=== PATIENT | female | born 1945 | race Caucasian/White ===

== ENCOUNTER → 2018-12-03 09:30 | Outpatient (CLI) | payer MEDICARE, BC, SELFPAY ==
--- NOTE | 2018-10-22 13:45 | EKG12_ITS ---
Test Reason : Blood Pressure : / mmHG Vent. Rate : 061 BPM Atrial Rate : 061 BPM P-R Int : 154 ms QRS Dur : 086 ms QT Int : 428 ms P-R-T Axes : 049 -23 -03 degrees QTc Int : 430 ms Normal sinus rhythm Inferior infarct , age undetermined Abnormal ECG Confirmed by JUAN LIVE, REN ([id number]), film editor DANIEL GAFFNEY ([id number]) on 10/24/2018 11:15:56 AM Referred By: Jacob Stinson Confirmed By:REN MARTINEZ MD
[2018-10-22 13:48] VITALS: BP 129/63; PULSE 65; RESP 18; TEMP 36.5; O2SAT 98; BMI 32.3
[2018-10-22 14:23] LABS: Absolute Lymphocyte Count 1.92 X10^3/ul (0.83-4.51); Absolute Neutrophil Count 3.3 X10^3/uL (2.0-7.7); Basophil# 0.02 X10^3/uL; Basophil% 0.3 % (0-1); Eosinophil# 0.13 X10^3/uL; Eosinophils% 2.2 % (0-5); Hematocrit 31.5 % (37-47); Hemoglobin 9.5 g/dl (12.0-15.0); Lymphocyte # 1.92 X10^3/ul (4.0); Lymphocyte % 32.9 % (19-41); Mean Corp Hgb Conc 30.2 g/gl (32-36); Mean Corpuscular Hgb 23.2 pg (27.0-32.0); Mean Corpuscular Volume 76.8 fL (81-99); Mean Platelet Vol. 9.3 fl (6.2-12.0); Monocyte# 0.49 X10^3/uL; Monocyte% 8.4 % (0-10); Neutrophil # 3.27 X10^3/uL (2.7-7.7); Neutrophil % 56.2 % (47-70); Platelet Count 324 K/mm3 (150-450); RBC Distribution Width CV 16.8 % (11.6-14.6); RBC Distribution Width SD 47.4 fl (35.1-43.9); White Blood Count 5.8 K/mm3 (4.4-11.0)
[2018-10-22 14:24] LABS: POSITIVE COUNT NO; POSITIVE DIFFERENTIAL NO; POSITIVE MORPHOLOGY NO
[2018-10-22 14:38] LABS: Hemoglobin A1c 8.4 % (4.2-6.3)
[2018-10-22 15:02] LABS: Anion Gap 8 (5-15); BUN 19 mg/dL (7-18); BUN/Creat Ratio 22.2 RATIO (10-20); Calcium,Total 8.9 mg/dL (8.5-10.1); Chloride 107 mmol/L (98-107); Creatinine, Serum 0.86 mg/dL (0.55-1.02); EST Glomerular Filtration Rate 69 mL/min (>60); Est Glom Filt Rate - Afr Amer 84 mL/min (>60); Glucose 96 mg/dL (74-106); Potassium 4.6 mmol/L (3.5-5.1); Sodium Level 139 mmol/L (136-145)
--- NOTE | 2018-11-07 10:27 | CASEMGMT ---
Attempted to contact patient to discuss discharge needs after upcoming surgery. No answer on cell phone, voicemail left asking for a call back. Alberta Charles LPN Clinical Support
--- NOTE | 2018-11-07 10:35 | CASEMGMT ---
Patient returned call regarding upcoming surgery. Per patient, surgery was canceled yesterday. Alberta Charles LPN Clinical Support
== END ==
PROVIDERS: Anesthesiology; Family Provider Family Medicine; PCP Family Medicine; Referring Provider Orthopaedic Surgery; Visit Provider Orthopaedic Surgery
DX: Z01.818 Encounter for other preprocedural examination (principal); Z53.9 Procedure and treatment not carried out, unspecified reason
CPT/HCPCS: 80048; 83036; 84443; 85025; 87081; 93005

== ENCOUNTER → 2019-01-27 12:42 | Outpatient (CLI) | payer MEDICARE, BC, SELFPAY ==
[2018-10-22 13:48] VITALS: BMI 32.3
--- NOTE | 2019-01-27 12:55 | MRI_ITS ---
STUDY: MRI LUMBAR SPINE WITHOUT CONTRAST REASON FOR EXAM: Female, 73 years old. Low back pain x50 years. TECHNIQUE: Standardized fat and water weighted pulse sequences were obtained in the sagittal and axial planes. COMPARISON: None FINDINGS: T11-T12: (Sagittal only). Minimal anterior wedging of T11 superior endplate. Minimal anterior marginal spurs. Normal T11 inferior endplate and T12 superior endplate. Mild disc space height narrowing. Tiny posterior bulging disc. Mild central canal stenosis with an AP canal diameter of 8.6 mm. Normal bilateral intervertebral foramina. T12-L1: (Sagittal only). Minimal anterior marginal spurs. Normal endplates. Mild disc space height narrowing. Normal central canal and bilateral intervertebral neural foramina. Normal lumbar lordosis. There is no substantial scoliosis. Normal conus medullaris that terminates at the mid L1 vertebral body level. L1-2: Normal endplates. Normal disc height and morphology. Normal central canal and bilateral arm recesses. Mild bilateral degenerative facet arthropathy. Normal bilateral intervertebral neural foramina. Benign focal fatty infiltration of the L1 and L2 vertebral bodies. L2-3: Normal endplates. Normal disc height and morphology. Normal central canal and bilateral lateral recesses. Mild asymmetric degenerative facet arthropathy, left greater than right. Normal bilateral intervertebral neural foramina. L3-4: Normal endplates. Moderately pronounced disc space height narrowing. Normal central canal. Moderate asymmetric degenerative facet arthropathy. Normal bilateral intervertebral neural foramina. L4-5: Normal endplates. Mild disc space height narrowing. Postsurgical absence of the spinous processes and lamina. Normal central canal and bilateral lateral recesses. Mild asymmetric degenerative facet arthropathy. Normal bilateral intervertebral foramina. L5-S1: Normal endplates. Moderate disc space height narrowing. Normal central canal and bilateral lateral recesses. Mild degenerative facet arthropathy. Normal bilateral intervertebral neural foramina. Normal visualized sacral ala. Normal visualized paraspinous soft tissue structures. MRI/Spine Lumbar (Routine) IMPRESSION: 1. No MRI evidence of lumbar extruded disc fragment, spinal stenosis or nerve root displacement. 2. Moderately pronounced L5 3 L4 degenerative disc space height narrowing and moderate asymmetric degenerative facet arthropathy. 3. Mild L4-L5 disc space height narrowing with postsurgical absence of the spinous processes and lamina. 4. Mild asymmetric degenerative facet arthropathy of the L4-L5 and L5-S1 facet joints. Electronically Signed: Connor Granados MD at 15:48 EDT , Service support ,
== END ==
PROVIDERS: Family Provider Family Medicine; PCP Family Medicine; Referring Provider Anesthesiology Pain Medicine; Visit Provider Anesthesiology Pain Medicine
DX: M54.9 Dorsalgia, unspecified (principal); R29.898 Other symptoms and signs involving the musculoskeletal system
CPT/HCPCS: 72148

== ENCOUNTER → 2019-02-05 09:57 | Outpatient (CLI) | payer MEDICARE, BC, SELFPAY ==
[2018-10-22 13:48] VITALS: BMI 32.3
[2019-02-05 11:30] LABS: Absolute Neutrophil Count 4.3 X10^3/uL (2.0-7.7); Basophil# 0.01 X10^3/uL; Basophil% 0.2 % (0-1); Eosinophil# 0.13 X10^3/uL; Hematocrit 38.4 % (37-47); Hemoglobin 12.1 g/dl (12.0-15.0); Lymphocyte % 25.6 % (19-41); Mean Corp Hgb Conc 31.5 g/gl (32-36); Mean Corpuscular Hgb 25.9 pg (27.0-32.0); Mean Corpuscular Volume 82.1 fL (81-99); Mean Platelet Vol. 10.2 fl (6.2-12.0); Monocyte# 0.49 X10^3/uL; Monocyte% 7.4 % (0-10); Neutrophil # 4.31 X10^3/uL (2.7-7.7); Neutrophil % 64.6 % (47-70); Platelet Count 299 K/mm3 (150-450); RBC Distribution Width SD 53.5 fl (35.1-43.9); Red Blood Count 4.68 M/mm3 (4.2-5.4); White Blood Count 6.7 K/mm3 (4.4-11.0)
[2019-02-05 11:31] LABS: POSITIVE COUNT NO; POSITIVE DIFFERENTIAL NO; POSITIVE MORPHOLOGY NO
[2019-02-05 11:51] LABS: Anion Gap 3 (5-15); BUN 20 mg/dL (7-18); BUN/Creat Ratio 21.1 RATIO (10-20); Calcium,Total 9.3 mg/dL (8.5-10.1); Chloride 104 mmol/L (98-107); Creatinine, Serum 0.95 mg/dL (0.55-1.02); EST Glomerular Filtration Rate 61 mL/min (>60); Est Glom Filt Rate - Afr Amer 74 mL/min (>60); Glucose 133 mg/dL (74-106); Potassium 4.8 mmol/L (3.5-5.1); Sodium Level 136 mmol/L (136-145)
== END ==
PROVIDERS: Family Provider Family Medicine; PCP Family Medicine; Referring Provider Physician Assistant Surgical; Visit Provider Physician Assistant Surgical
DX: Z01.818 Encounter for other preprocedural examination (principal)
CPT/HCPCS: 36415; 80048; 85025

== ENCOUNTER → 2019-02-25 14:33 | Outpatient (CLI) | payer MEDICARE, BC, SELFPAY ==
[2018-10-22 13:48] VITALS: BMI 32.3
[2019-02-25 16:06] LABS: Absolute Neutrophil Count 4.8 X10^3/uL (2.0-7.7); Basophil# 0.02 X10^3/uL; Basophil% 0.3 % (0-1); Eosinophil# 0.17 X10^3/uL; Eosinophils% 2.4 % (0-5); Hematocrit 32.3 % (37-47); Lymphocyte % 21.3 % (19-41); Mean Corpuscular Hgb 26.6 pg (27.0-32.0); Mean Corpuscular Volume 85.9 fL (81-99); Mean Platelet Vol. 9.8 fl (6.2-12.0); Monocyte# 0.55 X10^3/uL; Monocyte% 7.8 % (0-10); NRBC Flagged by Analyzer 0 % (0-5); Neutrophil # 4.75 X10^3/uL (2.7-7.7); Neutrophil % 67.6 % (47-70); Platelet Count 371 K/mm3 (150-450); RBC Distribution Width CV 16.6 % (11.6-14.6); Red Blood Count 3.76 M/mm3 (4.2-5.4)
[2019-02-25 17:10] LABS: Erythrocyte Sedimentation Rate 27 mm/hr (0-30)
== END ==
PROVIDERS: Family Provider Family Medicine; PCP Family Medicine; Referring Provider Specialist; Visit Provider Specialist
DX: Z96.652 Presence of left artificial knee joint (principal)
CPT/HCPCS: 36415; 85025; 85652; 86140

== ENCOUNTER 2019-03-04 09:00 | Outpatient (RCR) | payer MEDICARE, BC, SELFPAY ==
[2018-10-22 13:48] VITALS: BMI 32.3
--- NOTE | 2019-02-21 13:09 | HP.PTEVAL ---
Patient's Visit Information YUNG HERNANDEZ is a 73 year old F referred to Physical Therapy by CAM Copeland with a diagnosis of L TKR s/p 02-18-19. Date of Evaluation: 02/21/19 Physical Therapist: SELVIN Rao - Visit Plan Frequency: 3x /Week Duration: 2 Months Plan: 3X/ week for 8 weekd for L knee AROM, stretching , strengthening, gait training, stairs, transfers, and functional monility with HEP and ice as needed. - Subjective Findings: Pt had surgery last Sunday02-18-19. She got out of the hospital on the . Dr Ramsey did the surgery. She is back home. [place] in a [place] with a finished basement. She has 3 steps into the home with a railing. SHe is managing that fine at home. Transfers out of a chair are a little difficult. She took 2 oxy at 11:20. Her sister is staying with her for awhile. She is doing exercises at home QS, GS, AP's. She has not done the heels slides yet or leg hang down. - Pain L knee pain Pain Intensity (Out of 10): 6 - Objective Observation: pt looks very pale and is tired... thought she had some low blood sugar and ate some smarties during the eval. Sit to stand: pt uses B UE's and kicks her L leg out to stand up. L knee ext -6 from full extension. L knee flexion 60 degrees. Gait: walks with a rolling walker with decreased step length on the L and decreased heel to toe gait pattern. Pt is unable to do a SLR indep... needs mod A to help. Supine to sit: mod A for L LE and for trunk. Nu-step L1 X 10 min to increase ROM - Goals Goal 1:: I HEP Goal Time Frame: 6-8 Weeks Goal 2:: Be able to walk without an antalgic gait with least restrictive device Goal Time Frame: 6-8 Weeks Goal 3:: Increase L knee AROM 0-120 degrees L knee flexion Goal Time Frame: 6-8 Weeks Goal 4:: Be able to go up and down the stairs with 1 hand rail recip motion with SBA Goal Time Frame: 6-8 Weeks - Rehabilitation Potential Rehabilitation Potential: Good - Anticipated Interventions Thank you for the opportunity to evaluate your patient. For Medicare and Medicare HMO plans, please review the plan of care and approve it. It will need to be FAXED BACK to us at [phone] for Medicare purposes. For Medicare only, by signing this I certify the plan of care. Please let me know if there are questions or concerns regarding this plan of care. Physician Signature: Date:
--- NOTE | 2019-05-27 11:10 | HP.PTDCSUM ---
HP - PT D/C Summary It has been my pleasure to treat YUNG HERNANDEZ under orders from Srini Navarrete PA-C, for the diagnosis of L TKR s/p 02-18-19 for a total of 4 visit(s). Discharge Date: 05/27/19 Please see the following information for a summary of their discharge status. - Subjective Subjective: Pt reports that she has 1-2 days of her antibiotic yet. Saw PA yesterday and he was not concerned about the infection. Pt icing at home regularly. - Pain L knee pain Pain Intensity (Out of 10): 3 - Objective Objective/Function: Pt is still very red along incisions. Very warm to touch. Encouraged pt to watch/monitor this area closely and call doctor when out of antibiotic if redness/heat remain. Pt is progressing well w/no pain during PT. Pt amb w/walker in dept. Sometimes using cane at home. Reviewed proper cane use and proper heel to toe gait pattern w/pt. Pt is measuring greater than 90 degrees flexion. Doing well. - Goals Goal 1:: I HEP Goal 2:: Be able to walk without an antalgic gait with least restrictive device Goal 3:: Increase L knee AROM 0-120 degrees L knee flexion Goal 4:: Be able to go up and down the stairs with 1 hand rail recip motion with SBA - Plan Plan: Pt is switching PT depts to [facility] d/t her sister going to [facility] for therapy as well and can give pt a ride if they schedule together. 3X/ week for 8 weekd for L knee AROM, stretching , strengthening, gait training, stairs, transfers, and functional monility with HEP and ice as needed. - D/C Information Discharge Comments: DC PT If there are questions or concerns regarding this patient's physical therapy, please feel free to call me at [phone]. Thank you for the referral of this patient. Sincerely, Alyson Leal, MPT
== END 2019-03-04 19:00 | disposition home or self-care (01) ==
LOC: PT 09:00
PROVIDERS: Family Provider Family Medicine; PCP Family Medicine; Referring Provider Physician Assistant Surgical; Visit Provider Physician Assistant Surgical
DX: M17.12 Unilateral primary osteoarthritis, left knee (principal); M21.162 Varus deformity, not elsewhere classified, left knee
CPT/HCPCS: 97110; 97161

== ENCOUNTER → 2020-04-27 16:06 | Outpatient (CLI) | payer MEDICARE, BC, SELFPAY ==
[2018-10-22 13:48] VITALS: BMI 32.3
[2020-04-27 17:08] LABS: Absolute Lymphocyte Count 2.14 X10^3/uL (0.83-4.51); Absolute Neutrophil Count 3.6 X10^3/uL (2.0-7.7); Basophil# 0.03 X10^3/uL; Basophil% 0.5 % (0-1); Eosinophil# 0.16 X10^3/uL; Eosinophils% 2.5 % (0-5); Hematocrit 38.6 % (37-47); Hemoglobin 12.3 g/dL (12.0-15.0); Lymphocyte # 2.14 X10^3/ul (4.0); Lymphocyte % 33.4 % (19-41); Mean Corp Hgb Conc 31.9 g/dL (32-36); Mean Corpuscular Hgb 27.4 pg (27.0-32.0); Mean Platelet Vol. 9.7 fl (6.2-12.0); Monocyte# 0.46 X10^3/uL; Monocyte% 7.2 % (0-10); NRBC Flagged by Analyzer 0 % (0-5); Neutrophil % 56.1 % (47-70); Platelet Count 349 K/mm3 (150-450); RBC Distribution Width CV 13.5 % (11.6-14.6); RBC Distribution Width SD 42.2 fl (35.1-43.9); Red Blood Count 4.49 M/mm3 (4.2-5.4); White Blood Count 6.4 K/mm3 (4.4-11.0)
[2020-04-27 17:40] LABS: AST(SGOT) 13 U/L (15-37); Alanine Aminotransfer ALT/SGPT 25 U/L (13-56); Albumin, Serum 3.5 g/dL (3.2-5.0); Alkaline Phosphatase 58 U/L (45-117); Anion Gap 5 (5-15); BUN 17 mg/dL (7-18); BUN/Creat Ratio 16.2 RATIO (10-20); Calcium,Total 9.6 mg/dL (8.5-10.1); Chloride 107 mmol/L (98-107); Creatinine, Serum 1.05 mg/dL (0.55-1.02); EST Glomerular Filtration Rate 55 mL/min (>60); Est Glom Filt Rate - Afr Amer 66 mL/min (>60); Globulin 3.6 g/dL (2.2-4.2); Glucose 72 mg/dL (74-106); Potassium 4.4 mmol/L (3.5-5.1); Protein, Total 7.1 g/dL (6.4-8.2); Sodium Level 139 mmol/L (136-145); Thyroid Stim Hormone (TSH) 1.35 uIU/mL (0.358-3.74)
[2020-04-28 09:14] LABS: Hepatitis C Antibody Non-Reactive (Nonreactive); Vitamin D,25 Hydroxy 62.8 ng/mL
== END ==
PROVIDERS: Visit Provider Family Medicine Geriatric Medicine
DX: E11.9 Type 2 diabetes mellitus without complications (principal); I10 Essential (primary) hypertension; E55.9 Vitamin D deficiency, unspecified; Z13.89 Encounter for screening for other disorder
CPT/HCPCS: 36415; 80053; 82306; 84443; 85025; 86803

== ENCOUNTER → 2020-07-22 16:54 | Outpatient (CLI) | payer MEDICARE, BC, SELFPAY ==
--- NOTE | 2020-07-22 16:58 | MRI_ITS ---
STUDY: MRI CERVICAL SPINE WITHOUT CONTRAST REASON FOR EXAM: Female, 75 years old. L neck pain into head TECHNIQUE: Standardized fat and water weighted pulse sequences were obtained in the sagittal and axial planes. COMPARISON: X-ray dated 05/24/2020. FINDINGS: Normal foramen magnum and brainstem-cervical cord junction. Normal cervical lordosis. C2-3: There is minimal disc space narrowing and endplate spondylosis. There is no significant disc herniation, central canal or foraminal stenosis. C3-4: There is mild disc space narrowing and endplate spondylosis. There is mild disc osteophyte complex with mild central canal stenosis. Uncovertebral and facet arthropathy with mild right and mild left foraminal stenosis. C4-5: There is moderate disc space narrowing and endplates spondylosis. Mild disc osteophyte complex with mild central canal stenosis. Uncovertebral arthropathy with moderate right and moderate left foraminal stenosis. C5-6: There is moderate disc space narrowing and endplates spondylosis. Moderate disc osteophyte complex with moderate central canal stenosis. Uncovertebral arthropathy with mild right and moderate left foraminal stenosis. C6-7: There is mild disc space narrowing and endplates spondylosis. Mild disc osteophyte complex with mild central canal stenosis. Uncovertebral arthropathy with mild right and minimal left foraminal stenosis. C7-T1: There is minimal disc space narrowing and endplate spondylosis. There is no significant disc herniation, central canal or foraminal stenosis. There is 1 cm hemangioma at T1. Normal cervical cord. MRI/Spine Cervical (Routine) IMPRESSION: C4/C5: Moderate right and moderate left foraminal status. C5/C6: Moderate central canal stenosis. Moderate left foraminal stenosis. Electronically Signed: Emerson Najera MD at 12:06 EST Tel , Service support ,
== END ==
PROVIDERS: PCP Family Medicine Geriatric Medicine; Referring Provider Anesthesiology Pain Medicine; Visit Provider Anesthesiology Pain Medicine
DX: M54.2 Cervicalgia (principal); R51.9 Headache, unspecified
CPT/HCPCS: 72141

== ENCOUNTER → 2020-07-28 13:23 | Outpatient (CLI) | payer MEDICARE, BC, SELFPAY ==
[2020-07-28 17:35] LABS: Absolute Lymphocyte Count 1.88 X10^3/uL (0.83-4.51); Basophil# 0.02 X10^3/uL; Basophil% 0.4 % (0-1); Eosinophil# 0.18 X10^3/uL; Eosinophils% 3.3 % (0-5); Hematocrit 38.8 % (37-47); Hemoglobin 12.1 g/dL (12.0-15.0); Lymphocyte # 1.88 X10^3/ul (4.0); Lymphocyte % 34.5 % (19-41); Mean Corp Hgb Conc 31.2 g/dL (32-36); Mean Corpuscular Hgb 27.9 pg (27.0-32.0); Mean Corpuscular Volume 89.4 fL (81-99); Mean Platelet Vol. 10.3 fl (6.2-12.0); Monocyte# 0.38 X10^3/uL; NRBC Flagged by Analyzer 0 % (0-5); Neutrophil # 2.98 X10^3/uL (2.7-7.7); Neutrophil % 54.6 % (47-70); Platelet Count 312 K/mm3 (150-450); RBC Distribution Width SD 45.5 fl (35.1-43.9); Red Blood Count 4.34 M/mm3 (4.2-5.4); White Blood Count 5.5 K/mm3 (4.4-11.0)
[2020-07-28 17:47] LABS: Vitamin D,25 Hydroxy 59.5 ng/mL
[2020-07-28 17:55] LABS: ALB/GLOB Ratio 1.1 RATIO (0.9-2.4); AST(SGOT) 9 U/L (15-37); Alanine Aminotransfer ALT/SGPT 23 U/L (13-56); Albumin, Serum 3.5 g/dL (3.2-5.0); Alkaline Phosphatase 53 U/L (45-117); Anion Gap 6 (5-15); BUN 21 mg/dL (7-18); BUN/Creat Ratio 23.1 RATIO (10-20); Calcium,Total 9.3 mg/dL (8.5-10.1); Chloride 105 mmol/L (98-107); Creatinine, Serum 0.91 mg/dL (0.55-1.02); EST Glomerular Filtration Rate 64 mL/min (>60); Est Glom Filt Rate - Afr Amer 78 mL/min (>60); Globulin 3.1 g/dL (2.2-4.2); Glucose 104 mg/dL (74-106); Potassium 4.5 mmol/L (3.5-5.1); Protein, Total 6.6 g/dL (6.4-8.2); Sodium Level 141 mmol/L (136-145); Thyroid Stim Hormone (TSH) 1.24 uIU/mL (0.358-3.74)
== END ==
PROVIDERS: PCP Family Medicine Geriatric Medicine; Visit Provider Family Medicine Geriatric Medicine
DX: E11.65 Type 2 diabetes mellitus with hyperglycemia (principal); I10 Essential (primary) hypertension; E55.9 Vitamin D deficiency, unspecified
CPT/HCPCS: 36415; 80053; 82306; 84443; 85025

== ENCOUNTER → 2020-10-26 15:59 | Outpatient (CLI) | payer MEDICARE, BC, SELFPAY ==
[2020-10-26 17:06] LABS: Absolute Lymphocyte Count 1.87 X10^3/uL (0.83-4.51); Absolute Neutrophil Count 3.7 X10^3/uL (2.0-7.7); Basophil# 0.04 X10^3/uL; Basophil% 0.6 % (0-1); Eosinophil# 0.24 X10^3/uL; Eosinophils% 3.8 % (0-5); Hematocrit 38.2 % (37-47); Hemoglobin 12.3 g/dL (12.0-15.0); Lymphocyte # 1.87 X10^3/ul (4.0); Lymphocyte % 29.6 % (19-41); Mean Corp Hgb Conc 32.2 g/dL (32-36); Mean Corpuscular Hgb 28.5 pg (27.0-32.0); Mean Corpuscular Volume 88.4 fL (81-99); Mean Platelet Vol. 10.2 fl (6.2-12.0); Monocyte# 0.42 X10^3/uL; Monocyte% 6.6 % (0-10); NRBC Flagged by Analyzer 0 % (0-5); Neutrophil # 3.73 X10^3/uL (2.7-7.7); Neutrophil % 59.1 % (47-70); Platelet Count 333 K/mm3 (150-450); RBC Distribution Width CV 13.6 % (11.6-14.6); RBC Distribution Width SD 44.3 fl (35.1-43.9); Red Blood Count 4.32 M/mm3 (4.2-5.4); White Blood Count 6.3 K/mm3 (4.4-11.0)
[2020-10-26 17:17] LABS: Vitamin D,25 Hydroxy 54.3 ng/mL
[2020-10-26 17:26] LABS: AST(SGOT) 11 U/L (15-37); Alanine Aminotransfer ALT/SGPT 24 U/L (13-56); Albumin, Serum 3.3 g/dL (3.2-5.0); Alkaline Phosphatase 51 U/L (45-117); Anion Gap 7 (5-15); BUN 19 mg/dL (7-18); BUN/Creat Ratio 17.9 RATIO (10-20); Calcium,Total 9.2 mg/dL (8.5-10.1); Chloride 104 mmol/L (98-107); Creatinine, Serum 1.06 mg/dL (0.55-1.02); EST Glomerular Filtration Rate 54 mL/min (>60); Est Glom Filt Rate - Afr Amer 65 mL/min (>60); Globulin 3.4 g/dL (2.2-4.2); Glucose 150 mg/dL (74-106); Potassium 4.3 mmol/L (3.5-5.1); Protein, Total 6.7 g/dL (6.4-8.2); Sodium Level 138 mmol/L (136-145); Thyroid Stim Hormone (TSH) 0.93 uIU/mL (0.358-3.74)
== END ==
PROVIDERS: PCP Family Medicine Geriatric Medicine; Visit Provider Family Medicine Geriatric Medicine
DX: E11.65 Type 2 diabetes mellitus with hyperglycemia (principal); I10 Essential (primary) hypertension; E55.9 Vitamin D deficiency, unspecified
CPT/HCPCS: 36415; 80053; 82306; 84443; 85025

== ENCOUNTER → 2020-12-20 12:05 | Outpatient (CLI) | payer MEDICARE, BC, SELFPAY ==
--- NOTE | 2020-12-20 12:15 | RAD_ITS ---
STUDY: X-RAY - CERVICAL SPINE REASON FOR EXAM: Female, 75 years old. FALL/NECK PAIN TECHNIQUE: 3 view(s) of the cervical spine were obtained. COMPARISON: None FINDINGS: Normal anterior atlantoaxial articulation. Normal odontoid process. There is straightening of the normal cervical lordosis. There is multi-level endplate spondylosis. There is multi-level degenerative disc disease with multilevel disc space narrowing. Normal visualized intervertebral neuroforamina. There are atherosclerotic vascular calcifications of the carotid arteries. RAD/Cerv Spine 2 or 3 Views IMPRESSION: Straightening of the normal cervical lordosis. Multilevel disc space narrowing and spondylosis. Electronically Signed: Romie Suárez MD at 12:41 EDT , Service support ,
== END ==
PROVIDERS: PCP Family Medicine Geriatric Medicine; Referring Provider Anesthesiology Pain Medicine; Visit Provider Anesthesiology Pain Medicine
DX: M54.2 Cervicalgia (principal); W19.XXXA Unspecified fall, initial encounter
CPT/HCPCS: 72040

== ENCOUNTER → 2020-12-24 10:31 | Outpatient (CLI) | payer MEDICARE, BC, SELFPAY ==
[2020-12-24 12:23] LABS: Absolute Lymphocyte Count 1.57 X10^3/uL (0.83-4.51); Absolute Neutrophil Count 5.9 X10^3/uL (2.0-7.7); Basophil# 0.03 X10^3/uL; Basophil% 0.4 % (0-1); Eosinophil# 0.07 X10^3/uL; Eosinophils% 0.9 % (0-5); Hematocrit 39.4 % (37-47); Hemoglobin 12.3 g/dL (12.0-15.0); Lymphocyte # 1.57 X10^3/ul (0.83-4.51); Lymphocyte % 19.4 % (19-41); Mean Corp Hgb Conc 31.2 g/dL (32-36); Mean Corpuscular Hgb 28.3 pg (27.0-32.0); Mean Corpuscular Volume 90.8 fL (81-99); Mean Platelet Vol. 9.5 fl (6.2-12.0); Monocyte# 0.51 X10^3/uL; Monocyte% 6.3 % (0-10); NRBC Flagged by Analyzer 0 % (0-5); Neutrophil # 5.88 X10^3/uL (2.7-7.7); Neutrophil % 72.8 % (47-70); Platelet Count 365 K/mm3 (150-450); RBC Distribution Width CV 14.2 % (11.6-14.6); Red Blood Count 4.34 M/mm3 (4.2-5.4); White Blood Count 8.1 K/mm3 (4.4-11.0)
[2020-12-24 12:47] LABS: AST(SGOT) 12 U/L (15-37); Alanine Aminotransfer ALT/SGPT 23 U/L (13-56); Albumin, Serum 3.5 g/dL (3.2-5.0); Alkaline Phosphatase 50 U/L (45-117); Anion Gap 7 (5-15); BUN 20 mg/dL (7-18); BUN/Creat Ratio 18.5 RATIO (10-20); Calcium,Total 9.4 mg/dL (8.5-10.1); Chloride 102 mmol/L (98-107); Creatinine, Serum 1.08 mg/dL (0.55-1.02); EST Glomerular Filtration Rate 53 mL/min (>60); Est Glom Filt Rate - Afr Amer 64 mL/min (>60); Globulin 3.6 g/dL (2.2-4.2); Glucose 121 mg/dL (74-106); Protein, Total 7.1 g/dL (6.4-8.2); Sodium Level 138 mmol/L (136-145); Thyroid Stim Hormone (TSH) 0.83 uIU/mL (0.358-3.74)
== END ==
PROVIDERS: PCP Family Medicine Geriatric Medicine; Visit Provider Family Medicine Geriatric Medicine
DX: N39.0 Urinary tract infection, site not specified (principal); R53.1 Weakness
CPT/HCPCS: 36415; 80053; 84443; 85025; 87077; 87086; 87088; 87186

== ENCOUNTER → 2020-12-24 11:55 | Outpatient (CLI) | payer MEDICARE, BC, SELFPAY ==
--- NOTE | 2020-12-24 11:58 | CT_ITS ---
STUDY: CT BRAIN WITHOUT CONTRAST REASON FOR EXAM: Female, 75 years old. HEAD INJURY RADIATION DOSAGE (If Supplied By Facility): CTDIvol = ( 44.99 ) mGy, DLP = ( 796.11 ) mGycm TECHNIQUE: Transaxial CT imaging of the brain was performed without administration of intravenous contrast material. Individualized dose optimization techniques were used for this CT. COMPARISON: No relevant priors. FINDINGS: Normal soft tissue structures. There is a 1.3 cm x 0.8 cm densely calcified nodule arising from the medial aspect of the interhemispheric fissure overlying the high right parietal lobe suggests a possible meningioma. There is mild cerebral atrophy with widening of the extra-axial spaces and ventricular dilatation. There are areas of decreased attenuation within the white matter tracts of the supratentorial brain, consistent with microvascular disease changes. Normal basal ganglia and thalami. Normal brainstem. Normal cerebellum. There is no intracranial hemorrhage. There are no findings of an acute ischemic infarction. Normal visualized paranasal sinuses. CT/Brain/Head without Contrast IMPRESSION: Chronic involutional changes of the brain. Findings suggestive of a 1.3 cm x 0.8 cm meningioma arising from the medial aspect of the interhemispheric fissure. Electronically Signed: Romie Suárez MD at 12:15 EDT , Service support ,
--- NOTE | 2020-12-24 11:59 | RAD_ITS ---
STUDY: X-RAY - CERVICAL SPINE REASON FOR EXAM: Female, 75 years old. HEAD INJURY TECHNIQUE: 3 view(s) of the cervical spine were obtained. COMPARISON: 05/24/2020 FINDINGS: Normal anterior atlantoaxial articulation. Normal odontoid process. There is straightening of the normal cervical lordosis. There is multi-level endplate spondylosis. There is multi-level degenerative disc disease with multilevel disc space narrowing. Normal visualized intervertebral neuroforamina. The soft tissue structures are unremarkable. RAD/Cerv Spine 2 or 3 Views IMPRESSION: Moderate degenerative disc disease with straightening of the normal lordotic curvature. MRI may be useful. Electronically Signed: Brad Carranza MD at 16:54 EDT Tel , Service support ,
== END ==
PROVIDERS: PCP Family Medicine Geriatric Medicine; Referring Provider Family Medicine Geriatric Medicine; Visit Provider Family Medicine Geriatric Medicine
DX: M54.2 Cervicalgia (principal); S09.90XA Unspecified injury of head, initial encounter; X58.XXXA Exposure to other specified factors, initial encounter; Y93.9 Activity, unspecified; Y92.9 Unspecified place or not applicable; Y99.9 Unspecified external cause status; N39.0 Urinary tract infection, site not specified; R53.1 Weakness
CPT/HCPCS: 36415; 70450; 72040; 80053; 84443; 85025; 87077; 87086; 87088; 87186

== ENCOUNTER → 2021-04-28 17:29 | Outpatient (CLI) | payer MEDICARE, BC, SELFPAY ==
[2021-04-28 17:44] LABS: Absolute Lymphocyte Count 2.65 X10^3/uL (0.83-4.51); Absolute Neutrophil Count 4.5 X10^3/uL (2.0-7.7); Basophil# 0.04 X10^3/uL; Basophil% 0.5 % (0-1); Eosinophil# 0.25 X10^3/uL; Eosinophils% 3.1 % (0-5); Hemoglobin 12.8 g/dL (12.0-15.0); Lymphocyte # 2.65 X10^3/ul (0.83-4.51); Lymphocyte % 32.8 % (19-41); Mean Corpuscular Hgb 27.9 pg (27.0-32.0); Mean Corpuscular Volume 87.1 fL (81-99); Mean Platelet Vol. 9.6 fl (6.2-12.0); Monocyte# 0.66 X10^3/uL; Monocyte% 8.2 % (0-10); NRBC Flagged by Analyzer 0 % (0-5); Neutrophil # 4.47 X10^3/uL (2.7-7.7); Neutrophil % 55.2 % (47-70); Platelet Count 319 K/mm3 (150-450); RBC Distribution Width CV 14.5 % (11.6-14.6); RBC Distribution Width SD 45.7 fl (35.1-43.9); Red Blood Count 4.59 M/mm3 (4.2-5.4); White Blood Count 8.1 K/mm3 (4.4-11.0)
[2021-04-28 18:37] LABS: ALB/GLOB Ratio 0.9 RATIO (0.9-2.4); AST(SGOT) 19 U/L (15-37); Alanine Aminotransfer ALT/SGPT 31 U/L (13-56); Albumin, Serum 3.4 g/dL (3.2-5.0); Alkaline Phosphatase 54 U/L (45-117); Anion Gap 8 (5-15); BUN 27 mg/dL (7-18); BUN/Creat Ratio 21.3 RATIO (10-20); Calcium,Total 9.4 mg/dL (8.5-10.1); Chloride 103 mmol/L (98-107); Creatinine, Serum 1.27 mg/dL (0.55-1.02); EST Glomerular Filtration Rate 44 mL/min (>60); Est Glom Filt Rate - Afr Amer 53 mL/min (>60); Globulin 3.8 g/dL (2.2-4.2); Glucose 118 mg/dL (74-106); Potassium 5.3 mmol/L (3.5-5.1); Protein, Total 7.2 g/dL (6.4-8.2); Sodium Level 135 mmol/L (136-145)
[2021-04-28 18:42] LABS: Vitamin D,25 Hydroxy 72.1 ng/mL
== END ==
PROVIDERS: PCP Family Medicine Geriatric Medicine; Visit Provider Family Medicine Geriatric Medicine
DX: E11.65 Type 2 diabetes mellitus with hyperglycemia (principal); I10 Essential (primary) hypertension; E55.9 Vitamin D deficiency, unspecified
CPT/HCPCS: 36415; 80053; 82306; 84443; 85025

== ENCOUNTER → 2021-05-03 13:36 | Outpatient (CLI) | payer MEDICARE, BC, SELFPAY ==
[2021-05-03 16:46] LABS: Anion Gap 8 (5-15); BUN 17 mg/dL (7-18); BUN/Creat Ratio 14.9 RATIO (10-20); Calcium,Total 9.5 mg/dL (8.5-10.1); Chloride 101 mmol/L (98-107); Creatinine, Serum 1.14 mg/dL (0.55-1.02); EST Glomerular Filtration Rate 49 mL/min (>60); Est Glom Filt Rate - Afr Amer 60 mL/min (>60); Glucose 165 mg/dL (74-106); Potassium 3.9 mmol/L (3.5-5.1); Sodium Level 136 mmol/L (136-145)
== END ==
PROVIDERS: PCP Family Medicine Geriatric Medicine; Visit Provider Family Medicine Geriatric Medicine
DX: I10 Essential (primary) hypertension (principal)
CPT/HCPCS: 36415; 80048

== ENCOUNTER → 2021-07-14 11:37 | Outpatient (CLI) | payer MEDICARE, BC, SELFPAY ==
[2021-07-14 12:51] LABS: Albumin, Serum 3.4 g/dL (3.2-5.0); BUN 22 mg/dL (7-18); BUN/Creat Ratio 22.6 RATIO (10-20); Calcium,Total 9.6 mg/dL (8.5-10.1); Chloride 102 mmol/L (98-107); Creatinine, Serum 0.97 mg/dL (0.55-1.02); EST Glomerular Filtration Rate 59 mL/min (>60); Est Glom Filt Rate - Afr Amer 72 mL/min (>60); Glucose 191 mg/dL (74-106); Phosphorus 3.6 mg/dL (2.5-4.9); Potassium 4.3 mmol/L (3.5-5.1); Sodium Level 136 mmol/L (136-145)
[2021-07-14 13:05] LABS: Protein, Urine (Random) 13.8 mg/dL (<11.9); Protein:Creat Ratio 96 mg/g CRE (0-200)
== END ==
PROVIDERS: PCP Family Medicine Geriatric Medicine; Visit Provider Internal Medicine Nephrology
DX: N18.31 Chronic kidney disease, stage 3a (principal)
CPT/HCPCS: 36415; 80069; 82570; 84156

== ENCOUNTER → 2021-07-25 14:21 | Outpatient (CLI) | payer MEDICARE, BC, SELFPAY ==
--- NOTE | 2021-07-25 14:25 | US_ITS ---
STUDY: RENAL ULTRASOUND - COMPLETE REASON FOR EXAM: Female, 76 years old. CKD 3 TECHNIQUE: Ultrasound evaluation of the kidneys was performed with real-time and static das-scale imaging. COMPARISON: None. FINDINGS: RIGHT KIDNEY: Normal location of the right kidney, which is normal in size. The right kidney measures 11.1x5.9 cm. There is a normal cortex of the right kidney. The renal cortex measures 1.2 cm. There is no right renal mass or cyst. There are no right renal calculi. There is no right hydronephrosis. DISTAL RIGHT URETER: There is non-visualization of the distal right ureter. There is no demonstrated right ureterovesical junction calculus. There is no demonstrated right ureteral jet. LEFT KIDNEY: Normal location of the left kidney, which is normal in size. The left kidney measures 11.9x5.1 cm. There is a normal cortex of the left kidney. The renal cortex measures 1.4 cm. There is no left renal mass or cyst. There are no left renal calculi. There is no left hydronephrosis. DISTAL LEFT URETER: There is non-visualization of the distal left ureter. There is no demonstrated left ureterovesical junction calculus. There is no demonstrated left ureteral jet. AORTA: There is obscuration of the abdominal aorta by overlying bowel gas I.V.C.: The IVC is obscured. BLADDER: The distended urinary bladder has a volume of 69 ml. There is a normal wall thickness of the distended urinary bladder. There is no demonstrated mass within the urinary bladder. There are no demonstrated bladder calculi. US/Kidney and Bladder IMPRESSION: There are no acute findings. Electronically Signed: Travis Camargo MD at 15:27 EST , Service support ,
== END ==
PROVIDERS: PCP Family Medicine Geriatric Medicine; Referring Provider Internal Medicine Nephrology; Visit Provider Internal Medicine Nephrology
DX: N18.31 Chronic kidney disease, stage 3a (principal)
CPT/HCPCS: 76770

== ENCOUNTER 2021-09-19 11:24 | Outpatient (CLI) | payer MEDICARE, BC, SELFPAY ==
[2021-09-19 12:28] LABS: Hematocrit 40.3 % (37-47); Hemoglobin 13.3 g/dL (12.0-15.0); Mean Corpuscular Hgb 28.4 pg (27.0-32.0); Mean Corpuscular Volume 86.1 fL (81-99); Mean Platelet Vol. 9.6 fl (6.2-12.0); Platelet Count 330 K/mm3 (150-450); RBC Distribution Width CV 14.1 % (11.6-14.6); RBC Distribution Width SD 43.8 fl (35.1-43.9); Red Blood Count 4.68 M/mm3 (4.2-5.4); White Blood Count 7.1 K/mm3 (4.4-11.0)
[2021-09-19 12:38] LABS: Albumin, Serum 3.6 g/dL (3.2-5.0); BUN 20 mg/dL (7-18); BUN/Creat Ratio 19.8 RATIO (10-20); Calcium,Total 9.8 mg/dL (8.5-10.1); Chloride 103 mmol/L (98-107); Creatinine, Serum 1.01 mg/dL (0.55-1.02); EST Glomerular Filtration Rate 57 mL/min (>60); Est Glom Filt Rate - Afr Amer 69 mL/min (>60); Glucose 184 mg/dL (74-106); Potassium 4.6 mmol/L (3.5-5.1); Sodium Level 137 mmol/L (136-145)
== END 2021-09-19 23:59 | disposition home or self-care (01) ==
LOC: POLAB3 11:25
PROVIDERS: PCP Family Medicine Geriatric Medicine; Visit Provider Internal Medicine Nephrology
DX: E11.22 Type 2 diabetes mellitus with diabetic chronic kidney disease (principal); E11.65 Type 2 diabetes mellitus with hyperglycemia; E11.40 Type 2 diabetes mellitus with diabetic neuropathy, unspecified; N18.31 Chronic kidney disease, stage 3a; Z71.3 Dietary counseling and surveillance
CPT/HCPCS: 36415; 80069; 83970; 85027; 97802

== ENCOUNTER 2021-10-10 11:00 | Outpatient (RCR) | payer MEDICARE, BC, SELFPAY | END 2021-10-10 23:59 | disposition home or self-care (01) | LOC: DC 11:00 | PROVIDERS: PCP Family Medicine Geriatric Medicine; Referring Provider Family Medicine Geriatric Medicine; Visit Provider Family Medicine Geriatric Medicine | DX: E11.65 Type 2 diabetes mellitus with hyperglycemia (principal); E11.22 Type 2 diabetes mellitus with diabetic chronic kidney disease; N18.31 Chronic kidney disease, stage 3a | CPT/HCPCS: 97802; 97803; G0108 ==

== ENCOUNTER 2021-10-20 08:22 | Outpatient (CLI) | payer MEDICARE, BC, SELFPAY ==
--- NOTE | 2021-10-20 08:24 | BI_ITS ---
MAMMOGRAPHY - BILATERAL SCREENING REASON FOR EXAM: Female, 76 years old. Routine annual screening examination. PERTINENT HISTORY: Non-contributory. TECHNIQUE: Digital bilateral breast manpreet (3D mammographic acquisition) in the CC and MLO projections. 2-D mediolateral oblique (MLO) and craniocaudad (CC) views of both breasts were obtained. CAD: Full Field Digital Mammography with Computer Added Detection was performed. COMPARISON: Comparison is made with prior examination dated 02/06/2019 and 03/23/2020. FINDINGS: Breast Composition: The breasts are almost entirely fatty. There are no dominant masses or suspicious calcifications. Stable calcified nodule in the inferior anterior medial aspect of the left breast. There is an 8.2 mm well-defined nodule in the upper central portion of the left breast with peripheral calcification. This is in keeping with a calcifying fibroadenoma. No other significant abnormalities are identified. There has been no significant change since the prior study. BI/SCRN MAMM (CAD)W/MANPREET BILAT IMPRESSION: Stable bilateral screening mammogram. Yearly follow-up mammogram recommended. (A) ASSESSMENT CATEGORY: BIRADS Category 2: Benign. A letter regarding these results will be sent to the patient by the facility within 30 days. Approximately 10% of breast cancers are not detected by mammography. A normal mammogram should not delay biopsy of a clinically suspicious abnormality. [id number] Electronically Signed: Romie Suárez MD at 9:29 EST ,
== END 2021-10-20 23:59 | disposition home or self-care (01) ==
LOC: OPBI 08:23
PROVIDERS: PCP Family Medicine Geriatric Medicine; Referring Provider Family Medicine Geriatric Medicine; Visit Provider Family Medicine Geriatric Medicine
DX: Z12.31 Encounter for screening mammogram for malignant neoplasm of breast (principal)
CPT/HCPCS: 77063; 77067

== ENCOUNTER 2021-10-24 10:24 | Outpatient (RCR) | payer MEDICARE, BC, SELFPAY | END 2021-11-10 23:59 | LOC: DC 10:24 | PROVIDERS: PCP Family Medicine Geriatric Medicine; Referring Provider Family Medicine Geriatric Medicine; Visit Provider Family Medicine Geriatric Medicine | DX: E11.22 Type 2 diabetes mellitus with diabetic chronic kidney disease (principal); E11.65 Type 2 diabetes mellitus with hyperglycemia; N18.31 Chronic kidney disease, stage 3a | CPT/HCPCS: 97803 ==

== ENCOUNTER 2021-10-27 16:00 | Outpatient (CLI) | payer MEDICARE, BC, SELFPAY ==
[2021-10-27 17:26] LABS: Absolute Lymphocyte Count 2.88 X10^3/uL (0.83-4.51); Absolute Neutrophil Count 4.7 X10^3/uL (2.0-7.7); Basophil# 0.03 X10^3/uL; Basophil% 0.4 % (0-1); Eosinophil# 0.14 X10^3/uL; Eosinophils% 1.7 % (0-5); Hematocrit 40.4 % (37-47); Hemoglobin 13.7 g/dL (12.0-15.0); Lymphocyte # 2.88 X10^3/ul (0.83-4.51); Lymphocyte % 34.2 % (19-41); Mean Corp Hgb Conc 33.9 g/dL (32-36); Mean Corpuscular Hgb 29.5 pg (27.0-32.0); Mean Corpuscular Volume 87.1 fL (81-99); Mean Platelet Vol. 10.1 fl (6.2-12.0); Monocyte# 0.66 X10^3/uL; Monocyte% 7.8 % (0-10); NRBC Flagged by Analyzer 0 % (0-5); Neutrophil # 4.68 X10^3/uL (2.7-7.7); Neutrophil % 55.7 % (47-70); Platelet Count 354 K/mm3 (150-450); RBC Distribution Width CV 14.4 % (11.6-14.6); RBC Distribution Width SD 45.9 fl (35.1-43.9); Red Blood Count 4.64 M/mm3 (4.2-5.4); White Blood Count 8.4 K/mm3 (4.4-11.0)
[2021-10-27 17:31] LABS: Vitamin D,25 Hydroxy 67.3 ng/mL
[2021-10-27 17:46] LABS: ALB/GLOB Ratio 1.1 RATIO (0.9-2.4); AST(SGOT) 12 U/L (15-37); Alanine Aminotransfer ALT/SGPT 25 U/L (13-56); Albumin, Serum 3.8 g/dL (3.2-5.0); Alkaline Phosphatase 55 U/L (45-117); Anion Gap 7 (5-15); BUN 19 mg/dL (7-18); BUN/Creat Ratio 17.8 RATIO (10-20); Calcium,Total 9.6 mg/dL (8.5-10.1); Chloride 101 mmol/L (98-107); Creatinine, Serum 1.07 mg/dL (0.55-1.02); EST Glomerular Filtration Rate 53 mL/min (>60); Est Glom Filt Rate - Afr Amer 64 mL/min (>60); Globulin 3.5 g/dL (2.2-4.2); Glucose 88 mg/dL (74-106); Potassium 4.4 mmol/L (3.5-5.1); Protein, Total 7.3 g/dL (6.4-8.2); Sodium Level 136 mmol/L (136-145); Thyroid Stim Hormone (TSH) 6.94 uIU/mL (0.358-3.74)
== END 2021-10-27 23:59 | disposition home or self-care (01) ==
LOC: POLAB3 16:01
PROVIDERS: PCP Family Medicine Geriatric Medicine; Visit Provider Family Medicine Geriatric Medicine
DX: E11.65 Type 2 diabetes mellitus with hyperglycemia (principal); E55.9 Vitamin D deficiency, unspecified; I10 Essential (primary) hypertension
CPT/HCPCS: 36415; 80053; 82306; 84443; 85025

== ENCOUNTER 2021-12-07 11:00 | Outpatient (RCR) | payer MEDICARE, BC, SELFPAY | END 2021-12-10 23:59 | LOC: DC 11:00 | PROVIDERS: PCP Family Medicine Geriatric Medicine; Referring Provider Family Medicine Geriatric Medicine; Visit Provider Family Medicine Geriatric Medicine | DX: E11.22 Type 2 diabetes mellitus with diabetic chronic kidney disease (principal); E11.65 Type 2 diabetes mellitus with hyperglycemia; N18.31 Chronic kidney disease, stage 3a | CPT/HCPCS: G0108 ==

== ENCOUNTER → 2022-02-21 | Outpatient (CLI) | payer MEDICARE, BC, SELFPAY ==
--- NOTE | 2022-02-21 11:37 | RAD_ITS ---
STUDY: X-RAY - ABDOMEN/PELVIS REASON FOR EXAM: Female, 76 years old. Intermittent diarrhea and constipation for a couple months. Intermittent abdominal pain. TECHNIQUE: AP supine and upright views of the abdomen and pelvis. COMPARISON: None. FINDINGS: Normal visualized lung bases. There is an unremarkable bowel gas pattern. Air and feces are seen throughout the colon without evidence of obstruction or distention. There is no small bowel dilatation. There is no demonstrated free abdominal air. The visualized liver, spleen and kidneys are grossly normal in size and morphology. There is a surgical clip in the left upper quadrant. There are focal densities in the represent vascular calcifications or granulomata within the spleen. Normal soft tissue structures. There are diffuse degenerative changes of the visualized lumbar spine. RAD/Abd Inc Decub and/or Erect IMPRESSION: Normal x-ray examination of the abdomen and pelvis. Electronically Signed: Justino Fletcher DO at 23:29 EDT ,
[2022-02-21 13:23] LABS: Anion Gap 7 (5-15); BUN 24 mg/dL (7-18); BUN/Creat Ratio 26.3 RATIO (10-20); Calcium,Total 9.8 mg/dL (8.5-10.1); Chloride 99 mmol/L (98-107); Creatinine, Serum 0.91 mg/dL (0.55-1.02); EST Glomerular Filtration Rate 64 mL/min (>60); Est Glom Filt Rate - Afr Amer 77 mL/min (>60); Glucose 133 mg/dL (74-106); Potassium 4.3 mmol/L (3.5-5.1); Sodium Level 133 mmol/L (136-145)
== END | disposition home or self-care (01) ==
LOC: POLAB3 11:30 → RAD 11:31
PROVIDERS: PCP Family Medicine Geriatric Medicine; Visit Provider Family Medicine Geriatric Medicine
DX: R10.9 Unspecified abdominal pain (principal); N18.31 Chronic kidney disease, stage 3a
CPT/HCPCS: 36415; 74019; 80048

== ENCOUNTER → 2022-05-04 | Outpatient (CLI) | payer MEDICARE, BC, SELFPAY ==
[2022-05-04 11:59] LABS: Absolute Lymphocyte Count 1.98 X10^3/uL (0.83-4.51); Absolute Neutrophil Count 3.9 X10^3/uL (2.0-7.7); Basophil# 0.04 X10^3/uL; Basophil% 0.6 % (0-1); Eosinophil# 0.29 X10^3/uL; Eosinophils% 4.4 % (0-5); Hematocrit 41.4 % (37-47); Hemoglobin 13.4 g/dL (12.0-15.0); Lymphocyte # 1.98 X10^3/ul (0.83-4.51); Lymphocyte % 29.7 % (19-41); Mean Corp Hgb Conc 32.4 g/dL (32-36); Mean Corpuscular Hgb 27.5 pg (27.0-32.0); Mean Corpuscular Volume 84.8 fL (81-99); Monocyte# 0.49 X10^3/uL; Monocyte% 7.4 % (0-10); NRBC Flagged by Analyzer 0 % (0-5); Neutrophil # 3.85 X10^3/uL (2.7-7.7); Neutrophil % 57.7 % (47-70); Platelet Count 351 K/mm3 (150-450); RBC Distribution Width CV 14.4 % (11.6-14.6); Red Blood Count 4.88 M/mm3 (4.2-5.4); White Blood Count 6.7 K/mm3 (4.4-11.0)
[2022-05-04 12:18] LABS: Vitamin D,25 Hydroxy 68.2 ng/mL
[2022-05-04 12:23] LABS: ALB/GLOB Ratio 0.8 RATIO (0.9-2.4); AST(SGOT) 15 U/L (15-37); Alanine Aminotransfer ALT/SGPT 29 U/L (13-56); Albumin, Serum 3.2 g/dL (3.2-5.0); Alkaline Phosphatase 58 U/L (45-117); Anion Gap 9 (5-15); BUN 26 mg/dL (7-18); BUN/Creat Ratio 26.5 RATIO (10-20); Calcium,Total 9.6 mg/dL (8.5-10.1); Chloride 104 mmol/L (98-107); Creatinine, Serum 0.98 mg/dL (0.55-1.02); EST Glomerular Filtration Rate 59 mL/min (>60); Est Glom Filt Rate - Afr Amer 71 mL/min (>60); Glucose 132 mg/dL (74-106); Potassium 4.6 mmol/L (3.5-5.1); Protein, Total 7.2 g/dL (6.4-8.2); Sodium Level 140 mmol/L (136-145)
== END | disposition home or self-care (01) ==
LOC: POLAB3 09:48
PROVIDERS: PCP Family Medicine Geriatric Medicine; Visit Provider Family Medicine Geriatric Medicine
DX: E55.9 Vitamin D deficiency, unspecified (principal); I10 Essential (primary) hypertension
CPT/HCPCS: 36415; 80053; 82306; 84443; 85025; 87086; 87088

== ENCOUNTER → 2022-08-21 | Outpatient (CLI) | payer MEDICARE, BC, SELFPAY ==
--- NOTE | 2022-08-21 14:29 | BI_ITS ---
MAMMOGRAPHY - BILATERAL DIAGNOSTIC REASON FOR EXAM: Female, 77 years old. One-week history of left breast lump. PERTINENT HISTORY: Non-contributory. TECHNIQUE: Digital bilateral breast esdras (3D mammographic acquisition) in the CC and MLO projections. 2-D mediolateral oblique (MLO) and craniocaudad (CC) views of both breasts were obtained. CAD: Full Field Digital Mammography with Computer Added Detection was performed. COMPARISON: Comparison is made with prior study dated 10/20/2021. FINDINGS: Breast Composition: The breasts are almost entirely fatty. Stable 8.2 mm well-defined nodule in the upper anterior central portion of the left breast. Fine calcific rim is seen. This corresponds to the palpable abnormality. Correlation with ultrasound is recommended. Stable densely calcified nodule along the anterior inferior medial aspect of the left breast. No other significant abnormalities are identified. BI/DIAG MAMM W/CAD, BILAT IMPRESSION: 8.2 mm well-defined nodule in the upper anterior central portion of left breast with fine calcific rim. Correlation with ultrasound is recommended. ASSESSMENT CATEGORY: BIRADS Category 0: Incomplete. Need additional imaging evaluation. A letter regarding these results will be sent to the patient by the facility within 30 days. Approximately 10% of breast cancers are not detected by mammography. A normal mammogram should not delay biopsy of a clinically suspicious abnormality. Electronically Signed: Romie Suárez MD at 15:44 EST ,
--- NOTE | 2022-08-21 14:29 | US_ITS ---
STUDY: ULTRASOUND BREAST - LEFT REASON FOR EXAM: Female, 77 years old. Palpable lump in the left breast. TECHNIQUE: Axial and longitudinal images of the LEFT breast were performed with a high resolution ultrasound transducer. # OF IMAGES: 6 COMPARISON: Comparison is made with prior mammogram done earlier today. FINDINGS: LEFT Breast: The abnormality corresponds to a 1 cm x 0.6 cm x 0.9 cm hypoechoic nodule with an anterior hypoechoic nodular density. This is not a typical cyst. This is at the 11 o''clock position in the breast at 11 cm from the nipple. Biopsy is recommended. US/Breast Limited Unilateral IMPRESSION: 1 cm x 0.9 cm x 0.6 cm complex cystic nodule with anterior hypoechoic density at the 11 o''clock position of the breast at 11 cm from nipple. Biopsy recommended. ASSESSMENT CATEGORY: BIRADS Category 4: Suspicious - Biopsy Should Be Considered. A letter regarding these results will be sent to the patient by the facility within 30 days. Electronically Signed: Romie Suárez MD at 9:39 EST ,
== END | disposition home or self-care (01) ==
PROVIDERS: PCP Family Medicine Geriatric Medicine; Visit Provider Family Medicine Geriatric Medicine
DX: N63.25 Unspecified lump in the left breast, overlapping quadrants (principal)
CPT/HCPCS: 76642; 77062; 77066; G0279

== ENCOUNTER → 2022-08-29 | Outpatient (CLI) | payer MEDICARE, BC, SELFPAY ==
--- NOTE | 2022-08-29 09:45 | CYST_PTH ---
PATIENT: YUNG HERNANDEZ LOC: [facility] U#:[id number] AGE/SX: 77/F ROOM: RE08/29/[address]: Dr. Mikayla Dukes MD : [id number] BED: DIS: 08/29/2022 SPEC #: [id number] RECD: 08/29/22 11:01 STATUS: SELAM REShellie #: [id number] TRINIDAD: 08/29/22 09:[address]: Mikayla Dukes DEPT: SURGICAL PATHOLOGY RECD BY: Angelika Red ENTERED: 08/29/22 12:42 SP TYPE: Cyst OTHR DR: Dr. Sumit Whipple MD Tissues: CYST Procedures: Surgery Specimen Level IV HEADER OPERATION: Excisional left breast biopsy PRE-OP DIAGNOSIS: Left breast mass TISSUE SUBMITTED: Left breast cyst 11 o?clock, 11 cm from nipple MICROSCOPIC DIAGNOSIS Left breast cyst, 11 o?clock, 11 cm from nipple, excisional biopsy: Fibrous cyst with focal fat necrosis, chronic inflammation and foreign body giant cell reaction and focal calcifications. Negative for atypia or malignancy. See comment. LANDON:viviana 08/30/2022 COMMENT Breast tissue is not identified in the specimen. Correlation with clinical, radiologic findings and appropriate follow up are necessary. Case has been reviewed in consultation with Dr. Monteiro who concurs with the above diagnosis. IDC:AM MICROSCOPIC DESCRIPTION Slides are reviewed. GROSS DESCRIPTION Received in fixative is one container labeled with the patient's name and designated left breast mass biopsy. The specimen consists of a piece of adipose tissue measuring 1.3 x 1.2 x 0.5 cm. The specimen is inked, bisected and submitted entirely in one cassette. / LANDON:viviana 08/29/2022 TC:5 CPT: 04160
== END | disposition home or self-care (01) ==
LOC: LABSPEC 11:45
PROVIDERS: PCP Family Medicine Geriatric Medicine; Visit Provider Surgery
DX: N63.22 Unspecified lump in the left breast, upper inner quadrant (principal)
CPT/HCPCS: 88304; 88305

== ENCOUNTER → 2022-11-01 | Outpatient (CLI) | payer MEDICARE, BC, SELFPAY ==
[2022-11-01 13:28] LABS: Absolute Lymphocyte Count 1.59 X10^3/uL (0.83-4.51); Absolute Neutrophil Count 4.2 X10^3/uL (2.0-7.7); Basophil# 0.03 X10^3/uL; Basophil% 0.5 % (0-1); Eosinophil# 0.25 X10^3/uL; Eosinophils% 3.8 % (0-5); Hemoglobin 12.8 g/dL (12.0-15.0); Lymphocyte # 1.59 X10^3/ul (0.83-4.51); Lymphocyte % 24.4 % (19-41); Mean Corpuscular Hgb 27.3 pg (27.0-32.0); Mean Corpuscular Volume 85.3 fL (81-99); Mean Platelet Vol. 10.5 fl (6.2-12.0); Monocyte# 0.46 X10^3/uL; Monocyte% 7.1 % (0-10); NRBC Flagged by Analyzer 0 % (0-5); Neutrophil # 4.16 X10^3/uL (2.7-7.7); Neutrophil % 63.7 % (47-70); Platelet Count 297 K/mm3 (150-450); RBC Distribution Width CV 14.6 % (11.6-14.6); RBC Distribution Width SD 44.9 fl (35.1-43.9); Red Blood Count 4.69 M/mm3 (4.2-5.4); White Blood Count 6.5 K/mm3 (4.4-11.0)
[2022-11-01 13:39] LABS: Vitamin D,25 Hydroxy 73.4 ng/mL
[2022-11-01 13:48] LABS: ALB/GLOB Ratio 1.1 RATIO (0.9-2.4); AST(SGOT) 18 U/L (15-37); Alanine Aminotransfer ALT/SGPT 24 U/L (13-56); Albumin, Serum 3.5 g/dL (3.2-5.0); Alkaline Phosphatase 59 U/L (45-117); Anion Gap 5 (5-15); BUN 23 mg/dL (7-18); BUN/Creat Ratio 25.2 RATIO (10-20); Calcium,Total 9.7 mg/dL (8.5-10.1); Chloride 105 mmol/L (98-107); Creatinine, Serum 0.91 mg/dL (0.55-1.02); EST Glomerular Filtration Rate 64 mL/min (>60); Est Glom Filt Rate - Afr Amer 77 mL/min (>60); Globulin 3.3 g/dL (2.2-4.2); Glucose 115 mg/dL (74-106); Potassium 4.5 mmol/L (3.5-5.1); Protein, Total 6.8 g/dL (6.4-8.2); Sodium Level 139 mmol/L (136-145); Thyroid Stim Hormone (TSH) 1.16 uIU/mL (0.358-3.74)
== END | disposition home or self-care (01) ==
LOC: POLAB3 10:19
PROVIDERS: PCP Family Medicine Geriatric Medicine; Visit Provider Family Medicine Geriatric Medicine
DX: I10 Essential (primary) hypertension (principal); E11.65 Type 2 diabetes mellitus with hyperglycemia; E55.9 Vitamin D deficiency, unspecified
CPT/HCPCS: 36415; 80053; 82306; 84443; 85025

== ENCOUNTER → 2023-04-18 | Outpatient (CLI) | payer MEDICARE, BC, SELFPAY ==
--- NOTE | 2023-04-18 16:26 | CT_ITS ---
STUDY: CT BRAIN WITHOUT CONTRAST REASON FOR EXAM: Female, 77 years old. HEADACHE RADIATION DOSAGE (If Supplied By Facility): CTDIvol = ( 44.99 ) mGy, DLP = ( 796.11 ) mGycm TECHNIQUE: Transaxial CT imaging of the brain was performed without administration of intravenous contrast material. Individualized dose optimization techniques were used for this CT. COMPARISON: CT brain December 24, 2020 FINDINGS: Right parafalcine calcified mass measures 12 x 9 mm in AP and transverse dimensions. Normal soft tissue structures. Normal calvarium. There is mild cerebral atrophy with widening of the extra-axial spaces and ventricular dilatation. There are areas of decreased attenuation within the white matter tracts of the supratentorial brain, consistent with microvascular disease changes. Normal basal ganglia and thalami. Normal brainstem. Normal cerebellum. Intracranial atherosclerosis. There is no intracranial hemorrhage. There are no findings of an acute ischemic infarction. Normal visualized paranasal sinuses. CT/Brain/Head without Contrast IMPRESSION: Right parafalcine calcified meningioma appears stable. No acute disease. Electronically Signed: hSayan Chacon MD at 17:18 EDT ,
[2023-04-18 18:20] LABS: Absolute Lymphocyte Count 2.57 X10^3/uL (0.83-4.51); Basophil# 0.03 X10^3/uL; Basophil% 0.4 % (0-1); Eosinophil# 0.26 X10^3/uL; Eosinophils% 3.5 % (0-5); Hematocrit 42.3 % (37-47); Hemoglobin 13.2 g/dL (12.0-15.0); Lymphocyte # 2.57 X10^3/ul (0.83-4.51); Lymphocyte % 34.6 % (19-41); Mean Corp Hgb Conc 31.2 g/dL (32-36); Mean Corpuscular Hgb 26.6 pg (27.0-32.0); Mean Corpuscular Volume 85.3 fL (81-99); Mean Platelet Vol. 10.1 fl (6.2-12.0); Monocyte# 0.56 X10^3/uL; Monocyte% 7.5 % (0-10); NRBC Flagged by Analyzer 0 % (0-5); Neutrophil # 3.98 X10^3/uL (2.7-7.7); Neutrophil % 53.7 % (47-70); Platelet Count 337 K/mm3 (150-450); RBC Distribution Width CV 14.6 % (11.6-14.6); RBC Distribution Width SD 44.7 fl (35.1-43.9); Red Blood Count 4.96 M/mm3 (4.2-5.4); White Blood Count 7.4 K/mm3 (4.4-11.0)
[2023-04-18 18:57] LABS: Anion Gap 5 (5-15); BUN 19 mg/dL (7-18); CRP < 2.90 mg/L (0.0-3.0); Calcium,Total 9.5 mg/dL (8.5-10.1); Chloride 103 mmol/L (98-107); EST Glomerular Filtration Rate 57 mL/min (>60); Est Glom Filt Rate - Afr Amer 69 mL/min (>60); Glucose 81 mg/dL (74-106); Potassium 4.6 mmol/L (3.5-5.1); Sodium Level 136 mmol/L (136-145); Thyroid Stim Hormone (TSH) 0.67 uIU/mL (0.358-3.74)
== END | disposition home or self-care (01) ==
PROVIDERS: PCP Family Medicine Geriatric Medicine; Referring Provider Family Medicine Geriatric Medicine; Visit Provider Family Medicine Geriatric Medicine
DX: R51.9 Headache, unspecified (principal); N18.31 Chronic kidney disease, stage 3a; R06.02 Shortness of breath; R53.83 Other fatigue
CPT/HCPCS: 36415; 70450; 80048; 84443; 85025; 86140

== ENCOUNTER → 2023-05-09 | Outpatient (CLI) | payer MEDICARE, BC, SELFPAY ==
[2023-05-09 11:24] LABS: Absolute Lymphocyte Count 1.86 X10^3/uL (0.83-4.51); Absolute Neutrophil Count 3.4 X10^3/uL (2.0-7.7); Basophil# 0.03 X10^3/uL; Basophil% 0.5 % (0-1); Eosinophil# 0.17 X10^3/uL; Eosinophils% 2.9 % (0-5); Hematocrit 36.1 % (37-47); Lymphocyte # 1.86 X10^3/ul (0.83-4.51); Lymphocyte % 31.5 % (19-41); Mean Corp Hgb Conc 33.2 g/dL (32-36); Mean Corpuscular Hgb 28.1 pg (27.0-32.0); Mean Corpuscular Volume 84.5 fL (81-99); Mean Platelet Vol. 9.5 fl (6.2-12.0); Monocyte# 0.45 X10^3/uL; Monocyte% 7.6 % (0-10); NRBC Flagged by Analyzer 0 % (0-5); Neutrophil # 3.39 X10^3/uL (2.7-7.7); Neutrophil % 57.3 % (47-70); Platelet Count 298 K/mm3 (150-450); RBC Distribution Width CV 14.8 % (11.6-14.6); RBC Distribution Width SD 45.7 fl (35.1-43.9); Red Blood Count 4.27 M/mm3 (4.2-5.4); White Blood Count 5.9 K/mm3 (4.4-11.0)
[2023-05-09 11:39] LABS: Vitamin D,25 Hydroxy 56.1 ng/mL
[2023-05-09 11:47] LABS: ALB/GLOB Ratio 1.1 RATIO (0.9-2.4); AST(SGOT) 27 U/L (15-37); Alanine Aminotransfer ALT/SGPT 32 U/L (13-56); Albumin, Serum 3.4 g/dL (3.2-5.0); Alkaline Phosphatase 51 U/L (45-117); Anion Gap 5 (5-15); BUN 25 mg/dL (7-18); BUN/Creat Ratio 25.5 RATIO (10-20); Calcium,Total 9.1 mg/dL (8.5-10.1); Chloride 105 mmol/L (98-107); Creatinine, Serum 0.98 mg/dL (0.55-1.02); EST Glomerular Filtration Rate 58 mL/min (>60); Est Glom Filt Rate - Afr Amer 71 mL/min (>60); Globulin 3.2 g/dL (2.2-4.2); Glucose 113 mg/dL (74-106); Potassium 4.5 mmol/L (3.5-5.1); Protein, Total 6.6 g/dL (6.4-8.2); Sodium Level 137 mmol/L (136-145); Thyroid Stim Hormone (TSH) 3.16 uIU/mL (0.358-3.74)
== END | disposition home or self-care (01) ==
LOC: POLAB3 09:07
PROVIDERS: PCP Family Medicine Geriatric Medicine; Visit Provider Family Medicine Geriatric Medicine
DX: E11.65 Type 2 diabetes mellitus with hyperglycemia (principal); E55.9 Vitamin D deficiency, unspecified; I10 Essential (primary) hypertension
CPT/HCPCS: 36415; 80053; 82306; 84443; 85025

== ENCOUNTER → 2023-07-17 | Outpatient (CLI) | payer MEDICARE, BC, SELFPAY ==
--- NOTE | 2023-07-17 12:23 | RAD_ITS ---
STUDY: X-RAY - PELVIS REASON FOR EXAM: Female, 78 years old. L BUTTOCK PAIN TECHNIQUE: One view of the pelvis was obtained. COMPARISON: Abdominal x-ray dated February 21, 2022 FINDINGS: Stable appearance of the left hip prosthetic components. No demonstrated acute fracture. Lower lumbar spine decompressive defects noted. There is a non-specific bowel gas pattern. Normal visualized soft tissue structures. Normal bilateral iliac wings, sacroiliac joints and visualized sacrum. Normal visualized bilateral superior and inferior pubic rami. Normal pubic symphysis. Normal ischial tuberosities. Normal visualized right femoral head. Normal right acetabulum. Normal right hip joint. RAD/Pelvis 1 or 2 Views IMPRESSION: 1. Stable appearance of the left hip prosthetic components. No demonstrated acute fracture. Lower lumbar spine decompressive defects noted. Electronically Signed: Chris Solomon MD at 9:54 EST ,
--- NOTE | 2023-07-17 12:30 | RAD_ITS ---
STUDY: X-RAY - LUMBAR SPINE REASON FOR EXAM: Female, 78 years old. LOW BACK PAIN TECHNIQUE: 5 view(s) of the lumbar spine were obtained. COMPARISON: None FINDINGS: Normal lumbar lordosis. There is no substantial scoliosis. There is a normal alignment of the vertebrae. Evidence of previous laminectomy at L5 and S1. There is diffuse demineralization with multi-level endplate spondylosis. There is multi-level degenerative disc disease with multi-level disc space narrowing. There is no demonstrated fracture. There is atherosclerotic calcification of the abdominal aorta without a demonstrated aneurysm. RAD/L/S Spine Min 4 Views IMPRESSION: Degenerative and postsurgical changes of the spine, as detailed above. Electronically Signed: Chava Reynolds MD at 10:01 EST ,
[2023-07-17 12:35] LABS: Absolute Lymphocyte Count 2.12 X10^3/uL (0.83-4.51); Absolute Neutrophil Count 3.6 X10^3/uL (2.0-7.7); Basophil# 0.04 X10^3/uL; Basophil% 0.6 % (0-1); Eosinophil# 0.19 X10^3/uL; Hematocrit 38.4 % (37-47); Hemoglobin 12.2 g/dL (12.0-15.0); Lymphocyte # 2.12 X10^3/ul (0.83-4.51); Lymphocyte % 33.1 % (19-41); Mean Corp Hgb Conc 31.8 g/dL (32-36); Mean Corpuscular Hgb 27.1 pg (27.0-32.0); Mean Corpuscular Volume 85.1 fL (81-99); Mean Platelet Vol. 9.5 fl (6.2-12.0); Monocyte# 0.49 X10^3/uL; Monocyte% 7.6 % (0-10); NRBC Flagged by Analyzer 0 % (0-5); Neutrophil # 3.55 X10^3/uL (2.7-7.7); Neutrophil % 55.4 % (47-70); Platelet Count 307 K/mm3 (150-450); RBC Distribution Width CV 14.4 % (11.6-14.6); RBC Distribution Width SD 44.7 fl (35.1-43.9); Red Blood Count 4.51 M/mm3 (4.2-5.4); White Blood Count 6.4 K/mm3 (4.4-11.0)
[2023-07-17 14:15] LABS: AST(SGOT) 16 U/L (15-37); Alanine Aminotransfer ALT/SGPT 26 U/L (13-56); Albumin, Serum 3.3 g/dL (3.2-5.0); Alkaline Phosphatase 55 U/L (45-117); Anion Gap 5 (5-15); BUN 13 mg/dL (7-18); BUN/Creat Ratio 13.2 RATIO (10-20); Calcium,Total 8.9 mg/dL (8.5-10.1); Chloride 101 mmol/L (98-107); Creatinine, Serum 0.99 mg/dL (0.55-1.02); EST Glomerular Filtration Rate 58 mL/min (>60); Est Glom Filt Rate - Afr Amer 70 mL/min (>60); Globulin 3.2 g/dL (2.2-4.2); Glucose 136 mg/dL (74-106); Potassium 4.5 mmol/L (3.5-5.1); Protein, Total 6.5 g/dL (6.4-8.2); Sodium Level 134 mmol/L (136-145)
== END | disposition home or self-care (01) ==
PROVIDERS: PCP Family Medicine Geriatric Medicine; Referring Provider Family Medicine Geriatric Medicine; Visit Provider Family Medicine Geriatric Medicine
DX: M54.50 Low back pain, unspecified (principal); M79.18 Myalgia, other site; I10 Essential (primary) hypertension; N39.0 Urinary tract infection, site not specified
CPT/HCPCS: 36415; 72110; 72170; 80053; 85025; 87086

== ENCOUNTER → 2023-07-31 | Outpatient (CLI) | payer MEDICARE, BC, SELFPAY ==
--- NOTE | 2023-07-31 06:45 | MRI_ITS ---
STUDY: MRI BRAIN WITHOUT CONTRAST REASON FOR EXAM: Female, 78 years old. MULTIPLE FALLS, NEURO DEFICIT TECHNIQUE: Standardized multiplanar fat and water weighted pulse sequences were obtained. COMPARISON: Head CT dated April 18, 2023 FINDINGS: There is mild cerebral atrophy with widening of the extra-axial spaces and ventricular dilatation. There are a limited number of small white matter hyperintensities, distributed throughout the deep white matter tracts of the cerebral hemispheres, consistent with mild chronic white matter ischemic changes. There is no evidence for recent intracranial ischemia or other cause of cytotoxic edema on diffusion weighted imaging (DWI). Normal T2* images of the brain without demonstrated susceptibility artifact. There is no demonstrated hemosiderin stain. Redemonstration of a densely calcified small benign meningioma to the right of the interhemispheric falx between the superior aspects of bilateral frontoparietal junctions. Normal bilateral basal ganglia. Normal thalami. There is no extra-axial fluid accumulation. Normal flow voids within the major intracranial circulation suggesting patency by spin echo criteria. Normal sella turcica, pituitary gland, infundibular stalk, optic chiasm and hypothalamus. Normal tectal plate and pineal gland. Normal midbrain, lani and medulla. Normal cerebellum. Normal basal cisterns. Normal bilateral temporal bones. Normal bilateral internal auditory canals. No demonstrated orbital abnormality, within the constraints of a routine brain study. Normal visualized paranasal sinuses. Normal calvarium and skull base. Normal visualized soft tissue structures. Normal visualized upper cervical spine. MRI/Brain without Contrast IMPRESSION: 1. Involutional and chronic ischemic changes of the brain, as described above. Electronically Signed: Chris Solomon MD at 10:47 EST ,
== END | disposition home or self-care (01) ==
LOC: MRI 06:38
PROVIDERS: PCP Family Medicine Geriatric Medicine; Referring Provider Family Medicine Geriatric Medicine; Visit Provider Family Medicine Geriatric Medicine
DX: R29.6 Repeated falls (principal)
CPT/HCPCS: 70551

== ENCOUNTER → 2023-11-07 | Outpatient (CLI) | payer MEDICARE, BC, SELFPAY ==
[2023-11-07 10:28] LABS: Absolute Lymphocyte Count 2.51 X10^3/uL (0.83-4.51); Absolute Neutrophil Count 4.4 X10^3/uL (2.0-7.7); Basophil# 0.02 X10^3/uL; Basophil% 0.3 % (0-1); Eosinophil# 0.27 X10^3/uL; Eosinophils% 3.4 % (0-5); Hematocrit 40.5 % (37-47); Lymphocyte # 2.51 X10^3/ul (0.83-4.51); Lymphocyte % 32.1 % (19-41); Mean Corp Hgb Conc 32.1 g/dL (32-36); Mean Corpuscular Hgb 26.7 pg (27.0-32.0); Mean Corpuscular Volume 83.2 fL (81-99); Mean Platelet Vol. 9.9 fl (6.2-12.0); Monocyte# 0.61 X10^3/uL; Monocyte% 7.8 % (0-10); NRBC Flagged by Analyzer 0 % (0-5); Neutrophil % 56.1 % (47-70); Platelet Count 303 K/mm3 (150-450); RBC Distribution Width CV 14.3 % (11.6-14.6); RBC Distribution Width SD 43.2 fl (35.1-43.9); Red Blood Count 4.87 M/mm3 (4.2-5.4); White Blood Count 7.8 K/mm3 (4.4-11.0)
[2023-11-07 11:13] LABS: ALB/GLOB Ratio 0.7 RATIO (0.9-2.4); AST(SGOT) 12 U/L (15-37); Alanine Aminotransfer ALT/SGPT 21 U/L (13-56); Albumin, Serum 2.8 g/dL (3.2-5.0); Alkaline Phosphatase 76 U/L (45-117); Anion Gap 5 (5-15); BUN 13 mg/dL (7-18); BUN/Creat Ratio 14.6 RATIO (10-20); Calcium,Total 9.1 mg/dL (8.5-10.1); Chloride 102 mmol/L (98-107); Creatinine, Serum 0.89 mg/dL (0.55-1.02); EST Glomerular Filtration Rate 65 mL/min (>60); Est Glom Filt Rate - Afr Amer 79 mL/min (>60); Globulin 3.8 g/dL (2.2-4.2); Glucose 187 mg/dL (74-106); Protein, Total 6.6 g/dL (6.4-8.2); Sodium Level 135 mmol/L (136-145); Thyroid Stim Hormone (TSH) 7.89 uIU/mL (0.358-3.74)
[2023-11-07 11:30] LABS: Vitamin D,25 Hydroxy 57.4 ng/mL
[2023-11-07 13:20] LABS: M R Staph aureus DNA By PCR Negative (Negative); Staph aureus DNA By PCR NEGATIVE (Negative)
[2023-11-07 13:21] LABS: Probe Check PASS; Specimen Processing Control PASS
== END | disposition home or self-care (01) ==
LOC: POLAB3 09:17
PROVIDERS: PCP Family Medicine Geriatric Medicine; Visit Provider Family Medicine Geriatric Medicine
DX: E11.65 Type 2 diabetes mellitus with hyperglycemia (principal); B95.62 Methicillin resistant Staphylococcus aureus infection as the cause of diseases classified elsewhere; I10 Essential (primary) hypertension; E55.9 Vitamin D deficiency, unspecified
CPT/HCPCS: 36415; 80053; 82306; 84443; 85025; 87070; 87077; 87186; 87205; 87640

== ENCOUNTER → 2023-11-19 | Outpatient (CLI) | payer MEDICARE, BC, SELFPAY ==
--- NOTE | 2023-11-19 12:11 | CT_ITS ---
STUDY: CT BRAIN WITHOUT CONTRAST REASON FOR EXAM: Female, 78 years old. Recent head injury due to a fall. Loss of consciousness. RADIATION DOSAGE (If Supplied By Facility): CTDIvol = ( 47.06 ) mGy, DLP = ( 837.39 ) mGycm TECHNIQUE: Transaxial CT imaging of the brain was performed without administration of intravenous contrast material. Individualized dose optimization techniques were used for this CT. COMPARISON: Comparison is made with prior study dated April 18, 2023. FINDINGS: Normal soft tissue structures. There is a 1.2 cm x 0.9 cm calcified density arising from the right side of the cerebral falx along the posterior right frontal lobe. This is suggestive of a calcified meningioma. This is unchanged. There is mild cerebral atrophy with widening of the extra-axial spaces and ventricular dilatation. There are areas of decreased attenuation within the white matter tracts of the supratentorial brain, consistent with microvascular disease changes. Normal basal ganglia and thalami. Normal brainstem. Normal cerebellum. There is no intracranial hemorrhage. There are no findings of an acute ischemic infarction. Atherosclerotic calcification of the vertebral arteries and cavernous portions of the internal carotid arteries bilaterally. Normal visualized paranasal sinuses. CT/Brain/Head without Contrast IMPRESSION: Chronic involutional changes of the brain. Stable right parafalcine calcified meningioma. Electronically Signed: Romie Suárez MD at 12:42 EDT ,
--- NOTE | 2023-11-19 12:25 | RAD_ITS ---
STUDY: X-RAY - RIGHT KNEE REASON FOR EXAM: Female, 78 years old. Pain. TECHNIQUE: 4 view(s) of the knee. COMPARISON: 01/16/2012 FINDINGS: Osteopenia with revision 3 component total knee arthroplasty unchanged in position or alignment. Small joint effusion. No complicating features. Vascular calcification. RAD/Knee 4 or More Views IMPRESSION: Stable uncomplicated total knee arthroplasty. Electronically Signed: Franky Singh MD at 10:04 EDT ,
--- NOTE | 2023-11-19 12:25 | RAD_ITS ---
STUDY: X-RAY - LEFT KNEE REASON FOR EXAM: Female, 78 years old. Pain. TECHNIQUE: 4 view(s) of the knee. COMPARISON: None. FINDINGS: Osteopenia with total knee arthroplasty, 3 component, in anatomic alignment. No complicating features identified. Normal soft tissues. RAD/Knee 4 or More Views IMPRESSION: Osteopenia with uncomplicated 3 component total knee arthroplasty. Electronically Signed: Franky Singh MD at 10:03 EDT ,
== END | disposition home or self-care (01) ==
LOC: CT 12:06
PROVIDERS: PCP Family Medicine Geriatric Medicine; Visit Provider Family Medicine Geriatric Medicine
DX: S09.90XA Unspecified injury of head, initial encounter (principal); M25.561 Pain in right knee; M25.562 Pain in left knee; X58.XXXA Exposure to other specified factors, initial encounter
CPT/HCPCS: 70450; 73564

== ENCOUNTER → 2024-03-04 | Outpatient (CLI) | payer MEDICARE, BC, SELFPAY | END | disposition home or self-care (01) | PROVIDERS: PCP Family Medicine Geriatric Medicine; Referring Provider Family Medicine Geriatric Medicine; Visit Provider Family Medicine Geriatric Medicine | DX: N39.0 Urinary tract infection, site not specified (principal) | CPT/HCPCS: 87077; 87086; 87088; 87186 ==

== ENCOUNTER → 2024-05-14 | Outpatient (CLI) | payer MEDICARE, BC, SELFPAY ==
[2024-05-14 13:23] LABS: Absolute Lymphocyte Count 1.97 X10^3/uL (0.83-4.51); Absolute Neutrophil Count 4.7 X10^3/uL (2.0-7.7); Basophil# 0.03 X10^3/uL; Basophil% 0.4 % (0-1); Eosinophil# 0.33 X10^3/uL; Eosinophils% 4.4 % (0-5); Hemoglobin 13.4 g/dL (12.0-15.0); Lymphocyte # 1.97 X10^3/ul (0.83-4.51); Lymphocyte % 26.3 % (19-41); Mean Corp Hgb Conc 31.9 g/dL (32-36); Mean Corpuscular Volume 84.7 fL (81-99); Monocyte# 0.46 X10^3/uL; Monocyte% 6.1 % (0-10); NRBC Flagged by Analyzer 0 % (0-5); Neutrophil # 4.68 X10^3/uL (2.7-7.7); Neutrophil % 62.4 % (47-70); Platelet Count 284 K/mm3 (150-450); RBC Distribution Width CV 14.7 % (11.6-14.6); Red Blood Count 4.96 M/mm3 (4.2-5.4); White Blood Count 7.5 K/mm3 (4.4-11.0)
[2024-05-14 14:04] LABS: Vitamin D,25 Hydroxy 56.7 ng/mL
[2024-05-14 14:08] LABS: ALB/GLOB Ratio 0.9 RATIO (0.9-2.4); AST(SGOT) 19 U/L (15-37); Alanine Aminotransfer ALT/SGPT 26 U/L (13-56); Albumin, Serum 3.4 g/dL (3.2-5.0); Alkaline Phosphatase 66 U/L (45-117); Anion Gap 8 (5-15); BUN 16 mg/dL (7-18); BUN/Creat Ratio 13.3 RATIO (10-20); Calcium,Total 9.6 mg/dL (8.5-10.1); Chloride 106 mmol/L (98-107); EST Glomerular Filtration Rate 46 mL/min (>60); Est Glom Filt Rate - Afr Amer 56 mL/min (>60); Globulin 3.7 g/dL (2.2-4.2); Glucose 182 mg/dL (74-106); Potassium 4.7 mmol/L (3.5-5.1); Protein, Total 7.1 g/dL (6.4-8.2); Sodium Level 138 mmol/L (136-145); Thyroid Stim Hormone (TSH) 0.468 uIU/mL (0.358-3.740)
== END | disposition home or self-care (01) ==
LOC: POLAB3 13:08
PROVIDERS: PCP Family Medicine Geriatric Medicine; Visit Provider Family Medicine Geriatric Medicine
DX: I10 Essential (primary) hypertension (principal); E11.65 Type 2 diabetes mellitus with hyperglycemia; E03.9 Hypothyroidism, unspecified; E55.9 Vitamin D deficiency, unspecified
CPT/HCPCS: 36415; 80053; 82306; 84443; 85025

== ENCOUNTER 2024-07-03 11:30 | Outpatient (RCR) | payer MEDICARE, BC, SELFPAY ==
--- NOTE | 2024-03-12 12:58 | HP.PTEVAL ---
Patient's Visit Information Visit Information Visit Information: YUNG HERNANDEZ is a 78 year old F referred to Physical Therapy by Dr. Sumit Whipple MD with a diagnosis of Abnormal Gait. Date of Evaluation: 03/12/24 Physical Therapist: Jeanne Dc DPT Visit Plan Frequency: 2-3x /Week Duration: 4 Weeks Plan: Focus on LE and core strength/stabilization- proprioception and functional mobility HEP Given IE: Kitchen Sink: sit to stand, marching, hip flexion/extn/abd, HR/TR Subjective Subjective: Patient reports that she has fallen 5-6x this year- to the point where she has had to call the squad. She is going on a cruise at the end of March and she needs to get some strength back. She has dizziness and lightheadedness when she gets up. The MD is working with her medications to address those. She sometimes has to use the walker but not everyday. When she starts to lose her balance she starts to pedal backwards until she hits the cisneros. She has grab bars all over so she uses those a lot in her bathroom. The last time she fell was in the beginning of February. She has no pain its just balance and weakness. She and her brother live together and he does all the house work and shopping. She lives on one story and a ramp in the garage- she does not stairs. She has a walker and a cane that she does use. She is unable to get out of a chair without assistance from her arms. She sits for most of her day- she is not very active. PMHx/Meds: see list in chart. Objective Objective: Posture: forward head, rounded shoulders Gait: slow flex- decreased stride length bilateral HR/TR: able with UE A SLS: Left: 1 seconds Right: 3 seconds Stairs: asc: recip with bilateral HR desc: recip with bilateral HR with poor control ROM: WNL in all planes Strength:Karen: 5/5: Knee: Extn: Left: 20 Right: 33 Flexion: Left: 16 Right: 12 Hip Flexion Left: 16 Right: 19 Extn: Left: 23 Right: 23 Abd: left: 13 Right: 15 Add: Left: 10 Right: 13 Core: poor Flex: HS: moderate Gastroc: moderate Balance/Special Test Scores Functional Gait Assessment Score: 15 % Disability: 50.0000 Lower Extremity Functional Score: 32 30 Second Chair Rise Test Seconds: 5 Goals Goal 1:: Patient will be I with HEP and progression Goal Time Frame: 4-6 Weeks Goal 2:: Patient will increase her FGA by 5 points Goal Time Frame: 4-6 Weeks Goal 3:: Patient will sit to stand without UE A Goal Time Frame: 4-6 Weeks Goal 4:: Patient will asc/desc 8 recip with 1 HR Goal Time Frame: 4-6 Weeks Goal 5:: Patient will report 80% improvement Goal Time Frame: 4-6 Weeks Rehabilitation Potential Physical Therapy Diagnosis: Patient presents with hypomobility-she has decreased LE and core strength/stabilization Rehabilitation Potential: Good Anticipated Interventions Patient/Client Instruction: Educate patient on: Benefits of Fitness Program Therapeutic Exercise to Include: Strength training, Endurance training, Balance training, Coordination, Agility training, Body mechanics, Postural training, Flexibilty training, Gait and locomotor training, Neuromotor development, Dynamic Lumbar Stabilization and Scapular Strength/Stabilization For the Purpose of:: To improve muscle performance and motor function Text: Thank you for the opportunity to evaluate your patient. For Medicare and Medicare HMO plans, please review the plan of care and approve it. It will need to be FAXED BACK to us at [phone] for Medicare purposes. For Medicare only, by signing this I certify the plan of care. Please let me know if there are questions or concerns regarding this plan of care. Physician Signature: Date:
--- NOTE | 2024-04-29 11:05 | HP.PTREVAL ---
Re-Evaluation Intro: Dr. Sumit Whipple MD, It has been my pleasure to treat YUNG HERNANDEZ over the last 10 visits for Abnormal Gait. Please see the progress note below for an update on the physical therapy plan of care! Subjective Subjective: Pt was on a cruise for 8 days and then got sick for 2 weeks. Because she has not done anything for 2 weeks she has gotten so much weaker and she has another cruise coming up on May 30. he has achiness as opposed to pain. She has some back pain when she stands for longer than 10 min.. thinks leaning on the rollator did not help Objective Objective/Function: Pt using a straight cane. She is very unsteady at times with increase veering at times. She struggles with walking and turning 90 degrees or just turning her head. FGA 13 Steps: up and down steps recip with 2 hand rails with weakness in her legs and SOB Pt struggles with turning 90 degrees...increase veering. Sit to stand: pt is so weak now that she was able to get up on second attempt with 2 hand rails on the chair Plan Plan Plan: +++Patient needs a gait belt at all times++++ Work on LE strength (functional such as steps, sit to stands, etc), gait training and balance for safety, static/ dynamic balance gait training with HEP Balance/Gait/Functional tests Balance/Special Test Scores Functional Gait Assessment Score: 13 % Disability: 56.6700 Lower Extremity Functional Score: 29 30 Second Chair Rise Test Seconds: 5 Goals Goals Goal 1:: Patient will be I with HEP and progression Goal Time Frame: 4-6 Weeks Goal Progress: Progressing Goal 2:: Patient will increase her FGA by 5 points Goal Time Frame: 4-6 Weeks Goal 3:: Patient will sit to stand X 10 with 2 UE assist Goal Time Frame: 4-6 Weeks Goal 4:: Patient will asc/desc 8 recip with 1 HR Goal Time Frame: 4-6 Weeks Goal 5:: Patient will report 80% improvement Goal Time Frame: 4-6 Weeks Goal Progress: Progressing Anticipated Interventions Anticipated Interventions Patient/Client Instruction: Educate patient on: Benefits of Fitness Program Therapeutic Exercise to Include: Strength training, Endurance training, Balance training, Coordination, Agility training, Body mechanics, Postural training, Flexibilty training, Gait and locomotor training, Neuromotor development, Dynamic Lumbar Stabilization and Scapular Strength/Stabilization For the Purpose of:: To improve muscle performance and motor function Re-Evaluation Ending Re-evaluation ending: Please do not hesitate to contact me at [phone] by phone or if you have questions or concerns regarding this new plan of care! Sincerely, Alyson Leal, MPT
--- NOTE | 2024-06-09 12:05 | HP.PTREVAL ---
Re-Evaluation Intro: Dr. Sumit Whipple MD, It has been my pleasure to treat YUNG HERNANDEZ over the last 19 visits for Abnormal Gait. Please see the progress note below for an update on the physical therapy plan of care! Subjective Subjective: Pt went on the Cruise and she had a great time and she used her cane most of the time. Only dizziness for about 10 seconds while on the Cruise. She did not have any since she got home as well. She walked in today without a cane. She was also eating more food on the cruise and now that she is back she just had a coffee and protein bar. She does not want to cook for herself. Objective Objective/Function: Seems that her dizziness is better but she was eating 3 meals on the boat and she snacks at home and one meal a day. Wonder if the dizziness could be lack of nutrition/blood sugar Sit to stand: Pt is able to get up and out of the chair with 2 hand rails and very difficult and took 3 times to get out of a chair with 1 arm. FGA: 15 Stairs: Up and down recip with 1 hand rail with increase stiffness in her knees Plan Plan Plan: +++Patient needs a gait belt at all times++++ Work on walking with the walker with upright posture and with horizontal head turns with a gait belt. Work on LE strength (functional such as steps, sit to stands, etc), gait training and balance for safety, static/ dynamic balance gait training with HEP Balance/Gait/Functional tests Balance/Special Test Scores Functional Gait Assessment Score: 15 % Disability: 50.0000 Lower Extremity Functional Score: 47 30 Second Chair Rise Test Seconds: 5 Goals Goals Goal 1:: Patient will be I with HEP and progression Goal Time Frame: 4-6 Weeks Goal Progress: Progressing Goal 2:: Patient will increase her FGA by 2 points (FGA was 15 on the Re-eval) Goal Time Frame: 4-6 Weeks Goal 3:: Patient will sit to stand X 10 with 1 UE assist Goal Time Frame: 4-6 Weeks Goal 4:: Patient will asc/desc 8 steps recip with 1 HR Goal Time Frame: 4-6 Weeks Goal Progress: Goal Met Goal 5:: Patient will report 80% improvement Goal Time Frame: 4-6 Weeks Goal Progress: Progressing Anticipated Interventions Anticipated Interventions Patient/Client Instruction: Educate patient on: Benefits of Fitness Program Therapeutic Exercise to Include: Strength training, Endurance training, Balance training, Coordination, Agility training, Body mechanics, Postural training, Flexibilty training, Gait and locomotor training, Neuromotor development, Dynamic Lumbar Stabilization and Scapular Strength/Stabilization For the Purpose of:: To improve muscle performance and motor function Re-Evaluation Ending Re-evaluation ending: Please do not hesitate to contact me at [phone] by phone or if you have questions or concerns regarding this new plan of care! Sincerely, Alyson Leal, MPT
== END 2024-07-03 19:00 | disposition home or self-care (01) ==
LOC: PT 11:30
PROVIDERS: PCP Family Medicine Geriatric Medicine; Referring Provider Family Medicine Geriatric Medicine; Visit Provider Family Medicine Geriatric Medicine
DX: M25.561 Pain in right knee (principal); W19.XXXD Unspecified fall, subsequent encounter
CPT/HCPCS: 97110; 97162; 97530

== ENCOUNTER → 2024-09-02 | Outpatient (CLI) | payer MEDICARE, BC, SELFPAY | END | disposition home or self-care (01) | LOC: POLAB3 14:26 | PROVIDERS: PCP Family Medicine Geriatric Medicine; Visit Provider Family Medicine Geriatric Medicine | DX: N39.0 Urinary tract infection, site not specified (principal) | CPT/HCPCS: 87077; 87086; 87088; 87186 ==

== ENCOUNTER → 2024-09-04 | Outpatient (CLI) | payer MEDICARE, BC, SELFPAY ==
--- NOTE | 2024-09-04 11:00 | BI_ITS ---
MAMMOGRAPHY - BILATERAL SCREENING REASON FOR EXAM: Female, 79 years old. Routine annual screening examination. PERTINENT HISTORY: Non-contributory. TECHNIQUE: Digital bilateral breast manpreet (3D mammographic acquisition) in the CC and MLO projections. 2-D mediolateral oblique (MLO) and craniocaudad (CC) views of both breasts were obtained. CAD: Full Field Digital Mammography with Computer Added Detection was performed. COMPARISON: Comparison is made with prior study February 18, 2023 and October 20, 2021. FINDINGS: Breast Composition: The breasts are almost entirely fatty. There are no dominant masses or suspicious calcifications. Stable 8.2 mm well-defined calcified nodule in the medial retroareolar left breast. No other significant abnormalities are identified. There has been no significant change since the prior study. BI/SCRN MAMM (CAD)W/MANPREET BILAT IMPRESSION: Stable bilateral screening mammogram. Yearly follow-up mammogram recommended. (A) ASSESSMENT CATEGORY: BIRADS Category 2: Benign. A letter regarding these results will be sent to the patient by the facility within 30 days. Approximately 10% of breast cancers are not detected by mammography. A normal mammogram should not delay biopsy of a clinically suspicious abnormality. [id number] Electronically Signed: Romie Suárez MD at 12:28 EST ,
== END | disposition home or self-care (01) ==
LOC: OPBI 10:58
PROVIDERS: PCP Family Medicine Geriatric Medicine; Referring Provider Family Medicine Geriatric Medicine; Visit Provider Family Medicine Geriatric Medicine
DX: Z12.31 Encounter for screening mammogram for malignant neoplasm of breast (principal)
CPT/HCPCS: 77063; 77067

== ENCOUNTER → 2024-10-08 | Outpatient (CLI) | payer MEDICARE, BC, SELFPAY | END | disposition home or self-care (01) | LOC: POLAB3 16:19 | PROVIDERS: PCP Family Medicine Geriatric Medicine; Visit Provider Family Medicine Geriatric Medicine | DX: N39.0 Urinary tract infection, site not specified (principal) | CPT/HCPCS: 87077; 87086; 87088; 87186 ==

== ENCOUNTER → 2024-10-08 | Outpatient (CLI) | payer MEDICARE, BC, SELFPAY ==
--- NOTE | 2024-10-08 16:20 | RAD_ITS ---
PROCEDURE: Lumbar spine radiographs, five views REASON FOR EXAM: Back pain TECHNIQUE: Five views of the lumbar spine were obtained. COMPARISON: None. FINDINGS: Five views of the lumbar spine were obtained. The included portions of the pelvis and SI joints are intact. Partially included left total hip arthroplasty. Mild degenerative change right hip joint. There is moderate stool in the left colon. Moderate atherosclerotic calcification of the abdominal aorta. There is age-indeterminate moderate height loss of T11 and T12. The lumbar vertebral bodies are normal in height and alignment. No acute fracture or focal subluxation in the lumbar spine. Moderate multilevel degenerative disc and facet disease in the lumbar spine. RAD/L/S Spine Min 4 Views IMPRESSION: Osteopenia. No acute bony abnormality of the lumbar spine. Age-indeterminate moderate height loss of T11 and T12. If there is persistent pain or clinical concern, short-term follow-up MRI evalu ation may be helpful. Reading Location: [facility]
== END | disposition home or self-care (01) ==
LOC: RAD 16:16
PROVIDERS: PCP Family Medicine Geriatric Medicine; Referring Provider Family Medicine Geriatric Medicine; Visit Provider Family Medicine Geriatric Medicine
DX: M51.9 Unspecified thoracic, thoracolumbar and lumbosacral intervertebral disc disorder (principal)
CPT/HCPCS: 72110

== ENCOUNTER 2024-10-13 14:48 | Inpatient (IN) | payer MEDICARE, BC, SELFPAY ==
[2024-10-13] VITALS (11 sets, daily range): BP systolic 75–154; BP diastolic 42–96; PULSE 60–98; RESP 12–18; TEMP 36.5–36.6; O2SAT 93–99; BMI 29.9; BMI 30.4
--- NOTE | 2024-10-13 15:47 | EKG12_ITS ---
Test Reason : Blood Pressure : */* mmHG Vent. Rate : 70 BPM Atrial Rate : 70 BPM P-R Int : 142 ms QRS Dur : 84 ms QT Int : 406 ms P-R-T Axes : 20 -19 34 degrees QTcB Int : 438 ms Normal sinus rhythm Normal ECG Confirmed by Jacob Monroy ([id number]), news copy editor RASHAUN REED ([id number]) on 10/14/2024 10:41:21 AM Referred By: [facility] Confirmed By: Jacob Monroy
--- NOTE | 2024-10-13 16:12 | EDS_ITS ---
HPI History of Present Illness Chief Complaint: Dizziness Detail of Chief Complaint: Dizziness which patient defines as lightheadedness Informant: patient Onset/Context/Timing Onset: Month(s) (Worse the past couple of days) Context: Sudden Onset Timing: Intermittent Quality: Light headedness with standing Location: Not applicable Current Severity: Gone Maximum Severity: Moderate Worsened by: Upright position Relieved by: Lying down Associated Symptoms Associated Symptoms: None Narrative Narrative: Patient is a [facility] Medical History Anxiety Depression Sleep apnea Thyroid disease Diabetes mellitus Hypertension Home Medications ?Medication ?Instructions ?Recorded ?Last Taken ?Type pantoprazole 40 mg tablet,delayed 40 mg PO DAILY GERD 10/22/18 Unknown History release pregabalin 75 mg capsule 75 mg PO TID 08/29/22 Unknow n History levothyroxine 100 mcg tablet 100 mcg PO QDAY 12/10/23 Unknown History rosuvastatin 40 mg tablet 40 mg PO QDAY 12/10/23 Unkno wn History ascorbic acid (vitamin C) 500 mg 500 mg PO QDAY Unknown History tablet calcium 600 mg (as carbonate)-vit 1 tab PO QAM 4 Unknown History D3 20 mcg (800 unit) chewable tablet (Caltrate plus D) cyanocobalamin (vitamin B-12) 1,000 mcg PO QDAY Unknown History 1,000 mcg tablet (Vitamin B-12) d-mannose 500 mg capsule 500 mg PO .QD 05/21/24 Unkno wn History docusate sodium 100 mg capsule 100 mg PO BID 05/21/24 Unknown History hydroxyzine HCl 50 mg tablet 50 mg PO Q6H PRN 05/21/24 Unknown History magnesium oxide 500 mg capsule 500 mg PO QDAY SUPPLEME NT 05/21/24 Unknown History metformin 1,000 mg tablet 1,000 mg PO BID DM 05/21/24 Unknown History acetaminophen 500 mg tablet 500 mg PO Q8H PRN PAIN Unknown History bupropion HCl 300 mg 24 hr tablet, 300 mg PO QDAY #90 tabs 06/11/24 Unknown Rx extended release buspirone 5 mg tablet 5 mg PO BID #60 tabs 5 Unknown Rx duloxetine 30 mg capsule,delayed 30 mg PO DAILY #90 ca ps 09/05/24 Unknown Rx release duloxetine 60 mg capsule,delayed 60 mg PO DAILY #90 ca ps 09/05/24 Unknown Rx release Allergy/AdvReac Type Severity Reaction Status Date / Time Opioids - Morphine Analogues Allergy Rash Verified 06/11/24 10:32 adhesive tape AdvReac Unknown Rash Verified 06/11/24 10:32 tramadol (From Ultram) AdvReac Itching Verified 06/11/24 10:32 Family History Mother Cancer cervical Brother CVA (cerebral vascular accident) Father CVA (cerebral vascular accident) Sister , at the age of 65 Liver cancer Surgical History Cyst of left breast Status post hip surgery H/O knee surgery H/O wrist surgery Social History Smoking Status: Never smoker alcohol intake: current details: Occasional on avg 1 glass of wine Q mth substance use type: does not use EXAM Physical Exam Const Vital Signs: 10/13/24 14:49 10/13/24 15:49 10/13/24 16:10 Temperature 98 F Temperature Source Temporal Pulse Rate 74 72 Pulse Rate [Lying] 72 Pulse Rate [Sitting (for 1 minute prior to obtaining)] 98 Pulse Rate [Standing (for 1 minute prior to obtaining)] Respiratory Rate 16 12 Blood Pressure 117/96 H 120/60 Blood Pressure [Lying] 119/60 Blood Pressure [Sitting (for 1 minute prior to obtaining)] 75/46 L Blood Pressure [Standing (for 1 minute prior to obtaining)] Blood Pressure Mean 103 80 Blood Pressure Mean [Lying] 79 Blood Pressure Mean [Sitting (for 1 minute prior to obtaining)] 55 Blood Pressure Mean [Standing (for 1 minute prior to obtaining)] Pulse Ox 99 98 Oxygen Delivery Method Room Air Room Air 10/13/24 16:28 10/13/24 16:54 10/13/24 17:43 Temperature Temperature Source Pulse Rate 68 Pulse Rate [Lying] 71 Pulse Rate [Sitting (for 1 minute prior to obtaining)] 70 Pulse Rate [Standing (for 1 minute prior to obtaining)] 80 Respiratory Rate 18 Blood Pressure 134/56 H Blood Pressure [Lying] 133/61 H Blood Pressure [Sitting (for 1 minute prior to obtaining)] 80/66 L Blood Pressure [Standing (for 1 minute prior to obtaining)] 88/44 L Blood Pressure Mean 82 Blood Pressure Mean [Lying] 85 Blood Pressure Mean [Sitting (for 1 minute prior to obtaining)] 70 Blood Pressure Mean [Standing (for 1 minute prior to obtaining)] 58 Pulse Ox 98 Oxygen Delivery Method Room Air Room Air [facility] Lab Data Attestation: I reviewed the patient's lab results. Lab results narrative: CBC reveals mild anemia. Coags are normal. Electrolyte panel reveals hyponatremia and hypochloremia. Patient has a high anion gap acidosis. Creatinine slightly elevated 1.1 with an estimated GFR of 51. BUN to creatinine ratio is 24:1. Glucose is elevated at 262. Labs: Laboratory Results - last 24 hr 10/13/24 16:26 WBC 10.2 RBC 4.39 Hgb 11.9 L Hct 37.4 MCV 85.2 MCH 27.1 MCHC 31.8 L RDW Std Deviation 45.9 H RDW Coeff of Alivia 14.7 H Plt Count 285 MPV 10.2 Immature Gran % (Auto) 0.500 Neut % (Auto) 80.1 H Lymph % (Auto) 13.7 L [place] % (Auto) 4.5 Eos % (Auto) 1.0 Baso % (Auto) 0.2 Absolute Neuts (auto) 8.2 H Absolute Lymphs (auto) 1.39 Nucleated RBC % 0 PT 13.4 INR 1.0 APTT 23.3 L Sodium 132 L Potassium 5.0 Chloride 97 L Carbon Dioxide 19.2 L Anion Gap 16 H BUN 26 H Creatinine 1.10 Estim Creat Clear Calc 49.30 L Est GFR (MDRD) Non-Af 51 L BUN/Creatinine Ratio 23.5 H Glucose 262 H Calcium 9.7 EKG Initial EKG: Attestation: I personally reviewed and interpreted this EKG as follows: Interpretation: Sinus Rhythm (Rate is 70. EKG is normal. IN interval is 142 ms. QS duration 84 ms. QT duration 406 ms. [place] is normal) Treatment and Re-Evaluation :: Since orthostatic vital signs are positive we will order 1 L of normal saline. Will reassess after the liter has infused. If she is still orthostatic this may be due to to the fact that she has been diabetic for 38 years. Suspect that she has autonomic dysfunction due to diabetes. I was informed at 1900 the patient still has markedly positive orthostatic vitals. Since she is still positive after second liter and almost passes out when she stands up hospitalist was paged for admission. Discharge Plan Triage Chief Complaint: Dizziness ED Provider: Diallo Resendez Dx/Rx/DC Orders Clinical Impression: Orthostatic hypotension, Hypertension, Thyroid disease, High anion gap metabolic acidosis, Hyperglycemia due to type 2 diabetes mellitus Prescriptions: No Action pregabalin 75 mg capsule 75 mg PO TID levothyroxine 100 mcg tablet 100 mcg PO QDAY rosuvastatin 40 mg tablet 40 mg PO QDAY hydroxyzine HCl 50 mg tablet 50 mg PO Q6H PRN bupropion HCl 300 mg tablet extended release 24 hr 300 mg PO QDAY Qty: 90 1RF d-mannose 500 mg capsule 500 mg PO .QD ascorbic acid (vitamin C) 500 mg tablet 500 mg PO QDAY docusate sodium 100 mg capsule 100 mg PO BID Caltrate 600 plus D 600 mg-20 mcg (800 unit) tablet,chewable 1 tab PO QAM cyanocobalamin (vitamin B-12) [Vitamin B-12] 1,000 mcg tablet 1,000 mcg PO QDAY duloxetine 60 mg capsule,delayed release(DR/EC) 60 mg PO DAILY Qty: 90 1RF Rx Instructions: take in addition to 1 30mg capsule for a total of 90mg daily buspirone 5 mg tablet 5 mg PO BID Qty: 60 1RF duloxetine 30 mg capsule,delayed release(DR/EC) 30 mg PO DAILY Qty: 90 1RF Rx Instructions: take in addition to 1 60mg capsule for a total of 90mg daily pantoprazole 40 MG tablet 40 mg PO DAILY metformin 1,000 mg tablet 1,000 mg PO BID magnesium oxide 500 mg capsule 500 mg PO QDAY acetaminophen 500 mg tablet 500 mg PO Q8H PRN (Reason: PAIN) Primary Care Provider: Sumit Whipple Chi Referrals: Sumit Whipple Chi, MD [Primary Care Provider] - Print Language: Burkinan Disposition Disposition: Acute Care Hospital [facility]
--- NOTE | 2024-10-13 16:30 | ED.RN ---
UNABLE TO COMPLETE STANDING ORTHOSTATICS D/T PT. SYMPTOMS OF WEAKNESS
[2024-10-13 16:52] LABS: Absolute Lymphocyte Count 1.39 X10^3/uL (0.83-4.51); Absolute Neutrophil Count 8.2 X10^3/uL (2.0-7.7); Basophil# 0.02 X10^3/uL; Basophil% 0.2 % (0-1); Hematocrit 37.4 % (37-47); Hemoglobin 11.9 g/dL (12.0-15.0); Lymphocyte # 1.39 X10^3/ul (0.83-4.51); Lymphocyte % 13.7 % (19-41); Mean Corp Hgb Conc 31.8 g/dL (32-36); Mean Corpuscular Hgb 27.1 pg (27.0-32.0); Mean Corpuscular Volume 85.2 fL (81-99); Mean Platelet Vol. 10.2 fl (6.2-12.0); Monocyte# 0.46 X10^3/uL; Monocyte% 4.5 % (0-10); NRBC Flagged by Analyzer 0 % (0-5); Neutrophil # 8.16 X10^3/uL (2.7-7.7); Neutrophil % 80.1 % (47-70); Platelet Count 285 K/mm3 (150-450); RBC Distribution Width CV 14.7 % (11.6-14.6); RBC Distribution Width SD 45.9 fl (35.1-43.9); Red Blood Count 4.39 M/mm3 (4.2-5.4); White Blood Count 10.2 K/mm3 (4.4-11.0)
[2024-10-13] MEDS: 0.9% Normal Saline (1000mL) 1,000 ML 1000 ML IV (16:53)
[2024-10-13 17:14] LABS: BUN 26 mg/dL (4-19); BUN/Creat Ratio 23.5 RATIO (10-20); EST Glomerular Filtration Rate 51 (>60); Glucose 262 mg/dL (70-99); Prothrombin Time (Protime)PT. 13.4 SECONDS (11.7-14.9)
[2024-10-13 17:15] LABS: Partial Thromboplast Time 23.3 Seconds (24.1-36.2)
[2024-10-13] MEDS: 0.9% Normal Saline (1000mL) 1,000 ML 999 ML IV (17:42)
[2024-10-13 18:55] LABS: Anion Gap 16 (5-15); Calcium,Total 9.7 mg/dL (7.6-11.0); Carbon Dioxide 19.2 mmol/L (21.0-32.0); Chloride 97 mmol/L (98-108); Sodium Level 132 mmol/L (133-145)
--- NOTE | 2024-10-13 19:57 | PCM.HP.STD ---
HPI - General General Date of Admission: 10/13/24 Date of Service: 10/13/24 Chief Complaint: Dizziness HPI Narrative YUNG HERNANDEZ, is a 79 F who presents to the emergency room with chief complaint of dizziness. Onset of symptoms began acutely yesterday while at [employer]. Patient states he stood up and was walking and felt as if she was going to fall down with her knees buckling underneath her. This weakness upon standing has progressed today. Patient has significant past medical history of diabetes and was also treated for urinary tract infection on October 08. Patient denies any chest pain, shortness of breath, fevers or chills, nausea or vomiting and/or abdominal pain, flank pain or dysuria. Despite receiving 2 L of normal saline in the emergency room patient was ambulated and became symptomatic again with orthostatic vital signs positive. The patient admits to routinely not drinking very much fluids throughout the day. Will continue to hydrate patient with IV fluids overnight and attempt ambulation in the morning for safe discharge. PENDING SALE TO [facility] Medical History Anxiety Depression Sleep apnea Thyroid disease Diabetes mellitus Hypertension Home Medications ?Medication ?Instructions ?Recorded ?Last Taken ?Type pantoprazole 40 mg tablet,delayed 40 mg PO DAILY GERD 10/22/18 Unknown History release pregabalin 75 mg capsule 75 mg PO TID 08/29/22 Unknown History levothyroxine 100 mcg tablet 100 mcg PO QDAY 12/10/23 Unknown History rosuvastatin 40 mg tablet 40 mg PO QDAY 12/10/23 Unknown History ascorbic acid (vitamin C) 500 mg 500 mg PO QDAY 05/21/24 Unknown History tablet calcium 600 mg (as carbonate)-vit 1 tab PO QAM 05/21/24 Unknown History D3 20 mcg (800 unit) chewable tablet (Caltrate plus D) cyanocobalamin (vitamin B-12) 1,000 mcg PO QDAY 05/21/24 Unknown History 1,000 mcg tablet (Vitamin B-12) d-mannose 500 mg capsule 500 mg PO .QD 05/21/24 Unknown History docusate sodium 100 mg capsule 100 mg PO BID 05/21/24 Unknown History hydroxyzine HCl 50 mg tablet 50 mg PO Q6H PRN 05/21/24 Unknown History magnesium oxide 500 mg capsule 500 mg PO QDAY SUPPLEMENT 05/21/24 Unknown History metformin 1,000 mg tablet 1,000 mg PO BID DM 05/21/24 Unknown History acetaminophen 500 mg tablet 500 mg PO Q8H PRN PAIN 06/11/24 Unknown History bupropion HCl 300 mg 24 hr tablet, 300 mg PO QDAY #90 tabs 06/11/24 Unknown Rx extended release buspirone 5 mg tablet 5 mg PO BID #60 tabs 09/05/24 Unknown Rx duloxetine 30 mg capsule,delayed 30 mg PO DAILY #90 caps 09/05/24 Unknown Rx release duloxetine 60 mg capsule,delayed 60 mg PO DAILY #90 caps 09/05/24 Unknown Rx release Allergy/AdvReac Type Severity Reaction Status Date / Time Opioids - Morphine Analogues Allergy Rash Verified 06/11/24 10:32 adhesive tape AdvReac Unknown Rash Verified 06/11/24 10:32 tramadol (From Ultram) AdvReac Itching Verified 06/11/24 10:32 Family History Mother Cancer cervical Brother CVA (cerebral vascular accident) Father CVA (cerebral vascular accident) Sister , at the age of 65 Liver cancer Surgical History Cyst of left breast Status post hip surgery H/O knee surgery H/O wrist surgery Social History Smoking Status: Never smoker alcohol intake: current details: Occasional on avg 1 glass of wine Q mth substance use type: does not use ROS Constitutional Constitutional: Denies chills or fever(s) Eyes Eyes: Denies blurry vision ENT HEENT: Denies abnormal hearing Cardiovascular Cardiovascular: Denies chest pain Respiratory/Chest Respiratory/Chest: Denies cough Gastrointestinal Gastrointestinal: Denies abdominal pain, nausea or vomiting Genitourinary Genitourinary: Reports oliguria; Denies dysuria or hematuria Musculoskeletal Musculoskeletal: Denies back pain Integumentary Integumentary: Denies dry skin Neurologic Neurologic: Reports lack of coordination Psychiatric Psychiatric: Denies anxiety Vital Signs Vital Signs Vital Signs: 10/13/24 14:49 10/13/24 15:49 10/13/24 16:10 Temperature 98 F Temperature Source Temporal Pulse Rate 74 72 Pulse Rate [Lying] 72 Pulse Rate [Sitting (for 1 minute prior to obtaining)] 98 Pulse Rate [Standing (for 1 minute prior to obtaining)] Respiratory Rate 16 12 Blood Pressure 117/96 H 120/60 Blood Pressure [Lying] 119/60 Blood Pressure [Sitting (for 1 minute prior to obtaining)] 75/46 L Blood Pressure [Standing (for 1 minute prior to obtaining)] Blood Pressure Mean 103 80 Blood Pressure Mean [Lying] 79 Blood Pressure Mean [Sitting (for 1 minute prior to obtaining)] 55 Blood Pressure Mean [Standing (for 1 minute prior to obtaining)] Pulse Ox 99 98 Oxygen Delivery Method Room Air Room Air 10/13/24 16:28 10/13/24 16:54 10/13/24 17:43 Temperature Temperature Source Pulse Rate 68 Pulse Rate [Lying] 71 Pulse Rate [Sitting (for 1 minute prior to obtaining)] 70 Pulse Rate [Standing (for 1 minute prior to obtaining)] 80 Respiratory Rate 18 Blood Pressure 134/56 H Blood Pressure [Lying] 133/61 H Blood Pressure [Sitting (for 1 minute prior to obtaining)] 80/66 L Blood Pressure [Standing (for 1 minute prior to obtaining)] 88/44 L Blood Pressure Mean 82 Blood Pressure Mean [Lying] 85 Blood Pressure Mean [Sitting (for 1 minute prior to obtaining)] 70 Blood Pressure Mean [Standing (for 1 minute prior to obtaining)] 58 Pulse Ox 98 Oxygen Delivery Method Room Air Room Air 10/13/24 19:17 Temperature Temperature Source Pulse Rate Pulse Rate [Lying] 64 Pulse Rate [Sitting (for 1 minute prior to obtaining)] 64 Pulse Rate [Standing (for 1 minute prior to obtaining)] Respiratory Rate Blood Pressure Blood Pressure [Lying] 147/68 H Blood Pressure [Sitting (for 1 minute prior to obtaining)] 100/43 L Blood Pressure [Standing (for 1 minute prior to obtaining)] Blood Pressure Mean Blood Pressure Mean [Lying] 94 Blood Pressure Mean [Sitting (for 1 minute prior to obtaining)] 62 Blood Pressure Mean [Standing (for 1 minute prior to obtaining)] Pulse Ox Oxygen Delivery Method Weight Weight: 197 lb Body Mass Index (BMI) 29.9 Physical Exam Const alert, oriented x3 and no apparent distress General Appearance: cooperative and well developed HEENT normocephalic and head/scalp atraumatic Eyes PERRL and EOMs intact bilaterally Neck no lymphadenopathy Lymph Lymphatic: no lymphadenopathy noted Resp normal respiratory effort, normal air movement and clear to auscultation bilaterally Cardio regular rate, regular rhythm, S1 normal heart sound, S2 normal heart sound and no murmurs GI normal to inspection, nondistended, normoactive bowel sounds, soft to palpation, non-tender and non-distended Extremity normal capillary refill Skin General Skin Exam: no breakdown Neuro no focal motor deficits and no sensory deficits noted Speech: speech normal Psych thought process normal, cooperative and affect normal Results Lab / Micro Data 10/13/24 16:26 10/13/24 16:26 Labs: Laboratory Results - last 24 hr 10/13/24 16:26: WBC 10.2, RBC 4.39, Hgb 11.9 L, Hct 37.4, MCV 85.2, MCH 27.1, MCHC 31.8 L, RDW Std Deviation 45.9 H, RDW Coeff of Alivia 14.7 H, Plt Count 285, MPV 10.2, Immature Gran % (Auto) 0.500, Neut % (Auto) 80.1 H, Lymph % (Auto) 13.7 L, [place] % (Auto) 4.5, Eos % (Auto) 1.0, Baso % (Auto) 0.2, Absolute Neuts (auto) 8.2 H, Absolute Lymphs (auto) 1.39, Nucleated RBC % 0, PT 13.4, INR 1.0, APTT 23.3 L, Sodium 132 L, Potassium 5.0, Chloride 97 L, Carbon Dioxide 19.2 L, Anion Gap 16 H, BUN 26 H, Creatinine 1.10, Estim Creat Clear Calc 49.30 L, Est GFR (MDRD) Non-Af 51 L, BUN/Creatinine Ratio 23.5 H, Glucose 262 H, Calcium 9.7 Assessment & Plan Assessment/Plan (1) Hyperglycemia due to type 2 diabetes mellitus: (2) Orthostatic hypotension: (3) Abnormal gait: (4) Thyroid disease: (5) Dizziness: PLAN: Plan 1 dizziness?likely secondary to dehydration?admit patient to general medical floor for IV hydration with normal saline and repeat BMP in the a.m. Continue to check orthostatic vital signs. Consider orthostatic vital signs positive as possibly caused by autonomic dysfunction, will also repeat a urinalysis as patient was recently treated for urinary tract infection with Enterococcus faecalis in the culture. 2. Hypothyroidism?continue thyroid medication 3. Diabetes continue routine home medication 4. DVT prophylaxis?SCDs Charges/Coding Visit Charges Inpatient E&M: 07597 Init Hosp L2
[2024-10-13] MEDS: busPIRone 5 MG Tablet PO (23:08)
[2024-10-13] MEDS: Docusate Sodium 100 MG Capsule PO (23:08)
[2024-10-13] MEDS: 0.9% Normal Saline (1000mL) 1,000 ML 125 ML IV (23:08)
[2024-10-14 04:00] VITALS: BP 128/49; PULSE 61; RESP 16; TEMP 36.6; O2SAT 94
[2024-10-14] MEDS: Levothyroxine 100 MCG Tablet PO (05:06)
[2024-10-14 07:37] LABS: Absolute Lymphocyte Count 2.38 X10^3/uL (0.83-4.51); Absolute Neutrophil Count 3.5 X10^3/uL (2.0-7.7); Basophil# 0.04 X10^3/uL; Basophil% 0.6 % (0-1); Eosinophils% 4.4 % (0-5); Hematocrit 32.6 % (37-47); Hemoglobin 10.8 g/dL (12.0-15.0); Lymphocyte # 2.38 X10^3/ul (0.83-4.51); Lymphocyte % 35.2 % (19-41); Mean Corp Hgb Conc 33.1 g/dL (32-36); Mean Corpuscular Volume 84.5 fL (81-99); Mean Platelet Vol. 10.2 fl (6.2-12.0); Monocyte# 0.51 X10^3/uL; Monocyte% 7.5 % (0-10); NRBC Flagged by Analyzer 0 % (0-5); Neutrophil # 3.51 X10^3/uL (2.7-7.7); Platelet Count 238 K/mm3 (150-450); RBC Distribution Width CV 15.1 % (11.6-14.6); RBC Distribution Width SD 46.1 fl (35.1-43.9); Red Blood Count 3.86 M/mm3 (4.2-5.4); White Blood Count 6.8 K/mm3 (4.4-11.0)
[2024-10-14 08:10] VITALS: BP 141/41; PULSE 52; RESP 16; TEMP 36.4; O2SAT 100
[2024-10-14 08:47] LABS: Anion Gap 10 (5-15); BUN 17 mg/dL (4-19); BUN/Creat Ratio 19.6 RATIO (10-20); Calcium,Total 8.9 mg/dL (7.6-11.0); Chloride 108 mmol/L (98-108); Creatinine, Serum 0.84 mg/dL (0.70-1.20); EST Glomerular Filtration Rate 71 (>60); Estimated Creatinine Clearance 65.09 ml/min (50-250); Glucose 119 mg/dL (70-99); Potassium 4.1 mmol/L (3.3-5.1); Sodium Level 142 mmol/L (133-145)
[2024-10-14] MEDS: Docusate Sodium 100 MG Capsule PO ×2 (10:10→23:01)
[2024-10-14] MEDS: busPIRone 5 MG Tablet PO ×2 (10:10→23:01)
[2024-10-14] MEDS: Calcium Carb/Vitamin D 1 TABLET Tablet PO (10:10)
[2024-10-14] MEDS: Cyanocobalamin 500 MCG Tablet 1000 MCG PO (10:11)
[2024-10-14] MEDS: Ascorbic Acid 500 MG Tablet PO (10:11)
[2024-10-14] MEDS: DULoxetine Hcl 30 MG Capsule 90 MG PO (10:11)
[2024-10-14] MEDS: Magnesium Chloride 64 MG Delay Rel.Tablet 128 MG PO (10:11)
[2024-10-14] MEDS: Pantoprazole Sodium 40 MG Tablet PO (10:11)
[2024-10-14] MEDS: buPROPion (XL) 300 MG TABLET.XL PO (10:12)
[2024-10-14 12:02] VITALS: BP 165/75; PULSE 59; RESP 16; TEMP 36.4; O2SAT 100
[2024-10-14 12:22] VITALS: BP 107/61; BP 168/79; BP 172/77; PULSE 64; PULSE 65; PULSE 79
--- NOTE | 2024-10-14 12:34 | CASEMGMT ---
NADER TOLEDO Assessment: Face to Face with pt for initial transition planning/care coordination assessment. NADER TOLEDO introduced self and role at [facility], pt voices understanding and consents to assessment. Pt is A&O x4 and answers all questions appropriately at this time. Pt lying in bed in no distress, 2 sisters in the room sitting at bedside. Pt agreeable to DC planning assessment with family present. Care providers, pharmacy, and demographics verified/updated. Strata: 2 Admitting Dx: Dizziness with fall risk PCP: Sarabjit Specialists: Denies Preferred Pharmacy: [facility] Insurance: Mirza BARNES Prescription Benefit: yes LNOK: Brother, Silvino; sister, Mell. Living Arrangements: Pt lives with brother in a 2 level home with a chair lift for steps. A ramp to enter into home. ADLs: Pt I with ADLs, needs assistance with IADLs. Transportation: Pt drives self and denies concerns with transportation. DME: [employer], 2 walkers, 2 canes, shower bench, grab bars. HHC/SNF:Previously at [facility] Pt states no concerns with going home at time of dc. Asked for information about medical alert. NADER TOLEDO provided list of companies to pt. Pt states no further concerns/needs. CM to follow. Advised pt to ask CM if any further question/concerns/needs arise, voices understanding. Pt Goal: Home Plan: Home with family support. Elijah DOE CM
[2024-10-14] MEDS: 0.9% Normal Saline (1000mL) 1,000 ML 125 ML IV ×2 (13:40→22:41)
[2024-10-14] MEDS: 0.9% Saline Lock 10 ML Syringe IV (13:40)
--- NOTE | 2024-10-14 14:18 | PN_ITS ---
Subjective Subjective Patient seen and examined. She had no complaints and says she felt much better. Review of systems otherwise negative. Dizziness had resolved. However orthostatics checked today was also still positive. Objective Data Objective Data Vital Signs: Vital Signs Temp Pulse Resp BP Pulse Ox O2 Del Method O2 Flow Rate 97.5 F L 65 16 168/79 H 100 Room Air 2 10/14/24 12:02 10/14/24 12:22 10/14/24 12:02 10/14/24 12:22 10/14/24 12:02 10/14/24 12:02 10/14/24 04:00 Oxygen Flow Rate (L/min) 2 Oxygen Delivery Method Room Air Weight: 200 lb 6 oz Body Mass Index (BMI) 30.4 Intake & Output: Intake and Output for Last 24 Hours 10/12/24 10/13/24 10/14/24 23:59 23:59 23:59 Intake Total 1999 1000 / 1000 Output Total 401 / 401 Balance 1999 599 / 599 Lab / Micro Data 10/14/24 06:47 10/14/24 06:47 Labs: Laboratory Results - last 24 hr 10/13/24 16:26: WBC 10.2, RBC 4.39, Hgb 11.9 L, Hct 37.4, MCV 85.2, MCH 27.1, M CHC 31.8 L, RDW Std Deviation 45.9 H, RDW Coeff of Alivia 14.7 H, Plt Count 285, MPV 10.2, Immature Gran % (Auto) 0.500, Neut % (Auto) 80.1 H, Lymph % (Auto) 13.7 L, [place] % (Auto) 4.5, Eos % (Auto) 1.0, Baso % (Auto) 0.2, Absolute Neuts (auto) 8.2 H, Absolute Lymphs (auto) 1.39, Nucleated RBC % 0, PT 13.4, INR 1.0, APTT 23.3 L, Sodium 132 L, Potassium 5.0, Chloride 97 L, Carbon Dioxide 19.2 L, Anion Gap 16 H, BUN 26 H, Creatinine 1.10, Estim Creat Clear Calc 49.30 L, Est GFR (MDRD) Non-Af 51 L, BUN/Creatinine Ratio 23.5 H, Glucose 262 H, Calcium 9.7 10/14/24 06:47: WBC 6.8, RBC 3.86 L, Hgb 10.8 L, Hct 32.6 L, MCV 84.5, MCH 28.0, MCHC 33.1, RDW Std Deviation 46.1 H, RDW Coeff of Alivia 15.1 H, Plt Count 238, MPV 10.2, Immature Gran % (Auto) 0.300, Neut % (Auto) 52.0, Lymph % (Auto) 35.2, [place] % (Auto) 7.5, Eos % (Auto) 4.4, Baso % (Auto) 0.6, Absolute Neuts (auto) 3.5, Absolute Lymphs (auto) 2.38, Nucleated RBC % 0, Sodium 142, Potassium 4.1, Chloride 108, Carbon Dioxide 24.0, Anion Gap 10, BUN 17, Creatinine 0.84, Estim Creat Clear Calc 65.09, Est GFR (MDRD) Non-Af 71, BUN/Creatinine Ratio 19.6, G lucose 119 H, Calcium 8.9 Physical Exam Const alert, oriented x3, no apparent distress and well nourished General Appearance: cooperative and well developed HEENT normocephalic, head/scalp atraumatic, moist oral mucous membranes and oropharynx normal Eyes PERRL and EOMs intact bilaterally Neck no lymphadenopathy, supple and no JVD Lymph Lymphatic: no lymphadenopathy noted and no lymphedema noted Resp normal respiratory effort, normal air movement and clear to auscultation bilaterally Cardio regular rate, regular rhythm, S1 normal heart sound, S2 normal heart sound and no murmurs GI normal to inspection, nondistended, normoactive bowel sounds, soft to palpation, non-tender and non-distended Extremity normal capillary refill, no clubbing, cyanosis or edema and no calf tenderness General Extremity: no tenderness to palpation of joints or extremities Skin General Skin Exam: no breakdown and turgor normal Neuro CN's II-XII intact bilaterally, no focal motor deficits and no sensory deficits noted Coordination / Balance: [id number] test normal Motor Exam: strength 5/5 throughout and general weakness Psych thought process normal and cooperative Appearance: appropriate Assessment & Plan Assessment/Plan (1) Dizziness: PLAN: Plan #Dizziness due to orthostatic hypotension' * Dizziness has improved. Orthostatics checked this morning was still positive. * Continue hydration with IV fluid normal saline at 125 cc/h. * Fall precautions. * PT OT on board. * #Hypothyroidism: Synthroid #Type 2 diabetes mellitus: On metformin. #Hyperlipidemia: On statin #Depression and anxiety: On bupropion and buspirone as well as duloxetine DVT prophylaxis: SCDs Charges/Coding Visit Charges Inpatient E&M: 85443 Subs Hosp L2
--- NOTE | 2024-10-14 14:47 | CHAPLAIN ---
Type of Pastoral Visit _x__ Initial Visit ___ Follow-up Visit ___ On-call Visit ___ General Patient Visit ___ Spiritual Assessment ___ Family Conference ___ Bereavement ___ Rapid Response ___ Code Blue ___ Other (describe below) Pastoral Care Referral From _x__ Patient ___ Family ___ Nurse ___ Physician ___ Senior Energy Analyst ___ Computer Engineering Professor ___ Other (describe below) Sacrament/Intervention _x__ Active listening ___ Anointing ___ Catholic ___ Bereavement ___ Communion ___ Malena exploration ___ ___ Life review _x__ Prayer ___ Reconciliation ___ Sacrament of Sick ___ Supportive presence ___ Wedding ___ Other (describe below) Pastoral Comments patient has two sisters and her nurse in the room; pt is feeling better per her report and has hopes of being released; pt says that you can certainly pray because we all can use that; pt otherwise has no other concerns or issues to discuss;
[2024-10-14 16:05] VITALS: BP 119/52; PULSE 71; RESP 16; TEMP 36.7; O2SAT 99
[2024-10-14 20:09] VITALS: BP 155/71; PULSE 60; RESP 15; TEMP 36.6; O2SAT 97
[2024-10-14] MEDS: Atorvastatin Calcium 80 MG Tablet PO (23:01)
[2024-10-15] VITALS (7 sets, daily range): BP systolic 111–172; BP diastolic 44–80; PULSE 65–79; RESP 15–16; TEMP 36.4–36.9; O2SAT 96–100
[2024-10-15] MEDS: Levothyroxine 100 MCG Tablet PO (06:05)
[2024-10-15 06:53] LABS: Absolute Lymphocyte Count 2.26 X10^3/uL (0.83-4.51); Absolute Neutrophil Count 3.8 X10^3/uL (2.0-7.7); Basophil# 0.03 X10^3/uL; Basophil% 0.4 % (0-1); Eosinophil# 0.46 X10^3/uL; Eosinophils% 6.5 % (0-5); Hematocrit 34.8 % (37-47); Hemoglobin 11.5 g/dL (12.0-15.0); Lymphocyte # 2.26 X10^3/ul (0.83-4.51); Lymphocyte % 31.8 % (19-41); Mean Corpuscular Hgb 27.8 pg (27.0-32.0); Mean Corpuscular Volume 84.1 fL (81-99); Monocyte# 0.54 X10^3/uL; Monocyte% 7.6 % (0-10); NRBC Flagged by Analyzer 0 % (0-5); Neutrophil # 3.79 X10^3/uL (2.7-7.7); Neutrophil % 53.4 % (47-70); Platelet Count 236 K/mm3 (150-450); Red Blood Count 4.14 M/mm3 (4.2-5.4); White Blood Count 7.1 K/mm3 (4.4-11.0)
[2024-10-15 07:13] LABS: Anion Gap 10 (5-15); BUN 14 mg/dL (4-19); BUN/Creat Ratio 16.8 RATIO (10-20); Calcium,Total 8.7 mg/dL (7.6-11.0); Chloride 108 mmol/L (98-108); Creatinine, Serum 0.82 mg/dL (0.70-1.20); EST Glomerular Filtration Rate 73 (>60); Estimated Creatinine Clearance 66.67 ml/min (50-250); Glucose 151 mg/dL (70-99); Potassium 4.1 mmol/L (3.3-5.1); Sodium Level 140 mmol/L (133-145)
[2024-10-15] MEDS: Cyanocobalamin 500 MCG Tablet 1000 MCG PO (09:19)
[2024-10-15] MEDS: Pantoprazole Sodium 40 MG Tablet PO (09:19)
[2024-10-15] MEDS: Ascorbic Acid 500 MG Tablet PO (09:19)
[2024-10-15] MEDS: Docusate Sodium 100 MG Capsule PO ×2 (09:19→21:50)
[2024-10-15] MEDS: Calcium Carb/Vitamin D 1 TABLET Tablet PO (09:19)
[2024-10-15] MEDS: Magnesium Chloride 64 MG Delay Rel.Tablet 128 MG PO (09:19)
[2024-10-15] MEDS: DULoxetine Hcl 30 MG Capsule 90 MG PO (09:19)
[2024-10-15] MEDS: buPROPion (XL) 300 MG TABLET.XL PO (09:19)
[2024-10-15] MEDS: busPIRone 5 MG Tablet PO ×2 (09:19→21:50)
[2024-10-15] MEDS: Fludrocortisone Acetate 0.1 MG Tablet PO (11:02)
[2024-10-15] MEDS: 0.9% Normal Saline (1000mL) 1,000 ML 125 ML IV ×2 (11:02→19:21)
--- NOTE | 2024-10-15 12:09 | PN_ITS ---
Subjective Subjective Patient seen and examined. She had no active complaints. She denied any dizziness, lightheadedness, palpitations, nausea, vomiting or any other symptoms. Review of systems is otherwise negative. orthostatics are still positive. Objective Data Objective Data Vital Signs: Vital Signs Temp Pulse Resp BP Pulse Ox O2 Del Method O2 Flow Rate 98.2 F 65 16 111/66 99 Room Air 2 10/15/24 09:08 10/15/24 09:09 10/15/24 09:08 10/15/24 09:09 10/15/24 09:08 10/15/24 09:08 10/14/24 04:00 Oxygen Flow Rate (L/min) 2 Oxygen Delivery Method Room Air Weight: 200 lb 6 oz Body Mass Index (BMI) 30.4 Intake & Output: Intake and Output for Last 24 Hours 10/13/24 10/14/24 10/15/24 23:59 23:59 23:59 Intake Total 1999 1000 / 1000 Output Total 401 / 401 Balance 1999 1599 / 1599 1000 / 1000 Lab / Micro Data 10/15/24 06:13 10/15/24 06:13 Labs: Laboratory Results - last 24 hr 10/15/24 06:13: WBC 7.1, RBC 4.14 L, Hgb 11.5 L, Hct 34.8 L, MCV 84.1, MCH 27.8, MCHC 33.0, RDW Std Deviation 46.0 H, RDW Coeff of Alivia 15.0 H, Plt Count 236, MPV 10.0, Immature Gran % (Auto) 0.300, Neut % (Auto) 53.4, Lymph % (Auto) 31.8, [place] % (Auto) 7.6, Eos % (Auto) 6.5 H, Baso % (Auto) 0.4, Absolute Neuts (auto) 3.8, Absolute Lymphs (auto) 2.26, Nucleated RBC % 0, Sodium 140, Potassium 4.1, Chloride 108, Carbon Dioxide 22.0, Anion Gap 10, BUN 14, Creatinine 0.82, Estim Creat Clear Calc 66.67, Est GFR (MDRD) Non-Af 73, BUN/Creatinine Ratio 16.8, G lucose 151 H, Calcium 8.7 Physical Exam Const alert, oriented x3, no apparent distress and well nourished General Appearance: cooperative and well developed HEENT normocephalic, head/scalp atraumatic, moist oral mucous membranes and oropharynx normal Eyes PERRL and EOMs intact bilaterally Neck no lymphadenopathy, supple and no JVD Lymph Lymphatic: no lymphadenopathy noted and no lymphedema noted Resp normal respiratory effort, normal air movement and clear to auscultation bilaterally Cardio regular rate, regular rhythm, S1 normal heart sound, S2 normal heart sound and no murmurs GI normal to inspection, nondistended, normoactive bowel sounds, soft to palpation, non-tender and non-distended Extremity normal capillary refill, no clubbing, cyanosis or edema and no calf tenderness General Extremity: no tenderness to palpation of joints or extremities Skin General Skin Exam: no breakdown and turgor normal Neuro CN's II-XII intact bilaterally, no focal motor deficits and no sensory deficits noted Coordination / Balance: [id number]-[id number] test normal Speech: speech normal Motor Exam: strength 5/5 throughout and general weakness Psych thought process normal, cooperative and affect normal Appearance: appropriate Assessment & Plan Assessment/Plan (1) Dizziness: PLAN: Plan #Dizziness due to orthostatic hypotension' * Dizziness has improved. Orthostatics still remain positive. * Continue hydration with IV fluid normal saline at 125 cc/h. * Fall precautions. * PT OT on board. * start on fludrocortisone * #Hypothyroidism: Synthroid #Type 2 diabetes mellitus: On metformin. #Hyperlipidemia: On statin #Depression and anxiety: On bupropion and buspirone as well as duloxetine DVT prophylaxis: SCDs Charges/Coding Visit Charges Inpatient E&M: 98780 Subs Hosp L2
[2024-10-15] MEDS: Atorvastatin Calcium 80 MG Tablet PO (21:50)
[2024-10-16] VITALS (8 sets, daily range): BP systolic 95–185; BP diastolic 43–84; PULSE 60–92; RESP 16–18; TEMP 36.3–36.6; O2SAT 96–99
[2024-10-16] MEDS: Levothyroxine 100 MCG Tablet PO (05:13)
[2024-10-16] MEDS: 0.9% Saline Lock 10 ML Syringe IV (05:14)
[2024-10-16 06:28] LABS: Absolute Lymphocyte Count 1.73 X10^3/uL (0.83-4.51); Absolute Neutrophil Count 3.8 X10^3/uL (2.0-7.7); Basophil# 0.03 X10^3/uL; Basophil% 0.5 % (0-1); Eosinophil# 0.42 X10^3/uL; Eosinophils% 6.4 % (0-5); Hematocrit 35.4 % (37-47); Hemoglobin 11.5 g/dL (12.0-15.0); Lymphocyte # 1.73 X10^3/ul (0.83-4.51); Lymphocyte % 26.5 % (19-41); Mean Corp Hgb Conc 32.5 g/dL (32-36); Mean Corpuscular Hgb 27.4 pg (27.0-32.0); Mean Corpuscular Volume 84.3 fL (81-99); Mean Platelet Vol. 10.1 fl (6.2-12.0); Monocyte# 0.52 X10^3/uL; NRBC Flagged by Analyzer 0 % (0-5); Neutrophil # 3.81 X10^3/uL (2.7-7.7); Neutrophil % 58.1 % (47-70); Platelet Count 249 K/mm3 (150-450); RBC Distribution Width CV 14.9 % (11.6-14.6); RBC Distribution Width SD 45.5 fl (35.1-43.9); White Blood Count 6.5 K/mm3 (4.4-11.0)
[2024-10-16 06:46] LABS: Anion Gap 9 (5-15); BUN 10 mg/dL (4-19); BUN/Creat Ratio 12.4 RATIO (10-20); Calcium,Total 8.7 mg/dL (7.6-11.0); Chloride 108 mmol/L (98-108); Creatinine, Serum 0.79 mg/dL (0.70-1.20); EST Glomerular Filtration Rate 76 (>60); Estimated Creatinine Clearance 68.34 ml/min (50-250); Glucose 170 mg/dL (70-99); Potassium 3.9 mmol/L (3.3-5.1); Sodium Level 140 mmol/L (133-145)
[2024-10-16] MEDS: Fludrocortisone Acetate 0.1 MG Tablet PO (08:22)
[2024-10-16] MEDS: buPROPion (XL) 300 MG TABLET.XL PO (08:22)
[2024-10-16] MEDS: busPIRone 5 MG Tablet PO ×2 (08:22→22:36)
[2024-10-16] MEDS: Docusate Sodium 100 MG Capsule PO ×2 (08:22→22:36)
[2024-10-16] MEDS: Ascorbic Acid 500 MG Tablet PO (08:22)
[2024-10-16] MEDS: Calcium Carb/Vitamin D 1 TABLET Tablet PO (08:22)
[2024-10-16] MEDS: Pantoprazole Sodium 40 MG Tablet PO (08:23)
[2024-10-16] MEDS: DULoxetine Hcl 30 MG Capsule 90 MG PO (08:23)
[2024-10-16] MEDS: Cyanocobalamin 500 MCG Tablet 1000 MCG PO (08:23)
[2024-10-16] MEDS: Magnesium Chloride 64 MG Delay Rel.Tablet 128 MG PO (08:23)
[2024-10-16 11:25] LABS: Bedside Glucose 257 mg/dL (74-106)
--- NOTE | 2024-10-16 11:29 | PN.HOSP_ITS ---
Reason for Visit Reason for Visit: Diagnoses Disorder of thyroid, unspecified (10/13/24) Type 2 diabetes mellitus with hyperglycemia (10/13/24) Orthostatic hypotension (10/13/24) Unspecified abnormalities of gait and mobility (10/13/24) Dizziness and giddiness (10/13/24) Subjective Subjective Saw patient at bedside this morning. Patient was sitting comfortably in bedside chair, conversing normally, in no acute distress. She had not had orthostatic vitals done yet this morning. She had been moved from bed to the bedside chair and had mild lightheadedness with this but was improved from previous days. No other new concerns morning. Objective Data Objective Data Vital Signs: Vital Signs Temp Pulse Resp BP Pulse Ox O2 Del Method O2 Flow Rate 97.6 F L 73 16 131/76 H 99 Room Air 2 10/16/24 08:58 10/16/24 11:00 10/16/24 08:58 10/16/24 11:00 10/16/24 08:58 10/16/24 09:17 10/14/24 04:00 Oxygen Flow Rate (L/min) 2 Oxygen Delivery Method Room Air Weight: 90.889 kg Body Mass Index (BMI) 30.4 Intake & Output: Intake and Output for Last 24 Hours 10/14/24 10/15/24 10/16/24 23:59 23:59 23:59 Intake Total 1999 1300 / 1300 Output Total 401 / 401 Balance 1599 / 1599 1999 1300 / 1300 Lab / Micro Data 10/16/24 05:48 10/16/24 05:48 Labs: Laboratory Results - last 24 hr 10/16/24 05:48: WBC 6.5, RBC 4.20, Hgb 11.5 L, Hct 35.4 L, MCV 84.3, MCH 27.4, MCHC 32.5, RDW Std Deviation 45.5 H, RDW Coeff of Alivia 14.9 H, Plt Count 249, MPV 10.1, Immature Gran % (Auto) 0.500, Neut % (Auto) 58.1, Lymph % (Auto) 26.5, [place] % (Auto) 8.0, Eos % (Auto) 6.4 H, Baso % (Auto) 0.5, Absolute Neuts (auto) 3.8, Absolute Lymphs (auto) 1.73, Nucleated RBC % 0, Sodium 140, Potassium 3.9, Chloride 108, Carbon Dioxide 23.0, Anion Gap 9, BUN 10, Creatinine 0.79, Estim Creat Clear Calc 68.34, Est GFR (MDRD) Non-Af 76, BUN/Creatinine Ratio 12.4, G lucose 170 H, Calcium 8.7 10/16/24 11:07: POC Glucose 257 H Physical Exam Const alert, oriented x3 and no apparent distress Constitutional Narrative: Elderly female, class I obesity, mildly fatigued appearing but otherwise sitting up comfortably in bedside chair, conversing normally, in no acute distress. General Appearance: cooperative and comfortable HEENT normocephalic, head/scalp atraumatic, hearing grossly normal bilaterally, nasal mucous membranes and turbinates normal and moist oral mucous membranes Eyes PERRL, EOMs intact bilaterally and conjunctivae normal Neck full ROM Chest inspection of chest normal Resp normal respiratory effort, normal air movement, no use of accessory muscles and clear to auscultation bilaterally Cardio regular rate, regular rhythm, no murmurs and peripheral pulses 2+ throughout GI normal to inspection, nondistended, normoactive bowel sounds, soft to palpation, non-tender and non-distended Back/Spine normal ROM Extremity normal to inspection, full ROM and no pedal edema Skin no rashes or lesions noted Neuro moves all extremities and no focal motor deficits Speech: speech normal Motor Exam: strength 5/5 throughout Psych mental status grossly normal Assessment & Plan Assessment/Plan (1) Orthostatic hypotension: PLAN: Plan Patient is a 79-year-old female who presented [facility] ED on 10/13/2024 with presyncopal symptoms. 1. Persistent orthostatic hypotension ? Presented with presyncopal symptoms and was found to be severely positive on orthostatic vitals. Given significant IV fluid resuscitation but remained orthostatics positive. Started on fludrocortisone but unfortunately was again orthostatic positive on morning of 10/16. Will start midodrine 10 mg 3 times daily for suspected autonomic dysfunction and recheck orthostatic vital signs again tomorrow morning. Once orthostatics improve, will be okay for discharge home. Chronic medical conditions: ? Class I obesity: BMI 30 on admit. Complicates hospital course, care and prognosis. ? Hypothyroidism: Continue home Synthroid. ? Type 2 diabetes mellitus with neuropathy: Continue treatment with sliding scale insulin with meals while inpatient. Continue home pregabalin. ? Hyperlipidemia: Continue home statin. ? Depression/anxiety: Continue home duloxetine, bupropion and BuSpar. ? GERD: Continue home PPI. DVT prophylaxis: Lovenox CODE STATUS: Full code, unverified Expected disposition: Home, 1 to 2 days Total clinical time spent by myself addressing the patient's medical issues, reviewing all the data, and collaborating with patient's care team: 35 minutes. Charges/Coding Visit Charges Inpatient E&M: 22054 Subs Hosp L2
[2024-10-16] MEDS: Midodrine HCl 5 MG Tablet 10 MG PO ×2 (12:07→16:11)
[2024-10-16] MEDS: Pregabalin 75 MG Capsule PO ×2 (14:32→22:36)
[2024-10-16] MEDS: Insulin Lispro 100 UNIT/ML INSULN.PEN SC ×2 (16:08→22:40)
[2024-10-16 16:27] LABS: Bedside Glucose 263 mg/dL (74-106)
[2024-10-16] MEDS: Atorvastatin Calcium 40 MG Tablet PO (22:36)
[2024-10-16 23:21] LABS: Bedside Glucose 166 mg/dL (74-106)
[2024-10-17 02:15] VITALS: BP 148/56; PULSE 52; RESP 16; TEMP 36.4; O2SAT 98
[2024-10-17] MEDS: Pregabalin 75 MG Capsule PO (06:21)
[2024-10-17] MEDS: Levothyroxine 100 MCG Tablet PO (06:21)
[2024-10-17] MEDS: Insulin Lispro 100 UNIT/ML INSULN.PEN SC ×2 (06:25→11:23)
[2024-10-17 07:00] LABS: Bedside Glucose 157 mg/dL (74-106)
[2024-10-17 07:00] LABS: Absolute Lymphocyte Count 2.05 X10^3/uL (0.83-4.51); Basophil# 0.03 X10^3/uL; Basophil% 0.4 % (0-1); Eosinophil# 0.35 X10^3/uL; Hematocrit 37.2 % (37-47); Hemoglobin 12.2 g/dL (12.0-15.0); Lymphocyte # 2.05 X10^3/ul (0.83-4.51); Lymphocyte % 29.4 % (19-41); Mean Corp Hgb Conc 32.8 g/dL (32-36); Mean Corpuscular Hgb 27.5 pg (27.0-32.0); Mean Platelet Vol. 9.8 fl (6.2-12.0); Monocyte# 0.55 X10^3/uL; Monocyte% 7.9 % (0-10); NRBC Flagged by Analyzer 0 % (0-5); Neutrophil # 3.97 X10^3/uL (2.7-7.7); Platelet Count 256 K/mm3 (150-450); RBC Distribution Width SD 45.6 fl (35.1-43.9); Red Blood Count 4.43 M/mm3 (4.2-5.4)
[2024-10-17 07:51] VITALS: BP 110/54; PULSE 67; RESP 18; TEMP 35.7; O2SAT 98
[2024-10-17 08:00] VITALS: BP 103/48; BP 122/50; BP 175/86; PULSE 61; PULSE 70; PULSE 75
[2024-10-17 08:11] LABS: Anion Gap 11 (5-15); BUN 12 mg/dL (4-19); BUN/Creat Ratio 14.7 RATIO (10-20); Chloride 107 mmol/L (98-108); Creatinine, Serum 0.82 mg/dL (0.70-1.20); EST Glomerular Filtration Rate 73 (>60); Estimated Creatinine Clearance 66.67 ml/min (50-250); Glucose 159 mg/dL (70-99); Potassium 3.8 mmol/L (3.3-5.1); Sodium Level 141 mmol/L (133-145)
[2024-10-17] MEDS: Fludrocortisone Acetate 0.1 MG Tablet PO (08:27)
[2024-10-17] MEDS: Calcium Carb/Vitamin D 1 TABLET Tablet PO (08:27)
[2024-10-17] MEDS: Midodrine HCl 5 MG Tablet 10 MG PO ×2 (08:28→11:24)
[2024-10-17] MEDS: Docusate Sodium 100 MG Capsule PO (08:29)
[2024-10-17] MEDS: busPIRone 5 MG Tablet PO (08:29)
[2024-10-17] MEDS: DULoxetine Hcl 30 MG Capsule 90 MG PO (08:29)
[2024-10-17] MEDS: Magnesium Chloride 64 MG Delay Rel.Tablet 128 MG PO (08:30)
[2024-10-17] MEDS: Pantoprazole Sodium 40 MG Tablet PO (08:31)
[2024-10-17] MEDS: Ascorbic Acid 500 MG Tablet PO (08:31)
[2024-10-17] MEDS: buPROPion (XL) 300 MG TABLET.XL PO (08:31)
[2024-10-17] MEDS: Cyanocobalamin 500 MCG Tablet 1000 MCG PO (08:32)
[2024-10-17 11:52] LABS: Bedside Glucose 209 mg/dL (74-106)
--- NOTE | 2024-10-17 12:07 | DS.PCM_ITS ---
Providers Date of Admission: 10/13/24 Date of Discharge: 10/17/24 Primary Care Physician: Dr. Sumit Whipple MD Reason For Visit: DIZZINESS WITH FALL RISK Diagnosis Discharge Diagnosis (1) Orthostatic hypotension: Status: Acute Code(s): I95.1 - Orthostatic hypotension Plan #Dizziness due to orthostatic hypotension' * Dizziness has improved. Orthostatics still remain positive. * Continue hydration with IV fluid normal saline at 125 cc/h. * Fall precautions. * PT OT on board. * start on fludrocortisone * #Hypothyroidism: Synthroid #Type 2 diabetes mellitus: On metformin. #Hyperlipidemia: On statin #Depression and anxiety: On bupropion and buspirone as well as duloxetine DVT prophylaxis: SCDs Medications at Discharge Home Medications pantoprazole 40 mg tablet,delayed release 40 mg PO DAILY GERD 10/22/18 pregabalin 75 mg capsule 75 mg PO TID pain 08/29/22 levothyroxine 100 mcg tablet 100 mcg PO QDAY thyroid 12/10/23 rosuvastatin 40 mg tablet 40 mg PO QDAY HLD 12/10/23 ascorbic acid (vitamin C) 500 mg tablet 500 mg PO QDAY vitamin 05/21/24 calcium 600 mg (as carbonate)-vit D3 20 mcg (800 unit) chewable tablet (Caltrate plus D) 1 tab PO QAM supplement 05/21/24 cyanocobalamin (vitamin B-12) 1,000 mcg tablet (Vitamin B-12) 1,000 mcg PO QDAY supplement 05/21/24 d-mannose 500 mg capsule 500 mg PO .QD spasms 05/21/24 docusate sodium 100 mg capsule 100 mg PO BID stool softner 05/21/24 hydroxyzine HCl 50 mg tablet 50 mg PO Q6H PRN anxiety 05/21/24 magnesium oxide 500 mg capsule 500 mg PO QDAY SUPPLEMENT 05/21/24 metformin 1,000 mg tablet 1,000 mg PO BID DM 05/21/24 acetaminophen 500 mg tablet 500 mg PO Q8H PRN PAIN 06/11/24 bupropion HCl 300 mg 24 hr tablet, extended release 300 mg PO QDAY depression #90 tabs 06/11/24 buspirone 5 mg tablet 5 mg PO BID mood #60 tabs 09/05/24 duloxetine 30 mg capsule,delayed release 30 mg PO DAILY depression #90 caps 09/05/24 duloxetine 60 mg capsule,delayed release 60 mg PO DAILY mood #90 caps 09/05/24 tiarra.stocking,knee,reg,smal (T.E.D. Anti-Embolism Stocking) #24 ea 10/17/24 fludrocortisone 0.1 mg tablet 0.1 mg PO BREAKFAST #30 tabs 10/17/24 midodrine 5 mg tablet 10 mg (2 x 5 mg) PO TIDCM #90 tabs 10/17/24 Hospital Course Operations None Procedures None Summary of Care Provided Minutes Spent on Discharge: 45 Hospital Course: Patient is a 79-year-old male with a past medical history as outlined was admitted through the ED on 10/13/2024 with a complaint of dizziness. His symptoms are started the day before admission while she was at [facility]. She said she stood up and was walking she felt like she was going to fall down and passed out. The weakness was mainly with standing. She had no other complaints. In the ED she was hydrated with IV fluids. Orthostatics were checked which was still positive so she was admitted to be managed for dizziness and near syncope due to orthostatic hypotension. She was hydrated with fluids but orthostatics still remain positive. She was therefore started on p.o. fludrocortisone and subsequently midodrine was also added on. Orthostatics were mainly from lying to a sitting position. From sitting to standing position orthostatics were negative. Patient however felt much better. She was encouraged to drink fluids and BERLIN stockings were also ordered. On 10/17/2024 patient felt she was much better and could go home. Orthostatics checked that they still showed that she was positive from the lying to the sitting position but more from the sitting to the standing position. Patient was counseled that she should take her time from lying to sitting and before standing as this would precipitate the orthostatic hypotension. She was counseled to keep well-hydrated and to with the BERLIN stockings which have been ordered. She was to be compliant with the fludrocortisone and the midodrine and is follow-up with her primary care doctor within 1 week for medications to be adjusted as needed. Patient seen and examined prior to discharge. She felt much better. As soon as I walked in she stated that she wanted to be discharged today. Labs and vitals reviewed. Home meds reviewed and reconciled. Physical Exam Const alert, oriented x3, no apparent distress and well nourished General Appearance: cooperative, comfortable and well developed Orientation / Consciousness: awake Exam Limitations: no limitations HEENT normocephalic, head/scalp atraumatic, hearing grossly normal bilaterally, nasal mucous membranes and turbinates normal, moist oral mucous membranes and oropharynx normal Mouth: oral and palatal mucosa normal Eyes PERRL, EOMs intact bilaterally and conjunctivae normal Neck full ROM, no lymphadenopathy, supple and no JVD Lymph Lymphatic: no lymphadenopathy noted and no lymphedema noted Chest inspection of chest normal Resp normal respiratory effort, normal air movement, no use of accessory muscles and clear to auscultation bilaterally Cardio regular rate, regular rhythm, S1 normal heart sound, S2 normal heart sound, no murmurs and peripheral pulses 2+ throughout GI normal to inspection, nondistended, normoactive bowel sounds, soft to palpation, non-tender and non-distended Back/Spine normal ROM Extremity normal to inspection, full ROM, normal capillary refill, no clubbing, cyanosis or edema, no calf tenderness and no pedal edema General Extremity: no tenderness to palpation of joints or extremities Skin no rashes or lesions noted General Skin Exam: no breakdown and turgor normal Neuro oriented x3, CN's II-XII intact bilaterally, moves all extremities and no focal motor deficits Sensorium / Orientation: awake and alert Coordination / Balance: [id number] test normal Speech: speech normal Motor Exam: strength 5/5 throughout and general weakness Psych mental status grossly normal, thought process normal, cooperative and affect normal Appearance: appropriate Weight / BMI Weight Weight: 200 lb 6 oz Body Mass Index (BMI) 30.4 ABG / Lab / Microbiology Data 10/17/24 06:50 10/17/24 06:50 Laboratory: Laboratory Results - last 24 hr 10/16/24 22:40: POC Glucose 166 H 10/17/24 06:24: POC Glucose 157 H 10/17/24 06:50: WBC 7.0, RBC 4.43, Hgb 12.2, Hct 37.2, MCV 84.0, MCH 27.5, MCHC 32.8, RDW Std Deviation 45.6 H, RDW Coeff of Alivia 15.0 H, Plt Count 256, MPV 9.8, Immature Gran % (Auto) 0.300, Neut % (Auto) 57.0, Lymph % (Auto) 29.4, Adams % (Auto) 7.9, Eos % (Auto) 5.0, Baso % (Auto) 0.4, Absolute Neuts (auto) 4.0, Absolute Lymphs (auto) 2.05, Nucleated RBC % 0, Sodium 141, Potassium 3.8, Chloride 107, Carbon Dioxide 22.0, Anion Gap 11, BUN 12, Creatinine 0.82, Estim Creat Clear Calc 66.67, Est GFR (MDRD) Non-Af 73, BUN/Creatinine Ratio 14.7, G lucose 159 H, Calcium 9.0 10/17/24 11:21: POC Glucose 209 H D/C Instructions Discharge Diet: Low fat / Low cholesterol Discharge Activity: Return to Normal Activity Weight Bearing Status: Weight bearing as tolerated Call your doctor if you observe: Fever of 101 or Higher, Shortness of breath, Dizziness, Swelling in the ankles, Chest pain and Increased palpitations (irregular heartbeat) DC O2, CPAP, BIPAP Needs Home O2 Discharge instructions: No DC home with Oxygen: No Meaningful Use Info Meaningful Use Meaningful Use Diagnoses (Choose all that apply): None applicable Ischemic Stroke Statin Dosing Therapy Reference: STATIN DOSE THERAPY REFERENCE: * Patients > 75 years receive moderate or high dose statin therapy. * Patients 75 years or YOUNGER should receive HIGH intensity statin dose unless contraindicated. You will be required to document reason for non-treatment if statin daily dose does not meet guidelines. HIGH DOSE STATIN THERAPY DAILY Atorvastatin > than or = to 40 mg Rosuvastatin > than or = to 20 mg Amlodipine + Atorvastatin > than or = to 2.5/40 mg Ezetimibe + Simvastatin 10/80 mg Simvastatin 80mg Discharge Plan Admission Admit Date/Time: 10/13/24 20:05 Primary Reason for Your Visit: orthostatic hypotension Attending Provider: Syeda Quick Primary Care Provider: Sumit Whipple Chi Consulting Providers: Andi White; Syeda Quick; Juanito Saavedra Instructions Patient Instructions: Orthostatic Hypotension, ED Hypotension, Orthostatic Additional Instructions / Restrictions: Patient counseled to take her time to get up from lying to sitting, then from sitting to standing position to prevent a syncopal or near syncopal event. Discharge Orders/Prescriptions Prescriptions: New midodrine 5 mg Tablet 10 mg PO TIDCM Qty: 90 2RF fludrocortisone 0.1 mg Tablet 0.1 mg PO BREAKFAST Qty: 30 2RF (DME) T.EMadina Anti-Embolism Stocking Misc See Rx Instructions .Route Qty: 24 0RF Rx Instructions: As directed Continued pregabalin 75 mg capsule 75 mg PO TID levothyroxine 100 mcg tablet 100 mcg PO QDAY rosuvastatin 40 mg tablet 40 mg PO QDAY hydroxyzine HCl 50 mg tablet 50 mg PO Q6H PRN (Reason: anxiety) bupropion HCl 300 mg tablet extended release 24 hr 300 mg PO QDAY Qty: 90 1RF d-mannose 500 mg capsule 500 mg PO .QD ascorbic acid (vitamin C) 500 mg tablet 500 mg PO QDAY docusate sodium 100 mg capsule 100 mg PO BID Caltrate 600 plus D 600 mg-20 mcg (800 unit) tablet,chewable 1 tab PO QAM cyanocobalamin (vitamin B-12) [Vitamin B-12] 1,000 mcg tablet 1,000 mcg PO QDAY duloxetine 60 mg capsule,delayed release(DR/EC) 60 mg PO DAILY Qty: 90 1RF Rx Instructions: take in addition to 1 30mg capsule for a total of 90mg daily buspirone 5 mg tablet 5 mg PO BID Qty: 60 1RF duloxetine 30 mg capsule,delayed release(DR/EC) 30 mg PO DAILY Qty: 90 1RF Rx Instructions: take in addition to 1 60mg capsule for a total of 90mg daily pantoprazole 40 MG tablet 40 mg PO DAILY metformin 1,000 mg tablet 1,000 mg PO BID magnesium oxide 500 mg capsule 500 mg PO QDAY acetaminophen 500 mg tablet 500 mg PO Q8H PRN (Reason: PAIN) Referrals / Follow Up: Sumit Whipple Chi, MD [Primary Care Provider] - Within 1 Week Disposition Disposition (needs filled in before D/C Order can be placed): Home, Self Care Charges/Coding Visit Charges Inpatient E&M: 47384 Disch Hosp >30min
--- NOTE | 2024-10-17 12:49 | CASEMGMT ---
NADER TOLEDO NOTE: Discharge order is in. RN CM to room. Pt sitting up in chair. Sisters @ bedside and will be taking pt home. They plan on staying with pt until her brother returns home. Pt would like to have meds delivered to her room from [facility] retail pharmacy. Pharmacy notified. Pt aware the pharmacy does not carry BERLIN hose and made aware of locations this can be purchased. She voices appreciation. Pt denies having further discharge needs/concerns. Lilly MONZONN NADER TOLEDO
== END 2024-10-17 14:55 | disposition home or self-care (01) | DRG 312 ==
LOC: ED 19:02 → MS3 20:38
PROVIDERS: Hospitalist; Admitting Provider Family Medicine; Emergency Provider Emergency Medicine; PCP Family Medicine Geriatric Medicine; Visit Provider Student in an Organized Health Care Education/Training Program
DX: I95.1 Orthostatic hypotension (principal); E03.9 Hypothyroidism, unspecified; E11.65 Type 2 diabetes mellitus with hyperglycemia; I10 Essential (primary) hypertension; F32.A Depression, unspecified; Z68.30 Body mass index [BMI] 30.0-30.9, adult; E86.0 Dehydration; E78.5 Hyperlipidemia, unspecified; F41.9 Anxiety disorder, unspecified; K21.9 Gastro-esophageal reflux disease without esophagitis; E66.811 Obesity, class 1; Z79.84 Long term (current) use of oral hypoglycemic drugs; Z79.890 Hormone replacement therapy; Z79.899 Other long term (current) drug therapy
CPT/HCPCS: 36415; 80048; 82962; 85025; 85610; 85730; 93005; 97161; 99285; A4216

== ENCOUNTER → 2024-10-21 | Outpatient (CLI) | payer MEDICARE, BC, SELFPAY ==
--- NOTE | 2024-10-21 14:29 | RAD_ITS ---
EXAM: XR Cervical Spine Flexion/Extension Only, 2 or 3 Views CLINICAL INDICATION: LOW BACK PAIN TECHNIQUE: Lateral flexion/extension views of the cervical spine. COMPARISON: No relevant prior studies available. FINDINGS: VERTEBRAE: Degenerative facet arthropathy throughout the lumbar spine, most prominent in the lower lumbar spine. Normal alignment. No acute fracture. DISC SPACES: Degenerative disc disease throughout the lumbar spine. SOFT TISSUES: Unremarkable. RAD/L/S Spine Min 4 Views IMPRESSION: 1. No acute fracture. 2. If symptoms persist, further evaluation with MRI is recommended. 3. Degenerative changes lumbar spine as described. Reading Location: [facility]
== END | disposition home or self-care (01) ==
LOC: RAD 14:22
PROVIDERS: PCP Family Medicine Geriatric Medicine; Referring Provider Family Medicine Geriatric Medicine; Visit Provider Family Medicine Geriatric Medicine
DX: M54.50 Low back pain, unspecified (principal)
CPT/HCPCS: 72110

== ENCOUNTER 2024-11-14 10:37 | Emergency (ER) | payer MEDICARE, BC, SELFPAY ==
[2024-11-14 10:38] VITALS: BP 153/86; PULSE 63; RESP 16; TEMP 36.4; O2SAT 98; BMI 30.7
--- NOTE | 2024-11-14 12:06 | ED.VIS.FALL ---
HPI HPI - Fall History of Present Illness Chief Complaint: Fall Informant: patient and family Narrative Narrative: Presents by EMS from home mechanical fall prior to arrival. Ambulates with a walker at baseline. States she was bending over to pick someone floor she cannot get it she stood back up took 2 steps back falling against the wall. Pain to her right hip and left hip. History of left total hip arthroplasty 20 years ago in [place]. She took naproxen. No head injuries. No anticoagulants. Per family with brother and sister in room reports was recently admitted to the hospital with fall however reported blood pressure was low she ended being discharged on fludrocortisone and midodrine. She was given 8 L of fluid while in the hospital. She reports she had 2 additional falls last month prior to hospitalization. She saw her PCP yesterday. Reported that she has scheduled at noon for 1 L of fluids to be given. She has no recent vomiting or diarrhea. Denies lightheaded symptoms. She is tolerated opiate pain medicines with Benadryl in the past. Prior similar symptoms: Yes PFSH PFSH Medical History Dizziness Hyperglycemia due to type 2 diabetes mellitus Orthostatic hypotension Abnormal gait Anxiety Depression Sleep apnea Thyroid disease Diabetes mellitus Hypertension Home Medications ?Medication ?Instructions ?Recorded ?Last Taken ?Type pantoprazole 40 mg tablet,delayed 40 mg PO DAILY GERD 10/22/18 Unknown History release pregabalin 75 mg capsule 75 mg PO TID pain 08/29/22 Unknown History levothyroxine 100 mcg tablet 100 mcg PO QDAY thyroid 12/10/23 Unknown History rosuvastatin 40 mg tablet 40 mg PO QDAY HLD 12/10/23 Unknown History ascorbic acid (vitamin C) 500 mg 500 mg PO QDAY vitamin 05/21/24 Unknown History tablet calcium 600 mg (as carbonate)-vit 1 tab PO QAM supplement 05/21/24 Unknown History D3 20 mcg (800 unit) chewable tablet (Caltrate plus D) cyanocobalamin (vitamin B-12) 1,000 mcg PO QDAY supplement 05/21/24 Unknown History 1,000 mcg tablet (Vitamin B-12) d-mannose 500 mg capsule 500 mg PO .QD spasms 05/21/24 Unknown History docusate sodium 100 mg capsule 100 mg PO BID stool softner 05/21/24 Unknown History hydroxyzine HCl 50 mg tablet 50 mg PO Q6H PRN anxiety 05/21/24 Unknown History magnesium oxide 500 mg capsule 500 mg PO QDAY SUPPLEMENT 05/21/24 Unknown History metformin 1,000 mg tablet 1,000 mg PO BID DM 05/21/24 Unknown History acetaminophen 500 mg tablet 500 mg PO Q8H PRN PAIN 06/11/24 Unknown History bupropion HCl 300 mg 24 hr tablet, 300 mg PO QDAY depression #90 tabs 06/11/24 Unknown Rx extended release buspirone 5 mg tablet 5 mg PO BID mood #60 tabs 09/05/24 Unknown Rx duloxetine 30 mg capsule,delayed 30 mg PO DAILY depression #90 caps 09/05/24 Unknown Rx release duloxetine 60 mg capsule,delayed 60 mg PO DAILY mood #90 caps 09/05/24 Unknown Rx release tiarra.stocking,knee,reg,smal #24 ea 10/17/24 Unknown Rx (T.E.D. Anti-Embolism Stocking) fludrocortisone 0.1 mg tablet 0.1 mg PO BREAKFAST #30 tabs 10/17/24 Unknown Rx midodrine 5 mg tablet 10 mg (2 x 5 mg) PO TIDCM #90 tabs 10/17/24 Unknown Rx diphenhydramine HCl 25 mg capsule 25 mg PO BID PRN PRN itching #20 11/14/24 Unknown Rx (Benadryl) caps docusate sodium 100 mg capsule 100 mg PO DAILY #30 caps 11/14/24 Unknown Rx (Colace) oxycodone 5 mg tablet 2.5 mg (1/2 x 5 mg) PO BID PRN 11/14/24 Unknown Rx pain 5 days #10 tabs Allergy/AdvReac Type Severity Reaction Status Date / Time Opioids - Morphine Analogues Allergy Rash Verified 11/14/24 10:43 adhesive tape AdvReac Unknown Rash Verified 11/14/24 10:43 tramadol (From Ultram) AdvReac Itching Verified 11/14/24 10:43 Family History Mother Cancer cervical Brother CVA (cerebral vascular accident) Father CVA (cerebral vascular accident) Sister , at the age of 65 Liver cancer Surgical History Cyst of left breast Status post hip surgery H/O knee surgery H/O wrist surgery Social History Smoking Status: Never smoker alcohol intake: current details: Occasional on avg 1 glass of wine Q mth substance use type: does not use ROS ROS ED Constitutional Constitutional ED: Denies chills, fever(s) or sweats ENT ENT ED: Denies sore throat Cardiovascular Cardiovascular: Denies chest pain, leg edema, palpitations or racing heartbeat Respiratory/Chest Respiratory/Chest: Denies cough, dyspnea or dyspnea on exertion Gastrointestinal Gastrointestinal: Denies abdominal pain, diarrhea, nausea or vomiting Genitourinary Genitourinary ED: Denies dysuria, hematuria or urinary frequency Musculoskeletal Musculoskeletal: Reports extremity pain and other Details: Bilateral hip pain ; Denies back pain or neck pain Integumentary Denies rash or wounds Neurologic Neurologic: Denies headache(s), paresthesias or weakness EXAM Physical Exam Const Vital Signs: 11/14/24 10:38 11/14/24 10:43 11/14/24 14:37 Temperature 97.6 F L Temperature Source Oral Pulse Rate 63 73 Respiratory Rate 16 14 Respiratory Effort Normal Non-Labored Respiratory Depth Normal Respiratory Pattern Normal Blood Pressure 153/86 H 172/67 H Blood Pressure Mean 108 102 Pulse Ox 98 96 Oxygen Delivery Method Room Air Positive well nourished and well developed General Appearance ED: well developed and NAD HEENT Reports moist mucous membranes normocephalic and atraumatic Eyes General Eye ED: Yes normal appearance of both eyes Neck full ROM Chest Wall inspection of chest normal and palpation of chest normal Chest: Negative for tenderness Resp normal respiratory effort and normal air movement Effort and Inspection: symmetric chest movement; Negative for respiratory distress Cardio regular rate, regular rhythm and no murmurs Peripheral Pulses: pulses 2+ throughout GI normal to inspection, nondistended, normoactive bowel sounds and non-tender Palpation: Negative for guarding or rebound tenderness present Extremity Extremity Narrative: No shortening rotation lower extremities negative logroll. Tender palpation bilateral greater trochanteric region. There is a healed left hip scar. Soft compartments. Pulses intact distally. Upper extremities full range of motion. General Extremety ED: Yes tenderness; Negative for edema General Extremity: Negative for edema Neuro oriented x3 and no sensory deficits noted Sensorium / Orientation: awake and alert Skin no rashes or lesions noted and no wounds MDM MDM MDM Narrative Medical decision making narrative: Interventions / MDM: Differential diagnosis: Hip contusions, fall Diagnosis considered but do not suspect: N/A My EKG interpretation: Hospitalization from October 13 to . Orthostatic positive. Had fludrocortisone and midodrine added secondary to this. BERLIN hose stockings in the hospital. Continue her medications outpatient follow-up with her doctor. Imaging independently reviewed and interpreted by myself: 3 view right hip with pelvis: No fractures. Lucencies in the pelvis with differential multiple myeloma per radiology which should be ruled out. Left femur x-ray 2 views: Hardware intact no fractures. External documents reviewed: N/A Test considered but not ordered:N/A ED course: Patient mechanical fall has pain both hips right greater than left. Previous left total hip arthroplasty. No shortening or rotation. Will obtain image studies bilateral hips pelvis along with left femur. In addition, reports was supposed to get fluids at noon today. Clinically well-hydrated blood pressure stable. Will check basic labs, 1 L normal saline bolus ordered. Order for oxycodone and Benadryl. Will reevaluate. 1455: Patient was able to ambulate after x-rays were negative for any assistance getting up. She is home with brother. There is concerns with brother needing shoulder surgery. I did discuss with licensed practical nurse in the ED. She had admission in the last 30 days for 4 days. Due to this she does qualify for skilled placement for she agreed. She is excepted to [facility] for physical therapy and Occupational Therapy evaluation and further treatment. With results of x-ray is concerning with lucencies, discussed with family will need further workup as an outpatient. I will write for short prescription for pain medicines for which she wants lowest dose possible stool softeners to avoid constipation. Benadryl for potential side effects. 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 It may contain incorrect words, spelling, and punctuation that were not noted in checking the note before signing. Lab Data Attestation: I reviewed the patient's lab results. Labs: Laboratory Results - last 24 hr 11/14/24 Unknown WBC 7.9 RBC 4.96 Hgb 13.7 Hct 42.2 MCV 85.1 MCH 27.6 MCHC 32.5 RDW Std Deviation 46.8 H RDW Coeff of Alivia 15.3 H Plt Count 349 MPV 9.5 Immature Gran % (Auto) 0.400 Neut % (Auto) 66.9 Lymph % (Auto) 22.0 [place] % (Auto) 6.4 Eos % (Auto) 3.9 Baso % (Auto) 0.4 Absolute Neuts (auto) 5.3 Absolute Lymphs (auto) 1.74 Nucleated RBC % 0 Sodium 139 Potassium 4.7 Chloride 102 Carbon Dioxide 24.9 Anion Gap 12 BUN 20 H Creatinine 0.94 Estim Creat Clear Calc 58.42 Est GFR (MDRD) Non-Af 62 BUN/Creatinine Ratio 21.4 H Glucose 104 H Calcium 10.1 Radiography Diagnostic Testing: Clinical Impression(s) from Imaging Studies Femur X-Ray 11/14/24 12:25 IMPRESSION: No acute abnormality is seen. Reading Location: [place] [address] Hip/Pelvis X-Ray 11/14/24 12:25 IMPRESSION: No acute fracture or subluxation. Questionable tiny lucencies seen as described. Multiple myeloma should be ruled out. Reading Location: [place] [address] Discharge Plan Triage Chief Complaint: Fall ED Provider: Zack Zamudio Dx/Rx/DC Orders Clinical Impression: Contusion of hip, right, Contusion of hip, left, Fall Instructions: ED Hip Contusion, ED Fall Prevention Prescriptions: New oxycodone 5 mg tablet 2.5 mg PO BID PRN (Reason: pain) 5 Days Qty: 10 0RF docusate sodium [Colace] 100 mg capsule 100 mg PO DAILY Qty: 30 0RF diphenhydramine HCl [Benadryl] 25 mg capsule 25 mg PO BID PRN PRN (Reason: itching) Qty: 20 0RF Rx Instructions: Take if being given oxycodone to avoid side effects of itching. No Action pregabalin 75 mg capsule 75 mg PO TID levothyroxine 100 mcg tablet 100 mcg PO QDAY rosuvastatin 40 mg tablet 40 mg PO QDAY hydroxyzine HCl 50 mg tablet 50 mg PO Q6H PRN (Reason: anxiety) bupropion HCl 300 mg tablet extended release 24 hr 300 mg PO QDAY Qty: 90 1RF d-mannose 500 mg capsule 500 mg PO .QD ascorbic acid (vitamin C) 500 mg tablet 500 mg PO QDAY docusate sodium 100 mg capsule 100 mg PO BID Caltrate 600 plus D 600 mg-20 mcg (800 unit) tablet,chewable 1 tab PO QAM cyanocobalamin (vitamin B-12) [Vitamin B-12] 1,000 mcg tablet 1,000 mcg PO QDAY duloxetine 60 mg capsule,delayed release(DR/EC) 60 mg PO DAILY Qty: 90 1RF Rx Instructions: take in addition to 1 30mg capsule for a total of 90mg daily buspirone 5 mg tablet 5 mg PO BID Qty: 60 1RF duloxetine 30 mg capsule,delayed release(DR/EC) 30 mg PO DAILY Qty: 90 1RF Rx Instructions: take in addition to 1 60mg capsule for a total of 90mg daily pantoprazole 40 MG tablet 40 mg PO DAILY metformin 1,000 mg tablet 1,000 mg PO BID magnesium oxide 500 mg capsule 500 mg PO QDAY acetaminophen 500 mg tablet 500 mg PO Q8H PRN (Reason: PAIN) midodrine 5 mg Tablet 10 mg PO TIDCM Qty: 90 2RF fludrocortisone 0.1 mg Tablet 0.1 mg PO BREAKFAST Qty: 30 2RF (DME) T.E.D. Anti-Embolism Stocking Misc See Rx Instructions .Route Qty: 24 0RF Rx Instructions: As directed Primary Care Provider: Sumit Whipple Chi Referrals: Sumit Whipple Chi, MD [Primary Care Provider] - 1-2 Weeks Activity Restrictions/Additional Instructions: X-rays were negative for fracture. You had lucencies in your pelvis on x-ray with differential multiple myeloma I can be worked up with your primary doctor. Take medications as prescribed. You are discharged to [facility] for continued care and management. Print Language: Georgian Disposition Disposition: Home, Self Care
[2024-11-14] MEDS: 0.9% Normal Saline (1000mL) 1,000 ML 1000 ML IV (12:11)
[2024-11-14] MEDS: oxyCODONE 5 MG Tablet PO (12:11)
[2024-11-14] MEDS: DiphenhydrAMINE 25 MG Capsule PO (12:13)
[2024-11-14 12:21] LABS: Absolute Lymphocyte Count 1.74 X10^3/uL (0.83-4.51); Absolute Neutrophil Count 5.3 X10^3/uL (2.0-7.7); Basophil# 0.03 X10^3/uL; Basophil% 0.4 % (0-1); Eosinophil# 0.31 X10^3/uL; Eosinophils% 3.9 % (0-5); Hematocrit 42.2 % (37-47); Hemoglobin 13.7 g/dL (12.0-15.0); Lymphocyte # 1.74 X10^3/ul (0.83-4.51); Mean Corp Hgb Conc 32.5 g/dL (32-36); Mean Corpuscular Hgb 27.6 pg (27.0-32.0); Mean Corpuscular Volume 85.1 fL (81-99); Mean Platelet Vol. 9.5 fl (6.2-12.0); Monocyte# 0.51 X10^3/uL; Monocyte% 6.4 % (0-10); NRBC Flagged by Analyzer 0 % (0-5); Neutrophil # 5.29 X10^3/uL (2.7-7.7); Neutrophil % 66.9 % (47-70); Platelet Count 349 K/mm3 (150-450); RBC Distribution Width CV 15.3 % (11.6-14.6); RBC Distribution Width SD 46.8 fl (35.1-43.9); Red Blood Count 4.96 M/mm3 (4.2-5.4); White Blood Count 7.9 K/mm3 (4.4-11.0)
--- NOTE | 2024-11-14 12:25 | RAD_ITS ---
PROCEDURE: HIP, UNI W/ PELVIS 2-3 VIEWS 11/14/2024 REASON FOR EXAM: INJURY TECHNIQUE: Four views of the left hip hip COMPARISON: None FINDINGS: The patient is status post left hip replacement. There is good alignment. No acute abnormality is seen. Moderate degree of right hip osteoarthritis. Moderate amount of fecal material is seen in the colon. Degenerative changes of the visualized lumbar spine. There are tiny hypodense lesions seen in the proximal right femur as well as the pelvic bones. Multiple myeloma should be ruled out. RAD/HIP, UNI W/ Pelvis 2-3 Views IMPRESSION: No acute fracture or subluxation. Questionable tiny lucencies seen as described. Multiple myeloma should be rule d out. Reading [facility]
--- NOTE | 2024-11-14 12:25 | RAD_ITS ---
EXAM: Left femur. CLINICAL HISTORY: Status post left total hip replacement. Pain following a fall. COMPARISON: None TECHNIQUE: Four views were obtained. FINDINGS: The patient is status post left hip and knee replacement. There is good alignment. No acute abnormality is seen. Soft tissue swelling. RAD/Femur Min 2 Views IMPRESSION: No acute abnormality is seen. Reading Location: [place] [id number]
[2024-11-14 12:40] LABS: Anion Gap 12 (5-15); BUN 20 mg/dL (4-19); BUN/Creat Ratio 21.4 RATIO (10-20); Calcium,Total 10.1 mg/dL (7.6-11.0); Carbon Dioxide 24.9 mmol/L (21.0-32.0); Chloride 102 mmol/L (98-108); Creatinine, Serum 0.94 mg/dL (0.70-1.20); EST Glomerular Filtration Rate 62 (>60); Estimated Creatinine Clearance 58.42 ml/min (50-250); Glucose 104 mg/dL (70-99); Potassium 4.7 mmol/L (3.3-5.1); Sodium Level 139 mmol/L (133-145)
[2024-11-14 14:37] VITALS: BP 172/67; PULSE 73; RESP 14; O2SAT 96
--- NOTE | 2024-11-14 14:54 | PCA ---
CALLED PHYSICIANS AT 1447 AND SPOKE TO JOSETTE. WAS GIVEN AND ETA OF 2-3 HRS FOR TAKING THE PATIENT TO [facility]. I ASKED TO TRY [facility] SINCE ITS A LOCAL RIDE.
--- NOTE | 2024-11-14 15:22 | CM.ED ---
Social Work SW entered room, introduced self to patient and patients family. Patients sister and brother both at bedside. Patient and family stated they felt patient would benefit from a rehab stay and she has had a recent hospitalization, within the last month, and has fallen three times in the last 2 weeks. Patient reports to having difficulty bathing and dressing, needing assistance to get into bed and is unsteady on her feet. Patient offered a list of?SNF providers including quality and resource use data and consistent with the patient's preferred geographic region, medical needs, and insurance network, however patient declined stating she would like to go to [place] first and [facility] second. Danni at [facility] confirmed open bed was available, referral sent over via careport. Danni called back accepting patient. DANIARR completed and sent in Careport. [place], patient and family notified that transport was scheduled for 5-6pm. No further needs identified at this time. Corina Chambers, IT ANALYST, BUSINESS DEVELOPMENT ASSISTANT
--- NOTE | 2024-11-14 16:33 | ED.RN ---
Attempted to call nurse to nurse report to [facility] x2. Left message with admissions person for nursing to call back to obtain report.
--- NOTE | 2024-11-14 17:01 | ED.RN ---
Nurse to nurse called to Emiliana at [place]
[2024-11-14 17:28] VITALS: BP 176/63; PULSE 76; RESP 16; TEMP 36.7; O2SAT 97
== END 2024-11-14 18:01 | disposition skilled nursing facility (03) ==
PROVIDERS: Emergency Provider Emergency Medicine; PCP Family Medicine Geriatric Medicine; Visit Provider Emergency Medicine
DX: S70.02XA Contusion of left hip, initial encounter (principal); E11.9 Type 2 diabetes mellitus without complications; S70.01XA Contusion of right hip, initial encounter; W18.39XA Other fall on same level, initial encounter; R29.6 Repeated falls; I10 Essential (primary) hypertension; Z96.642 Presence of left artificial hip joint; Z79.84 Long term (current) use of oral hypoglycemic drugs; Z79.899 Other long term (current) drug therapy
CPT/HCPCS: 73502; 73552; 80048; 85025; 96360; 99285

== ENCOUNTER → 2024-12-09 | Outpatient (CLI) | payer MEDICARE, BC, SELFPAY ==
--- NOTE | 2024-12-09 16:15 | RAD_ITS ---
PROCEDURE: SHOULDER MIN 2 VIEWS 12/09/2024 REASON FOR EXAM: SHOULDER PAIN TECHNIQUE: 4 view(s) of the left shoulder FINDINGS: Bones: No acute fracture or dislocation. Joints: Normal alignment. Mild degenerative changes. Soft tissues: Soft tissues are unremarkable. Other: RAD/Shoulder min 2 Views IMPRESSION: DEGENERATIVE OSTEOARTHROSIS. NO ACUTE FINDINGS. Reading Location: [id number]
== END | disposition home or self-care (01) ==
LOC: RAD 16:05
PROVIDERS: PCP Family Medicine Geriatric Medicine; Referring Provider Anesthesiology; Visit Provider Anesthesiology
DX: M25.512 Pain in left shoulder (principal)
CPT/HCPCS: 73030

== ENCOUNTER → 2024-12-19 | Outpatient (CLI) | payer MEDICARE, BC, SELFPAY ==
--- NOTE | 2024-12-19 12:49 | MRI_ITS ---
PROCEDURE: SPINE LUMBAR (ROUTINE) 12/19/2024 REASON FOR EXAM: LOW BACK PAIN TECHNIQUE: Multiplanar and multisequence images were obtained without IV contrast administration. Axial and sagittal T1 and T2 weighted images were obtained. Fat suppressed images were also obtained. COMPARISON: Radiographs on 10/21/2024. FINDINGS: Mildly heterogeneous signal intensity of the visualized bone marrow, probably osteopenia/osteoporosis. Mild acute benign compression fracture of L2 vertebral body with a maximum loss of height estimated at 27%. Mild associated retropulsion. Mildly increased kyphosis at the level of the thoracolumbar junction. Exaggerated lumbar lordosis. Moderate diffuse spondylosis. The conus is unremarkable. Evaluation of the individual levels revealed the following: L5-S1: Grade 1 retrolisthesis measuring 3.2 mm. Prior laminectomies. Mild diffuse disc bulge with posterior osteophyte formation. Epidural fibrosis in the surgical bed. Bilateral facet joint arthropathy. The spinal canal is not narrowed. Mild bilateral neural foraminal narrowing. L4-5: Grade 1 anterolisthesis measuring 3.5 mm. Prior laminectomies. Mild epidural fibrosis in the surgical bed. Mild diffuse disc bulge. Superimposed broad-based right paracentral disc protrusion measuring 4.7 mm. Bilateral facet joint arthropathy. The spinal canal is not narrowed. Mild bilateral neural foraminal narrowing. L3-4: Grade 1 anterolisthesis measuring 3.3 mm. Mild diffuse disc bulge. Bilateral facet joint arthropathy and ligamentum flavum hypertrophy. The spinal canal is not narrowed. Mild bilateral neural foraminal narrowing. L2-3: Mild diffuse disc bulge. Bilateral facet joint arthropathy and ligamentum flavum hypertrophy. The spinal canal is mildly narrowed. Mild bilateral neural foramina narrowing. L1-2: Mild diffuse disc bulge. The spinal canal is not narrowed. Mild bilateral neural foramina narrowing. T12-L1 :Mild diffuse disc bulge. The spinal canal is not narrowed. Mild bilateral neural foramina narrowing. T11-T12 :Mild diffuse disc bulge. The spinal canal is not narrowed. Mild bilateral neural foramina narrowing. Normal visualized paraspinous soft tissue structures. MRI/Spine Lumbar (Routine) IMPRESSION: Mildly heterogeneous signal intensity of the visualized bone marrow, probably o steopenia/osteoporosis. Mild acute benign compression fracture of L2 vertebral body with a maximum loss of height estimated at 27%. Mild associated retropulsion. Mildly increased kyphosis at the level of the thoracolumbar junction. Exaggerated lumbar lordosis. Moderate diffuse spondylosis. [facility]
== END | disposition home or self-care (01) ==
LOC: MRI 12:37
PROVIDERS: PCP Family Medicine Geriatric Medicine; Referring Provider Family Medicine Geriatric Medicine; Visit Provider Family Medicine Geriatric Medicine
DX: M54.50 Low back pain, unspecified (principal)
CPT/HCPCS: 72148

== ENCOUNTER 2025-01-07 17:37 | Inpatient (IN) | payer MEDICARE, BC, SELFPAY ==
[2025-01-07] VITALS (18 sets, daily range): BP systolic 98–157; BP diastolic 49–108; PULSE 66–90; RESP 12–30; TEMP 36.6–37.1; O2SAT 94–100; BMI 28.4; BMI 27.1
--- NOTE | 2025-01-07 18:52 | CT_ITS ---
PROCEDURE: BRAIN/HEAD WITHOUT CONTRAST 01/07/2025 REASON FOR EXAM: AMS TECHNIQUE: Head CT without intravenous contrast. Coronal and Sagittal reconstruction series were provided. One or more dose reduction techniques were used (e.g., Automated exposure control, adjustment of the mA and/or kV according to patient size, use of iterative reconstruction technique. COMPARISON: MRI 07/31/2023 FINDINGS: Mild atrophy. Mild periventricular chronic small-vessel ischemic change. No acute infarct, hemorrhage or edema. Paranasal sinuses are clear. There is midline dural calcification which is benign. CT/Brain/Head without Contrast IMPRESSION: No acute abnormality Reading Location[facility]
--- NOTE | 2025-01-07 18:53 | EKG12_ITS ---
Test Reason : REPEAT Blood Pressure : */* mmHG Vent. Rate : 78 BPM Atrial Rate : * BPM P-R Int : * ms QRS Dur : 82 ms QT Int : 432 ms P-R-T Axes : * -32 48 degrees QTcB Int : 492 ms Accelerated Junctional rhythm Left axis deviation Nonspecific ST abnormality QTcB >= 480 msec Abnormal ECG Confirmed by SEAN HOLDER ([id number]), news assignment editor DANIEL GAFFNEY ([id number]) on 01/12/2025 7:27:36 AM Referred By: Confirmed By: SEAN HOLDER
[2025-01-07 19:33] LABS: Absolute Neutrophil Count 8.7 X10^3/uL (2.0-7.7); Basophil# 0.05 X10^3/uL; Basophil% 0.4 % (0-1); Eosinophil# 0.15 X10^3/uL; Eosinophils% 1.2 % (0-5); Hematocrit 43.5 % (37-47); Hemoglobin 14.1 g/dL (12.0-15.0); Lymphocyte % 19.5 % (19-41); Mean Corp Hgb Conc 32.4 g/dL (32-36); Mean Corpuscular Volume 86.3 fL (81-99); Mean Platelet Vol. 10.2 fl (6.2-12.0); Monocyte% 8.1 % (0-10); NRBC Flagged by Analyzer 0 % (0-5); Neutrophil # 8.65 X10^3/uL (2.7-7.7); Neutrophil % 70.3 % (47-70); Platelet Count 350 K/mm3 (150-450); RBC Distribution Width CV 15.2 % (11.6-14.6); RBC Distribution Width SD 48.3 fl (35.1-43.9); Red Blood Count 5.04 M/mm3 (4.2-5.4); White Blood Count 12.3 K/mm3 (4.4-11.0)
[2025-01-07] MEDS: Lorazepam 2 MG/ML WCH Syringe 0.5 MG IV (19:43)
--- NOTE | 2025-01-07 19:50 | RAD_ITS ---
PROCEDURE: CHEST 1 VIEW (PORTABLE) 01/07/2025 REASON FOR EXAM: HYPERTENSION TECHNIQUE: Frontal view of the chest. COMPARISON: None FINDINGS: Hardware: None Heart: The heart size is normal. Lungs: Elevated right hemidiaphragm. No focal consolidation. Bones: Degenerative changes are identified within the thoracic spine. Other: RAD/Chest 1 View (Portable) IMPRESSION: Elevated right hemidiaphragm. No focal consolidation. Reading Location: [facility]
[2025-01-07 19:55] LABS: AST(SGOT) 21 U/L (<=31); Alanine Aminotransfer ALT/SGPT 30 U/L (<=34); Alkaline Phosphatase 79 U/L (35-104); Anion Gap 19 (5-15); BUN 15 mg/dL (4-19); BUN/Creat Ratio 13.4 RATIO (10-20); Bilirubin, Direct 0.14 mg/dL (0.00-0.30); Calcium,Total 9.5 mg/dL (7.6-11.0); Carbon Dioxide 20.5 mmol/L (21.0-32.0); Chloride 97 mmol/L (98-108); Creatinine, Serum 1.12 mg/dL (0.70-1.20); EST Glomerular Filtration Rate 50 (>60); Estimated Creatinine Clearance 47.33 ml/min (50-250); Glucose 183 mg/dL (70-99); Lipase 29 U/L (13-75); Potassium 4.1 mmol/L (3.3-5.1); Sodium Level 137 mmol/L (133-145); Total Bilirubin 0.26 mg/dL (0.00-1.30)
[2025-01-07 20:02] LABS: International Normalized Ratio 0.9; Prothrombin Time (Protime)PT. 12.7 SECONDS (11.7-14.9)
--- NOTE | 2025-01-07 20:02 | EX.ED.DYSGE1 ---
HPI History of Present Illness Chief Complaint: Confusion Informant: patient and spouse/S.O. Narrative Narrative: 79-year-old female presenting to the emergency room with altered mental status. Patient states that the past several days she has had twitching of her arms and legs. She is tells me that there are multiple animals on the ceiling including elephants. She has been confused at home and manic-like behavior for about an hour. She denies any recent falls but has had 3 prior falls this year. [facility] Medical History Dizziness Hyperglycemia due to type 2 diabetes mellitus Orthostatic hypotension Abnormal gait Anxiety Depression Sleep apnea Thyroid disease Diabetes mellitus Hypertension Home Medications ?Medication ?Instructions ?Recorded ?Last Taken ?Type pantoprazole 40 mg tablet,delayed 40 mg PO DAILY GERD 10/22/18 Unknown History release pregabalin 75 mg capsule 75 mg PO TID pain 08/29/22 Unknown History levothyroxine 100 mcg tablet 100 mcg PO QDAY thyroid 12/10/23 Unknown History rosuvastatin 40 mg tablet 40 mg PO QDAY HLD 12/10/23 Unknown History ascorbic acid (vitamin C) 500 mg 500 mg PO QDAY vitamin 05/21/24 Unknown History tablet calcium 600 mg (as carbonate)-vit 1 tab PO QAM supplement 05/21/24 Unknown History D3 20 mcg (800 unit) chewable tablet (Caltrate plus D) cyanocobalamin (vitamin B-12) 1,000 mcg PO QDAY supplement 05/21/24 Unknown History 1,000 mcg tablet (Vitamin B-12) d-mannose 500 mg capsule 500 mg PO .QD spasms 05/21/24 Unknown History docusate sodium 100 mg capsule 100 mg PO BID stool softner 05/21/24 Unknown History hydroxyzine HCl 50 mg tablet 50 mg PO Q6H PRN anxiety 05/21/24 Unknown History magnesium oxide 500 mg capsule 500 mg PO QDAY SUPPLEMENT 05/21/24 Unknown History metformin 1,000 mg tablet 1,000 mg PO BID DM 05/21/24 Unknown History acetaminophen 500 mg tablet 500 mg PO Q8H PRN PAIN 06/11/24 Unknown History tiarra.stocking,knee,reg,smal #24 ea 10/17/24 Unknown Rx (T.E.D. Anti-Embolism Stocking) fludrocortisone 0.1 mg tablet 0.1 mg PO BREAKFAST #30 tabs 10/17/24 Unknown Rx diphenhydramine HCl 25 mg capsule 25 mg PO BID PRN PRN itching #20 11/14/24 Unknown Rx (Benadryl) caps bupropion HCl 300 mg 24 hr tablet, 300 mg PO QDAY depression #90 tabs 12/03/24 Unknown Rx extended release carbidopa 25 mg-levodopa 100 mg 1 tab PO TID 12/03/24 Unknown History tablet midodrine 10 mg tablet 15 mg PO TID 12/03/24 Unknown History bupropion HCl 150 mg 24 hr tablet, 150 mg PO QAM #90 tabs 12/26/24 Unknown Rx extended release buspirone 5 mg tablet 5 mg PO BID mood #180 tabs 12/26/24 Unknown Rx duloxetine 30 mg capsule,delayed 30 mg PO DAILY depression #90 caps 12/26/24 Unknown Rx release duloxetine 60 mg capsule,delayed 60 mg PO DAILY mood #90 caps 12/26/24 Unknown Rx release Allergy/AdvReac Type Severity Reaction Status Date / Time Opioids - Morphine Analogues Allergy Rash Verified 01/07/25 17:42 adhesive tape AdvReac Unknown Rash Verified 01/07/25 17:42 tramadol (From Ultram) AdvReac Itching Verified 01/07/25 17:42 Family History Mother Cancer cervical Brother CVA (cerebral vascular accident) Father CVA (cerebral vascular accident) Sister , at the age of 65 Liver cancer Surgical History Cyst of left breast Status post hip surgery H/O knee surgery H/O wrist surgery Social History Smoking Status: Never smoker alcohol intake: current details: Occasional on avg 1 glass of wine Q mth substance use type: does not use ROS ROS ED ROS Narrative Generally weak Constitutional Constitutional ED: Denies chills, fever(s) or weight loss Eyes Eyes: Denies change in vision or diplopia ENT ENT ED: Denies ear pain, rhinorrhea or sore throat Cardiovascular Cardiovascular: Denies chest pain, orthopnea, palpitations or racing heartbeat Respiratory/Chest Respiratory/Chest: Denies cough, dyspnea or orthopnea Gastrointestinal Gastrointestinal: Denies abdominal pain, diarrhea, nausea or vomiting Genitourinary Genitourinary ED: Denies dysuria, hematuria or urinary frequency Musculoskeletal Musculoskeletal: Denies arthralgias, back pain, myalgias or neck pain Integumentary Denies abscess or rash Neurologic Neurologic: Reports other Details: Confusion, muscle twitches of extremities ; Denies headache(s) or weakness Psychiatric Psychiatric: Reports other Details: Hallucinations ; Denies anxiety, depression, suicidal ideation or suicidal thoughts Endocrine Endocrinology: Denies polydipsia, polyphagia or polyuria Allergic/Immunologic Allergic/Immunologic ED: Denies mouth swelling, tongue swelling or urticaria EXAM Physical Exam Const Vital Signs: 01/07/25 17:37 01/07/25 17:39 01/07/25 19:48 Temperature 98.7 F Temperature Source Oral Pulse Rate 90 Respiratory Rate 30 H Respiratory Effort Normal Non-Labored Blood Pressure 157/106 H 122/102 H Blood Pressure Mean 123 111 Pulse Ox 100 Oxygen Delivery Method Room Air 01/07/25 19:52 01/07/25 19:56 01/07/25 20:00 Temperature Temperature Source Pulse Rate 82 72 Respiratory Rate 17 18 Respiratory Effort Blood Pressure 122/102 H 98/86 H Blood Pressure Mean 108 92 Pulse Ox 100 97 Oxygen Delivery Method Room Air 01/07/25 20:00 01/07/25 20:15 01/07/25 20:30 Temperature Temperature Source Pulse Rate 81 80 78 Respiratory Rate 14 21 H 14 Respiratory Effort Blood Pressure 98/86 H 101/60 Blood Pressure Mean 92 73 Pulse Ox 96 96 Oxygen Delivery Method 01/07/25 21:00 01/07/25 21:15 01/07/25 21:30 Temperature Temperature Source Pulse Rate 78 68 73 Respiratory Rate 18 21 H 22 H Respiratory Effort Blood Pressure Blood Pressure Mean Pulse Ox 96 98 Oxygen Delivery Method 01/07/25 21:45 01/07/25 22:00 01/07/25 22:03 Temperature Temperature Source Pulse Rate 66 67 67 Respiratory Rate 20 H 22 H 18 Respiratory Effort Blood Pressure 138/55 H Blood Pressure Mean 79 Pulse Ox 94 98 99 Oxygen Delivery Method 01/07/25 22:06 Temperature 98.2 F Temperature Source Pulse Rate 67 Respiratory Rate 18 Respiratory Effort Blood Pressure 138/55 H Blood Pressure Mean 82 Pulse Ox 100 Oxygen Delivery Method Positive well nourished and well developed General Appearance ED: well developed HEENT Reports normocephalic, head/scalp atraumatic and moist mucous membranes Eyes PERRL and EOMs intact bilaterally Neck no lymphadenopathy, supple and no JVD Resp clear to auscultation bilaterally Resp Narrative: Hyperventilating Cardio regular rate, regular rhythm and no murmurs GI normal to inspection, nondistended, normoactive bowel sounds and non-tender Palpation: soft Back/Spine no CVA tenderness and normal ROM Extremity normal to inspection General Extremety ED: Negative for edema General Extremity: Negative for edema Neuro CN's II-XII intact bilaterally Neuro Narrative: Intermittent twitching of the arms occasionally of the legs Sensorium / Orientation: alert Motor Exam: strength 5/5 throughout Psych Psych Narrative: Patient reports seeing animals on the ceilings Mood & Affect: Negative for depressed or tearful Skin no rashes or lesions noted and no wounds MDM MDM MDM Narrative Medical decision making narrative: Differential diagnosis includes dementia psychosis UTI pneumonia electrolyte abnormalities dehydration thyroid disorder Patient's white count mildly elevated 12.3 with 70.3 neutrophils BUN of 15 creatinine 1.12 glucose of 183 troponin 16 and 15 TSH 5.62 urinalysis 10-25 white cells 1+ bacteria positive leukocyte esterase negative nitrates this was sent for culture. Toxicology negative. Patient's EKG is apparent sinus at a rate of 78 bpm. My independent interpretation a chest x-ray is no acute process CT of the brain showed no acute findings. Blood and urine cultures were sent patient received Rocephin. I do question if there is a mental health disorder here that could be brought out more by UTI or if this is primary mental health. In light of being unable to distinguish to we are going to admit for IV antibiotics and if no improvement in the mental health and continued hallucinations of the animals etc. she may require transfer to [facility] psychiatric facility. History & Record Review Discussion w/independent historian: Patient and Family Additional record(s) reviewed:: Prior inpatient record, Prior ED visit and Prior labs Lab Data Attestation: I reviewed the patient's lab results. Labs: Laboratory Results - last 24 hr 01/07/25 01/07/25 01/07/25 17:19 19:50 20:35 WBC 12.3 H RBC 5.04 Hgb 14.1 Hct 43.5 MCV 86.3 MCH 28.0 MCHC 32.4 RDW Std Deviation 48.3 H RDW Coeff of Alivia 15.2 H Plt Count 350 MPV 10.2 Immature Gran % (Auto) 0.500 Neut % (Auto) 70.3 H Lymph % (Auto) 19.5 Mathews % (Auto) 8.1 Eos % (Auto) 1.2 Baso % (Auto) 0.4 Absolute Neuts (auto) 8.7 H Absolute Lymphs (auto) 2.40 Nucleated RBC % 0 PT 12.7 INR 0.9 APTT 24.6 Sodium 137 Potassium 4.1 Chloride 97 L Carbon Dioxide 20.5 L Anion Gap 19 H BUN 15 Creatinine 1.12 Estim Creat Clear Calc 47.33 L Est GFR (MDRD) Non-Af 50 L BUN/Creatinine Ratio 13.4 Glucose 183 H Calcium 9.5 Total Bilirubin 0.26 Direct Bilirubin 0.14 AST 21 ALT 30 Alkaline Phosphatase 79 Troponin T High Sens 16 H Troponin T Hi Sens 2 Hr 15 H Total Protein 7.0 Albumin 4.0 Globulin 3.0 Lipase 29 TSH 5.620 H Urine Color Yellow Urine Clarity Turbid Urine pH 6.0 Ur Specific [place] 1.015 Urine Protein 30 H Urine Glucose (UA) 1000 H Urine Ketones 5 H Urine Occult Blood Negative Urine Nitrite Negative Urine Bilirubin Negative Urine Urobilinogen Normal Ur Leukocyte Esterase 500 H Urine RBC 0-5 SEEN Urine WBC 10-25 SEEN Ur Squamous Epith Cells 0 SEEN Urine Bacteria 1+ Urine Mucus 0 SEEN Urine Opiates Screen NEGATIVE U Buprenorphine Qual NEGATIVE Ur Oxycodone Screen NEGATIVE Urine Methadone Screen NEGATIVE Urine Fentanyl Screen NEGATIVE Ur Barbiturates Screen NEGATIVE Ur Phencyclidine Scrn NEGATIVE Ur Amphetamines Screen NEGATIVE U Benzodiazepines Scrn NEGATIVE Urine Cocaine Screen NEGATIVE U Cannabinoids Screen NEGATIVE Ethyl Alcohol < 10.1 Radiography Diagnostic Testing: Clinical Impression(s) from Imaging Studies Brain CT 01/07/25 18:52 IMPRESSION: No acute abnormality Reading [facility] Chest X-Ray 01/07/25 19:50 IMPRESSION: Elevated right hemidiaphragm. No focal consolidation. Reading [facility] Initial EKG: Attestation: I personally reviewed and interpreted this EKG as follows: Comments: Sinus rhythm ventricular to 78 bpm Management Discussion w/another healthcare provider: Hospitalist (Dr. Mccray) and wafer line worker/Case management Discharge Plan Triage Chief Complaint: Confusion Other Complaint: General Illness ED Provider: Chavo Toro Dx/Rx/DC Orders Prescriptions: No Action pregabalin 75 mg capsule 75 mg PO TID levothyroxine 100 mcg tablet 100 mcg PO QDAY rosuvastatin 40 mg tablet 40 mg PO QDAY hydroxyzine HCl 50 mg tablet 50 mg PO Q6H PRN (Reason: anxiety) d-mannose 500 mg capsule 500 mg PO .QD ascorbic acid (vitamin C) 500 mg tablet 500 mg PO QDAY docusate sodium 100 mg capsule 100 mg PO BID Caltrate 600 plus D 600 mg-20 mcg (800 unit) tablet,chewable 1 tab PO QAM cyanocobalamin (vitamin B-12) [Vitamin B-12] 1,000 mcg tablet 1,000 mcg PO QDAY midodrine 10 mg tablet 15 mg PO TID carbidopa-levodopa 25-100 mg tablet 1 tab PO TID bupropion HCl 300 mg tablet extended release 24 hr 300 mg PO QDAY Qty: 90 1RF Rx Instructions: take in addition to 300mg tablet for 450mg total duloxetine 30 mg capsule,delayed release(DR/EC) 30 mg PO DAILY Qty: 90 1RF Rx Instructions: take in addition to 1 60mg capsule for a total of 90mg daily duloxetine 60 mg capsule,delayed release(DR/EC) 60 mg PO DAILY Qty: 90 1RF Rx Instructions: take in addition to 1 30mg capsule for a total of 90mg daily buspirone 5 mg tablet 5 mg PO BID Qty: 180 1RF bupropion HCl 150 mg tablet extended release 24 hr 150 mg PO QAM Qty: 90 1RF Rx Instructions: take in addition to 300mg tablet for 450mg total pantoprazole 40 MG tablet 40 mg PO DAILY metformin 1,000 mg tablet 1,000 mg PO BID magnesium oxide 500 mg capsule 500 mg PO QDAY acetaminophen 500 mg tablet 500 mg PO Q8H PRN (Reason: PAIN) fludrocortisone 0.1 mg Tablet 0.1 mg PO BREAKFAST Qty: 30 2RF (DME) T.E.D. Anti-Embolism Stocking Misc See Rx Instructions .Route Qty: 24 0RF Rx Instructions: As directed diphenhydramine HCl [Benadryl] 25 mg capsule 25 mg PO BID PRN PRN (Reason: itching) Qty: 20 0RF Rx Instructions: Take if being given oxycodone to avoid side effects of itching. Primary Care Provider: Sumit Whipple Chi Referrals: Sumit Whipple Chi, MD [Primary Care Provider] - Print Language: Qatari
[2025-01-07 20:03] LABS: Partial Thromboplast Time 24.6 Seconds (24.1-36.2); Troponin T High Sensitivity 16 ng/L (<=14)
[2025-01-07 20:04] LABS: Mucous, Urine 0 SEEN /hpf (<or=2+); Squamous Epithelial Cells - UA 0 SEEN /hpf (5-10)
[2025-01-07 20:17] LABS: Alcohol, Blood (Medical)-Serum < 10.1 mg/dL (<=10.0)
[2025-01-07 20:36] LABS: Amphetamine Urine NEGATIVE (<1000 ng/mL); Barbiturate Urine NEGATIVE (< 200 ng/mL); Benzodiazepine Urine NEGATIVE (< 200 ng/mL); Buprenorphine Urine NEGATIVE (< 200 ng/mL); Cocaine Urine NEGATIVE (< 300 ng/mL); Color, Urine Yellow (Yellow); Fentanyl, Urine NEGATIVE; Glucose, Dipstick 1000 mg/dl (Normal); Ketone-Dipstick 5 mg/dl (Negative); Leukocyte Esterase-Dipstick 500 /ul (Negative); Methadone Urine NEGATIVE (< 300 ng/mL); Nitrite-Dipstick Negative (Negative); Occult Blood-Urine Negative /ul (Negative); Opiates Urine NEGATIVE (< 300 ng/mL); Oxycodone, Urine NEGATIVE (< 100 ng/mL); PCP Urine NEGATIVE (< 25 ng/mL); Protein-Dipstick 30 mg/dl (Negative); Specific Gravity, Urine 1.015 (1.002-1.030); THC Urine NEGATIVE (< 50 ng/mL); Urine Bilirubin Dipstick Negative (Negative); Urine Clarity Turbid (Clear); Urine Urobilinogen Normal (Normal)
[2025-01-07 21:08] LABS: Troponin T High Sens 2 HR 15 ng/L (<=14)
[2025-01-07 21:17] LABS: Bacteria 1+ /hpf (None Seen); Red Blood Cells-Urine 0-5 SEEN /hpf (0-5); White Blood Cells 10-25 SEEN /hpf (0-5)
[2025-01-07] MEDS: Ceftriaxone 1 GM/50 ML BAG IV (22:05)
--- NOTE | 2025-01-07 23:17 | HP.PCM.HOS_ITS ---
HPI - General General Date of Admission: 01/07/25 HPI Narrative YUNG HERNANDEZ, is a 79 F who presents to the hospital with altered mental status. Family states that they started noticing changes in behavior on Sunday but then today she started having significant hallucinations, while in the ER she saw an elephant in the corner of the room and the curtain was a large dragonfly. Chest x-ray and CT of the brain were unremarkable however she did have a leukocytosis of 12.3 and a UA consistent with urinary tract infection with 500 leukocyte esterase, normal squames and 1+ urine bacteria. TSH was also a little elevated, this can be followed up as an outpatient as she is on Synthroid at baseline. [facility] Medical History Dizziness Hyperglycemia due to type 2 diabetes mellitus Orthostatic hypotension Abnormal gait Anxiety Depression Sleep apnea Thyroid disease Diabetes mellitus Hypertension Home Medications ?Medication ?Instructions ?Recorded ?Last Taken ?Type pantoprazole 40 mg tablet,delayed 40 mg PO DAILY GERD 10/22/18 Unknown History release pregabalin 75 mg capsule 75 mg PO TID pain 08/29/22 U nknown History levothyroxine 100 mcg tablet 100 mcg PO QDAY thyroid 0 12/10/23 Unknown History rosuvastatin 40 mg tablet 40 mg PO QDAY HLD 12/10/23 U nknown History ascorbic acid (vitamin C) 500 mg 500 mg PO QDAY vitami n 05/21/24 Unknown History tablet calcium 600 mg (as carbonate)-vit 1 tab PO QAM supplem ent 05/21/24 Unknown History D3 20 mcg (800 unit) chewable tablet (Caltrate plus D) cyanocobalamin (vitamin B-12) 1,000 mcg PO QDAY supple ment 05/21/24 Unknown History 1,000 mcg tablet (Vitamin B-12) d-mannose 500 mg capsule 500 mg PO .QD spasms 4 Unknown History docusate sodium 100 mg capsule 100 mg PO BID stool sof tner 05/21/24 Unknown History hydroxyzine HCl 50 mg tablet 50 mg PO Q6H PRN anxiety 05/21/24 Unknown History magnesium oxide 500 mg capsule 500 mg PO QDAY SUPPLEME NT 05/21/24 Unknown History metformin 1,000 mg tablet 1,000 mg PO BID DM 05/21/24 Unknown History acetaminophen 500 mg tablet 500 mg PO Q8H PRN PAIN Unknown History tiarra.stocking,knee,reg,smal #24 ea 10/17/24 Unknown Rx (T.E.D. Anti-Embolism Stocking) fludrocortisone 0.1 mg tablet 0.1 mg PO BREAKFAST #30 tabs 10/17/24 Unknown Rx diphenhydramine HCl 25 mg capsule 25 mg PO BID PRN PRN itching #20 11/14/24 Unknown Rx (Benadryl) caps bupropion HCl 300 mg 24 hr tablet, 300 mg PO QDAY depr ession #90 tabs 12/03/24 Unknown Rx extended release carbidopa 25 mg-levodopa 100 mg 1 tab PO TID 12/03/24 Unknown History tablet midodrine 10 mg tablet 15 mg PO TID 12/03/24 Unknow n History bupropion HCl 150 mg 24 hr tablet, 150 mg PO QAM #90 t abs 12/26/24 Unknown Rx extended release buspirone 5 mg tablet 5 mg PO BID mood #180 tabs 0 12/26/24 Unknown Rx duloxetine 30 mg capsule,delayed 30 mg PO DAILY depres deanne #90 caps 12/26/24 Unknown Rx release duloxetine 60 mg capsule,delayed 60 mg PO DAILY mood # 90 caps 12/26/24 Unknown Rx release Allergy/AdvReac Type Severity Reaction Status Date / Time Opioids - Morphine Analogues Allergy Rash Verified 01/07/25 17:42 adhesive tape AdvReac Unknown Rash Verified 01/07/25 17:42 tramadol (From Ultram) AdvReac Itching Verified 01/07/25 17:42 Family History Mother Cancer cervical Brother CVA (cerebral vascular accident) Father CVA (cerebral vascular accident) Sister , at the age of 65 Liver cancer Surgical History Cyst of left breast Status post hip surgery H/O knee surgery H/O wrist surgery Social History Smoking Status: Never smoker alcohol intake: current details: Occasional on avg 1 glass of wine Q mth substance use type: does not use ROS Constitutional Constitutional: Reports fever(s); Denies chills, fatigue or malaise Eyes Eyes: Denies blurry vision ENT HEENT: Denies headache(s) or nasal discharge Cardiovascular Cardiovascular: Denies chest pain, dyspnea on exertion or syncope Respiratory/Chest Respiratory/Chest: Denies cough, shortness of breath at rest or shortness of breath with exertion Gastrointestinal Gastrointestinal: Denies constipation, diarrhea, nausea or vomiting Genitourinary Genitourinary: Denies dysuria Neurologic Neurologic: Reports confusion; Denies focal weakness, numbness or tremor(s) Psychiatric Psychiatric: Reports visual hallucinations; Denies anxiety or depression Vital Signs Vital Signs Vital Signs: 01/07/25 17:37 01/07/25 17:39 01/07/25 19:48 Temperature 98.7 F Temperature Source Oral Pulse Rate 90 Respiratory Rate 30 H Respiratory Effort Normal Non-Labored Blood Pressure 157/106 H 122/102 H Blood Pressure Mean 123 111 Pulse Ox 100 Oxygen Delivery Method Room Air 01/07/25 19:52 01/07/25 19:56 01/07/25 20:00 Temperature Temperature Source Pulse Rate 82 72 Respiratory Rate 17 18 Respiratory Effort Blood Pressure 122/102 H 98/86 H Blood Pressure Mean 108 92 Pulse Ox 100 97 Oxygen Delivery Method Room Air 01/07/25 20:00 01/07/25 20:15 01/07/25 20:30 Temperature Temperature Source Pulse Rate 81 80 78 Respiratory Rate 14 21 H 14 Respiratory Effort Blood Pressure 98/86 H 101/60 Blood Pressure Mean 92 73 Pulse Ox 96 96 Oxygen Delivery Method 01/07/25 21:00 01/07/25 21:15 01/07/25 21:30 Temperature Temperature Source Pulse Rate 78 68 73 Respiratory Rate 18 21 H 22 H Respiratory Effort Blood Pressure Blood Pressure Mean Pulse Ox 96 98 Oxygen Delivery Method 01/07/25 21:45 01/07/25 22:00 01/07/25 22:03 Temperature Temperature Source Pulse Rate 66 67 67 Respiratory Rate 20 H 22 H 18 Respiratory Effort Blood Pressure 138/55 H Blood Pressure Mean 79 Pulse Ox 94 98 99 Oxygen Delivery Method 01/07/25 22:06 01/07/25 22:15 01/07/25 22:30 Temperature 98.2 F Temperature Source Pulse Rate 67 70 66 Respiratory Rate 18 12 22 H Respiratory Effort Blood Pressure 138/55 H 141/52 H 136/108 H Blood Pressure Mean 82 75 117 Pulse Ox 100 99 100 Oxygen Delivery Method 01/07/25 23:00 Temperature Temperature Source Pulse Rate 67 Respiratory Rate 18 Respiratory Effort Blood Pressure Blood Pressure Mean Pulse Ox 96 Oxygen Delivery Method Weight Weight: 187 lb 13.341 oz Body Mass Index (BMI) 28.4 Physical Exam Narrative General: Alert, confused, Cooperative, No apparent distress HEENT: Atraumatic, PERRLA, EOMI, Normocephalic Oral: Moist Mucosa Neck: Supple, No JVD Lungs: Clear to auscultation, Normal air movement, No rhonchi, No wheeze, No rales Cardiovascular: Regular rate, Regular Rhythm, Normal S1, Normal S2, No murmurs Abdomen: Soft, Non Tender, Non-Distended, No Hepato-splenomegaly Extremities: No edema, Capillary Refill Less than 3 Seconds Skin: No rashes, No breakdown Musculoskeletal: No Tenderness to Palpation of Joints or Extremities Neurological: No focal neurological deficits, moves all extremities, sensory exam intact to light touch and pain Psych/Mental Status: Normal Affect, visual hallucinations Results Lab / Micro Data 01/07/25 17:19 01/07/25 17:19 Labs: Laboratory Results - last 24 hr 01/07/25 17:19: WBC 12.3 H, RBC 5.04, Hgb 14.1, Hct 43.5, MCV 86.3, MCH 28.0, MCHC 32.4, RDW Std Deviation 48.3 H, RDW Coeff of Alivia 15.2 H, Plt Count 350, MPV 10.2, Immature Gran % (Auto) 0.500, Neut % (Auto) 70.3 H, Lymph % (Auto) 19.5, [place] % (Auto) 8.1, Eos % (Auto) 1.2, Baso % (Auto) 0.4, Absolute Neuts (auto) 8.7 H, Absolute Lymphs (auto) 2.40, Nucleated RBC % 0, PT 12.7, INR 0.9, APTT 24.6, Sodium 137, Potassium 4.1, Chloride 97 L, Carbon Dioxide 20.5 L, Anion Gap 19 H, BUN 15, Creatinine 1.12, Estim Creat Clear Calc 47.33 L, Est GFR (MDRD) Non-Af 50 L, BUN/Creatinine Ratio 13.4, Glucose 183 H, Calcium 9.5, Total Bilirubin 0.26, Direct Bilirubin 0.14, AST 21, ALT 30, Alkaline Phosphatase 79, Troponin T High Sens 16 H, Total Protein 7.0, Albumin 4.0, Globulin 3.0, Lipase 29, TSH 5.620 H, Ethyl Alcohol < 10.1 01/07/25 19:50: Urine Color Yellow, Urine Clarity Turbid, Urine pH 6.0, Ur Specific [place] 1.015, Urine Protein 30 H, Urine Glucose (UA) 1000 H, Urine Ketones 5 H, Urine Occult Blood Negative, Urine Nitrite Negative, Urine Bilirubin Negative, Urine Urobilinogen Normal, Ur Leukocyte Esterase 500 H, Urine RBC 0-5 SEEN, Urine WBC 10-25 SEEN, Ur Squamous Epith Cells 0 SEEN, Urine Bacteria 1+, Urine Mucus 0 SEEN, Urine Opiates Screen NEGATIVE, U Buprenorphine Qual NEGATIVE, Ur Oxycodone Screen NEGATIVE, Urine Methadone Screen NEGATIVE, Urine Fentanyl Screen NEGATIVE, Ur Barbiturates Screen NEGATIVE, Ur Phencyclidine Scrn NEGATIVE, Ur Amphetamines Screen NEGATIVE, U Benzodiazepines Scrn NEGATIVE, Urine Cocaine Screen NEGATIVE, U Cannabinoids Screen NEGATIVE 01/07/25 20:35: Troponin T Hi Sens 2 Hr 15 H 01/07/25 21:45: Lactic Acid 2.0 Imaging Radiology Impression Brain CT 01/07/25 18:52 IMPRESSION: No acute abnormality Reading Location: [facility] Chest X-Ray 01/07/25 19:50 IMPRESSION: Elevated right hemidiaphragm. No focal consolidation. [facility] Assessment & Plan Assessment/Plan (1) Metabolic encephalopathy: (2) UTI (urinary tract infection): PLAN: Plan 1. Acute metabolic encephalopathy secondary to UTI ? With leukocytosis in the UA, continue with Rocephin ? Urine cultures pending ? Continues to have confusion and visual hallucinations, I do anticipate these improving with appropriate antibiotic regimen 2. Parkinson's disease with anxiety and depression ? Continue with her home medications ? Stable 3. Orthostatic hypotension ? She is on fludrocortisone and possibly midodrine though unclear based on previous fill record if she still taking the midodrine ? This could also be a side effect of Sinemet ? Continue with her home fludrocortisone 4. DM2 ? Will hold her metformin ? Continue sign scale insulin ? Accu-Cheks ACHS ? Will monitor make adjustments as necessary 5. Hypothyroidism ? Stable, TSH is a little bit elevated ? Continue with her home Synthroid ? Recommend outpatient monitoring of her TSH 6. Hyperlipidemia ? Stable?continue with Crestor 7. GERD ? Stable ? Continue with PPI DVT: Lovenox 75 minutes was spent on direct patient care, including documentation as well as chart review and collaboration with colleagues Charges/Coding Visit Charges Inpatient E&M: 14567 Init Hosp L3
[2025-01-08 01:49] LABS: Reflex Lactate? Y
[2025-01-08 02:25] LABS: Absolute Lymphocyte Count 1.84 X10^3/uL (0.83-4.51); Absolute Neutrophil Count 6.9 X10^3/uL (2.0-7.7); Basophil# 0.02 X10^3/uL; Basophil% 0.2 % (0-1); Eosinophil# 0.08 X10^3/uL; Eosinophils% 0.8 % (0-5); Hematocrit 36.4 % (37-47); Hemoglobin 12.1 g/dL (12.0-15.0); Lymphocyte # 1.84 X10^3/ul (0.83-4.51); Mean Corp Hgb Conc 33.2 g/dL (32-36); Mean Corpuscular Hgb 27.8 pg (27.0-32.0); Mean Corpuscular Volume 83.7 fL (81-99); Mean Platelet Vol. 10.1 fl (6.2-12.0); Monocyte# 0.81 X10^3/uL; Monocyte% 8.4 % (0-10); NRBC Flagged by Analyzer 0 % (0-5); Neutrophil # 6.88 X10^3/uL (2.7-7.7); Platelet Count 256 K/mm3 (150-450); RBC Distribution Width SD 45.6 fl (35.1-43.9); Red Blood Count 4.35 M/mm3 (4.2-5.4); White Blood Count 9.7 K/mm3 (4.4-11.0)
[2025-01-08 02:40] LABS: Anion Gap 13 (5-15); BUN 17 mg/dL (4-19); BUN/Creat Ratio 16.5 RATIO (10-20); Carbon Dioxide 20.9 mmol/L (21.0-32.0); Chloride 101 mmol/L (98-108); Creatinine, Serum 1.01 mg/dL (0.70-1.20); EST Glomerular Filtration Rate 57 (>60); Estimated Creatinine Clearance 52.93 ml/min (50-250); Glucose 255 mg/dL (70-99); Lactic Acid 1.7 mmol/L (0.0-2.0); Potassium 4.3 mmol/L (3.3-5.1); Sodium Level 135 mmol/L (133-145)
[2025-01-08 05:55] VITALS: BP 125/100; PULSE 63; RESP 15; TEMP 36.3; O2SAT 99
[2025-01-08] MEDS: Levothyroxine 100 MCG Tablet PO (06:02)
[2025-01-08] MEDS: Pregabalin 75 MG Capsule PO ×3 (06:02→23:53)
[2025-01-08] MEDS: Carbidopa/Levodopa 25/100 Tablet PO ×2 (06:02→14:33)
[2025-01-08] MEDS: Insulin Lispro 100 UNIT/ML INSULN.PEN SC ×3 (06:39→23:47)
[2025-01-08 06:52] LABS: Bedside Glucose 200 mg/dL (74-106)
--- NOTE | 2025-01-08 07:39 | PN.HOSP_ITS ---
Reason for Visit Reason for Visit: Diagnoses Metabolic encephalopathy (01/07/25) Urinary tract infection, site not specified (01/07/25) Subjective Subjective Patient is a 79-year-old lady admitted with progressive generalized weakness with associated confusion and hallucination. Workup did reveal presence of acute cystitis admitted to regular nursing floor for further management Objective Data Objective Data Vital Signs: Vital Signs Temp Pulse Resp BP Pulse Ox O2 Del Method 97.3 F L 63 15 125/100 H 99 Room Air 01/08/25 05:55 01/08/25 05:55 01/08/25 05:55 01/08/25 05:55 01/08/25 05:55 01/08/25 05:55 Oxygen Delivery Method Room Air Weight: 83.28 kg Body Mass Index (BMI) 27.1 Intake & Output: Intake and Output for Last 24 Hours 01/06/25 01/07/25 01/08/25 23:59 23:59 23:59 Intake Total 50 / 50 Balance 50 / 50 Lab / Micro Data 01/08/25 02:15 01/08/25 02:15 Labs: Laboratory Results - last 24 hr 01/07/25 17:19: WBC 12.3 H, RBC 5.04, Hgb 14.1, Hct 43.5, MCV 86.3, MCH 28.0, MCHC 32.4, RDW Std Deviation 48.3 H, RDW Coeff of Alivia 15.2 H, Plt Count 350, MPV 10.2, Immature Gran % (Auto) 0.500, Neut % (Auto) 70.3 H, Lymph % (Auto) 19.5, [place] % (Auto) 8.1, Eos % (Auto) 1.2, Baso % (Auto) 0.4, Absolute Neuts (auto) 8.7 H, Absolute Lymphs (auto) 2.40, Nucleated RBC % 0, PT 12.7, INR 0.9, APTT 24.6, Sodium 137, Potassium 4.1, Chloride 97 L, Carbon Dioxide 20.5 L, Anion Gap 19 H, BUN 15, Creatinine 1.12, Estim Creat Clear Calc 47.33 L, Est GFR (MDRD) Non-Af 50 L, BUN/Creatinine Ratio 13.4, Glucose 183 H, Calcium 9.5, Total Bilirubin 0.26, Direct Bilirubin 0.14, AST 21, ALT 30, Alkaline Phosphatase 79, Troponin T High Sens 16 H, Total Protein 7.0, Albumin 4.0, Globulin 3.0, Lipase 29, TSH 5.620 H, Ethyl Alcohol < 10.1 01/07/25 19:50: Urine Color Yellow, Urine Clarity Turbid, Urine pH 6.0, Ur Specific [place] 1.015, Urine Protein 30 H, Urine Glucose (UA) 1000 H, Urine Ketones 5 H, Urine Occult Blood Negative, Urine Nitrite Negative, Urine Bilirubin Negative, Urine Urobilinogen Normal, Ur Leukocyte Esterase 500 H, Urine RBC 0-5 SEEN, Urine WBC 10-25 SEEN, Ur Squamous Epith Cells 0 SEEN, Urine Bacteria 1+, Urine Mucus 0 SEEN, Urine Opiates Screen NEGATIVE, U Buprenorphine Qual NEGATIVE, Ur Oxycodone Screen NEGATIVE, Urine Methadone Screen NEGATIVE, Urine Fentanyl Screen NEGATIVE, Ur Barbiturates Screen NEGATIVE, Ur Phencyclidine Scrn NEGATIVE, Ur Amphetamines Screen NEGATIVE, U Benzodiazepines Scrn NEGATIVE, Urine Cocaine Screen NEGATIVE, U Cannabinoids Screen NEGATIVE 01/07/25 20:35: Troponin T Hi Sens 2 Hr 15 H 01/07/25 21:45: Lactic Acid 2.0 01/08/25 02:15: WBC 9.7, RBC 4.35, Hgb 12.1, Hct 36.4 L, MCV 83.7, MCH 27.8, MCHC 33.2, RDW Std Deviation 45.6 H, RDW Coeff of Alivia 15.0 H, Plt Count 256, MPV 10.1, Immature Gran % (Auto) 0.600, Neut % (Auto) 71.0 H, Lymph % (Auto) 19.0, [place] % (Auto) 8.4, Eos % (Auto) 0.8, Baso % (Auto) 0.2, Absolute Neuts (auto) 6.9, Absolute Lymphs (auto) 1.84, Nucleated RBC % 0, Sodium 135, Potassium 4.3, Chloride 101, Carbon Dioxide 20.9 L, Anion Gap 13, BUN 17, Creatinine 1.01, Estim Creat Clear Calc 52.93, Est GFR (MDRD) Non-Af 57 L, BUN/Creatinine Ratio 16.5, Glucose 255 H, Lactic Acid 1.7, Calcium 9.0 01/08/25 06:34: POC Glucose 200 H Radiography Diagnostic Testing: Radiology Impression Brain CT 01/07/25 18:52 IMPRESSION: No acute abnormality Reading Location: [facility] Chest X-Ray 01/07/25 19:50 IMPRESSION: Elevated right hemidiaphragm. No focal consolidation. [facility] Physical Exam Narrative GENERAL: Patient appears restless HEENT: Atraumatic; normocephalic EYES; Anicteric, Normal Conjunctiva NECK; supple, normal thyroid, RESPIRATORY: Diminished to auscultation CARDIOVASCULAR: Regular S1 S2, GI: soft, normoactive bowel sounds, : No Renal angle tenderness; EXTREMITIES: No edema, no clubbing, MUSCULOSKELETAL: no muscle wasting NEURO: Awake; no lateralizing signs. SKIN: No Rash PSYCH; restless Assessment & Plan Assessment/Plan (1) Metabolic encephalopathy: (2) UTI (urinary tract infection): PLAN: Plan Patient is a 79-year-old lady admitted with progressive generalized weakness with associated confusion and hallucination. Workup did reveal presence of acute cystitis admitted to regular nursing floor for further management 1. Acute metabolic encephalopathy ? Secondary to UTI admitted to regular nursing floor where patient is currently being treated 2. Acute cystitis ? Patient was started on ceftriaxone urine culture sent we will follow-up on result 3. Parkinson's disease Patient is on carbidopa?levodopa did continue with home dose 4. Depression with anxiety Diet did continue patient home meds including buspirone and duloxetine 4. Chronic orthostatic hypotension ? Patient is on fludrocortisone and midodrine did continue 5. Hypothyroidism ? Patient is on levothyroxine home dose continued 6. GERD ? Patient is on Protonix 7. Dyslipidemia ?Patient is on statin therapy, continued at home dose 8. Diabetes mellitus type 2 The patient is on metformin held on admission placed on Accu-Cheks AC and at bedtime with a sliding scale coverage. Also placed on 1800 ADA diet 9. DVT prophylaxis ? Subcu Lovenox Time spent in the patient's overall evaluation,decision-making process, review of diagnostic data, adjustment of management, discussion with other providers, nursing nursing and ancillary staff involved in patient's care documentation, 50 Minutes Charges/Coding Visit Charges Inpatient E&M: 03825 Subs Hosp L3
[2025-01-08] MEDS: Docusate Sodium 100 MG Capsule PO ×2 (09:34→23:53)
[2025-01-08] MEDS: buPROPion (XL) 300 MG TABLET.XL PO (09:34)
[2025-01-08] MEDS: buPROPion (XL) 150 MG TABLET.XL PO (09:34)
[2025-01-08] MEDS: DULoxetine Hcl 60 MG Capsule PO (09:34)
[2025-01-08] MEDS: Fludrocortisone Acetate 0.1 MG Tablet PO (09:34)
[2025-01-08] MEDS: busPIRone 5 MG Tablet PO ×2 (09:34→23:53)
[2025-01-08] MEDS: Magnesium Chloride 64 MG Delay Rel.Tablet 128 MG PO (09:34)
[2025-01-08] MEDS: Pantoprazole Sodium 40 MG Tablet PO (09:35)
[2025-01-08] MEDS: DULoxetine Hcl 30 MG Capsule PO (09:35)
[2025-01-08] MEDS: Enoxaparin 40 MG/0.4 ML Syringe SC (09:35)
[2025-01-08] MEDS: Cyanocobalamin 500 MCG Tablet 1000 MCG PO (09:35)
[2025-01-08 09:37] VITALS: BP 113/70; PULSE 68; RESP 18; TEMP 36.4; O2SAT 94
--- NOTE | 2025-01-08 10:45 | CASEMGMT ---
RN CM Face to Face with patient for initial transition planning/care coordination assessment. RN CM introduced self and role at [facility]. Patient lying in bed, alert and oriented, sisters at bedside. Patient willing to participate in assessment and is able to answer all questions appropriately. Care providers, pharmacy, and demographics verified. Strata: 3 PCP: Sarabjit Specialists: Maurizio, pain management; Marizol, conductor yard Preferred Pharmacy: [facility] Retail at discharge. Insurance: [facility] [place] Prescription Benefit: yes Living Will/HPOA: yes, brother Silvino Khan LNOK: brother, sisters Living Arrangements: Patient lives with brother in a single story home with 3 steps or rampt to enter. Patient was independent at home but has been needing more assistance at home from brother Transportation: brother DME/HHC: Patient has shower chair, raised toilet, grab bars, walker, and rollator at home. Patient has been to [facility] in the past and has had HHC as well. Patient wishes to discharge to [facility] for additional rehab and then would like to move to assisted living. Patient declined SNF list. Patient states she has no further needs or concerns at this time. CM to follow for discharge planning needs that may arise. Disposition Plan: [facility] pending acceptance and qualifying stay. Autumn TOMAS, RN, CM
[2025-01-08 11:46] LABS: Bedside Glucose 246 mg/dL (74-106)
[2025-01-08] MEDS: Acetaminophen 500 MG Tablet PO (11:57)
[2025-01-08] MEDS: hydrOXYzine PAM 25 MG Capsule 50 MG PO (11:57)
[2025-01-08] MEDS: Midodrine HCl 5 MG Tablet 15 MG PO ×2 (14:33→23:56)
[2025-01-08 14:39] VITALS: BP 123/51; PULSE 72; RESP 18; TEMP 36.4; O2SAT 99
[2025-01-08 17:02] LABS: Bedside Glucose 147 mg/dL (74-106)
[2025-01-08 20:00] VITALS: RESP 15
[2025-01-08 20:50] VITALS: BP 147/58; PULSE 66; RESP 15; TEMP 36.3; O2SAT 99
[2025-01-08] MEDS: 0.9% Saline Lock 10 ML Syringe IV (23:53)
[2025-01-08] MEDS: Ceftriaxone 1 GM/50 ML BAG IV (23:53)
[2025-01-08] MEDS: Atorvastatin Calcium 80 MG Tablet PO (23:53)
[2025-01-09] MEDS: Carbidopa/Levodopa 25/100 Tablet PO ×4 (00:01→21:17)
[2025-01-09 00:19] LABS: Bedside Glucose 224 mg/dL (74-106)
[2025-01-09 04:12] VITALS: BP 101/53; PULSE 60; RESP 15; TEMP 36.4; O2SAT 95
[2025-01-09 05:31] LABS: Absolute Lymphocyte Count 1.78 X10^3/uL (0.83-4.51); Absolute Neutrophil Count 4.9 X10^3/uL (2.0-7.7); Basophil# 0.02 X10^3/uL; Basophil% 0.3 % (0-1); Eosinophil# 0.25 X10^3/uL; Eosinophils% 3.2 % (0-5); Hemoglobin 11.4 g/dL (12.0-15.0); Lymphocyte # 1.78 X10^3/ul (0.83-4.51); Lymphocyte % 22.8 % (19-41); Mean Corp Hgb Conc 33.5 g/dL (32-36); Mean Corpuscular Hgb 27.8 pg (27.0-32.0); Mean Corpuscular Volume 82.9 fL (81-99); Mean Platelet Vol. 9.7 fl (6.2-12.0); Monocyte# 0.75 X10^3/uL; Monocyte% 9.6 % (0-10); NRBC Flagged by Analyzer 0 % (0-5); Neutrophil # 4.94 X10^3/uL (2.7-7.7); Neutrophil % 63.5 % (47-70); Platelet Count 258 K/mm3 (150-450); RBC Distribution Width CV 15.1 % (11.6-14.6); White Blood Count 7.8 K/mm3 (4.4-11.0)
[2025-01-09] MEDS: Pregabalin 75 MG Capsule PO ×3 (05:55→21:17)
[2025-01-09] MEDS: Levothyroxine 100 MCG Tablet PO (05:55)
[2025-01-09] MEDS: Midodrine HCl 5 MG Tablet 15 MG PO ×3 (05:55→21:17)
[2025-01-09 06:02] LABS: Anion Gap 10 (5-15); BUN 15 mg/dL (4-19); BUN/Creat Ratio 16.7 RATIO (10-20); Carbon Dioxide 24.3 mmol/L (21.0-32.0); Chloride 103 mmol/L (98-108); Creatinine, Serum 0.88 mg/dL (0.70-1.20); EST Glomerular Filtration Rate 67 (>60); Estimated Creatinine Clearance 60.74 ml/min (50-250); Glucose 151 mg/dL (70-99); Magnesium 1.8 mg/dL (1.5-2.2); Phosphorus 4.6 mg/dL (2.7-4.5); Potassium 3.8 mmol/L (3.3-5.1); Sodium Level 137 mmol/L (133-145)
[2025-01-09] MEDS: Insulin Lispro 100 UNIT/ML INSULN.PEN SC ×4 (07:08→21:22)
[2025-01-09 07:28] LABS: Bedside Glucose 179 mg/dL (74-106)
--- NOTE | 2025-01-09 07:36 | PN.HOSP_ITS ---
Reason for Visit Reason for Visit: Diagnoses Metabolic encephalopathy (01/07/25) Urinary tract infection, site not specified (01/07/25) Subjective Subjective Patient seen urine cultures nonsignificant growth? Gram negative subhash [place] Count 11,000-25,000 CFU/mL. Patient however remains deconditioned case discussed with case management plan is for [facility] Objective Data Objective Data Vital Signs: Vital Signs Temp Pulse Resp BP Pulse Ox O2 Del Method 97.6 F L 60 15 101/53 L 95 Room Air 01/09/25 04:12 01/09/25 04:12 01/09/25 04:12 01/09/25 04:12 01/09/25 04:12 01/09/25 04:12 Oxygen Delivery Method Room Air Weight: 83.28 kg Body Mass Index (BMI) 27.1 Intake & Output: Intake and Output for Last 24 Hours 01/07/25 01/08/25 01/09/25 23:59 23:59 23:59 Intake Total 50 / 50 50 / 50 Balance 50 / 50 50 / 50 Lab / Micro Data 01/09/25 05:13 01/09/25 05:13 Labs: Laboratory Results - last 24 hr 01/08/25 11:16: POC Glucose 246 H 01/08/25 16:43: POC Glucose 147 H 01/08/25 23:46: POC Glucose 224 H 01/09/25 05:13: WBC 7.8, RBC 4.10 L, Hgb 11.4 L, Hct 34.0 L, MCV 82.9, MCH 27.8, MCHC 33.5, RDW Std Deviation 46.0 H, RDW Coeff of Alivia 15.1 H, Plt Count 258, MPV 9.7, Immature Gran % (Auto) 0.600, Neut % (Auto) 63.5, Lymph % (Auto) 22.8, [place] % (Auto) 9.6, Eos % (Auto) 3.2, Baso % (Auto) 0.3, Absolute Neuts (auto) 4.9, Absolute Lymphs (auto) 1.78, Nucleated RBC % 0, Sodium 137, Potassium 3.8, Chloride 103, Carbon Dioxide 24.3, Anion Gap 10, BUN 15, Creatinine 0.88, Estim Creat Clear Calc 60.74, Est GFR (MDRD) Non-Af 67, BUN/Creatinine Ratio 16.7, G lucose 151 H, Calcium 9.0, Phosphorus 4.6 H, Magnesium 1.8 01/09/25 07:07: POC Glucose 179 H Micro: Microbiology 01/07/25 19:50 Urine, Clean Catch Urine Culture - Preliminary Gram negative subhash Physical Exam Narrative GENERAL: Patient appears restless HEENT: Atraumatic; normocephalic EYES; Anicteric, Normal Conjunctiva NECK; supple, normal thyroid, RESPIRATORY: Diminished to auscultation CARDIOVASCULAR: Regular S1 S2, GI: soft, normoactive bowel sounds, : No Renal angle tenderness; EXTREMITIES: No edema, no clubbing, MUSCULOSKELETAL: no muscle wasting NEURO: Awake; no lateralizing signs. SKIN: No Rash PSYCH; restless Assessment & Plan Assessment/Plan (1) Metabolic encephalopathy: (2) UTI (urinary tract infection): PLAN: Plan Patient is a 79-year-old lady admitted with progressive generalized weakness with associated confusion and hallucination. Workup did reveal presence of acute cystitis admitted to regular nursing floor for further management 1. Acute metabolic encephalopathy ? Secondary to UTI admitted to regular nursing floor where patient is currently being treated ? 01/09/2025; patient back to baseline 2. Acute cystitis ? Patient was started on ceftriaxone urine culture sent we will follow-up on result Patient seen urine cultures nonsignificant growth? Gram negative subhash [place] Count 11,000-25,000 CFU/mL. Will complete 3-day treatment with antibiotics 3. Parkinson's disease Patient is on carbidopa?levodopa did continue with home dose 4. Depression with anxiety Diet did continue patient home meds including buspirone and duloxetine 4. Chronic orthostatic hypotension ? Patient is on fludrocortisone and midodrine did continue 5. Hypothyroidism ? Patient is on levothyroxine home dose continued 6. GERD ? Patient is on Protonix 7. Dyslipidemia ?Patient is on statin therapy, continued at home dose 8. Diabetes mellitus type 2 The patient is on metformin held on admission placed on Accu-Cheks AC and at bedtime with a sliding scale coverage. Also placed on 1800 ADA diet 9. DVT prophylaxis ? Subcu Lovenox 10. Physical deconditioning ? Requested for PT OT eval and social insurance administrator to assist with discharge planning Charges/Coding Visit Charges Inpatient E&M: 85099 Subs Hosp L2
[2025-01-09 08:00] VITALS: O2SAT 96
[2025-01-09 08:27] VITALS: BP 105/65; PULSE 64; RESP 16; TEMP 36.4; O2SAT 97
[2025-01-09] MEDS: Pantoprazole Sodium 40 MG Tablet PO (08:33)
[2025-01-09] MEDS: Magnesium Chloride 64 MG Delay Rel.Tablet 128 MG PO (08:33)
[2025-01-09] MEDS: Fludrocortisone Acetate 0.1 MG Tablet PO (08:33)
[2025-01-09] MEDS: buPROPion (XL) 150 MG TABLET.XL PO (08:33)
[2025-01-09] MEDS: buPROPion (XL) 300 MG TABLET.XL PO (08:33)
[2025-01-09] MEDS: Docusate Sodium 100 MG Capsule PO ×2 (08:33→21:17)
[2025-01-09] MEDS: busPIRone 5 MG Tablet PO ×2 (08:33→21:18)
[2025-01-09] MEDS: Cyanocobalamin 500 MCG Tablet 1000 MCG PO (08:34)
[2025-01-09] MEDS: DULoxetine Hcl 30 MG Capsule PO (08:34)
[2025-01-09] MEDS: DULoxetine Hcl 60 MG Capsule PO (08:34)
--- NOTE | 2025-01-09 10:26 | CASEMGMT ---
Discharge Planning Referral sent to [facility]. Mell Sandoval DC Planning Asst.
--- NOTE | 2025-01-09 11:14 | CASEMGMT ---
Discharge Planning [facility] has accepted. SW updated. Mell Sandoval DC Planning Asst.
[2025-01-09 12:07] LABS: Bedside Glucose 249 mg/dL (74-106)
--- NOTE | 2025-01-09 12:28 | CASEMGMT ---
Social Work SW met with pt to discuss discharge plan. Pt vacillating back and forth between returning home and going to SNF. Pt denies need for list of SNF providers stating she would like to go to [place] if SNF is needed. PARUL discussed with pt recommendations from jennifer moncada. With pt permission, phone call to pt brother Silvino, who pt lives with and discussed discharge plan. Silvino feels pt would benefit from short term SNF stay as she has been having a difficult time at home recently and would benefit from Rehab. PARUL met with pt again and discussed phone call with Silvino. Pt is agreeable to go to [place] for short term rehab stay. DC human services assistant made referral and pt has been accepted and can discharge to [place] on Sunday if medically ready. Pt aware and agreeable with discharge plan. VM left for pt brother to update on dc plan. Physician notified. PASRR completed in [facility] for SNF admission. Green Sheet placed on chart to facilitate a weekend discharge. Plan: [facility], on Sunday if medically ready LOPEZ Ferrera
[2025-01-09] MEDS: hydrOXYzine PAM 25 MG Capsule 50 MG PO (13:57)
[2025-01-09 14:30] VITALS: BP 128/67; PULSE 79; RESP 18; TEMP 36.7; O2SAT 93
[2025-01-09 17:06] LABS: Bedside Glucose 174 mg/dL (74-106)
[2025-01-09 21:10] VITALS: BP 157/65; PULSE 65; RESP 16; TEMP 36.6; O2SAT 98
[2025-01-09] MEDS: 0.9% Normal Saline (250mL Bag) 250 ML 15 ML IV (21:13)
[2025-01-09] MEDS: Ceftriaxone 1 GM/50 ML BAG IV (21:13)
[2025-01-09] MEDS: 0.9% Saline Lock 10 ML Syringe IV (21:14)
[2025-01-09] MEDS: Atorvastatin Calcium 80 MG Tablet PO (21:17)
[2025-01-09 23:38] LABS: Bedside Glucose 185 mg/dL (74-106)
[2025-01-10 03:40] VITALS: BP 80/60; PULSE 60; RESP 16; TEMP 36.4; O2SAT 97
[2025-01-10 04:28] VITALS: BP 120/90
[2025-01-10] MEDS: Insulin Lispro 100 UNIT/ML INSULN.PEN SC (06:27)
[2025-01-10] MEDS: Levothyroxine 100 MCG Tablet PO (06:30)
[2025-01-10] MEDS: Carbidopa/Levodopa 25/100 Tablet PO (06:30)
[2025-01-10] MEDS: Pregabalin 75 MG Capsule PO (06:37)
[2025-01-10 06:42] LABS: Absolute Lymphocyte Count 2.24 X10^3/uL (0.83-4.51); Absolute Neutrophil Count 4.1 X10^3/uL (2.0-7.7); Basophil# 0.04 X10^3/uL; Basophil% 0.5 % (0-1); Eosinophil# 0.33 X10^3/uL; Eosinophils% 4.5 % (0-5); Hematocrit 36.7 % (37-47); Hemoglobin 11.9 g/dL (12.0-15.0); Lymphocyte # 2.24 X10^3/ul (0.83-4.51); Lymphocyte % 30.8 % (19-41); Mean Corp Hgb Conc 32.4 g/dL (32-36); Mean Corpuscular Hgb 27.7 pg (27.0-32.0); Mean Corpuscular Volume 85.5 fL (81-99); Monocyte# 0.53 X10^3/uL; Monocyte% 7.3 % (0-10); NRBC Flagged by Analyzer 0 % (0-5); Neutrophil # 4.11 X10^3/uL (2.7-7.7); Neutrophil % 56.5 % (47-70); Platelet Count 291 K/mm3 (150-450); RBC Distribution Width CV 15.1 % (11.6-14.6); RBC Distribution Width SD 47.4 fl (35.1-43.9); Red Blood Count 4.29 M/mm3 (4.2-5.4); White Blood Count 7.3 K/mm3 (4.4-11.0)
[2025-01-10] MEDS: Midodrine HCl 5 MG Tablet 15 MG PO (06:44)
--- NOTE | 2025-01-10 07:38 | PCM.DC.SUM ---
Providers Date of Admission: 01/07/25 Primary Care Physician: Dr. Sumit Whipple MD Reason For Visit: UTI WITH ENCEPHALOPATHY Diagnosis Discharge Diagnosis (1) Metabolic encephalopathy: Status: Acute Code(s): G93.41 - Metabolic encephalopathy (2) UTI (urinary tract infection): Status: Acute Code(s): N39.0 - Urinary tract infection, site not specified Plan Patient is a 79-year-old lady admitted with progressive generalized weakness with associated confusion and hallucination. Workup did reveal presence of acute cystitis admitted to regular nursing floor for further management 1. Acute metabolic encephalopathy ? Secondary to UTI admitted to regular nursing floor where patient is currently being treated ? 01/09/2025; patient back to baseline 2. Acute cystitis ? Patient was started on ceftriaxone urine culture sent we will follow-up on result Patient seen urine cultures nonsignificant growth? Gram negative subhash [place] Count 11,000-25,000 CFU/mL. Will complete 3-day treatment with antibiotics 3. Parkinson's disease Patient is on carbidopa?levodopa did continue with home dose 4. Depression with anxiety Diet did continue patient home meds including buspirone and duloxetine 4. Chronic orthostatic hypotension ? Patient is on fludrocortisone and midodrine did continue 5. Hypothyroidism ? Patient is on levothyroxine home dose continued 6. GERD ? Patient is on Protonix 7. Dyslipidemia ?Patient is on statin therapy, continued at home dose 8. Diabetes mellitus type 2 The patient is on metformin held on admission placed on Accu-Cheks AC and at bedtime with a sliding scale coverage. Also placed on 1800 ADA diet 9. DVT prophylaxis ? Subcu Lovenox 10. Physical deconditioning ? Requested for PT OT eval and psychiatric social worker supervisor to assist with discharge planning Medications at Discharge Home Medications pantoprazole 40 mg tablet,delayed release 40 mg PO DAILY GERD 10/22/18 pregabalin 75 mg capsule 75 mg PO TID pain 08/29/22 levothyroxine 100 mcg tablet 100 mcg PO QDAY thyroid 12/10/23 rosuvastatin 40 mg tablet 40 mg PO QDAY HLD 12/10/23 ascorbic acid (vitamin C) 500 mg tablet 500 mg PO QDAY vitamin 05/21/24 calcium 600 mg (as carbonate)-vit D3 20 mcg (800 unit) chewable tablet (Caltrate plus D) 1 tab PO QAM supplement 05/21/24 cyanocobalamin (vitamin B-12) 1,000 mcg tablet (Vitamin B-12) 1,000 mcg PO QDAY supplement 05/21/24 d-mannose 500 mg capsule 500 mg PO .QD spasms 05/21/24 docusate sodium 100 mg capsule 100 mg PO BID stool softner 05/21/24 hydroxyzine HCl 50 mg tablet 50 mg PO Q6H PRN anxiety 05/21/24 magnesium oxide 500 mg capsule 500 mg PO QDAY SUPPLEMENT 05/21/24 metformin 1,000 mg tablet 1,000 mg PO BID DM 05/21/24 acetaminophen 500 mg tablet 500 mg PO Q8H PRN PAIN 06/11/24 tiarra.stocking,knee,reg,smal (T.E.D. Anti-Embolism Stocking) #24 ea 10/17/24 fludrocortisone 0.1 mg tablet 0.1 mg PO BREAKFAST #30 tabs 10/17/24 diphenhydramine HCl 25 mg capsule (Benadryl) 25 mg PO BID PRN PRN itching #20 caps 11/14/24 bupropion HCl 300 mg 24 hr tablet, extended release 300 mg PO QDAY depression #90 tabs 12/03/24 carbidopa 25 mg-levodopa 100 mg tablet 1 tab PO TID 12/03/24 midodrine 10 mg tablet 15 mg PO TID 12/03/24 bupropion HCl 150 mg 24 hr tablet, extended release 150 mg PO QAM #90 tabs 12/26/24 buspirone 5 mg tablet 5 mg PO BID mood #180 tabs 12/26/24 duloxetine 30 mg capsule,delayed release 30 mg PO DAILY depression #90 caps 12/26/24 duloxetine 60 mg capsule,delayed release 60 mg PO DAILY mood #90 caps 12/26/24 Hospital Course Summary of Care Provided Minutes Spent on Discharge: 32 Physical Exam Narrative GENERAL: Cooperative HEENT: Atraumatic; normocephalic EYES; Anicteric, Normal Conjunctiva NECK; supple, normal thyroid, RESPIRATORY: Diminished to auscultation CARDIOVASCULAR: Regular S1 S2, GI: soft, normoactive bowel sounds, : No Renal angle tenderness; EXTREMITIES: No edema, no clubbing, MUSCULOSKELETAL: no muscle wasting NEURO: Awake; no lateralizing signs. SKIN: No Rash PSYCH; flat affect Weight / BMI Weight Weight: 83.28 kg Body Mass Index (BMI) 27.1 ABG / Lab / Microbiology Data 01/10/25 05:58 01/10/25 05:58 Laboratory: Laboratory Results - last 24 hr 01/09/25 11:22: POC Glucose 249 H 01/09/25 16:35: POC Glucose 174 H 01/09/25 21:21: POC Glucose 185 H 01/10/25 05:58: WBC 7.3, RBC 4.29, Hgb 11.9 L, Hct 36.7 L, MCV 85.5, MCH 27.7, MCHC 32.4, RDW Std Deviation 47.4 H, RDW Coeff of Alivia 15.1 H, Plt Count 291, MPV 10.0, Immature Gran % (Auto) 0.400, Neut % (Auto) 56.5, Lymph % (Auto) 30.8, Kingfisher % (Auto) 7.3, Eos % (Auto) 4.5, Baso % (Auto) 0.5, Absolute Neuts (auto) 4.1, Absolute Lymphs (auto) 2.24, Nucleated RBC % 0, Sodium 142, Potassium 4.1, Chloride 104, Carbon Dioxide 25.6, Anion Gap 12, BUN 13, Creatinine 0.88, Estim Creat Clear Calc 60.74, Est GFR (MDRD) Non-Af 68, BUN/Creatinine Ratio 14.9, Glucose 150 H, Calcium 9.3 Microbiology: Microbiology 01/07/25 21:45 Blood Culture (Wb) - Anticubital Left Blood Culture - Preliminary No growth in 48 hours. 01/07/25 22:01 Blood Culture (Wb) - Anticubital Right Blood Culture - Preliminary No growth in 48 hours. 01/07/25 19:50 Urine, Clean Catch Urine Culture - Final Klebsiella aerogenes D/C Instructions Discharge Diet: No restrictions Discharge Activity: Return to Normal Activity Call your doctor if you observe: Fever of 101 or Higher, Shortness of breath, Fainting spells and Chest pain DC O2, CPAP, BIPAP Needs Home O2 Discharge instructions: No Meaningful Use Info Meaningful Use Meaningful Use Diagnoses (Choose all that apply): None applicable Ischemic Stroke Statin Dosing Therapy Reference: STATIN DOSE THERAPY REFERENCE: * Patients > 75 years receive moderate or high dose statin therapy. * Patients 75 years or YOUNGER should receive HIGH intensity statin dose unless contraindicated. You will be required to document reason for non-treatment if statin daily dose does not meet guidelines. HIGH DOSE STATIN THERAPY DAILY Atorvastatin > than or = to 40 mg Rosuvastatin > than or = to 20 mg Amlodipine + Atorvastatin > than or = to 2.5/40 mg Ezetimibe + Simvastatin 10/80 mg Simvastatin 80mg Discharge Plan Admission Admit Date/Time: 01/07/25 22:13 Attending Provider: Silvino Lopez Primary Care Provider: Sumit Whipple [employer] Providers: Glen Mccray Discharge Orders/Prescriptions Prescriptions: Continued pregabalin 75 mg capsule 75 mg PO TID levothyroxine 100 mcg tablet 100 mcg PO QDAY rosuvastatin 40 mg tablet 40 mg PO QDAY hydroxyzine HCl 50 mg tablet 50 mg PO Q6H PRN (Reason: anxiety) d-mannose 500 mg capsule 500 mg PO .QD ascorbic acid (vitamin C) 500 mg tablet 500 mg PO QDAY docusate sodium 100 mg capsule 100 mg PO BID Caltrate 600 plus D 600 mg-20 mcg (800 unit) tablet,chewable 1 tab PO QAM cyanocobalamin (vitamin B-12) [Vitamin B-12] 1,000 mcg tablet 1,000 mcg PO QDAY midodrine 10 mg tablet 15 mg PO TID carbidopa-levodopa 25-100 mg tablet 1 tab PO TID bupropion HCl 300 mg tablet extended release 24 hr 300 mg PO QDAY Qty: 90 1RF Rx Instructions: take in addition to 300mg tablet for 450mg total duloxetine 30 mg capsule,delayed release(DR/EC) 30 mg PO DAILY Qty: 90 1RF Rx Instructions: take in addition to 1 60mg capsule for a total of 90mg daily duloxetine 60 mg capsule,delayed release(DR/EC) 60 mg PO DAILY Qty: 90 1RF Rx Instructions: take in addition to 1 30mg capsule for a total of 90mg daily buspirone 5 mg tablet 5 mg PO BID Qty: 180 1RF bupropion HCl 150 mg tablet extended release 24 hr 150 mg PO QAM Qty: 90 1RF Rx Instructions: take in addition to 300mg tablet for 450mg total pantoprazole 40 MG tablet 40 mg PO DAILY metformin 1,000 mg tablet 1,000 mg PO BID magnesium oxide 500 mg capsule 500 mg PO QDAY acetaminophen 500 mg tablet 500 mg PO Q8H PRN (Reason: PAIN) fludrocortisone 0.1 mg Tablet 0.1 mg PO BREAKFAST Qty: 30 2RF (DME) T.E.D. Anti-Embolism Stocking Misc See Rx Instructions .Route Qty: 24 0RF Rx Instructions: As directed diphenhydramine HCl [Benadryl] 25 mg capsule 25 mg PO BID PRN PRN (Reason: itching) Qty: 20 0RF Rx Instructions: Take if being given oxycodone to avoid side effects of itching. Referrals / Follow Up: Sumit Whipple Chi, MD [Primary Care Provider] - Within 2 Weeks Disposition Disposition (needs filled in before D/C Order can be placed): Long Term Facility Charges/Coding Visit Charges Inpatient E&M: 75146 Disch Hosp >30min
--- NOTE | 2025-01-10 07:42 | PCM.TXEXTCAR ---
Diet Diet Order/Speech Therapy: INPATIENT Hospital Diet / Speech Therapy Order(s) 01/07/25 23:39 Diet: Consistent Carb - Calorie Controlled Food consistency:: Regular Liquid Consistency:: Regular/Thin How many daily calories?: 1600 calorie Routine Orders/Code Status Code Status: DNRCC-A DC O2, CPAP, BIPAP needs Home O2 Discharge instructions: No Therapies Occupational Therapy: Eval and Treat Speech Therapy: Eval and Treat Problem/Diagnosis (1) Metabolic encephalopathy: Status: Acute Code(s): G93.41 - Metabolic encephalopathy (2) UTI (urinary tract infection): Status: Acute Code(s): N39.0 - Urinary tract infection, site not specified Plan Patient is a 79-year-old lady admitted with progressive generalized weakness with associated confusion and hallucination. Workup did reveal presence of acute cystitis admitted to regular nursing floor for further management 1. Acute metabolic encephalopathy ? Secondary to UTI admitted to regular nursing floor where patient is currently being treated ? 01/09/2025; patient back to baseline 2. Acute cystitis with Klebsiella ? Patient was started on ceftriaxone urine culture sent we will follow-up on result Patient seen urine cultures nonsignificant growth? Gram negative subhash [place] Count 11,000-25,000 CFU/mL. Will complete 3-day treatment with antibiotics 3. Parkinson's disease Patient is on carbidopa?levodopa did continue with home dose 4. Depression with anxiety Diet did continue patient home meds including buspirone and duloxetine 4. Chronic orthostatic hypotension ? Patient is on fludrocortisone and midodrine did continue 5. Hypothyroidism ? Patient is on levothyroxine home dose continued 6. GERD ? Patient is on Protonix 7. Dyslipidemia ?Patient is on statin therapy, continued at home dose 8. Diabetes mellitus type 2 The patient is on metformin held on admission placed on Accu-Cheks AC and at bedtime with a sliding scale coverage. Also placed on 1800 ADA diet 9. DVT prophylaxis ? Subcu Lovenox 10. Physical deconditioning ? Requested for PT OT eval and social media campaign manager to assist with discharge planning Allergies/Procedures Done in Hospital Allergies Opioids - Morphine Analogues Allergy (Verified 01/07/25 17:42) Rash adhesive tape Adverse Reaction (Unknown, Verified 01/07/25 17:42) Rash tramadol (From Ultra) Adverse Reaction (Verified 01/07/25 17:42) Itching Type of Care/Length of Stay Estimated LOS: Convalescent Care Less Than 30 days Type of Care Needed: Skilled Rehab Potential: Good Prognosis: Good Additional Orders/Day of Discharge Day of Discharge: 01/10/25 Dietary and Speech Recommendations Dietitian Recommendations/Changes: Continue CCD diet to manage blood sugars. Discharge Plan Admission Admit Date/Time: 01/07/25 22:13 Attending Provider: Silvino Lopez Primary Care Provider: Sumit Whipple [employer] Providers: Glen Mccray Discharge Orders/Prescriptions Prescriptions: Continued pregabalin 75 mg capsule 75 mg PO TID levothyroxine 100 mcg tablet 100 mcg PO QDAY rosuvastatin 40 mg tablet 40 mg PO QDAY hydroxyzine HCl 50 mg tablet 50 mg PO Q6H PRN (Reason: anxiety) d-mannose 500 mg capsule 500 mg PO .QD ascorbic acid (vitamin C) 500 mg tablet 500 mg PO QDAY docusate sodium 100 mg capsule 100 mg PO BID Caltrate 600 plus D 600 mg-20 mcg (800 unit) tablet,chewable 1 tab PO QAM cyanocobalamin (vitamin B-12) [Vitamin B-12] 1,000 mcg tablet 1,000 mcg PO QDAY midodrine 10 mg tablet 15 mg PO TID carbidopa-levodopa 25-100 mg tablet 1 tab PO TID bupropion HCl 300 mg tablet extended release 24 hr 300 mg PO QDAY Qty: 90 1RF Rx Instructions: take in addition to 300mg tablet for 450mg total duloxetine 30 mg capsule,delayed release(DR/EC) 30 mg PO DAILY Qty: 90 1RF Rx Instructions: take in addition to 1 60mg capsule for a total of 90mg daily duloxetine 60 mg capsule,delayed release(DR/EC) 60 mg PO DAILY Qty: 90 1RF Rx Instructions: take in addition to 1 30mg capsule for a total of 90mg daily buspirone 5 mg tablet 5 mg PO BID Qty: 180 1RF bupropion HCl 150 mg tablet extended release 24 hr 150 mg PO QAM Qty: 90 1RF Rx Instructions: take in addition to 300mg tablet for 450mg total pantoprazole 40 MG tablet 40 mg PO DAILY metformin 1,000 mg tablet 1,000 mg PO BID magnesium oxide 500 mg capsule 500 mg PO QDAY acetaminophen 500 mg tablet 500 mg PO Q8H PRN (Reason: PAIN) fludrocortisone 0.1 mg Tablet 0.1 mg PO BREAKFAST Qty: 30 2RF (DME) T.E.D. Anti-Embolism Stocking Misc See Rx Instructions .Route Qty: 24 0RF Rx Instructions: As directed diphenhydramine HCl [Benadryl] 25 mg capsule 25 mg PO BID PRN PRN (Reason: itching) Qty: 20 0RF Rx Instructions: Take if being given oxycodone to avoid side effects of itching. Referrals / Follow Up: Sumit Whipple Chi, MD [Primary Care Provider] - Within 2 Weeks Disposition Disposition (needs filled in before D/C Order can be placed): [facility] Facility
[2025-01-10 07:46] LABS: Anion Gap 12 (5-15); BUN 13 mg/dL (4-19); BUN/Creat Ratio 14.9 RATIO (10-20); Calcium,Total 9.3 mg/dL (7.6-11.0); Carbon Dioxide 25.6 mmol/L (21.0-32.0); Chloride 104 mmol/L (98-108); Creatinine, Serum 0.88 mg/dL (0.70-1.20); EST Glomerular Filtration Rate 68 (>60); Estimated Creatinine Clearance 60.74 ml/min (50-250); Glucose 150 mg/dL (70-99); Potassium 4.1 mmol/L (3.3-5.1); Sodium Level 142 mmol/L (133-145)
--- NOTE | 2025-01-10 09:01 | PCA ---
Discharge orders faxed to [facility] , copies placed in chart. [facility] placed [facility] to [facility] transportation, ETA [id number]
[2025-01-10 09:39] VITALS: BP 90/51; PULSE 59; RESP 18; TEMP 36.1; O2SAT 95
[2025-01-10] MEDS: Magnesium Chloride 64 MG Delay Rel.Tablet 128 MG PO (09:48)
[2025-01-10] MEDS: Docusate Sodium 100 MG Capsule PO (09:48)
[2025-01-10] MEDS: Fludrocortisone Acetate 0.1 MG Tablet PO (09:48)
[2025-01-10] MEDS: DULoxetine Hcl 30 MG Capsule PO (09:48)
[2025-01-10] MEDS: busPIRone 5 MG Tablet PO (09:48)
[2025-01-10] MEDS: Pantoprazole Sodium 40 MG Tablet PO (09:49)
[2025-01-10] MEDS: buPROPion (XL) 150 MG TABLET.XL PO (09:49)
[2025-01-10] MEDS: Cyanocobalamin 500 MCG Tablet 1000 MCG PO (09:52)
[2025-01-10] MEDS: DULoxetine Hcl 60 MG Capsule PO (09:52)
[2025-01-10] MEDS: Enoxaparin 40 MG/0.4 ML Syringe SC (09:52)
[2025-01-10] MEDS: buPROPion (XL) 300 MG TABLET.XL PO (09:54)
--- NOTE | 2025-01-10 10:13 | NURSING ---
Nurse to nurse reported to Lindsey @ [facility]. Advised Lindsey that transport is on site to [facility] patient.
[2025-01-10 10:34] LABS: Bedside Glucose 170 mg/dL (74-106)
== END 2025-01-10 10:21 | disposition skilled nursing facility (03) | DRG 689 ==
LOC: ED 22:05 → MS3 22:13
PROVIDERS: Admitting Provider Family Medicine; Emergency Provider Emergency Medicine; PCP Family Medicine Geriatric Medicine; Visit Provider Internal Medicine
DX: N39.0 Urinary tract infection, site not specified (principal); G93.41 Metabolic encephalopathy; E11.65 Type 2 diabetes mellitus with hyperglycemia; G20.A1 Parkinson's disease without dyskinesia, without mention of fluctuations; I10 Essential (primary) hypertension; E03.9 Hypothyroidism, unspecified; I95.1 Orthostatic hypotension; K21.9 Gastro-esophageal reflux disease without esophagitis; E78.5 Hyperlipidemia, unspecified; F41.8 Other specified anxiety disorders; Z79.52 Long term (current) use of systemic steroids; Z79.899 Other long term (current) drug therapy; Z79.890 Hormone replacement therapy; Z88.5 Allergy status to narcotic agent; Z88.8 Allergy status to other drugs, medicaments and biological substances; Z79.84 Long term (current) use of oral hypoglycemic drugs; Z79.02 Long term (current) use of antithrombotics/antiplatelets; B96.1 Klebsiella pneumoniae [K. pneumoniae] as the cause of diseases classified elsewhere
CPT/HCPCS: 36415; 70450; 71045; 80048; 80076; 80307; 81001; 82077; 82962; 83605; 83690; 83735; 84100; 84443; 84484; 85025; 85610; 85730; 87040; 87077; 87086; 87088; 87186; 93005; 97162; 97166; 99285; A4216

== ENCOUNTER → 2025-02-26 | Outpatient (CLI) | payer MEDICARE, BC, SELFPAY ==
--- OUTSIDE RECORDS SUMMARY | 2025-02-26 19:34 | XMS RPT_ITS | CCD ---
Author Organization [facility] Care Team Providers Care Facility Environmental Technician Name Role Phone Unavailable Primary Care Provider Unavaileric e Sarabjit, Dr. Sumit Hansen Primary Care Provider [phone] Sarabjit, Dr. Sumit Hansen Referring Provider Dr. Mikayla Dukes Attending Provider Unavailable Primary Care Provider Unavailabl jeff Whipple, Dr. Sumit Hansen Primary Care Provider Sarabjit, Dr. Sumit Hansen Referring Provider Dr. Mikayla Dukes Attending Provider AGA GARCIA Referring Unavailable AGA GARCIA Attending Unavailable Sarabjit, Sumit Chi Primary Care Unavailable Collette Nieves Attending Unavailable Oleghe OLS, Efewongbe Attending Unavailabl e Sarabjit, Sumit Chi Primary Care Unavailable Sarabjit, Sumit Chi Primary Care Unavailable Oleghe OLS, Efewongbe Attending Unavailabl e Sarabjit, Sumit Chi Primary Care Unavailable Oleghe OLS, Efewongbe Attending Unavailabl e Oleghe OLS, Efewongbe Referring Unavailabl e Sarabjit, Sumit Chi Attending Unavailable Sarabjit, Sumit Chi Primary Care Unavailable Sarabjit, Sumit Chi Primary Care Unavailable Oleghe OLS, Efewongbe Attending Unavailabl e Oleghe OLS, Efewongbe Referring Unavailabl e Sarabjit, Sumit Chi Primary Care Unavailable Oleghe OLS, Efewongbe Attending Unavailabl e Oleghe OLS, Efewongbe Attending Unavailabl e Sarabjit, Sumit Chi Primary Care Unavailable Sarabjit, Sumit Chi Referring Unavailable Sarabjit, Sumit Chi Primary Care Unavailable Mg Jiang Attending Unavailable Sarabjit, Sumit Chi Attending Unavailable Sarabjit, Sumit Chi Referring Unavailable Sarabjit, Sumit Chi Primary Care Unavailable Sarabjit, Sumit Chi Primary Care Unavailable Zack Zamudio Attending Unavailable Glen Steven Attending Unavailable Glen Steven Referring Unavailable Sarabjit, Sumit Chi Primary Care Unavailable Sarabjit, Sumit Chi Referring Unavailable Sarabjit, Sumit Chi Attending Unavailable Sarabjit, Sumit Chi Primary Care Unavailable Tanya Joshi Unavailable Sarabjit, Sumit Chi Referring Unavailable Sarabjit, Sumit Chi Attending Unavailable Sarabjit, Sumit Chi Primary Care Unavailable Sarabjit, Sumit Chi Referring Unavailable Sarabjit, Sumit Chi Attending Unavailable Sarabjit, Sumit Chi Primary Care Unavailable Sarabjit, Sumit Chi Referring Unavailable Sarabjit, Sumit Chi Primary Care Unavailable Sarabjit, Sumit Chi Attending Unavailable Sarabjit, Sumit Chi Primary Care Unavailable Carrie Earl Attending Unavailabl e Sarabjit, Sumit Chi Primary Care Unavailable Collette Nieves Attending Unavailable Sarabjit, Sumit Chi Primary Care Unavailable Collette Nieves Attending Unavailable Sarabjit, Sumit Chi Primary Care Unavailable Collette Nieves Attending Unavailable Sarabjit, Sumit Chi Attending Unavailable Sarabjit, Sumit Chi Primary Care Unavailable Sarabjit, Sumit Chi Primary Care Unavailable Rafia Quicka Kirstin Attending Unavailable White, Andi Admitting Unavailable White, Andi Consulting Unavailable Koram, Syeda Kirstin Consulting Unavailable Juanito Saavedra Consulting Unavailable Sarabjit, Sumit Chi Primary Care Unavailable OrlintsoniMarilu castros F Admitting Unavailable Marilu Mccrays F Consulting Unavailable Silvino Lopez Attending Unavailable Sarabjit, Sumit Chi Referring Unavailable Sarabjit, Sumit Chi Attending Unavailable Sarabjit, Sumit Chi Primary Care Unavailable Sarabjit, Sumit Chi Primary Care Unavailable Collette Nieves Attending Unavailable Sarabjit, Sumit Chi Primary Care Unavailable Carrie Hay Attending Unavailable Kamla Ward NP Attending Unavailable Sarabjit, Sumit Chi Primary Care Unavailable Sarabjit, Sumit Chi Primary Care Unavailable White Andi Attending Unavailable Sarabjit, Sumit Chi Primary Care Unavailable White, Andi Consulting Unavailable White, Andi Admitting Unavailable Koram, Syeda Kirstin Attending Unavailable Koram, Syeda Kirstin Consulting Unavailable Juaniot Saavedra Consulting Unavailable Sarabjit, Sumit Chi Primary Care Unavailable OrlintsoniBryan castroGlen F Consulting Unavailable Bryan Mccrayolas F Admitting Unavailable Silvino Lopez Attending Unavailable Silvino Lopez Consulting Unavailable Glen Mccray F Attending Unavailable Sarabjit, Sumit Chi Primary Care Unavailable Collette Nieves Attending Unavailable Sarabjit, Sumit Chi Primary Care Unavailable Christina Wolff Attending Unavailable Juanito Saavedra Attending Unavailable Collette Nieves Attending Unavailable Sarabjit, Sumit Chi Primary Care Unavailable Sumit Whipple Chi Attending Unavailable Sumit Whipple Chi Primary Care Unavailable SarabjitSumit herman Chi Referring Unavailable Sumit Whipple Chi Attending Unavailable Sarabjit, Sumit Chi Primary Care Unavailable Allergies Allergy Classification Reported Allergen(s) Allergy Type Date of Onset Reaction(s) Facility (10 sources) acetaminophen / oxyCODONE; Translations: [OXYCODONE-ACETAM INOPHEN] Drug Allergy 1 Itching [facility] Repository (10 sources) omeprazole; Translations: [OMEPRAZOLE] Drug Allergy 3 Intolerance [facility] (10 sources) tapentadol; Translations: [TAPENTADOL] Drug Allergy 2 GI Upset [facility] Rep[facility] (10 sources) traMADol; Translations: [TRAMADOL HCL] Drug Allergy 1 Itching [facility] (13 sources) Opioids - Morphine Analogues; Translations: [Opioids - Morphine Analogues] Allergy to substance 9 [facility] (8 sources) Adhesive Tape; Translations: [adhesive tape] Propensity to adverse reactions 3 [facility] (1 source) traMADol Drug Allergy 5 [facility] Repository Medications Current Medications Medication Drug Class(es) Dates Sig (Normalized) Sig (Original) acetaminophen 500 mg oral tablet (12 sources) Start: 10-22-2018 take 100 mg by mouth every eight hours Acetaminophen Active 100 MG PO Q8H October 22, 2018 12:00am calcium carbonate 1250 mg chewable tablet (12 sources) Start: 10-22-2018 take 500 mg by mouth once daily Calcium Carbonate Active 500 MG PO DAILY October 22, 2018 12:00am cholecalciferol 0.05 mg oral capsule (20 sources) Vitamin D Start: 10-22-2018 take 2000 [IU] by mouth once daily Cholecalciferol (Vitamin D3) Active 2000 UNIT PO DAILY October 22, 2018 12:00am Start: 04-24-2014 take 1-2 tablets by mouth once daily Cholecalciferol, Vitamin D3, 2,000 unit tab Indications: Vitamin D deficiency Take 1-2 tablets by mouth once daily. 180 tablet 3 04/24/2014 Active Comment on above: Take 1-2 tablets by mouth once daily. magnesium oxide 500 mg oral capsule (20 sources) Start: 10-22-2018 take 500 mg by mouth twice daily Magnesium Oxide Active 500 MG PO TWICE A DAY October 22, 2018 12:00am Start: 04-30-2015 take 1 tablet by malik once daily Magnesium Oxide 500 mg ORAL Tab Take 500 mg by mouth once daily. 0 04/30/2015 Active Comment on above: Take 500 mg by mouth once daily. [place]-3 Fatty Acids-Fish Oil (12 sources) Start: 10-22-2018 [place]-3 Fatty Acids-Fish Oil Active 1 EACH PO DAILY October 22, 2018 1:15pm Start: 10-22-2018 End: 08-29-2022 [place]-3 Fatty Acids-Fish Oil Discontinued 1 EACH PO DAILY October 22, 2018 12:00am August 29, 2022 10:45am Start: 10-22-2018 End: 08-29-2022 [place]-3 Fatty Acids-Fish Oil Discontinued 1 EACH PO DAILY October 21, 2018 11:00pm August 29, 2022 9:45am Start: 10-22-2018 [place]-3 Fatty Acids-Fish Oil Active 1 EACH PO DAILY October 21, 2018 11:00pm Start: 10-22-2018 [place]-3 Fatty Acids-Fish Oil Active 1 EACH PO DAILY October 22, 2018 12:00am pregabalin 75 mg oral capsule (15 sources) Start: 08-29-2022 take 75 mg by mouth three times daily Pregabalin Active 75 MG PO THREE TIMES A DAY August 29, 2022 1:00am Start: 08-09-2021 End: 08-09-2022 take 75 mg by mouth three times daily Pregabalin Active 75 MG PO THREE TIMES A DAY August 29, 2022 1:00am Comment on above: Take 1 capsule by mo [facility] three times daily. Turmeric Root Extract (7 sources) Start: 08-29-2022 take 500 mg by mouth once daily Turmeric Root Extract Active 500 MG PO DAILY August 29, 2022 1:00am Start: 08-29-2022 take 500 mg by mouth once cristhian y Turmeric Root Extract Active 500 MG PO DAILY August 29, 2022 12:00am Completed/Discontinued Medications Medication Drug Class(es) Dates Sig (Normalized) Sig (Original) aspirin 81 mg delayed release oral tablet (20 sources) Platelet Aggregation Inhibitor, Nonsteroidal Anti-inflammatory Drug Start: 10-22-2018 End: 08-29-2022 take 1 tablet by mouth once daily aspirin, enteric coated (ASPIRIN, ENTERIC COATED) 81 mg EC tablet Take 1 tablet by mouth once daily. 90 tablet 0 03/15/2020 Active Comment on above: Take 1 tablet by malik th once daily. betamethasone 0.5 mg/ml / clotrimazole 10 mg/ml topical cream (2 sources) Azole Antifungal, Corticosteroid Start: 11-12-2023 clotrimazole-beta methasone (LOTRISONE) cream 1 APPLICATION 2 TIMES DAILY DIRECTED 0 11/12/2023 Active Comment on above: 1 APPLICATION 2 TIME S DAILY DIRECTED 24 hr buPROPion hydrochloride 300 mg extended release oral tablet (20 sources) Aminoketone Start: 09-15-2022 End: 12-14-2022 take 1 tablet by mouth once daily buPROPion XL (WELLBUTRIN XL) 300 mg 24 hr tablet take 1 tablet by mouth once daily 90 tablet 1 09/15/2022 Active Start: 08-29-2022 take 300 mg by mouth twice daily Bupropion Hcl Active 300 MG PO TWICE A DAY August 29, 2022 10:44am Start: 05-16-2021 End: 06-13-2022 take 1 tablet by mouth once daily buPROPion XL (WELLBUTRIN XL) 300 mg 24 hr tablet Take 1 tablet by mouth once daily. 90 tablet 1 03/15/2022 06/13/2022 Active Start: 10-22-2018 End: 08-29-2022 take 150 mg by mouth twice daily Bupropion Hcl Discontinued 150 MG PO TWICE A DAY October 22, 2018 12:00am August 29, 2022 10:49am Comment on above: Take 1 tablet by malik th once daily. take 1 tablet by malik th once daily calcium citrate 1500 mg / cholecalciferol 200 unt oral tablet (8 sources) Vitamin D Start: 2009 calcium citrate/vitamin d3(CALCIUM CITRATE + 315 MG-200 UNIT TAB) one tab once a day 0 01/19/2010 Active Comment on above: one tab once a day CPAP (8 sources) Start: 2017 CPAP Indications: ZAIRA (obstructive sleep apnea) AutoPAP 5-10 cmH2O with heated humidity and close clinical follow up with data download after several weeks to ensure that pressures are appropriate. Mask (per patient preference) optional chin strap (if indicated) , filters, tubing, humidifier and lifetime supplies. (A standard size ResMed AirFit N10 nasal mask without chin strap was used for study). 1 Device 0 03/25/2018 Active Comment on above: AutoPAP 5-10 cmH2O w ith heated humidity and close clinical follow up with data download after several weeks to ensure that pressures are appropriate. Mask (per patient preference) optional chin strap (if indicated) , filters, tubing, humidifier and lifetime supplies. (A standard size ResMed AirFit N10 nasal mask without chin strap was used for study). cyclobenzaprine hydrochloride 5 mg oral tablet (8 sources) Muscle Relaxant Start: 2017 take 1 tablet by mouth twice daily as needed cyclobenzaprine (FLEXERIL) 5 mg tablet Indications: Neck pain , Chronic left shoulder pain Take 1 tablet by mouth twice daily as needed. 40 tablet 0 11/16/2017 Active Comment on above: Take 1 tablet by [facility] twice daily as needed. diclofenac sodium 0.01 mg/mg topical gel (8 sources) Nonsteroidal Anti-inflammatory Drug Start: 2017 apply 2 g topically four times daily diclofenac sodium (VOLTAREN) 1 % topical gel Indications: Neck pain , Chronic left shoulder pain Apply 2 g to affected area four times daily. 100 g 1 07/08/2018 Active Comment on above: Apply 2 g to affecte d area four times daily. diphenhydrAMINE hydrochloride 25 mg oral tablet (12 sources) Histamine-1 Receptor Antagonist Start: 2018 End: 2022 take 25 mg by mouth once daily Diphenhydramine Hcl Discontinued 25 MG PO DAILY October 22, 2018 12:00am August 29, 2022 10:47am DULoxetine 30 mg delayed release oral capsule (18 sources) Serotonin and Norepinephrine Reuptake Inhibitor Start: 2020 End: 2022 take 1 capsule by mouth once daily DULoxetine (CYMBALTA) 30 mg capsule Take 1 capsule by mouth once daily. 90 capsule 1 10/12/2022 Active Comment on above: take 1 capsule by [facility] once daily Take 1 capsule by [facility] once daily. escitalopram 10 mg oral tablet (12 sources) Serotonin Reuptake Inhibitor Start: 2018 End: 2022 take 10 mg by mouth once daily Escitalopram Oxalate Discontinued 10 MG PO DAILY October 22, 2018 12:00am August 29, 2022 10:47am gabapentin 300 mg oral capsule (12 sources) Anti-epileptic Agent Start: 2018 End: 2022 take 300 mg by mouth three times daily at mealtime Gabapentin Discontinued 300 MG PO 3 TIMES DAILY WITH MEALS October 22, 2018 12:00am August 29, 2022 10:47am glipiZIDE 5 mg oral tablet (20 sources) Sulfonylurea Start: 2019 take 1 tablet by mouth once daily glipiZIDE (GLUCOTROL) 5 mg tablet Indications: Type 2 diabetes mellitus without complication, without long-term current use of insulin (HCC) Take 1 tablet by mouth once daily. 90 tablet 3 09/29/2019 Active Start: 10-22-2018 End: 08-29-2022 take 5 mg by mouth once daily Glipizide Discontinued 5 MG PO DAILY October 22, 2018 12:00am August 29, 2022 10:47am Comment on above: Take 1 tablet by malik th once daily. hydrOXYzine hydrochloride 50 mg oral tablet (2 sources) Antihistamine Start: 10-16-19 24 take 1 tablet by mouth every six hours hydrOXYzine HCl (ATARAX) 50 mg tablet Take 50 mg by mouth. 1 tab every 6 hours 0 10/16/2023 Active Comment on above: Take 50 mg by mouth. 1 tab every 6 hours levothyroxine sodium 0.088 mg oral tablet (20 sources) l-Thyroxine Start: 10-17-19 23 levothyroxine (SYNTHROID) 88 mcg tablet Start: 08-29-2022 take 75 ug by mouth once daily Levothyroxine Active 75 MCG PO DAILY August 29, 2022 10:46am Start: 03-24-2019 take 1 tablet by malik th once daily levothyroxine (SYNTHROID) 75 mcg tablet Indications: Acquired hypothyroidism Take 1 tablet by mouth once daily. 90 tablet 3 03/24/2019 Active Start: 10-22-2018 End: 08-29-2022 take 50 ug by mouth once daily Levothyroxine Discontin ued 50 MCG PO DAILY October 22, 2018 12:00am August 29, 2022 10:49am Comment on above: Take 1 tablet by malik th once daily. lisinopril 5 mg oral tablet (20 sources) Angiotensin Converting Enzyme Inhibitor Start: 9 take 1 tablet by mouth once daily lisinopril (ZESTRIL, PRINIVIL) 5 mg tablet Take 1 tablet by mouth once daily. 90 tablet 3 03/24/2019 Active Comment on above: Take 1 tablet by malik th once daily. meloxicam 15 mg oral tablet (20 sources) Nonsteroidal Anti-inflammatory Drug Start: 9 End: 3 take 15 mg by mouth once daily Meloxicam Discontinued 15 MG PO DAILY October 22, 2018 12:00am August 29, 2022 10:46am take 1 tablet by mouth once cristhian y meloxicam (MOBIC) 7.5 mg tablet Take 7.5 mg by mouth once daily. 0 Active Comment on above: Take 7.5 mg by mouth once daily. metFORMIN hydrochloride 1000 mg oral tablet (20 sources) Biguanide Start: 10-23-19 take 1 tablet by mouth twice daily at mealtime metFORMIN (GLUCOPHAGE) 1,000 mg tablet Take 1 tablet by mouth twice daily with meals. 180 tablet 1 12/31/2019 Active Comment on above: Take 1 tablet by malik twice daily with meals. pantoprazole 40 mg delayed release oral tablet (20 sources) Proton Pump Inhibitor Start: 10-23-19 take 1 tablet by mouth once daily pantoprazole DR (PROTONIX) 40 mg tablet Indications: Heartburn Take 1 tablet by mouth once daily. 90 tablet 2 05/04/2020 Active Comment on above: Take 1 tablet by malik once daily. potassium gluconate 2.5 meq oral tablet (20 sources) Start: 07-13-20 End: 08-29-19 23 take 99 mg by mouth once daily Potassium Discontinued 99 MG PO DAILY October 22, 2018 12:00am August 29, 2022 10:46am Comment on above: Take one(1) tablet d aily. rosuvastatin 40 mg oral capsule (2 sources) HMG-CoA Reductase Inhibitor Start: 10-25-19 rosuvastatin 40 mg cpSP simvastatin 40 mg oral tablet (20 sources) HMG-CoA Reductase Inhibitor Start: 10-23-19 take 1 tablet by mouth once daily simvastatin (ZOCOR) 40 mg tablet Indications: Mixed hyperlipidemia Take 1 tablet by mouth once daily. 90 tablet 0 03/15/2020 Active Comment on above: Take 1 tablet by malik once daily. Problems Active Problems Problem Classification Problem Date Documented Date Episodic/Chronic Anxiety disorders (8 sources) Anxiety; Translations: [Anxiety disorder, unspecified] Onset: 06-11-2024 08-29-2022 Chronic Diabetes mellitus with complications (2 sources) Disorder of nervous system due to type 2 diabetes mellitus; Translations: [Type 2 diabetes mellitus with other diabetic neurological complication] Onset: 10-20-2024 11-16-2023 Chronic Diabetes mellitus without complication (15 sources) Type 2 diabetes mellitus; Translations: [Type 2 diabetes mellitus without complications] Onset: 07-07-2015 07-07-2015 Chronic Disorders of lipid metabolism (8 sources) Mixed hyperlipidemia; Translations: [Mixed hyperlipidemia] 04-14-2011 Chronic Esophageal disorders (8 sources) Gastroesophageal reflux disease; Translations: [Gastro-esophageal reflux disease without esophagitis] 08-14-2017 Chronic Essential hypertension (16 sources) Benign essential hypertension; Translations: [Essential (primary) hypertension] Onset: 06-08-2024 04-14-2011 Chronic Malaise and fatigue (1 source) Other fatigue; Translations: [Other fatigue] Onset: 03-15-2018 Episodic Mood disorders (17 sources) Recurrent major depression in partial remission; Translations: [Major depressive disorder, recurrent, in partial remission] Onset: 09-07-2014 Chronic Mood disorders (1 source) Mood disorders; Translations: [Depression, unspecified] Onset: 06-11-2024 Nonmalignant breast conditions (9 sources) Cyst of breast; Translations: [Solitary cyst of left breast] 08-29-2022 Episodic Nutritional deficiencies (8 sources) Vitamin D deficiency; Translations: [Vitamin D deficiency, unspecified] 04-14-2011 Chronic Osteoarthritis (11 sources) Osteoarthritis of knee; Translations: [Unilateral primary osteoarthritis, unspecified knee] Onset: 11-16-2023 08-08-2021 Chronic Other and ill-defined heart disease (8 sources) Diastolic dysfunction; Translations: [Other ill-defined heart diseases] 08-08-2021 Chronic Other bone disease and musculoskeletal deformities (20 sources) Segmental and somatic dysfunction; Translations: [Segmental and somatic dysfunction of cervical region] 05-24-2020 Episodic Other connective tissue disease (12 sources) History of lumbar fusion; Translations: [Arthrodesis status] 05-24-2020 Episodic Other connective tissue disease (1 source) Pain in both feet; Translations: [Pain in right foot] 10-24-2022 Episodic Other lower respiratory disease (1 source) Snoring; Translations: [Snoring] Onset: 03-15-2018 Episodic Other nervous system disorders (8 sources) Peripheral nerve disease ; Translations: [Polyneuropathy, unspecified] Onset: 08-16-2011 08-16-2011 Chronic Other nervous system disorders (1 source) Encephalopathy, unspecified; Translations: [Encephalopathy, unspecified] Onset: 01-15-2025 Chronic Other nervous system disorders (1 source) Metabolic encephalopathy; Translations: [Metabolic encephalopathy] Onset: 01-10-2025 Chronic Other nervous system disorders (1 source) Personal history of other diseases of the nervous system and sense organs; Translations: [Personal history of other diseases of the nervous system and sense organs] Onset: 03-15-2018 Episodic Other non-traumatic joint disorders (1 source) Pain in left shoulder; Translations: [Pain in left shoulder] Onset: 12-15-2024 Episodic Residual codes; unclassified (8 sources) Obstructive sleep apnea syndrome; Translations: [Obstructive sleep apnea (adult) (pediatric)] Onset: 03-25-2018 03-25-2018 Chronic Residual codes; unclassified (7 sources) Sleep apnea; Translations: [Sleep apnea, unspecified] 08-29-2022 Chronic Spondylosis; intervertebral disc disorders; other back problems (20 sources) Degeneration of cervical intervertebral disc; Translations: [Other cervical disc degeneration, unspecified cervical region] Onset: 10-19-2024 08-08-2021 Chronic Spondylosis; intervertebral disc disorders; other back problems (20 sources) Neck pain; Translations: [Cervicalgia] Onset: 04-14-2020 04-14-2020 Episodic Thyroid disorders (8 sources) Hypothyroidism; Translations: [Hypothyroidism, unspecified] 06-02-2014 Chronic Unclassified (1 source) Low back pain, unspecified; Translations: [Low back pain, unspecified] Onset: 12-23-2024 Urinary tract infections (10 sources) Recurrent urinary tract infection; Translations: [Urinary tract infection, site not specified] Onset: 04-11-2010 04-14-2011 Episodic Past or Other Problems Problem Classification Problem Date Documented Da te Episodic/Chronic Conditions associated with dizziness or vertigo (1 source) Dizziness and giddiness; Translations: [Dizziness and giddiness] Onset: 10-20-2024 Episodic Headache; including migraine (16 sources) Chronic daily headache; Translations: [Chronic daily headache] Onset: 04-14-2020 04-14-2020 Episodic Other circulatory disease (2 sources) Orthostatic hypotension; Translations: [Orthostatic hypotension] Onset: 10-20-2024 Episodic Other connective tissue disease (8 sources) Enthesopathy; Translations: [Enthesopathy, unspecified] Onset: 07-13-2008 04-14-2011 Episodic Other gastrointestinal disorders (8 sources) History of bariatric surgical procedure; Translations: [Bariatric surgery status] Onset: 07-07-2015 08-08-2021 Episodic Other injuries and conditions due to external causes (1 source) Encounter for examination and observation following other accident; Translations: [Encounter for examination and observation following other accident] Onset: 11-19-2024 Episodic Other nervous system disorders (1 source) Unspecified abnormalities of gait and mobility; Translations: [Unspecified abnormalities of gait and mobility] Onset: 10-20-2024 Episodic Other screening for suspected conditions (not mental disorders or infectious disease) (1 source) Encounter for screening mammogram for malignant neoplasm of breast; Translations: [Encounter for screening mammogram for malignant neoplasm of breast] Onset: 09-24-2024 Episodic Other skin disorders (1 source) Foot callus; Translations: [Corns and callosities] 11-16-2023 Episodic Thyroid disorders (8 sources) Disorder of thyroid gland; Translations: [Disorder of thyroid, unspecified] Onset: 10-20-2024 08-29-2022 Episodic Results Test Name Value Interpretation Reference Range Facility MR/BMS.BPon 02-20-2025 MR/BMS.BP Normal [facility] Culture, Blood (WB)on 2024 CUB SET Blood cultures x2, from two different sites No growth in 5 days. Normal [facility] Comment on above: Performed By: #### M 200.1000 ####[facility] [id number] [place], [address] Basic Metabolic Profile (BMP )on 01-11-2025 BUN Normal 4-19 [facility] Comment on above: Result Comment: Canc elled via OM: Order cancelled - Patient discharged Performed By: #### L 100.0100, L500.2500 ####[facility] [id number] [place], [address] BUN/CRE Normal 10-20 [facility] Comment on above: Result Comment: Canc elled via OM: Order cancelled - Patient discharged Performed By: #### L 100.0100, L500.2500 ####[facility] [id number] [place], [address] Calcium Normal 7.6-11.0 [facility] Comment on above: Result Comment: Canc elled via OM: Order cancelled - Patient discharged Performed By: #### L 100.0100, L500.2500 ####[facility] [id number] [place], [address] CL Normal 98-108 [facility] Comment on above: Result Comment: Canc elled via OM: Order cancelled - Patient discharged Performed By: #### L 100.0100, L500.2500 ####[facility] [address] [place], [address] CO2 Normal 21.0-32.0 [facility] Comment on above: Result Comment: Canc elled via OM: Order cancelled - Patient discharged Performed By: #### L 100.0100, L500.2500 ####[facility] [address] [place], [address] CREAT,SERUM Normal 0.70-1.20 [facility] Comment on above: Result Comment: Canc elled via OM: Order cancelled - Patient discharged Performed By: #### L 100.0100, L500.2500 ####[facility] [address] [place], [address] eGFR Normal >60 [facility] Comment on above: Result Comment: Canc elled via OM: Order cancelled - Patient discharged Performed By: #### L 100.0100, L500.2500 ####[facility] [address] [place], [address] GAP Normal 5-15 [facility] Comment on above: Result Comment: Canc elled via OM: Order cancelled - Patient discharged Performed By: #### L 100.0100, L500.2500 ####[facility] [address] [place], [address] GLU Normal 70-99 [facility] Comment on above: Result Comment: Canc elled via OM: Order cancelled - Patient discharged Performed By: #### L 100.0100, L500.2500 ####[facility] [address] [place], [address] Potassium Normal 3.3-5.1 [facility] Comment on above: Result Comment: Canc elled via OM: Order cancelled - Patient discharged Performed By: #### L 100.0100, L500.2500 ####[facility] [address] [place], [address] Basic Metabolic Profile (BMP) Normal 133-145 [facility] Comment on above: Result Comment: Canc elled via OM: Order cancelled - Patient discharged Performed By: #### L 100.0100, L500.2500 ####[facility] [address] [place], [address] CBC W/Diff, Automatedon 06-0 -2024 Absolute Neut Normal 2.0-7.7 [facility] Comment on above: Result Comment: Canc elled via OM: Order cancelled - Patient discharged Performed By: #### L 100.0100, L500.2500 ####[facility] [address] [place], [address] HCT Normal 37-47 [facility] Comment on above: Result Comment: Canc elled via OM: Order cancelled - Patient discharged Performed By: #### L 100.0100, L500.2500 ####[facility] [address] [place], [address] HGB Normal 12.0-15.0 [facility] Comment on above: Result Comment: Canc elled via OM: Order cancelled - Patient discharged Performed By: #### L 100.0100, L500.2500 ####[facility] [address] [place], [address] MCH Normal 27.0-32.0 [facility] Comment on above: Result Comment: Canc elled via OM: Order cancelled - Patient discharged Performed By: #### L 100.0100, L500.2500 ####[facility] [address] [place], [address] MCHC Normal 32-36 [facility] Comment on above: Result Comment: Canc elled via OM: Order cancelled - Patient discharged Performed By: #### L 100.0100, L500.2500 ####[facility] [address] [place], [address] MCV Normal 81-99 [facility] Comment on above: Result Comment: Canc elled via OM: Order cancelled - Patient discharged Performed By: #### L 100.0100, L500.2500 ####[facility] [address] [place], [address] NEUT% Normal 47-70 [facility] Comment on above: Result Comment: Canc elled via OM: Order cancelled - Patient discharged Performed By: #### L 100.0100, L500.2500 ####[facility] [address] [place], [address] PLT Normal 150-450 [facility] Comment on above: Result Comment: Canc elled via OM: Order cancelled - Patient discharged Performed By: #### L 100.0100, L500.2500 ####[facility] [address] [place], [address] RBC Normal 4.2-5.4 [facility] Comment on above: Result Comment: Canc elled via OM: Order cancelled - Patient discharged Performed By: #### L 100.0100, L500.2500 ####[facility] [address] [place], [address] RDW CV Normal 11.6-14.6 [facility] Comment on above: Result Comment: Canc elled via OM: Order cancelled - Patient discharged Performed By: #### L 100.0100, L500.2500 ####[facility] [address] [place], [address] RDW SD Normal 35.1-43.9 [facility] Comment on above: Result Comment: Canc elled via OM: Order cancelled - Patient discharged Performed By: #### L 100.0100, L500.2500 ####[facility] [address] [place], [address] WBC Normal 4.4-11.0 [facility] Comment on above: Result Comment: Canc elled via OM: Order cancelled - Patient discharged Performed By: #### L 100.0100, L500.2500 ####[facility] [address] [place], [address] Basic Metabolic Profile (BMP )on 01-10-2025 BUN/CRE 14.9 RATIO Normal 10-20 [facility] Comment on above: Performed By: #### L 100.0100, L500.2500 ####[facility] [address] [place], [address] Calcium [Mass/Vol] 9.3 mg/dL Normal 7.6-11.0 [facility] Comment on above: Performed By: #### L 100.0100, L500.2500 ####[facility] [address] [place], [address] Chloride [Moles/Vol] 104 mmol/L Normal 98-108 [facility] Comment on above: Performed By: #### L 100.0100, L500.2500 ####[facility] [address] [place], [address] CO2 [Moles/Vol] 25.6 mmol/L Normal 21.0-32.0 [facility] Comment on above: Performed By: #### L 100.0100, L500.2500 ####[facility] [address] [place], [address] Creatinine [Mass/Vol] 0.88 mg/dL Normal 0.70-1.20 [facility] Comment on above: Performed By: #### L 100.0100, L500.2500 ####[facility] [address] [place], [address] ECRCL 60.74 ml/min Normal 50-250 [facility] Comment on above: Performed By: #### L 100.0100, L500.2500 ####[facility] [address] [place], [address] GAP 12 Normal 5-15 [facility] Comment on above: Performed By: #### L 100.0100, L500.2500 ####[facility] [address] [place], [address] GFR/1.73 sq M.predicted among non-blacks MDRD (S/P/Bld) [Vol rate/Area] 68 mL/min/{1.73_m2} Normal >60 [facility] Comment on above: Result Comment: mL/m in/1.73m2 CKD-EPI Creatinine Equation (2020) Performed By: #### L 100.0100, L500.2500 ####[facility] [address] [place], [address] Glucose [Mass/Vol] 150 mg/dL High 70-99 [facility] Comment on above: Performed By: #### L 100.0100, L500.2500 ####[facility] [address] [place], [address] Potassium [Moles/Vol] 4.1 mmol/L Normal 3.3-5.1 [facility] Comment on above: Performed By: #### L 100.0100, L500.2500 ####[facility] [address] [place], [address] Sodium [Moles/Vol] 142 mmol/L Normal 133-145 [facility] Comment on above: Performed By: #### L 100.0100, L500.2500 ####[facility] [address] [place], [address] Urea nitrogen [Mass/Vol] 13 mg/dL Normal 4-19 [facility] Comment on above: Performed By: #### L 100.0100, L500.2500 ####[facility] [address] [place], [address] Bedside Glucoseon 01-10-2025 FINGERSTICK GLU 170 mg/dL High 74-106 [facility] Comment on above: Result Comment: GILDA CLINE OF PATIENT CARE PER NURSING PROTOCOL Performed By: #### L 501.080 ####[facility] [address] [place], [address] CBC W/Diff, Automatedon 12-13 Absolute Lymph 2.24 X10 3/uL Normal 0.83-4.51 [facility] Comment on above: Performed By: #### L 100.0100, L500.2500 ####[facility] [address] [place], [address] Absolute Neut 4.1 X10 3/uL Normal 2.0-7.7 [facility] Comment on above: Performed By: #### L 100.0100, L500.2500 ####[facility] [address] [place], [address] Basophils/100 WBC (Bld) 0.5 % Normal 0-1 [facility] Comment on above: Performed By: #### L 100.0100, L500.2500 ####[facility] [address] [place], [address] Eosinophils/100 WBC (Bld) 4.5 % Normal 0-5 [facility] Comment on above: Performed By: #### L 100.0100, L500.2500 ####[facility] [address] [place], [address] Erythrocyte distribution width (RBC) [Ratio] 15.1 % High 11.6-14.6 [facility] Comment on above: Performed By: #### L 100.0100, L500.2500 ####[facility] [address] [place], [address] Hematocrit (Bld) [Volume fraction] 36.7 % Low 37-47 [facility] Comment on above: Performed By: #### L 100.0100, L500.2500 ####[facility] [address] [place], [address] Hemoglobin (Bld) [Mass/Vol] 11.9 g/dL Low 12.0-15.0 [facility] Comment on above: Performed By: #### L 100.0100, L500.2500 ####[facility] [address] [place], [address] IG% 0.400 Normal 0.0-0.9 [facility] Comment on above: Result Comment: IG% - Immature Granulocytes (promyelocytes, myelocytes andmetamyelocytes) > 1% indicates that a LEFT SHIFT is Present. Performed By: #### L 100.0100, L500.2500 ####[facility] [address] [place], [address] Lymphocytes/100 WBC (Bld) 30.8 % Normal 19-41 [facility] Comment on above: Performed By: #### L 100.0100, L500.2500 ####[facility] [address] [place], [address] MCH (RBC) [Entitic mass] 27.7 pg Normal 27.0-32.0 [facility] Comment on above: Performed By: #### L 100.0100, L500.2500 ####[facility] [address] [place], [address] MCHC (RBC) [Mass/Vol] 32.4 g/dL Normal 32-36 [facility] Comment on above: Performed By: #### L 100.0100, L500.2500 ####[facility] [address] [place], [address] MCV (RBC) [Entitic vol] 85.5 fL Normal 81-99 [facility] Comment on above: Performed By: #### L 100.0100, L500.2500 ####[facility] [address] [place], [address] Monocytes/100 WBC (Bld) 7.3 % Normal 0-10 [facility] Comment on above: Performed By: #### L 100.0100, L500.2500 ####[facility] [address] [place], [address] Neutrophils/100 WBC (Bld) 56.5 % Normal 47-70 [facility] Comment on above: Performed By: #### L 100.0100, L500.2500 ####[facility] [address] [place], [address] Nucleated RBC (Bld) [#/Vol] 0 10*3/uL Normal 0-5 [facility] Comment on above: Performed By: #### L 100.0100, L500.2500 ####[facility] [address] [place], [address] Platelet mean volume (Bld) [Entitic vol] 10.0 fL Normal 6.2-12.0 [facility] Comment on above: Performed By: #### L 100.0100, L500.2500 ####[facility] [address] [place], [address] Platelets (Bld) [#/Vol] 291 10*3/uL Normal 150-450 [facility] Comment on above: Performed By: #### L 100.0100, L500.2500 ####[facility] [address] [place], [address] RBC (Bld) [#/Vol] 4.29 10*6/uL Normal 4.2-5.4 [facility] Comment on above: Performed By: #### L 100.0100, L500.2500 ####[facility] [address] [place], [address] RDW SD 47.4 fl High 35.1-43.9 [facility] Comment on above: Performed By: #### L 100.0100, L500.2500 ####[facility] [address] [place], [address] WBC (Bld) [#/Vol] 7.3 10*3/uL Normal 4.4-11.0 [facility] Comment on above: Performed By: #### L 100.0100, L500.2500 ####[facility] [address] [place], [address] Basic Metabolic Profile (BMP )on 01-09-2025 BUN/CRE 16.7 RATIO Normal 10-20 [facility] Comment on above: Performed By: #### L 500.2500, L100.0100, L501.5200, L501.2300 ####[facility] [address] [place], [address] Calcium [Mass/Vol] 9.0 mg/dL Normal 7.6-11.0 [facility] Comment on above: Performed By: #### L 500.2500, L100.0100, L501.5200, L501.2300 ####[facility] [address] [place], [address] Chloride [Moles/Vol] 103 mmol/L Normal 98-108 [facility] Comment on above: Performed By: #### L 500.2500, L100.0100, L501.5200, L501.2300 ####[facility] [address] [place], [address] CO2 [Moles/Vol] 24.3 mmol/L Normal 21.0-32.0 [facility] Comment on above: Performed By: #### L 500.2500, L100.0100, L501.5200, L501.2300 ####[facility] [address] [place], [address] Creatinine [Mass/Vol] 0.88 mg/dL Normal 0.70-1.20 [facility] Comment on above: Performed By: #### L 500.2500, L100.0100, L501.5200, L501.2300 ####[facility] [address] [place], [address] ECRCL 60.74 ml/min Normal 50-250 [facility] Comment on above: Performed By: #### L 500.2500, L100.0100, L501.5200, L501.2300 ####[facility] [address] [place], [address] GAP 10 Normal 5-15 [facility] Comment on above: Performed By: #### L 500.2500, L100.0100, L501.5200, L501.2300 ####[facility] [address] [place], [address] GFR/1.73 sq M.predicted among non-blacks MDRD (S/P/Bld) [Vol rate/Area] 67 mL/min/{1.73_m2} Normal >60 [facility] Comment on above: Result Comment: mL/m in/1.73m2 CKD-EPI Creatinine Equation (2020) Performed By: #### L 500.2500, L100.0100, L501.5200, L501.2300 ####[facility] [address] [place], [address] Glucose [Mass/Vol] 151 mg/dL High 70-99 [facility] Comment on above: Performed By: #### L 500.2500, L100.0100, L501.5200, L501.2300 ####[facility] [address] [place], [address] Potassium [Moles/Vol] 3.8 mmol/L Normal 3.3-5.1 [facility] Comment on above: Performed By: #### L 500.2500, L100.0100, L501.5200, L501.2300 ####[facility] [address] [place], [address] Sodium [Moles/Vol] 137 mmol/L Normal 133-145 [facility] Comment on above: Performed By: #### L 500.2500, L100.0100, L501.5200, L501.2300 ####[facility] [address] [place], [address] Urea nitrogen [Mass/Vol] 15 mg/dL Normal 4-19 [facility] Comment on above: Performed By: #### L 500.2500, L100.0100, L501.5200, L501.2300 ####[facility] [address] [place], [address] Bedside Glucoseon 01-09-2025 FINGERSTICK GLU 185 mg/dL High 74-106 [facility] Comment on above: Result Comment: GILDA GEMENT OF PATIENT CARE PER NURSING PROTOCOL Performed By: #### L 501.080 ####[facility] [address] [place], [address] FINGERSTICK GLU 174 mg/dL High [facility]106 [facility] Comment on above: Result Comment: GILDA GEMENT OF PATIENT CARE PER NURSING PROTOCOL Performed By: #### L 501.080 ####[facility] [address] [place], [address] FINGERSTICK GLU 249 mg/dL High [facility]106 [facility] Comment on above: Result Comment: GILDA GEMENT OF PATIENT CARE PER NURSING PROTOCOL Performed By: #### L 501.080 ####[facility] [address] [place], [address] FINGERSTICK GLU 179 mg/dL High -[address] [place] [address] Comment on above: Result Comment: GILDA GEMENT OF PATIENT CARE PER NURSING PROTOCOL Performed By: #### L 501.080 ####[facility] [address] [place], [address] FINGERSTICK GLU 224 mg/dL [address] Comment on above: Result Comment: GILDA GEMENT OF PATIENT CARE PER NURSING PROTOCOL Performed By: #### L 501.080 ####[facility] [address] [place], [address] CBC W/Diff, Automatedon 05-3 0-2024 Absolute Lymph 1.78 X10 3/uL Normal 0.83-4.51 [facility] Comment on above: Performed By: #### L 500.2500, L100.0100, L501.5200, L501.2300 ####[facility] [address] [place], [address] Absolute Neut 4.9 X10 3/uL Normal 2.0-7.7 [facility] Comment on above: Performed By: #### L 500.2500, L100.0100, L501.5200, L501.2300 ####[facility] [address] [place], [address] Basophils/100 WBC (Bld) 0.3 % Normal 0-1 [facility] Comment on above: Performed By: #### L 500.2500, L100.0100, L501.5200, L501.2300 ####[facility] [address] [place], [address] Eosinophils/100 WBC (Bld) 3.2 % Normal 0-5 [facility] Comment on above: Performed By: #### L 500.2500, L100.0100, L501.5200, L501.2300 ####[facility] [address] [place], [address] Erythrocyte distribution width (RBC) [Ratio] 15.1 % High 11.6-14.6 [facility] Comment on above: Performed By: #### L 500.2500, L100.0100, L501.5200, L501.2300 ####[facility] [address] [place], [address] Hematocrit (Bld) [Volume fraction] 34.0 % Low 37-47 [facility] Comment on above: Performed By: #### L 500.2500, L100.0100, L501.5200, L501.2300 ####[facility] [address] [place], [address] Hemoglobin (Bld) [Mass/Vol] 11.4 g/dL Low 12.0-15.0 [facility] Comment on above: Performed By: #### L 500.2500, L100.0100, L501.5200, L501.2300 ####[facility] [address] [place], [address] IG% 0.600 Normal 0.0-0.9 [facility] Comment on above: Result Comment: IG% - Immature Granulocytes (promyelocytes, myelocytes andmetamyelocytes) > 1% indicates that a LEFT SHIFT is Present. Performed By: #### L 500.2500, L100.0100, L501.5200, L501.2300 ####[facility] [address] [place], [address] Lymphocytes/100 WBC (Bld) 22.8 % Normal 19-41 [facility] Comment on above: Performed By: #### L 500.2500, L100.0100, L501.5200, L501.2300 ####[facility] [address] [place], [address] MCH (RBC) [Entitic mass] 27.8 pg Normal 27.0-32.0 [facility] Comment on above: Performed By: #### L 500.2500, L100.0100, L501.5200, L501.2300 ####[facility] [address] [place], [address] MCHC (RBC) [Mass/Vol] 33.5 g/dL Normal 32-36 [facility] Comment on above: Performed By: #### L 500.2500, L100.0100, L501.5200, L501.2300 ####[facility] [address] [place], [address] MCV (RBC) [Entitic vol] 82.9 fL Normal 81-99 [facility] Comment on above: Performed By: #### L 500.2500, L100.0100, L501.5200, L501.2300 ####[facility] [address] [place], [address] Monocytes/100 WBC (Bld) 9.6 % Normal 0-10 [facility] Comment on above: Performed By: #### L 500.2500, L100.0100, L501.5200, L501.2300 ####[facility] [address] [place], [address] Neutrophils/100 WBC (Bld) 63.5 % Normal 47-70 [facility] Comment on above: Performed By: #### L 500.2500, L100.0100, L501.5200, L501.2300 ####[facility] [address] [place], [address] Nucleated RBC (Bld) [#/Vol] 0 10*3/uL Normal 0-5 [facility] Comment on above: Performed By: #### L 500.2500, L100.0100, L501.5200, L501.2300 ####[facility] [address] [place], [address] Platelet mean volume (Bld) [Entitic vol] 9.7 fL Normal 6.2-12.0 [facility] Comment on above: Performed By: #### L 500.2500, L100.0100, L501.5200, L501.2300 ####[facility] [address] [place], [address] Platelets (Bld) [#/Vol] 258 10*3/uL Normal 150-450 [facility] Comment on above: Performed By: #### L 500.2500, L100.0100, L501.5200, L501.2300 ####[facility] [address] [place], [address] RBC (Bld) [#/Vol] 4.10 10*6/uL Low 4.2-5.4 [facility] Comment on above: Performed By: #### L 500.2500, L100.0100, L501.5200, L501.2300 ####[facility] [address] [place], [address] RDW SD 46.0 fl High 35.1-43.9 [facility] Comment on above: Performed By: #### L 500.2500, L100.0100, L501.5200, L501.2300 ####[facility] [address] [place], [address] WBC (Bld) [#/Vol] 7.8 10*3/uL Normal 4.4-11.0 [facility] [facility] Comment on above: Performed By: #### L 500.2500, L100.0100, L501.5200, L501.2300 ####[facility] [address] [place], [address] Magnesiumon 01-09-2025 Magnesium [Mass/Vol] 1.8 mg/dL Normal 1.5-2.2 [facility] Comment on above: Performed By: #### L 500.2500, L100.0100, L501.5200, L501.2300 ####[facility] [address] [place], [address] Phosphoruson 01-09-2025 Phosphate [Mass/Vol] 4.6 mg/dL High 2.7-4.5 [facility] Comment on above: Performed By: #### L 500.2500, L100.0100, L501.5200, L501.2300 ####[facility] [address] [place], [address] Urine Cultureon 01-09-2025 URC Normal [facility] Comment on above: Performed By: #### M 100.2200 ####[facility] [address] [place], [address] Basic Metabolic Profile (BMP )on 01-08-2025 BUN/CRE 16.5 RATIO Normal 10-20 [facility] Comment on above: Order Comment: YVON DE JESUS,RN OKAY TO DO MORNING LABS EARLY Performed By: #### L 100.0100, L500.2500 ####[facility] [address] [place], [address] Calcium [Mass/Vol] 9.0 mg/dL Normal 7.6-11.0 [facility] Comment on above: Order Comment: PER Kinsey DE JESUS RN OKAY TO DO MORNING LABS EARLY Performed By: #### L 100.0100, L500.2500 ####[facility] [address] [place], [address] Chloride [Moles/Vol] 101 mmol/L Normal 98-108 [facility] Comment on above: Order Comment: PER Kinsey DE JESUS RN OKAY TO DO MORNING LABS EARLY Performed By: #### L 100.0100, L500.2500 ####[facility] [address] [place], [address] CO2 [Moles/Vol] 20.9 mmol/L Low 21.0-32.0 [facility] Comment on above: Order Comment: YVON DE JESUS RN OKAY TO DO MORNING LABS EARLY Performed By: #### L 100.0100, L500.2500 ####[facility] [address] [place], [address] Creatinine [Mass/Vol] 1.01 mg/dL Normal 0.70-1.20 [facility] Comment on above: Order Comment: YVON DE JESUS RN OKAY TO DO MORNING LABS EARLY Performed By: #### L 100.0100, L500.2500 ####[facility] [address] [place], [address] ECRCL 52.93 ml/min Normal 50-250 [facility] Comment on above: Order Comment: YVON DE JESUS RN OKAY TO DO MORNING LABS EARLY Performed By: #### L 100.0100, L500.2500 ####[facility] [address] [place], [address] GAP 13 Normal 5-15 [facility] Comment on above: Order Comment: PER Kinsey DE JESUS RN OKAY TO DO MORNING LABS EARLY Performed By: #### L 100.0100, L500.2500 ####[facility] [address] [place], [address] GFR/1.73 sq M.predicted among non-blacks MDRD (S/P/Bld) [Vol rate/Area] 57 mL/min/{1.73_m2} Low >60 [facility] Comment on above: Order Comment: PER Kinsey DE JESUS RN OKAY TO DO MORNING LABS EARLY Result Comment: mL/m in/1.73m2 CKD-EPI Creatinine Equation (2020) Performed By: #### L 100.0100, L500.2500 ####[facility] [address] [place], [address] Glucose [Mass/Vol] 255 mg/dL High 70-99 [facility] Comment on above: Order Comment: PER Kinsey DE JESUS RN OKAY TO DO MORNING LABS EARLY Performed By: #### L 100.0100, L500.2500 ####[facility] [address] [facility] [address] Potassium [Moles/Vol] 4.3 mmol/L Normal 3.3-5.1 [facility] Comment on above: Order Comment: PER Kinsey DE JESUS RN OKAY TO DO MORNING LABS EARLY Performed By: #### L 100.0100, L500.2500 ####[facility] [address] [place], [address] Sodium [Moles/Vol] 135 mmol/L Normal 133-145 [facility] Comment on above: Order Comment: PER Kinsey DE JESUS RN OKAY TO DO MORNING LABS EARLY Performed By: #### L 100.0100, L500.2500 ####[facility] [address] [facility] [address] Urea nitrogen [Mass/Vol] 17 mg/dL Normal 4-19 [facility] Comment on above: Order Comment: PER Kinsey DE JESUS RN OKAY TO DO MORNING LABS EARLY Performed By: #### L 100.0100, L500.2500 ####[facility] [address] [place], [address] Bedside Glucoseon 01-08-2025 FINGERSTICK GLU 147 mg/dL High 74-106 [facility] Comment on above: Result Comment: GILDA GEMENT OF PATIENT CARE PER NURSING PROTOCOL Performed By: #### L 501.080 ####[facility] [address] [place], [address] FINGERSTICK GLU 246 mg/dL High 74-106 [facility] Comment on above: Result Comment: GILDA GEMENT OF PATIENT CARE PER NURSING PROTOCOL Performed By: #### L 501.080 ####[facility] [address] [place], [address] FINGERSTICK GLU 200 mg/dL High 74-106 [facility] Comment on above: Result Comment: GILDA GEMENT OF PATIENT CARE PER NURSING PROTOCOL Performed By: #### L 501.080 ####[facility] [address] [place], [address] CBC W/Diff, Automatedon 12-12 Absolute Lymph 1.84 X10 3/uL Normal 0.83-4.51 [facility] Comment on above: Order Comment: PER Kinsey DE JESUS RN OKAY TO DO MORNING LABS EARLY Performed By: #### L 100.0100, L500.2500 ####[facility] [address] [place], [address] Absolute Neut 6.9 X10 3/uL Normal 2.0-7.7 [facility] Comment on above: Order Comment: PER Kinsey DE JESUS RN OKAY TO DO MORNING LABS EARLY Performed By: #### L 100.0100, L500.2500 ####[facility] [address] [place], [address] Basophils/100 WBC (Bld) 0.2 % Normal 0-1 [facility] Comment on above: Order Comment: PER Kinsey DE JESUS RN OKAY TO DO MORNING LABS EARLY Performed By: #### L 100.0100, L500.2500 ####[facility] [address] [place], [address] Eosinophils/100 WBC (Bld) 0.8 % Normal 0-5 [facility] Comment on above: Order Comment: PER Kinsey DE JESUS RN OKAY TO DO MORNING LABS EARLY Performed By: #### L 100.0100, L500.2500 ####[facility] [address] [place], [address] Erythrocyte distribution width (RBC) [Ratio] 15.0 % High 11.6-14.6 [facility] Comment on above: Order Comment: PER Kinsey DE JESUS RN OKAY TO DO MORNING LABS EARLY Performed By: #### L 100.0100, L500.2500 ####[facility] [address] [place], [address] Hematocrit (Bld) [Volume fraction] 36.4 % Low 37-47 [facility] Comment on above: Order Comment: PER Kinsey DE JESUS RN OKAY TO DO MORNING LABS EARLY Performed By: #### L 100.0100, L500.2500 ####[facility] [address] [place], [address] Hemoglobin (Bld) [Mass/Vol] 12.1 g/dL Normal 12.0-15.0 [facility] Comment on above: Order Comment: PER Kinsey DE JESUS RN OKAY TO DO MORNING LABS EARLY Performed By: #### L 100.0100, L500.2500 ####[facility] [address] [place], [address] IG% 0.600 Normal 0.0-0.9 [facility] Comment on above: Order Comment: PER Kinsey DE JESUS RN OKAY TO DO MORNING LABS EARLY Result Comment: IG% - Immature Granulocytes (promyelocytes, myelocytes andmetamyelocytes) > 1% indicates that a LEFT SHIFT is Present. Performed By: #### L 100.0100, L500.2500 ####[facility] [address] [place], [address] Lymphocytes/100 WBC (Bld) 19.0 % Normal 19-41 [facility] Comment on above: Order Comment: PER Kinsey DE JESUS RN OKAY TO DO MORNING LABS EARLY Performed By: #### L 100.0100, L500.2500 ####[facility] [address] [place], [address] MCH (RBC) [Entitic mass] 27.8 pg Normal 27.0-32.0 [facility] Comment on above: Order Comment: YVON DE JESUS RN OKAY TO DO MORNING LABS EARLY Performed By: #### L 100.0100, L500.2500 ####[facility] [address] [place], [address] MCHC (RBC) [Mass/Vol] 33.2 g/dL Normal 32-36 [facility] Comment on above: Order Comment: YVON DE JESUS RN OKAY TO DO MORNING LABS EARLY Performed By: #### L 100.0100, L500.2500 ####[facility] [address] [place], [address] MCV (RBC) [Entitic vol] 83.7 fL Normal 81-99 [facility] Comment on above: Order Comment: YVON DE JESUS RN OKAY TO DO MORNING LABS EARLY Performed By: #### L 100.0100, L500.2500 ####[facility] [address] [place], [address] Monocytes/100 WBC (Bld) 8.4 % Normal 0-10 [facility] Comment on above: Order Comment: YVON DE JESUS RN OKAY TO DO MORNING LABS EARLY Performed By: #### L 100.0100, L500.2500 ####[facility] [address] [place], [address] Neutrophils/100 WBC (Bld) 71.0 % High 47-70 [facility] Comment on above: Order Comment: PER Kinsey DE JESUS RN OKAY TO DO MORNING LABS EARLY Performed By: #### L 100.0100, L500.2500 ####[facility] [address] [place], [address] Nucleated RBC (Bld) [#/Vol] 0 10*3/uL Normal 0-5 [facility] Comment on above: Order Comment: PER Kinsey DE JESUS RN OKAY TO DO MORNING LABS EARLY Performed By: #### L 100.0100, L500.2500 ####[facility] [address] [place], [address] Platelet mean volume (Bld) [Entitic vol] 10.1 fL Normal 6.2-12.0 [facility] Comment on above: Order Comment: PER Kinsey DE JESUS RN OKAY TO DO MORNING LABS EARLY Performed By: #### L 100.0100, L500.2500 ####[facility] [address] [place], [address] Platelets (Bld) [#/Vol] 256 10*3/uL Normal 150-450 [facility] Comment on above: Order Comment: YVON DE JESUS RN OKAY TO DO MORNING LABS EARLY Performed By: #### L 100.0100, L500.2500 ####[facility] [address] [place], [address] RBC (Bld) [#/Vol] 4.35 10*6/uL Normal 4.2-5.4 [facility] Comment on above: Order Comment: PER Kinsey DE JESUS RN OKAY TO DO MORNING LABS EARLY Performed By: #### L 100.0100, L500.2500 ####[facility] [address] [place], [address] RDW SD 45.6 fl High 35.1-43.9 [facility] Comment on above: Order Comment: PER Kinsey DE JESUS RN OKAY TO DO MORNING LABS EARLY Performed By: #### L 100.0100, L500.2500 ####[facility] [address] [place], [address] WBC (Bld) [#/Vol] 9.7 10*3/uL Normal 4.4-11.0 [facility] Comment on above: Order Comment: PER Kinsey DE JESUS RN OKAY TO DO MORNING LABS EARLY Performed By: #### L 100.0100, L500.2500 ####[facility] [address] [place], [address] Lactic Acidon 01-08-2025 Lactate [Moles/Vol] 1.7 mmol/L Normal 0.0-2.0 [facility] Comment on above: Performed By: #### L 503.6005 ####[facility] [address] [place], [address] 12 Lead EKGon 01-07-2025 12 Lead EKG Normal [facility] Alcohol, Blood (Medical)-Ser umon 01-07-2025 SERUM ETOH < 10.1 Normal <=10.0 [facility] Comment on above: Result Comment: This test is for medical purposes only. The legaldefinition of intoxication varies according to local law. Performed By: #### L 501.2450, L500.3400, L500.2500, L505.5000, L300.4310, L300.3900, L501.9100, L100.0100 ####[facility] [address] [place], [address] Basic Metabolic Profile (BMP )on 01-07-2025 BUN/CRE 13.4 RATIO Normal 10-20 [facility] Comment on above: Performed By: #### L 501.2450, L500.3400, L500.2500, L505.5000, L300.4310, L300.3900, L501.9100, L100.0100 ####[facility] [address] [place], [address] Calcium [Mass/Vol] 9.5 mg/dL Normal 7.6-11.0 [facility] Comment on above: Performed By: #### L 501.2450, L500.3400, L500.2500, L505.5000, L300.4310, L300.3900, L501.9100, L100.0100 ####[facility] [address] [place], [address] Chloride [Moles/Vol] 97 mmol/L Low 98-108 [facility] Comment on above: Performed By: #### L 501.2450, L500.3400, L500.2500, L505.5000, L300.4310, L300.3900, L501.9100, L100.0100 ####[facility] [address] [place], [address] CO2 [Moles/Vol] 20.5 mmol/L Low 21.0-32.0 [facility] Comment on above: Performed By: #### L 501.2450, L500.3400, L500.2500, L505.5000, L300.4310, L300.3900, L501.9100, L100.0100 ####[facility] [address] [place], [address] Creatinine [Mass/Vol] 1.12 mg/dL Normal 0.70-1.20 [facility] Comment on above: Performed By: #### L 501.2450, L500.3400, L500.2500, L505.5000, L300.4310, L300.3900, L501.9100, L100.0100 ####[facility] [address] [place], [address] ECRCL 47.33 ml/min Low 50-250 [facility] Comment on above: Performed By: #### L 501.2450, L500.3400, L500.2500, L505.5000, L300.4310, L300.3900, L501.9100, L100.0100 ####[facility] [address] [place], [place], [address] GAP 19 High 5-15 [facility] Comment on above: Performed By: #### L 501.2450, L500.3400, L500.2500, L505.5000, L300.4310, L300.3900, L501.9100, L100.0100 ####[facility] [address] [place], [place], [address] GFR/1.73 sq M.predicted among non-blacks MDRD (S/P/Bld) [Vol rate/Area] 50 mL/min/{1.73_m2} Low >60 [facility] Comment on above: Result Comment: mL/m in/1.73m2 CKD-EPI Creatinine Equation (2020) Performed By: #### L 501.2450, L500.3400, L500.2500, L505.5000, L300.4310, L300.3900, L501.9100, L100.0100 ####[facility] [address] [place], [place], [address] Glucose [Mass/Vol] 183 mg/dL High 70-99 [facility] Comment on above: Performed By: #### L 501.2450, L500.3400, L500.2500, L505.5000, L300.4310, L300.3900, L501.9100, L100.0100 ####[facility] [address] [place], [address] Potassium [Moles/Vol] 4.1 mmol/L Normal 3.3-5.1 [facility] Comment on above: Performed By: #### L 501.2450, L500.3400, L500.2500, L505.5000, L300.4310, L300.3900, L501.9100, L100.0100 ####[facility] [address] [place], [address] Sodium [Moles/Vol] 137 mmol/L Normal 133-145 [facility] Comment on above: Performed By: #### L 501.2450, L500.3400, L500.2500, L505.5000, L300.4310, L300.3900, L501.9100, L100.0100 ####[facility] [address] [place], [address] Urea nitrogen [Mass/Vol] 15 mg/dL Normal 4-19 [facility] Comment on above: Performed By: #### L 501.2450, L500.3400, L500.2500, L505.5000, L300.4310, L300.3900, L501.9100, L100.0100 ####[facility] [address] [place], [address] Brain/Head without Contrasto n 01-07-2025 Brain/Head without Contrast Normal [facility] CBC W/Diff, Automatedon 05- Absolute Lymph 2.40 X10 3/uL Normal 0.83-4.51 [facility] Comment on above: Performed By: #### L 501.2450, L500.3400, L500.2500, L505.5000, L300.4310, L300.3900, L501.9100, L100.0100 ####[facility] [address] [place], [address] Absolute Neut 8.7 X10 3/uL High 2.0-7.7 [facility] Comment on above: Performed By: #### L 501.2450, L500.3400, L500.2500, L505.5000, L300.4310, L300.3900, L501.9100, L100.0100 ####[facility] [address] [place], [address] Basophils/100 WBC (Bld) 0.4 % Normal 0-1 [facility] Comment on above: Performed By: #### L 501.2450, L500.3400, L500.2500, L505.5000, L300.4310, L300.3900, L501.9100, L100.0100 ####[facility] [address] [place], [address] Eosinophils/100 WBC (Bld) 1.2 % Normal 0-5 [facility] Comment on above: Performed By: #### L 501.2450, L500.3400, L500.2500, L505.5000, L300.4310, L300.3900, L501.9100, L100.0100 ####[facility] [address] [place], [address] Erythrocyte distribution width (RBC) [Ratio] 15.2 % High 11.6-14.6 [facility] Comment on above: Performed By: #### L 501.2450, L500.3400, L500.2500, L505.5000, L300.4310, L300.3900, L501.9100, L100.0100 ####[facility] [address] [place], [address] Hematocrit (Bld) [Volume fraction] 43.5 % Normal 37-47 [facility] Comment on above: Performed By: #### L 501.2450, L500.3400, L500.2500, L505.5000, L300.4310, L300.3900, L501.9100, L100.0100 ####[facility] [address] [place], [address] Hemoglobin (Bld) [Mass/Vol] 14.1 g/dL Normal 12.0-15.0 [facility] Comment on above: Performed By: #### L 501.2450, L500.3400, L500.2500, L505.5000, L300.4310, L300.3900, L501.9100, L100.0100 ####[facility] [address] [place], [address] IG% 0.500 Normal 0.0-0.9 [facility] Comment on above: Result Comment: IG% - Immature Granulocytes (promyelocytes, myelocytes andmetamyelocytes) > 1% indicates that a LEFT SHIFT is Present. Performed By: #### L 501.2450, L500.3400, L500.2500, L505.5000, L300.4310, L300.3900, L501.9100, L100.0100 ####[facility] [address] [place], [address] Lymphocytes/100 WBC (Bld) 19.5 % Normal 19-41 [facility] Comment on above: Performed By: #### L 501.2450, L500.3400, L500.2500, L505.5000, L300.4310, L300.3900, L501.9100, L100.0100 ####[facility] [address] [place], [address] MCH (RBC) [Entitic mass] 28.0 pg Normal 27.0-32.0 [facility] Comment on above: Performed By: #### L 501.2450, L500.3400, L500.2500, L505.5000, L300.4310, L300.3900, L501.9100, L100.0100 ####[facility] [address] [place], [address] MCHC (RBC) [Mass/Vol] 32.4 g/dL Normal 32-36 [facility] Comment on above: Performed By: #### L 501.2450, L500.3400, L500.2500, L505.5000, L300.4310, L300.3900, L501.9100, L100.0100 ####[facility] [address] [place], [address] MCV (RBC) [Entitic vol] 86.3 fL Normal 81-99 [facility] Comment on above: Performed By: #### L 501.2450, L500.3400, L500.2500, L505.5000, L300.4310, L300.3900, L501.9100, L100.0100 ####[facility] [address] [place], [address] Monocytes/100 WBC (Bld) 8.1 % Normal 0-10 [facility] Comment on above: Performed By: #### L 501.2450, L500.3400, L500.2500, L505.5000, L300.4310, L300.3900, L501.9100, L100.0100 ####[facility] [address] [place], [address] Neutrophils/100 WBC (Bld) 70.3 % High 47-70 [facility] Comment on above: Performed By: #### L 501.2450, L500.3400, L500.2500, L505.5000, L300.4310, L300.3900, L501.9100, L100.0100 ####[facility] [address] [place], [address] Nucleated RBC (Bld) [#/Vol] 0 10*3/uL Normal 0-5 [facility] Comment on above: Performed By: #### L 501.2450, L500.3400, L500.2500, L505.5000, L300.4310, L300.3900, L501.9100, L100.0100 ####[facility] [address] [place], [address] Platelet mean volume (Bld) [Entitic vol] 10.2 fL Normal 6.2-12.0 [facility] Comment on above: Performed By: #### L 501.2450, L500.3400, L500.2500, L505.5000, L300.4310, L300.3900, L501.9100, L100.0100 ####[facility] [address] [place], [address] Platelets (Bld) [#/Vol] 350 10*3/uL Normal 150-450 [facility] Comment on above: Performed By: #### L 501.2450, L500.3400, L500.2500, L505.5000, L300.4310, L300.3900, L501.9100, L100.0100 ####[facility] [address] [place], [address] RBC (Bld) [#/Vol] 5.04 10*6/uL Normal 4.2-5.4 [facility] Comment on above: Performed By: #### L 501.2450, L500.3400, L500.2500, L505.5000, L300.4310, L300.3900, L501.9100, L100.0100 ####[facility] [address] [place], [address] RDW SD 48.3 fl High 35.1-43.9 [facility] Comment on above: Performed By: #### L 501.2450, L500.3400, L500.2500, L505.5000, L300.4310, L300.3900, L501.9100, L100.0100 ####[facility] [address] [place], [address] WBC (Bld) [#/Vol] 12.3 10*3/uL High 4.4-11.0 [facility] Comment on above: Performed By: #### L 501.2450, L500.3400, L500.2500, L505.5000, L300.4310, L300.3900, L501.9100, L100.0100 ####[facility] [address] [place], [address] Chest 1 View (Portable)on Chest 1 View (Portable) Normal [facility] Emergency Department Summary on 01-07-2025 Emergency Department Summary Normal [facility] H AND P Exam - Hospitaliston 01-07-2025 H&P Exam - Hospitalist Normal [facility] L499.0042on 01-07-2025 Trop T High Sen 15 ng/L High <=14 [facility] Comment on above: Performed By: #### L 499.0042 ####[facility] [address] [place], [place], [address] L501.4021on 01-07-2025 Trop T High Sen 16 ng/L High <=14 [facility] Comment on above: Performed By: #### L 501.9520, L501.4021 ####[facility] [address] [place], [place], [address] Lactic Acidon 01-07-2025 Lactate [Moles/Vol] 2.0 mmol/L Normal 0.0-2.0 [facility] Comment on above: Order Comment: Y Result Comment: Crit ical Result(s) Called at: 2232 by:??FIORELLA HAVEN TO EMMATEAL Results read back by same. Performed By: #### L 503.6005 ####[facility] [address] [place], [address] Lipaseon 01-07-2025 Lipase [Catalytic activity/Vol] 29 U/L Normal 13-75 [facility] Comment on above: Result Comment: Plea se note:LIPASE revised reference range effective 22.New Lipase methodology. Expected to produce lower valuesthan the previous assay method.NEW Reference Range: 13 - 75 U/L Performed By: #### L 501.2450, L500.3400, L500.2500, L505.5000, L300.4310, L300.3900, L501.9100, L100.0100 ####[facility] [address] [place], [address] Liver Profileon 01-07-2025 Albumin [Mass/Vol] 4.0 g/dL Normal 3.4-4.8 [facility] Comment on above: Performed By: #### L 501.2450, L500.3400, L500.2500, L505.5000, L300.4310, L300.3900, L501.9100, L100.0100 ####[facility] [address] [place], [address] ALK PHOS 79 U/L Normal 35-104 [facility] Comment on above: Performed By: #### L 501.2450, L500.3400, L500.2500, L505.5000, L300.4310, L300.3900, L501.9100, L100.0100 ####[facility] [address] [place], [address] ALT [Catalytic activity/Vol] 30 U/L Normal <=34 [facility] Comment on above: Performed By: #### L 501.2450, L500.3400, L500.2500, L505.5000, L300.4310, L300.3900, L501.9100, L100.0100 ####[facility] [address] [place], [address] AST [Catalytic activity/Vol] 21 U/L Normal <=31 [facility] Comment on above: Performed By: #### L 501.2450, L500.3400, L500.2500, L505.5000, L300.4310, L300.3900, L501.9100, L100.0100 ####[facility] [address] [place], [address] Bilirubin [Mass/Vol] 0.26 mg/dL Normal 0.00-1.30 [facility] Comment on above: Performed By: #### L 501.2450, L500.3400, L500.2500, L505.5000, L300.4310, L300.3900, L501.9100, L100.0100 ####[facility] [address] [place], [place], [id number] Bilirubin.direct [Mass/Vol] 0.14 mg/dL Normal 0.00-0.30 [facility] Comment on above: Performed By: #### L 501.2450, L500.3400, L500.2500, L505.5000, L300.4310, L300.3900, L501.9100, L100.0100 ####[facility] [address] [place], [place], [phone] Globulin (S) [Mass/Vol] 3.0 g/dL Normal 2.2-4.2 [facility] Comment on above: Performed By: #### L 501.2450, L500.3400, L500.2500, L505.5000, L300.4310, L300.3900, L501.9100, L100.0100 ####[facility] [address] [place], [place], [id number] T PROT 7.0 g/dL Normal 5.9-8.4 [facility] Comment on above: Performed By: #### L 501.2450, L500.3400, L500.2500, L505.5000, L300.4310, L300.3900, L501.9100, L100.0100 ####[facility] [address] [place], [place], [id number] Partial Thromboplast Timeon 01-07-2025 aPTT Coag (Bld) [Time] 24.6 s Normal 24.1-36.2 [facility] Comment on above: Performed By: #### L 501.2450, L500.3400, L500.2500, L505.5000, L300.4310, L300.3900, L501.9100, L100.0100 ####[facility] [address] [place], [address] Prothrombin Time w/INRon INR Coag (PPP) [Relative time] 0.9 {INR} Normal [facility] Comment on above: Performed By: #### L 501.2450, L500.3400, L500.2500, L505.5000, L300.4310, L300.3900, L501.9100, L100.0100 ####[facility] [address] [place], [address] PT Coag (PPP) [Time] 12.7 s Normal 11.7-14.9 [facility] Comment on above: Performed By: #### L 501.2450, L500.3400, L500.2500, L505.5000, L300.4310, L300.3900, L501.9100, L100.0100 ####[facility] [address] [place], [address] Thyroid Stim Hormone (TSH)on 01-07-2025 TSH 5.620 uIU/mL High 0.300-4.200 [facility] Comment on above: Performed By: #### L 501.9520, L501.4021 ####[facility] [address] [place], [address] Urinalysis, Completeon 01-07 BACTERIA 1+ /hpf Normal None Seen [facility] Comment on above: Order Comment: CLEAN CATCH Performed By: #### L 400.0001 ####[facility] [address] [place], [address] RBC 0-5 SEEN Normal 0-5 [facility] Comment on above: Order Comment: CLEAN CATCH Performed By: #### L 400.0001 ####[facility] [address] [place], [address] WBC 10-25 SEEN Normal 0-5 [facility] Comment on above: Order Comment: CLEAN CATCH Performed By: #### L 400.0001 ####[facility] [address] [place], [address] EPI,SQUAMOUS 0 SEEN Normal 5-10 [facility] Comment on above: Order Comment: CLEAN CATCH Performed By: #### L 400.0001 ####[facility] [address] [place], [address] Mucus Ql (Urine sed) [address] [facility] Comment on above: Order Comment: CLEAN CATCH Performed By: #### L 400.0001 ####[facility] [address] [place], [address] Urine Drug Screen (VISTA)on 01-07-2025 AMPHETAMINES Negative Normal <1000 ng/mL [facility] Comment on above: Performed By: #### L 501.2450, L500.3400, L500.2500, L505.5000, L300.4310, L300.3900, L501.9100, L100.0100 ####[facility] [address] [place], [place], [id number] BARBITIURATES Negative Normal < 200 ng/mL [facility] Comment on above: Performed By: #### L 501.2450, L500.3400, L500.2500, L505.5000, L300.4310, L300.3900, L501.9100, L100.0100 ####[facility] [address] [place], [address] BENZODIAZIPINE Negative Normal < 200 ng/mL [facility] Comment on above: Performed By: #### L 501.2450, L500.3400, L500.2500, L505.5000, L300.4310, L300.3900, L501.9100, L100.0100 ####[facility] [address] [place], [address] BUP Ur Drug Scr Negative Normal < 200 ng/mL [facility] Comment on above: Performed By: #### L 501.2450, L500.3400, L500.2500, L505.5000, L300.4310, L300.3900, L501.9100, L100.0100 ####[facility] [address] [place], [address] COCAINE Negative Normal < 300 ng/mL [facility] Comment on above: Performed By: #### L 501.2450, L500.3400, L500.2500, L505.5000, L300.4310, L300.3900, L501.9100, L100.0100 ####[facility] [address] [place], [address] Fentanyl Negative Normal [facility] Comment on above: Performed By: #### L 501.2450, L500.3400, L500.2500, L505.5000, L300.4310, L300.3900, L501.9100, L100.0100 ####[facility] [address] [place], [address] METHADONE Negative Normal < 300 ng/mL [facility] Comment on above: Performed By: #### L 501.2450, L500.3400, L500.2500, L505.5000, L300.4310, L300.3900, L501.9100, L100.0100 ####[facility] [address] [place], [address] OPIATES Negative Normal < 300 ng/mL [facility] Comment on above: Performed By: #### L 501.2450, L500.3400, L500.2500, L505.5000, L300.4310, L300.3900, L501.9100, L100.0100 ####[facility] [address] [place], [address] OXYCODONE Negative Normal < 100 ng/mL [facility] Comment on above: Performed By: #### L 501.2450, L500.3400, L500.2500, L505.5000, L300.4310, L300.3900, L501.9100, L100.0100 ####[facility] [address] [place], [address] PCP Negative Normal < 25 ng/mL [facility] Comment on above: Performed By: #### L 501.2450, L500.3400, L500.2500, L505.5000, L300.4310, L300.3900, L501.9100, L100.0100 ####[facility] [address] [place], [place], [id number] THC Negative Normal < 50 ng/mL [facility] Comment on above: Performed By: #### L 501.2450, L500.3400, L500.2500, L505.5000, L300.4310, L300.3900, L501.9100, L100.0100 ####[facility] [address] [place], [place], [id number] MR/BMS.BPon 12-26-2024 MR/BMS.BP Normal [facility] Spine Lumbar (Routine)on Spine Lumbar (Routine) Normal [facility] Shoulder min 2 Viewson 12-09 Shoulder min [address] [facility] MR/BMS.BPon 12-03-2024 MR/BMS.BP Normal [facility] Basic Metabolic Profile (BMP )on 11-14-2024 BUN/CRE 21.4 RATIO High 10-20 [facility] Comment on above: Performed By: #### L 100.0100, L500.2500 ####[facility] [address] [place], [address] Calcium [Mass/Vol] 10.1 mg/dL Normal 7.6-11.0 [facility] Comment on above: Performed By: #### L 100.0100, L500.2500 ####[facility] [address] [place], [address] Chloride [Moles/Vol] 102 mmol/L Normal 98-108 [facility] Comment on above: Performed By: #### L 100.0100, L500.2500 ####[facility] [address] [place], [address] CO2 [Moles/Vol] 24.9 mmol/L Normal 21.0-32.0 [facility] Comment on above: Performed By: #### L 100.0100, L500.2500 ####[facility] [address] [place], [address] Creatinine [Mass/Vol] 0.94 mg/dL Normal 0.70-1.20 [facility] Comment on above: Performed By: #### L 100.0100, L500.2500 ####[facility] [address] [place], [address] ECRCL 58.42 ml/min Normal 50-250 [facility] Comment on above: Performed By: #### L 100.0100, L500.2500 ####[facility] [address] [place], [address] GAP 12 Normal 5-15 [facility] Comment on above: Performed By: #### L 100.0100, L500.2500 ####[facility] [address] [place], [address] GFR/1.73 sq M.predicted among non-blacks MDRD (S/P/Bld) [Vol rate/Area] 62 mL/min/{1.73_m2} Normal >60 [facility] Comment on above: Result Comment: mL/m in/1.73m2 CKD-EPI Creatinine Equation (2020) Performed By: #### L 100.0100, L500.2500 ####[facility] [address] [place], [address] Glucose [Mass/Vol] 104 mg/dL High 70-99 [facility] Comment on above: Performed By: #### L 100.0100, L500.2500 ####[facility] [address] [place], [address] Potassium [Moles/Vol] 4.7 mmol/L Normal 3.3-5.1 [facility] Comment on above: Performed By: #### L 100.0100, L500.2500 ####[facility] [address] [place], [address] Sodium [Moles/Vol] 139 mmol/L Normal 133-145 [facility] Comment on above: Performed By: #### L 100.0100, L500.2500 ####[facility] [address] [place], [address] Urea nitrogen [Mass/Vol] 20 mg/dL High 4-19 [facility] Comment on above: Performed By: #### L 100.0100, L500.2500 ####[facility] [address] [place], [address] CBC W/Diff, Automatedon 04-0 4-2025 Absolute Lymph 1.74 X10 3/uL Normal 0.83-4.51 [facility] Comment on above: Performed By: #### L 100.0100, L500.2500 ####[facility] [address] [place], [address] Absolute Neut 5.3 X10 3/uL Normal 2.0-7.7 [facility] Comment on above: Performed By: #### L 100.0100, L500.2500 ####[facility] [address] [place], [address] Basophils/100 WBC (Bld) 0.4 % Normal 0-1 [facility] Comment on above: Performed By: #### L 100.0100, L500.2500 ####[facility] [address] [place], [address] Eosinophils/100 WBC (Bld) 3.9 % Normal 0-5 [facility] Comment on above: Performed By: #### L 100.0100, L500.2500 ####[facility] [address] [place], [address] Erythrocyte distribution width (RBC) [Ratio] 15.3 % High 11.6-14.6 [facility] Comment on above: Performed By: #### L 100.0100, L500.2500 ####[facility] [address] [place], [address] Hematocrit (Bld) [Volume fraction] 42.2 % Normal 37-47 [facility] Comment on above: Performed By: #### L 100.0100, L500.2500 ####[facility] [address] [place], [address] Hemoglobin (Bld) [Mass/Vol] 13.7 g/dL Normal 12.0-15.0 [facility] Comment on above: Performed By: #### L 100.0100, L500.2500 ####[facility] [address] [place], [address] IG% 0.400 Normal 0.0-0.9 [facility] Comment on above: Result Comment: IG% - Immature Granulocytes (promyelocytes, myelocytes andmetamyelocytes) > 1% indicates that a LEFT SHIFT is Present. Performed By: #### L 100.0100, L500.2500 ####[facility] [address] [place], [address] Lymphocytes/100 WBC (Bld) 22.0 % Normal 19-41 [facility] Comment on above: Performed By: #### L 100.0100, L500.2500 ####[facility] [address] [place], [address] MCH (RBC) [Entitic mass] 27.6 pg Normal 27.0-32.0 [facility] Comment on above: Performed By: #### L 100.0100, L500.2500 ####[facility] [address] [place], [address] MCHC (RBC) [Mass/Vol] 32.5 g/dL Normal 32-36 [facility] Comment on above: Performed By: #### L 100.0100, L500.2500 ####[facility] [address] [place], [address] MCV (RBC) [Entitic vol] 85.1 fL Normal 81-99 [facility] Comment on above: Performed By: #### L 100.0100, L500.2500 ####[facility] [address] [place], [address] Monocytes/100 WBC (Bld) 6.4 % Normal 0-10 [facility] Comment on above: Performed By: #### L 100.0100, L500.2500 ####[facility] [address] [place], [address] Neutrophils/100 WBC (Bld) 66.9 % Normal 47-70 [facility] Comment on above: Performed By: #### L 100.0100, L500.2500 ####[facility] [address] [place], [address] Nucleated RBC (Bld) [#/Vol] 0 10*3/uL Normal 0-5 [facility] Comment on above: Performed By: #### L 100.0100, L500.2500 ####[facility] [address] [place], [address] Platelet mean volume (Bld) [Entitic vol] 9.5 fL Normal 6.2-12.0 [facility] Comment on above: Performed By: #### L 100.0100, L500.2500 ####[facility] [address] [place], [address] Platelets (Bld) [#/Vol] 349 10*3/uL Normal 150-450 [facility] Comment on above: Performed By: #### L 100.0100, L500.2500 ####[facility] [address] [place], [address] RBC (Bld) [#/Vol] 4.96 10*6/uL Normal 4.2-5.4 [facility] Comment on above: Performed By: #### L 100.0100, L500.2500 ####[facility] [address] [place], [address] RDW SD 46.8 fl High 35.1-43.9 [facility] Comment on above: Performed By: #### L 100.0100, L500.2500 ####[facility] [address] [place], [address] WBC (Bld) [#/Vol] 7.9 10*3/uL Normal 4.4-11.0 [facility] Comment on above: Performed By: #### L 100.0100, L500.2500 ####[facility] [address] [place], [address] Emergency Department Summary on 11-14-2024 Emergency Department Summary Normal [facility] Femur Min 2 Viewson 11-15-19 25 Femur Min 2 Views Normal [facility] HIP, UNI W/ Pelvis 2-3 Views on 11-14-2024 HIP, UNI W/ Pelvis 2-3 Views Normal [facility] Basic Metabolic Profile (BMP )on 10-22-2024 BUN Normal 4-19 [facility] Comment on above: Result Comment: Canc elled via OM: Order cancelled - Patient discharged Performed By: #### L 500.2500, L100.0100 ####[facility] [address] [place], [address] BUN/CRE Normal 10-20 [facility] Comment on above: Result Comment: Canc elled via OM: Order cancelled - Patient discharged Performed By: #### L 500.2500, L100.0100 ####[facility] [address] [place], [address] Calcium Normal 7.6-11.0 [facility] Comment on above: Result Comment: Canc elled via OM: Order cancelled - Patient discharged Performed By: #### L 500.2500, L100.0100 ####[facility] [address] [place], [address] CL Normal 98-108 [facility] Comment on above: Result Comment: Canc elled via OM: Order cancelled - Patient discharged Performed By: #### L 500.2500, L100.0100 ####[facility] [address] [place], [address] CO2 Normal 21.0-32.0 [facility] Comment on above: Result Comment: Canc elled via OM: Order cancelled - Patient discharged Performed By: #### L 500.2500, L100.0100 ####[facility] [address] [place], [address] CREAT,SERUM Normal 0.70-1.20 [facility] Comment on above: Result Comment: Canc elled via OM: Order cancelled - Patient discharged Performed By: #### L 500.2500, L100.0100 ####[facility] [address] [place], [address] eGFR Normal >60 [facility] Comment on above: Result Comment: Canc elled via OM: Order cancelled - Patient discharged Performed By: #### L 500.2500, L100.0100 ####[facility] [address] [place], [address] GAP Normal 5-15 [facility] Comment on above: Result Comment: Canc elled via OM: Order cancelled - Patient discharged Performed By: #### L 500.2500, L100.0100 ####[facility] [address] [place], [address] GLU Normal 70-99 [facility] Comment on above: Result Comment: Canc elled via OM: Order cancelled - Patient discharged Performed By: #### L 500.2500, L100.0100 ####[facility] [address] [place], [address] Potassium Normal 3.3-5.1 [facility] Comment on above: Result Comment: Canc elled via OM: Order cancelled - Patient discharged Performed By: #### L 500.2500, L100.0100 ####[facility] [address] [place], [address] Basic Metabolic Profile (BMP) Normal 133-145 [facility] Comment on above: Result Comment: Canc elled via OM: Order cancelled - Patient discharged Performed By: #### L 500.2500, L100.0100 ####[facility] [address] [place], [address] CBC W/Diff, Automatedon 03-1 Absolute Neut Normal 2.0-7.7 [facility] Comment on above: Result Comment: Canc elled via OM: Order cancelled - Patient discharged Performed By: #### L 500.2500, L100.0100 ####[facility] [address] [place], [address] HCT Normal 37-47 [facility] Comment on above: Result Comment: Canc elled via OM: Order cancelled - Patient discharged Performed By: #### L 500.2500, L100.0100 ####[facility] [address] [place], [address] HGB Normal 12.0-15.0 [facility] Comment on above: Result Comment: Canc elled via OM: Order cancelled - Patient discharged Performed By: #### L 500.2500, L100.0100 ####[facility] [address] [place], [address] MCH Normal 27.0-32.0 [facility] Comment on above: Result Comment: Canc elled via OM: Order cancelled - Patient discharged Performed By: #### L 500.2500, L100.0100 ####[facility] [address] [place], [address] MCHC Normal 32-36 [facility] Comment on above: Result Comment: Canc elled via OM: Order cancelled - Patient discharged Performed By: #### L 500.2500, L100.0100 ####[facility] [address] [place], [address] MCV Normal 81-99 [facility] Comment on above: Result Comment: Canc elled via OM: Order cancelled - Patient discharged Performed By: #### L 500.2500, L100.0100 ####[facility] [address] [place], [address] NEUT% Normal 47-70 [facility] Comment on above: Result Comment: Canc elled via OM: Order cancelled - Patient discharged Performed By: #### L 500.2500, L100.0100 ####[facility] [address] [place], [address] PLT Normal 150-450 [facility] Comment on above: Result Comment: Canc elled via OM: Order cancelled - Patient discharged Performed By: #### L 500.2500, L100.0100 ####[facility] [address] [place], [address] RBC Normal 4.2-5.4 [facility] Comment on above: Result Comment: Canc elled via OM: Order cancelled - Patient discharged Performed By: #### L 500.2500, L100.0100 ####[facility] [facility] [address] [place], [address] RDW CV Normal 11.6-14.6 [facility] Comment on above: Result Comment: Canc elled via OM: Order cancelled - Patient discharged Performed By: #### L 500.2500, L100.0100 ####[facility] [address] [place], [address] RDW SD Normal 35.1-43.9 [facility] Comment on above: Result Comment: Canc elled via OM: Order cancelled - Patient discharged Performed By: #### L 500.2500, L100.0100 ####[facility] [address] [place], [address] WBC Normal 4.4-11.0 [facility] Comment on above: Result Comment: Canc elled via OM: Order cancelled - Patient discharged Performed By: #### L 500.2500, L100.0100 ####[facility] [address] [place], [address] Basic Metabolic Profile (BMP )on 10-21-2024 BUN Normal 4-19 [facility] Comment on above: Result Comment: Canc elled via OM: Order cancelled - Patient discharged Performed By: #### L 100.0100, L500.2500 ####[facility] [address] [place], [address] BUN/CRE Normal 10-20 [facility] Comment on above: Result Comment: Canc elled via OM: Order cancelled - Patient discharged Performed By: #### L 100.0100, L500.2500 ####[facility] [address] [place], [address] Calcium Normal 7.6-11.0 [facility] Comment on above: Result Comment: Canc elled via OM: Order cancelled - Patient discharged Performed By: #### L 100.0100, L500.2500 ####[facility] [address] [place], [address] CL Normal 98-108 [facility] Comment on above: Result Comment: Canc elled via OM: Order cancelled - Patient discharged Performed By: #### L 100.0100, L500.2500 ####[facility] [address] [place], [address] CO2 Normal 21.0-32.0 [facility] Comment on above: Result Comment: Canc elled via OM: Order cancelled - Patient discharged Performed By: #### L 100.0100, L500.2500 ####[facility] [address] [place], [address] CREAT,SERUM Normal 0.70-1.20 [facility] Comment on above: Result Comment: Canc elled via OM: Order cancelled - Patient discharged Performed By: #### L 100.0100, L500.2500 ####[facility] [address] [place], [address] eGFR Normal >60 [facility] Comment on above: Result Comment: Canc elled via OM: Order cancelled - Patient discharged Performed By: #### L 100.0100, L500.2500 ####[facility] [address] [place], [address] GAP Normal 5-15 [facility] Comment on above: Result Comment: Canc elled via OM: Order cancelled - Patient discharged Performed By: #### L 100.0100, L500.2500 ####[facility] [address] [place], [address] GLU Normal 70-99 [facility] Comment on above: Result Comment: Canc elled via OM: Order cancelled - Patient discharged Performed By: #### L 100.0100, L500.2500 ####[facility] [address] [place], [address] Potassium Normal 3.3-5.1 [facility] Comment on above: Result Comment: Canc elled via OM: Order cancelled - Patient discharged Performed By: #### L 100.0100, L500.2500 ####[facility] [address] [place], [address] Basic Metabolic Profile (BMP) Normal 133-145 [facility] Comment on above: Result Comment: Canc elled via OM: Order cancelled - Patient discharged Performed By: #### L 100.0100, L500.2500 ####[facility] [address] [place], [address] CBC W/Diff, Automatedon - Absolute Neut Normal 2.0-7.7 [facility] Comment on above: Result Comment: Canc elled via OM: Order cancelled - Patient discharged Performed By: #### L 100.0100, L500.2500 ####[facility] [address] [place], [address] HCT Normal 37-47 [facility] Comment on above: Result Comment: Canc elled via OM: Order cancelled - Patient discharged Performed By: #### L 100.0100, L500.2500 ####[facility] [address] [place], [address] HGB Normal 12.0-15.0 [facility] Comment on above: Result Comment: Canc elled via OM: Order cancelled - Patient discharged Performed By: #### L 100.0100, L500.2500 ####[facility] [address] [place], [address] MCH Normal 27.0-32.0 [facility] Comment on above: Result Comment: Canc elled via OM: Order cancelled - Patient discharged Performed By: #### L 100.0100, L500.2500 ####[facility] [address] [place], [address] MCHC Normal 32-36 [facility] Comment on above: Result Comment: Canc elled via OM: Order cancelled - Patient discharged Performed By: #### L 100.0100, L500.2500 ####[facility] [address] [place], [address] MCV Normal 81-99 [facility] Comment on above: Result Comment: Canc elled via OM: Order cancelled - Patient discharged Performed By: #### L 100.0100, L500.2500 ####[facility] [address] [place], [address] NEUT% Normal 47-70 [facility] Comment on above: Result Comment: Canc elled via OM: Order cancelled - Patient discharged Performed By: #### L 100.0100, L500.2500 ####[facility] [address] [place], [address] PLT Normal 150-450 [facility] Comment on above: Result Comment: Canc elled via OM: Order cancelled - Patient discharged Performed By: #### L 100.0100, L500.2500 ####[facility] [address] [place], [address] RBC Normal 4.2-5.4 [facility] Comment on above: Result Comment: Canc elled via OM: Order cancelled - Patient discharged Performed By: #### L 100.0100, L500.2500 ####[facility] [address] [place], [address] RDW CV Normal 11.6-14.6 [facility] Comment on above: Result Comment: Canc elled via OM: Order cancelled - Patient discharged Performed By: #### L 100.0100, L500.2500 ####[facility] [address] [place], [address] RDW SD Normal 35.1-43.9 [facility] Comment on above: Result Comment: Canc elled via OM: Order cancelled - Patient discharged Performed By: #### L 100.0100, L500.2500 ####[facility] [address] [place], [address] WBC Normal 4.4-11.0 [facility] Comment on above: Result Comment: Canc elled via OM: Order cancelled - Patient discharged Performed By: #### L 100.0100, L500.2500 ####[facility] [address] [place], [address] L/S Spine Min 4 Viewson 10-11 L/S Spine Min 4 Views Normal [facility] Basic Metabolic Profile (BMP )on 10-20-2024 BUN Normal 4-19 [facility] Comment on above: Result Comment: Canc elled via OM: Order cancelled - Patient discharged Performed By: #### L 100.0100, L500.2500 ####[facility] [address] [place], [address] BUN/CRE Normal 10-20 [facility] Comment on above: Result Comment: Canc elled via OM: Order cancelled - Patient discharged Performed By: #### L 100.0100, L500.2500 ####[facility] [address] [place], [address] Calcium Normal 7.6-11.0 [facility] Comment on above: Result Comment: Canc elled via OM: Order cancelled - Patient discharged Performed By: #### L 100.0100, L500.2500 ####[facility] [address] [place], [address] CL Normal 98-108 [facility] Comment on above: Result Comment: Canc elled via OM: Order cancelled - Patient discharged Performed By: #### L 100.0100, L500.2500 ####[facility] [address] [place], [address] CO2 Normal 21.0-32.0 [facility] Comment on above: Result Comment: Canc elled via OM: Order cancelled - Patient discharged Performed By: #### L 100.0100, L500.2500 ####[facility] [address] [place], [address] CREAT,SERUM Normal 0.70-1.20 [facility] Comment on above: Result Comment: Canc elled via OM: Order cancelled - Patient discharged Performed By: #### L 100.0100, L500.2500 ####[facility] [address] [place], [address] eGFR Normal >60 [facility] Comment on above: Result Comment: Canc elled via OM: Order cancelled - Patient discharged Performed By: #### L 100.0100, L500.2500 ####[facility] [address] [place], [address] GAP Normal 5-15 [facility] Comment on above: Result Comment: Canc elled via OM: Order cancelled - Patient discharged Performed By: #### L 100.0100, L500.2500 ####[facility] [address] [place], [address] GLU Normal 70-99 [facility] Comment on above: Result Comment: Canc elled via OM: Order cancelled - Patient discharged Performed By: #### L 100.0100, L500.2500 ####[facility] [address] [place], [address] Potassium Normal 3.3-5.1 [facility] Comment on above: Result Comment: Canc elled via OM: Order cancelled - Patient discharged Performed By: #### L 100.0100, L500.2500 ####[facility] [address] [place], [address] Basic Metabolic Profile (BMP) Normal 133-145 [facility] Comment on above: Result Comment: Canc elled via OM: Order cancelled - Patient discharged Performed By: #### L 100.0100, L500.2500 ####[facility] [address] [place], [address] CBC W/Diff, Automatedon 03-1 0-2024 Absolute Neut Normal 2.0-7.7 [facility] Comment on above: Result Comment: Canc elled via OM: Order cancelled - Patient discharged Performed By: #### L 100.0100, L500.2500 ####[facility] [address] [place], [address] HCT Normal 37-47 [facility] Comment on above: Result Comment: Canc elled via OM: Order cancelled - Patient discharged Performed By: #### L 100.0100, L500.2500 ####[facility] [address] [place], [address] HGB Normal 12.0-15.0 [facility] Comment on above: Result Comment: Canc elled via OM: Order cancelled - Patient discharged Performed By: #### L 100.0100, L500.2500 ####[facility] [address] [place], [address] MCH Normal 27.0-32.0 [facility] Comment on above: Result Comment: Canc elled via OM: Order cancelled - Patient discharged Performed By: #### L 100.0100, L500.2500 ####[facility] [address] [place], [address] MCHC Normal 32-36 [facility] Comment on above: Result Comment: Canc elled via OM: Order cancelled - Patient discharged Performed By: #### L 100.0100, L500.2500 ####[facility] [address] [place], [address] MCV Normal 81-99 [facility] Comment on above: Result Comment: Canc elled via OM: Order cancelled - Patient discharged Performed By: #### L 100.0100, L500.2500 ####[facility] [address] [place], [address] NEUT% Normal 47-70 [facility] Comment on above: Result Comment: Canc elled via OM: Order cancelled - Patient discharged Performed By: #### L 100.0100, L500.2500 ####[facility] [address] [place], [address] PLT Normal 150-450 [facility] Comment on above: Result Comment: Canc elled via OM: Order cancelled - Patient discharged Performed By: #### L 100.0100, L500.2500 ####[facility] [address] [place], [address] RBC Normal 4.2-5.4 [facility] Comment on above: Result Comment: Canc elled via OM: Order cancelled - Patient discharged Performed By: #### L 100.0100, L500.2500 ####[facility] [address] [place], [address] RDW CV Normal 11.6-14.6 [facility] Comment on above: Result Comment: Canc elled via OM: Order cancelled - Patient discharged Performed By: #### L 100.0100, L500.2500 ####[facility] [address] [place], [address] RDW SD Normal 35.1-43.9 [facility] Comment on above: Result Comment: Canc elled via OM: Order cancelled - Patient discharged Performed By: #### L 100.0100, L500.2500 ####[facility] [address] [place], [address] WBC Normal 4.4-11.0 [facility] Comment on above: Result Comment: Canc elled via OM: Order cancelled - Patient discharged Performed By: #### L 100.0100, L500.2500 ####[facility] [address] [place], [address] Basic Metabolic Profile (BMP )on 10-19-2024 BUN Normal 4-19 [facility] Comment on above: Result Comment: Canc elled via OM: Order cancelled - Patient discharged Performed By: #### L 500.2500, L100.0100 ####[facility] [address] [place], [address] BUN/CRE Normal 10-20 [facility] Comment on above: Result Comment: Canc elled via OM: Order cancelled - Patient discharged Performed By: #### L 500.2500, L100.0100 ####[facility] [address] [place], [address] Calcium Normal 7.6-11.0 [facility] Comment on above: Result Comment: Canc elled via OM: Order cancelled - Patient discharged Performed By: #### L 500.2500, L100.0100 ####[facility] [address] [place], [address] CL Normal 98-108 [facility] Comment on above: Result Comment: Canc elled via OM: Order cancelled - Patient discharged Performed By: #### L 500.2500, L100.0100 ####[facility] [address] [place], [address] CO2 Normal 21.0-32.0 [facility] Comment on above: Result Comment: Canc elled via OM: Order cancelled - Patient discharged Performed By: #### L 500.2500, L100.0100 ####[facility] [address] [place], [address] CREAT,SERUM Normal 0.70-1.20 [facility] Comment on above: Result Comment: Canc elled via OM: Order cancelled - Patient discharged Performed By: #### L 500.2500, L100.0100 ####[facility] [address] [place], [address] eGFR Normal >60 [facility] Comment on above: Result Comment: Canc elled via OM: Order cancelled - Patient discharged Performed By: #### L 500.2500, L100.0100 ####[facility] [address] [place], [address] GAP Normal 5-15 [facility] Comment on above: Result Comment: Canc elled via OM: Order cancelled - Patient discharged Performed By: #### L 500.2500, L100.0100 ####[facility] [address] [place], [address] GLU Normal 70-99 [facility] Comment on above: Result Comment: Canc elled via OM: Order cancelled - Patient discharged Performed By: #### L 500.2500, L100.0100 ####[facility] [address] [place], [address] Potassium Normal 3.3-5.1 [facility] Comment on above: Result Comment: Canc elled via OM: Order cancelled - Patient discharged Performed By: #### L 500.2500, L100.0100 ####[facility] [address] [place], [address] Basic Metabolic Profile (BMP) Normal 133-145 [facility] Comment on above: Result Comment: Canc elled via OM: Order cancelled - Patient discharged Performed By: #### L 500.2500, L100.0100 ####[facility] [address] [place], [address] CBC W/Diff, Automatedon 03-0 Absolute Neut Normal 2.0-7.7 [facility] Comment on above: Result Comment: Canc elled via OM: Order cancelled - Patient discharged Performed By: #### L 500.2500, L100.0100 ####[facility] [address] [place], [address] HCT Normal 37-47 [facility] Comment on above: Result Comment: Canc elled via OM: Order cancelled - Patient discharged Performed By: #### L 500.2500, L100.0100 ####[facility] [address] [place], [address] HGB Normal 12.0-15.0 [facility] Comment on above: Result Comment: Canc elled via OM: Order cancelled - Patient discharged Performed By: #### L 500.2500, L100.0100 ####[facility] [address] [place], [address] MCH Normal 27.0-32.0 [facility] Comment on above: Result Comment: Canc elled via OM: Order cancelled - Patient discharged Performed By: #### L 500.2500, L100.0100 ####[facility] [address] [place], [address] MCHC Normal 32-36 [facility] Comment on above: Result Comment: Canc elled via OM: Order cancelled - Patient discharged Performed By: #### L 500.2500, L100.0100 ####[facility] [address] [place], [address] MCV Normal 81-99 [facility] Comment on above: Result Comment: Canc elled via OM: Order cancelled - Patient discharged Performed By: #### L 500.2500, L100.0100 ####[facility] [address] [place], [address] NEUT% Normal 47-70 [facility] Comment on above: Result Comment: Canc elled via OM: Order cancelled - Patient discharged Performed By: #### L 500.2500, L100.0100 ####[facility] [address] [place], [address] PLT Normal 150-450 [facility] Comment on above: Result Comment: Canc elled via OM: Order cancelled - Patient discharged Performed By: #### L 500.2500, L100.0100 ####[facility] [address] [place], [address] RBC Normal 4.2-5.4 [facility] Comment on above: Result Comment: Canc elled via OM: Order cancelled - Patient discharged Performed By: #### L 500.2500, L100.0100 ####[facility] [address] [place], [address] RDW CV Normal 11.6-14.6 [facility] Comment on above: Result Comment: Canc elled via OM: Order cancelled - Patient discharged Performed By: #### L 500.2500, L100.0100 ####[facility] [address] [place], [address] RDW SD Normal 35.1-43.9 [facility] Comment on above: Result Comment: Canc elled via OM: Order cancelled - Patient discharged Performed By: #### L 500.2500, L100.0100 ####[facility] [address] [place], [address] WBC Normal 4.4-11.0 [facility] Comment on above: Result Comment: Canc elled via OM: Order cancelled - Patient discharged Performed By: #### L 500.2500, L100.0100 ####[facility] [address] [place], [address] Basic Metabolic Profile (BMP )on 10-18-2024 BUN Normal 4-19 [facility] Comment on above: Result Comment: Canc elled via OM: Order cancelled - Patient discharged Performed By: #### L 100.0100, L500.2500 ####[facility] [address] [place], [address] BUN/CRE Normal 10-20 [facility] Comment on above: Result Comment: Canc elled via OM: Order cancelled - Patient discharged Performed By: #### L 100.0100, L500.2500 ####[facility] [address] [place], [address] Calcium Normal 7.6-11.0 [facility] Comment on above: Result Comment: Canc elled via OM: Order cancelled - Patient discharged Performed By: #### L 100.0100, L500.2500 ####[facility] [address] [place], [address] CL Normal 98-108 [facility] Comment on above: Result Comment: Canc elled via OM: Order cancelled - Patient discharged Performed By: #### L 100.0100, L500.2500 ####[facility] [address] [place], [address] CO2 Normal 21.0-32.0 [facility] Comment on above: Result Comment: Canc elled via OM: Order cancelled - Patient discharged Performed By: #### L 100.0100, L500.2500 ####[facility] [address] [place], [address] CREAT,SERUM Normal 0.70-1.20 [facility] Comment on above: Result Comment: Canc elled via OM: Order cancelled - Patient discharged Performed By: #### L 100.0100, L500.2500 ####[facility] [address] [place], [address] eGFR Normal >60 [facility] Comment on above: Result Comment: Canc elled via OM: Order cancelled - Patient discharged Performed By: #### L 100.0100, L500.2500 ####[facility] [address] [place], [address] GAP Normal 5-15 [facility] Comment on above: Result Comment: Canc elled via OM: Order cancelled - Patient discharged Performed By: #### L 100.0100, L500.2500 ####[facility] [address] [place], [address] GLU Normal 70-99 [facility] Comment on above: Result Comment: Canc elled via OM: Order cancelled - Patient discharged Performed By: #### L 100.0100, L500.2500 ####[facility] [address] [place], [address] Potassium Normal 3.3-5.1 [facility] Comment on above: Result Comment: Canc elled via OM: Order cancelled - Patient discharged Performed By: #### L 100.0100, L500.2500 ####[facility] [address] [place], [address] Basic Metabolic Profile (BMP) Normal 133-145 [facility] Comment on above: Result Comment: Canc elled via OM: Order cancelled - Patient discharged Performed By: #### L 100.0100, L500.2500 ####[facility] [address] [place], [address] CBC W/Diff, Automatedon 03-0 -2024 Absolute Neut Normal 2.0-7.7 [facility] Comment on above: Result Comment: Canc elled via OM: Order cancelled - Patient discharged Performed By: #### L 100.0100, L500.2500 ####[facility] [address] [place], [address] HCT Normal 37-47 [facility] Comment on above: Result Comment: Canc elled via OM: Order cancelled - Patient discharged Performed By: #### L 100.0100, L500.2500 ####[facility] [address] [place], [address] HGB Normal 12.0-15.0 [facility] Comment on above: Result Comment: Canc elled via OM: Order cancelled - Patient discharged Performed By: #### L 100.0100, L500.2500 ####[facility] [address] [place], [address] MCH Normal 27.0-32.0 [facility] Comment on above: Result Comment: Canc elled via OM: Order cancelled - Patient discharged Performed By: #### L 100.0100, L500.2500 ####[facility] [address] [place], [address] MCHC Normal 32-36 [facility] Comment on above: Result Comment: Canc elled via OM: Order cancelled - Patient discharged Performed By: #### L 100.0100, L500.2500 ####[facility] [address] [place], [address] MCV Normal 81-99 [facility] Comment on above: Result Comment: Canc elled via OM: Order cancelled - Patient discharged Performed By: #### L 100.0100, L500.2500 ####[facility] [address] [place], [address] NEUT% Normal 47-70 [facility] Comment on above: Result Comment: Canc elled via OM: Order cancelled - Patient discharged Performed By: #### L 100.0100, L500.2500 ####[facility] [address] [place], [address] PLT Normal 150-450 [facility] Comment on above: Result Comment: Canc elled via OM: Order cancelled - Patient discharged Performed By: #### L 100.0100, L500.2500 ####[facility] [address] [place], [address] RBC Normal 4.2-5.4 [facility] Comment on above: Result Comment: Canc elled via OM: Order cancelled - Patient discharged Performed By: #### L 100.0100, L500.2500 ####[facility] [address] [place], [address] RDW CV Normal 11.6-14.6 [facility] Comment on above: Result Comment: Canc elled via OM: Order cancelled - Patient discharged Performed By: #### L 100.0100, L500.2500 ####[facility] [address] [place], [address] RDW SD Normal 35.1-43.9 [facility] Comment on above: Result Comment: Canc elled via OM: Order cancelled - Patient discharged Performed By: #### L 100.0100, L500.2500 ####[facility] [address] [place], [address] WBC Normal 4.4-11.0 [facility] Comment on above: Result Comment: Canc elled via OM: Order cancelled - Patient discharged Performed By: #### L 100.0100, L500.2500 ####[facility] [address] [place], [address] Basic Metabolic Profile (BMP )on 10-17-2024 BUN/CRE 14.7 RATIO Normal 10-20 [facility] Comment on above: Performed By: #### L 500.2500, L100.0100 ####[facility] [address] [place], [address] Calcium [Mass/Vol] 9.0 mg/dL Normal 7.6-11.0 [facility] Comment on above: Performed By: #### L 500.2500, L100.0100 ####[facility] [address] [place], [address] Chloride [Moles/Vol] 107 mmol/L Normal 98-108 [facility] Comment on above: Performed By: #### L 500.2500, L100.0100 ####[facility] [address] [place], [address] CO2 [Moles/Vol] 22.0 mmol/L Normal 21.0-32.0 [facility] Comment on above: Performed By: #### L 500.2500, L100.0100 ####[facility] [address] [place], [address] Creatinine [Mass/Vol] 0.82 mg/dL Normal 0.70-1.20 [facility] Comment on above: Performed By: #### L 500.2500, L100.0100 ####[facility] [address] [place], [address] ECRCL 66.67 ml/min Normal 50-250 [facility] Comment on above: Performed By: #### L 500.2500, L100.0100 ####[facility] [address] [place], [address] GAP 11 Normal 5-15 [facility] Comment on above: Performed By: #### L 500.2499, L100.0100 ####[facility] [address] [place], [address] GFR/1.73 sq M.predicted among non-blacks MDRD (S/P/Bld) [Vol rate/Area] 73 mL/min/{1.73_m2} Normal >60 [facility] Comment on above: Result Comment: mL/m in/1.73m2 CKD-EPI Creatinine Equation (2020) Performed By: #### L 500.2500, L100.0100 ####[facility] [address] [place], [address] Glucose [Mass/Vol] 159 mg/dL High 70-99 [facility] Comment on above: Performed By: #### L 500.2500, L100.0100 ####[facility] [address] [place], [address] Potassium [Moles/Vol] 3.8 mmol/L Normal 3.3-5.1 [facility] Comment on above: Performed By: #### L 500.2500, L100.0100 ####[facility] [address] [place], [address] Sodium [Moles/Vol] 141 mmol/L Normal 133-145 [facility] Comment on above: Performed By: #### L 500.2500, L100.0100 ####[facility] [address] [place], [address] Urea nitrogen [Mass/Vol] 12 mg/dL Normal 4-19 [facility] Comment on above: Performed By: #### L 500.2500, L100.0100 ####[facility] [address] [place], [address] Bedside Glucoseon - FINGERSTICK GLU 209 mg/dL High 74-106 [facility] Comment on above: Result Comment: GILDA GEMENT OF PATIENT CARE PER NURSING PROTOCOL Performed By: #### L 501.080 ####[facility] [address] [place], [address] FINGERSTICK GLU 157 mg/dL High 74-106 [facility] Comment on above: Result Comment: GILDA GEMENT OF PATIENT CARE PER NURSING PROTOCOL Performed By: #### L 501.080 ####[facility] [address] [place], [address] CBC W/Diff, Automatedon -0 Absolute Lymph 2.05 X10 3/uL Normal 0.83-4.51 [facility] Comment on above: Performed By: #### L 500.2500, L100.0100 ####[facility] [address] [place], [address] Absolute Neut 4.0 X10 3/uL Normal 2.0-7.7 [facility] Comment on above: Performed By: #### L 500.2500, L100.0100 ####[facility] [address] [place], [address] Basophils/100 WBC (Bld) 0.4 % Normal 0-1 [facility] Comment on above: Performed By: #### L 500.2500, L100.0100 ####[facility] [address] [place], [address] Eosinophils/100 WBC (Bld) 5.0 % Normal 0-5 [facility] Comment on above: Performed By: #### L 500.2500, L100.0100 ####[facility] [address] [place], [address] Erythrocyte distribution width (RBC) [Ratio] 15.0 % High 11.6-14.6 [facility] Comment on above: Performed By: #### L 500.2500, L100.0100 ####[facility] [address] [place], [address] Hematocrit (Bld) [Volume fraction] 37.2 % Normal 37-47 [facility] Comment on above: Performed By: #### L 500.2500, L100.0100 ####[facility] [address] [place], [address] Hemoglobin (Bld) [Mass/Vol] 12.2 g/dL Normal 12.0-15.0 [facility] Comment on above: Performed By: #### L 500.2500, L100.0100 ####[facility] [address] [place], [address] IG% 0.300 Normal 0.0-0.9 [facility] Comment on above: Result Comment: IG% - Immature Granulocytes (promyelocytes, myelocytes andmetamyelocytes) > 1% indicates that a LEFT SHIFT is Present. Performed By: #### L 500.2500, L100.0100 ####[facility] [address] [place], [address] Lymphocytes/100 WBC (Bld) 29.4 % Normal 19-41 [facility] Comment on above: Performed By: #### L 500.2500, L100.0100 ####[facility] [address] [place], [address] MCH (RBC) [Entitic mass] 27.5 pg Normal 27.0-32.0 [facility] Comment on above: Performed By: #### L 500.2500, L100.0100 ####[facility] [address] [place], [address] MCHC (RBC) [Mass/Vol] 32.8 g/dL Normal 32-36 [facility] Comment on above: Performed By: #### L 500.2500, L100.0100 ####[facility] [address] [place], [address] MCV (RBC) [Entitic vol] 84.0 fL Normal 81-99 [facility] Comment on above: Performed By: #### L 500.2500, L100.0100 ####[facility] [address] [place], [address] Monocytes/100 WBC (Bld) 7.9 % Normal 0-10 [facility] Comment on above: Performed By: #### L 500.2500, L100.0100 ####[facility] [address] [place], [address] Neutrophils/100 WBC (Bld) 57.0 % Normal 47-70 [facility] Comment on above: Performed By: #### L 500.2500, L100.0100 ####[facility] [address] [place], [address] Nucleated RBC (Bld) [#/Vol] 0 10*3/uL Normal 0-5 [facility] Comment on above: Performed By: #### L 500.2500, L100.0100 ####[facility] [address] [place], [address] Platelet mean volume (Bld) [Entitic vol] 9.8 fL Normal 6.2-12.0 [facility] Comment on above: Performed By: #### L 500.2500, L100.0100 ####[facility] [address] [place], [address] Platelets (Bld) [#/Vol] 256 10*3/uL Normal 150-450 [facility] Comment on above: Performed By: #### L 500.2500, L100.0100 ####[facility] [address] [place], [address] RBC (Bld) [#/Vol] 4.43 10*6/uL Normal 4.2-5.4 [facility] Comment on above: Performed By: #### L 500.2500, L100.0100 ####[facility] [address] [place], [address] RDW SD 45.6 fl High 35.1-43.9 [facility] Comment on above: Performed By: #### L 500.2500, L100.0100 ####[facility] [address] [place], [address] WBC (Bld) [#/Vol] 7.0 10*3/uL Normal 4.4-11.0 [facility] Comment on above: Performed By: #### L 500.2500, L100.0100 ####[facility] [address] [place], [address] Discharge Instructionon 0 Discharge Instruction Normal [facility] Basic Metabolic Profile (BMP )on 10-16-2024 BUN/CRE 12.4 RATIO Normal 10-20 [facility] Comment on above: Performed By: #### L 100.0100, L500.2500 ####[facility] [address] [place], [address] Calcium [Mass/Vol] 8.7 mg/dL Normal 7.6-11.0 [facility] Comment on above: Performed By: #### L 100.0100, L500.2500 ####[facility] [address] [place], [address] Chloride [Moles/Vol] 108 mmol/L Normal 98-108 [facility] Comment on above: Performed By: #### L 100.0100, L500.2500 ####[facility] [address] [place], [address] CO2 [Moles/Vol] 23.0 mmol/L Normal 21.0-32.0 [facility] Comment on above: Performed By: #### L 100.0100, L500.2500 ####[facility] [address] [place], [address] Creatinine [Mass/Vol] 0.79 mg/dL Normal 0.70-1.20 [facility] Comment on above: Performed By: #### L 100.0100, L500.2500 ####[facility] [address] [place], [address] ECRCL 68.34 ml/min Normal 50-250 [facility] Comment on above: Performed By: #### L 100.0100, L500.2500 ####[facility] [address] [place], [address] GAP 9 Normal 5-15 [facility] Comment on above: Performed By: #### L 100.0100, L500.2500 ####[facility] [address] [place], [address] GFR/1.73 sq M.predicted among non-blacks MDRD (S/P/Bld) [Vol rate/Area] 76 mL/min/{1.73_m2} Normal >60 [facility] Comment on above: Result Comment: mL/m in/1.73m2 CKD-EPI Creatinine Equation (2020) Performed By: #### L 100.0100, L500.2500 ####[facility] [address] [place], [address] Glucose [Mass/Vol] 170 mg/dL High 70-99 [facility] Comment on above: Performed By: #### L 100.0100, L500.2500 ####[facility] [address] [place], [address] Potassium [Moles/Vol] 3.9 mmol/L Normal 3.3-5.1 [facility] Comment on above: Performed By: #### L 100.0100, L500.2500 ####[facility] [address] [place], [address] Sodium [Moles/Vol] 140 mmol/L Normal 133-145 [facility] Comment on above: Performed By: #### L 100.0100, L500.2500 ####[facility] [address] [place], [address] Urea nitrogen [Mass/Vol] 10 mg/dL Normal 4-19 [facility] Comment on above: Performed By: #### L 100.0100, L500.2500 ####[facility] [address] [place], [address] Bedside Glucoseon 10-16-2024 FINGERSTICK GLU 166 mg/dL High 74-106 [facility] Comment on above: Result Comment: GILDA GEMENT OF PATIENT CARE PER NURSING PROTOCOL Performed By: #### L 501.080 ####[facility] [address] [place], [address] FINGERSTICK GLU 263 mg/dL High 74-106 [facility] Comment on above: Result Comment: GILDA GEMENT OF PATIENT CARE PER NURSING PROTOCOL Performed By: #### L 501.080 ####[facility] [address] [place], [address] FINGERSTICK GLU 257 mg/dL High 74-106 [facility] Comment on above: Result Comment: GILDA CLINE OF PATIENT CARE PER NURSING PROTOCOL Performed By: #### L 501.080 ####[facility] [address] [place], [address] CBC W/Diff, Automatedon 03-0 6-2024 Absolute Lymph 1.73 X10 3/uL Normal 0.83-4.51 [facility] Comment on above: Performed By: #### L 100.0100, L500.2500 ####[facility] [address] [place], [address] Absolute Neut 3.8 X10 3/uL Normal 2.0-7.7 [facility] Comment on above: Performed By: #### L 100.0100, L500.2500 ####[facility] [address] [place], [address] Basophils/100 WBC (Bld) 0.5 % Normal 0-1 [facility] Comment on above: Performed By: #### L 100.0100, L500.2500 ####[facility] [address] [place], [address] Eosinophils/100 WBC (Bld) 6.4 % High 0-5 [facility] Comment on above: Performed By: #### L 100.0100, L500.2500 ####[facility] [address] [place], [address] Erythrocyte distribution width (RBC) [Ratio] 14.9 % High 11.6-14.6 [facility] Comment on above: Performed By: #### L 100.0100, L500.2500 ####[facility] [address] [place], [address] Hematocrit (Bld) [Volume fraction] 35.4 % Low 37-47 [facility] Comment on above: Performed By: #### L 100.0100, L500.2500 ####[facility] [address] [place], [address] Hemoglobin (Bld) [Mass/Vol] 11.5 g/dL Low 12.0-15.0 [facility] Comment on above: Performed By: #### L 100.0100, L500.2500 ####[facility] [address] [place], [address] IG% 0.500 Normal 0.0-0.9 [facility] Comment on above: Result Comment: IG% - Immature Granulocytes (promyelocytes, myelocytes andmetamyelocytes) > 1% indicates that a LEFT SHIFT is Present. Performed By: #### L 100.0100, L500.2500 ####[facility] [address] [place], [address] Lymphocytes/100 WBC (Bld) 26.5 % Normal 19-41 [facility] Comment on above: Performed By: #### L 100.0100, L500.2500 ####[facility] [address] [place], [address] MCH (RBC) [Entitic mass] 27.4 pg Normal 27.0-32.0 [facility] Comment on above: Performed By: #### L 100.0100, L500.2500 ####[facility] [address] [place], [address] MCHC (RBC) [Mass/Vol] 32.5 g/dL Normal 32-36 [facility] Comment on above: Performed By: #### L 100.0100, L500.2500 ####[facility] [address] [place], [address] MCV (RBC) [Entitic vol] 84.3 fL Normal 81-99 [facility] Comment on above: Performed By: #### L 100.0100, L500.2500 ####[facility] [address] [place], [address] Monocytes/100 WBC (Bld) 8.0 % Normal 0-10 [facility] Comment on above: Performed By: #### L 100.0100, L500.2500 ####[facility] [address] [place], [address] Neutrophils/100 WBC (Bld) 58.1 % Normal 47-70 [facility] Comment on above: Performed By: #### L 100.0100, L500.2500 ####[facility] [address] [place], [address] Nucleated RBC (Bld) [#/Vol] 0 10*3/uL Normal 0-5 [facility] Comment on above: Performed By: #### L 100.0100, L500.2500 ####[facility] [address] [place], [address] Platelet mean volume (Bld) [Entitic vol] 10.1 fL Normal 6.2-12.0 [facility] Comment on above: Performed By: #### L 100.0100, L500.2500 ####[facility] [address] [place], [address] Platelets (Bld) [#/Vol] 249 10*3/uL Normal 150-450 [facility] Comment on above: Performed By: #### L 100.0100, L500.2500 ####[facility] [address] [place], [address] RBC (Bld) [#/Vol] 4.20 10*6/uL Normal 4.2-5.4 [facility] Comment on above: Performed By: #### L 100.0100, L500.2500 ####[facility] [address] [place], [address] RDW SD 45.5 fl High 35.1-43.9 [facility] Comment on above: Performed By: #### L 100.0100, L500.2500 ####[facility] [address] [place], [address] WBC (Bld) [#/Vol] 6.5 10*3/uL Normal 4.4-11.0 [facility] Comment on above: Performed By: #### L 100.0100, L500.2500 ####[facility] [address] [place], [address] Basic Metabolic Profile (BMP )on 10-15-2024 BUN/CRE 16.8 RATIO Normal 10-20 [facility] Comment on above: Performed By: #### L 100.0100, L500.2500 ####[facility] [address] [place], [address] Calcium [Mass/Vol] 8.7 mg/dL Normal 7.6-11.0 [facility] Comment on above: Performed By: #### L 100.0100, L500.2500 ####[facility] [address] [place], [address] Chloride [Moles/Vol] 108 mmol/L Normal 98-108 [facility] Comment on above: Performed By: #### L 100.0100, L500.2500 ####[facility] [address] [place], [address] CO2 [Moles/Vol] 22.0 mmol/L Normal 21.0-32.0 [facility] Comment on above: Performed By: #### L 100.0100, L500.2500 ####[facility] [address] [place], [address] Creatinine [Mass/Vol] 0.82 mg/dL Normal 0.70-1.20 [facility] Comment on above: Performed By: #### L 100.0100, L500.2500 ####[facility] [address] [place], [address] ECRCL 66.67 ml/min Normal 50-250 [facility] Comment on above: Performed By: #### L 100.0100, L500.2500 ####[facility] [address] [place], [address] GAP 10 Normal 5-15 [facility] Comment on above: Performed By: #### L 100.0100, L500.2500 ####[facility] [address] [place], [address] GFR/1.73 sq M.predicted among non-blacks MDRD (S/P/Bld) [Vol rate/Area] 73 mL/min/{1.73_m2} Normal >60 [facility] Comment on above: Result Comment: mL/m in/1.73m2 CKD-EPI Creatinine Equation (2020) Performed By: #### L 100.0100, L500.2500 ####[facility] [address] [place], [address] Glucose [Mass/Vol] 151 mg/dL High 70-99 [facility] Comment on above: Performed By: #### L 100.0100, L500.2500 ####[facility] [address] [place], [address] Potassium [Moles/Vol] 4.1 mmol/L Normal 3.3-5.1 [facility] Comment on above: Performed By: #### L 100.0100, L500.2500 ####[facility] [address] [place], [address] Sodium [Moles/Vol] 140 mmol/L Normal 133-145 [facility] Comment on above: Performed By: #### L 100.0100, L500.2500 ####[facility] [address] [place], [address] Urea nitrogen [Mass/Vol] 14 mg/dL Normal 4-19 [facility] Comment on above: Performed By: #### L 100.0100, L500.2500 ####[facility] [address] [place], [address] CBC W/Diff, Automatedon 03-0 5-5 Absolute Lymph 2.26 X10 3/uL Normal 0.83-4.51 [facility] Comment on above: Performed By: #### L 100.0100, L500.2500 ####[facility] [address] [place], [address] Absolute Neut 3.8 X10 3/uL Normal 2.0-7.7 [facility] Comment on above: Performed By: #### L 100.0100, L500.2500 ####[facility] [address] [place], [address] Basophils/100 WBC (Bld) 0.4 % Normal 0-1 [facility] Comment on above: Performed By: #### L 100.0100, L500.2500 ####[facility] [address] [place], [address] Eosinophils/100 WBC (Bld) 6.5 % High 0-5 [facility] Comment on above: Performed By: #### L 100.0100, L500.2500 ####[facility] [address] [place], [address] Erythrocyte distribution width (RBC) [Ratio] 15.0 % High 11.6-14.6 [facility] Comment on above: Performed By: #### L 100.0100, L500.2500 ####[facility] [address] [place], [address] Hematocrit (Bld) [Volume fraction] 34.8 % Low 37-47 [facility] Comment on above: Performed By: #### L 100.0100, L500.2500 ####[facility] [address] [place], [address] Hemoglobin (Bld) [Mass/Vol] 11.5 g/dL Low 12.0-15.0 [facility] Comment on above: Performed By: #### L 100.0100, L500.2500 ####[facility] [address] [place], [address] IG% 0.300 Normal 0.0-0.9 [facility] Comment on above: Result Comment: IG% - Immature Granulocytes (promyelocytes, myelocytes andmetamyelocytes) > 1% indicates that a LEFT SHIFT is Present. Performed By: #### L 100.0100, L500.2500 ####[facility] [address] [place], [address] Lymphocytes/100 WBC (Bld) 31.8 % Normal 19-41 [facility] Comment on above: Performed By: #### L 100.0100, L500.2500 ####[facility] [address] [place], [address] MCH (RBC) [Entitic mass] 27.8 pg Normal 27.0-32.0 [facility] Comment on above: Performed By: #### L 100.0100, L500.2500 ####[facility] [address] [place], [address] MCHC (RBC) [Mass/Vol] 33.0 g/dL Normal 32-36 [facility] Comment on above: Performed By: #### L 100.0100, L500.2500 ####[facility] [address] [place], [address] MCV (RBC) [Entitic vol] 84.1 fL Normal 81-99 [facility] Comment on above: Performed By: #### L 100.0100, L500.2500 ####[facility] [address] [place], [address] Monocytes/100 WBC (Bld) 7.6 % Normal 0-10 [facility] Comment on above: Performed By: #### L 100.0100, L500.2500 ####[facility] [address] [place], [address] Neutrophils/100 WBC (Bld) 53.4 % Normal 47-70 [facility] Comment on above: Performed By: #### L 100.0100, L500.2500 ####[facility] [address] [place], [address] Nucleated RBC (Bld) [#/Vol] 0 10*3/uL Normal 0-5 [facility] Comment on above: Performed By: #### L 100.0100, L500.2500 ####[facility] [address] [place], [address] Platelet mean volume (Bld) [Entitic vol] 10.0 fL Normal 6.2-12.0 [facility] Comment on above: Performed By: #### L 100.0100, L500.2500 ####[facility] [address] [place], [address] Platelets (Bld) [#/Vol] 236 10*3/uL Normal 150-450 [facility] Comment on above: Performed By: #### L 100.0100, L500.2500 ####[facility] [address] [place], [address] RBC (Bld) [#/Vol] 4.14 10*6/uL Low 4.2-5.4 [facility] Comment on above: Performed By: #### L 100.0100, L500.2500 ####[facility] [address] [place], [address] RDW SD 46.0 fl High 35.1-43.9 [facility] Comment on above: Performed By: #### L 100.0100, L500.2500 ####[facility] [address] [place], [address] WBC (Bld) [#/Vol] 7.1 10*3/uL Normal 4.4-11.0 [facility] Comment on above: Performed By: #### L 100.0100, L500.2500 ####[facility] [address] [place], [address] Basic Metabolic Profile (BMP )on 10-14-2024 BUN/CRE 19.6 RATIO Normal 10-20 [facility] Comment on above: Performed By: #### L 100.0100, L500.2500 ####[facility] [address] [place], [address] Calcium [Mass/Vol] 8.9 mg/dL Normal 7.6-11.0 [facility] Comment on above: Performed By: #### L 100.0100, L500.2500 ####[facility] [address] [place], [address] Chloride [Moles/Vol] 108 mmol/L Normal 98-108 [facility] Comment on above: Performed By: #### L 100.0100, L500.2500 ####[facility] [address] [place], [address] CO2 [Moles/Vol] 24.0 mmol/L Normal 21.0-32.0 [facility] Comment on above: Performed By: #### L 100.0100, L500.2500 ####[facility] [address] [place], [address] Creatinine [Mass/Vol] 0.84 mg/dL Normal 0.70-1.20 [facility] Comment on above: Performed By: #### L 100.0100, L500.2500 ####[facility] [address] [place], [address] ECRCL 65.09 ml/min Normal 50-250 [facility] Comment on above: Performed By: #### L 100.0100, L500.2500 ####[facility] [address] [place], [address] GAP 10 Normal 5-15 [facility] Comment on above: Performed By: #### L 100.0100, L500.2500 ####[facility] [address] [place], [address] GFR/1.73 sq M.predicted among non-blacks MDRD (S/P/Bld) [Vol rate/Area] 71 mL/min/{1.73_m2} Normal >60 [facility] Comment on above: Result Comment: mL/m in/1.73m2 CKD-EPI Creatinine Equation (2020) Performed By: #### L 100.0100, L500.2500 ####[facility] [address] [place], [address] Glucose [Mass/Vol] 119 mg/dL High 70-99 [facility] Comment on above: Performed By: #### L 100.0100, L500.2500 ####[facility] [address] [place], [address] Potassium [Moles/Vol] 4.1 mmol/L Normal 3.3-5.1 [facility] Comment on above: Performed By: #### L 100.0100, L500.2500 ####[facility] [address] [place], [address] Sodium [Moles/Vol] 142 mmol/L Normal 133-145 [facility] Comment on above: Performed By: #### L 100.0100, L500.2500 ####[facility] [address] [place], [address] Urea nitrogen [Mass/Vol] 17 mg/dL Normal 4-19 [facility] Comment on above: Performed By: #### L 100.0100, L500.2500 ####[facility] [address] [place], [address] CBC W/Diff, Automatedon 03-0 -2024 Absolute Lymph 2.38 X10 3/uL Normal 0.83-4.51 [facility] Comment on above: Performed By: #### L 100.0100, L500.2500 ####[facility] [address] [place], [address] Absolute Neut 3.5 X10 3/uL Normal 2.0-7.7 [facility] Comment on above: Performed By: #### L 100.0100, L500.2500 ####[facility] [address] [place], [address] Basophils/100 WBC (Bld) 0.6 % Normal 0-1 [facility] Comment on above: Performed By: #### L 100.0100, L500.2500 ####[facility] [address] [place], [address] Eosinophils/100 WBC (Bld) 4.4 % Normal 0-5 [facility] Comment on above: Performed By: #### L 100.0100, L500.2500 ####[facility] [address] [place], [address] Erythrocyte distribution width (RBC) [Ratio] 15.1 % High 11.6-14.6 [facility] Comment on above: Performed By: #### L 100.0100, L500.2500 ####[facility] [address] [place], [address] Hematocrit (Bld) [Volume fraction] 32.6 % Low 37-47 [facility] Comment on above: Performed By: #### L 100.0100, L500.2500 ####[facility] [address] [place], [address] Hemoglobin (Bld) [Mass/Vol] 10.8 g/dL Low 12.0-15.0 [facility] Comment on above: Performed By: #### L 100.0100, L500.2500 ####[facility] [address] [place], [address] IG% 0.300 Normal 0.0-0.9 [facility] Comment on above: Result Comment: IG% - Immature Granulocytes (promyelocytes, myelocytes andmetamyelocytes) > 1% indicates that a LEFT SHIFT is Present. Performed By: #### L 100.0100, L500.2500 ####[facility] [address] [place], [address] Lymphocytes/100 WBC (Bld) 35.2 % Normal 19-41 [facility] Comment on above: Performed By: #### L 100.0100, L500.2500 ####[facility] [address] [place], [address] MCH (RBC) [Entitic mass] 28.0 pg Normal 27.0-32.0 [facility] Comment on above: Performed By: #### L 100.0100, L500.2500 ####[facility] [address] [place], [address] MCHC (RBC) [Mass/Vol] 33.1 g/dL Normal 32-36 [facility] Comment on above: Performed By: #### L 100.0100, L500.2500 ####[facility] [address] [place], [address] MCV (RBC) [Entitic vol] 84.5 fL Normal 81-99 [facility] Comment on above: Performed By: #### L 100.0100, L500.2500 ####[facility] [address] [place], [address] Monocytes/100 WBC (Bld) 7.5 % Normal 0-10 [facility] Comment on above: Performed By: #### L 100.0100, L500.2500 ####[facility] [address] [place], [address] Neutrophils/100 WBC (Bld) 52.0 % Normal 47-70 [facility] Comment on above: Performed By: #### L 100.0100, L500.2500 ####[facility] [address] [place], [address] Nucleated RBC (Bld) [#/Vol] 0 10*3/uL Normal 0-5 [facility] Comment on above: Performed By: #### L 100.0100, L500.2500 ####[facility] [address] [place], [address] Platelet mean volume (Bld) [Entitic vol] 10.2 fL Normal 6.2-12.0 [facility] Comment on above: Performed By: #### L 100.0100, L500.2500 ####[facility] [address] [place], [address] Platelets (Bld) [#/Vol] 238 10*3/uL Normal 150-450 [facility] Comment on above: Performed By: #### L 100.0100, L500.2500 ####[facility] [address] [place], [address] RBC (Bld) [#/Vol] 3.86 10*6/uL Low 4.2-5.4 [facility] Comment on above: Performed By: #### L 100.0100, L500.2500 ####[facility] [address] [place], [address] RDW SD 46.1 fl High 35.1-43.9 [facility] Comment on above: Performed By: #### L 100.0100, L500.2500 ####[facility] [address] [place], [address] WBC (Bld) [#/Vol] 6.8 10*3/uL Normal 4.4-11.0 [facility] Comment on above: Performed By: #### L 100.0100, L500.2500 ####[facility] [address] [place], [address] 12 Lead EKGon 10-13-2024 12 Lead EKG Normal [facility] Basic Metabolic Profile (BMP )on 10-13-2024 Calcium [Mass/Vol] 9.7 mg/dL Normal 7.6-11.0 [facility] Comment on above: Performed By: #### L 500.2500, L300.4310, L300.3900, L100.0100 ####[facility] [address] [place], [address] Chloride [Moles/Vol] 97 mmol/L Low 98-108 [facility] Comment on above: Performed By: #### L 500.2500, L300.4310, L300.3900, L100.0100 ####[facility] [address] [place], [address] CO2 [Moles/Vol] 19.2 mmol/L Low 21.0-32.0 [facility] Comment on above: Performed By: #### L 500.2500, L300.4310, L300.3900, L100.0100 ####[facility] [address] [place], [address] GAP 16 High 5-15 [facility] Comment on above: Performed By: #### L 500.2500, L300.4310, L300.3900, L100.0100 ####[facility] [address] [place], [address] Potassium [Moles/Vol] 5.0 mmol/L Normal 3.3-5.1 [facility] Comment on above: Performed By: #### L 500.2500, L300.4310, L300.3900, L100.0100 ####[facility] [address] [place], [address] Sodium [Moles/Vol] 132 mmol/L Low 133-145 [facility] Comment on above: Performed By: #### L 500.2500, L300.4310, L300.3900, L100.0100 ####[facility] [address] [place], [address] CBC W/Diff, Automatedon 03-0 3-2024 Absolute Lymph 1.39 X10 3/uL Normal 0.83-4.51 [facility] Comment on above: Performed By: #### L 500.2500, L300.4310, L300.3900, L100.0100 ####[facility] [address] [place], [address] Absolute Neut 8.2 X10 3/uL High 2.0-7.7 [facility] Comment on above: Performed By: #### L 500.2500, L300.4310, L300.3900, L100.0100 ####[facility] [address] [place], [address] Basophils/100 WBC (Bld) 0.2 % Normal 0-1 [facility] Comment on above: Performed By: #### L 500.2500, L300.4310, L300.3900, L100.0100 ####[facility] [address] [place], [address] Eosinophils/100 WBC (Bld) 1.0 % Normal 0-5 [facility] Comment on above: Performed By: #### L 500.2500, L300.4310, L300.3900, L100.0100 ####[facility] [address] [place], [address] Erythrocyte distribution width (RBC) [Ratio] 14.7 % High 11.6-14.6 [facility] Comment on above: Performed By: #### L 500.2500, L300.4310, L300.3900, L100.0100 ####[facility] [address] [place], [address] Hematocrit (Bld) [Volume fraction] 37.4 % Normal 37-47 [facility] Comment on above: Performed By: #### L 500.2500, L300.4310, L300.3900, L100.0100 ####[facility] [address] [place], [address] Hemoglobin (Bld) [Mass/Vol] 11.9 g/dL Low 12.0-15.0 [facility] Comment on above: Performed By: #### L 500.2500, L300.4310, L300.3900, L100.0100 ####[facility] [address] [place], [address] IG% 0.500 Normal 0.0-0.9 [facility] Comment on above: Result Comment: IG% - Immature Granulocytes (promyelocytes, myelocytes andmetamyelocytes) > 1% indicates that a LEFT SHIFT is Present. Performed By: #### L 500.2500, L300.4310, L300.3900, L100.0100 ####[facility] [address] [place], [address] Lymphocytes/100 WBC (Bld) 13.7 % Low 19-41 [facility] Comment on above: Performed By: #### L 500.2500, L300.4310, L300.3900, L100.0100 ####[facility] [address] [place], [address] MCH (RBC) [Entitic mass] 27.1 pg Normal 27.0-32.0 [facility] Comment on above: Performed By: #### L 500.2500, L300.4310, L300.3900, L100.0100 ####[facility] [address] [place], [address] MCHC (RBC) [Mass/Vol] 31.8 g/dL Low 32-36 [facility] Comment on above: Performed By: #### L 500.2500, L300.4310, L300.3900, L100.0100 ####[facility] [address] [place], [address] MCV (RBC) [Entitic vol] 85.2 fL Normal 81-99 [facility] Comment on above: Performed By: #### L 500.2500, L300.4310, L300.3900, L100.0100 ####[facility] [address] [place], [address] Monocytes/100 WBC (Bld) 4.5 % Normal 0-10 [facility] Comment on above: Performed By: #### L 500.2500, L300.4310, L300.3900, L100.0100 ####[facility] [address] [place], [address] Neutrophils/100 WBC (Bld) 80.1 % High 47-70 [facility] Comment on above: Performed By: #### L 500.2500, L300.4310, L300.3900, L100.0100 ####[facility] [address] [place], [address] Nucleated RBC (Bld) [#/Vol] 0 10*3/uL Normal 0-5 [facility] Comment on above: Performed By: #### L 500.2500, L300.4310, L300.3900, L100.0100 ####[facility] [address] [place], [address] Platelet mean volume (Bld) [Entitic vol] 10.2 fL Normal 6.2-12.0 [facility] Comment on above: Performed By: #### L 500.2500, L300.4310, L300.3900, L100.0100 ####[facility] [address] [place], [address] Platelets (Bld) [#/Vol] 285 10*3/uL Normal 150-450 [facility] Comment on above: Performed By: #### L 500.2500, L300.4310, L300.3900, L100.0100 ####[facility] [address] [place], [address] RBC (Bld) [#/Vol] 4.39 10*6/uL Normal 4.2-5.4 [facility] Comment on above: Performed By: #### L 500.2500, L300.4310, L300.3900, L100.0100 ####[facility] [address] [place], [address] RDW SD 45.9 fl High 35.1-43.9 [facility] Comment on above: Performed By: #### L 500.2500, L300.4310, L300.3900, L100.0100 ####[facility] [address] [place], [address] WBC (Bld) [#/Vol] 10.2 10*3/uL Normal 4.4-11.0 [facility] Comment on above: Performed By: #### L 500.2500, L300.4310, L300.3900, L100.0100 ####[facility] [address] [place], [address] Emergency Department Summary on 10-13-2024 Emergency Department Summary Normal [facility] Partial Thromboplast Timeon 10-13-2024 aPTT Coag (Bld) [Time] 23.3 s Low 24.1-36.2 [facility] Comment on above: Performed By: #### L 500.2500, L300.4310, L300.3900, L100.0100 ####[facility] [address] [place], [address] Prothrombin Time w/INRon INR Coag (PPP) [Relative time] 1.0 {INR} Normal [facility] Comment on above: Performed By: #### L 500.2500, L300.4310, L300.3900, L100.0100 ####[facility] [address] [place], [address] PT Coag (PPP) [Time] 13.4 s Normal 11.7-14.9 [facility] Comment on above: Performed By: #### L 500.2500, L300.4310, L300.3900, L100.0100 ####[facility] [address] [place], [address] Urine Cultureon 10-10-2024 URC Normal [facility] Comment on above: Performed By: #### M 100.2200 ####[facility] [address] [place], [address] L/S Spine Min 4 Viewson 09-14 L/S Spine Min 4 Views Normal [facility] MR/BMS.BPon 09-05-2024 MR/BMS.BP Normal [facility] SCRN MAMM (CAD)W/MANPREET BILATo n 09-04-2024 SCRN MAMM (CAD)W/MANPREET BILAT Normal [facility] Urine Cultureon 09-04-2024 URC Normal [facility] Comment on above: Performed By: #### M 100.2200 ####[facility] [address] [place], [address] MR/BMS.BPon 06-11-2024 MR/BMS.BP Normal [facility] Re-Evaluation - PT (1)on Re-Evaluation - PT (1) Normal [facility] Neurology Visit Reporton Neurology Visit Report Normal [facility] CBC W/Diff, Automatedon 10-0 Absolute Lymph 1.97 X10 3/uL Normal 0.83-4.51 [facility] Comment on above: Performed By: #### L 100.0100, L500.4050, L506.1000, L501.9520 ####[facility] [address] [place], [address] Absolute Neut 4.7 X10 3/uL Normal 2.0-7.7 [facility] Comment on above: Performed By: #### L 100.0100, L500.4050, L506.1000, L501.9520 ####[facility] [facility] [address] [place], [address] Basophils/100 WBC (Bld) 0.4 % Normal 0-1 [facility] Comment on above: Performed By: #### L 100.0100, L500.4050, L506.1000, L501.9520 ####[facility] [address] [place], [address] Eosinophils/100 WBC (Bld) 4.4 % Normal 0-5 [facility] Comment on above: Performed By: #### L 100.0100, L500.4050, L506.1000, L501.9520 ####[facility] [address] [place], [address] Erythrocyte distribution width (RBC) [Ratio] 14.7 % High 11.6-14.6 [facility] Comment on above: Performed By: #### L 100.0100, L500.4050, L506.1000, L501.9520 ####[facility] [address] [place], [address] Hematocrit (Bld) [Volume fraction] 42.0 % Normal 37-47 [facility] Comment on above: Performed By: #### L 100.0100, L500.4050, L506.1000, [id number] ####[facility] [address] [place], [address] Hemoglobin (Bld) [Mass/Vol] 13.4 g/dL Normal 12.0-15.0 [facility] Comment on above: Performed By: #### L 100.0100, L500.4050, L506.1000, L501.9520 ####[facility] [address] [place], [address] IG% 0.400 Normal 0.0-0.9 [facility] Comment on above: Result Comment: IG% - Immature Granulocytes (promyelocytes, myelocytes andmetamyelocytes) > 1% indicates that a LEFT SHIFT is Present. Performed By: #### L 100.0100, L500.4050, L506.1000, L501.9520 ####[facility] [address] [place], [address] Lymphocytes/100 WBC (Bld) 26.3 % Normal 19-41 [facility] Comment on above: Performed By: #### L 100.0100, L500.4050, L506.1000, [id number] ####[facility] [address] [place], [address] MCH (RBC) [Entitic mass] 27.0 pg Normal 27.0-32.0 [facility] Comment on above: Performed By: #### L 100.0100, L500.4050, L506.1000, L501.9520 ####[facility] [address] [place], [address] MCHC (RBC) [Mass/Vol] 31.9 g/dL Low 32-36 [facility] Comment on above: Performed By: #### L 100.0100, L500.4050, L506.1000, L501.9520 ####[facility] [address] [place], [address] MCV (RBC) [Entitic vol] 84.7 fL Normal 81-99 [facility] Comment on above: Performed By: #### L 100.0100, L500.4050, L506.1000, L501.9520 ####[facility] [address] [place], [address] Monocytes/100 WBC (Bld) 6.1 % Normal 0-10 [facility] Comment on above: Performed By: #### L 100.0100, L500.4050, L506.1000, L501.9520 ####[facility] [address] [place], [address] Neutrophils/100 WBC (Bld) 62.4 % Normal 47-70 [facility] Comment on above: Performed By: #### L 100.0100, L500.4050, L506.1000, L501.9520 ####[facility] [address] [place], [address] Nucleated RBC (Bld) [#/Vol] 0 10*3/uL Normal 0-5 [facility] Comment on above: Performed By: #### L 100.0100, L500.4050, L506.1000, L501.9520 ####[facility] [address] [place], [address] Platelet mean volume (Bld) [Entitic vol] 10.0 fL Normal 6.2-12.0 [facility] Comment on above: Performed By: #### L 100.0100, L500.4050, L506.1000, L501.9520 ####[facility] [address] [place], [address] Platelets (Bld) [#/Vol] 284 10*3/uL Normal 150-450 [facility] Comment on above: Performed By: #### L 100.0100, L500.4050, L506.1000, L501.9520 ####[facility] [address] [place], [address] RBC (Bld) [#/Vol] 4.96 10*6/uL Normal 4.2-5.4 [facility] Comment on above: Performed By: #### L 100.0100, L500.4050, L506.1000, L501.9520 ####[facility] [address] [place], [address] RDW SD 45.0 fl High 35.1-43.9 [facility] Comment on above: Performed By: #### L 100.0100, L500.4050, L506.1000, L501.9520 ####[facility] [address] [place], [address] WBC (Bld) [#/Vol] 7.5 10*3/uL Normal 4.4-11.0 [facility] Comment on above: Performed By: #### L 100.0100, L500.4050, L506.1000, L501.9520 ####[facility] [address] [place], [address] Comprehensive Metabolic [facility] 05-14-2024 Albumin [Mass/Vol] 3.4 g/dL Normal 3.2-5.0 [facility] Comment on above: Performed By: #### L 100.0100, L500.4050, L506.1000, L501.9520 ####[facility] [address] [place], [address] Albumin/Globulin [Mass ratio] 0.9 {ratio} Normal 0.9-2.4 [facility] Comment on above: Performed By: #### L 100.0100, L500.4050, L506.1000, L501.9520 ####[facility] [address] [place], [address] ALK P 66 U/L Normal 45-117 [facility] Comment on above: Performed By: #### L 100.0100, L500.4050, L506.1000, L501.9520 ####[facility] [address] [place], [address] ALT [Catalytic activity/Vol] 26 U/L Normal 13-56 [facility] Comment on above: Performed By: #### L 100.0100, L500.4050, L506.1000, L501.9520 ####[facility] [address] [place], [address] AST [Catalytic activity/Vol] 19 U/L Normal 15-37 [facility] Comment on above: Performed By: #### L 100.0100, L500.4050, L506.1000, L501.9520 ####[facility] [address] [place], [address] Bilirubin [Mass/Vol] 0.50 mg/dL Normal 0.20-1.00 [facility] Comment on above: Result Comment: For patients on eltrombopag therapy, use of Dimension [place] TBIL is not recommended. Performed By: #### L 100.0100, L500.4050, L506.1000, L501.9520 ####[facility] [address] [place], [address] BUN/CRE 13.3 RATIO Normal 10-20 [facility] Comment on above: Performed By: #### L 100.0100, L500.4050, L506.1000, L501.9520 ####[facility] [address] [place], [address] CA,Total 9.6 mg/dL Normal 8.5-10.1 [facility] Comment on above: Performed By: #### L 100.0100, L500.4050, L506.1000, L501.9520 ####[facility] [address] [place], [address] Chloride [Moles/Vol] 106 mmol/L Normal 98-107 [facility] Comment on above: Performed By: #### L 100.0100, L500.4050, L506.1000, L501.9520 ####[facility] [address] [place], [address] CO2 [Moles/Vol] 25.0 mmol/L Normal 21.0-32.0 [facility] Comment on above: Performed By: #### L 100.0100, L500.4050, L506.1000, L501.9520 ####[facility] [address] [place], [address] Creatinine [Mass/Vol] 1.20 mg/dL High 0.55-1.02 [facility] Comment on above: Result Comment: The validity of the calculated GFR GFRAA in patients over70 years has not been determined. Clinical correlation isessential. Performed By: #### L 100.0100, L500.4050, L506.1000, L501.9520 ####[facility] [address] [place], [address] EST GFR - AA 56 mL/min Low >60 [facility] Comment on above: Result Comment: Afri can [place] GFR Calc Performed By: #### L 100.0100, L500.4050, L506.1000, L501.9520 ####[facility] [address] [place], [address] GAP 8 Normal 5-15 [facility] Comment on above: Performed By: #### L 100.0100, L500.4050, L506.1000, L501.9520 ####[facility] [address] [place], [address] GFR/1.73 sq M.predicted among non-blacks MDRD (S/P/Bld) [Vol rate/Area] 46 mL/min/{1.73_m2} Low >60 [facility] Comment on above: Result Comment: Non- GFR Calc Performed By: #### L 100.0100, L500.4050, L506.1000, L501.9520 ####[facility] [address] [place], [address] Globulin (S) [Mass/Vol] 3.7 g/dL Normal 2.2-4.2 [facility] Comment on above: Performed By: #### L 100.0100, L500.4050, L506.1000, L501.9520 ####[facility] [address] [place], [address] Glucose [Mass/Vol] 182 mg/dL High 74-106 [facility] Comment on above: Result Comment: Fast ing Glucose result greater than or equal to 126 mg/dLsuggests DIABETES MELLITUS per A.D.A. criteria. Performed By: #### L 100.0100, L500.4050, L506.1000, L501.9520 ####[facility] [address] [place], [address] Potassium [Moles/Vol] 4.7 mmol/L Normal 3.5-5.1 [facility] Comment on above: Performed By: #### L 100.0100, L500.4050, L506.1000, L501.9520 ####[facility] [address] [place], [address] Sodium [Moles/Vol] 138 mmol/L Normal 136-145 [facility] Comment on above: Performed By: #### L 100.0100, L500.4050, L506.1000, L501.9520 ####[facility] [address] [place], [address] T PROT 7.1 g/dL Normal 6.4-8.2 [facility] Comment on above: Performed By: #### L 100.0100, L500.4050, L506.1000, L501.9520 ####[facility] [address] [place], [address] Urea nitrogen [Mass/Vol] 16 mg/dL Normal 7-18 [facility] Comment on above: Performed By: #### L 100.0100, L500.4050, L506.1000, L501.9520 ####[facility] [address] [place], [address] Thyroid Stim Hormone (TSH)on 05-14-2024 TSH 0.468 uIU/mL Normal 0.358-3.740 [facility] Comment on above: Performed By: #### L 100.0100, L500.4050, L506.1000, L501.9520 ####[facility] [address] [place], [address] Vitamin D,25 Hydroxyon 05-14 Vitamin D 25-OH 56.7 ng/mL Normal [facility] Comment on above: Result Comment: Tawana min D 25(OH) Status Range Deficiency <20 ng/mL (50nmol/L) Insufficiency 20 - 30 ng/mL (50 - 75 nmol/L) Sufficiency 30 - 100 ng/mL (75 - 250 nmol/L) Toxicity >100 ng/mL (>250 nmol/L) Performed By: #### L 100.0100, L500.4050, L506.1000, L501.9520 ####[facility] [address] [place], [address] Re-Evaluation - PT (1)on Re-Evaluation - PT (1) Normal [facility] MR/BMS.BPon 03-26-2024 MR/BMS.BP Normal [facility] Inital Evaluation (1) - PTon 03-12-2024 Inital Evaluation (1) - PT Normal [facility] Urine Cultureon 03-06-2024 URC Normal [facility] Comment on above: Performed By: #### M 100.2200 ####[facility] [address] [place], [address] CNOVon 11-16-2023 CNOV Office Visit (PODIWS) DAVIDARACELY Katelynn ([id number]) 1945 F Date Time Provider Department 11/16/23 11:30 AM AGA GARCIA PODIWS During your visit today, we recorded the following information about you: Dee Schulte, RN 11/16/2023 12:51 PM Signed Patient presents with: Left Foot - Established Patient, Follow Up, Pain, Diabetic Foot Check Right Foot - Established Patient, Follow Up, Diabetic Foot Check Patient presents for follow up diabetic foot care and due for diabetic foot exam and left big toe pain that has been intermittent over the last few months. YANELI- 10/24/22 Aga Garcia 11/16/2023 12:51 PM Signed Subjective: This 78 year old female presents to clinic for diabetic foot check. Patient has the following complaints: left great toe pain. Patient complains of intermittent pain in left great toe. Patient states the pain is intermittent but when present, usually is at night. She states that over the last few weeks, she has been less active and therefore, the pain has not been as bad. Patient admits to being diabetic for multiple years now. Patient +B/T/N in feet at this time. Patient -pain in legs when walking. No other pedal complaints at this time. No change in medications or medical history since last visit. PAIN EVALUATION 11/15/2023 0032 Pain Location: Toe Duration Amount of Time: 10 Duration Units: Hours Frequency: Intermittent Hemoglobin A1C (%) Date Value 08/05/2019 7.7 01/27/2019 7.1 09/18/2018 7.7 03/13/2018 7.6 12/07/2017 8.2 PCP: No primary care provider on file. PAST MEDICAL HISTORY Diagnosis Date Cataract 02/22 s/p surgery DDD (degenerative disc disease), lumbar Dr. Munson Depression Dr. Smith Diastolic dysfunction 02/19 LVH also Essential hypertension, benign 1985 GERD (gastroesophageal reflux disease) Hypervitaminosis B6 Hypothyroidism 05/26 Lumbar disc disease 2005 s/p Laminectomy L4-5 Mixed hyperlipidemia OA (osteoarthritis) of knee s/p Euflexa, Seeing Dr. 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 S/P bariatric surgery 2008 gastric sleeve. Lost 80lbs Sleep apnea DME [facility] for AutoPAP Type II or unspecified type diabetes mellitus without mention of complication, not stated as uncontrolled 1986 Vitamin D deficiency Current Outpatient Medications Medication Sig clotrimazole-betamet hasone (LOTRISONE) cream 1 APPLICATION 2 TIMES DAILY DIRECTED hydrOXYzine HCl (ATARAX) 50 mg tablet Take 50 mg by mouth. 1 tab every 6 hours rosuvastatin 40 mg cpSP levothyroxine (SYNTHROID) 88 mcg tablet buPROPion XL (WELLBUTRIN XL) 300 mg 24 hr tablet take 1 tablet by mouth once daily pregabalin (LYRICA) 75 mg capsule Take 1 capsule by mouth three times daily. pantoprazole DR (PROTONIX) 40 mg tablet Take 1 tablet by mouth once daily. metFORMIN (GLUCOPHAGE) 1,000 mg tablet Take 1 tablet by mouth twice daily with meals. Lancets lancets Test blood sugar(s) 1-2 times daily. Dx: Type 2 DM - Controlled E11.9 Insulin: No blood sugar diagnostic (BLOOD GLUCOSE TEST) test strip Test blood sugar(s) 1-2 times daily. Dx: Type 2 DM - Controlled E11.9 Insulin: No lisinopril (ZESTRIL, PRINIVIL) 5 mg tablet Take 1 tablet by mouth once daily. Cholecalciferol, Vitamin D3, 2,000 unit tab Take 1-2 tablets by mouth once daily. Magnesium Oxide 500 mg ORAL Tab Take 500 mg by mouth once daily. calcium citrate/vitamin d3(CALCIUM CITRATE + 315 MG-200 UNIT TAB) one tab once a day DULoxetine (CYMBALTA) 30 mg capsule Take 1 capsule by mouth once daily. (Patient not taking: Reported on 10/24/2022) meloxicam (MOBIC) 7.5 mg tablet Take 7.5 mg by mouth once daily. aspirin, enteric coated (ASPIRIN, ENTERIC COATED) 81 mg EC tablet Take 1 tablet by mouth once daily. simvastatin (ZOCOR) 40 mg tablet Take 1 tablet by mouth once daily. glipiZIDE (GLUCOTROL) 5 mg tablet Take 1 tablet by mouth once daily. levothyroxine (SYNTHROID) 75 mcg tablet Take 1 tablet by mouth once daily. diclofenac sodium (VOLTAREN) 1 % topical gel Apply 2 g to affected area four times daily. (Patient not taking: Reported on 10/24/2022) CPAP AutoPAP 5-10 cmH2O with heated humidity and close clinical follow up with data download after several weeks to ensure that pressures are appropriate. Mask (per patient preference) optional chin strap (if indicated) , filters, tubing, humidifier and lifetime supplies. (A standard size ResMed AirFit N10 nasal mask without chin strap was used for study). cyclobenzaprine (FLEXERIL) 5 mg tablet Take 1 tablet by mouth twice daily as needed. POTASSIUM 99 MG TAB Take one(1) tablet daily. No current facility-administere d medications for this visit. ALLERGIES Allergen Reactions Nucynta [Tapentadol] GI Upset (more content not included)... Normal [facility] XR FOOT 3V AP/LAT/OBL LTon 0 11-16-2023 XR FOOT 3V AP/LAT/OBL LT * * *Final Report* * * DATE OF EXAM: Nov 16 2023 12:41PM WRX [id number] - XR FOOT 3V AP/LAT/OBL LT / PROCEDURE REASON: Arthritis of foot * * * * Physician Interpretation * * * * PROCEDURE: Left foot INDICATION: Arthritis of foot .Left great toe pain intermittent over the last several months without injury TECHNIQUE: XR FOOT 3V AP/LAT/OBL LT COMPARISON: 10/24/2022 FINDINGS: Mild 1st MTP joint osteoarthrosis, unchanged. No erosion or focal soft tissue swelling. No fracture. Small plantar calcaneal spur. IMPRESSION: No acute abnormality Lacquer Shader: GÓMEZ Transcribe Date/Time: Nov 21 2023 10:38A Dictated by : PATRICA WEST MD This examination was interpreted and the report reviewed and electronically signed by: PATRICA WEST MD on Nov 21 2023 10:40AM EST [id number] Normal [facility] Absolute lymphocyte countOrd ered By: Sumit Whipple on 11-07-2023 Lymphocytes Auto (Unsp spec) [#/Vol] 2.51 10*3/uL 0.83-4.51 [facility] Automated lymphocyte count a s percentage of total leukocytesOrdered By: Sumit Whipple on 11-07-2023 Lymphocytes/100 WBC Auto (Unsp spec) 32.1 % 19-41 [facility] Bacteria identified Cx Nom ( Wound)Ordered By: Sumit Whipple on 11-07-2023 Wound Culture Escherichia coli [facility] Wound Culture Enterococcus faecalis [facility] Basophil percentageOrdered B y: Sumit Whipple on 11-07-2023 Basophils/100 WBC (Bld) 0.3 % 0-1 [facility] Bilirubin [Mass/Vol] 0.40 mg/dL 0.20-1.00 [facility] Comment on above: For patients on eltr ombopag therapy, use of Dimension [place] TBIL is not recommended. Chloride [Moles/Vol] 102 mmol/L 98-107 [facility] Eosinophils/100 WBC (Bld) 3.4 % 0-5 [facility] Glucose [Mass/Vol] 187 mg/dL 74-106 [facility] Comment on above: Fasting Glucose resu lt greater than or equal to 126 mg/dL suggests DIABETES MELLITUS per A.D.A. criteria. Hemoglobin (Bld) [Mass/Vol] 13.0 g/dL 12.0-15.0 [facility] Monocytes/100 WBC (Bld) 7.8 % 0-10 [facility] Neutrophils (Bld) [#/Vol] 4.4 10*3/uL 2.0-7.7 [facility] Neutrophils/100 WBC (Bld) 56.1 % 47-70 [facility] Potassium [Moles/Vol] 4.0 mmol/L 3.5-5.1 [facility] Protein [Mass/Vol] 6.6 g/dL 6.4-8.2 [facility] Sodium [Moles/Vol] 135 mmol/L 136-145 [facility] WBC (Bld) [#/Vol] 7.8 10*3/uL 4.4-11.0 [facility] Determination of erythrocyte mean corpuscular volume (MCV)Ordered By: Sumit Whipple on 11-07-2023 MCV (RBC) [Entitic vol] 83.2 fL 81-99 [facility] Erythrocyte distribution wid th ratioOrdered By: Sumit Whipple on 11-07-2023 Erythrocyte distribution width (RBC) [Ratio] 14.3 % 11.6-14.6 [facility] Erythrocyte distribution wid th standard deviationOrdered By: Sumit Whipple on 11-07-2023 Erythrocyte distribution width (RBC) [Entitic vol] 43.2 fL 35.1-43.9 [facility] Gram stain for investigation of transfusion reactionOrdered By: Sumit Whipple on 11-07-2023 Microscopic observation Gram stain Nom (Unsp spec) [facility] Hematocrit Auto (Bld) [Volum e fraction]Ordered By: Sumit Whipple on 11-07-2023 Hematocrit (Bld) [Volume fraction] 40.5 % 37-47 [facility] Immature granulocytes/100 WB C Auto (Bld)Ordered By: Sumit Whipple on 11-07-2023 Immature granulocytes/100 WBC (Bld) 0.300 % 0.0-0.9 [facility] Comment on above: IG% - Immature Granu locytes (promyelocytes, myelocytes and metamyelocytes) > 1% indicates that a LEFT SHIFT is Present. Laboratory - Chemistry and C hemistry - challengeOrdered By: Sumit Whipple on 11-07-2023 Albumin/Globulin [Mass ratio] 0.7 {ratio} 0.9-2.4 [facility] ALP [Catalytic activity/Vol] 76 U/L 45-117 [facility] ALT [Catalytic activity/Vol] 21 U/L 13-56 [facility] CO2 [Moles/Vol] 28.0 mmol/L 21.0-32.0 [facility] Globulin (S) [Mass/Vol] 3.8 g/dL 2.2-4.2 [facility] Urea nitrogen/Creatinine [Mass ratio] 14.6 mg/mg 10-20 [facility] Laboratory - Hematology and Cell countsOrdered By: Sumit Whipple on 11-07-2023 MCH (RBC) [Entitic mass] 26.7 pg 27.0-32.0 [facility] MCHC (RBC) [Mass/Vol] 32.1 g/dL 32-36 [facility] Nucleated RBC/100 WBC (Bld) [Ratio] 0 % 0-5 [facility] Platelet mean volume (Bld) [Entitic vol] 9.9 fL 6.2-12.0 [facility] Platelets (Bld) [#/Vol] 303 10*3/uL 150-450 [facility] No Panel InformationOrdered By: Sumit Whipple on 11-07-2023 Methicillin-Resist S.aureus DNA PCR Negative Negative [facility] Estimated GFR (MDRD) Amer 79 mL/min >60 [facility] Comment on above: GFR Calc Estimated GFR (MDRD) Non-Af Amer 65 mL/min >60 [facility] Comment on above: Non- GFR Calc Vitamin D 25-Hydroxy 57.4 ng/mL [facility] Comment on above: Vitamin D 25(OH) Sta tus Range Deficiency <20 ng/mL (50nmol/L) Insufficiency 20 - 30 ng/mL (50 - 75 nmol/L) Sufficiency 30 - 100 ng/mL (75 - 250 nmol/L) Toxicity >100 ng/mL (>250 nmol/L) RBC Auto (Bld) [#/Vol]Ordere d By: Sumit Whipple on 11-07-2023 RBC (Bld) [#/Vol] 4.87 10*6/uL 4.2-5.4 [facility] Serum or plasma calcium dot urement (mass/volume)Ordered By: Sumit Whipple on 11-07-2023 Calcium [Mass/Vol] 9.1 mg/dL 8.5-10.1 [facility] Serum or plasma creatinine m easurement (mass/volume)Ordered By: Sumit Whipple on 11-07-2023 Creatinine [Mass/Vol] 0.89 mg/dL 0.55-1.02 [facility] Comment on above: The validity of the calculated GFR & GFRAA in patients over 70 years has not been determined. Clinical correlation is essential. Serum or plasma thyroid stim ulating hormone (TSH) measurement (units/volume)Ordered By: Sumit Whipple on 11-07-2023 TSH Qn 7.89 uIU/mL 0.358-3.74 [facility] Serum or plasma urea nitroge n measurement (mass/volume)Ordered By: Sumit Whipple on 11-07-2023 Urea nitrogen [Mass/Vol] 13 mg/dL 7-18 [facility] Staphylococcus aureus DNA de tection by probe and target amplification methodOrdered By: Sumit Whipple on 11-07-2023 S. aureus DNA ZUNILDA+probe Ql (Unsp spec) Negative Negative [facility] Thin prep Papanicolaou smear with manual screeningOrdered By: Sumit Whipple on 11-07-2023 Thin prep Papanicolaou smear with manual screening 2.8 g/dL 3.2-5.0 [facility] Thin prep Papanicolaou smear with manual screening 12 U/L 15-37 [facility] Thin prep Papanicolaou smear with manual screening 5 5-15 [facility] Absolute lymphocyte countOrd ered By: Sumit Whipple on 07-17-2023 Lymphocytes Auto (Unsp spec) [#/Vol] 2.12 10*3/uL 0.83-4.51 [facility] Basophil percentageOrdered B y: Sumit Sarabjit on 07-17-2023 Basophils/100 WBC (Bld) 0.6 % 0-1 [facility] Bilirubin [Mass/Vol] 0.50 mg/dL 0.20-1.00 [facility] Comment on above: For patients on eltr ombopag therapy, use of Dimension [place] TBIL is not recommended. Chloride [Moles/Vol] 101 mmol/L 98-107 [facility] Eosinophils/100 WBC (Bld) 3.0 % 0-5 [facility] Glucose [Mass/Vol] 136 mg/dL 74-106 [facility] Comment on above: Fasting Glucose resu lt greater than or equal to 126 mg/dL suggests DIABETES MELLITUS per A.D.A. criteria. Neutrophils (Bld) [#/Vol] 3.6 10*3/uL 2.0-7.7 [facility] Neutrophils/100 WBC (Bld) 55.4 % 47-70 [facility] Potassium [Moles/Vol] 4.5 mmol/L 3.5-5.1 [facility] Protein [Mass/Vol] 6.5 g/dL 6.4-8.2 [facility] Sodium [Moles/Vol] 134 mmol/L 136-145 [facility] WBC (Bld) [#/Vol] 6.4 10*3/uL 4.4-11.0 [facility] Blood erythrocytes count (nu mber/volume)Ordered By: Sumit Whipple on 07-17-2023 RBC (Bld) [#/Vol] 4.51 10*6/uL 4.2-5.4 [facility] Blood hemoglobin measurement (mass/volume)Ordered By: Sumit Whipple on 07-17-2023 Hemoglobin (Bld) [Mass/Vol] 12.2 g/dL 12.0-15.0 [facility] Blood lymphocytes/100 leukoc ytesOrdered By: Sumit Whipple on 07-17-2023 Lymphocytes/100 WBC (Bld) 33.1 % 19-41 [facility] Blood monocytes/100 leukocyt esOrdered By: Sumit Whipple on 07-17-2023 Monocytes/100 WBC (Bld) 7.6 % 0-10 [facility] Blood platelet mean volumeOr dered By: Sumit Whipple on 07-17-2023 Platelet mean volume (Bld) [Entitic vol] 9.5 fL 6.2-12.0 [facility] Culture, urineOrdered By: Desmond Whipple on 07-17-2023 Bacteria identified Cx Nom (U) Culture exhibits no growth. [facility] Bacteria identified Cx Nom (U) Culture exhibits no growth. [facility] Determination of erythrocyte mean corpuscular volume (MCV)Ordered By: Sumit Whipple on 07-17-2023 MCV (RBC) [Entitic vol] 85.1 fL 81-99 [facility] Hematocrit Auto (Bld) [Volum e fraction]Ordered By: Sumit Whipple on 07-17-2023 Hematocrit (Bld) [Volume fraction] 38.4 % 37-47 [facility] Laboratory - Chemistry and C hemistry - challengeOrdered By: Sumit Whipple on 07-17-2023 ALP [Catalytic activity/Vol] 55 U/L 45-117 [facility] ALT [Catalytic activity/Vol] 26 U/L 13-56 [facility] CO2 [Moles/Vol] 28.0 mmol/L 21.0-32.0 [facility] Globulin (S) [Mass/Vol] 3.2 g/dL 2.2-4.2 [facility] Urea nitrogen/Creatinine [Mass ratio] 13.2 mg/mg 10-20 [facility] Laboratory - Hematology and Cell countsOrdered By: Sumit Whipple on 07-17-2023 Erythrocyte distribution width (RBC) [Entitic vol] 44.7 fL 35.1-43.9 [facility] Erythrocyte distribution width (RBC) [Ratio] 14.4 % 11.6-14.6 [facility] Immature granulocytes/100 WBC (Bld) 0.300 % 0.0-0.9 [facility] Comment on above: IG% - Immature Granu locytes (promyelocytes, myelocytes and metamyelocytes) > 1% indicates that a LEFT SHIFT is Present. MCH (RBC) [Entitic mass] 27.1 pg 27.0-32.0 [facility] Nucleated RBC/100 WBC (Bld) [Ratio] 0 % 0-5 [facility] MCHC Auto (RBC) [Mass/Vol]Or dered By: Sumit Whipple on 07-17-2023 MCHC (RBC) [Mass/Vol] 31.8 g/dL 32-36 [facility] No Panel InformationOrdered By: Sumit Whipple on 07-17-2023 Estimated GFR (MDRD) Amer 70 mL/min >60 [facility] Comment on above: GFR Calc Estimated GFR (MDRD) Non-Af Amer 58 mL/min >60 [facility] Comment on above: Non- GFR Calc Platelets bldOrdered By: Sumit Whipple on 07-17-2023 Platelets (Bld) [#/Vol] 307 10*3/uL 150-450 [facility] Serum or plasma albumin dot urement (mass/volume)Ordered By: Sumit Whipple on 07-17-2023 Albumin [Mass/Vol] 3.3 g/dL 3.2-5.0 [facility] Serum or plasma albumin/glob ulin mass ratioOrdered By: Sumit Whipple on 07-17-2023 Albumin/Globulin [Mass ratio] 1.0 {ratio} 0.9-2.4 [facility] Serum or plasma calcium dot urement (mass/volume)Ordered By: Sumit Whipple on 07-17-2023 Calcium [Mass/Vol] 8.9 mg/dL 8.5-10.1 [facility] Serum or plasma creatinine m easurement (mass/volume)Ordered By: Sumit Whipple on 07-17-2023 Creatinine [Mass/Vol] 0.99 mg/dL 0.55-1.02 [facility] Comment on above: The validity of the calculated GFR & GFRAA in patients over 70 years has not been determined. Clinical correlation is essential. Serum or plasma urea nitroge n measurement (mass/volume)Ordered By: Sumit Whipple on 07-17-2023 Urea nitrogen [Mass/Vol] 13 mg/dL 7-18 [facility] Thin prep Papanicolaou smear with manual screeningOrdered By: Sumit Whipple on 07-17-2023 Thin prep Papanicolaou smear with manual screening 16 U/L 15-37 [facility] Thin prep Papanicolaou smear with manual screening 5 5-15 [facility] Absolute lymphocyte countOrd ered By: Sumit Whipple on 05-09-2023 Lymphocytes Auto (Unsp spec) [#/Vol] 1.86 10*3/uL 0.83-4.51 [facility] Basophil percentageOrdered B y: Sumit Whipple on 05-09-2023 Basophils/100 WBC (Bld) 0.5 % 0-1 [facility] Bilirubin [Mass/Vol] 0.40 mg/dL 0.20-1.00 [facility] Comment on above: For patients on eltr ombopag therapy, use of Dimension [place] TBIL is not recommended. Chloride [Moles/Vol] 105 mmol/L 98-107 [facility] Eosinophils/100 WBC (Bld) 2.9 % 0-5 [facility] Glucose [Mass/Vol] 113 mg/dL 74-106 [facility] Comment on above: Fasting Glucose resu lt from 100 to 125 mg/dL suggests IMPAIRED HOMEOSTASIS per A.D.A. criteria. Neutrophils (Bld) [#/Vol] 3.4 10*3/uL 2.0-7.7 [facility] Neutrophils/100 WBC (Bld) 57.3 % 47-70 [facility] Potassium [Moles/Vol] 4.5 mmol/L 3.5-5.1 [facility] Protein [Mass/Vol] 6.6 g/dL 6.4-8.2 [facility] Sodium [Moles/Vol] 137 mmol/L 136-145 [facility] WBC (Bld) [#/Vol] 5.9 10*3/uL 4.4-11.0 [facility] Blood erythrocytes count (nu mber/volume)Ordered By: Sumit Whipple on 05-09-2023 RBC (Bld) [#/Vol] 4.27 10*6/uL 4.2-5.4 [facility] Blood hemoglobin measurement (mass/volume)Ordered By: Sumit Whipple on 05-09-2023 Hemoglobin (Bld) [Mass/Vol] 12.0 g/dL 12.0-15.0 [facility] Blood lymphocytes/100 leukoc ytesOrdered By: Sumit Whipple on 05-09-2023 Lymphocytes/100 WBC (Bld) 31.5 % 19-41 [facility] Blood monocytes/100 leukocyt esOrdered By: Sumit Whipple on 05-09-2023 Monocytes/100 WBC (Bld) 7.6 % 0-10 [facility] Blood platelet mean volumeOr dered By: Sumit Whipple on 05-09-2023 Platelet mean volume (Bld) [Entitic vol] 9.5 fL 6.2-12.0 [facility] Determination of erythrocyte mean corpuscular volume (MCV)Ordered By: Sumit Whipple on 05-09-2023 MCV (RBC) [Entitic vol] 84.5 fL 81-99 [facility] Hematocrit Auto (Bld) [Volum e fraction]Ordered By: Sumit Whipple on 05-09-2023 Hematocrit (Bld) [Volume fraction] 36.1 % 37-47 [facility] Laboratory - Chemistry and C hemistry - challengeOrdered By: Sumit Whipple on 05-09-2023 ALP [Catalytic activity/Vol] 51 U/L 45-117 [facility] ALT [Catalytic activity/Vol] 32 U/L 13-56 [facility] CO2 [Moles/Vol] 27.0 mmol/L 21.0-32.0 [facility] Globulin (S) [Mass/Vol] 3.2 g/dL 2.2-4.2 [facility] Urea nitrogen/Creatinine [Mass ratio] 25.5 mg/mg 10-20 [facility] Laboratory - Hematology and Cell countsOrdered By: Sumit Whipple on 05-09-2023 Erythrocyte distribution width (RBC) [Entitic vol] 45.7 fL 35.1-43.9 [facility] Erythrocyte distribution width (RBC) [Ratio] 14.8 % 11.6-14.6 [facility] Immature granulocytes/100 WBC (Bld) 0.200 % 0.0-0.9 [facility] Comment on above: IG% - Immature Granu locytes (promyelocytes, myelocytes and metamyelocytes) > 1% indicates that a LEFT SHIFT is Present. MCH (RBC) [Entitic mass] 28.1 pg 27.0-32.0 [facility] Nucleated RBC/100 WBC (Bld) [Ratio] 0 % 0-5 [facility] MCHC Auto (RBC) [Mass/Vol]Or dered By: Sumit Whipple on 05-09-2023 MCHC (RBC) [Mass/Vol] 33.2 g/dL 32-36 [facility] No Panel InformationOrdered By: Sumit Whipple on 05-09-2023 Estimated GFR (MDRD) Amer 71 mL/min >60 [facility] Comment on above: GFR Calc Estimated GFR (MDRD) Non-Af Amer 58 mL/min >60 [facility] Comment on above: Non- GFR Calc Thyroid Stimulating Hormone (TSH) 3.16 uIU/mL 0.358-3.74 [facility] Vitamin D 25-Hydroxy 56.1 ng/mL [facility] Comment on above: Vitamin D 25(OH) Sta tus Range Deficiency <20 ng/mL (50nmol/L) Insufficiency 20 - 30 ng/mL (50 - 75 nmol/L) Sufficiency 30 - 100 ng/mL (75 - 250 nmol/L) Toxicity >100 ng/mL (>250 nmol/L) Platelets bldOrdered By: Sumit Whipple on 05-09-2023 Platelets (Bld) [#/Vol] 298 10*3/uL 150-450 [facility] Serum or plasma albumin dot urement (mass/volume)Ordered By: Sumit Whipple on 05-09-2023 Albumin [Mass/Vol] 3.4 g/dL 3.2-5.0 [facility] Serum or plasma albumin/glob ulin mass ratioOrdered By: Sumit Whipple on 05-09-2023 Albumin/Globulin [Mass ratio] 1.1 {ratio} 0.9-2.4 [facility] Serum or plasma calcium dot urement (mass/volume)Ordered By: Sumit Whipple on 05-09-2023 Calcium [Mass/Vol] 9.1 mg/dL 8.5-10.1 [facility] Serum or plasma creatinine m easurement (mass/volume)Ordered By: Sumit Whipple on 05-09-2023 Creatinine [Mass/Vol] 0.98 mg/dL 0.55-1.02 [facility] Comment on above: The validity of the calculated GFR & GFRAA in patients over 70 years has not been determined. Clinical correlation is essential. Serum or plasma urea nitroge n measurement (mass/volume)Ordered By: Sumit Whipple on 05-09-2023 Urea nitrogen [Mass/Vol] 25 mg/dL 7-18 [facility] Thin prep Papanicolaou smear with manual screeningOrdered By: Sumit Whipple on 05-09-2023 Thin prep Papanicolaou smear with manual screening 27 U/L 15-37 [facility] Thin prep Papanicolaou smear with manual screening 5 5-15 [facility] Absolute lymphocyte countOrd ered By: Sumit Whipple on 04-18-2023 Lymphocytes Auto (Unsp spec) [#/Vol] 2.57 10*3/uL 0.83-4.51 [facility] Basophil percentageOrdered B y: Sumit Whipple on 04-18-2023 Basophils/100 WBC (Bld) 0.4 % 0-1 [facility] Chloride [Moles/Vol] 103 mmol/L 98-107 [facility] Eosinophils/100 WBC (Bld) 3.5 % 0-5 [facility] Glucose [Mass/Vol] 81 mg/dL 74-106 [facility] Neutrophils (Bld) [#/Vol] 4.0 10*3/uL 2.0-7.7 [facility] Neutrophils/100 WBC (Bld) 53.7 % 47-70 [facility] Potassium [Moles/Vol] 4.6 mmol/L 3.5-5.1 [facility] Sodium [Moles/Vol] 136 mmol/L 136-145 [facility] WBC (Bld) [#/Vol] 7.4 10*3/uL 4.4-11.0 [facility] Blood erythrocytes count (nu mber/volume)Ordered By: Sumit Whipple on 04-18-2023 RBC (Bld) [#/Vol] 4.96 10*6/uL 4.2-5.4 [facility] Blood hemoglobin measurement (mass/volume)Ordered By: Sumit Whipple on 04-18-2023 Hemoglobin (Bld) [Mass/Vol] 13.2 g/dL 12.0-15.0 [facility] Blood lymphocytes/100 leukoc ytesOrdered By: Sumit Whipple on 04-18-2023 Lymphocytes/100 WBC (Bld) 34.6 % 19-41 [facility] Blood monocytes/100 leukocyt esOrdered By: Sumit Whipple on 04-18-2023 Monocytes/100 WBC (Bld) 7.5 % 0-10 [facility] Blood platelet mean volumeOr dered By: Sumit Whipple on 04-18-2023 Platelet mean volume (Bld) [Entitic vol] 10.1 fL 6.2-12.0 [facility] Determination of erythrocyte mean corpuscular volume (MCV)Ordered By: Sumit Whipple on 04-18-2023 MCV (RBC) [Entitic vol] 85.3 fL 81-99 [facility] Hematocrit Auto (Bld) [Volum e fraction]Ordered By: Sumit Whipple on 04-18-2023 Hematocrit (Bld) [Volume fraction] 42.3 % 37-47 [facility] Laboratory - Chemistry and C hemistry - challengeOrdered By: Sumit Whipple on 04-18-2023 CO2 [Moles/Vol] 28.0 mmol/L 21.0-32.0 [facility] Urea nitrogen/Creatinine [Mass ratio] 19.0 mg/mg 10-20 [facility] Laboratory - Hematology and Cell countsOrdered By: Sumit Whipple on 04-18-2023 Erythrocyte distribution width (RBC) [Entitic vol] 44.7 fL 35.1-43.9 [facility] Erythrocyte distribution width (RBC) [Ratio] 14.6 % 11.6-14.6 [facility] Immature granulocytes/100 WBC (Bld) 0.300 % 0.0-0.9 [facility] Comment on above: IG% - Immature Granu locytes (promyelocytes, myelocytes and metamyelocytes) > 1% indicates that a LEFT SHIFT is Present. MCH (RBC) [Entitic mass] 26.6 pg 27.0-32.0 [facility] Nucleated RBC/100 WBC (Bld) [Ratio] 0 % 0-5 [facility] MCHC Auto (RBC) [Mass/Vol]Or dered By: Sumit Whipple on 04-18-2023 MCHC (RBC) [Mass/Vol] 31.2 g/dL 32-36 [facility] No Panel InformationOrdered By: Sumit Whipple on 04-18-2023 Estimated GFR (MDRD) Amer 69 mL/min >60 [facility] Comment on above: GFR Calc Estimated GFR (MDRD) Non-Af Amer 57 mL/min >60 [facility] Comment on above: Non- GFR Calc Thyroid Stimulating Hormone (TSH) 0.67 uIU/mL 0.358-3.74 [facility] Platelets bldOrdered By: Sumit Whipple on 04-18-2023 Platelets (Bld) [#/Vol] 337 10*3/uL 150-450 [facility] Serum or plasma C reactive p rotein measurement (mass/volume)Ordered By: Sumit Whipple on 04-18-2023 CRP [Mass/Vol] mg/L 0.0-3.0 [facility] Comment on above: C-Reactive Protein ( CRP) provides useful information for thediagnosis, therapy and monitoring of inflammatory processesand associated diseases. For the evaluation of Relative Riskfor Cardiovascular Disease, a High Sensitivity CRP (HSCRP)should be ordered. Serum or plasma calcium dot urement (mass/volume)Ordered By: Sumit Whipple on 04-18-2023 Calcium [Mass/Vol] 9.5 mg/dL 8.5-10.1 [facility] Serum or plasma creatinine m easurement (mass/volume)Ordered By: Sumit Whipple on 04-18-2023 Creatinine [Mass/Vol] 1.00 mg/dL 0.55-1.02 [facility] Comment on above: The validity of the calculated GFR & GFRAA in patients over 70 years has not been determined. Clinical correlation is essential. Serum or plasma urea nitroge n measurement (mass/volume)Ordered By: Sumit Whipple on 04-18-2023 Urea nitrogen [Mass/Vol] 19 mg/dL 7-18 [facility] Thin prep Papanicolaou smear with manual screeningOrdered By: Sumit Whipple on 04-18-2023 Thin prep Papanicolaou smear with manual screening 5 5-15 [facility] Absolute lymphocyte countOrd ered By: Dr. Whipple on 11-01-2022 Lymphocytes Auto (Unsp spec) [#/Vol] 1.59 10*3/uL 0.83-4.51 [facility] Basophil percentageOrdered B y: Dr. Whipple on 11-01-2022 Basophils/100 WBC (Bld) 0.5 % 0-1 [facility] Bilirubin [Mass/Vol] 0.30 mg/dL 0.20-1.00 [facility] Comment on above: For patients on eltr ombopag therapy, use of Dimension [place] TBIL is not recommended. Chloride [Moles/Vol] 105 mmol/L 98-107 [facility] Eosinophils/100 WBC (Bld) 3.8 % 0-5 [facility] Glucose [Mass/Vol] 115 mg/dL 74-106 [facility] Comment on above: Fasting Glucose resu lt from 100 to 125 mg/dL suggests IMPAIRED HOMEOSTASIS per A.D.A. criteria. Neutrophils (Bld) [#/Vol] 4.2 10*3/uL 2.0-7.7 [facility] Neutrophils/100 WBC (Bld) 63.7 % 47-70 [facility] Potassium [Moles/Vol] 4.5 mmol/L 3.5-5.1 [facility] Protein [Mass/Vol] 6.8 g/dL 6.4-8.2 [facility] Sodium [Moles/Vol] 139 mmol/L 136-145 [facility] WBC (Bld) [#/Vol] 6.5 10*3/uL 4.4-11.0 [facility] Blood erythrocytes count (nu mber/volume)Ordered By: Dr. Whipple on 11-01-2022 RBC (Bld) [#/Vol] 4.69 10*6/uL 4.2-5.4 [facility] Blood hemoglobin measurement (mass/volume)Ordered By: Dr. Whipple on 11-01-2022 Hemoglobin (Bld) [Mass/Vol] 12.8 g/dL 12.0-15.0 [facility] Blood lymphocytes/100 leukoc ytesOrdered By: Dr. Whipple on 11-01-2022 Lymphocytes/100 WBC (Bld) 24.4 % 19-41 [facility] Blood monocytes/100 leukocyt esOrdered By: Dr. Whipple on 11-01-2022 Monocytes/100 WBC (Bld) 7.1 % 0-10 [facility] Blood platelet mean volumeOr dered By: Dr. Whipple on 11-01-2022 Platelet mean volume (Bld) [Entitic vol] 10.5 fL 6.2-12.0 [facility] Determination of erythrocyte mean corpuscular volume (MCV)Ordered By: Dr. Whipple on 11-01-2022 MCV (RBC) [Entitic vol] 85.3 fL 81-99 [facility] Hematocrit Auto (Bld) [Volum e fraction]Ordered By: Dr. Whipple on 11-01-2022 Hematocrit (Bld) [Volume fraction] 40.0 % 37-47 [facility] Laboratory - Chemistry and C hemistry - challengeOrdered By: Dr. Whipple on 11-01-2022 ALP [Catalytic activity/Vol] 59 U/L 45-117 [facility] ALT [Catalytic activity/Vol] 24 U/L 13-56 [facility] CO2 [Moles/Vol] 29.0 mmol/L 21.0-32.0 [facility] Globulin (S) [Mass/Vol] 3.3 g/dL 2.2-4.2 [facility] Urea nitrogen/Creatinine [Mass ratio] 25.2 mg/mg 10-20 [facility] Laboratory - Hematology and Cell countsOrdered By: Dr. Whipple on 11-01-2022 Erythrocyte distribution width (RBC) [Entitic vol] 44.9 fL 35.1-43.9 [facility] Erythrocyte distribution width (RBC) [Ratio] 14.6 % 11.6-14.6 [facility] Immature granulocytes/100 WBC (Bld) 0.500 % 0.0-0.9 [facility] Comment on above: IG% - Immature Granu locytes (promyelocytes, myelocytes and metamyelocytes) > 1% indicates that a LEFT SHIFT is Present. MCH (RBC) [Entitic mass] 27.3 pg 27.0-32.0 [facility] Nucleated RBC/100 WBC (Bld) [Ratio] 0 % 0-5 [facility] MCHC Auto (RBC) [Mass/Vol]Or dered By: Dr. Whipple on 11-01-2022 MCHC (RBC) [Mass/Vol] 32.0 g/dL 32-36 [facility] No Panel InformationOrdered By: Dr. Whipple on 11-01-2022 Estimated GFR (MDRD) Amer 77 mL/min >60 [facility] Comment on above: GFR Calc Estimated GFR (MDRD) Non-Af Amer 64 mL/min >60 [facility] Comment on above: Non- GFR Calc Thyroid Stimulating Hormone (TSH) 1.16 uIU/mL 0.358-3.74 [facility] Vitamin D 25-Hydroxy 73.4 ng/mL [facility] Comment on above: Vitamin D 25(OH) Sta tus Range Deficiency <20 ng/mL (50nmol/L) Insufficiency 20 - 30 ng/mL (50 - 75 nmol/L) Sufficiency 30 - 100 ng/mL (75 - 250 nmol/L) Toxicity >100 ng/mL (>250 nmol/L) Platelets bldOrdered By: Dr. Whipple on 11-01-2022 Platelets (Bld) [#/Vol] 297 10*3/uL 150-450 [facility] Serum or plasma albumin dot urement (mass/volume)Ordered By: Dr. Whipple on 11-01-2022 Albumin [Mass/Vol] 3.5 g/dL 3.2-5.0 [facility] Serum or plasma albumin/glob ulin mass ratioOrdered By: Dr. Whipple on 11-01-2022 Albumin/Globulin [Mass ratio] 1.1 {ratio} 0.9-2.4 [facility] Serum or plasma calcium dot urement (mass/volume)Ordered By: Dr. Whipple on 11-01-2022 Calcium [Mass/Vol] 9.7 mg/dL 8.5-10.1 [facility] Serum or plasma creatinine m easurement (mass/volume)Ordered By: Dr. Whipple on 11-01-2022 Creatinine [Mass/Vol] 0.91 mg/dL 0.55-1.02 [facility] Comment on above: The validity of the calculated GFR & GFRAA in patients over 70 years has not been determined. Clinical correlation is essential. Serum or plasma urea nitroge n measurement (mass/volume)Ordered By: Dr. Whipple on 11-01-2022 Urea nitrogen [Mass/Vol] 23 mg/dL 7-18 [facility] Thin prep Papanicolaou smear with manual screeningOrdered By: Dr. Whipple on 11-01-2022 Thin prep Papanicolaou smear with manual screening 18 U/L 15-37 [facility] Thin prep Papanicolaou smear with manual screening 5 5-15 [facility] XR FOOT GENERAL 3V AP/LAT/OB L BILATERALon 10-24-2022 [facility] Absolute lymphocyte counton 05-04-2022 Lymphocytes Auto (Unsp spec) [#/Vol] 1.98 10*3/uL 0.83-4.51 [facility] Work Phone: Basophil percentageon 2021 Basophils/100 WBC (Bld) 0.6 % 0-1 [facility] Work Phone: Bilirubin [Mass/Vol] 0.30 mg/dL 0.20-1.00 [facility] Work Phone: Comment on above: For patients on eltr ombopag therapy, use of Dimension [place] TBIL is not recommended. Chloride [Moles/Vol] 104 mmol/L 98-107 [facility] Work Phone: Eosinophils/100 WBC (Bld) 4.4 % 0-5 [facility] Work Phone: Glucose [Mass/Vol] 132 mg/dL 74-106 [facility] Work Phone: Comment on above: Fasting Glucose resu lt greater than or equal to 126 mg/dL suggests DIABETES MELLITUS per A.D.A. criteria. Neutrophils (Bld) [#/Vol] 3.9 10*3/uL 2.0-7.7 [facility] Work Phone: Neutrophils/100 WBC (Bld) 57.7 % 47-70 [facility] Work Phone: Potassium [Moles/Vol] 4.6 mmol/L 3.5-5.1 [facility] Work Phone: Protein [Mass/Vol] 7.2 g/dL 6.4-8.2 [facility] Work Phone: Sodium [Moles/Vol] 140 mmol/L 136-145 [facility] Work Phone: WBC (Bld) [#/Vol] 6.7 10*3/uL 4.4-11.0 [facility] Work Phone: Blood erythrocytes count (nu mber/volume)on 05-04-2022 RBC (Bld) [#/Vol] 4.88 10*6/uL 4.2-5.4 [facility] Work Phone: Blood hemoglobin measurement (mass/volume)on 05-04-2022 Hemoglobin (Bld) [Mass/Vol] 13.4 g/dL 12.0-15.0 [facility] [facility] Work Phone: Blood lymphocytes/100 leukoc yteson 05-04-2022 Lymphocytes/100 WBC (Bld) 29.7 % 19-41 [facility] Work Phone: Blood monocytes/100 leukocyt eson 05-04-2022 Monocytes/100 WBC (Bld) 7.4 % 0-10 [facility] Work Phone: Blood platelet mean volumeon 05-04-2022 Platelet mean volume (Bld) [Entitic vol] 10.0 fL 6.2-12.0 [facility] Work Phone: Determination of erythrocyte mean corpuscular volume (MCV)on 05-04-2022 MCV (RBC) [Entitic vol] 84.8 fL 81-99 [facility] Work Phone: Hematocrit Auto (Bld) [Volum e fraction]on 05-04-2022 Hematocrit (Bld) [Volume fraction] 41.4 % 37-47 [facility] Work Phone: Laboratory - Chemistry and C hemistry - challengeon 05-04-2022 ALP [Catalytic activity/Vol] 58 U/L 45-117 [facility] Work Phone: ALT [Catalytic activity/Vol] 29 U/L 13-56 [facility] Work Phone: CO2 [Moles/Vol] 27.0 mmol/L 21.0-32.0 [facility] Work Phone: Globulin (S) [Mass/Vol] 4.0 g/dL 2.2-4.2 [facility] Work Phone: Urea nitrogen/Creatinine [Mass ratio] 26.5 mg/mg 10-20 [facility] Work Phone: Laboratory - Hematology and Cell countson 05-04-2022 Erythrocyte distribution width (RBC) [Entitic vol] 44.0 fL 35.1-43.9 [facility] Work Phone: Erythrocyte distribution width (RBC) [Ratio] 14.4 % 11.6-14.6 [facility] Work Phone: Immature granulocytes/100 WBC (Bld) 0.200 % 0.0-0.9 [facility] Work Phone: Comment on above: IG% - Immature Granu locytes (promyelocytes, myelocytes and metamyelocytes) > 1% indicates that a LEFT SHIFT is Present. MCH (RBC) [Entitic mass] 27.5 pg 27.0-32.0 [facility] Work Phone: Nucleated RBC/100 WBC (Bld) [Ratio] 0 % 0-5 [facility] Work Phone: MCHC Auto (RBC) [Mass/Vol]on 05-04-2022 MCHC (RBC) [Mass/Vol] 32.4 g/dL 32-36 [facility] Work Phone: No Panel Informationon 05-04 Estimated GFR (MDRD) Amer 71 mL/min >60 [facility] Work Phone: Comment on above: GFR Calc Estimated GFR (MDRD) Non-Af Amer 59 mL/min >60 [facility] Work Phone: Comment on above: Non- GFR Calc Thyroid Stimulating Hormone (TSH) 1.30 uIU/mL 0.358-3.74 [facility] Work Phone: Vitamin D 25-Hydroxy 68.2 ng/mL [facility] Work Phone: Comment on above: Vitamin D 25(OH) Sta tus Range Deficiency <20 ng/mL (50nmol/L) Insufficiency 20 - 30 ng/mL (50 - 75 nmol/L) Sufficiency 30 - 100 ng/mL (75 - 250 nmol/L) Toxicity >100 ng/mL (>250 nmol/L) Platelets bldon 05-04-2022 Platelets (Bld) [#/Vol] 351 10*3/uL 150-450 [facility] Work Phone: Serum or plasma albumin dot urement (mass/volume)on 05-04-2022 Albumin [Mass/Vol] 3.2 g/dL 3.2-5.0 [facility] Work Phone: Serum or plasma albumin/glob ulin mass ratioon 05-04-2022 Albumin/Globulin [Mass ratio] 0.8 {ratio} 0.9-2.4 [facility] Work Phone: Serum or plasma calcium dot urement (mass/volume)on 05-04-2022 Calcium [Mass/Vol] 9.6 mg/dL 8.5-10.1 [facility] Work Phone: Serum or plasma creatinine m easurement (mass/volume)on 05-04-2022 Creatinine [Mass/Vol] 0.98 mg/dL 0.55-1.02 [facility] Work Phone: Comment on above: The validity of the calculated GFR & GFRAA in patients over 70 years has not been determined. Clinical correlation is essential. Serum or plasma urea nitroge n measurement (mass/volume)on 05-04-2022 Urea nitrogen [Mass/Vol] 26 mg/dL 7-18 [facility] Work Phone: Thin prep Papanicolaou smear with manual screeningon 05-04-2022 Thin prep Papanicolaou smear with manual screening 15 U/L 15-37 [facility] Work Phone: Thin prep Papanicolaou smear with manual screening 9 5-15 [facility] Work Phone: Basophil percentageon 2021 Chloride [Moles/Vol] 99 mmol/L 98-107 [facility] Work Phone: Glucose [Mass/Vol] 133 mg/dL 74-106 [facility] Work Phone: Comment on above: Fasting Glucose resu lt greater than or equal to 126 mg/dL suggests DIABETES MELLITUS per A.D.A. criteria. Potassium [Moles/Vol] 4.3 mmol/L 3.5-5.1 [facility] Work Phone: Sodium [Moles/Vol] 133 mmol/L 136-145 [facility] Work Phone: Laboratory - Chemistry and C hemistry - challengeon 02-21-2022 CO2 [Moles/Vol] 27.0 mmol/L 21.0-32.0 [facility] Work Phone: Urea nitrogen/Creatinine [Mass ratio] 26.3 mg/mg 10-20 [facility] Work Phone: No Panel Informationon 02-21 Estimated GFR (MDRD) Amer 77 mL/min >60 [facility] Work Phone: Comment on above: GFR Calc Estimated GFR (MDRD) Non-Af Amer 64 mL/min >60 [facility] Work Phone: Comment on above: Non- GFR Calc Serum or plasma calcium dot urement (mass/volume)on 02-21-2022 Calcium [Mass/Vol] 9.8 mg/dL 8.5-10.1 [facility] Work Phone: Serum or plasma creatinine m easurement (mass/volume)on 02-21-2022 Creatinine [Mass/Vol] 0.91 mg/dL 0.55-1.02 [facility] Work Phone: Comment on above: The validity of the calculated GFR & GFRAA in patients over 70 years has not been determined. Clinical correlation is essential. Serum or plasma urea nitroge n measurement (mass/volume)on 02-21-2022 Urea nitrogen [Mass/Vol] 24 mg/dL 7-18 [facility] Work Phone: Thin prep Papanicolaou smear with manual screeningon 02-21-2022 Thin prep Papanicolaou smear with manual screening 7 5-15 [facility] Work Phone: Absolute lymphocyte counton 10-27-2021 Lymphocytes Auto (Unsp spec) [#/Vol] 2.88 10*3/uL 0.83-4.51 [facility] Work Phone: Basophil percentageon 2021 Basophils/100 WBC (Bld) 0.4 % 0-1 [facility] Work Phone: Bilirubin [Mass/Vol] 0.30 mg/dL 0.20-1.00 [facility] Work Phone: Comment on above: For patients on eltr ombopag therapy, use of Dimension [place] TBIL is not recommended. Chloride [Moles/Vol] 101 mmol/L 98-107 [facility] Work Phone: Eosinophils/100 WBC (Bld) 1.7 % 0-5 [facility] Work Phone: Glucose [Mass/Vol] 88 mg/dL 74-106 [facility] Work Phone: Neutrophils (Bld) [#/Vol] 4.7 10*3/uL 2.0-7.7 [facility] Work Phone: Neutrophils/100 WBC (Bld) 55.7 % 47-70 [facility] Work Phone: Potassium [Moles/Vol] 4.4 mmol/L 3.5-5.1 [facility] Work Phone: Protein [Mass/Vol] 7.3 g/dL 6.4-8.2 [facility] Work Phone: Sodium [Moles/Vol] 136 mmol/L 136-145 [facility] Work Phone: WBC (Bld) [#/Vol] 8.4 10*3/uL 4.4-11.0 [facility] Work Phone: Blood erythrocytes count (nu mber/volume)on 10-27-2021 RBC (Bld) [#/Vol] 4.64 10*6/uL 4.2-5.4 [facility] Work Phone: Blood hemoglobin measurement (mass/volume)on 10-27-2021 Hemoglobin (Bld) [Mass/Vol] 13.7 g/dL 12.0-15.0 [facility] Work Phone: Blood lymphocytes/100 leukoc yteson 10-27-2021 Lymphocytes/100 WBC (Bld) 34.2 % 19-41 [facility] Work Phone: Blood monocytes/100 leukocyt eson 10-27-2021 Monocytes/100 WBC (Bld) 7.8 % 0-10 [facility] Work Phone: Blood platelet mean volumeon 10-27-2021 Platelet mean volume (Bld) [Entitic vol] 10.1 fL 6.2-12.0 [facility] Work Phone: Determination of erythrocyte mean corpuscular volume (MCV)on 10-27-2021 MCV (RBC) [Entitic vol] 87.1 fL 81-99 [facility] Work Phone: Hematocrit Auto (Bld) [Volum e fraction]on 10-27-2021 Hematocrit (Bld) [Volume fraction] 40.4 % 37-47 [facility] Work Phone: Laboratory - Chemistry and C hemistry - challengeon 10-27-2021 ALP [Catalytic activity/Vol] 55 U/L 45-117 [facility] Work Phone: ALT [Catalytic activity/Vol] 25 U/L 13-56 [facility] Work Phone: CO2 [Moles/Vol] 28.0 mmol/L 21.0-32.0 [facility] Work Phone: Globulin (S) [Mass/Vol] 3.5 g/dL 2.2-4.2 [facility] Work Phone: Urea nitrogen/Creatinine [Mass ratio] 17.8 mg/mg 10-20 [facility] Work Phone: Laboratory - Hematology and Cell countson 10-27-2021 Erythrocyte distribution width (RBC) [Entitic vol] 45.9 fL 35.1-43.9 [facility] Work Phone: Erythrocyte distribution width (RBC) [Ratio] 14.4 % 11.6-14.6 [facility] Work Phone: Immature granulocytes/100 WBC (Bld) 0.200 % 0.0-0.9 [facility] Work Phone: Comment on above: IG% - Immature Granu locytes (promyelocytes, myelocytes and metamyelocytes) > 1% indicates that a LEFT SHIFT is Present. MCH (RBC) [Entitic mass] 29.5 pg 27.0-32.0 [facility] Work Phone: Nucleated RBC/100 WBC (Bld) [Ratio] 0 % 0-5 [facility] Work Phone: MCHC Auto (RBC) [Mass/Vol]on 10-27-2021 MCHC (RBC) [Mass/Vol] 33.9 g/dL 32-36 [facility] Work Phone: No Panel Informationon 10-27 Estimated GFR (MDRD) Amer 64 mL/min >60 [facility] Work Phone: Comment on above: GFR Calc Estimated GFR (MDRD) Non-Af Amer 53 mL/min >60 [facility] Work Phone: Comment on above: Non- GFR Calc Thyroid Stimulating Hormone (TSH) 6.94 uIU/mL 0.358-3.74 [facility] Work Phone: Vitamin D 25-Hydroxy 67.3 ng/mL [facility] Work Phone: Comment on above: Vitamin D 25(OH) Sta tus Range Deficiency <20 ng/mL (50nmol/L) Insufficiency 20 - 30 ng/mL (50 - 75 nmol/L) Sufficiency 30 - 100 ng/mL (75 - 250 nmol/L) Toxicity >100 ng/mL (>250 nmol/L) Platelets bldon 10-27-2021 Platelets (Bld) [#/Vol] 354 10*3/uL 150-450 [facility] Work Phone: Serum or plasma albumin dot urement (mass/volume)on 10-27-2021 Albumin [Mass/Vol] 3.8 g/dL 3.2-5.0 [facility] Work Phone: Serum or plasma albumin/glob ulin mass ratioon 10-27-2021 Albumin/Globulin [Mass ratio] 1.1 {ratio} 0.9-2.4 [facility] Work Phone: Serum or plasma calcium dot urement (mass/volume)on 10-27-2021 Calcium [Mass/Vol] 9.6 mg/dL 8.5-10.1 [facility] Work Phone: Serum or plasma creatinine m easurement (mass/volume)on 10-27-2021 Creatinine [Mass/Vol] 1.07 mg/dL 0.55-1.02 [facility] Work Phone: Comment on above: The validity of the calculated GFR & GFRAA in patients over 70 years has not been determined. Clinical correlation is essential. Serum or plasma urea nitroge n measurement (mass/volume)on 10-27-2021 Urea nitrogen [Mass/Vol] 19 mg/dL 7-18 [facility] Work Phone: Thin prep Papanicolaou smear with manual screeningon 10-27-2021 Thin prep Papanicolaou smear with manual screening 12 U/L 15-37 [facility] Work Phone: Thin prep Papanicolaou smear with manual screening 7 5-15 [facility] Work Phone: Basophil percentageon 2021 Basophil percentage 4.0 mg/dL 2.5-4.9 [facility] Work Phone: Chloride [Moles/Vol] 103 mmol/L 98-107 [facility] Work Phone: Glucose [Mass/Vol] 184 mg/dL 74-106 [facility] Work Phone: Comment on above: Fasting Glucose resu lt greater than or equal to 126 mg/dL suggests DIABETES MELLITUS per A.D.A. criteria. Potassium [Moles/Vol] 4.6 mmol/L 3.5-5.1 [facility] Work Phone: Sodium [Moles/Vol] 137 mmol/L 136-145 [facility] Work Phone: WBC (Bld) [#/Vol] 7.1 10*3/uL 4.4-11.0 [facility] Work Phone: Blood erythrocytes count (nu mber/volume)on 09-19-2021 RBC (Bld) [#/Vol] 4.68 10*6/uL 4.2-5.4 [facility] Work Phone: Blood hemoglobin measurement (mass/volume)on 09-19-2021 Hemoglobin (Bld) [Mass/Vol] 13.3 g/dL 12.0-15.0 [facility] Work Phone: Blood platelet mean volumeon 09-19-2021 Platelet mean volume (Bld) [Entitic vol] 9.6 fL 6.2-12.0 [facility] Work Phone: Determination of erythrocyte mean corpuscular volume (MCV)on 09-19-2021 MCV (RBC) [Entitic vol] 86.1 fL 81-99 [facility] Work Phone: Hematocrit Auto (Bld) [Volum e fraction]on 09-19-2021 Hematocrit (Bld) [Volume fraction] 40.3 % 37-47 [facility] Work Phone: Laboratory - Chemistry and C hemistry - challengeon 09-19-2021 CO2 [Moles/Vol] 26.0 mmol/L 21.0-32.0 [facility] Work Phone: Urea nitrogen/Creatinine [Mass ratio] 19.8 mg/mg 10-20 [facility] Work Phone: Laboratory - Hematology and Cell countson 09-19-2021 Erythrocyte distribution width (RBC) [Entitic vol] 43.8 fL 35.1-43.9 [facility] Work Phone: Erythrocyte distribution width (RBC) [Ratio] 14.1 % 11.6-14.6 [facility] Work Phone: MCH (RBC) [Entitic mass] 28.4 pg 27.0-32.0 [facility] Work Phone: MCHC Auto (RBC) [Mass/Vol]on 09-19-2021 MCHC (RBC) [Mass/Vol] 33.0 g/dL 32-36 [facility] Work Phone: No Panel Informationon 09-19 Estimated GFR (MDRD) Amer 69 mL/min >60 [facility] Work Phone: Comment on above: GFR Calc Estimated GFR (MDRD) Non-Af Amer 57 mL/min >60 [facility] Work Phone: Comment on above: Non- GFR Calc Parathyroid Hormone (Intact) 31.0 pg/mL 18.4-80.1 [facility] Work Phone: Platelets bldon 09-19-2021 Platelets (Bld) [#/Vol] 330 10*3/uL 150-450 [facility] Work Phone: Serum or plasma albumin dot urement (mass/volume)on 09-19-2021 Albumin [Mass/Vol] 3.6 g/dL 3.2-5.0 [facility] Work Phone: Serum or plasma calcium dot urement (mass/volume)on 09-19-2021 Calcium [Mass/Vol] 9.8 mg/dL 8.5-10.1 [facility] Work Phone: Serum or plasma creatinine m easurement (mass/volume)on 09-19-2021 Creatinine [Mass/Vol] 1.01 mg/dL 0.55-1.02 [facility] Work Phone: Comment on above: The validity of the calculated GFR & GFRAA in patients over 70 years has not been determined. Clinical correlation is essential. Serum or plasma urea nitroge n measurement (mass/volume)on 09-19-2021 Urea nitrogen [Mass/Vol] 20 mg/dL 7-18 [facility] Work Phone: Basophil percentageon 2020 Basophil percentage 3.6 mg/dL 2.5-4.9 [facility] Work Phone: Chloride [Moles/Vol] 102 mmol/L 98-107 [facility] Work Phone: Glucose [Mass/Vol] 191 mg/dL 74-106 [facility] Work Phone: Comment on above: Fasting Glucose resu lt greater than or equal to 126 mg/dL suggests DIABETES MELLITUS per A.D.A. criteria.Please note revised GLUCOSE reference range effective 2017. Potassium [Moles/Vol] 4.3 mmol/L 3.5-5.1 [facility] Work Phone: Sodium [Moles/Vol] 136 mmol/L 136-145 [facility] Work Phone: Laboratory - Chemistry and C hemistry - challengeon 07-14-2021 CO2 [Moles/Vol] 27.0 mmol/L 21.0-32.0 [facility] Work Phone: Urea nitrogen/Creatinine [Mass ratio] 22.6 mg/mg 10-20 [facility] Work Phone: No Panel Informationon 07-14 Estimated GFR (MDRD) Amer 72 mL/min >60 [facility] Work Phone: Comment on above: GFR Calc Estimated GFR (MDRD) Non-Af Amer 59 mL/min >60 [facility] Work Phone: Comment on above: Non- GFR Calc Serum or plasma albumin dot urement (mass/volume)on 07-14-2021 Albumin [Mass/Vol] 3.4 g/dL 3.2-5.0 [facility] Work Phone: Serum or plasma calcium dot urement (mass/volume)on 07-14-2021 Calcium [Mass/Vol] 9.6 mg/dL 8.5-10.1 [facility] Work Phone: Serum or plasma creatinine m easurement (mass/volume)on 07-14-2021 Creatinine [Mass/Vol] 0.97 mg/dL 0.55-1.02 [facility] Work Phone: Comment on above: The validity of the calculated GFR & GFRAA in patients over 70 years has not been determined. Clinical correlation is essential. Serum or plasma urea nitroge n measurement (mass/volume)on 07-14-2021 Urea nitrogen [Mass/Vol] 22 mg/dL 7-18 [facility] Work Phone: Urine creatinine measurement (mass/volume)on 07-14-2021 Creatinine (U) [Mass/Vol] 144.00 mg/dL NO RANGE EST. [facility] Work Phone: Urine protein measurement (m ass/volume)on 07-14-2021 Protein (U) [Mass/Vol] 13.8 mg/dL 0.0-11.8 [facility] Work Phone: Urine protein/creatinine mas s ratioon 07-14-2021 Protein/Creatinine (U) [Mass ratio] 96 mg/g CRE 0-200 [facility] Work Phone: .Auto Diffon 02-19-2019 Ammonia (P) [Mass/Vol] 0.60 10 3/mcL Normal 0.15-1.00 [facility] ([place]) Comment on above: Performed By: #### A ROJAS, CBC, ADIFF #### [place] [address] #### B12, GFR, FE, BMP, FOL #### [address] [address] Basophils (Bld) [#/Vol] 0.00 10 3/mcL Normal 0.00-0.19 [facility] ([place]) Comment on above: Performed By: #### A ROJAS, CBC, ADIFF #### [place] [address] #### B12, GFR, FE, BMP, FOL #### [address] [address] Basophils/100 WBC (Bld) 0.4 % Normal 0.0-2.5 A [facility] ([place]) Comment on above: Performed By: #### A ROJAS, CBC, ADIFF #### [place] [address] #### B12, GFR, FE, BMP, FOL #### [address] [address] Eosinophils (Bld) [#/Vol] 0.20 10 3/mcL Normal 0.00-0.40 [facility] ([place]) Comment on above: Performed By: #### A ROJAS, CBC, ADIFF #### [address] [address] #### B12, GFR, FE, BMP, FOL #### [address] [address] Eosinophils/100 WBC (Bld) 2.5 % Normal 0.0-7.0 [facility] ([place]) Comment on above: Performed By: #### A ROJAS, CBC, ADIFF #### [place] [address] #### B12, GFR, FE, BMP, FOL #### [address] [address] Lymphocytes (Bld) [#/Vol] 1.50 10 3/mcL Normal 0.77-3.85 [facility] ([place]) Comment on above: Performed By: #### A ROJAS, CBC, ADIFF #### [place] [address] #### B12, GFR, FE, BMP, FOL #### [address] [address] Lymphocytes/100 WBC (Bld) 21.3 % Normal 10.0-50.0 [facility] ([place]) Comment on above: Performed By: #### A ROJAS, CBC, ADIFF #### [place] [address] #### B12, GFR, FE, BMP, FOL #### [address] [address] Monocytes/100 WBC (Bld) 8.1 % Normal 1.7-13.0 A [facility] ([place]) Comment on above: Performed By: #### A ROJAS, CBC, ADIFF #### [place] [address] #### B12, GFR, FE, BMP, FOL #### [address] [address] Neutrophils/100 WBC (Bld) 67.7 % Normal 37.0-80.0 [facility] ([place]) Comment on above: Performed By: #### A ROJAS, CBC, ADIFF #### [address] [address] #### B12, GFR, FE, BMP, FOL #### [address] [address] .GFRon 02-19-2019 GFR Non- 50 ml/min/1.73sqm Normal [facility] ([place]) Comment on above: Result Comment: GFR Population mean for , Non- Americans Ages 20-29 = 116 mL/min/1.73 sq.m. Ages 30-39 = 107 mL/min/1.73 sq.m. Ages 40-49 = 99 mL/min/1.73 sq.m. Ages 50-59 = 93 mL/min/1.73 sq.m. Ages 60-69 = 85 mL/min/1.73 sq.m. Ages 70+ = 75 mL/min/1.73 sq.m. Chronic Kidney Disease: Less than 60 mL/min/1.73 square meters End Stage Renal Disease: Less than 15 mL/min/1.73 square meters Performed By: #### A ROJAS, CBC, ADIFF #### [address] [address] #### B12, GFR, FE, BMP, FOL #### [address] [address] GFR 61 ml/min/1.73sqm Normal [facility] ([place]) Comment on above: Result Comment: GFR Population mean for , Non- Americans Ages 20-29 = 116 mL/min/1.73 sq.m. Ages 30-39 = 107 mL/min/1.73 sq.m. Ages 40-49 = 99 mL/min/1.73 sq.m. Ages 50-59 = 93 mL/min/1.73 sq.m. Ages 60-69 = 85 mL/min/1.73 sq.m. Ages 70+ = 75 mL/min/1.73 sq.m. Chronic Kidney Disease: Less than 60 mL/min/1.73 square meters End Stage Renal Disease: Less than 15 mL/min/1.73 square meters Performed By: #### A ROJAS, CBC, ADIFF #### [address] [address] #### B12, GFR, FE, BMP, FOL #### [address] [address] .NEUABSon 02-19-2019 Neutrophils (Bld) [#/Vol] 4.90 10 3/mcL Normal 2.85-6.16 [facility] ([place]) Comment on above: Performed By: #### A ROJAS, CBC, ADIFF #### [place] [address] #### B12, GFR, FE, BMP, FOL #### [address] [address] B12on 02-19-2019 Cobalamin (Vitamin B12) [Mass/Vol] 258 pg/mL Normal 211-911 [facility] ([place]) Comment on above: Performed By: #### A ROJAS, CBC, ADIFF #### [place] [address] #### B12, GFR, FE, BMP, FOL #### [place] [address] BMPon 02-19-2019 Calcium [Mass/Vol] 8.8 mg/dL Normal 8.4-10.2 [facility] ([place]) Comment on above: Performed By: #### A ROJAS, CBC, ADIFF #### [place] [address] #### B12, GFR, FE, BMP, FOL #### [place] [address] Chloride [Moles/Vol] 103 mmol/L Normal 98-107 [facility] ([place]) Comment on above: Performed By: #### A ROJAS, CBC, ADIFF #### [place] [address] #### B12, GFR, FE, BMP, FOL #### [place] [id number] CO2 [Moles/Vol] 32 mmol/L High 23-31 [facility] ([place]) Comment on above: Performed By: #### A ROJAS, CBC, ADIFF #### [address] [address] #### B12, GFR, FE, BMP, FOL #### [address] [address] Creatinine [Mass/Vol] 1.07 mg/dL High 0.55-1.02 [facility] ([place]) Comment on above: Performed By: #### A ROJAS, CBC, ADIFF #### [place] [address] #### B12, GFR, FE, BMP, FOL #### [address] [address] Electrolyte Balance 4.0 mEq/L Normal [facility] ([place]) Comment on above: Performed By: #### A ROJAS, CBC, ADIFF #### [place] [address] #### B12, GFR, FE, BMP, FOL #### [address] [address] Glucose [Mass/Vol] 105 mg/dL Normal 83-110 [facility] ([place]) Comment on above: Performed By: #### A ROJAS, CBC, ADIFF #### [place] [address] #### B12, GFR, FE, BMP, FOL #### [address] [address] Potassium [Moles/Vol] 4.2 mmol/L Normal 3.5-5.1 [facility] ([place]) Comment on above: Performed By: #### A ROJAS, CBC, ADIFF #### [address] [address] #### B12, GFR, FE, BMP, FOL #### [address] [address] Sodium [Moles/Vol] 139 mmol/L Normal 136-145 [facility] ([place]) Comment on above: Performed By: #### A ROJAS, CBC, ADIFF #### [place] [address] #### B12, GFR, FE, BMP, FOL #### [address] [address] Urea nitrogen [Mass/Vol] 16 mg/dL Normal 7-18 [facility] ([place]) Comment on above: Performed By: #### A ROJAS, CBC, ADIFF #### [address] [address] #### B12, GFR, FE, BMP, FOL #### [address] [address] Urea nitrogen/Creatinine [Mass ratio] 15 ratio Normal 7-27 [facility] ([place]) Comment on above: Performed By: #### A ROJAS, CBC, ADIFF #### [place] [address] #### B12, GFR, FE, BMP, FOL #### [address] [address] CBCon 02-19-2019 Erythrocyte distribution width (RBC) [Ratio] 18.4 % High 11.5-14.5 [facility] ([place]) Comment on above: Performed By: #### A ROJAS, CBC, ADIFF #### [place] [address] #### B12, GFR, FE, BMP, FOL #### [address] [address] Hematocrit (Bld) [Volume fraction] 32.9 % Low 37.0-47.0 [facility] ([place]) Comment on above: Performed By: #### A ROJAS, CBC, ADIFF #### [place] [address] #### B12, GFR, FE, BMP, FOL #### [address] [address] Hemoglobin (Bld) [Mass/Vol] 11.0 G/dL Low 12.0-16.0 [facility] ([place]) Comment on above: Performed By: #### A ROJAS, CBC, ADIFF #### [place] [address] #### B12, GFR, FE, BMP, FOL #### [place] [address] MCH (RBC) [Entitic mass] 27.5 pg Normal 27.0-31.2 [facility] ([place]) Comment on above: Performed By: #### A ROJAS, CBC, ADIFF #### [place] [address] #### B12, GFR, FE, BMP, FOL #### [place] [address] MCHC (RBC) [Mass/Vol] 33.5 G/dL Normal 33.0-37.0 [facility] ([place]) Comment on above: Performed By: #### A ROJAS, CBC, ADIFF #### [place] [address] #### B12, GFR, FE, BMP, FOL #### [place] [address] MCV (RBC) [Entitic vol] 82.1 fL Normal 80.0-94.0 A [facility] ([place]) Comment on above: Performed By: #### A ROJAS, CBC, ADIFF #### [place] [address] #### B12, GFR, FE, BMP, FOL #### [place] [address] Platelet mean volume (Bld) [Entitic vol] 7.6 fL Normal 7.4-10.4 [facility] ([place]) Comment on above: Performed By: #### A ROJAS, CBC, ADIFF #### [place] [address] #### B12, GFR, FE, BMP, FOL #### [place] [address] Platelets (Bld) [#/Vol] 251 10 3/mcL Normal 130-400 [facility] ([place]) Comment on above: Performed By: #### A ROJAS, CBC, ADIFF #### [place] [id number] #### B12, GFR, FE, BMP, FOL #### [place] [address] RBC (Bld) [#/Vol] 4.00 10 6/mcL Low 4.20-5.40 [facility] ([place]) Comment on above: Performed By: #### A ROJAS, CBC, ADIFF #### [place] [address] #### B12, GFR, FE, BMP, FOL #### [place] [address] WBC (Bld) [#/Vol] 7.20 10 3/mcL Normal 4.60-10.80 [facility] ([place]) Comment on above: Performed By: #### A ROJAS, CBC, ADIFF #### [place] [address] #### B12, GFR, FE, BMP, FOL #### [place] [address] FEon 02-19-2019 Iron [Mass/Vol] 43 ug/dL Low 50-70 [facility] ([place]) Comment on above: Performed By: #### A ROJAS, CBC, ADIFF #### [place] [address] #### B12, GFR, FE, BMP, FOL #### [place] [address] FOLon 02-19-2019 Folate 27.2 ng/mL High 1.1-20.0 [facility] ([place]) Comment on above: Performed By: #### A ROJAS, CBC, ADIFF #### [place] [address] #### B12, GFR, FE, BMP, FOL #### [place] [address] XR KNEE 1 OR 2 VIEWS LEFTon 02-18-2019 XR KNEE 1 OR 2 VIEWS LEFT ORIGINAL XR KNEE portable AP and crosstable lateral 2 VIEWS LEFT CLINICAL STATEMENT: Status Post Arthroplasty , evaluate prosthesis COMPARISON: CT 02/03/2019 FINDINGS: There is knee replacement surgery with a total knee prosthesis that show satisfactory alignment. Expected postoperative changes in the soft tissues. IMPRESSION: Satisfactory alignment of knee prosthesis. Interpreted By: Sean Wing MD Preliminary Report By: Sean Wing MD Electronically Signed By: Sean Wing MD Dictated Date: 02/18/2019 1:51:01 PM Prelim Date: 02/18/2019 1:51:01 PM Sign Date: 02/18/2019 1:51:39 PM Normal [facility] ([place]) CT KNEE W/O CONTRAST LEFTon 02-04-2019 CT KNEE W/O CONTRAST LEFT ORIGINAL TIME OF PROCEDURE: 02/03/2019 11:14 AM PROCEDURE: CT KNEE W/O CONTRAST LEFT INDICATION FOR PROCEDURE: 73 years -old patient presents for evaluation of varus deviation at the knee. TECHNIQUE: Contiguous axial images are obtained of the knee without intravenous administration of contrast. Multiplanar reformations are submitted for interpretation. Images of the LEFT hip were also obtained. This exam was performed according to our departmental dose-optimization program, which includes automated exposure control, adjustment of the mA and/or kV according to patient size and/or use of iterative reconstruction technique. COMPARISON: None FINDINGS: There are multiple erosive changes involving the subarticular femur as well as within the central tibia. 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 There is mild degenerative arthropathy at the patellofemoral articulation. Small lucencies are also visible within the posterior patella suggestive of sequela of chondromalacia patella. There is a small joint effusion. There is a Collins's cyst measuring approximately 7.2 cm in cephalocaudal dimension x 1.4 cm in transverse dimension x 2.7 cm in AP dimension. The visualized skeletal muscles of the distal 5 proximal calf have a grossly normal appearance. There are some images of the LEFT hip. Patient has a total LEFT hip arthroplasty. Only axial images are available of the hip. The bones appear osteopenic. There is no obvious fracture. IMPRESSION: 1. Osteopenia and erosive changes involving the subarticular surfaces of the distal femur, proximal tibia and posterior patella. 2. Small joint effusion. 3. Collins's cyst. 4. Status post total LEFT hip arthroplasty. Interpreted By: Ila Costello MD Preliminary Report By: Ila Costello MD Electronically Signed By: Ila Costello MD Dictated Date: 02/04/2019 5:54:44 PM Prelim Date: 02/04/2019 5:54:44 PM Sign Date: 02/04/2019 6:02:48 PM Normal [facility] ([place]) Culture, urine Bacteria identified Cx Nom (U) Positive [facility] Work Phone: Vital Signs Date Time Vital Sign Value Performing Clinician Faci lity 08-29-2022 09:41-0500 Body height 173.[address] Sumit Whipple Work Phone: [facility] 08-29-2022 09:41-0500 Body mass index (BMI) [Ratio] 27.3 kg/m2 Dr. Sumit Whipple Work Phone: [facility] 08-29-2022 09:41-0500 Body temperature 97.2 [degF] Dr. Sumit Whipple Work Phone: [facility] 08-29-2022 09:41-0500 Body weight 82.[address] Sumit Whipple Work Phone: [facility] 08-29-2022 09:41-0500 Diastolic blood pressure 75 mm[Hg] Dr. Sumit Whipple Work Phone: [facility] 08-29-2022 09:41-0500 Heart rate 68 /min Dr. Sumit Whipple Work Phone: [facility] 08-29-2022 09:41-0500 Respiratory rate 18 /min Dr. Sumit Whipple Work Phone: [facility] 08-29-2022 09:41-0500 SaO2% (BldA) [Mass fraction] 96 % Dr. Sumit Whipple Work Phone: [facility] 08-29-2022 09:41-0500 Systolic blood pressure 150 mm[Hg] Dr. Sumit Whipple Work Phone: [facility] 12-07-2021 14:48-0400 Body height 173.99 cm [facility] Work Phone: 12-07-2021 14:48-0400 Body weight 91.53 kg [facility] Work Phone: 10-24-2021 [id number] Body height 173.99 cm [facility] Work Phone: 10-24-2021 11:18-0400 Body weight 93.98 kg [facility] Work Phone: 10-10-2021 10:31-0500 Body weight 94.71 kg [facility] Work Phone: Encounters Encounter Date Encounter Type Care Provider Facility Start: 02-20-2025 End: 02-20-2025 ambulatory Sumit Chi Sarabjit [facility]: [facility] Start: 02-02-2025 [facility] Start: 01-26-2025 ambulatory Sumit Chi Sarabjit Facility:[facility] Start: 01-19-2025 ambulatory Sumit Chi Sarabjit Facility:[facility] Start: 01-13-2025 ambulatory Sumit Chi Sarabjit Facility:[facility] Start: 01-07-2025 ambulatory Sumit Chi Sarabjit Facility:[facility] Start: 01-07-2025 End: 01-10-2025 Evaluation and management of inpatient Sumit Chi Sarabjit Facility:[facility] Start: 12-26-2024 End: 12-26-2024 ambulatory Collette Nieves Facility:[facility] Start: 12-19-2024 End: 12-19-2024 ambulatory Sumit Chi Sarabjit Facility:[facility] Start: 12-09-2024 End: 12-09-2024 ambulatory Glen Prayson Facility:[facility] Start: 12-03-2024 End: 12-03-2024 ambulatory Sumit Chi Sarabjit Facility:[facility] Start: 11-25-2024 ambulatory Sumit Chi Sarabjit Facility:[facility] Start: 11-24-2024 ambulatory Sumit Chi Sarabjit Facility:[facility] Start: 11-18-2024 End: 11-18-2024 ambulatory Sumit Chi Sarabjit Facility:[facility] Start: 11-17-2024 End: 11-17-2024 ambulatory Kamla Ward NP Facility:[facility] Start: 11-14-2024 ambulatory Sumit Chi Sarabjit Facility:[facility] Start: 11-14-2024 End: 11-14-2024 Emergency department patient visit Sumit Chi Sarabjit Facility:[facility] Start: 10-21-2024 End: 10-21-2024 ambulatory Sumit Chi Sarabjit Facility:[facility] Start: 10-13-2024 End: 10-17-2024 Evaluation and management of inpatient Sumit Chi Sarabjit Facility:[facility] Start: 10-13-2024 ambulatory Sumit Chi Sarabjit Facility:[facility] Start: 10-08-2024 End: 10-08-2024 ambulatory Sumit Chi Sarabjit Facility:[facility] Start: 09-05-2024 End: 09-05-2024 ambulatory Sumit Chi Sarabjit Facility:[facility] Start: 09-04-2024 End: 09-04-2024 ambulatory Sumit Chi Sarabjit Facility:[facility] Start: 09-02-2024 End: 09-02-2024 ambulatory Sumit Chi Sarabjit Facility:[facility] Start: 07-03-2024 End: 07-03-2024 ambulatory Sumit Chi Sarabjit Facility:[facility] Start: 06-11-2024 End: 06-11-2024 ambulatory Sumit Chi Sarabjit Facility:[facility] Start: 05-21-2024 End: 05-21-2024 ambulatory Sumit Chi Sarabjit Facility:[facility] Start: 05-14-2024 End: 05-14-2024 ambulatory Sumit Chi Sarabjit Facility:[facility] Start: 03-26-2024 End: 03-26-2024 ambulatory Sumit Chi Sarabjit Facility:[facility] Start: 03-04-2024 End: 03-04-2024 ambulatory Sumit Chi Sarabjit Facility:[facility] Start: 11-19-2023 End: 11-19-2023 ambulatory [facility] Work Phone: Start: 11-19-2023 End: 11-19-2023 Patient encounter procedure [facility]-Priscila Collins [facility] Work Phone: Start: 11-16-2023 End: 11-16-2023 ambulatory AGA GARCIA Facility:[facility] Start: 11-16-2023 End: 11-16-2023 Subsequent hospital visit by physician [facility] Work Phone: Radiology Comment on above: Arthritis of foot [M 19.079] Start: 11-16-2023 End: 11-16-2023 Patient encounter procedure Aga Garcia Work Phone: Podiatry Comment on above: 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) (Primary Dx); Arthritis of foot; Callus of foot Start: 11-07-2023 End: 11-07-2023 ambulatory [facility] Work Phone: Start: 11-07-2023 End: 11-07-2023 Patient encounter procedure [facility]-Laboratory, Phy Office 3rd Flr Start: 07-31-2023 End: 07-31-2023 ambulatory [facility] Work Phone: Start: 07-31-2023 End: 07-31-2023 Patient encounter procedure [facility] Work Phone: Start: 07-17-2023 End: 07-17-2023 ambulatory [facility] Work Phone: Start: 07-17-2023 End: 07-17-2023 [facility] Start: 05-09-2023 End: 05-09-2023 [facility] Start: 04-18-2023 End: 04-18-2023 ambulatory [facility] Work Phone: Start: 04-18-2023 End: 04-18-2023 [facility] Start: 11-01-2022 End: 11-01-[address] Sumit Whipple Work Phone: [facility] Work Phone: Start: 11-01-2022 End: 11-01-[address] Sumit Whipple [facility] Start: 10-24-2022 End: 10-24-2022 Subsequent hospital visit by physician [facility] Work Phone: Radiology Comment on above: Foot pain, bilateral [M79.671, M79.672] Start: 10-12-2022 Refill Karoline Cervantes MD Work Phone: Psychiatry Comment on above: Refill Request Start: 08-29-2022 End: 08-29-[address] Sumit Whipple Work Phone: [facility] Work Phone: Start: 08-29-2022 End: 08-29-[address] Sumit Whipple Work Phone: [facility]-Laboratory, Specimen Start: 08-29-2022 End: 08-29-[address] Sumit Whipple Work Phone: [facility] Start: 08-21-2022 End: 08-21-2022 ambulatory [facility] Work Phone: Start: 08-21-2022 End: 08-21-2022 Patient encounter procedure [facility]-Outpatient [facility] Start: 05-17-2022 End: 05-17-[address] [facility] Karoline Cervantes MD Work Phone: Psychiatry Comment on above: Recurrent major depr essive disorder, in partial remission (HCC) (Primary Dx) Start: 05-04-2022 End: 05-04-2022 ambulatory [facility] Work Phone: Start: 05-04-2022 End: 05-04-2022 Patient encounter procedure [facility]-Laboratory, Phy Office 3rd Flr Start: 03-18-2022 Refill Karoline Cervantes MD Work Phone: Psychiatry Comment on above: Refill Request Start: 03-14-2022 Refill Karoline Cervantes MD Work Phone: Psychiatry Comment on above: Refill Request Start: 02-21-2022 End: 02-21-2022 Patient encounter procedure [facility]-Radiology, [facility] Start: 12-07-2021 End: 12-10-2021 [facility] Start: 11-17-2021 End: 11-17-[address] [facility] Karoline Cervantes MD Work Phone: Psychiatry Comment on above: Recurrent major depr essive disorder, in partial remission (HCC) (Primary Dx) Start: 10-27-2021 End: 10-27-2021 Patient encounter procedure [facility]-Laboratory, Phy Office 3rd Flr Start: 10-24-2021 End: 11-10-2021 [facility] Start: 10-24-2021 [facility] Start: 10-20-2021 End: 10-20-2021 Patient encounter procedure [facility]-Outpatient Breast Imaging Start: 10-10-2021 End: 10-10-2021 [facility] Start: 09-19-2021 End: 09-19-2021 Patient encounter procedure [facility]-Laboratory, Phy Office 3rd Flr Start: 07-25-2021 Patient encounter procedure [facility]-Ultrasound, [facility] Start: 07-14-2021 Patient encounter procedure [facility]-Laboratory, Phy Office 3rd Flr Start: 03-15-2018 End: 03-26-2018 Patient encounter [facility] Procedures Date Procedure Procedure Detail Performing Clinician Start: 11-19-2023 Radiologic examinati on of knee Start: 11-19-2023 CT of head without contrast Start: 11-07-2023 Investigation of tra nsfusion reaction Start: 11-07-2023 Microbial culture, routine Start: 07-31-2023 MRI of brain without contrast Start: 07-17-2023 Urine culture Start: 07-17-2023 X-ray of lumbosacral spine Start: 07-17-2023 Pelvis X-ray Start: 04-18-2023 CT of head without contrast Start: 10-24-2022 Radex foot complete minimum 3 views Aga Marizol Work Phone: Start: 08-21-2022 Bilateral mammography Start: 01-09-2023 Ultrasonography of breast Start: 02-21-2022 Diagnostic radiograp hy of abdomen, decubitus and erect Start: 10-20-2021 Screening mammography Start: 07-25-2021 US urinary tract Start: 09-04-2011 Colonoscopy Karoline burgos MD Work Phone: Urine culture Plan of Treatment Date Care Activity Detail Author Start: 06-04-2030 Urine microalbumin profile DTaP,Tdap,Td Vaccine (3 - Td or Tdap) [facility] Start: 09-23-2028 Urine microalbumin profile [facility] Start: 11-15-2024 Diabetic foot examination Diabetic Foot Exam [facility] Start: 08-13-2023 Advance Directive Discussion Advance Directive Discussion [facility] Start: 04-13-2023 Covid-19 Vaccine () Covid-19 Vaccine () [facility] Start: 04-13-2023 Influenza vaccination Influenza Vacc ine (#1) [facility] Start: 08-13-2022 ADVANCE DIRECTIVE DISCUSSION ADVANCE DIRECTIVE DISCUSSION [facility] Start: 06-13-2022 Glaucoma screening Dilated Retinal E xam [facility] Start: 06-13-2022 Hepatitis C antibody , confirmatory test DILATED RETINAL EXAM [facility] Start: 04-13-2022 Influenza vaccination INFLUENZA (#1) [facility] Start: 03-03-2022 COVID-19 VACCINE (5 - Booster for Pfizer series) COVID-19 VACCINE (5 - Booster for Pfizer series) [facility] Start: 11-11-2021 COVID-19 VACCINE (4 - Booster for Pfizer series) COVID-19 VACCINE (4 - Booster for Pfizer series) [facility] Start: 11-09-2021 3 comp foot exam completed DIABETIC FOOT EXAM [facility] Start: 09-04-2021 Colonoscopy COLONOSCOPY [facility] Start: 09-04-2021 COLORECTAL CANCER SCREENING COLORECTAL CANCER SCREENING [facility] Start: 08-13-2021 ADVANCE DIRECTIVE DISCUSSION ADVANCE DIRECTIVE DISCUSSION [facility] Start: 08-14-2020 ANNUAL PCP TEAM CADASTRAL SURVEYOR VIJAY DISEASE VISIT ANNUAL PCP TEAM CHRONIC DISEASE VISIT [facility] Start: 02-04-2020 Hemoglobin A1c measurement HbA1C [facility] Start: 02-04-2020 Hemoglobin A1c/Hemoglobin.total in Blood HBA1C [facility] Start: 12-27-2019 FECAL OCCULT BLOOD FECAL OCCULT BLOO D [facility] Start: 11-05-2019 Hepatitis B screening URINE ALBUMIN:CREATININE RATIO [facility] Start: 11-05-2019 Hepatitis B surface antibody level LDL CHOLESTEROL [facility] Start: 08-18-2015 PNEUMOCOCCAL: 65+ (2 - PCV) PNEUMOCOCCAL: 65+ (2 - PCV) [facility] Start: 2006 Hepatitis B Vaccine (1 of 3 - Risk 3-dose series) Hepatitis B Vaccine (1 of 3 - Risk 3-dose series) [facility] Start: 2006 RSV Vaccine (1 - 1-d ose 60+ series) RSV Vaccine (1 - 1-dose 60+ series) [facility] Start: 1996 SHINGRIX VACCINE (1 of 2) SHINGRIX VACCINE (1 of 2) [facility] Start: 1991 COLOGUARD (FIT-DNA) COLOGUARD (FIT-D NA) [facility] Start: [address] COLONOGRAPHY [place] Start: 1991 SIGMOIDOSCOPY SIGMOIDOSCOPY [facility] Start: 1964 ANNUAL PCP TEAM CADASTRAL SURVEYOR VIJAY DISEASE VISIT ANNUAL PCP TEAM CHRONIC DISEASE VISIT [facility] Start: 1964 BP CONTROLLED (<130/80) BP CONTROLLE D (<130/80) [facility] XR Foot - left AP an d Lateral and oblique XR FOOT GENERAL 3V AP/LAT/OBL LEFT Radiology Routine Arthritis of foot 11/16/2023 12:41 PM EDT [facility] Work Phone: End: 12-15-2024 XR Foot - left AP and Lateral and oblique XR FOOT GENERAL 3V AP/LAT/OBL LEFT Radiology Routine Arthritis of foot 1 Occurrences starting 11/16/2023 until 12/15/2024 [facility] Work Phone: Comment on above: 1 Occurrences starti ng 11/16/2023 until 12/15/2024 [facility] Immunizations Immunization Date Immunization Notes Care Provider Dennis menon 04-20-2021 influenza virus vacc ine, unspecified formulation [employer] Work Phone: [facility] 10-02-2019 hepatitis A vaccine, adult dosage Karoline Cervantes MD Work Phone: [facility] Work Phone: 06-05-2019 influenza, high dose seasonal, preservative-free Karoline Cervantes MD Work Phone: [facility] 06-30-2017 influenza, seasonal, injectable Karoline Cervantes MD Work Phone: [facility] 08-18-2014 pneumococcal conjuga te vaccine, 13 valent Karoline Cervantes MD Work Phone: [facility] 08-18-2014 pneumococcal polysaccharide vaccine, 23 valent Karoline Cervantes MD Work Phone: [facility] 04-29-2013 influenza virus vacc ine, unspecified formulation Karoline Cervantes MD Work Phone: [facility] 05-10-2012 influenza virus vacc ine, unspecified formulation Karoline Cervantes MD Work Phone: [facility] 05-13-2009 pneumococcal polysaccharide vaccine, 23 valent Karoline Cervantes MD Work Phone: [facility] Work Phone: 05-13-2009 tetanus and diphther ia toxoids, adsorbed, preservative free, for adult use (2 Lf of tetanus toxoid and 2 Lf of diphtheria toxoid) Karoline Cervantes MD Work Phone: [facility] Work Phone: Payers Date Payer Category Payer Self-pay [id number] 2011 Medicare [id number] 2011 Medicare MEDICARE MEDICAR E A AND B [id number] 2011-Present [phone] [place] [address] Medicare [id number] 2011 Medicare MEDICARE MEDICAR E A AND B [id number] 2011-Present [phone] [address] [address] [place] [address] Medicare [id number] 1999 Unknown [id number] 1999 Unknown ANTHEM ANTHEM BC BS FEP PPO [id number] 1999-Present [phone] [address] [place] [address] PPO [id number] 1999 Unknown ANTHEM ANTHEM BC BS FEP PPO [id number] 1999-Present [phone] [address] [place] [address] PPO [id number] Unknown [id number] 2.16.840.1.042002.3.579.2.462 Unknown [id number] 2.16.840.1.499319.3.579.2.462 Unknown [id number] 2.16.840.1.795544.3.579.2.462 Unknown [id number] 2.16.840.1.517823.3.579.2.462 Unknown [id number] 2.16.840.1.856435.3.579.2.462 Unknown [id number] 2.16.840.1.554834.3.579.2.462 Unknown [id number] 2.16.840.1.234902.3.579.2.462 Unknown [id number] 2.16.840.1.956291.3.579.2.462 Unknown [id number] 2.16.840.1.953485.3.579.2.462 Unknown [id number] 2.16.840.1.506429.3.579.2.462 Unknown [id number] 2.16.840.1.144878.3.579.2.462 Unknown [id number] 2.16.840.1.074099.3.579.2.462 Unknown [id number] 2.16.840.1.366377.3.579.2.462 Unknown [id number] 2.16.840.1.873606.3.579.2.462 Unknown [id number] 2.840.1.989849.3.579.2.462 Unknown [id number] 2.840.1.162698.3.579.2.462 Unknown [id number] 2.840.1.392616.3.579.2.462 Unknown [id number] 2.840.1.148645.3.579.2.462 Unknown [id number] 2.840.1.796153.3.579.2.462 Unknown [id number] 2.840.1.628480.3.579.2.462 Unknown [id number] 2.840.1.063960.3.579.2.462 Unknown [id number] 2..840.1.896838.3.579.2.462 Unknown [id number] 2.840.1.110943.3.579.2.462 Unknown [id number] 2.16840.1.115050.3.579.2.462 Unknown [id number] 2.16.840.1.795860.3.579.2.462 Unknown [id number] 2.840.1.888680.3.579.2.462 Unknown [id number] 2.16.840.1.456492.3.579.2.462 Unknown [id number] 2.16840.1.323841.3.579.2.462 Unknown [id number] 2.16.840.1.722010.3.579.2.462 Unknown [id number] 2.16.840.1.163386.3.579.2.462 Unknown [id number] 2.16.840.1.819254.3.579.2.462 Unknown [id number] 2.16.840.1.978880.3.579.2.462 Unknown [id number] 2.16.840.1.229109.3.579.2.462 Unknown [id number] 2.16.840.1.236926.3.579.2.462 Unknown [id number] 2.16.840.1.176223.3.579.2.462 Unknown [id number] 2.16.840.1.375239.3.579.2.462 Unknown [id number] 2.16.840.1.071445.3.579.2.462 Unknown [id number] 2.16.840.1.363783.3.579.2.462 Unknown [id number] 2.16.840.1.858011.3.579.2.462 Unknown [id number] 2.16840.1.984194.3.579.2.462 Unknown [id number] 2.16840.1.212098.3.579.2.462 Social History Date Type Detail Facility Start: 08-24-2020 End: 08-29-2022 Tobacco smoking status WYIS Unknown if ever smoked [facility] Start: 1945 Sex Assigned At Female [facility] Start: 04-03-2011 Tobacco smoking stat us [place] Never smoked tobacco [facility] Start: 08-11-2021 End: 11-16-2023 Alcohol intake Current drinker of alcohol (finding) [facility] Start: 08-18-2014 History SDOH Alcohol Comment once or twice per week [facility] Start: 04-03-2011 Tobacco use and exposure Smokeless tobacco non-user [facility] Work Phone: Start: 09-06-2022 End: 10-24-2022 History of Social function [facility] Start: 09-06-2022 End: 10-24-2022 Tobacco use panel [facility] Adult Depression Screening Assessment 4 [facility] Start: 04-09-2019 Gender identity Identifies as female gender (finding) [facility] Start: 04-09-2019 Sexual orientation Heterosexual (flaquita rizzo) [facility] Medical Equipment Procedure Code Equipment Code Equipment Origin al Text Equipment Identifier Dates 0---Lens Iol +15 .5 Ana Acrsf Iq - [id number] Start: 08-21-2013 0---Lens Iol +15 Ana Acrsf Iq 13 - [id number] Start: 09-04-2013 Comment on above: Description: acrysof iol lens Test blood sugar(s) 1-2 times daily. Dx: Type 2 DM - Controlled E11.9 Insulin: No Start: 08-21-2019 Comment on above: Test blood sugar(s) 1-2 times daily. Dx: Type 2 DM - Controlled E11.9 Insulin: No Goals Date Patient Goal Desired Activity /State Clinical Notes 09-04-2013 to 01-10-2025 Alexey Escobar, RT(R) - 11/16/2023 12:10 PM Dee Montanez RN - 11/16/2023 12:10 PM Aga De Santiago - 11/16/2023 11:54 AM Dee Montanez RN - 11/16/2023 11:44 AM EDT Note Date & Type Note Facility 01-10-2025 Note [facility] 10-17-2024 Note [facility] 10-13-2024 Note [facility] 11-16-2023 Note HNO ID: [id number] Author: DEE SCHULTE RN Service: ? Author Type: Registered Nurse Type: Progress Notes Filed: 11/16/2023 12:51 Note Text: Per Dr. Garcia Aracely was provided with Gel Powerstep Inserts, size 11-12 Womens, and instructed/educated in its application, wear, and care. All questions were answered, and patient was able to demonstrate competence with the necessary skills to utilize the above equipment. Dee Schulte RN [facility] 11-16-2023 Note HNO ID: [id number] Author: ALEXEY ESCOBAR RT(R) Service: Radiology Author Type: Technologist Type: Progress Notes Filed: 11/16/2023 12:42 Note Text: Radiology Service Progress Note PATIENT NAME: Aracely Khan DATE OF SERVICE: November 16, 2023 TIME: 12:32 PM PATIENT IDENTITY VERIFICATION COMPLETED USING TWO (2) IDENTIFIERS: Name and Date of confirmed by patient verbally. FALL SCREENING: Has the patient had 2 falls in the last year or 1 fall with injury or currently using an Ambulatory Assistive Device (Walker, Cane, Wheelchair, Crutches, etc.)? No PATIENT GENDER DATA: Female. status: : No status: NO. PATIENT RELEVANT IMPLANT DATA REVIEWED: Yes PATIENT PRESENTS WITH AN IMPLANTABLE OR ATTACHED GEOMORPHOLOGY TEACHER: No RADIOLOGY DEPARTMENT: General X-ray: Exam(s) Completed: Lower Extremity X-Ray(s): Foot, Left and Wt. Bearing PERIPHERAL IV DATA: Not applicable SIGNED BY: RT Charbel(R) November 16, 2023 12:[address] [facility] 11-16-2023 Note HNO ID: [id number] Author: AGA GARCIA, ? Service: ? Author Type: Physician Type: Progress Notes Filed: 11/16/2023 12:51 Note Text: Subjective: This 78 year old female presents to clinic for diabetic foot check. Patient has the following complaints: left great toe pain. Patient complains of intermittent pain in left great toe. Patient states the pain is intermittent but when present, usually is at night. She states that over the last few weeks, she has been less active and therefore, the pain has not been as bad. Patient admits to being diabetic for multiple years now. Patient +B/T/N in feet at this time. Patient -pain in legs when walking. No other pedal complaints at this time. No change in medications or medical history since last visit. PAIN EVALUATION 11/15/2023 1712 Pain Location: Toe Duration Amount of Time: 10 Duration Units: Hours Frequency: Intermittent Hemoglobin A1C (%) Date Value 08/05/2019 7.7 01/27/2019 7.1 09/18/2018 7.7 03/13/2018 7.6 12/07/2017 8.2 PCP: No primary care provider on file. PAST MEDICAL HISTORY Diagnosis Date Cataract 02/22 s/p surgery DDD (degenerative disc disease), lumbar Dr. Munson Depression Dr. Smith Diastolic dysfunction 02/19 LVH also Essential hypertension, benign 1985 GERD (gastroesophageal reflux disease) Hypervitaminosis B6 Hypothyroidism 05/26 Lumbar disc disease 2005 s/p Laminectomy L4-5 Mixed hyperlipidemia OA (osteoarthritis) of knee s/p Euflexa, Seeing Dr. 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 S/P bariatric surgery 2008 gastric sleeve. Lost 80lbs Sleep apnea DME [facility] for AutoPAP Type II or unspecified type diabetes mellitus without mention of complication, not stated as uncontrolled 1986 Vitamin D deficiency Current Outpatient Medications Medication Sig clotrimazole-betamethasone (LOTRISONE) cream 1 APPLICATION 2 TIMES DAILY DIRECTED hydrOXYzine HCl (ATARAX) 50 mg tablet Take 50 mg by mouth. 1 tab every 6 hours rosuvastatin 40 mg cpSP levothyroxine (SYNTHROID) 88 mcg tablet buPROPion XL (WELLBUTRIN XL) 300 mg 24 hr tablet take 1 tablet by mouth once daily pregabalin (LYRICA) 75 mg capsule Take 1 capsule by mouth three times daily. pantoprazole DR (PROTONIX) 40 mg tablet Take 1 tablet by mouth once daily. metFORMIN (GLUCOPHAGE) 1,000 mg tablet Take 1 tablet by mouth twice daily with meals. Lancets lancets Test blood sugar(s) 1-2 times daily. Dx: Type 2 DM - Controlled E11.9 Insulin: No blood sugar diagnostic (BLOOD GLUCOSE TEST) test strip Test blood sugar(s) 1-2 times daily. Dx: Type 2 DM - Controlled E11.9 Insulin: No lisinopril (ZESTRIL, PRINIVIL) 5 mg tablet Take 1 tablet by mouth once daily. Cholecalciferol, Vitamin D3, 2,000 unit tab Take 1-2 tablets by mouth once daily. Magnesium Oxide 500 mg ORAL Tab Take 500 mg by mouth once daily. calcium citrate/vitamin d3(CALCIUM CITRATE + 315 MG-200 UNIT TAB) one tab once a day DULoxetine (CYMBALTA) 30 mg capsule Take 1 capsule by mouth once daily. (Patient not taking: Reported on 10/24/2022) meloxicam (MOBIC) 7.5 mg tablet Take 7.5 mg by mouth once daily. aspirin, enteric coated (ASPIRIN, ENTERIC COATED) 81 mg EC tablet Take 1 tablet by mouth once daily. simvastatin (ZOCOR) 40 mg tablet Take 1 tablet by mouth once daily. glipiZIDE (GLUCOTROL) 5 mg tablet Take 1 tablet by mouth once daily. levothyroxine (SYNTHROID) 75 mcg tablet Take 1 tablet by mouth once daily. diclofenac sodium (VOLTAREN) 1 % topical gel Apply 2 g to affected area four times daily. (Patient not taking: Reported on 10/24/2022) CPAP AutoPAP 5-10 cmH2O with heated humidity and close clinical follow up with data download after several weeks to ensure that pressures are appropriate. Mask (per patient preference) optional chin strap (if indicated) , filters, tubing, humidifier and lifetime supplies. (A standard size ResMed AirFit N10 nasal mask without chin strap was used for study). cyclobenzaprine (FLEXERIL) 5 mg tablet Take 1 tablet by mouth twice daily as needed. POTASSIUM 99 MG TAB Take one(1) tablet daily. No current facility-administered medications for this visit. ALLERGIES Allergen Reactions Nucynta [Tapentadol] GI Upset Nausea Omeprazole Intolerance Percocet [Oxycodone* Itching Ultram [Tramadol Hc* Itching PAST SURGICAL HISTORY Procedure Laterality Date ADENOSINE NUCLEAR STRESS TEST 09/21 negative, EF 73% ARTHRP KNE CONDYLEANDPLATU MEDIALANDLAT COMPARTMENTS 01/22 Right ARTHRP KNE CONDYLEANDPLATU MEDIALANDLAT COMPARTMENTS 02/18/2019 Dr. Ramsey ASPIRATE/INJ GANGLION CYST;ANY LOCATION removed surgically-- right wrist BMD - HIPS BILAT 05/24; 10/25 normal CARPAL TUNNEL 1990s Left CHEST PA/LAT - ORD 08/24;09/28 normal COLONOSCOPY 08/24 lymphoid polyp, 8 ye (more content not included)... [facility] 11-16-2023 Note HNO ID: [id number] Author: DEE SCHULTE RN Service: ? Author Type: Registered Nurse Type: Progress Notes Filed: 11/16/2023 12:51 Note Text: Patient presents with: Left Foot - Established Patient, Follow Up, Pain, Diabetic Foot Check Right Foot - Established Patient, Follow Up, Diabetic Foot Check Patient presents for follow up diabetic foot care and due for diabetic foot exam and left big toe pain that has been intermittent over the last few months. YANELI- 10/24/22 [facility] 11-16-2023 History of Presen t illness Narrative Radiology Service Progress Note PATIENT NAME: Aracely Khan DATE OF SERVICE: November 16, 2023 TIME: 12:32 PM PATIENT IDENTITY VERIFICATION COMPLETED USING TWO (2) IDENTIFIERS: Name and Date of confirmed by patient verbally. FALL SCREENING: Has the patient had 2 falls in the last year or 1 fall with injury or currently using an Ambulatory Assistive Device (Walker, Cane, Wheelchair, Crutches, etc.)? No PATIENT GENDER DATA: Female. status: : No status: NO. PATIENT RELEVANT IMPLANT DATA REVIEWED: Yes PATIENT PRESENTS WITH AN IMPLANTABLE OR ATTACHED GEOMORPHOLOGY TEACHER: No RADIOLOGY DEPARTMENT: General X-ray: Exam(s) Completed: Lower Extremity X-Ray(s): Foot, Left and Wt. Bearing PERIPHERAL IV DATA: Not applicable SIGNED BY: RT Charbel(R) November 16, 2023 12:32 PM documented in this encounter [facility] 11-16-2023 History of Presen t illness Narrative Per Dr. Garcia, Aracely was provided with Gel Powerstep Inserts, size 11-12 Womens, and instructed/educated in its application, wear, and care. All questions were answered, and patient was able to demonstrate competence with the necessary skills to utilize the above equipment. Dee Schulte RN Images from the original note were not included. Subjective: This 78 year old female presents to clinic for diabetic foot check. Patient has the following complaints: left great toe pain. Patient complains of intermittent pain in left great toe. Patient states the pain is intermittent but when present, usually is at night. She states that over the last few weeks, she has been less active and therefore, the pain has not been as bad. Patient admits to being diabetic for multiple years now. Patient +B/T/N in feet at this time. Patient -pain in legs when walking. No other pedal complaints at this time. No change in medications or medical history since last visit. PAIN EVALUATION 11/15/2023 7552 Pain Location: Toe Duration Amount of Time: 10 Duration Units: Hours Frequency: Intermittent Hemoglobin A1C (%) Date Value 08/05/2019 7.7 01/27/2019 7.1 09/18/2018 7.7 03/13/2018 7.6 12/07/2017 8.2 PCP: No primary care provider on file. PAST MEDICAL HISTORY Diagnosis Date Cataract 02/22 s/p surgery DDD (degenerative disc disease), lumbar Dr. Munson Depression Dr. Smith Diastolic dysfunction 02/19 LVH also Essential hypertension, benign 1985 GERD (gastroesophageal reflux disease) Hypervitaminosis B6 Hypothyroidism 05/26 Lumbar disc disease 2006 s/p Laminectomy L4-5 Mixed hyperlipidemia OA (osteoarthritis) of knee s/p Euflexa, Seeing Dr. 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 S/P bariatric surgery 2008 gastric sleeve. Lost 80lbs Sleep apnea DME [facility] for AutoPAP Type II or unspecified type diabetes mellitus without mention of complication, not stated as uncontrolled 1986 Vitamin D deficiency Current Outpatient Medications Medication Sig clotrimazole-betamethasone (LOTRISONE) cream 1 APPLICATION 2 TIMES DAILY DIRECTED hydrOXYzine HCl (ATARAX) 50 mg tablet Take 50 mg by mouth. 1 tab every 6 hours rosuvastatin 40 mg cpSP levothyroxine (SYNTHROID) 88 mcg tablet buPROPion XL (WELLBUTRIN XL) 300 mg 24 hr tablet take 1 tablet by mouth once daily pregabalin (LYRICA) 75 mg capsule Take 1 capsule by mouth three times daily. pantoprazole DR (PROTONIX) 40 mg tablet Take 1 tablet by mouth once daily. metFORMIN (GLUCOPHAGE) 1,000 mg tablet Take 1 tablet by mouth twice daily with meals. Lancets lancets Test blood sugar(s) 1-2 times daily. Dx: Type 2 DM - Controlled E11.9 Insulin: No blood sugar diagnostic (BLOOD GLUCOSE TEST) test strip Test blood sugar(s) 1-2 times daily. Dx: Type 2 DM - Controlled E11.9 Insulin: No lisinopril (ZESTRIL, PRINIVIL) 5 mg tablet Take 1 tablet by mouth once daily. Cholecalciferol, Vitamin D3, 2,000 unit tab Take 1-2 tablets by mouth once daily. Magnesium Oxide 500 mg ORAL Tab Take 500 mg by mouth once daily. calcium citrate/vitamin d3(CALCIUM CITRATE + 315 MG-200 UNIT TAB) one tab once a day DULoxetine (CYMBALTA) 30 mg capsule Take 1 capsule by mouth once daily. (Patient not taking: Reported on 10/24/2022) meloxicam (MOBIC) 7.5 mg tablet Take 7.5 mg by mouth once daily. aspirin, enteric coated (ASPIRIN, ENTERIC COATED) 81 mg EC tablet Take 1 tablet by mouth once daily. simvastatin (ZOCOR) 40 mg tablet Take 1 tablet by mouth once daily. glipiZIDE (GLUCOTROL) 5 mg tablet Take 1 tablet by mouth once daily. levothyroxine (SYNTHROID) 75 mcg tablet Take 1 tablet by mouth once daily. diclofenac sodium (VOLTAREN) 1 % topical gel Apply 2 g to affected area four times daily. (Patient not taking: Reported on 10/24/2022) CPAP AutoPAP 5-10 cmH2O with heated humidity and close clinical follow up with data download after several weeks to ensure that pressures are appropriate. Mask (per patient preference) optional chin strap (if indicated) , filters, tubing, humidifier and lifetime supplies. (A standard size ResMed AirFit N10 nasal mask without chin strap was used for study). cyclobenzaprine (FLEXERIL) 5 mg tablet Take 1 tablet by mouth twice daily as needed. POTASSIUM 99 MG TAB Take one(1) tablet daily. No current facility-administered medications for this visit. ALLERGIES Allergen Reactions Nucynta [Tapentadol] GI Upset Nausea Omeprazole Intolerance Percocet [Oxycodone* Itching Ultram [Tramadol Hc* Itching PAST SURGICAL HISTORY Procedure Laterality Date ADENOSINE NUCLEAR STRESS TEST 09/21 negative, EF 73% ARTHRP KNE CONDYLE&PLATU MEDIAL&LAT COMPARTMENTS 01/22 Right ARTHRP KNE CONDYLE&PLATU MEDIAL&LAT COMPARTMENTS 02/18/2019 Dr. Ramsey ASPIRATE/INJ GANGLION CYST;ANY LOCATION removed surgically-- right wrist BMD - HIPS BILAT 05/24; 10/25 normal CARPAL TUNNEL 1990s Left CHEST PA/LAT - ORD 08/24;09/28 normal COLONOSCOPY 08/24 lymphoid polyp, 8 years ECHO 02/19 Mild LVH, DD, AoV sclerosis, LAE, Trace MR EMG 04/20 Bilateral L5-S1 radiculopathy, mild LE polyneuropathy HYSTEROSCOPY WBX WWO D AND C ANDOR POLYPECTOMY 09/13/2011 LAMINECTOMY W/O FFD > 2 VERT SEG LUMBAR 2006 surgery on L4 & L5 . Dr Fraser in [facility] PAST SURGICAL HISTORY OF 05/2009 gastric sleeve PAST SURGICAL HISTORY OF 2001 left hip replacement PAST SURGICAL HISTORY OF 1981, 2005 L4-L5 surgery REMOVE CATARACT, INSERT LENS,EX McGannon STRESS ECHO DOBUTAMINE 12/22 normal TONSILLECTOMY PRIMARY/SECONDARY <AGE 13 age 6 Tonsillectomy US KIDNEY 2009 normal US PELVIS 06/23 1 cm endometrial polyp or submucosal fibroid of upper uterine segment FAMILY HISTORY Problem Relation Age of Onset Cancer Mother Cervical CA, DM Type 2, PE following MVA ( age 61) Stroke Father age 55 Lipids Brother DVT Detached Retina Brother None Brother DVT None Brother detached retina Diabetes Sister HTN, DVT Detached Retina Sister Cataract Sister Lipids Sister HTN, DVT Hypertension Sister detached retina None Sister Social History Tobacco Use Smoking status: Never Smokeless tobacco: Never Vaping Use Vaping Use: Never used Substance Use Topics Alcohol use: Yes Comment: once or twice per week Drug use: No REVIEW OF SYSTEMS GENERAL: Negative for Malaise, significant weight loss, fever RESPIRATORY: Negative for cough, wheezing and shortness of breath CARDIOVASCULAR: Negative for chest pain, leg swelling and palpitations GI: Negative for abdominal discomfort, blood in stools or black stools and change in bowel habits : Negative for dysuria, frequency and incontinence MUSCULOSKELETAL: Negative for joint pain or swelling, back pain, and muscle pain. SKIN: Negative for lesions, rash, and itching. HEMATOLOGY/LYMPHOLOGY Negative for prolonged bleeding, bruising easily, and swollen nodes. ENDOCRINE: Negative for cold or heat intolerance, polyuria, polydipsia and goiter. NEURO: negative The remainder of the review of systems is noncontributory. Objective: Patient presents to clinic ambulating in [facility] Constitutional: Pt is a well developed 78 year old female who is alert, oriented, cooperative and in no apparent distress. Eyes: Following during examination. No redness or drainage. Respiratory: RR normal and nonlabored. Even breathing. No evidence of distress. Psychology: Patient is engaged during conversation. Normal affect and mood. Does not appear depressed or anxious. Vasc: DP and PT pulses are palpable bilateral. CFT is less than 5 seconds bilateral. Skin temperature is warm to warm proximal to distal bilateral. There is no edema or varicosities noted. Hair growth present. Neuro: Protective sensation is intact to the foot and toes when tested with the 5.07 SWM bilateral. Vibratory sensation is decreased at the hallux bilateral. Derm: Inspection and palpation performed. Nails 1-5 b/l are normal in length and thickness. Skin is of normal turgor and texture. Hyperkeratosis noted to b/l 5th metatarsal head NO ulcerations, scars, verruca or other lesions noted. Ortho: Ankle joint DF is full with the knee extended and full with knee flexed. No pain or crepitus noted. STJ, MTJ ROM are full and free of pain or crepitus. Muscle strength is 5/5 for dorsiflexors, plantarflexors, inverters, everters. Digital deformities include mild arthritis of left hallux ipj. 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 Patient was seen and evaluated. 2. Patient was instructed on the continued importance of diabetic foot care along with proper diet and keeping their blood sugar under control to prevent complications. Informed patient that she does have some component of neuropathy and for this reason, would avoid barefoot walking and make sure she inspects her foot daily Instructions given both oral and written. 3. Discussed pain in left hallux ipj. Suspect component of hallux ipj arthritis. Would recommend gel inserts and good shoes. Will get xray 4. Callus reduced with dremmel. Aga Garcia DPM Patient presents with: Left Foot - Established Patient, Follow Up, Pain, Diabetic Foot Check Right Foot - Established Patient, Follow Up, Diabetic Foot Check Patient presents for follow up diabetic foot care and due for diabetic foot exam and left big toe pain that has been intermittent over the last few months. YANELI- 10/24/22 documented in this encounter [facility] 11-16-2023 Instructions Aga Garcia - 11/16/2023 12:00 PM EDT Diabetes Foot Care Instructions When you have diabetes, proper foot care is very important. Poor foot care may lead to amputation of a foot or leg. As a person with diabetes, you are more vulnerable to foot problems, because diabetes can damage your nerves and reduce blood flow to your feet. Here are some diabetes foot care tips to follow: Wash and Dry Your Feet Daily Use mild soaps Use warm water Pat your skin dry; do not rub. Thoroughly dry your feet. After washing, use lotion on your feet to prevent cracking. Do not put lotion between your toes. Examine Your Feet Each Day Check the tops and bottoms of your feet. Have someone else look at your feet if you cannot see them. Check for dry, cracked skin. Look for blisters, cuts, scratches, or other sores. Check for redness, increased warmth, or tenderness when touching any area of your feet. Check for ingrown toenails, corns, and calluses. If you get a blister or sore from your shoes, do not pop it. Apply a bandage and wear a different pair of shoes. Take Care of Your Toenails Cut toenails after bathing, when they are soft. Cut toenails straight across and smooth with a nail file. Avoid cutting into the corners of toes. Do not cut cuticles. If you have neuropathy (or decreased sensation in your feet) a back tender fourdrinier should always cut your toenails. Be Careful When Exercising Walk and exercise in comfortable shoes. Do not exercise when you have open sores on your feet. Protect Your Feet With Shoes and Socks Never go barefoot. Always protect your feet by wearing shoes or hard-soled slippers or footwear. Avoid shoes with high heels and pointed toes. Avoid shoes that expose your toes or heels (such as open-toed shoes or sandals). These types of shoes increase your risk for injury and potential infections. Try on new footwear with the type of socks you usually wear. Do not wear new shoes for more than an hour at a time. Change your socks daily. Look and feel inside your shoes before putting them on to make sure there are no foreign objects or rough areas. Avoid tight socks. Wear natural-fiber socks (cotton, wool, or a cotton-wool blend). Wear special shoes if your health care provider recommends them. Wear shoes/boots that will protect your feet from various weather conditions (cold, moisture, etc.). Make sure your shoes fit properly. If you have neuropathy (nerve damage), you may not notice that your shoes are too tight. Perform the footwear test described below. Footwear Test Use this simple test to see if your shoes fit correctly: Stand on a piece of paper. (Make sure you are standing and not sitting, because your foot changes shape when you stand.) Trace the outline of your foot. Trace the outline of your shoe. Compare the tracings: Is the shoe too narrow? Is your foot crammed into the shoe? The shoe should be at least 1/2 inch longer than your longest toe and as wide as your foot. Proper Shoe Choices The following types of shoes are best for people with diabetes Closed toes and heels Leather uppers without a seam inside At least 1/2 inch extra space at the end of your longest toe Inside of shoe should be soft with no rough areas Outer sole should be made of stiff material Shoes should be at least as wide as your feet Tips for Foot Care in Diabetes Don't wait to treat a minor foot problem if you have diabetes. Follow your health care provider's guidelines and first aid guidelines. Report foot injuries and infections to your health care provider immediately. Check water temperature with your elbow, not your foot. Do not use a heating pad on your feet. Do not cross your legs. Do not self-treat your corns, calluses, or other foot problems. Go to your health care provider or back tender fourdrinier to treat these conditions. Powerstep Original Full length. Can purchase at [facility] [employer] and boots,shoes and more here in [place], [employer] in [place] or [place]. Also can find in [place] in [facility]. Powersteps can also be purchased online, starting around $45.00 If you have a metatarsal or dancer pad for your feet apply the pad directly to the insole so you can interchange between your shoes. Find a shoe with a removable insole and take this out and replace with your powerstep insole. Always bring powersteps with you when shopping for shoes so that you can make sure that everything fits well together documented in this encounter [facility] 10-24-2022 History of Presen t illness Narrative Radiology Service Progress Note PATIENT NAME: Aracely Khan DATE OF SERVICE: October 24, 2022 TIME: 9:10 AM PATIENT IDENTITY VERIFICATION COMPLETED USING TWO (2) IDENTIFIERS: Name and Date of confirmed by patient verbally. FALL SCREENING: Has the patient had 2 falls in the last year or 1 fall with injury or currently using an Ambulatory Assistive Device (Walker, Cane, Wheelchair, Crutches, etc.)? No PATIENT GENDER DATA: Female. status: : No status: N/A PATIENT RELEVANT IMPLANT DATA REVIEWED: Not Applicable RADIOLOGY DEPARTMENT: General X-ray: Exam(s) Completed: Lower Extremity X-Ray(s): Feet, Bilateral and Wt. Bearing PERIPHERAL IV DATA: Not applicable SIGNED BY: RT Carrillo(R) October 24, 2022 9:10 AM documented in this encounter [facility] 05-17-2022 History of Presen t illness Narrative Virtual Psychiatric Visit 30 minutes with patient consent Patient Identification: WF many years from a 2 yr marriage, Retired [employer] 1998, no children. First dx Depression [facility] [id number] Moss and a therapist in [facility]. Tried Prozac (unclear response), Lexapro (worked -- switched to Cymbalta for pain). Saw Ha Han Present Psychiatric Medications: Cymbalta 30 mg Wellbutrin XL 300 mg CC: medication follow up HPI: Aracely states she is doing well overall. Mood stable. Good interest and motivation. Eating and sleeping well. Overwhelmed at times when busy. Stressed with some issues at restoration which is dying and may need to combine with another hindu. Enjoys restoration and [employer] study. Had a big family reunion recently which was busy but fun -- still has sisters staying with her. Medical health is very good -- has been able to discontinue some medications and has lost 40 lbs in past year. 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 Medication working well. Risks and benefits of the medication, including any black box warnings, were discussed with the patient. PAST MEDICAL HISTORY Diagnosis Date Cataract 02/22 s/p surgery DDD (degenerative disc disease), lumbar Dr. Munson Depression Dr. Smith Diastolic dysfunction 02/19 LVH also Essential hypertension, benign 1985 GERD (gastroesophageal reflux disease) Hypervitaminosis B6 Hypothyroidism 05/26 Lumbar disc disease 2006 s/p Laminectomy L4-5 Mixed hyperlipidemia OA (osteoarthritis) of knee s/p Euflexa, Seeing Dr. 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 S/P bariatric surgery 2008 gastric sleeve. Lost 80lbs Sleep apnea DME [employer] for AutoPAP Type II or unspecified type diabetes mellitus without mention of complication, not stated as uncontrolled 1986 Vitamin D deficiency PAST SURGICAL HISTORY Procedure Laterality Date ADENOSINE NUCLEAR STRESS TEST 09/21 negative, EF 73% ASPIRATE/INJ GANGLION CYST;ANY LOCATION removed surgically-- right wrist BMD - HIPS BILAT 05/24; 10/25 normal CARPAL TUNNEL 1990s Left CHEST PA/LAT - ORD 08/24;09/28 normal COLONOSCOPY 08/24 lymphoid polyp, 8 years ECHO 02/19 Mild LVH, DD, AoV sclerosis, LAE, Trace MR EMG 04/20 Bilateral L5-S1 radiculopathy, mild LE polyneuropathy HYSTEROSCOPY WBX WWO D AND C ANDOR POLYPECTOMY 09/13/2011 LAMINECTOMY,>2 SGMT,LUMBAR 2006 surgery on L4 & L5 . Dr Fraser in [place] PAST SURGICAL HISTORY OF 05/2009 gastric sleeve PAST SURGICAL HISTORY OF 2001 left hip replacement PAST SURGICAL HISTORY OF 1981, 2005 L4-L5 surgery REMOVAL OF TONSILS,<13 Y/O age 6 Tonsillectomy REMOVE CATARACT, INSERT LENS,EX McGannon STRESS ECHO DOBUTAMINE 12/22 normal TOTAL KNEE REPLACEMENT 01/22 Right TOTAL KNEE REPLACEMENT 02/18/2019 Dr. Ramsey US KIDNEY 2009 normal US PELVIS 06/23 1 cm endometrial polyp or submucosal fibroid of upper uterine segment Interval Progress: Stable SINGLE ORGAN PSYCH EXAM: Constitutional: Well developed, Well nourished, Well groomed Musculoskeletal: Gait: Normal Pain: 0 Psychiatric: Speech: Clear & distinct Language: Normal Associations: Intact Thought Process:Logical, Coherent and Rational Progression:There was no evidence of disturbance in thought perception or progression. Fund of Knowledge: Appropriate and Adequate MSE: Orientation: Person, Place, Time and Situation Memory: Recent intact, Remote intact and Immediate intact Concentration: Normal Mood: 80 Affect: Full and appropriate to topic Suicide: None Homicide: None PFSH: Drugs: denies ETOH: 1 drink weekly Legal: denies Living Situation: living alone in own home Vocational Situation: retired 1998 Support Systems: Brother, sisters, gf Leisure: volunteering, ipad, reading, TV, crafting Spiritual: Raised Confucianist. Nondenominational : denies FAMILY PSYCHIATRIC HISTORY: Brother with anxiety as a child. Brother with Bipolar. 3 sisters with depression DATA REVIEWED: Electronic medical record TREATMENT PLAN: 1. Continue present medication DIAGNOSIS: PRIMARY: Major Depression, Recurrent PROVISIONAL: r/o Bipolar II GAF: 70-61 Some mild symptoms or some difficulty in social, occupational, or school functioning, but generally functioning pretty well. Follow Up: 6 months Karoline Cervantes MD documented in this encounter [facility] 11-17-2021 History of Presen t illness Narrative Virtual Psychiatric Visit 30 minutes with patient consent Patient Identification: WF many years from a 2 yr marriage, Retired [employer] 1998, no children. First dx Depression [facility] [id number] Moss and a therapist in [facility]. Tried Prozac (unclear response), Lexapro (worked -- switched to Cymbalta for pain). Saw Kinsey Medley. Seeing therapist Ha Durand Present Psychiatric Medications: Cymbalta 30 mg Wellbutrin XL 300 mg CC: depression HPI: Aracely states she had a good holiday season then became depressed and irritable and realized she had accidentally was not taking Cymbalta. She went back on it and is feeling better. 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 Seeing a new counselor for a couple of sessions and feels it has brought up some important issues -- loss of best friend 10 yrs ago and missing the closeness of a relationship after end of last one. Very active at restoration. Spends time with brother. Having family over for [employer]. Enjoys daily routines. Likes to read. Doing crafts. Currently mood stable. Good interest and motivation. Eating and sleeping well. Medication working well. Risks and benefits of the medication, including any black box warnings, were discussed with the patient. PAST MEDICAL HISTORY Diagnosis Date Cataract 02/22 s/p surgery DDD (degenerative disc disease), lumbar Dr. Munson Depression Dr. Smith Diastolic dysfunction 02/19 LVH also Essential hypertension, benign 1985 GERD (gastroesophageal reflux disease) Hypervitaminosis B6 Hypothyroidism 05/26 Lumbar disc disease 2006 s/p Laminectomy L4-5 Mixed hyperlipidemia OA (osteoarthritis) of knee s/p Euflexa, Seeing Dr. 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 S/P bariatric surgery 2009 gastric sleeve. Lost 80lbs Sleep apnea DME [facility] for AutoPAP Type II or unspecified type diabetes mellitus without mention of complication, not stated as uncontrolled 1986 Vitamin D deficiency PAST SURGICAL HISTORY Procedure Laterality Date ADENOSINE NUCLEAR STRESS TEST 09/21 negative, EF 73% ASPIRATE/INJ GANGLION CYST;ANY LOCATION removed surgically-- right wrist BMD - HIPS BILAT 05/24; 10/25 normal CARPAL TUNNEL 1990s Left CHEST PA/LAT - ORD 08/24;09/28 normal COLONOSCOPY 08/24 lymphoid polyp, 8 years ECHO 02/19 Mild LVH, DD, AoV sclerosis, LAE, Trace MR EMG 04/20 Bilateral L5-S1 radiculopathy, mild LE polyneuropathy HYSTEROSCOPY WBX WWO D AND C ANDOR POLYPECTOMY 09/13/2011 LAMINECTOMY,>2 SGMT,LUMBAR 2006 surgery on L4 & L5 . Dr Fraser in [facility] PAST SURGICAL HISTORY OF 05/2009 gastric sleeve PAST SURGICAL HISTORY OF 2001 left hip replacement PAST SURGICAL HISTORY OF 1981, 2005 L4-L5 surgery REMOVAL OF TONSILS,<13 Y/O age 6 Tonsillectomy REMOVE CATARACT, INSERT LENS,EX McGannon STRESS ECHO DOBUTAMINE 12/22 normal TOTAL KNEE REPLACEMENT 01/22 Right TOTAL KNEE REPLACEMENT 02/18/2019 Dr. Ramsey US KIDNEY 2009 normal US PELVIS 06/23 1 cm endometrial polyp or submucosal fibroid of upper uterine segment Interval Progress: Stable SINGLE ORGAN PSYCH EXAM: Constitutional: Well developed, Well nourished, Well groomed Musculoskeletal: Gait: Normal Pain: 0 Psychiatric: Speech: Clear & distinct Language: Normal Associations: Intact Thought Process:Logical, Coherent and Rational Progression:There was no evidence of disturbance in thought perception or progression. Fund of Knowledge: Appropriate and Adequate MSE: Orientation: Person, Place, Time and Situation Memory: Recent intact, Remote intact and Immediate intact Concentration: Normal Mood: 80 Affect: Full and appropriate to topic Suicide: None Homicide: None PFSH: Drugs: denies ETOH: 1 drink weekly Legal: denies Living Situation: living alone in own home Vocational Situation: retired 1998 [employer] Support Systems: Brother, sisters, gf Leisure: volunteering, ipad, reading, TV, crafting Spiritual: Raised Confucianist. Nondenominational : denies FAMILY PSYCHIATRIC HISTORY: Brother with anxiety as a child. Brother with Bipolar. 3 sisters with depression DATA REVIEWED: Electronic medical record TREATMENT PLAN: 1. Continue present medication DIAGNOSIS: PRIMARY: Major Depression, Recurrent PROVISIONAL: r/o Bipolar II GAF: 70-61 Some mild symptoms or some difficulty in social, occupational, or school functioning, but generally functioning pretty well. Follow Up: 6 months Karoline Cervantes MD documented in this encounter [facility] 09-04-2013 History of Past i llness Narrative Problem Noted Date Resolved Date Cataract, left eye 09/04/2013 09/04/2013 Other and combined forms of senile cataract 07/3 08/21/2013 Depression 09/07/2014 documented as of this encounter (statuses as of 11/17/2021) [address]23-2014 History of Past illness Narrative* Problem Noted Date Resolved Date Cataract, left eye 09/04/2013 09/04/2013 Other and combined forms of senile cataract 07/3 08/21/2013 Depression 09/07/2014 documented as of this encounter (statuses as of 03/15/2022) [facility] History of Past illness Narrative* Problem Noted Date Resolved Date Cataract, left eye 09/04/2013 09/04/2013 Other and combined forms of senile cataract 07/3 08/21/2013 Depression 09/07/2014 documented as of this encounter (statuses as of 03/20/2022) [address]23-2014 History of Past illness Narrative* Problem Noted Date Resolved Date Cataract, left eye 09/04/2013 09/04/2013 Other and combined forms of senile cataract 07/3 08/21/2013 Depression 09/07/2014 documented as of this encounter (statuses as of 05/17/2022) [address]23-2014 History of Past illness Narrative* Problem Noted Date Resolved Date Cataract, left eye 09/04/2013 09/04/2013 Other and combined forms of senile cataract 07/3 08/21/2013 Depression 09/07/2014 documented as of this encounter (statuses as of 10/12/2022) [address]-2014 History of Past illness Narrative* Problem Noted Date Diagnosed Date Resolved Date Cataract, left eye 09/04/2013 4 Other and combined forms of senile cataract 03/11/2013 08/21/2013 Depression 09/07/2014 documented as of this encounter (statuses as of 06/16/2023) [address]2014 History of Past illness Narrative* Problem Noted Date Diagnosed Date Resolved Date Cataract, left eye 09/04/2013 4 Other and combined forms of senile cataract 03/11/2013 08/21/2013 Depression 09/07/2014 documented as of this encounter (statuses as of 11/17/2023) [facility] History of Past illness Narrative* Problem Noted Date Diagnosed Date Resolved Date Cataract, left eye 09/04/2013 4 Other and combined forms of senile cataract 03/11/2013 08/21/2013 Depression 09/07/2014 documented as of this encounter (statuses as of 11/16/2023) [facility] [place] [facility] Work Phone: Evaluation note* Diagnosis Recurrent major depressive disorder, in partial remission (HCC)- Primary documented in this encounter [facility] note* Diagnosis Recurrent major depressive disorder, in partial remission (HCC)- Primary documented in this encounter [facility] note* Diagnosis Onset Date Resolution Status Cyst of left breast acute [facility] Work Phone: evaluation note* Diagnosis Foot pain, bilateral Pain in limb documented in this encounter [facility] note* Diagnosis Arthritis of foot Unspecified arthropathy, ankle and foot documented in this encounter [facility] note* Diagnosis Other diabetic neurological complication associated with type 2 diabetes mellitus (HCC)- Primary Arthritis of foot Unspecified arthropathy, ankle and foot Callus of foot Corns and callosities documented in this encounter [facility] for referral (narrative)* Diagnostic Procedure Only (Routine) - Closed Specialty Diagnoses / Procedures Referred By Contac t Referred To Contact XR IMAGING Diagnoses Foot pain, bilateral Procedures XR FOOT GENERAL 3V AP/LAT/OBL BILATERAL RADEX FOOT COMPLETE MINIMUM 3 VIEWS Aga Garcia [address] [place] [address] [place] [address] Referral ID Status Reason Start Date Expiration Date V isits Requested Visits Authorized [id number] Closed Auto-Generate d Referral 10/20/2022 11/19/2023 1 1 [facility] for referral (narrative)* Diagnostic Procedure Only (Routine) - Closed Specialty Diagnoses / Procedures Referred By Contac t Referred To Contact XR IMAGING Diagnoses Arthritis of foot Procedures XR FOOT GENERAL 3V AP/LAT/OBL LEFT RADEX FOOT COMPLETE MINIMUM 3 VIEWS Testshruthi Aga [address] [place] [address] [place] [address] Referral ID Status Reason Start Date Expiration Date V isits Requested Visits Authorized [id number] Closed Auto-Generate d Referral 11/16/2023 12/15/2024 1 1 [facility] for visit Narrative* Diagnostic Procedure Only (Routine) - Closed Specialty Diagnoses / Procedures Referred By Contac t Referred To Contact XR IMAGING Diagnoses Foot pain, bilateral Procedures XR FOOT GENERAL 3V AP/LAT/OBL BILATERAL RADEX FOOT COMPLETE MINIMUM 3 VIEWS MarizolAga [address] [place] [address] [place] [address] Referral ID Status Reason Start Date Expiration Date V isits Requested Visits Authorized [id number] Closed Auto-Generate d Referral 10/20/2022 11/19/2023 1 1 [facility] for visit Narrative* Diagnostic Procedure Only (Routine) - Closed Specialty Diagnoses / Procedures Referred By Contac t Referred To Contact XR IMAGING Diagnoses Arthritis of foot Procedures XR FOOT GENERAL 3V AP/LAT/OBL LEFT RADEX FOOT COMPLETE MINIMUM [address] [place] [address] [place] [address] Referral ID Status Reason Start Date Expiration Date V isits Requested Visits Authorized [id number] Closed Auto-Generate d Referral 11/16/2023 12/15/2024 1 1 [facility] Summary Purpose Family History No Family History Records Found Relationship Condition Age at Onset Recorded Date/T tracee mother Malignant neoplasm Unknown brother Cerebrovascular accident (CVA) Unknown Advance Directives No Advanced Directives Records Found Advance Directive Response Recorded Date/ Time Living Will No October 22, 2018 1:26pm Power of Professor Of Literacy No October 22 1:26pm Advance Directive Response Recorded Date/ Time Living Will No October 22, 2018 12:26pm Power of Professor Of Literacy No October 22 12:26pm Chief Complaint and Reason for Visit Chief Complaint CKD TYPE 2 DM W/ CKD SCREENING TYPE 2 DM W/ CKD Chief Complaint TYPE 2 DM W/ CKD Chief Complaint LEFT BREAST LUMP Chief Complaint LEFT BREAST LUMP L BREAST BIRADS 4 Reason for Visit Cyst of left breast Chief Complaint HEADACHE Chief Complaint HEADACHE Repeated falls Chief Complaint Repeated falls Chief Complaint Repeated falls INJURY OF HEAD Additional Source Comments INFORMATION SOURCE (unrecogn ized section and content) DATE CREATED AUTHOR 03/27/2018 [facility] DATE CREATED AUTHOR AUTHOR'S ORGANIZ ATION 02/22/[address] [facility] [place] [facility] DATE CREATED AUTHOR AUTHOR'S ORGANIZ ATION 11/22/2023 [facility] DATE CREATED AUTHOR AUTHOR'S ORGANIZ ATION 02/25/2025 [facility] Source Comments (unrecognize d section and content) In the event this informatio n is protected by the Federal Confidentiality of Alcohol and Drug Abuse Patient Records regulations: The Federal rules restrict any use of the information to criminally investigate or prosecute any alcohol or drug abuse patient.[facility] the event this information is protected by the Federal Confidentiality of Alcohol and Drug Abuse Patient Records regulations: The Federal rules restrict any use of the information to criminally investigate or prosecute any alcohol or drug abuse patient.[facility] the event this information is protected by the Federal Confidentiality of Alcohol and Drug Abuse Patient Records regulations: The Federal rules restrict any use of the information to criminally investigate or prosecute any alcohol or drug abuse patient.[facility] Health[facility] the event this information is protected by the Federal Confidentiality of Alcohol and Drug Abuse Patient Records regulations: The Federal rules restrict any use of the information to criminally investigate or prosecute any alcohol or drug abuse patient.[facility] the event this information is protected by the Federal Confidentiality of Alcohol and Drug Abuse Patient Records regulations: The Federal rules restrict any use of the information to criminally investigate or prosecute any alcohol or drug abuse patient.[facility] Health[facility] the event this information is protected by the Federal Confidentiality of Alcohol and Drug Abuse Patient Records regulations: The Federal rules restrict any use of the information to criminally investigate or prosecute any alcohol or drug abuse patient.[facility] Health[facility] the event this information is protected by the Federal Confidentiality of Alcohol and Drug Abuse Patient Records regulations: The Federal rules restrict any use of the information to criminally investigate or prosecute any alcohol or drug abuse patient.[facility] Reason for Visit (unrecogniz ed section and content) Reason Comments Follow Up Reason Onset Date Comments Refill Request 03/14/2022 Reason Comments Refill Request Reason Onset Date Comments Refill Request 10/12/2022 Reason Comments Established Patient Follow Up Pain Diabetic Foot Check Care Teams (unrecognized sec tion and content) Team Status: Active Member Role Status Dates Dr. Logan Diaz MD Family Provider Active Dr. Sumit Whipple MD Primary Care Provider Active Team Status: Inactive Member Role Status Dates Dr. Sumit Whipple MD Primary Care Provider, Referring Provider Active Dr. Mikayla Dukes MD Attending Provider Active Team Status: Inactive Member Role Status Dates Dr. Sumit Whipple MD Primary Care Provider, Attending Provider Active Team Status: Inactive Member Role Status Dates Dr. Sumit Whipple MD Primary Care Provider Active Dr. Mikayla Dukes MD Attending Provider Active Team Status: Inactive Member Role Status Dates Dr. Sumit Whipple MD Primary Care Provi shayne, Attending Provider, Referring Provider Active FOR RECORDS PERTAINING TO PATIENTS WHO ARE OR HAVE BEEN ENROLLED IN A CHEMICAL DEPENDENCY/SUBSTANCEABUSE PROGRAM, SOME INFORMATION MAY BE OMITTED. This clinical summary was aggregated from multiple sources. Caution should be exercised in using it in the provision of clinical care. This summary normalizes information from multiple sources, and as a consequence, information in this document may materially change the coding, format and clinical context of patient data. In addition, data may be omitted in some cases. CLINICAL DECISIONS SHOULD BE BASED ON THE PRIMARY CLINICAL RECORDS. [employer] provides no warranty or guarantee of the accuracy or completeness of information in this document.
[2025-02-26 20:00] LABS: Xtra Tube Kwok EXTRA TUBE
[2025-03-02 15:08] LABS: PROEL- A/G Ratio 1.1 (0.7-1.7); PROEL- Albumin 3.4 g/dL (2.9-4.4); PROEL- Alpha-1 Globulin 0.3 g/dL (0.0-0.4); PROEL- Alpha-2 Globulin 1.2 g/dL (0.4-1.0); PROEL- Beta Globulin 1.0 g/dL (0.7-1.3); PROEL- Gamma Globulin 0.6 g/dL (0.4-1.8); PROEL- Globulin, Total 3.1 g/dL (2.2-3.9); PROEL- TOTAL PROTEIN 6.5 g/dL (6.0-8.5); PROEL-M-Spike Comment: g/dL (Not Observed); PROELU- Albumin, Urine 71.6 % (.); PROELU- Alpha-1-Globulin,Ur 0.9 % (.); PROELU- Alpha-2-Globulin,Ur 5.1 % (.); PROELU- Beta Globulin, Ur 11.9 % (.); PROELU- Gamma Globulin, Ur 10.5 % (.); Total Protein, Ur 87.8 mg/dL (Not Estab.)
== END | disposition home or self-care (01) ==
LOC: POLAB3 11:57
PROVIDERS: PCP Family Medicine Geriatric Medicine; Visit Provider Family Medicine Geriatric Medicine
DX: M87.9 Osteonecrosis, unspecified (principal)
CPT/HCPCS: 36415; 84165; 84166

== ENCOUNTER → 2025-02-26 | Outpatient (CLI) | payer MEDICARE, BC, SELFPAY ==
--- NOTE | 2025-02-26 12:15 | CT_ITS ---
PROCEDURE: BRAIN/HEAD WITHOUT CONTRAST 02/26/2025 REASON FOR EXAM: CLOSED HEAD INJURY TECHNIQUE: BRAIN/HEAD WITHOUT CONTRAST Coronal and Sagittal reconstruction series were provided. One or more dose reduction techniques were used (e.g., Automated exposure control, adjustment of the mA and/or kV according to patient size, use of iterative reconstruction technique. RADIATION DOSE SUMMARY: CTDlvol: 44.99 mGy DLP: 829.85 mGycm COMPARISON: Prior study dated January 07, 2025. FINDINGS: Brain: Low density in the periventricular white matter suggests mild chronic small vessel ischemic changes. CSF Spaces: Mild generalized cerebral atrophy Sinuses/Mastoids: Clear at visualized levels Bones: Hyperostosis frontalis interna. CT/Brain/Head without Contrast IMPRESSION: CHRONIC CHANGES. NO ACUTE FINDINGS. Reading Location: [place] [id number]
== END | disposition home or self-care (01) ==
LOC: CT 12:14
PROVIDERS: PCP Family Medicine Geriatric Medicine; Referring Provider Family Medicine Geriatric Medicine; Visit Provider Family Medicine Geriatric Medicine
DX: S09.90XA Unspecified injury of head, initial encounter (principal); X58.XXXA Exposure to other specified factors, initial encounter; R93.7 Abnormal findings on diagnostic imaging of other parts of musculoskeletal system
CPT/HCPCS: 70450

== ENCOUNTER 2025-03-05 22:35 | Observation (INO) | payer MEDICARE, BC, SELFPAY ==
[2025-03-05 22:35] VITALS: BP 107/70; PULSE 74; RESP 18; TEMP 36.8; O2SAT 100; BMI 28.0
--- NOTE | 2025-03-05 22:49 | CT_ITS ---
PROCEDURE: BRAIN/HEAD WITHOUT CONTRAST 03/05/2025 REASON FOR EXAM: TRAUMA TECHNIQUE: BRAIN/HEAD WITHOUT CONTRAST Coronal and Sagittal reconstruction series were provided. One or more dose reduction techniques were used (e.g., Automated exposure control, adjustment of the mA and/or kV according to patient size, use of iterative reconstruction technique. RADIATION DOSE SUMMARY: CTDlvol: 45 mGy DLP: 813 mGycm COMPARISON: CT head on 02/27/2020 FINDINGS: Brain: No acute intracranial hemorrhage, mass effect, or midline shift. Low density in the periventricular white matter suggests mild chronic small vessel ischemic changes. CSF Spaces: Mild generalized cerebral atrophy Sinuses/Mastoids: Predominantly clear Bones: No displaced calvarial fracture. No significant scalp hematoma. Atherosclerotic calcification of the intracranial vasculature. Sequela of bilateral cataract extraction. Degenerative changes of the TMJs. CT/Brain/Head without Contrast IMPRESSION: No acute intracranial abnormality. Senescent changes. Reading Location: [id number]
--- NOTE | 2025-03-05 22:49 | CT_ITS ---
PROCEDURE: SPINE LUMBAR WITHOUT CONTRAST 03/05/2025 REASON FOR EXAM: TRAUMA TECHNIQUE: SPINE LUMBAR WITHOUT CONTRAST Coronal and Sagittal reconstruction series were provided. One or more dose reduction techniques were used (e.g., Automated exposure control, adjustment of the mA and/or kV according to patient size, use of iterative reconstruction technique COMPARISON: 12/19/2024 RADIATION DOSE SUMMARY: CTDlvol: 100 mGy DLP: 2012 mGycm FINDINGS: There is a mid sacral fracture, series 607, image 48, adjacent presacral hemorrhage. Old L2 fracture status post kyphoplasty. Status post posterior decompression, L4, L5. Diffuse facet arthritis. Multilevel disc space narrowing, endplate sclerosis, osteophyte formation and vacuum disc. No acute lumbar spine fracture or dislocation. No acute soft tissue pathology otherwise noted. CT/Spine Lumbar without Contrast IMPRESSION: Acute mid sacral fracture. Reading Location: [place] [address]
--- NOTE | 2025-03-05 22:49 | CT_ITS ---
PROCEDURE: SPINE CERVICAL WITHOUT CONTRAS 03/05/2025 REASON FOR EXAM: TRAUMA TECHNIQUE: SPINE CERVICAL WITHOUT CONTRAS Coronal and Sagittal reconstruction series were provided. One or more dose reduction techniques were used (e.g., Automated exposure control, adjustment of the mA and/or kV according to patient size, use of iterative reconstruction technique. RADIATION DOSE SUMMARY: CTDlvol: 21 mGy DLP: 371 mGycm COMPARISON: Cervical spine radiographs on 12/24/2020 FINDINGS: Vertebral body heights and alignment are maintained. No displaced fracture. 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 There is multilevel disc height loss with endplate osteophyte formation, uncovertebral and facet arthropathy, and posterior disc calcification which is most pronounced at C4-5 and C5-6. Prevertebral soft tissues are unremarkable. Mosaic attenuation at the lung apices. Carotid calcifications. CT/Spine Cervical without Contras IMPRESSION: No acute osseous abnormality of the cervical spine. Multilevel degenerative ch anges are worst at C4-5 and C5-6. Reading Location: [facility]
--- NOTE | 2025-03-05 22:51 | ED.VIS.FALL ---
HPI HPI - Fall History of Present Illness Chief Complaint: Fall Narrative Narrative: 79-year-old female past medical history of anxiety, has had previous hip replacement, presents with 2 falls this evening. She relates history that she usually uses a walker and this evening when she went to the bathroom, she was using her walker but it does not fit by the toilet. She leaves the walker by the shower and takes a few steps. She fell backwards in her head against the toilet. She denies loss of consciousness, no use of blood thinners. She was able to get herself up. Later on in the evening, her sister who was with her states that there were 2 people standing at the table trying to get her medication ready, and the patient felt shaky and fell backwards. They called EMS to help her up and present her to the emergency department because of her frequent falls. She has had 8 or 9 falls since September. Her sister states that patient has been very shaky and unsteady recently. 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 [facility] Medical History Dizziness Hyperglycemia due to type 2 diabetes mellitus Orthostatic hypotension Abnormal gait Anxiety Depression Sleep apnea Thyroid disease Diabetes mellitus Hypertension Home Medications ?Medication ?Instructions ?Recorded ?Last Taken ?Type pantoprazole 40 mg tablet,delayed 40 mg PO DAILY GERD 10/22/18 Unknown History release levothyroxine 100 mcg tablet 100 mcg PO QDAY thyroid 12/10/23 Unknown History rosuvastatin 40 mg tablet 40 mg PO QDAY HLD 12/10/23 Unknown History ascorbic acid (vitamin C) 500 mg 500 mg PO QDAY vitamin 05/21/24 Unknown History tablet calcium 600 mg (as carbonate)-vit 1 tab PO QAM supplement 05/21/24 Unknown History D3 20 mcg (800 unit) chewable tablet (Caltrate plus D) cyanocobalamin (vitamin B-12) 1,000 mcg PO QDAY supplement 05/21/24 Unknown History 1,000 mcg tablet (Vitamin B-12) d-mannose 500 mg capsule 500 mg PO .QD spasms 05/21/24 Unknown History docusate sodium 100 mg capsule 100 mg PO BID stool softner 05/21/24 Unknown History hydroxyzine HCl 50 mg tablet 50 mg PO Q6H PRN anxiety 05/21/24 Unknown History magnesium oxide 500 mg capsule 500 mg PO QDAY SUPPLEMENT 05/21/24 Unknown History metformin 1,000 mg tablet 1,000 mg PO BID DM 05/21/24 Unknown History acetaminophen 500 mg tablet 500 mg PO Q8H PRN PAIN 06/11/24 Unknown History tiarra.stocking,knee,reg,smal #24 ea 10/17/24 Unknown Rx (T.E.D. Anti-Embolism Stocking) fludrocortisone 0.1 mg tablet 0.1 mg PO BREAKFAST #30 tabs 10/17/24 Unknown Rx diphenhydramine HCl 25 mg capsule 25 mg PO BID PRN PRN itching #20 11/14/24 Unknown Rx (Benadryl) caps bupropion HCl 300 mg 24 hr tablet, 300 mg PO QDAY depression #90 tabs 12/03/24 Unknown Rx extended release carbidopa 25 mg-levodopa 100 mg 1 tab PO TID 12/03/24 Unknown History tablet midodrine 10 mg tablet 15 mg PO TID 12/03/24 Unknown History bupropion HCl 150 mg 24 hr tablet, 150 mg PO QAM #90 tabs 12/26/24 Unknown Rx extended release buspirone 5 mg tablet 5 mg PO BID mood #180 tabs 12/26/24 Unknown Rx duloxetine 60 mg capsule,delayed 60 mg PO DAILY 03/05/25 Unknown History release pregabalin 75 mg capsule 75 mg PO TID 03/05/25 Unknown History sertraline 50 mg tablet 25 mg PO QDAY 03/05/25 Unknown History Allergy/AdvReac Type Severity Reaction Status Date / Time Opioids - Morphine Analogues Allergy Rash Verified 03/05/25 22:37 adhesive tape AdvReac Unknown Rash Verified 03/05/25 22:37 tramadol (From Ultram) AdvReac Itching Verified 03/05/25 22:37 Family History Mother Cancer cervical Brother CVA (cerebral vascular accident) Father CVA (cerebral vascular accident) Sister , at the age of 65 Liver cancer Surgical History Cyst of left breast Status post hip surgery H/O knee surgery H/O wrist surgery Social History Smoking Status: Never smoker alcohol intake: current details: Occasional on avg 1 glass of wine Q mth substance use type: does not use ROS ROS ED ROS Narrative Review of systems positive for right hip pain worse with movement, shakiness and unsteady gait, frequent falls, visual disturbance in the sense that she has photophobia. Positive low back pain. EXAM Physical Exam Narrative Exam Narrative: GCS 15. ABCs intact. Cardiovascular examination regular rate and rhythm. Lungs clear to auscultation bilaterally. Abdomen is soft and nontender with positive bowel sounds. No guarding or rebound. Pelvis stable. Diffuse tenderness to palpation right hip but no evidence of clinical dislocation. Neurovascular intact bilateral lower extremities. Able to flex and extend bilateral knees. Well-healed scars bilateral knees. Neck soft and supple without meningismus. No point tenderness or step-off. Positive tenderness to palpation diffusely lumbar spine. No crepitance. Const Vital Signs: 03/05/25 22:35 03/05/25 22:43 03/06/25 00:16 Temperature 98.2 F 98.8 F Temperature Source Oral Pulse Rate 74 68 Respiratory Rate 18 18 Respiratory Effort Normal Non-Labored Respiratory Depth Normal Respiratory Pattern Normal Blood Pressure 107/70 102/63 Blood Pressure Mean 82 76 Pulse Ox 100 96 Oxygen Delivery Method Room Air Room Air MDM MDM MDM Narrative Medical decision making narrative: Differential diagnosis includes but not limited to closed head injury versus mild concussion versus intracranial hemorrhage versus cervical strain versus fracture versus periprosthetic hip fracture versus dislocation. I have low clinical suspicion for hip dislocation. She may have a lumbar compression fracture or vertebral process fracture of the lumbar spine. She does have a known coccyx chip fracture/avulsion. CT imaging will be obtained of the brain, C-spine, and lumbar spine/sacrum coccyx. I will obtain x-rays of the bilateral hips and pelvis. Regarding analgesia she has a opioid allergy where she gets a rash and itching from tramadol. She requested Tylenol so she was administered 650 mg orally. CBC and CMP will be checked to look for electrolyte imbalance or dehydration. I reviewed her laboratory work and she has normal white count of 8.0 with hemoglobin stable at 11.8, hematocrit 36.6, platelet count 351. Electrolyte panel is significant for slightly elevated anion gap of 17 secondary to bicarb low at 19.2, normal sodium and potassium. Glucose is elevated at 331 but this is a random glucose. I do not think that she has diabetic ketoacidosis. She will be bolused normal saline 1 L intravenously. She has normal BUN of 19 and creatinine 1.12. I reviewed the radiology reports of the CT of the brain which shows no evidence of an acute intracranial hemorrhage. I feel she might have more of a closed head injury. CT of the C-spine shows no acute fracture, but there are degenerative changes noted. CT of the lumbar spine does show a mid sacral fracture. X-rays of the bilateral hips and pelvis interpreted by myself independently shows the left hip prosthesis but no dislocation, no acute fracture. I reviewed the radiology report which confirms my independent interpretation. Given the patient's frequent falls, her family is concerned about this. I do feel that she will require at least observation for PT OT eval given her new sacral fracture. She did state that she spends a month of January in rehab, but given her frequent falls and new sacral fracture, I do feel that she will probably require placement again. Patient will be discussed with Dr. Sanna Elaine for observation. Patient is in stable condition. History & Record Review Discussion w/independent historian: Patient and Family Additional record(s) reviewed:: Prior ED visit Lab Data Attestation: I reviewed the patient's lab results. Labs: Laboratory Results - last 24 hr 03/05/25 22:58 WBC 8.0 RBC 4.37 Hgb 11.8 L Hct 36.6 L MCV 83.8 MCH 27.0 MCHC 32.2 RDW Std Deviation 45.5 H RDW Coeff of Alivia 15.0 H Plt Count 351 MPV 9.8 Immature Gran % (Auto) 0.400 Neut % (Auto) 61.7 Lymph % (Auto) 24.4 [place] % (Auto) 9.0 Eos % (Auto) 4.0 Baso % (Auto) 0.5 Absolute Neuts (auto) 4.9 Absolute Lymphs (auto) 1.94 Nucleated RBC % 0 Sodium 138 Potassium 4.8 Chloride 101 Carbon Dioxide 19.2 L Anion Gap 17 H BUN 19 Creatinine 1.12 Estim Creat Clear Calc 48.52 L Est GFR (MDRD) Non-Af 50 L BUN/Creatinine Ratio 17.0 Glucose 331 H Calcium 9.5 Total Bilirubin 0.23 AST 19 ALT 20 Alkaline Phosphatase 66 Total Protein 6.1 Albumin 3.6 Globulin 2.5 Albumin/Globulin Ratio 1.4 Radiography Diagnostic Testing: Clinical Impression(s) from Imaging Studies Brain CT 03/05/25 22:49 IMPRESSION: No acute intracranial abnormality. Senescent changes. Reading Location: [id number] Cervical Spine CT 03/05/25 22:49 IMPRESSION: No acute osseous abnormality of the cervical spine. Multilevel degenerative changes are worst at C4-5 and C5-6. Reading Location: [id number] Lumbar Spine CT 03/05/25 22:49 IMPRESSION: Acute mid sacral fracture. Reading [facility] 03/05/25 23:30 IMPRESSION: No acute injury noted. Reading [facility] Discussion w/another healthcare provider: Hospitalist Discharge Plan Dx/Rx/DC Orders Clinical Impression: Frequent falls, Sacral fracture, Unsteady gait Disposition Disposition: Acute Care [facility]
[2025-03-05 23:05] LABS: Hematocrit 36.6 % (37-47); Hemoglobin 11.8 g/dL (12.0-15.0); Immature Granulocytes Count 0.030 X10^3/uL (0.0-0.0); Mean Corp Hgb Conc 32.2 g/dL (32-36); Mean Corpuscular Volume 83.8 fL (81-99); Mean Platelet Vol. 9.8 fl (6.2-12.0); NRBC Flagged by Analyzer 0 % (0-5); Platelet Count 351 K/mm3 (150-450); RBC Distribution Width CV 15.0 % (11.6-14.6); RBC Distribution Width SD 45.5 fl (35.1-43.9); Red Blood Count 4.37 M/mm3 (4.2-5.4); White Blood Count 8.0 K/mm3 (4.4-11.0)
--- OUTSIDE RECORDS SUMMARY | 2025-03-05 23:21 | XMS RPT_ITS | CCD ---
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 Sumit Hansen Primary Care Provider [phone] Sarabjit, Dr. Sumit Hansen Referring Provider Dr. Mikayla Dukes Attending Provider Unavailable Primary Care Provider Unavailabl e Sarabjit, Dr. Sumit Hansen Primary Care Provider Sarabjit, Dr. Sumit Hansen Referring Provider [phone] Mikayla Dukes Attending Provider [phone] AGA GARCIA Referring Unavailable TESTAGA HARVEY Attending Unavailable Sarabjit, Sumit Chi Primary Care Unavailable Christina Wolff Attending Unavailable Sarabjit, Sumit Chi Attending Unavailable Sarabjit, Sumit Chi Primary Care Unavailable Tanya Joshi Unavailable Sarabjit, Sumit Chi Referring Unavailable Sarabjit, Sumit Chi Primary Care Unavailable Oleghe OLS, Efewongbe Attending Unavailabl e Sarabjit, Sumit Chi Primary Care Unavailable Oleghe OLS, Efewongbe Attending Unavailabl e Sarabjit, Sumit Chi Attending Unavailable [...] Efewongbe Attending Unavailabl e Sarabjit, Sumit Chi Attending Unavailable Sarabjit, Sumit Chi Primary Care Unavailable Sarabjit, Sumit Chi Referring Unavailable Sarabjit, Sumit Chi Attending Unavailable Sarabjit, Sumit Chi Referring Unavailable Sarabjit, Sumit Chi Primary Care Unavailable Sarabjit, Sumit Chi Attending Unavailable Sarabjit, Sumit Chi Primary Care Unavailable Sarabjit, Sumit Chi Referring Unavailable Sarabjit, Sumit Chi Primary Care Unavailable Glen Steven Attending Unavailable Lashellyson Glen Referring Unavailable Sarabjit, Sumit Chi Attending Unavailable Sarabjit, Sumit Chi Primary Care Unavailable Sarabjit, Sumit Chi Referring Unavailable Sarabjit, Sumit Chi Attending Unavailable Sarabjit, Sumit Chi Primary Care Unavailable Sarabjit, Sumit Chi Attending Unavailable Sarabjit, Sumit Chi Primary Care Unavailable Sarabjit, Sumit Chi Primary Care Unavailable Christina Wolff Attending Unavailable Sarabjit, Sumit Chi Attending Unavailable Sarabjit, Sumit Chi Primary Care Unavailable Sarabjit, Sumit Chi Referring Unavailable Sarabjit, Sumit Chi Attending Unavailable Sarabjit, Sumit Chi Primary Care Unavailable Sarabjit, Sumit Chi Referring Unavailable Sraabjit, Sumit Chi Attending Unavailable Sarabjit, Sumit Chi Primary Care Unavailable Sarabjit, Sumit Chi Primary Care Unavailable Ynes, Syeda Kirstin Attending Unavailable Christopher, Andi Consulting Unavailable Christopher, Andi Admitting Unavailable Koram, Syeda Kirstin Consulting Unavailable Juanito Saavedra Consulting Unavailable Sarabjit, Sumit Chi Primary Care Unavailable Glen Mccray F Admitting Unavailable Glen Mccray Consulting Unavailable Silvino Lopez Attending Unavailable Sarabjit, Sumit Chi Primary Care Unavailable Collette Nieves Attending Unavailable Sarabjit, Sumit Chi Primary Care Unavailable Oleghshannon BLACKBURN Efewongbe Attending Unavailabl e Oleghe OLS, Efewongbe Referring Unavailabl e Sarabjit, Sumit Chi Primary Care Unavailable Oleghe Efewongbe Attending Unavailable Sarabjit, Sumit Chi Primary Care Unavailable Ed NIX, Kamla Attending Unavailable Sarabjit, Sumit Chi Primary Care Unavailable Mg Jiang Attending Unavailable Sarabjit, Sumit Chi Referring Unavailable Sarabjit, Sumit Chi Primary Care Unavailable Collette Nieves Attending Unavailable Sarabjit, Sumit Chi Primary Care Unavailable Oleghe, Efewongbe Attending Unavailable Sarabjit, Sumit Chi Primary Care Unavailable White, Andi Consulting Unavailable Andi White Admitting Unavailable Juanito Saavedra Attending Unavailable Ynes, Syeda Kirstin Consulting Unavailable Juanito Saavedra Consulting Unavailable Sarabjit, Sumit Chi Primary Care Unavailable Glen Mccray F Consulting Unavailable Glen Mccray F Admitting Unavailable Silvino Lopez Attending Unavailable Silvino Lopez Consulting Unavailable Glen Mccray Attending Unavailable Syeda Quick Attending Unavailable Sarabjit, Sumit Chi Primary Care Unavailable Nieves, Collette Attending Unavailable Sarabjit, Sumit Chi Primary Care Unavailable Nieves, Collette Attending Unavailable Nieves, Collette Attending Unavailable Sarabjit, Sumit Chi Primary Care Unavailable Sarabjit, Sumit Chi Primary Care Unavailable Nieves Collette Attending Unavailable Sarabjit, Sumit Chi Primary Care Unavailable Nieves, Collette Attending Unavailable Sarabjit, Sumit Chi Primary Care Unavailable Kamla Ward NP Attending Unavailable Sarabjit, Sumit Chi Primary Care Unavailable Andi White Attending Unavailable Sarabjit, Sumit Chi Primary Care Unavailable Zack Zamudio Attending Unavailable Allergies Allergy Classification Reported Allergen(s) Allergy Type Date of Onset Reaction(s) Facility (10 sources) acetaminophen / oxyCODONE; Translations: [OXYCODONE-ACETAM INOPHEN] Drug Allergy 1 Itching [facility] (10 sources) omeprazole; Translations: [OMEPRAZOLE] Drug Allergy 3 Intolerance [facility] (10 sources) tapentadol; Translations: [TAPENTADOL] Drug Allergy 2 GI Upset [facility] (10 sources) traMADol; Translations: [TRAMADOL HCL] Drug Allergy 1 Itching [facility] (13 sources) Opioids - Morphine Analogues; Translations: [Opioids - Morphine Analogues] Allergy to substance 9 [facility] (8 sources) Adhesive Tape; Translations: [adhesive tape] Propensity to adverse reactions 3 [facility] (1 source) traMADol Drug Allergy 5 [facility] Medications Current Medications Medication Drug Class(es) [...] Take 500 mg by mouth once daily. [place]-3 Fatty Acids-Fish Oil (12 sources) Start: 10-22-2018 [place]-3 Fatty Acids-Fish Oil Active 1 EACH PO DAILY October 22, 2018 1:15pm Start: 10-22-2018 End: 08-29-2022 [place]-3 Fatty Acids-Fish Oil Discontinued 1 EACH PO DAILY October 22, 2018 12:00am August 29, 2022 10:45am Start: 10-22-2018 End: 08-29-2022 [place]-3 Fatty Acids-Fish Oil Discontinued 1 EACH PO DAILY October 21, 2018 11:00pm August 29, 2022 9:45am Start: 10-22-2018 [place]-3 Fatty Acids-Fish Oil Active 1 EACH PO DAILY October 21, 2018 11:00pm Start: 10-22-2018 [place]-3 Fatty Acids-Fish Oil Active 1 EACH PO [...] on above: Take 1 capsule by mo [facility] three times daily. Turmeric Root Extract (7 [...] above: Take 1 tablet by malik th twice daily as needed. diclofenac sodium 0.01 [...] Comment on above: take 1 capsule by mo [facility] once daily Take 1 capsule by mo [facility] once daily. escitalopram 10 mg oral [...] Take 1 tablet by malik once daily. hydrOXYzine hydrochloride 50 mg oral [...] oral tablet (20 sources) Biguanide Start: 10-23-19 19 take 1 tablet by mouth twice daily at mealtime metFORMIN (GLUCOPHAGE) 1,000 mg tablet Take 1 tablet by mouth twice daily with meals. 180 tablet 1 12/31/2019 Active Comment on above: Take 1 tablet by malik th twice daily with meals. pantoprazole 40 mg delayed release oral tablet (20 sources) Proton Pump Inhibitor Start: 10-23-19 take 1 tablet by mouth once daily pantoprazole DR (PROTONIX) 40 mg tablet Indications: Heartburn Take 1 tablet by mouth once daily. 90 tablet 2 05/04/2020 Active Comment on above: Take 1 tablet by malik th once daily. potassium gluconate 2.5 meq oral tablet (20 sources) Start: 07-13-20 End: 08-29-19 23 take 99 mg by mouth once daily Potassium Discontinued 99 MG PO DAILY October 22, 2018 12:00am August 29, 2022 10:46am Comment on above: Take one(1) tablet d aily. rosuvastatin 40 mg oral capsule (2 sources) HMG-CoA Reductase Inhibitor Start: 10-25-19 22 rosuvastatin 40 mg cpSP simvastatin 40 mg oral tablet (20 sources) HMG-CoA Reductase Inhibitor Start: 10-23-19 19 take 1 tablet by mouth once daily [...] Chronic Other bone disease and musculoskeletal deformities (2 sources) Osteonecrosis, unspecified; Translations: [Osteonecrosis, unspecified] Onset: 03-03-2025 Chronic Other bone disease and musculoskeletal deformities (20 sources) Segmental and somatic dysfunction; Translations: [Segmental and somatic dysfunction of cervical region] 05-24-2020 Episodic Other connective tissue disease (12 sources) History of lumbar fusion; Translations: [Arthrodesis status] 05-24-2020 Episodic Other connective tissue disease (1 source) Pain in both feet; Translations: [Pain in right foot] 10-24-2022 Episodic Other injuries and conditions due to external causes (1 source) Unspecified injury of head, initial encounter; Translations: [Unspecified injury of head, initial encounter] Onset: 03-03-2025 Episodic Other lower respiratory disease (1 source) [...] Test Name Value Interpretation Reference Range Facility MR/JUANCARLOS.BPon 03-04-2025 MR/JUANCARLOS.BP Normal [facility] Protein Electro.Ur-Randomon 03-04-2025 M-SPIKE,U Normal [facility] Comment on above: Result Comment: NOT OBSERVED Performed By: #### L 3600.4000, L3100.3450 ####[facility] [address] [place], [address] Protein Electroph, Son 03-02 Albumin [Mass/Vol] 3.4 g/dL Normal 2.9-4.4 [facility] Comment on above: Performed By: #### L 3600.4000, L3100.3450 ####[facility] [address] [place], [address] Albumin/Globulin [Mass ratio] 1.1 {ratio} Normal 0.7-1.7 [facility] Comment on above: Performed By: #### L 3600.4000, L3100.3450 ####[facility] [address] [place], [address] ALPHA-1 GLOBUL 0.3 g/dL Normal 0.0-0.4 [facility] Comment on above: Performed By: #### L 3600.4000, L3100.3450 ####[facility] [address] [place], [address] ALPHA-2 GLOBUL 1.2 g/dL High 0.4-1.0 [facility] Comment on above: Performed By: #### L 3600.4000, L3100.3450 ####[facility] [address] [place], [address] BETA GLOBULIN 1.0 g/dL Normal 0.7-1.3 [facility] Comment on above: Performed By: #### L 3600.4000, L3100.3450 ####[facility] [address] [place], [address] GAMMA GLOBULIN 0.6 g/dL Normal 0.4-1.8 [facility] Comment on above: Performed By: #### L 3600.4000, L3100.3450 ####[facility] [address] [place], [address] Globulin (S) [Mass/Vol] 3.1 g/dL Normal 2.2-3.9 [facility] Comment on above: Performed By: #### L 3600.4000, L3100.3450 ####[facility] [address] [place], [address] INTERPRETATION Comment Normal . [facility] Comment on above: Result Comment: Prot ein electrophoresis scan will follow via computer,mail, or structured cabling technician delivery. Performed By: #### L 3600.4000, L3100.3450 ####[facility] [address] [place], [address] M-SPIKE Comment: Normal Not Observed [facility] Comment on above: Result Comment: M-sp gali #1 = 0.1 g/dlM-spike #2 = 0.2 g/dl Performed By: #### L 3600.4000, L3100.3450 ####[facility] [address] [place], [address] NOTE: Comment Normal . [facility] Comment on above: Result Comment: The SPE pattern demonstrates two peaks in the beta-gammaregion which may represent monoclonal protein. A biclonalgammopathy may be confirmed by immunofixation, as well asevaluation of the urine for the presence of Bence-Jonesprotein. Performed By: #### L 3600.4000, L3100.3450 ####[facility] [address] [place], [address] Protein [Mass/Vol] 6.5 g/dL Normal 6.0-8.5 [facility] Comment on above: Performed By: #### L 3600.4000, L3100.3450 ####[facility] [address] [place], [address] Brain/Head without Contrasto n 02-26-2025 Brain/Head without Contrast Normal [facility] MR/BMS.BPon 02-20-2025 MR/BMS.BP Normal [facility] Culture, Blood (WB)on 2024 CUB SET Blood cultures x2, from two different sites No growth in 5 days. Normal [facility] Comment on above: Performed By: #### M 200.1000 ####[facility] [address] [place], [address] Basic Metabolic Profile (BMP )on 01-11-2025 BUN Normal 4-19 [facility] Comment on above: Result Comment: Canc elled via OM: Order cancelled - Patient discharged Performed By: #### L 100.0100, L500.2500 ####[facility] [address] [place], [address] BUN/CRE Normal 10-20 [facility] Comment on above: Result Comment: Canc elled via OM: Order cancelled - Patient discharged Performed By: #### L 100.0100, L500.2500 ####[facility] [address] [place], [address] Calcium Normal 7.6-11.0 [facility] Comment on above: Result Comment: Canc elled via OM: Order cancelled - Patient discharged Performed By: #### L 100.0100, L500.2500 ####[facility] [address] [place], [address] CL Normal 98-108 [facility] Comment on above: Result Comment: Canc elled via OM: Order cancelled - Patient discharged Performed By: #### L 100.0100, L500.2500 ####[facility] [address] [place], [address] CO2 Normal 21.0-32.0 [facility] Comment on above: Result Comment: Canc elled via OM: Order cancelled - Patient discharged Performed By: #### L 100.0100, L500.2500 ####[facility] [address] [place], [address] CREAT,SERUM Normal 0.70-1.20 [facility] Comment on above: Result Comment: Canc elled via OM: Order cancelled - Patient discharged Performed By: #### L 100.0100, L500.2500 ####[facility] [address] [place], [address] eGFR Normal >60 [facility] Comment on above: Result Comment: Canc elled via OM: Order cancelled - Patient discharged Performed By: #### L 100.0100, L500.2500 ####[facility] [address] [place], [address] GAP Normal 5-15 [facility] Comment on above: Result Comment: Canc elled via OM: Order cancelled - Patient discharged Performed By: #### L 100.0100, L500.2500 ####[facility] [address] [place], [address] GLU Normal 70-99 [facility] Comment on above: Result Comment: Canc elled via OM: Order cancelled - Patient discharged Performed By: #### L 100.0100, L500.2500 ####[facility] [address] [place], [address] Potassium Normal 3.3-5.1 [facility] Comment on above: Result Comment: Canc elled via OM: Order cancelled - Patient discharged Performed By: #### L 100.0100, L500.2500 ####[facility] [address] [place], [address] Basic Metabolic Profile (BMP) Normal 133-145 [facility] Comment on above: Result Comment: Canc elled via OM: Order cancelled - Patient discharged Performed By: #### L 100.0100, L500.2500 ####[facility] [address] [place], [address] CBC W/Diff, Automatedon 06-0 -2024 Absolute Neut Normal 2.0-7.7 [facility] Comment on above: Result Comment: Canc elled via OM: Order cancelled - Patient discharged Performed By: #### L 100.0100, L500.2500 ####[facility] [address] [place], [address] HCT Normal 37-47 [facility] Comment on above: Result Comment: Canc elled via OM: Order cancelled - Patient discharged Performed By: #### L 100.0100, L500.2500 ####[facility] [address] [place], [address] HGB Normal 12.0-15.0 [facility] Comment on above: Result Comment: Canc elled via OM: Order cancelled - Patient discharged Performed By: #### L 100.0100, L500.2500 ####[facility] [address] [place], [address] MCH Normal 27.0-32.0 [facility] Comment on above: Result Comment: Canc elled via OM: Order cancelled - Patient discharged Performed By: #### L 100.0100, L500.2500 ####[facility] [address] [place], [address] MCHC Normal 32-36 [facility] Comment on above: Result Comment: Canc elled via OM: Order cancelled - Patient discharged Performed By: #### L 100.0100, L500.2500 ####[facility] [address] [place], [address] MCV Normal 81-99 [facility] Comment on above: Result Comment: Canc elled via OM: Order cancelled - Patient discharged Performed By: #### L 100.0100, L500.2500 ####[facility] [address] [place], [address] NEUT% Normal 47-70 [facility] Comment on above: Result Comment: Canc elled via OM: Order cancelled - Patient discharged Performed By: #### L 100.0100, L500.2500 ####[facility] [address] [place], [address] PLT Normal 150-450 [facility] Comment on above: Result Comment: Canc elled via OM: Order cancelled - Patient discharged Performed By: #### L 100.0100, L500.2500 ####[facility] [address] [place], [address] RBC Normal 4.2-5.4 [facility] Comment on above: Result Comment: Canc elled via OM: Order cancelled - Patient discharged Performed By: #### L 100.0100, L500.2500 ####[facility] [address] [place], [address] RDW CV Normal 11.6-14.6 [facility] Comment on above: Result Comment: Canc elled via OM: Order cancelled - Patient discharged Performed By: #### L 100.0100, L500.2500 ####[facility] [address] [place], [address] RDW SD Normal 35.1-43.9 [facility] Comment on above: Result Comment: Canc elled via OM: Order cancelled - Patient discharged Performed By: #### L 100.0100, L500.2500 ####[facility] [address] [place], [address] WBC Normal 4.4-11.0 [facility] Comment on above: Result Comment: Canc elled via OM: Order cancelled - Patient discharged Performed By: #### L 100.0100, L500.2500 ####[facility] [address] [place], [address] Basic Metabolic Profile (BMP )on 01-10-2025 BUN/CRE 14.9 RATIO Normal 10-20 [facility] Comment on above: Performed By: #### L 100.0100, L500.2500 ####[facility] [address] [place], [address] Calcium [Mass/Vol] 9.3 mg/dL Normal 7.6-11.0 [facility] Comment on above: Performed By: #### L 100.0100, L500.2500 ####[facility] [address] [place], [address] Chloride [Moles/Vol] 104 mmol/L Normal 98-108 [facility] Comment on above: Performed By: #### L 100.0100, L500.2500 ####[facility] [address] [place], [address] CO2 [Moles/Vol] 25.6 mmol/L Normal 21.0-32.0 [facility] Comment on above: Performed By: #### L 100.0100, L500.2500 ####[facility] [address] [place], [address] Creatinine [Mass/Vol] 0.88 mg/dL Normal 0.70-1.20 [facility] Comment on above: Performed By: #### L 100.0100, L500.2500 ####[facility] [address] [place], [address] ECRCL 60.74 ml/min Normal 50-250 [facility] Comment on above: Performed By: #### L 100.0100, L500.2500 ####[facility] [address] [place], [address] GAP 12 Normal 5-15 [facility] Comment on above: Performed By: #### L 100.0100, L500.2500 ####[facility] [address] [place], [address] GFR/1.73 sq M.predicted among non-blacks MDRD (S/P/Bld) [Vol rate/Area] 68 mL/min/{1.73_m2} Normal >60 [facility] Comment on above: Result Comment: mL/m in/1.73m2 CKD-EPI Creatinine Equation (2020) Performed By: #### L 100.0100, L500.2500 ####[facility] [address] [place], [address] Glucose [Mass/Vol] 150 mg/dL High 70-99 [facility] Comment on above: Performed By: #### L 100.0100, L500.2500 ####[facility] [address] [place], [address] Potassium [Moles/Vol] 4.1 mmol/L Normal 3.3-5.1 [facility] Comment on above: Performed By: #### L 100.0100, L500.2500 ####[facility] [address] [place], [address] Sodium [Moles/Vol] 142 mmol/L Normal 133-145 [facility] Comment on above: Performed By: #### L 100.0100, L500.2500 ####[facility] [address] [place], [address] Urea nitrogen [Mass/Vol] 13 mg/dL Normal 4-19 [facility] Comment on above: Performed By: #### L 100.0100, L500.2500 ####[facility] [address] [place], [address] Bedside Glucoseon 05-31-2025 FINGERSTICK GLU 170 mg/dL High 74-106 [facility] Comment on above: Result Comment: GILDA CLINE OF PATIENT CARE PER NURSING PROTOCOL Performed By: #### L 501.080 ####[facility] [address] [place], [address] CBC W/Diff, Automatedon 05-3 -2024 Absolute Lymph 2.24 X10 3/uL Normal 0.83-4.51 [facility] Comment on above: Performed By: #### L 100.0100, L500.2500 ####[facility] [address] [place], [address] Absolute Neut 4.1 X10 3/uL Normal 2.0-7.7 [facility] Comment on above: Performed By: #### L 100.0100, L500.2500 ####[facility] [address] [place], [address] Basophils/100 WBC (Bld) 0.5 % Normal 0-1 [facility] Comment on above: Performed By: #### L 100.0100, L500.2500 ####[facility] [address] [place], [address] Eosinophils/100 WBC (Bld) 4.5 % Normal 0-5 [facility] Comment on above: Performed By: #### L 100.0100, L500.2500 ####[facility] [address] [place], [address] Erythrocyte distribution width (RBC) [Ratio] 15.1 % High 11.6-14.6 [facility] Comment on above: Performed By: #### L 100.0100, L500.2500 ####[facility] [address] [place], [address] Hematocrit (Bld) [Volume fraction] 36.7 % Low 37-47 [facility] Comment on above: Performed By: #### L 100.0100, L500.2500 ####[facility] [address] [place], [address] Hemoglobin (Bld) [Mass/Vol] 11.9 g/dL Low 12.0-15.0 [facility] Comment on above: Performed By: #### L 100.0100, L500.2500 ####[facility] [address] [place], [address] IG% 0.400 Normal 0.0-0.9 [facility] Comment on above: Result Comment: IG% - Immature Granulocytes (promyelocytes, myelocytes andmetamyelocytes) > 1% indicates that a LEFT SHIFT is Present. Performed By: #### L 100.0100, L500.2500 ####[facility] [address] [place], [address] Lymphocytes/100 WBC (Bld) 30.8 % Normal 19-41 [facility] Comment on above: Performed By: #### L 100.0100, L500.2500 ####[facility] [address] [place], [address] MCH (RBC) [Entitic mass] 27.7 pg Normal 27.0-32.0 [facility] Comment on above: Performed By: #### L 100.0100, L500.2500 ####[facility] [address] [place], [address] MCHC (RBC) [Mass/Vol] 32.4 g/dL Normal 32-36 [facility] Comment on above: Performed By: #### L 100.0100, L500.2500 ####[facility] [address] [place], [address] MCV (RBC) [Entitic vol] 85.5 fL Normal 81-99 [facility] Comment on above: Performed By: #### L 100.0100, L500.2500 ####[facility] [address] [place], [address] Monocytes/100 WBC (Bld) 7.3 % Normal 0-10 [facility] Comment on above: Performed By: #### L 100.0100, L500.2500 ####[facility] [address] [place], [address] Neutrophils/100 WBC (Bld) 56.5 % Normal 47-70 [facility] Comment on above: Performed By: #### L 100.0100, L500.2500 ####[facility] [address] [place], [address] Nucleated RBC (Bld) [#/Vol] 0 10*3/uL Normal 0-5 [facility] Comment on above: Performed By: #### L 100.0100, L500.2500 ####[facility] [address] [place], [address] Platelet mean volume (Bld) [Entitic vol] 10.0 fL Normal 6.2-12.0 [facility] Comment on above: Performed By: #### L 100.0100, L500.2500 ####[facility] [address] [place], [address] Platelets (Bld) [#/Vol] 291 10*3/uL Normal 150-450 [facility] Comment on above: Performed By: #### L 100.0100, L500.2500 ####[facility] [address] [place], [address] RBC (Bld) [#/Vol] 4.29 10*6/uL Normal 4.2-5.4 [facility] Comment on above: Performed By: #### L 100.0100, L500.2500 ####[facility] [address] [place], [address] RDW SD 47.4 fl High 35.1-43.9 [facility] Comment on above: Performed By: #### L 100.0100, L500.2500 ####[facility] [address] [place], [address] WBC (Bld) [#/Vol] 7.3 10*3/uL Normal 4.4-11.0 [facility] Comment on above: Performed By: #### L 100.0100, L500.2500 ####[facility] [address] [place], [address] Basic Metabolic Profile (BMP )on 01-09-2025 BUN/CRE 16.7 RATIO Normal 10-20 [facility] Comment on above: Performed By: #### L 500.2500, L100.0100, L501.5200, L501.2300 ####[facility] [address] [place], [address] Calcium [Mass/Vol] 9.0 mg/dL Normal 7.6-11.0 [facility] Comment on above: Performed By: #### L 500.2500, L100.0100, L501.5200, L501.2300 ####[facility] [address] [place], [address] Chloride [Moles/Vol] 103 mmol/L Normal 98-108 [facility] Comment on above: Performed By: #### L 500.2500, L100.0100, L501.5200, L501.2300 ####[facility] [address] [place], [address] CO2 [Moles/Vol] 24.3 mmol/L Normal 21.0-32.0 [facility] Comment on above: Performed By: #### L 500.2500, L100.0100, L501.5200, L501.2300 ####[facility] [address] [place], [address] Creatinine [Mass/Vol] 0.88 mg/dL Normal 0.70-1.20 [facility] Comment on above: Performed By: #### L 500.2500, L100.0100, L501.5200, L501.2300 ####[facility] [address] [place], [address] ECRCL 60.74 ml/min Normal 50-250 [facility] Comment on above: Performed By: #### L 500.2500, L100.0100, L501.5200, L501.2300 ####[facility] [address] [place], [address] GAP 10 Normal 5-15 [facility] Comment on above: Performed By: #### L 500.2500, L100.0100, L501.5200, L501.2300 ####[facility] [address] [place], [address] GFR/1.73 sq M.predicted among non-blacks MDRD (S/P/Bld) [Vol rate/Area] 67 mL/min/{1.73_m2} Normal >60 [facility] Comment on above: Result Comment: mL/m in/1.73m2 CKD-EPI Creatinine Equation (2020) Performed By: #### L 500.2500, L100.0100, L501.5200, L501.2300 ####[facility] [address] [place], [address] Glucose [Mass/Vol] 151 mg/dL High 70-99 [facility] Comment on above: Performed By: #### L 500.2500, L100.0100, L501.5200, L501.2300 ####[facility] [address] [place], [address] Potassium [Moles/Vol] 3.8 mmol/L Normal 3.3-5.1 [facility] Comment on above: Performed By: #### L 500.2500, L100.0100, L501.5200, L501.2300 ####[facility] [address] [place], [address] Sodium [Moles/Vol] 137 mmol/L Normal 133-145 [facility] Comment on above: Performed By: #### L 500.2500, L100.0100, L501.5200, L501.2300 ####[facility] [address] [place], [address] Urea nitrogen [Mass/Vol] 15 mg/dL Normal 4-19 [facility] Comment on above: Performed By: #### L 500.2500, L100.0100, L501.5200, L501.2300 ####[facility] [address] [place], [address] Bedside Glucoseon 01-09-2025 FINGERSTICK GLU 185 mg/dL High -106 [facility] Comment on above: Result Comment: GILDA GEMENT OF PATIENT CARE PER NURSING PROTOCOL Performed By: #### L 501.080 ####[facility] [address] [place], [address] FINGERSTICK GLU 174 mg/dL High -106 [facility] Comment on above: Result Comment: GILDA GEMENT OF PATIENT CARE PER NURSING PROTOCOL Performed By: #### L 501.080 ####[facility] [address] [place], [address] FINGERSTICK GLU 249 mg/dL High 74-106 [facility] Comment on above: Result Comment: GILDA GEMENT OF PATIENT CARE PER NURSING PROTOCOL Performed By: #### L 501.080 ####[facility] [address] [place], [address] FINGERSTICK GLU 179 mg/dL High -106 [facility] Comment on above: Result Comment: GILDA GEMENT OF PATIENT CARE PER NURSING PROTOCOL Performed By: #### L 501.080 ####[facility] [address] [place], [address] FINGERSTICK GLU 224 mg/dL High 74-106 [facility] Comment on above: Result Comment: GILDA CLINE OF PATIENT CARE PER NURSING PROTOCOL Performed By: #### L 501.080 ####[facility] [address] [place], [address] CBC W/Diff, Automatedon 05-3 0-2024 Absolute Lymph 1.78 X10 3/uL Normal 0.83-4.51 [facility] Comment on above: Performed By: #### L 500.2500, L100.0100, L501.5200, L501.2300 ####[facility] [address] [place], [address] Absolute Neut 4.9 X10 3/uL Normal 2.0-7.7 [facility] Comment on above: Performed By: #### L 500.2500, L100.0100, L501.5200, L501.2300 ####[facility] [address] [place], [address] Basophils/100 WBC (Bld) 0.3 % Normal 0-1 [facility] Comment on above: Performed By: #### L 500.2500, L100.0100, L501.5200, L501.2300 ####[facility] [address] [place], [address] Eosinophils/100 WBC (Bld) 3.2 % Normal 0-5 [facility] Comment on above: Performed By: #### L 500.2500, L100.0100, L501.5200, L501.2300 ####[facility] [address] [place], [address] Erythrocyte distribution width (RBC) [Ratio] 15.1 % High 11.6-14.6 [facility] Comment on above: Performed By: #### L 500.2500, L100.0100, L501.5200, L501.2300 ####[facility] [address] [place], [address] Hematocrit (Bld) [Volume fraction] 34.0 % Low 37-47 [facility] Comment on above: Performed By: #### L 500.2500, L100.0100, L501.5200, L501.2300 ####[facility] [address] [place], [address] Hemoglobin (Bld) [Mass/Vol] 11.4 g/dL Low 12.0-15.0 [facility] Comment on above: Performed By: #### L 500.2500, L100.0100, L501.5200, L501.2300 ####[facility] [address] [place], [address] IG% 0.600 Normal 0.0-0.9 [facility] Comment on above: Result Comment: IG% - Immature Granulocytes (promyelocytes, myelocytes andmetamyelocytes) > 1% indicates that a LEFT SHIFT is Present. Performed By: #### L 500.2500, L100.0100, L501.5200, L501.2300 ####[facility] [address] [place], [address] Lymphocytes/100 WBC (Bld) 22.8 % Normal 19-41 [facility] Comment on above: Performed By: #### L 500.2500, L100.0100, L501.5200, L501.2300 ####[facility] [address] [place], [address] MCH (RBC) [Entitic mass] 27.8 pg Normal 27.0-32.0 [facility] Comment on above: Performed By: #### L 500.2500, L100.0100, L501.5200, L501.2300 ####[facility] [address] [place], [address] MCHC (RBC) [Mass/Vol] 33.5 g/dL Normal 32-36 [facility] Comment on above: Performed By: #### L 500.2500, L100.0100, L501.5200, L501.2300 ####[facility] [address] [place], [address] MCV (RBC) [Entitic vol] 82.9 fL Normal 81-99 [facility] Comment on above: Performed By: #### L 500.2500, L100.0100, L501.5200, L501.2300 ####[facility] [address] [place], [address] Monocytes/100 WBC (Bld) 9.6 % Normal 0-10 [facility] Comment on above: Performed By: #### L 500.2500, L100.0100, L501.5200, L501.2300 ####[facility] [address] [place], [address] Neutrophils/100 WBC (Bld) 63.5 % Normal 47-70 [facility] Comment on above: Performed By: #### L 500.2500, L100.0100, L501.5200, L501.2300 ####[facility] [address] [place], [address] Nucleated RBC (Bld) [#/Vol] 0 10*3/uL Normal 0-5 [facility] Comment on above: Performed By: #### L 500.2500, L100.0100, L501.5200, L501.2300 ####[facility] [address] [place], [address] Platelet mean volume (Bld) [Entitic vol] 9.7 fL Normal 6.2-12.0 [facility] Comment on above: Performed By: #### L 500.2500, L100.0100, L501.5200, L501.2300 ####[facility] [address] [place], [address] Platelets (Bld) [#/Vol] 258 10*3/uL Normal 150-450 [facility] Comment on above: Performed By: #### L 500.2500, L100.0100, L501.5200, L501.2300 ####[facility] [address] [place], [address] RBC (Bld) [#/Vol] 4.10 10*6/uL Low 4.2-5.4 [facility] Comment on above: Performed By: #### L 500.2500, L100.0100, L501.5200, L501.2300 ####[facility] [address] [place], [address] RDW SD 46.0 fl High 35.1-43.9 [facility] Comment on above: Performed By: #### L 500.2500, L100.0100, L501.5200, L501.2300 ####[facility] [address] [place], [address] WBC (Bld) [#/Vol] 7.8 10*3/uL Normal 4.4-11.0 [facility] Comment on above: Performed By: #### L 500.2500, L100.0100, L501.5200, L501.2300 ####[facility] [address] [place], [address] Magnesiumon 01-09-2025 Magnesium [Mass/Vol] 1.8 mg/dL Normal 1.5-2.2 [facility] Comment on above: Performed By: #### L 500.2500, L100.0100, L501.5200, L501.2300 ####[facility] [address] [place], [address] Phosphoruson 01-09-2025 Phosphate [Mass/Vol] 4.6 mg/dL High 2.7-4.5 [facility] Comment on above: Performed By: #### L 500.2500, L100.0100, L501.5200, L501.2300 ####[facility] [address] [place], [address] Urine Cultureon 01-09-2025 URC Normal [facility] Comment on above: Performed By: #### M 100.2200 ####[facility] [address] [place], [address] Basic Metabolic Profile (BMP )on 01-08-2025 BUN/CRE 16.5 RATIO Normal 10-20 [facility] Comment on above: Order Comment: PER Kinsey DE JESUS RN OKAY TO DO MORNING LABS EARLY Performed By: #### L 100.0100, L500.2500 ####[facility] [address] [place], [address] Calcium [Mass/Vol] 9.0 mg/dL Normal 7.6-11.0 [facility] Comment on above: Order Comment: YVON DE JESUS RN OKAY TO DO MORNING LABS EARLY Performed By: #### L 100.0100, L500.2500 ####[facility] [address] [place], [address] Chloride [Moles/Vol] 101 mmol/L Normal 98-108 [facility] Comment on above: Order Comment: YVON DE JESUS RN OKAY TO DO MORNING LABS EARLY Performed By: #### L 100.0100, L500.2500 ####[facility] [address] [place], [address] CO2 [Moles/Vol] 20.9 mmol/L Low 21.0-32.0 [facility] Comment on above: Order Comment: YVON DE JESUS RN OKAY TO DO MORNING LABS EARLY Performed By: #### L 100.0100, L500.2500 ####[facility] [address] [place], [address] Creatinine [Mass/Vol] 1.01 mg/dL Normal 0.70-1.20 [facility] Comment on above: Order Comment: PER Kinsey DE JESUS RN OKAY TO DO MORNING LABS EARLY Performed By: #### L 100.0100, L500.2500 ####[facility] [address] [place], [address] ECRCL 52.93 ml/min Normal 50-250 [facility] Comment on above: Order Comment: PER Kinsey DE JESUS RN OKAY TO DO MORNING LABS EARLY Performed By: #### L 100.0100, L500.2500 ####[facility] [address] [place], [address] GAP 13 Normal 5-15 [facility] Comment on above: Order Comment: PER Kinsey DE JESUS RN OKAY TO DO MORNING LABS EARLY Performed By: #### L 100.0100, L500.2500 ####[facility] [address] [place], [address] GFR/1.73 sq M.predicted among non-blacks MDRD (S/P/Bld) [Vol rate/Area] 57 mL/min/{1.73_m2} Low >60 [facility] Comment on above: Order Comment: PER Kinsey DE JESUS RN OKAY TO DO MORNING LABS EARLY Result Comment: mL/m in/1.73m2 CKD-EPI Creatinine Equation (2020) Performed By: #### L 100.0100, L500.2500 ####[facility] [address] [place], [address] Glucose [Mass/Vol] 255 mg/dL High 70-99 [facility] Comment on above: Order Comment: PER Kinsey DE JESUS RN OKAY TO DO MORNING LABS EARLY Performed By: #### L 100.0100, L500.2500 ####[facility] [address] [place], [address] Potassium [Moles/Vol] 4.3 mmol/L Normal 3.3-5.1 [facility] Comment on above: Order Comment: PER Kinsey DE JESUS RN OKAY TO DO MORNING LABS EARLY Performed By: #### L 100.0100, L500.2500 ####[facility] [address] [place], [address] Sodium [Moles/Vol] 135 mmol/L Normal 133-145 [facility] Comment on above: Order Comment: PER Kinsey DE JESUS RN OKAY TO DO MORNING LABS EARLY Performed By: #### L 100.0100, L500.2500 ####[facility] [address] [place], [address] Urea nitrogen [Mass/Vol] 17 mg/dL Normal 4-19 [facility] Comment on above: Order Comment: PER Kinsey DE JESUS RN OKAY TO DO MORNING LABS EARLY Performed By: #### L 100.0100, L500.2500 ####[facility] [address] [place], [address] Bedside Glucoseon 01-08-2025 FINGERSTICK GLU 147 mg/dL High 74-106 [facility] Comment on above: Result Comment: GILDA GEMENT OF PATIENT CARE PER NURSING PROTOCOL Performed By: #### L 501.080 ####[facility] [address] [place], [address] FINGERSTICK GLU 246 mg/dL High 74-106 [facility] Comment on above: Result Comment: GILDA GEMENT OF PATIENT CARE PER NURSING PROTOCOL Performed By: #### L 501.080 ####[facility] [address] [place], [address] FINGERSTICK GLU 200 mg/dL High -106 [facility] Comment on above: Result Comment: GILDA GEMENT OF PATIENT CARE PER NURSING PROTOCOL Performed By: #### L 501.080 ####[facility] [address] [place], [address] CBC W/Diff, Automatedon 05- Absolute Lymph 1.84 X10 3/uL Normal 0.83-4.51 [facility] Comment on above: Order Comment: PER Kinsey DE JESUS RN OKAY TO DO MORNING LABS EARLY Performed By: #### L 100.0100, L500.2500 ####[facility] [address] [place], [address] Absolute Neut 6.9 X10 3/uL Normal 2.0-7.7 [facility] Comment on above: Order Comment: PER Kinsey DE JESUS RN OKAY TO DO MORNING LABS EARLY Performed By: #### L 100.0100, L500.2500 ####[facility] [address] [place], [address] Basophils/100 WBC (Bld) 0.2 % Normal 0-1 [facility] Comment on above: Order Comment: PER Kinsey DE JESUS RN OKAY TO DO MORNING LABS EARLY Performed By: #### L 100.0100, L500.2500 ####[facility] [address] [place], [address] Eosinophils/100 WBC (Bld) 0.8 % Normal 0-5 [facility] Comment on above: Order Comment: PER Kinsey DE JESUS RN OKAY TO DO MORNING LABS EARLY Performed By: #### L 100.0100, L500.2500 ####[facility] [address] [place], [address] Erythrocyte distribution width (RBC) [Ratio] 15.0 % High 11.6-14.6 [facility] Comment on above: Order Comment: PER Kinsey DE JESUS RN OKAY TO DO MORNING LABS EARLY Performed By: #### L 100.0100, L500.2500 ####[facility] [address] [place], [address] Hematocrit (Bld) [Volume fraction] 36.4 % Low 37-47 [facility] Comment on above: Order Comment: PER Kinsey DE JESUS RN OKAY TO DO MORNING LABS EARLY Performed By: #### L 100.0100, L500.2500 ####[facility] [address] [place], [address] Hemoglobin (Bld) [Mass/Vol] 12.1 g/dL Normal 12.0-15.0 [facility] Comment on above: Order Comment: PER Kinsey DE JESUS RN OKAY TO DO MORNING LABS EARLY Performed By: #### L 100.0100, L500.2500 ####[facility] [address] [place], [address] IG% 0.600 Normal 0.0-0.9 [facility] Comment on above: Order Comment: PER Kinsey DE JESUS RN OKAY TO DO MORNING LABS EARLY Result Comment: IG% - Immature Granulocytes (promyelocytes, myelocytes andmetamyelocytes) > 1% indicates that a LEFT SHIFT is Present. Performed By: #### L 100.0100, L500.2500 ####[facility] [address] [place], [address] Lymphocytes/100 WBC (Bld) 19.0 % Normal 19-41 [facility] Comment on above: Order Comment: PER Kinsey DE JESUS RN OKAY TO DO MORNING LABS EARLY Performed By: #### L 100.0100, L500.2500 ####[facility] [address] [place], [address] MCH (RBC) [Entitic mass] 27.8 pg Normal 27.0-32.0 [facility] Comment on above: Order Comment: PER Kinsey DE JESUS RN OKAY TO DO MORNING LABS EARLY Performed By: #### L 100.0100, L500.2500 ####[facility] [address] [place], [address] MCHC (RBC) [Mass/Vol] 33.2 g/dL Normal 32-36 [facility] Comment on above: Order Comment: PER Kinsey DE JESUS RN OKAY TO DO MORNING LABS EARLY Performed By: #### L 100.0100, L500.2500 ####[facility] [address] [place], [address] MCV (RBC) [Entitic vol] 83.7 fL Normal 81-99 [facility] Comment on above: Order Comment: PER Kinsey DE JESUS RN OKAY TO DO MORNING LABS EARLY Performed By: #### L 100.0100, L500.2500 ####[facility] [address] [place], [address] Monocytes/100 WBC (Bld) 8.4 % Normal 0-10 [facility] Comment on above: Order Comment: PER Kinsey DE JESUS RN OKAY TO DO MORNING LABS EARLY Performed By: #### L 100.0100, L500.2500 ####[facility] [address] [place], [address] Neutrophils/100 WBC (Bld) 71.0 % High 47-70 [facility] Comment on above: Order Comment: PER Kinsey D EJESUS RN OKAY TO DO MORNING LABS EARLY Performed By: #### L 100.0100, L500.2500 ####[facility] [address] [place], [address] Nucleated RBC (Bld) [#/Vol] 0 10*3/uL Normal 0-5 [facility] Comment on above: Order Comment: PER Kinsey DE JESUS RN OKAY TO DO MORNING LABS EARLY Performed By: #### L 100.0100, L500.2500 ####[facility] [address] [place], [address] Platelet mean volume (Bld) [Entitic vol] 10.1 fL Normal 6.2-12.0 [facility] Comment on above: Order Comment: PER Kinsey DE JESUS RN OKAY TO DO MORNING LABS EARLY Performed By: #### L 100.0100, L500.2500 ####[facility] [address] [place], [address] Platelets (Bld) [#/Vol] 256 10*3/uL Normal 150-450 [facility] Comment on above: Order Comment: PER Kinsey DE JESUS RN OKAY TO DO MORNING LABS EARLY Performed By: #### L 100.0100, L500.2500 ####[facility] [address] [place], [address] RBC (Bld) [#/Vol] 4.35 10*6/uL Normal 4.2-5.4 [facility] Comment on above: Order Comment: PER Kinsey DE JESUS RN OKAY TO DO MORNING LABS EARLY Performed By: #### L 100.0100, L500.2500 ####[facility] [address] [place], [address] RDW SD 45.6 fl High 35.1-43.9 [facility] Comment on above: Order Comment: PER Kinsey DE JESUS RN OKAY TO DO MORNING LABS EARLY Performed By: #### L 100.0100, L500.2500 ####[facility] [address] [place], [address] WBC (Bld) [#/Vol] 9.7 10*3/uL Normal 4.4-11.0 [facility] Comment on above: Order Comment: YVON DE JESUS RN OKAY TO DO MORNING LABS EARLY Performed By: #### L 100.0100, L500.2500 ####[facility] [address] [place], [address] Lactic Acidon 01-08-2025 Lactate [Moles/Vol] 1.7 mmol/L Normal 0.0-2.0 [facility] Comment on above: Performed By: #### L 503.6005 ####[facility] [address] [place], [address] 12 Lead EKGon 01-07-2025 12 Lead EKG Normal [facility] Alcohol, Blood (Medical)-Ser umon 01-07-2025 SERUM ETOH < 10.1 Normal <=10.0 [facility] Comment on above: Result Comment: This test is for medical purposes only. The legaldefinition of intoxication varies according to local law. Performed By: #### L 501.2450, L500.3400, L500.2500, L505.5000, L300.4310, L300.3900, L501.9100, L100.0100 ####[facility] [address] [place], [address] Basic Metabolic Profile (BMP )on 01-07-2025 BUN/CRE 13.4 RATIO Normal 10-20 [facility] Comment on above: Performed By: #### L 501.2450, L500.3400, L500.2500, L505.5000, L300.4310, L300.3900, L501.9100, L100.0100 ####[facility] [address] [place], [address] Calcium [Mass/Vol] 9.5 mg/dL Normal 7.6-11.0 [facility] Comment on above: Performed By: #### L 501.2450, L500.3400, L500.2500, L505.5000, L300.4310, L300.3900, L501.9100, L100.0100 ####[facility] [address] [place], [address] Chloride [Moles/Vol] 97 mmol/L Low 98-108 [facility] Comment on above: Performed By: #### L 501.2450, L500.3400, L500.2500, L505.5000, L300.4310, L300.3900, L501.9100, L100.0100 ####[facility] [address] [place], [address] CO2 [Moles/Vol] 20.5 mmol/L Low 21.0-32.0 [facility] Comment on above: Performed By: #### L 501.2450, L500.3400, L500.2500, L505.5000, L300.4310, L300.3900, L501.9100, L100.0100 ####[facility] [address] [place], [place], [address] Creatinine [Mass/Vol] 1.12 mg/dL Normal 0.70-1.20 [facility] Comment on above: Performed By: #### L 501.2450, L500.3400, L500.2500, L505.5000, L300.4310, L300.3900, L501.9100, L100.0100 ####[facility] [address] [place], [place], [address] ECRCL 47.33 ml/min Low 50-250 [facility] Comment on above: Performed By: #### L 501.2450, L500.3400, L500.2500, L505.5000, L300.4310, L300.3900, L501.9100, L100.0100 ####[facility] [address] [place], [place], [address] GAP 19 High 5-15 [facility] Comment on above: Performed By: #### L 501.2450, L500.3400, L500.2500, L505.5000, L300.4310, L300.3900, L501.9100, L100.0100 ####[facility] [address] [place], [place], [address] GFR/1.73 sq M.predicted among non-blacks MDRD (S/P/Bld) [Vol rate/Area] 50 mL/min/{1.73_m2} Low >60 [facility] Comment on above: Result Comment: mL/m in/1.73m2 CKD-EPI Creatinine Equation (2020) Performed By: #### L 501.2450, L500.3400, L500.2500, L505.5000, L300.4310, L300.3900, L501.9100, L100.0100 ####[facility] [address] [place], [address] Glucose [Mass/Vol] 183 mg/dL High 70-99 [facility] Comment on above: Performed By: #### L 501.2450, L500.3400, L500.2500, L505.5000, L300.4310, L300.3900, L501.9100, L100.0100 ####[facility] [address] [place], [address] Potassium [Moles/Vol] 4.1 mmol/L Normal 3.3-5.1 [facility] Comment on above: Performed By: #### L 501.2450, L500.3400, L500.2500, L505.5000, L300.4310, L300.3900, L501.9100, L100.0100 ####[facility] [address] [place], [address] Sodium [Moles/Vol] 137 mmol/L Normal 133-145 [facility] Comment on above: Performed By: #### L 501.2450, L500.3400, L500.2500, L505.5000, L300.4310, L300.3900, L501.9100, L100.0100 ####[facility] [address] [place], [address] Urea nitrogen [Mass/Vol] 15 mg/dL Normal 4-19 [facility] Comment on above: Performed By: #### L 501.2450, L500.3400, L500.2500, L505.5000, L300.4310, L300.3900, L501.9100, L100.0100 ####[facility] [address] [place], [address] Brain/Head without Contrasto n - Brain/Head without Contrast Normal [facility] CBC W/Diff, Automatedon 05-2 Absolute Lymph 2.40 X10 3/uL Normal 0.83-4.51 [facility] Comment on above: Performed By: #### L 501.2450, L500.3400, L500.2500, L505.5000, L300.4310, L300.3900, L501.9100, L100.0100 ####[facility] [address] [place], [address] Absolute Neut 8.7 X10 3/uL High 2.0-7.7 [facility] Comment on above: Performed By: #### L 501.2450, L500.3400, L500.2500, L505.5000, L300.4310, L300.3900, L501.9100, L100.0100 ####[facility] [address] [place], [address] Basophils/100 WBC (Bld) 0.4 % Normal 0-1 [facility] Comment on above: Performed By: #### L 501.2450, L500.3400, L500.2500, L505.5000, L300.4310, L300.3900, L501.9100, L100.0100 ####[facility] [address] [place], [address] Eosinophils/100 WBC (Bld) 1.2 % Normal 0-5 [facility] Comment on above: Performed By: #### L 501.2450, L500.3400, L500.2500, L505.5000, L300.4310, L300.3900, L501.9100, L100.0100 ####[facility] [address] [place], [address] Erythrocyte distribution width (RBC) [Ratio] 15.2 % High 11.6-14.6 [facility] Comment on above: Performed By: #### L 501.2450, L500.3400, L500.2500, L505.5000, L300.4310, L300.3900, L501.9100, L100.0100 ####[facility] [address] [place], [address] Hematocrit (Bld) [Volume fraction] 43.5 % Normal 37-47 [facility] Comment on above: Performed By: #### L 501.2450, L500.3400, L500.2500, L505.5000, L300.4310, L300.3900, L501.9100, L100.0100 ####[facility] [address] [place], [address] Hemoglobin (Bld) [Mass/Vol] 14.1 g/dL Normal 12.0-15.0 [facility] Comment on above: Performed By: #### L 501.2450, L500.3400, L500.2500, L505.5000, L300.4310, L300.3900, L501.9100, L100.0100 ####[facility] [address] [place], [address] IG% 0.500 Normal 0.0-0.9 [facility] Comment on above: Result Comment: IG% - Immature Granulocytes (promyelocytes, myelocytes andmetamyelocytes) > 1% indicates that a LEFT SHIFT is Present. Performed By: #### L 501.2450, L500.3400, L500.2500, L505.5000, L300.4310, L300.3900, L501.9100, L100.0100 ####[facility] [address] [place], [address] Lymphocytes/100 WBC (Bld) 19.5 % Normal 19-41 [facility] Comment on above: Performed By: #### L 501.2450, L500.3400, L500.2500, L505.5000, L300.4310, L300.3900, L501.9100, L100.0100 ####[facility] [address] [place], [address] MCH (RBC) [Entitic mass] 28.0 pg Normal 27.0-32.0 [facility] Comment on above: Performed By: #### L 501.2450, L500.3400, L500.2500, L505.5000, L300.4310, L300.3900, L501.9100, L100.0100 ####[facility] [address] [place], [address] MCHC (RBC) [Mass/Vol] 32.4 g/dL Normal 32-36 [facility] Comment on above: Performed By: #### L 501.2450, L500.3400, L500.2500, L505.5000, L300.4310, L300.3900, L501.9100, L100.0100 ####[facility] [address] [place], [address] MCV (RBC) [Entitic vol] 86.3 fL Normal 81-99 [facility] Comment on above: Performed By: #### L 501.2450, L500.3400, L500.2500, L505.5000, L300.4310, L300.3900, L501.9100, L100.0100 ####[facility] [address] [place], [address] Monocytes/100 WBC (Bld) 8.1 % Normal 0-10 [facility] Comment on above: Performed By: #### L 501.2450, L500.3400, L500.2500, L505.5000, L300.4310, L300.3900, L501.9100, L100.0100 ####[facility] [address] [place], [address] Neutrophils/100 WBC (Bld) 70.3 % High 47-70 [facility] Comment on above: Performed By: #### L 501.2450, L500.3400, L500.2500, L505.5000, L300.4310, L300.3900, L501.9100, L100.0100 ####[facility] [address] [place], [address] Nucleated RBC (Bld) [#/Vol] 0 10*3/uL Normal 0-5 [facility] Comment on above: Performed By: #### L 501.2450, L500.3400, L500.2500, L505.5000, L300.4310, L300.3900, L501.9100, L100.0100 ####[facility] [address] [place], [address] Platelet mean volume (Bld) [Entitic vol] 10.2 fL Normal 6.2-12.0 [facility] Comment on above: Performed By: #### L 501.2450, L500.3400, L500.2500, L505.5000, L300.4310, L300.3900, L501.9100, L100.0100 ####[facility] [address] [place], [address] Platelets (Bld) [#/Vol] 350 10*3/uL Normal 150-450 [facility] Comment on above: Performed By: #### L 501.2450, L500.3400, L500.2500, L505.5000, L300.4310, L300.3900, L501.9100, L100.0100 ####[facility] [address] [place], [address] RBC (Bld) [#/Vol] 5.04 10*6/uL Normal 4.2-5.4 [facility] Comment on above: Performed By: #### L 501.2450, L500.3400, L500.2500, L505.5000, L300.4310, L300.3900, L501.9100, L100.0100 ####[facility] [address] [place], [address] RDW SD 48.3 fl High 35.1-43.9 [facility] Comment on above: Performed By: #### L 501.2450, L500.3400, L500.2500, L505.5000, L300.4310, L300.3900, L501.9100, L100.0100 ####[facility] [address] [place], [address] WBC (Bld) [#/Vol] 12.3 10*3/uL High 4.4-11.0 [facility] Comment on above: Performed By: #### L 501.2450, L500.3400, L500.2500, L505.5000, L300.4310, L300.3900, L501.9100, L100.0100 ####[facility] [address] [place], [address] Chest 1 View (Portable)on Chest 1 View (Portable) Normal [facility] Emergency Department Summary on 01-07-2025 Emergency Department Summary Normal [facility] H AND P Exam - Hospitaliston 01-07-2025 H&P Exam - Hospitalist Normal [facility] L499.0042on 01-07-2025 Trop T High Sen 15 ng/L High <=14 [facility] Comment on above: Performed By: #### L 499.0042 ####[facility] [address] [place], [address] L501.4021on 01-07-2025 Trop T High Sen 16 ng/L High <=14 [facility] Comment on above: Performed By: #### L 501.9520, L501.4021 ####[facility] [address] [place], [address] Lactic Acidon 01-07-2025 Lactate [Moles/Vol] 2.0 mmol/L Normal 0.0-2.0 [facility] Comment on above: Order Comment: Y Result Comment: Crit ical Result(s) Called at: 2232 by:??FIORELLA HAVEN TO EMMATEAL Results read back by same. Performed By: #### L 503.6005 ####[facility] [address] [place], [address] Lipaseon 01-07-2025 Lipase [Catalytic activity/Vol] 29 U/L Normal 13-75 [facility] Comment on above: Result Comment: Beverly lindsay note:LIPASE revised reference range effective 22.New Lipase methodology. Expected to produce lower valuesthan the previous assay method.NEW Reference Range: 13 - 75 U/L Performed By: #### L 501.2450, L500.3400, L500.2500, L505.5000, L300.4310, L300.3900, L501.9100, L100.0100 ####[facility] [address] [place], [place], [address] Liver Profileon 01-07-2025 Albumin [Mass/Vol] 4.0 g/dL Normal 3.4-4.8 [facility] Comment on above: Performed By: #### L 501.2450, L500.3400, L500.2500, L505.5000, L300.4310, L300.3900, L501.9100, L100.0100 ####[facility] [address] [place], [place], [id number] ALK PHOS 79 U/L Normal 35-104 [facility] Comment on above: Performed By: #### L 501.2450, L500.3400, L500.2500, L505.5000, L300.4310, L300.3900, L501.9100, L100.0100 ####[facility] [address] [place], [address] ALT [Catalytic activity/Vol] 30 U/L Normal <=34 [facility] Comment on above: Performed By: #### L 501.2450, L500.3400, L500.2500, L505.5000, L300.4310, L300.3900, L501.9100, L100.0100 ####[facility] [address] [place], [address] AST [Catalytic activity/Vol] 21 U/L Normal <=31 [facility] Comment on above: Performed By: #### L 501.2450, L500.3400, L500.2500, L505.5000, L300.4310, L300.3900, L501.9100, L100.0100 ####[facility] [address] [place], [address] Bilirubin [Mass/Vol] 0.26 mg/dL Normal 0.00-1.30 [facility] Comment on above: Performed By: #### L 501.2450, L500.3400, L500.2500, L505.5000, L300.4310, L300.3900, L501.9100, L100.0100 ####[facility] [address] [place], [address] Bilirubin.direct [Mass/Vol] 0.14 mg/dL Normal 0.00-0.30 [facility] Comment on above: Performed By: #### L 501.2450, L500.3400, L500.2500, L505.5000, L300.4310, L300.3900, L501.9100, L100.0100 ####[facility] [address] [place], [address] Globulin (S) [Mass/Vol] 3.0 g/dL Normal 2.2-4.2 [facility] Comment on above: Performed By: #### L 501.2450, L500.3400, L500.2500, L505.5000, L300.4310, L300.3900, L501.9100, L100.0100 ####[facility] [address] [place], [address] T PROT 7.0 g/dL Normal 5.9-8.4 [facility] Comment on above: Performed By: #### L 501.2450, L500.3400, L500.2500, L505.5000, L300.4310, L300.3900, L501.9100, L100.0100 ####[facility] [address] [place], [address] Partial Thromboplast Timeon 01-07-2025 aPTT Coag (Bld) [Time] 24.6 s Normal 24.1-36.2 [facility] Comment on above: Performed By: #### L 501.2450, L500.3400, L500.2500, L505.5000, L300.4310, L300.3900, L501.9100, L100.0100 ####[facility] [address] [place], [address] Prothrombin Time w/INRon INR Coag (PPP) [Relative time] 0.9 {INR} Normal [facility] Comment on above: Performed By: #### L 501.2450, L500.3400, L500.2500, L505.5000, L300.4310, L300.3900, L501.9100, L100.0100 ####[facility] [address] [place], [address] PT Coag (PPP) [Time] 12.7 s Normal 11.7-14.9 [facility] Comment on above: Performed By: #### L 501.2450, L500.3400, L500.2500, L505.5000, L300.4310, L300.3900, L501.9100, L100.0100 ####[facility] [address] [place], [address] Thyroid Stim Hormone (TSH)on 01-07-2025 TSH 5.620 uIU/mL High 0.300-4.200 [facility] Comment on above: Performed By: #### L 501.9520, L501.4021 ####[facility] [address] [place], [address] Urinalysis, Completeon 01-07 BACTERIA 1+ /hpf Normal None Seen [facility] Comment on above: Order Comment: CLEAN CATCH Performed By: #### L 400.0001 ####[facility] [address] [place], [address] RBC 0-5 SEEN Normal 0-5 [facility] Comment on above: Order Comment: CLEAN CATCH Performed By: #### L 400.0001 ####[facility] [address] [place], [address] WBC 10-25 SEEN Normal 0-5 [facility] Comment on above: Order Comment: CLEAN CATCH Performed By: #### L 400.0001 ####[facility] [address] [place], [address] EPI,SQUAMOUS 0 SEEN Normal 5-10 [facility] Comment on above: Order Comment: CLEAN CATCH Performed By: #### L 400.0001 ####[facility] [address] [place], [address] Mucus Ql (Urine sed) 0 SEEN Normal [facility] Comment on above: Order Comment: CLEAN CATCH Performed By: #### L 400.0001 ####[facility] [address] [place], [address] Urine Drug Screen (VISTA)on 01-07-2025 AMPHETAMINES Negative Normal <1000 ng/mL [facility] Comment on above: Performed By: #### L 501.2450, L500.3400, L500.2500, L505.5000, L300.4310, L300.3900, L501.9100, L100.0100 ####[facility] [address] [place], [address] BARBITIURATES Negative Normal < 200 ng/mL [facility] Comment on above: Performed By: #### L 501.2450, L500.3400, L500.2500, L505.5000, L300.4310, L300.3900, L501.9100, L100.0100 ####[facility] [address] [place], [address] BENZODIAZIPINE Negative Normal < 200 ng/mL [facility] Comment on above: Performed By: #### L 501.2450, L500.3400, L500.2500, L505.5000, L300.4310, L300.3900, L501.9100, L100.0100 ####[facility] [address] [place], [phone] BUP Ur Drug Scr Negative Normal < 200 ng/mL [facility] Comment on above: Performed By: #### L 501.2450, L500.3400, L500.2500, L505.5000, L300.4310, L300.3900, L501.9100, L100.0100 ####[facility] [address] [place], [address] COCAINE Negative Normal < 300 ng/mL [facility] Comment on above: Performed By: #### L 501.2450, L500.3400, L500.2500, L505.5000, L300.4310, L300.3900, L501.9100, L100.0100 ####[facility] [address] [place], [address] Fentanyl Negative Normal [facility] Comment on above: Performed By: #### L 501.2450, L500.3400, L500.2500, L505.5000, L300.4310, L300.3900, L501.9100, L100.0100 ####[facility] [address] [place], [place], [id number] METHADONE Negative Normal < 300 ng/mL [facility] Comment on above: Performed By: #### L 501.2450, L500.3400, L500.2500, L505.5000, L300.4310, L300.3900, L501.9100, L100.0100 ####[facility] [address] [place], [address] OPIATES Negative Normal < 300 ng/mL [facility] Comment on above: Performed By: #### L 501.2450, L500.3400, L500.2500, L505.5000, L300.4310, L300.3900, L501.9100, L100.0100 ####[facility] [address] [place], [address] OXYCODONE Negative Normal < 100 ng/mL [facility] Comment on above: Performed By: #### L 501.2450, L500.3400, L500.2500, L505.5000, L300.4310, L300.3900, L501.9100, L100.0100 ####[facility] [address] [place], [phone] PCP Negative Normal < 25 ng/mL [facility] Comment on above: Performed By: #### L 501.2450, L500.3400, L500.2500, L505.5000, L300.4310, L300.3900, L501.9100, L100.0100 ####[facility] [address] [place], [address] THC Negative Normal < 50 ng/mL [facility] Comment on above: Performed By: #### L 501.2450, L500.3400, L500.2500, L505.5000, L300.4310, L300.3900, L501.9100, L100.0100 ####[facility] [address] [place], [place], [id number] MR/Sarah 12-26-2024 MR/BMS.BP Normal [facility] Spine Lumbar (Routine)on Spine Lumbar (Routine) Normal [facility] Shoulder min 2 Viewson 12-09 Shoulder min 2 Views Normal [facility] MR/BMS.BPon 12-03-2024 MR/BMS.BP Normal [facility] Basic Metabolic Profile (BMP )on 11-14-2024 BUN/CRE 21.4 RATIO High 10-20 [facility] Comment on above: Performed By: #### L 100.0100, L500.2500 ####[facility] [address] [place], [address] Calcium [Mass/Vol] 10.1 mg/dL Normal 7.6-11.0 [facility] Comment on above: Performed By: #### L 100.0100, L500.2500 ####[facility] [address] [place], [address] Chloride [Moles/Vol] 102 mmol/L Normal 98-108 [facility] Comment on above: Performed By: #### L 100.0100, L500.2500 ####[facility] [address] [place], [address] CO2 [Moles/Vol] 24.9 mmol/L Normal 21.0-32.0 [facility] Comment on above: Performed By: #### L 100.0100, L500.2500 ####[facility] [address] [place], [address] Creatinine [Mass/Vol] 0.94 mg/dL Normal 0.70-1.20 [facility] Comment on above: Performed By: #### L 100.0100, L500.2500 ####[facility] [address] [place], [address] ECRCL 58.42 ml/min Normal 50-250 [facility] Comment on above: Performed By: #### L 100.0100, L500.2500 ####[facility] [address] [place], [address] GAP 12 Normal 5-15 [facility] Comment on above: Performed By: #### L 100.0100, L500.2500 ####[facility] [address] [place], [address] GFR/1.73 sq M.predicted among non-blacks MDRD (S/P/Bld) [Vol rate/Area] 62 mL/min/{1.73_m2} Normal >60 [facility] Comment on above: Result Comment: mL/m in/1.73m2 CKD-EPI Creatinine Equation (2020) Performed By: #### L 100.0100, L500.2500 ####[facility] [address] [place], [address] Glucose [Mass/Vol] 104 mg/dL High 70-99 [facility] Comment on above: Performed By: #### L 100.0100, L500.2500 ####[facility] [address] [place], [address] Potassium [Moles/Vol] 4.7 mmol/L Normal 3.3-5.1 [facility] Comment on above: Performed By: #### L 100.0100, L500.2500 ####[facility] [address] [place], [address] Sodium [Moles/Vol] 139 mmol/L Normal 133-145 [facility] Comment on above: Performed By: #### L 100.0100, L500.2500 ####[facility] [address] [place], [address] Urea nitrogen [Mass/Vol] 20 mg/dL High 4-19 [facility] Comment on above: Performed By: #### L 100.0100, L500.2500 ####[facility] [address] [place], [address] CBC W/Diff, Automatedon 04-0 4-2024 Absolute Lymph 1.74 X10 3/uL Normal 0.83-4.51 [facility] Comment on above: Performed By: #### L 100.0100, L500.2500 ####[facility] [address] [place], [address] Absolute Neut 5.3 X10 3/uL Normal 2.0-7.7 [facility] Comment on above: Performed By: #### L 100.0100, L500.2500 ####[facility] [address] [place], [address] Basophils/100 WBC (Bld) 0.4 % Normal 0-1 [facility] Comment on above: Performed By: #### L 100.0100, L500.2500 ####[facility] [address] [place], [address] Eosinophils/100 WBC (Bld) 3.9 % Normal 0-5 [facility] Comment on above: Performed By: #### L 100.0100, L500.2500 ####[facility] [address] [place], [address] Erythrocyte distribution width (RBC) [Ratio] 15.3 % High 11.6-14.6 [facility] Comment on above: Performed By: #### L 100.0100, L500.2500 ####[facility] [address] [place], [address] Hematocrit (Bld) [Volume fraction] 42.2 % Normal 37-47 [facility] Comment on above: Performed By: #### L 100.0100, L500.2500 ####[facility] [address] [place], [address] Hemoglobin (Bld) [Mass/Vol] 13.7 g/dL Normal 12.0-15.0 [facility] Comment on above: Performed By: #### L 100.0100, L500.2500 ####[facility] [address] [place], [address] IG% 0.400 Normal 0.0-0.9 [facility] Comment on above: Result Comment: IG% - Immature Granulocytes (promyelocytes, myelocytes andmetamyelocytes) > 1% indicates that a LEFT SHIFT is Present. Performed By: #### L 100.0100, L500.2500 ####[facility] [address] [place], [address] Lymphocytes/100 WBC (Bld) 22.0 % Normal 19-41 [facility] Comment on above: Performed By: #### L 100.0100, L500.2500 ####[facility] [address] [place], [address] MCH (RBC) [Entitic mass] 27.6 pg Normal 27.0-32.0 [facility] Comment on above: Performed By: #### L 100.0100, L500.2500 ####[facility] [address] [place], [address] MCHC (RBC) [Mass/Vol] 32.5 g/dL Normal 32-36 [facility] Comment on above: Performed By: #### L 100.0100, L500.2500 ####[facility] [address] [place], [address] MCV (RBC) [Entitic vol] 85.1 fL Normal 81-99 [facility] Comment on above: Performed By: #### L 100.0100, L500.2500 ####[facility] [address] [place], [address] Monocytes/100 WBC (Bld) 6.4 % Normal 0-10 [facility] Comment on above: Performed By: #### L 100.0100, L500.2500 ####[facility] [address] [place], [address] Neutrophils/100 WBC (Bld) 66.9 % Normal 47-70 [facility] Comment on above: Performed By: #### L 100.0100, L500.2500 ####[facility] [address] [place], [address] Nucleated RBC (Bld) [#/Vol] 0 10*3/uL Normal 0-5 [facility] Comment on above: Performed By: #### L 100.0100, L500.2500 ####[facility] [address] [place], [address] Platelet mean volume (Bld) [Entitic vol] 9.5 fL Normal 6.2-12.0 [facility] Comment on above: Performed By: #### L 100.0100, L500.2500 ####[facility] [address] [place], [address] Platelets (Bld) [#/Vol] 349 10*3/uL Normal 150-450 [facility] Comment on above: Performed By: #### L 100.0100, L500.2500 ####[facility] [address] [place], [address] RBC (Bld) [#/Vol] 4.96 10*6/uL Normal 4.2-5.4 [facility] Comment on above: Performed By: #### L 100.0100, L500.2500 ####[facility] [address] [place], [address] RDW SD 46.8 fl High 35.1-43.9 [facility] Comment on above: Performed By: #### L 100.0100, L500.2500 ####[facility] [address] [place], [address] WBC (Bld) [#/Vol] 7.9 10*3/uL Normal 4.4-11.0 [facility] Comment on above: Performed By: #### L 100.0100, L500.2500 ####[facility] [address] [place], [address] Emergency Department Summary on 11-14-2024 Emergency Department Summary Normal [facility] Femur Min 2 Viewson 11-15-19 25 Femur Min 2 Views Normal [facility] HIP, UNI W/ Pelvis 2-3 Views on 11-14-2024 HIP, UNI W/ Pelvis 2-3 Views Normal [facility] Basic Metabolic Profile (BMP )on 10-22-2024 BUN Normal 4-19 [facility] Comment on above: Result Comment: Canc elled via OM: Order cancelled - Patient discharged Performed By: #### L 500.2500, L100.0100 ####[facility] [address] [place], [address] BUN/CRE Normal 10-20 [facility] Comment on above: Result Comment: Canc elled via OM: Order cancelled - Patient discharged Performed By: #### L 500.2500, L100.0100 ####[facility] [address] [place], [address] Calcium Normal 7.6-11.0 [facility] Comment on above: Result Comment: Canc elled via OM: Order cancelled - Patient discharged Performed By: #### L 500.2500, L100.0100 ####[facility] [address] [place], [address] CL Normal 98-108 [facility] Comment on above: Result Comment: Canc elled via OM: Order cancelled - Patient discharged Performed By: #### L 500.2500, L100.0100 ####[facility] [address] [place], [address] CO2 Normal 21.0-32.0 [facility] Comment on above: Result Comment: Canc elled via OM: Order cancelled - Patient discharged Performed By: #### L 500.2500, L100.0100 ####[facility] [address] [place], [address] CREAT,SERUM Normal 0.70-1.20 [facility] Comment on above: Result Comment: Canc elled via OM: Order cancelled - Patient discharged Performed By: #### L 500.2500, L100.0100 ####[facility] [address] [place], [address] eGFR Normal >60 [facility] Comment on above: Result Comment: Canc elled via OM: Order cancelled - Patient discharged Performed By: #### L 500.2500, L100.0100 ####[facility] [address] [place], [address] GAP Normal 5-15 [facility] Comment on above: Result Comment: Canc elled via OM: Order cancelled - Patient discharged Performed By: #### L 500.2500, L100.0100 ####[facility] [address] [place], [address] GLU Normal 70-99 [facility] Comment on above: Result Comment: Canc elled via OM: Order cancelled - Patient discharged Performed By: #### L 500.2500, L100.0100 ####[facility] [address] [place], [address] Potassium Normal 3.3-5.1 [facility] Comment on above: Result Comment: Canc elled via OM: Order cancelled - Patient discharged Performed By: #### L 500.2500, L100.0100 ####[facility] [address] [place], [address] Basic Metabolic Profile (BMP) Normal 133-145 [facility] Comment on above: Result Comment: Canc elled via OM: Order cancelled - Patient discharged Performed By: #### L 500.2500, L100.0100 ####[facility] [address] [place], [address] CBC W/Diff, Automatedon 03- Absolute Neut Normal 2.0-7.7 [facility] Comment on above: Result Comment: Canc elled via OM: Order cancelled - Patient discharged Performed By: #### L 500.2500, L100.0100 ####[facility] [address] [place], [address] HCT Normal 37-47 [facility] Comment on above: Result Comment: Canc elled via OM: Order cancelled - Patient discharged Performed By: #### L 500.2500, L100.0100 ####[facility] [address] [place], [address] HGB Normal 12.0-15.0 [facility] Comment on above: Result Comment: Canc elled via OM: Order cancelled - Patient discharged Performed By: #### L 500.2500, L100.0100 ####[facility] [address] [place], [address] MCH Normal 27.0-32.0 [facility] Comment on above: Result Comment: Canc elled via OM: Order cancelled - Patient discharged Performed By: #### L 500.2500, L100.0100 ####[facility] [address] [place], [address] MCHC Normal 32-36 [facility] Comment on above: Result Comment: Canc elled via OM: Order cancelled - Patient discharged Performed By: #### L 500.2500, L100.0100 ####[facility] [address] [place], [address] MCV Normal 81-99 [facility] Comment on above: Result Comment: Canc elled via OM: Order cancelled - Patient discharged Performed By: #### L 500.2500, L100.0100 ####[facility] [address] [place], [address] NEUT% Normal 47-70 [facility] Comment on above: Result Comment: Canc elled via OM: Order cancelled - Patient discharged Performed By: #### L 500.2500, L100.0100 ####[facility] [address] [place], [address] PLT Normal 150-450 [facility] Comment on above: Result Comment: Canc elled via OM: Order cancelled - Patient discharged Performed By: #### L 500.2500, L100.0100 ####[facility] [address] [place], [address] RBC Normal 4.2-5.4 [facility] Comment on above: Result Comment: Canc elled via OM: Order cancelled - Patient discharged Performed By: #### L 500.2500, L100.0100 ####[facility] [address] [place], [address] RDW CV Normal 11.6-14.6 [facility] Comment on above: Result Comment: Canc elled via OM: Order cancelled - Patient discharged Performed By: #### L 500.2500, L100.0100 ####[facility] [address] [place], [address] RDW SD Normal 35.1-43.9 [facility] Comment on above: Result Comment: Canc elled via OM: Order cancelled - Patient discharged Performed By: #### L 500.2500, L100.0100 ####[facility] [address] [place], [address] WBC Normal 4.4-11.0 [facility] Comment on above: Result Comment: Canc elled via OM: Order cancelled - Patient discharged Performed By: #### L 500.2500, L100.0100 ####[facility] [address] [place], [address] Basic Metabolic Profile (BMP )on 10-21-2024 BUN Normal 4-19 [facility] Comment on above: Result Comment: Canc elled via OM: Order cancelled - Patient discharged Performed By: #### L 100.0100, L500.2500 ####[facility] [address] [place], [address] BUN/CRE Normal 10-20 [facility] Comment on above: Result Comment: Canc elled via OM: Order cancelled - Patient discharged Performed By: #### L 100.0100, L500.2500 ####[facility] [address] [place], [address] Calcium Normal 7.6-11.0 [facility] Comment on above: Result Comment: Canc elled via OM: Order cancelled - Patient discharged Performed By: #### L 100.0100, L500.2500 ####[facility] [address] [place], [address] CL Normal 98-108 [facility] Comment on above: Result Comment: Canc elled via OM: Order cancelled - Patient discharged Performed By: #### L 100.0100, L500.2500 ####[facility] [address] [place], [address] CO2 Normal 21.0-32.0 [facility] Comment on above: Result Comment: Canc elled via OM: Order cancelled - Patient discharged Performed By: #### L 100.0100, L500.2500 ####[facility] [address] [place], [address] CREAT,SERUM Normal 0.70-1.20 [facility] Comment on above: Result Comment: Canc elled via OM: Order cancelled - Patient discharged Performed By: #### L 100.0100, L500.2500 ####[facility] [address] [place], [address] eGFR Normal >60 [facility] Comment on above: Result Comment: Canc elled via OM: Order cancelled - Patient discharged Performed By: #### L 100.0100, L500.2500 ####[facility] [address] [place], [address] GAP Normal 5-15 [facility] Comment on above: Result Comment: Canc elled via OM: Order cancelled - Patient discharged Performed By: #### L 100.0100, L500.2500 ####[facility] [address] [place], [address] GLU Normal 70-99 [facility] Comment on above: Result Comment: Canc elled via OM: Order cancelled - Patient discharged Performed By: #### L 100.0100, L500.2500 ####[facility] [address] [place], [address] Potassium Normal 3.3-5.1 [facility] Comment on above: Result Comment: Canc elled via OM: Order cancelled - Patient discharged Performed By: #### L 100.0100, L500.2500 ####[facility] [address] [place], [address] Basic Metabolic Profile (BMP) Normal 133-145 [facility] Comment on above: Result Comment: Canc elled via OM: Order cancelled - Patient discharged Performed By: #### L 100.0100, L500.2500 ####[facility] [address] [place], [address] CBC W/Diff, Automatedon - Absolute Neut Normal 2.0-7.7 [facility] Comment on above: Result Comment: Canc elled via OM: Order cancelled - Patient discharged Performed By: #### L 100.0100, L500.2500 ####[facility] [address] [place], [address] HCT Normal 37-47 [facility] Comment on above: Result Comment: Canc elled via OM: Order cancelled - Patient discharged Performed By: #### L 100.0100, L500.2500 ####[facility] [address] [place], [address] HGB Normal 12.0-15.0 [facility] Comment on above: Result Comment: Canc elled via OM: Order cancelled - Patient discharged Performed By: #### L 100.0100, L500.2500 ####[facility] [address] [place], [address] MCH Normal 27.0-32.0 [facility] Comment on above: Result Comment: Canc elled via OM: Order cancelled - Patient discharged Performed By: #### L 100.0100, L500.2500 ####[facility] [address] [place], [address] MCHC Normal 32-36 [facility] Comment on above: Result Comment: Canc elled via OM: Order cancelled - Patient discharged Performed By: #### L 100.0100, L500.2500 ####[facility] [address] [place], [address] MCV Normal 81-99 [facility] Comment on above: Result Comment: Canc elled via OM: Order cancelled - Patient discharged Performed By: #### L 100.0100, L500.2500 ####[facility] [address] [place], [address] NEUT% Normal 47-70 [facility] Comment on above: Result Comment: Canc elled via OM: Order cancelled - Patient discharged Performed By: #### L 100.0100, L500.2500 ####[facility] [address] [place], [address] PLT Normal 150-450 [facility] Comment on above: Result Comment: Canc elled via OM: Order cancelled - Patient discharged Performed By: #### L 100.0100, L500.2500 ####[facility] [address] [place], [address] RBC Normal 4.2-5.4 [facility] Comment on above: Result Comment: Canc elled via OM: Order cancelled - Patient discharged Performed By: #### L 100.0100, L500.2500 ####[facility] [address] [place], [address] RDW CV Normal 11.6-14.6 [facility] Comment on above: Result Comment: Canc elled via OM: Order cancelled - Patient discharged Performed By: #### L 100.0100, L500.2500 ####[facility] [address] [place], [address] RDW SD Normal 35.1-43.9 [facility] Comment on above: Result Comment: Canc elled via OM: Order cancelled - Patient discharged Performed By: #### L 100.0100, L500.2500 ####[facility] [address] [place], [address] WBC Normal 4.4-11.0 [facility] Comment on above: Result Comment: Canc elled via OM: Order cancelled - Patient discharged Performed By: #### L 100.0100, L500.2500 ####[facility] [address] [place], [address] L/S Spine Min 4 Viewson 10-11 L/S Spine Min 4 Views Normal [facility] Basic Metabolic Profile (BMP )on 10-20-2024 BUN Normal 4-19 [facility] Comment on above: Result Comment: Canc elled via OM: Order cancelled - Patient discharged Performed By: #### L 100.0100, L500.2500 ####[facility] [address] [place], [address] BUN/CRE Normal 10-20 [facility] Comment on above: Result Comment: Canc elled via OM: Order cancelled - Patient discharged Performed By: #### L 100.0100, L500.2500 ####[facility] [address] [place], [address] Calcium Normal 7.6-11.0 [facility] Comment on above: Result Comment: Canc elled via OM: Order cancelled - Patient discharged Performed By: #### L 100.0100, L500.2500 ####[facility] [address] [place], [address] CL Normal 98-108 [facility] Comment on above: Result Comment: Canc elled via OM: Order cancelled - Patient discharged Performed By: #### L 100.0100, L500.2500 ####[facility] [address] [place], [address] CO2 Normal 21.0-32.0 [facility] Comment on above: Result Comment: Canc elled via OM: Order cancelled - Patient discharged Performed By: #### L 100.0100, L500.2500 ####[facility] [address] [place], [address] CREAT,SERUM Normal 0.70-1.20 [facility] Comment on above: Result Comment: Canc elled via OM: Order cancelled - Patient discharged Performed By: #### L 100.0100, L500.2500 ####[facility] [address] [place], [address] eGFR Normal >60 [facility] Comment on above: Result Comment: Canc elled via OM: Order cancelled - Patient discharged Performed By: #### L 100.0100, L500.2500 ####[facility] [address] [place], [address] GAP Normal 5-15 [facility] Comment on above: Result Comment: Canc elled via OM: Order cancelled - Patient discharged Performed By: #### L 100.0100, L500.2500 ####[facility] [address] [place], [address] GLU Normal 70-99 [facility] Comment on above: Result Comment: Canc elled via OM: Order cancelled - Patient discharged Performed By: #### L 100.0100, L500.2500 ####[facility] [address] [place], [address] Potassium Normal 3.3-5.1 [facility] Comment on above: Result Comment: Canc elled via OM: Order cancelled - Patient discharged Performed By: #### L 100.0100, L500.2500 ####[facility] [address] [place], [address] Basic Metabolic Profile (BMP) Normal 133-145 [facility] Comment on above: Result Comment: Canc elled via OM: Order cancelled - Patient discharged Performed By: #### L 100.0100, L500.2500 ####[facility] [address] [place], [address] CBC W/Diff, Automatedon 03-1 0-2024 Absolute Neut Normal 2.0-7.7 [facility] Comment on above: Result Comment: Canc elled via OM: Order cancelled - Patient discharged Performed By: #### L 100.0100, L500.2500 ####[facility] [address] [place], [address] HCT Normal 37-47 [facility] Comment on above: Result Comment: Canc elled via OM: Order cancelled - Patient discharged Performed By: #### L 100.0100, L500.2500 ####[facility] [address] [place], [address] HGB Normal 12.0-15.0 [facility] Comment on above: Result Comment: Canc elled via OM: Order cancelled - Patient discharged Performed By: #### L 100.0100, L500.2500 ####[facility] [address] [place], [address] MCH Normal 27.0-32.0 [facility] Comment on above: Result Comment: Canc elled via OM: Order cancelled - Patient discharged Performed By: #### L 100.0100, L500.2500 ####[facility] [address] [place], [address] MCHC Normal 32-36 [facility] Comment on above: Result Comment: Canc elled via OM: Order cancelled - Patient discharged Performed By: #### L 100.0100, L500.2500 ####[facility] [address] [place], [address] MCV Normal 81-99 [facility] Comment on above: Result Comment: Canc elled via OM: Order cancelled - Patient discharged Performed By: #### L 100.0100, L500.2500 ####[facility] [address] [place], [address] NEUT% Normal 47-70 [facility] Comment on above: Result Comment: Canc elled via OM: Order cancelled - Patient discharged Performed By: #### L 100.0100, L500.2500 ####[facility] [address] [place], [address] PLT Normal 150-450 [facility] Comment on above: Result Comment: Canc elled via OM: Order cancelled - Patient discharged Performed By: #### L 100.0100, L500.2500 ####[facility] [address] [place], [address] RBC Normal 4.2-5.4 [facility] Comment on above: Result Comment: Canc elled via OM: Order cancelled - Patient discharged Performed By: #### L 100.0100, L500.2500 ####[facility] [address] [place], [address] RDW CV Normal 11.6-14.6 [facility] Comment on above: Result Comment: Canc elled via OM: Order cancelled - Patient discharged Performed By: #### L 100.0100, L500.2500 ####[facility] [address] [place], [address] RDW SD Normal 35.1-43.9 [facility] Comment on above: Result Comment: Canc elled via OM: Order cancelled - Patient discharged Performed By: #### L 100.0100, L500.2500 ####[facility] [address] [place], [address] WBC Normal 4.4-11.0 [facility] Comment on above: Result Comment: Canc elled via OM: Order cancelled - Patient discharged Performed By: #### L 100.0100, L500.2500 ####[facility] [address] [place], [address] Basic Metabolic Profile (BMP )on 10-19-2024 BUN Normal 4-19 [facility] Comment on above: Result Comment: Canc elled via OM: Order cancelled - Patient discharged Performed By: #### L 500.2500, L100.0100 ####[facility] [address] [place], [address] BUN/CRE Normal 10-20 [facility] Comment on above: Result Comment: Canc elled via OM: Order cancelled - Patient discharged Performed By: #### L 500.2500, L100.0100 ####[facility] [address] [place], [address] Calcium Normal 7.6-11.0 [facility] Comment on above: Result Comment: Canc elled via OM: Order cancelled - Patient discharged Performed By: #### L 500.2500, L100.0100 ####[facility] [address] [place], [address] CL Normal 98-108 [facility] Comment on above: Result Comment: Canc elled via OM: Order cancelled - Patient discharged Performed By: #### L 500.2500, L100.0100 ####[facility] [address] [place], [address] CO2 Normal 21.0-32.0 [facility] Comment on above: Result Comment: Canc elled via OM: Order cancelled - Patient discharged Performed By: #### L 500.2500, L100.0100 ####[facility] [address] [place], [address] CREAT,SERUM Normal 0.70-1.20 [facility] Comment on above: Result Comment: Canc elled via OM: Order cancelled - Patient discharged Performed By: #### L 500.2500, L100.0100 ####[facility] [address] [place], [address] eGFR Normal >60 [facility] Comment on above: Result Comment: Canc elled via OM: Order cancelled - Patient discharged Performed By: #### L 500.2500, L100.0100 ####[facility] [address] [place], [address] GAP Normal 5-15 [facility] Comment on above: Result Comment: Canc elled via OM: Order cancelled - Patient discharged Performed By: #### L 500.2500, L100.0100 ####[facility] [address] [place], [address] GLU Normal 70-99 [facility] Comment on above: Result Comment: Canc elled via OM: Order cancelled - Patient discharged Performed By: #### L 500.2500, L100.0100 ####[facility] [address] [place], [address] Potassium Normal 3.3-5.1 [facility] Comment on above: Result Comment: Canc elled via OM: Order cancelled - Patient discharged Performed By: #### L 500.2500, L100.0100 ####[facility] [address] [place], [address] Basic Metabolic Profile (BMP) Normal 133-145 [facility] Comment on above: Result Comment: Canc elled via OM: Order cancelled - Patient discharged Performed By: #### L 500.2500, L100.0100 ####[facility] [address] [place], [address] CBC W/Diff, Automatedon 03-0 Absolute Neut Normal 2.0-7.7 [facility] Comment on above: Result Comment: Canc elled via OM: Order cancelled - Patient discharged Performed By: #### L 500.2500, L100.0100 ####[facility] [address] [place], [address] HCT Normal 37-47 [facility] Comment on above: Result Comment: Canc elled via OM: Order cancelled - Patient discharged Performed By: #### L 500.2500, L100.0100 ####[facility] [address] [place], [address] HGB Normal 12.0-15.0 [facility] Comment on above: Result Comment: Canc elled via OM: Order cancelled - Patient discharged Performed By: #### L 500.2500, L100.0100 ####[facility] [address] [place], [address] MCH Normal 27.0-32.0 [facility] Comment on above: Result Comment: Canc elled via OM: Order cancelled - Patient discharged Performed By: #### L 500.2500, L100.0100 ####[facility] [address] [place], [address] MCHC Normal 32-36 [facility] Comment on above: Result Comment: Canc elled via OM: Order cancelled - Patient discharged Performed By: #### L 500.2500, L100.0100 ####[facility] [address] [place], [address] MCV Normal 81-99 [facility] Comment on above: Result Comment: Canc elled via OM: Order cancelled - Patient discharged Performed By: #### L 500.2500, L100.0100 ####[facility] [address] [place], [address] NEUT% Normal 47-70 [facility] Comment on above: Result Comment: Canc elled via OM: Order cancelled - Patient discharged Performed By: #### L 500.2500, L100.0100 ####[facility] [address] [place], [address] PLT Normal 150-450 [facility] Comment on above: Result Comment: Canc elled via OM: Order cancelled - Patient discharged Performed By: #### L 500.2500, L100.0100 ####[facility] [address] [place], [address] RBC Normal 4.2-5.4 [facility] Comment on above: Result Comment: Canc elled via OM: Order cancelled - Patient discharged Performed By: #### L 500.2500, L100.0100 ####[facility] [address] [place], [address] RDW CV Normal 11.6-14.6 [facility] Comment on above: Result Comment: Canc elled via OM: Order cancelled - Patient discharged Performed By: #### L 500.2500, L100.0100 ####[facility] [address] [place], [address] RDW SD Normal 35.1-43.9 [facility] Comment on above: Result Comment: Canc elled via OM: Order cancelled - Patient discharged Performed By: #### L 500.2500, L100.0100 ####[facility] [address] [place], [address] WBC Normal 4.4-11.0 [facility] Comment on above: Result Comment: Canc elled via OM: Order cancelled - Patient discharged Performed By: #### L 500.2500, L100.0100 ####[facility] [address] [place], [address] Basic Metabolic Profile (BMP )on 10-18-2024 BUN Normal 4-19 [facility] Comment on above: Result Comment: Canc elled via OM: Order cancelled - Patient discharged Performed By: #### L 100.0100, L500.2500 ####[facility] [address] [place], [address] BUN/CRE Normal 10-20 [facility] Comment on above: Result Comment: Canc elled via OM: Order cancelled - Patient discharged Performed By: #### L 100.0100, L500.2500 ####[facility] [address] [place], [address] Calcium Normal 7.6-11.0 [facility] Comment on above: Result Comment: Canc elled via OM: Order cancelled - Patient discharged Performed By: #### L 100.0100, L500.2500 ####[facility] [address] [place], [address] CL Normal 98-108 [facility] Comment on above: Result Comment: Canc elled via OM: Order cancelled - Patient discharged Performed By: #### L 100.0100, L500.2500 ####[facility] [address] [place], [address] CO2 Normal 21.0-32.0 [facility] Comment on above: Result Comment: Canc elled via OM: Order cancelled - Patient discharged Performed By: #### L 100.0100, L500.2500 ####[facility] [address] [place], [address] CREAT,SERUM Normal 0.70-1.20 [facility] Comment on above: Result Comment: Canc elled via OM: Order cancelled - Patient discharged Performed By: #### L 100.0100, L500.2500 ####[facility] [address] [place], [address] eGFR Normal >60 [facility] Comment on above: Result Comment: Canc elled via OM: Order cancelled - Patient discharged Performed By: #### L 100.0100, L500.2500 ####[facility] [address] [place], [address] GAP Normal 5-15 [facility] Comment on above: Result Comment: Canc elled via OM: Order cancelled - Patient discharged Performed By: #### L 100.0100, L500.2500 ####[facility] [address] [place], [address] GLU Normal 70-99 [facility] Comment on above: Result Comment: Canc elled via OM: Order cancelled - Patient discharged Performed By: #### L 100.0100, L500.2500 ####[facility] [address] [place], [address] Potassium Normal 3.3-5.1 [facility] Comment on above: Result Comment: Canc elled via OM: Order cancelled - Patient discharged Performed By: #### L 100.0100, L500.2500 ####[facility] [address] [place], [address] Basic Metabolic Profile (BMP) Normal 133-145 [facility] Comment on above: Result Comment: Canc elled via OM: Order cancelled - Patient discharged Performed By: #### L 100.0100, L500.2500 ####[facility] [address] [place], [address] CBC W/Diff, Automatedon 03-0 Absolute Neut Normal 2.0-7.7 [facility] Comment on above: Result Comment: Canc elled via OM: Order cancelled - Patient discharged Performed By: #### L 100.0100, L500.2500 ####[facility] [address] [place], [address] HCT Normal 37-47 [facility] Comment on above: Result Comment: Canc elled via OM: Order cancelled - Patient discharged Performed By: #### L 100.0100, L500.2500 ####[facility] [address] [place], [address] HGB Normal 12.0-15.0 [facility] Comment on above: Result Comment: Canc elled via OM: Order cancelled - Patient discharged Performed By: #### L 100.0100, L500.2500 ####[facility] [address] [place], [address] MCH Normal 27.0-32.0 [facility] Comment on above: Result Comment: Canc elled via OM: Order cancelled - Patient discharged Performed By: #### L 100.0100, L500.2500 ####[facility] [address] [place], [address] MCHC Normal 32-36 [facility] Comment on above: Result Comment: Canc elled via OM: Order cancelled - Patient discharged Performed By: #### L 100.0100, L500.2500 ####[facility] [address] [place], [address] MCV Normal 81-99 [facility] Comment on above: Result Comment: Canc elled via OM: Order cancelled - Patient discharged Performed By: #### L 100.0100, L500.2500 ####[facility] [address] [place], [address] NEUT% Normal 47-70 [facility] Comment on above: Result Comment: Canc elled via OM: Order cancelled - Patient discharged Performed By: #### L 100.0100, L500.2500 ####[facility] [address] [place], [address] PLT Normal 150-450 [facility] Comment on above: Result Comment: Canc elled via OM: Order cancelled - Patient discharged Performed By: #### L 100.0100, L500.2500 ####[facility] [address] [place], [address] RBC Normal 4.2-5.4 [facility] Comment on above: Result Comment: Canc elled via OM: Order cancelled - Patient discharged Performed By: #### L 100.0100, L500.2500 ####[facility] [address] [place], [address] RDW CV Normal 11.6-14.6 [facility] Comment on above: Result Comment: Canc elled via OM: Order cancelled - Patient discharged Performed By: #### L 100.0100, L500.2500 ####[facility] [address] [place], [address] RDW SD Normal 35.1-43.9 [facility] Comment on above: Result Comment: Canc elled via OM: Order cancelled - Patient discharged Performed By: #### L 100.0100, L500.2500 ####[facility] [address] [place], [address] WBC Normal 4.4-11.0 [facility] Comment on above: Result Comment: Canc elled via OM: Order cancelled - Patient discharged Performed By: #### L 100.0100, L500.2500 ####[facility] [address] [place], [address] Basic Metabolic Profile (BMP )on 10-17-2024 BUN/CRE 14.7 RATIO Normal 10-20 [facility] Comment on above: Performed By: #### L 500.2500, L100.0100 ####[facility] [address] [place], [address] Calcium [Mass/Vol] 9.0 mg/dL Normal 7.6-11.0 [facility] Comment on above: Performed By: #### L 500.2500, L100.0100 ####[facility] [address] [place], [address] Chloride [Moles/Vol] 107 mmol/L Normal 98-108 [facility] Comment on above: Performed By: #### L 500.2500, L100.0100 ####[facility] [address] [place], [address] CO2 [Moles/Vol] 22.0 mmol/L Normal 21.0-32.0 [facility] Comment on above: Performed By: #### L 500.2500, L100.0100 ####[facility] [address] [place], [address] Creatinine [Mass/Vol] 0.82 mg/dL Normal 0.70-1.20 [facility] Comment on above: Performed By: #### L 500.2500, L100.0100 ####[facility] [address] [place], [address] ECRCL 66.67 ml/min Normal 50-250 [facility] Comment on above: Performed By: #### L 500.2500, L100.0100 ####[facility] [address] [place], [address] GAP 11 Normal 5-15 [facility] Comment on above: Performed By: #### L 500.2500, L100.0100 ####[facility] [address] [place], [address] GFR/1.73 sq M.predicted among non-blacks MDRD (S/P/Bld) [Vol rate/Area] 73 mL/min/{1.73_m2} Normal >60 [facility] Comment on above: Result Comment: mL/m in/1.73m2 CKD-EPI Creatinine Equation (2020) Performed By: #### L 500.2500, L100.0100 ####[facility] [address] [place], [address] Glucose [Mass/Vol] 159 mg/dL High 70-99 [facility] Comment on above: Performed By: #### L 500.2500, L100.0100 ####[facility] [address] [place], [address] Potassium [Moles/Vol] 3.8 mmol/L Normal 3.3-5.1 [facility] Comment on above: Performed By: #### L 500.2500, L100.0100 ####[facility] [address] [place], [address] Sodium [Moles/Vol] 141 mmol/L Normal 133-145 [facility] Comment on above: Performed By: #### L 500.2500, L100.0100 ####[facility] [address] [place], [address] Urea nitrogen [Mass/Vol] 12 mg/dL Normal 4-19 [facility] Comment on above: Performed By: #### L 500.2500, L100.0100 ####[facility] [address] [place], [address] Bedside Glucoseon 10-17-2024 FINGERSTICK GLU 209 mg/dL High 74-106 [facility] Comment on above: Result Comment: GILDA GEMENT OF PATIENT CARE PER NURSING PROTOCOL Performed By: #### L 501.080 ####[facility] [address] [place], [address] FINGERSTICK GLU 157 mg/dL High 74-106 [facility] Comment on above: Result Comment: GILDA GEMENT OF PATIENT CARE PER NURSING PROTOCOL Performed By: #### L 501.080 ####[facility] [address] [place], [address] CBC W/Diff, Automatedon 03-0 -2024 Absolute Lymph 2.05 X10 3/uL Normal 0.83-4.51 [facility] Comment on above: Performed By: #### L 500.2500, L100.0100 ####[facility] [address] [place], [address] Absolute Neut 4.0 X10 3/uL Normal 2.0-7.7 [facility] Comment on above: Performed By: #### L 500.2500, L100.0100 ####[facility] [address] [place], [address] Basophils/100 WBC (Bld) 0.4 % Normal 0-1 [facility] Comment on above: Performed By: #### L 500.2500, L100.0100 ####[facility] [address] [place], [address] Eosinophils/100 WBC (Bld) 5.0 % Normal 0-5 [facility] Comment on above: Performed By: #### L 500.2500, L100.0100 ####[facility] [address] [place], [address] Erythrocyte distribution width (RBC) [Ratio] 15.0 % High 11.6-14.6 [facility] Comment on above: Performed By: #### L 500.2500, L100.0100 ####[facility] [address] [place], [address] Hematocrit (Bld) [Volume fraction] 37.2 % Normal 37-47 [facility] Comment on above: Performed By: #### L 500.2500, L100.0100 ####[facility] [address] [place], [address] Hemoglobin (Bld) [Mass/Vol] 12.2 g/dL Normal 12.0-15.0 [facility] Comment on above: Performed By: #### L 500.2500, L100.0100 ####[facility] [address] [place], [address] IG% 0.300 Normal 0.0-0.9 [facility] Comment on above: Result Comment: IG% - Immature Granulocytes (promyelocytes, myelocytes andmetamyelocytes) > 1% indicates that a LEFT SHIFT is Present. Performed By: #### L 500.2500, L100.0100 ####[facility] [address] [place], [address] Lymphocytes/100 WBC (Bld) 29.4 % Normal 19-41 [facility] Comment on above: Performed By: #### L 500.2500, L100.0100 ####[facility] [address] [place], [address] MCH (RBC) [Entitic mass] 27.5 pg Normal 27.0-32.0 [facility] Comment on above: Performed By: #### L 500.2500, L100.0100 ####[facility] [address] [place], [address] MCHC (RBC) [Mass/Vol] 32.8 g/dL Normal 32-36 [facility] Comment on above: Performed By: #### L 500.2500, L100.0100 ####[facility] [address] [place], [address] MCV (RBC) [Entitic vol] 84.0 fL Normal 81-99 [facility] Comment on above: Performed By: #### L 500.2500, L100.0100 ####[facility] [address] [place], [address] Monocytes/100 WBC (Bld) 7.9 % Normal 0-10 [facility] Comment on above: Performed By: #### L 500.2500, L100.0100 ####[facility] [address] [place], [address] Neutrophils/100 WBC (Bld) 57.0 % Normal 47-70 [facility] Comment on above: Performed By: #### L 500.2500, L100.0100 ####[facility] [address] [place], [address] Nucleated RBC (Bld) [#/Vol] 0 10*3/uL Normal 0-5 [facility] Comment on above: Performed By: #### L 500.2500, L100.0100 ####[facility] [address] [place], [address] Platelet mean volume (Bld) [Entitic vol] 9.8 fL Normal 6.2-12.0 [facility] Comment on above: Performed By: #### L 500.2500, L100.0100 ####[facility] [address] [place], [address] Platelets (Bld) [#/Vol] 256 10*3/uL Normal 150-450 [facility] Comment on above: Performed By: #### L 500.2500, L100.0100 ####[facility] [address] [place], [address] RBC (Bld) [#/Vol] 4.43 10*6/uL Normal 4.2-5.4 [facility] Comment on above: Performed By: #### L 500.2500, L100.0100 ####[facility] [address] [place], [address] RDW SD 45.6 fl High 35.1-43.9 [facility] Comment on above: Performed By: #### L 500.2500, L100.0100 ####[facility] [address] [place], [address] WBC (Bld) [#/Vol] 7.0 10*3/uL Normal 4.4-11.0 [facility] Comment on above: Performed By: #### L 500.2500, L100.0100 ####[facility] [address] [place], [address] Discharge Instructionon 030 Discharge Instruction Normal [facility] Basic Metabolic Profile (BMP )on 10-16-2024 BUN/CRE 12.4 RATIO Normal 10-20 [facility] Comment on above: Performed By: #### L 100.0100, L500.2500 ####[facility] [address] [place], [address] Calcium [Mass/Vol] 8.7 mg/dL Normal 7.6-11.0 [facility] Comment on above: Performed By: #### L 100.0100, L500.2500 ####[facility] [address] [place], [address] Chloride [Moles/Vol] 108 mmol/L Normal 98-108 [facility] Comment on above: Performed By: #### L 100.0100, L500.2500 ####[facility] [address] [place], [address] CO2 [Moles/Vol] 23.0 mmol/L Normal 21.0-32.0 [facility] Comment on above: Performed By: #### L 100.0100, L500.2500 ####[facility] [address] [place], [address] Creatinine [Mass/Vol] 0.79 mg/dL Normal 0.70-1.20 [facility] Comment on above: Performed By: #### L 100.0100, L500.2500 ####[facility] [address] [place], [address] ECRCL 68.34 ml/min Normal 50-250 [facility] Comment on above: Performed By: #### L 100.0100, L500.2500 ####[facility] [address] [place], [address] GAP 9 Normal 5-15 [facility] Comment on above: Performed By: #### L 100.0100, L500.2500 ####[facility] [address] [place], [address] GFR/1.73 sq M.predicted among non-blacks MDRD (S/P/Bld) [Vol rate/Area] 76 mL/min/{1.73_m2} Normal >60 [facility] Comment on above: Result Comment: mL/m in/1.73m2 CKD-EPI Creatinine Equation (2020) Performed By: #### L 100.0100, L500.2500 ####[facility] [address] [place], [address] Glucose [Mass/Vol] 170 mg/dL High 70-99 [facility] Comment on above: Performed By: #### L 100.0100, L500.2500 ####[facility] [address] [place], [address] Potassium [Moles/Vol] 3.9 mmol/L Normal 3.3-5.1 [facility] Comment on above: Performed By: #### L 100.0100, L500.2500 ####[facility] [address] [place], [address] Sodium [Moles/Vol] 140 mmol/L Normal 133-145 [facility] Comment on above: Performed By: #### L 100.0100, L500.2500 ####[facility] [address] [place], [address] Urea nitrogen [Mass/Vol] 10 mg/dL Normal 4-19 [facility] Comment on above: Performed By: #### L 100.0100, L500.2500 ####[facility] [address] [place], [address] Bedside Glucoseon 10-16-2024 FINGERSTICK GLU 166 mg/dL High 74-106 [facility] Comment on above: Result Comment: GILDA GEMENT OF PATIENT CARE PER NURSING PROTOCOL Performed By: #### L 501.080 ####[facility] [address] [place], [address] FINGERSTICK GLU 263 mg/dL High 74-106 [facility] Comment on above: Result Comment: GILDA GEMENT OF PATIENT CARE PER NURSING PROTOCOL Performed By: #### L 501.080 ####[facility] [address] [place], [address] FINGERSTICK GLU 257 mg/dL High 74-106 [facility] Comment on above: Result Comment: GILDA GEMENT OF PATIENT CARE PER NURSING PROTOCOL Performed By: #### L 501.080 ####[facility] [address] [place], [address] CBC W/Diff, Automatedon 03-0 Absolute Lymph 1.73 X10 3/uL Normal 0.83-4.51 [facility] Comment on above: Performed By: #### L 100.0100, L500.2500 ####[facility] [address] [place], [address] Absolute Neut 3.8 X10 3/uL Normal 2.0-7.7 [facility] Comment on above: Performed By: #### L 100.0100, L500.2500 ####[facility] [address] [place], [address] Basophils/100 WBC (Bld) 0.5 % Normal 0-1 [facility] Comment on above: Performed By: #### L 100.0100, L500.2500 ####[facility] [address] [place], [address] Eosinophils/100 WBC (Bld) 6.4 % High 0-5 [facility] Comment on above: Performed By: #### L 100.0100, L500.2500 ####[facility] [address] [place], [address] Erythrocyte distribution width (RBC) [Ratio] 14.9 % High 11.6-14.6 [facility] Comment on above: Performed By: #### L 100.0100, L500.2500 ####[facility] [address] [place], [address] Hematocrit (Bld) [Volume fraction] 35.4 % Low 37-47 [facility] Comment on above: Performed By: #### L 100.0100, L500.2500 ####[facility] [address] [place], [address] Hemoglobin (Bld) [Mass/Vol] 11.5 g/dL Low 12.0-15.0 [facility] Comment on above: Performed By: #### L 100.0100, L500.2500 ####[facility] [address] [place], [address] IG% 0.500 Normal 0.0-0.9 [facility] Comment on above: Result Comment: IG% - Immature Granulocytes (promyelocytes, myelocytes andmetamyelocytes) > 1% indicates that a LEFT SHIFT is Present. Performed By: #### L 100.0100, L500.2500 ####[facility] [address] [place], [address] Lymphocytes/100 WBC (Bld) 26.5 % Normal 19-41 [facility] Comment on above: Performed By: #### L 100.0100, L500.2500 ####[facility] [address] [place], [address] MCH (RBC) [Entitic mass] 27.4 pg Normal 27.0-32.0 [facility] Comment on above: Performed By: #### L 100.0100, L500.2500 ####[facility] [address] [place], [address] MCHC (RBC) [Mass/Vol] 32.5 g/dL Normal 32-36 [facility] Comment on above: Performed By: #### L 100.0100, L500.2500 ####[facility] [address] [place], [address] MCV (RBC) [Entitic vol] 84.3 fL Normal 81-99 [facility] Comment on above: Performed By: #### L 100.0100, L500.2500 ####[facility] [address] [place], [address] Monocytes/100 WBC (Bld) 8.0 % Normal 0-10 [facility] Comment on above: Performed By: #### L 100.0100, L500.2500 ####[facility] [address] [place], [address] Neutrophils/100 WBC (Bld) 58.1 % Normal 47-70 [facility] Comment on above: Performed By: #### L 100.0100, L500.2500 ####[facility] [address] [place], [address] Nucleated RBC (Bld) [#/Vol] 0 10*3/uL Normal 0-5 [facility] Comment on above: Performed By: #### L 100.0100, L500.2500 ####[facility] [address] [place], [address] Platelet mean volume (Bld) [Entitic vol] 10.1 fL Normal 6.2-12.0 [facility] Comment on above: Performed By: #### L 100.0100, L500.2500 ####[facility] [address] [place], [address] Platelets (Bld) [#/Vol] 249 10*3/uL Normal 150-450 [facility] Comment on above: Performed By: #### L 100.0100, L500.2500 ####[facility] [address] [place], [address] RBC (Bld) [#/Vol] 4.20 10*6/uL Normal 4.2-5.4 [facility] Comment on above: Performed By: #### L 100.0100, L500.2500 ####[facility] [address] [place], [address] RDW SD 45.5 fl High 35.1-43.9 [facility] Comment on above: Performed By: #### L 100.0100, L500.2500 ####[facility] [address] [place], [address] WBC (Bld) [#/Vol] 6.5 10*3/uL Normal 4.4-11.0 [facility] Comment on above: Performed By: #### L 100.0100, L500.2500 ####[facility] [address] [place], [address] Basic Metabolic Profile (BMP )on 10-15-2024 BUN/CRE 16.8 RATIO Normal 10-20 [facility] Comment on above: Performed By: #### L 100.0100, L500.2500 ####[facility] [address] [place], [address] Calcium [Mass/Vol] 8.7 mg/dL Normal 7.6-11.0 [facility] Comment on above: Performed By: #### L 100.0100, L500.2500 ####[facility] [address] [place], [address] Chloride [Moles/Vol] 108 mmol/L Normal 98-108 [facility] Comment on above: Performed By: #### L 100.0100, L500.2500 ####[facility] [address] [place], [address] CO2 [Moles/Vol] 22.0 mmol/L Normal 21.0-32.0 [facility] Comment on above: Performed By: #### L 100.0100, L500.2500 ####[facility] [address] [place], [address] Creatinine [Mass/Vol] 0.82 mg/dL Normal 0.70-1.20 [facility] Comment on above: Performed By: #### L 100.0100, L500.2500 ####[facility] [address] [place], [address] ECRCL 66.67 ml/min Normal 50-250 [facility] Comment on above: Performed By: #### L 100.0100, L500.2500 ####[facility] [address] [place], [address] GAP 10 Normal 5-15 [facility] Comment on above: Performed By: #### L 100.0100, L500.2500 ####[facility] [address] [place], [address] GFR/1.73 sq M.predicted among non-blacks MDRD (S/P/Bld) [Vol rate/Area] 73 mL/min/{1.73_m2} Normal >60 [facility] Comment on above: Result Comment: mL/m in/1.73m2 CKD-EPI Creatinine Equation (2020) Performed By: #### L 100.0100, L500.2500 ####[facility] [address] [place], [address] Glucose [Mass/Vol] 151 mg/dL High 70-99 [facility] Comment on above: Performed By: #### L 100.0100, L500.2500 ####[facility] [address] [place], [address] Potassium [Moles/Vol] 4.1 mmol/L Normal 3.3-5.1 [facility] Comment on above: Performed By: #### L 100.0100, L500.2500 ####[facility] [address] [place], [address] Sodium [Moles/Vol] 140 mmol/L Normal 133-145 [facility] Comment on above: Performed By: #### L 100.0100, L500.2500 ####[facility] [address] [place], [address] Urea nitrogen [Mass/Vol] 14 mg/dL Normal 4-19 [facility] Comment on above: Performed By: #### L 100.0100, L500.2500 ####[facility] [address] [place], [address] CBC W/Diff, Automatedon 03-0 5-2024 Absolute Lymph 2.26 X10 3/uL Normal 0.83-4.51 [facility] Comment on above: Performed By: #### L 100.0100, L500.2500 ####[facility] [address] [place], [address] Absolute Neut 3.8 X10 3/uL Normal 2.0-7.7 [facility] Comment on above: Performed By: #### L 100.0100, L500.2500 ####[facility] [address] [place], [address] Basophils/100 WBC (Bld) 0.4 % Normal 0-1 [facility] Comment on above: Performed By: #### L 100.0100, L500.2500 ####[facility] [address] [place], [address] Eosinophils/100 WBC (Bld) 6.5 % High 0-5 [facility] Comment on above: Performed By: #### L 100.0100, L500.2500 ####[facility] [address] [place], [address] Erythrocyte distribution width (RBC) [Ratio] 15.0 % High 11.6-14.6 [facility] Comment on above: Performed By: #### L 100.0100, L500.2500 ####[facility] [address] [place], [address] Hematocrit (Bld) [Volume fraction] 34.8 % Low 37-47 [facility] Comment on above: Performed By: #### L 100.0100, L500.2500 ####[facility] [address] [place], [address] Hemoglobin (Bld) [Mass/Vol] 11.5 g/dL Low 12.0-15.0 [facility] Comment on above: Performed By: #### L 100.0100, L500.2500 ####[facility] [address] [place], [address] IG% 0.300 Normal 0.0-0.9 [facility] Comment on above: Result Comment: IG% - Immature Granulocytes (promyelocytes, myelocytes andmetamyelocytes) > 1% indicates that a LEFT SHIFT is Present. Performed By: #### L 100.0100, L500.2500 ####[facility] [address] [place], [address] Lymphocytes/100 WBC (Bld) 31.8 % Normal 19-41 [facility] Comment on above: Performed By: #### L 100.0100, L500.2500 ####[facility] [address] [place], [address] MCH (RBC) [Entitic mass] 27.8 pg Normal 27.0-32.0 [facility] Comment on above: Performed By: #### L 100.0100, L500.2500 ####[facility] [address] [place], [address] MCHC (RBC) [Mass/Vol] 33.0 g/dL Normal 32-36 [facility] Comment on above: Performed By: #### L 100.0100, L500.2500 ####[facility] [address] [place], [address] MCV (RBC) [Entitic vol] 84.1 fL Normal 81-99 [facility] Comment on above: Performed By: #### L 100.0100, L500.2500 ####[facility] [address] [place], [address] Monocytes/100 WBC (Bld) 7.6 % Normal 0-10 [facility] Comment on above: Performed By: #### L 100.0100, L500.2500 ####[facility] [address] [place], [address] Neutrophils/100 WBC (Bld) 53.4 % Normal 47-70 [facility] Comment on above: Performed By: #### L 100.0100, L500.2500 ####[facility] [address] [place], [address] Nucleated RBC (Bld) [#/Vol] 0 10*3/uL Normal 0-5 [facility] Comment on above: Performed By: #### L 100.0100, L500.2500 ####[facility] [address] [place], [address] Platelet mean volume (Bld) [Entitic vol] 10.0 fL Normal 6.2-12.0 [facility] Comment on above: Performed By: #### L 100.0100, L500.2500 ####[facility] [address] [place], [address] Platelets (Bld) [#/Vol] 236 10*3/uL Normal 150-450 [facility] Comment on above: Performed By: #### L 100.0100, L500.2500 ####[facility] [address] [place], [address] RBC (Bld) [#/Vol] 4.14 10*6/uL Low 4.2-5.4 [facility] Comment on above: Performed By: #### L 100.0100, L500.2500 ####[facility] [address] [place], [address] RDW SD 46.0 fl High 35.1-43.9 [facility] Comment on above: Performed By: #### L 100.0100, L500.2500 ####[facility] [address] [place], [address] WBC (Bld) [#/Vol] 7.1 10*3/uL Normal 4.4-11.0 [facility] Comment on above: Performed By: #### L 100.0100, L500.2500 ####[facility] [address] [place], [address] Basic Metabolic Profile (BMP )on 10-14-2024 BUN/CRE 19.6 RATIO Normal 10-20 [facility] Comment on above: Performed By: #### L 100.0100, L500.2500 ####[facility] [address] [place], [address] Calcium [Mass/Vol] 8.9 mg/dL Normal 7.6-11.0 [facility] Comment on above: Performed By: #### L 100.0100, L500.2500 ####[facility] [address] [place], [address] Chloride [Moles/Vol] 108 mmol/L Normal 98-108 [facility] Comment on above: Performed By: #### L 100.0100, L500.2500 ####[facility] [address] [place], [address] CO2 [Moles/Vol] 24.0 mmol/L Normal 21.0-32.0 [facility] Comment on above: Performed By: #### L 100.0100, L500.2500 ####[facility] [address] [place], [address] Creatinine [Mass/Vol] 0.84 mg/dL Normal 0.70-1.20 [facility] Comment on above: Performed By: #### L 100.0100, L500.2500 ####[facility] [address] [place], [address] ECRCL 65.09 ml/min Normal 50-250 [facility] Comment on above: Performed By: #### L 100.0100, L500.2500 ####[facility] [address] [place], [address] GAP 10 Normal 5-15 [facility] Comment on above: Performed By: #### L 100.0100, L500.2500 ####[facility] [address] [place], [address] GFR/1.73 sq M.predicted among non-blacks MDRD (S/P/Bld) [Vol rate/Area] 71 mL/min/{1.73_m2} Normal >60 [facility] Comment on above: Result Comment: mL/m in/1.73m2 CKD-EPI Creatinine Equation (2020) Performed By: #### L 100.0100, L500.2500 ####[facility] [address] [place], [address] Glucose [Mass/Vol] 119 mg/dL High 70-99 [facility] Comment on above: Performed By: #### L 100.0100, L500.2500 ####[facility] [address] [place], [address] Potassium [Moles/Vol] 4.1 mmol/L Normal 3.3-5.1 [facility] Comment on above: Performed By: #### L 100.0100, L500.2500 ####[facility] [address] [place], [address] Sodium [Moles/Vol] 142 mmol/L Normal 133-145 [facility] Comment on above: Performed By: #### L 100.0100, L500.2500 ####[facility] [address] [place], [address] Urea nitrogen [Mass/Vol] 17 mg/dL Normal 4-19 [facility] Comment on above: Performed By: #### L 100.0100, L500.2500 ####[facility] [address] [place], [address] CBC W/Diff, Automatedon 03-0 -2024 Absolute Lymph 2.38 X10 3/uL Normal 0.83-4.51 [facility] Comment on above: Performed By: #### L 100.0100, L500.2500 ####[facility] [address] [place], [address] Absolute Neut 3.5 X10 3/uL Normal 2.0-7.7 [facility] Comment on above: Performed By: #### L 100.0100, L500.2500 ####[facility] [address] [place], [address] Basophils/100 WBC (Bld) 0.6 % Normal 0-1 [facility] Comment on above: Performed By: #### L 100.0100, L500.2500 ####[facility] [address] [place], [address] Eosinophils/100 WBC (Bld) 4.4 % Normal 0-5 [facility] Comment on above: Performed By: #### L 100.0100, L500.2500 ####[facility] [address] [place], [address] Erythrocyte distribution width (RBC) [Ratio] 15.1 % High 11.6-14.6 [facility] Comment on above: Performed By: #### L 100.0100, L500.2500 ####[facility] [address] [place], [address] Hematocrit (Bld) [Volume fraction] 32.6 % Low 37-47 [facility] Comment on above: Performed By: #### L 100.0100, L500.2500 ####[facility] [address] [place], [address] Hemoglobin (Bld) [Mass/Vol] 10.8 g/dL Low 12.0-15.0 [facility] Comment on above: Performed By: #### L 100.0100, L500.2500 ####[facility] [address] [place], [address] IG% 0.300 Normal 0.0-0.9 [facility] Comment on above: Result Comment: IG% - Immature Granulocytes (promyelocytes, myelocytes andmetamyelocytes) > 1% indicates that a LEFT SHIFT is Present. Performed By: #### L 100.0100, L500.2500 ####[facility] [address] [place], [address] Lymphocytes/100 WBC (Bld) 35.2 % Normal 19-41 [facility] Comment on above: Performed By: #### L 100.0100, L500.2500 ####[facility] [address] [place], [address] MCH (RBC) [Entitic mass] 28.0 pg Normal 27.0-32.0 [facility] Comment on above: Performed By: #### L 100.0100, L500.2500 ####[facility] [address] [place], [address] MCHC (RBC) [Mass/Vol] 33.1 g/dL Normal 32-36 [facility] Comment on above: Performed By: #### L 100.0100, L500.2500 ####[facility] [address] [place], [address] MCV (RBC) [Entitic vol] 84.5 fL Normal 81-99 [facility] Comment on above: Performed By: #### L 100.0100, L500.2500 ####[facility] [address] [place], [address] Monocytes/100 WBC (Bld) 7.5 % Normal 0-10 [facility] Comment on above: Performed By: #### L 100.0100, L500.2500 ####[facility] [address] [place], [address] Neutrophils/100 WBC (Bld) 52.0 % Normal 47-70 [facility] Comment on above: Performed By: #### L 100.0100, L500.2500 ####[facility] [address] [place], [address] Nucleated RBC (Bld) [#/Vol] 0 10*3/uL Normal 0-5 [facility] Comment on above: Performed By: #### L 100.0100, L500.2500 ####[facility] [address] [place], [address] Platelet mean volume (Bld) [Entitic vol] 10.2 fL Normal 6.2-12.0 [facility] Comment on above: Performed By: #### L 100.0100, L500.2500 ####[facility] [address] [place], [address] Platelets (Bld) [#/Vol] 238 10*3/uL Normal 150-450 [facility] Comment on above: Performed By: #### L 100.0100, L500.2500 ####[facility] [address] [place], [address] RBC (Bld) [#/Vol] 3.86 10*6/uL Low 4.2-5.4 [facility] Comment on above: Performed By: #### L 100.0100, L500.2500 ####[facility] [address] [place], [address] RDW SD 46.1 fl High 35.1-43.9 [facility] Comment on above: Performed By: #### L 100.0100, L500.2500 ####[facility] [address] [place], [address] WBC (Bld) [#/Vol] 6.8 10*3/uL Normal 4.4-11.0 [facility] Comment on above: Performed By: #### L 100.0100, L500.2500 ####[facility] [address] [place], [address] 12 Lead EKGon 10-13-2024 12 Lead EKG Normal [facility] Basic Metabolic Profile (BMP )on 10-13-2024 Calcium [Mass/Vol] 9.7 mg/dL Normal 7.6-11.0 [facility] Comment on above: Performed By: #### L 500.2500, L300.4310, L300.3900, L100.0100 ####[facility] [address] [place], [address] Chloride [Moles/Vol] 97 mmol/L Low 98-108 [facility] Comment on above: Performed By: #### L 500.2500, L300.4310, L300.3900, L100.0100 ####[facility] [address] [place], [address] CO2 [Moles/Vol] 19.2 mmol/L Low 21.0-32.0 [facility] Comment on above: Performed By: #### L 500.2500, L300.4310, L300.3900, L100.0100 ####[facility] [address] [place], [address] GAP 16 High 5-15 [facility] Comment on above: Performed By: #### L 500.2500, L300.4310, L300.3900, L100.0100 ####[facility] [address] [place], [address] Potassium [Moles/Vol] 5.0 mmol/L Normal 3.3-5.1 [facility] Comment on above: Performed By: #### L 500.2500, L300.4310, L300.3900, L100.0100 ####[facility] [address] [place], [address] Sodium [Moles/Vol] 132 mmol/L Low 133-145 [facility] Comment on above: Performed By: #### L 500.2500, L300.4310, L300.3900, L100.0100 ####[facility] [address] [place], [address] CBC W/Diff, Automatedon 03-0 3-2024 Absolute Lymph 1.39 X10 3/uL Normal 0.83-4.51 [facility] Comment on above: Performed By: #### L 500.2500, L300.4310, L300.3900, L100.0100 ####[facility] [address] [place], [address] Absolute Neut 8.2 X10 3/uL High 2.0-7.7 [facility] Comment on above: Performed By: #### L 500.2500, L300.4310, L300.3900, L100.0100 ####[facility] [address] [place], [address] Basophils/100 WBC (Bld) 0.2 % Normal 0-1 [facility] Comment on above: Performed By: #### L 500.2500, L300.4310, L300.3900, L100.0100 ####[facility] [address] [facility] [address] Eosinophils/100 WBC (Bld) 1.0 % Normal 0-5 [facility] Comment on above: Performed By: #### L 500.2500, L300.4310, L300.3900, L100.0100 ####[facility] [address] [place], [address] Erythrocyte distribution width (RBC) [Ratio] 14.7 % High 11.6-14.6 [facility] Comment on above: Performed By: #### L 500.2500, L300.4310, L300.3900, L100.0100 ####[facility] [address] [place], [address] Hematocrit (Bld) [Volume fraction] 37.4 % Normal 37-47 [facility] Comment on above: Performed By: #### L 500.2500, L300.4310, L300.3900, L100.0100 ####[facility] [address] [place], [address] Hemoglobin (Bld) [Mass/Vol] 11.9 g/dL Low 12.0-15.0 [facility] Comment on above: Performed By: #### L 500.2500, L300.4310, L300.3900, L100.0100 ####[facility] [address] [place], [address] IG% 0.500 Normal 0.0-0.9 [facility] Comment on above: Result Comment: IG% - Immature Granulocytes (promyelocytes, myelocytes andmetamyelocytes) > 1% indicates that a LEFT SHIFT is Present. Performed By: #### L 500.2500, L300.4310, L300.3900, L100.0100 ####[facility] [address] [place], [address] Lymphocytes/100 WBC (Bld) 13.7 % Low 19-41 [facility] Comment on above: Performed By: #### L 500.2500, L300.4310, L300.3900, L100.0100 ####[facility] [address] [place], [address] MCH (RBC) [Entitic mass] 27.1 pg Normal 27.0-32.0 [facility] Comment on above: Performed By: #### L 500.2500, L300.4310, L300.3900, L100.0100 ####[facility] [address] [place], [address] MCHC (RBC) [Mass/Vol] 31.8 g/dL Low 32-36 [facility] Comment on above: Performed By: #### L 500.2500, L300.4310, L300.3900, L100.0100 ####[facility] [address] [place], [address] MCV (RBC) [Entitic vol] 85.2 fL Normal 81-99 [facility] Comment on above: Performed By: #### L 500.2500, L300.4310, L300.3900, L100.0100 ####[facility] [address] [place], [address] Monocytes/100 WBC (Bld) 4.5 % Normal 0-10 [facility] Comment on above: Performed By: #### L 500.2500, L300.4310, L300.3900, L100.0100 ####[facility] [address] [place], [address] Neutrophils/100 WBC (Bld) 80.1 % High 47-70 [facility] Comment on above: Performed By: #### L 500.2500, L300.4310, L300.3900, L100.0100 ####[facility] [address] [place], [address] Nucleated RBC (Bld) [#/Vol] 0 10*3/uL Normal 0-5 [facility] Comment on above: Performed By: #### L 500.2500, L300.4310, L300.3900, L100.0100 ####[facility] [address] [place], [address] Platelet mean volume (Bld) [Entitic vol] 10.2 fL Normal 6.2-12.0 [facility] Comment on above: Performed By: #### L 500.2500, L300.4310, L300.3900, L100.0100 ####[facility] [address] [place], [address] Platelets (Bld) [#/Vol] 285 10*3/uL Normal 150-450 [facility] Comment on above: Performed By: #### L 500.2500, L300.4310, L300.3900, L100.0100 ####[facility] [address] [place], [address] RBC (Bld) [#/Vol] 4.39 10*6/uL Normal 4.2-5.4 [facility] Comment on above: Performed By: #### L 500.2500, L300.4310, L300.3900, L100.0100 ####[facility] [address] [place], [address] RDW SD 45.9 fl High 35.1-43.9 [facility] Comment on above: Performed By: #### L 500.2500, L300.4310, L300.3900, L100.0100 ####[facility] [address] [place], [address] WBC (Bld) [#/Vol] 10.2 10*3/uL Normal 4.4-11.0 [facility] Comment on above: Performed By: #### L 500.2500, L300.4310, L300.3900, L100.0100 ####[facility] [address] [place], [address] Emergency Department Summary on 10-13-2024 Emergency Department Summary Normal [facility] Partial Thromboplast Timeon 10-13-2024 aPTT Coag (Bld) [Time] 23.3 s Low 24.1-36.2 [facility] Comment on above: Performed By: #### L 500.2500, L300.4310, L300.3900, L100.0100 ####[facility] [address] [place], [address] Prothrombin Time w/INRon INR Coag (PPP) [Relative time] 1.0 {INR} Normal [facility] Comment on above: Performed By: #### L 500.2500, L300.4310, L300.3900, L100.0100 ####[facility] [address] [place], [address] PT Coag (PPP) [Time] 13.4 s Normal 11.7-14.9 [facility] Comment on above: Performed By: #### L 500.2500, L300.4310, L300.3900, L100.0100 ####[facility] [address] [place], [address] Urine Cultureon 10-10-2024 URC Normal [facility] Comment on above: Performed By: #### M 100.2200 ####[facility] [address] [place], [address] L/S Spine Min 4 Viewson 09-14 L/S Spine Min 4 Views Normal [facility] MR/BMS.BPon 09-05-2024 MR/BMS.BP Normal [facility] SCRN MAMM (CAD)W/MANPREET BILATo n 09-04-2024 SCRN MAMM (CAD)W/MANPREET BILAT Normal [facility] Urine Cultureon 09-04-2024 URC Normal [facility] Comment on above: Performed By: #### M 100.2200 ####[facility] [address] [place], [address] MR/BMS.BPon 06-11-2024 MR/BMS.BP Normal [facility] Re-Evaluation - PT (1)on Re-Evaluation - PT (1) Normal [facility] Neurology Visit Reporton Neurology Visit Report Normal [facility] CBC W/Diff, Automatedon Absolute Lymph 1.97 X10 3/uL Normal 0.83-4.51 [facility] Comment on above: Performed By: #### L 100.0100, L500.4050, L506.1000, L501.9520 ####[facility] [address] [place], [address] Absolute Neut 4.7 X10 3/uL Normal 2.0-7.7 [facility] Comment on above: Performed By: #### L 100.0100, L500.4050, L506.1000, L501.9520 ####[facility] [address] [place], [address] Basophils/100 WBC (Bld) 0.4 % Normal 0-1 [facility] Comment on above: Performed By: #### L 100.0100, L500.4050, L506.1000, L501.9520 ####[facility] [address] [place], [address] Eosinophils/100 WBC (Bld) 4.4 % Normal 0-5 [facility] Comment on above: Performed By: #### L 100.0100, L500.4050, L506.1000, L501.9520 ####[facility] [address] [place], [address] Erythrocyte distribution width (RBC) [Ratio] 14.7 % High 11.6-14.6 [facility] Comment on above: Performed By: #### L 100.0100, L500.4050, L506.1000, L501.9520 ####[facility] [address] [place], [address] Hematocrit (Bld) [Volume fraction] 42.0 % Normal 37-47 [facility] Comment on above: Performed By: #### L 100.0100, L500.4050, L506.1000, L501.9520 ####[facility] [address] [place], [address] Hemoglobin (Bld) [Mass/Vol] 13.4 g/dL Normal 12.0-15.0 [facility] Comment on above: Performed By: #### L 100.0100, L500.4050, L506.1000, L501.9520 ####[facility] [address] [place], [address] IG% 0.400 Normal 0.0-0.9 [facility] Comment on above: Result Comment: IG% - Immature Granulocytes (promyelocytes, myelocytes andmetamyelocytes) > 1% indicates that a LEFT SHIFT is Present. Performed By: #### L 100.0100, L500.4050, L506.1000, L501.9520 ####[facility] [address] [place], [address] Lymphocytes/100 WBC (Bld) 26.3 % Normal 19-41 [facility] Comment on above: Performed By: #### L 100.0100, L500.4050, L506.1000, L501.9520 ####[facility] [address] [place], [address] MCH (RBC) [Entitic mass] 27.0 pg Normal 27.0-32.0 [facility] Comment on above: Performed By: #### L 100.0100, L500.4050, L506.1000, L501.9520 ####[facility] [address] [place], [address] MCHC (RBC) [Mass/Vol] 31.9 g/dL Low 32-36 [facility] Comment on above: Performed By: #### L 100.0100, L500.4050, L506.1000, L501.9520 ####[facility] [address] [place], [address] MCV (RBC) [Entitic vol] 84.7 fL Normal 81-99 [facility] Comment on above: Performed By: #### L 100.0100, L500.4050, L506.1000, L501.9520 ####[facility] [address] [place], [address] Monocytes/100 WBC (Bld) 6.1 % Normal 0-10 [facility] Comment on above: Performed By: #### L 100.0100, L500.4050, L506.1000, L501.9520 ####[facility] [address] [place], [address] Neutrophils/100 WBC (Bld) 62.4 % Normal 47-70 [facility] Comment on above: Performed By: #### L 100.0100, L500.4050, L506.1000, L501.9520 ####[facility] [address] [place], [address] Nucleated RBC (Bld) [#/Vol] 0 10*3/uL Normal 0-5 [facility] Comment on above: Performed By: #### L 100.0100, L500.4050, L506.1000, L501.9520 ####[facility] [address] [place], [address] Platelet mean volume (Bld) [Entitic vol] 10.0 fL Normal 6.2-12.0 [facility] Comment on above: Performed By: #### L 100.0100, L500.4050, L506.1000, L501.9520 ####[facility] [address] [place], [address] Platelets (Bld) [#/Vol] 284 10*3/uL Normal 150-450 [facility] Comment on above: Performed By: #### L 100.0100, L500.4050, L506.1000, L501.9520 ####[facility] [address] [place], [address] RBC (Bld) [#/Vol] 4.96 10*6/uL Normal 4.2-5.4 [facility] Comment on above: Performed By: #### L 100.0100, L500.4050, L506.1000, L501.9520 ####[facility] [address] [place], [address] RDW SD 45.0 fl High 35.1-43.9 [facility] Comment on above: Performed By: #### L 100.0100, L500.4050, L506.1000, L501.9520 ####[facility] [address] [place], [address] WBC (Bld) [#/Vol] 7.5 10*3/uL Normal 4.4-11.0 [facility] Comment on above: Performed By: #### L 100.0100, L500.4050, L506.1000, L501.9520 ####[facility] [address] [place], [address] Comprehensive Metabolic [facility] 05-14-2024 Albumin [Mass/Vol] 3.4 g/dL Normal 3.2-5.0 [facility] Comment on above: Performed By: #### L 100.0100, L500.4050, L506.1000, L501.9520 ####[facility] [address] [place], [address] Albumin/Globulin [Mass ratio] 0.9 {ratio} Normal 0.9-2.4 [facility] Comment on above: Performed By: #### L 100.0100, L500.4050, L506.1000, L501.9520 ####[facility] [address] [place], [address] ALK P 66 U/L Normal 45-117 [facility] Comment on above: Performed By: #### L 100.0100, L500.4050, L506.1000, L501.9520 ####[facility] [address] [place], [address] ALT [Catalytic activity/Vol] 26 U/L Normal 13-56 [facility] Comment on above: Performed By: #### L 100.0100, L500.4050, L506.1000, L501.9520 ####[facility] [address] [place], [address] AST [Catalytic activity/Vol] 19 U/L Normal 15-37 [facility] Comment on above: Performed By: #### L 100.0100, L500.4050, L506.1000, L501.9520 ####[facility] [address] [place], [address] Bilirubin [Mass/Vol] 0.50 mg/dL Normal 0.20-1.00 [facility] Comment on above: Result Comment: For patients on eltrombopag therapy, use of Dimension Buxton TBIL is not recommended. Performed By: #### L 100.0100, L500.4050, L506.1000, L501.9520 ####[facility] [address] [place], [address] BUN/CRE 13.3 RATIO Normal 10-20 [facility] Comment on above: Performed By: #### L 100.0100, L500.4050, L506.1000, L501.9520 ####[facility] [address] [place], [address] CA,Total 9.6 mg/dL Normal 8.5-10.1 [facility] Comment on above: Performed By: #### L 100.0100, L500.4050, L506.1000, L501.9520 ####[facility] [address] [place], [address] Chloride [Moles/Vol] 106 mmol/L Normal 98-107 [facility] Comment on above: Performed By: #### L 100.0100, L500.4050, L506.1000, L501.9520 ####[facility] [address] [place], [address] CO2 [Moles/Vol] 25.0 mmol/L Normal 21.0-32.0 [facility] Comment on above: Performed By: #### L 100.0100, L500.4050, L506.1000, L501.9520 ####[facility] [address] [place], [address] Creatinine [Mass/Vol] 1.20 mg/dL High 0.55-1.02 [facility] Comment on above: Result Comment: The validity of the calculated GFR GFRAA in patients over70 years has not been determined. Clinical correlation isessential. Performed By: #### L 100.0100, L500.4050, L506.1000, L501.9520 ####[facility] [address] [place], [address] EST GFR - AA 56 mL/min Low >60 [facility] Comment on above: Result Comment: Afri can Maldivian GFR Calc Performed By: #### L 100.0100, L500.4050, L506.1000, L501.9520 ####[facility] [address] [place], [address] GAP 8 Normal 5-15 [facility] Comment on above: Performed By: #### L 100.0100, L500.4050, L506.1000, L501.9520 ####[facility] [address] [place], [address] GFR/1.73 sq M.predicted among non-blacks MDRD (S/P/Bld) [Vol rate/Area] 46 mL/min/{1.73_m2} Low >60 [facility] Comment on above: Result Comment: Non- GFR Calc Performed By: #### L 100.0100, L500.4050, L506.1000, L501.9520 ####[facility] [address] [place], [address] Globulin (S) [Mass/Vol] 3.7 g/dL Normal 2.2-4.2 [facility] Comment on above: Performed By: #### L 100.0100, L500.4050, L506.1000, L501.9520 ####[facility] [address] [place], [address] Glucose [Mass/Vol] 182 mg/dL High 74-106 [facility] Comment on above: Result Comment: Fast ing Glucose result greater than or equal to 126 mg/dLsuggests DIABETES MELLITUS per A.D.A. criteria. Performed By: #### L 100.0100, L500.4050, L506.1000, L501.9520 ####[facility] [address] [place], [address] Potassium [Moles/Vol] 4.7 mmol/L Normal 3.5-5.1 [facility] Comment on above: Performed By: #### L 100.0100, L500.4050, L506.1000, L501.9520 ####[facility] [address] [place], [address] Sodium [Moles/Vol] 138 mmol/L Normal 136-145 [facility] Comment on above: Performed By: #### L 100.0100, L500.4050, L506.1000, L501.9520 ####[facility] [address] [place], [address] T PROT 7.1 g/dL Normal 6.4-8.2 [facility] Comment on above: Performed By: #### L 100.0100, L500.4050, L506.1000, L501.9520 ####[facility] [address] [place], [address] Urea nitrogen [Mass/Vol] 16 mg/dL Normal 7-18 [facility] Comment on above: Performed By: #### L 100.0100, L500.4050, L506.1000, L501.9520 ####[facility] [address] [place], [address] Thyroid Stim Hormone (TSH)on 05-14-2024 TSH 0.468 uIU/mL Normal 0.358-3.740 [facility] Comment on above: Performed By: #### L 100.0100, L500.4050, L506.1000, L501.9520 ####[facility] [address] [place], [address] Vitamin D,25 Hydroxyon 05-14 Vitamin D 25-OH 56.7 ng/mL Normal [facility] Comment on above: Result Comment: Tawana min D 25(OH) Status Range Deficiency <20 ng/mL (50nmol/L) Insufficiency 20 - 30 ng/mL (50 - 75 nmol/L) Sufficiency 30 - 100 ng/mL (75 - 250 nmol/L) Toxicity >100 ng/mL (>250 nmol/L) Performed By: #### L 100.0100, L500.4050, L506.1000, L501.9520 ####[facility] [address] [place], [address] Re-Evaluation - PT (1)on Re-Evaluation - PT (1) Normal [facility] MR/BMS.BPon 03-26-2024 MR/BMS.BP Normal [facility] Inital Evaluation (1) - PTon 03-12-2024 Inital Evaluation (1) - PT Normal [facility] CNOVon 11-16-2023 CNOV Office Visit (PODIWS ) ARACELY HERNANDEZ ([id number]) 1945 F Date Time Provider Department 11/16/23 11:30 AM AGA GARCIA PODIWS During your visit today, we recorded the following information about you: Daniel Schulte, RN 11/16/2023 12:51 PM Signed Patient presents with: Left Foot - Established Patient, Follow Up, Pain, Diabetic Foot Check Right Foot - Established Patient, Follow Up, Diabetic Foot Check Patient presents for follow up diabetic foot care and due for diabetic foot exam and left big toe pain that has been intermittent over the last few months. BANDAR 10/24/22 Aga Garcia 11/16/2023 12:51 PM Signed [...] D deficiency Current Outpatient Medications Medication Sig clotrimazole-betametha sone (LOTRISONE) cream 1 APPLICATION 2 TIMES DAILY [...] GI Upset (more content not included)... Normal [facility] XR FOOT 3V AP/LAT/OBL LTon 0 11-16-2023 [...] plantar calcaneal spur. IMPRESSION: No acute abnormality Hip Hop Dance Instructor: GÓMEZ Transcribe Date/Time: Nov 21 2023 10:38A Dictated by : PATRICA WEST MD This examination was interpreted and the report reviewed and electronically signed by: PATRICA WEST MD on Nov 21 2023 10:40AM EST [id number] Normal [facility] Absolute lymphocyte countOrd ered By: Sumit Whipple on 11-07-2023 Lymphocytes Auto (Unsp spec) [#/Vol] 2.51 10*3/uL 0.83-4.51 [facility] Automated lymphocyte count a s percentage of total leukocytesOrdered By: Sumit Whipple on 11-07-2023 Lymphocytes/100 WBC Auto (Unsp spec) 32.1 % 19-41 [facility] Bacteria identified Cx Nom ( Wound)Ordered By: Sumit Whipple on 11-07-2023 [address]ound [address] Escherichia coli [facility] Wound Culture Enterococcus faecalis [facility] Basophil percentageOrdered B y: Sumit Whipple on 11-07-2023 Basophils/100 WBC (Bld) 0.3 % 0-1 [facility] Bilirubin [Mass/Vol] 0.40 mg/dL 0.20-1.00 [facility] Comment on above: For patients on eltr ombopag therapy, use of Dimension [place] TBIL is not recommended. Chloride [Moles/Vol] 102 mmol/L 98-107 [facility] Eosinophils/100 WBC (Bld) 3.4 % 0-5 [facility] Glucose [Mass/Vol] 187 mg/dL 74-106 [facility] Comment on above: Fasting Glucose resu lt greater than or equal to 126 mg/dL suggests DIABETES MELLITUS per A.D.A. criteria. Hemoglobin (Bld) [Mass/Vol] 13.0 g/dL 12.0-15.0 [facility] Monocytes/100 WBC (Bld) 7.8 % 0-10 [facility] Neutrophils (Bld) [#/Vol] 4.4 10*3/uL 2.0-7.7 [facility] Neutrophils/100 WBC (Bld) 56.1 % 47-70 [facility] Potassium [Moles/Vol] 4.0 mmol/L 3.5-5.1 [facility] Protein [Mass/Vol] 6.6 g/dL 6.4-8.2 [facility] Sodium [Moles/Vol] 135 mmol/L 136-145 [facility] WBC (Bld) [#/Vol] 7.8 10*3/uL 4.4-11.0 [facility] Determination of erythrocyte mean corpuscular volume (MCV)Ordered By: Sumit Whipple on 11-07-2023 MCV (RBC) [Entitic vol] 83.2 fL 81-99 [facility] Erythrocyte distribution wid th ratioOrdered By: Sumit Whipple on 11-07-2023 Erythrocyte distribution width (RBC) [Ratio] 14.3 % 11.6-14.6 [facility] Erythrocyte distribution wid th standard deviationOrdered By: Sumit Whipple on 11-07-2023 Erythrocyte distribution width (RBC) [Entitic vol] 43.2 fL 35.1-43.9 [facility] Gram stain for investigation of transfusion reactionOrdered By: Sumit Whipple on 11-07-2023 Microscopic observation Gram stain Nom (Unsp spec) [facility] Hematocrit Auto (Bld) [Volum e fraction]Ordered By: Sumit Whipple on 11-07-2023 Hematocrit (Bld) [Volume fraction] 40.5 % 37-47 [facility] Immature granulocytes/100 WB C Auto (Bld)Ordered By: Sumit Whipple on 11-07-2023 Immature granulocytes/100 WBC (Bld) 0.300 % 0.0-0.9 [facility] Comment on above: IG% - Immature Granu locytes (promyelocytes, myelocytes and metamyelocytes) > 1% indicates that a LEFT SHIFT is Present. Laboratory - Chemistry and C hemistry - challengeOrdered By: Sumit Whipple on 11-07-2023 Albumin/Globulin [Mass ratio] 0.7 {ratio} 0.9-2.4 [facility] ALP [Catalytic activity/Vol] 76 U/L 45-117 [facility] ALT [Catalytic activity/Vol] 21 U/L 13-56 [facility] CO2 [Moles/Vol] 28.0 mmol/L 21.0-32.0 [facility] Globulin (S) [Mass/Vol] 3.8 g/dL 2.2-4.2 [facility] Urea nitrogen/Creatinine [Mass ratio] 14.6 mg/mg 10-20 [facility] Laboratory - Hematology and Cell countsOrdered By: Sumit Whipple on 11-07-2023 MCH (RBC) [Entitic mass] 26.7 pg 27.0-32.0 [facility] MCHC (RBC) [Mass/Vol] 32.1 g/dL 32-36 [facility] Nucleated RBC/100 WBC (Bld) [Ratio] 0 % 0-5 [facility] Platelet mean volume (Bld) [Entitic vol] 9.9 fL 6.2-12.0 [facility] Platelets (Bld) [#/Vol] 303 10*3/uL 150-450 [facility] No Panel InformationOrdered By: Sumit Whipple on 11-07-2023 Methicillin-Resist S.aureus DNA PCR Negative Negative [facility] Estimated GFR (MDRD) Amer 79 mL/min >60 [facility] Comment on above: GFR Calc Estimated GFR (MDRD) Non-Af Amer 65 mL/min >60 [facility] Comment on above: Non- GFR Calc Vitamin D 25-Hydroxy 57.4 ng/mL [facility] Comment on above: Vitamin D 25(OH) Sta tus Range Deficiency <20 ng/mL (50nmol/L) Insufficiency 20 - 30 ng/mL (50 - 75 nmol/L) Sufficiency 30 - 100 ng/mL (75 - 250 nmol/L) Toxicity >100 ng/mL (>250 nmol/L) RBC Auto (Bld) [#/Vol]Ordere d By: Sumit Whipple on 11-07-2023 RBC (Bld) [#/Vol] 4.87 10*6/uL 4.2-5.4 [facility] Serum or plasma calcium dot urement (mass/volume)Ordered By: Sumit hWipple on 11-07-2023 Calcium [Mass/Vol] 9.1 mg/dL 8.5-10.1 [facility] Serum or plasma creatinine m easurement (mass/volume)Ordered By: Sumit Whipple on 11-07-2023 Creatinine [Mass/Vol] 0.89 mg/dL 0.55-1.02 [facility] Comment on above: The validity of the calculated GFR & GFRAA in patients over 70 years has not been determined. Clinical correlation is essential. Serum or plasma thyroid stim ulating hormone (TSH) measurement (units/volume)Ordered By: Sumit Whipple on 11-07-2023 TSH Qn 7.89 uIU/mL 0.358-3.74 [facility] Serum or plasma urea nitroge n measurement (mass/volume)Ordered By: Sumit Whipple on 11-07-2023 Urea nitrogen [Mass/Vol] 13 mg/dL 7-18 [facility] Staphylococcus aureus DNA de tection by probe and target amplification methodOrdered By: Sumit Whipple on 11-07-2023 S. aureus DNA ZUNILDA+probe Ql (Unsp spec) Negative Negative [facility] Thin prep Papanicolaou smear with manual screeningOrdered By: Sumit Whipple on 11-07-2023 Thin prep Papanicolaou smear with manual screening 2.8 g/dL 3.2-5.0 [facility] Thin prep Papanicolaou smear with manual screening 12 U/L 15-37 [facility] Thin prep Papanicolaou smear with manual screening 5 5-15 [facility] Absolute lymphocyte countOrd ered By: Sumit Whipple on 07-17-2023 Lymphocytes Auto (Unsp spec) [#/Vol] 2.12 10*3/uL 0.83-4.51 [facility] Basophil percentageOrdered B y: Sumit Whipple on 07-17-2023 Basophils/100 WBC (Bld) 0.6 % 0-1 [facility] Bilirubin [Mass/Vol] 0.50 mg/dL 0.20-1.00 [facility] Comment on above: For patients on eltr ombopag therapy, use of Dimension [place] TBIL is not recommended. Chloride [Moles/Vol] 101 mmol/L 98-107 [facility] Eosinophils/100 WBC (Bld) 3.0 % 0-5 [facility] Glucose [Mass/Vol] 136 mg/dL 74-106 [facility] Comment on above: Fasting Glucose resu lt greater than or equal to 126 mg/dL suggests DIABETES MELLITUS per A.D.A. criteria. Neutrophils (Bld) [#/Vol] 3.6 10*3/uL 2.0-7.7 [facility] Neutrophils/100 WBC (Bld) 55.4 % 47-70 [facility] Potassium [Moles/Vol] 4.5 mmol/L 3.5-5.1 [facility] Protein [Mass/Vol] 6.5 g/dL 6.4-8.2 [facility] Sodium [Moles/Vol] 134 mmol/L 136-145 [facility] WBC (Bld) [#/Vol] 6.4 10*3/uL 4.4-11.0 [facility] Blood erythrocytes count (nu mber/volume)Ordered By: Sumit Whipple on 07-17-2023 RBC (Bld) [#/Vol] 4.51 10*6/uL 4.2-5.4 [facility] Blood hemoglobin measurement (mass/volume)Ordered By: Sumit Whipple on 07-17-2023 Hemoglobin (Bld) [Mass/Vol] 12.2 g/dL 12.0-15.0 [facility] Blood lymphocytes/100 leukoc ytesOrdered By: Sumit Whipple on 07-17-2023 Lymphocytes/100 WBC (Bld) 33.1 % 19-41 [facility] Blood monocytes/100 leukocyt esOrdered By: Sumit Whipple on 07-17-2023 Monocytes/100 WBC (Bld) 7.6 % 0-10 [facility] Blood platelet mean volumeOr dered By: Sumit Whipple on 07-17-2023 Platelet mean volume (Bld) [Entitic vol] 9.5 fL 6.2-12.0 [facility] Culture, urineOrdered By: Desmond Whipple on 07-17-2023 Bacteria identified Cx Nom (U) Culture exhibits no growth. [facility] Bacteria identified Cx Nom (U) Culture exhibits no growth. [facility] Determination of erythrocyte mean corpuscular volume (MCV)Ordered By: Sumit Whipple on 07-17-2023 MCV (RBC) [Entitic vol] 85.1 fL 81-99 [facility] Hematocrit Auto (Bld) [Volum e fraction]Ordered By: Sumit Whipple on 07-17-2023 Hematocrit (Bld) [Volume fraction] 38.4 % 37-47 [facility] Laboratory - Chemistry and C hemistry - challengeOrdered By: Sumit Whipple on 07-17-2023 ALP [Catalytic activity/Vol] 55 U/L 45-117 [facility] ALT [Catalytic activity/Vol] 26 U/L 13-56 [facility] CO2 [Moles/Vol] 28.0 mmol/L 21.0-32.0 [facility] Globulin (S) [Mass/Vol] 3.2 g/dL 2.2-4.2 [facility] Urea nitrogen/Creatinine [Mass ratio] 13.2 mg/mg 10-20 [facility] Laboratory - Hematology and Cell countsOrdered By: Sumit Whipple on 07-17-2023 Erythrocyte distribution width (RBC) [Entitic vol] 44.7 fL 35.1-43.9 [facility] Erythrocyte distribution width (RBC) [Ratio] 14.4 % 11.6-14.6 [facility] Immature granulocytes/100 WBC (Bld) 0.300 % 0.0-0.9 [facility] Comment on above: IG% - Immature Granu locytes (promyelocytes, myelocytes and metamyelocytes) > 1% indicates that a LEFT SHIFT is Present. MCH (RBC) [Entitic mass] 27.1 pg 27.0-32.0 [facility] Nucleated RBC/100 WBC (Bld) [Ratio] 0 % 0-5 [facility] MCHC Auto (RBC) [Mass/Vol]Or dered By: Sumit Whipple on 07-17-2023 MCHC (RBC) [Mass/Vol] 31.8 g/dL 32-36 [facility] No Panel InformationOrdered By: Sumit Whipple on 07-17-2023 Estimated GFR (MDRD) Amer 70 mL/min >60 [facility] Comment on above: GFR Calc Estimated GFR (MDRD) Non-Af Amer 58 mL/min >60 [facility] Comment on above: Non- GFR Calc Platelets bldOrdered By: Sumit Whipple on 07-17-2023 Platelets (Bld) [#/Vol] 307 10*3/uL 150-450 [facility] Serum or plasma albumin dot urement (mass/volume)Ordered By: Sumit Whipple on 07-17-2023 Albumin [Mass/Vol] 3.3 g/dL 3.2-5.0 [facility] Serum or plasma albumin/glob ulin mass ratioOrdered By: Sumit Whipple on 07-17-2023 Albumin/Globulin [Mass ratio] 1.0 {ratio} 0.9-2.4 [facility] Serum or plasma calcium dot urement (mass/volume)Ordered By: Sumit Whipple on 07-17-2023 Calcium [Mass/Vol] 8.9 mg/dL 8.5-10.1 [facility] Serum or plasma creatinine m easurement (mass/volume)Ordered By: Sumit Whipple on 07-17-2023 Creatinine [Mass/Vol] 0.99 mg/dL 0.55-1.02 [facility] Comment on above: The validity of the calculated GFR & GFRAA in patients over 70 years has not been determined. Clinical correlation is essential. Serum or plasma urea nitroge n measurement (mass/volume)Ordered By: Sumit Whipple on 07-17-2023 Urea nitrogen [Mass/Vol] 13 mg/dL 7-18 [facility] Thin prep Papanicolaou smear with manual screeningOrdered By: Sumit Whipple on 07-17-2023 Thin prep Papanicolaou smear with manual screening 16 U/L 15-37 [facility] Thin prep Papanicolaou smear with manual screening 5 5-15 [facility] Absolute lymphocyte countOrd ered By: Sumit Whipple on 05-09-2023 Lymphocytes Auto (Unsp spec) [#/Vol] 1.86 10*3/uL 0.83-4.51 [facility] Basophil percentageOrdered B y: Sumit Whipple on 05-09-2023 Basophils/100 WBC (Bld) 0.5 % 0-1 [facility] Bilirubin [Mass/Vol] 0.40 mg/dL 0.20-1.00 [facility] Comment on above: For patients on eltr ombopag therapy, use of Dimension [place] TBIL is not recommended. Chloride [Moles/Vol] 105 mmol/L 98-107 [facility] Eosinophils/100 WBC (Bld) 2.9 % 0-5 [facility] Glucose [Mass/Vol] 113 mg/dL 74-106 [facility] Comment on above: Fasting Glucose resu lt from 100 to 125 mg/dL suggests IMPAIRED HOMEOSTASIS per A.D.A. criteria. Neutrophils (Bld) [#/Vol] 3.4 10*3/uL 2.0-7.7 [facility] Neutrophils/100 WBC (Bld) 57.3 % 47-70 [facility] Potassium [Moles/Vol] 4.5 mmol/L 3.5-5.1 [facility] Protein [Mass/Vol] 6.6 g/dL 6.4-8.2 [facility] Sodium [Moles/Vol] 137 mmol/L 136-145 [facility] WBC (Bld) [#/Vol] 5.9 10*3/uL 4.4-11.0 [facility] Blood erythrocytes count (nu mber/volume)Ordered By: Sumit Whipple on 05-09-2023 RBC (Bld) [#/Vol] 4.27 10*6/uL 4.2-5.4 [facility] Blood hemoglobin measurement (mass/volume)Ordered By: Sumit Whipple on 05-09-2023 Hemoglobin (Bld) [Mass/Vol] 12.0 g/dL 12.0-15.0 [facility] Blood lymphocytes/100 leukoc ytesOrdered By: Sumit Whipple on 05-09-2023 Lymphocytes/100 WBC (Bld) 31.5 % 19-41 [facility] Blood monocytes/100 leukocyt esOrdered By: Sumit Whipple on 05-09-2023 Monocytes/100 WBC (Bld) 7.6 % 0-10 [facility] Blood platelet mean volumeOr dered By: Sumit Whipple on 05-09-2023 Platelet mean volume (Bld) [Entitic vol] 9.5 fL 6.2-12.0 [facility] Determination of erythrocyte mean corpuscular volume (MCV)Ordered By: Sumit Whipple on 05-09-2023 MCV (RBC) [Entitic vol] 84.5 fL 81-99 [facility] Hematocrit Auto (Bld) [Volum e fraction]Ordered By: Sumit Whipple on 05-09-2023 Hematocrit (Bld) [Volume fraction] 36.1 % 37-47 [facility] Laboratory - Chemistry and C hemistry - challengeOrdered By: Sumit Whipple on 05-09-2023 ALP [Catalytic activity/Vol] 51 U/L 45-117 [facility] ALT [Catalytic activity/Vol] 32 U/L 13-56 [facility] CO2 [Moles/Vol] 27.0 mmol/L 21.0-32.0 [facility] Globulin (S) [Mass/Vol] 3.2 g/dL 2.2-4.2 [facility] Urea nitrogen/Creatinine [Mass ratio] 25.5 mg/mg 10-20 [facility] Laboratory - Hematology and Cell countsOrdered By: Sumit Whipple on 05-09-2023 Erythrocyte distribution width (RBC) [Entitic vol] 45.7 fL 35.1-43.9 [facility] Erythrocyte distribution width (RBC) [Ratio] 14.8 % 11.6-14.6 [facility] Immature granulocytes/100 WBC (Bld) 0.200 % 0.0-0.9 [facility] Comment on above: IG% - Immature Granu locytes (promyelocytes, myelocytes and metamyelocytes) > 1% indicates that a LEFT SHIFT is Present. MCH (RBC) [Entitic mass] 28.1 pg 27.0-32.0 [facility] Nucleated RBC/100 WBC (Bld) [Ratio] 0 % 0-5 [facility] MCHC Auto (RBC) [Mass/Vol]Or dered By: Sumit Whipple on 05-09-2023 MCHC (RBC) [Mass/Vol] 33.2 g/dL 32-36 [facility] No Panel InformationOrdered By: Sumit Whipple on 05-09-2023 Estimated GFR (MDRD) Amer 71 mL/min >60 [facility] Comment on above: GFR Calc Estimated GFR (MDRD) Non-Af Amer 58 mL/min >60 [facility] Comment on above: Non- GFR Calc Thyroid Stimulating Hormone (TSH) 3.16 uIU/mL 0.358-3.74 [facility] Vitamin D 25-Hydroxy 56.1 ng/mL [facility] Comment on above: Vitamin D 25(OH) Sta tus Range Deficiency <20 ng/mL (50nmol/L) Insufficiency 20 - 30 ng/mL (50 - 75 nmol/L) Sufficiency 30 - 100 ng/mL (75 - 250 nmol/L) Toxicity >100 ng/mL (>250 nmol/L) Platelets bldOrdered By: Sumit Whipple on 05-09-2023 Platelets (Bld) [#/Vol] 298 10*3/uL 150-450 [facility] Serum or plasma albumin dot urement (mass/volume)Ordered By: Sumit Whipple on 05-09-2023 Albumin [Mass/Vol] 3.4 g/dL 3.2-5.0 [facility] Serum or plasma albumin/glob ulin mass ratioOrdered By: Sumit Whipple on 05-09-2023 Albumin/Globulin [Mass ratio] 1.1 {ratio} 0.9-2.4 [facility] Serum or plasma calcium dot urement (mass/volume)Ordered By: Sumit Whipple on 05-09-2023 Calcium [Mass/Vol] 9.1 mg/dL 8.5-10.1 [facility] Serum or plasma creatinine m easurement (mass/volume)Ordered By: Sumit Whipple on 05-09-2023 Creatinine [Mass/Vol] 0.98 mg/dL 0.55-1.02 [facility] Comment on above: The validity of the calculated GFR & GFRAA in patients over 70 years has not been determined. Clinical correlation is essential. Serum or plasma urea nitroge n measurement (mass/volume)Ordered By: Sumit Whipple on 05-09-2023 Urea nitrogen [Mass/Vol] 25 mg/dL 7-18 [facility] Thin prep Papanicolaou smear with manual screeningOrdered By: Sumit Whipple on 05-09-2023 Thin prep Papanicolaou smear with manual screening 27 U/L 15-37 [facility] Thin prep Papanicolaou smear with manual screening 5 5-15 [facility] Absolute lymphocyte countOrd ered By: Sumit Whipple on 04-18-2023 Lymphocytes Auto (Unsp spec) [#/Vol] 2.57 10*3/uL 0.83-4.51 [facility] Basophil percentageOrdered B y: Sumit Whipple on 04-18-2023 Basophils/100 WBC (Bld) 0.4 % 0-1 [facility] Chloride [Moles/Vol] 103 mmol/L 98-107 [facility] Eosinophils/100 WBC (Bld) 3.5 % 0-5 [facility] Glucose [Mass/Vol] 81 mg/dL 74-106 [facility] Neutrophils (Bld) [#/Vol] 4.0 10*3/uL 2.0-7.7 [facility] Neutrophils/100 WBC (Bld) 53.7 % 47-70 [facility] Potassium [Moles/Vol] 4.6 mmol/L 3.5-5.1 [facility] Sodium [Moles/Vol] 136 mmol/L 136-145 [facility] WBC (Bld) [#/Vol] 7.4 10*3/uL 4.4-11.0 [facility] Blood erythrocytes count (nu mber/volume)Ordered By: Sumit Whipple on 04-18-2023 RBC (Bld) [#/Vol] 4.96 10*6/uL 4.2-5.4 [facility] Blood hemoglobin measurement (mass/volume)Ordered By: Sumit Whipple on 04-18-2023 Hemoglobin (Bld) [Mass/Vol] 13.2 g/dL 12.0-15.0 [facility] Blood lymphocytes/100 leukoc ytesOrdered By: Sumit Whipple on 04-18-2023 Lymphocytes/100 WBC (Bld) 34.6 % 19-41 [facility] Blood monocytes/100 leukocyt esOrdered By: Sumit Whipple on 04-18-2023 Monocytes/100 WBC (Bld) 7.5 % 0-10 [facility] Blood platelet mean volumeOr dered By: Sumit Whipple on 04-18-2023 Platelet mean volume (Bld) [Entitic vol] 10.1 fL 6.2-12.0 [facility] Determination of erythrocyte mean corpuscular volume (MCV)Ordered By: Sumit Whipple on 04-18-2023 MCV (RBC) [Entitic vol] 85.3 fL 81-99 [facility] Hematocrit Auto (Bld) [Volum e fraction]Ordered By: Sumit Whipple on 04-18-2023 Hematocrit (Bld) [Volume fraction] 42.3 % 37-47 [facility] Laboratory - Chemistry and C hemistry - challengeOrdered By: Sumit Whipple on 04-18-2023 CO2 [Moles/Vol] 28.0 mmol/L 21.0-32.0 [facility] Urea nitrogen/Creatinine [Mass ratio] 19.0 mg/mg 10-20 [facility] Laboratory - Hematology and Cell countsOrdered By: Sumit Whipple on 04-18-2023 Erythrocyte distribution width (RBC) [Entitic vol] 44.7 fL 35.1-43.9 [facility] Erythrocyte distribution width (RBC) [Ratio] 14.6 % 11.6-14.6 [facility] Immature granulocytes/100 WBC (Bld) 0.300 % 0.0-0.9 [facility] Comment on above: IG% - Immature Granu locytes (promyelocytes, myelocytes and metamyelocytes) > 1% indicates that a LEFT SHIFT is Present. MCH (RBC) [Entitic mass] 26.6 pg 27.0-32.0 [facility] Nucleated RBC/100 WBC (Bld) [Ratio] 0 % 0-5 [facility] MCHC Auto (RBC) [Mass/Vol]Or dered By: Sumit Whipple on 04-18-2023 MCHC (RBC) [Mass/Vol] 31.2 g/dL 32-36 [facility] No Panel InformationOrdered By: Sumit Whipple on 04-18-2023 Estimated GFR (MDRD) Amer 69 mL/min >60 [facility] Comment on above: GFR Calc Estimated GFR (MDRD) Non-Af Amer 57 mL/min >60 [facility] Comment on above: Non- GFR Calc Thyroid Stimulating Hormone (TSH) 0.67 uIU/mL 0.358-3.74 [facility] Platelets bldOrdered By: Sumit Whipple on 04-18-2023 Platelets (Bld) [#/Vol] 337 10*3/uL 150-450 [facility] Serum or plasma C reactive p rotein measurement (mass/volume)Ordered By: Sumit Whipple on 04-18-2023 CRP [Mass/Vol] mg/L 0.0-3.0 [facility] Comment on above: C-Reactive Protein ( CRP) provides useful information for thediagnosis, therapy and monitoring of inflammatory processesand associated diseases. For the evaluation of Relative Riskfor Cardiovascular Disease, a High Sensitivity CRP (HSCRP)should be ordered. Serum or plasma calcium dot urement (mass/volume)Ordered By: Sumit Whipple on 04-18-2023 Calcium [Mass/Vol] 9.5 mg/dL 8.5-10.1 [facility] Serum or plasma creatinine m easurement (mass/volume)Ordered By: Sumit Whipple on 04-18-2023 Creatinine [Mass/Vol] 1.00 mg/dL 0.55-1.02 [facility] Comment on above: The validity of the calculated GFR & GFRAA in patients over 70 years has not been determined. Clinical correlation is essential. Serum or plasma urea nitroge n measurement (mass/volume)Ordered By: Sumit Whipple on 04-18-2023 Urea nitrogen [Mass/Vol] 19 mg/dL 7-18 [facility] Thin prep Papanicolaou smear with manual screeningOrdered By: Sumit Whipple on 04-18-2023 Thin prep Papanicolaou smear with manual screening 5 5-15 [facility] Absolute lymphocyte countOrd ered By: Dr. Whipple on 11-01-2022 Lymphocytes Auto (Unsp spec) [#/Vol] 1.59 10*3/uL 0.83-4.51 [facility] Basophil percentageOrdered B y: Dr. Whipple on 11-01-2022 Basophils/100 WBC (Bld) 0.5 % 0-1 [facility] Bilirubin [Mass/Vol] 0.30 mg/dL 0.20-1.00 [facility] Comment on above: For patients on eltr ombopag therapy, use of Dimension [place] TBIL is not recommended. Chloride [Moles/Vol] 105 mmol/L 98-107 [facility] Eosinophils/100 WBC (Bld) 3.8 % 0-5 [facility] Glucose [Mass/Vol] 115 mg/dL 74-106 [facility] Comment on above: Fasting Glucose resu lt from 100 to 125 mg/dL suggests IMPAIRED HOMEOSTASIS per A.D.A. criteria. Neutrophils (Bld) [#/Vol] 4.2 10*3/uL 2.0-7.7 [facility] Neutrophils/100 WBC (Bld) 63.7 % 47-70 [facility] Potassium [Moles/Vol] 4.5 mmol/L 3.5-5.1 [facility] Protein [Mass/Vol] 6.8 g/dL 6.4-8.2 [facility] Sodium [Moles/Vol] 139 mmol/L 136-145 [facility] WBC (Bld) [#/Vol] 6.5 10*3/uL 4.4-11.0 [facility] Blood erythrocytes count (nu mber/volume)Ordered By: Dr. Whipple on 11-01-2022 RBC (Bld) [#/Vol] 4.69 10*6/uL 4.2-5.4 [facility] Blood hemoglobin measurement (mass/volume)Ordered By: Dr. Whipple on 11-01-2022 Hemoglobin (Bld) [Mass/Vol] 12.8 g/dL 12.0-15.0 [facility] Blood lymphocytes/100 leukoc ytesOrdered By: Dr. Whipple on 11-01-2022 Lymphocytes/100 WBC (Bld) 24.4 % 19-41 [facility] Blood monocytes/100 leukocyt esOrdered By: Dr. Whipple on 11-01-2022 Monocytes/100 WBC (Bld) 7.1 % 0-10 [facility] Blood platelet mean volumeOr dered By: Dr. Whipple on 11-01-2022 Platelet mean volume (Bld) [Entitic vol] 10.5 fL 6.2-12.0 [facility] Determination of erythrocyte mean corpuscular volume (MCV)Ordered By: Dr. Whipple on 11-01-2022 MCV (RBC) [Entitic vol] 85.3 fL 81-99 [facility] Hematocrit Auto (Bld) [Volum e fraction]Ordered By: Dr. Whipple on 11-01-2022 Hematocrit (Bld) [Volume fraction] 40.0 % 37-47 [facility] Laboratory - Chemistry and C hemistry - challengeOrdered By: Dr. Whipple on 11-01-2022 ALP [Catalytic activity/Vol] 59 U/L 45-117 [facility] ALT [Catalytic activity/Vol] 24 U/L 13-56 [facility] CO2 [Moles/Vol] 29.0 mmol/L 21.0-32.0 [facility] Globulin (S) [Mass/Vol] 3.3 g/dL 2.2-4.2 [facility] Urea nitrogen/Creatinine [Mass ratio] 25.2 mg/mg 10-20 [facility] Laboratory - Hematology and Cell countsOrdered By: Dr. Whipple on 11-01-2022 Erythrocyte distribution width (RBC) [Entitic vol] 44.9 fL 35.1-43.9 [facility] Erythrocyte distribution width (RBC) [Ratio] 14.6 % 11.6-14.6 [facility] Immature granulocytes/100 WBC (Bld) 0.500 % 0.0-0.9 [facility] Comment on above: IG% - Immature Granu locytes (promyelocytes, myelocytes and metamyelocytes) > 1% indicates that a LEFT SHIFT is Present. MCH (RBC) [Entitic mass] 27.3 pg 27.0-32.0 [facility] Nucleated RBC/100 WBC (Bld) [Ratio] 0 % 0-5 [facility] MCHC Auto (RBC) [Mass/Vol]Or dered By: Dr. Whipple on 11-01-2022 MCHC (RBC) [Mass/Vol] 32.0 g/dL 32-36 [facility] No Panel InformationOrdered By: Dr. Whipple on 11-01-2022 Estimated GFR (MDRD) Amer 77 mL/min >60 [facility] Comment on above: GFR Calc Estimated GFR (MDRD) Non-Af Amer 64 mL/min >60 [facility] Comment on above: Non- GFR Calc Thyroid Stimulating Hormone (TSH) 1.16 uIU/mL 0.358-3.74 [facility] Vitamin D 25-Hydroxy 73.4 ng/mL [facility] Comment on above: Vitamin D 25(OH) Sta tus Range Deficiency <20 ng/mL (50nmol/L) Insufficiency 20 - 30 ng/mL (50 - 75 nmol/L) Sufficiency 30 - 100 ng/mL (75 - 250 nmol/L) Toxicity >100 ng/mL (>250 nmol/L) Platelets bldOrdered By: Dr. Whipple on 11-01-2022 Platelets (Bld) [#/Vol] 297 10*3/uL 150-450 [facility] Serum or plasma albumin dot urement (mass/volume)Ordered By: Dr. Whipple on 11-01-2022 Albumin [Mass/Vol] 3.5 g/dL 3.2-5.0 [facility] Serum or plasma albumin/glob ulin mass ratioOrdered By: Dr. Whipple on 11-01-2022 Albumin/Globulin [Mass ratio] 1.1 {ratio} 0.9-2.4 [facility] Serum or plasma calcium dot urement (mass/volume)Ordered By: Dr. Whipple on 11-01-2022 Calcium [Mass/Vol] 9.7 mg/dL 8.5-10.1 [facility] Serum or plasma creatinine m easurement (mass/volume)Ordered By: Dr. Whipple on 11-01-2022 Creatinine [Mass/Vol] 0.91 mg/dL 0.55-1.02 [facility] Comment on above: The validity of the calculated GFR & GFRAA in patients over 70 years has not been determined. Clinical correlation is essential. Serum or plasma urea nitroge n measurement (mass/volume)Ordered By: Dr. Whipple on 11-01-2022 Urea nitrogen [Mass/Vol] 23 mg/dL 7-18 [facility] Thin prep Papanicolaou smear with manual screeningOrdered By: Dr. Whipple on 11-01-2022 Thin prep Papanicolaou smear with manual screening 18 U/L 15-37 [facility] Thin prep Papanicolaou smear with manual screening 5 5-15 [facility] XR FOOT GENERAL 3V AP/LAT/OB L BILATERALon 10-24-2022 [facility] Absolute lymphocyte counton 05-04-2022 Lymphocytes Auto (Unsp spec) [#/Vol] 1.98 10*3/uL 0.83-4.51 [facility] Work Phone: Basophil percentageon 2021 Basophils/100 WBC (Bld) 0.6 % 0-1 [facility] Work Phone: Bilirubin [Mass/Vol] 0.30 mg/dL 0.20-1.00 [facility] Work Phone: [phone] Comment on above: For patients on eltr ombopag therapy, use of Dimension [place] TBIL is not recommended. Chloride [Moles/Vol] 104 mmol/L 98-107 [facility] Work Phone: [phone] Eosinophils/100 WBC (Bld) 4.4 % 0-5 [facility] Work Phone: [phone] Glucose [Mass/Vol] 132 mg/dL 74-106 [facility] Work Phone: [phone] Comment on above: Fasting Glucose resu lt greater than or equal to 126 mg/dL suggests DIABETES MELLITUS per A.D.A. criteria. Neutrophils (Bld) [#/Vol] 3.9 10*3/uL 2.0-7.7 [facility] Work Phone: [phone] Neutrophils/100 WBC (Bld) 57.7 % 47-70 [facility] Work Phone: [phone] Potassium [Moles/Vol] 4.6 mmol/L 3.5-5.1 [facility] Work Phone: [phone] Protein [Mass/Vol] 7.2 g/dL 6.4-8.2 [facility] Work Phone: [phone] Sodium [Moles/Vol] 140 mmol/L 136-145 [facility] Work Phone: [phone] WBC (Bld) [#/Vol] 6.7 10*3/uL 4.4-11.0 [facility] Work Phone: [phone] Blood erythrocytes count (nu mber/volume)on 05-04-2022 RBC (Bld) [#/Vol] 4.88 10*6/uL 4.2-5.4 [facility] Work Phone: [phone] Blood hemoglobin measurement (mass/volume)on 05-04-2022 Hemoglobin (Bld) [Mass/Vol] 13.4 g/dL 12.0-15.0 [facility] Work Phone: Blood lymphocytes/100 leukoc yteson 05-04-2022 Lymphocytes/100 WBC (Bld) 29.7 % 19-41 [facility] Work Phone: Blood monocytes/100 leukocyt eson 05-04-2022 Monocytes/100 WBC (Bld) 7.4 % 0-10 [facility] Work Phone: Blood platelet mean volumeon 05-04-2022 Platelet mean volume (Bld) [Entitic vol] 10.0 fL 6.2-12.0 [facility] Work Phone: Determination of erythrocyte mean corpuscular volume (MCV)on 05-04-2022 MCV (RBC) [Entitic vol] 84.8 fL 81-99 [facility] Work Phone: Hematocrit Auto (Bld) [Volum e fraction]on 05-04-2022 Hematocrit (Bld) [Volume fraction] 41.4 % 37-47 [facility] Work Phone: Laboratory - Chemistry and C hemistry - challengeon 05-04-2022 ALP [Catalytic activity/Vol] 58 U/L 45-117 [facility] Work Phone: ALT [Catalytic activity/Vol] 29 U/L 13-56 [facility] Work Phone: CO2 [Moles/Vol] 27.0 mmol/L 21.0-32.0 [facility] Work Phone: Globulin (S) [Mass/Vol] 4.0 g/dL 2.2-4.2 [facility] Work Phone: Urea nitrogen/Creatinine [Mass ratio] 26.5 mg/mg 10-20 [facility] Work Phone: Laboratory - Hematology and Cell countson 05-04-2022 Erythrocyte distribution width (RBC) [Entitic vol] 44.0 fL 35.1-43.9 [facility] Work Phone: Erythrocyte distribution width (RBC) [Ratio] 14.4 % 11.6-14.6 [facility] Work Phone: Immature granulocytes/100 WBC (Bld) 0.200 % 0.0-0.9 [facility] Work Phone: Comment on above: IG% - Immature Granu locytes (promyelocytes, myelocytes and metamyelocytes) > 1% indicates that a LEFT SHIFT is Present. MCH (RBC) [Entitic mass] 27.5 pg 27.0-32.0 [facility] Work Phone: Nucleated RBC/100 WBC (Bld) [Ratio] 0 % 0-5 [facility] Work Phone: MCHC Auto (RBC) [Mass/Vol]on 05-04-2022 MCHC (RBC) [Mass/Vol] 32.4 g/dL 32-36 [facility] Work Phone: No Panel Informationon 05-04 Estimated GFR (MDRD) Amer 71 mL/min >60 [facility] Work Phone: Comment on above: GFR Calc Estimated GFR (MDRD) Non-Af Amer 59 mL/min >60 [facility] Work Phone: Comment on above: Non- GFR Calc Thyroid Stimulating Hormone (TSH) 1.30 uIU/mL 0.358-3.74 [facility] Work Phone: Vitamin D 25-Hydroxy 68.2 ng/mL [facility] Work Phone: Comment on above: Vitamin D 25(OH) Sta tus Range Deficiency <20 ng/mL (50nmol/L) Insufficiency 20 - 30 ng/mL (50 - 75 nmol/L) Sufficiency 30 - 100 ng/mL (75 - 250 nmol/L) Toxicity >100 ng/mL (>250 nmol/L) Platelets bldon 05-04-2022 Platelets (Bld) [#/Vol] 351 10*3/uL 150-450 [facility] Work Phone: Serum or plasma albumin dot urement (mass/volume)on 05-04-2022 Albumin [Mass/Vol] 3.2 g/dL 3.2-5.0 [facility] Work Phone: Serum or plasma albumin/glob ulin mass ratioon 05-04-2022 Albumin/Globulin [Mass ratio] 0.8 {ratio} 0.9-2.4 [facility] Work Phone: Serum or plasma calcium dot urement (mass/volume)on 05-04-2022 Calcium [Mass/Vol] 9.6 mg/dL 8.5-10.1 [facility] Work Phone: Serum or plasma creatinine m easurement (mass/volume)on 05-04-2022 Creatinine [Mass/Vol] 0.98 mg/dL 0.55-1.02 [facility] Work Phone: Comment on above: The validity of the calculated GFR & GFRAA in patients over 70 years has not been determined. Clinical correlation is essential. Serum or plasma urea nitroge n measurement (mass/volume)on 05-04-2022 Urea nitrogen [Mass/Vol] 26 mg/dL 7-18 [facility] Work Phone: Thin prep Papanicolaou smear with manual screeningon 05-04-2022 Thin prep Papanicolaou smear with manual screening 15 U/L 15-37 [facility] Work Phone: Thin prep Papanicolaou smear with manual screening 9 5-15 [facility] Work Phone: Basophil percentageon 2021 Chloride [Moles/Vol] 99 mmol/L 98-107 [facility] Work Phone: Glucose [Mass/Vol] 133 mg/dL 74-106 [facility] Work Phone: Comment on above: Fasting Glucose resu lt greater than or equal to 126 mg/dL suggests DIABETES MELLITUS per A.D.A. criteria. Potassium [Moles/Vol] 4.3 mmol/L 3.5-5.1 [facility] Work Phone: Sodium [Moles/Vol] 133 mmol/L 136-145 [facility] Work Phone: Laboratory - Chemistry and C hemistry - challengeon 02-21-2022 CO2 [Moles/Vol] 27.0 mmol/L 21.0-32.0 [facility] Work Phone: Urea nitrogen/Creatinine [Mass ratio] 26.3 mg/mg 10-20 [facility] Work Phone: No Panel Informationon 02-21 Estimated GFR (MDRD) Amer 77 mL/min >60 [facility] Work Phone: Comment on above: GFR Calc Estimated GFR (MDRD) Non-Af Amer 64 mL/min >60 [facility] Work Phone: Comment on above: Non- GFR Calc Serum or plasma calcium dot urement (mass/volume)on 02-21-2022 Calcium [Mass/Vol] 9.8 mg/dL 8.5-10.1 [facility] Work Phone: Serum or plasma creatinine m easurement (mass/volume)on 02-21-2022 Creatinine [Mass/Vol] 0.91 mg/dL 0.55-1.02 [facility] Work Phone: Comment on above: The validity of the calculated GFR & GFRAA in patients over 70 years has not been determined. Clinical correlation is essential. Serum or plasma urea nitroge n measurement (mass/volume)on 02-21-2022 Urea nitrogen [Mass/Vol] 24 mg/dL 7-18 [facility] Work Phone: Thin prep Papanicolaou smear with manual screeningon 02-21-2022 Thin prep Papanicolaou smear with manual screening 7 5-15 [facility] Work Phone: Absolute lymphocyte counton 10-27-2021 Lymphocytes Auto (Unsp spec) [#/Vol] 2.88 10*3/uL 0.83-4.51 [facility] Work Phone: Basophil percentageon 2021 Basophils/100 WBC (Bld) 0.4 % 0-1 [facility] Work Phone: [phone] Bilirubin [Mass/Vol] 0.30 mg/dL 0.20-1.00 [facility] Work Phone: Comment on above: For patients on eltr ombopag therapy, use of Dimension [place] TBIL is not recommended. Chloride [Moles/Vol] 101 mmol/L 98-107 [facility] Work Phone: [phone] Eosinophils/100 WBC (Bld) 1.7 % 0-5 [facility] Work Phone: [phone] Glucose [Mass/Vol] 88 mg/dL 74-106 [facility] Work Phone: [phone] Neutrophils (Bld) [#/Vol] 4.7 10*3/uL 2.0-7.7 [facility] Work Phone: [phone] Neutrophils/100 WBC (Bld) 55.7 % 47-70 [facility] Work Phone: [phone] Potassium [Moles/Vol] 4.4 mmol/L 3.5-5.1 [facility] Work Phone: [phone] Protein [Mass/Vol] 7.3 g/dL 6.4-8.2 [facility] Work Phone: [phone] Sodium [Moles/Vol] 136 mmol/L 136-145 [facility] Work Phone: WBC (Bld) [#/Vol] 8.4 10*3/uL 4.4-11.0 [facility] Work Phone: [phone] Blood erythrocytes count (nu mber/volume)on 10-27-2021 RBC (Bld) [#/Vol] 4.64 10*6/uL 4.2-5.4 [facility] Work Phone: Blood hemoglobin measurement (mass/volume)on 10-27-2021 Hemoglobin (Bld) [Mass/Vol] 13.7 g/dL 12.0-15.0 [facility] Work Phone: Blood lymphocytes/100 leukoc yteson 10-27-2021 Lymphocytes/100 WBC (Bld) 34.2 % 19-41 [facility] Work Phone: Blood monocytes/100 leukocyt eson 10-27-2021 Monocytes/100 WBC (Bld) 7.8 % 0-10 [facility] Work Phone: Blood platelet mean volumeon 10-27-2021 Platelet mean volume (Bld) [Entitic vol] 10.1 fL 6.2-12.0 [facility] Work Phone: Determination of erythrocyte mean corpuscular volume (MCV)on 10-27-2021 MCV (RBC) [Entitic vol] 87.1 fL 81-99 [facility] Work Phone: Hematocrit Auto (Bld) [Volum e fraction]on 10-27-2021 Hematocrit (Bld) [Volume fraction] 40.4 % 37-47 [facility] Work Phone: Laboratory - Chemistry and C hemistry - challengeon 10-27-2021 ALP [Catalytic activity/Vol] 55 U/L 45-117 [facility] Work Phone: ALT [Catalytic activity/Vol] 25 U/L 13-56 [facility] Work Phone: CO2 [Moles/Vol] 28.0 mmol/L 21.0-32.0 [facility] Work Phone: Globulin (S) [Mass/Vol] 3.5 g/dL 2.2-4.2 [facility] Work Phone: Urea nitrogen/Creatinine [Mass ratio] 17.8 mg/mg 10-20 [facility] Work Phone: Laboratory - Hematology and Cell countson 10-27-2021 Erythrocyte distribution width (RBC) [Entitic vol] 45.9 fL 35.1-43.9 [facility] Work Phone: Erythrocyte distribution width (RBC) [Ratio] 14.4 % 11.6-14.6 [facility] Work Phone: Immature granulocytes/100 WBC (Bld) 0.200 % 0.0-0.9 [facility] Work Phone: Comment on above: IG% - Immature Granu locytes (promyelocytes, myelocytes and metamyelocytes) > 1% indicates that a LEFT SHIFT is Present. MCH (RBC) [Entitic mass] 29.5 pg 27.0-32.0 [facility] Work Phone: Nucleated RBC/100 WBC (Bld) [Ratio] 0 % 0-5 [facility] Work Phone: MCHC Auto (RBC) [Mass/Vol]on 10-27-2021 MCHC (RBC) [Mass/Vol] 33.9 g/dL 32-36 [facility] Work Phone: No Panel Informationon 10-27 Estimated GFR (MDRD) Amer 64 mL/min >60 [facility] Work Phone: Comment on above: GFR Calc Estimated GFR (MDRD) Non-Af Amer 53 mL/min >60 [facility] Work Phone: Comment on above: Non- GFR Calc Thyroid Stimulating Hormone (TSH) 6.94 uIU/mL 0.358-3.74 [facility] Work Phone: Vitamin D 25-Hydroxy 67.3 ng/mL [facility] Work Phone: Comment on above: Vitamin D 25(OH) Sta tus Range Deficiency <20 ng/mL (50nmol/L) Insufficiency 20 - 30 ng/mL (50 - 75 nmol/L) Sufficiency 30 - 100 ng/mL (75 - 250 nmol/L) Toxicity >100 ng/mL (>250 nmol/L) Platelets bldon 10-27-2021 Platelets (Bld) [#/Vol] 354 10*3/uL 150-450 [facility] Work Phone: Serum or plasma albumin dot urement (mass/volume)on 10-27-2021 Albumin [Mass/Vol] 3.8 g/dL 3.2-5.0 [facility] Work Phone: Serum or plasma albumin/glob ulin mass ratioon 10-27-2021 Albumin/Globulin [Mass ratio] 1.1 {ratio} 0.9-2.4 [facility] Work Phone: Serum or plasma calcium dot urement (mass/volume)on 10-27-2021 Calcium [Mass/Vol] 9.6 mg/dL 8.5-10.1 [facility] Work Phone: Serum or plasma creatinine m easurement (mass/volume)on 10-27-2021 Creatinine [Mass/Vol] 1.07 mg/dL 0.55-1.02 [facility] Work Phone: Comment on above: The validity of the calculated GFR & GFRAA in patients over 70 years has not been determined. Clinical correlation is essential. Serum or plasma urea nitroge n measurement (mass/volume)on 10-27-2021 Urea nitrogen [Mass/Vol] 19 mg/dL 7-18 [facility] Work Phone: Thin prep Papanicolaou smear with manual screeningon 10-27-2021 Thin prep Papanicolaou smear with manual screening 12 U/L 15-37 [facility] Work Phone: Thin prep Papanicolaou smear with manual screening 7 5-15 [facility] Work Phone: Basophil percentageon 2021 Basophil percentage 4.0 mg/dL 2.5-4.9 [facility] Work Phone: Chloride [Moles/Vol] 103 mmol/L 98-[address] [facility] Work Phone: Glucose [Mass/Vol] 184 mg/dL 74-106 [facility] Work Phone: Comment on above: Fasting Glucose resu lt greater than or equal to 126 mg/dL suggests DIABETES MELLITUS per A.D.A. criteria. Potassium [Moles/Vol] 4.6 mmol/L 3.5-5.1 [facility] Work Phone: Sodium [Moles/Vol] 137 mmol/L 136-145 [facility] Work Phone: WBC (Bld) [#/Vol] 7.1 10*3/uL 4.4-11.0 [facility] Work Phone: Blood erythrocytes count (nu mber/volume)on 09-19-2021 RBC (Bld) [#/Vol] 4.68 10*6/uL 4.2-5.4 [facility]: Blood hemoglobin measurement (mass/volume)on 09-19-2021 Hemoglobin (Bld) [Mass/Vol] 13.3 g/dL 12.0-15.0 [facility] Work Phone: Blood platelet mean volumeon 09-19-2021 Platelet mean volume (Bld) [Entitic vol] 9.6 fL 6.2-12.0 [facility] Work Phone: Determination of erythrocyte mean corpuscular volume (MCV)on 09-19-2021 MCV (RBC) [Entitic vol] 86.1 fL 81-99 [facility] Work Phone: Hematocrit Auto (Bld) [Volum e fraction]on 09-19-2021 Hematocrit (Bld) [Volume fraction] 40.3 % 37-47 [facility] Work Phone: Laboratory - Chemistry and C hemistry - challengeon 09-19-2021 CO2 [Moles/Vol] 26.0 mmol/L 21.0-32.0 [facility] Work Phone: Urea nitrogen/Creatinine [Mass ratio] 19.8 mg/mg 10-20 [facility] Work Phone: Laboratory - Hematology and Cell countson 09-19-2021 Erythrocyte distribution width (RBC) [Entitic vol] 43.8 fL 35.1-43.9 [facility] Work Phone: Erythrocyte distribution width (RBC) [Ratio] 14.1 % 11.6-14.6 [facility] Work Phone: MCH (RBC) [Entitic mass] 28.4 pg 27.0-32.0 [facility] Work Phone: MCHC Auto (RBC) [Mass/Vol]on 09-19-2021 MCHC (RBC) [Mass/Vol] 33.0 g/dL 32-36 [facility] Work Phone: No Panel Informationon 09-19 Estimated GFR (MDRD) Amer 69 mL/min >60 [facility] Work Phone: Comment on above: GFR Calc Estimated GFR (MDRD) Non-Af Amer 57 mL/min >60 [facility] Work Phone: Comment on above: Non- GFR Calc Parathyroid Hormone (Intact) 31.0 pg/mL 18.4-80.1 [facility] Work Phone: Platelets bldon 09-19-2021 Platelets (Bld) [#/Vol] 330 10*3/uL 150-450 [facility] Work Phone: Serum or plasma albumin dot urement (mass/volume)on 09-19-2021 Albumin [Mass/Vol] 3.6 g/dL 3.2-5.0 [facility] Work Phone: Serum or plasma calcium dot urement (mass/volume)on 09-19-2021 Calcium [Mass/Vol] 9.8 mg/dL 8.5-10.1 [facility] Work Phone: Serum or plasma creatinine m easurement (mass/volume)on 09-19-2021 Creatinine [Mass/Vol] 1.01 mg/dL 0.55-1.02 [facility] Work Phone: Comment on above: The validity of the calculated GFR & GFRAA in patients over 70 years has not been determined. Clinical correlation is essential. Serum or plasma urea nitroge n measurement (mass/volume)on 09-19-2021 Urea nitrogen [Mass/Vol] 20 mg/dL 7-18 [facility] Work Phone: Basophil percentageon 2020 Basophil percentage 3.6 mg/dL 2.5-4.9 [facility] Work Phone: Chloride [Moles/Vol] 102 mmol/L 98-107 [facility] Work [facility]: Glucose [Mass/Vol] 191 mg/dL 74-106 [facility] Work Phone: Comment on above: Fasting Glucose resu lt greater than or equal to 126 mg/dL suggests DIABETES MELLITUS per A.D.A. criteria.Please note revised GLUCOSE reference range effective 2017. Potassium [Moles/Vol] 4.3 mmol/L 3.5-5.1 [facility] Work Phone: Sodium [Moles/Vol] 136 mmol/L 136-145 [facility] Work Phone: Laboratory - Chemistry and C hemistry - challengeon 07-14-2021 CO2 [Moles/Vol] 27.0 mmol/L 21.0-32.0 [facility] Work Phone: Urea nitrogen/Creatinine [Mass ratio] 22.6 mg/mg 10-20 [facility] Work Phone: No Panel Informationon 07-14 Estimated GFR (MDRD) Amer 72 mL/min >60 [facility] Work Phone: Comment on above: GFR Calc Estimated GFR (MDRD) Non-Af Amer 59 mL/min >60 [facility] Work Phone: Comment on above: Non- GFR Calc Serum or plasma albumin dot urement (mass/volume)on 07-14-2021 Albumin [Mass/Vol] 3.4 g/dL 3.2-5.0 [facility] Work Phone: Serum or plasma calcium dot urement (mass/volume)on 07-14-2021 Calcium [Mass/Vol] 9.6 mg/dL 8.5-10.1 [facility] Work Phone: Serum or plasma creatinine m easurement (mass/volume)on 07-14-2021 Creatinine [Mass/Vol] 0.97 mg/dL 0.55-1.02 [facility] Work Phone: Comment on above: The validity of the calculated GFR & GFRAA in patients over 70 years has not been determined. Clinical correlation is essential. Serum or plasma urea nitroge n measurement (mass/volume)on 07-14-2021 Urea nitrogen [Mass/Vol] 22 mg/dL 7-18 [facility] Work Phone: Urine creatinine measurement (mass/volume)on 07-14-2021 Creatinine (U) [Mass/Vol] 144.00 mg/dL NO RANGE EST. [facility] Work Phone: Urine protein measurement (m ass/volume)on 07-14-2021 Protein (U) [Mass/Vol] 13.8 mg/dL 0.0-11.8 [facility] Work Phone: Urine protein/creatinine mas s ratioon 07-14-2021 Protein/Creatinine (U) [Mass ratio] 96 mg/g CRE 0-200 [facility] Work Phone: .Auto Diffon 02-19-2019 Ammonia (P) [Mass/Vol] 0.60 10 3/mcL Normal 0.15-1.00 [facility] ([place]) Comment on above: Performed By: #### A ROJAS, CBC, ADIFF #### [facility] [address] [place] [id number] #### B12, GFR, FE, BMP, FOL #### [address] [address] Basophils (Bld) [#/Vol] 0.00 10 3/mcL Normal 0.00-0.19 [facility] ([place]) Comment on above: Performed By: #### A ROJAS, CBC, ADIFF #### [place] [address] #### B12, GFR, FE, BMP, FOL #### [address] [address] Basophils/100 WBC (Bld) 0.4 % Normal 0.0-2.5 [facility] ([place]) Comment on above: Performed By: #### A ORJAS, CBC, ADIFF #### [place] [address] #### B12, GFR, FE, BMP, FOL #### [address] [address] Eosinophils (Bld) [#/Vol] 0.20 10 3/mcL Normal 0.00-0.40 [facility] ([place]) Comment on above: Performed By: #### A ROJAS, CBC, ADIFF #### [place] [address] #### B12, GFR, FE, BMP, FOL #### [address] [address] Eosinophils/100 WBC (Bld) 2.5 % Normal 0.0-7.0 [facility] ([place]) Comment on above: Performed By: #### A ROJAS, CBC, ADIFF #### [place] [address] #### B12, GFR, FE, BMP, FOL #### [address] [address] Lymphocytes (Bld) [#/Vol] 1.50 10 3/mcL Normal 0.77-3.85 [facility] ([place]) Comment on above: Performed By: #### A ROJAS, CBC, ADIFF #### [place] [address] #### B12, GFR, FE, BMP, FOL #### [address] [address] Lymphocytes/100 WBC (Bld) 21.3 % Normal 10.0-50.0 [facility] ([place]) Comment on above: Performed By: #### A ROJAS, CBC, ADIFF #### [address] [address] #### B12, GFR, FE, BMP, FOL #### [address] [address] Monocytes/100 WBC (Bld) 8.1 % Normal 1.7-13.0 [facility] ([place]) Comment on above: Performed By: #### A ROJAS, CBC, ADIFF #### [address] [address] #### B12, GFR, FE, BMP, FOL #### [address] [address] Neutrophils/100 WBC (Bld) 67.7 % Normal 37.0-80.0 [facility] ([place]) Comment on above: Performed By: #### A ROJAS, CBC, ADIFF #### [address] [address] #### B12, GFR, FE, BMP, FOL #### [address] [address] .GFRon 02-19-2019 GFR Non- 50 ml/min/1.73sqm Normal [facility] ([place]) Comment on above: Result Comment: GFR Population [...] By: #### A ROJAS, CBC, ADIFF #### [address] [address] #### B12, GFR, FE, BMP, FOL #### [address] [address] GFR 61 ml/min/1.73sqm Normal [facility] ([place]) Comment on above: Result Comment: GFR Population [...] By: #### A ROJAS, CBC, ADIFF #### [address] [address] #### B12, GFR, FE, BMP, FOL #### [address] [address] .NEUABSon 02-19-2019 Neutrophils (Bld) [#/Vol] 4.90 10 3/mcL Normal 2.85-6.16 [facility] ([place]) Comment on above: Performed By: #### A ROJAS, CBC, ADIFF #### [address] [address] #### B12, GFR, FE, BMP, FOL #### [address] [address] B12on 02-19-2019 Cobalamin (Vitamin B12) [Mass/Vol] 258 pg/mL Normal 211-911 [facility] ([place]) Comment on above: Performed By: #### A ROJAS, CBC, ADIFF #### [address] [address] #### B12, GFR, FE, BMP, FOL #### [address] [address] BMPon 02-19-2019 Calcium [Mass/Vol] 8.8 mg/dL Normal 8.4-10.2 [facility] ([place]) Comment on above: Performed By: #### A ROJAS, CBC, ADIFF #### [address] [address] #### B12, GFR, FE, BMP, FOL #### [address] [address] Chloride [Moles/Vol] 103 mmol/L Normal 98-107 Counts include 234 beds at the [facility] ([place]) Comment on above: Performed By: #### A ROJAS, CBC, ADIFF #### [address] [address] #### B12, GFR, FE, BMP, FOL #### [address] [address] CO2 [Moles/Vol] 32 mmol/L High 23-31 [facility] ([place]) Comment on above: Performed By: #### A ROJAS, CBC, ADIFF #### [place] [address] #### B12, GFR, FE, BMP, FOL #### [address] [address] Creatinine [Mass/Vol] 1.07 mg/dL High 0.55-1.02 [facility] ([place]) Comment on above: Performed By: #### A ROJAS, CBC, ADIFF #### [address] [address] #### B12, GFR, FE, BMP, FOL #### [address] [address] Electrolyte Balance 4.0 mEq/L Normal [facility] ([place]) Comment on above: Performed By: #### A ROJAS, CBC, ADIFF #### [place] [address] #### B12, GFR, FE, BMP, FOL #### [address] [address] Glucose [Mass/Vol] 105 mg/dL Normal 83-110 [facility] ([place]) Comment on above: Performed By: #### A ROJAS, CBC, ADIFF #### [address] [address] #### B12, GFR, FE, BMP, FOL #### [address] [address] Potassium [Moles/Vol] 4.2 mmol/L Normal 3.5-5.1 [facility] ([place]) Comment on above: Performed By: #### A ROJAS, CBC, ADIFF #### [address] [address] #### B12, GFR, FE, BMP, FOL #### [address] [address] Sodium [Moles/Vol] 139 mmol/L Normal 136-145 [facility] ([place]) Comment on above: Performed By: #### A ROJAS, CBC, ADIFF #### [place] [address] #### B12, GFR, FE, BMP, FOL #### [address] [address] Urea nitrogen [Mass/Vol] 16 mg/dL Normal 7-18 [facility] ([place]) Comment on above: Performed By: #### A ROJAS, CBC, ADIFF #### [place] [address] #### B12, GFR, FE, BMP, FOL #### [address] [address] Urea nitrogen/Creatinine [Mass ratio] 15 ratio Normal 7-27 [facility] ([place]) Comment on above: Performed By: #### A ROJAS, CBC, ADIFF #### [address] [address] #### B12, GFR, FE, BMP, FOL #### [address] [address] CBCon 02-19-2019 Erythrocyte distribution width (RBC) [Ratio] 18.4 % High 11.5-14.5 [facility] ([place]) Comment on above: Performed By: #### A ROJAS, CBC, ADIFF #### [address] [address] #### B12, GFR, FE, BMP, FOL #### [place] [address] Hematocrit (Bld) [Volume fraction] 32.9 % Low 37.0-47.0 [facility] ([place]) Comment on above: Performed By: #### A ROJAS, CBC, ADIFF #### [place] [address] #### B12, GFR, FE, BMP, FOL #### [place] [address] Hemoglobin (Bld) [Mass/Vol] 11.0 G/dL Low 12.0-16.0 [facility] ([place]) Comment on above: Performed By: #### A ROJAS, CBC, ADIFF #### [place] [address] #### B12, GFR, FE, BMP, FOL #### [place] [address] MCH (RBC) [Entitic mass] 27.5 pg Normal 27.0-31.2 [facility] ([place]) Comment on above: Performed By: #### A ROJAS, CBC, ADIFF #### [place] [address] #### B12, GFR, FE, BMP, FOL #### [place] [address] MCHC (RBC) [Mass/Vol] 33.5 G/dL Normal 33.0-37.0 [facility] ([place]) Comment on above: Performed By: #### A ROJAS, CBC, ADIFF #### [place] [address] #### B12, GFR, FE, BMP, FOL #### [place] [address] MCV (RBC) [Entitic vol] 82.1 fL Normal 80.0-94.0 [facility] ([place]) Comment on above: Performed By: #### A ROJAS, CBC, ADIFF #### [place] [address] #### B12, GFR, FE, BMP, FOL #### [address] [address] Platelet mean volume (Bld) [Entitic vol] 7.6 fL Normal 7.4-10.4 [facility] ([place]) Comment on above: Performed By: #### A ROJAS, CBC, ADIFF #### [place] [address] #### B12, GFR, FE, BMP, FOL #### [address] [address] Platelets (Bld) [#/Vol] 251 10 3/mcL Normal 130-400 [facility] ([place]) Comment on above: Performed By: #### A ROJAS, CBC, ADIFF #### [place] [address] #### B12, GFR, FE, BMP, FOL #### [place] [address] RBC (Bld) [#/Vol] 4.00 10 6/mcL Low 4.20-5.40 Counts include 234 beds at the [facility] ([place] Comment on above: Performed By: #### A ROJAS, CBC, ADIFF #### [place] [address] #### B12, GFR, FE, BMP, FOL #### [place] [id number] WBC (Bld) [#/Vol] 7.20 10 3/mcL Normal 4.60-10.80 Counts include 234 beds at the [facility] ([place] Comment on above: Performed By: #### A ROJAS, CBC, ADIFF #### [place] [address] #### B12, GFR, FE, BMP, FOL #### [address] [address] FEon 02-19-2019 Iron [Mass/Vol] 43 ug/dL Low 50-70 [facility] ([place]) Comment on above: Performed By: #### A ROJAS, CBC, ADIFF #### [place] [id number] [place], [place] [address] #### B12, GFR, FE, BMP, FOL #### [facility] [address] [place] [address] FOLon 02-19-2019 Folate 27.2 ng/mL High 1.1-20.0 [facility] ([place]) Comment on above: Performed By: #### A ROJAS, CBC, ADIFF #### [place] [id number] [place], [place] [address] #### B12, GFR, FE, BMP, FOL #### [facility] [address] [place] [address] XR KNEE 1 OR 2 VIEWS LEFTon [...] PM Sign Date: 02/18/2019 1:51:39 PM Normal [facility] ([place]) CT KNEE W/O CONTRAST LEFTon 02-04-2019 CT [...] PM Sign Date: 02/04/2019 6:02:48 PM Normal [facility] ([place]) Culture, urine Bacteria identified Cx Nom (U) Positive [facility] Work Phone: Vital Signs Date Time Vital Sign Value Performing Clinician John huston 08-29-2022 09:41-0500 Body height 173.[address] Sumit Whipple Work Phone: [facility] 08-29-2022 09:41-0500 Body mass index (BMI) [Ratio] 27.3 kg/m2 Dr. Sumit Whipple Work Phone: [facility] 08-29-2022 09:41-0500 Body temperature 97.2 [degF] Dr. Sumit Whipple Work Phone: [facility] 08-29-2022 09:41-0500 Body weight 82.[address] Sumit Whipple Work Phone: [facility] 08-29-2022 09:41-0500 Diastolic blood pressure 75 mm[Hg] Dr. Sumit Whipple Work Phone: [facility] 08-29-2022 09:41-0500 Heart rate 68 /min Dr. Sumit Whipple Work Phone: [facility] 08-29-2022 09:41-0500 Respiratory rate 18 /min Dr. Sumit Whipple Work Phone: [facility] 08-29-2022 09:41-0500 SaO2% (BldA) [Mass fraction] 96 % Dr. Sumit Whipple Work Phone: [facility] 08-29-2022 09:41-0500 Systolic blood pressure 150 mm[Hg] Dr. Sumit Whipple Work Phone: [facility] 12-07-2021 14:48-0400 Body height 173.99 cm [facility] Work Phone: 12-07-2021 14:48-0400 Body weight 91.53 kg [facility] Work Phone: 10-24-2021 11:18-0400 Body height 173.99 cm [facility] Work Phone: 10-24-2021 11:18-0400 Body weight 93.98 kg [facility] Work Phone: 10-10-2021 10:31-0500 Body weight 94.71 kg [facility] Work Phone: Encounters Encounter Date Encounter Type Care Provider Facility Start: 03-16-2025 ambulatory Sumit Chi Sarabjit Facility:[facility] Start: 03-02-2025 End: 03-02-2025 ambulatory Sumit Chi Sarabjit Facility:[facility] Start: 02-26-2025 End: 02-26-2025 ambulatory Sumit Chi Sarabjit Facility:[facility] Start: 02-20-2025 End: 02-20-2025 ambulatory Sumit Chi Sarabjit Facility:[facility] Start: 02-09-2025 ambulatory Sumit Chi Sarabjit Facility:[facility] Start: 02-02-2025 ambulatory Sumit Chi Sarabjit Facility:[facility] Start: 01-26-2025 ambulatory Sumit Chi Sarabjit Facility:[facility] Start: 01-19-2025 ambulatory Sumit Chi Sarabjit Facility:[facility] Start: 01-13-2025 End: 01-13-2025 ambulatory Sumit Chi Sarabjit Facility:[facility] Start: 01-12-2025 End: 01-12-2025 ambulatory Sumit Chi Sarabjit Facility:[facility] Start: 01-07-2025 ambulatory Sumit Chi Sarabjit Facility:[facility] Start: 01-07-2025 End: 01-10-2025 Evaluation and management of inpatient Suimt Chi Sarabjit Facility:[facility] Start: 12-26-2024 End: 12-26-2024 ambulatory Sumit Chi Sarabjit Facility:[facility] Start: 12-19-2024 End: 12-19-2024 ambulatory Sumit Chi Sarabjit Facility:[facility] Start: 12-09-2024 End: 12-09-2024 ambulatory Sumit Chi Sarabjit Facility:[facility] Start: 12-03-2024 End: 12-03-2024 ambulatory Collette Nieves Facility:[facility] Start: 11-25-2024 ambulatory Sumit Chi Sarabjit Facility:[facility] Start: 11-24-2024 ambulatory Sumit Chi Sarabjit Facility:[facility] Start: 11-18-2024 End: 11-18-2024 ambulatory Sumit Chi Sarabjit Facility:[facility] Start: 11-17-2024 End: 11-17-2024 ambulatory Sumit Chi Sarabjit Facility:[facility] Start: 11-14-2024 ambulatory Sumit Chi Sarabjit Facility:[facility] Start: 11-14-2024 End: 11-14-2024 Emergency department patient visit Sumit Chi Sarabjit Facility:[facility] Start: 10-21-2024 End: 10-21-2024 ambulatory Sumit Chi Sarabjit Facility:[facility] Start: 10-13-2024 End: 10-17-2024 Evaluation and management of inpatient Sumit Chi Sarabjit Facility:[facility] Start: 10-13-2024 ambulatory Sumit Chi Sarabjit Facility:[facility] Start: 10-08-2024 End: 10-08-2024 ambulatory Sumit Chi Sarabjit Facility:[facility] Start: 09-05-2024 End: 09-05-2024 ambulatory Sumit Chi Sarabjit Facility:[facility] Start: 09-04-2024 End: 09-04-2024 ambulatory Sumit Chi Sarabjit Facility:[facility] Start: 09-02-2024 End: 09-02-2024 ambulatory Sumit Chi Sarabjit Facility:[facility] Start: 07-03-2024 End: 07-03-2024 ambulatory Sumit Chi Sarabjit Facility:[facility] Start: 06-11-2024 End: 06-11-2024 ambulatory Sumit Chi Sarabjit Facility:[facility] Start: 05-21-2024 End: 05-21-2024 ambulatory Sumit Chi Sarabjit Facility:[facility] Start: 05-14-2024 End: 05-14-2024 ambulatory Sumit Chi Sarabjit Facility:[facility] Start: 03-26-2024 End: 03-26-2024 ambulatory Sumit Chi Sarabjit Facility:[facility] Start: 11-19-2023 End: 11-19-2023 ambulatory [facility] Work Phone: Start: 11-19-2023 End: 11-19-2023 Patient encounter procedure [facility]-Cat Scan, [facility] Work Phone: Start: 11-16-2023 End: 11-16-2023 ambulatory AGA GARCIA Facility:[facility] Start: 11-16-2023 End: 11-16-2023 Subsequent hospital visit by physician Xr [facility] Work Phone: Radiology Comment on above: Arthritis of foot [M 19.079] Start: 11-16-2023 End: 11-16-2023 Patient encounter procedure Aga Garcia Work Phone: Podiatry Comment on above: 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) (Primary Dx); Arthritis of foot; Callus of foot Start: 11-07-2023 End: 11-07-2023 ambulatory [facility] Work Phone: Start: 11-07-2023 End: 11-07-2023 Patient encounter procedure [facility]-Laboratory, Phy Office 3rd Flr Start: 07-31-2023 End: 07-31-2023 ambulatory [facility] Work Phone: Start: 07-31-2023 End: 07-31-2023 Patient encounter procedure [facility]-MRI - [facility] Work Phone: Start: 07-17-2023 End: 07-17-2023 ambulatory [facility] Work Phone: Start: 07-17-2023 End: 07-17-2023 [facility] Start: 05-09-2023 End: 05-09-2023 Patient encounter procedure [facility] Office 3rd Flr Start: 04-18-2023 End: 04-18-2023 ambulatory [facility] Work Phone: Start: 04-18-2023 End: 04-18-2023 Patient encounter procedure [facility] Office 3rd Flr Start: 11-01-2022 End: 11-01-[address] Sumit Whipple Work Phone: [facility] Work Phone: Start: 11-01-2022 End: 11-01-[address] Sumit Whipple Work Phone: [facility] Office 3rd Flr Start: 10-24-2022 End: 10-24-2022 Subsequent hospital visit by physician [facility] Work Phone: Radiology Comment on above: Foot pain, bilateral [M79.671, M79.672] Start: 10-12-2022 Refill Karoline Cervantes MD Work Phone: Psychiatry Comment on above: Refill Request Start: 08-29-2022 End: 08-29-[address] Sumit Whipple Work Phone: [facility] Work Phone: Start: 08-29-2022 End: 08-29-[address] [facility] Start: 08-29-2022 End: 08-29-[address] Sumit Whipple Work Phone: [facility] Start: 08-21-2022 End: 08-21-2022 ambulatory [facility] Work Phone: Start: 08-21-2022 End: 08-21-2022 Patient encounter procedure [facility]-Outpatient Breast Imaging Start: 05-17-2022 End: 05-17-2022 [facility] Karoline Cervantes MD Work Phone: Psychiatry Comment on above: Recurrent major depr essive disorder, in partial remission (HCC) (Primary Dx) Start: 05-04-2022 End: 05-04-2022 ambulatory [facility] Work Phone: Start: 05-04-2022 End: 05-04-2022 Patient encounter procedure [facility]-Laboratory, Phy Office 3rd Flr Start: 03-18-2022 Refill Karoline Cervantes MD Work Phone: Psychiatry Comment on above: Refill Request Start: 03-14-2022 Refill Karoline Cervantes MD Work Phone: Psychiatry Comment on above: Refill Request Start: 02-21-2022 End: 02-21-2022 Patient encounter procedure [facility]-Radiology, [facility] Start: 12-07-2021 End: 12-10-2021 [facility] Start: 11-17-2021 End: 11-17-2021 [facility] Karoline Cervantes MD Work Phone: Psychiatry Comment on above: Recurrent major depr essive disorder, in partial remission (HCC) (Primary Dx) Start: 10-27-2021 End: 10-27-2021 Patient encounter procedure [facility]-Laboratory, y Office 3rd Flr Start: 10-24-2021 End: 11-10-2021 [facility] Start: 10-24-2021 [facility] Start: 10-20-2021 End: 10-20-2021 Patient encounter procedure [facility]-Outpatient Breast Imaging Start: 10-10-2021 End: 10-10-2021 [facility] Start: 09-19-2021 End: 09-19-2021 Patient encounter procedure [facility]-Laboratory, Phy Office 3rd Flr Start: 07-25-2021 Patient encounter procedure [facility]-Ultrasound, [facility] Start: 07-14-2021 Patient encounter procedure [facility]-Laboratory, Phy Office 3rd Flr Start: 03-15-2018 End: 03-26-2018 Patient encounter [facility] Procedures Date Procedure Procedure Detail Performing Clinician [...] Radex foot complete minimum 3 views Aga Garcia Work Phone: Start: 08-21-2022 Bilateral mammography Start: 08-21-2022 Ultrasonography of breast Start: 02-21-2022 Diagnostic radiograp hy of abdomen, decubitus and erect Start: 10-20-2021 Screening mammography Start: 07-25-2021 US urinary tract Start: 09-04-2011 Colonoscopy Karoline burgos MD Work Phone: Urine culture Plan of Treatment Date Care Activity Detail Author Start: 06-04-2030 Urine microalbumin profile DTaP,Tdap,Td Vaccine (3 - Td or Tdap) [facility] Start: 09-23-2028 Urine microalbumin profile [facility] Start: 11-15-2024 Diabetic foot examination Diabetic Foot Exam [facility] Start: 08-13-2023 Advance Directive Discussion Advance Directive Discussion [facility] Start: 04-13-2023 Covid-19 Vaccine () Covid-19 Vaccine () [facility] Start: 04-13-2023 Influenza vaccination Influenza Vacc ine (#1) [facility] Start: 08-13-2022 ADVANCE DIRECTIVE DISCUSSION ADVANCE DIRECTIVE DISCUSSION [facility] Start: 06-13-2022 Glaucoma screening Dilated Retinal E xam [facility] Start: 06-13-2022 Hepatitis C antibody , confirmatory test DILATED RETINAL EXAM [facility] Start: 04-13-2022 Influenza vaccination INFLUENZA (#1) [facility] Start: 03-03-2022 COVID-19 VACCINE (5 - Booster for Pfizer series) COVID-19 VACCINE (5 - Booster for Pfizer series) [facility] Start: 11-11-2021 COVID-19 VACCINE (4 - Booster for Pfizer series) COVID-19 VACCINE (4 - Booster for Pfizer series) [facility] Start: 11-09-2021 3 comp foot exam completed DIABETIC FOOT EXAM [facility] Start: 09-04-2021 Colonoscopy COLONOSCOPY [facility] Start: 09-04-2021 COLORECTAL CANCER SCREENING COLORECTAL CANCER SCREENING [facility] Start: 08-13-2021 ADVANCE DIRECTIVE DISCUSSION ADVANCE DIRECTIVE DISCUSSION [facility] Start: 08-14-2020 ANNUAL PCP TEAM DIRECTOR OF HEAD START VIJAY DISEASE VISIT ANNUAL PCP TEAM CHRONIC DISEASE VISIT [facility] Start: 02-04-2020 Hemoglobin A1c measurement HbA1C [facility] Start: 02-04-2020 Hemoglobin A1c/Hemoglobin.total in Blood HBA1C [facility] Start: 12-27-2019 FECAL OCCULT BLOOD FECAL OCCULT BLOO D [facility] Start: 11-05-2019 Hepatitis B screening URINE ALBUMIN:CREATININE RATIO [facility] Start: 11-05-2019 Hepatitis B surface antibody level LDL CHOLESTEROL [facility] Start: 08-18-2015 PNEUMOCOCCAL: 65+ (2 - PCV) PNEUMOCOCCAL: 65+ (2 - PCV) [facility] Start: 2006 Hepatitis B Vaccine (1 of 3 - Risk 3-dose series) Hepatitis B Vaccine (1 of 3 - Risk 3-dose series) [facility] Start: 2006 RSV Vaccine (1 - 1-d ose 60+ series) RSV Vaccine (1 - 1-dose 60+ series) [facility] Start: 1996 SHINGRIX VACCINE (1 of 2) SHINGRIX VACCINE (1 of 2) [facility] Start: 1991 COLOGUARD (FIT-DNA) COLOGUARD (FIT-D NA) [facility] Start: [address] COLONOGRAPHY [facility] Start: 1991 SIGMOIDOSCOPY SIGMOIDOSCOPY [facility] Start: 1964 ANNUAL PCP TEAM DIRECTOR OF HEAD START VIJAY DISEASE VISIT ANNUAL PCP TEAM CHRONIC DISEASE VISIT [facility] Start: 1964 BP CONTROLLED (<130/80) BP CONTROLLE D (<130/80) [facility] XR Foot - left AP an d Lateral and oblique XR FOOT GENERAL 3V AP/LAT/OBL LEFT Radiology Routine Arthritis of foot 11/16/2023 12:41 PM EDT [facility] Work Phone: End: 12-15-2024 XR Foot - left AP and Lateral and oblique XR FOOT GENERAL 3V AP/LAT/OBL LEFT Radiology Routine Arthritis of foot 1 Occurrences starting 11/16/2023 until 12/15/2024 [facility] Work Phone: Comment on above: 1 Occurrences starti ng 11/16/2023 until 12/15/2024 [facility] Immunizations Immunization Date Immunization Notes Care Provider Fa cility 04-20-2021 influenza virus vacc ine, unspecified formulation [employer] [employer] Work Phone: [facility] 10-02-2019 hepatitis A vaccine, adult dosage Karoline Cervantes MD Work Phone: [facility] Work Phone: 06-05-2019 influenza, high dose seasonal, preservative-free Karoline Cervantes MD Work Phone: [facility] 06-30-2017 influenza, seasonal, injectable Karoline Cervantes MD Work Phone: [facility] 08-18-2014 pneumococcal conjuga te vaccine, 13 valent Karoline Cervantes MD Work Phone: [facility] 08-18-2014 pneumococcal polysaccharide vaccine, 23 valent Karoline Cervantes MD Work Phone: [facility] 04-29-2013 influenza virus vacc ine, unspecified formulation Karoline Cervantes MD Work Phone: [facility] 05-10-2012 influenza virus vacc ine, unspecified formulation Karoline Cervantes MD Work Phone: [facility] 10-01-2009 pneumococcal polysaccharide vaccine, 23 valent Karoline Cervantes MD Work Phone: [facility] Work Phone: 05-13-2009 tetanus and diphther ia toxoids, adsorbed, preservative free, for adult use (2 Lf of tetanus toxoid and 2 Lf of diphtheria toxoid) Karoline Cervantes MD Work Phone: [facility] Work Phone: Payers Date Payer Category Payer Self-pay [id number] 2011 Medicare [id number] 2011 Medicare MEDICARE MEDICAR E A AND B [id number] 2011-Present [phone] [place] [id number] Medicare [id number] 2011 Medicare MEDICARE MEDICAR E A AND B [id number] 2011-Present [phone] [address] [place] [id number] Medicare [id number] 1999 Unknown [id number] 1999 Unknown ANTHEM ANTHEM BC BS FEP PPO [id number] 1999-Present [phone] [id number] [place] [address] PPO [id number] 1999 Unknown ANTHEM ANTHEM BC BS FEP PPO [id number] 1999-Present [phone] [id number] [place] [address] PPO [id number] [id number] Unknown [id number] 2.16.840.1.688622.3.579.2.462 Unknown [id number] 2.16840.1.333885.3.579.2.462 Unknown [id number] 2.16.840.1.106838.3.579.2.462 Unknown [id number] 2.16.840.1.717539.3.579.2.462 Unknown [id number] 2.840.1.319752.3.579.2.462 Unknown [id number] 2.840.1.852495.3.579.2.462 Unknown [id number] 2.840.1.970129.3.579.2.462 Unknown [id number] 2.840.1.716718.3.579.2.462 Unknown [id number] 2.840.1.058558.3.579.2.462 Unknown [id number] 2.840.1.347445.3.579.2.462 Unknown [id number] 2.840.1.795292.3.579.2.462 Unknown [id number] 2.840.1.240953.3.579.2.462 Unknown [id number] 2.840.1.419057.3.579.2.462 Unknown [id number] 2.16.840.1.060607.3.579.2.462 Unknown [id number] 2.16.840.1.588140.3.579.2.462 Unknown [id number] 2.16.840.1.724532.3.579.2.462 Unknown [id number] 2.16.840.1.214393.3.579.2.462 Unknown [id number] 2.16840.1.194717.3.579.2.462 Unknown [id number] 2.16.840.1.245357.3.579.2.462 Unknown [id number] 2.16.840.1.669936.3.579.2.462 Unknown [id number] 2.16.840.1.729310.3.579.2.462 Unknown [id number] 2.840.1.520998.3.579.2.462 Unknown [id number] 2.16840.1.270925.3.579.2.462 Unknown [id number] 2.840.1.115841.3.579.2.462 Unknown [id number] 2.840.1.479820.3.579.2.462 Unknown [id number] 2.840.1.028842.3.579.2.462 Unknown [id number] 2.840.1.976010.3.579.2.462 Unknown [id number] 2.840.1.699182.3.579.2.462 Unknown [id number] 2.840.1.034612.3.579.2.462 Unknown [id number] 2.840.1.049503.3.579.2.462 Unknown [id number] 2.840.1.154074.3.579.2.462 Unknown [id number] 2.840.1.473594.3.579.2.462 Unknown [id number] 2.840.1.647647.3.579.2.462 Unknown [id number] 2.16.840.1.178341.3.579.2.462 Unknown [id number] 2.840.1.780764.3.579.2.462 Unknown [id number] 2.840.1.566373.3.579.2.462 Unknown [id number] 2.16.840.1.803497.3.579.2.462 Unknown [id number] 2.16.840.1.804729.3.579.2.462 Unknown [id number] 2.16.840.1.452067.3.579.2.462 Unknown [id number] 2.16.840.1.844943.3.579.2.462 Unknown [id number] 2.16.840.1.622685.3.579.2.462 Unknown [id number] 2.16.840.1.931099.3.579.2.462 Unknown [id number] 2.16.840.1.243141.3.579.2.462 Unknown [id number] 2.16.840.1.040476.3.579.2.462 Unknown [id number] 2.840.1.857783.3.579.2.462 Unknown [id number] 2.16840.1.629573.3.579.2.462 Social History Date Type Detail Facility Start: 08-24-2020 End: 08-29-2022 Tobacco smoking status NYIS Unknown if ever smoked [facility] Start: 1945 Sex Assigned At Female [facility] Start: 04-03-2011 Tobacco smoking stat us NYIS Never smoked tobacco [facility] Start: 08-11-2021 End: 11-16-2023 Alcohol intake Current drinker of alcohol (finding) [facility] Start: 08-18-2014 History SDOH Alcohol Comment once or twice per week [facility] Start: 04-03-2011 Tobacco use and exposure Smokeless tobacco non-user [facility] Work Phone: Start: 09-06-2022 End: 10-24-2022 History of Social function [facility] Start: 09-06-2022 End: 10-24-2022 Tobacco use panel [facility] Adult Depression Screening Assessment 4 [facility] Start: 04-09-2019 Gender identity Identifies as female gender (finding) [facility] Start: 08-28-2019 Sexual orientation Heterosexual (fin ding) [facility] Medical Equipment Procedure Code Equipment Code Equipment Origin al Text Equipment Identifier Dates 0---Lens Iol +15 .5 Ana Acrsf Iq - [id number] Start: 08-21-2013 0---Lens Iol +15 Ana Acrsf Iq 13 - [id number] Start: 09-04-2013 Comment on above: Description: acrysof iol lens Test blood sugar(s) 1-2 times daily. Dx: Type 2 DM - Controlled E11.9 Insulin: No Start: 08-21-2019 Comment on above: Test blood sugar(s) 1-2 times daily. Dx: Type 2 DM - Controlled E11.9 Insulin: No Goals Date Patient Goal Desired Activity /State Clinical Notes 09-04-2013 to 01-10-2025 Kristina Escobar RT(R) - 11/16/2023 12:10 PM Daniel Montanez RN - 11/16/2023 12:10 PM Aga De Santiago - 11/16/2023 11:54 AM Daniel Montanez RN - 11/16/2023 11:44 AM EDT Note Date & Type Note Facility 01-10-2025 Note [facility] 10-17-2024 Note [facility] 10-13-2024 Note [facility] 11-16-2023 Note HNO ID: [id number] Author: DANIEL SCHULTE RN Service: ? Author Type: Registered Nurse Type: Progress Notes Filed: 11/16/2023 12:51 Note Text: Per Dr. GarciaAracely was provided with Gel Powerstep Inserts, size 11-12 Womens, and instructed/educated in its application, wear, and care. All questions were answered, and patient was able to demonstrate competence with the necessary skills to utilize the above equipment. Daniel Schulte RN [facility] 11-16-2023 Note HNO ID: [id number] Author: KRISTINA ESCOBAR RT(R) Service: Radiology Author Type: Technologist Type: Progress Notes Filed: 11/16/2023 12:42 Note Text: Radiology Service Progress Note PATIENT NAME: Aracely Hernandez DATE OF SERVICE: November 16, 2023 TIME: [...] PATIENT PRESENTS WITH AN IMPLANTABLE OR ATTACHED OPERATORS SCHOOL MANAGER: No RADIOLOGY DEPARTMENT: General X-ray: Exam(s) Completed: Lower Extremity X-Ray(s): Foot, Left and Wt. Bearing PERIPHERAL IV DATA: Not applicable SIGNED BY: RT Charbel(R) November 16, 2023 12:32 PM [facility] 11-16-2023 Note HNO ID: [id number] Author: AGA GARCIA, ? Service: ? Author [...] dysfunction 02/19 LVH also Essential hypertension, benign 1986 GERD (gastroesophageal reflux disease) Hypervitaminosis B6 Hypothyroidism [...] polyp, 8 ye (more content not included)... [facility] 11-16-2023 Note HNO ID: [id number] Author: DANIEL SCHULTE, NADER Service: ? Author Type: Registered Nurse Type: [...] over the last few months. YANELI- 10/24/22 [facility] 11-16-2023 History of Presen t illness Narrative Radiology Service Progress Note PATIENT NAME: Aracely Hernandez DATE OF SERVICE: November 16, 2023 TIME: [...] PATIENT PRESENTS WITH AN IMPLANTABLE OR ATTACHED OPERATORS SCHOOL MANAGER: No RADIOLOGY DEPARTMENT: General X-ray: Exam(s) Completed: Lower Extremity X-Ray(s): Foot, Left and Wt. Bearing PERIPHERAL IV DATA: Not applicable SIGNED BY: RT Charbel(R) November 16, 2023 12:32 PM documented in this encounter [facility] 11-16-2023 History of Presen t illness Narrative Per Dr. Garcia, Aracely was provided with Gel Powerstep Inserts, size 11-12 Womens, and instructed/educated in its application, wear, and care. All questions were answered, and patient was able to demonstrate competence with the necessary skills to utilize the above equipment. Daniel Schulte RN Images from the original note [...] history since last visit. PAIN EVALUATION 11/15/2023 [id number] Pain Location: Toe Duration Amount of Time: [...] L4 & L5 . Dr Fraser in [facility] PAST SURGICAL HISTORY OF 05/2009 gastric sleeve [...] Objective: Patient presents to clinic ambulating in sperrys Constitutional: Pt is a well developed 78 [...] months. YANELI- 10/24/22 documented in this encounter [facility] 11-16-2023 Instructions Aga Garcia - 11/16/2023 12:00 [...] (or decreased sensation in your feet) a outside plant engineer should always cut your toenails. Be Careful [...] Go to your health care provider or outside plant engineer to treat these conditions. Powerstep Original Full length. Can purchase at [employer] and boots,shoes and more here in [place] in [place] or [place]. Also can find in [place] in [facility]. Powersteps can also be purchased online, starting [...] fits well together documented in this encounter [facility] 10-24-2022 History of Presen t illness Narrative Radiology Service Progress Note PATIENT NAME: Aracely Hernandez DATE OF SERVICE: October 24, 2022 TIME: [...] 2022 9:10 AM documented in this encounter [facility] 05-17-2022 History of Presen t illness Narrative Virtual Psychiatric Visit 30 minutes with patient consent Patient Identification: WF many years from a 2 yr marriage, Retired [employer] 1998, no children. First dx Depression [facility] [id number] Moss and a therapist in [facility]. Tried Prozac (unclear response), Lexapro (worked -- switched to Cymbalta for pain). Saw [facility] Present Psychiatric Medications: Cymbalta 30 mg Wellbutrin XL 300 mg CC: medication follow up HPI: Aracely states she is doing well overall. Mood stable. Good interest and motivation. Eating and sleeping well. Overwhelmed at times when busy. Stressed with some issues at [employer] which is dying and may need to combine with another hinduism. Enjoys [employer] and [employer] study. Had a big family reunion recently which was busy but fun -- still has sisters staying with her. Medical health is very good -- has been able to discontinue some medications and has lost 40 lbs in past year. 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 Medication working well. [...] AND C ANDOR POLYPECTOMY 09/13/2011 LAMINECTOMY,>2 SGMT,LUMBAR 2005 surgery on L4 & L5 . Dr Fraser in [place] PAST SURGICAL HISTORY OF 05/2009 gastric sleeve PAST SURGICAL HISTORY OF 2001 left hip replacement PAST SURGICAL HISTORY OF 1981, 2005 L4-L5 surgery REMOVAL OF TONSILS,<13 Y/O age 6 Tonsillectomy REMOVE CATARACT, INSERT LENS,EX McGannon STRESS ECHO DOBUTAMINE 12/22 normal TOTAL KNEE REPLACEMENT 01/22 Right TOTAL KNEE REPLACEMENT 02/18/2019 Dr. Ramsey US KIDNEY 2010 normal US PELVIS 06/23 1 cm endometrial [...] in own home Vocational Situation: retired 1998 [facility] Support Systems: Brother, sisters, gf Leisure: volunteering, ipad, reading, TV, crafting Spiritual: Raised [employer]. Temple : denies FAMILY PSYCHIATRIC HISTORY: Brother with [...] Karoline Cervantes MD documented in this encounter [facility] 11-17-2021 History of Presen t illness Narrative Virtual Psychiatric Visit 30 minutes with patient consent Patient Identification: WF many years from a 2 yr marriage, Retired [employer] 1998, no children. First dx Depression [facility] [id number] Moss and a therapist in [facility]. Tried Prozac (unclear response), Lexapro (worked -- [...] and is feeling better. 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 Seeing a new counselor for a couple of sessions and feels it has brought up some important issues -- loss of best friend 10 yrs ago and missing the closeness of a relationship after end of last one. Very active at [employer]. Spends time with brother. Having family over for Easter. Enjoys daily routines. Likes to read. Doing [...] L4 & L5 . Dr Fraser in [place] PAST SURGICAL HISTORY OF 05/2009 gastric sleeve PAST SURGICAL HISTORY OF 2001 left hip replacement PAST SURGICAL HISTORY OF 1981, 2005 L4-L5 surgery REMOVAL OF TONSILS,<13 Y/O age 6 Tonsillectomy REMOVE CATARACT, INSERT LENS,EX McGannon STRESS ECHO DOBUTAMINE 12/22 normal TOTAL KNEE REPLACEMENT 01/22 Right TOTAL KNEE REPLACEMENT 02/18/2019 Dr. Ramsey US KIDNEY 2010 normal US PELVIS 06/23 1 cm endometrial [...] in own home Vocational Situation: retired 1998 [facility] Support Systems: Brother, sisters, gf Leisure: volunteering, ipad, reading, TV, crafting Spiritual: Raised [employer]. Temple : denies FAMILY PSYCHIATRIC HISTORY: Brother with [...] Karoline Cervantes MD documented in this encounter [facility] 09-04-2013 History of Past i llness Narrative Problem Noted Date Resolved Date Cataract, left eye 09/04/2013 09/04/2013 Other and combined forms of senile cataract 02/1208/21/2013 Depression 09/07/2014 documented as of this encounter (statuses as of 11/17/2021) [facility] History of Past illness Narrative* Problem Noted Date Resolved Date Cataract, left eye 09/04/2013 09/04/2013 Other and combined forms of senile cataract 07/3 08/21/2013 Depression 09/07/2014 documented as of this encounter (statuses as of 03/15/2022) [facility] History of Past illness Narrative* Problem Noted Date Resolved Date Cataract, left eye 09/04/2013 09/04/2013 Other and combined forms of senile cataract 07/3 08/21/2013 Depression 09/07/2014 documented as of this encounter (statuses as of 03/20/2022) [facility] History of Past illness Narrative* Problem Noted Date Resolved Date Cataract, left eye 09/04/2013 09/04/2013 Other and combined forms of senile cataract 07/3 08/21/2013 Depression 09/07/2014 documented as of this encounter (statuses as of 05/17/2022) [facility] History of Past illness Narrative* Problem Noted Date Resolved Date Cataract, left eye 09/04/2013 09/04/2013 Other and combined forms of senile cataract 07/3 08/21/2013 Depression 09/07/2014 documented as of this encounter (statuses as of 10/12/2022) [facility] History of Past illness Narrative* Problem Noted Date Diagnosed Date Resolved Date Cataract, left eye 09/04/2013 4 Other and combined forms of senile cataract 03/11/2013 08/21/2013 Depression 09/07/2014 documented as of this encounter (statuses as of 06/16/2023) [facility] History of Past illness Narrative* Problem Noted Date Diagnosed Date Resolved Date Cataract, left eye 09/04/2013 4 Other and combined forms of senile cataract 03/11/2013 08/21/2013 Depression 09/07/2014 documented as of this encounter (statuses as of 11/17/2023) [facility] History of Past illness Narrative* Problem Noted Date Diagnosed Date Resolved Date Cataract, left eye 09/04/2013 4 Other and combined forms of senile cataract 03/11/2013 08/21/2013 Depression 09/07/2014 documented as of this encounter (statuses as of 11/16/2023) [facility] Work [facility]* Diagnosis Recurrent major depressive disorder, in partial remission (HCC)- Primary documented in this encounter [facility] note* Diagnosis Recurrent major depressive disorder, in partial remission (HCC)- Primary documented in this encounter [facility] note* Diagnosis Onset Date Resolution Status Cyst of left breast acute [facility] Work Phone: Evaluation note* Diagnosis Foot pain, bilateral Pain in limb documented in this encounter [facility] note* Diagnosis Arthritis of foot Unspecified arthropathy, ankle and foot documented in this encounter [facility] note* Diagnosis Other diabetic neurological complication associated with type 2 diabetes mellitus (HCC)- Primary Arthritis of foot Unspecified arthropathy, ankle and foot Callus of foot Corns and callosities documented in this encounter [facility] for referral (narrative)* Diagnostic Procedure Only (Routine) - Closed Specialty Diagnoses / Procedures Referred By Contac t Referred To Contact XR IMAGING Diagnoses Foot pain, bilateral Procedures XR FOOT GENERAL 3V AP/LAT/OBL BILATERAL RADEX FOOT COMPLETE MINIMUM 3 VIEWS Aga Garcia[address] [place] [address] [place] [address] Referral ID Status Reason Start Date Expiration Date V isits Requested Visits Authorized [id number] Closed Auto-Generate d Referral 10/20/2022 11/19/2023 1 1 [facility] for referral (narrative)* Diagnostic Procedure Only (Routine) - Closed Specialty Diagnoses / Procedures Referred By Contac t Referred To Contact XR IMAGING Diagnoses Arthritis of foot Procedures XR FOOT GENERAL 3V AP/LAT/OBL LEFT RADEX FOOT COMPLETE MINIMUM 3 VIEWS Aga Garcia [address] [place] [address] [place] [address] Referral ID Status Reason Start Date Expiration Date V isits Requested Visits Authorized [id number] Closed Auto-Generate d Referral 11/16/2023 12/15/2024 1 1 [facility] for visit Narrative* Diagnostic Procedure Only (Routine) - Closed Specialty Diagnoses / Procedures Referred By Contac t Referred To Contact XR IMAGING Diagnoses Foot pain, bilateral Procedures XR FOOT GENERAL 3V AP/LAT/OBL BILATERAL RADEX FOOT COMPLETE MINIMUM 3 VIEWS TestAga harvey [address] [place] [address] [place] [address] Referral ID Status Reason Start Date Expiration Date V isits Requested Visits Authorized [id number] Closed Auto-Generate d Referral 10/20/2022 11/19/2023 1 1 [facility] for visit Narrative* Diagnostic Procedure Only (Routine) - Closed Specialty Diagnoses / Procedures Referred By Contac t Referred To Contact XR IMAGING Diagnoses Arthritis of foot Procedures XR FOOT GENERAL 3V AP/LAT/OBL LEFT RADEX FOOT COMPLETE MINIMUM 3 VIEWS TestraAga wood [address] [place] [address] [place] [address] Referral ID Status Reason Start Date Expiration Date V isits Requested Visits Authorized [id number] Closed Auto-Generate d Referral 11/16/2023 12/15/2024 1 1 [facility] Summary Purpose Family History No Family History Records Found Relationship Condition Age at Onset Recorded Date/T tracee mother Malignant neoplasm Unknown brother Cerebrovascular accident (CVA) Unknown Advance Directives No Advanced Directives Records Found Advance Directive Response Recorded Date/ Time Living Will No October 22, 2018 1:26pm Power of Bottle Assembler No October 22 1:26pm Advance Directive Response Recorded Date/ Time Living Will No October 22, 2018 12:26pm Power of Bottle Assembler No October 22 12:26pm Chief Complaint and [...] section and content) DATE CREATED AUTHOR 03/27/2018 [facility] DATE CREATED AUTHOR AUTHOR'S ORGANIZ ATKALYN 02/22/2019 [facility] ([place] DATE CREATED AUTHOR AUTHOR'S ORGANIZ ATION 11/22/2023 [facility] DATE CREATED AUTHOR AUTHOR'S ORGANIZ ATION 03/05/2025 [facility] Source Comments (unrecognize d section and content) In the event this informatio n is protected by the Federal Confidentiality of Alcohol and Drug Abuse Patient Records regulations: The Federal rules restrict any use of the information to criminally investigate or prosecute any alcohol or drug abuse patient.[facility] event this information is protected by the Federal Confidentiality of Alcohol and Drug Abuse Patient Records regulations: The Federal rules restrict any use of the information to criminally investigate or prosecute any alcohol or drug abuse patient.[facility] the event this information is protected by the Federal Confidentiality of Alcohol and Drug Abuse Patient Records regulations: The Federal rules restrict any use of the information to criminally investigate or prosecute any alcohol or drug abuse patient.[facility] the event this information is protected by the Federal Confidentiality of Alcohol and Drug Abuse Patient Records regulations: The Federal rules restrict any use of the information to criminally investigate or prosecute any alcohol or drug abuse patient.[facility] the event this information is protected by the Federal Confidentiality of Alcohol and Drug Abuse Patient Records regulations: The Federal rules restrict any use of the information to criminally investigate or prosecute any alcohol or drug abuse patient.[facility] the event this information is protected by the Federal Confidentiality of Alcohol and Drug Abuse Patient Records regulations: The Federal rules restrict any use of the information to criminally investigate or prosecute any alcohol or drug abuse patient.[facility] the event this information is protected by the Federal Confidentiality of Alcohol and Drug Abuse Patient Records regulations: The Federal rules restrict any use of the information to criminally investigate or prosecute any alcohol or drug abuse patient.[facility] Reason for Visit (unrecogniz ed section and [...] Status: Inactive Member Role Status Dates Dr. Sumti Whipple MD Primary Care Provi shayne, Attending [...] BE BASED ON THE PRIMARY CLINICAL RECORDS. [employer] provides no warranty or guarantee of the accuracy or completeness of information in this document.
[2025-03-05 23:25] LABS: AST(SGOT) 19 U/L (<=31); Alanine Aminotransfer ALT/SGPT 20 U/L (<=34); Albumin, Serum 3.6 g/dL (3.4-4.8); Alkaline Phosphatase 66 U/L (35-104); Anion Gap 17 (5-15); BUN 19 mg/dL (4-19); BUN/Creat Ratio 17.0 RATIO (10-20); Calcium,Total 9.5 mg/dL (7.6-11.0); Carbon Dioxide 19.2 mmol/L (21.0-32.0); Chloride 101 mmol/L (98-108); Estimated Creatinine Clearance 48.52 ml/min (50-250); Globulin 2.5 g/dL (2.2-4.2); Glucose 331 mg/dL (70-99); Potassium 4.8 mmol/L (3.3-5.1)
--- NOTE | 2025-03-05 23:30 | RAD_ITS ---
PROCEDURE: HIP, UNI W/ PELVIS 2-3 VIEWS 03/05/2025 REASON FOR EXAM: TRAUMA TECHNIQUE: HIP, UNI W/ PELVIS 2-3 VIEWS COMPARISON: No FINDINGS: Lower lumbar spine degeneration, prior surgery. Intact pelvic ring. Mild right hip osteoarthritis. Status post left THR. Intact hardware. Anatomic alignment. No acute bone or soft tissue pathology. RAD/HIP, UNI W/ Pelvis 2-3 Views IMPRESSION: No acute injury noted. [facility]
[2025-03-05] MEDS: 0.9% Normal Saline (1000mL) 1,000 ML 999 ML IV (23:39)
[2025-03-06] VITALS (8 sets, daily range): BP systolic 102–170; BP diastolic 57–97; PULSE 62–71; RESP 17–18; TEMP 35.9–37.1; O2SAT 94–100; BMI 28.0
--- NOTE | 2025-03-06 00:19 | PCM.HP.STD ---
HPI - General General Date of Admission: 03/06/25 Date of Service: 03/06/25 Chief Complaint: Frequent falls, debility. HPI Narrative The patient is a 79 y/o F w/ PMHx: Chronic normocytic anemia, Parkinson's disease/chart reported history of cerebellar tremor, CKD stage III unclear subtype per GFR trending, Diabetes mellitus type II, HLD, Anxiety and Depression, Hypothyroidism, Chronic orthostatic hypotension, GERD, ZAIRA who presents to the [facility] ED on 03/06/25 with history of 2 falls on evening prior to presentation normally using a walker however in the evening she when she went to use the restroom it does not fit well by the toilet prompting her to leave it by the shower when she fell backwards hitting her head against the toilet with no loss of consciousness eventually able to get herself up however later in the evening when she was with her sister #2 other additional people trying to get her medications ready she felt shaky and again fell backwards prompting EMS evaluation and transition to the ED given her frequent falls. Family notes that she has seemed more unstable lately and has at least 8 or 9 falls since September. She was recently in rehab for January but not markedly improved. Workup in the ED included T98.2, heart 74, BP 107/70, respiratory rate 18, 100% on room air, CBC with WC 8.0, hemoglobin 11.8, MCV 83.8, platelet 351 without marked shift, CMP with carbon oxide 19.2, anion gap 17, BUN/creatinine 19/1.12, GFR 50, glucose 331, hepatic profile unremarkable, CT of the brain with no acute intracranial findings with senescent changes, CT cervical spine with no acute osseous abnormality with multilevel degenerative changes worse at C4-5 and C5-6, CT lumbar spine with an acute mid sacral fracture with an adjacent presacral hemorrhage, plain film of the hip and pelvis with no acute findings status post left total hip replacement evident with intact hardware. In the ED patient ministered 1 L normal saline and Tylenol 650 mg p.o. x 1. [facility] Medical History (Updated 03/06/25 @ 00:[address] Sanna Elaine MD) Parkinsonian features GERD (gastroesophageal reflux disease) Hypothyroidism CKD (chronic kidney disease), stage III Chronic anemia HLD (hyperlipidemia) Anxiety and depression Orthostatic hypotension Sleep apnea Diabetes mellitus Home Medications ?Medication ?Instructions ?Recorded ?Last Taken ?Type pantoprazole 40 mg tablet,delayed 40 mg PO DAILY GERD 10/22/18 Unknown History release levothyroxine 100 mcg tablet 100 mcg PO QDAY thyroid 12/10/23 Unknown History rosuvastatin 40 mg tablet 40 mg PO QDAY HLD 12/10/23 Unknown History ascorbic acid (vitamin C) 500 mg 500 mg PO QDAY vitamin 05/21/24 Unknown History tablet calcium 600 mg (as carbonate)-vit 1 tab PO QAM supplement 05/21/24 Unknown History D3 20 mcg (800 unit) chewable tablet (Caltrate plus D) cyanocobalamin (vitamin B-12) 1,000 mcg PO QDAY supplement 05/21/24 Unknown History 1,000 mcg tablet (Vitamin B-12) d-mannose 500 mg capsule 500 mg PO .QD spasms 05/21/24 Unknown History docusate sodium 100 mg capsule 100 mg PO BID stool softner 05/21/24 Unknown History hydroxyzine HCl 50 mg tablet 50 mg PO Q6H PRN anxiety 05/21/24 Unknown History magnesium oxide 500 mg capsule 500 mg PO QDAY SUPPLEMENT 05/21/24 Unknown History metformin 1,000 mg tablet 1,000 mg PO BID DM 05/21/24 Unknown History acetaminophen 500 mg tablet 500 mg PO Q8H PRN PAIN 06/11/24 Unknown History tiarra.stocking,knee,reg,smal #24 ea 10/17/24 Unknown Rx (T.E.D. Anti-Embolism Stocking) fludrocortisone 0.1 mg tablet 0.1 mg PO BREAKFAST #30 tabs 10/17/24 Unknown Rx diphenhydramine HCl 25 mg capsule 25 mg PO BID PRN PRN itching #20 11/14/24 Unknown Rx (Benadryl) caps bupropion HCl 300 mg 24 hr tablet, 300 mg PO QDAY depression #90 tabs 12/03/24 Unknown Rx extended release carbidopa 25 mg-levodopa 100 mg 1 tab PO TID 12/03/24 Unknown History tablet midodrine 10 mg tablet 15 mg PO TID 12/03/24 Unknown History bupropion HCl 150 mg 24 hr tablet, 150 mg PO QAM #90 tabs 12/26/24 Unknown Rx extended release buspirone 5 mg tablet 5 mg PO BID mood #180 tabs 12/26/24 Unknown Rx duloxetine 60 mg capsule,delayed 60 mg PO DAILY 03/05/25 Unknown History release pregabalin 75 mg capsule 75 mg PO TID 03/05/25 Unknown History sertraline 50 mg tablet 25 mg PO QDAY 03/05/25 Unknown History Allergy/AdvReac Type Severity Reaction Status Date / Time Opioids - Morphine Analogues Allergy Rash Verified 03/05/25 22:37 adhesive tape AdvReac Unknown Rash Verified 03/05/25 22:37 tramadol (From Ultram) AdvReac Itching Verified 03/05/25 22:37 Family History Mother Cancer cervical Brother CVA (cerebral vascular accident) Father CVA (cerebral vascular accident) Sister , at the age of 65 Liver cancer Surgical History Cyst of left breast Status post hip surgery H/O knee surgery H/O wrist surgery Social History (Updated 03/06/25 @ 00:[address] Sanna Elaine MD) household members: family Smoking Status: Never smoker alcohol intake: current alcohol intake frequency: holidays/special occasions only Alcohol type: wine substance use type: does not use ROS ROS Narrative Admission Review of Systems: CONSTITUTIONAL: No weight loss, fever, chills, + weakness or fatigue. HEENT: Eyes: No visual loss, blurred vision, double vision or yellow sclerae. Ears, Nose, Throat: No hearing loss, sneezing, congestion, runny nose or sore throat. SKIN: No lesions, wounds except + abdominal fold intertrigo, very stage ecchymoses, abrasions. CARDIOVASCULAR: No chest pain, chest pressure or chest discomfort, palpitations, edema, orthopnea, syncopal events. RESPIRATORY: No shortness of breath, cough or sputum, wheezing, hemoptysis. GASTROINTESTINAL: No anorexia, nausea, vomiting or diarrhea, abdominal pain, melena, BRBPR. GENITOURINARY: No dysuria, frequency, urgency or retention. NEUROLOGICAL: + Parkinson's disease with gait imbalance chronically. No headache, dizziness, syncope, paralysis, ataxia, numbness or tingling in the extremities, focal weakness, change in bowel or bladder control, seizure. MUSCULOSKELETAL: + muscle, back pain, joint pain or stiffness. HEMATOLOGIC: + Chronic anemia, easy bleeding/bruising. LYMPHATICS: No enlarged nodes. No history of splenectomy. PSYCHIATRIC: + History of anxiety and depression. ENDOCRINOLOGIC: No reports of sweating, cold or heat intolerance. No polyuria or polydipsia. ALLERGIES: No history of asthma, hives, eczema or rhinitis. Vital Signs Vital Signs Vital Signs: 03/05/25 22:35 03/05/25 22:43 03/06/25 00:16 Temperature 98.2 F 98.8 F Temperature Source Oral Pulse Rate 74 68 Respiratory Rate 18 18 Respiratory Effort Normal Non-Labored Respiratory Depth Normal Respiratory Pattern Normal Blood Pressure 107/70 102/63 Blood Pressure Mean 82 76 Pulse Ox 100 96 Oxygen Delivery Method Room Air Room Air Weight Weight: 190 lb 4.143 oz Body Mass Index (BMI) 28.0 Physical Exam Narrative Physical Examination: General: Awake, alert, oriented x 3 and cooperative, seated upright in ED bed, fatigued but no acute distress. Skin: Normal color, normal turgor, no icterus, no cyanosis except notable intertrigo in the abdominal skin fold, very stage ecchymoses and abrasions. HEENT: AT/NC, EOMI, PERRLA, MMM, no carotid bruits or JVD noted. Lungs: Mildly diminished, greater bases, appropriate effort, no rales, ronchi or wheezing. Heart: Regular rate and rhythm; no gallop, rub audible. Abdomen: Soft, overweight, NTTP, ND, mildly hyperactive BS, no appreciated HSM, see skin. Extremities: No cyanosis, clubbing, or edema. Neurological: Patient awake, alert, oriented as noted, cognitive function intact; pupils equally reactive to light and accommodation, cranial nerves grossly normal, moving all 4 extremities, no focal deficits, strength moderately to severely global decreased no obvious overt tremors. Psychiatric: Affect appears mildly flat, fatigued, no acute evidence of depressive or anxiety feelings but does have underlying history. Results Lab / Micro Data 03/05/25 22:58 03/05/25 22:58 Labs: Laboratory Results - last 24 hr 03/05/25 22:58: WBC 8.0, RBC 4.37, Hgb 11.8 L, Hct 36.6 L, MCV 83.8, MCH 27.0, MCHC 32.2, RDW Std Deviation 45.5 H, RDW Coeff of Alivia 15.0 H, Plt Count 351, MPV 9.8, Immature Gran % (Auto) 0.400, Neut % (Auto) 61.7, Lymph % (Auto) 24.4, Terrell % (Auto) 9.0, Eos % (Auto) 4.0, Baso % (Auto) 0.5, Absolute Neuts (auto) 4.9, Absolute Lymphs (auto) 1.94, Nucleated RBC % 0, Sodium 138, Potassium 4.8, Chloride 101, Carbon Dioxide 19.2 L, Anion Gap 17 H, BUN 19, Creatinine 1.12, Estim Creat Clear Calc 48.52 L, Est GFR (MDRD) Non-Af 50 L, BUN/Creatinine Ratio 17.0, Glucose 331 H, Calcium 9.5, Total Bilirubin 0.23, AST 19, ALT 20, Alkaline Phosphatase 66, Total Protein 6.1, Albumin 3.6, Globulin 2.5, Albumin/Globulin Ratio 1.4 Imaging Radiology Impression Brain CT 03/05/25 22:49 IMPRESSION: No acute intracranial abnormality. Senescent changes. Reading Location: [id number] Cervical Spine CT 03/05/25 22:49 IMPRESSION: No acute osseous abnormality of the cervical spine. Multilevel degenerative changes are worst at C4-5 and C5-6. Reading Location: [id number] Lumbar Spine CT 03/05/25 22:49 IMPRESSION: Acute mid sacral fracture. Reading Location: [facility] Hip/Pelvis X-Ray 03/05/25 23:30 IMPRESSION: No acute injury noted. Reading Location: [facility] Assessment & Plan Assessment/Plan (1) Sacral fracture: (2) Frequent falls: PLAN: Plan The patient is a 79 y/o F w/ PMHx: Chronic normocytic anemia, Parkinson's disease, CKD stage III unclear subtype per GFR trending, Diabetes mellitus type II, HLD, Anxiety and Depression, Hypothyroidism, Chronic orthostatic hypotension, GERD, ZAIRA who presents to the [facility] ED on 03/06/25 with history of 2 falls on evening prior to presentation normally using a walker however in the evening she when she went to use the restroom it does not fit well by the toilet prompting her to leave it by the shower when she fell backwards hitting her head against the toilet with no loss of consciousness eventually able to get herself up however later in the evening when she was with her sister #2 other additional people trying to get her medications ready she felt shaky and again fell backwards prompting EMS evaluation and transition to the ED given her frequent falls. #1. Debility, frequent falls, adult failure to thrive with an acute mid sacral fracture with an adjacent presacral hemorrhage: Given significant fall history and recent fall with debility will admit to medical surgical floor, maintain on fall precautions, frequent positioning, PRN toradol, as needed tylenol, WBAT, anti-emetics, bowel regimen. PT/OT/CM consultations for discharge planning. #2. Diabetes mellitus type II with mildly elevated anion gap of unclear significance: CMP upon presentation with anion gap 17, glucose 331, to be cautious will obtain hydroxybutyrate acid and urinalysis. In the interim we will hold oral home regimen, allow ADA diet, accu checks w/ ISS. #3. Intertrigo: Will initiate aggressive skin care with daily soap and water cleansing, pat dry and nystatin 3 times daily. #4. Parkinson's disease/Chart reported history cerebellar tremor: Clarifying if regimen still ongoing, if appropriate will continue previously noted Sinemet regimen, maintain on fall precautions, PT/OT/case management consulted for discharge planning as noted. #5. Chronic orthostatic hypotension: Will continue patient home fludrocortisone and aggressive midodrine regimen, maintain on fall precautions. #6. Chronic normocytic anemia: Admission hemoglobin 11.8, MCV 83.8, baseline hemoglobin noted more recently 06-24, stable, continue to trend. #7. Hyperlipidemia: Will continue patient on statin therapy. #8. Anxiety and depression: Will continue patient home sertraline, bupropion and BuSpar cautiously given history of frequent falls. Clarifying as patient is also listed as being on duloxetine. #9. Hypothyroidism: Wilkening patient on levothyroxine regimen. #10. GERD: Continue patient on PPI. #11. Chronic Kidney Disease Stage III, unclear subtype or GFR trending: Admission BUN/Cr 19/1.12, GFR 50, baseline renal function primarily 0.8-1.1, repeat BMP in AM. #12. DVT prophylaxis: SCDs initially given presacral hemorrhage following recent acute mid sacral fracture, over the next 24 to 48 hours may initiate chemoprophylaxis. #13. CODE status: DNR-CCA, no intubation. Charges/Coding Visit Charges Inpatient E&M: 15996 Init Hosp L3
--- OUTSIDE RECORDS SUMMARY | 2025-03-06 00:36 | XMS RPT_ITS | CCD ---
Author Organization [facility] Care Team Providers Care Drop Clipper Name Role Phone Unavailable Primary Care Provider Unavailabl e Sarabjit, Dr. Sumit Hansen Primary Care Provider [phone] Sarabjit, Dr. Sumit Hansen Referring Provider Dr. Mikayla Dukes Attending Provider [phone] Unavailable Primary Care Provider Unavailabl e Sarabjit, Dr. Sumit Hansen Primary Care Provider Sarabjit, Dr. Sumit Hansen Referring Provider Dr. Mikayla Dukes Attending Provider [phone] AGA GARCIA Referring Unavailable TESTAGA HARVEY Attending [...] Unavailable Sarabjit, Sumit Chi Primary Care Unavailable Yens, Syeda Kirstin Attending Unavailable Chrsitopher, Andi Consulting Unavailable Christopher, Andi Admitting Unavailable [...] Translations: [OXYCODONE-ACETAM INOPHEN] Drug Allergy [address] [facility] Repository (10 sources) omeprazole; Translations: [OMEPRAZOLE] Drug Allergy [address] [facility] Repository (10 sources) tapentadol; Translations: [TAPENTADOL] Drug Allergy 2 GI Upset [facility] Repository (10 sources) traMADol; Translations: [TRAMADOL HCL] Drug Allergy [address] [facility] Repository (13 sources) Opioids - Morphine Analogues; Translations: [Opioids - Morphine Analogues] Allergy to substance 9 [facility] (8 sources) Adhesive Tape; Translations: [adhesive tape] Propensity to adverse reactions 3 [facility] (1 source) traMADol Drug Allergy 5 [facility] Repository Medications Current Medications Medication Drug [...] Take 500 mg by mouth once daily. Fitzpatrick-3 Fatty Acids-Fish Oil (12 sources) Start: 10-22-2018 Fitzpatrick-3 Fatty Acids-Fish Oil Active 1 EACH PO DAILY October 22, 2018 1:15pm Start: 10-22-2018 End: 08-29-2022 Fitzpatrick-3 Fatty Acids-Fish Oil Discontinued 1 EACH PO DAILY October 22, 2018 12:00am August 29, 2022 10:45am Start: 10-22-2018 End: 08-29-2022 Fitzpatrick-3 Fatty Acids-Fish Oil Discontinued 1 EACH PO DAILY October 21, 2018 11:00pm August 29, 2022 9:45am Start: 10-22-2018 Fitzpatrick-3 Fatty Acids-Fish Oil Active 1 EACH PO DAILY October 21, 2018 11:00pm Start: 10-22-2018 Fitzpatrick-3 Fatty Acids-Fish Oil Active 1 EACH PO [...] on above: Take 1 capsule by mo [facility] three times daily. Turmeric Root Extract (7 [...] on above: take 1 capsule by mo [facility] once daily Take 1 capsule by mo [facility] once daily. escitalopram 10 mg oral tablet [...] Reference Range Facility MR/JUANCARLOS.BPon 03-04-2025 MR/JUANCARLOS.BP Normal [facility] Protein Electro.Ur-Randomon 03-04-2025 M-SPIKE,U Normal [facility] Comment on above: Result Comment: NOT OBSERVED Performed By: #### L 3600.4000, L3100.3450 ####[facility] [address] [place], [address] Protein Electroph, Son 03-02 Albumin [Mass/Vol] 3.4 g/dL Normal 2.9-4.4 [facility] Comment on above: Performed By: #### L 3600.4000, L3100.3450 ####[facility] [address] [place], [address] Albumin/Globulin [Mass ratio] 1.1 {ratio} Normal 0.7-1.7 [facility] Comment on above: Performed By: #### L 3600.4000, L3100.3450 ####[facility] [address] [place], [address] ALPHA-1 GLOBUL 0.3 g/dL Normal 0.0-0.4 [facility] Comment on above: Performed By: #### L 3600.4000, L3100.3450 ####[facility] [address] [place], [address] ALPHA-2 GLOBUL 1.2 g/dL High 0.4-1.0 [facility] Comment on above: Performed By: #### L 3600.4000, L3100.3450 ####[facility] [address] [place], [address] BETA GLOBULIN 1.0 g/dL Normal 0.7-1.3 [facility] Comment on above: Performed By: #### L 3600.4000, L3100.3450 ####[facility] [address] [place], [address] GAMMA GLOBULIN 0.6 g/dL Normal 0.4-1.8 [facility] Comment on above: Performed By: #### L 3600.4000, L3100.3450 ####[facility] [address] [place], [address] Globulin (S) [Mass/Vol] 3.1 g/dL Normal 2.2-3.9 [facility] Comment on above: Performed By: #### L 3600.4000, L3100.3450 ####[facility] [address] [place], [address] INTERPRETATION Comment Normal . [facility] Comment on above: Result Comment: Prot ein electrophoresis scan will follow via computer,mail, or chick sexer delivery. Performed By: #### L 3600.4000, L3100.3450 ####[facility] [address] [place], [address] M-SPIKE Comment: Normal Not Observed [facility] Comment on above: Result Comment: M-sp gali #1 = 0.1 g/dlM-spike #2 = 0.2 g/dl Performed By: #### L 3600.4000, L3100.3450 ####[facility] [address] [place], [address] NOTE: Comment Normal . [facility] Comment on above: Result Comment: The SPE pattern demonstrates two peaks in the beta-gammaregion which may represent monoclonal protein. A biclonalgammopathy may be confirmed by immunofixation, as well asevaluation of the urine for the presence of Bence-Jonesprotein. Performed By: #### L 3600.4000, L3100.3450 ####[facility] [address] [place], [address] Protein [Mass/Vol] 6.5 g/dL Normal 6.0-8.5 [facility] Comment on above: Performed By: #### L 3600.4000, L3100.3450 ####[facility] [address] [place], [address] Brain/Head without Contrasto n 02-26-2025 Brain/Head without Contrast Normal [facility] MR/BMS.BPon 02-20-2025 MR/BMS.BP Normal [facility] Culture, Blood (WB)on 2024 CUB SET Blood cultures x2, from two different sites No growth in 5 days. Normal [facility] Comment on above: Performed By: #### M 200.1000 ####[facility] [address] [place], [address] Basic Metabolic Profile (BMP )on 01-11-2025 BUN Normal 4-19 [facility] Comment on above: Result Comment: Canc elled via OM: Order cancelled - Patient discharged Performed By: #### L 100.0100, L500.2500 ####[facility] [address] [place], [address] BUN/CRE Normal 10-20 [facility] Comment on above: Result Comment: Canc elled via OM: Order cancelled - Patient discharged Performed By: #### L 100.0100, L500.2500 ####[facility] [address] [place], [address] Calcium Normal 7.6-11.0 [facility] Comment on above: Result Comment: Canc elled via OM: Order cancelled - Patient discharged Performed By: #### L 100.0100, L500.2500 ####[facility] [address] [place], [address] CL Normal 98-108 [facility] Comment on above: Result Comment: Canc elled via OM: Order cancelled - Patient discharged Performed By: #### L 100.0100, L500.2500 ####[facility] [address] [place], [address] CO2 Normal 21.0-32.0 [facility] Comment on above: Result Comment: Canc elled via OM: Order cancelled - Patient discharged Performed By: #### L 100.0100, L500.2500 ####[facility] [address] [place], [address] CREAT,SERUM Normal 0.70-1.20 [facility] Comment on above: Result Comment: Canc elled via OM: Order cancelled - Patient discharged Performed By: #### L 100.0100, L500.2500 ####[facility] [address] [place], [address] eGFR Normal >60 [facility] Comment on above: Result Comment: Canc elled via OM: Order cancelled - Patient discharged Performed By: #### L 100.0100, L500.2500 ####[facility] [address] [place], [address] GAP Normal 5-15 [facility] Comment on above: Result Comment: Canc elled via OM: Order cancelled - Patient discharged Performed By: #### L 100.0100, L500.2500 ####[facility] [address] [place], [address] GLU Normal 70-99 [facility] Comment on above: Result Comment: Canc elled via OM: Order cancelled - Patient discharged Performed By: #### L 100.0100, L500.2500 ####[facility] [address] [place], [address] Potassium Normal 3.3-5.1 [facility] Comment on above: Result Comment: Canc elled via OM: Order cancelled - Patient discharged Performed By: #### L 100.0100, L500.2500 ####[facility] [address] [place], [address] Basic Metabolic Profile (BMP) Normal 133-145 [facility] Comment on above: Result Comment: Canc elled via OM: Order cancelled - Patient discharged Performed By: #### L 100.0100, L500.2500 ####[facility] [address] [place], [address] CBC W/Diff, Automatedon 06-0 -2024 Absolute Neut Normal 2.0-7.7 [facility] Comment on above: Result Comment: Canc elled via OM: Order cancelled - Patient discharged Performed By: #### L 100.0100, L500.2500 ####[facility] [address] [place], [address] HCT Normal 37-47 [facility] Comment on above: Result Comment: Canc elled via OM: Order cancelled - Patient discharged Performed By: #### L 100.0100, L500.2500 ####[facility] [address] [place], [address] HGB Normal 12.0-15.0 [facility] Comment on above: Result Comment: Canc elled via OM: Order cancelled - Patient discharged Performed By: #### L 100.0100, L500.2500 ####[facility] [address] [place], [address] MCH Normal 27.0-32.0 [facility] Comment on above: Result Comment: Canc elled via OM: Order cancelled - Patient discharged Performed By: #### L 100.0100, L500.2500 ####[facility] [address] [place], [address] MCHC Normal 32-36 [facility] Comment on above: Result Comment: Canc elled via OM: Order cancelled - Patient discharged Performed By: #### L 100.0100, L500.2500 ####[facility] [address] [place], [address] MCV Normal 81-99 [facility] Comment on above: Result Comment: Canc elled via OM: Order cancelled - Patient discharged Performed By: #### L 100.0100, L500.2500 ####[facility] [address] [place], [address] NEUT% Normal 47-70 [facility] Comment on above: Result Comment: Canc elled via OM: Order cancelled - Patient discharged Performed By: #### L 100.0100, L500.2500 ####[facility] [address] [place], [address] PLT Normal 150-450 [facility] Comment on above: Result Comment: Canc elled via OM: Order cancelled - Patient discharged Performed By: #### L 100.0100, L500.2500 ####[facility] [address] [place], [address] RBC Normal 4.2-5.4 [facility] Comment on above: Result Comment: Canc elled via OM: Order cancelled - Patient discharged Performed By: #### L 100.0100, L500.2500 ####[facility] [address] [place], [address] RDW CV Normal 11.6-14.6 [facility] Comment on above: Result Comment: Canc elled via OM: Order cancelled - Patient discharged Performed By: #### L 100.0100, L500.2500 ####[facility] [address] [place], [address] RDW SD Normal 35.1-43.9 [facility] Comment on above: Result Comment: Canc elled via OM: Order cancelled - Patient discharged Performed By: #### L 100.0100, L500.2500 ####[facility] [address] [place], [address] WBC Normal 4.4-11.0 [facility] Comment on above: Result Comment: Canc elled via OM: Order cancelled - Patient discharged Performed By: #### L 100.0100, L500.2500 ####[facility] [address] [place], [address] Basic Metabolic Profile (BMP )on 01-10-2025 BUN/CRE 14.9 RATIO Normal 10-20 [facility] Comment on above: Performed By: #### L 100.0100, L500.2500 ####[facility] [address] [place], [address] Calcium [Mass/Vol] 9.3 mg/dL Normal 7.6-11.0 [facility] Comment on above: Performed By: #### L 100.0100, L500.2500 ####[facility] [address] [place], [address] Chloride [Moles/Vol] 104 mmol/L Normal 98-108 [facility] Comment on above: Performed By: #### L 100.0100, L500.2500 ####[facility] [address] [place], [address] CO2 [Moles/Vol] 25.6 mmol/L Normal 21.0-32.0 [facility] Comment on above: Performed By: #### L 100.0100, L500.2500 ####[facility] [address] [place], [address] Creatinine [Mass/Vol] 0.88 mg/dL Normal 0.70-1.20 [facility] Comment on above: Performed By: #### L 100.0100, L500.2500 ####[facility] [address] [place], [address] ECRCL 60.74 ml/min Normal 50-250 [facility] Comment on above: Performed By: #### L 100.0100, L500.2500 ####[facility] [address] [place], [address] GAP 12 Normal 5-15 [facility] Comment on above: Performed By: #### L 100.0100, L500.2500 ####[facility] [address] [place], [address] GFR/1.73 sq M.predicted among non-blacks MDRD (S/P/Bld) [Vol rate/Area] 68 mL/min/{1.73_m2} Normal >60 [facility] Comment on above: Result Comment: mL/m in/1.73m2 CKD-EPI Creatinine Equation (2020) Performed By: #### L 100.0100, L500.2500 ####[facility] [address] [place], [address] Glucose [Mass/Vol] 150 mg/dL High 70-99 [facility] Comment on above: Performed By: #### L 100.0100, L500.2500 ####[facility] [address] [place], [address] Potassium [Moles/Vol] 4.1 mmol/L Normal 3.3-5.1 [facility] Comment on above: Performed By: #### L 100.0100, L500.2500 ####[facility] [address] [place], [address] Sodium [Moles/Vol] 142 mmol/L Normal 133-145 [facility] Comment on above: Performed By: #### L 100.0100, L500.2500 ####[facility] [address] [place], [address] Urea nitrogen [Mass/Vol] 13 mg/dL Normal 4-19 [facility] Comment on above: Performed By: #### L 100.0100, L500.2500 ####[facility] [address] [place], [address] Bedside Glucoseon 05-31-2025 FINGERSTICK GLU 170 mg/dL High 74-106 [facility] Comment on above: Result Comment: GILDA CLINE OF PATIENT CARE PER NURSING PROTOCOL Performed By: #### L 501.080 ####[facility] [address] [place], [address] CBC W/Diff, Automatedon 05-3 -2024 Absolute Lymph 2.24 X10 3/uL Normal 0.83-4.51 [facility] Comment on above: Performed By: #### L 100.0100, L500.2500 ####[facility] [address] [place], [address] Absolute Neut 4.1 X10 3/uL Normal 2.0-7.7 [facility] Comment on above: Performed By: #### L 100.0100, L500.2500 ####[facility] [address] [place], [address] Basophils/100 WBC (Bld) 0.5 % Normal 0-1 [facility] Comment on above: Performed By: #### L 100.0100, L500.2500 ####[facility] [address] [place], [address] Eosinophils/100 WBC (Bld) 4.5 % Normal 0-5 [facility] Comment on above: Performed By: #### L 100.0100, L500.2500 ####[facility] [address] [place], [address] Erythrocyte distribution width (RBC) [Ratio] 15.1 % High 11.6-14.6 [facility] Comment on above: Performed By: #### L 100.0100, L500.2500 ####[facility] [address] [place], [address] Hematocrit (Bld) [Volume fraction] 36.7 % Low 37-47 [facility] Comment on above: Performed By: #### L 100.0100, L500.2500 ####[facility] [address] [place], [address] Hemoglobin (Bld) [Mass/Vol] 11.9 g/dL Low 12.0-15.0 [facility] Comment on above: Performed By: #### L 100.0100, L500.2500 ####[facility] [address] [place], [address] IG% 0.400 Normal 0.0-0.9 [facility] Comment on above: Result Comment: IG% - Immature Granulocytes (promyelocytes, myelocytes andmetamyelocytes) > 1% indicates that a LEFT SHIFT is Present. Performed By: #### L 100.0100, L500.2500 ####[facility] [address] [place], [address] Lymphocytes/100 WBC (Bld) 30.8 % Normal 19-41 [facility] Comment on above: Performed By: #### L 100.0100, L500.2500 ####[facility] [address] [place], [address] MCH (RBC) [Entitic mass] 27.7 pg Normal 27.0-32.0 [facility] Comment on above: Performed By: #### L 100.0100, L500.2500 ####[facility] [address] [place], [address] MCHC (RBC) [Mass/Vol] 32.4 g/dL Normal 32-36 [facility] Comment on above: Performed By: #### L 100.0100, L500.2500 ####[facility] [address] [place], [address] MCV (RBC) [Entitic vol] 85.5 fL Normal 81-99 [facility] Comment on above: Performed By: #### L 100.0100, L500.2500 ####[facility] [address] [place], [address] Monocytes/100 WBC (Bld) 7.3 % Normal 0-10 [facility] Comment on above: Performed By: #### L 100.0100, L500.2500 ####[facility] [address] [place], [address] Neutrophils/100 WBC (Bld) 56.5 % Normal 47-70 [facility] Comment on above: Performed By: #### L 100.0100, L500.2500 ####[facility] [address] [place], [address] Nucleated RBC (Bld) [#/Vol] 0 10*3/uL Normal 0-5 [facility] Comment on above: Performed By: #### L 100.0100, L500.2500 ####[facility] [address] [place], [address] Platelet mean volume (Bld) [Entitic vol] 10.0 fL Normal 6.2-12.0 [facility] Comment on above: Performed By: #### L 100.0100, L500.2500 ####[facility] [address] [place], [address] Platelets (Bld) [#/Vol] 291 10*3/uL Normal 150-450 [facility] Comment on above: Performed By: #### L 100.0100, L500.2500 ####[facility] [address] [place], [address] RBC (Bld) [#/Vol] 4.29 10*6/uL Normal 4.2-5.4 [facility] Comment on above: Performed By: #### L 100.0100, L500.2500 ####[facility] [address] [place], [address] RDW SD 47.4 fl High 35.1-43.9 [facility] Comment on above: Performed By: #### L 100.0100, L500.2500 ####[facility] [address] [place], [address] WBC (Bld) [#/Vol] 7.3 10*3/uL Normal 4.4-11.0 [facility] Comment on above: Performed By: #### L 100.0100, L500.2500 ####[facility] [address] [place], [address] Basic Metabolic Profile (BMP )on 01-09-2025 BUN/CRE 16.7 RATIO Normal 10-20 [facility] Comment on above: Performed By: #### L 500.2500, L100.0100, L501.5200, L501.2300 ####[facility] [address] [place], [address] Calcium [Mass/Vol] 9.0 mg/dL Normal 7.6-11.0 [facility] Comment on above: Performed By: #### L 500.2500, L100.0100, L501.5200, L501.2300 ####[facility] [address] [place], [address] Chloride [Moles/Vol] 103 mmol/L Normal 98-108 [facility] Comment on above: Performed By: #### L 500.2500, L100.0100, L501.5200, L501.2300 ####[facility] [address] [place], [address] CO2 [Moles/Vol] 24.3 mmol/L Normal 21.0-32.0 [facility] Comment on above: Performed By: #### L 500.2500, L100.0100, L501.5200, L501.2300 ####[facility] [address] [place], [address] Creatinine [Mass/Vol] 0.88 mg/dL Normal 0.70-1.20 [facility] Comment on above: Performed By: #### L 500.2500, L100.0100, L501.5200, L501.2300 ####[facility] [address] [place], [address] ECRCL 60.74 ml/min Normal 50-250 [facility] Comment on above: Performed By: #### L 500.2500, L100.0100, L501.5200, L501.2300 ####[facility] [address] [place], [address] GAP 10 Normal 5-15 [facility] Comment on above: Performed By: #### L 500.2500, L100.0100, L501.5200, L501.2300 ####[facility] [address] [place], [address] GFR/1.73 sq M.predicted among non-blacks MDRD (S/P/Bld) [Vol rate/Area] 67 mL/min/{1.73_m2} Normal >60 [facility] Comment on above: Result Comment: mL/m in/1.73m2 CKD-EPI Creatinine Equation (2020) Performed By: #### L 500.2500, L100.0100, L501.5200, L501.2300 ####[facility] [address] [place], [address] Glucose [Mass/Vol] 151 mg/dL High 70-99 [facility] Comment on above: Performed By: #### L 500.2500, L100.0100, L501.5200, L501.2300 ####[facility] [address] [place], [address] Potassium [Moles/Vol] 3.8 mmol/L Normal 3.3-5.1 [facility] Comment on above: Performed By: #### L 500.2500, L100.0100, L501.5200, L501.2300 ####[facility] [address] [place], [address] Sodium [Moles/Vol] 137 mmol/L Normal 133-145 [facility] Comment on above: Performed By: #### L 500.2500, L100.0100, L501.5200, L501.2300 ####[facility] [address] [place], [address] Urea nitrogen [Mass/Vol] 15 mg/dL Normal 4-19 [facility] Comment on above: Performed By: #### L 500.2500, L100.0100, L501.5200, L501.2300 ####[facility] [address] [place], [address] Bedside Glucoseon 01-09-2025 FINGERSTICK GLU 185 mg/dL High -106 [facility] Comment on above: Result Comment: GILDA GEMENT OF PATIENT CARE PER NURSING PROTOCOL Performed By: #### L 501.080 ####[facility] [address] [place], [address] FINGERSTICK GLU 174 mg/dL High -106 [facility] Comment on above: Result Comment: GILDA GEMENT OF PATIENT CARE PER NURSING PROTOCOL Performed By: #### L 501.080 ####[facility] [address] [place], [address] FINGERSTICK GLU 249 mg/dL High 74-106 [facility] Comment on above: Result Comment: GILDA GEMENT OF PATIENT CARE PER NURSING PROTOCOL Performed By: #### L 501.080 ####[facility] [address] [place], [address] FINGERSTICK GLU 179 mg/dL High -106 [facility] Comment on above: Result Comment: GILDA GEMENT OF PATIENT CARE PER NURSING PROTOCOL Performed By: #### L 501.080 ####[facility] [address] [place], [address] FINGERSTICK GLU 224 mg/dL High 74-106 [facility] Comment on above: Result Comment: GILDA CLINE OF PATIENT CARE PER NURSING PROTOCOL Performed By: #### L 501.080 ####[facility] [address] [place], [address] CBC W/Diff, Automatedon 05-3 0-2024 Absolute Lymph 1.78 X10 3/uL Normal 0.83-4.51 [facility] Comment on above: Performed By: #### L 500.2500, L100.0100, L501.5200, L501.2300 ####[facility] [address] [place], [address] Absolute Neut 4.9 X10 3/uL Normal 2.0-7.7 [facility] Comment on above: Performed By: #### L 500.2500, L100.0100, L501.5200, L501.2300 ####[facility] [address] [place], [address] Basophils/100 WBC (Bld) 0.3 % Normal 0-1 [facility] Comment on above: Performed By: #### L 500.2500, L100.0100, L501.5200, L501.2300 ####[facility] [address] [place], [address] Eosinophils/100 WBC (Bld) 3.2 % Normal 0-5 [facility] Comment on above: Performed By: #### L 500.2500, L100.0100, L501.5200, L501.2300 ####[facility] [address] [place], [address] Erythrocyte distribution width (RBC) [Ratio] 15.1 % High 11.6-14.6 [facility] Comment on above: Performed By: #### L 500.2500, L100.0100, L501.5200, L501.2300 ####[facility] [address] [place], [address] Hematocrit (Bld) [Volume fraction] 34.0 % Low 37-47 [facility] Comment on above: Performed By: #### L 500.2500, L100.0100, L501.5200, L501.2300 ####[facility] [address] [place], [address] Hemoglobin (Bld) [Mass/Vol] 11.4 g/dL Low 12.0-15.0 [facility] Comment on above: Performed By: #### L 500.2500, L100.0100, L501.5200, L501.2300 ####[facility] [address] [place], [address] IG% 0.600 Normal 0.0-0.9 [facility] Comment on above: Result Comment: IG% - Immature Granulocytes (promyelocytes, myelocytes andmetamyelocytes) > 1% indicates that a LEFT SHIFT is Present. Performed By: #### L 500.2500, L100.0100, L501.5200, L501.2300 ####[facility] [address] [place], [address] Lymphocytes/100 WBC (Bld) 22.8 % Normal 19-41 [facility] Comment on above: Performed By: #### L 500.2500, L100.0100, L501.5200, L501.2300 ####[facility] [address] [place], [address] MCH (RBC) [Entitic mass] 27.8 pg Normal 27.0-32.0 [facility] Comment on above: Performed By: #### L 500.2500, L100.0100, L501.5200, L501.2300 ####[facility] [address] [place], [address] MCHC (RBC) [Mass/Vol] 33.5 g/dL Normal 32-36 [facility] Comment on above: Performed By: #### L 500.2500, L100.0100, L501.5200, L501.2300 ####[facility] [address] [place], [address] MCV (RBC) [Entitic vol] 82.9 fL Normal 81-99 [facility] Comment on above: Performed By: #### L 500.2500, L100.0100, L501.5200, L501.2300 ####[facility] [address] [place], [address] Monocytes/100 WBC (Bld) 9.6 % Normal 0-10 [facility] Comment on above: Performed By: #### L 500.2500, L100.0100, L501.5200, L501.2300 ####[facility] [address] [place], [address] Neutrophils/100 WBC (Bld) 63.5 % Normal 47-70 [facility] Comment on above: Performed By: #### L 500.2500, L100.0100, L501.5200, L501.2300 ####[facility] [address] [place], [address] Nucleated RBC (Bld) [#/Vol] 0 10*3/uL Normal 0-5 [facility] Comment on above: Performed By: #### L 500.2500, L100.0100, L501.5200, L501.2300 ####[facility] [address] [place], [address] Platelet mean volume (Bld) [Entitic vol] 9.7 fL Normal 6.2-12.0 [facility] Comment on above: Performed By: #### L 500.2500, L100.0100, L501.5200, L501.2300 ####[facility] [address] [place], [address] Platelets (Bld) [#/Vol] 258 10*3/uL Normal 150-450 [facility] Comment on above: Performed By: #### L 500.2500, L100.0100, L501.5200, L501.2300 ####[facility] [address] [place], [address] RBC (Bld) [#/Vol] 4.10 10*6/uL Low 4.2-5.4 [facility] Comment on above: Performed By: #### L 500.2500, L100.0100, L501.5200, L501.2300 ####[facility] [address] [place], [address] RDW SD 46.0 fl High 35.1-43.9 [facility] Comment on above: Performed By: #### L 500.2500, L100.0100, L501.5200, L501.2300 ####[facility] [address] [place], [address] WBC (Bld) [#/Vol] 7.8 10*3/uL Normal 4.4-11.0 [facility] Comment on above: Performed By: #### L 500.2500, L100.0100, L501.5200, L501.2300 ####[facility] [address] [place], [address] Magnesiumon 01-09-2025 Magnesium [Mass/Vol] 1.8 mg/dL Normal 1.5-2.2 [facility] Comment on above: Performed By: #### L 500.2500, L100.0100, L501.5200, L501.2300 ####[facility] [address] [place], [address] Phosphoruson 01-09-2025 Phosphate [Mass/Vol] 4.6 mg/dL High 2.7-4.5 [facility] Comment on above: Performed By: #### L 500.2500, L100.0100, L501.5200, L501.2300 ####[facility] [address] [place], [address] Urine Cultureon 01-09-2025 URC Normal [facility] Comment on above: Performed By: #### M 100.2200 ####[facility] [address] [place], [address] Basic Metabolic Profile (BMP )on 01-08-2025 BUN/CRE 16.5 RATIO Normal 10-20 [facility] Comment on above: Order Comment: PER Kinsey DE JESUS RN OKAY TO DO MORNING LABS EARLY Performed By: #### L 100.0100, L500.2500 ####[facility] [address] [place], [address] Calcium [Mass/Vol] 9.0 mg/dL Normal 7.6-11.0 [facility] Comment on above: Order Comment: YVON DE JESUS RN OKAY TO DO MORNING LABS EARLY Performed By: #### L 100.0100, L500.2500 ####[facility] [address] [place], [address] Chloride [Moles/Vol] 101 mmol/L Normal 98-108 [facility] Comment on above: Order Comment: YVON DE JESUS RN OKAY TO DO MORNING LABS EARLY Performed By: #### L 100.0100, L500.2500 ####[facility] [address] [place], [address] CO2 [Moles/Vol] 20.9 mmol/L Low 21.0-32.0 [facility] Comment on above: Order Comment: YVON DE JESUS RN OKAY TO DO MORNING LABS EARLY Performed By: #### L 100.0100, L500.2500 ####[facility] [address] [place], [address] Creatinine [Mass/Vol] 1.01 mg/dL Normal 0.70-1.20 [facility] Comment on above: Order Comment: PER Kinsey DE JESUS RN OKAY TO DO MORNING LABS EARLY Performed By: #### L 100.0100, L500.2500 ####[facility] [address] [place], [address] ECRCL 52.93 ml/min Normal 50-250 [facility] Comment on above: Order Comment: PER Kinsey DE JESUS RN OKAY TO DO MORNING LABS EARLY Performed By: #### L 100.0100, L500.2500 ####[facility] [address] [place], [address] GAP 13 Normal 5-15 [facility] Comment on above: Order Comment: PER Kinsey DE JESUS RN OKAY TO DO MORNING LABS EARLY Performed By: #### L 100.0100, L500.2500 ####[facility] [address] [place], [address] GFR/1.73 sq M.predicted among non-blacks MDRD (S/P/Bld) [Vol rate/Area] 57 mL/min/{1.73_m2} Low >60 [facility] Comment on above: Order Comment: PER Kinsey DE JESUS RN OKAY TO DO MORNING LABS EARLY Result Comment: mL/m in/1.73m2 CKD-EPI Creatinine Equation (2020) Performed By: #### L 100.0100, L500.2500 ####[facility] [address] [place], [address] Glucose [Mass/Vol] 255 mg/dL High 70-99 [facility] Comment on above: Order Comment: PER Kinsey DE JESUS RN OKAY TO DO MORNING LABS EARLY Performed By: #### L 100.0100, L500.2500 ####[facility] [address] [place], [address] Potassium [Moles/Vol] 4.3 mmol/L Normal 3.3-5.1 [facility] Comment on above: Order Comment: PER Kinsey DE JESUS RN OKAY TO DO MORNING LABS EARLY Performed By: #### L 100.0100, L500.2500 ####[facility] [address] [place], [address] Sodium [Moles/Vol] 135 mmol/L Normal 133-145 [facility] Comment on above: Order Comment: PER Kinsey DE JESUS RN OKAY TO DO MORNING LABS EARLY Performed By: #### L 100.0100, L500.2500 ####[facility] [address] [place], [address] Urea nitrogen [Mass/Vol] 17 mg/dL Normal 4-19 [facility] Comment on above: Order Comment: PER Kinsey DE JESUS RN OKAY TO DO MORNING LABS EARLY Performed By: #### L 100.0100, L500.2500 ####[facility] [address] [place], [address] Bedside Glucoseon 01-08-2025 FINGERSTICK GLU 147 mg/dL High 74-106 [facility] Comment on above: Result Comment: GIDLA GEMENT OF PATIENT CARE PER NURSING PROTOCOL Performed By: #### L 501.080 ####[facility] [address] [place], [address] FINGERSTICK GLU 246 mg/dL High 74-106 [facility] Comment on above: Result Comment: GILDA GEMENT OF PATIENT CARE PER NURSING PROTOCOL Performed By: #### L 501.080 ####[facility] [address] [place], [address] FINGERSTICK GLU 200 mg/dL High -106 [facility] Comment on above: Result Comment: GILDA GEMENT OF PATIENT CARE PER NURSING PROTOCOL Performed By: #### L 501.080 ####[facility] [address] [place], [address] CBC W/Diff, Automatedon 05- Absolute Lymph 1.84 X10 3/uL Normal 0.83-4.51 [facility] Comment on above: Order Comment: PER Kinsey DE JESUS RN OKAY TO DO MORNING LABS EARLY Performed By: #### L 100.0100, L500.2500 ####[facility] [address] [place], [address] Absolute Neut 6.9 X10 3/uL Normal 2.0-7.7 [facility] Comment on above: Order Comment: PER Kinsey DE JESUS RN OKAY TO DO MORNING LABS EARLY Performed By: #### L 100.0100, L500.2500 ####[facility] [address] [place], [address] Basophils/100 WBC (Bld) 0.2 % Normal 0-1 [facility] Comment on above: Order Comment: PER Kinsey DE JESUS RN OKAY TO DO MORNING LABS EARLY Performed By: #### L 100.0100, L500.2500 ####[facility] [address] [place], [address] Eosinophils/100 WBC (Bld) 0.8 % Normal 0-5 [facility] Comment on above: Order Comment: PER Kinsey DE JESUS RN OKAY TO DO MORNING LABS EARLY Performed By: #### L 100.0100, L500.2500 ####[facility] [address] [place], [address] Erythrocyte distribution width (RBC) [Ratio] 15.0 % High 11.6-14.6 [facility] Comment on above: Order Comment: PER Kinsey DE JESUS RN OKAY TO DO MORNING LABS EARLY Performed By: #### L 100.0100, L500.2500 ####[facility] [address] [place], [address] Hematocrit (Bld) [Volume fraction] 36.4 % Low 37-47 [facility] Comment on above: Order Comment: PER Kinsey DE JESUS RN OKAY TO DO MORNING LABS EARLY Performed By: #### L 100.0100, L500.2500 ####[facility] [address] [place], [address] Hemoglobin (Bld) [Mass/Vol] 12.1 g/dL Normal 12.0-15.0 [facility] Comment on above: Order Comment: PER Kinsey DE JESUS RN OKAY TO DO MORNING LABS EARLY Performed By: #### L 100.0100, L500.2500 ####[facility] [address] [place], [address] IG% 0.600 Normal 0.0-0.9 [facility] Comment on above: Order Comment: PER Kinsey DE JESUS RN OKAY TO DO MORNING LABS EARLY Result Comment: IG% - Immature Granulocytes (promyelocytes, myelocytes andmetamyelocytes) > 1% indicates that a LEFT SHIFT is Present. Performed By: #### L 100.0100, L500.2500 ####[facility] [address] [place], [address] Lymphocytes/100 WBC (Bld) 19.0 % Normal 19-41 [facility] Comment on above: Order Comment: PER Kinsey DE JESUS RN OKAY TO DO MORNING LABS EARLY Performed By: #### L 100.0100, L500.2500 ####[facility] [address] [place], [address] MCH (RBC) [Entitic mass] 27.8 pg Normal 27.0-32.0 [facility] Comment on above: Order Comment: PER Kinsey DE JESUS RN OKAY TO DO MORNING LABS EARLY Performed By: #### L 100.0100, L500.2500 ####[facility] [address] [place], [address] MCHC (RBC) [Mass/Vol] 33.2 g/dL Normal 32-36 [facility] Comment on above: Order Comment: PER Kinsey DE JESUS RN OKAY TO DO MORNING LABS EARLY Performed By: #### L 100.0100, L500.2500 ####[facility] [address] [place], [address] MCV (RBC) [Entitic vol] 83.7 fL Normal 81-99 [facility] Comment on above: Order Comment: PER Kinsey DE JESUS RN OKAY TO DO MORNING LABS EARLY Performed By: #### L 100.0100, L500.2500 ####[facility] [address] [place], [address] Monocytes/100 WBC (Bld) 8.4 % Normal 0-10 [facility] Comment on above: Order Comment: PER Kinsey DE JESUS RN OKAY TO DO MORNING LABS EARLY Performed By: #### L 100.0100, L500.2500 ####[facility] [address] [place], [address] Neutrophils/100 WBC (Bld) 71.0 % High 47-70 [facility] Comment on above: Order Comment: PER Kinsey DE JESUS RN OKAY TO DO MORNING LABS EARLY Performed By: #### L 100.0100, L500.2500 ####[facility] [address] [place], [address] Nucleated RBC (Bld) [#/Vol] 0 10*3/uL Normal 0-5 [facility] Comment on above: Order Comment: PER Kinsey DE JESUS RN OKAY TO DO MORNING LABS EARLY Performed By: #### L 100.0100, L500.2500 ####[facility] [address] [place], [address] Platelet mean volume (Bld) [Entitic vol] 10.1 fL Normal 6.2-12.0 [facility] Comment on above: Order Comment: PER Kinsey DE JESUS RN OKAY TO DO MORNING LABS EARLY Performed By: #### L 100.0100, L500.2500 ####[facility] [address] [place], [address] Platelets (Bld) [#/Vol] 256 10*3/uL Normal 150-450 [facility] Comment on above: Order Comment: PER Kinsey DE JESUS RN OKAY TO DO MORNING LABS EARLY Performed By: #### L 100.0100, L500.2500 ####[facility] [address] [place], [address] RBC (Bld) [#/Vol] 4.35 10*6/uL Normal 4.2-5.4 [facility] Comment on above: Order Comment: PER Kinsey DE JESUS RN OKAY TO DO MORNING LABS EARLY Performed By: #### L 100.0100, L500.2500 ####[facility] [address] [place], [address] RDW SD 45.6 fl High 35.1-43.9 [facility] Comment on above: Order Comment: PER Kinsey DE JESUS RN OKAY TO DO MORNING LABS EARLY Performed By: #### L 100.0100, L500.2500 ####[facility] [address] [place], [address] WBC (Bld) [#/Vol] 9.7 10*3/uL Normal 4.4-11.0 [facility] Comment on above: Order Comment: YVON DE JESUS RN OKAY TO DO MORNING LABS EARLY Performed By: #### L 100.0100, L500.2500 ####[facility] [address] [place], [address] Lactic Acidon 01-08-2025 Lactate [Moles/Vol] 1.7 mmol/L Normal 0.0-2.0 [facility] Comment on above: Performed By: #### L 503.6005 ####[facility] [address] [place], [address] 12 Lead EKGon 01-07-2025 12 Lead EKG Normal [facility] Alcohol, Blood (Medical)-Ser umon 01-07-2025 SERUM ETOH < 10.1 Normal <=10.0 [facility] Comment on above: Result Comment: This test is for medical purposes only. The legaldefinition of intoxication varies according to local law. Performed By: #### L 501.2450, L500.3400, L500.2500, L505.5000, L300.4310, L300.3900, L501.9100, L100.0100 ####[facility] [address] [place], [address] Basic Metabolic Profile (BMP )on 01-07-2025 BUN/CRE 13.4 RATIO Normal 10-20 [facility] Comment on above: Performed By: #### L 501.2450, L500.3400, L500.2500, L505.5000, L300.4310, L300.3900, L501.9100, L100.0100 ####[facility] [address] [place], [address] Calcium [Mass/Vol] 9.5 mg/dL Normal 7.6-11.0 [facility] Comment on above: Performed By: #### L 501.2450, L500.3400, L500.2500, L505.5000, L300.4310, L300.3900, L501.9100, L100.0100 ####[facility] [address] [place], [address] Chloride [Moles/Vol] 97 mmol/L Low 98-108 [facility] Comment on above: Performed By: #### L 501.2450, L500.3400, L500.2500, L505.5000, L300.4310, L300.3900, L501.9100, L100.0100 ####[facility] [address] [place], [address] CO2 [Moles/Vol] 20.5 mmol/L Low 21.0-32.0 [facility] Comment on above: Performed By: #### L 501.2450, L500.3400, L500.2500, L505.5000, L300.4310, L300.3900, L501.9100, L100.0100 ####[facility] [address] [place], [place], [address] Creatinine [Mass/Vol] 1.12 mg/dL Normal 0.70-1.20 [facility] Comment on above: Performed By: #### L 501.2450, L500.3400, L500.2500, L505.5000, L300.4310, L300.3900, L501.9100, L100.0100 ####[facility] [address] [place], [place], [address] ECRCL 47.33 ml/min Low 50-250 [facility] Comment on above: Performed By: #### L 501.2450, L500.3400, L500.2500, L505.5000, L300.4310, L300.3900, L501.9100, L100.0100 ####[facility] [address] [place], [place], [address] GAP 19 High 5-15 [facility] Comment on above: Performed By: #### L 501.2450, L500.3400, L500.2500, L505.5000, L300.4310, L300.3900, L501.9100, L100.0100 ####[facility] [address] [place], [place], [address] GFR/1.73 sq M.predicted among non-blacks MDRD (S/P/Bld) [Vol rate/Area] 50 mL/min/{1.73_m2} Low >60 [facility] Comment on above: Result Comment: mL/m in/1.73m2 CKD-EPI Creatinine Equation (2020) Performed By: #### L 501.2450, L500.3400, L500.2500, L505.5000, L300.4310, L300.3900, L501.9100, L100.0100 ####[facility] [address] [place], [address] Glucose [Mass/Vol] 183 mg/dL High 70-99 [facility] Comment on above: Performed By: #### L 501.2450, L500.3400, L500.2500, L505.5000, L300.4310, L300.3900, L501.9100, L100.0100 ####[facility] [address] [place], [address] Potassium [Moles/Vol] 4.1 mmol/L Normal 3.3-5.1 [facility] Comment on above: Performed By: #### L 501.2450, L500.3400, L500.2500, L505.5000, L300.4310, L300.3900, L501.9100, L100.0100 ####[facility] [address] [place], [address] Sodium [Moles/Vol] 137 mmol/L Normal 133-145 [facility] Comment on above: Performed By: #### L 501.2450, L500.3400, L500.2500, L505.5000, L300.4310, L300.3900, L501.9100, L100.0100 ####[facility] [address] [place], [address] Urea nitrogen [Mass/Vol] 15 mg/dL Normal 4-19 [facility] Comment on above: Performed By: #### L 501.2450, L500.3400, L500.2500, L505.5000, L300.4310, L300.3900, L501.9100, L100.0100 ####[facility] [address] [place], [address] Brain/Head without Contrasto n - Brain/Head without Contrast Normal [facility] CBC W/Diff, Automatedon 05-2 Absolute Lymph 2.40 X10 3/uL Normal 0.83-4.51 [facility] Comment on above: Performed By: #### L 501.2450, L500.3400, L500.2500, L505.5000, L300.4310, L300.3900, L501.9100, L100.0100 ####[facility] [address] [place], [address] Absolute Neut 8.7 X10 3/uL High 2.0-7.7 [facility] Comment on above: Performed By: #### L 501.2450, L500.3400, L500.2500, L505.5000, L300.4310, L300.3900, L501.9100, L100.0100 ####[facility] [address] [place], [address] Basophils/100 WBC (Bld) 0.4 % Normal 0-1 [facility] Comment on above: Performed By: #### L 501.2450, L500.3400, L500.2500, L505.5000, L300.4310, L300.3900, L501.9100, L100.0100 ####[facility] [address] [place], [address] Eosinophils/100 WBC (Bld) 1.2 % Normal 0-5 [facility] Comment on above: Performed By: #### L 501.2450, L500.3400, L500.2500, L505.5000, L300.4310, L300.3900, L501.9100, L100.0100 ####[facility] [address] [place], [address] Erythrocyte distribution width (RBC) [Ratio] 15.2 % High 11.6-14.6 [facility] Comment on above: Performed By: #### L 501.2450, L500.3400, L500.2500, L505.5000, L300.4310, L300.3900, L501.9100, L100.0100 ####[facility] [address] [place], [address] Hematocrit (Bld) [Volume fraction] 43.5 % Normal 37-47 [facility] Comment on above: Performed By: #### L 501.2450, L500.3400, L500.2500, L505.5000, L300.4310, L300.3900, L501.9100, L100.0100 ####[facility] [address] [place], [address] Hemoglobin (Bld) [Mass/Vol] 14.1 g/dL Normal 12.0-15.0 [facility] Comment on above: Performed By: #### L 501.2450, L500.3400, L500.2500, L505.5000, L300.4310, L300.3900, L501.9100, L100.0100 ####[facility] [address] [place], [address] IG% 0.500 Normal 0.0-0.9 [facility] Comment on above: Result Comment: IG% - Immature Granulocytes (promyelocytes, myelocytes andmetamyelocytes) > 1% indicates that a LEFT SHIFT is Present. Performed By: #### L 501.2450, L500.3400, L500.2500, L505.5000, L300.4310, L300.3900, L501.9100, L100.0100 ####[facility] [address] [place], [address] Lymphocytes/100 WBC (Bld) 19.5 % Normal 19-41 [facility] Comment on above: Performed By: #### L 501.2450, L500.3400, L500.2500, L505.5000, L300.4310, L300.3900, L501.9100, L100.0100 ####[facility] [address] [place], [address] MCH (RBC) [Entitic mass] 28.0 pg Normal 27.0-32.0 [facility] Comment on above: Performed By: #### L 501.2450, L500.3400, L500.2500, L505.5000, L300.4310, L300.3900, L501.9100, L100.0100 ####[facility] [address] [place], [address] MCHC (RBC) [Mass/Vol] 32.4 g/dL Normal 32-36 [facility] Comment on above: Performed By: #### L 501.2450, L500.3400, L500.2500, L505.5000, L300.4310, L300.3900, L501.9100, L100.0100 ####[facility] [address] [place], [address] MCV (RBC) [Entitic vol] 86.3 fL Normal 81-99 [facility] Comment on above: Performed By: #### L 501.2450, L500.3400, L500.2500, L505.5000, L300.4310, L300.3900, L501.9100, L100.0100 ####[facility] [address] [place], [address] Monocytes/100 WBC (Bld) 8.1 % Normal 0-10 [facility] Comment on above: Performed By: #### L 501.2450, L500.3400, L500.2500, L505.5000, L300.4310, L300.3900, L501.9100, L100.0100 ####[facility] [address] [place], [address] Neutrophils/100 WBC (Bld) 70.3 % High 47-70 [facility] Comment on above: Performed By: #### L 501.2450, L500.3400, L500.2500, L505.5000, L300.4310, L300.3900, L501.9100, L100.0100 ####[facility] [address] [place], [address] Nucleated RBC (Bld) [#/Vol] 0 10*3/uL Normal 0-5 [facility] Comment on above: Performed By: #### L 501.2450, L500.3400, L500.2500, L505.5000, L300.4310, L300.3900, L501.9100, L100.0100 ####[facility] [address] [place], [address] Platelet mean volume (Bld) [Entitic vol] 10.2 fL Normal 6.2-12.0 [facility] Comment on above: Performed By: #### L 501.2450, L500.3400, L500.2500, L505.5000, L300.4310, L300.3900, L501.9100, L100.0100 ####[facility] [address] [place], [address] Platelets (Bld) [#/Vol] 350 10*3/uL Normal 150-450 [facility] Comment on above: Performed By: #### L 501.2450, L500.3400, L500.2500, L505.5000, L300.4310, L300.3900, L501.9100, L100.0100 ####[facility] [address] [place], [address] RBC (Bld) [#/Vol] 5.04 10*6/uL Normal 4.2-5.4 [facility] Comment on above: Performed By: #### L 501.2450, L500.3400, L500.2500, L505.5000, L300.4310, L300.3900, L501.9100, L100.0100 ####[facility] [address] [place], [address] RDW SD 48.3 fl High 35.1-43.9 [facility] Comment on above: Performed By: #### L 501.2450, L500.3400, L500.2500, L505.5000, L300.4310, L300.3900, L501.9100, L100.0100 ####[facility] [address] [place], [address] WBC (Bld) [#/Vol] 12.3 10*3/uL High 4.4-11.0 [facility] Comment on above: Performed By: #### L 501.2450, L500.3400, L500.2500, L505.5000, L300.4310, L300.3900, L501.9100, L100.0100 ####[facility] [address] [place], [address] Chest 1 View (Portable)on Chest 1 View (Portable) Normal [facility] Emergency Department Summary on 01-07-2025 Emergency Department Summary Normal [facility] H AND P Exam - Hospitaliston 01-07-2025 H&P Exam - Hospitalist Normal [facility] L499.0042on 01-07-2025 Trop T High Sen 15 ng/L High <=14 [facility] Comment on above: Performed By: #### L 499.0042 ####[facility] [address] [place], [address] L501.4021on 01-07-2025 Trop T High Sen 16 ng/L High <=14 [facility] Comment on above: Performed By: #### L 501.9520, L501.4021 ####[facility] [address] [place], [address] Lactic Acidon 01-07-2025 Lactate [Moles/Vol] 2.0 mmol/L Normal 0.0-2.0 [facility] Comment on above: Order Comment: Y Result Comment: Crit ical Result(s) Called at: 2232 by:??FIORELLA HAVEN TO EMMATEAL Results read back by same. Performed By: #### L 503.6005 ####[facility] [address] [place], [address] Lipaseon 01-07-2025 Lipase [Catalytic activity/Vol] 29 U/L Normal 13-75 [facility] Comment on above: Result Comment: Beverly lindsay note:LIPASE revised reference range effective 22.New Lipase methodology. Expected to produce lower valuesthan the previous assay method.NEW Reference Range: 13 - 75 U/L Performed By: #### L 501.2450, L500.3400, L500.2500, L505.5000, L300.4310, L300.3900, L501.9100, L100.0100 ####[facility] [address] [place], [place], [id number] Liver Profileon 01-07-2025 Albumin [Mass/Vol] 4.0 g/dL Normal 3.4-4.8 [facility] Comment on above: Performed By: #### L 501.2450, L500.3400, L500.2500, L505.5000, L300.4310, L300.3900, L501.9100, L100.0100 ####[facility] [address] [place], [place], [id number] ALK PHOS 79 U/L Normal 35-104 [facility] Comment on above: Performed By: #### L 501.2450, L500.3400, L500.2500, L505.5000, L300.4310, L300.3900, L501.9100, L100.0100 ####[facility] [address] [place], [address] ALT [Catalytic activity/Vol] 30 U/L Normal <=34 [facility] Comment on above: Performed By: #### L 501.2450, L500.3400, L500.2500, L505.5000, L300.4310, L300.3900, L501.9100, L100.0100 ####[facility] [address] [place], [address] AST [Catalytic activity/Vol] 21 U/L Normal <=31 [facility] Comment on above: Performed By: #### L 501.2450, L500.3400, L500.2500, L505.5000, L300.4310, L300.3900, L501.9100, L100.0100 ####[facility] [address] [place], [address] Bilirubin [Mass/Vol] 0.26 mg/dL Normal 0.00-1.30 [facility] Comment on above: Performed By: #### L 501.2450, L500.3400, L500.2500, L505.5000, L300.4310, L300.3900, L501.9100, L100.0100 ####[facility] [address] [place], [address] Bilirubin.direct [Mass/Vol] 0.14 mg/dL Normal 0.00-0.30 [facility] Comment on above: Performed By: #### L 501.2450, L500.3400, L500.2500, L505.5000, L300.4310, L300.3900, L501.9100, L100.0100 ####[facility] [address] [place], [address] Globulin (S) [Mass/Vol] 3.0 g/dL Normal 2.2-4.2 [facility] Comment on above: Performed By: #### L 501.2450, L500.3400, L500.2500, L505.5000, L300.4310, L300.3900, L501.9100, L100.0100 ####[facility] [address] [place], [address] T PROT 7.0 g/dL Normal 5.9-8.4 [facility] Comment on above: Performed By: #### L 501.2450, L500.3400, L500.2500, L505.5000, L300.4310, L300.3900, L501.9100, L100.0100 ####[facility] [address] [place], [address] Partial Thromboplast Timeon 01-07-2025 aPTT Coag (Bld) [Time] 24.6 s Normal 24.1-36.2 [facility] Comment on above: Performed By: #### L 501.2450, L500.3400, L500.2500, L505.5000, L300.4310, L300.3900, L501.9100, L100.0100 ####[facility] [address] [place], [address] Prothrombin Time w/INRon INR Coag (PPP) [Relative time] 0.9 {INR} Normal [facility] Comment on above: Performed By: #### L 501.2450, L500.3400, L500.2500, L505.5000, L300.4310, L300.3900, L501.9100, L100.0100 ####[facility] [address] [place], [address] PT Coag (PPP) [Time] 12.7 s Normal 11.7-14.9 [facility] Comment on above: Performed By: #### L 501.2450, L500.3400, L500.2500, L505.5000, L300.4310, L300.3900, L501.9100, L100.0100 ####[facility] [address] [place], [address] Thyroid Stim Hormone (TSH)on 01-07-2025 TSH 5.620 uIU/mL High 0.300-4.200 [facility] Comment on above: Performed By: #### L 501.9520, L501.4021 ####[facility] [address] [place], [address] Urinalysis, Completeon 01-07 BACTERIA 1+ /hpf Normal None Seen [facility] Comment on above: Order Comment: CLEAN CATCH Performed By: #### L 400.0001 ####[facility] [address] [place], [address] RBC 0-5 SEEN Normal 0-5 [facility] Comment on above: Order Comment: CLEAN CATCH Performed By: #### L 400.0001 ####[facility] [address] [place], [address] WBC 10-25 SEEN Normal 0-5 [facility] Comment on above: Order Comment: CLEAN CATCH Performed By: #### L 400.0001 ####[facility] [address] [place], [address] EPI,SQUAMOUS 0 SEEN Normal 5-10 [facility] Comment on above: Order Comment: CLEAN CATCH Performed By: #### L 400.0001 ####[facility] [address] [place], [address] Mucus Ql (Urine sed) 0 SEEN Normal [facility] Comment on above: Order Comment: CLEAN CATCH Performed By: #### L 400.0001 ####[facility] [address] [place], [address] Urine Drug Screen (VISTA)on 01-07-2025 AMPHETAMINES Negative Normal <1000 ng/mL [facility] Comment on above: Performed By: #### L 501.2450, L500.3400, L500.2500, L505.5000, L300.4310, L300.3900, L501.9100, L100.0100 ####[facility] [address] [place], [address] BARBITIURATES Negative Normal < 200 ng/mL [facility] Comment on above: Performed By: #### L 501.2450, L500.3400, L500.2500, L505.5000, L300.4310, L300.3900, L501.9100, L100.0100 ####[facility] [address] [place], [address] BENZODIAZIPINE Negative Normal < 200 ng/mL [facility] Comment on above: Performed By: #### L 501.2450, L500.3400, L500.2500, L505.5000, L300.4310, L300.3900, L501.9100, L100.0100 ####[facility] [address] [place], [phone] BUP Ur Drug Scr Negative Normal < 200 ng/mL [facility] Comment on above: Performed By: #### L 501.2450, L500.3400, L500.2500, L505.5000, L300.4310, L300.3900, L501.9100, L100.0100 ####[facility] [address] [place], [address] COCAINE Negative Normal < 300 ng/mL [facility] Comment on above: Performed By: #### L 501.2450, L500.3400, L500.2500, L505.5000, L300.4310, L300.3900, L501.9100, L100.0100 ####[facility] [address] [place], [address] Fentanyl Negative Normal [facility] Comment on above: Performed By: #### L 501.2450, L500.3400, L500.2500, L505.5000, L300.4310, L300.3900, L501.9100, L100.0100 ####[facility] [address] [place], [place], [id number] METHADONE Negative Normal < 300 ng/mL [facility] Comment on above: Performed By: #### L 501.2450, L500.3400, L500.2500, L505.5000, L300.4310, L300.3900, L501.9100, L100.0100 ####[facility] [address] [place], [address] OPIATES Negative Normal < 300 ng/mL [facility] Comment on above: Performed By: #### L 501.2450, L500.3400, L500.2500, L505.5000, L300.4310, L300.3900, L501.9100, L100.0100 ####[facility] [address] [place], [address] OXYCODONE Negative Normal < 100 ng/mL [facility] Comment on above: Performed By: #### L 501.2450, L500.3400, L500.2500, L505.5000, L300.4310, L300.3900, L501.9100, L100.0100 ####[facility] [address] [place], [place], [phone] PCP Negative Normal < 25 ng/mL [facility] Comment on above: Performed By: #### L 501.2450, L500.3400, L500.2500, L505.5000, L300.4310, L300.3900, L501.9100, L100.0100 ####[facility] [address] [place], [address] THC Negative Normal < 50 ng/mL [facility] Comment on above: Performed By: #### L 501.2450, L500.3400, L500.2500, L505.5000, L300.4310, L300.3900, L501.9100, L100.0100 ####[facility] [address] [place], [place], [id number] MR/Sarah 12-26-2024 MR/BMS.BP Normal [facility] Spine Lumbar (Routine)on Spine Lumbar (Routine) Normal [facility] Shoulder min 2 Viewson 12-09 Shoulder min 2 Views Normal [facility] MR/BMS.BPon 12-03-2024 MR/BMS.BP Normal [facility] Basic Metabolic Profile (BMP )on 11-14-2024 BUN/CRE 21.4 RATIO High 10-20 [facility] Comment on above: Performed By: #### L 100.0100, L500.2500 ####[facility] [address] [place], [address] Calcium [Mass/Vol] 10.1 mg/dL Normal 7.6-11.0 [facility] Comment on above: Performed By: #### L 100.0100, L500.2500 ####[facility] [address] [place], [address] Chloride [Moles/Vol] 102 mmol/L Normal 98-108 [facility] Comment on above: Performed By: #### L 100.0100, L500.2500 ####[facility] [address] [place], [address] CO2 [Moles/Vol] 24.9 mmol/L Normal 21.0-32.0 [facility] Comment on above: Performed By: #### L 100.0100, L500.2500 ####[facility] [address] [place], [address] Creatinine [Mass/Vol] 0.94 mg/dL Normal 0.70-1.20 [facility] Comment on above: Performed By: #### L 100.0100, L500.2500 ####[facility] [address] [place], [address] ECRCL 58.42 ml/min Normal 50-250 [facility] Comment on above: Performed By: #### L 100.0100, L500.2500 ####[facility] [address] [place], [address] GAP 12 Normal 5-15 [facility] Comment on above: Performed By: #### L 100.0100, L500.2500 ####[facility] [address] [place], [address] GFR/1.73 sq M.predicted among non-blacks MDRD (S/P/Bld) [Vol rate/Area] 62 mL/min/{1.73_m2} Normal >60 [facility] Comment on above: Result Comment: mL/m in/1.73m2 CKD-EPI Creatinine Equation (2020) Performed By: #### L 100.0100, L500.2500 ####[facility] [address] [place], [address] Glucose [Mass/Vol] 104 mg/dL High 70-99 [facility] Comment on above: Performed By: #### L 100.0100, L500.2500 ####[facility] [address] [place], [address] Potassium [Moles/Vol] 4.7 mmol/L Normal 3.3-5.1 [facility] Comment on above: Performed By: #### L 100.0100, L500.2500 ####[facility] [address] [place], [address] Sodium [Moles/Vol] 139 mmol/L Normal 133-145 [facility] Comment on above: Performed By: #### L 100.0100, L500.2500 ####[facility] [address] [place], [address] Urea nitrogen [Mass/Vol] 20 mg/dL High 4-19 [facility] Comment on above: Performed By: #### L 100.0100, L500.2500 ####[facility] [address] [place], [address] CBC W/Diff, Automatedon 04-0 4-2024 Absolute Lymph 1.74 X10 3/uL Normal 0.83-4.51 [facility] Comment on above: Performed By: #### L 100.0100, L500.2500 ####[facility] [address] [place], [address] Absolute Neut 5.3 X10 3/uL Normal 2.0-7.7 [facility] Comment on above: Performed By: #### L 100.0100, L500.2500 ####[facility] [address] [place], [address] Basophils/100 WBC (Bld) 0.4 % Normal 0-1 [facility] Comment on above: Performed By: #### L 100.0100, L500.2500 ####[facility] [address] [place], [address] Eosinophils/100 WBC (Bld) 3.9 % Normal 0-5 [facility] Comment on above: Performed By: #### L 100.0100, L500.2500 ####[facility] [address] [place], [address] Erythrocyte distribution width (RBC) [Ratio] 15.3 % High 11.6-14.6 [facility] Comment on above: Performed By: #### L 100.0100, L500.2500 ####[facility] [address] [place], [address] Hematocrit (Bld) [Volume fraction] 42.2 % Normal 37-47 [facility] Comment on above: Performed By: #### L 100.0100, L500.2500 ####[facility] [address] [place], [address] Hemoglobin (Bld) [Mass/Vol] 13.7 g/dL Normal 12.0-15.0 [facility] Comment on above: Performed By: #### L 100.0100, L500.2500 ####[facility] [address] [place], [address] IG% 0.400 Normal 0.0-0.9 [facility] Comment on above: Result Comment: IG% - Immature Granulocytes (promyelocytes, myelocytes andmetamyelocytes) > 1% indicates that a LEFT SHIFT is Present. Performed By: #### L 100.0100, L500.2500 ####[facility] [address] [place], [address] Lymphocytes/100 WBC (Bld) 22.0 % Normal 19-41 [facility] Comment on above: Performed By: #### L 100.0100, L500.2500 ####[facility] [address] [place], [address] MCH (RBC) [Entitic mass] 27.6 pg Normal 27.0-32.0 [facility] Comment on above: Performed By: #### L 100.0100, L500.2500 ####[facility] [address] [place], [address] MCHC (RBC) [Mass/Vol] 32.5 g/dL Normal 32-36 [facility] Comment on above: Performed By: #### L 100.0100, L500.2500 ####[facility] [address] [place], [address] MCV (RBC) [Entitic vol] 85.1 fL Normal 81-99 [facility] Comment on above: Performed By: #### L 100.0100, L500.2500 ####[facility] [address] [place], [address] Monocytes/100 WBC (Bld) 6.4 % Normal 0-10 [facility] Comment on above: Performed By: #### L 100.0100, L500.2500 ####[facility] [address] [place], [address] Neutrophils/100 WBC (Bld) 66.9 % Normal 47-70 [facility] Comment on above: Performed By: #### L 100.0100, L500.2500 ####[facility] [address] [place], [address] Nucleated RBC (Bld) [#/Vol] 0 10*3/uL Normal 0-5 [facility] Comment on above: Performed By: #### L 100.0100, L500.2500 ####[facility] [address] [place], [address] Platelet mean volume (Bld) [Entitic vol] 9.5 fL Normal 6.2-12.0 [facility] Comment on above: Performed By: #### L 100.0100, L500.2500 ####[facility] [address] [place], [address] Platelets (Bld) [#/Vol] 349 10*3/uL Normal 150-450 [facility] Comment on above: Performed By: #### L 100.0100, L500.2500 ####[facility] [address] [place], [address] RBC (Bld) [#/Vol] 4.96 10*6/uL Normal 4.2-5.4 [facility] Comment on above: Performed By: #### L 100.0100, L500.2500 ####[facility] [address] [place], [address] RDW SD 46.8 fl High 35.1-43.9 [facility] Comment on above: Performed By: #### L 100.0100, L500.2500 ####[facility] [address] [place], [address] WBC (Bld) [#/Vol] 7.9 10*3/uL Normal 4.4-11.0 [facility] Comment on above: Performed By: #### L 100.0100, L500.2500 ####[facility] [address] [place], [address] Emergency Department Summary on 11-14-2024 Emergency Department Summary Normal [facility] Femur Min 2 Viewson 11-15-19 25 Femur Min 2 Views Normal [facility] HIP, UNI W/ Pelvis 2-3 Views on 11-14-2024 HIP, UNI W/ Pelvis 2-3 Views Normal [facility] Basic Metabolic Profile (BMP )on 10-22-2024 BUN Normal 4-19 [facility] Comment on above: Result Comment: Canc elled via OM: Order cancelled - Patient discharged Performed By: #### L 500.2500, L100.0100 ####[facility] [address] [place], [address] BUN/CRE Normal 10-20 [facility] Comment on above: Result Comment: Canc elled via OM: Order cancelled - Patient discharged Performed By: #### L 500.2500, L100.0100 ####[facility] [address] [place], [address] Calcium Normal 7.6-11.0 [facility] Comment on above: Result Comment: Canc elled via OM: Order cancelled - Patient discharged Performed By: #### L 500.2500, L100.0100 ####[facility] [address] [place], [address] CL Normal 98-108 [facility] Comment on above: Result Comment: Canc elled via OM: Order cancelled - Patient discharged Performed By: #### L 500.2500, L100.0100 ####[facility] [address] [place], [address] CO2 Normal 21.0-32.0 [facility] Comment on above: Result Comment: Canc elled via OM: Order cancelled - Patient discharged Performed By: #### L 500.2500, L100.0100 ####[facility] [address] [place], [address] CREAT,SERUM Normal 0.70-1.20 [facility] Comment on above: Result Comment: Canc elled via OM: Order cancelled - Patient discharged Performed By: #### L 500.2500, L100.0100 ####[facility] [address] [place], [address] eGFR Normal >60 [facility] Comment on above: Result Comment: Canc elled via OM: Order cancelled - Patient discharged Performed By: #### L 500.2500, L100.0100 ####[facility] [address] [place], [address] GAP Normal 5-15 [facility] Comment on above: Result Comment: Canc elled via OM: Order cancelled - Patient discharged Performed By: #### L 500.2500, L100.0100 ####[facility] [address] [place], [address] GLU Normal 70-99 [facility] Comment on above: Result Comment: Canc elled via OM: Order cancelled - Patient discharged Performed By: #### L 500.2500, L100.0100 ####[facility] [address] [place], [address] Potassium Normal 3.3-5.1 [facility] Comment on above: Result Comment: Canc elled via OM: Order cancelled - Patient discharged Performed By: #### L 500.2500, L100.0100 ####[facility] [address] [place], [address] Basic Metabolic Profile (BMP) Normal 133-145 [facility] Comment on above: Result Comment: Canc elled via OM: Order cancelled - Patient discharged Performed By: #### L 500.2500, L100.0100 ####[facility] [address] [place], [address] CBC W/Diff, Automatedon 03- Absolute Neut Normal 2.0-7.7 [facility] Comment on above: Result Comment: Canc elled via OM: Order cancelled - Patient discharged Performed By: #### L 500.2500, L100.0100 ####[facility] [address] [place], [address] HCT Normal 37-47 [facility] Comment on above: Result Comment: Canc elled via OM: Order cancelled - Patient discharged Performed By: #### L 500.2500, L100.0100 ####[facility] [address] [place], [address] HGB Normal 12.0-15.0 [facility] Comment on above: Result Comment: Canc elled via OM: Order cancelled - Patient discharged Performed By: #### L 500.2500, L100.0100 ####[facility] [address] [place], [address] MCH Normal 27.0-32.0 [facility] Comment on above: Result Comment: Canc elled via OM: Order cancelled - Patient discharged Performed By: #### L 500.2500, L100.0100 ####[facility] [address] [place], [address] MCHC Normal 32-36 [facility] Comment on above: Result Comment: Canc elled via OM: Order cancelled - Patient discharged Performed By: #### L 500.2500, L100.0100 ####[facility] [address] [place], [address] MCV Normal 81-99 [facility] Comment on above: Result Comment: Canc elled via OM: Order cancelled - Patient discharged Performed By: #### L 500.2500, L100.0100 ####[facility] [address] [place], [address] NEUT% Normal 47-70 [facility] Comment on above: Result Comment: Canc elled via OM: Order cancelled - Patient discharged Performed By: #### L 500.2500, L100.0100 ####[facility] [address] [place], [address] PLT Normal 150-450 [facility] Comment on above: Result Comment: Canc elled via OM: Order cancelled - Patient discharged Performed By: #### L 500.2500, L100.0100 ####[facility] [address] [place], [address] RBC Normal 4.2-5.4 [facility] Comment on above: Result Comment: Canc elled via OM: Order cancelled - Patient discharged Performed By: #### L 500.2500, L100.0100 ####[facility] [address] [place], [address] RDW CV Normal 11.6-14.6 [facility] Comment on above: Result Comment: Canc elled via OM: Order cancelled - Patient discharged Performed By: #### L 500.2500, L100.0100 ####[facility] [address] [place], [address] RDW SD Normal 35.1-43.9 [facility] Comment on above: Result Comment: Canc elled via OM: Order cancelled - Patient discharged Performed By: #### L 500.2500, L100.0100 ####[facility] [address] [place], [address] WBC Normal 4.4-11.0 [facility] Comment on above: Result Comment: Canc elled via OM: Order cancelled - Patient discharged Performed By: #### L 500.2500, L100.0100 ####[facility] [address] [place], [address] Basic Metabolic Profile (BMP )on 10-21-2024 BUN Normal 4-19 [facility] Comment on above: Result Comment: Canc elled via OM: Order cancelled - Patient discharged Performed By: #### L 100.0100, L500.2500 ####[facility] [address] [place], [address] BUN/CRE Normal 10-20 [facility] Comment on above: Result Comment: Canc elled via OM: Order cancelled - Patient discharged Performed By: #### L 100.0100, L500.2500 ####[facility] [address] [place], [address] Calcium Normal 7.6-11.0 [facility] Comment on above: Result Comment: Canc elled via OM: Order cancelled - Patient discharged Performed By: #### L 100.0100, L500.2500 ####[facility] [address] [place], [address] CL Normal 98-108 [facility] Comment on above: Result Comment: Canc elled via OM: Order cancelled - Patient discharged Performed By: #### L 100.0100, L500.2500 ####[facility] [address] [place], [address] CO2 Normal 21.0-32.0 [facility] Comment on above: Result Comment: Canc elled via OM: Order cancelled - Patient discharged Performed By: #### L 100.0100, L500.2500 ####[facility] [address] [place], [address] CREAT,SERUM Normal 0.70-1.20 [facility] Comment on above: Result Comment: Canc elled via OM: Order cancelled - Patient discharged Performed By: #### L 100.0100, L500.2500 ####[facility] [address] [place], [address] eGFR Normal >60 [facility] Comment on above: Result Comment: Canc elled via OM: Order cancelled - Patient discharged Performed By: #### L 100.0100, L500.2500 ####[facility] [address] [place], [address] GAP Normal 5-15 [facility] Comment on above: Result Comment: Canc elled via OM: Order cancelled - Patient discharged Performed By: #### L 100.0100, L500.2500 ####[facility] [address] [place], [address] GLU Normal 70-99 [facility] Comment on above: Result Comment: Canc elled via OM: Order cancelled - Patient discharged Performed By: #### L 100.0100, L500.2500 ####[facility] [address] [place], [address] Potassium Normal 3.3-5.1 [facility] Comment on above: Result Comment: Canc elled via OM: Order cancelled - Patient discharged Performed By: #### L 100.0100, L500.2500 ####[facility] [address] [place], [address] Basic Metabolic Profile (BMP) Normal 133-145 [facility] Comment on above: Result Comment: Canc elled via OM: Order cancelled - Patient discharged Performed By: #### L 100.0100, L500.2500 ####[facility] [address] [place], [address] CBC W/Diff, Automatedon - Absolute Neut Normal 2.0-7.7 [facility] Comment on above: Result Comment: Canc elled via OM: Order cancelled - Patient discharged Performed By: #### L 100.0100, L500.2500 ####[facility] [address] [place], [address] HCT Normal 37-47 [facility] Comment on above: Result Comment: Canc elled via OM: Order cancelled - Patient discharged Performed By: #### L 100.0100, L500.2500 ####[facility] [address] [place], [address] HGB Normal 12.0-15.0 [facility] Comment on above: Result Comment: Canc elled via OM: Order cancelled - Patient discharged Performed By: #### L 100.0100, L500.2500 ####[facility] [address] [place], [address] MCH Normal 27.0-32.0 [facility] Comment on above: Result Comment: Canc elled via OM: Order cancelled - Patient discharged Performed By: #### L 100.0100, L500.2500 ####[facility] [address] [place], [address] MCHC Normal 32-36 [facility] Comment on above: Result Comment: Canc elled via OM: Order cancelled - Patient discharged Performed By: #### L 100.0100, L500.2500 ####[facility] [address] [place], [address] MCV Normal 81-99 [facility] Comment on above: Result Comment: Canc elled via OM: Order cancelled - Patient discharged Performed By: #### L 100.0100, L500.2500 ####[facility] [address] [place], [address] NEUT% Normal 47-70 [facility] Comment on above: Result Comment: Canc elled via OM: Order cancelled - Patient discharged Performed By: #### L 100.0100, L500.2500 ####[facility] [address] [place], [address] PLT Normal 150-450 [facility] Comment on above: Result Comment: Canc elled via OM: Order cancelled - Patient discharged Performed By: #### L 100.0100, L500.2500 ####[facility] [address] [place], [address] RBC Normal 4.2-5.4 [facility] Comment on above: Result Comment: Canc elled via OM: Order cancelled - Patient discharged Performed By: #### L 100.0100, L500.2500 ####[facility] [address] [place], [address] RDW CV Normal 11.6-14.6 [facility] Comment on above: Result Comment: Canc elled via OM: Order cancelled - Patient discharged Performed By: #### L 100.0100, L500.2500 ####[facility] [address] [place], [address] RDW SD Normal 35.1-43.9 [facility] Comment on above: Result Comment: Canc elled via OM: Order cancelled - Patient discharged Performed By: #### L 100.0100, L500.2500 ####[facility] [address] [place], [address] WBC Normal 4.4-11.0 [facility] Comment on above: Result Comment: Canc elled via OM: Order cancelled - Patient discharged Performed By: #### L 100.0100, L500.2500 ####[facility] [address] [place], [address] L/S Spine Min 4 Viewson 10-11 L/S Spine Min 4 Views Normal [facility] Basic Metabolic Profile (BMP )on 10-20-2024 BUN Normal 4-19 [facility] Comment on above: Result Comment: Canc elled via OM: Order cancelled - Patient discharged Performed By: #### L 100.0100, L500.2500 ####[facility] [address] [place], [address] BUN/CRE Normal 10-20 [facility] Comment on above: Result Comment: Canc elled via OM: Order cancelled - Patient discharged Performed By: #### L 100.0100, L500.2500 ####[facility] [address] [place], [address] Calcium Normal 7.6-11.0 [facility] Comment on above: Result Comment: Canc elled via OM: Order cancelled - Patient discharged Performed By: #### L 100.0100, L500.2500 ####[facility] [address] [place], [address] CL Normal 98-108 [facility] Comment on above: Result Comment: Canc elled via OM: Order cancelled - Patient discharged Performed By: #### L 100.0100, L500.2500 ####[facility] [address] [place], [address] CO2 Normal 21.0-32.0 [facility] Comment on above: Result Comment: Canc elled via OM: Order cancelled - Patient discharged Performed By: #### L 100.0100, L500.2500 ####[facility] [address] [place], [address] CREAT,SERUM Normal 0.70-1.20 [facility] Comment on above: Result Comment: Canc elled via OM: Order cancelled - Patient discharged Performed By: #### L 100.0100, L500.2500 ####[facility] [address] [place], [address] eGFR Normal >60 [facility] Comment on above: Result Comment: Canc elled via OM: Order cancelled - Patient discharged Performed By: #### L 100.0100, L500.2500 ####[facility] [address] [place], [address] GAP Normal 5-15 [facility] Comment on above: Result Comment: Canc elled via OM: Order cancelled - Patient discharged Performed By: #### L 100.0100, L500.2500 ####[facility] [address] [place], [address] GLU Normal 70-99 [facility] Comment on above: Result Comment: Canc elled via OM: Order cancelled - Patient discharged Performed By: #### L 100.0100, L500.2500 ####[facility] [address] [place], [address] Potassium Normal 3.3-5.1 [facility] Comment on above: Result Comment: Canc elled via OM: Order cancelled - Patient discharged Performed By: #### L 100.0100, L500.2500 ####[facility] [address] [place], [address] Basic Metabolic Profile (BMP) Normal 133-145 [facility] Comment on above: Result Comment: Canc elled via OM: Order cancelled - Patient discharged Performed By: #### L 100.0100, L500.2500 ####[facility] [address] [place], [address] CBC W/Diff, Automatedon 03-1 0-2024 Absolute Neut Normal 2.0-7.7 [facility] Comment on above: Result Comment: Canc elled via OM: Order cancelled - Patient discharged Performed By: #### L 100.0100, L500.2500 ####[facility] [address] [place], [address] HCT Normal 37-47 [facility] Comment on above: Result Comment: Canc elled via OM: Order cancelled - Patient discharged Performed By: #### L 100.0100, L500.2500 ####[facility] [address] [place], [address] HGB Normal 12.0-15.0 [facility] Comment on above: Result Comment: Canc elled via OM: Order cancelled - Patient discharged Performed By: #### L 100.0100, L500.2500 ####[facility] [address] [place], [address] MCH Normal 27.0-32.0 [facility] Comment on above: Result Comment: Canc elled via OM: Order cancelled - Patient discharged Performed By: #### L 100.0100, L500.2500 ####[facility] [address] [place], [address] MCHC Normal 32-36 [facility] Comment on above: Result Comment: Canc elled via OM: Order cancelled - Patient discharged Performed By: #### L 100.0100, L500.2500 ####[facility] [address] [place], [address] MCV Normal 81-99 [facility] Comment on above: Result Comment: Canc elled via OM: Order cancelled - Patient discharged Performed By: #### L 100.0100, L500.2500 ####[facility] [address] [place], [address] NEUT% Normal 47-70 [facility] Comment on above: Result Comment: Canc elled via OM: Order cancelled - Patient discharged Performed By: #### L 100.0100, L500.2500 ####[facility] [address] [place], [address] PLT Normal 150-450 [facility] Comment on above: Result Comment: Canc elled via OM: Order cancelled - Patient discharged Performed By: #### L 100.0100, L500.2500 ####[facility] [address] [place], [address] RBC Normal 4.2-5.4 [facility] Comment on above: Result Comment: Canc elled via OM: Order cancelled - Patient discharged Performed By: #### L 100.0100, L500.2500 ####[facility] [address] [place], [address] RDW CV Normal 11.6-14.6 [facility] Comment on above: Result Comment: Canc elled via OM: Order cancelled - Patient discharged Performed By: #### L 100.0100, L500.2500 ####[facility] [address] [place], [address] RDW SD Normal 35.1-43.9 [facility] Comment on above: Result Comment: Canc elled via OM: Order cancelled - Patient discharged Performed By: #### L 100.0100, L500.2500 ####[facility] [address] [place], [address] WBC Normal 4.4-11.0 [facility] Comment on above: Result Comment: Canc elled via OM: Order cancelled - Patient discharged Performed By: #### L 100.0100, L500.2500 ####[facility] [address] [place], [address] Basic Metabolic Profile (BMP )on 10-19-2024 BUN Normal 4-19 [facility] Comment on above: Result Comment: Canc elled via OM: Order cancelled - Patient discharged Performed By: #### L 500.2500, L100.0100 ####[facility] [address] [place], [address] BUN/CRE Normal 10-20 [facility] Comment on above: Result Comment: Canc elled via OM: Order cancelled - Patient discharged Performed By: #### L 500.2500, L100.0100 ####[facility] [address] [place], [address] Calcium Normal 7.6-11.0 [facility] Comment on above: Result Comment: Canc elled via OM: Order cancelled - Patient discharged Performed By: #### L 500.2500, L100.0100 ####[facility] [address] [place], [address] CL Normal 98-108 [facility] Comment on above: Result Comment: Canc elled via OM: Order cancelled - Patient discharged Performed By: #### L 500.2500, L100.0100 ####[facility] [address] [place], [address] CO2 Normal 21.0-32.0 [facility] Comment on above: Result Comment: Canc elled via OM: Order cancelled - Patient discharged Performed By: #### L 500.2500, L100.0100 ####[facility] [address] [place], [address] CREAT,SERUM Normal 0.70-1.20 [facility] Comment on above: Result Comment: Canc elled via OM: Order cancelled - Patient discharged Performed By: #### L 500.2500, L100.0100 ####[facility] [address] [place], [address] eGFR Normal >60 [facility] Comment on above: Result Comment: Canc elled via OM: Order cancelled - Patient discharged Performed By: #### L 500.2500, L100.0100 ####[facility] [address] [place], [address] GAP Normal 5-15 [facility] Comment on above: Result Comment: Canc elled via OM: Order cancelled - Patient discharged Performed By: #### L 500.2500, L100.0100 ####[facility] [address] [place], [address] GLU Normal 70-99 [facility] Comment on above: Result Comment: Canc elled via OM: Order cancelled - Patient discharged Performed By: #### L 500.2500, L100.0100 ####[facility] [address] [place], [address] Potassium Normal 3.3-5.1 [facility] Comment on above: Result Comment: Canc elled via OM: Order cancelled - Patient discharged Performed By: #### L 500.2500, L100.0100 ####[facility] [address] [place], [address] Basic Metabolic Profile (BMP) Normal 133-145 [facility] Comment on above: Result Comment: Canc elled via OM: Order cancelled - Patient discharged Performed By: #### L 500.2500, L100.0100 ####[facility] [address] [place], [address] CBC W/Diff, Automatedon 03-0 Absolute Neut Normal 2.0-7.7 [facility] Comment on above: Result Comment: Canc elled via OM: Order cancelled - Patient discharged Performed By: #### L 500.2500, L100.0100 ####[facility] [address] [place], [address] HCT Normal 37-47 [facility] Comment on above: Result Comment: Canc elled via OM: Order cancelled - Patient discharged Performed By: #### L 500.2500, L100.0100 ####[facility] [address] [place], [address] HGB Normal 12.0-15.0 [facility] Comment on above: Result Comment: Canc elled via OM: Order cancelled - Patient discharged Performed By: #### L 500.2500, L100.0100 ####[facility] [address] [place], [address] MCH Normal 27.0-32.0 [facility] Comment on above: Result Comment: Canc elled via OM: Order cancelled - Patient discharged Performed By: #### L 500.2500, L100.0100 ####[facility] [address] [place], [address] MCHC Normal 32-36 [facility] [facility] Comment on above: Result Comment: Canc elled via OM: Order cancelled - Patient discharged Performed By: #### L 500.2500, L100.0100 ####[facility] [address] [place], [address] MCV Normal 81-99 [facility] Comment on above: Result Comment: Canc elled via OM: Order cancelled - Patient discharged Performed By: #### L 500.2500, L100.0100 ####[facility] [address] [place], [address] NEUT% Normal 47-70 [facility] Comment on above: Result Comment: Canc elled via OM: Order cancelled - Patient discharged Performed By: #### L 500.2500, L100.0100 ####[facility] [address] [place], [address] PLT Normal 150-450 [facility] Comment on above: Result Comment: Canc elled via OM: Order cancelled - Patient discharged Performed By: #### L 500.2500, L100.0100 ####[facility] [address] [place], [address] RBC Normal 4.2-5.4 [facility] Comment on above: Result Comment: Canc elled via OM: Order cancelled - Patient discharged Performed By: #### L 500.2500, L100.0100 ####[facility] [address] [place], [address] RDW CV Normal 11.6-14.6 [facility] Comment on above: Result Comment: Canc elled via OM: Order cancelled - Patient discharged Performed By: #### L 500.2500, L100.0100 ####[facility] [address] [place], [address] RDW SD Normal 35.1-43.9 [facility] Comment on above: Result Comment: Canc elled via OM: Order cancelled - Patient discharged Performed By: #### L 500.2500, L100.0100 ####[facility] [address] [place], [address] WBC Normal 4.4-11.0 [facility] Comment on above: Result Comment: Canc elled via OM: Order cancelled - Patient discharged Performed By: #### L 500.2500, L100.0100 ####[facility] [address] [place], [address] Basic Metabolic Profile (BMP )on 10-18-2024 BUN Normal 4-19 [facility] Comment on above: Result Comment: Canc elled via OM: Order cancelled - Patient discharged Performed By: #### L 100.0100, L500.2500 ####[facility] [address] [place], [address] BUN/CRE Normal 10-20 [facility] Comment on above: Result Comment: Canc elled via OM: Order cancelled - Patient discharged Performed By: #### L 100.0100, L500.2500 ####[facility] [address] [place], [address] Calcium Normal 7.6-11.0 [facility] Comment on above: Result Comment: Canc elled via OM: Order cancelled - Patient discharged Performed By: #### L 100.0100, L500.2500 ####[facility] [address] [place], [address] CL Normal 98-108 [facility] Comment on above: Result Comment: Canc elled via OM: Order cancelled - Patient discharged Performed By: #### L 100.0100, L500.2500 ####[facility] [address] [place], [address] CO2 Normal 21.0-32.0 [facility] Comment on above: Result Comment: Canc elled via OM: Order cancelled - Patient discharged Performed By: #### L 100.0100, L500.2500 ####[facility] [address] [place], [address] CREAT,SERUM Normal 0.70-1.20 [facility] Comment on above: Result Comment: Canc elled via OM: Order cancelled - Patient discharged Performed By: #### L 100.0100, L500.2500 ####[facility] [address] [place], [address] eGFR Normal >60 [facility] Comment on above: Result Comment: Canc elled via OM: Order cancelled - Patient discharged Performed By: #### L 100.0100, L500.2500 ####[facility] [address] [place], [address] GAP Normal 5-15 [facility] Comment on above: Result Comment: Canc elled via OM: Order cancelled - Patient discharged Performed By: #### L 100.0100, L500.2500 ####[facility] [address] [place], [address] GLU Normal 70-99 [facility] Comment on above: Result Comment: Canc elled via OM: Order cancelled - Patient discharged Performed By: #### L 100.0100, L500.2500 ####[facility] [address] [place], [address] Potassium Normal 3.3-5.1 [facility] Comment on above: Result Comment: Canc elled via OM: Order cancelled - Patient discharged Performed By: #### L 100.0100, L500.2500 ####[facility] [address] [place], [address] Basic Metabolic Profile (BMP) Normal 133-145 [facility] Comment on above: Result Comment: Canc elled via OM: Order cancelled - Patient discharged Performed By: #### L 100.0100, L500.2500 ####[facility] [address] [place], [address] CBC W/Diff, Automatedon 03-0 Absolute Neut Normal 2.0-7.7 [facility] Comment on above: Result Comment: Canc elled via OM: Order cancelled - Patient discharged Performed By: #### L 100.0100, L500.2500 ####[facility] [address] [place], [address] HCT Normal 37-47 [facility] Comment on above: Result Comment: Canc elled via OM: Order cancelled - Patient discharged Performed By: #### L 100.0100, L500.2500 ####[facility] [address] [place], [address] HGB Normal 12.0-15.0 [facility] Comment on above: Result Comment: Canc elled via OM: Order cancelled - Patient discharged Performed By: #### L 100.0100, L500.2500 ####[facility] [address] [place], [address] MCH Normal 27.0-32.0 [facility] Comment on above: Result Comment: Canc elled via OM: Order cancelled - Patient discharged Performed By: #### L 100.0100, L500.2500 ####[facility] [address] [place], [address] MCHC Normal 32-36 [facility] Comment on above: Result Comment: Canc elled via OM: Order cancelled - Patient discharged Performed By: #### L 100.0100, L500.2500 ####[facility] [address] [place], [address] MCV Normal 81-99 [facility] Comment on above: Result Comment: Canc elled via OM: Order cancelled - Patient discharged Performed By: #### L 100.0100, L500.2500 ####[facility] [address] [place], [address] NEUT% Normal 47-70 [facility] Comment on above: Result Comment: Canc elled via OM: Order cancelled - Patient discharged Performed By: #### L 100.0100, L500.2500 ####[facility] [address] [place], [address] PLT Normal 150-450 [facility] Comment on above: Result Comment: Canc elled via OM: Order cancelled - Patient discharged Performed By: #### L 100.0100, L500.2500 ####[facility] [address] [place], [address] RBC Normal 4.2-5.4 [facility] Comment on above: Result Comment: Canc elled via OM: Order cancelled - Patient discharged Performed By: #### L 100.0100, L500.2500 ####[facility] [address] [place], [address] RDW CV Normal 11.6-14.6 [facility] Comment on above: Result Comment: Canc elled via OM: Order cancelled - Patient discharged Performed By: #### L 100.0100, L500.2500 ####[facility] [address] [place], [address] RDW SD Normal 35.1-43.9 [facility] Comment on above: Result Comment: Canc elled via OM: Order cancelled - Patient discharged Performed By: #### L 100.0100, L500.2500 ####[facility] [address] [place], [address] WBC Normal 4.4-11.0 [facility] Comment on above: Result Comment: Canc elled via OM: Order cancelled - Patient discharged Performed By: #### L 100.0100, L500.2500 ####[facility] [address] [place], [address] Basic Metabolic Profile (BMP )on 10-17-2024 BUN/CRE 14.7 RATIO Normal 10-20 [facility] Comment on above: Performed By: #### L 500.2500, L100.0100 ####[facility] [address] [place], [address] Calcium [Mass/Vol] 9.0 mg/dL Normal 7.6-11.0 [facility] Comment on above: Performed By: #### L 500.2500, L100.0100 ####[facility] [address] [place], [address] Chloride [Moles/Vol] 107 mmol/L Normal 98-108 [facility] Comment on above: Performed By: #### L 500.2500, L100.0100 ####[facility] [address] [place], [address] CO2 [Moles/Vol] 22.0 mmol/L Normal 21.0-32.0 [facility] Comment on above: Performed By: #### L 500.2500, L100.0100 ####[facility] [address] [place], [address] Creatinine [Mass/Vol] 0.82 mg/dL Normal 0.70-1.20 [facility] Comment on above: Performed By: #### L 500.2500, L100.0100 ####[facility] [address] [place], [address] ECRCL 66.67 ml/min Normal 50-250 [facility] Comment on above: Performed By: #### L 500.2500, L100.0100 ####[facility] [address] [place], [address] GAP 11 Normal 5-15 [facility] Comment on above: Performed By: #### L 500.2500, L100.0100 ####[facility] [address] [place], [address] GFR/1.73 sq M.predicted among non-blacks MDRD (S/P/Bld) [Vol rate/Area] 73 mL/min/{1.73_m2} Normal >60 [facility] Comment on above: Result Comment: mL/m in/1.73m2 CKD-EPI Creatinine Equation (2020) Performed By: #### L 500.2500, L100.0100 ####[facility] [address] [place], [address] Glucose [Mass/Vol] 159 mg/dL High 70-99 [facility] Comment on above: Performed By: #### L 500.2500, L100.0100 ####[facility] [address] [place], [address] Potassium [Moles/Vol] 3.8 mmol/L Normal 3.3-5.1 [facility] Comment on above: Performed By: #### L 500.2500, L100.0100 ####[facility] [address] [place], [address] Sodium [Moles/Vol] 141 mmol/L Normal 133-145 [facility] Comment on above: Performed By: #### L 500.2500, L100.0100 ####[facility] [address] [place], [address] Urea nitrogen [Mass/Vol] 12 mg/dL Normal 4-19 [facility] Comment on above: Performed By: #### L 500.2500, L100.0100 ####[facility] [address] [place], [address] Bedside Glucoseon 10-17-2024 FINGERSTICK GLU 209 mg/dL High 74-106 [facility] Comment on above: Result Comment: GILDA GEMENT OF PATIENT CARE PER NURSING PROTOCOL Performed By: #### L 501.080 ####[facility] [address] [place], [address] FINGERSTICK GLU 157 mg/dL High 74-106 [facility] Comment on above: Result Comment: GILDA GEMENT OF PATIENT CARE PER NURSING PROTOCOL Performed By: #### L 501.080 ####[facility] [address] [place], [address] CBC W/Diff, Automatedon 03-0 -2024 Absolute Lymph 2.05 X10 3/uL Normal 0.83-4.51 [facility] Comment on above: Performed By: #### L 500.2500, L100.0100 ####[facility] [address] [place], [address] Absolute Neut 4.0 X10 3/uL Normal 2.0-7.7 [facility] Comment on above: Performed By: #### L 500.2500, L100.0100 ####[facility] [address] [place], [address] Basophils/100 WBC (Bld) 0.4 % Normal 0-1 [facility] Comment on above: Performed By: #### L 500.2500, L100.0100 ####[facility] [address] [place], [address] Eosinophils/100 WBC (Bld) 5.0 % Normal 0-5 [facility] Comment on above: Performed By: #### L 500.2500, L100.0100 ####[facility] [address] [place], [address] Erythrocyte distribution width (RBC) [Ratio] 15.0 % High 11.6-14.6 [facility] Comment on above: Performed By: #### L 500.2500, L100.0100 ####[facility] [address] [place], [address] Hematocrit (Bld) [Volume fraction] 37.2 % Normal 37-47 [facility] Comment on above: Performed By: #### L 500.2500, L100.0100 ####[facility] [address] [place], [address] Hemoglobin (Bld) [Mass/Vol] 12.2 g/dL Normal 12.0-15.0 [facility] Comment on above: Performed By: #### L 500.2500, L100.0100 ####[facility] [address] [place], [address] IG% 0.300 Normal 0.0-0.9 [facility] Comment on above: Result Comment: IG% - Immature Granulocytes (promyelocytes, myelocytes andmetamyelocytes) > 1% indicates that a LEFT SHIFT is Present. Performed By: #### L 500.2500, L100.0100 ####[facility] [address] [place], [address] Lymphocytes/100 WBC (Bld) 29.4 % Normal 19-41 [facility] Comment on above: Performed By: #### L 500.2500, L100.0100 ####[facility] [address] [place], [address] MCH (RBC) [Entitic mass] 27.5 pg Normal 27.0-32.0 [facility] Comment on above: Performed By: #### L 500.2500, L100.0100 ####[facility] [address] [place], [address] MCHC (RBC) [Mass/Vol] 32.8 g/dL Normal 32-36 [facility] Comment on above: Performed By: #### L 500.2500, L100.0100 ####[facility] [address] [place], [address] MCV (RBC) [Entitic vol] 84.0 fL Normal 81-99 [facility] Comment on above: Performed By: #### L 500.2500, L100.0100 ####[facility] [address] [place], [address] Monocytes/100 WBC (Bld) 7.9 % Normal 0-10 [facility] Comment on above: Performed By: #### L 500.2500, L100.0100 ####[facility] [address] [place], [address] Neutrophils/100 WBC (Bld) 57.0 % Normal 47-70 [facility] Comment on above: Performed By: #### L 500.2500, L100.0100 ####[facility] [address] [place], [address] Nucleated RBC (Bld) [#/Vol] 0 10*3/uL Normal 0-5 [facility] Comment on above: Performed By: #### L 500.2500, L100.0100 ####[facility] [address] [place], [address] Platelet mean volume (Bld) [Entitic vol] 9.8 fL Normal 6.2-12.0 [facility] Comment on above: Performed By: #### L 500.2500, L100.0100 ####[facility] [address] [place], [address] Platelets (Bld) [#/Vol] 256 10*3/uL Normal 150-450 [facility] Comment on above: Performed By: #### L 500.2500, L100.0100 ####[facility] [address] [place], [address] RBC (Bld) [#/Vol] 4.43 10*6/uL Normal 4.2-5.4 [facility] Comment on above: Performed By: #### L 500.2500, L100.0100 ####[facility] [address] [place], [address] RDW SD 45.6 fl High 35.1-43.9 [facility] Comment on above: Performed By: #### L 500.2500, L100.0100 ####[facility] [address] [place], [address] WBC (Bld) [#/Vol] 7.0 10*3/uL Normal 4.4-11.0 [facility] Comment on above: Performed By: #### L 500.2500, L100.0100 ####[facility] [address] [place], [address] Discharge Instructionon 030 Discharge Instruction Normal [facility] Basic Metabolic Profile (BMP )on 10-16-2024 BUN/CRE 12.4 RATIO Normal 10-20 [facility] Comment on above: Performed By: #### L 100.0100, L500.2500 ####[facility] [address] [place], [address] Calcium [Mass/Vol] 8.7 mg/dL Normal 7.6-11.0 [facility] Comment on above: Performed By: #### L 100.0100, L500.2500 ####[facility] [address] [place], [address] Chloride [Moles/Vol] 108 mmol/L Normal 98-108 [facility] Comment on above: Performed By: #### L 100.0100, L500.2500 ####[facility] [address] [place], [address] CO2 [Moles/Vol] 23.0 mmol/L Normal 21.0-32.0 [facility] Comment on above: Performed By: #### L 100.0100, L500.2500 ####[facility] [address] [place], [address] Creatinine [Mass/Vol] 0.79 mg/dL Normal 0.70-1.20 [facility] Comment on above: Performed By: #### L 100.0100, L500.2500 ####[facility] [address] [place], [address] ECRCL 68.34 ml/min Normal 50-250 [facility] Comment on above: Performed By: #### L 100.0100, L500.2500 ####[facility] [address] [place], [address] GAP 9 Normal 5-15 [facility] Comment on above: Performed By: #### L 100.0100, L500.2500 ####[facility] [address] [place], [address] GFR/1.73 sq M.predicted among non-blacks MDRD (S/P/Bld) [Vol rate/Area] 76 mL/min/{1.73_m2} Normal >60 [facility] Comment on above: Result Comment: mL/m in/1.73m2 CKD-EPI Creatinine Equation (2020) Performed By: #### L 100.0100, L500.2500 ####[facility] [address] [place], [address] Glucose [Mass/Vol] 170 mg/dL High 70-99 [facility] Comment on above: Performed By: #### L 100.0100, L500.2500 ####[facility] [address] [place], [address] Potassium [Moles/Vol] 3.9 mmol/L Normal 3.3-5.1 [facility] Comment on above: Performed By: #### L 100.0100, L500.2500 ####[facility] [address] [place], [address] Sodium [Moles/Vol] 140 mmol/L Normal 133-145 [facility] Comment on above: Performed By: #### L 100.0100, L500.2500 ####[facility] [address] [place], [address] Urea nitrogen [Mass/Vol] 10 mg/dL Normal 4-19 [facility] Comment on above: Performed By: #### L 100.0100, L500.2500 ####[facility] [address] [place], [address] Bedside Glucoseon 10-16-2024 FINGERSTICK GLU 166 mg/dL High 74-106 [facility] Comment on above: Result Comment: GILDA GEMENT OF PATIENT CARE PER NURSING PROTOCOL Performed By: #### L 501.080 ####[facility] [address] [place], [address] FINGERSTICK GLU 263 mg/dL High 74-106 [facility] Comment on above: Result Comment: GILDA GEMENT OF PATIENT CARE PER NURSING PROTOCOL Performed By: #### L 501.080 ####[facility] [address] [place], [address] FINGERSTICK GLU 257 mg/dL High 74-106 [facility] Comment on above: Result Comment: GILDA GEMENT OF PATIENT CARE PER NURSING PROTOCOL Performed By: #### L 501.080 ####[facility] [address] [place], [address] CBC W/Diff, Automatedon 03-0 Absolute Lymph 1.73 X10 3/uL Normal 0.83-4.51 [facility] Comment on above: Performed By: #### L 100.0100, L500.2500 ####[facility] [address] [place], [address] Absolute Neut 3.8 X10 3/uL Normal 2.0-7.7 [facility] Comment on above: Performed By: #### L 100.0100, L500.2500 ####[facility] [address] [place], [address] Basophils/100 WBC (Bld) 0.5 % Normal 0-1 [facility] Comment on above: Performed By: #### L 100.0100, L500.2500 ####[facility] [address] [place], [address] Eosinophils/100 WBC (Bld) 6.4 % High 0-5 [facility] Comment on above: Performed By: #### L 100.0100, L500.2500 ####[facility] [address] [place], [address] Erythrocyte distribution width (RBC) [Ratio] 14.9 % High 11.6-14.6 [facility] Comment on above: Performed By: #### L 100.0100, L500.2500 ####[facility] [address] [place], [address] Hematocrit (Bld) [Volume fraction] 35.4 % Low 37-47 [facility] Comment on above: Performed By: #### L 100.0100, L500.2500 ####[facility] [address] [place], [address] Hemoglobin (Bld) [Mass/Vol] 11.5 g/dL Low 12.0-15.0 [facility] Comment on above: Performed By: #### L 100.0100, L500.2500 ####[facility] [address] [place], [address] IG% 0.500 Normal 0.0-0.9 [facility] Comment on above: Result Comment: IG% - Immature Granulocytes (promyelocytes, myelocytes andmetamyelocytes) > 1% indicates that a LEFT SHIFT is Present. Performed By: #### L 100.0100, L500.2500 ####[facility] [address] [place], [address] Lymphocytes/100 WBC (Bld) 26.5 % Normal 19-41 [facility] Comment on above: Performed By: #### L 100.0100, L500.2500 ####[facility] [address] [place], [address] MCH (RBC) [Entitic mass] 27.4 pg Normal 27.0-32.0 [facility] Comment on above: Performed By: #### L 100.0100, L500.2500 ####[facility] [address] [place], [address] MCHC (RBC) [Mass/Vol] 32.5 g/dL Normal 32-36 [facility] Comment on above: Performed By: #### L 100.0100, L500.2500 ####[facility] [address] [place], [address] MCV (RBC) [Entitic vol] 84.3 fL Normal 81-99 [facility] [facility] Comment on above: Performed By: #### L 100.0100, L500.2500 ####[facility] [address] [place], [address] Monocytes/100 WBC (Bld) 8.0 % Normal 0-10 [facility] Comment on above: Performed By: #### L 100.0100, L500.2500 ####[facility] [address] [place], [address] Neutrophils/100 WBC (Bld) 58.1 % Normal 47-70 [facility] Comment on above: Performed By: #### L 100.0100, L500.2500 ####[facility] [address] [place], [address] Nucleated RBC (Bld) [#/Vol] 0 10*3/uL Normal 0-5 [facility] Comment on above: Performed By: #### L 100.0100, L500.2500 ####[facility] [address] [place], [address] Platelet mean volume (Bld) [Entitic vol] 10.1 fL Normal 6.2-12.0 [facility] Comment on above: Performed By: #### L 100.0100, L500.2500 ####[facility] [address] [place], [address] Platelets (Bld) [#/Vol] 249 10*3/uL Normal 150-450 [facility] Comment on above: Performed By: #### L 100.0100, L500.2500 ####[facility] [address] [place], [address] RBC (Bld) [#/Vol] 4.20 10*6/uL Normal 4.2-5.4 [facility] Comment on above: Performed By: #### L 100.0100, L500.2500 ####[facility] [address] [place], [address] RDW SD 45.5 fl High 35.1-43.9 [facility] Comment on above: Performed By: #### L 100.0100, L500.2500 ####[facility] [address] [place], [address] WBC (Bld) [#/Vol] 6.5 10*3/uL Normal 4.4-11.0 [facility] Comment on above: Performed By: #### L 100.0100, L500.2500 ####[facility] [address] [place], [address] Basic Metabolic Profile (BMP )on 10-15-2024 BUN/CRE 16.8 RATIO Normal 10-20 [facility] Comment on above: Performed By: #### L 100.0100, L500.2500 ####[facility] [address] [place], [address] Calcium [Mass/Vol] 8.7 mg/dL Normal 7.6-11.0 [facility] Comment on above: Performed By: #### L 100.0100, L500.2500 ####[facility] [address] [place], [address] Chloride [Moles/Vol] 108 mmol/L Normal 98-108 [facility] Comment on above: Performed By: #### L 100.0100, L500.2500 ####[facility] [address] [place], [address] CO2 [Moles/Vol] 22.0 mmol/L Normal 21.0-32.0 [facility] Comment on above: Performed By: #### L 100.0100, L500.2500 ####[facility] [address] [place], [address] Creatinine [Mass/Vol] 0.82 mg/dL Normal 0.70-1.20 [facility] Comment on above: Performed By: #### L 100.0100, L500.2500 ####[facility] [address] [place], [address] ECRCL 66.67 ml/min Normal 50-250 [facility] Comment on above: Performed By: #### L 100.0100, L500.2500 ####[facility] [address] [place], [address] GAP 10 Normal 5-15 [facility] Comment on above: Performed By: #### L 100.0100, L500.2500 ####[facility] [address] [place], [address] GFR/1.73 sq M.predicted among non-blacks MDRD (S/P/Bld) [Vol rate/Area] 73 mL/min/{1.73_m2} Normal >60 [facility] Comment on above: Result Comment: mL/m in/1.73m2 CKD-EPI Creatinine Equation (2020) Performed By: #### L 100.0100, L500.2500 ####[facility] [address] [place], [address] Glucose [Mass/Vol] 151 mg/dL High 70-99 [facility] Comment on above: Performed By: #### L 100.0100, L500.2500 ####[facility] [address] [place], [address] Potassium [Moles/Vol] 4.1 mmol/L Normal 3.3-5.1 [facility] Comment on above: Performed By: #### L 100.0100, L500.2500 ####[facility] [address] [place], [address] Sodium [Moles/Vol] 140 mmol/L Normal 133-145 [facility] Comment on above: Performed By: #### L 100.0100, L500.2500 ####[facility] [address] [place], [address] Urea nitrogen [Mass/Vol] 14 mg/dL Normal 4-19 [facility] Comment on above: Performed By: #### L 100.0100, L500.2500 ####[facility] [address] [place], [address] CBC W/Diff, Automatedon 03-0 5-2024 Absolute Lymph 2.26 X10 3/uL Normal 0.83-4.51 [facility] Comment on above: Performed By: #### L 100.0100, L500.2500 ####[facility] [address] [place], [address] Absolute Neut 3.8 X10 3/uL Normal 2.0-7.7 [facility] Comment on above: Performed By: #### L 100.0100, L500.2500 ####[facility] [address] [place], [address] Basophils/100 WBC (Bld) 0.4 % Normal 0-1 [facility] Comment on above: Performed By: #### L 100.0100, L500.2500 ####[facility] [address] [place], [address] Eosinophils/100 WBC (Bld) 6.5 % High 0-5 [facility] Comment on above: Performed By: #### L 100.0100, L500.2500 ####[facility] [address] [place], [address] Erythrocyte distribution width (RBC) [Ratio] 15.0 % High 11.6-14.6 [facility] Comment on above: Performed By: #### L 100.0100, L500.2500 ####[facility] [address] [place], [address] Hematocrit (Bld) [Volume fraction] 34.8 % Low 37-47 [facility] Comment on above: Performed By: #### L 100.0100, L500.2500 ####[facility] [address] [place], [address] Hemoglobin (Bld) [Mass/Vol] 11.5 g/dL Low 12.0-15.0 [facility] Comment on above: Performed By: #### L 100.0100, L500.2500 ####[facility] [address] [place], [address] IG% 0.300 Normal 0.0-0.9 [facility] Comment on above: Result Comment: IG% - Immature Granulocytes (promyelocytes, myelocytes andmetamyelocytes) > 1% indicates that a LEFT SHIFT is Present. Performed By: #### L 100.0100, L500.2500 ####[facility] [address] [place], [address] Lymphocytes/100 WBC (Bld) 31.8 % Normal 19-41 [facility] Comment on above: Performed By: #### L 100.0100, L500.2500 ####[facility] [address] [place], [address] MCH (RBC) [Entitic mass] 27.8 pg Normal 27.0-32.0 [facility] Comment on above: Performed By: #### L 100.0100, L500.2500 ####[facility] [address] [place], [address] MCHC (RBC) [Mass/Vol] 33.0 g/dL Normal 32-36 [facility] Comment on above: Performed By: #### L 100.0100, L500.2500 ####[facility] [address] [place], [address] MCV (RBC) [Entitic vol] 84.1 fL Normal 81-99 [facility] Comment on above: Performed By: #### L 100.0100, L500.2500 ####[facility] [address] [place], [address] Monocytes/100 WBC (Bld) 7.6 % Normal 0-10 [facility] Comment on above: Performed By: #### L 100.0100, L500.2500 ####[facility] [address] [place], [address] Neutrophils/100 WBC (Bld) 53.4 % Normal 47-70 [facility] Comment on above: Performed By: #### L 100.0100, L500.2500 ####[facility] [address] [place], [address] Nucleated RBC (Bld) [#/Vol] 0 10*3/uL Normal 0-5 [facility] Comment on above: Performed By: #### L 100.0100, L500.2500 ####[facility] [address] [place], [address] Platelet mean volume (Bld) [Entitic vol] 10.0 fL Normal 6.2-12.0 [facility] Comment on above: Performed By: #### L 100.0100, L500.2500 ####[facility] [address] [place], [address] Platelets (Bld) [#/Vol] 236 10*3/uL Normal 150-450 [facility] Comment on above: Performed By: #### L 100.0100, L500.2500 ####[facility] [address] [place], [address] RBC (Bld) [#/Vol] 4.14 10*6/uL Low 4.2-5.4 [facility] Comment on above: Performed By: #### L 100.0100, L500.2500 ####[facility] [address] [place], [address] RDW SD 46.0 fl High 35.1-43.9 [facility] Comment on above: Performed By: #### L 100.0100, L500.2500 ####[facility] [address] [place], [address] WBC (Bld) [#/Vol] 7.1 10*3/uL Normal 4.4-11.0 [facility] Comment on above: Performed By: #### L 100.0100, L500.2500 ####[facility] [address] [place], [address] Basic Metabolic Profile (BMP )on 10-14-2024 BUN/CRE 19.6 RATIO Normal 10-20 [facility] Comment on above: Performed By: #### L 100.0100, L500.2500 ####[facility] [address] [place], [address] Calcium [Mass/Vol] 8.9 mg/dL Normal 7.6-11.0 [facility] Comment on above: Performed By: #### L 100.0100, L500.2500 ####[facility] [address] [place], [address] Chloride [Moles/Vol] 108 mmol/L Normal 98-108 [facility] Comment on above: Performed By: #### L 100.0100, L500.2500 ####[facility] [address] [place], [address] CO2 [Moles/Vol] 24.0 mmol/L Normal 21.0-32.0 [facility] Comment on above: Performed By: #### L 100.0100, L500.2500 ####[facility] [address] [place], [address] Creatinine [Mass/Vol] 0.84 mg/dL Normal 0.70-1.20 [facility] Comment on above: Performed By: #### L 100.0100, L500.2500 ####[facility] [address] [place], [address] ECRCL 65.09 ml/min Normal 50-250 [facility] Comment on above: Performed By: #### L 100.0100, L500.2500 ####[facility] [address] [place], [address] GAP 10 Normal 5-15 [facility] Comment on above: Performed By: #### L 100.0100, L500.2500 ####[facility] [address] [place], [address] GFR/1.73 sq M.predicted among non-blacks MDRD (S/P/Bld) [Vol rate/Area] 71 mL/min/{1.73_m2} Normal >60 [facility] Comment on above: Result Comment: mL/m in/1.73m2 CKD-EPI Creatinine Equation (2020) Performed By: #### L 100.0100, L500.2500 ####[facility] [address] [place], [address] Glucose [Mass/Vol] 119 mg/dL High 70-99 [facility] Comment on above: Performed By: #### L 100.0100, L500.2500 ####[facility] [address] [place], [address] Potassium [Moles/Vol] 4.1 mmol/L Normal 3.3-5.1 [facility] Comment on above: Performed By: #### L 100.0100, L500.2500 ####[facility] [address] [place], [address] Sodium [Moles/Vol] 142 mmol/L Normal 133-145 [facility] Comment on above: Performed By: #### L 100.0100, L500.2500 ####[facility] [address] [place], [address] Urea nitrogen [Mass/Vol] 17 mg/dL Normal 4-19 [facility] Comment on above: Performed By: #### L 100.0100, L500.2500 ####[facility] [address] [place], [address] CBC W/Diff, Automatedon 03-0 -2024 Absolute Lymph 2.38 X10 3/uL Normal 0.83-4.51 [facility] Comment on above: Performed By: #### L 100.0100, L500.2500 ####[facility] [address] [place], [address] Absolute Neut 3.5 X10 3/uL Normal 2.0-7.7 [facility] Comment on above: Performed By: #### L 100.0100, L500.2500 ####[facility] [address] [place], [address] Basophils/100 WBC (Bld) 0.6 % Normal 0-1 [facility] Comment on above: Performed By: #### L 100.0100, L500.2500 ####[facility] [address] [place], [address] Eosinophils/100 WBC (Bld) 4.4 % Normal 0-5 [facility] Comment on above: Performed By: #### L 100.0100, L500.2500 ####[facility] [address] [place], [address] Erythrocyte distribution width (RBC) [Ratio] 15.1 % High 11.6-14.6 [facility] Comment on above: Performed By: #### L 100.0100, L500.2500 ####[facility] [address] [place], [address] Hematocrit (Bld) [Volume fraction] 32.6 % Low 37-47 [facility] Comment on above: Performed By: #### L 100.0100, L500.2500 ####[facility] [address] [place], [address] Hemoglobin (Bld) [Mass/Vol] 10.8 g/dL Low 12.0-15.0 [facility] Comment on above: Performed By: #### L 100.0100, L500.2500 ####[facility] [address] [place], [address] IG% 0.300 Normal 0.0-0.9 [facility] Comment on above: Result Comment: IG% - Immature Granulocytes (promyelocytes, myelocytes andmetamyelocytes) > 1% indicates that a LEFT SHIFT is Present. Performed By: #### L 100.0100, L500.2500 ####[facility] [address] [place], [address] Lymphocytes/100 WBC (Bld) 35.2 % Normal 19-41 [facility] Comment on above: Performed By: #### L 100.0100, L500.2500 ####[facility] [address] [place], [address] MCH (RBC) [Entitic mass] 28.0 pg Normal 27.0-32.0 [facility] Comment on above: Performed By: #### L 100.0100, L500.2500 ####[facility] [address] [place], [address] MCHC (RBC) [Mass/Vol] 33.1 g/dL Normal 32-36 [facility] Comment on above: Performed By: #### L 100.0100, L500.2500 ####[facility] [address] [place], [address] MCV (RBC) [Entitic vol] 84.5 fL Normal 81-99 [facility] Comment on above: Performed By: #### L 100.0100, L500.2500 ####[facility] [address] [place], [address] Monocytes/100 WBC (Bld) 7.5 % Normal 0-10 [facility] Comment on above: Performed By: #### L 100.0100, L500.2500 ####[facility] [address] [place], [address] Neutrophils/100 WBC (Bld) 52.0 % Normal 47-70 [facility] Comment on above: Performed By: #### L 100.0100, L500.2500 ####[facility] [address] [place], [address] Nucleated RBC (Bld) [#/Vol] 0 10*3/uL Normal 0-5 [facility] Comment on above: Performed By: #### L 100.0100, L500.2500 ####[facility] [address] [place], [address] Platelet mean volume (Bld) [Entitic vol] 10.2 fL Normal 6.2-12.0 [facility] Comment on above: Performed By: #### L 100.0100, L500.2500 ####[facility] [address] [place], [address] Platelets (Bld) [#/Vol] 238 10*3/uL Normal 150-450 [facility] Comment on above: Performed By: #### L 100.0100, L500.2500 ####[facility] [address] [place], [address] RBC (Bld) [#/Vol] 3.86 10*6/uL Low 4.2-5.4 [facility] Comment on above: Performed By: #### L 100.0100, L500.2500 ####[facility] [address] [place], [address] RDW SD 46.1 fl High 35.1-43.9 [facility] Comment on above: Performed By: #### L 100.0100, L500.2500 ####[facility] [address] [place], [address] WBC (Bld) [#/Vol] 6.8 10*3/uL Normal 4.4-11.0 [facility] Comment on above: Performed By: #### L 100.0100, L500.2500 ####[facility] [address] [place], [address] 12 Lead EKGon 10-13-2024 12 Lead EKG Normal [facility] Basic Metabolic Profile (BMP )on 10-13-2024 Calcium [Mass/Vol] 9.7 mg/dL Normal 7.6-11.0 [facility] Comment on above: Performed By: #### L 500.2500, L300.4310, L300.3900, L100.0100 ####[facility] [address] [place], [address] Chloride [Moles/Vol] 97 mmol/L Low 98-108 [facility] Comment on above: Performed By: #### L 500.2500, L300.4310, L300.3900, L100.0100 ####[facility] [address] [place], [address] CO2 [Moles/Vol] 19.2 mmol/L Low 21.0-32.0 [facility] Comment on above: Performed By: #### L 500.2500, L300.4310, L300.3900, L100.0100 ####[facility] [address] [place], [address] GAP 16 High 5-15 [facility] Comment on above: Performed By: #### L 500.2500, L300.4310, L300.3900, L100.0100 ####[facility] [address] [place], [address] Potassium [Moles/Vol] 5.0 mmol/L Normal 3.3-5.1 [facility] Comment on above: Performed By: #### L 500.2500, L300.4310, L300.3900, L100.0100 ####[facility] [address] [place], [address] Sodium [Moles/Vol] 132 mmol/L Low 133-145 [facility] Comment on above: Performed By: #### L 500.2500, L300.4310, L300.3900, L100.0100 ####[facility] [address] [place], [address] CBC W/Diff, Automatedon 03-0 3-2024 Absolute Lymph 1.39 X10 3/uL Normal 0.83-4.51 [facility] Comment on above: Performed By: #### L 500.2500, L300.4310, L300.3900, L100.0100 ####[facility] [address] [place], [address] Absolute Neut 8.2 X10 3/uL High 2.0-7.7 [facility] Comment on above: Performed By: #### L 500.2500, L300.4310, L300.3900, L100.0100 ####[facility] [address] [place], [address] Basophils/100 WBC (Bld) 0.2 % Normal 0-1 [facility] Comment on above: Performed By: #### L 500.2500, L300.4310, L300.3900, L100.0100 ####[facility] [address] [facility] [address] Eosinophils/100 WBC (Bld) 1.0 % Normal 0-5 [facility] Comment on above: Performed By: #### L 500.2500, L300.4310, L300.3900, L100.0100 ####[facility] [address] [place], [address] Erythrocyte distribution width (RBC) [Ratio] 14.7 % High 11.6-14.6 [facility] Comment on above: Performed By: #### L 500.2500, L300.4310, L300.3900, L100.0100 ####[facility] [address] [place], [address] Hematocrit (Bld) [Volume fraction] 37.4 % Normal 37-47 [facility] Comment on above: Performed By: #### L 500.2500, L300.4310, L300.3900, L100.0100 ####[facility] [address] [place], [address] Hemoglobin (Bld) [Mass/Vol] 11.9 g/dL Low 12.0-15.0 [facility] Comment on above: Performed By: #### L 500.2500, L300.4310, L300.3900, L100.0100 ####[facility] [address] [place], [address] IG% 0.500 Normal 0.0-0.9 [facility] Comment on above: Result Comment: IG% - Immature Granulocytes (promyelocytes, myelocytes andmetamyelocytes) > 1% indicates that a LEFT SHIFT is Present. Performed By: #### L 500.2500, L300.4310, L300.3900, L100.0100 ####[facility] [address] [place], [address] Lymphocytes/100 WBC (Bld) 13.7 % Low 19-41 [facility] Comment on above: Performed By: #### L 500.2500, L300.4310, L300.3900, L100.0100 ####[facility] [address] [place], [address] MCH (RBC) [Entitic mass] 27.1 pg Normal 27.0-32.0 [facility] Comment on above: Performed By: #### L 500.2500, L300.4310, L300.3900, L100.0100 ####[facility] [address] [place], [address] MCHC (RBC) [Mass/Vol] 31.8 g/dL Low 32-36 [facility] Comment on above: Performed By: #### L 500.2500, L300.4310, L300.3900, L100.0100 ####[facility] [address] [place], [address] MCV (RBC) [Entitic vol] 85.2 fL Normal 81-99 [facility] Comment on above: Performed By: #### L 500.2500, L300.4310, L300.3900, L100.0100 ####[facility] [address] [place], [address] Monocytes/100 WBC (Bld) 4.5 % Normal 0-10 [facility] Comment on above: Performed By: #### L 500.2500, L300.4310, L300.3900, L100.0100 ####[facility] [address] [place], [address] Neutrophils/100 WBC (Bld) 80.1 % High 47-70 [facility] Comment on above: Performed By: #### L 500.2500, L300.4310, L300.3900, L100.0100 ####[facility] [address] [place], [address] Nucleated RBC (Bld) [#/Vol] 0 10*3/uL Normal 0-5 [facility] Comment on above: Performed By: #### L 500.2500, L300.4310, L300.3900, L100.0100 ####[facility] [address] [place], [address] Platelet mean volume (Bld) [Entitic vol] 10.2 fL Normal 6.2-12.0 [facility] Comment on above: Performed By: #### L 500.2500, L300.4310, L300.3900, L100.0100 ####[facility] [address] [place], [address] Platelets (Bld) [#/Vol] 285 10*3/uL Normal 150-450 [facility] Comment on above: Performed By: #### L 500.2500, L300.4310, L300.3900, L100.0100 ####[facility] [address] [place], [address] RBC (Bld) [#/Vol] 4.39 10*6/uL Normal 4.2-5.4 [facility] Comment on above: Performed By: #### L 500.2500, L300.4310, L300.3900, L100.0100 ####[facility] [address] [place], [address] RDW SD 45.9 fl High 35.1-43.9 [facility] Comment on above: Performed By: #### L 500.2500, L300.4310, L300.3900, L100.0100 ####[facility] [address] [place], [address] WBC (Bld) [#/Vol] 10.2 10*3/uL Normal 4.4-11.0 [facility] Comment on above: Performed By: #### L 500.2500, L300.4310, L300.3900, L100.0100 ####[facility] [address] [place], [address] Emergency Department Summary on 10-13-2024 Emergency Department Summary Normal [facility] Partial Thromboplast Timeon 10-13-2024 aPTT Coag (Bld) [Time] 23.3 s Low 24.1-36.2 [facility] Comment on above: Performed By: #### L 500.2500, L300.4310, L300.3900, L100.0100 ####[facility] [address] [place], [address] Prothrombin Time w/INRon INR Coag (PPP) [Relative time] 1.0 {INR} Normal [facility] Comment on above: Performed By: #### L 500.2500, L300.4310, L300.3900, L100.0100 ####[facility] [address] [place], [address] PT Coag (PPP) [Time] 13.4 s Normal 11.7-14.9 [facility] Comment on above: Performed By: #### L 500.2500, L300.4310, L300.3900, L100.0100 ####[facility] [address] [place], [address] Urine Cultureon 10-10-2024 URC Normal [facility] Comment on above: Performed By: #### M 100.2200 ####[facility] [address] [place], [address] L/S Spine Min 4 Viewson 09-14 L/S Spine Min 4 Views Normal [facility] MR/BMS.BPon 09-05-2024 MR/BMS.BP Normal [facility] SCRN MAMM (CAD)W/MANPREET BILATo n 09-04-2024 SCRN MAMM (CAD)W/MANPREET BILAT Normal [facility] Urine Cultureon 09-04-2024 URC Normal [facility] Comment on above: Performed By: #### M 100.2200 ####[facility] [address] [place], [address] MR/BMS.BPon 06-11-2024 MR/BMS.BP Normal [facility] Re-Evaluation - PT (1)on Re-Evaluation - PT (1) Normal [facility] Neurology Visit Reporton Neurology Visit Report Normal [facility] CBC W/Diff, Automatedon Absolute Lymph 1.97 X10 3/uL Normal 0.83-4.51 [facility] Comment on above: Performed By: #### L 100.0100, L500.4050, L506.1000, L501.9520 ####[facility] [address] [place], [address] Absolute Neut 4.7 X10 3/uL Normal 2.0-7.7 [facility] Comment on above: Performed By: #### L 100.0100, L500.4050, L506.1000, L501.9520 ####[facility] [address] [place], [address] Basophils/100 WBC (Bld) 0.4 % Normal 0-1 [facility] Comment on above: Performed By: #### L 100.0100, L500.4050, L506.1000, L501.9520 ####[facility] [address] [place], [address] Eosinophils/100 WBC (Bld) 4.4 % Normal 0-5 [facility] Comment on above: Performed By: #### L 100.0100, L500.4050, L506.1000, L501.9520 ####[facility] [address] [place], [address] Erythrocyte distribution width (RBC) [Ratio] 14.7 % High 11.6-14.6 [facility] Comment on above: Performed By: #### L 100.0100, L500.4050, L506.1000, L501.9520 ####[facility] [address] [place], [address] Hematocrit (Bld) [Volume fraction] 42.0 % Normal 37-47 [facility] Comment on above: Performed By: #### L 100.0100, L500.4050, L506.1000, L501.9520 ####[facility] [address] [place], [address] Hemoglobin (Bld) [Mass/Vol] 13.4 g/dL Normal 12.0-15.0 [facility] Comment on above: Performed By: #### L 100.0100, L500.4050, L506.1000, L501.9520 ####[facility] [address] [place], [address] IG% 0.400 Normal 0.0-0.9 [facility] Comment on above: Result Comment: IG% - Immature Granulocytes (promyelocytes, myelocytes andmetamyelocytes) > 1% indicates that a LEFT SHIFT is Present. Performed By: #### L 100.0100, L500.4050, L506.1000, L501.9520 ####[facility] [address] [place], [address] Lymphocytes/100 WBC (Bld) 26.3 % Normal 19-41 [facility] Comment on above: Performed By: #### L 100.0100, L500.4050, L506.1000, L501.9520 ####[facility] [address] [place], [address] MCH (RBC) [Entitic mass] 27.0 pg Normal 27.0-32.0 [facility] Comment on above: Performed By: #### L 100.0100, L500.4050, L506.1000, L501.9520 ####[facility] [address] [place], [address] MCHC (RBC) [Mass/Vol] 31.9 g/dL Low 32-36 [facility] Comment on above: Performed By: #### L 100.0100, L500.4050, L506.1000, L501.9520 ####[facility] [address] [place], [address] MCV (RBC) [Entitic vol] 84.7 fL Normal 81-99 [facility] Comment on above: Performed By: #### L 100.0100, L500.4050, L506.1000, L501.9520 ####[facility] [address] [place], [address] Monocytes/100 WBC (Bld) 6.1 % Normal 0-10 [facility] Comment on above: Performed By: #### L 100.0100, L500.4050, L506.1000, L501.9520 ####[facility] [address] [place], [address] Neutrophils/100 WBC (Bld) 62.4 % Normal 47-70 [facility] Comment on above: Performed By: #### L 100.0100, L500.4050, L506.1000, L501.9520 ####[facility] [address] [place], [address] Nucleated RBC (Bld) [#/Vol] 0 10*3/uL Normal 0-5 [facility] Comment on above: Performed By: #### L 100.0100, L500.4050, L506.1000, L501.9520 ####[facility] [address] [place], [address] Platelet mean volume (Bld) [Entitic vol] 10.0 fL Normal 6.2-12.0 [facility] Comment on above: Performed By: #### L 100.0100, L500.4050, L506.1000, L501.9520 ####[facility] [address] [place], [address] Platelets (Bld) [#/Vol] 284 10*3/uL Normal 150-450 [facility] Comment on above: Performed By: #### L 100.0100, L500.4050, L506.1000, L501.9520 ####[facility] [address] [place], [address] RBC (Bld) [#/Vol] 4.96 10*6/uL Normal 4.2-5.4 [facility] Comment on above: Performed By: #### L 100.0100, L500.4050, L506.1000, L501.9520 ####[facility] [address] [place], [address] RDW SD 45.0 fl High 35.1-43.9 [facility] Comment on above: Performed By: #### L 100.0100, L500.4050, L506.1000, L501.9520 ####[facility] [address] [place], [address] WBC (Bld) [#/Vol] 7.5 10*3/uL Normal 4.4-11.0 [facility] Comment on above: Performed By: #### L 100.0100, L500.4050, L506.1000, L501.9520 ####[facility] [address] [place], [address] Comprehensive Metabolic [facility] 05-14-2024 Albumin [Mass/Vol] 3.4 g/dL Normal 3.2-5.0 [facility] Comment on above: Performed By: #### L 100.0100, L500.4050, L506.1000, L501.9520 ####[facility] [address] [place], [address] Albumin/Globulin [Mass ratio] 0.9 {ratio} Normal 0.9-2.4 [facility] Comment on above: Performed By: #### L 100.0100, L500.4050, L506.1000, L501.9520 ####[facility] [address] [place], [address] ALK P 66 U/L Normal 45-117 [facility] Comment on above: Performed By: #### L 100.0100, L500.4050, L506.1000, L501.9520 ####[facility] [address] [place], [address] ALT [Catalytic activity/Vol] 26 U/L Normal 13-56 [facility] Comment on above: Performed By: #### L 100.0100, L500.4050, L506.1000, L501.9520 ####[facility] [address] [place], [address] AST [Catalytic activity/Vol] 19 U/L Normal 15-37 [facility] Comment on above: Performed By: #### L 100.0100, L500.4050, L506.1000, L501.9520 ####[facility] [address] [place], [address] Bilirubin [Mass/Vol] 0.50 mg/dL Normal 0.20-1.00 [facility] Comment on above: Result Comment: For patients on eltrombopag therapy, use of Dimension [place] TBIL is not recommended. Performed By: #### L 100.0100, L500.4050, L506.1000, L501.9520 ####[facility] [address] [place], [address] BUN/CRE 13.3 RATIO Normal 10-20 [facility] Comment on above: Performed By: #### L 100.0100, L500.4050, L506.1000, L501.9520 ####[facility] [address] [place], [address] CA,Total 9.6 mg/dL Normal 8.5-10.1 [facility] Comment on above: Performed By: #### L 100.0100, L500.4050, L506.1000, L501.9520 ####[facility] [address] [place], [address] Chloride [Moles/Vol] 106 mmol/L Normal 98-107 [facility] Comment on above: Performed By: #### L 100.0100, L500.4050, L506.1000, L501.9520 ####[facility] [address] [place], [address] CO2 [Moles/Vol] 25.0 mmol/L Normal 21.0-32.0 [facility] Comment on above: Performed By: #### L 100.0100, L500.4050, L506.1000, L501.9520 ####[facility] [address] [place], [address] Creatinine [Mass/Vol] 1.20 mg/dL High 0.55-1.02 [facility] Comment on above: Result Comment: The validity of the calculated GFR GFRAA in patients over70 years has not been determined. Clinical correlation isessential. Performed By: #### L 100.0100, L500.4050, L506.1000, L501.9520 ####[facility] [address] [place], [address] EST GFR - AA 56 mL/min Low >60 [facility] Comment on above: Result Comment: Afri can French GFR Calc Performed By: #### L 100.0100, L500.4050, L506.1000, L501.9520 ####[facility] [address] [place], [address] GAP 8 Normal 5-15 [facility] Comment on above: Performed By: #### L 100.0100, L500.4050, L506.1000, L501.9520 ####[facility] [address] [place], [address] GFR/1.73 sq M.predicted among non-blacks MDRD (S/P/Bld) [Vol rate/Area] 46 mL/min/{1.73_m2} Low >60 [facility] Comment on above: Result Comment: Non- GFR Calc Performed By: #### L 100.0100, L500.4050, L506.1000, L501.9520 ####[facility] [address] [place], [address] Globulin (S) [Mass/Vol] 3.7 g/dL Normal 2.2-4.2 [facility] Comment on above: Performed By: #### L 100.0100, L500.4050, L506.1000, L501.9520 ####[facility] [address] [place], [address] Glucose [Mass/Vol] 182 mg/dL High 74-106 [facility] Comment on above: Result Comment: Fast ing Glucose result greater than or equal to 126 mg/dLsuggests DIABETES MELLITUS per A.D.A. criteria. Performed By: #### L 100.0100, L500.4050, L506.1000, L501.9520 ####[facility] [address] [place], [address] Potassium [Moles/Vol] 4.7 mmol/L Normal 3.5-5.1 [facility] Comment on above: Performed By: #### L 100.0100, L500.4050, L506.1000, L501.9520 ####[facility] [address] [place], [address] Sodium [Moles/Vol] 138 mmol/L Normal 136-145 [facility] Comment on above: Performed By: #### L 100.0100, L500.4050, L506.1000, L501.9520 ####[facility] [address] [place], [address] T PROT 7.1 g/dL Normal 6.4-8.2 [facility] Comment on above: Performed By: #### L 100.0100, L500.4050, L506.1000, L501.9520 ####[facility] [address] [place], [address] Urea nitrogen [Mass/Vol] 16 mg/dL Normal 7-18 [facility] Comment on above: Performed By: #### L 100.0100, L500.4050, L506.1000, L501.9520 ####[facility] [address] [place], [address] Thyroid Stim Hormone (TSH)on 05-14-2024 TSH 0.468 uIU/mL Normal 0.358-3.740 [facility] Comment on above: Performed By: #### L 100.0100, L500.4050, L506.1000, L501.9520 ####[facility] [address] [place], [address] Vitamin D,25 Hydroxyon 05-14 Vitamin D 25-OH 56.7 ng/mL Normal [facility] Comment on above: Result Comment: Tawana min D 25(OH) Status Range Deficiency <20 ng/mL (50nmol/L) Insufficiency 20 - 30 ng/mL (50 - 75 nmol/L) Sufficiency 30 - 100 ng/mL (75 - 250 nmol/L) Toxicity >100 ng/mL (>250 nmol/L) Performed By: #### L 100.0100, L500.4050, L506.1000, L501.9520 ####[facility] [address] [place], [address] Re-Evaluation - PT (1)on Re-Evaluation - PT (1) Normal [facility] MR/BMS.BPon 03-26-2024 MR/BMS.BP Normal [facility] Inital Evaluation (1) - PTon 03-12-2024 Inital Evaluation (1) - PT Normal [facility] CNOVon 11-16-2023 CNOV Office Visit (PODIWS ) ARACELY HERNANDEZ ([id number]) 1945 F Date Time Provider Department 11/16/23 [...] GI Upset (more content not included)... Normal [facility] XR FOOT 3V AP/LAT/OBL LTon 0 [...] plantar calcaneal spur. IMPRESSION: No acute abnormality [employer]: GÓMEZ Transcribe Date/Time: Nov 21 2023 10:38A Dictated by : PATRICA WEST MD This examination was interpreted and the report reviewed and electronically signed by: PATRICA WEST MD on Nov 21 2023 10:40AM EST [id number] Normal [facility] Absolute lymphocyte countOrd ered By: Sumit Whipple on 11-07-2023 Lymphocytes Auto (Unsp spec) [#/Vol] 2.51 10*3/uL 0.83-4.51 [facility] Automated lymphocyte count a s percentage of total leukocytesOrdered By: Sumit Whipple on 11-07-2023 Lymphocytes/100 WBC Auto (Unsp spec) 32.1 % 19-41 [facility] Bacteria identified Cx Nom ( Wound)Ordered By: Sumit Whipple on 11-07-2023 Wound Culture Escherichia coli [facility] Wound Culture Enterococcus faecalis [facility] Basophil percentageOrdered B y: Sumit Whipple on 11-07-2023 Basophils/100 WBC (Bld) 0.3 % 0-1 [facility] Bilirubin [Mass/Vol] 0.40 mg/dL 0.20-1.00 [facility] Comment on above: For patients on eltr ombopag therapy, use of Dimension [place] TBIL is not recommended. Chloride [Moles/Vol] 102 mmol/L 98-107 [facility] Eosinophils/100 WBC (Bld) 3.4 % 0-5 [facility] Glucose [Mass/Vol] 187 mg/dL 74-106 [facility] Comment on above: Fasting Glucose resu lt greater than or equal to 126 mg/dL suggests DIABETES MELLITUS per A.D.A. criteria. Hemoglobin (Bld) [Mass/Vol] 13.0 g/dL 12.0-15.0 [facility] Monocytes/100 WBC (Bld) 7.8 % 0-10 [facility] Neutrophils (Bld) [#/Vol] 4.4 10*3/uL 2.0-7.7 [facility] Neutrophils/100 WBC (Bld) 56.1 % 47-70 [facility] Potassium [Moles/Vol] 4.0 mmol/L 3.5-5.1 [facility] Protein [Mass/Vol] 6.6 g/dL 6.4-8.2 [facility] Sodium [Moles/Vol] 135 mmol/L 136-145 [facility] WBC (Bld) [#/Vol] 7.8 10*3/uL 4.4-11.0 [facility] Determination of erythrocyte mean corpuscular volume (MCV)Ordered By: Sumit Whipple on 11-07-2023 MCV (RBC) [Entitic vol] 83.2 fL 81-99 [facility] Erythrocyte distribution wid th ratioOrdered By: Sumit Whipple on 11-07-2023 Erythrocyte distribution width (RBC) [Ratio] 14.3 % 11.6-14.6 [facility] Erythrocyte distribution wid th standard deviationOrdered By: Sumit Whipple on 11-07-2023 Erythrocyte distribution width (RBC) [Entitic vol] 43.2 fL 35.1-43.9 [facility] Gram stain for investigation of transfusion reactionOrdered By: Sumit Whipple on 11-07-2023 Microscopic observation Gram stain Nom (Unsp spec) [facility] Hematocrit Auto (Bld) [Volum e fraction]Ordered By: Sumit Whipple on 11-07-2023 Hematocrit (Bld) [Volume fraction] 40.5 % 37-47 [facility] Immature granulocytes/100 WB C Auto (Bld)Ordered By: Sumit Whipple on 11-07-2023 Immature granulocytes/100 WBC (Bld) 0.300 % 0.0-0.9 [facility] Comment on above: IG% - Immature Granu locytes (promyelocytes, myelocytes and metamyelocytes) > 1% indicates that a LEFT SHIFT is Present. Laboratory - Chemistry and C hemistry - challengeOrdered By: Sumit Whipple on 11-07-2023 Albumin/Globulin [Mass ratio] 0.7 {ratio} 0.9-2.4 [facility] ALP [Catalytic activity/Vol] 76 U/L 45-117 [facility] ALT [Catalytic activity/Vol] 21 U/L 13-56 [facility] CO2 [Moles/Vol] 28.0 mmol/L 21.0-32.0 [facility] Globulin (S) [Mass/Vol] 3.8 g/dL 2.2-4.2 [facility] Urea nitrogen/Creatinine [Mass ratio] 14.6 mg/mg 10-20 [facility] Laboratory - Hematology and Cell countsOrdered By: Sumit Whipple on 11-07-2023 MCH (RBC) [Entitic mass] 26.7 pg 27.0-32.0 [facility] MCHC (RBC) [Mass/Vol] 32.1 g/dL 32-36 [facility] Nucleated RBC/100 WBC (Bld) [Ratio] 0 % 0-5 [facility] Platelet mean volume (Bld) [Entitic vol] 9.9 fL 6.2-12.0 [facility] Platelets (Bld) [#/Vol] 303 10*3/uL 150-450 [facility] No Panel InformationOrdered By: Sumit Whipple on 11-07-2023 Methicillin-Resist S.aureus DNA PCR Negative Negative [facility] Estimated GFR (MDRD) Amer 79 mL/min >60 [facility] Comment on above: GFR Calc Estimated GFR (MDRD) Non-Af Amer 65 mL/min >60 [facility] Comment on above: Non- GFR Calc Vitamin D 25-Hydroxy 57.4 ng/mL [facility] Comment on above: Vitamin D 25(OH) Sta tus Range Deficiency <20 ng/mL (50nmol/L) Insufficiency 20 - 30 ng/mL (50 - 75 nmol/L) Sufficiency 30 - 100 ng/mL (75 - 250 nmol/L) Toxicity >100 ng/mL (>250 nmol/L) RBC Auto (Bld) [#/Vol]Ordere d By: Sumit Whipple on 11-07-2023 RBC (Bld) [#/Vol] 4.87 10*6/uL 4.2-5.4 [facility] Serum or plasma calcium dot urement (mass/volume)Ordered By: Sumit Whipple on 11-07-2023 Calcium [Mass/Vol] 9.1 mg/dL 8.5-10.1 [facility] Serum or plasma creatinine m easurement (mass/volume)Ordered By: Sumit Whipple on 11-07-2023 Creatinine [Mass/Vol] 0.89 mg/dL 0.55-1.02 [facility] Comment on above: The validity of the calculated GFR & GFRAA in patients over 70 years has not been determined. Clinical correlation is essential. Serum or plasma thyroid stim ulating hormone (TSH) measurement (units/volume)Ordered By: Sumit Whipple on 11-07-2023 TSH Qn 7.89 uIU/mL 0.358-3.74 [facility] Serum or plasma urea nitroge n measurement (mass/volume)Ordered By: Sumit Whipple on 11-07-2023 Urea nitrogen [Mass/Vol] 13 mg/dL 7-18 [facility] Staphylococcus aureus DNA de tection by probe and target amplification methodOrdered By: Sumit Whipple on 11-07-2023 S. aureus DNA ZUNILDA+probe Ql (Unsp spec) Negative Negative [facility] Thin prep Papanicolaou smear with manual screeningOrdered By: Sumit Whipple on 11-07-2023 Thin prep Papanicolaou smear with manual screening 2.8 g/dL 3.2-5.0 [facility] Thin prep Papanicolaou smear with manual screening 12 U/L 15-37 [facility] Thin prep Papanicolaou smear with manual screening 5 5-15 [facility] Absolute lymphocyte countOrd ered By: Sumit Whipple on 07-17-2023 Lymphocytes Auto (Unsp spec) [#/Vol] 2.12 10*3/uL 0.83-4.51 [facility] Basophil percentageOrdered B y: Sumit Whipple on 07-17-2023 Basophils/100 WBC (Bld) 0.6 % 0-1 [facility] Bilirubin [Mass/Vol] 0.50 mg/dL 0.20-1.00 [facility] Comment on above: For patients on eltr ombopag therapy, use of Dimension [place] TBIL is not recommended. Chloride [Moles/Vol] 101 mmol/L 98-107 [facility] Eosinophils/100 WBC (Bld) 3.0 % 0-5 [facility] Glucose [Mass/Vol] 136 mg/dL 74-106 [facility] Comment on above: Fasting Glucose resu lt greater than or equal to 126 mg/dL suggests DIABETES MELLITUS per A.D.A. criteria. Neutrophils (Bld) [#/Vol] 3.6 10*3/uL 2.0-7.7 [facility] Neutrophils/100 WBC (Bld) 55.4 % 47-70 [facility] Potassium [Moles/Vol] 4.5 mmol/L 3.5-5.1 [facility] Protein [Mass/Vol] 6.5 g/dL 6.4-8.2 [facility] Sodium [Moles/Vol] 134 mmol/L 136-145 [facility] WBC (Bld) [#/Vol] 6.4 10*3/uL 4.4-11.0 [facility] Blood erythrocytes count (nu mber/volume)Ordered By: Sumit Whipple on 07-17-2023 RBC (Bld) [#/Vol] 4.51 10*6/uL 4.2-5.4 [facility] Blood hemoglobin measurement (mass/volume)Ordered By: Sumit Whipple on 07-17-2023 Hemoglobin (Bld) [Mass/Vol] 12.2 g/dL 12.0-15.0 [facility] Blood lymphocytes/100 leukoc ytesOrdered By: Sumit Whipple on 07-17-2023 Lymphocytes/100 WBC (Bld) 33.1 % 19-41 [facility] Blood monocytes/100 leukocyt esOrdered By: Sumit Whipple on 07-17-2023 Monocytes/100 WBC (Bld) 7.6 % 0-10 [facility] Blood platelet mean volumeOr dered By: Sumit Whipple on 07-17-2023 Platelet mean volume (Bld) [Entitic vol] 9.5 fL 6.2-12.0 [facility] Culture, urineOrdered By: Desmond Whipple on 07-17-2023 Bacteria identified Cx Nom (U) Culture exhibits no growth. [facility] Bacteria identified Cx Nom (U) Culture exhibits no growth. [facility] Determination of erythrocyte mean corpuscular volume (MCV)Ordered By: Sumit Whipple on 07-17-2023 MCV (RBC) [Entitic vol] 85.1 fL 81-99 [facility] Hematocrit Auto (Bld) [Volum e fraction]Ordered By: Sumit Whipple on 07-17-2023 Hematocrit (Bld) [Volume fraction] 38.4 % 37-47 [facility] Laboratory - Chemistry and C hemistry - challengeOrdered By: Sumit Whipple on 07-17-2023 ALP [Catalytic activity/Vol] 55 U/L 45-117 [facility] ALT [Catalytic activity/Vol] 26 U/L 13-56 [facility] [facility] CO2 [Moles/Vol] 28.0 mmol/L 21.0-32.0 [facility] Globulin (S) [Mass/Vol] 3.2 g/dL 2.2-4.2 [facility] Urea nitrogen/Creatinine [Mass ratio] 13.2 mg/mg 10-20 [facility] Laboratory - Hematology and Cell countsOrdered By: Sumit Whipple on 07-17-2023 Erythrocyte distribution width (RBC) [Entitic vol] 44.7 fL 35.1-43.9 [facility] Erythrocyte distribution width (RBC) [Ratio] 14.4 % 11.6-14.6 [facility] Immature granulocytes/100 WBC (Bld) 0.300 % 0.0-0.9 [facility] Comment on above: IG% - Immature Granu locytes (promyelocytes, myelocytes and metamyelocytes) > 1% indicates that a LEFT SHIFT is Present. MCH (RBC) [Entitic mass] 27.1 pg 27.0-32.0 [facility] Nucleated RBC/100 WBC (Bld) [Ratio] 0 % 0-5 [facility] MCHC Auto (RBC) [Mass/Vol]Or dered By: Sumit Whipple on 07-17-2023 MCHC (RBC) [Mass/Vol] 31.8 g/dL 32-36 [facility] No Panel InformationOrdered By: Sumit Whipple on 07-17-2023 Estimated GFR (MDRD) Amer 70 mL/min >60 [facility] Comment on above: GFR Calc Estimated GFR (MDRD) Non-Af Amer 58 mL/min >60 [facility] Comment on above: Non- GFR Calc Platelets bldOrdered By: Sumit Whipple on 07-17-2023 Platelets (Bld) [#/Vol] 307 10*3/uL 150-450 [facility] Serum or plasma albumin dot urement (mass/volume)Ordered By: Sumit Whipple on 07-17-2023 Albumin [Mass/Vol] 3.3 g/dL 3.2-5.0 [facility] Serum or plasma albumin/glob ulin mass ratioOrdered By: Sumit Whipple on 07-17-2023 Albumin/Globulin [Mass ratio] 1.0 {ratio} 0.9-2.4 [facility] Serum or plasma calcium dot urement (mass/volume)Ordered By: Sumit Whipple on 07-17-2023 Calcium [Mass/Vol] 8.9 mg/dL 8.5-10.1 [facility] Serum or plasma creatinine m easurement (mass/volume)Ordered By: Sumit Whipple on 07-17-2023 Creatinine [Mass/Vol] 0.99 mg/dL 0.55-1.02 [facility] Comment on above: The validity of the calculated GFR & GFRAA in patients over 70 years has not been determined. Clinical correlation is essential. Serum or plasma urea nitroge n measurement (mass/volume)Ordered By: Sumit Whipple on 07-17-2023 Urea nitrogen [Mass/Vol] 13 mg/dL 7-18 [facility] Thin prep Papanicolaou smear with manual screeningOrdered By: Sumit Whipple on 07-17-2023 Thin prep Papanicolaou smear with manual screening 16 U/L 15-37 [facility] Thin prep Papanicolaou smear with manual screening 5 5-15 [facility] Absolute lymphocyte countOrd ered By: Sumit Whipple on 05-09-2023 Lymphocytes Auto (Unsp spec) [#/Vol] 1.86 10*3/uL 0.83-4.51 [facility] Basophil percentageOrdered B y: Sumit Whipple on 05-09-2023 Basophils/100 WBC (Bld) 0.5 % 0-1 [facility] Bilirubin [Mass/Vol] 0.40 mg/dL 0.20-1.00 [facility] Comment on above: For patients on eltr ombopag therapy, use of Dimension [place] TBIL is not recommended. Chloride [Moles/Vol] 105 mmol/L 98-107 [facility] Eosinophils/100 WBC (Bld) 2.9 % 0-5 [facility] Glucose [Mass/Vol] 113 mg/dL 74-106 [facility] Comment on above: Fasting Glucose resu lt from 100 to 125 mg/dL suggests IMPAIRED HOMEOSTASIS per A.D.A. criteria. Neutrophils (Bld) [#/Vol] 3.4 10*3/uL 2.0-7.7 [facility] Neutrophils/100 WBC (Bld) 57.3 % 47-70 [facility] Potassium [Moles/Vol] 4.5 mmol/L 3.5-5.1 [facility] Protein [Mass/Vol] 6.6 g/dL 6.4-8.2 [facility] Sodium [Moles/Vol] 137 mmol/L 136-145 [facility] WBC (Bld) [#/Vol] 5.9 10*3/uL 4.4-11.0 [facility] Blood erythrocytes count (nu mber/volume)Ordered By: Sumit Whipple on 05-09-2023 RBC (Bld) [#/Vol] 4.27 10*6/uL 4.2-5.4 [facility] Blood hemoglobin measurement (mass/volume)Ordered By: Sumit Whipple on 05-09-2023 Hemoglobin (Bld) [Mass/Vol] 12.0 g/dL 12.0-15.0 [facility] Blood lymphocytes/100 leukoc ytesOrdered By: Sumit Whipple on 05-09-2023 Lymphocytes/100 WBC (Bld) 31.5 % 19-41 [facility] Blood monocytes/100 leukocyt esOrdered By: Sumit Whipple on 05-09-2023 Monocytes/100 WBC (Bld) 7.6 % 0-10 [facility] Blood platelet mean volumeOr dered By: Sumit Whipple on 05-09-2023 Platelet mean volume (Bld) [Entitic vol] 9.5 fL 6.2-12.0 [facility] Determination of erythrocyte mean corpuscular volume (MCV)Ordered By: Sumit Whipple on 05-09-2023 MCV (RBC) [Entitic vol] 84.5 fL 81-99 [facility] Hematocrit Auto (Bld) [Volum e fraction]Ordered By: Sumit Whipple on 05-09-2023 Hematocrit (Bld) [Volume fraction] 36.1 % 37-47 [facility] Laboratory - Chemistry and C hemistry - challengeOrdered By: Sumit Whipple on 05-09-2023 ALP [Catalytic activity/Vol] 51 U/L 45-117 [facility] ALT [Catalytic activity/Vol] 32 U/L 13-56 [facility] CO2 [Moles/Vol] 27.0 mmol/L 21.0-32.0 [facility] Globulin (S) [Mass/Vol] 3.2 g/dL 2.2-4.2 [facility] Urea nitrogen/Creatinine [Mass ratio] 25.5 mg/mg 10-20 [facility] Laboratory - Hematology and Cell countsOrdered By: Sumit Whipple on 05-09-2023 Erythrocyte distribution width (RBC) [Entitic vol] 45.7 fL 35.1-43.9 [facility] Erythrocyte distribution width (RBC) [Ratio] 14.8 % 11.6-14.6 [facility] Immature granulocytes/100 WBC (Bld) 0.200 % 0.0-0.9 [facility] Comment on above: IG% - Immature Granu locytes (promyelocytes, myelocytes and metamyelocytes) > 1% indicates that a LEFT SHIFT is Present. MCH (RBC) [Entitic mass] 28.1 pg 27.0-32.0 [facility] Nucleated RBC/100 WBC (Bld) [Ratio] 0 % 0-5 [facility] MCHC Auto (RBC) [Mass/Vol]Or dered By: Sumit Whipple on 05-09-2023 MCHC (RBC) [Mass/Vol] 33.2 g/dL 32-36 [facility] No Panel InformationOrdered By: Sumit Whipple on 05-09-2023 Estimated GFR (MDRD) Amer 71 mL/min >60 [facility] Comment on above: GFR Calc Estimated GFR (MDRD) Non-Af Amer 58 mL/min >60 [facility] Comment on above: Non- GFR Calc Thyroid Stimulating Hormone (TSH) 3.16 uIU/mL 0.358-3.74 [facility] Vitamin D 25-Hydroxy 56.1 ng/mL [facility] Comment on above: Vitamin D 25(OH) Sta tus Range Deficiency <20 ng/mL (50nmol/L) Insufficiency 20 - 30 ng/mL (50 - 75 nmol/L) Sufficiency 30 - 100 ng/mL (75 - 250 nmol/L) Toxicity >100 ng/mL (>250 nmol/L) Platelets bldOrdered By: Sumit Whipple on 05-09-2023 Platelets (Bld) [#/Vol] 298 10*3/uL 150-450 [facility] Serum or plasma albumin dot urement (mass/volume)Ordered By: Sumit Whipple on 05-09-2023 Albumin [Mass/Vol] 3.4 g/dL 3.2-5.0 [facility] Serum or plasma albumin/glob ulin mass ratioOrdered By: Sumit Whipple on 05-09-2023 Albumin/Globulin [Mass ratio] 1.1 {ratio} 0.9-2.4 [facility] Serum or plasma calcium dot urement (mass/volume)Ordered By: Sumit Whipple on 05-09-2023 Calcium [Mass/Vol] 9.1 mg/dL 8.5-10.1 [facility] Serum or plasma creatinine m easurement (mass/volume)Ordered By: Sumit Whipple on 05-09-2023 Creatinine [Mass/Vol] 0.98 mg/dL 0.55-1.02 [facility] Comment on above: The validity of the calculated GFR & GFRAA in patients over 70 years has not been determined. Clinical correlation is essential. Serum or plasma urea nitroge n measurement (mass/volume)Ordered By: Sumit Whipple on 05-09-2023 Urea nitrogen [Mass/Vol] 25 mg/dL 7-18 [facility] Thin prep Papanicolaou smear with manual screeningOrdered By: Sumit Whipple on 05-09-2023 Thin prep Papanicolaou smear with manual screening 27 U/L 15-37 [facility] Thin prep Papanicolaou smear with manual screening 5 5-15 [facility] Absolute lymphocyte countOrd ered By: Sumit Whipple on 04-18-2023 Lymphocytes Auto (Unsp spec) [#/Vol] 2.57 10*3/uL 0.83-4.51 [facility] Basophil percentageOrdered B y: Sumit Whipple on 04-18-2023 Basophils/100 WBC (Bld) 0.4 % 0-1 [facility] Chloride [Moles/Vol] 103 mmol/L 98-107 [facility] Eosinophils/100 WBC (Bld) 3.5 % 0-5 [facility] Glucose [Mass/Vol] 81 mg/dL 74-106 [facility] Neutrophils (Bld) [#/Vol] 4.0 10*3/uL 2.0-7.7 [facility] Neutrophils/100 WBC (Bld) 53.7 % 47-70 [facility] Potassium [Moles/Vol] 4.6 mmol/L 3.5-5.1 [facility] Sodium [Moles/Vol] 136 mmol/L 136-145 [facility] WBC (Bld) [#/Vol] 7.4 10*3/uL 4.4-11.0 [facility] Blood erythrocytes count (nu mber/volume)Ordered By: Sumit Whipple on 04-18-2023 RBC (Bld) [#/Vol] 4.96 10*6/uL 4.2-5.4 [facility] Blood hemoglobin measurement (mass/volume)Ordered By: Sumit Whipple on 04-18-2023 Hemoglobin (Bld) [Mass/Vol] 13.2 g/dL 12.0-15.0 [facility] Blood lymphocytes/100 leukoc ytesOrdered By: Sumit Whipple on 04-18-2023 Lymphocytes/100 WBC (Bld) 34.6 % 19-41 [facility] Blood monocytes/100 leukocyt esOrdered By: Sumit Whipple on 04-18-2023 Monocytes/100 WBC (Bld) 7.5 % 0-10 [facility] Blood platelet mean volumeOr dered By: Sumit Whipple on 04-18-2023 Platelet mean volume (Bld) [Entitic vol] 10.1 fL 6.2-12.0 [facility] Determination of erythrocyte mean corpuscular volume (MCV)Ordered By: Sumit Whipple on 04-18-2023 MCV (RBC) [Entitic vol] 85.3 fL 81-99 [facility] Hematocrit Auto (Bld) [Volum e fraction]Ordered By: Sumit Whipple on 04-18-2023 Hematocrit (Bld) [Volume fraction] 42.3 % 37-47 [facility] Laboratory - Chemistry and C hemistry - challengeOrdered By: Sumit Whipple on 04-18-2023 CO2 [Moles/Vol] 28.0 mmol/L 21.0-32.0 [facility] Urea nitrogen/Creatinine [Mass ratio] 19.0 mg/mg 10-20 [facility] Laboratory - Hematology and Cell countsOrdered By: Sumit Whipple on 04-18-2023 Erythrocyte distribution width (RBC) [Entitic vol] 44.7 fL 35.1-43.9 [facility] Erythrocyte distribution width (RBC) [Ratio] 14.6 % 11.6-14.6 [facility] Immature granulocytes/100 WBC (Bld) 0.300 % 0.0-0.9 [facility] Comment on above: IG% - Immature Granu locytes (promyelocytes, myelocytes and metamyelocytes) > 1% indicates that a LEFT SHIFT is Present. MCH (RBC) [Entitic mass] 26.6 pg 27.0-32.0 [facility] Nucleated RBC/100 WBC (Bld) [Ratio] 0 % 0-5 [facility] MCHC Auto (RBC) [Mass/Vol]Or dered By: Sumit Whipple on 04-18-2023 MCHC (RBC) [Mass/Vol] 31.2 g/dL 32-36 [facility] No Panel InformationOrdered By: Sumit Whipple on 04-18-2023 Estimated GFR (MDRD) Amer 69 mL/min >60 [facility] Comment on above: GFR Calc Estimated GFR (MDRD) Non-Af Amer 57 mL/min >60 [facility] Comment on above: Non- GFR Calc Thyroid Stimulating Hormone (TSH) 0.67 uIU/mL 0.358-3.74 [facility] Platelets bldOrdered By: Sumit Whipple on 04-18-2023 Platelets (Bld) [#/Vol] 337 10*3/uL 150-450 [facility] Serum or plasma C reactive p rotein measurement (mass/volume)Ordered By: Sumit Whipple on 04-18-2023 CRP [Mass/Vol] mg/L 0.0-3.0 [facility] Comment on above: C-Reactive Protein ( CRP) provides useful information for thediagnosis, therapy and monitoring of inflammatory processesand associated diseases. For the evaluation of Relative Riskfor Cardiovascular Disease, a High Sensitivity CRP (HSCRP)should be ordered. Serum or plasma calcium dot urement (mass/volume)Ordered By: Sumit Whipple on 04-18-2023 Calcium [Mass/Vol] 9.5 mg/dL 8.5-10.1 [facility] Serum or plasma creatinine m easurement (mass/volume)Ordered By: Sumit Whipple on 04-18-2023 Creatinine [Mass/Vol] 1.00 mg/dL 0.55-1.02 [facility] Comment on above: The validity of the calculated GFR & GFRAA in patients over 70 years has not been determined. Clinical correlation is essential. Serum or plasma urea nitroge n measurement (mass/volume)Ordered By: Sumit Whipple on 04-18-2023 Urea nitrogen [Mass/Vol] 19 mg/dL 7-18 [facility] Thin prep Papanicolaou smear with manual screeningOrdered By: Sumit Whipple on 04-18-2023 Thin prep Papanicolaou smear with manual screening 5 5-15 [facility] Absolute lymphocyte countOrd ered By: Dr. Whipple on 11-01-2022 Lymphocytes Auto (Unsp spec) [#/Vol] 1.59 10*3/uL 0.83-4.51 [facility] Basophil percentageOrdered B y: Dr. Whipple on 11-01-2022 Basophils/100 WBC (Bld) 0.5 % 0-1 [facility] Bilirubin [Mass/Vol] 0.30 mg/dL 0.20-1.00 [facility] Comment on above: For patients on eltr ombopag therapy, use of Dimension [place] TBIL is not recommended. Chloride [Moles/Vol] 105 mmol/L 98-107 [facility] Eosinophils/100 WBC (Bld) 3.8 % 0-5 [facility] Glucose [Mass/Vol] 115 mg/dL 74-106 [facility] Comment on above: Fasting Glucose resu lt from 100 to 125 mg/dL suggests IMPAIRED HOMEOSTASIS per A.D.A. criteria. Neutrophils (Bld) [#/Vol] 4.2 10*3/uL 2.0-7.7 [facility] Neutrophils/100 WBC (Bld) 63.7 % 47-70 [facility] Potassium [Moles/Vol] 4.5 mmol/L 3.5-5.1 [facility] Protein [Mass/Vol] 6.8 g/dL 6.4-8.2 [facility] Sodium [Moles/Vol] 139 mmol/L 136-145 [facility] WBC (Bld) [#/Vol] 6.5 10*3/uL 4.4-11.0 [facility] Blood erythrocytes count (nu mber/volume)Ordered By: Dr. Whipple on 11-01-2022 RBC (Bld) [#/Vol] 4.69 10*6/uL 4.2-5.4 [facility] Blood hemoglobin measurement (mass/volume)Ordered By: Dr. Whipple on 11-01-2022 Hemoglobin (Bld) [Mass/Vol] 12.8 g/dL 12.0-15.0 [facility] Blood lymphocytes/100 leukoc ytesOrdered By: Dr. Whipple on 11-01-2022 Lymphocytes/100 WBC (Bld) 24.4 % 19-41 [facility] Blood monocytes/100 leukocyt esOrdered By: Dr. Whipple on 11-01-2022 Monocytes/100 WBC (Bld) 7.1 % 0-10 [facility] Blood platelet mean volumeOr dered By: Dr. Whipple on 11-01-2022 Platelet mean volume (Bld) [Entitic vol] 10.5 fL 6.2-12.0 [facility] Determination of erythrocyte mean corpuscular volume (MCV)Ordered By: Dr. Whipple on 11-01-2022 MCV (RBC) [Entitic vol] 85.3 fL 81-99 [facility] Hematocrit Auto (Bld) [Volum e fraction]Ordered By: Dr. Whipple on 11-01-2022 Hematocrit (Bld) [Volume fraction] 40.0 % 37-47 [facility] Laboratory - Chemistry and C hemistry - challengeOrdered By: Dr. Whipple on 11-01-2022 ALP [Catalytic activity/Vol] 59 U/L 45-117 [facility] ALT [Catalytic activity/Vol] 24 U/L 13-56 [facility] CO2 [Moles/Vol] 29.0 mmol/L 21.0-32.0 [facility] Globulin (S) [Mass/Vol] 3.3 g/dL 2.2-4.2 [facility] Urea nitrogen/Creatinine [Mass ratio] 25.2 mg/mg 10-20 [facility] Laboratory - Hematology and Cell countsOrdered By: Dr. Whipple on 11-01-2022 Erythrocyte distribution width (RBC) [Entitic vol] 44.9 fL 35.1-43.9 [facility] Erythrocyte distribution width (RBC) [Ratio] 14.6 % 11.6-14.6 [facility] Immature granulocytes/100 WBC (Bld) 0.500 % 0.0-0.9 [facility] Comment on above: IG% - Immature Granu locytes (promyelocytes, myelocytes and metamyelocytes) > 1% indicates that a LEFT SHIFT is Present. MCH (RBC) [Entitic mass] 27.3 pg 27.0-32.0 [facility] Nucleated RBC/100 WBC (Bld) [Ratio] 0 % 0-5 [facility] MCHC Auto (RBC) [Mass/Vol]Or dered By: Dr. Whipple on 11-01-2022 MCHC (RBC) [Mass/Vol] 32.0 g/dL 32-36 [facility] No Panel InformationOrdered By: Dr. Whipple on 11-01-2022 Estimated GFR (MDRD) Amer 77 mL/min >60 [facility] Comment on above: GFR Calc Estimated GFR (MDRD) Non-Af Amer 64 mL/min >60 [facility] Comment on above: Non- GFR Calc Thyroid Stimulating Hormone (TSH) 1.16 uIU/mL 0.358-3.74 [facility] Vitamin D 25-Hydroxy 73.4 ng/mL [facility] Comment on above: Vitamin D 25(OH) Sta tus Range Deficiency <20 ng/mL (50nmol/L) Insufficiency 20 - 30 ng/mL (50 - 75 nmol/L) Sufficiency 30 - 100 ng/mL (75 - 250 nmol/L) Toxicity >100 ng/mL (>250 nmol/L) Platelets bldOrdered By: Dr. Whipple on 11-01-2022 Platelets (Bld) [#/Vol] 297 10*3/uL 150-450 [facility] Serum or plasma albumin dot urement (mass/volume)Ordered By: Dr. Whipple on 11-01-2022 Albumin [Mass/Vol] 3.5 g/dL 3.2-5.0 [facility] Serum or plasma albumin/glob ulin mass ratioOrdered By: Dr. Whipple on 11-01-2022 Albumin/Globulin [Mass ratio] 1.1 {ratio} 0.9-2.4 [facility] Serum or plasma calcium dot urement (mass/volume)Ordered By: Dr. Whipple on 11-01-2022 Calcium [Mass/Vol] 9.7 mg/dL 8.5-10.1 [facility] Serum or plasma creatinine m easurement (mass/volume)Ordered By: Dr. Whipple on 11-01-2022 Creatinine [Mass/Vol] 0.91 mg/dL 0.55-1.02 [facility] Comment on above: The validity of the calculated GFR & GFRAA in patients over 70 years has not been determined. Clinical correlation is essential. Serum or plasma urea nitroge n measurement (mass/volume)Ordered By: Dr. Whipple on 11-01-2022 Urea nitrogen [Mass/Vol] 23 mg/dL 7-18 [facility] Thin prep Papanicolaou smear with manual screeningOrdered By: Dr. Whipple on 11-01-2022 Thin prep Papanicolaou smear with manual screening 18 U/L 15-37 [facility] Thin prep Papanicolaou smear with manual screening 5 5-15 [facility] XR FOOT GENERAL 3V AP/LAT/OB L BILATERALon 10-24-2022 [facility] Absolute lymphocyte counton 05-04-2022 Lymphocytes Auto (Unsp spec) [#/Vol] 1.98 10*3/uL 0.83-4.51 [facility] Work Phone: Basophil percentageon 2021 Basophils/100 WBC (Bld) 0.6 % 0-1 [facility] Work Phone: Bilirubin [Mass/Vol] 0.30 mg/dL 0.20-1.00 [facility] Work Phone: [phone] Comment on above: For patients on eltr ombopag therapy, use of Dimension [place] TBIL is not recommended. Chloride [Moles/Vol] 104 mmol/L 98-107 [facility] Work Phone: [phone] Eosinophils/100 WBC (Bld) 4.4 % 0-5 [facility] Work Phone: [phone] Glucose [Mass/Vol] 132 mg/dL 74-106 [facility] Work Phone: [phone] Comment on above: Fasting Glucose resu lt greater than or equal to 126 mg/dL suggests DIABETES MELLITUS per A.D.A. criteria. Neutrophils (Bld) [#/Vol] 3.9 10*3/uL 2.0-7.7 [facility] Work Phone: [phone] Neutrophils/100 WBC (Bld) 57.7 % 47-70 [facility] Work Phone: [phone] Potassium [Moles/Vol] 4.6 mmol/L 3.5-5.1 [facility] Work Phone: [phone] Protein [Mass/Vol] 7.2 g/dL 6.4-8.2 [facility] Work Phone: [phone] Sodium [Moles/Vol] 140 mmol/L 136-145 [facility] Work Phone: [phone] WBC (Bld) [#/Vol] 6.7 10*3/uL 4.4-11.0 [facility] Work Phone: [phone] Blood erythrocytes count (nu mber/volume)on 05-04-2022 RBC (Bld) [#/Vol] 4.88 10*6/uL 4.2-5.4 [facility] Work Phone: [phone] Blood hemoglobin measurement (mass/volume)on 05-04-2022 Hemoglobin (Bld) [Mass/Vol] 13.4 g/dL 12.0-15.0 [facility] Work Phone: Blood lymphocytes/100 leukoc yteson 05-04-2022 Lymphocytes/100 WBC (Bld) 29.7 % 19-41 [facility] Work Phone: Blood monocytes/100 leukocyt eson 05-04-2022 Monocytes/100 WBC (Bld) 7.4 % 0-10 [facility] Work Phone: Blood platelet mean volumeon 05-04-2022 Platelet mean volume (Bld) [Entitic vol] 10.0 fL 6.2-12.0 [facility] Work Phone: Determination of erythrocyte mean corpuscular volume (MCV)on 05-04-2022 MCV (RBC) [Entitic vol] 84.8 fL 81-99 [facility] Work Phone: Hematocrit Auto (Bld) [Volum e fraction]on 05-04-2022 Hematocrit (Bld) [Volume fraction] 41.4 % 37-47 [facility] Work Phone: Laboratory - Chemistry and C hemistry - challengeon 05-04-2022 ALP [Catalytic activity/Vol] 58 U/L 45-117 [facility] Work Phone: ALT [Catalytic activity/Vol] 29 U/L 13-56 [facility] Work Phone: CO2 [Moles/Vol] 27.0 mmol/L 21.0-32.0 [facility] Work Phone: Globulin (S) [Mass/Vol] 4.0 g/dL 2.2-4.2 [facility] Work Phone: Urea nitrogen/Creatinine [Mass ratio] 26.5 mg/mg 10-20 [facility] Work Phone: Laboratory - Hematology and Cell countson 05-04-2022 Erythrocyte distribution width (RBC) [Entitic vol] 44.0 fL 35.1-43.9 [facility] Work Phone: Erythrocyte distribution width (RBC) [Ratio] 14.4 % 11.6-14.6 [facility] Work Phone: Immature granulocytes/100 WBC (Bld) 0.200 % 0.0-0.9 [facility] Work Phone: Comment on above: IG% - Immature Granu locytes (promyelocytes, myelocytes and metamyelocytes) > 1% indicates that a LEFT SHIFT is Present. MCH (RBC) [Entitic mass] 27.5 pg 27.0-32.0 [facility] Work Phone: Nucleated RBC/100 WBC (Bld) [Ratio] 0 % 0-5 [facility] Work Phone: MCHC Auto (RBC) [Mass/Vol]on 05-04-2022 MCHC (RBC) [Mass/Vol] 32.4 g/dL 32-36 [facility] Work Phone: No Panel Informationon 05-04 Estimated GFR (MDRD) Amer 71 mL/min >60 [facility] Work Phone: Comment on above: GFR Calc Estimated GFR (MDRD) Non-Af Amer 59 mL/min >60 [facility] Work Phone: Comment on above: Non- GFR Calc Thyroid Stimulating Hormone (TSH) 1.30 uIU/mL 0.358-3.74 [facility] Work Phone: Vitamin D 25-Hydroxy 68.2 ng/mL [facility] Work Phone: Comment on above: Vitamin D 25(OH) Sta tus Range Deficiency <20 ng/mL (50nmol/L) Insufficiency 20 - 30 ng/mL (50 - 75 nmol/L) Sufficiency 30 - 100 ng/mL (75 - 250 nmol/L) Toxicity >100 ng/mL (>250 nmol/L) Platelets bldon 05-04-2022 Platelets (Bld) [#/Vol] 351 10*3/uL 150-450 [facility] [facility] Work Phone: Serum or plasma albumin dot urement (mass/volume)on 05-04-2022 Albumin [Mass/Vol] 3.2 g/dL 3.2-5.0 [facility] Work Phone: Serum or plasma albumin/glob ulin mass ratioon 05-04-2022 Albumin/Globulin [Mass ratio] 0.8 {ratio} 0.9-2.4 [facility] Work Phone: Serum or plasma calcium dot urement (mass/volume)on 05-04-2022 Calcium [Mass/Vol] 9.6 mg/dL 8.5-10.1 [facility] Work Phone: Serum or plasma creatinine m easurement (mass/volume)on 05-04-2022 Creatinine [Mass/Vol] 0.98 mg/dL 0.55-1.02 [facility] Work Phone: Comment on above: The validity of the calculated GFR & GFRAA in patients over 70 years has not been determined. Clinical correlation is essential. Serum or plasma urea nitroge n measurement (mass/volume)on 05-04-2022 Urea nitrogen [Mass/Vol] 26 mg/dL 7-18 [facility] Work Phone: Thin prep Papanicolaou smear with manual screeningon 05-04-2022 Thin prep Papanicolaou smear with manual screening 15 U/L 15-37 [facility] Work Phone: Thin prep Papanicolaou smear with manual screening 9 5-15 [facility] Work Phone: Basophil percentageon 2021 Chloride [Moles/Vol] 99 mmol/L 98-107 [facility] Work Phone: Glucose [Mass/Vol] 133 mg/dL 74-106 [facility] Work Phone: Comment on above: Fasting Glucose resu lt greater than or equal to 126 mg/dL suggests DIABETES MELLITUS per A.D.A. criteria. Potassium [Moles/Vol] 4.3 mmol/L 3.5-5.1 [facility] Work Phone: Sodium [Moles/Vol] 133 mmol/L 136-145 [facility] Work Phone: Laboratory - Chemistry and C hemistry - challengeon 02-21-2022 CO2 [Moles/Vol] 27.0 mmol/L 21.0-32.0 [facility] Work Phone: Urea nitrogen/Creatinine [Mass ratio] 26.3 mg/mg 10-20 [facility] Work Phone: No Panel Informationon 02-21 Estimated GFR (MDRD) Amer 77 mL/min >60 [facility] Work Phone: Comment on above: GFR Calc Estimated GFR (MDRD) Non-Af Amer 64 mL/min >60 [facility] Work Phone: Comment on above: Non- GFR Calc Serum or plasma calcium dot urement (mass/volume)on 02-21-2022 Calcium [Mass/Vol] 9.8 mg/dL 8.5-10.1 [facility] Work Phone: Serum or plasma creatinine m easurement (mass/volume)on 02-21-2022 Creatinine [Mass/Vol] 0.91 mg/dL 0.55-1.02 [facility] Work Phone: Comment on above: The validity of the calculated GFR & GFRAA in patients over 70 years has not been determined. Clinical correlation is essential. Serum or plasma urea nitroge n measurement (mass/volume)on 02-21-2022 Urea nitrogen [Mass/Vol] 24 mg/dL 7-18 [facility] Work Phone: Thin prep Papanicolaou smear with manual screeningon 02-21-2022 Thin prep Papanicolaou smear with manual screening 7 5-15 [facility] Work Phone: Absolute lymphocyte counton 10-27-2021 Lymphocytes Auto (Unsp spec) [#/Vol] 2.88 10*3/uL 0.83-4.51 [facility] Work Phone: Basophil percentageon 2021 Basophils/100 WBC (Bld) 0.4 % 0-1 [facility] Work Phone: [phone] Bilirubin [Mass/Vol] 0.30 mg/dL 0.20-1.00 [facility] Work Phone: Comment on above: For patients on eltr ombopag therapy, use of Dimension [place] TBIL is not recommended. Chloride [Moles/Vol] 101 mmol/L 98-107 [facility] Work Phone: [phone] Eosinophils/100 WBC (Bld) 1.7 % 0-5 [facility] Work Phone: [phone] Glucose [Mass/Vol] 88 mg/dL 74-106 [facility] Work Phone: [phone] Neutrophils (Bld) [#/Vol] 4.7 10*3/uL 2.0-7.7 [facility] Work Phone: [phone] Neutrophils/100 WBC (Bld) 55.7 % 47-70 [facility] Work Phone: [phone] Potassium [Moles/Vol] 4.4 mmol/L 3.5-5.1 [facility] Work Phone: [phone] Protein [Mass/Vol] 7.3 g/dL 6.4-8.2 [facility] Work Phone: [phone] Sodium [Moles/Vol] 136 mmol/L 136-145 [facility] Work Phone: WBC (Bld) [#/Vol] 8.4 10*3/uL 4.4-11.0 [facility] Work Phone: [phone] Blood erythrocytes count (nu mber/volume)on 10-27-2021 RBC (Bld) [#/Vol] 4.64 10*6/uL 4.2-5.4 [facility] Work Phone: Blood hemoglobin measurement (mass/volume)on 10-27-2021 Hemoglobin (Bld) [Mass/Vol] 13.7 g/dL 12.0-15.0 [facility] Work Phone: Blood lymphocytes/100 leukoc yteson 10-27-2021 Lymphocytes/100 WBC (Bld) 34.2 % 19-41 [facility] Work Phone: Blood monocytes/100 leukocyt eson 10-27-2021 Monocytes/100 WBC (Bld) 7.8 % 0-10 [facility] Work Phone: Blood platelet mean volumeon 10-27-2021 Platelet mean volume (Bld) [Entitic vol] 10.1 fL 6.2-12.0 [facility] Work Phone: Determination of erythrocyte mean corpuscular volume (MCV)on 10-27-2021 MCV (RBC) [Entitic vol] 87.1 fL 81-99 [facility] Work Phone: Hematocrit Auto (Bld) [Volum e fraction]on 10-27-2021 Hematocrit (Bld) [Volume fraction] 40.4 % 37-47 [facility] Work Phone: Laboratory - Chemistry and C hemistry - challengeon 10-27-2021 ALP [Catalytic activity/Vol] 55 U/L 45-117 [facility] Work Phone: ALT [Catalytic activity/Vol] 25 U/L 13-56 [facility] Work Phone: CO2 [Moles/Vol] 28.0 mmol/L 21.0-32.0 [facility] Work Phone: Globulin (S) [Mass/Vol] 3.5 g/dL 2.2-4.2 [facility] Work Phone: Urea nitrogen/Creatinine [Mass ratio] 17.8 mg/mg 10-20 [facility] Work Phone: Laboratory - Hematology and Cell countson 10-27-2021 Erythrocyte distribution width (RBC) [Entitic vol] 45.9 fL 35.1-43.9 [facility] Work Phone: Erythrocyte distribution width (RBC) [Ratio] 14.4 % 11.6-14.6 [facility] Work Phone: Immature granulocytes/100 WBC (Bld) 0.200 % 0.0-0.9 [facility] Work Phone: Comment on above: IG% - Immature Granu locytes (promyelocytes, myelocytes and metamyelocytes) > 1% indicates that a LEFT SHIFT is Present. MCH (RBC) [Entitic mass] 29.5 pg 27.0-32.0 [facility] Work Phone: Nucleated RBC/100 WBC (Bld) [Ratio] 0 % 0-5 [facility] Work Phone: MCHC Auto (RBC) [Mass/Vol]on 10-27-2021 MCHC (RBC) [Mass/Vol] 33.9 g/dL 32-36 [facility] Work Phone: No Panel Informationon 10-27 Estimated GFR (MDRD) Amer 64 mL/min >60 [facility] Work Phone: Comment on above: GFR Calc Estimated GFR (MDRD) Non-Af Amer 53 mL/min >60 [facility] Work Phone: Comment on above: Non- GFR Calc Thyroid Stimulating Hormone (TSH) 6.94 uIU/mL 0.358-3.74 [facility] Work Phone: Vitamin D 25-Hydroxy 67.3 ng/mL [facility] Work Phone: Comment on above: Vitamin D 25(OH) Sta tus Range Deficiency <20 ng/mL (50nmol/L) Insufficiency 20 - 30 ng/mL (50 - 75 nmol/L) Sufficiency 30 - 100 ng/mL (75 - 250 nmol/L) Toxicity >100 ng/mL (>250 nmol/L) Platelets bldon 10-27-2021 Platelets (Bld) [#/Vol] 354 10*3/uL 150-450 [facility] Work Phone: Serum or plasma albumin dot urement (mass/volume)on 10-27-2021 Albumin [Mass/Vol] 3.8 g/dL 3.2-5.0 [facility] Work Phone: Serum or plasma albumin/glob ulin mass ratioon 10-27-2021 Albumin/Globulin [Mass ratio] 1.1 {ratio} 0.9-2.4 [facility] Work Phone: Serum or plasma calcium dot urement (mass/volume)on 10-27-2021 Calcium [Mass/Vol] 9.6 mg/dL 8.5-10.1 [facility] Work Phone: Serum or plasma creatinine m easurement (mass/volume)on 10-27-2021 Creatinine [Mass/Vol] 1.07 mg/dL 0.55-1.02 [facility] Work Phone: Comment on above: The validity of the calculated GFR & GFRAA in patients over 70 years has not been determined. Clinical correlation is essential. Serum or plasma urea nitroge n measurement (mass/volume)on 10-27-2021 Urea nitrogen [Mass/Vol] 19 mg/dL 7-18 [facility] Work Phone: Thin prep Papanicolaou smear with manual screeningon 10-27-2021 Thin prep Papanicolaou smear with manual screening 12 U/L 15-37 [facility] Work Phone: Thin prep Papanicolaou smear with manual screening 7 5-15 [facility] Work Phone: Basophil percentageon 2021 Basophil percentage 4.0 mg/dL 2.5-4.9 [facility] Work Phone: Chloride [Moles/Vol] 103 mmol/L 98-[address] [facility] [address] [facility] Work Phone: Glucose [Mass/Vol] 184 mg/dL 74-106 [facility] Work Phone: Comment on above: Fasting Glucose resu lt greater than or equal to 126 mg/dL suggests DIABETES MELLITUS per A.D.A. criteria. Potassium [Moles/Vol] 4.6 mmol/L 3.5-5.[address] [facility] Work Phone: Sodium [Moles/Vol] 137 mmol/L 136-145 [facility] Work Phone: WBC (Bld) [#/Vol] 7.1 10*3/uL 4.4-11.0 [facility] Work Phone: Blood erythrocytes count (nu mber/volume)on 09-19-2021 RBC (Bld) [#/Vol] 4.68 10*6/uL 4.2-5.[facility]: Blood hemoglobin measurement (mass/volume)on 09-19-2021 Hemoglobin (Bld) [Mass/Vol] 13.3 g/dL 12.0-15.0 [facility] Work Phone: Blood platelet mean volumeon 09-19-2021 Platelet mean volume (Bld) [Entitic vol] 9.6 fL 6.2-12.0 [facility] Work Phone: Determination of erythrocyte mean corpuscular volume (MCV)on 09-19-2021 MCV (RBC) [Entitic vol] 86.1 fL 81-99 [facility] Work Phone: Hematocrit Auto (Bld) [Volum e fraction]on 09-19-2021 Hematocrit (Bld) [Volume fraction] 40.3 % 37-47 [facility] Work Phone: Laboratory - Chemistry and C hemistry - challengeon 09-19-2021 CO2 [Moles/Vol] 26.0 mmol/L 21.0-32.0 [facility] Work Phone: Urea nitrogen/Creatinine [Mass ratio] 19.8 mg/mg 10-20 [facility] Work Phone: Laboratory - Hematology and Cell countson 09-19-2021 Erythrocyte distribution width (RBC) [Entitic vol] 43.8 fL 35.1-43.9 [facility] Work Phone: Erythrocyte distribution width (RBC) [Ratio] 14.1 % 11.6-14.6 [facility] Work Phone: MCH (RBC) [Entitic mass] 28.4 pg 27.0-32.0 [facility] Work Phone: MCHC Auto (RBC) [Mass/Vol]on 09-19-2021 MCHC (RBC) [Mass/Vol] 33.0 g/dL 32-36 [facility] Work Phone: No Panel Informationon 09-19 Estimated GFR (MDRD) Amer 69 mL/min >60 [facility] Work Phone: Comment on above: GFR Calc Estimated GFR (MDRD) Non-Af Amer 57 mL/min >60 [facility] Work Phone: Comment on above: Non- GFR Calc Parathyroid Hormone (Intact) 31.0 pg/mL 18.4-80.1 [facility] Work Phone: Platelets bldon 09-19-2021 Platelets (Bld) [#/Vol] 330 10*3/uL 150-450 [facility] Work Phone: Serum or plasma albumin dot urement (mass/volume)on 09-19-2021 Albumin [Mass/Vol] 3.6 g/dL 3.2-5.0 [facility] Work Phone: Serum or plasma calcium dot urement (mass/volume)on 09-19-2021 Calcium [Mass/Vol] 9.8 mg/dL 8.5-10.1 [facility] Work Phone: Serum or plasma creatinine m easurement (mass/volume)on 09-19-2021 Creatinine [Mass/Vol] 1.01 mg/dL 0.55-1.02 [facility] Work Phone: Comment on above: The validity of the calculated GFR & GFRAA in patients over 70 years has not been determined. Clinical correlation is essential. Serum or plasma urea nitroge n measurement (mass/volume)on 09-19-2021 Urea nitrogen [Mass/Vol] 20 mg/dL 7-18 [facility] Work Phone: Basophil percentageon 2020 Basophil percentage 3.6 mg/dL 2.5-4.9 [facility] Work Phone: Chloride [Moles/Vol] 102 mmol/L 98-107 [facility]: Glucose [Mass/Vol] 191 mg/dL 74-106 [facility] Work Phone: Comment on above: Fasting Glucose resu lt greater than or equal to 126 mg/dL suggests DIABETES MELLITUS per A.D.A. criteria.Please note revised GLUCOSE reference range effective 2017. Potassium [Moles/Vol] 4.3 mmol/L 3.5-5.1 [facility] Work Phone: Sodium [Moles/Vol] 136 mmol/L 136-145 [facility] Work Phone: Laboratory - Chemistry and C hemistry - challengeon 07-14-2021 CO2 [Moles/Vol] 27.0 mmol/L 21.0-32.0 [facility] Work Phone: Urea nitrogen/Creatinine [Mass ratio] 22.6 mg/mg 10-20 [facility] Work Phone: No Panel Informationon 07-14 Estimated GFR (MDRD) Amer 72 mL/min >60 [facility] Work Phone: Comment on above: GFR Calc Estimated GFR (MDRD) Non-Af Amer 59 mL/min >60 [facility] Work Phone: Comment on above: Non- GFR Calc Serum or plasma albumin dot urement (mass/volume)on 07-14-2021 Albumin [Mass/Vol] 3.4 g/dL 3.2-5.0 [facility] Work Phone: Serum or plasma calcium dot urement (mass/volume)on 07-14-2021 Calcium [Mass/Vol] 9.6 mg/dL 8.5-10.1 [facility] Work Phone: Serum or plasma creatinine m easurement (mass/volume)on 07-14-2021 Creatinine [Mass/Vol] 0.97 mg/dL 0.55-1.02 [facility] Work Phone: Comment on above: The validity of the calculated GFR & GFRAA in patients over 70 years has not been determined. Clinical correlation is essential. Serum or plasma urea nitroge n measurement (mass/volume)on 07-14-2021 Urea nitrogen [Mass/Vol] 22 mg/dL 7-18 [facility] Work Phone: Urine creatinine measurement (mass/volume)on 07-14-2021 Creatinine (U) [Mass/Vol] 144.00 mg/dL NO RANGE EST. [facility] Work Phone: Urine protein measurement (m ass/volume)on 07-14-2021 Protein (U) [Mass/Vol] 13.8 mg/dL 0.0-11.8 [facility] Work Phone: Urine protein/creatinine mas s ratioon 07-14-2021 Protein/Creatinine (U) [Mass ratio] 96 mg/g CRE 0-200 [facility] Work Phone: .Auto Diffon 02-19-2019 Ammonia (P) [Mass/Vol] 0.60 10 3/mcL Normal 0.15-1.00 [facility] ([place]) Comment on above: Performed By: #### A ROJAS, CBC, ADIFF #### [facility] [address] [place] [id number] #### B12, GFR, FE, BMP, FOL #### [address] [address] Basophils (Bld) [#/Vol] 0.00 10 3/mcL Normal 0.00-0.19 [facility] ([place]) Comment on above: Performed By: #### A ROJAS, CBC, ADIFF #### [place] [address] #### B12, GFR, FE, BMP, FOL #### [address] [address] Basophils/100 WBC (Bld) 0.4 % Normal 0.0-2.5 [facility] ([place]) Comment on above: Performed By: #### A ROJAS, CBC, ADIFF #### [place] [address] #### B12, GFR, FE, BMP, FOL #### [address] [address] Eosinophils (Bld) [#/Vol] 0.20 10 3/mcL Normal 0.00-0.40 [facility] ([place]) Comment on above: Performed By: #### A ROJAS, CBC, ADIFF #### [place] [address] #### B12, GFR, FE, BMP, FOL #### [address] [address] Eosinophils/100 WBC (Bld) 2.5 % Normal 0.0-7.0 [facility] ([place]) Comment on above: Performed By: #### A ROJAS, CBC, ADIFF #### [place] [address] #### B12, GFR, FE, BMP, FOL #### [address] [address] Lymphocytes (Bld) [#/Vol] 1.50 10 3/mcL Normal 0.77-3.85 [facility] ([place]) Comment on above: Performed By: #### A ROJAS, CBC, ADIFF #### [place] [address] #### B12, GFR, FE, BMP, FOL #### [address] [address] Lymphocytes/100 WBC (Bld) 21.3 % Normal 10.0-50.0 [facility] ([place]) Comment on above: Performed By: #### A ROJAS, CBC, ADIFF #### [address] [address] #### B12, GFR, FE, BMP, FOL #### [address] [address] Monocytes/100 WBC (Bld) 8.1 % Normal 1.7-13.0 [facility] ([place]) Comment on above: Performed By: #### A ROJAS, CBC, ADIFF #### [address] [address] #### B12, GFR, FE, BMP, FOL #### [address] [address] Neutrophils/100 WBC (Bld) 67.7 % Normal 37.0-80.0 [facility] ([place]) Comment on above: Performed By: #### A ROJAS, CBC, ADIFF #### [address] [address] #### B12, GFR, FE, BMP, FOL #### [address] [address] .GFRon 02-19-2019 GFR Non- 50 ml/min/1.73sqm Normal [facility] ([place]) Comment on above: Result Comment: GFR Population [...] By: #### A ROJAS, CBC, ADIFF #### [address] [address] #### B12, GFR, FE, BMP, FOL #### [address] [address] GFR 61 ml/min/1.73sqm Normal [facility] ([place]) Comment on above: Result Comment: GFR Population [...] By: #### A ROJAS, CBC, ADIFF #### [address] [address] #### B12, GFR, FE, BMP, FOL #### [address] [address] .NEUABSon 02-19-2019 Neutrophils (Bld) [#/Vol] 4.90 10 3/mcL Normal 2.85-6.16 [facility] ([place]) Comment on above: Performed By: #### A ROJAS, CBC, ADIFF #### [address] [address] #### B12, GFR, FE, BMP, FOL #### [address] [address] B12on 02-19-2019 Cobalamin (Vitamin B12) [Mass/Vol] 258 pg/mL Normal 211-911 [facility] ([place]) Comment on above: Performed By: #### A ROJAS, CBC, ADIFF #### [address] [address] #### B12, GFR, FE, BMP, FOL #### [address] [address] BMPon 02-19-2019 Calcium [Mass/Vol] 8.8 mg/dL Normal 8.4-10.2 [facility] ([place]) Comment on above: Performed By: #### A ROJAS, CBC, ADIFF #### [address] [address] #### B12, GFR, FE, BMP, FOL #### [address] [address] Chloride [Moles/Vol] 103 mmol/L Normal 98-107 [facility] ([place]) Comment on above: Performed By: #### A ROJAS, CBC, ADIFF #### [address] [address] #### B12, GFR, FE, BMP, FOL #### [address] [address] CO2 [Moles/Vol] 32 mmol/L High 23-31 [facility] ([place]) Comment on above: Performed By: #### A ROJAS, CBC, ADIFF #### [place] [address] #### B12, GFR, FE, BMP, FOL #### [address] [address] Creatinine [Mass/Vol] 1.07 mg/dL High 0.55-1.02 [facility] ([place]) Comment on above: Performed By: #### A ROJAS, CBC, ADIFF #### [address] [address] #### B12, GFR, FE, BMP, FOL #### [address] [address] Electrolyte Balance 4.0 mEq/L Normal Count includes the [facility] ([place]) Comment on above: Performed By: #### A ROJAS, CBC, ADIFF #### [place] [address] #### B12, GFR, FE, BMP, FOL #### [address] [address] Glucose [Mass/Vol] 105 mg/dL Normal 83-110 [facility] ([place]) Comment on above: Performed By: #### A ROJAS, CBC, ADIFF #### [address] [address] #### B12, GFR, FE, BMP, FOL #### [address] [address] Potassium [Moles/Vol] 4.2 mmol/L Normal 3.5-5.1 [facility] ([place]) Comment on above: Performed By: #### A ROJAS, CBC, ADIFF #### [address] [address] #### B12, GFR, FE, BMP, FOL #### [address] [address] Sodium [Moles/Vol] 139 mmol/L Normal 136-145 [facility] ([place]) Comment on above: Performed By: #### A ROJAS, CBC, ADIFF #### [place] [address] #### B12, GFR, FE, BMP, FOL #### [address] [address] Urea nitrogen [Mass/Vol] 16 mg/dL Normal 7-18 [facility] ([place] Comment on above: Performed By: #### A ROJAS, CBC, ADIFF #### [place] [address] #### B12, GFR, FE, BMP, FOL #### [address] [address] Urea nitrogen/Creatinine [Mass ratio] 15 ratio Normal 7-27 [facility] ([place] Comment on above: Performed By: #### A ROJAS, CBC, ADIFF #### [address] [address] #### B12, GFR, FE, BMP, FOL #### [address] [address] CBCon 02-19-2019 Erythrocyte distribution width (RBC) [Ratio] 18.4 % High 11.5-14.5 [facility] ([place] Comment on above: Performed By: #### A ROJAS, CBC, ADIFF #### [address] [address] #### B12, GFR, FE, BMP, FOL #### [place] [address] Hematocrit (Bld) [Volume fraction] 32.9 % Low 37.0-47.0 [facility] ([place]) Comment on above: Performed By: #### A ROJAS, CBC, ADIFF #### [place] [address] #### B12, GFR, FE, BMP, FOL #### [place] [address] Hemoglobin (Bld) [Mass/Vol] 11.0 G/dL Low 12.0-16.0 [facility] ([place] Comment on above: Performed By: #### A ROJAS, CBC, ADIFF #### [place] [address] #### B12, GFR, FE, BMP, FOL #### [place] [address] MCH (RBC) [Entitic mass] 27.5 pg Normal 27.0-31.2 [facility] ([place] Comment on above: Performed By: #### A ROJAS, CBC, ADIFF #### [place] [address] #### B12, GFR, FE, BMP, FOL #### [place] [address] MCHC (RBC) [Mass/Vol] 33.5 G/dL Normal 33.0-37.0 [facility] ([place]) Comment on above: Performed By: #### A ROJAS, CBC, ADIFF #### [place] [address] #### B12, GFR, FE, BMP, FOL #### [place] [address] MCV (RBC) [Entitic vol] 82.1 fL Normal 80.0-94.0 [facility] ([place] Comment on above: Performed By: #### A ROJAS, CBC, ADIFF #### [place] [address] #### B12, GFR, FE, BMP, FOL #### [address] [address] Platelet mean volume (Bld) [Entitic vol] 7.6 fL Normal 7.4-10.4 [facility] ([place] Comment on above: Performed By: #### A ROJAS, CBC, ADIFF #### [place] [address] #### B12, GFR, FE, BMP, FOL #### [address] [address] Platelets (Bld) [#/Vol] 251 10 3/mcL Normal 130-400 [facility] ([place] Comment on above: Performed By: #### A ROJAS, CBC, ADIFF #### [place] [address] #### B12, GFR, FE, BMP, FOL #### [place] [address] RBC (Bld) [#/Vol] 4.00 10 6/mcL Low 4.20-5.40 [facility] ([place] Comment on above: Performed By: #### A ROJAS, CBC, ADIFF #### [place] [address] #### B12, GFR, FE, BMP, FOL #### [place] [id number] WBC (Bld) [#/Vol] 7.20 10 3/mcL Normal 4.60-10.80 [facility] ([place] Comment on above: Performed By: #### A ROJAS, CBC, ADIFF #### [place] [address] #### B12, GFR, FE, BMP, FOL #### [address] [address] FEon 02-19-2019 Iron [Mass/Vol] 43 ug/dL Low 50-70 [facility] ([place] Comment on above: Performed By: #### A ROJAS, CBC, ADIFF #### [place] [address] [place], [place] [address] #### B12, GFR, FE, BMP, FOL #### [facility] [address] [place] [address] FOLon 02-19-2019 Folate 27.2 ng/mL High 1.1-20.0 [facility] ([place]) Comment on above: Performed By: #### A ROJAS, CBC, ADIFF #### [place] [address] [place], [place] [address] #### B12, GFR, FE, BMP, FOL #### [facility] [address] [place] [address] XR KNEE 1 OR 2 VIEWS LEFTon [...] PM Sign Date: 02/18/2019 1:51:39 PM Normal [facility] ([place]) CT KNEE W/O CONTRAST LEFTon 02-04-2019 CT [...] PM Sign Date: 02/04/2019 6:02:48 PM Normal [facility] ([place]) Culture, urine Bacteria identified Cx Nom (U) Positive [facility] Work Phone: Vital Signs Date Time Vital Sign Value Performing Clinician John huston 08-29-2022 09:41-0500 Body height 173.[address] Sumit Whipple Work Phone: [facility] 08-29-2022 09:41-0500 Body mass index (BMI) [Ratio] 27.3 kg/m2 Dr. Sumit Whipple Work Phone: [facility] 08-29-2022 09:41-0500 Body temperature 97.2 [degF] Dr. Sumit Whipple Work Phone: [facility] 08-29-2022 09:41-0500 Body weight 82.[address] Sumit Whipple Work Phone: [facility] 08-29-2022 09:41-0500 Diastolic blood pressure 75 mm[Hg] Dr. Sumit Whipple Work Phone: [facility] 08-29-2022 09:41-0500 Heart rate 68 /min Dr. Sumit Whipple Work Phone: [facility] 08-29-2022 09:41-0500 Respiratory rate 18 /min Dr. Sumit Whipple Work Phone: [facility] [facility] 08-29-2022 09:41-0500 SaO2% (BldA) [Mass fraction] 96 % Dr. Sumit Whipple Work Phone: [facility] 08-29-2022 09:41-0500 Systolic blood pressure 150 mm[Hg] Dr. Sumit Whipple Work Phone: [facility] 12-07-2021 14:48-0400 Body height 173.99 cm [facility] Work Phone: 12-07-2021 14:48-0400 Body weight 91.53 kg [facility] Work Phone: 10-24-2021 11:18-0400 Body height 173.99 cm [facility] Work Phone: 10-24-2021 11:18-0400 Body weight 93.98 kg [facility] Work Phone: 10-10-2021 10:31-0500 Body weight 94.71 kg [facility] Work Phone: Encounters Encounter Date Encounter Type Care Provider Facility Start: 03-16-2025 ambulatory Sumit Chi Sarabjit Facility:[facility] Start: 03-02-2025 End: 03-02-2025 ambulatory Sumit Chi Sarabjit Facility:[facility] Start: 02-26-2025 End: 02-26-2025 ambulatory Sumit Chi Sarabjit Facility:[facility] Start: 02-20-2025 End: 02-20-2025 ambulatory Sumit Chi Sarabjit Facility:[facility] Start: 02-09-2025 ambulatory Sumit Chi Sarabjit Facility:[facility] Start: 02-02-2025 ambulatory Sumit Chi Sarabjit Facility:[facility] Start: 01-26-2025 ambulatory Sumit Chi Sarabjit Facility:[facility] Start: 01-19-2025 ambulatory Sumit Chi Sarabjit Facility:[facility] Start: 01-13-2025 End: 01-13-2025 ambulatory Sumit Chi Sarabjit Facility:[facility] Start: 01-12-2025 End: 01-12-2025 ambulatory Sumit Chi Sarabjit Facility:[facility] Start: 01-07-2025 ambulatory Sumit Chi Sarabjit Facility:[facility] Start: 01-07-2025 End: 01-10-2025 Evaluation and management of inpatient Sumit Chi Sarabjit Facility:[facility] Start: 12-26-2024 End: 12-26-2024 ambulatory Sumit Chi Sarabjit Facility:[facility] Start: 12-19-2024 End: 12-19-2024 ambulatory Sumit Chi Sarabjit Facility:[facility] Start: 12-09-2024 End: 12-09-2024 ambulatory Sumit Chi Sarabjit Facility:[facility] Start: 12-03-2024 End: 12-03-2024 ambulatory Collette Nieves Facility:[facility] Start: 11-25-2024 ambulatory Sumit Chi Sarabjit Facility:[facility] Start: 11-24-2024 ambulatory Sumti Chi Sarabjit Facility:[facility] Start: 11-18-2024 End: 11-18-2024 ambulatory Sumit Chi Sarabjit Facility:[facility] Start: 11-17-2024 End: 11-17-2024 ambulatory Sumit Chi Sarabjit Facility:[facility] Start: 11-14-2024 ambulatory Sumit Chi Sarabjit Facility:[facility] Start: 11-14-2024 End: 11-14-2024 Emergency department patient visit Sumit Chi Sarabjit Facility:[facility] Start: 10-21-2024 End: 10-21-2024 ambulatory Sumit Chi Sarabjit Facility:[facility] Start: 10-13-2024 End: 10-17-2024 Evaluation and management of inpatient Sumit Chi Sarabjit Facility:[facility] Start: 10-13-2024 ambulatory Sumit Chi Sarabjit Facility:[facility] Start: 10-08-2024 End: 10-08-2024 ambulatory Sumit Chi Sarabjit Facility:[facility] Start: 09-05-2024 End: 09-05-2024 ambulatory Sumit Chi Sarabjit Facility:[facility] Start: 09-04-2024 End: 09-04-2024 ambulatory Sumit Chi Sarabjit Facility:[facility] Start: 09-02-2024 End: 09-02-2024 ambulatory Sumit Chi Sarabjit Facility:[facility] Start: 07-03-2024 End: 07-03-2024 ambulatory Sumit Chi Sarabjit Facility:[facility] Start: 06-11-2024 End: 06-11-2024 ambulatory Sumit Chi Sarabjit Facility:[facility] Start: 05-21-2024 End: 05-21-2024 ambulatory Sumit Chi Sarabjit Facility:[facility] Start: 05-14-2024 End: 05-14-2024 ambulatory Sumit Chi Sarabjit Facility:[facility] Start: 03-26-2024 End: 03-26-2024 ambulatory Sumit Chi Sarabjit Facility:[facility] Start: 11-19-2023 End: 11-19-2023 ambulatory [facility] Work Phone: Start: 11-19-2023 End: 11-19-2023 Patient encounter procedure [facility]-Cat Scan, [facility] Work Phone: Start: 11-16-2023 End: 11-16-2023 ambulatory AGA GARCIA Facility:[facility] Start: 11-16-2023 End: 11-16-2023 Subsequent hospital visit by physician Xr [facility] Work Phone: Radiology Comment on above: Arthritis of foot [M 19.079] Start: 11-16-2023 End: 11-16-2023 Patient encounter procedure Aga Garcia Work Phone: Podiatry Comment on above: 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) (Primary Dx); Arthritis of foot; Callus of foot Start: 11-07-2023 End: 11-07-2023 ambulatory [facility] Work Phone: Start: 11-07-2023 End: 11-07-2023 Patient encounter procedure [facility]-Laboratory, Phy Office 3rd Flr Start: 07-31-2023 End: 07-31-2023 ambulatory [facility] Work Phone: Start: 07-31-2023 End: 07-31-2023 Patient encounter procedure [facility]-MRI - [facility] Work Phone: Start: 07-17-2023 End: 07-17-2023 ambulatory [facility] Work Phone: Start: 07-17-2023 End: 07-17-[address] [facility] Start: 05-09-2023 End: 05-09-2023 Patient encounter procedure [facility] Office 3rd Flr Start: 04-18-2023 End: 04-18-2023 ambulatory [facility] Work Phone: Start: 04-18-2023 End: 04-18-2023 Patient encounter procedure [facility] Office 3rd Flr Start: 11-01-2022 End: 11-01-[address] Sumit Whipple Work Phone: [facility] Work Phone: Start: 11-01-2022 End: 11-01-[address] Smuit Whipple Work Phone: [facility] Office 3rd Flr Start: 10-24-2022 End: 10-24-2022 Subsequent hospital visit by physician [facility] Work Phone: Radiology Comment on above: Foot pain, bilateral [M79.671, M79.672] Start: 10-12-2022 Refill Karoline Cervantes MD Work Phone: Psychiatry Comment on above: Refill Request Start: 08-29-2022 End: 08-29-[address] Sumit Whipple Work Phone: [facility] Work Phone: Start: 08-29-2022 End: 08-29-[address] [facility] Start: 08-29-2022 End: 08-29-[address] Sumit Whipple Work Phone: [facility] Start: 08-21-2022 End: 08-21-2022 ambulatory [facility] Work Phone: Start: 08-21-2022 End: 08-21-2022 Patient encounter procedure [facility]-Outpatient Breast Imaging Start: 05-17-2022 End: 05-17-2022 [facility] Karoline Cervantes MD Work Phone: Psychiatry Comment on above: Recurrent major depr essive disorder, in partial remission (HCC) (Primary Dx) Start: 05-04-2022 End: 05-04-2022 ambulatory [facility] Work Phone: Start: 05-04-2022 End: 05-04-2022 Patient encounter procedure [facility]-Laboratory, Phy Office 3rd Flr Start: 03-18-2022 Refill Karoline Cervantes MD Work Phone: Psychiatry Comment on above: Refill Request Start: 03-14-2022 Refill Karoline Cervantes MD Work Phone: Psychiatry Comment on above: Refill Request Start: 02-21-2022 End: 02-21-2022 Patient encounter procedure [facility]-Radiology, [facility] Start: 12-07-2021 End: 12-10-[address] [facility] Start: 11-17-2021 End: 11-17-2021 [facility] Karoline Cervantes MD Work Phone: Psychiatry Comment on above: Recurrent major depr essive disorder, in partial remission (HCC) (Primary Dx) Start: 10-27-2021 End: 10-27-2021 Patient encounter procedure [facility]-Laboratory, y Office 3rd Flr Start: 10-24-2021 End: 11-10-[address] [facility] Start: 10-24-2021 [facility] Start: 10-20-2021 End: 10-20-2021 Patient encounter procedure [facility]-Outpatient Breast Imaging Start: 10-10-2021 End: 10-10-[address] [facility] Start: 09-19-2021 End: 09-19-2021 Patient encounter procedure [facility]-Laboratory, Phy Office 3rd Flr Start: 07-25-2021 Patient encounter procedure [facility]-Ultrasound, [facility] Start: 07-14-2021 Patient encounter procedure [facility]-Laboratory, Phy Office 3rd Flr Start: 03-15-2018 End: 03-26-2018 Patient encounter [facility] Procedures Date Procedure Procedure Detail Performing [...] DTaP,Tdap,Td Vaccine (3 - Td or Tdap) [facility] Start: 09-23-2028 Urine microalbumin profile [facility] Start: 11-15-2024 Diabetic foot examination Diabetic Foot Exam [facility] Start: 08-13-2023 Advance Directive Discussion Advance Directive Discussion [facility] Start: 04-13-2023 Covid-19 Vaccine () Covid-19 Vaccine () [facility] Start: 04-13-2023 Influenza vaccination Influenza Vacc ine (#1) [facility] Start: 08-13-2022 ADVANCE DIRECTIVE DISCUSSION ADVANCE DIRECTIVE DISCUSSION [facility] Start: 06-13-2022 Glaucoma screening Dilated Retinal E xam [facility] Start: 06-13-2022 Hepatitis C antibody , confirmatory test DILATED RETINAL EXAM [facility] Start: 04-13-2022 Influenza vaccination INFLUENZA (#1) [facility] Start: 03-03-2022 COVID-19 VACCINE (5 - Booster for Pfizer series) COVID-19 VACCINE (5 - Booster for Pfizer series) [facility] Start: 11-11-2021 COVID-19 VACCINE (4 - Booster for Pfizer series) COVID-19 VACCINE (4 - Booster for Pfizer series) [facility] Start: 11-09-2021 3 comp foot exam completed DIABETIC FOOT EXAM [facility] Start: 09-04-2021 Colonoscopy COLONOSCOPY [facility] Start: 09-04-2021 COLORECTAL CANCER SCREENING COLORECTAL CANCER SCREENING [facility] Start: 08-13-2021 ADVANCE DIRECTIVE DISCUSSION ADVANCE DIRECTIVE DISCUSSION [facility] Start: 08-14-2020 ANNUAL PCP TEAM WATER QUALITY TECHNICIAN VIJAY DISEASE VISIT ANNUAL PCP TEAM CHRONIC DISEASE VISIT [facility] Start: 02-04-2020 Hemoglobin A1c measurement HbA1C [facility] Start: 02-04-2020 Hemoglobin A1c/Hemoglobin.total in Blood HBA1C [facility] Start: 12-27-2019 FECAL OCCULT BLOOD FECAL OCCULT BLOO D [facility] Start: 11-05-2019 Hepatitis B screening URINE ALBUMIN:CREATININE RATIO [facility] Start: 11-05-2019 Hepatitis B surface antibody level LDL CHOLESTEROL [facility] Start: 08-18-2015 PNEUMOCOCCAL: 65+ (2 - PCV) PNEUMOCOCCAL: 65+ (2 - PCV) [facility] Start: 2006 Hepatitis B Vaccine (1 of 3 - Risk 3-dose series) Hepatitis B Vaccine (1 of 3 - Risk 3-dose series) [facility] Start: 2006 RSV Vaccine (1 - 1-d ose 60+ series) RSV Vaccine (1 - 1-dose 60+ series) [facility] Start: 1996 SHINGRIX VACCINE (1 of 2) SHINGRIX VACCINE (1 of 2) [facility] Start: 1991 COLOGUARD (FIT-DNA) COLOGUARD (FIT-D NA) [facility] Start: [address] COLONOGRAPHY [facility] Start: 1991 SIGMOIDOSCOPY SIGMOIDOSCOPY [facility] Start: 1964 ANNUAL PCP TEAM WATER QUALITY TECHNICIAN VIJAY DISEASE VISIT ANNUAL PCP TEAM CHRONIC DISEASE VISIT [facility] Start: 1964 BP CONTROLLED (<130/80) BP CONTROLLE D (<130/80) [facility] XR Foot - left AP an d Lateral and oblique XR FOOT GENERAL 3V AP/LAT/OBL LEFT Radiology Routine Arthritis of foot 11/16/2023 12:41 PM EDT [facility] Work Phone: End: 12-15-2024 XR Foot - left AP and Lateral and oblique XR FOOT GENERAL 3V AP/LAT/OBL LEFT Radiology Routine Arthritis of foot 1 Occurrences starting 11/16/2023 until 12/15/2024 [facility] Work Phone: Comment on above: 1 Occurrences starti ng 11/16/2023 until 12/15/2024 [facility] Immun[facility] Immunization Date Immunization Notes Care Provider Fa cility 04-20-2021 influenza virus vacc ine, unspecified formulation Xr Mob Work Phone: [facility] 10-02-2019 hepatitis A vaccine, adult dosage Karoline Cervantes MD Work Phone: [facility] Work Phone: 06-05-2019 influenza, high dose seasonal, preservative-free Karoline Cervantes MD Work Phone: [facility] 06-30-2017 influenza, seasonal, injectable Karoline Cervantes MD Work Phone: [facility] 08-18-2014 pneumococcal conjuga te vaccine, 13 valent Karoline Cervantes MD Work Phone: [facility] 08-18-2014 pneumococcal polysaccharide vaccine, 23 valent Karoline Cervantes MD Work Phone: [facility] 04-29-2013 influenza virus vacc ine, unspecified formulation Karoline Cervantes MD Work Phone: [facility] 05-10-2012 influenza virus vacc ine, unspecified formulation Karoline Cervantes MD Work Phone: [facility] 10-01-2009 pneumococcal polysaccharide vaccine, 23 valent Karoline Cervantes MD Work Phone: [facility] Work Phone: 05-13-2009 tetanus and diphther ia toxoids, adsorbed, preservative free, for adult use (2 Lf of tetanus toxoid and 2 Lf of diphtheria toxoid) Karoline Cervantes MD Work Phone: [facility] Work Phone: Payers Date Payer Category Payer Self-pay [id number] 2011 Medicare [id number] 2011 Medicare MEDICARE MEDICAR E A AND B [id number] 2011-Present [phone] [place] [id number] Medicare [id number] 2011 Medicare MEDICARE MEDICAR E A AND B [id number] 2011-Present [phone] [address] [place] [id number] Medicare [id number] 1999 Unknown [id number] 1999 Unknown ANTHEM ANTHEM BC BS FEP PPO [id number] 1999-Present [id number] [place] [id number] PPO [id number] 1999 Unknown ANTHEM ANTHEM BC BS FEP PPO [id number] 1999-Present [id number] [place] [id number] PPO [id number] [id number] Unknown [id number] 2.16.840.1.762842.3.579.2.462 Unknown [id number] 2.16840.1.391774.3.579.2.462 Unknown [id number] 2.16.840.1.622090.3.579.2.462 Unknown [id number] 2.16.840.1.391453.3.579.2.462 Unknown [id number] 2.840.1.040346.3.579.2.462 Unknown [id number] 2.840.1.041224.3.579.2.462 Unknown [id number] 2.840.1.499504.3.579.2.462 Unknown [id number] 2.840.1.548389.3.579.2.462 Unknown [id number] 2.840.1.234338.3.579.2.462 Unknown [id number] 2.840.1.454424.3.579.2.462 Unknown [id number] 2.840.1.094571.3.579.2.462 Unknown [id number] 2.840.1.536625.3.579.2.462 Unknown [id number] 2.840.1.830764.3.579.2.462 Unknown [id number] 2.16.840.1.163196.3.579.2.462 Unknown [id number] 2.16.840.1.713402.3.579.2.462 Unknown [id number] 2.16.840.1.352277.3.579.2.462 Unknown [id number] 2.16.840.1.276240.3.579.2.462 Unknown [id number] 2.16840.1.899290.3.579.2.462 Unknown [id number] 2.16.840.1.177267.3.579.2.462 Unknown [id number] 2.16.840.1.595733.3.579.2.462 Unknown [id number] 2.16.840.1.391377.3.579.2.462 Unknown [id number] 2.840.1.875923.3.579.2.462 Unknown [id number] 2.16840.1.395192.3.579.2.462 Unknown [id number] 2.840.1.591170.3.579.2.462 Unknown [id number] 2.840.1.217978.3.579.2.462 Unknown [id number] 2.840.1.413193.3.579.2.462 Unknown [id number] 2.840.1.348274.3.579.2.462 Unknown [id number] 2.840.1.781875.3.579.2.462 Unknown [id number] 2.840.1.845685.3.579.2.462 Unknown [id number] 2.840.1.766157.3.579.2.462 Unknown [id number] 2.840.1.180477.3.579.2.462 Unknown [id number] 2.840.1.442231.3.579.2.462 Unknown [id number] 2.840.1.710155.3.579.2.462 Unknown [id number] 2.16.840.1.591401.3.579.2.462 Unknown [id number] 2.840.1.028364.3.579.2.462 Unknown [id number] 2.840.1.522342.3.579.2.462 Unknown [id number] 2.16.840.1.951958.3.579.2.462 Unknown [id number] 2.16.840.1.299381.3.579.2.462 Unknown [id number] 2.16.840.1.099205.3.579.2.462 Unknown [id number] 2.16.840.1.853357.3.579.2.462 Unknown [id number] 2.16.840.1.729967.3.579.2.462 Unknown [id number] 2.16.840.1.527886.3.579.2.462 Unknown [id number] 2.16.840.1.318663.3.579.2.462 Unknown [id number] 2.16.840.1.050043.3.579.2.462 Unknown [id number] 2.840.1.696831.3.579.2.462 Unknown [id number] 2.16840.1.953999.3.579.2.462 Social History Date Type Detail Facility Start: 08-24-2020 End: 08-29-2022 Tobacco smoking status NMIS Unknown if ever smoked [facility] Start: 1945 Sex Assigned At Female [facility] Start: 04-03-2011 Tobacco smoking stat us NMIS Never smoked tobacco [facility] Start: 08-11-2021 End: 11-16-2023 Alcohol intake Current drinker of alcohol (finding) [facility] Start: 08-18-2014 History SDOH Alcohol Comment once or twice per week [facility] Start: 04-03-2011 Tobacco use and exposure Smokeless tobacco non-user [facility] Work Phone: Start: 09-06-2022 End: 10-24-2022 History of Social function [facility] Start: 09-06-2022 End: 10-24-2022 Tobacco use panel [facility] Adult Depression Screening Assessment 4 [facility] Start: 04-09-2019 Gender identity Identifies as female gender (finding) [facility] Start: 08-28-2019 Sexual orientation Heterosexual (fin ding) [facility] Medical Equipment Procedure Code Equipment Code Equipment Origin al Text Equipment Identifier Dates 0---Lens Iol +15 .5 Ana Acrsf Iq - [id number] Start: 08-21-2013 0---Lens Iol +15 Ana Acrsf Iq 13 - [id number] Start: 09-04-2013 Comment on above: Description: [...] Date & Type Note Facility 01-10-2025 Note [facility] 10-17-2024 Note [facility] 10-13-2024 Note [facility] 11-16-2023 Note HNO ID: [id number] Author: DANIEL SCHULTE RN Service: ? Author Type: Registered Nurse Type: Progress Notes Filed: 11/16/2023 12:51 Note Text: Per Dr. GarciaAracely was provided with Gel Powerstep Inserts, size 11-12 Womens, and instructed/educated in its application, wear, and care. All questions were answered, and patient was able to demonstrate competence with the necessary skills to utilize the above equipment. Daniel Schulte RN [facility] 11-16-2023 Note HNO ID: [id number] Author: KRISTINA ESCOBAR RT(R) Service: Radiology Author [...] PATIENT PRESENTS WITH AN IMPLANTABLE OR ATTACHED LIQUID HYDROGEN PLANT OPERATOR: No RADIOLOGY DEPARTMENT: General X-ray: Exam(s) Completed: Lower Extremity X-Ray(s): Foot, Left and Wt. Bearing PERIPHERAL IV DATA: Not applicable SIGNED BY: RT Charbel(R) November 16, 2023 12:32 PM [facility] 11-16-2023 Note HNO ID: [id number] Author: AGA GARCIA, ? Service: ? Author [...] polyp, 8 ye (more content not included)... [facility] 11-16-2023 Note HNO ID: [id number] Author: DANIEL SCHULTE, NADER Service: ? Author [...] over the last few months. YANELI- 10/24/22 [facility] 11-16-2023 History of Presen t illness [...] PATIENT PRESENTS WITH AN IMPLANTABLE OR ATTACHED LIQUID HYDROGEN PLANT OPERATOR: No RADIOLOGY DEPARTMENT: General X-ray: Exam(s) Completed: Lower Extremity X-Ray(s): Foot, Left and Wt. Bearing PERIPHERAL IV DATA: Not applicable SIGNED BY: RT Charbel(R) November 16, 2023 12:32 PM documented in this encounter [facility] 11-16-2023 History of Presen t illness [...] history since last visit. PAIN EVALUATION 11/15/2023 [id number] Pain Location: Toe Duration Amount of Time: [...] L4 & L5 . Dr Fraser in [facility] PAST SURGICAL HISTORY OF 05/2009 gastric sleeve [...] months. YANELI- 10/24/22 documented in this encounter [facility] 11-16-2023 Instructions Aga Garcia - 11/16/2023 12:00 [...] (or decreased sensation in your feet) a custom stock maker should always cut your toenails. Be Careful [...] Go to your health care provider or custom stock maker to treat these conditions. Powerstep Original Full length. Can purchase at [facility] Runner and boots,shoes and more here in [place], [employer] in [place] or [place]. Also can find in [place] in [facility]. Powersteps can also be purchased online, [...] fits well together documented in this encounter [facility] 10-24-2022 History of Presen t illness Narrative [...] 2022 9:10 AM documented in this encounter [facility] 05-17-2022 History of Presen t illness Narrative Virtual Psychiatric Visit 30 minutes with patient consent Patient Identification: WF many years from a 2 yr marriage, Retired [employer] 1998, no children. First dx Depression [facility] [id number] Moss and a therapist in [facility]. Tried Prozac (unclear response), Lexapro (worked -- switched to Cymbalta for pain). Saw [facility] Present Psychiatric Medications: Cymbalta 30 mg Wellbutrin XL 300 mg CC: medication follow up HPI: Aracely states she is doing well overall. Mood stable. Good interest and motivation. Eating and sleeping well. Overwhelmed at times when busy. Stressed with some issues at mandaeism which is dying and may need to combine with another anglican. Enjoys mandaeism and [employer] study. Had a big family reunion recently which was busy but fun -- still has sisters staying with her. Medical health is very good -- has been able to discontinue some medications and has lost 40 lbs in past year. 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 Medication working well. [...] L4 & L5 . Dr Fraser in [facility] PAST SURGICAL HISTORY OF 05/2009 gastric sleeve [...] in own home Vocational Situation: retired 1998 [facility] Support Systems: Brother, sisters, gf Leisure: volunteering, ipad, reading, TV, crafting Spiritual: Raised Denominational. Adventism : denies FAMILY PSYCHIATRIC HISTORY: Brother with [...] Karoline Cervantes MD documented in this encounter [facility] 11-17-2021 History of Presen t illness Narrative Virtual Psychiatric Visit 30 minutes with patient consent Patient Identification: WF many years from a 2 yr marriage, Retired [employer] 1998, no children. First dx Depression [facility] [id number] Moss and a therapist in [facility]. Tried Prozac (unclear response), Lexapro (worked [...] and is feeling better. Working with a vp design and has lost some weight. Seeing a new counselor for a couple of sessions and feels it has brought up some important issues -- loss of best friend 10 yrs ago and missing the closeness of a relationship after end of last one. Very active at mandaeism. Spends time with brother. Having family over [...] L4 & L5 . Dr Fraser in [place] PAST SURGICAL HISTORY OF 05/2009 gastric sleeve [...] in own home Vocational Situation: retired 1998 [facility] Support Systems: Brother, sisters, gf Leisure: volunteering, ipad, reading, TV, crafting Spiritual: Raised Denominational. Adventism : denies FAMILY PSYCHIATRIC HISTORY: Brother with [...] Karoline Cervantes MD documented in this encounter [facility] 09-04-2013 History of Past i llness Narrative Problem Noted Date Resolved Date Cataract, left eye 09/04/2013 09/04/2013 Other and combined forms of senile cataract 02/1208/21/2013 Depression 09/07/2014 documented as of this encounter (statuses as of 11/17/2021) [facility]2014 History of Past illness Narrative* Problem Noted Date Resolved Date Cataract, left eye 09/04/2013 09/04/2013 Other and combined forms of senile cataract 07/3 08/21/2013 Depression 09/07/2014 documented as of this encounter (statuses as of 03/15/2022) [facility] History of Past illness Narrative* Problem Noted Date Resolved Date Cataract, left eye 09/04/2013 09/04/2013 Other and combined forms of senile cataract 07/3 08/21/2013 Depression 09/07/2014 documented as of this encounter (statuses as of 03/20/2022) [facility] History of Past illness Narrative* Problem Noted Date Resolved Date Cataract, left eye 09/04/2013 09/04/2013 Other and combined forms of senile cataract 07/3 08/21/2013 Depression 09/07/2014 documented as of this encounter (statuses as of 05/17/2022) [facility] History of Past illness Narrative* Problem Noted Date Resolved Date Cataract, left eye 09/04/2013 09/04/2013 Other and combined forms of senile cataract 07/3 08/21/2013 Depression 09/07/2014 documented as of this encounter (statuses as of 10/12/2022) [facility] History of Past illness Narrative* Problem Noted Date Diagnosed Date Resolved Date Cataract, left eye 09/04/2013 4 Other and combined forms of senile cataract 03/11/2013 08/21/2013 Depression 09/07/2014 documented as of this encounter (statuses as of 06/16/2023) [facility] History of Past illness Narrative* Problem Noted Date Diagnosed Date Resolved Date Cataract, left eye 09/04/2013 4 Other and combined forms of senile cataract 03/11/2013 08/21/2013 Depression 09/07/2014 documented as of this encounter (statuses as of 11/17/2023) [facility] History of Past illness Narrative* Problem Noted Date Diagnosed Date Resolved Date Cataract, left eye 09/04/2013 4 Other and combined forms of senile cataract 03/11/2013 08/21/2013 Depression 09/07/2014 documented as of this encounter (statuses as of 11/16/2023) [facility]* Diagnosis Recurrent major depressive disorder, in partial remission (HCC)- Primary documented in this encounter [facility] note* Diagnosis Recurrent major depressive disorder, in partial remission (HCC)- Primary documented in this encounter [facility] note* Diagnosis Onset Date Resolution Status Cyst of left breast acute [facility] Work Phone: Evaluation note* Diagnosis Foot pain, bilateral Pain in limb documented in this encounter [facility] note* Diagnosis Arthritis of foot Unspecified arthropathy, ankle and foot documented in this encounter [facility] note* Diagnosis Other diabetic neurological complication associated with type 2 diabetes mellitus (HCC)- Primary Arthritis of foot Unspecified arthropathy, ankle and foot Callus of foot Corns and callosities documented in this encounter [facility] for referral (narrative)* Diagnostic Procedure Only (Routine) - Closed Specialty Diagnoses / Procedures Referred By Contac t Referred To Contact XR IMAGING Diagnoses Foot pain, bilateral Procedures XR FOOT GENERAL 3V AP/LAT/OBL BILATERAL RADEX FOOT COMPLETE MINIMUM 3 VIEWS Aga Garcia[address] [place] [address] [place] [address] Referral ID Status Reason Start Date Expiration Date V isits Requested Visits Authorized [id number] Closed Auto-Generate d Referral 10/20/2022 11/19/2023 1 1 [facility] for referral (narrative)* Diagnostic Procedure Only (Routine) - Closed Specialty Diagnoses / Procedures Referred By Contac t Referred To Contact XR IMAGING Diagnoses Arthritis of foot Procedures XR FOOT GENERAL 3V AP/LAT/OBL LEFT RADEX FOOT COMPLETE MINIMUM 3 VIEWS Aga Garcia [address] [place] [address] [place] [address] Referral ID Status Reason Start Date Expiration Date V isits Requested Visits Authorized [id number] Closed Auto-Generate d Referral 11/16/2023 12/15/2024 1 1 [facility] for visit Narrative* Diagnostic Procedure Only (Routine) - Closed Specialty Diagnoses / Procedures Referred By Contac t Referred To Contact XR IMAGING Diagnoses Foot pain, bilateral Procedures XR FOOT GENERAL 3V AP/LAT/OBL BILATERAL RADEX FOOT COMPLETE MINIMUM 3 VIEWS TestAga harvey [address] [place] [address] [place] [address] Referral ID Status Reason Start Date Expiration Date V isits Requested Visits Authorized [id number] Closed Auto-Generate d Referral 10/20/2022 11/19/2023 1 1 [facility] for visit Narrative* Diagnostic Procedure Only (Routine) - Closed Specialty Diagnoses / Procedures Referred By Contac t Referred To Contact XR IMAGING Diagnoses Arthritis of foot Procedures XR FOOT GENERAL 3V AP/LAT/OBL LEFT RADEX FOOT COMPLETE MINIMUM 3 VIEWS TestraAga wood [address] [place] [address] [place] [address] Referral ID Status Reason Start Date Expiration Date V isits Requested Visits Authorized [id number] Closed Auto-Generate d Referral 11/16/2023 12/15/2024 1 1 [facility] Summary Purpose Family History No Family History Records Found Relationship Condition Age at Onset Recorded Date/T tracee mother Malignant neoplasm Unknown brother Cerebrovascular accident (CVA) Unknown Advance Directives No Advanced Directives Records Found Advance Directive Response Recorded Date/ Time Living Will No October 22, 2018 1:26pm Power of Client Service Supervisor No October 22 1:26pm Advance Directive Response Recorded Date/ Time Living Will No October 22, 2018 12:26pm Power of Client Service Supervisor No October 22 12:26pm Chief Complaint and [...] section and content) DATE CREATED AUTHOR 03/27/2018 [facility] DATE CREATED AUTHOR AUTHOR'S ORGANIZ ATKALYN 02/22/2019 [facility] ([place]) DATE CREATED AUTHOR AUTHOR'S ORGANIZ ATION 11/22/2023 [facility] DATE CREATED AUTHOR AUTHOR'S ORGANIZ ATION 03/05/2025 [facility] Source Comments (unrecognize d section and content) In the event this informatio n is protected by the Federal Confidentiality of Alcohol and Drug Abuse Patient Records regulations: The Federal rules restrict any use of the information to criminally investigate or prosecute any alcohol or drug abuse patient.[facility] the event this information is protected by the Federal Confidentiality of Alcohol and Drug Abuse Patient Records regulations: The Federal rules restrict any use of the information to criminally investigate or prosecute any alcohol or drug abuse patient.[facility]In the event this information is protected by the Federal Confidentiality of Alcohol and Drug Abuse Patient Records regulations: The Federal rules restrict any use of the information to criminally investigate or prosecute any alcohol or drug abuse patient.[facility] the event this information is protected by the Federal Confidentiality of Alcohol and Drug Abuse Patient Records regulations: The Federal rules restrict any use of the information to criminally investigate or prosecute any alcohol or drug abuse patient.[facility] the event this information is protected by the Federal Confidentiality of Alcohol and Drug Abuse Patient Records regulations: The Federal rules restrict any use of the information to criminally investigate or prosecute any alcohol or drug abuse patient.[facility]In the event this information is protected by the Federal Confidentiality of Alcohol and Drug Abuse Patient Records regulations: The Federal rules restrict any use of the information to criminally investigate or prosecute any alcohol or drug abuse patient.[facility] the event this information is protected by the Federal Confidentiality of Alcohol and Drug Abuse Patient Records regulations: The Federal rules restrict any use of the information to criminally investigate or prosecute any alcohol or drug abuse patient.[facility] Reason for Visit (unrecogniz ed section and [...] BE BASED ON THE PRIMARY CLINICAL RECORDS. [employer] provides no warranty or guarantee of the accuracy or completeness of information in this document.
[2025-03-06] MEDS: 0.9% Normal Saline (1000mL) 1,000 ML 100 ML IV (01:45)
[2025-03-06 01:46] LABS: BETA-HYDROXYBUTYRATE 0.2 mmol/L (0.0-0.3); Magnesium 1.8 mg/dL (1.5-2.2)
[2025-03-06] MEDS: 0.9% Saline Lock 10 ML Syringe IV (02:49)
--- OUTSIDE RECORDS SUMMARY | 2025-03-06 03:55 | XMS RPT_ITS | CCD ---
Author Organization [facility] Care Team Providers Care Engagement Specialist Name Role Phone Unavailable Primary Care Provider Unavailabl e Sarabjit, Dr. Sumit Hansen Primary Care Provider [phone] Sarabjit, Dr. Sumit Hansen Referring Provider Dr. Mikayla Dukes Attending Provider Unavailable Primary Care Provider Unavailabl e Sarabjit, Dr. Sumit Hansen Primary Care Provider [phone] Sarabjit, Dr. Sumit Hansen Referring Provider [phone] Mikayla Dukes Attending Provider AGA GARCIA Referring Unavailable TESTAGA HARVEY Attending [...] Steven Attending Unavailable Lashellyson Glen Referring Unavailable Asrabjit, Sumit Chi Attending Unavailable Sarabjit, Sumit Chi [...] Translations: [OXYCODONE-ACETAM INOPHEN] Drug Allergy 1 Itching [facility] (10 sources) omeprazole; Translations: [OMEPRAZOLE] Drug Allergy 3 Intolerance [facility] (10 sources) tapentadol; Translations: [TAPENTADOL] Drug Allergy 2 GI Upset [facility] (10 sources) traMADol; Translations: [TRAMADOL HCL] Drug Allergy 1 Itching [facility] (13 sources) Opioids - Morphine Analogues; Translations: [Opioids - Morphine Analogues] Allergy to substance 9 [facility] (8 sources) Adhesive Tape; Translations: [adhesive tape] Propensity to adverse reactions 3 [facility] (1 source) traMADol Drug Allergy 5 [facility] Repository Medications Current Medications Medication Drug Class(es) [...] Take 500 mg by mouth once daily. [place]-3 Fatty Acids-Fish Oil (12 sources) Start: 10-22-2018 [place]-3 Fatty Acids-Fish Oil Active 1 EACH PO DAILY October 22, 2018 1:15pm Start: 10-22-2018 End: 08-29-2022 [place]-3 Fatty Acids-Fish Oil Discontinued 1 EACH PO DAILY October 22, 2018 12:00am August 29, 2022 10:45am Start: 10-22-2018 End: 08-29-2022 [place]-3 Fatty Acids-Fish Oil Discontinued 1 EACH PO DAILY October 21, 2018 11:00pm August 29, 2022 9:45am Start: 10-22-2018 [place]-3 Fatty Acids-Fish Oil Active 1 EACH PO DAILY October 21, 2018 11:00pm Start: 10-22-2018 [place]-3 Fatty Acids-Fish Oil Active 1 EACH PO [...] on above: Take 1 capsule by mo [facility] three times daily. Turmeric Root Extract (7 [...] on above: take 1 capsule by mo [facility] once daily Take 1 capsule by mo [facility] once daily. escitalopram 10 mg oral tablet [...] Reference Range Facility MR/JUANCARLOS.BPon 03-04-2025 MR/JUANCARLOS.BP Normal [facility] Protein Electro.Ur-Randomon 03-04-2025 M-SPIKE,U Normal [facility] Comment on above: Result Comment: NOT OBSERVED Performed By: #### L 3600.4000, L3100.3450 ####[facility] [address] [place], [address] Protein Electroph, Son 03-02 Albumin [Mass/Vol] 3.4 g/dL Normal 2.9-4.4 [facility] Comment on above: Performed By: #### L 3600.4000, L3100.3450 ####[facility] [address] [place], [address] Albumin/Globulin [Mass ratio] 1.1 {ratio} Normal 0.7-1.7 [facility] Comment on above: Performed By: #### L 3600.4000, L3100.3450 ####[facility] [address] [place], [address] ALPHA-1 GLOBUL 0.3 g/dL Normal 0.0-0.4 [facility] Comment on above: Performed By: #### L 3600.4000, L3100.3450 ####[facility] [address] [place], [address] ALPHA-2 GLOBUL 1.2 g/dL High 0.4-1.0 [facility] Comment on above: Performed By: #### L 3600.4000, L3100.3450 ####[facility] [address] [place], [address] BETA GLOBULIN 1.0 g/dL Normal 0.7-1.3 [facility] Comment on above: Performed By: #### L 3600.4000, L3100.3450 ####[facility] [address] [place], [address] GAMMA GLOBULIN 0.6 g/dL Normal 0.4-1.8 [facility] Comment on above: Performed By: #### L 3600.4000, L3100.3450 ####[facility] [address] [place], [address] Globulin (S) [Mass/Vol] 3.1 g/dL Normal 2.2-3.9 [facility] Comment on above: Performed By: #### L 3600.4000, L3100.3450 ####[facility] [address] [place], [address] INTERPRETATION Comment Normal . [facility] Comment on above: Result Comment: Prot ein electrophoresis scan will follow via computer,mail, or plain goods hemmer delivery. Performed By: #### L 3600.4000, L3100.3450 ####[facility] [address] [place], [address] M-SPIKE Comment: Normal Not Observed [facility] Comment on above: Result Comment: M-sp gali #1 = 0.1 g/dlM-spike #2 = 0.2 g/dl Performed By: #### L 3600.4000, L3100.3450 ####[facility] [address] [place], [address] NOTE: Comment Normal . [facility] Comment on above: Result Comment: The SPE pattern demonstrates two peaks in the beta-gammaregion which may represent monoclonal protein. A biclonalgammopathy may be confirmed by immunofixation, as well asevaluation of the urine for the presence of Bence-Jonesprotein. Performed By: #### L 3600.4000, L3100.3450 ####[facility] [address] [place], [address] Protein [Mass/Vol] 6.5 g/dL Normal 6.0-8.5 [facility] Comment on above: Performed By: #### L 3600.4000, L3100.3450 ####[facility] [address] [place], [address] Brain/Head without Contrasto n 02-26-2025 Brain/Head without Contrast Normal [facility] MR/BMS.BPon 02-20-2025 MR/BMS.BP Normal [facility] Culture, Blood (WB)on 2024 CUB SET Blood cultures x2, from two different sites No growth in 5 days. Normal [facility] Comment on above: Performed By: #### M 200.1000 ####[facility] [address] [place], [address] Basic Metabolic Profile (BMP )on 01-11-2025 BUN Normal 4-19 [facility] Comment on above: Result Comment: Canc elled via OM: Order cancelled - Patient discharged Performed By: #### L 100.0100, L500.2500 ####[facility] [address] [place], [address] BUN/CRE Normal 10-20 [facility] Comment on above: Result Comment: Canc elled via OM: Order cancelled - Patient discharged Performed By: #### L 100.0100, L500.2500 ####[facility] [address] [place], [address] Calcium Normal 7.6-11.0 [facility] Comment on above: Result Comment: Canc elled via OM: Order cancelled - Patient discharged Performed By: #### L 100.0100, L500.2500 ####[facility] [address] [place], [address] CL Normal 98-108 [facility] Comment on above: Result Comment: Canc elled via OM: Order cancelled - Patient discharged Performed By: #### L 100.0100, L500.2500 ####[facility] [address] [place], [address] CO2 Normal 21.0-32.0 [facility] Comment on above: Result Comment: Canc elled via OM: Order cancelled - Patient discharged Performed By: #### L 100.0100, L500.2500 ####[facility] [address] [place], [address] CREAT,SERUM Normal 0.70-1.20 [facility] Comment on above: Result Comment: Canc elled via OM: Order cancelled - Patient discharged Performed By: #### L 100.0100, L500.2500 ####[facility] [address] [place], [address] eGFR Normal >60 [facility] Comment on above: Result Comment: Canc elled via OM: Order cancelled - Patient discharged Performed By: #### L 100.0100, L500.2500 ####[facility] [address] [place], [address] GAP Normal 5-15 [facility] Comment on above: Result Comment: Canc elled via OM: Order cancelled - Patient discharged Performed By: #### L 100.0100, L500.2500 ####[facility] [address] [place], [address] GLU Normal 70-99 [facility] Comment on above: Result Comment: Canc elled via OM: Order cancelled - Patient discharged Performed By: #### L 100.0100, L500.2500 ####[facility] [address] [place], [address] Potassium Normal 3.3-5.1 [facility] Comment on above: Result Comment: Canc elled via OM: Order cancelled - Patient discharged Performed By: #### L 100.0100, L500.2500 ####[facility] [address] [place], [address] Basic Metabolic Profile (BMP) Normal 133-145 [facility] Comment on above: Result Comment: Canc elled via OM: Order cancelled - Patient discharged Performed By: #### L 100.0100, L500.2500 ####[facility] [address] [place], [address] CBC W/Diff, Automatedon 06-0 -2024 Absolute Neut Normal 2.0-7.7 [facility] Comment on above: Result Comment: Canc elled via OM: Order cancelled - Patient discharged Performed By: #### L 100.0100, L500.2500 ####[facility] [address] [place], [address] HCT Normal 37-47 [facility] Comment on above: Result Comment: Canc elled via OM: Order cancelled - Patient discharged Performed By: #### L 100.0100, L500.2500 ####[facility] [address] [place], [address] HGB Normal 12.0-15.0 [facility] Comment on above: Result Comment: Canc elled via OM: Order cancelled - Patient discharged Performed By: #### L 100.0100, L500.2500 ####[facility] [address] [place], [address] MCH Normal 27.0-32.0 [facility] Comment on above: Result Comment: Canc elled via OM: Order cancelled - Patient discharged Performed By: #### L 100.0100, L500.2500 ####[facility] [address] [place], [address] MCHC Normal 32-36 [facility] Comment on above: Result Comment: Canc elled via OM: Order cancelled - Patient discharged Performed By: #### L 100.0100, L500.2500 ####[facility] [address] [place], [address] MCV Normal 81-99 [facility] Comment on above: Result Comment: Canc elled via OM: Order cancelled - Patient discharged Performed By: #### L 100.0100, L500.2500 ####[facility] [address] [place], [address] NEUT% Normal 47-70 [facility] Comment on above: Result Comment: Canc elled via OM: Order cancelled - Patient discharged Performed By: #### L 100.0100, L500.2500 ####[facility] [address] [place], [address] PLT Normal 150-450 [facility] Comment on above: Result Comment: Canc elled via OM: Order cancelled - Patient discharged Performed By: #### L 100.0100, L500.2500 ####[facility] [address] [place], [address] RBC Normal 4.2-5.4 [facility] Comment on above: Result Comment: Canc elled via OM: Order cancelled - Patient discharged Performed By: #### L 100.0100, L500.2500 ####[facility] [address] [place], [address] RDW CV Normal 11.6-14.6 [facility] Comment on above: Result Comment: Canc elled via OM: Order cancelled - Patient discharged Performed By: #### L 100.0100, L500.2500 ####[facility] [address] [place], [address] RDW SD Normal 35.1-43.9 [facility] Comment on above: Result Comment: Canc elled via OM: Order cancelled - Patient discharged Performed By: #### L 100.0100, L500.2500 ####[facility] [address] [place], [address] WBC Normal 4.4-11.0 [facility] Comment on above: Result Comment: Canc elled via OM: Order cancelled - Patient discharged Performed By: #### L 100.0100, L500.2500 ####[facility] [address] [place], [address] Basic Metabolic Profile (BMP )on 01-10-2025 BUN/CRE 14.9 RATIO Normal 10-20 [facility] Comment on above: Performed By: #### L 100.0100, L500.2500 ####[facility] [address] [place], [address] Calcium [Mass/Vol] 9.3 mg/dL Normal 7.6-11.0 [facility] Comment on above: Performed By: #### L 100.0100, L500.2500 ####[facility] [address] [place], [address] Chloride [Moles/Vol] 104 mmol/L Normal 98-108 [facility] Comment on above: Performed By: #### L 100.0100, L500.2500 ####[facility] [address] [place], [address] CO2 [Moles/Vol] 25.6 mmol/L Normal 21.0-32.0 [facility] Comment on above: Performed By: #### L 100.0100, L500.2500 ####[facility] [address] [place], [address] Creatinine [Mass/Vol] 0.88 mg/dL Normal 0.70-1.20 [facility] Comment on above: Performed By: #### L 100.0100, L500.2500 ####[facility] [address] [place], [address] ECRCL 60.74 ml/min Normal 50-250 [facility] Comment on above: Performed By: #### L 100.0100, L500.2500 ####[facility] [address] [place], [address] GAP 12 Normal 5-15 [facility] Comment on above: Performed By: #### L 100.0100, L500.2500 ####[facility] [address] [place], [address] GFR/1.73 sq M.predicted among non-blacks MDRD (S/P/Bld) [Vol rate/Area] 68 mL/min/{1.73_m2} Normal >60 [facility] Comment on above: Result Comment: mL/m in/1.73m2 CKD-EPI Creatinine Equation (2020) Performed By: #### L 100.0100, L500.2500 ####[facility] [address] [place], [address] Glucose [Mass/Vol] 150 mg/dL High 70-99 [facility] Comment on above: Performed By: #### L 100.0100, L500.2500 ####[facility] [address] [place], [address] Potassium [Moles/Vol] 4.1 mmol/L Normal 3.3-5.1 [facility] Comment on above: Performed By: #### L 100.0100, L500.2500 ####[facility] [address] [place], [address] Sodium [Moles/Vol] 142 mmol/L Normal 133-145 [facility] Comment on above: Performed By: #### L 100.0100, L500.2500 ####[facility] [address] [place], [address] Urea nitrogen [Mass/Vol] 13 mg/dL Normal 4-19 [facility] Comment on above: Performed By: #### L 100.0100, L500.2500 ####[facility] [address] [place], [address] Bedside Glucoseon 05-31-2025 FINGERSTICK GLU 170 mg/dL High 74-106 [facility] Comment on above: Result Comment: GILDA CLINE OF PATIENT CARE PER NURSING PROTOCOL Performed By: #### L 501.080 ####[facility] [address] [place], [address] CBC W/Diff, Automatedon 05-3 -2024 Absolute Lymph 2.24 X10 3/uL Normal 0.83-4.51 [facility] Comment on above: Performed By: #### L 100.0100, L500.2500 ####[facility] [address] [place], [address] Absolute Neut 4.1 X10 3/uL Normal 2.0-7.7 [facility] Comment on above: Performed By: #### L 100.0100, L500.2500 ####[facility] [address] [place], [address] Basophils/100 WBC (Bld) 0.5 % Normal 0-1 [facility] Comment on above: Performed By: #### L 100.0100, L500.2500 ####[facility] [address] [place], [address] Eosinophils/100 WBC (Bld) 4.5 % Normal 0-5 [facility] Comment on above: Performed By: #### L 100.0100, L500.2500 ####[facility] [address] [place], [address] Erythrocyte distribution width (RBC) [Ratio] 15.1 % High 11.6-14.6 [facility] Comment on above: Performed By: #### L 100.0100, L500.2500 ####[facility] [address] [place], [address] Hematocrit (Bld) [Volume fraction] 36.7 % Low 37-47 [facility] Comment on above: Performed By: #### L 100.0100, L500.2500 ####[facility] [address] [place], [address] Hemoglobin (Bld) [Mass/Vol] 11.9 g/dL Low 12.0-15.0 [facility] Comment on above: Performed By: #### L 100.0100, L500.2500 ####[facility] [address] [place], [address] IG% 0.400 Normal 0.0-0.9 [facility] Comment on above: Result Comment: IG% - Immature Granulocytes (promyelocytes, myelocytes andmetamyelocytes) > 1% indicates that a LEFT SHIFT is Present. Performed By: #### L 100.0100, L500.2500 ####[facility] [address] [place], [address] Lymphocytes/100 WBC (Bld) 30.8 % Normal 19-41 [facility] Comment on above: Performed By: #### L 100.0100, L500.2500 ####[facility] [address] [place], [address] MCH (RBC) [Entitic mass] 27.7 pg Normal 27.0-32.0 [facility] Comment on above: Performed By: #### L 100.0100, L500.2500 ####[facility] [address] [place], [address] MCHC (RBC) [Mass/Vol] 32.4 g/dL Normal 32-36 [facility] Comment on above: Performed By: #### L 100.0100, L500.2500 ####[facility] [address] [place], [address] MCV (RBC) [Entitic vol] 85.5 fL Normal 81-99 [facility] Comment on above: Performed By: #### L 100.0100, L500.2500 ####[facility] [address] [place], [address] Monocytes/100 WBC (Bld) 7.3 % Normal 0-10 [facility] Comment on above: Performed By: #### L 100.0100, L500.2500 ####[facility] [address] [place], [address] Neutrophils/100 WBC (Bld) 56.5 % Normal 47-70 [facility] Comment on above: Performed By: #### L 100.0100, L500.2500 ####[facility] [address] [place], [address] Nucleated RBC (Bld) [#/Vol] 0 10*3/uL Normal 0-5 [facility] Comment on above: Performed By: #### L 100.0100, L500.2500 ####[facility] [address] [place], [address] Platelet mean volume (Bld) [Entitic vol] 10.0 fL Normal 6.2-12.0 [facility] Comment on above: Performed By: #### L 100.0100, L500.2500 ####[facility] [address] [place], [address] Platelets (Bld) [#/Vol] 291 10*3/uL Normal 150-450 [facility] Comment on above: Performed By: #### L 100.0100, L500.2500 ####[facility] [address] [place], [address] RBC (Bld) [#/Vol] 4.29 10*6/uL Normal 4.2-5.4 [facility] Comment on above: Performed By: #### L 100.0100, L500.2500 ####[facility] [address] [place], [address] RDW SD 47.4 fl High 35.1-43.9 [facility] Comment on above: Performed By: #### L 100.0100, L500.2500 ####[facility] [address] [place], [address] WBC (Bld) [#/Vol] 7.3 10*3/uL Normal 4.4-11.0 [facility] Comment on above: Performed By: #### L 100.0100, L500.2500 ####[facility] [address] [place], [address] Basic Metabolic Profile (BMP )on 01-09-2025 BUN/CRE 16.7 RATIO Normal 10-20 [facility] Comment on above: Performed By: #### L 500.2500, L100.0100, L501.5200, L501.2300 ####[facility] [address] [place], [address] Calcium [Mass/Vol] 9.0 mg/dL Normal 7.6-11.0 [facility] Comment on above: Performed By: #### L 500.2500, L100.0100, L501.5200, L501.2300 ####[facility] [address] [place], [address] Chloride [Moles/Vol] 103 mmol/L Normal 98-108 [facility] Comment on above: Performed By: #### L 500.2500, L100.0100, L501.5200, L501.2300 ####[facility] [address] [place], [address] CO2 [Moles/Vol] 24.3 mmol/L Normal 21.0-32.0 [facility] Comment on above: Performed By: #### L 500.2500, L100.0100, L501.5200, L501.2300 ####[facility] [address] [place], [address] Creatinine [Mass/Vol] 0.88 mg/dL Normal 0.70-1.20 [facility] Comment on above: Performed By: #### L 500.2500, L100.0100, L501.5200, L501.2300 ####[facility] [address] [place], [address] ECRCL 60.74 ml/min Normal 50-250 [facility] Comment on above: Performed By: #### L 500.2500, L100.0100, L501.5200, L501.2300 ####[facility] [address] [place], [address] GAP 10 Normal 5-15 [facility] Comment on above: Performed By: #### L 500.2500, L100.0100, L501.5200, L501.2300 ####[facility] [address] [place], [address] GFR/1.73 sq M.predicted among non-blacks MDRD (S/P/Bld) [Vol rate/Area] 67 mL/min/{1.73_m2} Normal >60 [facility] Comment on above: Result Comment: mL/m in/1.73m2 CKD-EPI Creatinine Equation (2020) Performed By: #### L 500.2500, L100.0100, L501.5200, L501.2300 ####[facility] [address] [place], [address] Glucose [Mass/Vol] 151 mg/dL High 70-99 [facility] Comment on above: Performed By: #### L 500.2500, L100.0100, L501.5200, L501.2300 ####[facility] [address] [place], [address] Potassium [Moles/Vol] 3.8 mmol/L Normal 3.3-5.1 [facility] Comment on above: Performed By: #### L 500.2500, L100.0100, L501.5200, L501.2300 ####[facility] [address] [place], [address] Sodium [Moles/Vol] 137 mmol/L Normal 133-145 [facility] Comment on above: Performed By: #### L 500.2500, L100.0100, L501.5200, L501.2300 ####[facility] [address] [place], [address] Urea nitrogen [Mass/Vol] 15 mg/dL Normal 4-19 [facility] Comment on above: Performed By: #### L 500.2500, L100.0100, L501.5200, L501.2300 ####[facility] [address] [place], [address] Bedside Glucoseon 01-09-2025 FINGERSTICK GLU 185 mg/dL High -106 [facility] Comment on above: Result Comment: GILDA GEMENT OF PATIENT CARE PER NURSING PROTOCOL Performed By: #### L 501.080 ####[facility] [address] [place], [address] FINGERSTICK GLU 174 mg/dL High -106 [facility] Comment on above: Result Comment: GILDA GEMENT OF PATIENT CARE PER NURSING PROTOCOL Performed By: #### L 501.080 ####[facility] [address] [place], [address] FINGERSTICK GLU 249 mg/dL High 74-106 [facility] Comment on above: Result Comment: GILDA GEMENT OF PATIENT CARE PER NURSING PROTOCOL Performed By: #### L 501.080 ####[facility] [address] [place], [address] FINGERSTICK GLU 179 mg/dL High -106 [facility] Comment on above: Result Comment: GILDA GEMENT OF PATIENT CARE PER NURSING PROTOCOL Performed By: #### L 501.080 ####[facility] [address] [place], [address] FINGERSTICK GLU 224 mg/dL High 74-106 [facility] Comment on above: Result Comment: GILDA CLINE OF PATIENT CARE PER NURSING PROTOCOL Performed By: #### L 501.080 ####[facility] [address] [place], [address] CBC W/Diff, Automatedon 05-3 0-2024 Absolute Lymph 1.78 X10 3/uL Normal 0.83-4.51 [facility] Comment on above: Performed By: #### L 500.2500, L100.0100, L501.5200, L501.2300 ####[facility] [address] [place], [address] Absolute Neut 4.9 X10 3/uL Normal 2.0-7.7 [facility] Comment on above: Performed By: #### L 500.2500, L100.0100, L501.5200, L501.2300 ####[facility] [address] [place], [address] Basophils/100 WBC (Bld) 0.3 % Normal 0-1 [facility] Comment on above: Performed By: #### L 500.2500, L100.0100, L501.5200, L501.2300 ####[facility] [address] [place], [address] Eosinophils/100 WBC (Bld) 3.2 % Normal 0-5 [facility] Comment on above: Performed By: #### L 500.2500, L100.0100, L501.5200, L501.2300 ####[facility] [address] [place], [address] Erythrocyte distribution width (RBC) [Ratio] 15.1 % High 11.6-14.6 [facility] Comment on above: Performed By: #### L 500.2500, L100.0100, L501.5200, L501.2300 ####[facility] [address] [place], [address] Hematocrit (Bld) [Volume fraction] 34.0 % Low 37-47 [facility] Comment on above: Performed By: #### L 500.2500, L100.0100, L501.5200, L501.2300 ####[facility] [address] [place], [address] Hemoglobin (Bld) [Mass/Vol] 11.4 g/dL Low 12.0-15.0 [facility] Comment on above: Performed By: #### L 500.2500, L100.0100, L501.5200, L501.2300 ####[facility] [address] [place], [address] IG% 0.600 Normal 0.0-0.9 [facility] Comment on above: Result Comment: IG% - Immature Granulocytes (promyelocytes, myelocytes andmetamyelocytes) > 1% indicates that a LEFT SHIFT is Present. Performed By: #### L 500.2500, L100.0100, L501.5200, L501.2300 ####[facility] [address] [place], [address] Lymphocytes/100 WBC (Bld) 22.8 % Normal 19-41 [facility] Comment on above: Performed By: #### L 500.2500, L100.0100, L501.5200, L501.2300 ####[facility] [address] [place], [address] MCH (RBC) [Entitic mass] 27.8 pg Normal 27.0-32.0 [facility] Comment on above: Performed By: #### L 500.2500, L100.0100, L501.5200, L501.2300 ####[facility] [address] [place], [address] MCHC (RBC) [Mass/Vol] 33.5 g/dL Normal 32-36 [facility] Comment on above: Performed By: #### L 500.2500, L100.0100, L501.5200, L501.2300 ####[facility] [address] [place], [address] MCV (RBC) [Entitic vol] 82.9 fL Normal 81-99 [facility] Comment on above: Performed By: #### L 500.2500, L100.0100, L501.5200, L501.2300 ####[facility] [address] [place], [address] Monocytes/100 WBC (Bld) 9.6 % Normal 0-10 [facility] Comment on above: Performed By: #### L 500.2500, L100.0100, L501.5200, L501.2300 ####[facility] [address] [place], [address] Neutrophils/100 WBC (Bld) 63.5 % Normal 47-70 [facility] Comment on above: Performed By: #### L 500.2500, L100.0100, L501.5200, L501.2300 ####[facility] [address] [place], [address] Nucleated RBC (Bld) [#/Vol] 0 10*3/uL Normal 0-5 [facility] Comment on above: Performed By: #### L 500.2500, L100.0100, L501.5200, L501.2300 ####[facility] [address] [place], [address] Platelet mean volume (Bld) [Entitic vol] 9.7 fL Normal 6.2-12.0 [facility] Comment on above: Performed By: #### L 500.2500, L100.0100, L501.5200, L501.2300 ####[facility] [address] [place], [address] Platelets (Bld) [#/Vol] 258 10*3/uL Normal 150-450 [facility] Comment on above: Performed By: #### L 500.2500, L100.0100, L501.5200, L501.2300 ####[facility] [address] [place], [address] RBC (Bld) [#/Vol] 4.10 10*6/uL Low 4.2-5.4 [facility] Comment on above: Performed By: #### L 500.2500, L100.0100, L501.5200, L501.2300 ####[facility] [address] [place], [address] RDW SD 46.0 fl High 35.1-43.9 [facility] Comment on above: Performed By: #### L 500.2500, L100.0100, L501.5200, L501.2300 ####[facility] [address] [place], [address] WBC (Bld) [#/Vol] 7.8 10*3/uL Normal 4.4-11.0 [facility] Comment on above: Performed By: #### L 500.2500, L100.0100, L501.5200, L501.2300 ####[facility] [address] [place], [address] Magnesiumon 01-09-2025 Magnesium [Mass/Vol] 1.8 mg/dL Normal 1.5-2.2 [facility] Comment on above: Performed By: #### L 500.2500, L100.0100, L501.5200, L501.2300 ####[facility] [address] [place], [address] Phosphoruson 01-09-2025 Phosphate [Mass/Vol] 4.6 mg/dL High 2.7-4.5 [facility] Comment on above: Performed By: #### L 500.2500, L100.0100, L501.5200, L501.2300 ####[facility] [address] [place], [address] Urine Cultureon 01-09-2025 URC Normal [facility] Comment on above: Performed By: #### M 100.2200 ####[facility] [address] [place], [address] Basic Metabolic Profile (BMP )on 01-08-2025 BUN/CRE 16.5 RATIO Normal 10-20 [facility] Comment on above: Order Comment: PER Kinsey DE JESUS RN OKAY TO DO MORNING LABS EARLY Performed By: #### L 100.0100, L500.2500 ####[facility] [address] [place], [address] Calcium [Mass/Vol] 9.0 mg/dL Normal 7.6-11.0 [facility] Comment on above: Order Comment: YVON DE JESUS RN OKAY TO DO MORNING LABS EARLY Performed By: #### L 100.0100, L500.2500 ####[facility] [address] [place], [address] Chloride [Moles/Vol] 101 mmol/L Normal 98-108 [facility] Comment on above: Order Comment: YVON DE JESUS RN OKAY TO DO MORNING LABS EARLY Performed By: #### L 100.0100, L500.2500 ####[facility] [address] [place], [address] CO2 [Moles/Vol] 20.9 mmol/L Low 21.0-32.0 [facility] Comment on above: Order Comment: YVON DE JESUS RN OKAY TO DO MORNING LABS EARLY Performed By: #### L 100.0100, L500.2500 ####[facility] [address] [place], [address] Creatinine [Mass/Vol] 1.01 mg/dL Normal 0.70-1.20 [facility] Comment on above: Order Comment: PER Kinsey DE JESUS RN OKAY TO DO MORNING LABS EARLY Performed By: #### L 100.0100, L500.2500 ####[facility] [address] [place], [address] ECRCL 52.93 ml/min Normal 50-250 [facility] Comment on above: Order Comment: PER Kinsey DE JESUS RN OKAY TO DO MORNING LABS EARLY Performed By: #### L 100.0100, L500.2500 ####[facility] [address] [place], [address] GAP 13 Normal 5-15 [facility] Comment on above: Order Comment: PER Kinsey DE JESUS RN OKAY TO DO MORNING LABS EARLY Performed By: #### L 100.0100, L500.2500 ####[facility] [address] [place], [address] GFR/1.73 sq M.predicted among non-blacks MDRD (S/P/Bld) [Vol rate/Area] 57 mL/min/{1.73_m2} Low >60 [facility] Comment on above: Order Comment: PER Kinsey DE JESUS RN OKAY TO DO MORNING LABS EARLY Result Comment: mL/m in/1.73m2 CKD-EPI Creatinine Equation (2020) Performed By: #### L 100.0100, L500.2500 ####[facility] [address] [place], [address] Glucose [Mass/Vol] 255 mg/dL High 70-99 [facility] Comment on above: Order Comment: PER Kinsey DE JESUS RN OKAY TO DO MORNING LABS EARLY Performed By: #### L 100.0100, L500.2500 ####[facility] [address] [place], [address] Potassium [Moles/Vol] 4.3 mmol/L Normal 3.3-5.1 [facility] Comment on above: Order Comment: PER Kinsey DE JESUS RN OKAY TO DO MORNING LABS EARLY Performed By: #### L 100.0100, L500.2500 ####[facility] [address] [place], [address] Sodium [Moles/Vol] 135 mmol/L Normal 133-145 [facility] Comment on above: Order Comment: PER Kinsey DE JESUS RN OKAY TO DO MORNING LABS EARLY Performed By: #### L 100.0100, L500.2500 ####[facility] [address] [place], [address] Urea nitrogen [Mass/Vol] 17 mg/dL Normal 4-19 [facility] Comment on above: Order Comment: PER Kinsey DE JESUS RN OKAY TO DO MORNING LABS EARLY Performed By: #### L 100.0100, L500.2500 ####[facility] [address] [place], [address] Bedside Glucoseon 01-08-2025 FINGERSTICK GLU 147 mg/dL High 74-106 [facility] Comment on above: Result Comment: GILDA GEMENT OF PATIENT CARE PER NURSING PROTOCOL Performed By: #### L 501.080 ####[facility] [address] [place], [address] FINGERSTICK GLU 246 mg/dL High 74-106 [facility] Comment on above: Result Comment: GILDA GEMENT OF PATIENT CARE PER NURSING PROTOCOL Performed By: #### L 501.080 ####[facility] [address] [place], [address] FINGERSTICK GLU 200 mg/dL High -106 [facility] Comment on above: Result Comment: GILDA GEMENT OF PATIENT CARE PER NURSING PROTOCOL Performed By: #### L 501.080 ####[facility] [address] [place], [address] CBC W/Diff, Automatedon 05- Absolute Lymph 1.84 X10 3/uL Normal 0.83-4.51 [facility] Comment on above: Order Comment: PER Kinsey DE JESUS RN OKAY TO DO MORNING LABS EARLY Performed By: #### L 100.0100, L500.2500 ####[facility] [address] [place], [address] Absolute Neut 6.9 X10 3/uL Normal 2.0-7.7 [facility] Comment on above: Order Comment: PER Kinsey DE JESUS RN OKAY TO DO MORNING LABS EARLY Performed By: #### L 100.0100, L500.2500 ####[facility] [address] [place], [address] Basophils/100 WBC (Bld) 0.2 % Normal 0-1 [facility] Comment on above: Order Comment: PER Kinsey DE JESUS RN OKAY TO DO MORNING LABS EARLY Performed By: #### L 100.0100, L500.2500 ####[facility] [address] [place], [address] Eosinophils/100 WBC (Bld) 0.8 % Normal 0-5 [facility] Comment on above: Order Comment: PER Kinsey DE JESUS RN OKAY TO DO MORNING LABS EARLY Performed By: #### L 100.0100, L500.2500 ####[facility] [address] [place], [address] Erythrocyte distribution width (RBC) [Ratio] 15.0 % High 11.6-14.6 [facility] Comment on above: Order Comment: PER Kinsey DE JESUS RN OKAY TO DO MORNING LABS EARLY Performed By: #### L 100.0100, L500.2500 ####[facility] [address] [place], [address] Hematocrit (Bld) [Volume fraction] 36.4 % Low 37-47 [facility] Comment on above: Order Comment: PER Kinsey DE JESUS RN OKAY TO DO MORNING LABS EARLY Performed By: #### L 100.0100, L500.2500 ####[facility] [address] [place], [address] Hemoglobin (Bld) [Mass/Vol] 12.1 g/dL Normal 12.0-15.0 [facility] Comment on above: Order Comment: PER Kinsey DE JESUS RN OKAY TO DO MORNING LABS EARLY Performed By: #### L 100.0100, L500.2500 ####[facility] [address] [place], [address] IG% 0.600 Normal 0.0-0.9 [facility] Comment on above: Order Comment: PER Kinsey DE JESUS RN OKAY TO DO MORNING LABS EARLY Result Comment: IG% - Immature Granulocytes (promyelocytes, myelocytes andmetamyelocytes) > 1% indicates that a LEFT SHIFT is Present. Performed By: #### L 100.0100, L500.2500 ####[facility] [address] [place], [address] Lymphocytes/100 WBC (Bld) 19.0 % Normal 19-41 [facility] Comment on above: Order Comment: PER Kinsey DE JESUS RN OKAY TO DO MORNING LABS EARLY Performed By: #### L 100.0100, L500.2500 ####[facility] [address] [place], [address] MCH (RBC) [Entitic mass] 27.8 pg Normal 27.0-32.0 [facility] Comment on above: Order Comment: PER Kinsey DE JESUS RN OKAY TO DO MORNING LABS EARLY Performed By: #### L 100.0100, L500.2500 ####[facility] [address] [place], [address] MCHC (RBC) [Mass/Vol] 33.2 g/dL Normal 32-36 [facility] Comment on above: Order Comment: PER Kinsey DE JESUS RN OKAY TO DO MORNING LABS EARLY Performed By: #### L 100.0100, L500.2500 ####[facility] [address] [place], [address] MCV (RBC) [Entitic vol] 83.7 fL Normal 81-99 [facility] Comment on above: Order Comment: PER Kinsey DE JESUS RN OKAY TO DO MORNING LABS EARLY Performed By: #### L 100.0100, L500.2500 ####[facility] [address] [place], [address] Monocytes/100 WBC (Bld) 8.4 % Normal 0-10 [facility] Comment on above: Order Comment: PER Kinsey DE JESUS RN OKAY TO DO MORNING LABS EARLY Performed By: #### L 100.0100, L500.2500 ####[facility] [address] [place], [address] Neutrophils/100 WBC (Bld) 71.0 % High 47-70 [facility] Comment on above: Order Comment: PER Kinsey DE JESUS RN OKAY TO DO MORNING LABS EARLY Performed By: #### L 100.0100, L500.2500 ####[facility] [address] [place], [address] Nucleated RBC (Bld) [#/Vol] 0 10*3/uL Normal 0-5 [facility] Comment on above: Order Comment: PER Kinsey DE JESUS RN OKAY TO DO MORNING LABS EARLY Performed By: #### L 100.0100, L500.2500 ####[facility] [address] [place], [address] Platelet mean volume (Bld) [Entitic vol] 10.1 fL Normal 6.2-12.0 [facility] Comment on above: Order Comment: PER Kinsey DE JESUS RN OKAY TO DO MORNING LABS EARLY Performed By: #### L 100.0100, L500.2500 ####[facility] [address] [place], [address] Platelets (Bld) [#/Vol] 256 10*3/uL Normal 150-450 [facility] Comment on above: Order Comment: PER Kinsey DE JESUS RN OKAY TO DO MORNING LABS EARLY Performed By: #### L 100.0100, L500.2500 ####[facility] [address] [place], [address] RBC (Bld) [#/Vol] 4.35 10*6/uL Normal 4.2-5.4 [facility] Comment on above: Order Comment: PER Kinsey DE JESUS RN OKAY TO DO MORNING LABS EARLY Performed By: #### L 100.0100, L500.2500 ####[facility] [address] [place], [address] RDW SD 45.6 fl High 35.1-43.9 [facility] Comment on above: Order Comment: PER Kinsey DE JESUS RN OKAY TO DO MORNING LABS EARLY Performed By: #### L 100.0100, L500.2500 ####[facility] [address] [place], [address] WBC (Bld) [#/Vol] 9.7 10*3/uL Normal 4.4-11.0 [facility] Comment on above: Order Comment: YVON DE JESUS RN OKAY TO DO MORNING LABS EARLY Performed By: #### L 100.0100, L500.2500 ####[facility] [address] [place], [address] Lactic Acidon 01-08-2025 Lactate [Moles/Vol] 1.7 mmol/L Normal 0.0-2.0 [facility] Comment on above: Performed By: #### L 503.6005 ####[facility] [address] [place], [address] 12 Lead EKGon 01-07-2025 12 Lead EKG Normal [facility] Alcohol, Blood (Medical)-Ser umon 01-07-2025 SERUM ETOH < 10.1 Normal <=10.0 [facility] Comment on above: Result Comment: This test is for medical purposes only. The legaldefinition of intoxication varies according to local law. Performed By: #### L 501.2450, L500.3400, L500.2500, L505.5000, L300.4310, L300.3900, L501.9100, L100.0100 ####[facility] [address] [place], [address] Basic Metabolic Profile (BMP )on 01-07-2025 BUN/CRE 13.4 RATIO Normal 10-20 [facility] Comment on above: Performed By: #### L 501.2450, L500.3400, L500.2500, L505.5000, L300.4310, L300.3900, L501.9100, L100.0100 ####[facility] [address] [place], [address] Calcium [Mass/Vol] 9.5 mg/dL Normal 7.6-11.0 [facility] Comment on above: Performed By: #### L 501.2450, L500.3400, L500.2500, L505.5000, L300.4310, L300.3900, L501.9100, L100.0100 ####[facility] [address] [place], [address] Chloride [Moles/Vol] 97 mmol/L Low 98-108 [facility] Comment on above: Performed By: #### L 501.2450, L500.3400, L500.2500, L505.5000, L300.4310, L300.3900, L501.9100, L100.0100 ####[facility] [address] [place], [address] CO2 [Moles/Vol] 20.5 mmol/L Low 21.0-32.0 [facility] Comment on above: Performed By: #### L 501.2450, L500.3400, L500.2500, L505.5000, L300.4310, L300.3900, L501.9100, L100.0100 ####[facility] [address] [place], [place], [address] Creatinine [Mass/Vol] 1.12 mg/dL Normal 0.70-1.20 [facility] Comment on above: Performed By: #### L 501.2450, L500.3400, L500.2500, L505.5000, L300.4310, L300.3900, L501.9100, L100.0100 ####[facility] [address] [place], [place], [address] ECRCL 47.33 ml/min Low 50-250 [facility] Comment on above: Performed By: #### L 501.2450, L500.3400, L500.2500, L505.5000, L300.4310, L300.3900, L501.9100, L100.0100 ####[facility] [address] [place], [place], [address] GAP 19 High 5-15 [facility] Comment on above: Performed By: #### L 501.2450, L500.3400, L500.2500, L505.5000, L300.4310, L300.3900, L501.9100, L100.0100 ####[facility] [address] [place], [place], [address] GFR/1.73 sq M.predicted among non-blacks MDRD (S/P/Bld) [Vol rate/Area] 50 mL/min/{1.73_m2} Low >60 [facility] Comment on above: Result Comment: mL/m in/1.73m2 CKD-EPI Creatinine Equation (2020) Performed By: #### L 501.2450, L500.3400, L500.2500, L505.5000, L300.4310, L300.3900, L501.9100, L100.0100 ####[facility] [address] [place], [address] Glucose [Mass/Vol] 183 mg/dL High 70-99 [facility] Comment on above: Performed By: #### L 501.2450, L500.3400, L500.2500, L505.5000, L300.4310, L300.3900, L501.9100, L100.0100 ####[facility] [address] [place], [address] Potassium [Moles/Vol] 4.1 mmol/L Normal 3.3-5.1 [facility] Comment on above: Performed By: #### L 501.2450, L500.3400, L500.2500, L505.5000, L300.4310, L300.3900, L501.9100, L100.0100 ####[facility] [address] [place], [address] Sodium [Moles/Vol] 137 mmol/L Normal 133-145 [facility] Comment on above: Performed By: #### L 501.2450, L500.3400, L500.2500, L505.5000, L300.4310, L300.3900, L501.9100, L100.0100 ####[facility] [address] [place], [address] Urea nitrogen [Mass/Vol] 15 mg/dL Normal 4-19 [facility] Comment on above: Performed By: #### L 501.2450, L500.3400, L500.2500, L505.5000, L300.4310, L300.3900, L501.9100, L100.0100 ####[facility] [address] [place], [address] Brain/Head without Contrasto n - Brain/Head without Contrast Normal [facility] CBC W/Diff, Automatedon 05-2 Absolute Lymph 2.40 X10 3/uL Normal 0.83-4.51 [facility] Comment on above: Performed By: #### L 501.2450, L500.3400, L500.2500, L505.5000, L300.4310, L300.3900, L501.9100, L100.0100 ####[facility] [address] [place], [address] Absolute Neut 8.7 X10 3/uL High 2.0-7.7 [facility] Comment on above: Performed By: #### L 501.2450, L500.3400, L500.2500, L505.5000, L300.4310, L300.3900, L501.9100, L100.0100 ####[facility] [address] [place], [address] Basophils/100 WBC (Bld) 0.4 % Normal 0-1 [facility] Comment on above: Performed By: #### L 501.2450, L500.3400, L500.2500, L505.5000, L300.4310, L300.3900, L501.9100, L100.0100 ####[facility] [address] [place], [address] Eosinophils/100 WBC (Bld) 1.2 % Normal 0-5 [facility] Comment on above: Performed By: #### L 501.2450, L500.3400, L500.2500, L505.5000, L300.4310, L300.3900, L501.9100, L100.0100 ####[facility] [address] [place], [address] Erythrocyte distribution width (RBC) [Ratio] 15.2 % High 11.6-14.6 [facility] Comment on above: Performed By: #### L 501.2450, L500.3400, L500.2500, L505.5000, L300.4310, L300.3900, L501.9100, L100.0100 ####[facility] [id number] [place], [address] Hematocrit (Bld) [Volume fraction] 43.5 % Normal 37-47 [facility] Comment on above: Performed By: #### L 501.2450, L500.3400, L500.2500, L505.5000, L300.4310, L300.3900, L501.9100, L100.0100 ####[facility] [id number] [place], [address] Hemoglobin (Bld) [Mass/Vol] 14.1 g/dL Normal 12.0-15.0 [facility] Comment on above: Performed By: #### L 501.2450, L500.3400, L500.2500, L505.5000, L300.4310, L300.3900, L501.9100, L100.0100 ####[facility] [address] [place], [address] IG% 0.500 Normal 0.0-0.9 [facility] Comment on above: Result Comment: IG% - Immature Granulocytes (promyelocytes, myelocytes andmetamyelocytes) > 1% indicates that a LEFT SHIFT is Present. Performed By: #### L 501.2450, L500.3400, L500.2500, L505.5000, L300.4310, L300.3900, L501.9100, L100.0100 ####[facility] [address] [place], [address] Lymphocytes/100 WBC (Bld) 19.5 % Normal 19-41 [facility] Comment on above: Performed By: #### L 501.2450, L500.3400, L500.2500, L505.5000, L300.4310, L300.3900, L501.9100, L100.0100 ####[facility] [address] [place], [address] MCH (RBC) [Entitic mass] 28.0 pg Normal 27.0-32.0 [facility] Comment on above: Performed By: #### L 501.2450, L500.3400, L500.2500, L505.5000, L300.4310, L300.3900, L501.9100, L100.0100 ####[facility] [address] [place], [address] MCHC (RBC) [Mass/Vol] 32.4 g/dL Normal 32-36 [facility] Comment on above: Performed By: #### L 501.2450, L500.3400, L500.2500, L505.5000, L300.4310, L300.3900, L501.9100, L100.0100 ####[facility] [address] [place], [address] MCV (RBC) [Entitic vol] 86.3 fL Normal 81-99 [facility] Comment on above: Performed By: #### L 501.2450, L500.3400, L500.2500, L505.5000, L300.4310, L300.3900, L501.9100, L100.0100 ####[facility] [address] [place], [address] Monocytes/100 WBC (Bld) 8.1 % Normal 0-10 [facility] Comment on above: Performed By: #### L 501.2450, L500.3400, L500.2500, L505.5000, L300.4310, L300.3900, L501.9100, L100.0100 ####[facility] [address] [place], [address] Neutrophils/100 WBC (Bld) 70.3 % High 47-70 [facility] Comment on above: Performed By: #### L 501.2450, L500.3400, L500.2500, L505.5000, L300.4310, L300.3900, L501.9100, L100.0100 ####[facility] [address] [place], [address] Nucleated RBC (Bld) [#/Vol] 0 10*3/uL Normal 0-5 [facility] Comment on above: Performed By: #### L 501.2450, L500.3400, L500.2500, L505.5000, L300.4310, L300.3900, L501.9100, L100.0100 ####[facility] [address] [place], [address] Platelet mean volume (Bld) [Entitic vol] 10.2 fL Normal 6.2-12.0 [facility] Comment on above: Performed By: #### L 501.2450, L500.3400, L500.2500, L505.5000, L300.4310, L300.3900, L501.9100, L100.0100 ####[facility] [address] [place], [address] Platelets (Bld) [#/Vol] 350 10*3/uL Normal 150-450 [facility] Comment on above: Performed By: #### L 501.2450, L500.3400, L500.2500, L505.5000, L300.4310, L300.3900, L501.9100, L100.0100 ####[facility] [address] [place], [address] RBC (Bld) [#/Vol] 5.04 10*6/uL Normal 4.2-5.4 [facility] Comment on above: Performed By: #### L 501.2450, L500.3400, L500.2500, L505.5000, L300.4310, L300.3900, L501.9100, L100.0100 ####[facility] [address] [place], [address] RDW SD 48.3 fl High 35.1-43.9 [facility] Comment on above: Performed By: #### L 501.2450, L500.3400, L500.2500, L505.5000, L300.4310, L300.3900, L501.9100, L100.0100 ####[facility] [address] [place], [address] WBC (Bld) [#/Vol] 12.3 10*3/uL High 4.4-11.0 [facility] Comment on above: Performed By: #### L 501.2450, L500.3400, L500.2500, L505.5000, L300.4310, L300.3900, L501.9100, L100.0100 ####[facility] [address] [place], [address] Chest 1 View (Portable)on Chest 1 View (Portable) Normal [facility] Emergency Department Summary on 01-07-2025 Emergency Department Summary Normal [facility] H AND P Exam - Hospitaliston 01-07-2025 H&P Exam - Hospitalist Normal [facility] L499.0042on 01-07-2025 Trop T High Sen 15 ng/L High <=14 [facility] Comment on above: Performed By: #### L 499.0042 ####[facility] [address] [place], [address] L501.4021on 01-07-2025 Trop T High Sen 16 ng/L High <=14 [facility] Comment on above: Performed By: #### L 501.9520, L501.4021 ####[facility] [address] [place], [address] Lactic Acidon 01-07-2025 Lactate [Moles/Vol] 2.0 mmol/L Normal 0.0-2.0 [facility] Comment on above: Order Comment: Y Result Comment: Crit ical Result(s) Called at: 2232 by:??FIORELLA HAVEN TO EMMATEAL Results read back by same. Performed By: #### L 503.6005 ####[facility] [address] [place], [address] Lipaseon 01-07-2025 Lipase [Catalytic activity/Vol] 29 U/L Normal 13-75 [facility] Comment on above: Result Comment: Beverly lindsay note:LIPASE revised reference range effective 22.New Lipase methodology. Expected to produce lower valuesthan the previous assay method.NEW Reference Range: 13 - 75 U/L Performed By: #### L 501.2450, L500.3400, L500.2500, L505.5000, L300.4310, L300.3900, L501.9100, L100.0100 ####[facility] [address] [place], [place], [id number] Liver Profileon 01-07-2025 Albumin [Mass/Vol] 4.0 g/dL Normal 3.4-4.8 [facility] Comment on above: Performed By: #### L 501.2450, L500.3400, L500.2500, L505.5000, L300.4310, L300.3900, L501.9100, L100.0100 ####[facility] [address] [place], [place], [id number] ALK PHOS 79 U/L Normal 35-104 [facility] Comment on above: Performed By: #### L 501.2450, L500.3400, L500.2500, L505.5000, L300.4310, L300.3900, L501.9100, L100.0100 ####[facility] [address] [place], [address] ALT [Catalytic activity/Vol] 30 U/L Normal <=34 [facility] Comment on above: Performed By: #### L 501.2450, L500.3400, L500.2500, L505.5000, L300.4310, L300.3900, L501.9100, L100.0100 ####[facility] [address] [place], [address] AST [Catalytic activity/Vol] 21 U/L Normal <=31 [facility] Comment on above: Performed By: #### L 501.2450, L500.3400, L500.2500, L505.5000, L300.4310, L300.3900, L501.9100, L100.0100 ####[facility] [address] [place], [address] Bilirubin [Mass/Vol] 0.26 mg/dL Normal 0.00-1.30 [facility] Comment on above: Performed By: #### L 501.2450, L500.3400, L500.2500, L505.5000, L300.4310, L300.3900, L501.9100, L100.0100 ####[facility] [address] [place], [address] Bilirubin.direct [Mass/Vol] 0.14 mg/dL Normal 0.00-0.30 [facility] Comment on above: Performed By: #### L 501.2450, L500.3400, L500.2500, L505.5000, L300.4310, L300.3900, L501.9100, L100.0100 ####[facility] [address] [place], [address] Globulin (S) [Mass/Vol] 3.0 g/dL Normal 2.2-4.2 [facility] Comment on above: Performed By: #### L 501.2450, L500.3400, L500.2500, L505.5000, L300.4310, L300.3900, L501.9100, L100.0100 ####[facility] [address] [place], [address] T PROT 7.0 g/dL Normal 5.9-8.4 [facility] Comment on above: Performed By: #### L 501.2450, L500.3400, L500.2500, L505.5000, L300.4310, L300.3900, L501.9100, L100.0100 ####[facility] [address] [place], [address] Partial Thromboplast Timeon 01-07-2025 aPTT Coag (Bld) [Time] 24.6 s Normal 24.1-36.2 [facility] Comment on above: Performed By: #### L 501.2450, L500.3400, L500.2500, L505.5000, L300.4310, L300.3900, L501.9100, L100.0100 ####[facility] [address] [place], [address] Prothrombin Time w/INRon INR Coag (PPP) [Relative time] 0.9 {INR} Normal [facility] Comment on above: Performed By: #### L 501.2450, L500.3400, L500.2500, L505.5000, L300.4310, L300.3900, L501.9100, L100.0100 ####[facility] [address] [place], [address] PT Coag (PPP) [Time] 12.7 s Normal 11.7-14.9 [facility] Comment on above: Performed By: #### L 501.2450, L500.3400, L500.2500, L505.5000, L300.4310, L300.3900, L501.9100, L100.0100 ####[facility] [address] [place], [address] Thyroid Stim Hormone (TSH)on 01-07-2025 TSH 5.620 uIU/mL High 0.300-4.200 [facility] Comment on above: Performed By: #### L 501.9520, L501.4021 ####[facility] [address] [place], [address] Urinalysis, Completeon 01-07 BACTERIA 1+ /hpf Normal None Seen [facility] Comment on above: Order Comment: CLEAN CATCH Performed By: #### L 400.0001 ####[facility] [address] [place], [address] RBC 0-5 SEEN Normal 0-5 [facility] Comment on above: Order Comment: CLEAN CATCH Performed By: #### L 400.0001 ####[facility] [address] [place], [address] WBC 10-25 SEEN Normal 0-5 [facility] Comment on above: Order Comment: CLEAN CATCH Performed By: #### L 400.0001 ####[facility] [address] [place], [address] EPI,SQUAMOUS 0 SEEN Normal 5-10 [facility] Comment on above: Order Comment: CLEAN CATCH Performed By: #### L 400.0001 ####[facility] [address] [place], [address] Mucus Ql (Urine sed) 0 SEEN Normal [facility] Comment on above: Order Comment: CLEAN CATCH Performed By: #### L 400.0001 ####[facility] [address] [place], [address] Urine Drug Screen (VISTA)on 01-07-2025 AMPHETAMINES Negative Normal <1000 ng/mL [facility] Comment on above: Performed By: #### L 501.2450, L500.3400, L500.2500, L505.5000, L300.4310, L300.3900, L501.9100, L100.0100 ####[facility] [address] [place], [address] BARBITIURATES Negative Normal < 200 ng/mL [facility] Comment on above: Performed By: #### L 501.2450, L500.3400, L500.2500, L505.5000, L300.4310, L300.3900, L501.9100, L100.0100 ####[facility] [address] [place], [address] BENZODIAZIPINE Negative Normal < 200 ng/mL [facility] Comment on above: Performed By: #### L 501.2450, L500.3400, L500.2500, L505.5000, L300.4310, L300.3900, L501.9100, L100.0100 ####[facility] [address] [place], [place], [phone] BUP Ur Drug Scr Negative Normal < 200 ng/mL [facility] Comment on above: Performed By: #### L 501.2450, L500.3400, L500.2500, L505.5000, L300.4310, L300.3900, L501.9100, L100.0100 ####[facility] [address] [place], [address] COCAINE Negative Normal < 300 ng/mL [facility] Comment on above: Performed By: #### L 501.2450, L500.3400, L500.2500, L505.5000, L300.4310, L300.3900, L501.9100, L100.0100 ####[facility] [address] [place], [address] Fentanyl Negative Normal [facility] Comment on above: Performed By: #### L 501.2450, L500.3400, L500.2500, L505.5000, L300.4310, L300.3900, L501.9100, L100.0100 ####[facility] [address] [place], [place], [id number] METHADONE Negative Normal < 300 ng/mL [facility] Comment on above: Performed By: #### L 501.2450, L500.3400, L500.2500, L505.5000, L300.4310, L300.3900, L501.9100, L100.0100 ####[facility] [address] [place], [address] OPIATES Negative Normal < 300 ng/mL [facility] Comment on above: Performed By: #### L 501.2450, L500.3400, L500.2500, L505.5000, L300.4310, L300.3900, L501.9100, L100.0100 ####[facility] [address] [place], [address] OXYCODONE Negative Normal < 100 ng/mL [facility] Comment on above: Performed By: #### L 501.2450, L500.3400, L500.2500, L505.5000, L300.4310, L300.3900, L501.9100, L100.0100 ####[facility] [address] [place], [place], [phone] PCP Negative Normal < 25 ng/mL [facility] Comment on above: Performed By: #### L 501.2450, L500.3400, L500.2500, L505.5000, L300.4310, L300.3900, L501.9100, L100.0100 ####[facility] [address] [place], [address] THC Negative Normal < 50 ng/mL [facility] Comment on above: Performed By: #### L 501.2450, L500.3400, L500.2500, L505.5000, L300.4310, L300.3900, L501.9100, L100.0100 ####[facility] [address] [place], [place], [id number] MR/Sarah 12-26-2024 MR/BMS.BP Normal [facility] Spine Lumbar (Routine)on Spine Lumbar (Routine) Normal [facility] Shoulder min 2 Viewson 12-09 Shoulder min 2 Views Normal [facility] MR/BMS.BPon 12-03-2024 MR/BMS.BP Normal [facility] Basic Metabolic Profile (BMP )on 11-14-2024 BUN/CRE 21.4 RATIO High 10-20 [facility] Comment on above: Performed By: #### L 100.0100, L500.2500 ####[facility] [address] [place], [address] Calcium [Mass/Vol] 10.1 mg/dL Normal 7.6-11.0 [facility] Comment on above: Performed By: #### L 100.0100, L500.2500 ####[facility] [address] [place], [address] Chloride [Moles/Vol] 102 mmol/L Normal 98-108 [facility] Comment on above: Performed By: #### L 100.0100, L500.2500 ####[facility] [address] [place], [address] CO2 [Moles/Vol] 24.9 mmol/L Normal 21.0-32.0 [facility] Comment on above: Performed By: #### L 100.0100, L500.2500 ####[facility] [address] [place], [address] Creatinine [Mass/Vol] 0.94 mg/dL Normal 0.70-1.20 [facility] Comment on above: Performed By: #### L 100.0100, L500.2500 ####[facility] [address] [place], [address] ECRCL 58.42 ml/min Normal 50-250 [facility] Comment on above: Performed By: #### L 100.0100, L500.2500 ####[facility] [address] [place], [address] GAP 12 Normal 5-15 [facility] Comment on above: Performed By: #### L 100.0100, L500.2500 ####[facility] [address] [place], [address] GFR/1.73 sq M.predicted among non-blacks MDRD (S/P/Bld) [Vol rate/Area] 62 mL/min/{1.73_m2} Normal >60 [facility] Comment on above: Result Comment: mL/m in/1.73m2 CKD-EPI Creatinine Equation (2020) Performed By: #### L 100.0100, L500.2500 ####[facility] [address] [place], [address] Glucose [Mass/Vol] 104 mg/dL High 70-99 [facility] Comment on above: Performed By: #### L 100.0100, L500.2500 ####[facility] [address] [place], [address] Potassium [Moles/Vol] 4.7 mmol/L Normal 3.3-5.1 [facility] Comment on above: Performed By: #### L 100.0100, L500.2500 ####[facility] [address] [place], [address] Sodium [Moles/Vol] 139 mmol/L Normal 133-145 [facility] Comment on above: Performed By: #### L 100.0100, L500.2500 ####[facility] [address] [place], [address] Urea nitrogen [Mass/Vol] 20 mg/dL High 4-19 [facility] Comment on above: Performed By: #### L 100.0100, L500.2500 ####[facility] [address] [place], [address] CBC W/Diff, Automatedon 04-0 4-2024 Absolute Lymph 1.74 X10 3/uL Normal 0.83-4.51 [facility] Comment on above: Performed By: #### L 100.0100, L500.2500 ####[facility] [address] [place], [address] Absolute Neut 5.3 X10 3/uL Normal 2.0-7.7 [facility] Comment on above: Performed By: #### L 100.0100, L500.2500 ####[facility] [address] [place], [address] Basophils/100 WBC (Bld) 0.4 % Normal 0-1 [facility] Comment on above: Performed By: #### L 100.0100, L500.2500 ####[facility] [address] [place], [address] Eosinophils/100 WBC (Bld) 3.9 % Normal 0-5 [facility] Comment on above: Performed By: #### L 100.0100, L500.2500 ####[facility] [address] [place], [address] Erythrocyte distribution width (RBC) [Ratio] 15.3 % High 11.6-14.6 [facility] Comment on above: Performed By: #### L 100.0100, L500.2500 ####[facility] [address] [place], [address] Hematocrit (Bld) [Volume fraction] 42.2 % Normal 37-47 [facility] Comment on above: Performed By: #### L 100.0100, L500.2500 ####[facility] [address] [place], [address] Hemoglobin (Bld) [Mass/Vol] 13.7 g/dL Normal 12.0-15.0 [facility] Comment on above: Performed By: #### L 100.0100, L500.2500 ####[facility] [address] [place], [address] IG% 0.400 Normal 0.0-0.9 [facility] Comment on above: Result Comment: IG% - Immature Granulocytes (promyelocytes, myelocytes andmetamyelocytes) > 1% indicates that a LEFT SHIFT is Present. Performed By: #### L 100.0100, L500.2500 ####[facility] [address] [place], [address] Lymphocytes/100 WBC (Bld) 22.0 % Normal 19-41 [facility] Comment on above: Performed By: #### L 100.0100, L500.2500 ####[facility] [address] [place], [address] MCH (RBC) [Entitic mass] 27.6 pg Normal 27.0-32.0 [facility] Comment on above: Performed By: #### L 100.0100, L500.2500 ####[facility] [address] [place], [address] MCHC (RBC) [Mass/Vol] 32.5 g/dL Normal 32-36 [facility] Comment on above: Performed By: #### L 100.0100, L500.2500 ####[facility] [address] [place], [address] MCV (RBC) [Entitic vol] 85.1 fL Normal 81-99 [facility] Comment on above: Performed By: #### L 100.0100, L500.2500 ####[facility] [address] [place], [address] Monocytes/100 WBC (Bld) 6.4 % Normal 0-10 [facility] Comment on above: Performed By: #### L 100.0100, L500.2500 ####[facility] [address] [place], [address] Neutrophils/100 WBC (Bld) 66.9 % Normal 47-70 [facility] Comment on above: Performed By: #### L 100.0100, L500.2500 ####[facility] [address] [place], [address] Nucleated RBC (Bld) [#/Vol] 0 10*3/uL Normal 0-5 [facility] Comment on above: Performed By: #### L 100.0100, L500.2500 ####[facility] [address] [place], [address] Platelet mean volume (Bld) [Entitic vol] 9.5 fL Normal 6.2-12.0 [facility] Comment on above: Performed By: #### L 100.0100, L500.2500 ####[facility] [address] [place], [address] Platelets (Bld) [#/Vol] 349 10*3/uL Normal 150-450 [facility] Comment on above: Performed By: #### L 100.0100, L500.2500 ####[facility] [address] [place], [address] RBC (Bld) [#/Vol] 4.96 10*6/uL Normal 4.2-5.4 [facility] Comment on above: Performed By: #### L 100.0100, L500.2500 ####[facility] [address] [place], [address] RDW SD 46.8 fl High 35.1-43.9 [facility] Comment on above: Performed By: #### L 100.0100, L500.2500 ####[facility] [address] [place], [address] WBC (Bld) [#/Vol] 7.9 10*3/uL Normal 4.4-11.0 [facility] Comment on above: Performed By: #### L 100.0100, L500.2500 ####[facility] [address] [place], [address] Emergency Department Summary on 11-14-2024 Emergency Department Summary Normal [facility] Femur Min 2 Viewson 11-15-19 25 Femur Min 2 Views Normal [facility] HIP, UNI W/ Pelvis 2-3 Views on 11-14-2024 HIP, UNI W/ Pelvis 2-3 Views Normal [facility] Basic Metabolic Profile (BMP )on 10-22-2024 BUN Normal 4-19 [facility] Comment on above: Result Comment: Canc elled via OM: Order cancelled - Patient discharged Performed By: #### L 500.2500, L100.0100 ####[facility] [address] [place], [address] BUN/CRE Normal 10-20 [facility] Comment on above: Result Comment: Canc elled via OM: Order cancelled - Patient discharged Performed By: #### L 500.2500, L100.0100 ####[facility] [address] [place], [address] Calcium Normal 7.6-11.0 [facility] Comment on above: Result Comment: Canc elled via OM: Order cancelled - Patient discharged Performed By: #### L 500.2500, L100.0100 ####[facility] [address] [place], [address] CL Normal 98-108 [facility] Comment on above: Result Comment: Canc elled via OM: Order cancelled - Patient discharged Performed By: #### L 500.2500, L100.0100 ####[facility] [address] [place], [address] CO2 Normal 21.0-32.0 [facility] Comment on above: Result Comment: Canc elled via OM: Order cancelled - Patient discharged Performed By: #### L 500.2500, L100.0100 ####[facility] [address] [place], [address] CREAT,SERUM Normal 0.70-1.20 [facility] Comment on above: Result Comment: Canc elled via OM: Order cancelled - Patient discharged Performed By: #### L 500.2500, L100.0100 ####[facility] [address] [place], [address] eGFR Normal >60 [facility] Comment on above: Result Comment: Canc elled via OM: Order cancelled - Patient discharged Performed By: #### L 500.2500, L100.0100 ####[facility] [address] [place], [address] GAP Normal 5-15 [facility] Comment on above: Result Comment: Canc elled via OM: Order cancelled - Patient discharged Performed By: #### L 500.2500, L100.0100 ####[facility] [address] [place], [address] GLU Normal 70-99 [facility] Comment on above: Result Comment: Canc elled via OM: Order cancelled - Patient discharged Performed By: #### L 500.2500, L100.0100 ####[facility] [address] [place], [address] Potassium Normal 3.3-5.1 [facility] Comment on above: Result Comment: Canc elled via OM: Order cancelled - Patient discharged Performed By: #### L 500.2500, L100.0100 ####[facility] [address] [place], [address] Basic Metabolic Profile (BMP) Normal 133-145 [facility] Comment on above: Result Comment: Canc elled via OM: Order cancelled - Patient discharged Performed By: #### L 500.2500, L100.0100 ####[facility] [address] [place], [address] CBC W/Diff, Automatedon 03- Absolute Neut Normal 2.0-7.7 [facility] Comment on above: Result Comment: Canc elled via OM: Order cancelled - Patient discharged Performed By: #### L 500.2500, L100.0100 ####[facility] [address] [place], [address] HCT Normal 37-47 [facility] Comment on above: Result Comment: Canc elled via OM: Order cancelled - Patient discharged Performed By: #### L 500.2500, L100.0100 ####[facility] [address] [place], [address] HGB Normal 12.0-15.0 [facility] Comment on above: Result Comment: Canc elled via OM: Order cancelled - Patient discharged Performed By: #### L 500.2500, L100.0100 ####[facility] [address] [place], [address] MCH Normal 27.0-32.0 [facility] Comment on above: Result Comment: Canc elled via OM: Order cancelled - Patient discharged Performed By: #### L 500.2500, L100.0100 ####[facility] [address] [place], [address] MCHC Normal 32-36 [facility] Comment on above: Result Comment: Canc elled via OM: Order cancelled - Patient discharged Performed By: #### L 500.2500, L100.0100 ####[facility] [address] [place], [address] MCV Normal 81-99 [facility] Comment on above: Result Comment: Canc elled via OM: Order cancelled - Patient discharged Performed By: #### L 500.2500, L100.0100 ####[facility] [address] [place], [address] NEUT% Normal 47-70 [facility] Comment on above: Result Comment: Canc elled via OM: Order cancelled - Patient discharged Performed By: #### L 500.2500, L100.0100 ####[facility] [address] [place], [address] PLT Normal 150-450 [facility] Comment on above: Result Comment: Canc elled via OM: Order cancelled - Patient discharged Performed By: #### L 500.2500, L100.0100 ####[facility] [address] [place], [address] RBC Normal 4.2-5.4 [facility] Comment on above: Result Comment: Canc elled via OM: Order cancelled - Patient discharged Performed By: #### L 500.2500, L100.0100 ####[facility] [address] [place], [address] RDW CV Normal 11.6-14.6 [facility] Comment on above: Result Comment: Canc elled via OM: Order cancelled - Patient discharged Performed By: #### L 500.2500, L100.0100 ####[facility] [address] [place], [address] RDW SD Normal 35.1-43.9 [facility] Comment on above: Result Comment: Canc elled via OM: Order cancelled - Patient discharged Performed By: #### L 500.2500, L100.0100 ####[facility] [address] [place], [address] WBC Normal 4.4-11.0 [facility] Comment on above: Result Comment: Canc elled via OM: Order cancelled - Patient discharged Performed By: #### L 500.2500, L100.0100 ####[facility] [address] [place], [address] Basic Metabolic Profile (BMP )on 10-21-2024 BUN Normal 4-19 [facility] Comment on above: Result Comment: Canc elled via OM: Order cancelled - Patient discharged Performed By: #### L 100.0100, L500.2500 ####[facility] [address] [place], [address] BUN/CRE Normal 10-20 [facility] Comment on above: Result Comment: Canc elled via OM: Order cancelled - Patient discharged Performed By: #### L 100.0100, L500.2500 ####[facility] [address] [place], [address] Calcium Normal 7.6-11.0 [facility] Comment on above: Result Comment: Canc elled via OM: Order cancelled - Patient discharged Performed By: #### L 100.0100, L500.2500 ####[facility] [address] [place], [address] CL Normal 98-108 [facility] Comment on above: Result Comment: Canc elled via OM: Order cancelled - Patient discharged Performed By: #### L 100.0100, L500.2500 ####[facility] [address] [place], [address] CO2 Normal 21.0-32.0 [facility] Comment on above: Result Comment: Canc elled via OM: Order cancelled - Patient discharged Performed By: #### L 100.0100, L500.2500 ####[facility] [address] [place], [address] CREAT,SERUM Normal 0.70-1.20 [facility] Comment on above: Result Comment: Canc elled via OM: Order cancelled - Patient discharged Performed By: #### L 100.0100, L500.2500 ####[facility] [address] [place], [address] eGFR Normal >60 [facility] Comment on above: Result Comment: Canc elled via OM: Order cancelled - Patient discharged Performed By: #### L 100.0100, L500.2500 ####[facility] [address] [place], [address] GAP Normal 5-15 [facility] Comment on above: Result Comment: Canc elled via OM: Order cancelled - Patient discharged Performed By: #### L 100.0100, L500.2500 ####[facility] [address] [place], [address] GLU Normal 70-99 [facility] Comment on above: Result Comment: Canc elled via OM: Order cancelled - Patient discharged Performed By: #### L 100.0100, L500.2500 ####[facility] [address] [place], [address] Potassium Normal 3.3-5.1 [facility] Comment on above: Result Comment: Canc elled via OM: Order cancelled - Patient discharged Performed By: #### L 100.0100, L500.2500 ####[facility] [address] [place], [address] Basic Metabolic Profile (BMP) Normal 133-145 [facility] Comment on above: Result Comment: Canc elled via OM: Order cancelled - Patient discharged Performed By: #### L 100.0100, L500.2500 ####[facility] [address] [place], [address] CBC W/Diff, Automatedon - Absolute Neut Normal 2.0-7.7 [facility] Comment on above: Result Comment: Canc elled via OM: Order cancelled - Patient discharged Performed By: #### L 100.0100, L500.2500 ####[facility] [address] [place], [address] HCT Normal 37-47 [facility] Comment on above: Result Comment: Canc elled via OM: Order cancelled - Patient discharged Performed By: #### L 100.0100, L500.2500 ####[facility] [address] [place], [address] HGB Normal 12.0-15.0 [facility] Comment on above: Result Comment: Canc elled via OM: Order cancelled - Patient discharged Performed By: #### L 100.0100, L500.2500 ####[facility] [address] [place], [address] MCH Normal 27.0-32.0 [facility] Comment on above: Result Comment: Canc elled via OM: Order cancelled - Patient discharged Performed By: #### L 100.0100, L500.2500 ####[facility] [address] [place], [address] MCHC Normal 32-36 [facility] Comment on above: Result Comment: Canc elled via OM: Order cancelled - Patient discharged Performed By: #### L 100.0100, L500.2500 ####[facility] [address] [place], [address] MCV Normal 81-99 [facility] Comment on above: Result Comment: Canc elled via OM: Order cancelled - Patient discharged Performed By: #### L 100.0100, L500.2500 ####[facility] [address] [place], [address] NEUT% Normal 47-70 [facility] Comment on above: Result Comment: Canc elled via OM: Order cancelled - Patient discharged Performed By: #### L 100.0100, L500.2500 ####[facility] [address] [place], [address] PLT Normal 150-450 [facility] Comment on above: Result Comment: Canc elled via OM: Order cancelled - Patient discharged Performed By: #### L 100.0100, L500.2500 ####[facility] [address] [place], [address] RBC Normal 4.2-5.4 [facility] Comment on above: Result Comment: Canc elled via OM: Order cancelled - Patient discharged Performed By: #### L 100.0100, L500.2500 ####[facility] [address] [place], [address] RDW CV Normal 11.6-14.6 [facility] Comment on above: Result Comment: Canc elled via OM: Order cancelled - Patient discharged Performed By: #### L 100.0100, L500.2500 ####[facility] [address] [place], [address] RDW SD Normal 35.1-43.9 [facility] Comment on above: Result Comment: Canc elled via OM: Order cancelled - Patient discharged Performed By: #### L 100.0100, L500.2500 ####[facility] [address] [place], [address] WBC Normal 4.4-11.0 [facility] Comment on above: Result Comment: Canc elled via OM: Order cancelled - Patient discharged Performed By: #### L 100.0100, L500.2500 ####[facility] [address] [place], [address] L/S Spine Min 4 Viewson 10-11 L/S Spine Min 4 Views Normal [facility] Basic Metabolic Profile (BMP )on 10-20-2024 BUN Normal 4-19 [facility] Comment on above: Result Comment: Canc elled via OM: Order cancelled - Patient discharged Performed By: #### L 100.0100, L500.2500 ####[facility] [address] [place], [address] BUN/CRE Normal 10-20 [facility] Comment on above: Result Comment: Canc elled via OM: Order cancelled - Patient discharged Performed By: #### L 100.0100, L500.2500 ####[facility] [address] [place], [address] Calcium Normal 7.6-11.0 [facility] Comment on above: Result Comment: Canc elled via OM: Order cancelled - Patient discharged Performed By: #### L 100.0100, L500.2500 ####[facility] [address] [place], [address] CL Normal 98-108 [facility] Comment on above: Result Comment: Canc elled via OM: Order cancelled - Patient discharged Performed By: #### L 100.0100, L500.2500 ####[facility] [address] [place], [address] CO2 Normal 21.0-32.0 [facility] Comment on above: Result Comment: Canc elled via OM: Order cancelled - Patient discharged Performed By: #### L 100.0100, L500.2500 ####[facility] [address] [place], [address] CREAT,SERUM Normal 0.70-1.20 [facility] Comment on above: Result Comment: Canc elled via OM: Order cancelled - Patient discharged Performed By: #### L 100.0100, L500.2500 ####[facility] [address] [place], [address] eGFR Normal >60 [facility] Comment on above: Result Comment: Canc elled via OM: Order cancelled - Patient discharged Performed By: #### L 100.0100, L500.2500 ####[facility] [address] [place], [address] GAP Normal 5-15 [facility] Comment on above: Result Comment: Canc elled via OM: Order cancelled - Patient discharged Performed By: #### L 100.0100, L500.2500 ####[facility] [address] [place], [address] GLU Normal 70-99 [facility] Comment on above: Result Comment: Canc elled via OM: Order cancelled - Patient discharged Performed By: #### L 100.0100, L500.2500 ####[facility] [address] [place], [address] Potassium Normal 3.3-5.1 [facility] Comment on above: Result Comment: Canc elled via OM: Order cancelled - Patient discharged Performed By: #### L 100.0100, L500.2500 ####[facility] [address] [place], [address] Basic Metabolic Profile (BMP) Normal 133-145 [facility] Comment on above: Result Comment: Canc elled via OM: Order cancelled - Patient discharged Performed By: #### L 100.0100, L500.2500 ####[facility] [address] [place], [address] CBC W/Diff, Automatedon 03-1 0-2024 Absolute Neut Normal 2.0-7.7 [facility] Comment on above: Result Comment: Canc elled via OM: Order cancelled - Patient discharged Performed By: #### L 100.0100, L500.2500 ####[facility] [address] [place], [address] HCT Normal 37-47 [facility] Comment on above: Result Comment: Canc elled via OM: Order cancelled - Patient discharged Performed By: #### L 100.0100, L500.2500 ####[facility] [address] [place], [address] HGB Normal 12.0-15.0 [facility] Comment on above: Result Comment: Canc elled via OM: Order cancelled - Patient discharged Performed By: #### L 100.0100, L500.2500 ####[facility] [address] [place], [address] MCH Normal 27.0-32.0 [facility] Comment on above: Result Comment: Canc elled via OM: Order cancelled - Patient discharged Performed By: #### L 100.0100, L500.2500 ####[facility] [address] [place], [address] MCHC Normal 32-36 [facility] Comment on above: Result Comment: Canc elled via OM: Order cancelled - Patient discharged Performed By: #### L 100.0100, L500.2500 ####[facility] [address] [place], [address] MCV Normal 81-99 [facility] Comment on above: Result Comment: Canc elled via OM: Order cancelled - Patient discharged Performed By: #### L 100.0100, L500.2500 ####[facility] [address] [place], [address] NEUT% Normal 47-70 [facility] Comment on above: Result Comment: Canc elled via OM: Order cancelled - Patient discharged Performed By: #### L 100.0100, L500.2500 ####[facility] [address] [place], [address] PLT Normal 150-450 [facility] Comment on above: Result Comment: Canc elled via OM: Order cancelled - Patient discharged Performed By: #### L 100.0100, L500.2500 ####[facility] [address] [place], [address] RBC Normal 4.2-5.4 [facility] Comment on above: Result Comment: Canc elled via OM: Order cancelled - Patient discharged Performed By: #### L 100.0100, L500.2500 ####[facility] [address] [place], [address] RDW CV Normal 11.6-14.6 [facility] Comment on above: Result Comment: Canc elled via OM: Order cancelled - Patient discharged Performed By: #### L 100.0100, L500.2500 ####[facility] [address] [place], [address] RDW SD Normal 35.1-43.9 [facility] Comment on above: Result Comment: Canc elled via OM: Order cancelled - Patient discharged Performed By: #### L 100.0100, L500.2500 ####[facility] [address] [place], [address] WBC Normal 4.4-11.0 [facility] Comment on above: Result Comment: Canc elled via OM: Order cancelled - Patient discharged Performed By: #### L 100.0100, L500.2500 ####[facility] [address] [place], [address] Basic Metabolic Profile (BMP )on 10-19-2024 BUN Normal 4-19 [facility] Comment on above: Result Comment: Canc elled via OM: Order cancelled - Patient discharged Performed By: #### L 500.2500, L100.0100 ####[facility] [address] [place], [address] BUN/CRE Normal 10-20 [facility] Comment on above: Result Comment: Canc elled via OM: Order cancelled - Patient discharged Performed By: #### L 500.2500, L100.0100 ####[facility] [address] [place], [address] Calcium Normal 7.6-11.0 [facility] Comment on above: Result Comment: Canc elled via OM: Order cancelled - Patient discharged Performed By: #### L 500.2500, L100.0100 ####[facility] [address] [place], [address] CL Normal 98-108 [facility] Comment on above: Result Comment: Canc elled via OM: Order cancelled - Patient discharged Performed By: #### L 500.2500, L100.0100 ####[facility] [address] [place], [address] CO2 Normal 21.0-32.0 [facility] Comment on above: Result Comment: Canc elled via OM: Order cancelled - Patient discharged Performed By: #### L 500.2500, L100.0100 ####[facility] [address] [place], [address] CREAT,SERUM Normal 0.70-1.20 [facility] Comment on above: Result Comment: Canc elled via OM: Order cancelled - Patient discharged Performed By: #### L 500.2500, L100.0100 ####[facility] [address] [place], [address] eGFR Normal >60 [facility] Comment on above: Result Comment: Canc elled via OM: Order cancelled - Patient discharged Performed By: #### L 500.2500, L100.0100 ####[facility] [address] [place], [address] GAP Normal 5-15 [facility] Comment on above: Result Comment: Canc elled via OM: Order cancelled - Patient discharged Performed By: #### L 500.2500, L100.0100 ####[facility] [address] [place], [address] GLU Normal 70-99 [facility] Comment on above: Result Comment: Canc elled via OM: Order cancelled - Patient discharged Performed By: #### L 500.2500, L100.0100 ####[facility] [address] [place], [address] Potassium Normal 3.3-5.1 [facility] Comment on above: Result Comment: Canc elled via OM: Order cancelled - Patient discharged Performed By: #### L 500.2500, L100.0100 ####[facility] [address] [place], [address] Basic Metabolic Profile (BMP) Normal 133-145 [facility] Comment on above: Result Comment: Canc elled via OM: Order cancelled - Patient discharged Performed By: #### L 500.2500, L100.0100 ####[facility] [address] [place], [address] CBC W/Diff, Automatedon 03-0 Absolute Neut Normal 2.0-7.7 [facility] Comment on above: Result Comment: Canc elled via OM: Order cancelled - Patient discharged Performed By: #### L 500.2500, L100.0100 ####[facility] [address] [place], [address] HCT Normal 37-47 [facility] Comment on above: Result Comment: Canc elled via OM: Order cancelled - Patient discharged Performed By: #### L 500.2500, L100.0100 ####[facility] [address] [place], [address] HGB Normal 12.0-15.0 [facility] Comment on above: Result Comment: Canc elled via OM: Order cancelled - Patient discharged Performed By: #### L 500.2500, L100.0100 ####[facility] [address] [place], [address] MCH Normal 27.0-32.0 [facility] Comment on above: Result Comment: Canc elled via OM: Order cancelled - Patient discharged Performed By: #### L 500.2500, L100.0100 ####[facility] [address] [place], [address] MCHC Normal 32-36 [facility] Comment on above: Result Comment: Canc elled via OM: Order cancelled - Patient discharged Performed By: #### L 500.2500, L100.0100 ####[facility] [address] [place], [address] MCV Normal 81-99 [facility] Comment on above: Result Comment: Canc elled via OM: Order cancelled - Patient discharged Performed By: #### L 500.2500, L100.0100 ####[facility] [address] [place], [address] NEUT% Normal 47-70 [facility] Comment on above: Result Comment: Canc elled via OM: Order cancelled - Patient discharged Performed By: #### L 500.2500, L100.0100 ####[facility] [address] [place], [address] PLT Normal 150-450 [facility] Comment on above: Result Comment: Canc elled via OM: Order cancelled - Patient discharged Performed By: #### L 500.2500, L100.0100 ####[facility] [address] [place], [address] RBC Normal 4.2-5.4 [facility] Comment on above: Result Comment: Canc elled via OM: Order cancelled - Patient discharged Performed By: #### L 500.2500, L100.0100 ####[facility] [address] [place], [address] RDW CV Normal 11.6-14.6 [facility] Comment on above: Result Comment: Canc elled via OM: Order cancelled - Patient discharged Performed By: #### L 500.2500, L100.0100 ####[facility] [address] [place], [address] RDW SD Normal 35.1-43.9 [facility] Comment on above: Result Comment: Canc elled via OM: Order cancelled - Patient discharged Performed By: #### L 500.2500, L100.0100 ####[facility] [address] [place], [address] WBC Normal 4.4-11.0 [facility] Comment on above: Result Comment: Canc elled via OM: Order cancelled - Patient discharged Performed By: #### L 500.2500, L100.0100 ####[facility] [address] [place], [address] Basic Metabolic Profile (BMP )on 10-18-2024 BUN Normal 4-19 [facility] Comment on above: Result Comment: Canc elled via OM: Order cancelled - Patient discharged Performed By: #### L 100.0100, L500.2500 ####[facility] [facility] [address] [place], [address] BUN/CRE Normal 10-20 [facility] Comment on above: Result Comment: Canc elled via OM: Order cancelled - Patient discharged Performed By: #### L 100.0100, L500.2500 ####[facility] [address] [place], [address] Calcium Normal 7.6-11.0 [facility] Comment on above: Result Comment: Canc elled via OM: Order cancelled - Patient discharged Performed By: #### L 100.0100, L500.2500 ####[facility] [address] [place], [address] CL Normal 98-108 [facility] Comment on above: Result Comment: Canc elled via OM: Order cancelled - Patient discharged Performed By: #### L 100.0100, L500.2500 ####[facility] [address] [place], [address] CO2 Normal 21.0-32.0 [facility] Comment on above: Result Comment: Canc elled via OM: Order cancelled - Patient discharged Performed By: #### L 100.0100, L500.2500 ####[facility] [address] [place], [address] CREAT,SERUM Normal 0.70-1.20 [facility] Comment on above: Result Comment: Canc elled via OM: Order cancelled - Patient discharged Performed By: #### L 100.0100, L500.2500 ####[facility] [address] [place], [address] eGFR Normal >60 [facility] Comment on above: Result Comment: Canc elled via OM: Order cancelled - Patient discharged Performed By: #### L 100.0100, L500.2500 ####[facility] [address] [place], [address] GAP Normal 5-15 [facility] Comment on above: Result Comment: Canc elled via OM: Order cancelled - Patient discharged Performed By: #### L 100.0100, L500.2500 ####[facility] [address] [place], [address] GLU Normal 70-99 [facility] Comment on above: Result Comment: Canc elled via OM: Order cancelled - Patient discharged Performed By: #### L 100.0100, L500.2500 ####[facility] [address] [place], [address] Potassium Normal 3.3-5.1 [facility] Comment on above: Result Comment: Canc elled via OM: Order cancelled - Patient discharged Performed By: #### L 100.0100, L500.2500 ####[facility] [address] [place], [address] Basic Metabolic Profile (BMP) Normal 133-145 [facility] Comment on above: Result Comment: Canc elled via OM: Order cancelled - Patient discharged Performed By: #### L 100.0100, L500.2500 ####[facility] [address] [place], [address] CBC W/Diff, Automatedon 03-0 Absolute Neut Normal 2.0-7.7 [facility] Comment on above: Result Comment: Canc elled via OM: Order cancelled - Patient discharged Performed By: #### L 100.0100, L500.2500 ####[facility] [address] [place], [address] HCT Normal 37-47 [facility] Comment on above: Result Comment: Canc elled via OM: Order cancelled - Patient discharged Performed By: #### L 100.0100, L500.2500 ####[facility] [address] [place], [address] HGB Normal 12.0-15.0 [facility] Comment on above: Result Comment: Canc elled via OM: Order cancelled - Patient discharged Performed By: #### L 100.0100, L500.2500 ####[facility] [address] [place], [address] MCH Normal 27.0-32.0 [facility] Comment on above: Result Comment: Canc elled via OM: Order cancelled - Patient discharged Performed By: #### L 100.0100, L500.2500 ####[facility] [address] [place], [address] MCHC Normal 32-36 [facility] Comment on above: Result Comment: Canc elled via OM: Order cancelled - Patient discharged Performed By: #### L 100.0100, L500.2500 ####[facility] [address] [place], [address] MCV Normal 81-99 [facility] Comment on above: Result Comment: Canc elled via OM: Order cancelled - Patient discharged Performed By: #### L 100.0100, L500.2500 ####[facility] [address] [place], [address] NEUT% Normal 47-70 [facility] Comment on above: Result Comment: Canc elled via OM: Order cancelled - Patient discharged Performed By: #### L 100.0100, L500.2500 ####[facility] [address] [place], [address] PLT Normal 150-450 [facility] Comment on above: Result Comment: Canc elled via OM: Order cancelled - Patient discharged Performed By: #### L 100.0100, L500.2500 ####[facility] [address] [place], [address] RBC Normal 4.2-5.4 [facility] Comment on above: Result Comment: Canc elled via OM: Order cancelled - Patient discharged Performed By: #### L 100.0100, L500.2500 ####[facility] [address] [place], [address] RDW CV Normal 11.6-14.6 [facility] Comment on above: Result Comment: Canc elled via OM: Order cancelled - Patient discharged Performed By: #### L 100.0100, L500.2500 ####[facility] [address] [place], [address] RDW SD Normal 35.1-43.9 [facility] Comment on above: Result Comment: Canc elled via OM: Order cancelled - Patient discharged Performed By: #### L 100.0100, L500.2500 ####[facility] [address] [place], [address] WBC Normal 4.4-11.0 [facility] Comment on above: Result Comment: Canc elled via OM: Order cancelled - Patient discharged Performed By: #### L 100.0100, L500.2500 ####[facility] [address] [place], [address] Basic Metabolic Profile (BMP )on 10-17-2024 BUN/CRE 14.7 RATIO Normal 10-20 [facility] Comment on above: Performed By: #### L 500.2500, L100.0100 ####[facility] [address] [place], [address] Calcium [Mass/Vol] 9.0 mg/dL Normal 7.6-11.0 [facility] Comment on above: Performed By: #### L 500.2500, L100.0100 ####[facility] [address] [place], [address] Chloride [Moles/Vol] 107 mmol/L Normal 98-108 [facility] Comment on above: Performed By: #### L 500.2500, L100.0100 ####[facility] [address] [place], [address] CO2 [Moles/Vol] 22.0 mmol/L Normal 21.0-32.0 [facility] Comment on above: Performed By: #### L 500.2500, L100.0100 ####[facility] [address] [place], [address] Creatinine [Mass/Vol] 0.82 mg/dL Normal 0.70-1.20 [facility] Comment on above: Performed By: #### L 500.2500, L100.0100 ####[facility] [address] [place], [address] ECRCL 66.67 ml/min Normal 50-250 [facility] Comment on above: Performed By: #### L 500.2500, L100.0100 ####[facility] [address] [place], [address] GAP 11 Normal 5-15 [facility] Comment on above: Performed By: #### L 500.2500, L100.0100 ####[facility] [address] [place], [address] GFR/1.73 sq M.predicted among non-blacks MDRD (S/P/Bld) [Vol rate/Area] 73 mL/min/{1.73_m2} Normal >60 [facility] Comment on above: Result Comment: mL/m in/1.73m2 CKD-EPI Creatinine Equation (2020) Performed By: #### L 500.2500, L100.0100 ####[facility] [address] [place], [address] Glucose [Mass/Vol] 159 mg/dL High 70-99 [facility] Comment on above: Performed By: #### L 500.2500, L100.0100 ####[facility] [address] [place], [address] Potassium [Moles/Vol] 3.8 mmol/L Normal 3.3-5.1 [facility] Comment on above: Performed By: #### L 500.2500, L100.0100 ####[facility] [address] [place], [address] Sodium [Moles/Vol] 141 mmol/L Normal 133-145 [facility] Comment on above: Performed By: #### L 500.2500, L100.0100 ####[facility] [address] [place], [address] Urea nitrogen [Mass/Vol] 12 mg/dL Normal 4-19 [facility] Comment on above: Performed By: #### L 500.2500, L100.0100 ####[facility] [address] [place], [address] Bedside Glucoseon 10-17-2024 FINGERSTICK GLU 209 mg/dL High 74-106 [facility] Comment on above: Result Comment: GILDA GEMENT OF PATIENT CARE PER NURSING PROTOCOL Performed By: #### L 501.080 ####[facility] [address] [place], [address] FINGERSTICK GLU 157 mg/dL High 74-106 [facility] Comment on above: Result Comment: GILDA GEMENT OF PATIENT CARE PER NURSING PROTOCOL Performed By: #### L 501.080 ####[facility] [address] [place], [address] CBC W/Diff, Automatedon 03-0 -2024 Absolute Lymph 2.05 X10 3/uL Normal 0.83-4.51 [facility] Comment on above: Performed By: #### L 500.2500, L100.0100 ####[facility] [address] [place], [address] Absolute Neut 4.0 X10 3/uL Normal 2.0-7.7 [facility] Comment on above: Performed By: #### L 500.2500, L100.0100 ####[facility] [address] [place], [address] Basophils/100 WBC (Bld) 0.4 % Normal 0-1 [facility] Comment on above: Performed By: #### L 500.2500, L100.0100 ####[facility] [address] [place], [address] Eosinophils/100 WBC (Bld) 5.0 % Normal 0-5 [facility] Comment on above: Performed By: #### L 500.2500, L100.0100 ####[facility] [address] [place], [address] Erythrocyte distribution width (RBC) [Ratio] 15.0 % High 11.6-14.6 [facility] Comment on above: Performed By: #### L 500.2500, L100.0100 ####[facility] [address] [place], [address] Hematocrit (Bld) [Volume fraction] 37.2 % Normal 37-47 [facility] Comment on above: Performed By: #### L 500.2500, L100.0100 ####[facility] [address] [place], [address] Hemoglobin (Bld) [Mass/Vol] 12.2 g/dL Normal 12.0-15.0 [facility] Comment on above: Performed By: #### L 500.2500, L100.0100 ####[facility] [address] [place], [address] IG% 0.300 Normal 0.0-0.9 [facility] Comment on above: Result Comment: IG% - Immature Granulocytes (promyelocytes, myelocytes andmetamyelocytes) > 1% indicates that a LEFT SHIFT is Present. Performed By: #### L 500.2500, L100.0100 ####[facility] [address] [place], [address] Lymphocytes/100 WBC (Bld) 29.4 % Normal 19-41 [facility] Comment on above: Performed By: #### L 500.2500, L100.0100 ####[facility] [address] [place], [address] MCH (RBC) [Entitic mass] 27.5 pg Normal 27.0-32.0 [facility] Comment on above: Performed By: #### L 500.2500, L100.0100 ####[facility] [address] [place], [address] MCHC (RBC) [Mass/Vol] 32.8 g/dL Normal 32-36 [facility] Comment on above: Performed By: #### L 500.2500, L100.0100 ####[facility] [address] [place], [address] MCV (RBC) [Entitic vol] 84.0 fL Normal 81-99 [facility] Comment on above: Performed By: #### L 500.2500, L100.0100 ####[facility] [address] [place], [address] Monocytes/100 WBC (Bld) 7.9 % Normal 0-10 [facility] Comment on above: Performed By: #### L 500.2500, L100.0100 ####[facility] [address] [place], [address] Neutrophils/100 WBC (Bld) 57.0 % Normal 47-70 [facility] Comment on above: Performed By: #### L 500.2500, L100.0100 ####[facility] [address] [place], [address] Nucleated RBC (Bld) [#/Vol] 0 10*3/uL Normal 0-5 [facility] Comment on above: Performed By: #### L 500.2500, L100.0100 ####[facility] [address] [place], [address] Platelet mean volume (Bld) [Entitic vol] 9.8 fL Normal 6.2-12.0 [facility] Comment on above: Performed By: #### L 500.2500, L100.0100 ####[facility] [address] [place], [address] Platelets (Bld) [#/Vol] 256 10*3/uL Normal 150-450 [facility] Comment on above: Performed By: #### L 500.2500, L100.0100 ####[facility] [address] [place], [address] RBC (Bld) [#/Vol] 4.43 10*6/uL Normal 4.2-5.4 [facility] Comment on above: Performed By: #### L 500.2500, L100.0100 ####[facility] [address] [place], [address] RDW SD 45.6 fl High 35.1-43.9 [facility] Comment on above: Performed By: #### L 500.2500, L100.0100 ####[facility] [address] [place], [address] WBC (Bld) [#/Vol] 7.0 10*3/uL Normal 4.4-11.0 [facility] Comment on above: Performed By: #### L 500.2500, L100.0100 ####[facility] [address] [place], [address] Discharge Instructionon 030 Discharge Instruction Normal [facility] Basic Metabolic Profile (BMP )on 10-16-2024 BUN/CRE 12.4 RATIO Normal 10-20 [facility] Comment on above: Performed By: #### L 100.0100, L500.2500 ####[facility] [address] [place], [address] Calcium [Mass/Vol] 8.7 mg/dL Normal 7.6-11.0 [facility] Comment on above: Performed By: #### L 100.0100, L500.2500 ####[facility] [address] [place], [address] Chloride [Moles/Vol] 108 mmol/L Normal 98-108 [facility] Comment on above: Performed By: #### L 100.0100, L500.2500 ####[facility] [address] [place], [address] CO2 [Moles/Vol] 23.0 mmol/L Normal 21.0-32.0 [facility] Comment on above: Performed By: #### L 100.0100, L500.2500 ####[facility] [address] [place], [address] Creatinine [Mass/Vol] 0.79 mg/dL Normal 0.70-1.20 [facility] Comment on above: Performed By: #### L 100.0100, L500.2500 ####[facility] [address] [place], [address] ECRCL 68.34 ml/min Normal 50-250 [facility] Comment on above: Performed By: #### L 100.0100, L500.2500 ####[facility] [address] [place], [address] GAP 9 Normal 5-15 [facility] Comment on above: Performed By: #### L 100.0100, L500.2500 ####[facility] [address] [place], [address] GFR/1.73 sq M.predicted among non-blacks MDRD (S/P/Bld) [Vol rate/Area] 76 mL/min/{1.73_m2} Normal >60 [facility] Comment on above: Result Comment: mL/m in/1.73m2 CKD-EPI Creatinine Equation (2020) Performed By: #### L 100.0100, L500.2500 ####[facility] [address] [place], [address] Glucose [Mass/Vol] 170 mg/dL High 70-99 [facility] Comment on above: Performed By: #### L 100.0100, L500.2500 ####[facility] [address] [place], [address] Potassium [Moles/Vol] 3.9 mmol/L Normal 3.3-5.1 [facility] Comment on above: Performed By: #### L 100.0100, L500.2500 ####[facility] [address] [place], [address] Sodium [Moles/Vol] 140 mmol/L Normal 133-145 [facility] Comment on above: Performed By: #### L 100.0100, L500.2500 ####[facility] [address] [place], [address] Urea nitrogen [Mass/Vol] 10 mg/dL Normal 4-19 [facility] Comment on above: Performed By: #### L 100.0100, L500.2500 ####[facility] [address] [place], [address] Bedside Glucoseon 10-16-2024 FINGERSTICK GLU 166 mg/dL High 74-106 [facility] Comment on above: Result Comment: GILDA GEMENT OF PATIENT CARE PER NURSING PROTOCOL Performed By: #### L 501.080 ####[facility] [address] [place], [address] FINGERSTICK GLU 263 mg/dL High 74-106 [facility] Comment on above: Result Comment: GILDA GEMENT OF PATIENT CARE PER NURSING PROTOCOL Performed By: #### L 501.080 ####[facility] [address] [place], [address] FINGERSTICK GLU 257 mg/dL High 74-106 [facility] Comment on above: Result Comment: GILDA GEMENT OF PATIENT CARE PER NURSING PROTOCOL Performed By: #### L 501.080 ####[facility] [address] [place], [address] CBC W/Diff, Automatedon 03-0 Absolute Lymph 1.73 X10 3/uL Normal 0.83-4.51 [facility] Comment on above: Performed By: #### L 100.0100, L500.2500 ####[facility] [address] [place], [address] Absolute Neut 3.8 X10 3/uL Normal 2.0-7.7 [facility] Comment on above: Performed By: #### L 100.0100, L500.2500 ####[facility] [address] [place], [address] Basophils/100 WBC (Bld) 0.5 % Normal 0-1 [facility] Comment on above: Performed By: #### L 100.0100, L500.2500 ####[facility] [address] [place], [address] Eosinophils/100 WBC (Bld) 6.4 % High 0-5 [facility] Comment on above: Performed By: #### L 100.0100, L500.2500 ####[facility] [address] [place], [address] Erythrocyte distribution width (RBC) [Ratio] 14.9 % High 11.6-14.6 [facility] Comment on above: Performed By: #### L 100.0100, L500.2500 ####[facility] [address] [place], [address] Hematocrit (Bld) [Volume fraction] 35.4 % Low 37-47 [facility] Comment on above: Performed By: #### L 100.0100, L500.2500 ####[facility] [address] [place], [address] Hemoglobin (Bld) [Mass/Vol] 11.5 g/dL Low 12.0-15.0 [facility] Comment on above: Performed By: #### L 100.0100, L500.2500 ####[facility] [address] [place], [address] IG% 0.500 Normal 0.0-0.9 [facility] Comment on above: Result Comment: IG% - Immature Granulocytes (promyelocytes, myelocytes andmetamyelocytes) > 1% indicates that a LEFT SHIFT is Present. Performed By: #### L 100.0100, L500.2500 ####[facility] [address] [place], [address] Lymphocytes/100 WBC (Bld) 26.5 % Normal 19-41 [facility] Comment on above: Performed By: #### L 100.0100, L500.2500 ####[facility] [address] [place], [address] MCH (RBC) [Entitic mass] 27.4 pg Normal 27.0-32.0 [facility] Comment on above: Performed By: #### L 100.0100, L500.2500 ####[facility] [address] [place], [address] MCHC (RBC) [Mass/Vol] 32.5 g/dL Normal 32-36 [facility] Comment on above: Performed By: #### L 100.0100, L500.2500 ####[facility] [address] [place], [address] MCV (RBC) [Entitic vol] 84.3 fL Normal 81-99 [facility] Comment on above: Performed By: #### L 100.0100, L500.2500 ####[facility] [address] [place], [address] Monocytes/100 WBC (Bld) 8.0 % Normal 0-10 [facility] Comment on above: Performed By: #### L 100.0100, L500.2500 ####[facility] [address] [place], [address] Neutrophils/100 WBC (Bld) 58.1 % Normal 47-70 [facility] Comment on above: Performed By: #### L 100.0100, L500.2500 ####[facility] [address] [place], [address] Nucleated RBC (Bld) [#/Vol] 0 10*3/uL Normal 0-5 [facility] Comment on above: Performed By: #### L 100.0100, L500.2500 ####[facility] [address] [place], [address] Platelet mean volume (Bld) [Entitic vol] 10.1 fL Normal 6.2-12.0 [facility] Comment on above: Performed By: #### L 100.0100, L500.2500 ####[facility] [address] [place], [address] Platelets (Bld) [#/Vol] 249 10*3/uL Normal 150-450 [facility] Comment on above: Performed By: #### L 100.0100, L500.2500 ####[facility] [address] [place], [address] RBC (Bld) [#/Vol] 4.20 10*6/uL Normal 4.2-5.4 [facility] Comment on above: Performed By: #### L 100.0100, L500.2500 ####[facility] [address] [place], [address] RDW SD 45.5 fl High 35.1-43.9 [facility] Comment on above: Performed By: #### L 100.0100, L500.2500 ####[facility] [address] [place], [address] WBC (Bld) [#/Vol] 6.5 10*3/uL Normal 4.4-11.0 [facility] Comment on above: Performed By: #### L 100.0100, L500.2500 ####[facility] [address] [place], [address] Basic Metabolic Profile (BMP )on 10-15-2024 BUN/CRE 16.8 RATIO Normal 10-20 [facility] Comment on above: Performed By: #### L 100.0100, L500.2500 ####[facility] [address] [place], [address] Calcium [Mass/Vol] 8.7 mg/dL Normal 7.6-11.0 [facility] Comment on above: Performed By: #### L 100.0100, L500.2500 ####[facility] [address] [place], [address] Chloride [Moles/Vol] 108 mmol/L Normal 98-108 [facility] Comment on above: Performed By: #### L 100.0100, L500.2500 ####[facility] [address] [place], [address] CO2 [Moles/Vol] 22.0 mmol/L Normal 21.0-32.0 [facility] Comment on above: Performed By: #### L 100.0100, L500.2500 ####[facility] [address] [place], [address] Creatinine [Mass/Vol] 0.82 mg/dL Normal 0.70-1.20 [facility] Comment on above: Performed By: #### L 100.0100, L500.2500 ####[facility] [address] [place], [address] ECRCL 66.67 ml/min Normal 50-250 [facility] Comment on above: Performed By: #### L 100.0100, L500.2500 ####[facility] [address] [place], [address] GAP 10 Normal 5-15 [facility] Comment on above: Performed By: #### L 100.0100, L500.2500 ####[facility] [address] [place], [address] GFR/1.73 sq M.predicted among non-blacks MDRD (S/P/Bld) [Vol rate/Area] 73 mL/min/{1.73_m2} Normal >60 [facility] Comment on above: Result Comment: mL/m in/1.73m2 CKD-EPI Creatinine Equation (2020) Performed By: #### L 100.0100, L500.2500 ####[facility] [address] [place], [address] Glucose [Mass/Vol] 151 mg/dL High 70-99 [facility] Comment on above: Performed By: #### L 100.0100, L500.2500 ####[facility] [address] [place], [address] Potassium [Moles/Vol] 4.1 mmol/L Normal 3.3-5.1 [facility] Comment on above: Performed By: #### L 100.0100, L500.2500 ####[facility] [address] [place], [address] Sodium [Moles/Vol] 140 mmol/L Normal 133-145 [facility] Comment on above: Performed By: #### L 100.0100, L500.2500 ####[facility] [address] [place], [address] Urea nitrogen [Mass/Vol] 14 mg/dL Normal 4-19 [facility] Comment on above: Performed By: #### L 100.0100, L500.2500 ####[facility] [address] [place], [address] CBC W/Diff, Automatedon 03-0 5-2024 Absolute Lymph 2.26 X10 3/uL Normal 0.83-4.51 [facility] Comment on above: Performed By: #### L 100.0100, L500.2500 ####[facility] [address] [place], [address] Absolute Neut 3.8 X10 3/uL Normal 2.0-7.7 [facility] Comment on above: Performed By: #### L 100.0100, L500.2500 ####[facility] [address] [place], [address] Basophils/100 WBC (Bld) 0.4 % Normal 0-1 [facility] Comment on above: Performed By: #### L 100.0100, L500.2500 ####[facility] [address] [place], [address] Eosinophils/100 WBC (Bld) 6.5 % High 0-5 [facility] Comment on above: Performed By: #### L 100.0100, L500.2500 ####[facility] [address] [place], [address] Erythrocyte distribution width (RBC) [Ratio] 15.0 % High 11.6-14.6 [facility] Comment on above: Performed By: #### L 100.0100, L500.2500 ####[facility] [address] [place], [address] Hematocrit (Bld) [Volume fraction] 34.8 % Low 37-47 [facility] Comment on above: Performed By: #### L 100.0100, L500.2500 ####[facility] [address] [place], [address] Hemoglobin (Bld) [Mass/Vol] 11.5 g/dL Low 12.0-15.0 [facility] Comment on above: Performed By: #### L 100.0100, L500.2500 ####[facility] [address] [place], [address] IG% 0.300 Normal 0.0-0.9 [facility] Comment on above: Result Comment: IG% - Immature Granulocytes (promyelocytes, myelocytes andmetamyelocytes) > 1% indicates that a LEFT SHIFT is Present. Performed By: #### L 100.0100, L500.2500 ####[facility] [address] [place], [address] Lymphocytes/100 WBC (Bld) 31.8 % Normal 19-41 [facility] Comment on above: Performed By: #### L 100.0100, L500.2500 ####[facility] [address] [place], [address] MCH (RBC) [Entitic mass] 27.8 pg Normal 27.0-32.0 [facility] Comment on above: Performed By: #### L 100.0100, L500.2500 ####[facility] [address] [place], [address] MCHC (RBC) [Mass/Vol] 33.0 g/dL Normal 32-36 [facility] Comment on above: Performed By: #### L 100.0100, L500.2500 ####[facility] [address] [place], [address] MCV (RBC) [Entitic vol] 84.1 fL Normal 81-99 [facility] Comment on above: Performed By: #### L 100.0100, L500.2500 ####[facility] [address] [place], [address] Monocytes/100 WBC (Bld) 7.6 % Normal 0-10 [facility] Comment on above: Performed By: #### L 100.0100, L500.2500 ####[facility] [address] [place], [address] Neutrophils/100 WBC (Bld) 53.4 % Normal 47-70 [facility] Comment on above: Performed By: #### L 100.0100, L500.2500 ####[facility] [address] [place], [address] Nucleated RBC (Bld) [#/Vol] 0 10*3/uL Normal 0-5 [facility] Comment on above: Performed By: #### L 100.0100, L500.2500 ####[facility] [address] [place], [address] Platelet mean volume (Bld) [Entitic vol] 10.0 fL Normal 6.2-12.0 [facility] Comment on above: Performed By: #### L 100.0100, L500.2500 ####[facility] [address] [place], [address] Platelets (Bld) [#/Vol] 236 10*3/uL Normal 150-450 [facility] Comment on above: Performed By: #### L 100.0100, L500.2500 ####[facility] [address] [place], [address] RBC (Bld) [#/Vol] 4.14 10*6/uL Low 4.2-5.4 [facility] Comment on above: Performed By: #### L 100.0100, L500.2500 ####[facility] [address] [place], [address] RDW SD 46.0 fl High 35.1-43.9 [facility] Comment on above: Performed By: #### L 100.0100, L500.2500 ####[facility] [address] [place], [address] WBC (Bld) [#/Vol] 7.1 10*3/uL Normal 4.4-11.0 [facility] Comment on above: Performed By: #### L 100.0100, L500.2500 ####[facility] [address] [place], [address] Basic Metabolic Profile (BMP )on 10-14-2024 BUN/CRE 19.6 RATIO Normal 10-20 [facility] Comment on above: Performed By: #### L 100.0100, L500.2500 ####[facility] [address] [place], [address] Calcium [Mass/Vol] 8.9 mg/dL Normal 7.6-11.0 [facility] Comment on above: Performed By: #### L 100.0100, L500.2500 ####[facility] [address] [place], [address] Chloride [Moles/Vol] 108 mmol/L Normal 98-108 [facility] Comment on above: Performed By: #### L 100.0100, L500.2500 ####[facility] [address] [place], [address] CO2 [Moles/Vol] 24.0 mmol/L Normal 21.0-32.0 [facility] Comment on above: Performed By: #### L 100.0100, L500.2500 ####[facility] [address] [place], [address] Creatinine [Mass/Vol] 0.84 mg/dL Normal 0.70-1.20 [facility] Comment on above: Performed By: #### L 100.0100, L500.2500 ####[facility] [address] [place], [address] ECRCL 65.09 ml/min Normal 50-250 [facility] Comment on above: Performed By: #### L 100.0100, L500.2500 ####[facility] [address] [place], [address] GAP 10 Normal 5-15 [facility] Comment on above: Performed By: #### L 100.0100, L500.2500 ####[facility] [address] [place], [address] GFR/1.73 sq M.predicted among non-blacks MDRD (S/P/Bld) [Vol rate/Area] 71 mL/min/{1.73_m2} Normal >60 [facility] Comment on above: Result Comment: mL/m in/1.73m2 CKD-EPI Creatinine Equation (2020) Performed By: #### L 100.0100, L500.2500 ####[facility] [address] [place], [address] Glucose [Mass/Vol] 119 mg/dL High 70-99 [facility] Comment on above: Performed By: #### L 100.0100, L500.2500 ####[facility] [address] [place], [address] Potassium [Moles/Vol] 4.1 mmol/L Normal 3.3-5.1 [facility] Comment on above: Performed By: #### L 100.0100, L500.2500 ####[facility] [address] [place], [address] Sodium [Moles/Vol] 142 mmol/L Normal 133-145 [facility] Comment on above: Performed By: #### L 100.0100, L500.2500 ####[facility] [address] [place], [address] Urea nitrogen [Mass/Vol] 17 mg/dL Normal 4-19 [facility] Comment on above: Performed By: #### L 100.0100, L500.2500 ####[facility] [address] [place], [address] CBC W/Diff, Automatedon 03-0 -2024 Absolute Lymph 2.38 X10 3/uL Normal 0.83-4.51 [facility] Comment on above: Performed By: #### L 100.0100, L500.2500 ####[facility] [address] [place], [address] Absolute Neut 3.5 X10 3/uL Normal 2.0-7.7 [facility] Comment on above: Performed By: #### L 100.0100, L500.2500 ####[facility] [address] [place], [address] Basophils/100 WBC (Bld) 0.6 % Normal 0-1 [facility] Comment on above: Performed By: #### L 100.0100, L500.2500 ####[facility] [address] [place], [address] Eosinophils/100 WBC (Bld) 4.4 % Normal 0-5 [facility] Comment on above: Performed By: #### L 100.0100, L500.2500 ####[facility] [address] [place], [address] Erythrocyte distribution width (RBC) [Ratio] 15.1 % High 11.6-14.6 [facility] Comment on above: Performed By: #### L 100.0100, L500.2500 ####[facility] [address] [place], [address] Hematocrit (Bld) [Volume fraction] 32.6 % Low 37-47 [facility] Comment on above: Performed By: #### L 100.0100, L500.2500 ####[facility] [address] [place], [address] Hemoglobin (Bld) [Mass/Vol] 10.8 g/dL Low 12.0-15.0 [facility] Comment on above: Performed By: #### L 100.0100, L500.2500 ####[facility] [address] [place], [address] IG% 0.300 Normal 0.0-0.9 [facility] Comment on above: Result Comment: IG% - Immature Granulocytes (promyelocytes, myelocytes andmetamyelocytes) > 1% indicates that a LEFT SHIFT is Present. Performed By: #### L 100.0100, L500.2500 ####[facility] [address] [place], [address] Lymphocytes/100 WBC (Bld) 35.2 % Normal 19-41 [facility] Comment on above: Performed By: #### L 100.0100, L500.2500 ####[facility] [address] [place], [address] MCH (RBC) [Entitic mass] 28.0 pg Normal 27.0-32.0 [facility] Comment on above: Performed By: #### L 100.0100, L500.2500 ####[facility] [address] [place], [address] MCHC (RBC) [Mass/Vol] 33.1 g/dL Normal 32-36 [facility] Comment on above: Performed By: #### L 100.0100, L500.2500 ####[facility] [address] [place], [address] MCV (RBC) [Entitic vol] 84.5 fL Normal 81-99 [facility] Comment on above: Performed By: #### L 100.0100, L500.2500 ####[facility] [address] [place], [address] Monocytes/100 WBC (Bld) 7.5 % Normal 0-10 [facility] Comment on above: Performed By: #### L 100.0100, L500.2500 ####[facility] [address] [place], [address] Neutrophils/100 WBC (Bld) 52.0 % Normal 47-70 [facility] Comment on above: Performed By: #### L 100.0100, L500.2500 ####[facility] [address] [place], [address] Nucleated RBC (Bld) [#/Vol] 0 10*3/uL Normal 0-5 [facility] Comment on above: Performed By: #### L 100.0100, L500.2500 ####[facility] [address] [place], [address] Platelet mean volume (Bld) [Entitic vol] 10.2 fL Normal 6.2-12.0 [facility] Comment on above: Performed By: #### L 100.0100, L500.2500 ####[facility] [address] [place], [address] Platelets (Bld) [#/Vol] 238 10*3/uL Normal 150-450 [facility] Comment on above: Performed By: #### L 100.0100, L500.2500 ####[facility] [address] [place], [address] RBC (Bld) [#/Vol] 3.86 10*6/uL Low 4.2-5.4 [facility] Comment on above: Performed By: #### L 100.0100, L500.2500 ####[facility] [address] [place], [address] RDW SD 46.1 fl High 35.1-43.9 [facility] Comment on above: Performed By: #### L 100.0100, L500.2500 ####[facility] [address] [place], [address] WBC (Bld) [#/Vol] 6.8 10*3/uL Normal 4.4-11.0 [facility] Comment on above: Performed By: #### L 100.0100, L500.2500 ####[facility] [address] [place], [address] 12 Lead EKGon 10-13-2024 12 Lead EKG Normal [facility] Basic Metabolic Profile (BMP )on 10-13-2024 Calcium [Mass/Vol] 9.7 mg/dL Normal 7.6-11.0 [facility] Comment on above: Performed By: #### L 500.2500, L300.4310, L300.3900, L100.0100 ####[facility] [address] [place], [address] Chloride [Moles/Vol] 97 mmol/L Low 98-108 [facility] Comment on above: Performed By: #### L 500.2500, L300.4310, L300.3900, L100.0100 ####[facility] [address] [place], [address] CO2 [Moles/Vol] 19.2 mmol/L Low 21.0-32.0 [facility] Comment on above: Performed By: #### L 500.2500, L300.4310, L300.3900, L100.0100 ####[facility] [address] [place], [address] GAP 16 High 5-15 [facility] Comment on above: Performed By: #### L 500.2500, L300.4310, L300.3900, L100.0100 ####[facility] [address] [place], [address] Potassium [Moles/Vol] 5.0 mmol/L Normal 3.3-5.1 [facility] Comment on above: Performed By: #### L 500.2500, L300.4310, L300.3900, L100.0100 ####[facility] [address] [place], [address] Sodium [Moles/Vol] 132 mmol/L Low 133-145 [facility] Comment on above: Performed By: #### L 500.2500, L300.4310, L300.3900, L100.0100 ####[facility] [address] [place], [address] CBC W/Diff, Automatedon 03-0 3-2024 Absolute Lymph 1.39 X10 3/uL Normal 0.83-4.51 [facility] Comment on above: Performed By: #### L 500.2500, L300.4310, L300.3900, L100.0100 ####[facility] [address] [place], [address] Absolute Neut 8.2 X10 3/uL High 2.0-7.7 [facility] Comment on above: Performed By: #### L 500.2500, L300.4310, L300.3900, L100.0100 ####[facility] [address] [place], [address] Basophils/100 WBC (Bld) 0.2 % Normal 0-1 [facility] Comment on above: Performed By: #### L 500.2500, L300.4310, L300.3900, L100.0100 ####[facility] [address] [facility] [address] Eosinophils/100 WBC (Bld) 1.0 % Normal 0-5 [facility] Comment on above: Performed By: #### L 500.2500, L300.4310, L300.3900, L100.0100 ####[facility] [address] [place], [address] Erythrocyte distribution width (RBC) [Ratio] 14.7 % High 11.6-14.6 [facility] Comment on above: Performed By: #### L 500.2500, L300.4310, L300.3900, L100.0100 ####[facility] [address] [place], [address] Hematocrit (Bld) [Volume fraction] 37.4 % Normal 37-47 [facility] Comment on above: Performed By: #### L 500.2500, L300.4310, L300.3900, L100.0100 ####[facility] [address] [place], [address] Hemoglobin (Bld) [Mass/Vol] 11.9 g/dL Low 12.0-15.0 [facility] Comment on above: Performed By: #### L 500.2500, L300.4310, L300.3900, L100.0100 ####[facility] [address] [place], [address] IG% 0.500 Normal 0.0-0.9 [facility] Comment on above: Result Comment: IG% - Immature Granulocytes (promyelocytes, myelocytes andmetamyelocytes) > 1% indicates that a LEFT SHIFT is Present. Performed By: #### L 500.2500, L300.4310, L300.3900, L100.0100 ####[facility] [address] [place], [address] Lymphocytes/100 WBC (Bld) 13.7 % Low 19-41 [facility] Comment on above: Performed By: #### L 500.2500, L300.4310, L300.3900, L100.0100 ####[facility] [address] [place], [address] MCH (RBC) [Entitic mass] 27.1 pg Normal 27.0-32.0 [facility] Comment on above: Performed By: #### L 500.2500, L300.4310, L300.3900, L100.0100 ####[facility] [address] [place], [address] MCHC (RBC) [Mass/Vol] 31.8 g/dL Low 32-36 [facility] Comment on above: Performed By: #### L 500.2500, L300.4310, L300.3900, L100.0100 ####[facility] [address] [place], [address] MCV (RBC) [Entitic vol] 85.2 fL Normal 81-99 [facility] Comment on above: Performed By: #### L 500.2500, L300.4310, L300.3900, L100.0100 ####[facility] [address] [place], [address] Monocytes/100 WBC (Bld) 4.5 % Normal 0-10 [facility] Comment on above: Performed By: #### L 500.2500, L300.4310, L300.3900, L100.0100 ####[facility] [address] [place], [address] Neutrophils/100 WBC (Bld) 80.1 % High 47-70 [facility] Comment on above: Performed By: #### L 500.2500, L300.4310, L300.3900, L100.0100 ####[facility] [address] [place], [address] Nucleated RBC (Bld) [#/Vol] 0 10*3/uL Normal 0-5 [facility] Comment on above: Performed By: #### L 500.2500, L300.4310, L300.3900, L100.0100 ####[facility] [address] [place], [address] Platelet mean volume (Bld) [Entitic vol] 10.2 fL Normal 6.2-12.0 [facility] Comment on above: Performed By: #### L 500.2500, L300.4310, L300.3900, L100.0100 ####[facility] [address] [place], [address] Platelets (Bld) [#/Vol] 285 10*3/uL Normal 150-450 [facility] Comment on above: Performed By: #### L 500.2500, L300.4310, L300.3900, L100.0100 ####[facility] [address] [place], [address] RBC (Bld) [#/Vol] 4.39 10*6/uL Normal 4.2-5.4 [facility] Comment on above: Performed By: #### L 500.2500, L300.4310, L300.3900, L100.0100 ####[facility] [address] [place], [address] RDW SD 45.9 fl High 35.1-43.9 [facility] Comment on above: Performed By: #### L 500.2500, L300.4310, L300.3900, L100.0100 ####[facility] [address] [place], [address] WBC (Bld) [#/Vol] 10.2 10*3/uL Normal 4.4-11.0 [facility] Comment on above: Performed By: #### L 500.2500, L300.4310, L300.3900, L100.0100 ####[facility] [address] [place], [address] Emergency Department Summary on 10-13-2024 Emergency Department Summary Normal [facility] Partial Thromboplast Timeon 10-13-2024 aPTT Coag (Bld) [Time] 23.3 s Low 24.1-36.2 [facility] Comment on above: Performed By: #### L 500.2500, L300.4310, L300.3900, L100.0100 ####[facility] [address] [place], [address] Prothrombin Time w/INRon INR Coag (PPP) [Relative time] 1.0 {INR} Normal [facility] Comment on above: Performed By: #### L 500.2500, L300.4310, L300.3900, L100.0100 ####[facility] [address] [place], [address] PT Coag (PPP) [Time] 13.4 s Normal 11.7-14.9 [facility] Comment on above: Performed By: #### L 500.2500, L300.4310, L300.3900, L100.0100 ####[facility] [address] [place], [address] Urine Cultureon 10-10-2024 URC Normal [facility] Comment on above: Performed By: #### M 100.2200 ####[facility] [address] [place], [address] L/S Spine Min 4 Viewson 09-14 L/S Spine Min 4 Views Normal [facility] MR/BMS.BPon 09-05-2024 MR/BMS.BP Normal [facility] SCRN MAMM (CAD)W/MANPREET BILATo n 09-04-2024 SCRN MAMM (CAD)W/MANPREET BILAT Normal [facility] Urine Cultureon 09-04-2024 URC Normal [facility] Comment on above: Performed By: #### M 100.2200 ####[facility] [address] [place], [address] MR/BMS.BPon 06-11-2024 MR/BMS.BP Normal [facility] Re-Evaluation - PT (1)on Re-Evaluation - PT (1) Normal [facility] Neurology Visit Reporton Neurology Visit Report Normal [facility] CBC W/Diff, Automatedon Absolute Lymph 1.97 X10 3/uL Normal 0.83-4.51 [facility] Comment on above: Performed By: #### L 100.0100, L500.4050, L506.1000, L501.9520 ####[facility] [address] [place], [address] Absolute Neut 4.7 X10 3/uL Normal 2.0-7.7 [facility] Comment on above: Performed By: #### L 100.0100, L500.4050, L506.1000, L501.9520 ####[facility] [address] [place], [address] Basophils/100 WBC (Bld) 0.4 % Normal 0-1 [facility] Comment on above: Performed By: #### L 100.0100, L500.4050, L506.1000, L501.9520 ####[facility] [address] [place], [address] Eosinophils/100 WBC (Bld) 4.4 % Normal 0-5 [facility] Comment on above: Performed By: #### L 100.0100, L500.4050, L506.1000, L501.9520 ####[facility] [address] [place], [address] Erythrocyte distribution width (RBC) [Ratio] 14.7 % High 11.6-14.6 [facility] Comment on above: Performed By: #### L 100.0100, L500.4050, L506.1000, L501.9520 ####[facility] [address] [place], [address] Hematocrit (Bld) [Volume fraction] 42.0 % Normal 37-47 [facility] Comment on above: Performed By: #### L 100.0100, L500.4050, L506.1000, L501.9520 ####[facility] [address] [place], [address] Hemoglobin (Bld) [Mass/Vol] 13.4 g/dL Normal 12.0-15.0 [facility] Comment on above: Performed By: #### L 100.0100, L500.4050, L506.1000, L501.9520 ####[facility] [address] [place], [address] IG% 0.400 Normal 0.0-0.9 [facility] Comment on above: Result Comment: IG% - Immature Granulocytes (promyelocytes, myelocytes andmetamyelocytes) > 1% indicates that a LEFT SHIFT is Present. Performed By: #### L 100.0100, L500.4050, L506.1000, L501.9520 ####[facility] [address] [place], [address] Lymphocytes/100 WBC (Bld) 26.3 % Normal 19-41 [facility] Comment on above: Performed By: #### L 100.0100, L500.4050, L506.1000, L501.9520 ####[facility] [address] [place], [address] MCH (RBC) [Entitic mass] 27.0 pg Normal 27.0-32.0 [facility] Comment on above: Performed By: #### L 100.0100, L500.4050, L506.1000, L501.9520 ####[facility] [address] [place], [address] MCHC (RBC) [Mass/Vol] 31.9 g/dL Low 32-36 [facility] Comment on above: Performed By: #### L 100.0100, L500.4050, L506.1000, L501.9520 ####[facility] [address] [place], [address] MCV (RBC) [Entitic vol] 84.7 fL Normal 81-99 [facility] Comment on above: Performed By: #### L 100.0100, L500.4050, L506.1000, L501.9520 ####[facility] [address] [place], [address] Monocytes/100 WBC (Bld) 6.1 % Normal 0-10 [facility] Comment on above: Performed By: #### L 100.0100, L500.4050, L506.1000, L501.9520 ####[facility] [address] [place], [address] Neutrophils/100 WBC (Bld) 62.4 % Normal 47-70 [facility] Comment on above: Performed By: #### L 100.0100, L500.4050, L506.1000, L501.9520 ####[facility] [address] [place], [address] Nucleated RBC (Bld) [#/Vol] 0 10*3/uL Normal 0-5 [facility] Comment on above: Performed By: #### L 100.0100, L500.4050, L506.1000, L501.9520 ####[facility] [address] [place], [address] Platelet mean volume (Bld) [Entitic vol] 10.0 fL Normal 6.2-12.0 [facility] Comment on above: Performed By: #### L 100.0100, L500.4050, L506.1000, L501.9520 ####[facility] [address] [place], [address] Platelets (Bld) [#/Vol] 284 10*3/uL Normal 150-450 [facility] Comment on above: Performed By: #### L 100.0100, L500.4050, L506.1000, L501.9520 ####[facility] [address] [place], [address] RBC (Bld) [#/Vol] 4.96 10*6/uL Normal 4.2-5.4 [facility] Comment on above: Performed By: #### L 100.0100, L500.4050, L506.1000, L501.9520 ####[facility] [address] [place], [address] RDW SD 45.0 fl High 35.1-43.9 [facility] Comment on above: Performed By: #### L 100.0100, L500.4050, L506.1000, L501.9520 ####[facility] [address] [place], [address] WBC (Bld) [#/Vol] 7.5 10*3/uL Normal 4.4-11.0 [facility] Comment on above: Performed By: #### L 100.0100, L500.4050, L506.1000, L501.9520 ####[facility] [address] [place], [address] Comprehensive Met[facility] 05-14-2024 Albumin [Mass/Vol] 3.4 g/dL Normal 3.2-5.0 [facility] Comment on above: Performed By: #### L 100.0100, L500.4050, L506.1000, L501.9520 ####[facility] [address] [place], [address] Albumin/Globulin [Mass ratio] 0.9 {ratio} Normal 0.9-2.4 [facility] Comment on above: Performed By: #### L 100.0100, L500.4050, L506.1000, L501.9520 ####[facility] [address] [place], [address] ALK P 66 U/L Normal 45-117 [facility] Comment on above: Performed By: #### L 100.0100, L500.4050, L506.1000, L501.9520 ####[facility] [address] [place], [address] ALT [Catalytic activity/Vol] 26 U/L Normal 13-56 [facility] Comment on above: Performed By: #### L 100.0100, L500.4050, L506.1000, L501.9520 ####[facility] [address] [place], [address] AST [Catalytic activity/Vol] 19 U/L Normal 15-37 [facility] Comment on above: Performed By: #### L 100.0100, L500.4050, L506.1000, L501.9520 ####[facility] [address] [place], [address] Bilirubin [Mass/Vol] 0.50 mg/dL Normal 0.20-1.00 [facility] Comment on above: Result Comment: For patients on eltrombopag therapy, use of Dimension Pep TBIL is not recommended. Performed By: #### L 100.0100, L500.4050, L506.1000, L501.9520 ####[facility] [address] [place], [address] BUN/CRE 13.3 RATIO Normal 10-20 [facility] Comment on above: Performed By: #### L 100.0100, L500.4050, L506.1000, L501.9520 ####[facility] [address] [place], [address] CA,Total 9.6 mg/dL Normal 8.5-10.1 [facility] Comment on above: Performed By: #### L 100.0100, L500.4050, L506.1000, L501.9520 ####[facility] [address] [place], [address] Chloride [Moles/Vol] 106 mmol/L Normal 98-107 [facility] Comment on above: Performed By: #### L 100.0100, L500.4050, L506.1000, L501.9520 ####[facility] [address] [place], [address] CO2 [Moles/Vol] 25.0 mmol/L Normal 21.0-32.0 [facility] Comment on above: Performed By: #### L 100.0100, L500.4050, L506.1000, L501.9520 ####[facility] [address] [place], [address] Creatinine [Mass/Vol] 1.20 mg/dL High 0.55-1.02 [facility] Comment on above: Result Comment: The validity of the calculated GFR GFRAA in patients over70 years has not been determined. Clinical correlation isessential. Performed By: #### L 100.0100, L500.4050, L506.1000, L501.9520 ####[facility] [address] [place], [address] EST GFR - AA 56 mL/min Low >60 [facility] Comment on above: Result Comment: Afri can Russian GFR Calc Performed By: #### L 100.0100, L500.4050, L506.1000, L501.9520 ####[facility] [address] [place], [address] GAP 8 Normal 5-15 [facility] Comment on above: Performed By: #### L 100.0100, L500.4050, L506.1000, L501.9520 ####[facility] [address] [place], [address] GFR/1.73 sq M.predicted among non-blacks MDRD (S/P/Bld) [Vol rate/Area] 46 mL/min/{1.73_m2} Low >60 [facility] Comment on above: Result Comment: Non- GFR Calc Performed By: #### L 100.0100, L500.4050, L506.1000, L501.9520 ####[facility] [address] [place], [address] Globulin (S) [Mass/Vol] 3.7 g/dL Normal 2.2-4.2 [facility] Comment on above: Performed By: #### L 100.0100, L500.4050, L506.1000, L501.9520 ####[facility] [address] [place], [address] Glucose [Mass/Vol] 182 mg/dL High 74-106 [facility] Comment on above: Result Comment: Fast ing Glucose result greater than or equal to 126 mg/dLsuggests DIABETES MELLITUS per A.D.A. criteria. Performed By: #### L 100.0100, L500.4050, L506.1000, L501.9520 ####[facility] [address] [place], [address] Potassium [Moles/Vol] 4.7 mmol/L Normal 3.5-5.1 [facility] Comment on above: Performed By: #### L 100.0100, L500.4050, L506.1000, L501.9520 ####[facility] [address] [place], [address] Sodium [Moles/Vol] 138 mmol/L Normal 136-145 [facility] Comment on above: Performed By: #### L 100.0100, L500.4050, L506.1000, L501.9520 ####[facility] [address] [place], [address] T PROT 7.1 g/dL Normal 6.4-8.2 [facility] Comment on above: Performed By: #### L 100.0100, L500.4050, L506.1000, L501.9520 ####[facility] [address] [place], [address] Urea nitrogen [Mass/Vol] 16 mg/dL Normal 7-18 [facility] Comment on above: Performed By: #### L 100.0100, L500.4050, L506.1000, L501.9520 ####[facility] [address] [place], [address] Thyroid Stim Hormone (TSH)on 05-14-2024 TSH 0.468 uIU/mL Normal 0.358-3.740 [facility] Comment on above: Performed By: #### L 100.0100, L500.4050, L506.1000, L501.9520 ####[facility] [address] [place], [address] Vitamin D,25 Hydroxyon 05-14 Vitamin D 25-OH 56.7 ng/mL Normal [facility] Comment on above: Result Comment: Tawana min D 25(OH) Status Range Deficiency <20 ng/mL (50nmol/L) Insufficiency 20 - 30 ng/mL (50 - 75 nmol/L) Sufficiency 30 - 100 ng/mL (75 - 250 nmol/L) Toxicity >100 ng/mL (>250 nmol/L) Performed By: #### L 100.0100, L500.4050, L506.1000, L501.9520 ####[facility] [address] [place], [address] Re-Evaluation - PT (1)on Re-Evaluation - PT (1) Normal [facility] MR/BMS.BPon 03-26-2024 MR/BMS.BP Normal [facility] Inital Evaluation (1) - PTon 03-12-2024 Inital Evaluation (1) - PT Normal [facility] CNOVon 11-16-2023 CNOV Office Visit (PODIWS ) ARACELY HERNANDEZ ([id number]) 1945 F Date Time Provider Department 11/16/23 [...] GI Upset (more content not included)... Normal [facility] XR FOOT 3V AP/LAT/OBL LTon 0 [...] plantar calcaneal spur. IMPRESSION: No acute abnormality Rug Weaver: GÓMEZ Transcribe Date/Time: Nov 21 2023 10:38A Dictated by : PATRICA WEST MD This examination was interpreted and the report reviewed and electronically signed by: PATRICA WEST MD on Nov 21 2023 10:40AM EST [id number] Normal [facility] Absolute lymphocyte countOrd ered By: Sumit Whipple on 11-07-2023 Lymphocytes Auto (Unsp spec) [#/Vol] 2.51 10*3/uL 0.83-4.51 [facility] Automated lymphocyte count a s percentage of total leukocytesOrdered By: Sumit Whipple on 11-07-2023 Lymphocytes/100 WBC Auto (Unsp spec) 32.1 % 19-41 [facility] Bacteria identified Cx Nom ( Wound)Ordered By: Sumit Whipple on 11-07-2023 Wound Culture Escherichia coli [facility] Wound Culture Enterococcus faecalis [facility] Basophil percentageOrdered B y: Sumit Whipple on 11-07-2023 Basophils/100 WBC (Bld) 0.3 % 0-1 [facility] Bilirubin [Mass/Vol] 0.40 mg/dL 0.20-1.00 [facility] Comment on above: For patients on eltr ombopag therapy, use of Dimension Pep TBIL is not recommended. Chloride [Moles/Vol] 102 mmol/L 98-107 [facility] Eosinophils/100 WBC (Bld) 3.4 % 0-5 [facility] Glucose [Mass/Vol] 187 mg/dL 74-106 [facility] Comment on above: Fasting Glucose resu lt greater than or equal to 126 mg/dL suggests DIABETES MELLITUS per A.D.A. criteria. Hemoglobin (Bld) [Mass/Vol] 13.0 g/dL 12.0-15.0 [facility] Monocytes/100 WBC (Bld) 7.8 % 0-10 [facility] Neutrophils (Bld) [#/Vol] 4.4 10*3/uL 2.0-7.7 [facility] Neutrophils/100 WBC (Bld) 56.1 % 47-70 [facility] Potassium [Moles/Vol] 4.0 mmol/L 3.5-5.1 [facility] Protein [Mass/Vol] 6.6 g/dL 6.4-8.2 [facility] Sodium [Moles/Vol] 135 mmol/L 136-145 [facility] WBC (Bld) [#/Vol] 7.8 10*3/uL 4.4-11.0 [facility] Determination of erythrocyte mean corpuscular volume (MCV)Ordered By: Sumit Whipple on 11-07-2023 MCV (RBC) [Entitic vol] 83.2 fL 81-99 [facility] Erythrocyte distribution wid th ratioOrdered By: Sumit Whipple on 11-07-2023 Erythrocyte distribution width (RBC) [Ratio] 14.3 % 11.6-14.6 [facility] Erythrocyte distribution wid th standard deviationOrdered By: Sumit Whipple on 11-07-2023 Erythrocyte distribution width (RBC) [Entitic vol] 43.2 fL 35.1-43.9 [facility] Gram stain for investigation of transfusion reactionOrdered By: Sumit Whipple on 11-07-2023 Microscopic observation Gram stain Nom (Unsp spec) [facility] Hematocrit Auto (Bld) [Volum e fraction]Ordered By: Sumit Whipple on 11-07-2023 Hematocrit (Bld) [Volume fraction] 40.5 % 37-47 [facility] Immature granulocytes/100 WB C Auto (Bld)Ordered By: Sumit Whipple on 11-07-2023 Immature granulocytes/100 WBC (Bld) 0.300 % 0.0-0.9 [facility] Comment on above: IG% - Immature Granu locytes (promyelocytes, myelocytes and metamyelocytes) > 1% indicates that a LEFT SHIFT is Present. Laboratory - Chemistry and C hemistry - challengeOrdered By: Sumit Whipple on 11-07-2023 Albumin/Globulin [Mass ratio] 0.7 {ratio} 0.9-2.4 [facility] ALP [Catalytic activity/Vol] 76 U/L 45-117 [facility] ALT [Catalytic activity/Vol] 21 U/L 13-56 [facility] CO2 [Moles/Vol] 28.0 mmol/L 21.0-32.0 [facility] Globulin (S) [Mass/Vol] 3.8 g/dL 2.2-4.2 [facility] Urea nitrogen/Creatinine [Mass ratio] 14.6 mg/mg 10-20 [facility] Laboratory - Hematology and Cell countsOrdered By: Sumit Whipple on 11-07-2023 MCH (RBC) [Entitic mass] 26.7 pg 27.0-32.0 [facility] MCHC (RBC) [Mass/Vol] 32.1 g/dL 32-36 [facility] Nucleated RBC/100 WBC (Bld) [Ratio] 0 % 0-5 [facility] Platelet mean volume (Bld) [Entitic vol] 9.9 fL 6.2-12.0 [facility] Platelets (Bld) [#/Vol] 303 10*3/uL 150-450 [facility] No Panel InformationOrdered By: Sumit Whipple on 11-07-2023 Methicillin-Resist S.aureus DNA PCR Negative Negative [facility] Estimated GFR (MDRD) Amer 79 mL/min >60 [facility] Comment on above: GFR Calc Estimated GFR (MDRD) Non-Af Amer 65 mL/min >60 [facility] Comment on above: Non- GFR Calc Vitamin D 25-Hydroxy 57.4 ng/mL [facility] Comment on above: Vitamin D 25(OH) Sta tus Range Deficiency <20 ng/mL (50nmol/L) Insufficiency 20 - 30 ng/mL (50 - 75 nmol/L) Sufficiency 30 - 100 ng/mL (75 - 250 nmol/L) Toxicity >100 ng/mL (>250 nmol/L) RBC Auto (Bld) [#/Vol]Ordere d By: Sumit Whipple on 11-07-2023 RBC (Bld) [#/Vol] 4.87 10*6/uL 4.2-5.4 [facility] Serum or plasma calcium dot urement (mass/volume)Ordered By: Sumit Whipple on 11-07-2023 Calcium [Mass/Vol] 9.1 mg/dL 8.5-10.1 [facility] Serum or plasma creatinine m easurement (mass/volume)Ordered By: Sumit Whipple on 11-07-2023 Creatinine [Mass/Vol] 0.89 mg/dL 0.55-1.02 [facility] Comment on above: The validity of the calculated GFR & GFRAA in patients over 70 years has not been determined. Clinical correlation is essential. Serum or plasma thyroid stim ulating hormone (TSH) measurement (units/volume)Ordered By: Sumit Whipple on 11-07-2023 TSH Qn 7.89 uIU/mL 0.358-3.74 [facility] Serum or plasma urea nitroge n measurement (mass/volume)Ordered By: Sumit Whipple on 11-07-2023 Urea nitrogen [Mass/Vol] 13 mg/dL 7-18 [facility] Staphylococcus aureus DNA de tection by probe and target amplification methodOrdered By: Sumit Whipple on 11-07-2023 S. aureus DNA ZUNILDA+probe Ql (Unsp spec) Negative Negative [facility] Thin prep Papanicolaou smear with manual screeningOrdered By: Sumit Whipple on 11-07-2023 Thin prep Papanicolaou smear with manual screening 2.8 g/dL 3.2-5.0 [facility] Thin prep Papanicolaou smear with manual screening 12 U/L 15-37 [facility] Thin prep Papanicolaou smear with manual screening 5 5-15 [facility] Absolute lymphocyte countOrd ered By: Sumit Whipple on 07-17-2023 Lymphocytes Auto (Unsp spec) [#/Vol] 2.12 10*3/uL 0.83-4.51 [facility] Basophil percentageOrdered B y: Sumit Whipple on 07-17-2023 Basophils/100 WBC (Bld) 0.6 % 0-1 [facility] Bilirubin [Mass/Vol] 0.50 mg/dL 0.20-1.00 [facility] Comment on above: For patients on eltr ombopag therapy, use of Dimension Pep TBIL is not recommended. Chloride [Moles/Vol] 101 mmol/L 98-107 [facility] Eosinophils/100 WBC (Bld) 3.0 % 0-5 [facility] Glucose [Mass/Vol] 136 mg/dL 74-106 [facility] Comment on above: Fasting Glucose resu lt greater than or equal to 126 mg/dL suggests DIABETES MELLITUS per A.D.A. criteria. Neutrophils (Bld) [#/Vol] 3.6 10*3/uL 2.0-7.7 [facility] Neutrophils/100 WBC (Bld) 55.4 % 47-70 [facility] Potassium [Moles/Vol] 4.5 mmol/L 3.5-5.1 [facility] Protein [Mass/Vol] 6.5 g/dL 6.4-8.2 [facility] Sodium [Moles/Vol] 134 mmol/L 136-145 [facility] WBC (Bld) [#/Vol] 6.4 10*3/uL 4.4-11.0 [facility] Blood erythrocytes count (nu mber/volume)Ordered By: Sumit Whipple on 07-17-2023 RBC (Bld) [#/Vol] 4.51 10*6/uL 4.2-5.4 [facility] Blood hemoglobin measurement (mass/volume)Ordered By: Sumit Whipple on 07-17-2023 Hemoglobin (Bld) [Mass/Vol] 12.2 g/dL 12.0-15.0 [facility] Blood lymphocytes/100 leukoc ytesOrdered By: Sumit Whipple on 07-17-2023 Lymphocytes/100 WBC (Bld) 33.1 % 19-41 [facility] Blood monocytes/100 leukocyt esOrdered By: Sumit Whipple on 07-17-2023 Monocytes/100 WBC (Bld) 7.6 % 0-10 [facility] Blood platelet mean volumeOr dered By: Sumit Whipple on 07-17-2023 Platelet mean volume (Bld) [Entitic vol] 9.5 fL 6.2-12.0 [facility] Culture, urineOrdered By: Desmond Whipple on 07-17-2023 Bacteria identified Cx Nom (U) Culture exhibits no growth. [facility] Bacteria identified Cx Nom (U) Culture exhibits no growth. [facility] Determination of erythrocyte mean corpuscular volume (MCV)Ordered By: Sumit Whipple on 07-17-2023 MCV (RBC) [Entitic vol] 85.1 fL 81-99 [facility] Hematocrit Auto (Bld) [Volum e fraction]Ordered By: Sumit Whipple on 07-17-2023 Hematocrit (Bld) [Volume fraction] 38.4 % 37-47 [facility] Laboratory - Chemistry and C hemistry - challengeOrdered By: Sumit Whipple on 07-17-2023 ALP [Catalytic activity/Vol] 55 U/L 45-117 [facility] ALT [Catalytic activity/Vol] 26 U/L 13-56 [facility] CO2 [Moles/Vol] 28.0 mmol/L 21.0-32.0 [facility] Globulin (S) [Mass/Vol] 3.2 g/dL 2.2-4.2 [facility] Urea nitrogen/Creatinine [Mass ratio] 13.2 mg/mg 10-20 [facility] Laboratory - Hematology and Cell countsOrdered By: Sumit Whipple on 07-17-2023 Erythrocyte distribution width (RBC) [Entitic vol] 44.7 fL 35.1-43.9 [facility] Erythrocyte distribution width (RBC) [Ratio] 14.4 % 11.6-14.6 [facility] Immature granulocytes/100 WBC (Bld) 0.300 % 0.0-0.9 [facility] Comment on above: IG% - Immature Granu locytes (promyelocytes, myelocytes and metamyelocytes) > 1% indicates that a LEFT SHIFT is Present. MCH (RBC) [Entitic mass] 27.1 pg 27.0-32.0 [facility] Nucleated RBC/100 WBC (Bld) [Ratio] 0 % 0-5 [facility] MCHC Auto (RBC) [Mass/Vol]Or dered By: Sumit Whipple on 07-17-2023 MCHC (RBC) [Mass/Vol] 31.8 g/dL 32-36 [facility] No Panel InformationOrdered By: Sumit Whipple on 07-17-2023 Estimated GFR (MDRD) Amer 70 mL/min >60 [facility] Comment on above: GFR Calc Estimated GFR (MDRD) Non-Af Amer 58 mL/min >60 [facility] Comment on above: Non- GFR Calc Platelets bldOrdered By: Sumit Whipple on 07-17-2023 Platelets (Bld) [#/Vol] 307 10*3/uL 150-450 [facility] Serum or plasma albumin dot urement (mass/volume)Ordered By: Sumit Whipple on 07-17-2023 Albumin [Mass/Vol] 3.3 g/dL 3.2-5.0 [facility] Serum or plasma albumin/glob ulin mass ratioOrdered By: Sumit Whipple on 07-17-2023 Albumin/Globulin [Mass ratio] 1.0 {ratio} 0.9-2.4 [facility] Serum or plasma calcium dot urement (mass/volume)Ordered By: Sumit Whipple on 07-17-2023 Calcium [Mass/Vol] 8.9 mg/dL 8.5-10.1 [facility] Serum or plasma creatinine m easurement (mass/volume)Ordered By: Sumit Whipple on 07-17-2023 Creatinine [Mass/Vol] 0.99 mg/dL 0.55-1.02 [facility] Comment on above: The validity of the calculated GFR & GFRAA in patients over 70 years has not been determined. Clinical correlation is essential. Serum or plasma urea nitroge n measurement (mass/volume)Ordered By: Sumit Whipple on 07-17-2023 Urea nitrogen [Mass/Vol] 13 mg/dL 7-18 [facility] Thin prep Papanicolaou smear with manual screeningOrdered By: Sumit Whipple on 07-17-2023 Thin prep Papanicolaou smear with manual screening 16 U/L 15-37 [facility] Thin prep Papanicolaou smear with manual screening 5 5-15 [facility] Absolute lymphocyte countOrd ered By: Sumit Whipple on 05-09-2023 Lymphocytes Auto (Unsp spec) [#/Vol] 1.86 10*3/uL 0.83-4.51 [facility] Basophil percentageOrdered B y: Sumit Whipple on 05-09-2023 Basophils/100 WBC (Bld) 0.5 % 0-1 [facility] Bilirubin [Mass/Vol] 0.40 mg/dL 0.20-1.00 [facility] Comment on above: For patients on eltr ombopag therapy, use of Dimension Pep TBIL is not recommended. Chloride [Moles/Vol] 105 mmol/L 98-107 [facility] Eosinophils/100 WBC (Bld) 2.9 % 0-5 [facility] Glucose [Mass/Vol] 113 mg/dL 74-106 [facility] Comment on above: Fasting Glucose resu lt from 100 to 125 mg/dL suggests IMPAIRED HOMEOSTASIS per A.D.A. criteria. Neutrophils (Bld) [#/Vol] 3.4 10*3/uL 2.0-7.7 [facility] Neutrophils/100 WBC (Bld) 57.3 % 47-70 [facility] Potassium [Moles/Vol] 4.5 mmol/L 3.5-5.1 [facility] Protein [Mass/Vol] 6.6 g/dL 6.4-8.2 [facility] Sodium [Moles/Vol] 137 mmol/L 136-145 [facility] WBC (Bld) [#/Vol] 5.9 10*3/uL 4.4-11.0 [facility] Blood erythrocytes count (nu mber/volume)Ordered By: Sumit Whipple on 05-09-2023 RBC (Bld) [#/Vol] 4.27 10*6/uL 4.2-5.4 [facility] Blood hemoglobin measurement (mass/volume)Ordered By: Sumit Whipple on 05-09-2023 Hemoglobin (Bld) [Mass/Vol] 12.0 g/dL 12.0-15.0 [facility] Blood lymphocytes/100 leukoc ytesOrdered By: Sumit Whipple on 05-09-2023 Lymphocytes/100 WBC (Bld) 31.5 % 19-41 [facility] Blood monocytes/100 leukocyt esOrdered By: Sumit Whipple on 05-09-2023 Monocytes/100 WBC (Bld) 7.6 % 0-10 [facility] Blood platelet mean volumeOr dered By: Sumit Whipple on 05-09-2023 Platelet mean volume (Bld) [Entitic vol] 9.5 fL 6.2-12.0 [facility] Determination of erythrocyte mean corpuscular volume (MCV)Ordered By: Sumit Whipple on 05-09-2023 MCV (RBC) [Entitic vol] 84.5 fL 81-99 [facility] Hematocrit Auto (Bld) [Volum e fraction]Ordered By: Sumit Whipple on 05-09-2023 Hematocrit (Bld) [Volume fraction] 36.1 % 37-47 [facility] Laboratory - Chemistry and C hemistry - challengeOrdered By: Sumit Whipple on 05-09-2023 ALP [Catalytic activity/Vol] 51 U/L 45-117 [facility] ALT [Catalytic activity/Vol] 32 U/L 13-56 [facility] CO2 [Moles/Vol] 27.0 mmol/L 21.0-32.0 [facility] Globulin (S) [Mass/Vol] 3.2 g/dL 2.2-4.2 [facility] Urea nitrogen/Creatinine [Mass ratio] 25.5 mg/mg 10-20 [facility] Laboratory - Hematology and Cell countsOrdered By: Sumit Whipple on 05-09-2023 Erythrocyte distribution width (RBC) [Entitic vol] 45.7 fL 35.1-43.9 [facility] Erythrocyte distribution width (RBC) [Ratio] 14.8 % 11.6-14.6 [facility] Immature granulocytes/100 WBC (Bld) 0.200 % 0.0-0.9 [facility] Comment on above: IG% - Immature Granu locytes (promyelocytes, myelocytes and metamyelocytes) > 1% indicates that a LEFT SHIFT is Present. MCH (RBC) [Entitic mass] 28.1 pg 27.0-32.0 [facility] Nucleated RBC/100 WBC (Bld) [Ratio] 0 % 0-5 [facility] MCHC Auto (RBC) [Mass/Vol]Or dered By: Sumit Whipple on 05-09-2023 MCHC (RBC) [Mass/Vol] 33.2 g/dL 32-36 [facility] No Panel InformationOrdered By: Sumit Whipple on 05-09-2023 Estimated GFR (MDRD) Amer 71 mL/min >60 [facility] Comment on above: GFR Calc Estimated GFR (MDRD) Non-Af Amer 58 mL/min >60 [facility] Comment on above: Non- GFR Calc Thyroid Stimulating Hormone (TSH) 3.16 uIU/mL 0.358-3.74 [facility] Vitamin D 25-Hydroxy 56.1 ng/mL [facility] Comment on above: Vitamin D 25(OH) Sta tus Range Deficiency <20 ng/mL (50nmol/L) Insufficiency 20 - 30 ng/mL (50 - 75 nmol/L) Sufficiency 30 - 100 ng/mL (75 - 250 nmol/L) Toxicity >100 ng/mL (>250 nmol/L) Platelets bldOrdered By: Sumit Whipple on 05-09-2023 Platelets (Bld) [#/Vol] 298 10*3/uL 150-450 [facility] Serum or plasma albumin dot urement (mass/volume)Ordered By: Sumit Whipple on 05-09-2023 Albumin [Mass/Vol] 3.4 g/dL 3.2-5.0 [facility] Serum or plasma albumin/glob ulin mass ratioOrdered By: Sumit Whipple on 05-09-2023 Albumin/Globulin [Mass ratio] 1.1 {ratio} 0.9-2.4 [facility] Serum or plasma calcium dot urement (mass/volume)Ordered By: Sumit Whipple on 05-09-2023 Calcium [Mass/Vol] 9.1 mg/dL 8.5-10.1 [facility] Serum or plasma creatinine m easurement (mass/volume)Ordered By: Sumit Whipple on 05-09-2023 Creatinine [Mass/Vol] 0.98 mg/dL 0.55-1.02 [facility] Comment on above: The validity of the calculated GFR & GFRAA in patients over 70 years has not been determined. Clinical correlation is essential. Serum or plasma urea nitroge n measurement (mass/volume)Ordered By: Sumit Whipple on 05-09-2023 Urea nitrogen [Mass/Vol] 25 mg/dL 7-18 [facility] Thin prep Papanicolaou smear with manual screeningOrdered By: Sumit Whipple on 05-09-2023 Thin prep Papanicolaou smear with manual screening 27 U/L 15-37 [facility] Thin prep Papanicolaou smear with manual screening 5 5-15 [facility] Absolute lymphocyte countOrd ered By: Sumit Whipple on 04-18-2023 Lymphocytes Auto (Unsp spec) [#/Vol] 2.57 10*3/uL 0.83-4.51 [facility] Basophil percentageOrdered B y: Sumit Whipple on 04-18-2023 Basophils/100 WBC (Bld) 0.4 % 0-1 [facility] Chloride [Moles/Vol] 103 mmol/L 98-107 [facility] Eosinophils/100 WBC (Bld) 3.5 % 0-5 [facility] Glucose [Mass/Vol] 81 mg/dL 74-106 [facility] Neutrophils (Bld) [#/Vol] 4.0 10*3/uL 2.0-7.7 [facility] Neutrophils/100 WBC (Bld) 53.7 % 47-70 [facility] Potassium [Moles/Vol] 4.6 mmol/L 3.5-5.1 [facility] Sodium [Moles/Vol] 136 mmol/L 136-145 [facility] WBC (Bld) [#/Vol] 7.4 10*3/uL 4.4-11.0 [facility] Blood erythrocytes count (nu mber/volume)Ordered By: Sumit Whipple on 04-18-2023 RBC (Bld) [#/Vol] 4.96 10*6/uL 4.2-5.4 [facility] Blood hemoglobin measurement (mass/volume)Ordered By: Sumit Whipple on 04-18-2023 Hemoglobin (Bld) [Mass/Vol] 13.2 g/dL 12.0-15.0 [facility] Blood lymphocytes/100 leukoc ytesOrdered By: Sumit Whipple on 04-18-2023 Lymphocytes/100 WBC (Bld) 34.6 % 19-41 [facility] Blood monocytes/100 leukocyt esOrdered By: Sumit Whipple on 04-18-2023 Monocytes/100 WBC (Bld) 7.5 % 0-10 [facility] Blood platelet mean volumeOr dered By: Sumit Whipple on 04-18-2023 Platelet mean volume (Bld) [Entitic vol] 10.1 fL 6.2-12.0 [facility] Determination of erythrocyte mean corpuscular volume (MCV)Ordered By: Sumit Whipple on 04-18-2023 MCV (RBC) [Entitic vol] 85.3 fL 81-99 [facility] Hematocrit Auto (Bld) [Volum e fraction]Ordered By: Sumit Whipple on 04-18-2023 Hematocrit (Bld) [Volume fraction] 42.3 % 37-47 [facility] Laboratory - Chemistry and C hemistry - challengeOrdered By: Sumit Whipple on 04-18-2023 CO2 [Moles/Vol] 28.0 mmol/L 21.0-32.0 [facility] Urea nitrogen/Creatinine [Mass ratio] 19.0 mg/mg 10-20 [facility] Laboratory - Hematology and Cell countsOrdered By: Sumit Whipple on 04-18-2023 Erythrocyte distribution width (RBC) [Entitic vol] 44.7 fL 35.1-43.9 [facility] Erythrocyte distribution width (RBC) [Ratio] 14.6 % 11.6-14.6 [facility] Immature granulocytes/100 WBC (Bld) 0.300 % 0.0-0.9 [facility] Comment on above: IG% - Immature Granu locytes (promyelocytes, myelocytes and metamyelocytes) > 1% indicates that a LEFT SHIFT is Present. MCH (RBC) [Entitic mass] 26.6 pg 27.0-32.0 [facility] Nucleated RBC/100 WBC (Bld) [Ratio] 0 % 0-5 [facility] MCHC Auto (RBC) [Mass/Vol]Or dered By: Sumit Whipple on 04-18-2023 MCHC (RBC) [Mass/Vol] 31.2 g/dL 32-36 [facility] No Panel InformationOrdered By: Sumit Whipple on 04-18-2023 Estimated GFR (MDRD) Amer 69 mL/min >60 [facility] Comment on above: GFR Calc Estimated GFR (MDRD) Non-Af Amer 57 mL/min >60 [facility] Comment on above: Non- GFR Calc Thyroid Stimulating Hormone (TSH) 0.67 uIU/mL 0.358-3.74 [facility] Platelets bldOrdered By: Sumit Whipple on 04-18-2023 Platelets (Bld) [#/Vol] 337 10*3/uL 150-450 [facility] Serum or plasma C reactive p rotein measurement (mass/volume)Ordered By: Sumit Whipple on 04-18-2023 CRP [Mass/Vol] mg/L 0.0-3.0 [facility] Comment on above: C-Reactive Protein ( CRP) provides useful information for thediagnosis, therapy and monitoring of inflammatory processesand associated diseases. For the evaluation of Relative Riskfor Cardiovascular Disease, a High Sensitivity CRP (HSCRP)should be ordered. Serum or plasma calcium dot urement (mass/volume)Ordered By: Sumit Whipple on 04-18-2023 Calcium [Mass/Vol] 9.5 mg/dL 8.5-10.1 [facility] Serum or plasma creatinine m easurement (mass/volume)Ordered By: Sumit Whipple on 04-18-2023 Creatinine [Mass/Vol] 1.00 mg/dL 0.55-1.02 [facility] Comment on above: The validity of the calculated GFR & GFRAA in patients over 70 years has not been determined. Clinical correlation is essential. Serum or plasma urea nitroge n measurement (mass/volume)Ordered By: Sumit Whipple on 04-18-2023 Urea nitrogen [Mass/Vol] 19 mg/dL 7-18 [facility] Thin prep Papanicolaou smear with manual screeningOrdered By: Sumit Whipple on 04-18-2023 Thin prep Papanicolaou smear with manual screening 5 5-15 [facility] Absolute lymphocyte countOrd ered By: Dr. Whipple on 11-01-2022 Lymphocytes Auto (Unsp spec) [#/Vol] 1.59 10*3/uL 0.83-4.51 [facility] Basophil percentageOrdered B y: Dr. Whipple on 11-01-2022 Basophils/100 WBC (Bld) 0.5 % 0-1 [facility] Bilirubin [Mass/Vol] 0.30 mg/dL 0.20-1.00 [facility] Comment on above: For patients on eltr ombopag therapy, use of Dimension Pep TBIL is not recommended. Chloride [Moles/Vol] 105 mmol/L 98-107 [facility] Eosinophils/100 WBC (Bld) 3.8 % 0-5 [facility] Glucose [Mass/Vol] 115 mg/dL 74-106 [facility] Comment on above: Fasting Glucose resu lt from 100 to 125 mg/dL suggests IMPAIRED HOMEOSTASIS per A.D.A. criteria. Neutrophils (Bld) [#/Vol] 4.2 10*3/uL 2.0-7.7 [facility] Neutrophils/100 WBC (Bld) 63.7 % 47-70 [facility] Potassium [Moles/Vol] 4.5 mmol/L 3.5-5.1 [facility] Protein [Mass/Vol] 6.8 g/dL 6.4-8.2 [facility] Sodium [Moles/Vol] 139 mmol/L 136-145 [facility] WBC (Bld) [#/Vol] 6.5 10*3/uL 4.4-11.0 [facility] Blood erythrocytes count (nu mber/volume)Ordered By: Dr. Whipple on 11-01-2022 RBC (Bld) [#/Vol] 4.69 10*6/uL 4.2-5.4 [facility] Blood hemoglobin measurement (mass/volume)Ordered By: Dr. Whipple on 11-01-2022 Hemoglobin (Bld) [Mass/Vol] 12.8 g/dL 12.0-15.0 [facility] Blood lymphocytes/100 leukoc ytesOrdered By: Dr. Whipple on 11-01-2022 Lymphocytes/100 WBC (Bld) 24.4 % 19-41 [facility] Blood monocytes/100 leukocyt esOrdered By: Dr. Whipple on 11-01-2022 Monocytes/100 WBC (Bld) 7.1 % 0-10 [facility] Blood platelet mean volumeOr dered By: Dr. Whipple on 11-01-2022 Platelet mean volume (Bld) [Entitic vol] 10.5 fL 6.2-12.0 [facility] Determination of erythrocyte mean corpuscular volume (MCV)Ordered By: Dr. Whipple on 11-01-2022 MCV (RBC) [Entitic vol] 85.3 fL 81-99 [facility] Hematocrit Auto (Bld) [Volum e fraction]Ordered By: Dr. Whipple on 11-01-2022 Hematocrit (Bld) [Volume fraction] 40.0 % 37-47 [facility] Laboratory - Chemistry and C hemistry - challengeOrdered By: Dr. Whipple on 11-01-2022 ALP [Catalytic activity/Vol] 59 U/L 45-117 [facility] ALT [Catalytic activity/Vol] 24 U/L 13-56 [facility] CO2 [Moles/Vol] 29.0 mmol/L 21.0-32.0 [facility] Globulin (S) [Mass/Vol] 3.3 g/dL 2.2-4.2 [facility] Urea nitrogen/Creatinine [Mass ratio] 25.2 mg/mg 10-20 [facility] Laboratory - Hematology and Cell countsOrdered By: Dr. Whipple on 11-01-2022 Erythrocyte distribution width (RBC) [Entitic vol] 44.9 fL 35.1-43.9 [facility] Erythrocyte distribution width (RBC) [Ratio] 14.6 % 11.6-14.6 [facility] Immature granulocytes/100 WBC (Bld) 0.500 % 0.0-0.9 [facility] Comment on above: IG% - Immature Granu locytes (promyelocytes, myelocytes and metamyelocytes) > 1% indicates that a LEFT SHIFT is Present. MCH (RBC) [Entitic mass] 27.3 pg 27.0-32.0 [facility] Nucleated RBC/100 WBC (Bld) [Ratio] 0 % 0-5 [facility] MCHC Auto (RBC) [Mass/Vol]Or dered By: Dr. Whipple on 11-01-2022 MCHC (RBC) [Mass/Vol] 32.0 g/dL 32-36 [facility] No Panel InformationOrdered By: Dr. Whipple on 11-01-2022 Estimated GFR (MDRD) Amer 77 mL/min >60 [facility] Comment on above: GFR Calc Estimated GFR (MDRD) Non-Af Amer 64 mL/min >60 [facility] Comment on above: Non- GFR Calc Thyroid Stimulating Hormone (TSH) 1.16 uIU/mL 0.358-3.74 [facility] Vitamin D 25-Hydroxy 73.4 ng/mL [facility] Comment on above: Vitamin D 25(OH) Sta tus Range Deficiency <20 ng/mL (50nmol/L) Insufficiency 20 - 30 ng/mL (50 - 75 nmol/L) Sufficiency 30 - 100 ng/mL (75 - 250 nmol/L) Toxicity >100 ng/mL (>250 nmol/L) Platelets bldOrdered By: Dr. Whipple on 11-01-2022 Platelets (Bld) [#/Vol] 297 10*3/uL 150-450 [facility] Serum or plasma albumin dot urement (mass/volume)Ordered By: Dr. Whipple on 11-01-2022 Albumin [Mass/Vol] 3.5 g/dL 3.2-5.0 [facility] Serum or plasma albumin/glob ulin mass ratioOrdered By: Dr. Whipple on 11-01-2022 Albumin/Globulin [Mass ratio] 1.1 {ratio} 0.9-2.4 [facility] Serum or plasma calcium dot urement (mass/volume)Ordered By: Dr. Whipple on 11-01-2022 Calcium [Mass/Vol] 9.7 mg/dL 8.5-10.1 [facility] Serum or plasma creatinine m easurement (mass/volume)Ordered By: Dr. Whipple on 11-01-2022 Creatinine [Mass/Vol] 0.91 mg/dL 0.55-1.02 [facility] Comment on above: The validity of the calculated GFR & GFRAA in patients over 70 years has not been determined. Clinical correlation is essential. Serum or plasma urea nitroge n measurement (mass/volume)Ordered By: Dr. Whipple on 11-01-2022 Urea nitrogen [Mass/Vol] 23 mg/dL 7-18 [facility] Thin prep Papanicolaou smear with manual screeningOrdered By: Dr. Whipple on 11-01-2022 Thin prep Papanicolaou smear with manual screening 18 U/L 15-37 [facility] Thin prep Papanicolaou smear with manual screening 5 5-15 [facility] XR FOOT GENERAL 3V AP/LAT/OB L BILATERALon 10-24-2022 [facility] Absolute lymphocyte counton 05-04-2022 Lymphocytes Auto (Unsp spec) [#/Vol] 1.98 10*3/uL 0.83-4.51 [facility] Work Phone: Basophil percentageon 2021 Basophils/100 WBC (Bld) 0.6 % 0-1 [facility] Work Phone: Bilirubin [Mass/Vol] 0.30 mg/dL 0.20-1.00 [facility] Work Phone: [phone] Comment on above: For patients on eltr ombopag therapy, use of Dimension Pep TBIL is not recommended. Chloride [Moles/Vol] 104 mmol/L 98-107 [facility] Work Phone: [phone] Eosinophils/100 WBC (Bld) 4.4 % 0-5 [facility] Work Phone: [phone] Glucose [Mass/Vol] 132 mg/dL 74-106 [facility] Work Phone: [phone] Comment on above: Fasting Glucose resu lt greater than or equal to 126 mg/dL suggests DIABETES MELLITUS per A.D.A. criteria. Neutrophils (Bld) [#/Vol] 3.9 10*3/uL 2.0-7.7 [facility] Work Phone: [phone] Neutrophils/100 WBC (Bld) 57.7 % 47-70 [facility] Work Phone: [phone] Potassium [Moles/Vol] 4.6 mmol/L 3.5-5.1 [facility] Work Phone: [phone] Protein [Mass/Vol] 7.2 g/dL 6.4-8.2 [facility] Work Phone: [phone] Sodium [Moles/Vol] 140 mmol/L 136-145 [facility] Work Phone: [phone] WBC (Bld) [#/Vol] 6.7 10*3/uL 4.4-11.0 [facility] Work Phone: [phone] Blood erythrocytes count (nu mber/volume)on 05-04-2022 RBC (Bld) [#/Vol] 4.88 10*6/uL 4.2-5.4 [facility] Work Phone: [phone] Blood hemoglobin measurement (mass/volume)on 05-04-2022 Hemoglobin (Bld) [Mass/Vol] 13.4 g/dL 12.0-15.0 [facility] Work Phone: Blood lymphocytes/100 leukoc yteson 05-04-2022 Lymphocytes/100 WBC (Bld) 29.7 % 19-41 [facility] Work Phone: Blood monocytes/100 leukocyt eson 05-04-2022 Monocytes/100 WBC (Bld) 7.4 % 0-10 [facility] Work Phone: Blood platelet mean volumeon 05-04-2022 Platelet mean volume (Bld) [Entitic vol] 10.0 fL 6.2-12.0 [facility] Work Phone: Determination of erythrocyte mean corpuscular volume (MCV)on 05-04-2022 MCV (RBC) [Entitic vol] 84.8 fL 81-99 [facility] Work Phone: Hematocrit Auto (Bld) [Volum e fraction]on 05-04-2022 Hematocrit (Bld) [Volume fraction] 41.4 % 37-47 [facility] Work Phone: Laboratory - Chemistry and C hemistry - challengeon 05-04-2022 ALP [Catalytic activity/Vol] 58 U/L 45-117 [facility] Work Phone: ALT [Catalytic activity/Vol] 29 U/L 13-56 [facility] Work Phone: CO2 [Moles/Vol] 27.0 mmol/L 21.0-32.0 [facility] Work Phone: Globulin (S) [Mass/Vol] 4.0 g/dL 2.2-4.2 [facility] Work Phone: Urea nitrogen/Creatinine [Mass ratio] 26.5 mg/mg 10-20 [facility] Work Phone: Laboratory - Hematology and Cell countson 05-04-2022 Erythrocyte distribution width (RBC) [Entitic vol] 44.0 fL 35.1-43.9 [facility] Work Phone: Erythrocyte distribution width (RBC) [Ratio] 14.4 % 11.6-14.6 [facility] Work Phone: Immature granulocytes/100 WBC (Bld) 0.200 % 0.0-0.9 [facility] Work Phone: Comment on above: IG% - Immature Granu locytes (promyelocytes, myelocytes and metamyelocytes) > 1% indicates that a LEFT SHIFT is Present. MCH (RBC) [Entitic mass] 27.5 pg 27.0-32.0 [facility] Work Phone: Nucleated RBC/100 WBC (Bld) [Ratio] 0 % 0-5 [facility] Work Phone: MCHC Auto (RBC) [Mass/Vol]on 05-04-2022 MCHC (RBC) [Mass/Vol] 32.4 g/dL 32-36 [facility] Work Phone: No Panel Informationon 05-04 Estimated GFR (MDRD) Amer 71 mL/min >60 [facility] Work Phone: Comment on above: GFR Calc Estimated GFR (MDRD) Non-Af Amer 59 mL/min >60 [facility] Work Phone: Comment on above: Non- GFR Calc Thyroid Stimulating Hormone (TSH) 1.30 uIU/mL 0.358-3.74 [facility] Work Phone: Vitamin D 25-Hydroxy 68.2 ng/mL [facility] Work Phone: Comment on above: Vitamin D 25(OH) Sta tus Range Deficiency <20 ng/mL (50nmol/L) Insufficiency 20 - 30 ng/mL (50 - 75 nmol/L) Sufficiency 30 - 100 ng/mL (75 - 250 nmol/L) Toxicity >100 ng/mL (>250 nmol/L) Platelets bldon 05-04-2022 Platelets (Bld) [#/Vol] 351 10*3/uL 150-450 [facility] Work Phone: Serum or plasma albumin dot urement (mass/volume)on 05-04-2022 Albumin [Mass/Vol] 3.2 g/dL 3.2-5.0 [facility] Work Phone: Serum or plasma albumin/glob ulin mass ratioon 05-04-2022 Albumin/Globulin [Mass ratio] 0.8 {ratio} 0.9-2.4 [facility] Work Phone: Serum or plasma calcium dot urement (mass/volume)on 05-04-2022 Calcium [Mass/Vol] 9.6 mg/dL 8.5-10.1 [facility] Work Phone: Serum or plasma creatinine m easurement (mass/volume)on 05-04-2022 Creatinine [Mass/Vol] 0.98 mg/dL 0.55-1.02 [facility] Work Phone: Comment on above: The validity of the calculated GFR & GFRAA in patients over 70 years has not been determined. Clinical correlation is essential. Serum or plasma urea nitroge n measurement (mass/volume)on 05-04-2022 Urea nitrogen [Mass/Vol] 26 mg/dL 7-18 [facility] Work Phone: Thin prep Papanicolaou smear with manual screeningon 05-04-2022 Thin prep Papanicolaou smear with manual screening 15 U/L 15-37 [facility] Work Phone: Thin prep Papanicolaou smear with manual screening 9 5-15 [facility] Work Phone: Basophil percentageon 2021 Chloride [Moles/Vol] 99 mmol/L 98-107 [facility] Work Phone: Glucose [Mass/Vol] 133 mg/dL 74-106 [facility] Work Phone: Comment on above: Fasting Glucose resu lt greater than or equal to 126 mg/dL suggests DIABETES MELLITUS per A.D.A. criteria. Potassium [Moles/Vol] 4.3 mmol/L 3.5-5.1 [facility] Work Phone: Sodium [Moles/Vol] 133 mmol/L 136-145 [facility] Work Phone: Laboratory - Chemistry and C hemistry - challengeon 02-21-2022 CO2 [Moles/Vol] 27.0 mmol/L 21.0-32.0 [facility] Work Phone: Urea nitrogen/Creatinine [Mass ratio] 26.3 mg/mg 10-20 [facility] Work Phone: No Panel Informationon 02-21 Estimated GFR (MDRD) Amer 77 mL/min >60 [facility] Work Phone: Comment on above: GFR Calc Estimated GFR (MDRD) Non-Af Amer 64 mL/min >60 [facility] Work Phone: Comment on above: Non- GFR Calc Serum or plasma calcium dot urement (mass/volume)on 02-21-2022 Calcium [Mass/Vol] 9.8 mg/dL 8.5-10.1 [facility] Work Phone: Serum or plasma creatinine m easurement (mass/volume)on 02-21-2022 Creatinine [Mass/Vol] 0.91 mg/dL 0.55-1.02 [facility] Work Phone: Comment on above: The validity of the calculated GFR & GFRAA in patients over 70 years has not been determined. Clinical correlation is essential. Serum or plasma urea nitroge n measurement (mass/volume)on 02-21-2022 Urea nitrogen [Mass/Vol] 24 mg/dL 7-18 [facility] Work Phone: Thin prep Papanicolaou smear with manual screeningon 02-21-2022 Thin prep Papanicolaou smear with manual screening 7 5-15 [facility] Work Phone: Absolute lymphocyte counton 10-27-2021 Lymphocytes Auto (Unsp spec) [#/Vol] 2.88 10*3/uL 0.83-4.51 [facility] Work Phone: Basophil percentageon 2021 Basophils/100 WBC (Bld) 0.4 % 0-1 [facility] Work Phone: [phone] Bilirubin [Mass/Vol] 0.30 mg/dL 0.20-1.00 [facility] Work Phone: Comment on above: For patients on eltr ombopag therapy, use of Dimension Pep TBIL is not recommended. Chloride [Moles/Vol] 101 mmol/L 98-107 [facility] Work Phone: [phone] Eosinophils/100 WBC (Bld) 1.7 % 0-5 [facility] Work Phone: [phone] Glucose [Mass/Vol] 88 mg/dL 74-106 [facility] Work Phone: [phone] Neutrophils (Bld) [#/Vol] 4.7 10*3/uL 2.0-7.7 [facility] Work Phone: [phone] Neutrophils/100 WBC (Bld) 55.7 % 47-70 [facility] Work Phone: [phone] Potassium [Moles/Vol] 4.4 mmol/L 3.5-5.1 [facility] Work Phone: [phone] Protein [Mass/Vol] 7.3 g/dL 6.4-8.2 [facility] Work Phone: [phone] Sodium [Moles/Vol] 136 mmol/L 136-145 [facility] Work Phone: WBC (Bld) [#/Vol] 8.4 10*3/uL 4.4-11.0 [facility] Work Phone: [phone] Blood erythrocytes count (nu mber/volume)on 10-27-2021 RBC (Bld) [#/Vol] 4.64 10*6/uL 4.2-5.4 [facility] Work Phone: Blood hemoglobin measurement (mass/volume)on 10-27-2021 Hemoglobin (Bld) [Mass/Vol] 13.7 g/dL 12.0-15.0 [facility] [place] Work Phone: Blood lymphocytes/100 leukoc yteson 10-27-2021 Lymphocytes/100 WBC (Bld) 34.2 % 19-41 [facility] [place] Work Phone: Blood monocytes/100 leukocyt eson 10-27-2021 Monocytes/100 WBC (Bld) 7.8 % 0-10 [facility] [place] Work Phone: Blood platelet mean volumeon 10-27-2021 Platelet mean volume (Bld) [Entitic vol] 10.1 fL 6.2-12.0 [facility] [place] Work Phone: Determination of erythrocyte mean corpuscular volume (MCV)on 10-27-2021 MCV (RBC) [Entitic vol] 87.1 fL 81-99 [facility] [place] Work Phone: Hematocrit Auto (Bld) [Volum e fraction]on 10-27-2021 Hematocrit (Bld) [Volume fraction] 40.4 % 37-47 [facility] [place] Work Phone: Laboratory - Chemistry and C hemistry - challengeon 10-27-2021 ALP [Catalytic activity/Vol] 55 U/L 45-117 [facility] [place] Work Phone: ALT [Catalytic activity/Vol] 25 U/L 13-56 [facility] [place] Work Phone: CO2 [Moles/Vol] 28.0 mmol/L 21.0-32.0 [facility] [place] Work Phone: Globulin (S) [Mass/Vol] 3.5 g/dL 2.2-4.2 [facility] [place] Work Phone: Urea nitrogen/Creatinine [Mass ratio] 17.8 mg/mg 10-20 [facility] [place] Work Phone: Laboratory - Hematology and Cell countson 10-27-2021 Erythrocyte distribution width (RBC) [Entitic vol] 45.9 fL 35.1-43.9 [facility] [place] Work Phone: Erythrocyte distribution width (RBC) [Ratio] 14.4 % 11.6-14.6 [facility] [place] Work Phone: Immature granulocytes/100 WBC (Bld) 0.200 % 0.0-0.9 [facility] [place] Work Phone: Comment on above: IG% - Immature Granu locytes (promyelocytes, myelocytes and metamyelocytes) > 1% indicates that a LEFT SHIFT is Present. MCH (RBC) [Entitic mass] 29.5 pg 27.0-32.0 [facility] [place] Work Phone: Nucleated RBC/100 WBC (Bld) [Ratio] 0 % 0-5 [facility] [place] Work Phone: MCHC Auto (RBC) [Mass/Vol]on 10-27-2021 MCHC (RBC) [Mass/Vol] 33.9 g/dL 32-36 [facility] Work Phone: No Panel Informationon 10-27 Estimated GFR (MDRD) Amer 64 mL/min >60 [facility] [place] Work Phone: Comment on above: GFR Calc Estimated GFR (MDRD) Non-Af Amer 53 mL/min >60 [facility] [place] Work Phone: Comment on above: Non- GFR Calc Thyroid Stimulating Hormone (TSH) 6.94 uIU/mL 0.358-3.74 [facility] [place] Work Phone: Vitamin D 25-Hydroxy 67.3 ng/mL [facility] Work Phone: Comment on above: Vitamin D 25(OH) Sta tus Range Deficiency <20 ng/mL (50nmol/L) Insufficiency 20 - 30 ng/mL (50 - 75 nmol/L) Sufficiency 30 - 100 ng/mL (75 - 250 nmol/L) Toxicity >100 ng/mL (>250 nmol/L) Platelets bldon 10-27-2021 Platelets (Bld) [#/Vol] 354 10*3/uL 150-450 [facility] [place] Work Phone: Serum or plasma albumin dot urement (mass/volume)on 10-27-2021 Albumin [Mass/Vol] 3.8 g/dL 3.2-5.0 [facility] Work Phone: Serum or plasma albumin/glob ulin mass ratioon 10-27-2021 Albumin/Globulin [Mass ratio] 1.1 {ratio} 0.9-2.4 [facility] [place] Work Phone: Serum or plasma calcium dot urement (mass/volume)on 10-27-2021 Calcium [Mass/Vol] 9.6 mg/dL 8.5-10.1 [facility] Work Phone: Serum or plasma creatinine m easurement (mass/volume)on 10-27-2021 Creatinine [Mass/Vol] 1.07 mg/dL 0.55-1.02 [facility] Work Phone: Comment on above: The validity of the calculated GFR & GFRAA in patients over 70 years has not been determined. Clinical correlation is essential. Serum or plasma urea nitroge n measurement (mass/volume)on 10-27-2021 Urea nitrogen [Mass/Vol] 19 mg/dL 7-18 [facility] [place] Work Phone: Thin prep Papanicolaou smear with manual screeningon 10-27-2021 Thin prep Papanicolaou smear with manual screening 12 U/L 15-37 [facility] [place] Work Phone: Thin prep Papanicolaou smear with manual screening 7 5-15 [facility] [place] Work Phone: Basophil percentageon 2021 Basophil percentage 4.0 mg/dL 2.5-4.9 [facility] Work Phone: Chloride [Moles/Vol] 103 mmol/L 98-[address] [facility] Work Phone: Glucose [Mass/Vol] 184 mg/dL 74-106 [facility] Work Phone: Comment on above: Fasting Glucose resu lt greater than or equal to 126 mg/dL suggests DIABETES MELLITUS per A.D.A. criteria. Potassium [Moles/Vol] 4.6 mmol/L 3.5-5.1 [facility] Work Phone: Sodium [Moles/Vol] 137 mmol/L 136-145 [facility] Work Phone: WBC (Bld) [#/Vol] 7.1 10*3/uL 4.4-11.0 [facility] Work Phone: Blood erythrocytes count (nu mber/volume)on 09-19-2021 RBC (Bld) [#/Vol] 4.68 10*6/uL 4.2-5.4 [facility] Work [facility]: Blood hemoglobin measurement (mass/volume)on 09-19-2021 Hemoglobin (Bld) [Mass/Vol] 13.3 g/dL 12.0-15.0 [facility] [place] Work Phone: Blood platelet mean volumeon 09-19-2021 Platelet mean volume (Bld) [Entitic vol] 9.6 fL 6.2-12.0 [facility] [place] Work Phone: Determination of erythrocyte mean corpuscular volume (MCV)on 09-19-2021 MCV (RBC) [Entitic vol] 86.1 fL 81-99 [facility] [place] Work Phone: Hematocrit Auto (Bld) [Volum e fraction]on 09-19-2021 Hematocrit (Bld) [Volume fraction] 40.3 % 37-47 [facility] [place] Work Phone: Laboratory - Chemistry and C hemistry - challengeon 09-19-2021 CO2 [Moles/Vol] 26.0 mmol/L 21.0-32.0 [facility] [place] Work Phone: Urea nitrogen/Creatinine [Mass ratio] 19.8 mg/mg 10-20 [facility] [place] Work Phone: Laboratory - Hematology and Cell countson 09-19-2021 Erythrocyte distribution width (RBC) [Entitic vol] 43.8 fL 35.1-43.9 [facility] [place] Work Phone: Erythrocyte distribution width (RBC) [Ratio] 14.1 % 11.6-14.6 [facility] [place] Work Phone: MCH (RBC) [Entitic mass] 28.4 pg 27.0-32.0 [facility] [place] Work Phone: MCHC Auto (RBC) [Mass/Vol]on 09-19-2021 MCHC (RBC) [Mass/Vol] 33.0 g/dL 32-36 [facility] Work Phone: No Panel Informationon 09-19 Estimated GFR (MDRD) Amer 69 mL/min >60 [facility] [place] Work Phone: Comment on above: GFR Calc Estimated GFR (MDRD) Non-Af Amer 57 mL/min >60 [facility] [place] Work Phone: Comment on above: Non- GFR Calc Parathyroid Hormone (Intact) 31.0 pg/mL 18.4-80.1 [facility] [place] Work Phone: Platelets bldon 09-19-2021 Platelets (Bld) [#/Vol] 330 10*3/uL 150-450 [facility] [place] Work Phone: Serum or plasma albumin dot urement (mass/volume)on 09-19-2021 Albumin [Mass/Vol] 3.6 g/dL 3.2-5.0 [facility] Work Phone: Serum or plasma calcium dot urement (mass/volume)on 09-19-2021 Calcium [Mass/Vol] 9.8 mg/dL 8.5-10.1 [facility] Work Phone: Serum or plasma creatinine m easurement (mass/volume)on 09-19-2021 Creatinine [Mass/Vol] 1.01 mg/dL 0.55-1.02 [facility] Work Phone: Comment on above: The validity of the calculated GFR & GFRAA in patients over 70 years has not been determined. Clinical correlation is essential. Serum or plasma urea nitroge n measurement (mass/volume)on 09-19-2021 Urea nitrogen [Mass/Vol] 20 mg/dL 7-18 [facility] [place] Work Phone: Basophil percentageon 2020 Basophil percentage 3.6 mg/dL 2.5-4.9 [facility] Work Phone: Chloride [Moles/Vol] 102 mmol/L 98-107 [facility] Work Phone: Glucose [Mass/Vol] 191 mg/dL 74-106 [facility] Work Phone: Comment on above: Fasting Glucose resu lt greater than or equal to 126 mg/dL suggests DIABETES MELLITUS per A.D.A. criteria.Please note revised GLUCOSE reference range effective 2017. Potassium [Moles/Vol] 4.3 mmol/L 3.5-5.1 [facility] Work Phone: Sodium [Moles/Vol] 136 mmol/L 136-145 [facility] Work Phone: Laboratory - Chemistry and C hemistry - challengeon 07-14-2021 CO2 [Moles/Vol] 27.0 mmol/L 21.0-32.0 [facility] [place] Work Phone: Urea nitrogen/Creatinine [Mass ratio] 22.6 mg/mg 10-20 [facility] [place] Work Phone: No Panel Informationon 07-14 Estimated GFR (MDRD) Amer 72 mL/min >60 [facility] [place] Work Phone: Comment on above: GFR Calc Estimated GFR (MDRD) Non-Af Amer 59 mL/min >60 [facility] [place] Work Phone: Comment on above: Non- GFR Calc Serum or plasma albumin dot urement (mass/volume)on 07-14-2021 Albumin [Mass/Vol] 3.4 g/dL 3.2-5.0 [facility] Work Phone: Serum or plasma calcium dot urement (mass/volume)on 07-14-2021 Calcium [Mass/Vol] 9.6 mg/dL 8.5-10.1 [facility] Work Phone: Serum or plasma creatinine m easurement (mass/volume)on 07-14-2021 Creatinine [Mass/Vol] 0.97 mg/dL 0.55-1.02 [facility] Work Phone: Comment on above: The validity of the calculated GFR & GFRAA in patients over 70 years has not been determined. Clinical correlation is essential. Serum or plasma urea nitroge n measurement (mass/volume)on 07-14-2021 Urea nitrogen [Mass/Vol] 22 mg/dL 7-18 [facility] [place] Work Phone: Urine creatinine measurement (mass/volume)on 07-14-2021 Creatinine (U) [Mass/Vol] 144.00 mg/dL NO RANGE EST. [facility] [place] Work Phone: Urine protein measurement (m ass/volume)on 07-14-2021 Protein (U) [Mass/Vol] 13.8 mg/dL 0.0-11.8 [facility] Work Phone: Urine protein/creatinine mas s ratioon 07-14-2021 Protein/Creatinine (U) [Mass ratio] 96 mg/g CRE 0-200 [facility] [place] Work Phone: .Auto Diffon 02-19-2019 Ammonia (P) [Mass/Vol] 0.60 10 3/mcL Normal 0.15-1.00 [facility] ([place]) Comment on above: Performed By: #### A ROJAS, CBC, ADIFF #### [facility] [address] [place] [id number] #### B12, GFR, FE, BMP, FOL #### [address] [address] Basophils (Bld) [#/Vol] 0.00 10 3/mcL Normal 0.00-0.19 [facility] ([place]) Comment on above: Performed By: #### A ROJAS, CBC, ADIFF #### [place] [address] #### B12, GFR, FE, BMP, FOL #### [address] [address] Basophils/100 WBC (Bld) 0.4 % Normal 0.0-2.5 [facility] ([place]) Comment on above: Performed By: #### A ROJAS, CBC, ADIFF #### [place] [address] #### B12, GFR, FE, BMP, FOL #### [address] [address] Eosinophils (Bld) [#/Vol] 0.20 10 3/mcL Normal 0.00-0.40 [facility] ([place]) Comment on above: Performed By: #### A ROJAS, CBC, ADIFF #### [place] [address] #### B12, GFR, FE, BMP, FOL #### [address] [address] Eosinophils/100 WBC (Bld) 2.5 % Normal 0.0-7.0 [facility] ([place]) Comment on above: Performed By: #### A ROJAS, CBC, ADIFF #### [place] [address] #### B12, GFR, FE, BMP, FOL #### [address] [address] Lymphocytes (Bld) [#/Vol] 1.50 10 3/mcL Normal 0.77-3.85 [facility] ([place]) Comment on above: Performed By: #### A ROJAS, CBC, ADIFF #### [place] [address] #### B12, GFR, FE, BMP, FOL #### [address] [address] Lymphocytes/100 WBC (Bld) 21.3 % Normal 10.0-50.0 [facility] ([place]) Comment on above: Performed By: #### A ROJAS, CBC, ADIFF #### [address] [address] #### B12, GFR, FE, BMP, FOL #### [address] [address] Monocytes/100 WBC (Bld) 8.1 % Normal 1.7-13.0 [facility] ([place]) Comment on above: Performed By: #### A ROJAS, CBC, ADIFF #### [address] [address] #### B12, GFR, FE, BMP, FOL #### [address] [address] Neutrophils/100 WBC (Bld) 67.7 % Normal 37.0-80.0 [facility] ([place] Comment on above: Performed By: #### A ROJAS, CBC, ADIFF #### [address] [address] #### B12, GFR, FE, BMP, FOL #### [address] [address] .GFRon 02-19-2019 GFR Non- 50 ml/min/1.73sqm Normal [facility] ([place]) Comment on above: Result Comment: GFR Population [...] By: #### A ROJAS, CBC, ADIFF #### [address] [address] #### B12, GFR, FE, BMP, FOL #### [address] [address] GFR 61 ml/min/1.73sqm Normal [facility] ([place]) Comment on above: Result Comment: GFR Population [...] By: #### A ROJAS, CBC, ADIFF #### [address] [address] #### B12, GFR, FE, BMP, FOL #### [address] [address] .NEUABSon 02-19-2019 Neutrophils (Bld) [#/Vol] 4.90 10 3/mcL Normal 2.85-6.16 [facility] ([place] Comment on above: Performed By: #### A ROJAS, CBC, ADIFF #### [address] [address] #### B12, GFR, FE, BMP, FOL #### [address] [address] B12on 02-19-2019 Cobalamin (Vitamin B12) [Mass/Vol] 258 pg/mL Normal 211-911 [facility] ([place] Comment on above: Performed By: #### A ROJAS, CBC, ADIFF #### [address] [address] #### B12, GFR, FE, BMP, FOL #### [address] [address] BMPon 02-19-2019 Calcium [Mass/Vol] 8.8 mg/dL Normal 8.4-10.2 [facility] ([place]) Comment on above: Performed By: #### A ROJAS, CBC, ADIFF #### [address] [address] #### B12, GFR, FE, BMP, FOL #### [address] [address] Chloride [Moles/Vol] 103 mmol/L Normal 98-107 [facility] ([place]) Comment on above: Performed By: #### A ROJAS, CBC, ADIFF #### [address] [address] #### B12, GFR, FE, BMP, FOL #### [address] [address] CO2 [Moles/Vol] 32 mmol/L High 23-31 [facility] ([place]) Comment on above: Performed By: #### A ROJAS, CBC, ADIFF #### [place] [address] #### B12, GFR, FE, BMP, FOL #### [address] [address] Creatinine [Mass/Vol] 1.07 mg/dL High 0.55-1.02 [facility] ([place]) Comment on above: Performed By: #### A ROJAS, CBC, ADIFF #### [address] [address] #### B12, GFR, FE, BMP, FOL #### [address] [address] Electrolyte Balance 4.0 mEq/L Normal [facility] ([place]) Comment on above: Performed By: #### A ROJAS, CBC, ADIFF #### [place] [address] #### B12, GFR, FE, BMP, FOL #### [address] [address] Glucose [Mass/Vol] 105 mg/dL Normal 83-110 [facility] ([place]) Comment on above: Performed By: #### A ROJAS, CBC, ADIFF #### [address] [address] #### B12, GFR, FE, BMP, FOL #### [address] [address] Potassium [Moles/Vol] 4.2 mmol/L Normal 3.5-5.1 [facility] ([place]) Comment on above: Performed By: #### A ROJAS, CBC, ADIFF #### [address] [address] #### B12, GFR, FE, BMP, FOL #### [address] [address] Sodium [Moles/Vol] 139 mmol/L Normal 136-145 [facility] ([place]) Comment on above: Performed By: #### A ROJAS, CBC, ADIFF #### [place] [address] #### B12, GFR, FE, BMP, FOL #### [address] [address] Urea nitrogen [Mass/Vol] 16 mg/dL Normal 7-18 [facility] ([place] Comment on above: Performed By: #### A ROJAS, CBC, ADIFF #### [place] [address] #### B12, GFR, FE, BMP, FOL #### [address] [address] Urea nitrogen/Creatinine [Mass ratio] 15 ratio Normal 7-27 [facility] ([place]) Comment on above: Performed By: #### A ROJAS, CBC, ADIFF #### [address] [address] #### B12, GFR, FE, BMP, FOL #### [address] [address] CBCon 02-19-2019 Erythrocyte distribution width (RBC) [Ratio] 18.4 % High 11.5-14.5 [facility] ([place]) Comment on above: Performed By: #### A ROJAS, CBC, ADIFF #### [address] [address] #### B12, GFR, FE, BMP, FOL #### [place] [address] Hematocrit (Bld) [Volume fraction] 32.9 % Low 37.0-47.0 [facility] ([place] Comment on above: Performed By: #### A ROJAS, CBC, ADIFF #### [place] [address] #### B12, GFR, FE, BMP, FOL #### [place] [address] Hemoglobin (Bld) [Mass/Vol] 11.0 G/dL Low 12.0-16.0 [facility] ([place] Comment on above: Performed By: #### A ROJAS, CBC, ADIFF #### [place] [address] #### B12, GFR, FE, BMP, FOL #### [place] [address] MCH (RBC) [Entitic mass] 27.5 pg Normal 27.0-31.2 [facility] ([place] Comment on above: Performed By: #### A ROJAS, CBC, ADIFF #### [place] [address] #### B12, GFR, FE, BMP, FOL #### [place] [address] MCHC (RBC) [Mass/Vol] 33.5 G/dL Normal 33.0-37.0 [facility] ([place]) Comment on above: Performed By: #### A ROJAS, CBC, ADIFF #### [place] [address] #### B12, GFR, FE, BMP, FOL #### [place] [address] MCV (RBC) [Entitic vol] 82.1 fL Normal 80.0-94.0 [facility] ([place] Comment on above: Performed By: #### A ROJAS, CBC, ADIFF #### [place] [address] #### B12, GFR, FE, BMP, FOL #### [address] [address] Platelet mean volume (Bld) [Entitic vol] 7.6 fL Normal 7.4-10.4 [facility] ([place] Comment on above: Performed By: #### A ROJAS, CBC, ADIFF #### [place] [address] #### B12, GFR, FE, BMP, FOL #### [address] [address] Platelets (Bld) [#/Vol] 251 10 3/mcL Normal 130-400 [facility] ([place] Comment on above: Performed By: #### A ROJAS, CBC, ADIFF #### [place] [address] #### B12, GFR, FE, BMP, FOL #### [place] [address] RBC (Bld) [#/Vol] 4.00 10 6/mcL Low 4.20-5.40 [facility] ([place]) Comment on above: Performed By: #### A ROJAS, CBC, ADIFF #### [place] [address] #### B12, GFR, FE, BMP, FOL #### [place] [id number] WBC (Bld) [#/Vol] 7.20 10 3/mcL Normal 4.60-10.80 [facility] ([place]) Comment on above: Performed By: #### A ROJAS, CBC, ADIFF #### [place] [address] #### B12, GFR, FE, BMP, FOL #### [address] [address] FEon 02-19-2019 Iron [Mass/Vol] 43 ug/dL Low 50-70 [facility] ([place] Comment on above: Performed By: #### A ROAJS, CBC, ADIFF #### [place] [id number] [place], [place] [address] #### B12, GFR, FE, BMP, FOL #### [facility] [address] [place] [address] FOLon 02-19-2019 Folate 27.2 ng/mL High 1.1-20.0 [facility] ([place] Comment on above: Performed By: #### A ROJAS, CBC, ADIFF #### [place] [id number] [place], [place] [address] #### B12, GFR, FE, BMP, FOL #### [facility] [address] [place] [address] XR KNEE 1 OR 2 VIEWS LEFTon [...] Date: 02/18/2019 1:51:39 PM Normal [facility] ([place] CT KNEE W/O CONTRAST LEFTon 02-04-2019 CT [...] Date: 02/04/2019 6:02:48 PM Normal [facility] ([place] Culture, urine Bacteria identified Cx Nom (U) Positive [facility] [place] Work Phone: Vital Signs Date Time Vital Sign Value Performing Clinician John huston 08-29-2022 09:41-0500 Body height 173.[address] Sumit Whipple Work Phone: [facility] [place] 08-29-2022 09:41-0500 Body mass index (BMI) [Ratio] 27.3 kg/m2 Dr. Sumit Whipple Work Phone: [facility] [place] 08-29-2022 09:41-0500 Body temperature 97.2 [degF] Dr. Sumit Whipple Work Phone: [facility] [place] 08-29-2022 09:41-0500 Body weight 82.[address] Sumit Whipple Work Phone: [facility] [place] 08-29-2022 09:41-0500 Diastolic blood pressure 75 mm[Hg] Dr. Sumit Whipple Work Phone: [facility] [place] 08-29-2022 09:41-0500 Heart rate 68 /min Dr. Sumit Whipple Work Phone: [facility] [place] 08-29-2022 09:41-0500 Respiratory rate 18 /min Dr. Sumit Whipple Work Phone: [facility] [place] 08-29-2022 09:41-0500 SaO2% (BldA) [Mass fraction] 96 % Dr. Sumit Whipple Work Phone: [facility] [place] 08-29-2022 09:41-0500 Systolic blood pressure 150 mm[Hg] Dr. Sumit Whipple Work Phone: [facility] [place] 12-07-2021 14:48-0400 Body height 173.99 cm [facility] Work Phone: 12-07-2021 14:48-0400 Body weight 91.53 kg [facility] Work Phone: 10-24-2021 11:18-0400 Body height 173.99 cm [facility] Work Phone: 10-24-2021 11:18-0400 Body weight 93.98 kg [facility] Work Phone: 10-10-2021 10:31-0500 Body weight 94.71 kg [facility] Work Phone: Encounters Encounter Date Encounter Type Care Provider Facility Start: 03-16-2025 ambulatory Sumit Chi Sarabjit Facility:[facility] Start: 03-02-2025 End: 03-02-2025 ambulatory Sumit Chi Sarabjit Facility:[facility] Start: 02-26-2025 End: 02-26-2025 ambulatory Sumit Chi Sarabjit Facility:[facility] [place] Start: 02-20-2025 End: 02-20-2025 ambulatory Sumit Chi Sarabjit Facility:[facility] Start: 02-09-2025 ambulatory Sumit Chi Sarabjit Facility:[facility] Start: 02-02-2025 ambulatory Sumit Chi Sarabjit Facility:[facility] Start: 01-26-2025 ambulatory Sumit Chi Sarabjit Facility:[facility] Start: 01-19-2025 ambulatory Sumit Chi Sarabjit Facility:[facility] Start: 01-13-2025 End: 01-13-2025 ambulatory Sumit Chi Sarabjit Facility:[facility] Start: 01-12-2025 End: 01-12-2025 ambulatory Sumit Chi Sarabjit Facility:[facility] Start: 01-07-2025 ambulatory Sumit Chi Sarabjit Facility:[facility] Start: 01-07-2025 End: 01-10-2025 Evaluation and management of inpatient Sumit Chi Sarabjit Facility:[facility] [place] Start: 12-26-2024 End: 12-26-2024 ambulatory Sumit Chi Sarabjit Facility:[facility] Start: 12-19-2024 End: 12-19-2024 ambulatory Sumit Chi Sarabjit Facility:[facility] [place] Start: 12-09-2024 End: 12-09-2024 ambulatory Sumit Chi Sarabjit Facility:[facility] [place] Start: 12-03-2024 End: 12-03-2024 ambulatory Collette Nieves Facility:[facility] Start: 11-25-2024 ambulatory Sumit Chi Sarabjit Facility:[facility] Start: 11-24-2024 ambulatory Sumit Chi Sarabjit Facility:[facility] Start: 11-18-2024 End: 11-18-2024 ambulatory Sumit Chi Sarabjit Facility:[facility] Start: 11-17-2024 End: 11-17-2024 ambulatory Sumit Chi Sarabjit Facility:[facility] Start: 11-14-2024 ambulatory Sumit Chi Sarabjit Facility:[facility] Start: 11-14-2024 End: 11-14-2024 Emergency department patient visit Sumit Chi Sarabjit Facility:[facility] [place] Start: 10-21-2024 End: 10-21-2024 ambulatory Sumit Chi Sarabjit Facility:[facility] [place] Start: 10-13-2024 End: 10-17-2024 Evaluation and management of inpatient Sumit Chi Sarabijt Facility:[facility] [place] Start: 10-13-2024 ambulatory Sumit Chi Sarabjit Facility:[facility] Start: 10-08-2024 End: 10-08-2024 ambulatory Sumit Chi Sarabjit Facility:[facility] [place] Start: 09-05-2024 End: 09-05-2024 ambulatory Sumit Chi Sarabjit Facility:[facility] Start: 09-04-2024 End: 09-04-2024 ambulatory Sumit Chi Sarabjit Facility:[facility] [place] Start: 09-02-2024 End: 09-02-2024 ambulatory Sumit Chi Sarabjit Facility:[facility] [place] Start: 07-03-2024 End: 07-03-2024 ambulatory Sumit Chi Sarabjit Facility:[facility] [place] Start: 06-11-2024 End: 06-11-2024 ambulatory Sumit Chi Sarabjit Facility:[facility] Start: 05-21-2024 End: 05-21-2024 ambulatory Sumit Chi Sarabjit Facility:[facility] Start: 05-14-2024 End: 05-14-2024 ambulatory Sumit Chi Sarabjit Facility:[facility] [place] Start: 03-26-2024 End: 03-26-2024 ambulatory Sumit Chi Sarabjit Facility:[facility] Start: 11-19-2023 End: 11-19-2023 ambulatory [facility] Work Phone: Start: 11-19-2023 End: 11-19-2023 Patient encounter procedure [facility]-Cat Scan, [facility] Work Phone: Start: 11-16-2023 End: 11-16-2023 ambulatory AGA GARCIA Facility:[facility] Start: 11-16-2023 End: 11-16-2023 Subsequent hospital visit by physician [facility] Work Phone: Radiology Comment on above: Arthritis of foot [M 19.079] Start: 11-16-2023 End: 11-16-2023 Patient encounter procedure Aga Garcia Work Phone: Podiatry Comment on above: 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) (Primary Dx); Arthritis of foot; Callus of foot Start: 11-07-2023 End: 11-07-2023 ambulatory [facility] Work Phone: Start: 11-07-2023 End: 11-07-2023 Patient encounter procedure [facility]-Laboratory, Phy Office 3rd Flr Start: 07-31-2023 End: 07-31-2023 ambulatory [facility] Work Phone: Start: 07-31-2023 End: 07-31-2023 Patient encounter procedure [facility]-MRI - [facility] Work Phone: Start: 07-17-2023 End: 07-17-2023 ambulatory [facility] Work Phone: Start: 07-17-2023 End: 07-17-2023 [facility] Start: 05-09-2023 End: 05-09-2023 Patient encounter procedure [facility] [place], [facility] Office 3rd Flr Start: 04-18-2023 End: 04-18-2023 ambulatory [facility] Work Phone: Start: 04-18-2023 End: 04-18-2023 Patient encounter procedure [facility] [place], [facility] Office 3rd Flr Start: 11-01-2022 End: 11-01-[address] Sumit Whipple Work Phone: [facility] Work Phone: Start: 11-01-2022 End: 11-01-[address] Sumit Whipple Work Phone: [facility] [place], [facility] Office 3rd Flr Start: 10-24-2022 End: 10-24-2022 Subsequent hospital visit by physician [facility] Work Phone: Radiology Comment on above: Foot pain, bilateral [M79.671, M79.672] Start: 10-12-2022 Refill Karoline Cervantes MD Work Phone: Psychiatry Comment on above: Refill Request Start: 08-29-2022 End: 08-29-[address] Sumit Whipple Work Phone: [facility] Work Phone: Start: 08-29-2022 End: 08-29-[address] Sum[facility] Whipple [facility] Start: 08-29-2022 End: 08-29-[address] Sumit Whipple Work Phone: [facility] Start: 08-21-2022 End: 08-21-2022 ambulatory [facility] Work Phone: Start: 08-21-2022 End: 08-21-2022 Patient encounter procedure [facility]Outpatient Breast Imaging Start: 05-17-2022 End: 05-17-2022 [facility] Karoline Cervantes MD Work Phone: Psychiatry Comment on above: Recurrent major depr essive disorder, in partial remission (HCC) (Primary Dx) Start: 05-04-2022 End: 05-04-2022 ambulatory [facility] Work Phone: Start: 05-04-2022 End: 05-04-2022 Patient encounter procedure [facility]Labor[facility], Phy Office 3rd Flr Start: 03-18-2022 Refill Karoline Cervantes MD Work Phone: Psychiatry Comment on above: Refill Request Start: 03-14-2022 Refill Karoline Cervantes MD Work Phone: Psychiatry Comment on above: Refill Request Start: 02-21-2022 End: 02-21-2022 Patient encounter procedure [facility]Radiology, [facility] Start: 12-07-2021 End: 12-10-2021 [facility] Start: 11-17-2021 End: 11-17-2021 [facility] Karoline Cervantes MD Work Phone: Psychiatry Comment on above: Recurrent major depr essive disorder, in partial remission (HCC) (Primary Dx) Start: 10-27-2021 End: 10-27-2021 Patient encounter procedure [facility], y Office 3rd Flr Start: 10-24-2021 End: 11-10-2021 [facility] Start: 10-24-2021 [facility] Start: 10-20-2021 End: 10-20-2021 Patient encounter procedure [facility] Start: 10-10-2021 End: 10-10-2021 [facility] Start: 09-19-2021 End: 09-19-2021 Patient encounter procedure [facility]Laboratory, Phy Office 3rd Flr Start: 07-25-2021 Patient encounter procedure [facility]Ultrasound, [facility] Start: 07-14-2021 Patient encounter procedure [facility], Phy Office 3rd Flr Start: 03-15-2018 End: 03-26-2018 Patient encounter [facility] Procedures Date Procedure Procedure Detail Performing Clinician [...] DTaP,Tdap,Td Vaccine (3 - Td or Tdap) [facility] Start: 09-23-2028 Urine microalbumin profile [facility] Start: 11-15-2024 Diabetic foot examination Diabetic Foot Exam [facility] Start: 08-13-2023 Advance Directive Discussion Advance Directive Discussion [facility] Start: 04-13-2023 Covid-19 Vaccine () Covid-19 Vaccine () [facility] Start: 04-13-2023 Influenza vaccination Influenza Vacc ine (#1) [facility] Start: 08-13-2022 ADVANCE DIRECTIVE DISCUSSION ADVANCE DIRECTIVE DISCUSSION [facility] Start: 06-13-2022 Glaucoma screening Dilated Retinal E xam [facility] Start: 06-13-2022 Hepatitis C antibody , confirmatory test DILATED RETINAL EXAM [facility] Start: 04-13-2022 Influenza vaccination INFLUENZA (#1) [facility] Start: 03-03-2022 COVID-19 VACCINE (5 - Booster for Pfizer series) COVID-19 VACCINE (5 - Booster for Pfizer series) [facility] Start: 11-11-2021 COVID-19 VACCINE (4 - Booster for Pfizer series) COVID-19 VACCINE (4 - Booster for Pfizer series) [facility] Start: 11-09-2021 3 comp foot exam completed DIABETIC FOOT EXAM [facility] Start: 09-04-2021 Colonoscopy COLONOSCOPY [facility] Start: 09-04-2021 COLORECTAL CANCER SCREENING COLORECTAL CANCER SCREENING [facility] Start: 08-13-2021 ADVANCE DIRECTIVE DISCUSSION ADVANCE DIRECTIVE DISCUSSION [facility] Start: 08-14-2020 ANNUAL PCP TEAM PLUGGER VIJAY DISEASE VISIT ANNUAL PCP TEAM CHRONIC DISEASE VISIT [facility] Start: 02-04-2020 Hemoglobin A1c measurement HbA1C [facility] Start: 02-04-2020 Hemoglobin A1c/Hemoglobin.total in Blood HBA1C [facility] Start: 12-27-2019 FECAL OCCULT BLOOD FECAL OCCULT BLOO D [facility] Start: 11-05-2019 Hepatitis B screening URINE ALBUMIN:CREATININE RATIO [facility] Start: 11-05-2019 Hepatitis B surface antibody level LDL CHOLESTEROL [facility] Start: 08-18-2015 PNEUMOCOCCAL: 65+ (2 - PCV) PNEUMOCOCCAL: 65+ (2 - PCV) [facility] Start: 2006 Hepatitis B Vaccine (1 of 3 - Risk 3-dose series) Hepatitis B Vaccine (1 of 3 - Risk 3-dose series) [facility] Start: 2006 RSV Vaccine (1 - 1-d ose 60+ series) RSV Vaccine (1 - 1-dose 60+ series) [facility] Start: 1996 SHINGRIX VACCINE (1 of 2) SHINGRIX VACCINE (1 of 2) [facility] Start: 1991 COLOGUARD (FIT-DNA) COLOGUARD (FIT-D NA) [facility] Start: [address] COLONOGRAPHY [facility] Start: 1991 SIGMOIDOSCOPY SIGMOIDOSCOPY [facility] Start: 1964 ANNUAL PCP TEAM PLUGGER VIJAY DISEASE VISIT ANNUAL PCP TEAM CHRONIC DISEASE VISIT [facility] Start: 1964 BP CONTROLLED (<130/80) BP CONTROLLE D (<130/80) [facility] XR Foot - left AP an d Lateral and oblique XR FOOT GENERAL 3V AP/LAT/OBL LEFT Radiology Routine Arthritis of foot 11/16/2023 12:41 PM EDT [facility] Work Phone: End: 12-15-2024 XR Foot - left AP and Lateral and oblique XR FOOT GENERAL 3V AP/LAT/OBL LEFT Radiology Routine Arthritis of foot 1 Occurrences starting 11/16/2023 until 12/15/2024 [facility] Work Phone: Comment on above: 1 Occurrences starti ng 11/16/2023 until 12/15/2024 [facility] Immunization Date Immunization Notes Care Provider Fa cility 04-20-2021 influenza virus vacc ine, unspecified formulation [facility] Work Phone: [facility] 10-02-2019 hepatitis A vaccine, adult dosage Karoline Cervantes MD Work Phone: [facility] Work Phone: 06-05-2019 influenza, high dose seasonal, preservative-free Karoline Cervantes MD Work Phone: [facility] 06-30-2017 influenza, seasonal, injectable Karoline Cervantes MD Work Phone: [facility] 08-18-2014 pneumococcal conjuga te vaccine, 13 valent Karoline Cervantes MD Work Phone: [facility] 08-18-2014 pneumococcal polysaccharide vaccine, 23 valent Karoline Cervantes MD Work Phone: [facility] 04-29-2013 influenza virus vacc ine, unspecified formulation Karoline Cervantes MD Work Phone: [facility] 05-10-2012 influenza virus vacc ine, unspecified formulation Karoline Cervantes MD Work Phone: [facility] 10-01-2009 pneumococcal polysaccharide vaccine, 23 valent Karoline Cervantes MD Work Phone: [facility] Work Phone: 05-13-2009 tetanus and diphther ia toxoids, adsorbed, preservative free, for adult use (2 Lf of tetanus toxoid and 2 Lf of diphtheria toxoid) Karoline Cervantes MD Work Phone: [facility] Work Phone: Payers Date Payer Category Payer Self-pay [id number] 2011 Medicare [id number] 2011 Medicare MEDICARE MEDICAR E A AND B [id number] 2011-Present [phone] [place] [id number] Medicare [id number] 2011 Medicare MEDICARE MEDICAR E A AND B [id number] 2011-Present [phone] [address] [place] [id number] Medicare [id number] 1999 Unknown [id number] 1999 Unknown ANTHEM ANTHEM BC BS FEP PPO [id number] 1999-Present [phone] [id number] [place] [address] PPO [id number] 1999 Unknown ANTHEM ANTHEM BC BS FEP PPO [id number] 1999-Present [phone] [id number] [place] [id number] PPO [id number] [id number] Unknown [id number] 2.16.840.1.390271.3.579.2.462 Unknown [id number] 2.16840.1.906744.3.579.2.462 Unknown [id number] 2.16.840.1.375872.3.579.2.462 Unknown [id number] 2.16.840.1.355072.3.579.2.462 Unknown [id number] 2.840.1.101208.3.579.2.462 Unknown [id number] 2.840.1.803803.3.579.2.462 Unknown [id number] 2.840.1.332869.3.579.2.462 Unknown [id number] 2.840.1.851184.3.579.2.462 Unknown [id number] 2.840.1.823488.3.579.2.462 Unknown [id number] 2.840.1.422132.3.579.2.462 Unknown [id number] 2.840.1.850451.3.579.2.462 Unknown [id number] 2.840.1.607583.3.579.2.462 Unknown [id number] 2.840.1.468584.3.579.2.462 Unknown [id number] 2.16.840.1.745821.3.579.2.462 Unknown [id number] 2.16.840.1.957570.3.579.2.462 Unknown [id number] 2.16.840.1.456059.3.579.2.462 Unknown [id number] 2.16.840.1.295182.3.579.2.462 Unknown [id number] 2.16840.1.351353.3.579.2.462 Unknown [id number] 2.16.840.1.391701.3.579.2.462 Unknown [id number] 2.16.840.1.254329.3.579.2.462 Unknown [id number] 2.16.840.1.416658.3.579.2.462 Unknown [id number] 2.840.1.387681.3.579.2.462 Unknown [id number] 2.16840.1.273205.3.579.2.462 Unknown [id number] 2.840.1.711236.3.579.2.462 Unknown [id number] 2.840.1.659908.3.579.2.462 Unknown [id number] 2.840.1.164562.3.579.2.462 Unknown [id number] 2.840.1.481507.3.579.2.462 Unknown [id number] 2.840.1.284992.3.579.2.462 Unknown [id number] 2.840.1.011835.3.579.2.462 Unknown [id number] 2.840.1.546053.3.579.2.462 Unknown [id number] 2.840.1.049289.3.579.2.462 Unknown [id number] 2.840.1.681443.3.579.2.462 Unknown [id number] 2.840.1.565034.3.579.2.462 Unknown [id number] 2.16.840.1.915310.3.579.2.462 Unknown [id number] 2.840.1.421345.3.579.2.462 Unknown [id number] 2.840.1.794002.3.579.2.462 Unknown [id number] 2.16.840.1.487094.3.579.2.462 Unknown [id number] 2.16.840.1.686673.3.579.2.462 Unknown [id number] 2.16.840.1.513972.3.579.2.462 Unknown [id number] 2.16.840.1.877736.3.579.2.462 Unknown [id number] 2.16.840.1.293336.3.579.2.462 Unknown [id number] 2.16.840.1.419898.3.579.2.462 Unknown [id number] 2.16.840.1.754725.3.579.2.462 Unknown [id number] 2.16.840.1.731243.3.579.2.462 Unknown [id number] 2.840.1.768232.3.579.2.462 Unknown [id number] 2.16840.1.369643.3.579.2.462 Social History Date Type Detail Facility Start: 08-24-2020 End: 08-29-2022 Tobacco smoking status CAIS Unknown if ever smoked [facility] Start: 1945 Sex Assigned At Female C [facility] Start: 04-03-2011 Tobacco smoking stat us CAIS Never smoked tobacco [facility] Start: 08-11-2021 End: 11-16-2023 Alcohol intake Current drinker of alcohol (finding) [facility] Start: 08-18-2014 History SDOH Alcohol Comment once or twice per week [facility] Start: 04-03-2011 Tobacco use and exposure Smokeless tobacco non-user [facility] Work Phone: Start: 09-06-2022 End: 10-24-2022 History of Social function [facility] Start: 09-06-2022 End: 10-24-2022 Tobacco use panel [facility] Adult Depression Screening Assessment 4 [facility] Start: 04-09-2019 Gender identity Identifies as female gender (finding) [facility] Start: 08-28-2019 Sexual orientation Heterosexual (fin ding) [facility] Medical Equipment Procedure Code Equipment Code Equipment Origin al Text Equipment Identifier Dates 0---Lens Iol +15 .5 Ana Acrsf Iq - [id number] Start: 08-21-2013 0---Lens Iol +15 Ana Acrsf Iq 13 - [id number] Start: 09-04-2013 Comment on above: Description: [...] Date & Type Note Facility 01-10-2025 Note [facility] 10-17-2024 Note [facility] 10-13-2024 Note [facility] 11-16-2023 Note HNO ID: [id number] Author: DANIEL SCHULTE RN Service: ? Author Type: Registered Nurse Type: Progress Notes Filed: 11/16/2023 12:51 Note Text: Per Dr. GarciaAracely was provided with Gel Powerstep Inserts, size 11-12 Womens, and instructed/educated in its application, wear, and care. All questions were answered, and patient was able to demonstrate competence with the necessary skills to utilize the above equipment. Daniel Schulte RN [facility] 11-16-2023 Note HNO ID: [id number] Author: KRISTINA ESCOBAR RT(R) Service: Radiology Author [...] PATIENT PRESENTS WITH AN IMPLANTABLE OR ATTACHED INSULATION BOARD HEAD SAW OPERATOR: No RADIOLOGY DEPARTMENT: General X-ray: Exam(s) Completed: Lower Extremity X-Ray(s): Foot, Left and Wt. Bearing PERIPHERAL IV DATA: Not applicable SIGNED BY: RT Charbel(R) November 16, 2023 12:32 PM [facility] 11-16-2023 Note HNO ID: [id number] Author: AGA GARCIA, ? Service: ? Author [...] polyp, 8 ye (more content not included)... [facility] 11-16-2023 Note HNO ID: [id number] Author: DANIEL SCHULTE, NADER Service: ? Author [...] over the last few months. YANELI- 10/24/22 [facility] 11-16-2023 History of Presen t illness [...] PATIENT PRESENTS WITH AN IMPLANTABLE OR ATTACHED INSULATION BOARD HEAD SAW OPERATOR: No RADIOLOGY DEPARTMENT: General X-ray: Exam(s) Completed: Lower Extremity X-Ray(s): Foot, Left and Wt. Bearing PERIPHERAL IV DATA: Not applicable SIGNED BY: RT Charbel(R) November 16, 2023 12:32 PM documented in this encounter [facility] 11-16-2023 History of Presen t illness [...] history since last visit. PAIN EVALUATION 11/15/2023 1320 Pain Location: Toe Duration Amount of Time: [...] L4 & L5 . Dr Fraser in [facility] PAST SURGICAL HISTORY OF 05/2009 gastric [...] months. YANELI- 10/24/22 documented in this encounter [facility] 11-16-2023 Instructions Aga Garcia - 11/16/2023 [...] (or decreased sensation in your feet) a scientific research manager should always cut your toenails. Be Careful [...] Go to your health care provider or scientific research manager to treat these conditions. Powerstep Original Full length. Can purchase at [facility] Runner and boots,shoes and more here in [place], [employer] in [place] or [place]. Also can find in [place] in [facility]. Powersteps can also be purchased online, [...] fits well together documented in this encounter [facility] 10-24-2022 History of Presen t illness [...] 2022 9:10 AM documented in this encounter [facility] 05-17-2022 History of Presen t illness Narrative Virtual Psychiatric Visit 30 minutes with patient consent Patient Identification: WF many years from a 2 yr marriage, Retired [employer] 1998, no children. First dx Depression [facility] [id number] Moss and a therapist in [facility]. Tried Prozac (unclear response), Lexapro (worked -- switched to Cymbalta for pain). Saw [facility] Present Psychiatric Medications: Cymbalta 30 mg Wellbutrin XL 300 mg CC: medication follow up HPI: Aracely states she is doing well overall. Mood stable. Good interest and motivation. Eating and sleeping well. Overwhelmed at times when busy. Stressed with some issues at [employer] which is dying and may need to combine with another tenriism. Enjoys [employer] and [employer] study. Had a big family reunion recently which was busy but fun -- still has sisters staying with her. Medical health is very good -- has been able to discontinue some medications and has lost 40 lbs in past year. 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 Medication working well. [...] L4 & L5 . Dr Fraser in [place] PAST SURGICAL HISTORY OF 05/2009 gastric sleeve [...] in own home Vocational Situation: retired 1998 [facility] Support Systems: Brother, sisters, gf Leisure: volunteering, ipad, reading, TV, crafting Spiritual: Raised Jainism. Latter Day : denies FAMILY PSYCHIATRIC HISTORY: Brother with [...] Karoline Cervantes MD documented in this encounter [facility] 11-17-2021 History of Presen t illness Narrative Virtual Psychiatric Visit 30 minutes with patient consent Patient Identification: WF many years from a 2 yr marriage, Retired [employer] 1998, no children. First dx Depression [facility] [id number] Moss and a therapist in [facility]. Tried Prozac (unclear response), Lexapro (worked -- [...] and is feeling better. 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 Seeing a new counselor for a couple of sessions and feels it has brought up some important issues -- loss of best friend 10 yrs ago and missing the closeness of a relationship after end of last one. Very active at [employer]. Spends time with brother. Having family over [...] L4 & L5 . Dr Fraser in [place] PAST SURGICAL HISTORY OF 05/2009 gastric sleeve [...] in own home Vocational Situation: retired 1998 [facility] Support Systems: Brother, sisters, gf Leisure: volunteering, ipad, reading, TV, crafting Spiritual: Raised Jainism. Latter Day : denies FAMILY PSYCHIATRIC HISTORY: Brother with [...] Karoline Cervantes MD documented in this encounter [facility] 09-04-2013 History of Past i llness Narrative Problem Noted Date Resolved Date Cataract, left eye 09/04/2013 09/04/2013 Other and combined forms of senile cataract 02/1208/21/2013 Depression 09/07/2014 documented as of this encounter (statuses as of 11/17/2021) [facility] History of Past illness Narrative* Problem Noted Date Resolved Date Cataract, left eye 09/04/2013 09/04/2013 Other and combined forms of senile cataract 07/3 08/21/2013 Depression 09/07/2014 documented as of this encounter (statuses as of 03/15/2022) [facility] History of Past illness Narrative* Problem Noted Date Resolved Date Cataract, left eye 09/04/2013 09/04/2013 Other and combined forms of senile cataract 07/3 08/21/2013 Depression 09/07/2014 documented as of this encounter (statuses as of 03/20/2022) [facility] of Past illness Narrative* Problem Noted Date Resolved Date Cataract, left eye 09/04/2013 09/04/2013 Other and combined forms of senile cataract 07/3 08/21/2013 Depression 09/07/2014 documented as of this encounter (statuses as of 05/17/2022) [facility] of Past illness Narrative* Problem Noted Date Resolved Date Cataract, left eye 09/04/2013 09/04/2013 Other and combined forms of senile cataract 07/3 08/21/2013 Depression 09/07/2014 documented as of this encounter (statuses as of 10/12/2022) [facility] of Past illness Narrative* Problem Noted Date Diagnosed Date Resolved Date Cataract, left eye 09/04/2013 4 Other and combined forms of senile cataract 03/11/2013 08/21/2013 Depression 09/07/2014 documented as of this encounter (statuses as of 06/16/2023) [facility] of Past illness Narrative* Problem Noted Date Diagnosed Date Resolved Date Cataract, left eye 09/04/2013 4 Other and combined forms of senile cataract 03/11/2013 08/21/2013 Depression 09/07/2014 documented as of this encounter (statuses as of 11/17/2023) [facility] History of Past illness Narrative* Problem Noted Date Diagnosed Date Resolved Date Cataract, left eye 09/04/2013 4 Other and combined forms of senile cataract 03/11/2013 08/21/2013 Depression 09/07/2014 documented as of this encounter (statuses as of 11/16/2023) [facility]No [facility] Work Phone: Evaluation note* Diagnosis Recurrent major depressive disorder, in partial remission (HCC)- Primary documented in this encounter [facility] note* Diagnosis Recurrent major depressive disorder, in partial remission (HCC)- Primary documented in this encounter [facility] note* Diagnosis Onset Date Resolution Status Cyst of left breast acute [facility] Work Phone: Evaluation note* Diagnosis Foot pain, bilateral Pain in limb documented in this encounter [facility] note* Diagnosis Arthritis of foot Unspecified arthropathy, ankle and foot documented in this encounter [facility] note* Diagnosis Other diabetic neurological complication associated with type 2 diabetes mellitus (HCC)- Primary Arthritis of foot Unspecified arthropathy, ankle and foot Callus of foot Corns and callosities documented in this encounter [facility] for referral (narrative)* Diagnostic Procedure Only (Routine) - Closed Specialty Diagnoses / Procedures Referred By Contac t Referred To Contact XR IMAGING Diagnoses Foot pain, bilateral Procedures XR FOOT GENERAL 3V AP/LAT/OBL BILATERAL RADEX FOOT COMPLETE MINIMUM 3 VIEWS Aga Garcia[address] [place] [address] [place] [address] Referral ID Status Reason Start Date Expiration Date V isits Requested Visits Authorized [id number] Closed Auto-Generate d Referral 10/20/2022 11/19/2023 1 1 [facility] for referral (narrative)* Diagnostic Procedure Only (Routine) - Closed Specialty Diagnoses / Procedures Referred By Contac t Referred To Contact XR IMAGING Diagnoses Arthritis of foot Procedures XR FOOT GENERAL 3V AP/LAT/OBL LEFT RADEX FOOT COMPLETE MINIMUM 3 VIEWS Aga Garcia [address] [place] [address] [place] [address] Referral ID Status Reason Start Date Expiration Date V isits Requested Visits Authorized [id number] Closed Auto-Generate d Referral 11/16/2023 12/15/2024 1 1 [facility] for visit Narrative* Diagnostic Procedure Only (Routine) - Closed Specialty Diagnoses / Procedures Referred By Contac t Referred To Contact XR IMAGING Diagnoses Foot pain, bilateral Procedures XR FOOT GENERAL 3V AP/LAT/OBL BILATERAL RADEX FOOT COMPLETE MINIMUM 3 VIEWS TestAga harvey [address] [place] [address] [place] [address] Referral ID Status Reason Start Date Expiration Date V isits Requested Visits Authorized [id number] Closed Auto-Generate d Referral 10/20/2022 11/19/2023 1 1 [facility] for visit Narrative* Diagnostic Procedure Only (Routine) - Closed Specialty Diagnoses / Procedures Referred By Contac t Referred To Contact XR IMAGING Diagnoses Arthritis of foot Procedures XR FOOT GENERAL 3V AP/LAT/OBL LEFT RADEX FOOT COMPLETE MINIMUM 3 VIEWS TestraAga wood [address] [place] [address] [place] [address] Referral ID Status Reason Start Date Expiration Date V isits Requested Visits Authorized [id number] Closed Auto-Generate d Referral 11/16/2023 12/15/2024 1 1 [facility] Summary Purpose Family History No Family History Records Found Relationship Condition Age at Onset Recorded Date/T tracee mother Malignant neoplasm Unknown brother Cerebrovascular accident (CVA) Unknown Advance Directives No Advanced Directives Records Found Advance Directive Response Recorded Date/ Time Living Will No October 22, 2018 1:26pm Power of Tipple Boss No October 22 1:26pm Advance Directive Response Recorded Date/ Time Living Will No October 22, 2018 12:26pm Power of Tipple Boss No October 22 12:26pm Chief Complaint and [...] section and content) DATE CREATED AUTHOR 03/27/2018 [facility] DATE CREATED AUTHOR AUTHOR'S ORGANIZ ATKALYN 02/22/2019 [facility] ([place] DATE CREATED AUTHOR AUTHOR'S ORGANIZ ATION 11/22/2023 [facility] DATE CREATED AUTHOR AUTHOR'S ORGANIZ ATION 03/05/2025 [facility] Source Comments (unrecognize d section and content) In the event this informatio n is protected by the Federal Confidentiality of Alcohol and Drug Abuse Patient Records regulations: The Federal rules restrict any use of the information to criminally investigate or prosecute any alcohol or drug abuse patient.[facility] the event this information is protected by the Federal Confidentiality of Alcohol and Drug Abuse Patient Records regulations: The Federal rules restrict any use of the information to criminally investigate or prosecute any alcohol or drug abuse patient.[facility] the event this information is protected by the Federal Confidentiality of Alcohol and Drug Abuse Patient Records regulations: The Federal rules restrict any use of the information to criminally investigate or prosecute any alcohol or drug abuse patient.[facility] the event this information is protected by the Federal Confidentiality of Alcohol and Drug Abuse Patient Records regulations: The Federal rules restrict any use of the information to criminally investigate or prosecute any alcohol or drug abuse patient.[facility] the event this information is protected by the Federal Confidentiality of Alcohol and Drug Abuse Patient Records regulations: The Federal rules restrict any use of the information to criminally investigate or prosecute any alcohol or drug abuse patient.[facility] the event this information is protected by the Federal Confidentiality of Alcohol and Drug Abuse Patient Records regulations: The Federal rules restrict any use of the information to criminally investigate or prosecute any alcohol or drug abuse patient.[facility] the event this information is protected by the Federal Confidentiality of Alcohol and Drug Abuse Patient Records regulations: The Federal rules restrict any use of the information to criminally investigate or prosecute any alcohol or drug abuse patient.[facility] Reason for Visit (unrecogniz ed section [...] BE BASED ON THE PRIMARY CLINICAL RECORDS. [employer] provides no warranty or guarantee of the accuracy or completeness of information in this document.
[2025-03-06 05:07] LABS: Hematocrit 35.4 % (37-47); Hemoglobin 11.4 g/dL (12.0-15.0); Immature Granulocytes Count 0.040 X10^3/uL (0.0-0.0); Mean Corp Hgb Conc 32.2 g/dL (32-36); Mean Corpuscular Volume 84.7 fL (81-99); Mean Platelet Vol. 9.4 fl (6.2-12.0); NRBC Flagged by Analyzer 0 % (0-5); Platelet Count 328 K/mm3 (150-450); RBC Distribution Width CV 15.1 % (11.6-14.6); RBC Distribution Width SD 46.5 fl (35.1-43.9); Red Blood Count 4.18 M/mm3 (4.2-5.4); White Blood Count 10.5 K/mm3 (4.4-11.0)
[2025-03-06 05:42] LABS: AST(SGOT) 19 U/L (<=31); Alanine Aminotransfer ALT/SGPT 20 U/L (<=34); Albumin, Serum 3.9 g/dL (3.4-4.8); Alkaline Phosphatase 65 U/L (35-104); Anion Gap 12 (5-15); BUN 17 mg/dL (4-19); BUN/Creat Ratio 18.7 RATIO (10-20); Calcium,Total 9.1 mg/dL (7.6-11.0); Carbon Dioxide 25.1 mmol/L (21.0-32.0); Chloride 103 mmol/L (98-108); Estimated Creatinine Clearance 59.46 ml/min (50-250); Globulin 2.3 g/dL (2.2-4.2); Glucose 126 mg/dL (70-99); Potassium 4.2 mmol/L (3.3-5.1)
[2025-03-06] MEDS: buPROPion (XL) 150 MG TABLET.XL PO (09:33)
[2025-03-06] MEDS: buPROPion (XL) 300 MG TABLET.XL PO (09:33)
--- NOTE | 2025-03-06 15:01 | CASEMGMT ---
Met with patient to complete OCHOA form. OCHOA form and its content were verbally explained and patient's questions were answered to the best of my ability.? Patient voiced understanding and signed OCHOA form.? Patient provided a copy of signed OCHOA form and original placed in patient's chart.? Patient had no further questions. Mell Sandoval, Discharge Planning Asst
--- NOTE | 2025-03-06 15:30 | CASEMGMT ---
NADER TOLEDO into pt room, pt states she needs to go to SNF as she is causing too much stress on her brother in which she lives with by falling at home. Pt sister present and states pt can not return home. Pt states she was just recently in [facility] and received a bill. She has questions regarding the cost of a stay should she go to a SNF again. Patient was provided a list of SNF providers including quality and resource use data and consistent with the patient?s preferred geographic region, medical needs, and insurance network were provided from the [employer] Guide. Pt to review. NADER TOLEDO spoke with SW and requested she meet with pt regarding further questions.
[2025-03-06 15:53] LABS: Mucous, Urine 0 SEEN /hpf (<or=2+)
--- NOTE | 2025-03-06 16:07 | CASEMGMT ---
Addendum entered by Aster Alatorre 03/06/25 17:01: TCU accepted. Pt and sister updated. Discharge anticipated for weekend. LOPEZ Wallace Original Note: Social Work- SW met with pt and sister. SW provided education on MCR benefit. Pt selectes TCU as FOC. SW completed referral. SW remains available to follow. LOPEZ Wallace
[2025-03-06] MEDS: hydrOXYzine PAM 25 MG Capsule 50 MG PO (16:21)
[2025-03-06 17:14] LABS: Color, Urine Yellow (Yellow); Glucose, Dipstick 1000 mg/dl (Normal); Ketone-Dipstick Negative (Negative); Leukocyte Esterase-Dipstick 25 /ul (Negative); Nitrite-Dipstick Negative (Negative); Occult Blood-Urine Negative /ul (Negative); Protein-Dipstick Negative (Negative); Specific Gravity, Urine 1.010 (1.002-1.030); Urine Bilirubin Dipstick Negative (Negative)
[2025-03-06 17:37] LABS: Red Blood Cells-Urine 0-5 SEEN /hpf (0-5); Squamous Epithelial Cells - UA 0-5 SEEN /hpf (5-10)
--- NOTE | 2025-03-06 18:25 | PCM.PN.HOSP ---
Reason for Visit Chief Complaint: Frequent falls, debility. Subjective Subjective 1. Generalized debility-patient will be seen by PT and OT she will need placement in longterm facility for inpatient rehab services, TCU has agreed to take the patient #2 type 2 diabetes-patient is on sliding scale insulin with Accu-Cheks #3 Parkinson's disease-complicates care, management, recovery, and prognosis #4 hyperlipidemia-patient will remain on a statin #5 hypothyroidism-patient is on Synthroid #6 chronic kidney disease stage IIIa-labs will be monitored as necessary #7 gastroesophageal reflux disease-patient is on a PPI Total clinical time spent by myself addressing the patient's medical issues, reviewing all of her data, and collaborating with patient's care team: 35-minute Objective Data Objective Data Vital Signs: Vital Signs Temp Pulse Resp BP Pulse Ox O2 Del Method 98.1 F 71 18 116/63 97 Room Air 03/06/25 14:22 03/06/25 14:22 03/06/25 14:22 03/06/25 14:22 03/06/25 14:22 03/06/25 14:22 Oxygen Delivery Method Room Air Weight: 84.9 kg Body Mass Index (BMI) 28.0 Intake & Output: Intake and Output for Last 24 Hours 03/04/25 03/05/25 03/06/25 23:59 23:59 23:59 Intake Total Balance Lab / Micro Data 03/06/25 04:48 03/06/25 04:48 Labs: Laboratory Results - last 24 hr 03/05/25 22:58: WBC 8.0, RBC 4.37, Hgb 11.8 L, Hct 36.6 L, MCV 83.8, MCH 27.0, MCHC 32.2, RDW Std Deviation 45.5 H, RDW Coeff of Alivia 15.0 H, Plt Count 351, MPV 9.8, Immature Gran % (Auto) 0.400, Neut % (Auto) 61.7, Lymph % (Auto) 24.4, Wagoner % (Auto) 9.0, Eos % (Auto) 4.0, Baso % (Auto) 0.5, Absolute Neuts (auto) 4.9, Absolute Lymphs (auto) 1.94, Nucleated RBC % 0, Sodium 138, Potassium 4.8, Chloride 101, Carbon Dioxide 19.2 L, Anion Gap 17 H, BUN 19, Creatinine 1.12, Estim Creat Clear Calc 48.52 L, Est GFR (MDRD) Non-Af 50 L, BUN/Creatinine Ratio 17.0, Glucose 331 H, Calcium 9.5, Magnesium 1.8, Total Bilirubin 0.23, AST 19, ALT 20, Alkaline Phosphatase 66, Total Protein 6.1, Albumin 3.6, Globulin 2.5, Albumin/Globulin Ratio 1.4, b-Hydroxybutyric mmol/L 0.2 03/06/25 04:48: WBC 10.5, RBC 4.18 L, Hgb 11.4 L, Hct 35.4 L, MCV 84.7, MCH 27.3, MCHC 32.2, RDW Std Deviation 46.5 H, RDW Coeff of Alivia 15.1 H, Plt Count 328, MPV 9.4, Immature Gran % (Auto) 0.400, Neut % (Auto) 64.2, Lymph % (Auto) 23.4, Wagoner % (Auto) 8.6, Eos % (Auto) 3.0, Baso % (Auto) 0.4, Absolute Neuts (auto) 6.8, Absolute Lymphs (auto) 2.46, Nucleated RBC % 0, Sodium 140, Potassium 4.2, Chloride 103, Carbon Dioxide 25.1, Anion Gap 12, BUN 17, Creatinine 0.89, Estim Creat Clear Calc 59.46, Est GFR (MDRD) Non-Af 66, BUN/Creatinine Ratio 18.7, Glucose 126 H, Calcium 9.1, Total Bilirubin 0.30, AST 19, ALT 20, Alkaline Phosphatase 65, Total Protein 6.2, Albumin 3.9, Globulin 2.3, Albumin/Globulin Ratio 1.7 03/06/25 06:23: POC Glucose 122 H 03/06/25 11:31: POC Glucose 257 H 03/06/25 15:25: Urine Color Yellow, Urine Clarity Clear, Urine pH 6.0, Ur Specific Bronson 1.010, Urine Protein Negative, Urine Glucose (UA) 1000 H, Urine Ketones Negative, Urine Occult Blood Negative, Urine Nitrite Negative, Urine Bilirubin Negative, Urine Urobilinogen Normal, Ur Leukocyte Esterase 25 H, Urine RBC 0-5 SEEN, Urine WBC 5-10 SEEN, Ur Squamous Epith Cells 0-5 SEEN, Urine Bacteria 1+, Urine Mucus 0 SEEN 03/06/25 16:19: POC Glucose 165 H Radiography Diagnostic Testing: Radiology Impression Brain CT 03/05/25 22:49 IMPRESSION: No acute intracranial abnormality. Senescent changes. Reading Location: [facility] Cervical Spine CT 03/05/25 22:49 IMPRESSION: No acute osseous abnormality of the cervical spine. Multilevel degenerative changes are worst at C4-5 and C5-6. Reading Location: [facility] Lumbar Spine CT 03/05/25 22:49 IMPRESSION: Acute mid sacral fracture. Reading Location: [place] [address] Hip/Pelvis X-Ray 03/05/25 23:30 IMPRESSION: No acute injury noted. Reading Location: [place] [address]
[2025-03-07 03:17] VITALS: BMI 28.4
[2025-03-07 07:00] VITALS: BP 153/57; PULSE 68; RESP 16; TEMP 36.7; O2SAT 100
[2025-03-07 07:39] VITALS: O2SAT 96
--- NOTE | 2025-03-07 07:58 | PCM.TXEXTCAR ---
Diet Diet Order/Speech Therapy: INPATIENT Hospital Diet / Speech Therapy Order(s) 03/06/25 01:34 Diet: Consistent Carb - Calorie Controlled Food consistency:: Regular Liquid Consistency:: Regular/Thin Dietary Modifications:: No Added Salt How many daily calories?: 1800 calorie Routine Orders/Code Status Code Status: DNRCC-A (no intubation) DC O2, CPAP, BIPAP needs Home O2 Discharge instructions: No Therapies Weight Bearing: Full weight bearing Physical Therapy: Eval and Treat Occupational Therapy: Eval and Treat Problem/Diagnosis (1) Sacral fracture: Status: Acute Code(s): S32.10XA - Unspecified fracture of sacrum, initial encounter for closed fracture (2) Frequent falls: Status: Acute Code(s): R29.6 - Repeated falls Plan 1. Generalized debility-patient will be seen by PT and OT she will need placement in assisted facility for inpatient rehab services, TCU has agreed to take the patient #2 type 2 diabetes-patient is on sliding scale insulin with Accu-Cheks #3 Parkinson's disease-complicates care, management, recovery, and prognosis #4 hyperlipidemia-patient will remain on a statin #5 hypothyroidism-patient is on Synthroid #6 chronic kidney disease stage IIIa-labs will be monitored as necessary #7 gastroesophageal reflux disease-patient is on a PPI Allergies/Procedures Done in Hospital Allergies Opioids - Morphine Analogues Allergy (Verified 03/05/25 22:37) Rash adhesive tape Adverse Reaction (Unknown, Verified 03/05/25 22:37) Rash tramadol (From Ultram) Adverse Reaction (Verified 03/05/25 22:37) Itching Type of Care/Length of Stay Estimated LOS: Convalescent Care Less Than 30 days Type of Care Needed: Skilled Rehab Potential: Good Prognosis: Good Additional Orders/Day of Discharge Day of Discharge: 03/07/25 Dietary and Speech Recommendations Dietitian Recommendations/Changes: Change diet to 1800 harjit Consistent CHO/ No Added Salt diet d/t hx CKD3, Continue to follow and monitor for changes in pt nutritional status and make additional rec/assess [facility], pending po intake/wt trends. Discharge Plan Admission Admit Date/Time: 03/06/25 00:23 Primary Reason for Your Visit: Generalized debility, Parkinson's disease, type 2 diabetes Attending Provider: Juan Jose Marrero Primary Care Provider: Sumit Whipple [employer] Providers: Sanna Elaine Discharge Orders/Prescriptions Prescriptions: New nystatin 100,000 unit/gram Powder 1 applic topical BID Qty: 0 0RF Protocol: *Topical Application Instructions APPLICATION INSTRUCTIONS: abdominal and groin folds Artificial Tears([id number]) 1-0.2-0.2 % Drops 2 drp EACH EYE Q1H PRN (Reason: DRY EYES) Qty: 0 0RF Continued levothyroxine 100 mcg tablet 100 mcg PO QDAY rosuvastatin 40 mg tablet 40 mg PO QDAY hydroxyzine HCl 50 mg tablet 50 mg PO Q6H PRN (Reason: anxiety) d-mannose 500 mg capsule 500 mg PO .QD ascorbic acid (vitamin C) 500 mg tablet 500 mg PO QDAY docusate sodium 100 mg capsule 100 mg PO BID Caltrate 600 plus D 600 mg-20 mcg (800 unit) tablet,chewable 1 tab PO QAM carbidopa-levodopa 25-100 mg tablet 1 tab PO TID bupropion HCl 300 mg tablet extended release 24 hr 300 mg PO QDAY Qty: 90 1RF Rx Instructions: take in addition to 300mg tablet for 450mg total buspirone 5 mg tablet 5 mg PO BID Qty: 180 1RF bupropion HCl 150 mg tablet extended release 24 hr 150 mg PO QAM Qty: 90 1RF Rx Instructions: take in addition to 300mg tablet for 450mg total pantoprazole 40 MG tablet 40 mg PO DAILY metformin 1,000 mg tablet 1,000 mg PO BID magnesium oxide 500 mg capsule 500 mg PO QDAY acetaminophen 500 mg tablet 500 mg PO Q8H PRN (Reason: PAIN) duloxetine 60 mg capsule,delayed release(DR/EC) 60 mg PO DAILY sertraline 50 mg tablet 25 mg PO QDAY Rx Instructions: Take 0.5 tablet daily for 14 days then take 1 tablet daily thereafter pregabalin 75 mg capsule 75 mg PO TID 3 Days Qty: 9 0RF fludrocortisone 0.1 mg Tablet 0.1 mg PO BREAKFAST Qty: 30 2RF diphenhydramine HCl [Benadryl] 25 mg capsule 25 mg PO BID PRN PRN (Reason: itching) Qty: 20 0RF Rx Instructions: Take if being given oxycodone to avoid side effects of itching. Discontinued midodrine 10 mg tablet 15 mg PO TID Referrals / Follow Up: Sumit Whipple Chi, MD [Primary Care Provider] - Disposition Disposition (needs filled in before D/C Order can be placed): [facility]
--- NOTE | 2025-03-07 08:08 | PCM.DC.SUM ---
Providers Date of Admission: 03/06/25 Date of Discharge: 03/07/25 Primary Care Physician: Dr. Sumit Whipple MD Reason For Visit: FREQUENT FALLS, DEBILITY, ADULT FTT Diagnosis Discharge Diagnosis (1) Sacral fracture: Status: Acute Code(s): S32.10XA - Unspecified fracture of sacrum, initial encounter for closed fracture (2) Frequent falls: Status: Acute Code(s): R29.6 - Repeated falls Plan 1. Generalized debility-patient will be seen by PT and OT she will need placement in assisted facility for inpatient rehab services, TCU has agreed to take the patient #2 type 2 diabetes-patient is on sliding scale insulin with Accu-Cheks #3 Parkinson's disease-complicates care, management, recovery, and prognosis #4 hyperlipidemia-patient will remain on a statin #5 hypothyroidism-patient is on Synthroid #6 chronic kidney disease stage IIIa-labs will be monitored as necessary #7 gastroesophageal reflux disease-patient is on a PPI Medications at Discharge Home Medications pantoprazole 40 mg tablet,delayed release 40 mg PO DAILY GERD 10/22/18 levothyroxine 100 mcg tablet 100 mcg PO QDAY thyroid 12/10/23 rosuvastatin 40 mg tablet 40 mg PO QDAY HLD 12/10/23 ascorbic acid (vitamin C) 500 mg tablet 500 mg PO QDAY vitamin 05/21/24 calcium 600 mg (as carbonate)-vit D3 20 mcg (800 unit) chewable tablet (Caltrate plus D) 1 tab PO QAM supplement 05/21/24 d-mannose 500 mg capsule 500 mg PO .QD spasms 05/21/24 Held on 03/07/25. Instructions: Dr. Whipple requested hold while admitted docusate sodium 100 mg capsule 100 mg PO BID stool softner 05/21/24 hydroxyzine HCl 50 mg tablet 50 mg PO Q6H PRN anxiety 05/21/24 magnesium oxide 500 mg capsule 500 mg PO QDAY SUPPLEMENT 05/21/24 metformin 1,000 mg tablet 1,000 mg PO BID DM 05/21/24 acetaminophen 500 mg tablet 500 mg PO Q8H PRN PAIN 06/11/24 fludrocortisone 0.1 mg tablet 0.1 mg PO BREAKFAST aide #30 tabs 10/17/24 diphenhydramine HCl 25 mg capsule (Benadryl) 25 mg PO BID PRN PRN itching #20 caps 11/14/24 bupropion HCl 300 mg 24 hr tablet, extended release 300 mg PO QDAY depression #90 tabs 12/03/24 carbidopa 25 mg-levodopa 100 mg tablet 1 tab PO TID Parkinsons 12/03/24 bupropion HCl 150 mg 24 hr tablet, extended release 150 mg PO QAM mood #90 tabs 12/26/24 buspirone 5 mg tablet 5 mg PO BID mood #180 tabs 12/26/24 duloxetine 60 mg capsule,delayed release 60 mg PO DAILY mood 03/05/25 sertraline 50 mg tablet 25 mg PO QDAY mood 03/05/25 nystatin 100,000 unit/gram topical powder 1 applic topical BID Skin #0 grams 03/07/25 peg [id number] 1 %-0.2 %-0.2 % eye drops (Artificial Tears ([id number])) 2 drp EACH EYE Q1H PRN DRY EYES #0 mL 03/07/25 pregabalin 75 mg capsule 75 mg PO TID Nerve pain 3 days #9 caps 03/07/25 Hospital Course Operations None Procedures None Summary of Care Provided Minutes Spent on Discharge: 31 Hospital Course: This 79-year-old white female was brought into the emergency room at [facility] by her family due to inability to perform ADLs at home and generalized weakness. Patient has a history of Parkinson's disease. Patient was placed in observation status on [facility] 3 and seen by PT OT, family and the patient agreed for temporary placement at a assisted facility for inpatient skilled services. On 03/07/2025, patient was seen and examined: On examination she appeared in good health and spirits, she does not appear to be in any distress. Vital signs as documented. Skin warm and dry and without overt rashes. Neck without JVD, thyroid appears normal, trachea is midline, neck is supple. Lungs clear, normal air movement was noted. Heart exam notable for regular rhythm, normal sounds and absence of murmurs, rubs or gallops. Abdomen unremarkable and without evidence of organomegaly, masses, or abdominal aortic enlargement, bowel sounds are present in all 4 quadrants, no abdominal tenderness was noted. Extremities nonedematous, no cyanosis was noted, no clubbing was noted. Neuro: Cranial nerves II through XII are grossly intact, no focal motor deficits were noted, sensation to light touch and pinprick is intact, motor exam 5/5 throughout. Psych: Patient is alert and oriented x3, she does not appear anxious or depressed, she does not appear agitated. Patient appears stable for discharge to a assisted facility on 03/07/2025. Weight / BMI Weight Weight: 86.1 kg Body Mass Index (BMI) 28.4 ABG / Lab / Microbiology Data 03/06/25 04:48 03/06/25 04:48 Laboratory: Laboratory Results - last 24 hr 03/06/25 11:31: POC Glucose 257 H 03/06/25 15:25: Urine Color Yellow, Urine Clarity Clear, Urine pH 6.0, Ur Specific [place] 1.010, Urine Protein Negative, Urine Glucose (UA) 1000 H, Urine Ketones Negative, Urine Occult Blood Negative, Urine Nitrite Negative, Urine Bilirubin Negative, Urine Urobilinogen Normal, Ur Leukocyte Esterase 25 H, Urine RBC 0-5 SEEN, Urine WBC 5-10 SEEN, Ur Squamous Epith Cells 0-5 SEEN, Urine Bacteria 1+, Urine Mucus 0 SEEN 03/06/25 16:19: POC Glucose 165 H 03/06/25 21:51: POC Glucose 181 H 03/07/25 06:48: POC Glucose 164 H D/C Instructions DC O2, CPAP, BIPAP Needs Home O2 Discharge instructions: No Meaningful Use Info Meaningful Use Meaningful Use Diagnoses (Choose all that apply): None applicable Discharge Plan Admission Admit Date/Time: 03/06/25 00:23 Primary Reason for Your Visit: Generalized debility, Parkinson's disease, type 2 diabetes Attending Provider: Juan Jose Marrero Primary Care Provider: Sumit Whipple [employer] Providers: Sanna Elaine Discharge Orders/Prescriptions Prescriptions: New nystatin 100,000 unit/gram Powder 1 applic topical BID Qty: 0 0RF Protocol: *Topical Application Instructions APPLICATION INSTRUCTIONS: abdominal and groin folds Artificial Tears([id number]) 1-0.2-0.2 % Drops 2 drp EACH EYE Q1H PRN (Reason: DRY EYES) Qty: 0 0RF Continued levothyroxine 100 mcg tablet 100 mcg PO QDAY rosuvastatin 40 mg tablet 40 mg PO QDAY hydroxyzine HCl 50 mg tablet 50 mg PO Q6H PRN (Reason: anxiety) d-mannose 500 mg capsule 500 mg PO .QD ascorbic acid (vitamin C) 500 mg tablet 500 mg PO QDAY docusate sodium 100 mg capsule 100 mg PO BID Caltrate 600 plus D 600 mg-20 mcg (800 unit) tablet,chewable 1 tab PO QAM carbidopa-levodopa 25-100 mg tablet 1 tab PO TID bupropion HCl 300 mg tablet extended release 24 hr 300 mg PO QDAY Qty: 90 1RF Rx Instructions: take in addition to 300mg tablet for 450mg total buspirone 5 mg tablet 5 mg PO BID Qty: 180 1RF bupropion HCl 150 mg tablet extended release 24 hr 150 mg PO QAM Qty: 90 1RF Rx Instructions: take in addition to 300mg tablet for 450mg total pantoprazole 40 MG tablet 40 mg PO DAILY metformin 1,000 mg tablet 1,000 mg PO BID magnesium oxide 500 mg capsule 500 mg PO QDAY acetaminophen 500 mg tablet 500 mg PO Q8H PRN (Reason: PAIN) duloxetine 60 mg capsule,delayed release(DR/EC) 60 mg PO DAILY sertraline 50 mg tablet 25 mg PO QDAY Rx Instructions: Take 0.5 tablet daily for 14 days then take 1 tablet daily thereafter pregabalin 75 mg capsule 75 mg PO TID 3 Days Qty: 9 0RF fludrocortisone 0.1 mg Tablet 0.1 mg PO BREAKFAST Qty: 30 2RF diphenhydramine HCl [Benadryl] 25 mg capsule 25 mg PO BID PRN PRN (Reason: itching) Qty: 20 0RF Rx Instructions: Take if being given oxycodone to avoid side effects of itching. Discontinued midodrine 10 mg tablet 15 mg PO TID Referrals / Follow Up: Sumit Whipple Chi, MD [Primary Care Provider] - Disposition Disposition (needs filled in before D/C Order can be placed): Longterm Facility Charges/Coding Visit Charges Inpatient E&M: 78641 Disch Hosp >30min
--- NOTE | 2025-03-07 08:29 | CASEMGMT ---
Social Work Green sheet given to community facilitator to follow as pt d/c to TCU today. JOVANY Gomez
[2025-03-07] MEDS: buPROPion (XL) 300 MG TABLET.XL PO (09:27)
[2025-03-07] MEDS: buPROPion (XL) 150 MG TABLET.XL PO (09:29)
[2025-03-07] MEDS: Glucerna Shake 120 ML LIQUID PO (09:34)
[2025-03-07 09:41] VITALS: BP 142/71; PULSE 72; RESP 16; TEMP 36.4; O2SAT 99
[2025-03-07 14:25] VITALS: BP 144/63; PULSE 70; RESP 18; TEMP 36.4; O2SAT 98
--- NOTE | 2025-03-07 14:47 | NURSING ---
Report called to Maribel on TCU.
== END 2025-03-07 15:40 | disposition skilled nursing facility (03) ==
LOC: ED 03-06 00:07 → MS3 03-06 00:33
PROVIDERS: Admitting Provider Family Medicine; Emergency Provider Emergency Medicine; PCP Family Medicine Geriatric Medicine; Referring Provider Emergency Medicine; Visit Provider Internal Medicine
DX: R29.6 Repeated falls (principal); G20.A1 Parkinson's disease without dyskinesia, without mention of fluctuations; S32.10XA Unspecified fracture of sacrum, initial encounter for closed fracture; E11.22 Type 2 diabetes mellitus with diabetic chronic kidney disease; N18.31 Chronic kidney disease, stage 3a; G47.33 Obstructive sleep apnea (adult) (pediatric); I95.1 Orthostatic hypotension; R53.1 Weakness; E78.5 Hyperlipidemia, unspecified; K21.9 Gastro-esophageal reflux disease without esophagitis; R26.81 Unsteadiness on feet; R53.81 Other malaise; E03.9 Hypothyroidism, unspecified; F41.9 Anxiety disorder, unspecified; Z79.890 Hormone replacement therapy; W19.XXXA Unspecified fall, initial encounter; Z79.899 Other long term (current) drug therapy; Z79.84 Long term (current) use of oral hypoglycemic drugs; F32.A Depression, unspecified; L30.4 Erythema intertrigo; D64.9 Anemia, unspecified
CPT/HCPCS: 36415; 70450; 72125; 72131; 73502; 80053; 81001; 82010; 82962; 83735; 85025; 94668; 96360; 96361; 97162; 97166; 97530; 97535; 97802; 99221; 99285; A4216; G0378

== ENCOUNTER 2025-03-07 16:03 | Inpatient (IN) | payer MEDICARE, BC, SELFPAY ==
[2025-03-07 16:23] VITALS: BP 156/71; PULSE 70; RESP 18; TEMP 36.1; O2SAT 94
--- OUTSIDE RECORDS SUMMARY | 2025-03-07 16:25 | XMS RPT_ITS | CCD ---
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 Sumit Hansen Primary Care Provider Sarabjit, Dr. Sumit Hansen Referring Provider Dr. Mikayla Dukes Attending Provider Unavailable Primary Care Provider Unavailabl e Sarabjit, Dr. Sumit Hansen Primary Care Provider Sarabjit, Dr. Sumit Hansen Referring Provider Dr. Mikayla Dukes Attending Provider [phone] AGA GARCIA Referring Unavailable AGA GARCIA Attending Unavailable Oleghe OLS Efewongbe Attending Unavailabl e Oleghe OLS, Efewongbe Referring Unavailabl e Sarabjit, Sumit Chi Primary Care Unavailable Sarabjit, Sumit Chi Primary Care Unavailable Oleghe OLSVegaongbe Attending Unavailabl e Sarabjit, Sumit Chi Primary Care Unavailable Oleghe OLS, Efewongbe Attending Unavailabl e Oleghe OLS, Efewongbe Attending Unavailabl e Sarabjit, Sumit Chi Primary Care Unavailable Sarabjit, Sumit Chi Primary Care Unavailable Glen Mccray Admitting Unavailable Glen Mccray Consulting Unavailable Silvino Lopez Attending Unavailable Sarabjit, Sumit Chi Primary Care Unavailable Koram, Syeda Kirstin Attending Unavailable Andi White Consulting Unavailable WhiteAndi Admitting Unavailable Koram, Syeda Kirstin Consulting Unavailable Sarabjit, Sumit Chi Primary Care Unavailable Sarabjit, Sumit Chi Attending Unavailable Sarabjit, Sumit Chi Referring Unavailable Sarabjit, Sumit Chi Attending Unavailable Sarabjit, Sumit Chi Referring Unavailable Sarabjit, Sumit Chi Primary Care Unavailable Sarabjit, Sumit Chi Primary Care Unavailable Christina Wolff Attending Unavailable Sarabjit, Sumit Chi Primary Care Unavailable Oleghe OLS Efewongbe Attending Unavailabl e Sarabjit, Sumit Chi Attending Unavailable Sarabjit, Sumit Chi Primary Care Unavailable Sarabjit, Sumit Chi Primary Care Unavailable Sarabjit, Sumit Chi Attending Unavailable Sarabjit, Sumit Chi Referring Unavailable Tanya Joshi Consulting Unavailable Sarabjit, Sumit Chi Attending Unavailable Sarabjit, [...] Sumit Chi Primary Care Unavailable Glen Steven Referring Unavailable PraMarilu lanes Attending Unavailable Sarabjit, Sumit Chi Attending Unavailable Sarabjit, Sumit Chi Referring Unavailable Sarabjit, Sumit Chi Primary Care Unavailable Sarabjit, Sumit Chi Primary Care Unavailable White, Sanna L Admitting Unavailable White, Sanna L Consulting Unavailable Juan Jose Marrero Attending Unavailable Reodica, Connor Referring Unavailable Sarabjit, Sumit Chi Primary Care Unavailable Ynes Syeda Kirstin Attending Unavailable White, Andi Consulting Unavailable White, Andi Admitting Unavailable Koram, Syeda Kirstin Consulting Unavailable Juanito Saavedra Consulting Unavailable Sarabjit, Sumit Chi Primary Care Unavailable Oleghe ALEXEY Efewongbe Attending Unavailabl e Sarabjit, Sumit Chi Primary Care Unavailable Collette Nieves Attending Unavailable Sarabjit, Sumit Chi Primary Care Unavailable Oleghe, Efewongbe Attending Unavailable Sarabjit, Sumit Chi Primary Care Unavailable Kamla Ward NP Attending Unavailable Sarabjit, Sumit Chi Primary Care Unavailable gM Jiang Attending Unavailable Sarabjit, Sumit Chi Referring Unavailable Sarabjit, Sumit Chi Primary Care Unavailable Collette Nieves Attending Unavailable Sarabjit, Sumit Chi Primary Care Unavailable Oleghe, Efewongbe Attending Unavailable Sarabjit, Sumit Chi Primary Care Unavailable White, Sanna L Admitting Unavailable White, Sanna L Consulting Unavailable White, Sanna L Attending Unavailable Reodica, Connor Referring Unavailable Mostlaura, Juanito Consulting Unavailable Sarabjit, Sumit Chi Primary Care Unavailable Glen Mccray Consulting Unavailable Glen Mccray Admitting Unavailable Silvino Lopez Attending Unavailable Silvino Lopez Consulting Unavailable Glen Mccray Attending Unavailable Christina Wolff Attending Unavailable Sarabjit, Sumit Chi Primary Care Unavailable Nieves Collette Attending Unavailable Sarabjit, Sumit Chi Primary Care Unavailable Sarabjit, Sumit Chi Primary Care Unavailable Nieves, Collette Attending Unavailable Sarabjit, Sumit Chi Primary Care Unavailable Nieves, Collette Attending Unavailable Sraabjit, Sumit Chi Primary Care Unavailable Nieves, Collette Attending Unavailable Sarabjit, Sumit Chi Primary Care Unavailable Nieves, Collette Attending Unavailable Sarabjit, Sumit Chi Primary Care Unavailable Kamla Ward NP Attending Unavailable Sarabjit, Sumit Chi Primary Care Unavailable Andi White Attending Unavailable Juanito Saavedra Attending Unavailable Asrabjit, Sumit Chi Attending Unavailable Sarabjit, Sumit Chi Primary Care Unavailable Sarabjit, Sumit Chi Referring Unavailable Sarabjit, Sumit Chi Primary Care Unavailable Zack Zamudio Attending Unavailable Allergies Allergy Classification Reported Allergen(s) Allergy Type Date of Onset Reaction(s) Facility (10 sources) acetaminophen / oxyCODONE; Translations: [OXYCODONE-ACETAM INOPHEN] Drug Allergy 1 Itching [facility] Repository (10 sources) omeprazole; Translations: [OMEPRAZOLE] Drug Allergy 3 Intolerance [facility] Repository (10 sources) tapentadol; Translations: [TAPENTADOL] Drug Allergy 2 GI Upset [facility] Repository (10 sources) traMADol; Translations: [TRAMADOL HCL] Drug Allergy 1 Itching [facility] Repository (13 sources) Opioids - Morphine Analogues; Translations: [Opioids - Morphine Analogues] Allergy to substance 9 [facility] (8 sources) Adhesive Tape; Translations: [adhesive tape] Propensity to adverse reactions 3 [facility] (1 source) traMADol Drug Allergy 5 Repository Medications Current Medications Medication Drug Class(es) [...] Start: 04-30-2015 take 1 tablet by malik th once daily Magnesium Oxide 500 mg ORAL Tab Take 500 mg by mouth once daily. 0 04/30/2015 Active Comment on above: Take 500 mg by mouth once daily. [place]-3 Fatty Acids-Fish Oil (12 sources) Start: 10-22-2018 [place]-3 Fatty Acids-Fish Oil Active 1 EACH PO DAILY October 22, 2018 1:15pm Start: 10-22-2018 End: 08-29-2022 [place]-3 Fatty Acids-Fish Oil Discontinued 1 EACH PO DAILY October 22, 2018 12:00am August 29, 2022 10:45am Start: 10-22-2018 End: 08-29-2022 [place]-3 Fatty Acids-Fish Oil Discontinued 1 EACH PO DAILY October 21, 2018 11:00pm August 29, 2022 9:45am Start: 10-22-2018 [place]-3 Fatty Acids-Fish Oil Active 1 EACH PO DAILY October 21, 2018 11:00pm Start: 10-22-2018 [place]-3 Fatty Acids-Fish Oil Active 1 EACH PO [...] on above: Take 1 capsule by [facility] three times daily. Turmeric Root Extract [...] Comment on above: [facility] betamethasone 0.5 mg/ml / clotrimazole [...] Take 1 tablet by malik once daily. take 1 tablet by malik once daily calcium citrate 1500 mg / [...] Take 1 tablet by malik twice daily as needed. diclofenac sodium 0.01 [...] on above: take 1 capsule by mo [facility] once daily Take 1 capsule by mo [facility] once daily. escitalopram 10 mg oral tablet [...] oral tablet (2 sources) Antihistamine Start: 10-16-19 take 1 tablet by mouth every six [...] (20 sources) Proton Pump Inhibitor Start: 10-23-19 19 take 1 tablet by mouth once daily pantoprazole DR (PROTONIX) 40 mg tablet Indications: Heartburn Take 1 tablet by mouth once daily. 90 tablet 2 05/04/2020 Active Comment on above: Take 1 tablet by malik th once daily. potassium gluconate 2.5 meq oral tablet (20 sources) Start: 07-13-20 08 End: 08-29-19 23 take 99 mg by [...] 1 tablet by malik th once daily. Problems Active Problems Problem Classification [...] [Pain in right foot] 10-24-2022 Episodic Other connective tissue disease (1 source) Repeated falls; Translations: [Repeated falls] Onset: 03-07-2025 Episodic Other fractures (1 source) Unspecified fracture of sacrum, initial encounter for closed fracture; Translations: [Unspecified fracture of sacrum, initial encounter for closed fracture] Onset: 03-07-2025 Episodic Other injuries and conditions due to [...] Test Name Value Interpretation Reference Range Facility Bedside Glucoseon 03-07-2025 [facility] GLU 164 mg/dL High [address] [place] [address] Comment on above: Result Comment: GILDA GEMENT OF PATIENT CARE PER NURSING PROTOCOL Performed By: #### L 501.080 #### [address] [facility] [address] Bedside Glucoseon 03-06-2025 FINGERSTICK GLU 181 mg/dL High -106 Comment on above: Result Comment: GILDA GEMENT OF PATIENT CARE PER NURSING PROTOCOL Performed By: #### L 501.080 #### [address] [facility] [address] FINGERSTICK GLU 165 mg/dL High [address] [place] [address] Comment on above: Result Comment: GILDA GEMENT OF PATIENT CARE PER NURSING PROTOCOL Performed By: #### L 501.080 #### [address] [facility] [address] FINGERSTICK GLU 257 mg/dL High -106 Comment on above: Result Comment: GILDA GEMENT OF PATIENT CARE PER NURSING PROTOCOL Performed By: #### L 501.080 #### [address] [place], [address] FINGERSTICK GLU 122 mg/dL High 74-106 Comment on above: Result Comment: GILDA CLINE OF PATIENT CARE PER NURSING PROTOCOL Performed By: #### L 501.080 #### [address] [place], [address] Beta-Hydroxbytyrateon 2024 BETA-HYDROXYBUT 0.2 mmol/L Normal 0.0-0.3 Comment on above: Order Comment: Comme nts: may add to ED labsComments: add to ED labs Performed By: #### L 501.6901, L501.5200 #### [address] [place], [address] CBC W/Diff, Automatedon 02-11 Absolute Lymph 2.46 X10 3/uL Normal 0.83-4.51 Comment on above: Performed By: #### L 500.4050, L100.0100 #### [address] [place], [address] Absolute Neut 6.8 X10 3/uL Normal 2.0-7.7 Comment on above: Performed By: #### L 500.4050, L100.0100 #### [address] [place], [address] Basophils/100 WBC (Bld) 0.4 % Normal 0-1 Comment on above: Performed By: #### L 500.4050, L100.0100 #### [address] [place], [address] Eosinophils/100 WBC (Bld) 3.0 % Normal 0-5 Comment on above: Performed By: #### L 500.4050, L100.0100 #### [address] [place], [address] Erythrocyte distribution width (RBC) [Ratio] 15.1 % High 11.6-14.6 Comment on above: Performed By: #### L 500.4050, L100.0100 #### [address] [place], [address] Hematocrit (Bld) [Volume fraction] 35.4 % Low 37-47 Comment on above: Performed By: #### L 500.4050, L100.0100 #### [address] [place], [address] Hemoglobin (Bld) [Mass/Vol] 11.4 g/dL Low 12.0-15.0 Comment on above: Performed By: #### L 500.4050, L100.0100 #### [address] [place], [address] IG% 0.400 Normal 0.0-0.9 Comment on above: Result Comment: IG% - Immature Granulocytes (promyelocytes, myelocytes andmetamyelocytes) > 1% indicates that a LEFT SHIFT is Present. Performed By: #### L 500.4050, L100.0100 #### [address] [place], [address] Lymphocytes/100 WBC (Bld) 23.4 % Normal 19-41 Comment on above: Performed By: #### L 500.4050, L100.0100 #### [address] [place], [address] MCH (RBC) [Entitic mass] 27.3 pg Normal 27.0-32.0 Comment on above: Performed By: #### L 500.4050, L100.0100 #### [address] [place], [address] MCHC (RBC) [Mass/Vol] 32.2 g/dL Normal 32-36 [facility] Comment on above: Performed By: #### L 500.4050, L100.0100 #### [address] [place], [address] MCV (RBC) [Entitic vol] 84.7 fL Normal 81-99 Comment on above: Performed By: #### L 500.4050, L100.0100 #### [address] [place], [address] Monocytes/100 WBC (Bld) 8.6 % Normal 0-10 Comment on above: Performed By: #### L 500.4050, L100.0100 #### [address] [place], [address] Neutrophils/100 WBC (Bld) 64.2 % Normal 47-70 Comment on above: Performed By: #### L 500.4050, L100.0100 #### [address] [place], [address] Nucleated RBC (Bld) [#/Vol] 0 10*3/uL Normal 0-5 Comment on above: Performed By: #### L 500.4050, L100.0100 #### [address] [place], [address] Platelet mean volume (Bld) [Entitic vol] 9.4 fL Normal 6.2-12.0 Comment on above: Performed By: #### L 500.4050, L100.0100 #### [address] [place], [address] Platelets (Bld) [#/Vol] 328 10*3/uL Normal 150-450 Comment on above: Performed By: #### L 500.4050, L100.0100 #### [address] [place], [address] RBC (Bld) [#/Vol] 4.18 10*6/uL Low 4.2-5.4 [facility] Comment on above: Performed By: #### L 500.4050, L100.0100 #### [address] [place], [address] RDW SD 46.5 fl High 35.1-43.9 Comment on above: Performed By: #### L 500.4050, L100.0100 #### [address] [place], [address] WBC (Bld) [#/Vol] 10.5 10*3/uL Normal 4.4-11.0 [facility] Comment on above: Performed By: #### L 500.4050, L100.0100 #### [address] [place], [address] Comprehensive Metabolic Prof [facility] 03-06-2025 Albumin [Mass/Vol] 3.9 g/dL Normal 3.4-4.8 [facility] Comment on above: Performed By: #### L 500.4050, L100.0100 #### [address] [place], [address] Albumin/Globulin [Mass ratio] 1.7 {ratio} Normal 0.9-2.4 Comment on above: Performed By: #### L 500.4050, L100.0100 #### [address] [place], [address] ALK PHOS 65 U/L Normal 35-104 Comment on above: Performed By: #### L 500.4050, L100.0100 #### [address] [place], [address] ALT [Catalytic activity/Vol] 20 U/L Normal <=34 Comment on above: Performed By: #### L 500.4050, L100.0100 #### [address] [place], [address] AST [Catalytic activity/Vol] 19 U/L Normal <=31 Comment on above: Performed By: #### L 500.4050, L100.0100 #### [address] [place], [address] Bilirubin [Mass/Vol] 0.30 mg/dL Normal 0.00-1.30 [facility] Comment on above: Performed By: #### L 500.4050, L100.0100 #### [address] [place], [address] BUN/CRE 18.7 RATIO Normal 10-20 Comment on above: Performed By: #### L 500.4050, L100.0100 #### [address] [place], [address] Calcium [Mass/Vol] 9.1 mg/dL Normal 7.6-11.0 [facility] Comment on above: Performed By: #### L 500.4050, L100.0100 #### [address] [place], [address] Chloride [Moles/Vol] 103 mmol/L Normal 98-108 [facility] Comment on above: Performed By: #### L 500.4050, L100.0100 #### [address] [place], [address] CO2 [Moles/Vol] 25.1 mmol/L Normal 21.0-32.0 Comment on above: Performed By: #### L 500.4050, L100.0100 #### [address] [place], [address] Creatinine [Mass/Vol] 0.89 mg/dL Normal 0.70-1.20 [facility] Comment on above: Performed By: #### L 500.4050, L100.0100 #### [address] [place], [address] ECRCL 59.46 ml/min Normal 50-250 Comment on above: Performed By: #### L 500.4050, L100.0100 #### [address] [place], [address] GAP 12 Normal 5-15 Comment on above: Performed By: #### L 500.4050, L100.0100 #### [address] [place], [address] GFR/1.73 sq M.predicted among non-blacks MDRD (S/P/Bld) [Vol rate/Area] 66 mL/min/{1.73_m2} Normal >60 Comment on above: Result Comment: mL/m in/1.73m2 CKD-EPI Creatinine Equation (2020) Performed By: #### L 500.4050, L100.0100 #### [address] [place], [address] Globulin (S) [Mass/Vol] 2.3 g/dL Normal 2.2-4.2 Comment on above: Performed By: #### L 500.4050, L100.0100 #### [address] [place], [address] Glucose [Mass/Vol] 126 mg/dL High 70-99 [facility] Comment on above: Performed By: #### L 500.4050, L100.0100 #### [address] [place], [address] Potassium [Moles/Vol] 4.2 mmol/L Normal 3.3-5.1 [facility] Comment on above: Performed By: #### L 500.4050, L100.0100 #### [address] [place], [address] Sodium [Moles/Vol] 140 mmol/L Normal 133-145 [facility] Comment on above: Performed By: #### L 500.4050, L100.0100 #### [address] [place], [address] T PROT 6.2 g/dL Normal 5.9-8.4 Comment on above: Performed By: #### L 500.4050, L100.0100 #### [address] [place], [address] Urea nitrogen [Mass/Vol] 17 mg/dL Normal 4-19 Comment on above: Performed By: #### L 500.4050, L100.0100 #### [address] [place], [address] H AND P Exam - [facility] 03-06-2025 H&P Exam - Hospitalist Normal [facility] Magnesiumon 03-06-2025 Magnesium [Mass/Vol] 1.8 mg/dL Normal 1.5-2.2 [facility] Comment on above: Order Comment: Comme nts: may add to ED labsComments: add to ED labs Performed By: #### L 501.6901, L501.5200 #### [address] [place], [address] Urinalysis, Completeon 03-06 BACTERIA 1+ /hpf Normal None Seen Comment on above: Order Comment: CATY TER SPECIMEN Performed By: #### L 400.0001 #### [address] [place], [address] EPI,SQUAMOUS 0-5 SEEN Normal 5-10 Comment on above: Order Comment: CATY TER SPECIMEN Performed By: #### L 400.0001 #### [address] [place], [address] RBC 0-5 SEEN Normal 0-5 Comment on above: Order Comment: CATY TER SPECIMEN Performed By: #### L 400.0001 #### [address] [place], [address] WBC 5-10 SEEN Normal 0-5 Comment on above: Order Comment: CATY TER SPECIMEN Performed By: #### L 400.0001 #### [address] [place], [address] Mucus Ql (Urine sed) 0 SEEN Normal [facility] Comment on above: Order Comment: CATY TER SPECIMEN Performed By: #### L 400.0001 #### [address] [place], [address] Brain/Head without Contrasto n 03-05-2025 Brain/Head without Contrast Normal CBC W/Diff, Automatedon 07- Absolute Lymph 1.94 X10 3/uL Normal 0.83-4.51 Comment on above: Performed By: #### L 500.4050, L100.0100 #### [address] [place], [address] Absolute Neut 4.9 X10 3/uL Normal 2.0-7.7 Comment on above: Performed By: #### L 500.4050, L100.0100 #### [address] [place], [address] Basophils/100 WBC (Bld) 0.5 % Normal 0-1 Comment on above: Performed By: #### L 500.4050, L100.0100 #### [address] [place], [address] Eosinophils/100 WBC (Bld) 4.0 % Normal 0-5 Comment on above: Performed By: #### L 500.4050, L100.0100 #### [address] [place], [address] Erythrocyte distribution width (RBC) [Ratio] 15.0 % High 11.6-14.6 Comment on above: Performed By: #### L 500.4050, L100.0100 #### [address] [place], [address] Hematocrit (Bld) [Volume fraction] 36.6 % Low 37-47 Comment on above: Performed By: #### L 500.4050, L100.0100 #### [address] [place], [address] Hemoglobin (Bld) [Mass/Vol] 11.8 g/dL Low 12.0-15.0 Comment on above: Performed By: #### L 500.4050, L100.0100 #### [address] [place], [address] IG% 0.400 Normal 0.0-0.9 Comment on above: Result Comment: IG% - Immature Granulocytes (promyelocytes, myelocytes andmetamyelocytes) > 1% indicates that a LEFT SHIFT is Present. Performed By: #### L 500.4050, L100.0100 #### [address] [place], [address] Lymphocytes/100 WBC (Bld) 24.4 % Normal 19-41 Comment on above: Performed By: #### L 500.4050, L100.0100 #### [address] [place], [address] MCH (RBC) [Entitic mass] 27.0 pg Normal 27.0-32.0 Comment on above: Performed By: #### L 500.4050, L100.0100 #### [address] [place], [address] MCHC (RBC) [Mass/Vol] 32.2 g/dL Normal 32-36 [facility] Comment on above: Performed By: #### L 500.4050, L100.0100 #### [address] [place], [address] MCV (RBC) [Entitic vol] 83.8 fL Normal 81-99 Comment on above: Performed By: #### L 500.4050, L100.0100 #### [address] [place], [address] Monocytes/100 WBC (Bld) 9.0 % Normal 0-10 Comment on above: Performed By: #### L 500.4050, L100.0100 #### [address] [place], [address] Neutrophils/100 WBC (Bld) 61.7 % Normal 47-70 Comment on above: Performed By: #### L 500.4050, L100.0100 #### [address] [place], [address] Nucleated RBC (Bld) [#/Vol] 0 10*3/uL Normal 0-5 Comment on above: Performed By: #### L 500.4050, L100.0100 #### [address] [place], [address] Platelet mean volume (Bld) [Entitic vol] 9.8 fL Normal 6.2-12.0 Comment on above: Performed By: #### L 500.4050, L100.0100 #### [address] [place], [address] Platelets (Bld) [#/Vol] 351 10*3/uL Normal 150-450 Comment on above: Performed By: #### L 500.4050, L100.0100 #### [address] [place], [address] RBC (Bld) [#/Vol] 4.37 10*6/uL Normal 4.2-5.4 [facility] Comment on above: Performed By: #### L 500.4050, L100.0100 #### [address] [place], [address] RDW SD 45.5 fl High 35.1-43.9 Comment on above: Performed By: #### L 500.4050, L100.0100 #### [address] [place], [address] WBC (Bld) [#/Vol] 8.0 10*3/uL Normal 4.4-11.0 [facility] Comment on above: Performed By: #### L 500.4050, L100.0100 #### [address] [place], [address] Comprehensive Metabolic [facility] 03-05-2025 Albumin [Mass/Vol] 3.6 g/dL Normal 3.4-4.8 [facility] Comment on above: Performed By: #### L 500.4050, L100.0100 #### [address] [place], [address] Albumin/Globulin [Mass ratio] 1.4 {ratio} Normal 0.9-2.4 Comment on above: Performed By: #### L 500.4050, L100.0100 #### [address] [place], [address] ALK PHOS 66 U/L Normal 35-104 Comment on above: Performed By: #### L 500.4050, L100.0100 #### [address] [place], [address] ALT [Catalytic activity/Vol] 20 U/L Normal <=34 Comment on above: Performed By: #### L 500.4050, L100.0100 #### [address] [place], [address] AST [Catalytic activity/Vol] 19 U/L Normal <=31 Comment on above: Performed By: #### L 500.4050, L100.0100 #### [address] [place], [address] Bilirubin [Mass/Vol] 0.23 mg/dL Normal 0.00-1.30 [facility] Comment on above: Performed By: #### L 500.4050, L100.0100 #### [address] [place], [address] BUN/CRE 17.0 RATIO Normal 10-20 Comment on above: Performed By: #### L 500.4050, L100.0100 #### [address] [place], [address] Calcium [Mass/Vol] 9.5 mg/dL Normal 7.6-11.0 [facility] Comment on above: Performed By: #### L 500.4050, L100.0100 #### [address] [place], [address] Chloride [Moles/Vol] 101 mmol/L Normal 98-108 [facility] Comment on above: Performed By: #### L 500.4050, L100.0100 #### [address] [place], [address] CO2 [Moles/Vol] 19.2 mmol/L Low 21.0-32.0 Comment on above: Performed By: #### L 500.4050, L100.0100 #### [address] [place], [address] Creatinine [Mass/Vol] 1.12 mg/dL Normal 0.70-1.20 [facility] Comment on above: Performed By: #### L 500.4050, L100.0100 #### [address] [place], [address] ECRCL 48.52 ml/min Low 50-250 Comment on above: Performed By: #### L 500.4050, L100.0100 #### [address] [place], [address] GAP 17 High 5-15 Comment on above: Performed By: #### L 500.4050, L100.0100 #### [address] [place], [address] GFR/1.73 sq M.predicted among non-blacks MDRD (S/P/Bld) [Vol rate/Area] 50 mL/min/{1.73_m2} Low >60 Comment on above: Result Comment: mL/m in/1.73m2 CKD-EPI Creatinine Equation (2020) Performed By: #### L 500.4050, L100.0100 #### [address] [place], [address] Globulin (S) [Mass/Vol] 2.5 g/dL Normal 2.2-4.2 Comment on above: Performed By: #### L 500.4050, L100.0100 #### [address] [place], [address] Glucose [Mass/Vol] 331 mg/dL High 70-99 [facility] Comment on above: Performed By: #### L 500.4050, L100.0100 #### [address] [place], [address] Potassium [Moles/Vol] 4.8 mmol/L Normal 3.3-5.1 [facility] Comment on above: Performed By: #### L 500.4050, L100.0100 #### [address] [place], [address] Sodium [Moles/Vol] 138 mmol/L Normal 133-145 [facility] Comment on above: Performed By: #### L 500.4050, L100.0100 #### [address] [place], [address] T PROT 6.1 g/dL Normal 5.9-8.4 Comment on above: Performed By: #### L 500.4050, L100.0100 #### [address] [place], [address] Urea nitrogen [Mass/Vol] 19 mg/dL Normal 4-19 Comment on above: Performed By: #### L 500.4050, L100.0100 #### [address] [place], [address] Emergency Department Summary on 03-05-2025 Emergency Department Summary Normal HIP, UNI W/ Pelvis 2-3 Views on 03-05-2025 HIP, UNI W/ Pelvis 2-3 Views Normal Spine Cervical without Contr ason 03-05-2025 Spine Cervical without Contras Normal Spine Lumbar without Contras ton 03-05-2025 Spine Lumbar without Contrast Normal MR/BMS.BPon 03-04-2025 MR/BMS.BP Normal Protein Electro.Ur-Randomon 03-04-2025 M-SPIKE,U Normal Comment on above: Result Comment: NOT OBSERVED Performed By: #### L 3600.4000, L3100.3450 #### [address] [place], [address] Protein Electroph, Son 03-02 Albumin [Mass/Vol] 3.4 g/dL Normal 2.9-4.4 [facility] Comment on above: Performed By: #### L 3600.4000, L3100.3450 #### [address] [place], [address] Albumin/Globulin [Mass ratio] 1.1 {ratio} Normal 0.7-1.7 Comment on above: Performed By: #### L 3600.4000, L3100.3450 #### [address] [place], [address] ALPHA-1 GLOBUL 0.3 g/dL Normal 0.0-0.4 Comment on above: Performed By: #### L 3600.4000, L3100.3450 #### [address] [place], [address] ALPHA-2 GLOBUL 1.2 g/dL High 0.4-1.0 Comment on above: Performed By: #### L 3600.4000, L3100.3450 #### [address] [place], [address] BETA GLOBULIN 1.0 g/dL Normal 0.7-1.3 Comment on above: Performed By: #### L 3600.4000, L3100.3450 #### [address] [place], [address] GAMMA GLOBULIN 0.6 g/dL Normal 0.4-1.8 Comment on above: Performed By: #### L 3600.4000, L3100.3450 #### [address] [place], [address] Globulin (S) [Mass/Vol] 3.1 g/dL Normal 2.2-3.9 Comment on above: Performed By: #### L 3600.4000, L3100.3450 #### [address] [place], [address] INTERPRETATION Comment Normal . Comment on above: Result Comment: Prot ein electrophoresis scan will follow via computer,mail, or manager home improvement delivery. Performed By: #### L 3600.4000, L3100.3450 #### [address] [place], [address] M-SPIKE Comment: Normal Not Observed Comment on above: Result Comment: M-sp gali #1 = 0.1 g/dlM-spike #2 = 0.2 g/dl Performed By: #### L 3600.4000, L3100.3450 #### [address] [place], [address] NOTE: Comment Normal . Comment on above: Result Comment: The SPE pattern demonstrates two peaks in the beta-gammaregion which may represent monoclonal protein. A biclonalgammopathy may be confirmed by immunofixation, as well asevaluation of the urine for the presence of Bence-Jonesprotein. Performed By: #### L 3600.4000, L3100.3450 #### [address] [place], [address] Protein [Mass/Vol] 6.5 g/dL Normal 6.0-8.5 [facility] Comment on above: Performed By: #### L 3600.4000, L3100.3450 #### [address] [place], [address] Brain/Head without Contrasto n 02-26-2025 Brain/Head without Contrast Normal MR/BMS.BPon 02-20-2025 MR/BMS.BP Normal Culture, Blood (WB)on 2024 CUB SET Blood cultures x2, from two different sites No growth in 5 days. Normal Comment on above: Performed By: #### M 200.1000 #### [address] [place], [address] Basic Metabolic Profile (BMP )on 01-11-2025 BUN Normal 4-19 Comment on above: Result Comment: Canc elled via OM: Order cancelled - Patient discharged Performed By: #### L 100.0100, L500.2500 #### [address] [place], [address] BUN/CRE Normal 10-20 Comment on above: Result Comment: Canc elled via OM: Order cancelled - Patient discharged Performed By: #### L 100.0100, L500.2500 #### [address] [place], [address] Calcium Normal 7.6-11.0 Comment on above: Result Comment: Canc elled via OM: Order cancelled - Patient discharged Performed By: #### L 100.0100, L500.2500 #### [address] [place], [address] CL Normal 98-108 Comment on above: Result Comment: Canc elled via OM: Order cancelled - Patient discharged Performed By: #### L 100.0100, L500.2500 #### [address] [place], [address] CO2 Normal 21.0-32.0 Comment on above: Result Comment: Canc elled via OM: Order cancelled - Patient discharged Performed By: #### L 100.0100, L500.2500 #### [address] [place], [address] CREAT,SERUM Normal 0.70-1.20 Comment on above: Result Comment: Canc elled via OM: Order cancelled - Patient discharged Performed By: #### L 100.0100, L500.2500 #### [address] [place], [address] eGFR Normal >60 Comment on above: Result Comment: Canc elled via OM: Order cancelled - Patient discharged Performed By: #### L 100.0100, L500.2500 #### [address] [place], [address] GAP Normal 5-15 Comment on above: Result Comment: Canc elled via OM: Order cancelled - Patient discharged Performed By: #### L 100.0100, L500.2500 #### [address] [place], [address] GLU Normal 70-99 Comment on above: Result Comment: Canc elled via OM: Order cancelled - Patient discharged Performed By: #### L 100.0100, L500.2500 #### [address] [place], [address] Potassium Normal 3.3-5.1 Comment on above: Result Comment: Canc elled via OM: Order cancelled - Patient discharged Performed By: #### L 100.0100, L500.2500 #### [address] [place], [address] Basic Metabolic Profile (BMP) Normal 133-145 Comment on above: Result Comment: Canc elled via OM: Order cancelled - Patient discharged Performed By: #### L 100.0100, L500.2500 #### [address] [place], [address] CBC W/Diff, Automatedon 06-0 Absolute Neut Normal 2.0-7.7 Comment on above: Result Comment: Canc elled via OM: Order cancelled - Patient discharged Performed By: #### L 100.0100, L500.2500 #### [address] [place], [address] HCT Normal 37-47 Comment on above: Result Comment: Canc elled via OM: Order cancelled - Patient discharged Performed By: #### L 100.0100, L500.2500 #### [address] [place], [address] HGB Normal 12.0-15.0 Comment on above: Result Comment: Canc elled via OM: Order cancelled - Patient discharged Performed By: #### L 100.0100, L500.2500 #### [address] [place], [address] MCH Normal 27.0-32.0 Comment on above: Result Comment: Canc elled via OM: Order cancelled - Patient discharged Performed By: #### L 100.0100, L500.2500 #### [address] [place], [address] MCHC Normal 32-36 Comment on above: Result Comment: Canc elled via OM: Order cancelled - Patient discharged Performed By: #### L 100.0100, L500.2500 #### [address] [place], [address] MCV Normal 81-99 Comment on above: Result Comment: Canc elled via OM: Order cancelled - Patient discharged Performed By: #### L 100.0100, L500.2500 #### [address] [place], [address] NEUT% Normal 47-70 Comment on above: Result Comment: Canc elled via OM: Order cancelled - Patient discharged Performed By: #### L 100.0100, L500.2500 #### [address] [place], [address] PLT Normal 150-450 Comment on above: Result Comment: Canc elled via OM: Order cancelled - Patient discharged Performed By: #### L 100.0100, L500.2500 #### [address] [place], [address] RBC Normal 4.2-5.4 Comment on above: Result Comment: Canc elled via OM: Order cancelled - Patient discharged Performed By: #### L 100.0100, L500.2500 #### [address] [place], [address] RDW CV Normal 11.6-14.6 Comment on above: Result Comment: Canc elled via OM: Order cancelled - Patient discharged Performed By: #### L 100.0100, L500.2500 #### [address] [place], [address] RDW SD Normal 35.1-43.9 Comment on above: Result Comment: Canc elled via OM: Order cancelled - Patient discharged Performed By: #### L 100.0100, L500.2500 #### [address] [place], [address] WBC Normal 4.4-11.0 Comment on above: Result Comment: Canc elled via OM: Order cancelled - Patient discharged Performed By: #### L 100.0100, L500.2500 #### [address] [place], [address] Basic Metabolic Profile (BMP )on 01-10-2025 BUN/CRE 14.9 RATIO Normal 10-20 Comment on above: Performed By: #### L 100.0100, L500.2500 #### [address] [place], [address] Calcium [Mass/Vol] 9.3 mg/dL Normal 7.6-11.0 [facility] Comment on above: Performed By: #### L 100.0100, L500.2500 #### [address] [place], [address] Chloride [Moles/Vol] 104 mmol/L Normal 98-108 [facility] Comment on above: Performed By: #### L 100.0100, L500.2500 #### [address] [place], [address] CO2 [Moles/Vol] 25.6 mmol/L Normal 21.0-32.0 Comment on above: Performed By: #### L 100.0100, L500.2500 #### [address] [place], [address] Creatinine [Mass/Vol] 0.88 mg/dL Normal 0.70-1.20 [facility] Comment on above: Performed By: #### L 100.0100, L500.2500 #### [address] [place], [address] ECRCL 60.74 ml/min Normal 50-250 Comment on above: Performed By: #### L 100.0100, L500.2500 #### [address] [place], [address] GAP 12 Normal 5-15 Comment on above: Performed By: #### L 100.0100, L500.2500 #### [address] [place], [address] GFR/1.73 sq M.predicted among non-blacks MDRD (S/P/Bld) [Vol rate/Area] 68 mL/min/{1.73_m2} Normal >60 Comment on above: Result Comment: mL/m in/1.73m2 CKD-EPI Creatinine Equation (2020) Performed By: #### L 100.0100, L500.2500 #### [address] [place], [address] Glucose [Mass/Vol] 150 mg/dL High 70-99 [facility] Comment on above: Performed By: #### L 100.0100, L500.2500 #### [address] [place], [address] Potassium [Moles/Vol] 4.1 mmol/L Normal 3.3-5.1 [facility] Comment on above: Performed By: #### L 100.0100, L500.2500 #### [address] [place], [address] Sodium [Moles/Vol] 142 mmol/L Normal 133-145 [facility] Comment on above: Performed By: #### L 100.0100, L500.2500 #### [address] [place], [address] Urea nitrogen [Mass/Vol] 13 mg/dL Normal 4-19 Comment on above: Performed By: #### L 100.0100, L500.2500 #### [address] [place], [address] Bedside Glucoseon 01-10-2025 FINGERSTICK GLU 170 mg/dL High 74-106 Comment on above: Result Comment: GILDA CLINE OF PATIENT CARE PER NURSING PROTOCOL Performed By: #### L 501.080 #### [address] [place], [address] CBC W/Diff, Automatedon 05-3 -2024 Absolute Lymph 2.24 X10 3/uL Normal 0.83-4.51 Comment on above: Performed By: #### L 100.0100, L500.2500 #### [address] [place], [address] Absolute Neut 4.1 X10 3/uL Normal 2.0-7.7 Comment on above: Performed By: #### L 100.0100, L500.2500 #### [address] [place], [address] Basophils/100 WBC (Bld) 0.5 % Normal 0-1 Comment on above: Performed By: #### L 100.0100, L500.2500 #### [address] [place], [address] Eosinophils/100 WBC (Bld) 4.5 % Normal 0-5 Comment on above: Performed By: #### L 100.0100, L500.2500 #### [address] [place], [address] Erythrocyte distribution width (RBC) [Ratio] 15.1 % High 11.6-14.6 Comment on above: Performed By: #### L 100.0100, L500.2500 #### [address] [place], [address] Hematocrit (Bld) [Volume fraction] 36.7 % Low 37-47 Comment on above: Performed By: #### L 100.0100, L500.2500 #### [address] [place], [address] Hemoglobin (Bld) [Mass/Vol] 11.9 g/dL Low 12.0-15.0 Comment on above: Performed By: #### L 100.0100, L500.2500 #### [address] [place], [address] IG% 0.400 Normal 0.0-0.9 Comment on above: Result Comment: IG% - Immature Granulocytes (promyelocytes, myelocytes andmetamyelocytes) > 1% indicates that a LEFT SHIFT is Present. Performed By: #### L 100.0100, L500.2500 #### [address] [place], [address] Lymphocytes/100 WBC (Bld) 30.8 % Normal 19-41 Comment on above: Performed By: #### L 100.0100, L500.2500 #### [address] [place], [address] MCH (RBC) [Entitic mass] 27.7 pg Normal 27.0-32.0 Comment on above: Performed By: #### L 100.0100, L500.2500 #### [address] [place], [address] MCHC (RBC) [Mass/Vol] 32.4 g/dL Normal 32-36 [facility] Comment on above: Performed By: #### L 100.0100, L500.2500 #### [address] [place], [address] MCV (RBC) [Entitic vol] 85.5 fL Normal 81-99 Comment on above: Performed By: #### L 100.0100, L500.2500 #### [address] [place], [address] Monocytes/100 WBC (Bld) 7.3 % Normal 0-10 Comment on above: Performed By: #### L 100.0100, L500.2500 #### [address] [place], [address] Neutrophils/100 WBC (Bld) 56.5 % Normal 47-70 Comment on above: Performed By: #### L 100.0100, L500.2500 #### [address] [place], [address] Nucleated RBC (Bld) [#/Vol] 0 10*3/uL Normal 0-5 Comment on above: Performed By: #### L 100.0100, L500.2500 #### [address] [place], [address] Platelet mean volume (Bld) [Entitic vol] 10.0 fL Normal 6.2-12.0 Comment on above: Performed By: #### L 100.0100, L500.2500 #### [address] [place], [address] Platelets (Bld) [#/Vol] 291 10*3/uL Normal 150-450 Comment on above: Performed By: #### L 100.0100, L500.2500 #### [address] [place], [address] RBC (Bld) [#/Vol] 4.29 10*6/uL Normal 4.2-5.4 [facility] Comment on above: Performed By: #### L 100.0100, L500.2500 #### [address] [place], [address] RDW SD 47.4 fl High 35.1-43.9 Comment on above: Performed By: #### L 100.0100, L500.2500 #### [address] [place], [address] WBC (Bld) [#/Vol] 7.3 10*3/uL Normal 4.4-11.0 [facility] Comment on above: Performed By: #### L 100.0100, L500.2500 #### [address] [place], [address] Basic Metabolic Profile (BMP )on 01-09-2025 BUN/CRE 16.7 RATIO Normal 10-20 Comment on above: Performed By: #### L 500.2500, L100.0100, L501.5200, L501.2300 #### [address] [place], [address] Calcium [Mass/Vol] 9.0 mg/dL Normal 7.6-11.0 [facility] Comment on above: Performed By: #### L 500.2500, L100.0100, L501.5200, L501.2300 #### [address] [place], [address] Chloride [Moles/Vol] 103 mmol/L Normal 98-108 [facility] Comment on above: Performed By: #### L 500.2500, L100.0100, L501.5200, L501.2300 #### [address] [place], [address] CO2 [Moles/Vol] 24.3 mmol/L Normal 21.0-32.0 Comment on above: Performed By: #### L 500.2500, L100.0100, L501.5200, L501.2300 #### [address] [place], [address] Creatinine [Mass/Vol] 0.88 mg/dL Normal 0.70-1.20 [facility] Comment on above: Performed By: #### L 500.2500, L100.0100, L501.5200, L501.2300 #### [address] [place], [address] ECRCL 60.74 ml/min Normal 50-250 Comment on above: Performed By: #### L 500.2500, L100.0100, L501.5200, L501.2300 #### [address] [place], [address] GAP 10 Normal 5-15 Comment on above: Performed By: #### L 500.2500, L100.0100, L501.5200, L501.2300 #### [address] [place], [address] GFR/1.73 sq M.predicted among non-blacks MDRD (S/P/Bld) [Vol rate/Area] 67 mL/min/{1.73_m2} Normal >60 Comment on above: Result Comment: mL/m in/1.73m2 CKD-EPI Creatinine Equation (2020) Performed By: #### L 500.2500, L100.0100, L501.5200, L501.2300 #### [address] [place], [address] Glucose [Mass/Vol] 151 mg/dL High 70-99 [facility] Comment on above: Performed By: #### L 500.2500, L100.0100, L501.5200, L501.2300 #### [address] [place], [address] Potassium [Moles/Vol] 3.8 mmol/L Normal 3.3-5.1 [facility] Comment on above: Performed By: #### L 500.2500, L100.0100, L501.5200, L501.2300 #### [address] [place], [address] Sodium [Moles/Vol] 137 mmol/L Normal 133-145 [facility] Comment on above: Performed By: #### L 500.2500, L100.0100, L501.5200, L501.2300 #### [address] [place], [address] Urea nitrogen [Mass/Vol] 15 mg/dL Normal 4-19 Comment on above: Performed By: #### L 500.2500, L100.0100, L501.5200, L501.2300 #### [address] [place], [address] Bedside Glucoseon 01-09-2025 FINGERSTICK GLU 185 mg/dL High 74-106 Comment on above: Result Comment: GILDA GEMENT OF PATIENT CARE PER NURSING PROTOCOL Performed By: #### L 501.080 #### [address] [place], [address] FINGERSTICK GLU 174 mg/dL High 74-106 Comment on above: Result Comment: GILDA GEMENT OF PATIENT CARE PER NURSING PROTOCOL Performed By: #### L 501.080 #### [address] [place], [address] FINGERSTICK GLU 249 mg/dL High 74-106 Comment on above: Result Comment: GILDA GEMENT OF PATIENT CARE PER NURSING PROTOCOL Performed By: #### L 501.080 #### [address] [place], [address] FINGERSTICK GLU 179 mg/dL High 74-106 Comment on above: Result Comment: GILDA GEMENT OF PATIENT CARE PER NURSING PROTOCOL Performed By: #### L 501.080 #### [address] [place], [address] FINGERSTICK GLU 224 mg/dL High 74-106 Comment on above: Result Comment: GILDA GEMENT OF PATIENT CARE PER NURSING PROTOCOL Performed By: #### L 501.080 #### [address] [place], [address] CBC W/Diff, Automatedon 05-3 0-2025 Absolute Lymph 1.78 X10 3/uL Normal 0.83-4.51 Comment on above: Performed By: #### L 500.2500, L100.0100, L501.5200, L501.2300 #### [address] [place], [address] Absolute Neut 4.9 X10 3/uL Normal 2.0-7.7 Comment on above: Performed By: #### L 500.2500, L100.0100, L501.5200, L501.2300 #### [address] [place], [address] Basophils/100 WBC (Bld) 0.3 % Normal 0-1 Comment on above: Performed By: #### L 500.2500, L100.0100, L501.5200, L501.2300 #### [address] [place], [address] Eosinophils/100 WBC (Bld) 3.2 % Normal 0-5 Comment on above: Performed By: #### L 500.2500, L100.0100, L501.5200, L501.2300 #### [address] [place], [address] Erythrocyte distribution width (RBC) [Ratio] 15.1 % High 11.6-14.6 Comment on above: Performed By: #### L 500.2500, L100.0100, L501.5200, L501.2300 #### [address] [place], [address] Hematocrit (Bld) [Volume fraction] 34.0 % Low 37-47 Comment on above: Performed By: #### L 500.2500, L100.0100, L501.5200, L501.2300 #### [address] [place], [address] Hemoglobin (Bld) [Mass/Vol] 11.4 g/dL Low 12.0-15.0 Comment on above: Performed By: #### L 500.2500, L100.0100, L501.5200, L501.2300 #### [address] [place], [address] IG% 0.600 Normal 0.0-0.9 Comment on above: Result Comment: IG% - Immature Granulocytes (promyelocytes, myelocytes andmetamyelocytes) > 1% indicates that a LEFT SHIFT is Present. Performed By: #### L 500.2500, L100.0100, L501.5200, L501.2300 #### [address] [place], [address] Lymphocytes/100 WBC (Bld) 22.8 % Normal 19-41 Comment on above: Performed By: #### L 500.2500, L100.0100, L501.5200, L501.2300 #### [address] [place], [address] MCH (RBC) [Entitic mass] 27.8 pg Normal 27.0-32.0 Comment on above: Performed By: #### L 500.2500, L100.0100, L501.5200, L501.2300 #### [address] [place], [address] MCHC (RBC) [Mass/Vol] 33.5 g/dL Normal 32-36 [facility] Comment on above: Performed By: #### L 500.2500, L100.0100, L501.5200, L501.2300 #### [address] [place], [address] MCV (RBC) [Entitic vol] 82.9 fL Normal 81-99 Comment on above: Performed By: #### L 500.2500, L100.0100, L501.5200, L501.2300 #### [address] [place], [address] Monocytes/100 WBC (Bld) 9.6 % Normal 0-10 Comment on above: Performed By: #### L 500.2500, L100.0100, L501.5200, L501.2300 #### [address] [place], [address] Neutrophils/100 WBC (Bld) 63.5 % Normal 47-70 Comment on above: Performed By: #### L 500.2500, L100.0100, L501.5200, L501.2300 #### [address] [place], [address] Nucleated RBC (Bld) [#/Vol] 0 10*3/uL Normal 0-5 Comment on above: Performed By: #### L 500.2500, L100.0100, L501.5200, L501.2300 #### [address] [place], [address] Platelet mean volume (Bld) [Entitic vol] 9.7 fL Normal 6.2-12.0 Comment on above: Performed By: #### L 500.2500, L100.0100, L501.5200, L501.2300 #### [address] [place], [address] Platelets (Bld) [#/Vol] 258 10*3/uL Normal 150-450 Comment on above: Performed By: #### L 500.2500, L100.0100, L501.5200, L501.2300 #### [address] [place], [address] RBC (Bld) [#/Vol] 4.10 10*6/uL Low 4.2-5.4 [facility] Comment on above: Performed By: #### L 500.2500, L100.0100, L501.5200, L501.2300 #### [address] [place], [address] RDW SD 46.0 fl High 35.1-43.9 Comment on above: Performed By: #### L 500.2500, L100.0100, L501.5200, L501.2300 #### [address] [place], [address] WBC (Bld) [#/Vol] 7.8 10*3/uL Normal 4.4-11.0 [facility] Comment on above: Performed By: #### L 500.2500, L100.0100, L501.5200, L501.2300 #### [address] [place], [address] Magnesiumon 01-09-2025 Magnesium [Mass/Vol] 1.8 mg/dL Normal 1.5-2.2 [facility] Comment on above: Performed By: #### L 500.2500, L100.0100, L501.5200, L501.2300 #### [address] [place], [address] Phosphoruson 01-09-2025 Phosphate [Mass/Vol] 4.6 mg/dL High 2.7-4.5 [facility] Comment on above: Performed By: #### L 500.2500, L100.0100, L501.5200, L501.2300 #### [address] [place], [address] Urine Cultureon 01-09-2025 [facility] Normal Comment on above: Performed By: #### M 100.2200 #### [id number] [place], [address] Basic Metabolic Profile (BMP )on 01-08-2025 BUN/CRE 16.5 RATIO Normal 10-20 Comment on above: Order Comment: PER Kinsey DE JESUS RN OKAY TO DO MORNING LABS EARLY Performed By: #### L 100.0100, L500.2500 #### [id number] [place], [address] Calcium [Mass/Vol] 9.0 mg/dL Normal 7.6-11.0 [facility] Comment on above: Order Comment: PER Kinsey DE JESUS RN OKAY TO DO MORNING LABS EARLY Performed By: #### L 100.0100, L500.2500 #### [id number] [place], [address] Chloride [Moles/Vol] 101 mmol/L Normal 98-108 [facility] Comment on above: Order Comment: PER Kinsey DE JESUS RN OKAY TO DO MORNING LABS EARLY Performed By: #### L 100.0100, L500.2500 #### [id number] [place], [address] CO2 [Moles/Vol] 20.9 mmol/L Low 21.0-32.0 Comment on above: Order Comment: PER Kinsey DE JESUS RN OKAY TO DO MORNING LABS EARLY Performed By: #### L 100.0100, L500.2500 #### [id number] [place], [address] Creatinine [Mass/Vol] 1.01 mg/dL Normal 0.70-1.20 [facility] Comment on above: Order Comment: PER Kinsey DE JESUS RN OKAY TO DO MORNING LABS EARLY Performed By: #### L 100.0100, L500.2500 #### [id number] [place], [address] ECRCL 52.93 ml/min Normal 50-250 Comment on above: Order Comment: PER Kinsey DE JESUS RN OKAY TO DO MORNING LABS EARLY Performed By: #### L 100.0100, L500.2500 #### [id number] [place], [address] GAP 13 Normal 5-15 Comment on above: Order Comment: PER Kinsey DE JESUS RN OKAY TO DO MORNING LABS EARLY Performed By: #### L 100.0100, L500.2500 #### [id number] [place], [address] GFR/1.73 sq M.predicted among non-blacks MDRD (S/P/Bld) [Vol rate/Area] 57 mL/min/{1.73_m2} Low >60 Comment on above: Order Comment: PER Kinsey DE JESUS RN OKAY TO DO MORNING LABS EARLY Result Comment: mL/m in/1.73m2 CKD-EPI Creatinine Equation (2020) Performed By: #### L 100.0100, L500.2500 #### [address] [place], [address] Glucose [Mass/Vol] 255 mg/dL High 70-99 [facility] Comment on above: Order Comment: PER Kinsey DE JESUS RN OKAY TO DO MORNING LABS EARLY Performed By: #### L 100.0100, L500.2500 #### [address] [place], [address] Potassium [Moles/Vol] 4.3 mmol/L Normal 3.3-5.1 [facility] Comment on above: Order Comment: PER Kinsey DE JESUS RN OKAY TO DO MORNING LABS EARLY Performed By: #### L 100.0100, L500.2500 #### [address] [place], [address] Sodium [Moles/Vol] 135 mmol/L Normal 133-145 [facility] Comment on above: Order Comment: PER Kinsey DE JESUS RN OKAY TO DO MORNING LABS EARLY Performed By: #### L 100.0100, L500.2500 #### [address] [place], [address] Urea nitrogen [Mass/Vol] 17 mg/dL Normal 4-19 Comment on above: Order Comment: PER Kinsey DE JESUS RN OKAY TO DO MORNING LABS EARLY Performed By: #### L 100.0100, L500.2500 #### [address] [place], [address] Bedside Glucoseon 01-08-2025 FINGERSTICK GLU 147 mg/dL High [facility]106 Comment on above: Result Comment: GILDA GEMENT OF PATIENT CARE PER NURSING PROTOCOL Performed By: #### L 501.080 #### [address] [place], [address] FINGERSTICK GLU 246 mg/dL High -106 Comment on above: Result Comment: GILDA GEMENT OF PATIENT CARE PER NURSING PROTOCOL Performed By: #### L 501.080 #### [address] [place], [address] FINGERSTICK GLU 200 mg/dL High -106 Comment on above: Result Comment: GILDA GEMENT OF PATIENT CARE PER NURSING PROTOCOL Performed By: #### L 501.080 #### [address] [place], [address] CBC W/Diff, Automatedon 05-2 Absolute Lymph 1.84 X10 3/uL Normal 0.83-4.51 Comment on above: Order Comment: PER Kinsey DE JESUS RN OKAY TO DO MORNING LABS EARLY Performed By: #### L 100.0100, L500.2500 #### [address] [place], [address] Absolute Neut 6.9 X10 3/uL Normal 2.0-7.7 Comment on above: Order Comment: PER Kinsey DE JESUS RN OKAY TO DO MORNING LABS EARLY Performed By: #### L 100.0100, L500.2500 #### [address] [place], [address] Basophils/100 WBC (Bld) 0.2 % Normal 0-1 Comment on above: Order Comment: PER Kinsey DE JESUS RN OKAY TO DO MORNING LABS EARLY Performed By: #### L 100.0100, L500.2500 #### [address] [place], [address] Eosinophils/100 WBC (Bld) 0.8 % Normal 0-5 Comment on above: Order Comment: PER Kinsey DE JESUS RN OKAY TO DO MORNING LABS EARLY Performed By: #### L 100.0100, L500.2500 #### [address] [place], [address] Erythrocyte distribution width (RBC) [Ratio] 15.0 % High 11.6-14.6 Comment on above: Order Comment: PER Kinsey DE JESUS RN OKAY TO DO MORNING LABS EARLY Performed By: #### L 100.0100, L500.2500 #### [address] [place], [address] Hematocrit (Bld) [Volume fraction] 36.4 % Low 37-47 Comment on above: Order Comment: PER Kinsey DE JESUS RN OKAY TO DO MORNING LABS EARLY Performed By: #### L 100.0100, L500.2500 #### [address] [place], [address] Hemoglobin (Bld) [Mass/Vol] 12.1 g/dL Normal 12.0-15.0 Comment on above: Order Comment: PER Kinsey DE JESUS RN OKAY TO DO MORNING LABS EARLY Performed By: #### L 100.0100, L500.2500 #### [address] [place], [address] IG% 0.600 Normal 0.0-0.9 Comment on above: Order Comment: PER Kinsey DE JESUS RN OKAY TO DO MORNING LABS EARLY Result Comment: IG% - Immature Granulocytes (promyelocytes, myelocytes andmetamyelocytes) > 1% indicates that a LEFT SHIFT is Present. Performed By: #### L 100.0100, L500.2500 #### [address] [place], [address] Lymphocytes/100 WBC (Bld) 19.0 % Normal 19-41 Comment on above: Order Comment: YVON DE JESUS RN OKAY TO DO MORNING LABS EARLY Performed By: #### L 100.0100, L500.2500 #### [address] [place], [address] MCH (RBC) [Entitic mass] 27.8 pg Normal 27.0-32.0 Comment on above: Order Comment: YVON DE JESUS RN OKAY TO DO MORNING LABS EARLY Performed By: #### L 100.0100, L500.2500 #### [address] [place], [address] MCHC (RBC) [Mass/Vol] 33.2 g/dL Normal 32-36 [facility] Comment on above: Order Comment: YVON DE JESUS RN OKAY TO DO MORNING LABS EARLY Performed By: #### L 100.0100, L500.2500 #### [address] [place], [address] MCV (RBC) [Entitic vol] 83.7 fL Normal 81-99 Comment on above: Order Comment: PER Kinsey DE JESUS RN OKAY TO DO MORNING LABS EARLY Performed By: #### L 100.0100, L500.2500 #### [address] [place], [address] Monocytes/100 WBC (Bld) 8.4 % Normal 0-10 Comment on above: Order Comment: PER Kinsey DE JESUS RN OKAY TO DO MORNING LABS EARLY Performed By: #### L 100.0100, L500.2500 #### [address] [place], [address] Neutrophils/100 WBC (Bld) 71.0 % High 47-70 Comment on above: Order Comment: PER Kinsey DE JESUS RN OKAY TO DO MORNING LABS EARLY Performed By: #### L 100.0100, L500.2500 #### [address] [place], [address] Nucleated RBC (Bld) [#/Vol] 0 10*3/uL Normal 0-5 Comment on above: Order Comment: PER Kinsey DE JESUS RN OKAY TO DO MORNING LABS EARLY Performed By: #### L 100.0100, L500.2500 #### [address] [place], [address] Platelet mean volume (Bld) [Entitic vol] 10.1 fL Normal 6.2-12.0 Comment on above: Order Comment: PER Kinsey DE JESUS RN OKAY TO DO MORNING LABS EARLY Performed By: #### L 100.0100, L500.2500 #### [address] [place], [address] Platelets (Bld) [#/Vol] 256 10*3/uL Normal 150-450 Comment on above: Order Comment: PER Kinsey DE JESUS RN OKAY TO DO MORNING LABS EARLY Performed By: #### L 100.0100, L500.2500 #### [address] [place], [address] RBC (Bld) [#/Vol] 4.35 10*6/uL Normal 4.2-5.4 [facility] Comment on above: Order Comment: PER Kinsey DE JESUS RN OKAY TO DO MORNING LABS EARLY Performed By: #### L 100.0100, L500.2500 #### [address] [place], [address] RDW SD 45.6 fl High 35.1-43.9 Comment on above: Order Comment: PER Kinsey DE JESUS RN OKAY TO DO MORNING LABS EARLY Performed By: #### L 100.0100, L500.2500 #### [address] [place], [address] WBC (Bld) [#/Vol] 9.7 10*3/uL Normal 4.4-11.0 [facility] Comment on above: Order Comment: YVON DE JESUS RN OKAY TO DO MORNING LABS EARLY Performed By: #### L 100.0100, L500.2500 #### [address] [place], [address] Lactic Acidon 01-08-2025 Lactate [Moles/Vol] 1.7 mmol/L Normal 0.0-2.0 [facility] Comment on above: Performed By: #### L 503.6005 #### [address] [place], [address] 12 Lead EKGon 01-07-2025 12 Lead EKG Normal Alcohol, Blood (Medical)-Ser umon 01-07-2025 SERUM ETOH < 10.1 Normal <=10.0 Comment on above: Result Comment: This test is for medical purposes only. The legaldefinition of intoxication varies according to local law. Performed By: #### L 505.5000, L300.4310, L501.2450, L500.3400, L500.2500, L300.3900, L501.9100, L100.0100 #### [address] [place], [address] Basic Metabolic Profile (BMP )on 01-07-2025 BUN/CRE 13.4 RATIO Normal 10-20 Comment on above: Performed By: #### L 505.5000, L300.4310, L501.2450, L500.3400, L500.2500, L300.3900, L501.9100, L100.0100 #### [address] [place], [address] Calcium [Mass/Vol] 9.5 mg/dL Normal 7.6-11.0 [facility] Comment on above: Performed By: #### L 505.5000, L300.4310, L501.2450, L500.3400, L500.2500, L300.3900, L501.9100, L100.0100 #### [address] [place], [address] Chloride [Moles/Vol] 97 mmol/L Low 98-108 [facility] Comment on above: Performed By: #### L 505.5000, L300.4310, L501.2450, L500.3400, L500.2500, L300.3900, L501.9100, L100.0100 #### [address] [place], [address] CO2 [Moles/Vol] 20.5 mmol/L Low 21.0-32.0 Comment on above: Performed By: #### L 505.5000, L300.4310, L501.2450, L500.3400, L500.2500, L300.3900, L501.9100, L100.0100 #### [address] [place], [address] Creatinine [Mass/Vol] 1.12 mg/dL Normal 0.70-1.20 [facility] Comment on above: Performed By: #### L 505.5000, L300.4310, L501.2450, L500.3400, L500.2500, L300.3900, L501.9100, L100.0100 #### [address] [place], [place], [phone]) ECRCL 47.33 ml/min Low 50-250 Comment on above: Performed By: #### L 505.5000, L300.4310, L501.2450, L500.3400, L500.2500, L300.3900, L501.9100, L100.0100 #### [address] [place], [place], [id number] GAP 19 High 5-15 Comment on above: Performed By: #### L 505.5000, L300.4310, L501.2450, L500.3400, L500.2500, L300.3900, L501.9100, L100.0100 #### [address] [place], [place], [phone](444) GFR/1.73 sq M.predicted among non-blacks MDRD (S/P/Bld) [Vol rate/Area] 50 mL/min/{1.73_m2} Low >60 Comment on above: Result Comment: mL/m in/1.73m2 CKD-EPI Creatinine Equation (2020) Performed By: #### L 505.5000, L300.4310, L501.2450, L500.3400, L500.2500, L300.3900, L501.9100, L100.0100 #### [address] [place], [place], [address] Glucose [Mass/Vol] 183 mg/dL High 70-99 [facility] Comment on above: Performed By: #### L 505.5000, L300.4310, L501.2450, L500.3400, L500.2500, L300.3900, L501.9100, L100.0100 #### [address] [place], [address] Potassium [Moles/Vol] 4.1 mmol/L Normal 3.3-5.1 [facility] Comment on above: Performed By: #### L 505.5000, L300.4310, L501.2450, L500.3400, L500.2500, L300.3900, L501.9100, L100.0100 #### [address] [place], [address] Sodium [Moles/Vol] 137 mmol/L Normal 133-145 [facility] Comment on above: Performed By: #### L 505.5000, L300.4310, L501.2450, L500.3400, L500.2500, L300.3900, L501.9100, L100.0100 #### [address] [place], [address] Urea nitrogen [Mass/Vol] 15 mg/dL Normal 4-19 Comment on above: Performed By: #### L 505.5000, L300.4310, L501.2450, L500.3400, L500.2500, L300.3900, L501.9100, L100.0100 #### [address] [place], [address] Brain/Head without Contrasto n 01-07-2025 Brain/Head without Contrast Normal CBC W/Diff, Automatedon 05- Absolute Lymph 2.40 X10 3/uL Normal 0.83-4.51 Comment on above: Performed By: #### L 505.5000, L300.4310, L501.2450, L500.3400, L500.2500, L300.3900, L501.9100, L100.0100 #### [address] [place], [address] Absolute Neut 8.7 X10 3/uL High 2.0-7.7 Comment on above: Performed By: #### L 505.5000, L300.4310, L501.2450, L500.3400, L500.2500, L300.3900, L501.9100, L100.0100 #### [address] [place], [address] Basophils/100 WBC (Bld) 0.4 % Normal 0-1 Comment on above: Performed By: #### L 505.5000, L300.4310, L501.2450, L500.3400, L500.2500, L300.3900, L501.9100, L100.0100 #### [address] [place], [address] Eosinophils/100 WBC (Bld) 1.2 % Normal 0-5 Comment on above: Performed By: #### L 505.5000, L300.4310, L501.2450, L500.3400, L500.2500, L300.3900, L501.9100, L100.0100 #### [address] [place], [address] Erythrocyte distribution width (RBC) [Ratio] 15.2 % High 11.6-14.6 Comment on above: Performed By: #### L 505.5000, L300.4310, L501.2450, L500.3400, L500.2500, L300.3900, L501.9100, L100.0100 #### [address] [place], [address] Hematocrit (Bld) [Volume fraction] 43.5 % Normal 37-47 Comment on above: Performed By: #### L 505.5000, L300.4310, L501.2450, L500.3400, L500.2500, L300.3900, L501.9100, L100.0100 #### [address] [place], [address] Hemoglobin (Bld) [Mass/Vol] 14.1 g/dL Normal 12.0-15.0 Comment on above: Performed By: #### L 505.5000, L300.4310, L501.2450, L500.3400, L500.2500, L300.3900, L501.9100, L100.0100 #### [address] [place], [address] IG% 0.500 Normal 0.0-0.9 Comment on above: Result Comment: IG% - Immature Granulocytes (promyelocytes, myelocytes andmetamyelocytes) > 1% indicates that a LEFT SHIFT is Present. Performed By: #### L 505.5000, L300.4310, L501.2450, L500.3400, L500.2500, L300.3900, L501.9100, L100.0100 #### [address] [place], [address] Lymphocytes/100 WBC (Bld) 19.5 % Normal 19-41 Comment on above: Performed By: #### L 505.5000, L300.4310, L501.2450, L500.3400, L500.2500, L300.3900, L501.9100, L100.0100 #### [address] [place], [address] MCH (RBC) [Entitic mass] 28.0 pg Normal 27.0-32.0 Comment on above: Performed By: #### L 505.5000, L300.4310, L501.2450, L500.3400, L500.2500, L300.3900, L501.9100, L100.0100 #### [address] [place], [address] MCHC (RBC) [Mass/Vol] 32.4 g/dL Normal 32-36 [facility] Comment on above: Performed By: #### L 505.5000, L300.4310, L501.2450, L500.3400, L500.2500, L300.3900, L501.9100, L100.0100 #### [address] [place], [address] MCV (RBC) [Entitic vol] 86.3 fL Normal 81-99 Comment on above: Performed By: #### L 505.5000, L300.4310, L501.2450, L500.3400, L500.2500, L300.3900, L501.9100, L100.0100 #### [address] [place], [address] Monocytes/100 WBC (Bld) 8.1 % Normal 0-10 Comment on above: Performed By: #### L 505.5000, L300.4310, L501.2450, L500.3400, L500.2500, L300.3900, L501.9100, L100.0100 #### [address] [place], [address] Neutrophils/100 WBC (Bld) 70.3 % High 47-70 Comment on above: Performed By: #### L 505.5000, L300.4310, L501.2450, L500.3400, L500.2500, L300.3900, L501.9100, L100.0100 #### [address] [place], [address] Nucleated RBC (Bld) [#/Vol] 0 10*3/uL Normal 0-5 Comment on above: Performed By: #### L 505.5000, L300.4310, L501.2450, L500.3400, L500.2500, L300.3900, L501.9100, L100.0100 #### [address] [place], [address] Platelet mean volume (Bld) [Entitic vol] 10.2 fL Normal 6.2-12.0 Comment on above: Performed By: #### L 505.5000, L300.4310, L501.2450, L500.3400, L500.2500, L300.3900, L501.9100, L100.0100 #### [address] [place], [address] Platelets (Bld) [#/Vol] 350 10*3/uL Normal 150-450 Comment on above: Performed By: #### L 505.5000, L300.4310, L501.2450, L500.3400, L500.2500, L300.3900, L501.9100, L100.0100 #### [address] [place], [address] RBC (Bld) [#/Vol] 5.04 10*6/uL Normal 4.2-5.4 [facility] Comment on above: Performed By: #### L 505.5000, L300.4310, L501.2450, L500.3400, L500.2500, L300.3900, L501.9100, L100.0100 #### [address] [place], [address] RDW SD 48.3 fl High 35.1-43.9 Comment on above: Performed By: #### L 505.5000, L300.4310, L501.2450, L500.3400, L500.2500, L300.3900, L501.9100, L100.0100 #### [address] [place], [address] WBC (Bld) [#/Vol] 12.3 10*3/uL High 4.4-11.0 [facility] Comment on above: Performed By: #### L 505.5000, L300.4310, L501.2450, L500.3400, L500.2500, L300.3900, L501.9100, L100.0100 #### [address] [place], [address] Chest 1 View (Portable)on Chest 1 View (Portable) Normal Emergency Department Summary on 01-07-2025 Emergency Department Summary Normal H AND P Exam - Hospitaliston 01-07-2025 H&P Exam - Hospitalist Normal [facility] L499.0042on 01-07-2025 Trop T High Sen 15 ng/L High <=14 Comment on above: Performed By: #### L 499.0042 #### [address] [place], [address] L501.4021on 01-07-2025 Trop T High Sen 16 ng/L High <=14 Comment on above: Performed By: #### L 501.9520, L501.4021 #### [address] [place], [address] Lactic Acidon 01-07-2025 Lactate [Moles/Vol] 2.0 mmol/L Normal 0.0-2.0 [facility] Comment on above: Order Comment: Y Result Comment: Crit ical Result(s) Called at: 2231 by:??FIORELLA HAVEN TO EMMATEAL Results read back by same. Performed By: #### L 503.6005 #### [address] [place], [address] Lipaseon 01-07-2025 Lipase [Catalytic activity/Vol] 29 U/L Normal 13-75 Comment on above: Result Comment: Beverly lindsay note:LIPASE revised reference range effective 22.New Lipase methodology. Expected to produce lower valuesthan the previous assay method.NEW Reference Range: 13 - 75 U/L Performed By: #### L 505.5000, L300.4310, L501.2450, L500.3400, L500.2500, L300.3900, L501.9100, L100.0100 #### [address] [place], [address] Liver Profileon 01-07-2025 Albumin [Mass/Vol] 4.0 g/dL Normal 3.4-4.8 [facility] Comment on above: Performed By: #### L 505.5000, L300.4310, L501.2450, L500.3400, L500.2500, L300.3900, L501.9100, L100.0100 #### [address] [place], [address] ALK PHOS 79 U/L Normal 35-104 Comment on above: Performed By: #### L 505.5000, L300.4310, L501.2450, L500.3400, L500.2500, L300.3900, L501.9100, L100.0100 #### [address] [place], [place], [address] ALT [Catalytic activity/Vol] 30 U/L Normal <=34 Comment on above: Performed By: #### L 505.5000, L300.4310, L501.2450, L500.3400, L500.2500, L300.3900, L501.9100, L100.0100 #### [address] [place], [address] AST [Catalytic activity/Vol] 21 U/L Normal <=31 Comment on above: Performed By: #### L 505.5000, L300.4310, L501.2450, L500.3400, L500.2500, L300.3900, L501.9100, L100.0100 #### [address] [place], [address] Bilirubin [Mass/Vol] 0.26 mg/dL Normal 0.00-1.30 [facility] Comment on above: Performed By: #### L 505.5000, L300.4310, L501.2450, L500.3400, L500.2500, L300.3900, L501.9100, L100.0100 #### [address] [place], [address] Bilirubin.direct [Mass/Vol] 0.14 mg/dL Normal 0.00-0.30 Comment on above: Performed By: #### L 505.5000, L300.4310, L501.2450, L500.3400, L500.2500, L300.3900, L501.9100, L100.0100 #### [address] [place], [address] Globulin (S) [Mass/Vol] 3.0 g/dL Normal 2.2-4.2 Comment on above: Performed By: #### L 505.5000, L300.4310, L501.2450, L500.3400, L500.2500, L300.3900, L501.9100, L100.0100 #### [address] [place], [address] T PROT 7.0 g/dL Normal 5.9-8.4 Comment on above: Performed By: #### L 505.5000, L300.4310, L501.2450, L500.3400, L500.2500, L300.3900, L501.9100, L100.0100 #### [address] [place], [address] Partial Thromboplast Timeon 01-07-2025 aPTT Coag (Bld) [Time] 24.6 s Normal 24.1-36.2 [facility] Comment on above: Performed By: #### L 505.5000, L300.4310, L501.2450, L500.3400, L500.2500, L300.3900, L501.9100, L100.0100 #### [address] [place], [address] Prothrombin Time w/INRon INR Coag (PPP) [Relative time] 0.9 {INR} Normal Comment on above: Performed By: #### L 505.5000, L300.4310, L501.2450, L500.3400, L500.2500, L300.3900, L501.9100, L100.0100 #### [address] [place], [address] PT Coag (PPP) [Time] 12.7 s Normal 11.7-14.9 [facility] Comment on above: Performed By: #### L 505.5000, L300.4310, L501.2450, L500.3400, L500.2500, L300.3900, L501.9100, L100.0100 #### [address] [place], [place], [id number] Thyroid Stim Hormone (TSH)on 01-07-2025 TSH 5.620 uIU/mL High 0.300-4.200 Comment on above: Performed By: #### L 501.9520, L501.4021 #### [address] [place], [address] Urinalysis, Completeon 01-07 BACTERIA 1+ /hpf Normal None Seen Comment on above: Order Comment: CLEAN CATCH Performed By: #### L 400.0001 #### [address] [place], [address] RBC 0-5 SEEN Normal 0-5 Comment on above: Order Comment: CLEAN CATCH Performed By: #### L 400.0001 #### [address] [place], [address] WBC 10-25 SEEN Normal 0-5 Comment on above: Order Comment: CLEAN CATCH Performed By: #### L 400.0001 #### [address] [place], [address] EPI,SQUAMOUS 0 SEEN Normal 5-10 Comment on above: Order Comment: CLEAN CATCH Performed By: #### L 400.0001 #### [address] [place], [address] Mucus Ql (Urine sed) 0 SEEN Normal [facility] Comment on above: Order Comment: CLEAN CATCH Performed By: #### L 400.0001 #### [address] [place], [address] Urine Drug Screen (VISTA)on 01-07-2025 AMPHETAMINES Negative Normal <1000 ng/mL Comment on above: Performed By: #### L 505.5000, L300.4310, L501.2450, L500.3400, L500.2500, L300.3900, L501.9100, L100.0100 #### [address] [place], [address] BARBITIURATES Negative Normal < 200 ng/mL Comment on above: Performed By: #### L 505.5000, L300.4310, L501.2450, L500.3400, L500.2500, L300.3900, L501.9100, L100.0100 #### [address] [place], [address] BENZODIAZIPINE Negative Normal < 200 ng/mL Comment on above: Performed By: #### L 505.5000, L300.4310, L501.2450, L500.3400, L500.2500, L300.3900, L501.9100, L100.0100 #### [address] [place], [place], [phone] BUP Ur Drug Scr Negative Normal < 200 ng/mL Comment on above: Performed By: #### L 505.5000, L300.4310, L501.2450, L500.3400, L500.2500, L300.3900, L501.9100, L100.0100 #### [address] [place], [place], [phone] COCAINE Negative Normal < 300 ng/mL Comment on above: Performed By: #### L 505.5000, L300.4310, L501.2450, L500.3400, L500.2500, L300.3900, L501.9100, L100.0100 #### [address] [place], [place], [phone] Fentanyl Negative Normal Comment on above: Performed By: #### L 505.5000, L300.4310, L501.2450, L500.3400, L500.2500, L300.3900, L501.9100, L100.0100 #### [address] [place], [place], [phone] METHADONE Negative Normal < 300 ng/mL Comment on above: Performed By: #### L 505.5000, L300.4310, L501.2450, L500.3400, L500.2500, L300.3900, L501.9100, L100.0100 #### [address] [place], [place], [id number] OPIATES Negative Normal < 300 ng/mL Comment on above: Performed By: #### L 505.5000, L300.4310, L501.2450, L500.3400, L500.2500, L300.3900, L501.9100, L100.0100 #### [address] [place], [address] OXYCODONE Negative Normal < 100 ng/mL Comment on above: Performed By: #### L 505.5000, L300.4310, L501.2450, L500.3400, L500.2500, L300.3900, L501.9100, L100.0100 #### [address] [place], [address] PCP Negative Normal < 25 ng/mL Comment on above: Performed By: #### L 505.5000, L300.4310, L501.2450, L500.3400, L500.2500, L300.3900, L501.9100, L100.0100 #### [address] [place], [address] THC Negative Normal < 50 ng/mL Comment on above: Performed By: #### L 505.5000, L300.4310, L501.2450, L500.3400, L500.2500, L300.3900, L501.9100, L100.0100 #### [address] [place], [place], [phone] MR/BMS.BPon 12-26-2024 MR/BMS.BP Normal Spine Lumbar (Routine)on Spine Lumbar (Routine) Normal [facility] Shoulder min 2 Viewson 12-09 Shoulder min 2 Views Normal [facility] MR/BMS.BPon 12-03-2024 MR/BMS.BP Normal Basic Metabolic Profile (BMP )on 11-14-2024 BUN/CRE 21.4 RATIO High 10-20 Comment on above: Performed By: #### L 100.0100, L500.2500 #### [address] [place], [address] Calcium [Mass/Vol] 10.1 mg/dL Normal 7.6-11.0 [facility] Comment on above: Performed By: #### L 100.0100, L500.2500 #### [address] [place], [address] Chloride [Moles/Vol] 102 mmol/L Normal 98-108 [facility] Comment on above: Performed By: #### L 100.0100, L500.2500 #### [address] [place], [address] CO2 [Moles/Vol] 24.9 mmol/L Normal 21.0-32.0 Comment on above: Performed By: #### L 100.0100, L500.2500 #### [address] [place], [address] Creatinine [Mass/Vol] 0.94 mg/dL Normal 0.70-1.20 [facility] Comment on above: Performed By: #### L 100.0100, L500.2500 #### [address] [place], [address] ECRCL 58.42 ml/min Normal 50-250 Comment on above: Performed By: #### L 100.0100, L500.2500 #### [address] [place], [address] GAP 12 Normal 5-15 Comment on above: Performed By: #### L 100.0100, L500.2500 #### [address] [place], [address] GFR/1.73 sq M.predicted among non-blacks MDRD (S/P/Bld) [Vol rate/Area] 62 mL/min/{1.73_m2} Normal >60 Comment on above: Result Comment: mL/m in/1.73m2 CKD-EPI Creatinine Equation (2020) Performed By: #### L 100.0100, L500.2500 #### [address] [place], [address] Glucose [Mass/Vol] 104 mg/dL High 70-99 [facility] Comment on above: Performed By: #### L 100.0100, L500.2500 #### [address] [place], [address] Potassium [Moles/Vol] 4.7 mmol/L Normal 3.3-5.1 [facility] Comment on above: Performed By: #### L 100.0100, L500.2500 #### [address] [place], [address] Sodium [Moles/Vol] 139 mmol/L Normal 133-145 [facility] Comment on above: Performed By: #### L 100.0100, L500.2500 #### [address] [place], [address] Urea nitrogen [Mass/Vol] 20 mg/dL High 4-19 Comment on above: Performed By: #### L 100.0100, L500.2500 #### [address] [place], [address] CBC W/Diff, Automatedon 04-0 -2024 Absolute Lymph 1.74 X10 3/uL Normal 0.83-4.51 Comment on above: Performed By: #### L 100.0100, L500.2500 #### [address] [place], [address] Absolute Neut 5.3 X10 3/uL Normal 2.0-7.7 Comment on above: Performed By: #### L 100.0100, L500.2500 #### [address] [place], [address] Basophils/100 WBC (Bld) 0.4 % Normal 0-1 Comment on above: Performed By: #### L 100.0100, L500.2500 #### [address] [place], [address] Eosinophils/100 WBC (Bld) 3.9 % Normal 0-5 Comment on above: Performed By: #### L 100.0100, L500.2500 #### [address] [place], [address] Erythrocyte distribution width (RBC) [Ratio] 15.3 % High 11.6-14.6 Comment on above: Performed By: #### L 100.0100, L500.2500 #### [address] [place], [address] Hematocrit (Bld) [Volume fraction] 42.2 % Normal 37-47 Comment on above: Performed By: #### L 100.0100, L500.2500 #### [address] [place], [address] Hemoglobin (Bld) [Mass/Vol] 13.7 g/dL Normal 12.0-15.0 Comment on above: Performed By: #### L 100.0100, L500.2500 #### [address] [place], [address] IG% 0.400 Normal 0.0-0.9 Comment on above: Result Comment: IG% - Immature Granulocytes (promyelocytes, myelocytes andmetamyelocytes) > 1% indicates that a LEFT SHIFT is Present. Performed By: #### L 100.0100, L500.2500 #### [address] [place], [address] Lymphocytes/100 WBC (Bld) 22.0 % Normal 19-41 Comment on above: Performed By: #### L 100.0100, L500.2500 #### [address] [place], [address] MCH (RBC) [Entitic mass] 27.6 pg Normal 27.0-32.0 Comment on above: Performed By: #### L 100.0100, L500.2500 #### [address] [place], [address] MCHC (RBC) [Mass/Vol] 32.5 g/dL Normal 32-36 [facility] Comment on above: Performed By: #### L 100.0100, L500.2500 #### [address] [place], [address] MCV (RBC) [Entitic vol] 85.1 fL Normal 81-99 Comment on above: Performed By: #### L 100.0100, L500.2500 #### [address] [place], [address] Monocytes/100 WBC (Bld) 6.4 % Normal 0-10 Comment on above: Performed By: #### L 100.0100, L500.2500 #### [address] [place], [address] Neutrophils/100 WBC (Bld) 66.9 % Normal 47-70 Comment on above: Performed By: #### L 100.0100, L500.2500 #### [address] [place], [address] Nucleated RBC (Bld) [#/Vol] 0 10*3/uL Normal 0-5 Comment on above: Performed By: #### L 100.0100, L500.2500 #### [address] [place], [address] Platelet mean volume (Bld) [Entitic vol] 9.5 fL Normal 6.2-12.0 Comment on above: Performed By: #### L 100.0100, L500.2500 #### [address] [place], [address] Platelets (Bld) [#/Vol] 349 10*3/uL Normal 150-450 Comment on above: Performed By: #### L 100.0100, L500.2500 #### [address] [place], [address] RBC (Bld) [#/Vol] 4.96 10*6/uL Normal 4.2-5.4 [facility] Comment on above: Performed By: #### L 100.0100, L500.2500 #### [address] [place], [address] RDW SD 46.8 fl High 35.1-43.9 Comment on above: Performed By: #### L 100.0100, L500.2500 #### [address] [place], [address] WBC (Bld) [#/Vol] 7.9 10*3/uL Normal 4.4-11.0 [facility] Comment on above: Performed By: #### L 100.0100, L500.2500 #### [address] [place], [address] Emergency Department Summary on 11-14-2024 Emergency Department Summary Normal Femur Min 2 Viewson 11-15-19 25 Femur Min 2 Views Normal HIP, UNI W/ Pelvis 2-3 Views on 11-14-2024 HIP, UNI W/ Pelvis 2-3 Views Normal Basic Metabolic Profile (BMP )on 10-22-2024 BUN Normal 4-19 Comment on above: Result Comment: Canc elled via OM: Order cancelled - Patient discharged Performed By: #### L 100.0100, L500.2500 #### [address] [place], [address] BUN/CRE Normal 10-20 Comment on above: Result Comment: Canc elled via OM: Order cancelled - Patient discharged Performed By: #### L 100.0100, L500.2500 #### [address] [place], [address] Calcium Normal 7.6-11.0 Comment on above: Result Comment: Canc elled via OM: Order cancelled - Patient discharged Performed By: #### L 100.0100, L500.2500 #### [address] [place], [address] CL Normal 98-108 Comment on above: Result Comment: Canc elled via OM: Order cancelled - Patient discharged Performed By: #### L 100.0100, L500.2500 #### [address] [place], [address] CO2 Normal 21.0-32.0 Comment on above: Result Comment: Canc elled via OM: Order cancelled - Patient discharged Performed By: #### L 100.0100, L500.2500 #### [address] [place], [address] CREAT,SERUM Normal 0.70-1.20 Comment on above: Result Comment: Canc elled via OM: Order cancelled - Patient discharged Performed By: #### L 100.0100, L500.2500 #### [address] [place], [address] eGFR Normal >60 Comment on above: Result Comment: Canc elled via OM: Order cancelled - Patient discharged Performed By: #### L 100.0100, L500.2500 #### [address] [place], [address] GAP Normal 5-15 Comment on above: Result Comment: Canc elled via OM: Order cancelled - Patient discharged Performed By: #### L 100.0100, L500.2500 #### [address] [place], [address] GLU Normal 70-99 Comment on above: Result Comment: Canc elled via OM: Order cancelled - Patient discharged Performed By: #### L 100.0100, L500.2500 #### [address] [place], [address] Potassium Normal 3.3-5.1 Comment on above: Result Comment: Canc elled via OM: Order cancelled - Patient discharged Performed By: #### L 100.0100, L500.2500 #### [address] [place], [address] Basic Metabolic Profile (BMP) Normal 133-145 Comment on above: Result Comment: Canc elled via OM: Order cancelled - Patient discharged Performed By: #### L 100.0100, L500.2500 #### [address] [place], [address] CBC W/Diff, Automatedon 03-1 Absolute Neut Normal 2.0-7.7 Comment on above: Result Comment: Canc elled via OM: Order cancelled - Patient discharged Performed By: #### L 100.0100, L500.2500 #### [address] [place], [address] HCT Normal 37-47 Comment on above: Result Comment: Canc elled via OM: Order cancelled - Patient discharged Performed By: #### L 100.0100, L500.2500 #### [address] [place], [address] HGB Normal 12.0-15.0 Comment on above: Result Comment: Canc elled via OM: Order cancelled - Patient discharged Performed By: #### L 100.0100, L500.2500 #### [address] [place], [address] MCH Normal 27.0-32.0 Comment on above: Result Comment: Canc elled via OM: Order cancelled - Patient discharged Performed By: #### L 100.0100, L500.2500 #### [address] [place], [address] MCHC Normal 32-36 Comment on above: Result Comment: Canc elled via OM: Order cancelled - Patient discharged Performed By: #### L 100.0100, L500.2500 #### [address] [place], [address] MCV Normal 81-99 Comment on above: Result Comment: Canc elled via OM: Order cancelled - Patient discharged Performed By: #### L 100.0100, L500.2500 #### [address] [place], [address] NEUT% Normal 47-70 Comment on above: Result Comment: Canc elled via OM: Order cancelled - Patient discharged Performed By: #### L 100.0100, L500.2500 #### [address] [place], [address] PLT Normal 150-450 Comment on above: Result Comment: Canc elled via OM: Order cancelled - Patient discharged Performed By: #### L 100.0100, L500.2500 #### [address] [place], [address] RBC Normal 4.2-5.4 Comment on above: Result Comment: Canc elled via OM: Order cancelled - Patient discharged Performed By: #### L 100.0100, L500.2500 #### [address] [place], [address] RDW CV Normal 11.6-14.6 Comment on above: Result Comment: Canc elled via OM: Order cancelled - Patient discharged Performed By: #### L 100.0100, L500.2500 #### [address] [place], [address] RDW SD Normal 35.1-43.9 Comment on above: Result Comment: Canc elled via OM: Order cancelled - Patient discharged Performed By: #### L 100.0100, L500.2500 #### [address] [place], [address] WBC Normal 4.4-11.0 Comment on above: Result Comment: Canc elled via OM: Order cancelled - Patient discharged Performed By: #### L 100.0100, L500.2500 #### [address] [place], [address] Basic Metabolic Profile (BMP )on 10-21-2024 BUN Normal 4-19 Comment on above: Result Comment: Canc elled via OM: Order cancelled - Patient discharged Performed By: #### L 100.0100, L500.2500 #### [address] [place], [address] BUN/CRE Normal 10-20 Comment on above: Result Comment: Canc elled via OM: Order cancelled - Patient discharged Performed By: #### L 100.0100, L500.2500 #### [address] [place], [address] Calcium Normal 7.6-11.0 Comment on above: Result Comment: Canc elled via OM: Order cancelled - Patient discharged Performed By: #### L 100.0100, L500.2500 #### [address] [place], [address] CL Normal 98-108 Comment on above: Result Comment: Canc elled via OM: Order cancelled - Patient discharged Performed By: #### L 100.0100, L500.2500 #### [address] [place], [address] CO2 Normal 21.0-32.0 Comment on above: Result Comment: Canc elled via OM: Order cancelled - Patient discharged Performed By: #### L 100.0100, L500.2500 #### [address] [place], [address] CREAT,SERUM Normal 0.70-1.20 Comment on above: Result Comment: Canc elled via OM: Order cancelled - Patient discharged Performed By: #### L 100.0100, L500.2500 #### [address] [place], [address] eGFR Normal >60 Comment on above: Result Comment: Canc elled via OM: Order cancelled - Patient discharged Performed By: #### L 100.0100, L500.2500 #### [address] [place], [address] GAP Normal 5-15 Comment on above: Result Comment: Canc elled via OM: Order cancelled - Patient discharged Performed By: #### L 100.0100, L500.2500 #### [address] [place], [address] GLU Normal 70-99 Comment on above: Result Comment: Canc elled via OM: Order cancelled - Patient discharged Performed By: #### L 100.0100, L500.2500 #### [address] [place], [address] Potassium Normal 3.3-5.1 Comment on above: Result Comment: Canc elled via OM: Order cancelled - Patient discharged Performed By: #### L 100.0100, L500.2500 #### [address] [place], [address] Basic Metabolic Profile (BMP) Normal 133-145 Comment on above: Result Comment: Canc elled via OM: Order cancelled - Patient discharged Performed By: #### L 100.0100, L500.2500 #### [address] [place], [address] CBC W/Diff, Automatedon 03-1 Absolute Neut Normal 2.0-7.7 Comment on above: Result Comment: Canc elled via OM: Order cancelled - Patient discharged Performed By: #### L 100.0100, L500.2500 #### [address] [place], [address] HCT Normal 37-47 Comment on above: Result Comment: Canc elled via OM: Order cancelled - Patient discharged Performed By: #### L 100.0100, L500.2500 #### [address] [place], [address] HGB Normal 12.0-15.0 Comment on above: Result Comment: Canc elled via OM: Order cancelled - Patient discharged Performed By: #### L 100.0100, L500.2500 #### [address] [place], [address] MCH Normal 27.0-32.0 Comment on above: Result Comment: Canc elled via OM: Order cancelled - Patient discharged Performed By: #### L 100.0100, L500.2500 #### [address] [place], [address] MCHC Normal 32-36 Comment on above: Result Comment: Canc elled via OM: Order cancelled - Patient discharged Performed By: #### L 100.0100, L500.2500 #### [address] [place], [address] MCV Normal 81-99 Comment on above: Result Comment: Canc elled via OM: Order cancelled - Patient discharged Performed By: #### L 100.0100, L500.2500 #### [address] [place], [address] NEUT% Normal 47-70 Comment on above: Result Comment: Canc elled via OM: Order cancelled - Patient discharged Performed By: #### L 100.0100, L500.2500 #### [address] [place], [address] PLT Normal 150-450 Comment on above: Result Comment: Canc elled via OM: Order cancelled - Patient discharged Performed By: #### L 100.0100, L500.2500 #### [address] [place], [address] RBC Normal 4.2-5.4 Comment on above: Result Comment: Canc elled via OM: Order cancelled - Patient discharged Performed By: #### L 100.0100, L500.2500 #### [address] [place], [address] RDW CV Normal 11.6-14.6 Comment on above: Result Comment: Canc elled via OM: Order cancelled - Patient discharged Performed By: #### L 100.0100, L500.2500 #### [address] [place], [address] RDW SD Normal 35.1-43.9 Comment on above: Result Comment: Canc elled via OM: Order cancelled - Patient discharged Performed By: #### L 100.0100, L500.2500 #### [address] [place], [address] WBC Normal 4.4-11.0 Comment on above: Result Comment: Canc elled via OM: Order cancelled - Patient discharged Performed By: #### L 100.0100, L500.2500 #### [address] [place], [address] L/S Spine Min 4 Viewson 10-11 L/S Spine Min 4 Views Normal [facility] Basic Metabolic Profile (BMP )on 10-20-2024 BUN Normal 4-19 Comment on above: Result Comment: Canc elled via OM: Order cancelled - Patient discharged Performed By: #### L 100.0100, L500.2500 #### [address] [place], [address] BUN/CRE Normal 10-20 Comment on above: Result Comment: Canc elled via OM: Order cancelled - Patient discharged Performed By: #### L 100.0100, L500.2500 #### [address] [place], [address] Calcium Normal 7.6-11.0 Comment on above: Result Comment: Canc elled via OM: Order cancelled - Patient discharged Performed By: #### L 100.0100, L500.2500 #### [address] [place], [address] CL Normal 98-108 Comment on above: Result Comment: Canc elled via OM: Order cancelled - Patient discharged Performed By: #### L 100.0100, L500.2500 #### [address] [place], [address] CO2 Normal 21.0-32.0 Comment on above: Result Comment: Canc elled via OM: Order cancelled - Patient discharged Performed By: #### L 100.0100, L500.2500 #### [address] [place], [address] CREAT,SERUM Normal 0.70-1.20 Comment on above: Result Comment: Canc elled via OM: Order cancelled - Patient discharged Performed By: #### L 100.0100, L500.2500 #### [address] [place], [address] eGFR Normal >60 Comment on above: Result Comment: Canc elled via OM: Order cancelled - Patient discharged Performed By: #### L 100.0100, L500.2500 #### [address] [place], [address] GAP Normal 5-15 Comment on above: Result Comment: Canc elled via OM: Order cancelled - Patient discharged Performed By: #### L 100.0100, L500.2500 #### [address] [place], [address] GLU Normal 70-99 Comment on above: Result Comment: Canc elled via OM: Order cancelled - Patient discharged Performed By: #### L 100.0100, L500.2500 #### [address] [place], [address] Potassium Normal 3.3-5.1 Comment on above: Result Comment: Canc elled via OM: Order cancelled - Patient discharged Performed By: #### L 100.0100, L500.2500 #### [address] [place], [address] Basic Metabolic Profile (BMP) Normal 133-145 Comment on above: Result Comment: Canc elled via OM: Order cancelled - Patient discharged Performed By: #### L 100.0100, L500.2500 #### [address] [place], [address] CBC W/Diff, Automatedon 03-1 0-2024 Absolute Neut Normal 2.0-7.7 Comment on above: Result Comment: Canc elled via OM: Order cancelled - Patient discharged Performed By: #### L 100.0100, L500.2500 #### [address] [place], [address] HCT Normal 37-47 Comment on above: Result Comment: Canc elled via OM: Order cancelled - Patient discharged Performed By: #### L 100.0100, L500.2500 #### [address] [place], [address] HGB Normal 12.0-15.0 Comment on above: Result Comment: Canc elled via OM: Order cancelled - Patient discharged Performed By: #### L 100.0100, L500.2500 #### [address] [place], [address] MCH Normal 27.0-32.0 Comment on above: Result Comment: Canc elled via OM: Order cancelled - Patient discharged Performed By: #### L 100.0100, L500.2500 #### [address] [place], [address] MCHC Normal 32-36 Comment on above: Result Comment: Canc elled via OM: Order cancelled - Patient discharged Performed By: #### L 100.0100, L500.2500 #### [address] [place], [address] MCV Normal 81-99 Comment on above: Result Comment: Canc elled via OM: Order cancelled - Patient discharged Performed By: #### L 100.0100, L500.2500 #### [address] [place], [address] NEUT% Normal 47-70 Comment on above: Result Comment: Canc elled via OM: Order cancelled - Patient discharged Performed By: #### L 100.0100, L500.2500 #### [address] [place], [address] PLT Normal 150-450 Comment on above: Result Comment: Canc elled via OM: Order cancelled - Patient discharged Performed By: #### L 100.0100, L500.2500 #### [address] [place], [address] RBC Normal 4.2-5.4 Comment on above: Result Comment: Canc elled via OM: Order cancelled - Patient discharged Performed By: #### L 100.0100, L500.2500 #### [address] [place], [address] RDW CV Normal 11.6-14.6 Comment on above: Result Comment: Canc elled via OM: Order cancelled - Patient discharged Performed By: #### L 100.0100, L500.2500 #### [address] [place], [address] RDW SD Normal 35.1-43.9 Comment on above: Result Comment: Canc elled via OM: Order cancelled - Patient discharged Performed By: #### L 100.0100, L500.2500 #### [address] [place], [address] WBC Normal 4.4-11.0 Comment on above: Result Comment: Canc elled via OM: Order cancelled - Patient discharged Performed By: #### L 100.0100, L500.2500 #### [address] [place], [address] Basic Metabolic Profile (BMP )on 10-19-2024 BUN Normal 4-19 Comment on above: Result Comment: Canc elled via OM: Order cancelled - Patient discharged Performed By: #### L 500.2500, L100.0100 #### [address] [place], [address] BUN/CRE Normal 10-20 Comment on above: Result Comment: Canc elled via OM: Order cancelled - Patient discharged Performed By: #### L 500.2500, L100.0100 #### [address] [place], [address] Calcium Normal 7.6-11.0 Comment on above: Result Comment: Canc elled via OM: Order cancelled - Patient discharged Performed By: #### L 500.2500, L100.0100 #### [address] [place], [address] CL Normal 98-108 Comment on above: Result Comment: Canc elled via OM: Order cancelled - Patient discharged Performed By: #### L 500.2500, L100.0100 #### [address] [place], [address] CO2 Normal 21.0-32.0 Comment on above: Result Comment: Canc elled via OM: Order cancelled - Patient discharged Performed By: #### L 500.2500, L100.0100 #### [address] [place], [address] CREAT,SERUM Normal 0.70-1.20 Comment on above: Result Comment: Canc elled via OM: Order cancelled - Patient discharged Performed By: #### L 500.2500, L100.0100 #### [address] [place], [address] eGFR Normal >60 Comment on above: Result Comment: Canc elled via OM: Order cancelled - Patient discharged Performed By: #### L 500.2500, L100.0100 #### [address] [place], [address] GAP Normal 5-15 Comment on above: Result Comment: Canc elled via OM: Order cancelled - Patient discharged Performed By: #### L 500.2500, L100.0100 #### [address] [place], [address] GLU Normal 70-99 Comment on above: Result Comment: Canc elled via OM: Order cancelled - Patient discharged Performed By: #### L 500.2500, L100.0100 #### [address] [place], [address] Potassium Normal 3.3-5.1 Comment on above: Result Comment: Canc elled via OM: Order cancelled - Patient discharged Performed By: #### L 500.2500, L100.0100 #### [address] [place], [address] Basic Metabolic Profile (BMP) Normal 133-145 Comment on above: Result Comment: Canc elled via OM: Order cancelled - Patient discharged Performed By: #### L 500.2500, L100.0100 #### [address] [place], [address] CBC W/Diff, Automatedon 03-0 -2024 Absolute Neut Normal 2.0-7.7 Comment on above: Result Comment: Canc elled via OM: Order cancelled - Patient discharged Performed By: #### L 500.2500, L100.0100 #### [address] [place], [address] HCT Normal 37-47 Comment on above: Result Comment: Canc elled via OM: Order cancelled - Patient discharged Performed By: #### L 500.2500, L100.0100 #### [address] [place], [address] HGB Normal 12.0-15.0 Comment on above: Result Comment: Canc elled via OM: Order cancelled - Patient discharged Performed By: #### L 500.2500, L100.0100 #### [address] [place], [address] MCH Normal 27.0-32.0 Comment on above: Result Comment: Canc elled via OM: Order cancelled - Patient discharged Performed By: #### L 500.2500, L100.0100 #### [address] [place], [address] MCHC Normal 32-36 Comment on above: Result Comment: Canc elled via OM: Order cancelled - Patient discharged Performed By: #### L 500.2500, L100.0100 #### [address] [place], [address] MCV Normal 81-99 Comment on above: Result Comment: Canc elled via OM: Order cancelled - Patient discharged Performed By: #### L 500.2500, L100.0100 #### [address] [place], [address] NEUT% Normal 47-70 Comment on above: Result Comment: Canc elled via OM: Order cancelled - Patient discharged Performed By: #### L 500.2500, L100.0100 #### [address] [place], [address] PLT Normal 150-450 Comment on above: Result Comment: Canc elled via OM: Order cancelled - Patient discharged Performed By: #### L 500.2500, L100.0100 #### [address] [place], [address] RBC Normal 4.2-5.4 Comment on above: Result Comment: Canc elled via OM: Order cancelled - Patient discharged Performed By: #### L 500.2500, L100.0100 #### [address] [place], [address] RDW CV Normal 11.6-14.6 Comment on above: Result Comment: Canc elled via OM: Order cancelled - Patient discharged Performed By: #### L 500.2500, L100.0100 #### [address] [place], [address] RDW SD Normal 35.1-43.9 Comment on above: Result Comment: Canc elled via OM: Order cancelled - Patient discharged Performed By: #### L 500.2500, L100.0100 #### [address] [place], [address] WBC Normal 4.4-11.0 Comment on above: Result Comment: Canc elled via OM: Order cancelled - Patient discharged Performed By: #### L 500.2500, L100.0100 #### [address] [place], [address] Basic Metabolic Profile (BMP )on 10-18-2024 BUN Normal 4-19 Comment on above: Result Comment: Canc elled via OM: Order cancelled - Patient discharged Performed By: #### L 100.0100, L500.2500 #### [address] [place], [address] BUN/CRE Normal 10-20 Comment on above: Result Comment: Canc elled via OM: Order cancelled - Patient discharged Performed By: #### L 100.0100, L500.2500 #### [address] [place], [address] Calcium Normal 7.6-11.0 Comment on above: Result Comment: Canc elled via OM: Order cancelled - Patient discharged Performed By: #### L 100.0100, L500.2500 #### [address] [place], [address] CL Normal 98-108 Comment on above: Result Comment: Canc elled via OM: Order cancelled - Patient discharged Performed By: #### L 100.0100, L500.2500 #### [address] [place], [address] CO2 Normal 21.0-32.0 Comment on above: Result Comment: Canc elled via OM: Order cancelled - Patient discharged Performed By: #### L 100.0100, L500.2500 #### [address] [place], [address] CREAT,SERUM Normal 0.70-1.20 Comment on above: Result Comment: Canc elled via OM: Order cancelled - Patient discharged Performed By: #### L 100.0100, L500.2500 #### [address] [place], [address] eGFR Normal >60 Comment on above: Result Comment: Canc elled via OM: Order cancelled - Patient discharged Performed By: #### L 100.0100, L500.2500 #### [address] [place], [address] GAP Normal 5-15 Comment on above: Result Comment: Canc elled via OM: Order cancelled - Patient discharged Performed By: #### L 100.0100, L500.2500 #### [address] [place], [address] GLU Normal 70-99 Comment on above: Result Comment: Canc elled via OM: Order cancelled - Patient discharged Performed By: #### L 100.0100, L500.2500 #### [address] [place], [address] Potassium Normal 3.3-5.1 Comment on above: Result Comment: Canc elled via OM: Order cancelled - Patient discharged Performed By: #### L 100.0100, L500.2500 #### [address] [place], [address] Basic Metabolic Profile (BMP) Normal 133-145 Comment on above: Result Comment: Canc elled via OM: Order cancelled - Patient discharged Performed By: #### L 100.0100, L500.2500 #### [address] [place], [address] CBC W/Diff, Automatedon 03-0 -2024 Absolute Neut Normal 2.0-7.7 Comment on above: Result Comment: Canc elled via OM: Order cancelled - Patient discharged Performed By: #### L 100.0100, L500.2500 #### [address] [place], [address] HCT Normal 37-47 Comment on above: Result Comment: Canc elled via OM: Order cancelled - Patient discharged Performed By: #### L 100.0100, L500.2500 #### [address] [place], [address] HGB Normal 12.0-15.0 Comment on above: Result Comment: Canc elled via OM: Order cancelled - Patient discharged Performed By: #### L 100.0100, L500.2500 #### [address] [place], [address] MCH Normal 27.0-32.0 Comment on above: Result Comment: Canc elled via OM: Order cancelled - Patient discharged Performed By: #### L 100.0100, L500.2500 #### [address] [place], [address] MCHC Normal 32-36 Comment on above: Result Comment: Canc elled via OM: Order cancelled - Patient discharged Performed By: #### L 100.0100, L500.2500 #### [address] [place], [address] MCV Normal 81-99 Comment on above: Result Comment: Canc elled via OM: Order cancelled - Patient discharged Performed By: #### L 100.0100, L500.2500 #### [address] [place], [address] NEUT% Normal 47-70 Comment on above: Result Comment: Canc elled via OM: Order cancelled - Patient discharged Performed By: #### L 100.0100, L500.2500 #### [address] [place], [address] PLT Normal 150-450 Comment on above: Result Comment: Canc elled via OM: Order cancelled - Patient discharged Performed By: #### L 100.0100, L500.2500 #### [address] [place], [address] RBC Normal 4.2-5.4 Comment on above: Result Comment: Canc elled via OM: Order cancelled - Patient discharged Performed By: #### L 100.0100, L500.2500 #### [address] [place], [address] RDW CV Normal 11.6-14.6 Comment on above: Result Comment: Canc elled via OM: Order cancelled - Patient discharged Performed By: #### L 100.0100, L500.2500 #### [address] [place], [address] RDW SD Normal 35.1-43.9 Comment on above: Result Comment: Canc elled via OM: Order cancelled - Patient discharged Performed By: #### L 100.0100, L500.2500 #### [address] [place], [address] WBC Normal 4.4-11.0 Comment on above: Result Comment: Canc elled via OM: Order cancelled - Patient discharged Performed By: #### L 100.0100, L500.2500 #### [address] [place], [address] Basic Metabolic Profile (BMP )on 10-17-2024 BUN/CRE 14.7 RATIO Normal 10-20 Comment on above: Performed By: #### L 500.2500, L100.0100 #### [address] [place], [address] Calcium [Mass/Vol] 9.0 mg/dL Normal 7.6-11.0 [facility] Comment on above: Performed By: #### L 500.2500, L100.0100 #### [address] [place], [address] Chloride [Moles/Vol] 107 mmol/L Normal 98-108 [facility] Comment on above: Performed By: #### L 500.2500, L100.0100 #### [address] [place], [address] CO2 [Moles/Vol] 22.0 mmol/L Normal 21.0-32.0 Comment on above: Performed By: #### L 500.2500, L100.0100 #### [address] [place], [address] Creatinine [Mass/Vol] 0.82 mg/dL Normal 0.70-1.20 [facility] Comment on above: Performed By: #### L 500.2500, L100.0100 #### [address] [place], [address] ECRCL 66.67 ml/min Normal 50-250 Comment on above: Performed By: #### L 500.2500, L100.0100 #### [address] [place], [address] GAP 11 Normal 5-15 Comment on above: Performed By: #### L 500.2500, L100.0100 #### [address] [place], [address] GFR/1.73 sq M.predicted among non-blacks MDRD (S/P/Bld) [Vol rate/Area] 73 mL/min/{1.73_m2} Normal >60 Comment on above: Result Comment: mL/m in/1.73m2 CKD-EPI Creatinine Equation (2020) Performed By: #### L 500.2500, L100.0100 #### [address] [place], [address] Glucose [Mass/Vol] 159 mg/dL High 70-99 [facility] Comment on above: Performed By: #### L 500.2500, L100.0100 #### [address] [place], [address] Potassium [Moles/Vol] 3.8 mmol/L Normal 3.3-5.1 [facility] Comment on above: Performed By: #### L 500.2500, L100.0100 #### [address] [place], [address] Sodium [Moles/Vol] 141 mmol/L Normal 133-145 [facility] Comment on above: Performed By: #### L 500.2500, L100.0100 #### [address] [place], [address] Urea nitrogen [Mass/Vol] 12 mg/dL Normal 4-19 Comment on above: Performed By: #### L 500.2500, L100.0100 #### [address] [place], [address] Bedside Glucoseon 10-17-2024 FINGERSTICK GLU 209 mg/dL High 74-106 Comment on above: Result Comment: GILDA GEMENT OF PATIENT CARE PER NURSING PROTOCOL Performed By: #### L 501.080 #### [address] [place], [address] FINGERSTICK GLU 157 mg/dL High 74-106 Comment on above: Result Comment: GILDA GEMENT OF PATIENT CARE PER NURSING PROTOCOL Performed By: #### L 501.080 #### [address] [place], [address] CBC W/Diff, Automatedon 03-0 Absolute Lymph 2.05 X10 3/uL Normal 0.83-4.51 Comment on above: Performed By: #### L 500.2500, L100.0100 #### [address] [place], [address] Absolute Neut 4.0 X10 3/uL Normal 2.0-7.7 Comment on above: Performed By: #### L 500.2500, L100.0100 #### [address] [place], [address] Basophils/100 WBC (Bld) 0.4 % Normal 0-1 Comment on above: Performed By: #### L 500.2500, L100.0100 #### [address] [place], [address] Eosinophils/100 WBC (Bld) 5.0 % Normal 0-5 Comment on above: Performed By: #### L 500.2500, L100.0100 #### [address] [place], [address] Erythrocyte distribution width (RBC) [Ratio] 15.0 % High 11.6-14.6 Comment on above: Performed By: #### L 500.2500, L100.0100 #### [address] [place], [address] Hematocrit (Bld) [Volume fraction] 37.2 % Normal 37-47 Comment on above: Performed By: #### L 500.2500, L100.0100 #### [address] [place], [address] Hemoglobin (Bld) [Mass/Vol] 12.2 g/dL Normal 12.0-15.0 Comment on above: Performed By: #### L 500.2500, L100.0100 #### [address] [place], [address] IG% 0.300 Normal 0.0-0.9 Comment on above: Result Comment: IG% - Immature Granulocytes (promyelocytes, myelocytes andmetamyelocytes) > 1% indicates that a LEFT SHIFT is Present. Performed By: #### L 500.2500, L100.0100 #### [address] [place], [address] Lymphocytes/100 WBC (Bld) 29.4 % Normal 19-41 Comment on above: Performed By: #### L 500.2500, L100.0100 #### [address] [place], [address] MCH (RBC) [Entitic mass] 27.5 pg Normal 27.0-32.0 Comment on above: Performed By: #### L 500.2500, L100.0100 #### [address] [place], [address] MCHC (RBC) [Mass/Vol] 32.8 g/dL Normal 32-36 [facility] Comment on above: Performed By: #### L 500.2500, L100.0100 #### [address] [place], [address] MCV (RBC) [Entitic vol] 84.0 fL Normal 81-99 Comment on above: Performed By: #### L 500.2500, L100.0100 #### [address] [place], [address] Monocytes/100 WBC (Bld) 7.9 % Normal 0-10 Comment on above: Performed By: #### L 500.2500, L100.0100 #### [address] [place], [address] Neutrophils/100 WBC (Bld) 57.0 % Normal 47-70 Comment on above: Performed By: #### L 500.2500, L100.0100 #### [address] [place], [address] Nucleated RBC (Bld) [#/Vol] 0 10*3/uL Normal 0-5 Comment on above: Performed By: #### L 500.2500, L100.0100 #### [address] [place], [address] Platelet mean volume (Bld) [Entitic vol] 9.8 fL Normal 6.2-12.0 Comment on above: Performed By: #### L 500.2500, L100.0100 #### [address] [place], [address] Platelets (Bld) [#/Vol] 256 10*3/uL Normal 150-450 Comment on above: Performed By: #### L 500.2500, L100.0100 #### [address] [place], [address] RBC (Bld) [#/Vol] 4.43 10*6/uL Normal 4.2-5.4 [facility] Comment on above: Performed By: #### L 500.2500, L100.0100 #### [address] [place], [address] RDW SD 45.6 fl High 35.1-43.9 Comment on above: Performed By: #### L 500.2500, L100.0100 #### [address] [place], [address] WBC (Bld) [#/Vol] 7.0 10*3/uL Normal 4.4-11.0 [facility] Comment on above: Performed By: #### L 500.2500, L100.0100 #### [address] [place], [address] Discharge Instructionon 030 Discharge Instruction Normal [facility] Basic Metabolic Profile (BMP )on 10-16-2024 BUN/CRE 12.4 RATIO Normal 10-20 Comment on above: Performed By: #### L 100.0100, L500.2500 #### [address] [place], [address] Calcium [Mass/Vol] 8.7 mg/dL Normal 7.6-11.0 [facility] Comment on above: Performed By: #### L 100.0100, L500.2500 #### [address] [place], [address] Chloride [Moles/Vol] 108 mmol/L Normal 98-108 [facility] Comment on above: Performed By: #### L 100.0100, L500.2500 #### [address] [place], [address] CO2 [Moles/Vol] 23.0 mmol/L Normal 21.0-32.0 Comment on above: Performed By: #### L 100.0100, L500.2500 #### [address] [place], [address] Creatinine [Mass/Vol] 0.79 mg/dL Normal 0.70-1.20 [facility] Comment on above: Performed By: #### L 100.0100, L500.2500 #### [address] [place], [address] ECRCL 68.34 ml/min Normal 50-250 Comment on above: Performed By: #### L 100.0100, L500.2500 #### [address] [place], [address] GAP 9 Normal 5-15 Comment on above: Performed By: #### L 100.0100, L500.2500 #### [address] [place], [address] GFR/1.73 sq M.predicted among non-blacks MDRD (S/P/Bld) [Vol rate/Area] 76 mL/min/{1.73_m2} Normal >60 Comment on above: Result Comment: mL/m in/1.73m2 CKD-EPI Creatinine Equation (2020) Performed By: #### L 100.0100, L500.2500 #### [address] [place], [address] Glucose [Mass/Vol] 170 mg/dL High 70-99 [facility] Comment on above: Performed By: #### L 100.0100, L500.2500 #### [address] [place], [address] Potassium [Moles/Vol] 3.9 mmol/L Normal 3.3-5.1 [facility] Comment on above: Performed By: #### L 100.0100, L500.2500 #### [address] [place], [address] Sodium [Moles/Vol] 140 mmol/L Normal 133-145 [facility] Comment on above: Performed By: #### L 100.0100, L500.2500 #### [address] [place], [address] Urea nitrogen [Mass/Vol] 10 mg/dL Normal 4-19 Comment on above: Performed By: #### L 100.0100, L500.2500 #### [address] [place], [address] Bedside Glucoseon 10-16-2024 FINGERSTICK GLU 166 mg/dL High 74-106 Comment on above: Result Comment: GILDA GEMENT OF PATIENT CARE PER NURSING PROTOCOL Performed By: #### L 501.080 #### [address] [place], [address] FINGERSTICK GLU 263 mg/dL High 74-106 Comment on above: Result Comment: GILDA GEMENT OF PATIENT CARE PER NURSING PROTOCOL Performed By: #### L 501.080 #### [address] [place], [address] FINGERSTICK GLU 257 mg/dL High 74-106 Comment on above: Result Comment: GILDA GEMENT OF PATIENT CARE PER NURSING PROTOCOL Performed By: #### L 501.080 #### [address] [place], [address] CBC W/Diff, Automatedon 03-0 6-2024 Absolute Lymph 1.73 X10 3/uL Normal 0.83-4.51 Comment on above: Performed By: #### L 100.0100, L500.2500 #### [address] [place], [address] Absolute Neut 3.8 X10 3/uL Normal 2.0-7.7 Comment on above: Performed By: #### L 100.0100, L500.2500 #### [address] [place], [address] Basophils/100 WBC (Bld) 0.5 % Normal 0-1 Comment on above: Performed By: #### L 100.0100, L500.2500 #### [address] [place], [address] Eosinophils/100 WBC (Bld) 6.4 % High 0-5 Comment on above: Performed By: #### L 100.0100, L500.2500 #### [address] [place], [address] Erythrocyte distribution width (RBC) [Ratio] 14.9 % High 11.6-14.6 Comment on above: Performed By: #### L 100.0100, L500.2500 #### [address] [place], [address] Hematocrit (Bld) [Volume fraction] 35.4 % Low 37-47 Comment on above: Performed By: #### L 100.0100, L500.2500 #### [address] [place], [address] Hemoglobin (Bld) [Mass/Vol] 11.5 g/dL Low 12.0-15.0 Comment on above: Performed By: #### L 100.0100, L500.2500 #### [address] [place], [address] IG% 0.500 Normal 0.0-0.9 Comment on above: Result Comment: IG% - Immature Granulocytes (promyelocytes, myelocytes andmetamyelocytes) > 1% indicates that a LEFT SHIFT is Present. Performed By: #### L 100.0100, L500.2500 #### [address] [place], [address] Lymphocytes/100 WBC (Bld) 26.5 % Normal 19-41 Comment on above: Performed By: #### L 100.0100, L500.2500 #### [address] [place], [address] MCH (RBC) [Entitic mass] 27.4 pg Normal 27.0-32.0 Comment on above: Performed By: #### L 100.0100, L500.2500 #### [address] [place], [address] MCHC (RBC) [Mass/Vol] 32.5 g/dL Normal 32-36 [facility] Comment on above: Performed By: #### L 100.0100, L500.2500 #### [address] [place], [address] MCV (RBC) [Entitic vol] 84.3 fL Normal 81-99 Comment on above: Performed By: #### L 100.0100, L500.2500 #### [address] [place], [address] Monocytes/100 WBC (Bld) 8.0 % Normal 0-10 Comment on above: Performed By: #### L 100.0100, L500.2500 #### [address] [place], [address] Neutrophils/100 WBC (Bld) 58.1 % Normal 47-70 Comment on above: Performed By: #### L 100.0100, L500.2500 #### [address] [place], [address] Nucleated RBC (Bld) [#/Vol] 0 10*3/uL Normal 0-5 Comment on above: Performed By: #### L 100.0100, L500.2500 #### [address] [place], [address] Platelet mean volume (Bld) [Entitic vol] 10.1 fL Normal 6.2-12.0 Comment on above: Performed By: #### L 100.0100, L500.2500 #### [address] [place], [address] Platelets (Bld) [#/Vol] 249 10*3/uL Normal 150-450 Comment on above: Performed By: #### L 100.0100, L500.2500 #### [address] [place], [address] RBC (Bld) [#/Vol] 4.20 10*6/uL Normal 4.2-5.4 [facility] Comment on above: Performed By: #### L 100.0100, L500.2500 #### [address] [place], [address] RDW SD 45.5 fl High 35.1-43.9 Comment on above: Performed By: #### L 100.0100, L500.2500 #### [address] [place], [address] WBC (Bld) [#/Vol] 6.5 10*3/uL Normal 4.4-11.0 [facility] Comment on above: Performed By: #### L 100.0100, L500.2500 #### [address] [place], [address] Basic Metabolic Profile (BMP )on 10-15-2024 BUN/CRE 16.8 RATIO Normal 10-20 Comment on above: Performed By: #### L 100.0100, L500.2500 #### [address] [place], [address] Calcium [Mass/Vol] 8.7 mg/dL Normal 7.6-11.0 [facility] Comment on above: Performed By: #### L 100.0100, L500.2500 #### [address] [place], [address] Chloride [Moles/Vol] 108 mmol/L Normal 98-108 [facility] Comment on above: Performed By: #### L 100.0100, L500.2500 #### [address] [place], [address] CO2 [Moles/Vol] 22.0 mmol/L Normal 21.0-32.0 Comment on above: Performed By: #### L 100.0100, L500.2500 #### [address] [place], [address] Creatinine [Mass/Vol] 0.82 mg/dL Normal 0.70-1.20 [facility] Comment on above: Performed By: #### L 100.0100, L500.2500 #### [address] [place], [address] ECRCL 66.67 ml/min Normal 50-250 Comment on above: Performed By: #### L 100.0100, L500.2500 #### [address] [place], [address] GAP 10 Normal 5-15 Comment on above: Performed By: #### L 100.0100, L500.2500 #### [address] [place], [address] GFR/1.73 sq M.predicted among non-blacks MDRD (S/P/Bld) [Vol rate/Area] 73 mL/min/{1.73_m2} Normal >60 Comment on above: Result Comment: mL/m in/1.73m2 CKD-EPI Creatinine Equation (2020) Performed By: #### L 100.0100, L500.2500 #### [address] [place], [address] Glucose [Mass/Vol] 151 mg/dL High 70-99 [facility] Comment on above: Performed By: #### L 100.0100, L500.2500 #### [address] [place], [address] Potassium [Moles/Vol] 4.1 mmol/L Normal 3.3-5.1 [facility] Comment on above: Performed By: #### L 100.0100, L500.2500 #### [address] [place], [address] Sodium [Moles/Vol] 140 mmol/L Normal 133-145 [facility] Comment on above: Performed By: #### L 100.0100, L500.2500 #### [address] [place], [address] Urea nitrogen [Mass/Vol] 14 mg/dL Normal 4-19 Comment on above: Performed By: #### L 100.0100, L500.2500 #### [address] [place], [address] CBC W/Diff, Automatedon 03-0 5-2025 Absolute Lymph 2.26 X10 3/uL Normal 0.83-4.51 Comment on above: Performed By: #### L 100.0100, L500.2500 #### [address] [place], [address] Absolute Neut 3.8 X10 3/uL Normal 2.0-7.7 Comment on above: Performed By: #### L 100.0100, L500.2500 #### [address] [place], [address] Basophils/100 WBC (Bld) 0.4 % Normal 0-1 Comment on above: Performed By: #### L 100.0100, L500.2500 #### [address] [place], [address] Eosinophils/100 WBC (Bld) 6.5 % High 0-5 Comment on above: Performed By: #### L 100.0100, L500.2500 #### [address] [place], [address] Erythrocyte distribution width (RBC) [Ratio] 15.0 % High 11.6-14.6 Comment on above: Performed By: #### L 100.0100, L500.2500 #### [address] [place], [address] Hematocrit (Bld) [Volume fraction] 34.8 % Low 37-47 Comment on above: Performed By: #### L 100.0100, L500.2500 #### [address] [place], [address] Hemoglobin (Bld) [Mass/Vol] 11.5 g/dL Low 12.0-15.0 Comment on above: Performed By: #### L 100.0100, L500.2500 #### [address] [place], [address] IG% 0.300 Normal 0.0-0.9 Comment on above: Result Comment: IG% - Immature Granulocytes (promyelocytes, myelocytes andmetamyelocytes) > 1% indicates that a LEFT SHIFT is Present. Performed By: #### L 100.0100, L500.2500 #### [address] [place], [address] Lymphocytes/100 WBC (Bld) 31.8 % Normal 19-41 Comment on above: Performed By: #### L 100.0100, L500.2500 #### [address] [place], [address] MCH (RBC) [Entitic mass] 27.8 pg Normal 27.0-32.0 Comment on above: Performed By: #### L 100.0100, L500.2500 #### [address] [place], [address] MCHC (RBC) [Mass/Vol] 33.0 g/dL Normal 32-36 [facility] Comment on above: Performed By: #### L 100.0100, L500.2500 #### [address] [place], [address] MCV (RBC) [Entitic vol] 84.1 fL Normal 81-99 Comment on above: Performed By: #### L 100.0100, L500.2500 #### [address] [place], [address] Monocytes/100 WBC (Bld) 7.6 % Normal 0-10 Comment on above: Performed By: #### L 100.0100, L500.2500 #### [address] [place], [address] Neutrophils/100 WBC (Bld) 53.4 % Normal 47-70 Comment on above: Performed By: #### L 100.0100, L500.2500 #### [address] [place], [address] Nucleated RBC (Bld) [#/Vol] 0 10*3/uL Normal 0-5 Comment on above: Performed By: #### L 100.0100, L500.2500 #### [id number] [place], [address] Platelet mean volume (Bld) [Entitic vol] 10.0 fL Normal 6.2-12.0 Comment on above: Performed By: #### L 100.0100, L500.2500 #### [id number] [place], [address] Platelets (Bld) [#/Vol] 236 10*3/uL Normal 150-450 Comment on above: Performed By: #### L 100.0100, L500.2500 #### [id number] [place], [address] RBC (Bld) [#/Vol] 4.14 10*6/uL Low 4.2-5.4 [facility] Comment on above: Performed By: #### L 100.0100, L500.2500 #### [address] [place], [address] RDW SD 46.0 fl High 35.1-43.9 Comment on above: Performed By: #### L 100.0100, L500.2500 #### [address] [place], [address] WBC (Bld) [#/Vol] 7.1 10*3/uL Normal 4.4-11.0 [facility] Comment on above: Performed By: #### L 100.0100, L500.2500 #### [id number] [place], [address] Basic Metabolic Profile (BMP )on 10-14-2024 BUN/CRE 19.6 RATIO Normal 10-20 Comment on above: Performed By: #### L 500.2500, L100.0100 #### [id number] [place], [address] Calcium [Mass/Vol] 8.9 mg/dL Normal 7.6-11.0 [facility] Comment on above: Performed By: #### L 500.2500, L100.0100 #### [address] [place], [address] Chloride [Moles/Vol] 108 mmol/L Normal 98-108 [facility] Comment on above: Performed By: #### L 500.2500, L100.0100 #### [address] [place], [address] CO2 [Moles/Vol] 24.0 mmol/L Normal 21.0-32.0 Comment on above: Performed By: #### L 500.2500, L100.0100 #### [address] [place], [address] Creatinine [Mass/Vol] 0.84 mg/dL Normal 0.70-1.20 [facility] Comment on above: Performed By: #### L 500.2500, L100.0100 #### [address] [place], [address] ECRCL 65.09 ml/min Normal 50-250 Comment on above: Performed By: #### L 500.2500, L100.0100 #### [address] [place], [address] GAP 10 Normal 5-15 Comment on above: Performed By: #### L 500.2500, L100.0100 #### [address] [place], [address] GFR/1.73 sq M.predicted among non-blacks MDRD (S/P/Bld) [Vol rate/Area] 71 mL/min/{1.73_m2} Normal >60 Comment on above: Result Comment: mL/m in/1.73m2 CKD-EPI Creatinine Equation (2020) Performed By: #### L 500.2500, L100.0100 #### [address] [place], [address] Glucose [Mass/Vol] 119 mg/dL High 70-99 [facility] Comment on above: Performed By: #### L 500.2500, L100.0100 #### [address] [place], [address] Potassium [Moles/Vol] 4.1 mmol/L Normal 3.3-5.1 [facility] Comment on above: Performed By: #### L 500.2500, L100.0100 #### [address] [place], [address] Sodium [Moles/Vol] 142 mmol/L Normal 133-145 [facility] Comment on above: Performed By: #### L 500.2500, L100.0100 #### [address] [place], [address] Urea nitrogen [Mass/Vol] 17 mg/dL Normal 4-19 Comment on above: Performed By: #### L 500.2500, L100.0100 #### [address] [place], [address] CBC W/Diff, Automatedon 03-0 -2024 Absolute Lymph 2.38 X10 3/uL Normal 0.83-4.51 Comment on above: Performed By: #### L 500.2500, L100.0100 #### [address] [place], [address] Absolute Neut 3.5 X10 3/uL Normal 2.0-7.7 Comment on above: Performed By: #### L 500.2500, L100.0100 #### [address] [place], [address] Basophils/100 WBC (Bld) 0.6 % Normal 0-1 Comment on above: Performed By: #### L 500.2500, L100.0100 #### [address] [place], [address] Eosinophils/100 WBC (Bld) 4.4 % Normal 0-5 Comment on above: Performed By: #### L 500.2500, L100.0100 #### [address] [place], [address] Erythrocyte distribution width (RBC) [Ratio] 15.1 % High 11.6-14.6 Comment on above: Performed By: #### L 500.2500, L100.0100 #### [address] [place], [address] Hematocrit (Bld) [Volume fraction] 32.6 % Low 37-47 Comment on above: Performed By: #### L 500.2500, L100.0100 #### [address] [place], [address] Hemoglobin (Bld) [Mass/Vol] 10.8 g/dL Low 12.0-15.0 Comment on above: Performed By: #### L 500.2500, L100.0100 #### [address] [place], [address] IG% 0.300 Normal 0.0-0.9 Comment on above: Result Comment: IG% - Immature Granulocytes (promyelocytes, myelocytes andmetamyelocytes) > 1% indicates that a LEFT SHIFT is Present. Performed By: #### L 500.2500, L100.0100 #### [address] [place], [address] Lymphocytes/100 WBC (Bld) 35.2 % Normal 19-41 Comment on above: Performed By: #### L 500.2500, L100.0100 #### [address] [place], [address] MCH (RBC) [Entitic mass] 28.0 pg Normal 27.0-32.0 Comment on above: Performed By: #### L 500.2500, L100.0100 #### [address] [place], [address] MCHC (RBC) [Mass/Vol] 33.1 g/dL Normal 32-36 [facility] Comment on above: Performed By: #### L 500.2500, L100.0100 #### [address] [place], [address] MCV (RBC) [Entitic vol] 84.5 fL Normal 81-99 Comment on above: Performed By: #### L 500.2500, L100.0100 #### [address] [place], [address] Monocytes/100 WBC (Bld) 7.5 % Normal 0-10 Comment on above: Performed By: #### L 500.2500, L100.0100 #### [address] [place], [address] Neutrophils/100 WBC (Bld) 52.0 % Normal 47-70 Comment on above: Performed By: #### L 500.2500, L100.0100 #### [address] [place], [address] Nucleated RBC (Bld) [#/Vol] 0 10*3/uL Normal 0-5 Comment on above: Performed By: #### L 500.2500, L100.0100 #### [address] [place], [address] Platelet mean volume (Bld) [Entitic vol] 10.2 fL Normal 6.2-12.0 Comment on above: Performed By: #### L 500.2500, L100.0100 #### [address] [place], [address] Platelets (Bld) [#/Vol] 238 10*3/uL Normal 150-450 Comment on above: Performed By: #### L 500.2500, L100.0100 #### [address] [place], [address] RBC (Bld) [#/Vol] 3.86 10*6/uL Low 4.2-5.4 [facility] Comment on above: Performed By: #### L 500.2500, L100.0100 #### [address] [place], [address] RDW SD 46.1 fl High 35.1-43.9 Comment on above: Performed By: #### L 500.2500, L100.0100 #### [address] [place], [address] WBC (Bld) [#/Vol] 6.8 10*3/uL Normal 4.4-11.0 [facility] Comment on above: Performed By: #### L 500.2500, L100.0100 #### [address] [place], [address] 12 Lead EKGon 10-13-2024 12 Lead EKG Normal Basic Metabolic Profile (BMP )on 10-13-2024 Calcium [Mass/Vol] 9.7 mg/dL Normal 7.6-11.0 [facility] Comment on above: Performed By: #### L 300.3900, L100.0100, L500.2500, L300.4310 #### [address] [place], [address] Chloride [Moles/Vol] 97 mmol/L Low 98-108 [facility] Comment on above: Performed By: #### L 300.3900, L100.0100, L500.2500, L300.4310 #### [address] [place], [address] CO2 [Moles/Vol] 19.2 mmol/L Low 21.0-32.0 Comment on above: Performed By: #### L 300.3900, L100.0100, L500.2500, L300.4310 #### [address] [place], [address] GAP 16 High 5-15 Comment on above: Performed By: #### L 300.3900, L100.0100, L500.2500, L300.4310 #### [address] [place], [address] Potassium [Moles/Vol] 5.0 mmol/L Normal 3.3-5.1 [facility] Comment on above: Performed By: #### L 300.3900, L100.0100, L500.2500, L300.4310 #### [address] [place], [address] Sodium [Moles/Vol] 132 mmol/L Low 133-145 [facility] Comment on above: Performed By: #### L 300.3900, L100.0100, L500.2500, L300.4310 #### [address] [place], [address] CBC W/Diff, Automatedon 03-0 -2024 Absolute Lymph 1.39 X10 3/uL Normal 0.83-4.51 Comment on above: Performed By: #### L 300.3900, L100.0100, L500.2500, L300.4310 #### [address] [place], [address] Absolute Neut 8.2 X10 3/uL High 2.0-7.7 Comment on above: Performed By: #### L 300.3900, L100.0100, L500.2500, L300.4310 #### [address] [place], [address] Basophils/100 WBC (Bld) 0.2 % Normal 0-1 Comment on above: Performed By: #### L 300.3900, L100.0100, L500.2500, L300.4310 #### [address] [place], [address] Eosinophils/100 WBC (Bld) 1.0 % Normal 0-5 Comment on above: Performed By: #### L 300.3900, L100.0100, L500.2500, L300.4310 #### [address] [place], [address] Erythrocyte distribution width (RBC) [Ratio] 14.7 % High 11.6-14.6 Comment on above: Performed By: #### L 300.3900, L100.0100, L500.2500, L300.4310 #### [address] [place], [address] Hematocrit (Bld) [Volume fraction] 37.4 % Normal 37-47 Comment on above: Performed By: #### L 300.3900, L100.0100, L500.2500, L300.4310 #### [address] [place], [address] Hemoglobin (Bld) [Mass/Vol] 11.9 g/dL Low 12.0-15.0 Comment on above: Performed By: #### L 300.3900, L100.0100, L500.2500, L300.4310 #### [address] [place], [address] IG% 0.500 Normal 0.0-0.9 Comment on above: Result Comment: IG% - Immature Granulocytes (promyelocytes, myelocytes andmetamyelocytes) > 1% indicates that a LEFT SHIFT is Present. Performed By: #### L 300.3900, L100.0100, L500.2500, L300.4310 #### [address] [place], [address] Lymphocytes/100 WBC (Bld) 13.7 % Low 19-41 Comment on above: Performed By: #### L 300.3900, L100.0100, L500.2500, L300.4310 #### [address] [place], [address] MCH (RBC) [Entitic mass] 27.1 pg Normal 27.0-32.0 Comment on above: Performed By: #### L 300.3900, L100.0100, L500.2500, L300.4310 #### [address] [place], [address] MCHC (RBC) [Mass/Vol] 31.8 g/dL Low 32-36 [facility] Comment on above: Performed By: #### L 300.3900, L100.0100, L500.2500, L300.4310 #### [address] [place], [address] MCV (RBC) [Entitic vol] 85.2 fL Normal 81-99 Comment on above: Performed By: #### L 300.3900, L100.0100, L500.2500, L300.4310 #### [address] [place], [address] Monocytes/100 WBC (Bld) 4.5 % Normal 0-10 Comment on above: Performed By: #### L 300.3900, L100.0100, L500.2500, L300.4310 #### [address] [place], [address] Neutrophils/100 WBC (Bld) 80.1 % High 47-70 Comment on above: Performed By: #### L 300.3900, L100.0100, L500.2500, L300.4310 #### [address] [place], [address] Nucleated RBC (Bld) [#/Vol] 0 10*3/uL Normal 0-5 Comment on above: Performed By: #### L 300.3900, L100.0100, L500.2500, L300.4310 #### [address] [place], [address] Platelet mean volume (Bld) [Entitic vol] 10.2 fL Normal 6.2-12.0 Comment on above: Performed By: #### L 300.3900, L100.0100, L500.2500, L300.4310 #### [address] [place], [address] Platelets (Bld) [#/Vol] 285 10*3/uL Normal 150-450 Comment on above: Performed By: #### L 300.3900, L100.0100, L500.2500, L300.4310 #### [address] [place], [address] RBC (Bld) [#/Vol] 4.39 10*6/uL Normal 4.2-5.4 [facility] Comment on above: Performed By: #### L 300.3900, L100.0100, L500.2500, L300.4310 #### [address] [place], [address] RDW SD 45.9 fl High 35.1-43.9 Comment on above: Performed By: #### L 300.3900, L100.0100, L500.2500, L300.4310 #### [address] [place], [address] WBC (Bld) [#/Vol] 10.2 10*3/uL Normal 4.4-11.0 [facility] Comment on above: Performed By: #### L 300.3900, L100.0100, L500.2500, L300.4310 #### [address] [place], [address] Emergency Department Summary on 10-13-2024 Emergency Department Summary Normal Partial Thromboplast Timeon 10-13-2024 aPTT Coag (Bld) [Time] 23.3 s Low 24.1-36.2 [facility] Comment on above: Performed By: #### L 300.3900, L100.0100, L500.2500, L300.4310 #### [address] [place], [address] Prothrombin Time w/INRon INR Coag (PPP) [Relative time] 1.0 {INR} Normal Comment on above: Performed By: #### L 300.3900, L100.0100, L500.2500, L300.4310 #### [address] [place], [address] PT Coag (PPP) [Time] 13.4 s Normal 11.7-14.9 [facility] Comment on above: Performed By: #### L 300.3900, L100.0100, L500.2500, L300.4310 #### [address] [place], [address] Urine Cultureon 10-10-2024 [facility] Normal Comment on above: Performed By: #### M 100.2200 #### [address] [place], [address] L/S Spine Min 4 Viewson 09-14 L/S Spine Min 4 Views Normal [facility] MR/BMS.BPon 09-05-2024 MR/BMS.BP Normal SCRN MAMM (CAD)W/MANPREET BILATo n 09-04-2024 SCRN MAMM (CAD)W/MANPREET BILAT Normal Urine Cultureon 09-04-2024 [facility] Normal Comment on above: Performed By: #### M 100.2200 #### [address] [place], [address] MR/BMS.BPon 06-11-2024 MR/BMS.BP Normal Re-Evaluation - PT (1)on Re-Evaluation - PT (1) Normal [facility] Neurology Visit Reporton Neurology Visit Report Normal [facility] CBC W/Diff, Automatedon Absolute Lymph 1.97 X10 3/uL Normal 0.83-4.51 Comment on above: Performed By: #### L 100.0100, L500.4050, L506.1000, L501.9520 #### [address] [place], [address] Absolute Neut 4.7 X10 3/uL Normal 2.0-7.7 Comment on above: Performed By: #### L 100.0100, L500.4050, L506.1000, L501.9520 #### [address] [place], [address] Basophils/100 WBC (Bld) 0.4 % Normal 0-1 Comment on above: Performed By: #### L 100.0100, L500.4050, L506.1000, L501.9520 #### [address] [place], [address] Eosinophils/100 WBC (Bld) 4.4 % Normal 0-5 Comment on above: Performed By: #### L 100.0100, L500.4050, L506.1000, L501.9520 #### [address] [place], [address] Erythrocyte distribution width (RBC) [Ratio] 14.7 % High 11.6-14.6 Comment on above: Performed By: #### L 100.0100, L500.4050, L506.1000, L501.9520 #### [address] [place], [address] Hematocrit (Bld) [Volume fraction] 42.0 % Normal 37-47 Comment on above: Performed By: #### L 100.0100, L500.4050, L506.1000, L501.9520 #### [address] [place], [address] Hemoglobin (Bld) [Mass/Vol] 13.4 g/dL Normal 12.0-15.0 Comment on above: Performed By: #### L 100.0100, L500.4050, L506.1000, L501.9520 #### [address] [place], [address] IG% 0.400 Normal 0.0-0.9 Comment on above: Result Comment: IG% - Immature Granulocytes (promyelocytes, myelocytes andmetamyelocytes) > 1% indicates that a LEFT SHIFT is Present. Performed By: #### L 100.0100, L500.4050, L506.1000, L501.9520 #### [address] [place], [address] Lymphocytes/100 WBC (Bld) 26.3 % Normal 19-41 Comment on above: Performed By: #### L 100.0100, L500.4050, L506.1000, L501.9520 #### [address] [place], [address] MCH (RBC) [Entitic mass] 27.0 pg Normal 27.0-32.0 Comment on above: Performed By: #### L 100.0100, L500.4050, L506.1000, L501.9520 #### [address] [place], [address] MCHC (RBC) [Mass/Vol] 31.9 g/dL Low 32-36 [facility] Comment on above: Performed By: #### L 100.0100, L500.4050, L506.1000, L501.9520 #### [address] [place], [address] MCV (RBC) [Entitic vol] 84.7 fL Normal 81-99 Comment on above: Performed By: #### L 100.0100, L500.4050, L506.1000, L501.9520 #### [address] [place], [address] Monocytes/100 WBC (Bld) 6.1 % Normal 0-10 Comment on above: Performed By: #### L 100.0100, L500.4050, L506.1000, L501.9520 #### [address] [place], [address] Neutrophils/100 WBC (Bld) 62.4 % Normal 47-70 Comment on above: Performed By: #### L 100.0100, L500.4050, L506.1000, L501.9520 #### [address] [place], [address] Nucleated RBC (Bld) [#/Vol] 0 10*3/uL Normal 0-5 Comment on above: Performed By: #### L 100.0100, L500.4050, L506.1000, L501.9520 #### [address] [place], [address] Platelet mean volume (Bld) [Entitic vol] 10.0 fL Normal 6.2-12.0 Comment on above: Performed By: #### L 100.0100, L500.4050, L506.1000, L501.9520 #### [address] [place], [address] Platelets (Bld) [#/Vol] 284 10*3/uL Normal 150-450 Comment on above: Performed By: #### L 100.0100, L500.4050, L506.1000, L501.9520 #### [address] [place], [address] RBC (Bld) [#/Vol] 4.96 10*6/uL Normal 4.2-5.4 [facility] Comment on above: Performed By: #### L 100.0100, L500.4050, L506.1000, L501.9520 #### [address] [place], [address] RDW SD 45.0 fl High 35.1-43.9 Comment on above: Performed By: #### L 100.0100, L500.4050, L506.1000, L501.9520 #### [address] [place], [address] WBC (Bld) [#/Vol] 7.5 10*3/uL Normal 4.4-11.0 [facility] Comment on above: Performed By: #### L 100.0100, L500.4050, L506.1000, L501.9520 #### [address] [place], [address] Comprehensive Metabolic Prof ilon 05-14-2024 Albumin [Mass/Vol] 3.4 g/dL Normal 3.2-5.0 [facility] Comment on above: Performed By: #### L 100.0100, L500.4050, L506.1000, L501.9520 #### [address] [place], [address] Albumin/Globulin [Mass ratio] 0.9 {ratio} Normal 0.9-2.4 Comment on above: Performed By: #### L 100.0100, L500.4050, L506.1000, L501.9520 #### [address] [place], [address] ALK P 66 U/L Normal 45-117 Comment on above: Performed By: #### L 100.0100, L500.4050, L506.1000, L501.9520 #### [address] [place], [address] ALT [Catalytic activity/Vol] 26 U/L Normal 13-56 Comment on above: Performed By: #### L 100.0100, L500.4050, L506.1000, L501.9520 #### [address] [place], [address] AST [Catalytic activity/Vol] 19 U/L Normal 15-37 Comment on above: Performed By: #### L 100.0100, L500.4050, L506.1000, L501.9520 #### [address] [place], [address] Bilirubin [Mass/Vol] 0.50 mg/dL Normal 0.20-1.00 [facility] Comment on above: Result Comment: For patients on eltrombopag therapy, use of Dimension [place] TBIL is not recommended. Performed By: #### L 100.0100, L500.4050, L506.1000, L501.9520 #### [address] [place], [address] BUN/CRE 13.3 RATIO Normal 10-20 Comment on above: Performed By: #### L 100.0100, L500.4050, L506.1000, L501.9520 #### [address] [place], [address] CA,Total 9.6 mg/dL Normal 8.5-10.1 Comment on above: Performed By: #### L 100.0100, L500.4050, L506.1000, L501.9520 #### [address] [place], [address] Chloride [Moles/Vol] 106 mmol/L Normal 98-107 [facility] Comment on above: Performed By: #### L 100.0100, L500.4050, L506.1000, L501.9520 #### [address] [place], [address] CO2 [Moles/Vol] 25.0 mmol/L Normal 21.0-32.0 Comment on above: Performed By: #### L 100.0100, L500.4050, L506.1000, L501.9520 #### [address] [place], [address] Creatinine [Mass/Vol] 1.20 mg/dL High 0.55-1.02 [facility] Comment on above: Result Comment: The validity of the calculated GFR GFRAA in patients over70 years has not been determined. Clinical correlation isessential. Performed By: #### L 100.0100, L500.4050, L506.1000, L501.9520 #### [address] [place], [address] EST GFR - AA 56 mL/min Low >60 Comment on above: Result Comment: Afri can Cymro GFR Calc Performed By: #### L 100.0100, L500.4050, L506.1000, L501.9520 #### [address] [place], [address] GAP 8 Normal 5-15 Comment on above: Performed By: #### L 100.0100, L500.4050, L506.1000, L501.9520 #### [address] [place], [address] GFR/1.73 sq M.predicted among non-blacks MDRD (S/P/Bld) [Vol rate/Area] 46 mL/min/{1.73_m2} Low >60 Comment on above: Result Comment: Non- GFR Calc Performed By: #### L 100.0100, L500.4050, L506.1000, L501.9520 #### [address] [place], [address] Globulin (S) [Mass/Vol] 3.7 g/dL Normal 2.2-4.2 Comment on above: Performed By: #### L 100.0100, L500.4050, L506.1000, L501.9520 #### [address] [place], [address] Glucose [Mass/Vol] 182 mg/dL High 74-106 [facility] Comment on above: Result Comment: Fast ing Glucose result greater than or equal to 126 mg/dLsuggests DIABETES MELLITUS per A.D.A. criteria. Performed By: #### L 100.0100, L500.4050, L506.1000, L501.9520 #### [address] [place], [address] Potassium [Moles/Vol] 4.7 mmol/L Normal 3.5-5.1 [facility] Comment on above: Performed By: #### L 100.0100, L500.4050, L506.1000, L501.9520 #### [address] [place], [address] Sodium [Moles/Vol] 138 mmol/L Normal 136-145 [facility] Comment on above: Performed By: #### L 100.0100, L500.4050, L506.1000, L501.9520 #### [address] [place], [address] T PROT 7.1 g/dL Normal 6.4-8.2 Comment on above: Performed By: #### L 100.0100, L500.4050, L506.1000, L501.9520 #### [address] [place], [address] Urea nitrogen [Mass/Vol] 16 mg/dL Normal 7-18 Comment on above: Performed By: #### L 100.0100, L500.4050, L506.1000, L501.9520 #### [address] [place], [address] Thyroid Stim Hormone (TSH)on 05-14-2024 TSH 0.468 uIU/mL Normal 0.358-3.740 Comment on above: Performed By: #### L 100.0100, L500.4050, L506.1000, L501.9520 #### [address] [place], [address] Vitamin D,25 Hydroxyon 05-14 Vitamin D 25-OH 56.7 ng/mL Normal Comment on above: Result Comment: Tawana min D 25(OH) Status Range Deficiency <20 ng/mL (50nmol/L) Insufficiency 20 - 30 ng/mL (50 - 75 nmol/L) Sufficiency 30 - 100 ng/mL (75 - 250 nmol/L) Toxicity >100 ng/mL (>250 nmol/L) Performed By: #### L 100.0100, L500.4050, L506.1000, L501.9520 #### [address] [place], [address] Re-Evaluation - PT (1)on Re-Evaluation - PT (1) Normal [facility] MR/BMS.BPon 03-26-2024 MR/BMS.BP Normal Inital Evaluation (1) - PTon 03-12-2024 Inital Evaluation (1) - PT Normal CNOVon 11-16-2023 CNOV Office Visit (PODIWS ) ARACELY HERNANDEZ ([id number]) 1945 F Date Time Provider Department 11/16/23 [...] history since last visit. PAIN EVALUATION 11/15/2023 0647 Pain Location: Toe Duration Amount of Time: [...] GI Upset (more content not included)... Normal [facility] XR FOOT 3V AP/LAT/OBL LTon 0 11-16-2023 [...] plantar calcaneal spur. IMPRESSION: No acute abnormality Composition Floor Setter: GÓMEZ Transcribe Date/Time: Nov 21 2023 10:38A Dictated by : PATRICA WEST MD This examination was interpreted and the report reviewed and electronically signed by: PATRICA WEST MD on Nov 21 2023 10:40AM EST [id number] Normal [facility] Absolute lymphocyte countOrd ered By: Sumit Whipple on 11-07-2023 Lymphocytes Auto (Unsp spec) [#/Vol] 2.51 10*3/uL 0.83-4.51 Automated lymphocyte count a s percentage of total leukocytesOrdered By: Sumit Whipple on 11-07-2023 Lymphocytes/100 WBC Auto (Unsp spec) 32.1 % 19-41 Bacteria identified Cx Nom ( Wound)Ordered By: Sumit Whipple on 11-07-2023 Wound Culture Escherichia coli [facility] Wound Culture Enterococcus faecalis Basophil percentageOrdered B y: Sumit Whipple on 11-07-2023 Basophils/100 WBC (Bld) 0.3 % 0-1 Bilirubin [Mass/Vol] 0.40 mg/dL 0.20-1.00 [facility] Comment on above: For patients on eltr ombopag therapy, use of Dimension [place] TBIL is not recommended. Chloride [Moles/Vol] 102 mmol/L 98-107 [facility] Eosinophils/100 WBC (Bld) 3.4 % 0-5 Glucose [Mass/Vol] 187 mg/dL 74-106 [facility] Comment on above: Fasting Glucose resu lt greater than or equal to 126 mg/dL suggests DIABETES MELLITUS per A.D.A. criteria. Hemoglobin (Bld) [Mass/Vol] 13.0 g/dL 12.0-15.0 Monocytes/100 WBC (Bld) 7.8 % 0-10 Neutrophils (Bld) [#/Vol] 4.4 10*3/uL 2.0-7.7 Neutrophils/100 WBC (Bld) 56.1 % 47-70 Potassium [Moles/Vol] 4.0 mmol/L 3.5-5.1 [facility] Protein [Mass/Vol] 6.6 g/dL 6.4-8.2 [facility] Sodium [Moles/Vol] 135 mmol/L 136-145 [facility] WBC (Bld) [#/Vol] 7.8 10*3/uL 4.4-11.0 [facility] Determination of erythrocyte mean corpuscular volume (MCV)Ordered By: [facility] Sarabjit on 11-07-2023 MCV (RBC) [Entitic vol] 83.2 fL 81-99 Erythrocyte distribution wid th ratioOrdered By: [facility] on 11-07-2023 Erythrocyte distribution width (RBC) [Ratio] 14.3 % 11.6-14.6 Erythrocyte distribution wid th standard deviationOrdered By: [facility] on 11-07-2023 Erythrocyte distribution width (RBC) [Entitic vol] 43.2 fL 35.1-43.9 Gram stain for investigation of transfusion reactionOrdered By: [facility]23 Microscopic observation Gram stain Nom (Unsp spec) Hematocrit Auto (Bld) [Volum e fraction]Ordered By: [facility] 11-07-2023 Hematocrit (Bld) [Volume fraction] 40.5 % 37-47 Immature granulocytes/100 WB C Auto (Bld)Ordered By: [facility] 11-07-2023 Immature granulocytes/100 WBC (Bld) 0.300 % 0.0-0.9 Comment on above: IG% - Immature Granu locytes (promyelocytes, myelocytes and metamyelocytes) > 1% indicates that a LEFT SHIFT is Present. Laboratory - Chemistry and C hemistry - challengeOrdered By: [facility] on 11-07-2023 Albumin/Globulin [Mass ratio] 0.7 {ratio} 0.9-2.4 ALP [Catalytic activity/Vol] 76 U/L 45-117 ALT [Catalytic activity/Vol] 21 U/L 13-56 CO2 [Moles/Vol] 28.0 mmol/L 21.0-32.0 Globulin (S) [Mass/Vol] 3.8 g/dL 2.2-4.2 Urea nitrogen/Creatinine [Mass ratio] 14.6 mg/mg 10-20 Laboratory - Hematology and Cell countsOrdered By: Sumit Whipple on 11-07-2023 MCH (RBC) [Entitic mass] 26.7 pg 27.0-32.0 MCHC (RBC) [Mass/Vol] 32.1 g/dL 32-36 [facility] Nucleated RBC/100 WBC (Bld) [Ratio] 0 % 0-5 Platelet mean volume (Bld) [Entitic vol] 9.9 fL 6.2-12.0 Platelets (Bld) [#/Vol] 303 10*3/uL 150-450 No Panel InformationOrdered By: Sumit Whipple on 11-07-2023 Methicillin-Resist S.aureus DNA PCR Negative Negative Estimated GFR (MDRD) Amer 79 mL/min >60 Comment on above: GFR Calc Estimated GFR (MDRD) Non-Af Amer 65 mL/min >60 Comment on above: Non- GFR Calc Vitamin D 25-Hydroxy 57.4 ng/mL [facility] Comment on above: Vitamin D 25(OH) Sta tus Range Deficiency <20 ng/mL (50nmol/L) Insufficiency 20 - 30 ng/mL (50 - 75 nmol/L) Sufficiency 30 - 100 ng/mL (75 - 250 nmol/L) Toxicity >100 ng/mL (>250 nmol/L) RBC Auto (Bld) [#/Vol]Ordere d By: Sumit Whipple on 11-07-2023 RBC (Bld) [#/Vol] 4.87 10*6/uL 4.2-5.4 [facility] [place] or plasma calcium dot urement (mass/volume)Ordered By: Sumit Whipple on 11-07-2023 Calcium [Mass/Vol] 9.1 mg/dL 8.5-10.1 [facility] [place] Serum or plasma creatinine m easurement (mass/volume)Ordered By: Sumit Whipple on 11-07-2023 Creatinine [Mass/Vol] 0.89 mg/dL 0.55-1.02 [facility] Comment on above: The validity of the calculated GFR & GFRAA in patients over 70 years has not been determined. Clinical correlation is essential. Serum or plasma thyroid stim ulating hormone (TSH) measurement (units/volume)Ordered By: Sumit Rubyok on 11-07-2023 TSH Qn 7.89 uIU/mL 0.358-3.74 Serum or plasma urea nitroge n measurement (mass/volume)Ordered By: Sumit Whipple on 11-07-2023 Urea nitrogen [Mass/Vol] 13 mg/dL 7-18 Staphylococcus aureus DNA de tection by probe and target amplification methodOrdered By: Sumit Whipple on 11-07-2023 S. aureus DNA ZUNILDA+probe Ql (Unsp spec) Negative Negative Thin prep Papanicolaou smear with manual screeningOrdered By: [facility] Sarabjit on 11-07-2023 Thin prep Papanicolaou smear with manual screening 2.8 g/dL 3.2-5.0 Thin prep Papanicolaou smear with manual screening 12 U/L 15-37 Thin prep Papanicolaou smear with manual screening 5 5-15 Absolute lymphocyte countOrd ered By: Sumit Rubyok on 07-17-2023 Lymphocytes Auto (Unsp spec) [#/Vol] 2.12 10*3/uL 0.83-4.51 Basophil percentageOrdered B y: Sumit Whipple on 07-17-2023 Basophils/100 WBC (Bld) 0.6 % 0-1 Bilirubin [Mass/Vol] 0.50 mg/dL 0.20-1.00 [facility] Comment on above: For patients on eltr ombopag therapy, use of Dimension [place] TBIL is not recommended. Chloride [Moles/Vol] 101 mmol/L 98-107 [facility] Eosinophils/100 WBC (Bld) 3.0 % 0-5 Glucose [Mass/Vol] 136 mg/dL 74-106 [facility] Comment on above: Fasting Glucose resu lt greater than or equal to 126 mg/dL suggests DIABETES MELLITUS per A.D.A. criteria. Neutrophils (Bld) [#/Vol] 3.6 10*3/uL 2.0-7.7 Neutrophils/100 WBC (Bld) 55.4 % 47-70 Potassium [Moles/Vol] 4.5 mmol/L 3.5-5.1 [facility] Protein [Mass/Vol] 6.5 g/dL 6.4-8.2 [facility] Sodium [Moles/Vol] 134 mmol/L 136-145 [facility] WBC (Bld) [#/Vol] 6.4 10*3/uL 4.4-11.0 [facility] Blood erythrocytes count (nu mber/volume)Ordered By: Sumit Whipple on 07-17-2023 RBC (Bld) [#/Vol] 4.51 10*6/uL 4.2-5.4 [facility] Blood hemoglobin measurement (mass/volume)Ordered By: Sumit Whipple on 07-17-2023 Hemoglobin (Bld) [Mass/Vol] 12.2 g/dL 12.0-15.0 Blood lymphocytes/100 leukoc ytesOrdered By: Sumit Whipple on 07-17-2023 Lymphocytes/100 WBC (Bld) 33.1 % 19-41 Blood monocytes/100 leukocyt esOrdered By: Sumit Whipple on 07-17-2023 Monocytes/100 WBC (Bld) 7.6 % 0-10 Blood platelet mean volumeOr dered By: Sumit Whipple on 07-17-2023 Platelet mean volume (Bld) [Entitic vol] 9.5 fL 6.2-12.0 Culture, urineOrdered By: Desmond Whipple on 07-17-2023 Bacteria identified Cx Nom (U) Culture exhibits no growth. Bacteria identified Cx Nom (U) Culture exhibits no growth. Determination of erythrocyte mean corpuscular volume (MCV)Ordered By: Sumit Whipple on 07-17-2023 MCV (RBC) [Entitic vol] 85.1 fL 81-99 Hematocrit Auto (Bld) [Volum e fraction]Ordered By: Sumit Whipple on 07-17-2023 Hematocrit (Bld) [Volume fraction] 38.4 % 37-47 Laboratory - Chemistry and C hemistry - challengeOrdered By: Sumit Whipple on 07-17-2023 ALP [Catalytic activity/Vol] 55 U/L 45-117 ALT [Catalytic activity/Vol] 26 U/L 13-56 CO2 [Moles/Vol] 28.0 mmol/L 21.0-32.0 Globulin (S) [Mass/Vol] 3.2 g/dL 2.2-4.2 Urea nitrogen/Creatinine [Mass ratio] 13.2 mg/mg 10-20 Laboratory - Hematology and Cell countsOrdered By: Sumit Whipple on 07-17-2023 Erythrocyte distribution width (RBC) [Entitic vol] 44.7 fL 35.1-43.9 Erythrocyte distribution width (RBC) [Ratio] 14.4 % 11.6-14.6 Immature granulocytes/100 WBC (Bld) 0.300 % 0.0-0.9 Comment on above: IG% - Immature Granu locytes (promyelocytes, myelocytes and metamyelocytes) > 1% indicates that a LEFT SHIFT is Present. MCH (RBC) [Entitic mass] 27.1 pg 27.0-32.0 Nucleated RBC/100 WBC (Bld) [Ratio] 0 % 0-5 MCHC Auto (RBC) [Mass/Vol]Or dered By: Sumit Whipple on 07-17-2023 MCHC (RBC) [Mass/Vol] 31.8 g/dL 32-36 [facility] No Panel InformationOrdered By: Sumit Whipple on 07-17-2023 Estimated GFR (MDRD) Amer 70 mL/min >60 Comment on above: GFR Calc Estimated GFR (MDRD) Non-Af Amer 58 mL/min >60 Comment on above: Non- GFR Calc Platelets bldOrdered By: Sumit Whipple on 07-17-2023 Platelets (Bld) [#/Vol] 307 10*3/uL 150-450 Serum or plasma albumin dot urement (mass/volume)Ordered By: Sumit Whipple on 07-17-2023 Albumin [Mass/Vol] 3.3 g/dL 3.2-5.0 [facility] Serum or plasma albumin/glob ulin mass ratioOrdered By: Sumit Whipple on 07-17-2023 Albumin/Globulin [Mass ratio] 1.0 {ratio} 0.9-2.4 Serum or plasma calcium dot urement (mass/volume)Ordered By: Sumit Whipple on 07-17-2023 Calcium [Mass/Vol] 8.9 mg/dL 8.5-10.1 [facility] Serum or plasma creatinine m easurement (mass/volume)Ordered By: Sumit Whipple on 07-17-2023 Creatinine [Mass/Vol] 0.99 mg/dL 0.55-1.02 [facility] Comment on above: The validity of the calculated GFR & GFRAA in patients over 70 years has not been determined. Clinical correlation is essential. Serum or plasma urea nitroge n measurement (mass/volume)Ordered By: Sumit Whipple on 07-17-2023 Urea nitrogen [Mass/Vol] 13 mg/dL 7-18 Thin prep Papanicolaou smear with manual screeningOrdered By: Sumit Whipple on 07-17-2023 Thin prep Papanicolaou smear with manual screening 16 U/L 15-37 Thin prep Papanicolaou smear with manual screening 5 5-15 Absolute lymphocyte countOrd ered By: Sumit Whipple on 05-09-2023 Lymphocytes Auto (Unsp spec) [#/Vol] 1.86 10*3/uL 0.83-4.51 Basophil percentageOrdered B y: Sumit Whipple on 05-09-2023 Basophils/100 WBC (Bld) 0.5 % 0-1 Bilirubin [Mass/Vol] 0.40 mg/dL 0.20-1.00 [facility] Comment on above: For patients on eltr ombopag therapy, use of Dimension [place] TBIL is not recommended. Chloride [Moles/Vol] 105 mmol/L 98-107 [facility] Eosinophils/100 WBC (Bld) 2.9 % 0-5 Glucose [Mass/Vol] 113 mg/dL 74-106 [facility] Comment on above: Fasting Glucose resu lt from 100 to 125 mg/dL suggests IMPAIRED HOMEOSTASIS per A.D.A. criteria. Neutrophils (Bld) [#/Vol] 3.4 10*3/uL 2.0-7.7 Neutrophils/100 WBC (Bld) 57.3 % 47-70 Potassium [Moles/Vol] 4.5 mmol/L 3.5-5.1 [facility] Protein [Mass/Vol] 6.6 g/dL 6.4-8.2 [facility] Sodium [Moles/Vol] 137 mmol/L 136-145 [facility] WBC (Bld) [#/Vol] 5.9 10*3/uL 4.4-11.0 [facility] Blood erythrocytes count (nu mber/volume)Ordered By: Sumit Whipple on 05-09-2023 RBC (Bld) [#/Vol] 4.27 10*6/uL 4.2-5.4 [facility] Blood hemoglobin measurement (mass/volume)Ordered By: Sumit Whipple on 05-09-2023 Hemoglobin (Bld) [Mass/Vol] 12.0 g/dL 12.0-15.0 Blood lymphocytes/100 leukoc ytesOrdered By: Sumit Whipple on 05-09-2023 Lymphocytes/100 WBC (Bld) 31.5 % 19-41 Blood monocytes/100 leukocyt esOrdered By: Sumit Whipple on 05-09-2023 Monocytes/100 WBC (Bld) 7.6 % 0-10 Blood platelet mean volumeOr dered By: Sumit Whipple on 05-09-2023 Platelet mean volume (Bld) [Entitic vol] 9.5 fL 6.2-12.0 Determination of erythrocyte mean corpuscular volume (MCV)Ordered By: Sumit Whipple on 05-09-2023 MCV (RBC) [Entitic vol] 84.5 fL 81-99 Hematocrit Auto (Bld) [Volum e fraction]Ordered By: Sumit Whipple on 05-09-2023 Hematocrit (Bld) [Volume fraction] 36.1 % 37-47 Laboratory - Chemistry and C hemistry - challengeOrdered By: Sumit Whipple on 05-09-2023 ALP [Catalytic activity/Vol] 51 U/L 45-117 ALT [Catalytic activity/Vol] 32 U/L 13-56 CO2 [Moles/Vol] 27.0 mmol/L 21.0-32.0 Globulin (S) [Mass/Vol] 3.2 g/dL 2.2-4.2 Urea nitrogen/Creatinine [Mass ratio] 25.5 mg/mg 10-20 Laboratory - Hematology and Cell countsOrdered By: Sumit Whipple on 05-09-2023 Erythrocyte distribution width (RBC) [Entitic vol] 45.7 fL 35.1-43.9 Erythrocyte distribution width (RBC) [Ratio] 14.8 % 11.6-14.6 Immature granulocytes/100 WBC (Bld) 0.200 % 0.0-0.9 Comment on above: IG% - Immature Granu locytes (promyelocytes, myelocytes and metamyelocytes) > 1% indicates that a LEFT SHIFT is Present. MCH (RBC) [Entitic mass] 28.1 pg 27.0-32.0 Nucleated RBC/100 WBC (Bld) [Ratio] 0 % 0-5 MCHC Auto (RBC) [Mass/Vol]Or dered By: Sumit Whipple on 05-09-2023 MCHC (RBC) [Mass/Vol] 33.2 g/dL 32-36 [facility] No Panel InformationOrdered By: Sumit Whipple on 05-09-2023 Estimated GFR (MDRD) Amer 71 mL/min >60 Comment on above: GFR Calc Estimated GFR (MDRD) Non-Af Amer 58 mL/min >60 Comment on above: Non- GFR Calc Thyroid Stimulating Hormone (TSH) 3.16 uIU/mL 0.358-3.74 Vitamin D 25-Hydroxy 56.1 ng/mL [facility] Comment on above: Vitamin D 25(OH) Sta tus Range Deficiency <20 ng/mL (50nmol/L) Insufficiency 20 - 30 ng/mL (50 - 75 nmol/L) Sufficiency 30 - 100 ng/mL (75 - 250 nmol/L) Toxicity >100 ng/mL (>250 nmol/L) Platelets bldOrdered By: Sumit Whipple on 05-09-2023 Platelets (Bld) [#/Vol] 298 10*3/uL 150-450 Serum or plasma albumin dot urement (mass/volume)Ordered By: Sumit Whipple on 05-09-2023 Albumin [Mass/Vol] 3.4 g/dL 3.2-5.0 [facility] Serum or plasma albumin/glob ulin mass ratioOrdered By: Sumit Whipple on 05-09-2023 Albumin/Globulin [Mass ratio] 1.1 {ratio} 0.9-2.4 Serum or plasma calcium dot urement (mass/volume)Ordered By: Sumit Whipple on 05-09-2023 Calcium [Mass/Vol] 9.1 mg/dL 8.5-10.1 [facility] Serum or plasma creatinine m easurement (mass/volume)Ordered By: Sumit Whipple on 05-09-2023 Creatinine [Mass/Vol] 0.98 mg/dL 0.55-1.02 [facility] Comment on above: The validity of the calculated GFR & GFRAA in patients over 70 years has not been determined. Clinical correlation is essential. Serum or plasma urea nitroge n measurement (mass/volume)Ordered By: Sumit Whipple on 05-09-2023 Urea nitrogen [Mass/Vol] 25 mg/dL 7-18 Thin prep Papanicolaou smear with manual screeningOrdered By: Sumit Whipple 05-09-2023 Thin prep Papanicolaou smear with manual screening 27 U/L 15-37 Thin prep Papanicolaou smear with manual screening 5 5-15 Absolute lymphocyte countOrd ered By: Sumit Whipple on 04-18-2023 Lymphocytes Auto (Unsp spec) [#/Vol] 2.57 10*3/uL 0.83-4.51 Basophil percentageOrdered B y: Sumit Whipple on 04-18-2023 Basophils/100 WBC (Bld) 0.4 % 0-1 Chloride [Moles/Vol] 103 mmol/L 98-107 [facility] Eosinophils/100 WBC (Bld) 3.5 % 0-5 Glucose [Mass/Vol] 81 mg/dL 74-106 [facility] Neutrophils (Bld) [#/Vol] 4.0 10*3/uL 2.0-7.7 Neutrophils/100 WBC (Bld) 53.7 % 47-70 Potassium [Moles/Vol] 4.6 mmol/L 3.5-5.1 [facility] Sodium [Moles/Vol] 136 mmol/L 136-145 [facility] WBC (Bld) [#/Vol] 7.4 10*3/uL 4.4-11.0 [facility] Blood erythrocytes count (nu mber/volume)Ordered By: Sumit Whipple on 04-18-2023 RBC (Bld) [#/Vol] 4.96 10*6/uL 4.2-5.4 [facility] Blood hemoglobin measurement (mass/volume)Ordered By: Sumit Whipple on 04-18-2023 Hemoglobin (Bld) [Mass/Vol] 13.2 g/dL 12.0-15.0 Blood lymphocytes/100 leukoc ytesOrdered By: Sumit Whipple on 04-18-2023 Lymphocytes/100 WBC (Bld) 34.6 % 19-41 Blood monocytes/100 leukocyt esOrdered By: Sumit Whipple on 04-18-2023 Monocytes/100 WBC (Bld) 7.5 % 0-10 Blood platelet mean volumeOr dered By: Sumit Whipple on 04-18-2023 Platelet mean volume (Bld) [Entitic vol] 10.1 fL 6.2-12.0 Determination of erythrocyte mean corpuscular volume (MCV)Ordered By: Sumit Whipple on 04-18-2023 MCV (RBC) [Entitic vol] 85.3 fL 81-99 Hematocrit Auto (Bld) [Volum e fraction]Ordered By: Sumit Whipple on 04-18-2023 Hematocrit (Bld) [Volume fraction] 42.3 % 37-47 Laboratory - Chemistry and C hemistry - challengeOrdered By: Sumit Whipple on 04-18-2023 CO2 [Moles/Vol] 28.0 mmol/L 21.0-32.0 Urea nitrogen/Creatinine [Mass ratio] 19.0 mg/mg 10-20 Laboratory - Hematology and Cell countsOrdered By: Sumit Whipple on 04-18-2023 Erythrocyte distribution width (RBC) [Entitic vol] 44.7 fL 35.1-43.9 Erythrocyte distribution width (RBC) [Ratio] 14.6 % 11.6-14.6 Immature granulocytes/100 WBC (Bld) 0.300 % 0.0-0.9 Comment on above: IG% - Immature Granu locytes (promyelocytes, myelocytes and metamyelocytes) > 1% indicates that a LEFT SHIFT is Present. MCH (RBC) [Entitic mass] 26.6 pg 27.0-32.0 Nucleated RBC/100 WBC (Bld) [Ratio] 0 % 0-5 MCHC Auto (RBC) [Mass/Vol]Or dered By: Sumit Whipple on 04-18-2023 MCHC (RBC) [Mass/Vol] 31.2 g/dL 32-36 [facility] No Panel InformationOrdered By: Sumit Whipple on 04-18-2023 Estimated GFR (MDRD) Amer 69 mL/min >60 Comment on above: GFR Calc Estimated GFR (MDRD) Non-Af Amer 57 mL/min >60 Comment on above: Non- GFR Calc Thyroid Stimulating Hormone (TSH) 0.67 uIU/mL 0.358-3.74 Platelets bldOrdered By: Sumit Whipple on 04-18-2023 Platelets (Bld) [#/Vol] 337 10*3/uL 150-450 Serum or plasma C reactive p rotein measurement (mass/volume)Ordered By: Sumit Whipple on 04-18-2023 CRP [Mass/Vol] mg/L 0.0-3.0 Comment on above: C-Reactive Protein ( CRP) provides useful information for thediagnosis, therapy and monitoring of inflammatory processesand associated diseases. For the evaluation of Relative Riskfor Cardiovascular Disease, a High Sensitivity CRP (HSCRP)should be ordered. Serum or plasma calcium dot urement (mass/volume)Ordered By: Sumit Whipple on 04-18-2023 Calcium [Mass/Vol] 9.5 mg/dL 8.5-10.1 [facility] Serum or plasma creatinine m easurement (mass/volume)Ordered By: Sumit Whipple on 04-18-2023 Creatinine [Mass/Vol] 1.00 mg/dL 0.55-1.02 [facility] Comment on above: The validity of the calculated GFR & GFRAA in patients over 70 years has not been determined. Clinical correlation is essential. Serum or plasma urea nitroge n measurement (mass/volume)Ordered By: Sumit Whipple on 04-18-2023 Urea nitrogen [Mass/Vol] 19 mg/dL 7-18 Thin prep Papanicolaou smear with manual screeningOrdered By: Sumit Whipple on 04-18-2023 Thin prep Papanicolaou smear with manual screening 5 5-15 Absolute lymphocyte countOrd ered By: Dr. Whipple on 11-01-2022 Lymphocytes Auto (Unsp spec) [#/Vol] 1.59 10*3/uL 0.83-4.51 Basophil percentageOrdered B y: Dr. Whipple on 11-01-2022 Basophils/100 WBC (Bld) 0.5 % 0-1 Bilirubin [Mass/Vol] 0.30 mg/dL 0.20-1.00 [facility] Comment on above: For patients on eltr ombopag therapy, use of Dimension [place] TBIL is not recommended. Chloride [Moles/Vol] 105 mmol/L 98-107 [facility] Eosinophils/100 WBC (Bld) 3.8 % 0-5 Glucose [Mass/Vol] 115 mg/dL 74-106 [facility] Comment on above: Fasting Glucose resu lt from 100 to 125 mg/dL suggests IMPAIRED HOMEOSTASIS per A.D.A. criteria. Neutrophils (Bld) [#/Vol] 4.2 10*3/uL 2.0-7.7 Neutrophils/100 WBC (Bld) 63.7 % 47-70 Potassium [Moles/Vol] 4.5 mmol/L 3.5-5.1 [facility] Protein [Mass/Vol] 6.8 g/dL 6.4-8.2 [facility] Sodium [Moles/Vol] 139 mmol/L 136-145 [facility] WBC (Bld) [#/Vol] 6.5 10*3/uL 4.4-11.0 [facility] Blood erythrocytes count (nu mber/volume)Ordered By: Dr. Whipple on 11-01-2022 RBC (Bld) [#/Vol] 4.69 10*6/uL 4.2-5.4 [facility] Blood hemoglobin measurement (mass/volume)Ordered By: Dr. Whipple on 11-01-2022 Hemoglobin (Bld) [Mass/Vol] 12.8 g/dL 12.0-15.0 Blood lymphocytes/100 leukoc ytesOrdered By: Dr. Whipple on 11-01-2022 Lymphocytes/100 WBC (Bld) 24.4 % 19-41 Blood monocytes/100 leukocyt esOrdered By: Dr. Whipple on 11-01-2022 Monocytes/100 WBC (Bld) 7.1 % 0-10 Blood platelet mean volumeOr dered By: Dr. Whipple on 11-01-2022 Platelet mean volume (Bld) [Entitic vol] 10.5 fL 6.2-12.0 Determination of erythrocyte mean corpuscular volume (MCV)Ordered By: Dr. Whipple on 11-01-2022 MCV (RBC) [Entitic vol] 85.3 fL 81-99 Hematocrit Auto (Bld) [Volum e fraction]Ordered By: Dr. Whipple on 11-01-2022 Hematocrit (Bld) [Volume fraction] 40.0 % 37-47 Laboratory - Chemistry and C hemistry - challengeOrdered By: Dr. Whipple on 11-01-2022 ALP [Catalytic activity/Vol] 59 U/L 45-117 ALT [Catalytic activity/Vol] 24 U/L 13-56 CO2 [Moles/Vol] 29.0 mmol/L 21.0-32.0 Globulin (S) [Mass/Vol] 3.3 g/dL 2.2-4.2 Urea nitrogen/Creatinine [Mass ratio] 25.2 mg/mg 10-20 Laboratory - Hematology and Cell countsOrdered By: Dr. Whipple on 11-01-2022 Erythrocyte distribution width (RBC) [Entitic vol] 44.9 fL 35.1-43.9 Erythrocyte distribution width (RBC) [Ratio] 14.6 % 11.6-14.6 Immature granulocytes/100 WBC (Bld) 0.500 % 0.0-0.9 Comment on above: IG% - Immature Granu locytes (promyelocytes, myelocytes and metamyelocytes) > 1% indicates that a LEFT SHIFT is Present. MCH (RBC) [Entitic mass] 27.3 pg 27.0-32.0 Nucleated RBC/100 WBC (Bld) [Ratio] 0 % 0-5 MCHC Auto (RBC) [Mass/Vol]Or dered By: Dr. Whipple on 11-01-2022 MCHC (RBC) [Mass/Vol] 32.0 g/dL 32-36 [facility] No Panel InformationOrdered By: Dr. Whipple on 11-01-2022 Estimated GFR (MDRD) Amer 77 mL/min >60 Comment on above: GFR Calc Estimated GFR (MDRD) Non-Af Amer 64 mL/min >60 Comment on above: Non- GFR Calc Thyroid Stimulating Hormone (TSH) 1.16 uIU/mL 0.358-3.74 Vitamin D 25-Hydroxy 73.4 ng/mL [facility] Comment on above: Vitamin D 25(OH) Sta tus Range Deficiency <20 ng/mL (50nmol/L) Insufficiency 20 - 30 ng/mL (50 - 75 nmol/L) Sufficiency 30 - 100 ng/mL (75 - 250 nmol/L) Toxicity >100 ng/mL (>250 nmol/L) Platelets bldOrdered By: Dr. Whipple on 11-01-2022 Platelets (Bld) [#/Vol] 297 10*3/uL 150-450 Serum or plasma albumin dot urement (mass/volume)Ordered By: Dr. Whipple on 11-01-2022 Albumin [Mass/Vol] 3.5 g/dL 3.2-5.0 [facility] Serum or plasma albumin/glob ulin mass ratioOrdered By: Dr. Whipple on 11-01-2022 Albumin/Globulin [Mass ratio] 1.1 {ratio} 0.9-2.4 Serum or plasma calcium dot urement (mass/volume)Ordered By: Dr. Whipple on 11-01-2022 Calcium [Mass/Vol] 9.7 mg/dL 8.5-10.1 [facility] Serum or plasma creatinine m easurement (mass/volume)Ordered By: Dr. Whipple on 11-01-2022 Creatinine [Mass/Vol] 0.91 mg/dL 0.55-1.02 [facility] Comment on above: The validity of the calculated GFR & GFRAA in patients over 70 years has not been determined. Clinical correlation is essential. Serum or plasma urea nitroge n measurement (mass/volume)Ordered By: Dr. Whipple on 11-01-2022 Urea nitrogen [Mass/Vol] 23 mg/dL 7-18 Thin prep Papanicolaou smear with manual screeningOrdered By: Dr. Whipple on 11-01-2022 Thin prep Papanicolaou smear with manual screening 18 U/L 15-37 Thin prep Papanicolaou smear with manual screening 5 5-15 XR FOOT GENERAL 3V AP/LAT/OB L BILATERALon 10-24-2022 [facility] Absolute lymphocyte counton 05-04-2022 Lymphocytes Auto (Unsp spec) [#/Vol] 1.98 10*3/uL 0.83-4.51 Work Phone: Basophil percentageon 2021 Basophils/100 WBC (Bld) 0.6 % 0-1 Work Phone: Bilirubin [Mass/Vol] 0.30 mg/dL 0.20-1.00 [facility] Work Phone: Comment on above: For patients on eltr ombopag therapy, use of Dimension [place] TBIL is not recommended. Chloride [Moles/Vol] 104 mmol/L 98-107 [facility] Work Phone: [phone] Eosinophils/100 WBC (Bld) 4.4 % 0-5 Work Phone: Glucose [Mass/Vol] 132 mg/dL 74-106 [facility] Work Phone: Comment on above: Fasting Glucose resu lt greater than or equal to 126 mg/dL suggests DIABETES MELLITUS per A.D.A. criteria. Neutrophils (Bld) [#/Vol] 3.9 10*3/uL 2.0-7.7 Work Phone: Neutrophils/100 WBC (Bld) 57.7 % 47-70 Work Phone: [phone] Potassium [Moles/Vol] 4.6 mmol/L 3.5-5.1 [facility] Work Phone: Protein [Mass/Vol] 7.2 g/dL 6.4-8.2 [facility] Work Phone: [phone] Sodium [Moles/Vol] 140 mmol/L 136-145 [facility] Work Phone: WBC (Bld) [#/Vol] 6.7 10*3/uL 4.4-11.0 [facility] Work Phone: Blood erythrocytes count (nu mber/volume)on 05-04-2022 RBC (Bld) [#/Vol] 4.88 10*6/uL 4.2-5.4 [facility] Work Phone: [phone] Blood hemoglobin measurement (mass/volume)on 05-04-2022 Hemoglobin (Bld) [Mass/Vol] 13.4 g/dL 12.0-15.0 Work Phone: [phone] Blood lymphocytes/100 leukoc yteson 05-04-2022 Lymphocytes/100 WBC (Bld) 29.7 % 19-41 Work Phone: Blood monocytes/100 leukocyt eson 05-04-2022 Monocytes/100 WBC (Bld) 7.4 % 0-10 Work Phone: Blood platelet mean volumeon 05-04-2022 Platelet mean volume (Bld) [Entitic vol] 10.0 fL 6.2-12.0 Work Phone: [phone] Determination of erythrocyte mean corpuscular volume (MCV)on 05-04-2022 MCV (RBC) [Entitic vol] 84.8 fL 81-99 Work Phone: Hematocrit Auto (Bld) [Volum e fraction]on 05-04-2022 Hematocrit (Bld) [Volume fraction] 41.4 % 37-47 Work Phone: Laboratory - Chemistry and C hemistry - challengeon 05-04-2022 ALP [Catalytic activity/Vol] 58 U/L 45-117 Work Phone: ALT [Catalytic activity/Vol] 29 U/L 13-56 Work Phone: CO2 [Moles/Vol] 27.0 mmol/L 21.0-32.0 Work Phone: Globulin (S) [Mass/Vol] 4.0 g/dL 2.2-4.2 Work Phone: Urea nitrogen/Creatinine [Mass ratio] 26.5 mg/mg 10-20 Work Phone: Laboratory - Hematology and Cell countson 05-04-2022 Erythrocyte distribution width (RBC) [Entitic vol] 44.0 fL 35.1-43.9 Work Phone: Erythrocyte distribution width (RBC) [Ratio] 14.4 % 11.6-14.6 Work Phone: Immature granulocytes/100 WBC (Bld) 0.200 % 0.0-0.9 Work Phone: Comment on above: IG% - Immature Granu locytes (promyelocytes, myelocytes and metamyelocytes) > 1% indicates that a LEFT SHIFT is Present. MCH (RBC) [Entitic mass] 27.5 pg 27.0-32.0 Work Phone: Nucleated RBC/100 WBC (Bld) [Ratio] 0 % 0-5 Work Phone: MCHC Auto (RBC) [Mass/Vol]on 05-04-2022 MCHC (RBC) [Mass/Vol] 32.4 g/dL 32-36 [facility] Work Phone: No Panel Informationon 05-04 Estimated GFR (MDRD) Amer 71 mL/min >60 Work Phone: Comment on above: GFR Calc Estimated GFR (MDRD) Non-Af Amer 59 mL/min >60 Work Phone: Comment on above: Non- GFR Calc Thyroid Stimulating Hormone (TSH) 1.30 uIU/mL 0.358-3.74 Work Phone: Vitamin D 25-Hydroxy 68.2 ng/mL [facility] Work Phone: Comment on above: Vitamin D 25(OH) Sta tus Range Deficiency <20 ng/mL (50nmol/L) Insufficiency 20 - 30 ng/mL (50 - 75 nmol/L) Sufficiency 30 - 100 ng/mL (75 - 250 nmol/L) Toxicity >100 ng/mL (>250 nmol/L) Platelets bldon 05-04-2022 Platelets (Bld) [#/Vol] 351 10*3/uL 150-450 Work Phone: Serum or plasma albumin dot urement (mass/volume)on 05-04-2022 Albumin [Mass/Vol] 3.2 g/dL 3.2-5.0 [facility] Work Phone: Serum or plasma albumin/glob ulin mass ratioon 05-04-2022 Albumin/Globulin [Mass ratio] 0.8 {ratio} 0.9-2.4 Work Phone: Serum or plasma calcium dot urement (mass/volume)on 05-04-2022 Calcium [Mass/Vol] 9.6 mg/dL 8.5-10.1 [facility] Work Phone: Serum or plasma creatinine m easurement (mass/volume)on 05-04-2022 Creatinine [Mass/Vol] 0.98 mg/dL 0.55-1.02 [facility] Work Phone: Comment on above: The validity of the calculated GFR & GFRAA in patients over 70 years has not been determined. Clinical correlation is essential. Serum or plasma urea nitroge n measurement (mass/volume)on 05-04-2022 Urea nitrogen [Mass/Vol] 26 mg/dL 7-18 Work Phone: Thin prep Papanicolaou smear with manual screeningon 05-04-2022 Thin prep Papanicolaou smear with manual screening 15 U/L 15-37 Work Phone: Thin prep Papanicolaou smear with manual screening 9 5-15 Work Phone: Basophil percentageon 2021 Chloride [Moles/Vol] 99 mmol/L 98-107 [facility] Work Phone: Glucose [Mass/Vol] 133 mg/dL 74-106 [facility] Work Phone: Comment on above: Fasting Glucose resu lt greater than or equal to 126 mg/dL suggests DIABETES MELLITUS per A.D.A. criteria. Potassium [Moles/Vol] 4.3 mmol/L 3.5-5.1 [facility] Work Phone: Sodium [Moles/Vol] 133 mmol/L 136-145 [facility] Work Phone: Laboratory - Chemistry and C hemistry - challengeon 02-21-2022 CO2 [Moles/Vol] 27.0 mmol/L 21.0-32.0 Work Phone: Urea nitrogen/Creatinine [Mass ratio] 26.3 mg/mg 10-20 Work Phone: No Panel Informationon 02-21 Estimated GFR (MDRD) Amer 77 mL/min >60 Work Phone: Comment on above: GFR Calc Estimated GFR (MDRD) Non-Af Amer 64 mL/min >60 Work Phone: Comment on above: Non- GFR Calc Serum or plasma calcium dot urement (mass/volume)on 02-21-2022 Calcium [Mass/Vol] 9.8 mg/dL 8.5-10.1 [facility] Work Phone: Serum or plasma creatinine m easurement (mass/volume)on 02-21-2022 Creatinine [Mass/Vol] 0.91 mg/dL 0.55-1.02 [facility] Work Phone: Comment on above: The validity of the calculated GFR & GFRAA in patients over 70 years has not been determined. Clinical correlation is essential. Serum or plasma urea nitroge n measurement (mass/volume)on 02-21-2022 Urea nitrogen [Mass/Vol] 24 mg/dL 7-18 Work Phone: Thin prep Papanicolaou smear with manual screeningon 02-21-2022 Thin prep Papanicolaou smear with manual screening 7 5-15 Work Phone: Absolute lymphocyte counton 10-27-2021 Lymphocytes Auto (Unsp spec) [#/Vol] 2.88 10*3/uL 0.83-4.51 Work Phone: Basophil percentageon 2021 Basophils/100 WBC (Bld) 0.4 % 0-1 Work Phone: Bilirubin [Mass/Vol] 0.30 mg/dL 0.20-1.00 [facility] Work Phone: Comment on above: For patients on eltr ombopag therapy, use of Dimension [place] TBIL is not recommended. Chloride [Moles/Vol] 101 mmol/L 98-107 [facility] Work Phone: [phone] Eosinophils/100 WBC (Bld) 1.7 % 0-5 Work Phone: [phone] Glucose [Mass/Vol] 88 mg/dL 74-106 [facility] Work Phone: [phone] Neutrophils (Bld) [#/Vol] 4.7 10*3/uL 2.0-7.7 Work Phone: [phone] Neutrophils/100 WBC (Bld) 55.7 % 47-70 Work Phone: [phone] Potassium [Moles/Vol] 4.4 mmol/L 3.5-5.1 [facility] Work Phone: [phone] Protein [Mass/Vol] 7.3 g/dL 6.4-8.2 [facility] Work Phone: [phone] Sodium [Moles/Vol] 136 mmol/L 136-145 [facility] Work Phone: [phone] WBC (Bld) [#/Vol] 8.4 10*3/uL 4.4-11.0 [facility] Work Phone: Blood erythrocytes count (nu mber/volume)on 10-27-2021 RBC (Bld) [#/Vol] 4.64 10*6/uL 4.2-5.4 [facility] Work Phone: [phone] Blood hemoglobin measurement (mass/volume)on 10-27-2021 Hemoglobin (Bld) [Mass/Vol] 13.7 g/dL 12.0-15.0 Work Phone: [phone] Blood lymphocytes/100 leukoc yteson 10-27-2021 Lymphocytes/100 WBC (Bld) 34.2 % 19-41 Work Phone: Blood monocytes/100 leukocyt eson 10-27-2021 Monocytes/100 WBC (Bld) 7.8 % 0-10 Work Phone: Blood platelet mean volumeon 10-27-2021 Platelet mean volume (Bld) [Entitic vol] 10.1 fL 6.2-12.0 Work Phone: Determination of erythrocyte mean corpuscular volume (MCV)on 10-27-2021 MCV (RBC) [Entitic vol] 87.1 fL 81-99 Work Phone: Hematocrit Auto (Bld) [Volum e fraction]on 10-27-2021 Hematocrit (Bld) [Volume fraction] 40.4 % 37-47 Work Phone: Laboratory - Chemistry and C hemistry - challengeon 10-27-2021 ALP [Catalytic activity/Vol] 55 U/L 45-117 Work Phone: ALT [Catalytic activity/Vol] 25 U/L 13-56 Work Phone: CO2 [Moles/Vol] 28.0 mmol/L 21.0-32.0 Work Phone: Globulin (S) [Mass/Vol] 3.5 g/dL 2.2-4.2 Work Phone: Urea nitrogen/Creatinine [Mass ratio] 17.8 mg/mg 10-20 Work Phone: Laboratory - Hematology and Cell countson 10-27-2021 Erythrocyte distribution width (RBC) [Entitic vol] 45.9 fL 35.1-43.9 Work Phone: Erythrocyte distribution width (RBC) [Ratio] 14.4 % 11.6-14.6 Work Phone: Immature granulocytes/100 WBC (Bld) 0.200 % 0.0-0.9 Work Phone: Comment on above: IG% - Immature Granu locytes (promyelocytes, myelocytes and metamyelocytes) > 1% indicates that a LEFT SHIFT is Present. MCH (RBC) [Entitic mass] 29.5 pg 27.0-32.0 Work Phone: Nucleated RBC/100 WBC (Bld) [Ratio] 0 % 0-5 Work Phone: MCHC Auto (RBC) [Mass/Vol]on 10-27-2021 MCHC (RBC) [Mass/Vol] 33.9 g/dL 32-36 [facility] Work Phone: No Panel Informationon 10-27 Estimated GFR (MDRD) Amer 64 mL/min >60 Work Phone: Comment on above: GFR Calc Estimated GFR (MDRD) Non-Af Amer 53 mL/min >60 Work Phone: Comment on above: Non- GFR Calc Thyroid Stimulating Hormone (TSH) 6.94 uIU/mL 0.358-3.74 Work Phone: Vitamin D 25-Hydroxy 67.3 ng/mL [facility] Work Phone: Comment on above: Vitamin D 25(OH) Sta tus Range Deficiency <20 ng/mL (50nmol/L) Insufficiency 20 - 30 ng/mL (50 - 75 nmol/L) Sufficiency 30 - 100 ng/mL (75 - 250 nmol/L) Toxicity >100 ng/mL (>250 nmol/L) Platelets bldon 10-27-2021 Platelets (Bld) [#/Vol] 354 10*3/uL 150-450 Work Phone: Serum or plasma albumin dot urement (mass/volume)on 10-27-2021 Albumin [Mass/Vol] 3.8 g/dL 3.2-5.0 [facility] Work Phone: Serum or plasma albumin/glob ulin mass ratioon 10-27-2021 Albumin/Globulin [Mass ratio] 1.1 {ratio} 0.9-2.4 Work Phone: Serum or plasma calcium dot urement (mass/volume)on 10-27-2021 Calcium [Mass/Vol] 9.6 mg/dL 8.5-10.1 [facility] Work Phone: Serum or plasma creatinine m easurement (mass/volume)on 10-27-2021 Creatinine [Mass/Vol] 1.07 mg/dL 0.55-1.02 [facility] Work Phone: Comment on above: The validity of the calculated GFR & GFRAA in patients over 70 years has not been determined. Clinical correlation is essential. Serum or plasma urea nitroge n measurement (mass/volume)on 10-27-2021 Urea nitrogen [Mass/Vol] 19 mg/dL 7-18 Work Phone: Thin prep Papanicolaou smear with manual screeningon 10-27-2021 Thin prep Papanicolaou smear with manual screening 12 U/L 15-37 Work Phone: Thin prep Papanicolaou smear with manual screening 7 5-15 Work Phone: Basophil percentageon 2021 Basophil percentage 4.0 mg/dL 2.5-4.9 [facility] Work Phone: Chloride [Moles/Vol] 103 mmol/L 98-107 [facility] Work Phone: Glucose [Mass/Vol] 184 mg/dL 74-106 [facility] Work Phone: Comment on above: Fasting Glucose resu lt greater than or equal to 126 mg/dL suggests DIABETES MELLITUS per A.D.A. criteria. Potassium [Moles/Vol] 4.6 mmol/L 3.5-5.1 [facility] Work Phone: Sodium [Moles/Vol] 137 mmol/L 136-145 [facility] Work Phone: WBC (Bld) [#/Vol] 7.1 10*3/uL 4.4-11.0 [facility] Work Phone: Blood erythrocytes count (nu mber/volume)on 09-19-2021 RBC (Bld) [#/Vol] 4.68 10*6/uL 4.2-5.4 [facility] Work Phone: Blood hemoglobin measurement (mass/volume)on 09-19-2021 Hemoglobin (Bld) [Mass/Vol] 13.3 g/dL 12.0-15.0 Work Phone: Blood platelet mean volumeon 09-19-2021 Platelet mean volume (Bld) [Entitic vol] 9.6 fL 6.2-12.0 Work Phone: Determination of erythrocyte mean corpuscular volume (MCV)on 09-19-2021 MCV (RBC) [Entitic vol] 86.1 fL 81-99 Work Phone: Hematocrit Auto (Bld) [Volum e fraction]on 09-19-2021 Hematocrit (Bld) [Volume fraction] 40.3 % 37-47 Work Phone: Laboratory - Chemistry and C hemistry - challengeon 09-19-2021 CO2 [Moles/Vol] 26.0 mmol/L 21.0-32.0 Work Phone: Urea nitrogen/Creatinine [Mass ratio] 19.8 mg/mg 10-20 Work Phone: Laboratory - Hematology and Cell countson 09-19-2021 Erythrocyte distribution width (RBC) [Entitic vol] 43.8 fL 35.1-43.9 Work Phone: Erythrocyte distribution width (RBC) [Ratio] 14.1 % 11.6-14.6 Work Phone: MCH (RBC) [Entitic mass] 28.4 pg 27.0-32.0 Work Phone: MCHC Auto (RBC) [Mass/Vol]on 09-19-2021 MCHC (RBC) [Mass/Vol] 33.0 g/dL 32-36 [facility] Work Phone: No Panel Informationon 09-19 Estimated GFR (MDRD) Amer 69 mL/min >60 Work Phone: Comment on above: GFR Calc Estimated GFR (MDRD) Non-Af Amer 57 mL/min >60 Work Phone: Comment on above: Non- GFR Calc Parathyroid Hormone (Intact) 31.0 pg/mL 18.4-80.1 Work Phone: Platelets bldon 09-19-2021 Platelets (Bld) [#/Vol] 330 10*3/uL 150-450 Work Phone: Serum or plasma albumin dot urement (mass/volume)on 09-19-2021 Albumin [Mass/Vol] 3.6 g/dL 3.2-5.0 [facility] Work Phone: Serum or plasma calcium dot urement (mass/volume)on 09-19-2021 Calcium [Mass/Vol] 9.8 mg/dL 8.5-10.1 [facility] Work Phone: Serum or plasma creatinine m easurement (mass/volume)on 09-19-2021 Creatinine [Mass/Vol] 1.01 mg/dL 0.55-1.02 [facility] Work Phone: Comment on above: The validity of the calculated GFR & GFRAA in patients over 70 years has not been determined. Clinical correlation is essential. Serum or plasma urea nitroge n measurement (mass/volume)on 09-19-2021 Urea nitrogen [Mass/Vol] 20 mg/dL 7-18 Work Phone: Basophil percentageon 2020 Basophil percentage 3.6 mg/dL 2.5-4.9 [facility] Work Phone: Chloride [Moles/Vol] 102 mmol/L 98-107 [facility] Work Phone: Glucose [Mass/Vol] 191 mg/dL 74-106 [facility] Work Phone: Comment on above: Fasting Glucose resu lt greater than or equal to 126 mg/dL suggests DIABETES MELLITUS per A.D.A. criteria.Please note revised GLUCOSE reference range effective 2017. Potassium [Moles/Vol] 4.3 mmol/L 3.5-5.1 [facility] Work Phone: Sodium [Moles/Vol] 136 mmol/L 136-145 [facility] Work Phone: Laboratory - Chemistry and C hemistry - challengeon 07-14-2021 CO2 [Moles/Vol] 27.0 mmol/L 21.0-32.0 Work Phone: Urea nitrogen/Creatinine [Mass ratio] 22.6 mg/mg 10-20 Work Phone: No Panel Informationon 07-14 Estimated GFR (MDRD) Amer 72 mL/min >60 Work Phone: Comment on above: GFR Calc Estimated GFR (MDRD) Non-Af Amer 59 mL/min >60 Work Phone: Comment on above: Non- GFR Calc Serum or plasma albumin dot urement (mass/volume)on 07-14-2021 Albumin [Mass/Vol] 3.4 g/dL 3.2-5.0 [facility] Work Phone: Serum or plasma calcium dot urement (mass/volume)on 07-14-2021 Calcium [Mass/Vol] 9.6 mg/dL 8.5-10.1 [facility] Work Phone: Serum or plasma creatinine m easurement (mass/volume)on 07-14-2021 Creatinine [Mass/Vol] 0.97 mg/dL 0.55-1.02 [facility] Work Phone: Comment on above: The validity of the calculated GFR & GFRAA in patients over 70 years has not been determined. Clinical correlation is essential. Serum or plasma urea nitroge n measurement (mass/volume)on 07-14-2021 Urea nitrogen [Mass/Vol] 22 mg/dL 7-18 Work Phone: Urine creatinine measurement (mass/volume)on 07-14-2021 Creatinine (U) [Mass/Vol] 144.00 mg/dL NO RANGE EST. Work Phone: Urine protein measurement (m ass/volume)on 07-14-2021 Protein (U) [Mass/Vol] 13.8 mg/dL 0.0-11.8 [facility] Work Phone: Urine protein/creatinine mas s ratioon 07-14-2021 Protein/Creatinine (U) [Mass ratio] 96 mg/g CRE 0-200 Work Phone: .Auto Diffon 02-19-2019 Ammonia (P) [Mass/Vol] 0.60 10 3/mcL Normal 0.15-1.00 [facility] ([place]) Comment on above: Performed By: #### A ROJAS, CBC, ADIFF #### [address] [address] #### B12, GFR, FE, BMP, FOL #### [address] [address] Basophils (Bld) [#/Vol] 0.00 10 3/mcL Normal 0.00-0.19 [facility] ([place]) Comment on above: Performed By: #### A ROJAS, CBC, ADIFF #### [address] [address] #### B12, GFR, FE, BMP, FOL #### [address] [address] Basophils/100 WBC (Bld) 0.4 % Normal 0.0-2.5 [facility] ([place]) Comment on above: Performed By: #### A ROJAS, CBC, ADIFF #### [address] [address] #### B12, GFR, FE, BMP, FOL #### [address] [address] Eosinophils (Bld) [#/Vol] 0.20 10 3/mcL Normal 0.00-0.40 [facility] ([place]) Comment on above: Performed By: #### A ROJAS, CBC, ADIFF #### [place] [address] #### B12, GFR, FE, BMP, FOL #### [address] [address] Eosinophils/100 WBC (Bld) 2.5 % Normal 0.0-7.0 [facility] ([place]) Comment on above: Performed By: #### A ROJAS, CBC, ADIFF #### [address] [address] #### B12, GFR, FE, BMP, FOL #### [address] [address] Lymphocytes (Bld) [#/Vol] 1.50 10 3/mcL Normal 0.77-3.85 [facility] ([place]) Comment on above: Performed By: #### A ROJAS, CBC, ADIFF #### [place] [address] #### B12, GFR, FE, BMP, FOL #### [address] [address] Lymphocytes/100 WBC (Bld) 21.3 % Normal 10.0-50.0 [facility] ([place]) Comment on above: Performed By: #### A ROJAS, CBC, ADIFF #### [address] [address] #### B12, GFR, FE, BMP, FOL #### [address] [address] Monocytes/100 WBC (Bld) 8.1 % Normal 1.7-13.0 [facility] ([place]) Comment on above: Performed By: #### A ROJAS, CBC, ADIFF #### [address] [address] #### B12, GFR, FE, BMP, FOL #### [address] [address] Neutrophils/100 WBC (Bld) 67.7 % Normal 37.0-80.0 [facility] ([place]) Comment on above: Performed By: #### A ROJAS, CBC, ADIFF #### [address] [address] #### B12, GFR, FE, BMP, FOL #### [address] [address] .GFRon 02-19-2019 GFR Non- 50 ml/min/1.73sqm Normal [facility] ([place]) Comment on above: Result Comment: GFR Population [...] By: #### A ROJAS, CBC, ADIFF #### [address] [address] #### B12, GFR, FE, BMP, FOL #### [address] [address] GFR 61 ml/min/1.73sqm Normal [facility] ([place]) Comment on above: Result Comment: GFR Population [...] By: #### A ROJAS, CBC, ADIFF #### [address] [address] #### B12, GFR, FE, BMP, FOL #### [address] [address] .NEUABSon 02-19-2019 Neutrophils (Bld) [#/Vol] 4.90 10 3/mcL Normal 2.85-6.16 [facility] ([place]) Comment on above: Performed By: #### A ROJAS, CBC, ADIFF #### [address] [address] #### B12, GFR, FE, BMP, FOL #### [address] [address] B12on 02-19-2019 Cobalamin (Vitamin B12) [Mass/Vol] 258 pg/mL Normal 211-911 [facility] ([place]) Comment on above: Performed By: #### A ROJAS, CBC, ADIFF #### [address] [address] #### B12, GFR, FE, BMP, FOL #### [address] [address] BMPon 02-19-2019 Calcium [Mass/Vol] 8.8 mg/dL Normal 8.4-10.2 [facility] ([place]) Comment on above: Performed By: #### A ROJAS, CBC, ADIFF #### [address] [address] #### B12, GFR, FE, BMP, FOL #### [address] [address] Chloride [Moles/Vol] 103 mmol/L Normal 98-107 [facility] ([place]) Comment on above: Performed By: #### A ROJAS, CBC, ADIFF #### [address] [address] #### B12, GFR, FE, BMP, FOL #### [address] [address] CO2 [Moles/Vol] 32 mmol/L High 23-31 [facility] ([place]) Comment on above: Performed By: #### A ROJAS, CBC, ADIFF #### [address] [address] #### B12, GFR, FE, BMP, FOL #### [address] [address] Creatinine [Mass/Vol] 1.07 mg/dL High 0.55-1.02 [facility] ([place]) Comment on above: Performed By: #### A ROJAS, CBC, ADIFF #### [address] [address] #### B12, GFR, FE, BMP, FOL #### [address] [address] Electrolyte Balance 4.0 mEq/L Normal [facility] ([place]) Comment on above: Performed By: #### A ROJAS, CBC, ADIFF #### [address] [address] #### B12, GFR, FE, BMP, FOL #### [address] [address] Glucose [Mass/Vol] 105 mg/dL Normal 83-110 [facility] ([place]) Comment on above: Performed By: #### A ROJAS, CBC, ADIFF #### [address] [address] #### B12, GFR, FE, BMP, FOL #### [address] [address] Potassium [Moles/Vol] 4.2 mmol/L Normal 3.5-5.1 [facility] ([place]) Comment on above: Performed By: #### A ROJAS, CBC, ADIFF #### [address] [address] #### B12, GFR, FE, BMP, FOL #### [address] [address] Sodium [Moles/Vol] 139 mmol/L Normal 136-145 [facility] ([place]) Comment on above: Performed By: #### A ROJAS, CBC, ADIFF #### [address] [address] #### B12, GFR, FE, BMP, FOL #### [place] [address] Urea nitrogen [Mass/Vol] 16 mg/dL Normal 7-18 [facility] ([place]) Comment on above: Performed By: #### A ROJAS, CBC, ADIFF #### [place] [address] #### B12, GFR, FE, BMP, FOL #### [place] [address] Urea nitrogen/Creatinine [Mass ratio] 15 ratio Normal 7-27 [facility] ([place]) Comment on above: Performed By: #### A ROJAS, CBC, ADIFF #### [place] [address] #### B12, GFR, FE, BMP, FOL #### [place] [address] CBCon 02-19-2019 Erythrocyte distribution width (RBC) [Ratio] 18.4 % High 11.5-14.5 [facility] ([place]) Comment on above: Performed By: #### A ROJAS, CBC, ADIFF #### [place] [address] #### B12, GFR, FE, BMP, FOL #### [place] [address] Hematocrit (Bld) [Volume fraction] 32.9 % Low 37.0-47.0 [facility] ([place]) Comment on above: Performed By: #### A ROJAS, CBC, ADIFF #### [place] [address] #### B12, GFR, FE, BMP, FOL #### [address] [address] Hemoglobin (Bld) [Mass/Vol] 11.0 G/dL Low 12.0-16.0 [facility] ([place]) Comment on above: Performed By: #### A ROJAS, CBC, ADIFF #### [place] [address] #### B12, GFR, FE, BMP, FOL #### [place] [address] MCH (RBC) [Entitic mass] 27.5 pg Normal 27.0-31.2 [facility] ([place]) Comment on above: Performed By: #### A ROJAS, CBC, ADIFF #### [place] [address] #### B12, GFR, FE, BMP, FOL #### [place] [address] MCHC (RBC) [Mass/Vol] 33.5 G/dL Normal 33.0-37.0 [facility] ([place]) Comment on above: Performed By: #### A ROJAS, CBC, ADIFF #### [place] [address] #### B12, GFR, FE, BMP, FOL #### [place] [address] MCV (RBC) [Entitic vol] 82.1 fL Normal 80.0-94.0 [facility] ([place]) Comment on above: Performed By: #### A ROJAS, CBC, ADIFF #### [place] [address] #### B12, GFR, FE, BMP, FOL #### [place] [address] Platelet mean volume (Bld) [Entitic vol] 7.6 fL Normal 7.4-10.4 [facility] ([place]) Comment on above: Performed By: #### A ROJAS, CBC, ADIFF #### [address] [address] #### B12, GFR, FE, BMP, FOL #### [address] [address] Platelets (Bld) [#/Vol] 251 10 3/mcL Normal 130-400 [facility] ([place]) Comment on above: Performed By: #### A ROJAS, CBC, ADIFF #### [place] [address] #### B12, GFR, FE, BMP, FOL #### [place] [address] RBC (Bld) [#/Vol] 4.00 10 6/mcL Low 4.20-5.40 [facility] ([place]) Comment on above: Performed By: #### A ROJAS, CBC, ADIFF #### [place] [address] #### B12, GFR, FE, BMP, FOL #### [address] [address] WBC (Bld) [#/Vol] 7.20 10 3/mcL Normal 4.60-10.80 [facility] ([place]) Comment on above: Performed By: #### A ROJAS, CBC, ADIFF #### [place] [address] #### B12, GFR, FE, BMP, FOL #### [address] [address] FEon 02-19-2019 Iron [Mass/Vol] 43 ug/dL Low 50-70 [facility] ([place]) Comment on above: Performed By: #### A ROJAS, CBC, ADIFF #### [place] [address] #### B12, GFR, FE, BMP, FOL #### [place] [address] FOLon 02-19-2019 Folate 27.2 ng/mL High 1.1-20.0 [facility] ([place]) Comment on above: Performed By: #### A ROJAS, CBC, ADIFF #### [facility] [address] [place], [place] [address] #### B12, GFR, FE, BMP, FOL #### [facility] [address] [place], [place] [address] XR KNEE 1 OR 2 VIEWS LEFTon [...] PM Sign Date: 02/18/2019 1:51:39 PM Normal [facility] ([place]) CT KNEE W/O CONTRAST LEFTon 02-04-2019 CT [...] PM Sign Date: 02/04/2019 6:02:48 PM Normal [facility] ([place]) Culture, urine Bacteria identified Cx Nom (U) Positive Work Phone: Vital Signs Date Time Vital Sign Value Performing Clinician Coryi chrisy 08-29-2022 09:41-0500 Body height 173.[address] Sumit Whipple Work Phone: 08-29-2022 09:41-0500 Body mass index (BMI) [Ratio] 27.3 kg/m2 Dr. Sumit Whipple Work Phone: 08-29-2022 09:41-0500 Body temperature 97.2 [degF] Dr. Sumit Whipple Work Phone: 08-29-2022 09:41-0500 Body weight 82.[address] Sumit Whipple Work Phone: 08-29-2022 09:41-0500 Diastolic blood pressure 75 mm[Hg] Dr. Sumit Whipple Work Phone: 08-29-2022 09:41-0500 Heart rate 68 /min Dr. Sumit Whipple Work Phone: 08-29-2022 09:41-0500 Respiratory rate 18 /min Dr. Sumit Whipple Work Phone: 08-29-2022 09:41-0500 SaO2% (BldA) [Mass fraction] 96 % Dr. Sumit Whipple Work Phone: 08-29-2022 09:41-0500 Systolic blood pressure 150 mm[Hg] Dr. Sumit Whipple Work Phone: 12-07-2021 14:48-0400 Body height 173.99 cm [facility] Work Phone: 12-07-2021 14:48-0400 Body weight 91.53 kg [facility] Work Phone: 10-24-2021 11:18-0400 Body height 173.99 cm [facility] Work Phone: 10-24-2021 11:18-0400 Body weight 93.98 kg [facility] Work Phone: 10-10-2021 10:31-0500 Body weight 94.71 kg [facility] Work Phone: Encounters Encounter Date Encounter Type Care Provider Facility Start: 03-16-2025 ambulatory Sumit Chi Sarabjit Facility:[facility] Start: 03-06-2025 ambulatory Sumit Chi Sarabjit Facility:[facility] Start: 03-02-2025 End: 03-02-2025 ambulatory Sumit Chi Sarabjit Facility:[facility] Start: 02-26-2025 End: 02-26-2025 ambulatory Sumit Chi Sarabjit Facility: Start: 02-20-2025 End: 02-20-2025 ambulatory Sumit Chi Sarabjit Facility:[facility] Start: 02-09-2025 ambulatory Sumit Chi Sarabjit Facility:[facility] Start: 02-02-2025 ambulatory Sumit Chi Sarabjit Facility:[facility] Start: 01-26-2025 ambulatory Sumit Chi Sarabjit Facility:[facility] Start: 01-19-2025 ambulatory Sumit Chi Sarabjit Facility:[facility] Start: 01-13-2025 End: 01-13-2025 ambulatory Sumit Chi Sarabjit Facility:[facility] Start: 01-12-2025 End: 01-12-2025 ambulatory Sumit Chi Sarabjit Facility:[facility] Start: 01-07-2025 ambulatory Sumit Chi Sarabjit Facility:[facility] Start: 01-07-2025 End: 01-10-2025 Evaluation and management of inpatient Sumit Chi Sarabjit Facility: Start: 12-26-2024 End: 12-26-2024 ambulatory Sumit Chi Sarabjit Facility:[facility] Start: 12-19-2024 End: 12-19-2024 ambulatory Sumit Chi Sarabjit Facility: Start: 12-09-2024 End: 12-09-2024 ambulatory Sumit Chi Sarabjit Facility: Start: 12-03-2024 End: 12-03-2024 ambulatory Sumit Chi Sarabjit Facility:[facility] Start: 11-25-2024 ambulatory Collette Nieves Facility: [facility] Start: 11-24-2024 ambulatory [facility] cility: Start: 11-18-2024 End: 11-18-2024 ambulatory Sumit Chi Sarabjit Facility:[facility] Start: 11-17-2024 End: 11-17-2024 ambulatory Sumit Chi Sarabjit Facility:[facility] Start: 11-14-2024 ambulatory Sumit Chi Sarabjit Facility:[facility] Start: 11-14-2024 End: 11-14-2024 Emergency department patient visit Sumit Chi Sarabjit Facility: Start: 10-21-2024 End: 10-21-2024 ambulatory Sumit Chi Sarabjit Facility: Start: 10-13-2024 End: 10-17-2024 Evaluation and management of inpatient Sumit Chi Sarabjit Facility: Start: 10-13-2024 ambulatory Sumit Chi Sarabjit Facility:[facility] Start: 10-08-2024 End: 10-08-2024 ambulatory Sumit Chi Sarabjit Facility: Start: 09-05-2024 End: 09-05-2024 ambulatory Sumit Chi Saarbjit Facility:[facility] Start: 09-04-2024 End: 09-04-2024 ambulatory Sumit Chi Sarabjit Facility: Start: 09-02-2024 End: 09-02-2024 ambulatory Sumit Chi Sarabjit Facility: Start: 07-03-2024 End: 07-03-2024 ambulatory Sumit Chi Sarabjit Facility: Start: 06-11-2024 End: 06-11-2024 ambulatory Sumit Chi Sarabjit Facility:[facility] Start: 05-21-2024 End: 05-21-2024 ambulatory Sumit Chi Sarabjit Facility:[facility] Start: 05-14-2024 End: 05-14-2024 ambulatory Sumit Chi Sarabjit Facility: Start: 03-26-2024 End: 03-26-2024 ambulatory Sumit Chi Sarabjit Facility:[facility] Start: 11-19-2023 End: 11-19-2023 ambulatory Work Phone: Start: 11-19-2023 End: 11-19-2023 Patient encounter procedure -Cat Scan, [facility] Work Phone: Start: 11-16-2023 End: 11-16-2023 ambulatory AGA GARCIA Facility:[facility] [place] [facility] Start: 11-16-2023 End: 11-16-2023 Subsequent hospital visit by physician Xr [facility] Work Phone: Radiology Comment on above: Arthritis of foot [M 19.079] Start: 11-16-2023 End: 11-16-2023 Patient encounter procedure Aga Garcia Work Phone: Podiatry Comment on above: 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) (Primary Dx); Arthritis of foot; Callus of foot Start: 11-07-2023 End: 11-07-2023 ambulatory Work Phone: Start: 11-07-2023 End: 11-07-2023 Patient encounter procedure -Laboratory, Phy Office 3rd Flr Start: 07-31-2023 End: 07-31-2023 ambulatory Work Phone: Start: 07-31-2023 End: 07-31-2023 Patient encounter procedure -MRI - [facility] Work Phone: Start: 07-17-2023 End: 07-17-2023 ambulatory Work Phone: Start: 07-17-2023 End: 07-17-2023 [facility] Flr Start: 05-09-2023 End: 05-09-2023 [facility] 3rd Flr Start: 04-18-2023 End: 04-18-2023 ambulatory Work Phone: Start: 04-18-2023 End: 04-18-2023 Patient encounter procedure [facility], [facility] Office 3rd Flr Start: 11-01-2022 End: 11-01-[address] Sumit Whipple Work Phone: Work Phone: Start: 11-01-2022 End: 11-01-[address] Sumit Whipple Work Phone: [facility], [facility] Office 3rd Flr Start: 10-24-2022 End: 10-24-2022 Subsequent hospital visit by physician [facility] Work Phone: Radiology Comment on above: Foot pain, bilateral [M79.671, M79.672] Start: 10-12-2022 Refill Karoline Cervantes MD Work Phone: Psychiatry Comment on above: Refill Request Start: 08-29-2022 End: 08-29-[address] Sumit Whipple Work Phone: Work Phone: Start: 08-29-2022 End: 08-29-[address] Sumit Whipple [facility] Start: 08-29-2022 End: 08-29-[address] Sumit Whipple Work Phone: [facility] Start: 08-21-2022 End: 08-21-2022 ambulatory Work Phone: Start: 08-21-2022 End: 08-21-2022 Patient encounter procedure -Outpatient Breast Imaging Start: 05-17-2022 End: 05-17-2022 [facility] Karoline Cervantes MD Work Phone: Psychiatry Comment on above: Recurrent major depr essive disorder, in partial remission (HCC) (Primary Dx) Start: 05-04-2022 End: 05-04-2022 ambulatory Work Phone: Start: 05-04-2022 End: 05-04-2022 Patient encounter procedure -Laboratory, Phy Office 3rd Flr Start: 03-18-2022 Refill Karoline Cervantes MD Work Phone: Psychiatry Comment on above: Refill Request Start: 03-14-2022 Refill Karoline Cervantes MD Work Phone: Psychiatry Comment on above: Refill Request Start: 02-21-2022 End: 02-21-2022 Patient encounter procedure -Radiology, [facility] Start: 12-07-2021 End: 12-10-2021 [facility] Start: 11-17-2021 End: 11-17-2021 [facility] Karoline Cervantes MD Work Phone: Psychiatry Comment on above: Recurrent major depr essive disorder, in partial remission (HCC) (Primary Dx) Start: 10-27-2021 End: 10-27-2021 Patient encounter procedure -Laboratory, Phy Office 3rd Flr Start: 10-24-2021 End: 11-10-2021 Discharged Recurring -Diabetic Clinic Start: 10-24-2021 Registered Recurring [facility] Start: 10-20-2021 End: 10-20-2021 Patient encounter procedure -Outpatient Breast Imaging Start: 10-10-2021 End: 10-10-2021 [facility]charged [facility] Start: 09-19-2021 End: 09-19-2021 Patient encounter procedure -Laboratory, Phy Office 3rd Flr Start: 07-25-2021 Patient encounter procedure -Ultrasound, [facility] Start: 07-14-2021 Patient encounter procedure -Laboratory, Phy Office 3rd Flr Start: 03-15-2018 End: 03-26-2018 Patient encounter [facility] Procedures Date Procedure Procedure Detail Performing Clinician [...] DTaP,Tdap,Td Vaccine (3 - Td or Tdap) [facility] Start: 09-23-[address] [facility] Start: 11-15-2024 Diabetic foot examination Diabetic Foot Exam [facility] Start: 08-13-2023 Advance Directive Discussion Advance Directive Discussion [facility] Start: 04-13-2023 Covid-19 Vaccine () Covid-19 Vaccine () [facility] Start: 04-13-2023 Influenza vaccination Influenza Vacc ine (#1) [facility] Start: 08-13-2022 ADVANCE DIRECTIVE DISCUSSION ADVANCE DIRECTIVE DISCUSSION [facility] Start: 06-13-2022 Glaucoma screening Dilated Retinal E xam [facility] Start: 06-13-2022 Hepatitis C antibody , confirmatory test DILATED RETINAL EXAM [facility] Start: 04-13-2022 Influenza vaccination INFLUENZA (#1) [facility] Start: 03-03-2022 COVID-19 VACCINE (5 - Booster for Pfizer series) COVID-19 VACCINE (5 - Booster for Pfizer series) [facility] Start: 11-11-2021 COVID-19 VACCINE (4 - Booster for Pfizer series) COVID-19 VACCINE (4 - Booster for Pfizer series) [facility] Start: 11-09-2021 3 comp foot exam completed DIABETIC FOOT EXAM [facility] Start: 09-04-[address] [facility] Start: 09-04-2021 COLORECTAL CANCER SCREENING COLORECTAL CANCER SCREENING [facility] Start: 08-13-2021 ADVANCE DIRECTIVE DISCUSSION ADVANCE DIRECTIVE DISCUSSION [facility] Start: 08-14-2020 ANNUAL PCP TEAM INGOT PASSER VIJAY DISEASE VISIT ANNUAL PCP TEAM CHRONIC DISEASE VISIT [facility] Start: 02-04-2020 Hemoglobin A1c measurement HbA1C [facility] Start: 02-04-2020 Hemoglobin A1c/Hemoglobin.total in Blood HBA1C [facility] Start: 12-27-2019 FECAL OCCULT BLOOD FECAL OCCULT BLOO D [facility] Start: 11-05-2019 Hepatitis B screening URINE ALBUMIN:CREATININE RATIO [facility] Start: 11-05-2019 Hepatitis B surface antibody level LDL CHOLESTEROL [facility] Start: 08-18-2015 PNEUMOCOCCAL: 65+ (2 - PCV) PNEUMOCOCCAL: 65+ (2 - PCV) [facility] Start: 2006 Hepatitis B Vaccine (1 of 3 - Risk 3-dose series) Hepatitis B Vaccine (1 of 3 - Risk 3-dose series) [facility] Start: 2006 RSV Vaccine (1 - 1-d ose 60+ series) RSV Vaccine (1 - 1-dose 60+ series) [facility] Start: 1996 SHINGRIX VACCINE (1 of 2) SHINGRIX VACCINE (1 of 2) [facility] Start: 1991 COLOGUARD (FIT-DNA) COLOGUARD (FIT-D NA) [facility] Start: [address] COLONOGRAPHY [facility] Start: 1991 SIGMOIDOSCOPY SIGMOIDOSCOPY [facility] Start: 1964 ANNUAL PCP TEAM INGOT PASSER VIJAY DISEASE VISIT ANNUAL PCP TEAM CHRONIC DISEASE VISIT [facility] Start: 1964 BP CONTROLLED (<130/80) BP CONTROLLE D (<130/80) [facility] XR Foot - left AP an d Lateral and oblique XR FOOT GENERAL 3V AP/LAT/OBL LEFT Radiology Routine Arthritis of foot 11/16/2023 12:41 PM EDT [facility] Work Phone: End: 12-15-2024 XR Foot - left AP and Lateral and oblique XR FOOT GENERAL 3V AP/LAT/OBL LEFT Radiology Routine Arthritis of foot 1 Occurrences starting 11/16/2023 until 12/15/2024 [facility] Work Phone: Comment on above: 1 Occurrences starti ng 11/16/2023 until 12/15/2024 [facility] Immunizations Immunization Date Immunization Notes Care Provider Dennis menon 04-20-2021 influenza virus vacc ine, unspecified formulation [employer] [employer] Work Phone: [facility] 10-02-2019 hepatitis A vaccine, adult dosage Karoline Cervantes MD Work Phone: [facility] Work Phone: 06-05-2019 influenza, high dose seasonal, preservative-free Karoline Cervantes MD Work Phone: [facility] 06-30-2017 influenza, seasonal, injectable Karoline Cervantes MD Work Phone: [facility] 08-18-2014 pneumococcal conjuga te vaccine, 13 valent Karoline Cervantes MD Work Phone: [facility] 08-18-2014 pneumococcal polysaccharide vaccine, 23 valent Karoline Cervantes MD Work Phone: [facility] 04-29-2013 influenza virus vacc ine, unspecified formulation Karoline Cervantes MD Work Phone: [facility] 05-10-2012 influenza virus vacc ine, unspecified formulation Karoline Cervantes MD Work Phone: [facility] 05-13-2009 pneumococcal polysaccharide vaccine, 23 valent Karoline Cervantes MD Work Phone: [facility] Work Phone: 05-13-2009 tetanus and diphther ia toxoids, adsorbed, preservative free, for adult use (2 Lf of tetanus toxoid and 2 Lf of diphtheria toxoid) Karoline Cervantes MD Work Phone: [facility] Work Phone: Payers Date Payer Category Payer Self-pay [id number] 2011 Medicare [id number] 2011 Medicare MEDICARE MEDICAR E A AND B [id number] 2011-Present [phone] [place] [address] Medicare [id number] 2011 Medicare MEDICARE MEDICAR E A AND B [id number] 2011-Present [phone] [place] [address] Medicare [id number] 1999 Unknown [id number] 1999 Unknown ANTHEM ANTHEM BC BS FEP PPO [id number] 1999-Present [phone] [address] [place] [address] PPO [id number] [id number] 1999 Unknown ANTHEM ANTHEM BC BS FEP PPO [id number] 1999-Present [phone] [address] [place] [address] PPO [id number] [id number] Unknown [id number] 2.16.840.1.673731.3.579.2.462 Unknown [id number] 2.16.840.1.259586.3.579.2.462 Unknown [id number] 2.16.840.1.113139.3.579.2.462 Unknown [id number] 2.16.840.1.033046.3.579.2.462 Unknown [id number] 2.16840.1.099874.3.579.2.462 Unknown [id number] 2..840.1.591938.3.579.2.462 Unknown [id number] 2.840.1.586490.3.579.2.462 Unknown [id number] 2.840.1.425764.3.579.2.462 Unknown [id number] 2.840.1.246389.3.579.2.462 Unknown [id number] 2.840.1.172826.3.579.2.462 Unknown [id number] 2.840.1.481207.3.579.2.462 Unknown [id number] 2.840.1.317323.3.579.2.462 Unknown [id number] 2.840.1.025260.3.579.2.462 Unknown [id number] .840.1.702907.3.579.2.462 Unknown [id number] .840.1.755682.3.579.2.462 Unknown [id number] 2.16.840.1.880816.3.579.2.462 Unknown [id number] 2.16.840.1.408716.3.579.2.462 Unknown [id number] 2.16.840.1.366040.3.579.2.462 Unknown [id number] 2.16840.1.085430.3.579.2.462 Unknown [id number] 2.16.840.1.289048.3.579.2.462 Unknown [id number] 2.16.840.1.822248.3.579.2.462 Unknown [id number] 2.16.840.1.207462.3.579.2.462 Unknown [id number] 2.16.840.1.261383.3.579.2.462 Unknown [id number] 2.16.840.1.770095.3.579.2.462 Unknown [id number] 2..840.1.117492.3.579.2.462 Unknown [id number] 2.840.1.125023.3.579.2.462 Unknown [id number] 2.840.1.793006.3.579.2.462 Unknown [id number] 2.840.1.626044.3.579.2.462 Unknown [id number] 2.840.1.711634.3.579.2.462 Unknown [id number] 2.840.1.591904.3.579.2.462 Unknown [id number] 2.840.1.653986.3.579.2.462 Unknown [id number] 2.840.1.456220.3.579.2.462 Unknown [id number] 2.16840.1.293190.3.579.2.462 Unknown [id number] 2.16840.1.559361.3.579.2.462 Unknown [id number] 2.16840.1.504502.3.579.2.462 Unknown [id number] 2.840.1.713811.3.579.2.462 Unknown [id number] 2.16.840.1.054501.3.579.2.462 Unknown [id number] 2.16.840.1.600009.3.579.2.462 Unknown [id number] 2.16.840.1.177626.3.579.2.462 Unknown [id number] 2.16.840.1.610986.3.579.2.462 Unknown [id number] 2.16.840.1.975611.3.579.2.462 Unknown [id number] 2.16.840.1.088522.3.579.2.462 Unknown [id number] 2.16.840.1.514901.3.579.2.462 Unknown [id number] 2.16.840.1.208175.3.579.2.462 Unknown [id number] 2.16.840.1.692301.3.579.2.462 Unknown [id number] 2.16.840.1.156912.3.579.2.462 Unknown [id number] 2.16.840.1.002476.3.579.2.462 Unknown [id number] 2.16.840.1.814625.3.579.2.462 Social History Date Type Detail Facility Start: 08-24-2020 End: 08-29-2022 Tobacco smoking status HIIS Unknown if ever smoked Start: 1945 Sex Assigned At Female C [facility] Start: 04-03-2011 [facility] Start: 08-11-2021 End: 11-16-2023 Alcohol intake Current drinker of alcohol (finding) [facility] Start: 08-18-2014 History SDOH Alcohol Comment once or twice per week [facility] Start: 04-03-2011 Tobacco use and exposure Smokeless tobacco non-user [facility] Work Phone: Start: 09-06-2022 End: 10-24-2022 History of Social function [facility] Start: 09-06-2022 End: 10-24-[address] [facility] Adult Depression Screening Assessment 4 [facility] Start: 04-09-2019 Gender identity Identifies as female gender (finding) [facility] Start: 04-09-2019 Sexual orientation Heterosexual (flaquita rizzo) [facility] Medical Equipment Procedure Code Equipment Code Equipment Origin al Text Equipment Identifier Dates 0---Lens Iol +15 .5 Ana Acrsf Iq - [id number] Start: 08-21-2013 0---Lens Iol +15 Ana Acrsf Iq 13 - [id number] Start: 09-04-2013 Comment on above: Description: acrysof iol lens Test blood sugar(s) 1-2 times daily. Dx: Type 2 DM - Controlled E11.9 Insulin: No Start: 08-21-2019 Comment on above: Test blood sugar(s) 1-2 times daily. Dx: Type 2 DM - Controlled E11.9 Insulin: No Goals Date Patient Goal Desired Activity /State Clinical Notes 09-04-2013 to 01-10-2025 Alexey Escobar RT(R) - 11/16/2023 12:10 PM Dee Montanez RN - 11/16/2023 12:10 PM Aga De Santiago - 11/16/2023 11:54 AM Dee Montanez RN - 11/16/2023 11:44 AM EDT Note Date & Type Note Facility 01-10-2025 Note [facility] 10-17-2024 Note [facility] 10-13-2024 Note [facility] 11-16-2023 Note HNO ID: [id number] Author: DEE SCHULTE RN Service: ? Author Type: Registered Nurse Type: Progress Notes Filed: 11/16/2023 12:51 Note Text: Per Dr. Garcia Aracely was provided with Gel Powerstep Inserts, size 11-12 Womens, and instructed/educated in its application, wear, and care. All questions were answered, and patient was able to demonstrate competence with the necessary skills to utilize the above equipment. Dee Schulte RN [facility] 11-16-2023 Note HNO ID: [id number] Author: ALEXEY ESCOBAR RT(R) Service: Radiology Author [...] PATIENT PRESENTS WITH AN IMPLANTABLE OR ATTACHED CARDIAC SURGEON: No RADIOLOGY DEPARTMENT: General X-ray: Exam(s) Completed: Lower Extremity X-Ray(s): Foot, Left and Wt. Bearing PERIPHERAL IV DATA: Not applicable SIGNED BY: RT Charbel(R) November 16, 2023 12:32 PM [facility] 11-16-2023 Note HNO ID: [id number] Author: AGA GARCIA, ? Service: ? Author [...] disc disease), lumbar Dr. Munson Depression Dr. Mccarty-Evangelista Diastolic dysfunction 02/19 [facility] also Essential hypertension, [...] polyp, 8 ye (more content not included)... [facility] 11-16-2023 Note HNO ID: [id number] Author: DEE SCHULTE RN Service: ? Author [...] over the last few months. YANELI- 10/24/22 [facility] 11-16-2023 History of Presen t illness Narrative [...] PATIENT PRESENTS WITH AN IMPLANTABLE OR ATTACHED CARDIAC SURGEON: No RADIOLOGY DEPARTMENT: General X-ray: Exam(s) Completed: Lower Extremity X-Ray(s): Foot, Left and Wt. Bearing PERIPHERAL IV DATA: Not applicable SIGNED BY: RT Charbel(R) November 16, 2023 12:32 PM documented in this encounter [facility] 11-16-2023 History of Presen t [...] L4 & L5 . Dr Fraser in [facility] PAST SURGICAL HISTORY OF 05/2009 gastric [...] months. YANELI- 10/24/[address] this encounter [facility] 11-16-2023 Instructions Aga Garcia - 11/16/2023 12:00 [...] (or decreased sensation in your feet) a director recreation should always cut your toenails. Be Careful [...] Go to your health care provider or director recreation to treat these conditions. Powerstep Original Full length. Can purchase at [facility] Runner and boots,shoes and more here in [place], [employer] in [place] or [place]. Also can find in [email or web address] in [facility]. Powersteps can also be purchased online, starting [...] fits well together documented in this encounter [facility] 10-24-2022 History of Presen t illness Narrative [...] 2022 9:10 AM documented in this encounter [facility] 05-17-2022 History of Presen t illness Narrative Virtual Psychiatric Visit 30 minutes with patient consent Patient Identification: WF many years from a 2 yr marriage, Retired [employer] 1998, no children. First dx Depression [facility] [id number] Moss and a therapist in [facility]. Tried Prozac (unclear response), Lexapro (worked -- switched to Cymbalta for pain). Saw [facility] Present Psychiatric Medications: Cymbalta 30 mg Wellbutrin XL 300 mg CC: medication follow up HPI: Aracely states she is doing well overall. Mood stable. Good interest and motivation. Eating and sleeping well. Overwhelmed at times when busy. Stressed with some issues at denominational which is dying and may need to combine with another yazidi. Enjoys denominational and [employer] study. Had a big family reunion recently which was busy but fun -- still has sisters staying with her. Medical health is very good -- has been able to discontinue some medications and has lost 40 lbs in past year. 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 Medication working well. [...] L4 & L5 . Dr Fraser in [place] PAST SURGICAL HISTORY OF 05/2009 gastric sleeve [...] in own home Vocational Situation: retired 1998 [facility] Support Systems: Brother, sisters, gf Leisure: volunteering, ipad, reading, TV, crafting Spiritual: Raised Scientology. Mandaeism : denies FAMILY PSYCHIATRIC HISTORY: Brother with [...] Karoline Cervantes MD documented in this encounter [facility] 11-17-2021 History of Presen t illness Narrative Virtual Psychiatric Visit 30 minutes with patient consent Patient Identification: WF many years from a 2 yr marriage, Retired [employer] 1998, no children. First dx Depression [facility] [id number] Moss and a therapist in [facility]. Tried Prozac (unclear response), Lexapro (worked [...] and is feeling better. 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 Seeing a new counselor for a couple of sessions and feels it has brought up some important issues -- loss of best friend 10 yrs ago and missing the closeness of a relationship after end of last one. Very active at denominational. Spends time with brother. Having family over [...] L4 & L5 . Dr Fraser in [place] PAST SURGICAL HISTORY OF 05/2009 gastric sleeve [...] in own home Vocational Situation: retired 1998 [employer] Support Systems: Brother, sisters, gf Leisure: volunteering, ipad, reading, TV, crafting Spiritual: Raised Scientology. Mandaeism : denies FAMILY PSYCHIATRIC HISTORY: Brother with [...] Karoline Cervantes MD documented in this encounter [facility] 09-04-2013 History of Past i llness Narrative Problem Noted Date Resolved Date Cataract, left eye 09/04/2013 09/04/2013 Other and combined forms of senile cataract 02/1208/21/2013 Depression 09/07/2014 documented as of this encounter (statuses as of 11/17/2021) [facility] History of Past illness Narrative* Problem Noted Date Resolved Date Cataract, left eye 09/04/2013 09/04/2013 Other and combined forms of senile cataract 07/3 08/21/2013 Depression 09/07/2014 documented as of this encounter (statuses as of 03/15/2022) [address]-2014 History of Past illness Narrative* Problem Noted Date Resolved Date Cataract, left eye 09/04/2013 09/04/2013 Other and combined forms of senile cataract 07/3 08/21/2013 Depression 09/07/2014 documented as of this encounter (statuses as of 03/20/2022) [address] History of Past illness Narrative* Problem Noted Date Resolved Date Cataract, left eye 09/04/2013 09/04/2013 Other and combined forms of senile cataract 07/3 08/21/2013 Depression 09/07/2014 documented as of this encounter (statuses as of 05/17/2022) [address] History of Past illness Narrative* Problem Noted Date Resolved Date Cataract, left eye 09/04/2013 09/04/2013 Other and combined forms of senile cataract 07/3 08/21/2013 Depression 09/07/2014 documented as of this encounter (statuses as of 10/12/2022) [address] History of Past illness Narrative* Problem Noted Date Diagnosed Date Resolved Date Cataract, left eye 09/04/2013 4 Other and combined forms of senile cataract 03/11/2013 08/21/2013 Depression 09/07/2014 documented as of this encounter (statuses as of 06/16/2023) [address] History of Past illness Narrative* Problem Noted Date Diagnosed Date Resolved Date Cataract, left eye 09/04/2013 4 Other and combined forms of senile cataract 03/11/2013 08/21/2013 Depression 09/07/2014 documented as of this encounter (statuses as of 11/17/2023) [address] History of Past illness Narrative* Problem Noted Date Diagnosed Date Resolved Date Cataract, left eye 09/04/2013 4 Other and combined forms of senile cataract 03/11/2013 08/21/2013 Depression 09/07/2014 documented as of this encounter (statuses as of 11/16/2023) [facility] noteNo assessment information availableWMer[facility] Work Phone: evaluation note* Diagnosis Recurrent major depressive disorder, in partial remission (HCC)- Primary documented in this encounter [facility] note* Diagnosis Recurrent major depressive disorder, in partial remission (HCC)- Primary documented in this encounter [facility] note* Diagnosis Onset Date Resolution Status Cyst of left breast acute Work Phone: evaluation note* Diagnosis Foot pain, bilateral Pain in limb documented in this encounter [facility] note* Diagnosis Arthritis of foot Unspecified arthropathy, ankle and foot documented in this encounter [facility] note* Diagnosis Other diabetic neurological complication associated with type 2 diabetes mellitus (HCC)- Primary Arthritis of foot Unspecified arthropathy, ankle and foot Callus of foot Corns and callosities documented in this encounter [facility] for referral (narrative)* Diagnostic Procedure Only (Routine) - Closed Specialty Diagnoses / Procedures Referred By Contac t Referred To Contact XR IMAGING Diagnoses Foot pain, bilateral Procedures XR FOOT GENERAL 3V AP/LAT/OBL BILATERAL RADEX FOOT COMPLETE MINIMUM 3 VIEWS Aga [place] [address] [place] [address] Referral ID Status Reason Start Date Expiration Date V isits Requested Visits Authorized [id number] Closed Auto-Generate d Referral 10/20/2022 11/19/2023 1 1 [facility] for referral (narrative)* Diagnostic Procedure Only (Routine) - Closed Specialty Diagnoses / Procedures Referred By Contac t Referred To Contact XR IMAGING Diagnoses Arthritis of foot Procedures XR FOOT GENERAL 3V AP/LAT/OBL LEFT RADEX FOOT COMPLETE MINIMUM 3 VIEWS Aga Garcia [address] [place] [address] [place] [address] Referral ID Status Reason Start Date Expiration Date V isits Requested Visits Authorized [id number] Closed Auto-Generate d Referral 11/16/2023 12/15/2024 1 1 [facility] for visit Narrative* Diagnostic Procedure Only (Routine) - Closed Specialty Diagnoses / Procedures Referred By Contac t Referred To Contact XR IMAGING Diagnoses Foot pain, bilateral Procedures XR FOOT GENERAL 3V AP/LAT/OBL BILATERAL RADEX FOOT COMPLETE MINIMUM 3 VIEWS Aga Garcia [address] [place] [address] Xr [place] [id number] Referral ID Status Reason Start Date Expiration Date V isits Requested Visits Authorized [id number] Closed Auto-Generate d Referral 10/20/2022 11/19/2023 1 1 [facility] for visit Narrative* Diagnostic Procedure Only (Routine) - Closed Specialty Diagnoses / Procedures Referred By Contac t Referred To Contact XR IMAGING Diagnoses Arthritis of foot Procedures XR FOOT GENERAL 3V AP/LAT/OBL LEFT RADEX FOOT COMPLETE MINIMUM 3 VIEWS Aga Garcia [address] [place] [address] [place] [address] Referral ID Status Reason Start Date Expiration Date V isits Requested Visits Authorized [id number] Closed Auto-Generate d Referral 11/16/2023 12/15/[address] [facility] Summary Purpose Family History No Family History Records Found Relationship Condition Age at Onset Recorded Date/T tracee mother Malignant neoplasm Unknown brother Cerebrovascular accident (CVA) Unknown Advance Directives No Advanced Directives Records Found Advance Directive Response Recorded Date/ Time Living Will No October 22, 2018 1:26pm Power of Asp Developer No October 22 1:26pm Advance Directive Response Recorded Date/ Time Living Will No October 22, 2018 12:26pm Power of Asp Developer No October 22 12:26pm Chief Complaint and [...] section and content) DATE CREATED AUTHOR 03/27/2018 [facility] [place] DATE CREATED AUTHOR AUTHOR'S ORGANIZ ATION 02/22/2019 [facility] ([place]) DATE CREATED AUTHOR AUTHOR'S ORGANIZ ATION 11/22/2023 [facility] DATE CREATED AUTHOR AUTHOR'S ORGANIZ ATION 03/07/2025 [facility] Source Comments (unrecognize d section and content) In the event this informatio n is protected by the Federal Confidentiality of Alcohol and Drug Abuse Patient Records regulations: The Federal rules restrict any use of the information to criminally investigate or prosecute any alcohol or drug abuse patient.[facility] the event this information is protected by the Federal Confidentiality of Alcohol and Drug Abuse Patient Records regulations: The Federal rules restrict any use of the information to criminally investigate or prosecute any alcohol or drug abuse patient.[facility] the event this information is protected by the Federal Confidentiality of Alcohol and Drug Abuse Patient Records regulations: The Federal rules restrict any use of the information to criminally investigate or prosecute any alcohol or drug abuse patient.[facility] the event this information is protected by the Federal Confidentiality of Alcohol and Drug Abuse Patient Records regulations: The Federal rules restrict any use of the information to criminally investigate or prosecute any alcohol or drug abuse patient.[facility] the event this information is protected by the Federal Confidentiality of Alcohol and Drug Abuse Patient Records regulations: The Federal rules restrict any use of the information to criminally investigate or prosecute any alcohol or drug abuse patient.[facility] the event this information is protected by the Federal Confidentiality of Alcohol and Drug Abuse Patient Records regulations: The Federal rules restrict any use of the information to criminally investigate or prosecute any alcohol or drug abuse patient.[facility] the event this information is protected by the Federal Confidentiality of Alcohol and Drug Abuse Patient Records regulations: The Federal rules restrict any use of the information to criminally investigate or prosecute any alcohol or drug abuse patient.[facility] Reason for Visit (unrecogniz ed section and [...] BE BASED ON THE PRIMARY CLINICAL RECORDS. [facility] [employer] [facility]. provides no warranty or guarantee of the accuracy or completeness of information in this document.
--- NOTE | 2025-03-07 17:50 | HP.PCM_ITS ---
HPI - General General Date of Admission: 03/07/25 Date of Service: 03/09/25 Chief Complaint: Here for rehabilitation. HPI Narrative YUNG HERNANDEZ, is a 79 Female who presents with followin03/05/2025 [facility] ED fall. Fall x 2, walks with walker, fell in bathroom, hit head against toilet. No loss of consciousness, able to get up. [place] shaky, fell again, shaky, unsteady. NS [address] brain negative, CT cervical spine negative, CT lumbar spine mid sacral fracture. X-rays bilateral hips, pelvis negative. 03/06/2025 Admit [facility]. PT/OT/CM for falls, debility. 03/07/2025 Admit to TCU with debility, here for rehabilitation, strengthening, prior to discharge home with brother. Of note, outpatient SPEP showed biclonal gammopathy, recommend evaluation for multiple myeloma. [facility] Medical History (Updated 03/07/25 @ 18:[address] Sumit Whipple MD) Parkinsonian features GERD (gastroesophageal reflux disease) Hypothyroidism CKD (chronic kidney disease), stage III Chronic anemia HLD (hyperlipidemia) Anxiety and depression Orthostatic hypotension Sleep apnea Diabetes mellitus Home Medications ?Medication ?Instructions ?Recorded ?Last Taken ?Type pantoprazole 40 mg tablet,delayed 40 mg PO DAILY GERD 10/22/18 03/05/25 History release levothyroxine 100 mcg tablet 100 mcg PO QDAY thyroid 0 12/10/23 03/05/25 History rosuvastatin 40 mg tablet 40 mg PO QDAY HLD 12/10/23 0 03/05/25 History ascorbic acid (vitamin C) 500 mg 500 mg PO QDAY vitami n 05/21/24 03/05/25 History tablet calcium 600 mg (as carbonate)-vit 1 tab PO QAM supplem ent 05/21/24 03/05/25 History D3 20 mcg (800 unit) chewable tablet (Caltrate plus D) d-mannose 500 mg capsule 500 mg PO .QD spasms 4 03/05/25 History Held on 03/07/25. Instructions: Dr. Whipple requested hold while admitted docusate sodium 100 mg capsule 100 mg PO BID stool sof tner 05/21/24 03/05/25 History hydroxyzine HCl 50 mg tablet 50 mg PO Q6H PRN anxiety 05/21/24 03/06/25 History magnesium oxide 500 mg capsule 500 mg PO QDAY SUPPLEME NT 05/21/24 03/05/25 History metformin 1,000 mg tablet 1,000 mg PO BID DM 05/21/24 03/05/25 History acetaminophen 500 mg tablet 500 mg PO Q8H PRN PAIN 03/05/25 History fludrocortisone 0.1 mg tablet 0.1 mg PO BREAKFAST aide #30 tabs 10/17/24 Unknown Rx diphenhydramine HCl 25 mg capsule 25 mg PO BID PRN PRN itching #20 11/14/24 Unknown Rx (Benadryl) caps bupropion HCl 300 mg 24 hr tablet, 300 mg PO QDAY depr ession #90 tabs 12/03/24 03/05/25 Rx extended release carbidopa 25 mg-levodopa 100 mg 1 tab PO TID Parkinson s 12/03/24 03/05/25 History tablet bupropion HCl 150 mg 24 hr tablet, 150 mg PO QAM mood #90 tabs 12/26/24 03/05/25 Rx extended release buspirone 5 mg tablet 5 mg PO BID mood #180 tabs 0 12/26/24 03/05/25 Rx duloxetine 60 mg capsule,delayed 60 mg PO DAILY mood 0 03/05/25 03/05/25 History release sertraline 50 mg tablet 25 mg PO QDAY mood 03/05/25 03/05/25 History nystatin 100,000 unit/gram topical 1 applic topical BI D Skin #0 grams 03/07/25 Unknown Rx powder peg [id number] 1 2 drp EACH EYE Q1H PRN DRY EYES #0 03/07/25 Unknown Rx %-0.2 %-0.2 % eye drops mL (Artificial Tears ([id number])) pregabalin 75 mg capsule 75 mg PO TID Nerve pain 3 da ys #9 03/07/25 03/05/25 Rx caps Allergy/AdvReac Type Severity Reaction Status Date / Time Opioids - Morphine Analogues Allergy Rash Verified 03/05/25 22:37 adhesive tape AdvReac Unknown Rash Verified 03/05/25 22:37 tramadol (From Ultram) AdvReac Itching Verified 03/05/25 22:37 Family History Mother Cancer cervical Brother CVA (cerebral vascular accident) Father CVA (cerebral vascular accident) Sister , at the age of 65 Liver cancer Surgical History Cyst of left breast Status post hip surgery H/O knee surgery H/O wrist surgery Social History household members: family Smoking Status: Never smoker alcohol intake: current alcohol intake frequency: holidays/special occasions only Alcohol type: wine substance use type: does not use ROS Constitutional Constitutional: Reports weakness; Denies chills, fever(s) or weight gain ENT HEENT: Denies headache(s), nasal congestion or nasal discharge Cardiovascular Cardiovascular: Denies chest pain or palpitations Respiratory/Chest Respiratory/Chest: Denies cough, excessive phlegm production or shortness of breath with exertion Gastrointestinal Gastrointestinal: Denies abdominal pain, nausea or vomiting Genitourinary Genitourinary: Denies dysuria Musculoskeletal Musculoskeletal: Denies joint pain or joint swelling Integumentary Integumentary: Denies rash or wounds Neurologic Neurologic: Denies focal weakness, numbness or tingling Psychiatric Psychiatric: Denies anxiety, auditory hallucinations, depression, homicidal ideation or suicidal ideation Vital Signs Vital Signs Vital Signs: 03/07/25 16:23 Temperature 97.0 F L Temperature Source Oral Pulse Rate 70 Respiratory Rate 18 Blood Pressure 156/71 H Blood Pressure Mean 99 Blood Pressure Source Monitor Blood Pressure Position Sitting Blood Pressure Location Right Arm Pulse Ox 94 Oxygen Delivery Method Room Air Physical Exam Const alert General Appearance: cooperative HEENT normocephalic Eyes PERRL and EOMs intact bilaterally Neck supple, no JVD and no carotid bruits Resp normal respiratory effort, normal air movement and clear to auscultation bilaterally Cardio regular rate and regular rhythm GI normal to inspection, nondistended, normoactive bowel sounds, non-tender and non-distended Extremity normal capillary refill General Extremity: Negative for edema Skin no rashes or lesions noted General Skin Exam: no breakdown Psych affect normal Appearance: appropriate Results Lab / Micro Data 03/08/25 06:05 03/08/25 06:05 Assessment & Plan Assessment/Plan (1) Debility: (2) Multiple falls: (3) Sacral fracture: (4) Biclonal gammopathy: (5) Anxiety: (6) GERD (gastroesophageal reflux disease): (7) Hypothyroidism: (8) HLD (hyperlipidemia): (9) Hyperglycemia due to type 2 diabetes mellitus: (10) Parkinson disease: (11) Orthostatic hypotension: (12) Depression: QUALIFIERS: Depression Type: unspecified Qualified Code(s): F32.A - Depression, unspecified (13) Diabetic polyneuropathy: PLAN: Plan 79 year old female with below past medical history hospitalized for multiple falls, sacral fracture, admitted to TCU with debility, here for rehabilitation, strengthening, prior to discharge home with family. * Debility - PT/OT. * Pain - Tylenol 1000mg q6 prn pain (1-10). * Bowel - senna/colace 1 tablet bid. * Adult immunization - Administer pneumonia vaccine, covid vaccine, flu vaccine as appropriate. * DVT prophylaxis - Lovenox 40mg sc daily. * Biclonal gammopathy - Schedule appt with [facility], order UPEP. * Parkinson Disease - Sinemet 25/100mg tid. * Anxiety - Hydroxyzine 50mg q6 prn. * Hypothyroidism - Levothyroxine 100mcg daily. * Diabetes Mellitus II - Metformin 1000mg bidcm. * Diabetic polyneuropathy - Lyrica 75mg tid. * Tinea Corporis - Nystatin powder topical bid. * GERD - Pantoprazole 40mg daily. * Dry Eyes - Artificial tears 2gtt ou q1h prn. The following psychotropic medication was present on admission: Bupropion 450mg qam. Psychotropic medication therapy is indicated for a diagnosis of: Depression Based on my clinical evaluation, continuation of the medication is necessary at this time. Gradual dose reduction plan (select one): ____ GDR will be attempted. Will monitor patient symptoms and behaviors in response to GDR. __x__ GRD contraindicated. Reason contraindicated: stable chronic custodial use. The following psychotropic medication was present on admission: Buspar 5mg bid. Psychotropic medication therapy is indicated for a diagnosis of: Anxiety Based on my clinical evaluation, continuation of the medication is necessary at this time. Gradual dose reduction plan (select one): ____ GDR will be attempted. Will monitor patient symptoms and behaviors in response to GDR. __x__ GRD contraindicated. Reason contraindicated: stable chronic custodial use. The following psychotropic medication was present on admission: Duloxetine 60mg daily. Psychotropic medication therapy is indicated for a diagnosis of: Depression. Based on my clinical evaluation, continuation of the medication is necessary at this time. Gradual dose reduction plan (select one): ____ GDR will be attempted. Will monitor patient symptoms and behaviors in response to GDR. __x__ GRD contraindicated. Reason contraindicated: stable chronic custodial use.
[2025-03-07 18:34] VITALS: BMI 28.3
--- NOTE | 2025-03-07 18:53 | NURSING ---
Code status discussed with pt and sister Mell Martin. Pt requesting to continue DNRCCA no intubation status.
[2025-03-07] MEDS: Senna/Docusate Sodium 1 Tablet PO (21:29)
[2025-03-07 21:32] VITALS: PULSE 65; RESP 17
[2025-03-08 06:31] LABS: Hematocrit 35.0 % (37-47); Hemoglobin 11.1 g/dL (12.0-15.0); Immature Granulocytes Count 0.010 X10^3/uL (0.0-0.0); Mean Corp Hgb Conc 31.7 g/dL (32-36); Mean Corpuscular Volume 84.5 fL (81-99); Mean Platelet Vol. 9.5 fl (6.2-12.0); NRBC Flagged by Analyzer 0 % (0-5); Platelet Count 307 K/mm3 (150-450); RBC Distribution Width CV 15.1 % (11.6-14.6); RBC Distribution Width SD 46.2 fl (35.1-43.9); Red Blood Count 4.14 M/mm3 (4.2-5.4); White Blood Count 6.3 K/mm3 (4.4-11.0)
[2025-03-08 07:18] LABS: Anion Gap 12 (5-15); BUN 10 mg/dL (4-19); BUN/Creat Ratio 11.4 RATIO (10-20); Calcium,Total 9.3 mg/dL (7.6-11.0); Carbon Dioxide 24.9 mmol/L (21.0-32.0); Chloride 104 mmol/L (98-108); Estimated Creatinine Clearance 62.85 ml/min (50-250); Glucose 172 mg/dL (70-99); Potassium 4.1 mmol/L (3.3-5.1)
[2025-03-08 09:34] VITALS: BP 100/75; PULSE 68; RESP 18; TEMP 36.2; O2SAT 97
[2025-03-08] MEDS: buPROPion (XL) 300 MG TABLET.XL PO (09:38)
[2025-03-08] MEDS: buPROPion (XL) 150 MG TABLET.XL PO (09:39)
[2025-03-08] MEDS: Senna/Docusate Sodium 1 Tablet PO ×2 (09:41→20:47)
[2025-03-08] MEDS: Tuberculin,Purif.prot.deriv. 50 TU/ML Vial 0.1 ML ID (12:05)
[2025-03-08] MEDS: hydrOXYzine PAM 25 MG Capsule 50 MG PO (16:03)
[2025-03-08] MEDS: Glucerna Shake 120 ML LIQUID PO (18:08)
[2025-03-08 20:55] VITALS: BP 143/69; PULSE 68; RESP 17; TEMP 36.4; O2SAT 94
[2025-03-08 21:07] VITALS: PULSE 68; RESP 17
--- NOTE | 2025-03-09 01:24 | PCM.PN.DRR ---
Documented by User: Renan Sullivan 03/09/25 01:44 TCU RX Drug Regimen Review Subjective/Objective Subjective/Objective Subjective: TCU admission note. 79 year old female with below past medical history hospitalized for multiple falls, sacral fracture, admitted to TCU with debility, here for rehabilitation, strengthening, prior to discharge home with family. Objective: Allergies Opioids - Morphine Analogues Allergy (Verified 03/05/25 22:37) Rash adhesive tape Adverse Reaction (Unknown, Verified 03/05/25 22:37) Rash tramadol (From [facility]) Adverse Reaction (Verified 03/05/25 22:37) Itching Current Medications Generic Name Dose Route Start Last Admin Trade Name Freq PRN Reason Stop Dose Admin Acetaminophen 1,000 mg 03/07/25 17:47 03/08/25 09:41 Acetaminophen 500 Mg Tablet PO 1,000 mg Q6H PRN PRN Administration Pain Score 1-10 Bupropion HCl 300 mg 03/08/25 10:00 03/08/25 09:38 Bupropion (Xl) 300 Mg Tablet.Xl PO 300 mg DAILY TOM Administration Bupropion HCl 150 mg 03/08/25 10:00 03/08/25 09:39 Bupropion (Xl) 150 Mg Tablet.Xl PO 150 mg QAM TOM Administration Buspirone HCl 5 mg 03/07/25 22:00 03/08/25 20:46 Buspirone 5 Mg Tablet PO 5 mg BID TOM Administration Carbidopa/Levodopa 1 tablet 03/07/25 22:00 03/08/25 20:47 Carbidopa/Levodopa 25/100 Tablet PO 1 tablet TID TOM Administration Duloxetine HCl 60 mg 03/08/25 10:00 03/08/25 09:37 Duloxetine Hcl 60 Mg Capsule PO 60 mg DAILY TOM Administration Enoxaparin Sodium 40 mg 03/08/25 06:00 03/08/25 06:50 Enoxaparin 40 Mg/0.4 Ml Syringe SC 40 mg DAILY@0600 TOM Administration Glycerin/Hypromellose/Polyethylene 2 drp 03/07/25 17:00 Glycerin/Hypromellose/[id number] 15 Ml Bottle EACH EYE Q1H PRN DRY EYES Hydroxyzine Pamoate 50 mg 03/07/25 17:39 03/08/25 16:03 Hydroxyzine Isabela 25 Mg Capsule PO 50 mg Q6H PRN PRN Administration anxiety Levothyroxine Sodium 100 mcg 03/08/25 06:00 03/08/25 06:45 Levothyroxine 100 Mcg Tablet PO 100 mcg DAILY@0600 TOM Administration Metformin HCl 1,000 mg 03/08/25 08:00 03/08/25 18:08 Metformin Hcl 1,000 Mg Tablet PO 1,000 mg BIDCM TOM Administration Nutritional Formula (Lactose Free) 120 ml 03/08/25 17:45 03/08/25 18:08 Glucerna Shake 120 Ml Liquid PO 120 ml TIDCM TOM Administration Nystatin 1 applic 03/07/25 22:00 03/08/25 20:47 Nystatin Powder 15gm Bottle TOPICAL 1 applic 0600,2200 TOM Administration Protocol Pantoprazole Sodium 40 mg 03/08/25 10:00 03/08/25 09:37 Pantoprazole Sodium 40 Mg Tablet PO 40 mg DAILY TOM Administration Pregabalin 75 mg 03/07/25 22:00 03/08/25 21:02 Pregabalin 75 Mg Capsule PO 75 mg TID TOM Administration Senna/Docusate Sodium 1 tablet 03/07/25 22:00 03/08/25 20:47 Senna/Docusate Sodium 1 Tablet PO 1 tablet BID TOM Administration Tuberculin PPD 0.1 ml 03/15/25 10:00 Tuberculin,Purif.Prot.Deriv. 50 Tu/Ml Vial ID 03/15/25 10:01 X1 ONE Problem List Diabetic polyneuropathy (Acute) Parkinson disease (Acute) HLD (hyperlipidemia) (Acute) Hypothyroidism (Acute) GERD (gastroesophageal reflux disease) (Acute) Biclonal gammopathy (Acute) Multiple falls (Acute) Debility (Acute) Sacral fracture (Acute) Orthostatic hypotension (Acute) Anxiety (Acute) Depression (Acute) Vital Signs Temp Pulse Resp BP Pulse Ox O2 Del Method O2 Flow Rate 97.6 F L 68 17 143/69 H 94 Room Air 94 03/08/25 20:55 03/08/25 21:07 03/08/25 21:07 03/08/25 20:55 03/08/25 20:55 03/08/25 21:07 03/08/25 21:07 Oxygen Flow Rate (L/min) 94 Oxygen Delivery Method Room Air Weight: 84.459 kg Body Mass Index (BMI) 28.3 Sodium 141 mmol/L (133-145) 03/08/25 06:05 Potassium 4.1 mmol/L (3.3-5.1) 03/08/25 06:05 Chloride 104 mmol/L (98-108) 03/08/25 06:05 Carbon Dioxide 24.9 mmol/L (21.0-32.0) 03/08/25 06:05 Anion Gap 12 (5-15) 03/08/25 06:05 BUN 10 mg/dL (4-19) 03/08/25 06:05 Creatinine 0.84 mg/dL (0.70-1.20) 03/08/25 06:05 Est GFR (MDRD) Non-Af 71 (>60) 03/08/25 06:05 BUN/Creatinine Ratio 11.4 RATIO (10-20) 03/08/25 06:05 Glucose 172 mg/dL (70-99) H 03/08/25 06:05 Assessment/Plan: 1. Pain: acetaminophen 1000 mg PO Q6H PRN pain (1-10). The patient has required 2 doses of PRN acetaminophen so far this admission. Please continue to monitor pain levels, PRN medication usage, and LFTs (AST/ALT = 19/20 U/L on 03/06/25). 2. Bowel: senna/docusate 1 tablet PO BID. Please continue to monitor for bowel movements (last was documented on 03/06/25), for diarrhea and constipation. 3. DVT prophylaxis: enoxaparin 40 mg SC daily. Please continue to monitor for s/s of DVT such as pain/erythema/swelling in an extremity, renal function (serum creatinine = 0.84 mg/dL with creatinine clearance ~ 63 mL/min on 03/08/25), for bleeding/excessive bruising, hemoglobin levels (Hgb = 11.1 g/dL) and platelet counts (Plt = 307 K/mm3 on 03/08/25). 4. Parkinson disease: carbidopa/levodopa 1 tablet PO TID. Please continue to monitor for s/s of Parkinson disease, and for abnormal movements. 5. Hypothyroidism: levothyroxine 100 mcg PO daily. Please continue to monitor thyroid hormone levels (TSH = 5.620 uIU/mL on 01/07/25), and for s/s of hypo/hyperthyroidism. 6. Diabetes Mellitus: metformin 1000 mg PO BID with meals. Please continue to monitor blood glucose levels (recent range = 97-229 mg/dL), renal function (serum creatinine = 0.84 mg/dL with creatinine clearance ~ 63 mL/min, and GFR = 71 mL/min on 03/08/25), hemoglobin A1C levels (A1C = 9.0% on 01/13/25), and for GI distress with administration. 7. Diabetic polyneuropathy: pregabalin 75 mg Po TID. Please continue to monitor for nerve pain, renal function (serum creatinine = 0.84 mg/dL with creatinine clearance ~ 63 mL/min on 03/08/25), and for dizziness/drowsiness, as well as lower extremity swelling. 8. GERD: pantoprazole 40 mg PO daily. Please continue to monitor for s/s of GERD, for diarrhea that could indicate clostridium difficile infection, and for s/s of bone resorption such as fractures. 9. Tinea corporis: nystatin powder 1 application topically BID. Please continue to monitor for resolution of tinea corporis. 10. Dry eyes: artificial tears 2 drops in each eye PRN dry eyes. The patient has not required any PRN doses of artificial tears so far this admission. Please continue to monitor for dry eyes and PRN medication usage. 11. Nutrition: glucerna 120 mL PO TID with meals. Please continue to monitor overall nutritional status. Assessment/Plan for indications treated with psychotropic medications: 1. Depression: bupropion XL 300 mg PO daily, bupropion XL 150 mg PO QHS, duloxetine 60 mg PO daily. Monitor for anxiety, agitation and insomnia, seizure activity, nausea, appetite and body weight, headache, suicidal thoughts or behaviors (Boxed Warning). Monitor blood pressure and HR. BP range since admission = 100-156/57-97 mmHg; HR range since admission = 64-72 beats/min Medication is renally eliminated, monitor renal function periodically. Scr = 0.84 mg/dL Monitor for diarrhea, nausea, appetite/weight loss, anxiety or drowsiness, suicidal thoughts or behaviors (Boxed Warning), symptoms of bleeding, symptoms of serotonin syndrome (including agitation, confusion, hyperreflexia, rigidity/myoclonus, tremor, tachycardia, tachypnea), sodium levels (last Na = 141 mmol/L). Monitor for orthostatic hypotension, including postural dizziness, syncope or falls. Check orthostatic vital signs if suspicion of orthostasis. Montor for hepatotoxicity (abdominal pain, nausea, jaundice, dark urine, AST/ALT as clinically indicated). AST/ALT = 19/20 U/L Monitor for efficacy including resident symptoms, behaviors and indications of distress. Monitor for tolerability including mental status, cognition, excessive sleepiness, withdrawal or decreased participation in activities and decline in physical functioning. Maximize use of nonpharmacologic/behavioral interventions to facilitate dose reduction or discontinuation as appropriate. Please evaluate the appropriateness of GDR unless contraindicated. If appropriate, GDR should be attempted in 2 separate quarters within the first year of use or admission to TCU. If GDR attempted, monitor resident symptoms/behaviors. 2. Anxiety: buspirone 5 mg PO BID, hydroxyzine pamoate 50 mg PO Q6H PRN anxiety. Monitor for efficacy including resident symptoms, behaviors and indications of distress. Monitor for anxiety, and dizziness. Monitor for tolerability including mental status, cognition, excessive sleepiness, withdrawal or decreased participation in activities and decline in physical functioning. Maximize use of nonpharmacologic/behavioral interventions to facilitate dose reduction or discontinuation as appropriate. Please evaluate the appropriateness of GDR unless contraindicated. If appropriate, GDR should be attempted in 2 separate quarters within the first year of use or admission to TCU. If GDR attempted, monitor resident symptoms/behaviors. Medical chart and medication regimen reviewed. The following medication irregularities or issues were identified: NA Date Date of Note: 03/09/25 Documented by User: Dr. Sumit Whipple MD 03/09/25 07:16 TCU RX Drug Regimen Review Provider Comments Provider responsibility Provider Comments to Recommendations by Pharmacy Agree
[2025-03-09] MEDS: Glucerna Shake 120 ML LIQUID PO ×3 (09:07→18:07)
[2025-03-09] MEDS: buPROPion (XL) 150 MG TABLET.XL PO (09:08)
[2025-03-09] MEDS: buPROPion (XL) 300 MG TABLET.XL PO (09:08)
[2025-03-09] MEDS: Senna/Docusate Sodium 1 Tablet PO ×2 (09:09→20:59)
[2025-03-09 09:18] VITALS: BP 135/47; PULSE 78; RESP 16; TEMP 36.3; O2SAT 95
--- NOTE | 2025-03-09 10:40 | CASEMGMT ---
Social Work SW met with patient to complete initial assessment. Introduced self and role. Verified contacts and code status as DNR-CCA, no intubation. Educated to Medicare benefit and copay coverage. Pt's goal is to return home with brother. SW will continue to follow for DC planning. Radha Jackson STOVE POLISHER SENIOR DIRECTOR INSIGHT
--- NOTE | 2025-03-09 12:38 | NURSING ---
Teacher Education Instructor Note; Activity Asset: Lisa Jessica is independent in her choice of daily activities. She has her tablet she plays word games, sudoku, puzzles and movies on. Her smartphone she uses [employer] for phone calls or texting. Aracely welcomes visits from the aircraft electronics technical officer and therapy dog along w/her family. Staff will encourage social activities, remind her of weekly activities and respect her right to say no.
[2025-03-09] MEDS: hydrOXYzine PAM 25 MG Capsule 50 MG PO (16:20)
--- NOTE | 2025-03-09 17:10 | NURSING ---
Addendum entered by Cheryl Philip 03/09/25 17:55: Dr. Pat office called back and said soonest appt was 03/25/[address] Kendrick and they set the appt for then. Patient made aware. Original Note: Called Dr. Pat office to set up appt. Patient's information given to office and they will call back 03/10 to set up appt.
[2025-03-09] MEDS: COVID VAC 24-25 (12UP)(MODERNA)/PF 50 MCG/0.5 ML SYRINGE IM (18:08)
[2025-03-10 06:00] VITALS: BMI 28.0
[2025-03-10 08:23] VITALS: BP 99/65; PULSE 72; RESP 18; TEMP 37.1; O2SAT 97
[2025-03-10] MEDS: buPROPion (XL) 150 MG TABLET.XL PO (08:26)
[2025-03-10] MEDS: Senna/Docusate Sodium 1 Tablet PO ×2 (08:27→22:11)
[2025-03-10] MEDS: buPROPion (XL) 300 MG TABLET.XL PO (08:27)
[2025-03-10] MEDS: Glucerna Shake 120 ML LIQUID PO ×2 (11:47→17:28)
--- NOTE | 2025-03-10 15:16 | CHAPLAIN ---
Type of Pastoral Visit _x__ Initial Visit ___ Follow-up Visit ___ On-call Visit ___ General Patient Visit ___ Spiritual Assessment ___ Family Conference ___ Bereavement ___ Rapid Response ___ Code Blue ___ Other (describe below) Pastoral Care Referral From _x__ Patient ___ Family ___ Nurse ___ Physician ___ Certified [place]ell Administrator ___ Stock Trader ___ Other (describe below) Sacrament/Intervention _x__ Active listening ___ Anointing ___ Anabaptist ___ Bereavement ___ Communion ___ Malena exploration ___ _x__ Life review _x__ Prayer ___ Reconciliation ___ Sacrament of Sick _x__ Supportive presence ___ Wedding ___ Other (describe below) Pastoral Comments patient is talkative and expresses her frustrations over last few months and multiple falls that are unexplained and worrisome; pt also speaks of news from the doctor today that she might have bone cancer; pt is also to be tested soon for Parkinson's; pt is not sure about her future but is given comfort, affirmation of feelings, and supportive words to help her focus on the possibilities and hopeful results; pt is given time to express her feelings and to remind her of the blessings that she had just spoken of earlier in the visit; pt relies on malena and family for support; pt is welcoming of time to talk and of prayer given
[2025-03-11 04:15] VITALS: PULSE 64; RESP 16; O2SAT 96
[2025-03-11 08:29] VITALS: BP 128/66; PULSE 71; RESP 17; TEMP 36.3; O2SAT 97
[2025-03-11] MEDS: Glucerna Shake 120 ML LIQUID PO ×3 (08:30→17:33)
[2025-03-11] MEDS: buPROPion (XL) 150 MG TABLET.XL PO (08:32)
[2025-03-11] MEDS: Senna/Docusate Sodium 1 Tablet PO ×2 (08:32→21:45)
[2025-03-11] MEDS: buPROPion (XL) 300 MG TABLET.XL PO (08:32)
--- NOTE | 2025-03-11 09:16 | CASEMGMT ---
Social Work IDT met with patient, brother and sister for care plan meeting. Discussed patient's progress in PT/OT/ST/SN/RDN. Educated to Medicare benefit. Provided pt/family with written communication of insurance process and copay coverage during stay. Pt admitted on day 45/100 of Medicare benefit. Encouraged to contact secondary insurance for knowledge on copay coverage. Pt lives with brother and the plan is to return. BOTTLE GAUGER recommending brother maintain caring for meds/finances, reasoning, judgement, memory. SW will continue to follow for DC planning and support. Radha Jackson RADIATION ONCOLOGIST OPERATIONS SYSTEMS SPECIALIST
[2025-03-11 15:08] LABS: Alpha-2-Globulins, Ur 15.1 % (.); M-Spike, Ur % Not Observed % (Not Observed); Protein, 24Ur 187 mg/24 hr (30-150); Total Protein, Ur 5.5 mg/dL (Not Estab.)
--- NOTE | 2025-03-11 21:57 | NURSING ---
Pt observed scratching at skin, pt states I just tore open an old people spot. Scant amount of sanguinous drainage observed top open area on left upper extremity distal to elbow. Pt encouraged not to scratch at skin in an effort to promote skin integrity. Dry sterile dressing applied per order. Pt denies any further needs at this time. Call light and personal belongings within reach. Will continue to monitor.
[2025-03-12 06:12] VITALS: PULSE 61; RESP 16; O2SAT 96
[2025-03-12 08:21] VITALS: BP 111/52; PULSE 76; RESP 18; TEMP 36.6; O2SAT 98
[2025-03-12] MEDS: Glucerna Shake 120 ML LIQUID PO ×3 (08:22→17:28)
[2025-03-12] MEDS: buPROPion (XL) 150 MG TABLET.XL PO (08:24)
[2025-03-12] MEDS: buPROPion (XL) 300 MG TABLET.XL PO (08:24)
[2025-03-12] MEDS: Senna/Docusate Sodium 1 Tablet PO ×2 (08:24→21:23)
[2025-03-12 10:00] VITALS: BP 125/63; PULSE 70; RESP 16; TEMP 36.6; O2SAT 93
[2025-03-12 14:00] VITALS: BP 99/57
--- NOTE | 2025-03-12 14:39 | NURSING ---
pt had an episode with therapy where she felt flushed and clammy and sick to stomach, objects near her appeared as if they were moving but they were not, vitals obtained while pt sitting in wheelchair,. BP 99/57 HR 81 SPO2 98, recheck BP was 117/60, Blood glucose was 158. pt assisted to laying position in bed, tolerated well.
--- NOTE | 2025-03-12 15:37 | CASEMGMT ---
Social Work SW completed BIMS () and PHQ-9 (11/06) for MDS assessment. Radha Jackson RN MDS COORDINATOR WINDOWS CONSULTANT
[2025-03-13 05:47] LABS: Hematocrit 36.2 % (37-47); Hemoglobin 11.7 g/dL (12.0-15.0); Immature Granulocytes Count 0.020 X10^3/uL (0.0-0.0); Mean Corp Hgb Conc 32.3 g/dL (32-36); Mean Corpuscular Volume 84.2 fL (81-99); Mean Platelet Vol. 9.5 fl (6.2-12.0); NRBC Flagged by Analyzer 0 % (0-5); Platelet Count 333 K/mm3 (150-450); RBC Distribution Width CV 15.5 % (11.6-14.6); RBC Distribution Width SD 46.8 fl (35.1-43.9); Red Blood Count 4.30 M/mm3 (4.2-5.4); White Blood Count 6.4 K/mm3 (4.4-11.0)
[2025-03-13 06:36] LABS: Anion Gap 12 (5-15); BUN 20 mg/dL (4-19); BUN/Creat Ratio 20.3 RATIO (10-20); Calcium,Total 9.7 mg/dL (7.6-11.0); Carbon Dioxide 24.4 mmol/L (21.0-32.0); Chloride 100 mmol/L (98-108); Estimated Creatinine Clearance 52.58 ml/min (50-250); Glucose 139 mg/dL (70-99); Potassium 4.6 mmol/L (3.3-5.1)
[2025-03-13] MEDS: buPROPion (XL) 150 MG TABLET.XL PO (08:40)
[2025-03-13] MEDS: buPROPion (XL) 300 MG TABLET.XL PO (08:41)
[2025-03-13] MEDS: Senna/Docusate Sodium 1 Tablet PO ×2 (08:41→21:25)
[2025-03-13] MEDS: Glucerna Shake 120 ML LIQUID PO ×3 (08:43→17:22)
[2025-03-13 10:00] VITALS: BP 145/66; PULSE 68; RESP 16; TEMP 36.6; O2SAT 97
--- NOTE | 2025-03-13 13:32 | MDS.RN ---
Pain assessment for MDS complete.
[2025-03-13] MEDS: Glycerin/Hypromellose/PEG400 15 ml Bottle 2 DRP EACH EYE (21:29)
--- NOTE | 2025-03-13 22:50 | NURSING ---
Pt requested PRN eye drops to be administered with HS medications. Observed patient's own eye drops from home at bedside. This nurse educated patient regarding use of personal medications while admitted to TCU and administered PRN eye drops ordered on eMAR. Medication placed in pt's med box at this time. Pt educated to alert staff when family member is present to take medication home with them. Pt agreeable and cooperative with policy.
[2025-03-14 09:06] VITALS: BP 146/66; PULSE 68; RESP 17; TEMP 36.2; O2SAT 94
[2025-03-14] MEDS: buPROPion (XL) 300 MG TABLET.XL PO (09:10)
[2025-03-14] MEDS: Senna/Docusate Sodium 1 Tablet PO ×2 (09:10→21:38)
[2025-03-14] MEDS: buPROPion (XL) 150 MG TABLET.XL PO (09:10)
[2025-03-14] MEDS: Glucerna Shake 120 ML LIQUID PO ×3 (09:12→17:37)
[2025-03-14] MEDS: Glycerin/Hypromellose/PEG400 15 ml Bottle 2 DRP EACH EYE (15:07)
[2025-03-15 09:27] VITALS: BP 120/73; PULSE 77; RESP 16; TEMP 35.8; O2SAT 99
[2025-03-15] MEDS: buPROPion (XL) 150 MG TABLET.XL PO (09:31)
[2025-03-15] MEDS: Senna/Docusate Sodium 1 Tablet PO ×2 (09:31→21:46)
[2025-03-15] MEDS: buPROPion (XL) 300 MG TABLET.XL PO (09:31)
[2025-03-15] MEDS: Glucerna Shake 120 ML LIQUID PO ×3 (09:33→18:52)
[2025-03-15] MEDS: Glycerin/Hypromellose/PEG400 15 ml Bottle 2 DRP EACH EYE ×2 (11:17→21:46)
[2025-03-15] MEDS: Tuberculin,Purif.prot.deriv. 50 TU/ML Vial 0.1 ML ID (11:24)
--- NOTE | 2025-03-15 11:29 | NURSING ---
Patient called nurse to bedside to assist with questions. Patient states she has a bone scan scheduled for Sunday, she has an injection at 0945 and then scan at 1400. Nursing states staff can assist patient to this appointment. Patient provided nurse with number [phone]. Nurse called number and left VM in regards to any restrictions with meds or prep requirements before scan. Call back number provided. Patient also inquiring about mood meds. Patient follows [facility] N[facility]. Nurse provided patient with medication list. Patient notes some medications and doses don't seem right. Patient has list at home but unable to recall. Patient states she thinks she was suppose to taper down Cymbalta and start Zoloft. Nurse states staff will call [facility] for clarification on mood medications. Communication update left for Dr. Whipple. Patient appreciative.
--- NOTE | 2025-03-16 04:24 | NURSING ---
Talked with Dr. Whipple regarding patient's questions regarding medications. Patient updated.
--- NOTE | 2025-03-16 08:30 | NURSING ---
Agronomy Teacher Note; MDS for 03/14/2025 Complete
[2025-03-16] MEDS: Glucerna Shake 120 ML LIQUID PO ×3 (08:52→17:50)
[2025-03-16] MEDS: buPROPion (XL) 300 MG TABLET.XL PO (08:53)
[2025-03-16] MEDS: buPROPion (XL) 150 MG TABLET.XL PO (08:55)
[2025-03-16] MEDS: Senna/Docusate Sodium 1 Tablet PO ×2 (08:55→21:26)
[2025-03-16] MEDS: 0.9% Saline Lock 10 ML Syringe IV (09:52)
--- NOTE | 2025-03-16 12:35 | NURSING ---
Off unit for bone scan
--- NOTE | 2025-03-16 14:55 | NURSING ---
Cymbalta decreased and Zoloft added per Dr Whipple per patient request. She states this is what she was supposed to do at home per Psychiatrist.
[2025-03-16 15:13] VITALS: BP 142/56; PULSE 68; RESP 18; TEMP 36.4; O2SAT 95
[2025-03-17 06:00] VITALS: BMI 27.7
[2025-03-17 08:17] VITALS: BP 157/69; PULSE 69; RESP 16; TEMP 36.2; O2SAT 97
[2025-03-17] MEDS: buPROPion (XL) 150 MG TABLET.XL PO (08:22)
[2025-03-17] MEDS: buPROPion (XL) 300 MG TABLET.XL PO (08:22)
[2025-03-17] MEDS: Senna/Docusate Sodium 1 Tablet PO ×2 (08:22→21:55)
[2025-03-17] MEDS: Glucerna Shake 120 ML LIQUID PO ×3 (08:24→18:24)
[2025-03-17 20:00] VITALS: PULSE 74; O2SAT 97
[2025-03-18 06:42] VITALS: PULSE 72; O2SAT 97
[2025-03-18] MEDS: Glucerna Shake 120 ML LIQUID PO ×3 (08:14→16:52)
[2025-03-18] MEDS: buPROPion (XL) 150 MG TABLET.XL PO (08:14)
[2025-03-18] MEDS: Senna/Docusate Sodium 1 Tablet PO ×2 (08:16→22:20)
[2025-03-18] MEDS: buPROPion (XL) 300 MG TABLET.XL PO (08:16)
[2025-03-18 16:55] VITALS: BP 121/57; PULSE 67; TEMP 34.8; O2SAT 97
[2025-03-18] MEDS: Glycerin/Hypromellose/PEG400 15 ml Bottle 2 DRP EACH EYE (22:21)
[2025-03-19] MEDS: Senna/Docusate Sodium 1 Tablet PO ×2 (08:07→22:59)
[2025-03-19] MEDS: buPROPion (XL) 300 MG TABLET.XL PO (08:07)
[2025-03-19] MEDS: buPROPion (XL) 150 MG TABLET.XL PO (08:07)
--- NOTE | 2025-03-19 08:07 | MDS.RN ---
Information for the MDS was obtained from review of the clinical record, interview of resident, staff, and direct observation of resident?s care.
[2025-03-19] MEDS: Glucerna Shake 120 ML LIQUID PO ×3 (08:10→17:15)
[2025-03-19 10:00] VITALS: BP 158/69; PULSE 73; RESP 16; TEMP 36.4; O2SAT 99
[2025-03-19] MEDS: Glycerin/Hypromellose/PEG400 15 ml Bottle 2 DRP EACH EYE (22:59)
[2025-03-20 05:44] LABS: Hematocrit 37.8 % (37-47); Hemoglobin 12.0 g/dL (12.0-15.0); Immature Granulocytes Count 0.030 X10^3/uL (0.0-0.0); Mean Corp Hgb Conc 31.7 g/dL (32-36); Mean Corpuscular Volume 84.8 fL (81-99); Mean Platelet Vol. 9.7 fl (6.2-12.0); NRBC Flagged by Analyzer 0 % (0-5); Platelet Count 335 K/mm3 (150-450); RBC Distribution Width CV 15.1 % (11.6-14.6); RBC Distribution Width SD 46.6 fl (35.1-43.9); Red Blood Count 4.46 M/mm3 (4.2-5.4); White Blood Count 6.7 K/mm3 (4.4-11.0)
[2025-03-20 06:12] LABS: Anion Gap 11 (5-15); BUN 18 mg/dL (4-19); BUN/Creat Ratio 20.0 RATIO (10-20); Calcium,Total 10.0 mg/dL (7.6-11.0); Carbon Dioxide 26.6 mmol/L (21.0-32.0); Chloride 101 mmol/L (98-108); Estimated Creatinine Clearance 58.72 ml/min (50-250); Glucose 130 mg/dL (70-99); Potassium 5.2 mmol/L (3.3-5.1)
[2025-03-20 10:30] VITALS: BP 134/74; PULSE 76; RESP 18; TEMP 36.3; O2SAT 96
[2025-03-20] MEDS: Senna/Docusate Sodium 1 Tablet PO ×2 (10:30→22:03)
[2025-03-20] MEDS: buPROPion (XL) 150 MG TABLET.XL PO (10:31)
[2025-03-20] MEDS: buPROPion (XL) 300 MG TABLET.XL PO (10:32)
[2025-03-20] MEDS: Glucerna Shake 120 ML LIQUID PO ×2 (10:33→18:31)
[2025-03-20] MEDS: Glycerin/Hypromellose/PEG400 15 ml Bottle 2 DRP EACH EYE (22:05)
--- NOTE | 2025-03-20 22:08 | NURSING ---
Patient refused O2 at HS for Hx. of sleep apnea.
[2025-03-21 07:50] LABS: Anion Gap 10 (5-15); BUN 16 mg/dL (4-19); BUN/Creat Ratio 17.3 RATIO (10-20); Calcium,Total 9.8 mg/dL (7.6-11.0); Carbon Dioxide 27.6 mmol/L (21.0-32.0); Chloride 101 mmol/L (98-108); Estimated Creatinine Clearance 57.43 ml/min (50-250); Glucose 141 mg/dL (70-99); Potassium 4.9 mmol/L (3.3-5.1)
[2025-03-21 09:00] VITALS: BP 157/65; PULSE 78; RESP 16; TEMP 36.9; O2SAT 96
[2025-03-21] MEDS: Glycerin/Hypromellose/PEG400 15 ml Bottle 2 DRP EACH EYE ×3 (10:58→21:46)
[2025-03-21] MEDS: Glucerna Shake 120 ML LIQUID PO ×2 (10:59→13:28)
[2025-03-21] MEDS: Senna/Docusate Sodium 1 Tablet PO ×2 (11:02→21:46)
[2025-03-21] MEDS: buPROPion (XL) 300 MG TABLET.XL PO (11:03)
[2025-03-21] MEDS: buPROPion (XL) 150 MG TABLET.XL PO (11:03)
[2025-03-21 20:25] VITALS: PULSE 70; RESP 16; O2SAT 98
[2025-03-22] MEDS: buPROPion (XL) 150 MG TABLET.XL PO (09:12)
[2025-03-22] MEDS: Senna/Docusate Sodium 1 Tablet PO ×2 (09:13→22:33)
[2025-03-22] MEDS: buPROPion (XL) 300 MG TABLET.XL PO (09:13)
[2025-03-22] MEDS: Glucerna Shake 120 ML LIQUID PO ×3 (09:14→17:37)
[2025-03-22 12:46] VITALS: BP 133/62; PULSE 71; RESP 15; TEMP 36.4; O2SAT 96
[2025-03-22] MEDS: Glycerin/Hypromellose/PEG400 15 ml Bottle 2 DRP EACH EYE ×3 (13:14→22:33)
[2025-03-23] MEDS: Glycerin/Hypromellose/PEG400 15 ml Bottle 2 DRP EACH EYE (06:00)
[2025-03-23 06:09] VITALS: RESP 16
[2025-03-23 08:22] VITALS: BP 136/68; PULSE 71; RESP 16; TEMP 35.9; O2SAT 99
[2025-03-23] MEDS: buPROPion (XL) 300 MG TABLET.XL PO (08:23)
[2025-03-23] MEDS: Senna/Docusate Sodium 1 Tablet PO ×2 (08:23→21:21)
[2025-03-23] MEDS: buPROPion (XL) 150 MG TABLET.XL PO (08:24)
[2025-03-23] MEDS: Glucerna Shake 120 ML LIQUID PO ×3 (08:27→16:47)
--- NOTE | 2025-03-23 21:23 | NURSING ---
Patient accepted prune juice with butter for bowel protocol.
[2025-03-23 21:55] VITALS: PULSE 72; O2SAT 95
[2025-03-24 06:00] VITALS: BMI 28.0
[2025-03-24 07:54] VITALS: BP 166/73; PULSE 65; RESP 18; TEMP 35.6; O2SAT 96
[2025-03-24] MEDS: Glycerin/Hypromellose/PEG400 15 ml Bottle 2 DRP EACH EYE ×2 (07:57→22:33)
[2025-03-24] MEDS: Glucerna Shake 120 ML LIQUID PO ×3 (07:57→17:28)
[2025-03-24] MEDS: buPROPion (XL) 300 MG TABLET.XL PO (08:04)
[2025-03-24] MEDS: buPROPion (XL) 150 MG TABLET.XL PO (08:04)
[2025-03-24] MEDS: Polyethylene Glycol 3350 17 GM PACKET PO (08:08)
[2025-03-24] MEDS: Senna/Docusate Sodium 1 Tablet 2 TABLET PO ×2 (08:08→22:35)
[2025-03-24 08:58] VITALS: BP 159/56
--- NOTE | 2025-03-24 10:32 | CASEMGMT ---
Social Work SW spoke with pt to discuss pt's progress and DC plans. Pt reports overall improvement, specifically noting ST improvement with memory. SW noted pt has oncology appt on 03/25 and offered to set DC for 03/28. Pt agreeable. pt to notify family and have them transport. SW inquired about HHC vs OP therapy. Pt prefers OP at [facility]. SW to coordinate PT. Pt denied DME needs. - SW notified by Dr that he is requesting a sleep study at DC, if possible. Charge Nurse spoke with pt and pt agreeable to study, but has not worn O2 overnight during stay. RN to contact sleep lab for opening and SW can adjust DC date if needed. Will continue to follow. Radha Jackson TREE FELLER OPERATOR BI LEAD
--- NOTE | 2025-03-24 10:33 | NURSING ---
Spoke with resident about sleep study recommended by Dr. Whipple after overnight trending pulse ox results. She agreed to trying to schedule testing. She did note she was given a cpap before but couldn't stand the mask and took if off after an hour. RN called and left VM with aRdha in sleep lab about scheduling.
--- NOTE | 2025-03-24 20:48 | PCM.DC.SUM ---
Providers Date of Admission: 03/07/25 Primary Care Physician: Dr. Sumit Whipple MD Reason For Visit: FREQUENT FALLS Diagnosis Discharge Diagnosis (1) Debility: Status: Acute Code(s): R53.81 - Other malaise (2) Multiple falls: Status: Acute Code(s): R29.6 - Repeated falls (3) Sacral fracture: Status: Inactive Code(s): S32.10XA - Unspecified fracture of sacrum, initial encounter for closed fracture (4) Biclonal gammopathy: Status: Acute Code(s): D47.2 - Monoclonal gammopathy (5) Anxiety: Status: Acute Code(s): F41.9 - Anxiety disorder, unspecified (6) GERD (gastroesophageal reflux disease): Status: Acute Code(s): K21.9 - Gastro-esophageal reflux disease without esophagitis (7) Hypothyroidism: Status: Acute Code(s): E03.9 - Hypothyroidism, unspecified (8) HLD (hyperlipidemia): Status: Acute Code(s): E78.5 - Hyperlipidemia, unspecified (9) Hyperglycemia due to type 2 diabetes mellitus: Status: Inactive Code(s): E11.65 - Type 2 diabetes mellitus with hyperglycemia (10) Parkinson disease: Status: Acute Code(s): G20.A1 - Parkinson's disease without dyskinesia, without mention of fluctuations (11) Orthostatic hypotension: Status: Acute Code(s): I95.1 - Orthostatic hypotension (12) Depression: Status: Acute Code(s): F32.A - Depression, unspecified Qualifiers: Depression Type: unspecified Qualified Code(s): F32.A - Depression, unspecified (13) Diabetic polyneuropathy: Status: Acute Code(s): E11.42 - Type 2 diabetes mellitus with diabetic polyneuropathy Plan 79 year old female with below past medical history hospitalized for multiple falls, sacral fracture, admitted to TCU with debility, here for rehabilitation, strengthening, prior to discharge home with family. Debility - PT/OT. Pain - Tylenol 1000mg q6 prn pain (1-10). Bowel - senna/colace 1 tablet bid. Adult immunization - Administer pneumonia vaccine, covid vaccine, flu vaccine as appropriate. DVT prophylaxis - Lovenox 40mg sc daily. Biclonal gammopathy - Schedule appt with [facility], order UPEP. Parkinson Disease - Sinemet 25/100mg tid. Anxiety - Hydroxyzine 50mg q6 prn. Hypothyroidism - Levothyroxine 100mcg daily. Diabetes Mellitus II - Metformin 1000mg bidcm. Diabetic polyneuropathy - Lyrica 75mg tid. Tinea Corporis - Nystatin powder topical bid. GERD - Pantoprazole 40mg daily. Dry Eyes - Artificial tears 2gtt ou q1h prn. The following psychotropic medication was present on admission: Bupropion 450mg qam. Psychotropic medication therapy is indicated for a diagnosis of: Depression Based on my clinical evaluation, continuation of the medication is necessary at this time. Gradual dose reduction plan (select one): ____ GDR will be attempted. Will monitor patient symptoms and behaviors in response to GDR. __x__ GRD contraindicated. Reason contraindicated: stable chronic retirement use. The following psychotropic medication was present on admission: Buspar 5mg bid. Psychotropic medication therapy is indicated for a diagnosis of: Anxiety Based on my clinical evaluation, continuation of the medication is necessary at this time. Gradual dose reduction plan (select one): ____ GDR will be attempted. Will monitor patient symptoms and behaviors in response to GDR. __x__ GRD contraindicated. 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 The following psychotropic medication was present on admission: Duloxetine 60mg daily. Psychotropic medication therapy is indicated for a diagnosis of: Depression. Based on my clinical evaluation, continuation of the medication is necessary at this time. Gradual dose reduction plan (select one): ____ GDR will be attempted. Will monitor patient symptoms and behaviors in response to GDR. __x__ GRD contraindicated. Reason contraindicated: stable chronic retirement use. Medications at Discharge Home Medications pantoprazole 40 mg tablet,delayed release 40 mg PO DAILY GERD 10/22/18 levothyroxine 100 mcg tablet 100 mcg PO QDAY thyroid 12/10/23 metformin 1,000 mg tablet 1,000 mg PO BID DM 05/21/24 bupropion HCl 300 mg 24 hr tablet, extended release 300 mg PO QDAY depression #90 tabs 12/03/24 carbidopa 25 mg-levodopa 100 mg tablet 1 tab PO TID Parkinsons 12/03/24 bupropion HCl 150 mg 24 hr tablet, extended release 150 mg PO QAM mood #90 tabs 12/26/24 buspirone 5 mg tablet 5 mg PO BID mood #180 tabs 12/26/24 peg [id number] 1 %-0.2 %-0.2 % eye drops (Artificial Tears ([id number])) 2 drp EACH EYE Q1H PRN DRY EYES #0 mL 03/07/25 pregabalin 75 mg capsule 75 mg PO TID Nerve pain 3 days #9 caps 03/07/25 duloxetine 30 mg capsule,delayed release 30 mg PO DAILY 30 days #30 caps 03/24/25 sennosides 8.6 mg-docusate sodium 50 mg tablet (Stimulant Laxative Plus) 2 tab PO BID 30 days #120 tabs 03/24/25 sertraline 50 mg tablet 25 mg (1/2 x 50 mg) PO DAILY 30 days #15 tabs 03/24/25 Hospital Course Operations None Procedures None Summary of Care Provided Minutes Spent on Discharge: 35 Hospital Course: 79 year old female with below past medical history hospitalized for multiple falls, sacral fracture, admitted to TCU with debility, here for rehabilitation, strengthening, prior to discharge home with family. Discharge home with brother 03/28/2025, [employer] PT. Sleep study 03/30/2025. Physical Exam Const alert General Appearance: cooperative HEENT normocephalic Eyes PERRL and EOMs intact bilaterally Neck supple, no JVD and no carotid bruits Resp normal respiratory effort, normal air movement and clear to auscultation bilaterally Cardio regular rate and regular rhythm GI normal to inspection, nondistended, normoactive bowel sounds, non-tender and non-distended Extremity normal capillary refill General Extremity: Negative for edema Skin no rashes or lesions noted General Skin Exam: no breakdown Psych affect normal Appearance: appropriate Weight / BMI Weight Weight: 83.642 kg Body Mass Index (BMI) 28.0 ABG / Lab / Microbiology Data 03/20/25 05:22 03/21/25 06:56 Laboratory: Laboratory Results - last 24 hr 03/24/25 05:36: POC Glucose 123 H 03/24/25 16:31: POC Glucose 213 H D/C Instructions Discharge Activity: Return to Normal Activity, May Shower and Use Walker Weight Bearing Status: Weight bearing as tolerated Call your doctor if you observe: Fever of 101 or Higher, Inability to urinate, Inability to have a bowel movement, Shortness of breath, Dizziness, Fainting spells, Swelling in the ankles, Chest pain and Uncontrolled pain DC O2, CPAP, BIPAP Needs Home O2 Discharge instructions: No Please Follow Up With: Caden Jordan MD When: 03/25/2025 Meaningful Use Info Meaningful Use Meaningful Use Diagnoses (Choose all that apply): None applicable Discharge Plan Admission Admit Date/Time: 03/07/25 16:03 Primary Reason for Your Visit: Debility. Attending Provider: Sumit Whipple Chi Primary Care Provider: Sumit Whipple Chi Instructions Additional Instructions / Restrictions: Discharge home with brother 03/28/2025, [employer] [facility] [facility] [employer] PT. Sleep study 03/30/2025. Discharge Orders/Prescriptions Prescriptions: New sennosides-docusate sodium [Stimulant Laxative Plus] 8.6-50 mg Tablet 2 tab PO BID 30 Days Qty: 120 0RF sertraline 50 mg Tablet 25 mg PO DAILY 30 Days Qty: 15 0RF duloxetine 30 mg Capsule,Delayed Release(Dr/Ec) 30 mg PO DAILY 30 Days Qty: 30 0RF Continued levothyroxine 100 mcg tablet 100 mcg PO QDAY carbidopa-levodopa 25-100 mg tablet 1 tab PO TID bupropion HCl 300 mg tablet extended release 24 hr 300 mg PO QDAY Qty: 90 1RF Rx Instructions: take in addition to 300mg tablet for 450mg total buspirone 5 mg tablet 5 mg PO BID Qty: 180 1RF bupropion HCl 150 mg tablet extended release 24 hr 150 mg PO QAM Qty: 90 1RF Rx Instructions: take in addition to 300mg tablet for 450mg total pantoprazole 40 MG tablet 40 mg PO DAILY metformin 1,000 mg tablet 1,000 mg PO BID Artificial Tears([id number]) 1-0.2-0.2 % Drops 2 drp EACH EYE Q1H PRN (Reason: DRY EYES) Qty: 0 0RF pregabalin 75 mg capsule 75 mg PO TID 3 Days Qty: 9 0RF Discontinued rosuvastatin 40 mg tablet 40 mg PO QDAY hydroxyzine HCl 50 mg tablet 50 mg PO Q6H PRN (Reason: anxiety) d-mannose 500 mg capsule 500 mg PO .QD ascorbic acid (vitamin C) 500 mg tablet 500 mg PO QDAY docusate sodium 100 mg capsule 100 mg PO BID Caltrate 600 plus D 600 mg-20 mcg (800 unit) tablet,chewable 1 tab PO QAM magnesium oxide 500 mg capsule 500 mg PO QDAY acetaminophen 500 mg tablet 500 mg PO Q8H PRN (Reason: PAIN) duloxetine 60 mg capsule,delayed release(DR/EC) 60 mg PO DAILY sertraline 50 mg tablet 25 mg PO QDAY Rx Instructions: Take 0.5 tablet daily for 14 days then take 1 tablet daily thereafter nystatin 100,000 unit/gram Powder 1 applic topical BID Qty: 0 0RF Protocol: *Topical Application Instructions APPLICATION INSTRUCTIONS: abdominal and groin folds fludrocortisone 0.1 mg Tablet 0.1 mg PO BREAKFAST Qty: 30 2RF diphenhydramine HCl [Benadryl] 25 mg capsule 25 mg PO BID PRN PRN (Reason: itching) Qty: 20 0RF Rx Instructions: Take if being given oxycodone to avoid side effects of itching. Referrals / Follow Up: Sumit Whipple Chi, MD [Primary Care Provider] - Within 1 Week (Transition Care Management appointment.) Disposition Disposition (needs filled in before D/C Order can be placed): Home Health Service
[2025-03-25] MEDS: hydrOXYzine PAM 25 MG Capsule 50 MG PO (03:37)
[2025-03-25] MEDS: Glycerin/Hypromellose/PEG400 15 ml Bottle 2 DRP EACH EYE (06:07)
[2025-03-25] MEDS: Glucerna Shake 120 ML LIQUID PO ×3 (08:01→17:44)
[2025-03-25] MEDS: Polyethylene Glycol 3350 17 GM PACKET PO (08:03)
[2025-03-25] MEDS: Senna/Docusate Sodium 1 Tablet 2 TABLET PO ×2 (08:03→23:04)
[2025-03-25] MEDS: buPROPion (XL) 150 MG TABLET.XL PO (08:04)
[2025-03-25] MEDS: buPROPion (XL) 300 MG TABLET.XL PO (08:04)
[2025-03-25 10:00] VITALS: BP 162/65; PULSE 70; RESP 16; TEMP 36.2; O2SAT 96
[2025-03-26] MEDS: Polyethylene Glycol 3350 17 GM PACKET PO (10:09)
[2025-03-26] MEDS: Senna/Docusate Sodium 1 Tablet 2 TABLET PO ×2 (10:10→21:37)
[2025-03-26] MEDS: buPROPion (XL) 300 MG TABLET.XL PO (10:10)
[2025-03-26] MEDS: buPROPion (XL) 150 MG TABLET.XL PO (10:10)
[2025-03-26] MEDS: Glucerna Shake 120 ML LIQUID PO ×3 (10:14→18:19)
[2025-03-26 16:00] VITALS: BP 129/83; PULSE 73; RESP 20; TEMP 36.5; O2SAT 96
[2025-03-26 21:31] VITALS: PULSE 67; RESP 18; O2SAT 96
[2025-03-26 21:33] VITALS: PULSE 90; O2SAT 91
[2025-03-26] MEDS: Glycerin/Hypromellose/PEG400 15 ml Bottle 2 DRP EACH EYE (21:38)
[2025-03-27 05:42] LABS: Hematocrit 35.3 % (37-47); Hemoglobin 11.3 g/dL (12.0-15.0); Immature Granulocytes Count 0.030 X10^3/uL (0.0-0.0); Mean Corp Hgb Conc 32.0 g/dL (32-36); Mean Corpuscular Volume 84.0 fL (81-99); Mean Platelet Vol. 9.8 fl (6.2-12.0); NRBC Flagged by Analyzer 0 % (0-5); Platelet Count 327 K/mm3 (150-450); RBC Distribution Width CV 15.2 % (11.6-14.6); RBC Distribution Width SD 46.6 fl (35.1-43.9); Red Blood Count 4.20 M/mm3 (4.2-5.4); White Blood Count 5.9 K/mm3 (4.4-11.0)
[2025-03-27 06:01] LABS: Anion Gap 9 (5-15); BUN 18 mg/dL (4-19); BUN/Creat Ratio 20.3 RATIO (10-20); Calcium,Total 9.9 mg/dL (7.6-11.0); Carbon Dioxide 26.9 mmol/L (21.0-32.0); Chloride 102 mmol/L (98-108); Estimated Creatinine Clearance 58.39 ml/min (50-250); Glucose 139 mg/dL (70-99); Potassium 4.9 mmol/L (3.3-5.1)
[2025-03-27 09:21] VITALS: BP 134/61; PULSE 79; RESP 18; TEMP 35.9; O2SAT 97
[2025-03-27] MEDS: Glucerna Shake 120 ML LIQUID PO ×3 (09:22→17:50)
[2025-03-27] MEDS: Polyethylene Glycol 3350 17 GM PACKET PO (09:23)
[2025-03-27] MEDS: Senna/Docusate Sodium 1 Tablet 2 TABLET PO ×2 (09:23→22:48)
[2025-03-27] MEDS: buPROPion (XL) 150 MG TABLET.XL PO (09:24)
[2025-03-27] MEDS: buPROPion (XL) 300 MG TABLET.XL PO (09:24)
--- NOTE | 2025-03-27 09:24 | CASEMGMT ---
Social Work Discharge is planned for tomorrow 03/28. Pt to return home with her brother and brother will provide needed transportation. SW met with pt and discussed dc and confirmed plan. Concerns with overnight oxygen. Sleep study scheduled for 03/30 and pt is aware. Overnight trending pulse ox completed and pt will require oxygen at night. Referral made to [facility] in [facility] and orders and testing sent via careport. Marcial states [facility] will call brother and set up home oxygen today. Pt agreeable with this plan. Pt is requesting outpt PT at [facility]. Referral made and appointment set on 03/30 for evaluation. Pt denies any further dc needs. Discharge Date: 03/28/25 Discharge Disposition: Home with brother. Out pt PT at [facility] and home oxygen thru [facility] for night time use with follow up Sleep Study LOPEZ Ferrera
--- NOTE | 2025-03-27 11:16 | MDS.RN ---
Pain assessment for MDS complete.
--- NOTE | 2025-03-27 11:30 | SLEEP ---
Engineering Intern met with patient at bedside to confirm special needs coordination and booked for outpatient sleep study Sunday03/30/25 at 8p. Patients brother will provide transportation to [facility] 03/30/25 at 8p and will seed cone picker 03/31/25 at 0545 at hospital main entrance. Consultation to follow up on sleep study results and any treatment recommendations will be scheduled with [facility] and date/time provided to the patient at the time of testing.
[2025-03-27 14:02] VITALS: PULSE 78; RESP 16; O2SAT 97
--- NOTE | 2025-03-27 14:14 | CASEMGMT ---
BIMS () and PHQ9 (3) interviews completed on this date for MDS assessment. LOPEZ Herring
--- NOTE | 2025-03-27 14:15 | CASEMGMT ---
Social Work Pt requesting information on medical alert systems. Written information provided. LOPEZ Herring
[2025-03-27] MEDS: Glycerin/Hypromellose/PEG400 15 ml Bottle 2 DRP EACH EYE (22:48)
[2025-03-28 05:48] VITALS: PULSE 60; RESP 16; O2SAT 100
[2025-03-28] MEDS: Glucerna Shake 120 ML LIQUID PO (07:50)
[2025-03-28] MEDS: buPROPion (XL) 150 MG TABLET.XL PO (07:52)
[2025-03-28] MEDS: Senna/Docusate Sodium 1 Tablet 2 TABLET PO (07:52)
[2025-03-28] MEDS: buPROPion (XL) 300 MG TABLET.XL PO (07:53)
[2025-03-28 10:00] VITALS: BP 130/67; PULSE 71; RESP 16; TEMP 36.4; O2SAT 97
== END 2025-03-28 12:30 | disposition home or self-care (01) | DRG 561 ==
PROVIDERS: Admitting Provider Family Medicine Geriatric Medicine; PCP Family Medicine Geriatric Medicine; Visit Provider Family Medicine Geriatric Medicine
DX: S32.10XD Unspecified fracture of sacrum, subsequent encounter for fracture with routine healing (principal); E11.22 Type 2 diabetes mellitus with diabetic chronic kidney disease; E03.9 Hypothyroidism, unspecified; D47.2 Monoclonal gammopathy; B35.4 Tinea corporis; G20.A1 Parkinson's disease without dyskinesia, without mention of fluctuations; N18.30 Chronic kidney disease, stage 3 unspecified; F32.A Depression, unspecified; E11.42 Type 2 diabetes mellitus with diabetic polyneuropathy; E11.65 Type 2 diabetes mellitus with hyperglycemia; K21.9 Gastro-esophageal reflux disease without esophagitis; I95.1 Orthostatic hypotension; E78.5 Hyperlipidemia, unspecified; F41.9 Anxiety disorder, unspecified; W19.XXXD Unspecified fall, subsequent encounter; F32.9 Major depressive disorder, single episode, unspecified; G47.30 Sleep apnea, unspecified; Z79.890 Hormone replacement therapy; Z79.899 Other long term (current) drug therapy; Z79.84 Long term (current) use of oral hypoglycemic drugs; Z23 Encounter for immunization
CPT/HCPCS: 36415; 80048; 81050; 82962; 84166; 85025; 86335; 90480; 91322; 92507; 92523; 94762; 97110; 97116; 97129; 97130; 97161; 97166; 97530; 97535; 97802; 97803; A4216

== ENCOUNTER → 2025-03-16 | Outpatient (CLI) | payer MEDICARE, BC, SELFPAY ==
--- NOTE | 2025-03-16 09:40 | NM_ITS ---
PROCEDURE: BONE SCAN WHOLE BODY 03/16/2025 REASON FOR EXAM: LUCENCY OF FEMORAL HEAD ON XRAY TECHNIQUE: Delayed anterior and posterior whole-body images were obtained after radiopharmaceutical administration. RADIOPHARMACEUTICAL: 25.5 mCi Technetium-99m MDP IV COMPARISON: Lumbar CT 03/05/2025. FINDINGS: Transverse linear increased uptake in the L2 vertebral body is seen, consistent with partial compression fracture Marked abnormal uptake in the sacrum is seen bilaterally, consistent with a recent sacral fracture, also noted on the CT examination of 03/05/2025. 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 A left hip prosthesis is seen, with associated activity defect. Of the clinically concerning right hip, no area of abnormal activity is seen. No findings are seen to suggest the presence of osseous metastatic disease. NM/Bone Scan Whole Body IMPRESSION: 1. No abnormal uptake seen in the clinically concerning right femoral head. 2. Partial compression fracture of the L2 vertebral body. 3. Sacral fracture again noted. Reading Location: [place] [id number]
== END | disposition home or self-care (01) ==
LOC: NM 09:21
PROVIDERS: PCP Family Medicine Geriatric Medicine; Referring Provider Family Medicine Geriatric Medicine; Visit Provider Family Medicine Geriatric Medicine
DX: R93.6 Abnormal findings on diagnostic imaging of limbs (principal)
CPT/HCPCS: 78306; A9503

== ENCOUNTER → 2025-03-30 | Outpatient (CLI) | payer MEDICARE, BC, SELFPAY | END | disposition home or self-care (01) | LOC: SL 20:18 | PROVIDERS: PCP Family Medicine Geriatric Medicine; Referring Provider Family Medicine Geriatric Medicine; Visit Provider Family Medicine Geriatric Medicine | DX: G47.33 Obstructive sleep apnea (adult) (pediatric) (principal) | CPT/HCPCS: 95811 ==

== ENCOUNTER → 2025-03-31 | Outpatient (CLI) | payer MEDICARE, BC, SELFPAY ==
[2025-03-31 16:53] LABS: AST(SGOT) 17 U/L (<=31); Alanine Aminotransfer ALT/SGPT 10 U/L (<=34); Albumin, Serum 4.2 g/dL (3.4-4.8); Alkaline Phosphatase 71 U/L (35-104); Anion Gap 13 (5-15); BUN 21 mg/dL (4-19); BUN/Creat Ratio 17.6 RATIO (10-20); Calcium,Total 10.0 mg/dL (7.6-11.0); Carbon Dioxide 24.2 mmol/L (21.0-32.0); Chloride 101 mmol/L (98-108); Globulin 2.6 g/dL (2.2-4.2); Glucose 126 mg/dL (70-99); Potassium 4.8 mmol/L (3.3-5.1)
[2025-03-31 16:54] LABS: Hematocrit 38.3 % (37-47); Hemoglobin 12.3 g/dL (12.0-15.0); Immature Granulocytes Count 0.020 X10^3/uL (0.0-0.0); Mean Corp Hgb Conc 32.1 g/dL (32-36); Mean Corpuscular Volume 84.4 fL (81-99); Mean Platelet Vol. 9.5 fl (6.2-12.0); NRBC Flagged by Analyzer 0 % (0-5); Platelet Count 373 K/mm3 (150-450); RBC Distribution Width CV 15.3 % (11.6-14.6); RBC Distribution Width SD 46.5 fl (35.1-43.9); Red Blood Count 4.54 M/mm3 (4.2-5.4); White Blood Count 8.1 K/mm3 (4.4-11.0)
[2025-04-01 00:03] LABS: Xtra Tube Kwok EXTRA TUBE
== END | disposition home or self-care (01) ==
LOC: POLAB3 16:00
PROVIDERS: PCP Family Medicine Geriatric Medicine; Visit Provider Family Medicine Geriatric Medicine
DX: I10 Essential (primary) hypertension (principal); E11.65 Type 2 diabetes mellitus with hyperglycemia
CPT/HCPCS: 36415; 80053; 83036; 84443; 85025

== ENCOUNTER 2025-04-28 13:30 | Outpatient (RCR) | payer MEDICARE, BC, SELFPAY ==
--- NOTE | 2025-03-30 16:03 | HP.PTEVAL_ITS ---
Patient's Visit Information Visit Information Visit Information: YUNG HERNANDEZ is a 79 year old F referred to Physical Therapy by Dr. Sumit Whipple MD with a diagnosis of freq falls, debility, PD. Date of Evaluation: 03/30/25 Physical Therapist: SELVIN Rao Visit Plan Frequency: 2x /Week Duration: 2 Months Plan: 2X/ week for 8 weeks for functional transfers, gait training, balance, Functional strength with HEP Subjective Subjective: Pt has fallen 8X in 3 months. She was in the hospital and then in the correction and was there over a month and was home for a week and fell in her dining room and put a hole in the wall and then went back [facility] and then went to [facility] for 3 weeks. She reports that she was improving there. She is on a rolling walker now. She had been seeing a speech therapist and OT as well. She is having memory issues. 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 She is struggling to get up from a chair and can not get up from a low chair. She has steps but she does not have to use them. She has a ramp in the garage. She has tailbone pain from her last fall. She was diagnosed with PD 3 months ago. She is on PD meds and they must be helping. Pain Tailbone: Pain Intensity (Out of 10): 1 Objective Objective: Gait: walks with wheeled walker with flexed trunk and uses the rails on the walker heavily for gait. She does more of a steppage gait with decreased toe raise and decreased heel to toe gait pattern. LE MMT: R hip flex 15.4 and L 15.7 R knee ext 16.7 and L 18 R knee flex 14.2 and L 15.4 Standing heel and toe raises: Pt is not able to raise toes up, and she is able to raise heels holding onto the walker Sit to stand: on stand on second attempt with use of her arms. Tinetti 12 Balance/Special Test Scores Tinetti Balance Score: 6 Tinetti Gait Score: 6 Tinetti Balance & Gait Score: 12 Lower Extremity Functional Score: 34 Goals Goal 1:: I HEP Goal Time Frame: 6-8 Weeks Goal 2:: Increase balance (Tinetti was 12 on eval) Goal Time Frame: 6-8 Weeks Goal 3:: Be able to walk with more heel to toe gait pattern Goal Time Frame: 6-8 Weeks Goal 4:: Sit to stand on first attempt with 1 UE support Goal Time Frame: 6-8 Weeks Rehabilitation Potential Rehabilitation Potential: Fair Anticipated Interventions Patient/Client Instruction: Educate patient on: Condition and Plan of Care For the Purpose of:: To improve muscle performance and motor function, To improve ability to perform ADL's, To increase tolerance to activity/condition/position, To improve performance and independence with ADL's, To decrease level of supervision to perform tasks, To improve ability of physical actions for home/community/work/leisure, To improve gait and locomotor functions, To decrease soft tissue restriction, To increase flexibility/ROM, To improve endurance, To improve balance and To improve safety with gait Therapeutic Exercise to Include: Strength training, Endurance training, Balance training, Body mechanics, Postural training, Flexibilty training, Gait and locomotor training, Active ROM and Dynamic Lumbar Stabilization For the Purpose of:: To improve muscle performance and motor function, To improve ability to perform ADL's, To increase tolerance to activity/condition/position, To improve performance and independence with ADL's, To decrease level of supervision to perform tasks, To improve ability of physical actions for home/community/work/leisure, To improve gait and locomotor functions, To improve health of tissue, To decrease soft tissue restriction, To increase flexibility/ROM, To improve endurance, To improve balance and To improve safety with gait Functional Training to Include: Gait training For the Purpose of:: To improve gait and locomotor functions and To improve safety with gait Text: Thank you for the opportunity to evaluate your patient. For Medicare and Medicare HMO plans, please review the plan of care and approve it. It will need to be FAXED BACK to us at [phone] for Medicare purposes. For Medicare only, by signing this I certify the plan of care. Please let me know if there are questions or concerns regarding this plan of care. Physician Signature: Date:
--- NOTE | 2025-04-28 14:03 | HP.PTDCSUM ---
Discharge Summary D/C summary: It has been my pleasure to treat YUNG HERNANDEZ referred by Dr. Sumit Whipple MD, with the diagnosis of freq falls, debility, PD for a total of 10 visit(s). Discharge Date: 04/28/25 Please see the following information for a summary of their discharge status. Subjective Subjective: Pt feels that she is doing pretty good. She still gets winded after several exercises. She has not told her Dr about being winded but has a Dr appt at the end of the month. She has not fallen and not been close to falling. She is able to get in and out of her chair, tub, car and toilet ok. She uses the walker all the time. Pain Tailbone: Pain Intensity (Out of 10): 1 Overall Improvement % Improvement: 50 Objective Objective/Function: Sit to stand: Able to get up on first attempt with B UE supports. Gait with heel to toe gait pattern Tinetti: 19 Goals Goal 1:: I HEP Goal Progress: Goal Met Goal 2:: Increase balance (Tinetti was 12 on eval) Goal Progress: Goal Met Goal 3:: Be able to walk with more heel to toe gait pattern Goal Progress: Goal Met Goal 4:: Sit to stand on first attempt with 1 UE support Goal Progress: Goal Met Plan Plan: DC PT to HEP D/C Information Discharge Comments: DC PT to HEP d/c sentence: If there are questions or concerns regarding this patient's physical therapy, please feel free to call me at [phone]. Thank you for the referral of this patient. Sincerely, Alyson Leal, MPT Balance/Gait/Functional tests Balance/Special Test Scores Tinetti Balance Score: 10 Tinetti Gait Score: 9 Tinetti Balance & Gait Score: 19 Lower Extremity Functional Score: 41 Improvement % Improvement: 50
== END 2025-04-28 19:00 | disposition home or self-care (01) ==
LOC: PT 13:30
PROVIDERS: PCP Family Medicine Geriatric Medicine; Referring Provider Family Medicine Geriatric Medicine; Visit Provider Family Medicine Geriatric Medicine
DX: G20.A1 Parkinson's disease without dyskinesia, without mention of fluctuations (principal); R29.6 Repeated falls; Z91.81 History of falling; R53.81 Other malaise
CPT/HCPCS: 97110; 97161; 97530

== ENCOUNTER → 2025-05-26 | Outpatient (CLI) | payer MEDICARE, BC, SELFPAY ==
[2025-05-26 15:27] LABS: Hematocrit 41.0 % (37-47); Hemoglobin 13.0 g/dL (12.0-15.0); Immature Granulocytes Count 0.020 X10^3/uL (0.0-0.0); Mean Corp Hgb Conc 31.7 g/dL (32-36); Mean Corpuscular Volume 81.0 fL (81-99); Mean Platelet Vol. 9.3 fl (6.2-12.0); NRBC Flagged by Analyzer 0 % (0-5); Platelet Count 393 K/mm3 (150-450); RBC Distribution Width CV 15.5 % (11.6-14.6); RBC Distribution Width SD 45.6 fl (35.1-43.9); Red Blood Count 5.06 M/mm3 (4.2-5.4); White Blood Count 8.4 K/mm3 (4.4-11.0)
[2025-05-26 16:21] LABS: AST(SGOT) 16 U/L (<=31); Alanine Aminotransfer ALT/SGPT 11 U/L (<=34); Albumin, Serum 4.2 g/dL (3.4-4.8); Alkaline Phosphatase 70 U/L (35-104); Anion Gap 15 (5-15); BUN 15 mg/dL (4-19); BUN/Creat Ratio 15.4 RATIO (10-20); Calcium,Total 10.0 mg/dL (7.6-11.0); Carbon Dioxide 23.7 mmol/L (21.0-32.0); Chloride 99 mmol/L (98-108); Globulin 3.1 g/dL (2.2-4.2); Glucose 170 mg/dL (70-99); Potassium 4.6 mmol/L (3.3-5.1); Vitamin D,25 Hydroxy 47.1 ng/mL (30-100)
[2025-05-26 23:05] LABS: Xtra Tube Kwok EXTRA TUBE
== END | disposition home or self-care (01) ==
LOC: POLAB3 15:05
PROVIDERS: PCP Family Medicine Geriatric Medicine; Visit Provider Family Medicine Geriatric Medicine
DX: I10 Essential (primary) hypertension (principal); E03.9 Hypothyroidism, unspecified; E55.9 Vitamin D deficiency, unspecified
CPT/HCPCS: 36415; 80053; 82306; 84443; 85025

== ENCOUNTER → 2025-05-28 | Outpatient (CLI) | payer MEDICARE, BC, SELFPAY | END | disposition home or self-care (01) | LOC: SL 13:41 | PROVIDERS: PCP Family Medicine Geriatric Medicine; Referring Provider Nurse Practitioner Family; Visit Provider Nurse Practitioner Family | DX: Z00.00 Encounter for general adult medical examination without abnormal findings (principal) ==

== ENCOUNTER → 2025-06-17 | Outpatient (CLI) | payer MEDICARE, BC, SELFPAY | END | disposition home or self-care (01) | LOC: PSN 12:39 | PROVIDERS: PCP Family Medicine Geriatric Medicine; Referring Provider Nurse Practitioner Family; Visit Provider Nurse Practitioner Family | DX: R06.02 Shortness of breath (principal) | CPT/HCPCS: 94060; 94726; 94729 ==

== ENCOUNTER → 2025-07-30 | Outpatient (CLI) | payer MEDICARE, BC, SELFPAY ==
[2025-07-30 13:01] VITALS: PULSE 76; PULSE 82; PULSE 85; PULSE 92; PULSE 93; PULSE 94; PULSE 95; PULSE 99; O2SAT 94; O2SAT 95; O2SAT 97; O2SAT 98
--- NOTE | 2025-08-03 10:48 | PCM.PSN.6M ---
PSN 6 Minute Walk Test 6 Minute Walk Test 6 Minute Walk Test: 6 Minute Walk Test PSN:6-Minute Walk Test Start: 07/30/25 13:23 Freq: Status: Active Protocol: [id number] Document 07/30/25 13:01 [facility] (Rec: 07/30/25 13:26 [facility]B [id number]) 6 Minute Walk Test Date Performed 07/30/25 Time Performed 13:01 Height 5 ft 8 in Weight: 190 lb Weight in Pounds 190.[address]: Daphne Mccormick FIO2 (% Oxygen) 21 Assistive device Walker used: Pre-test Oxygen Delivery Room Air Method Pulse Ox (%) 94 Pulse Rate (60-100 76 beats/min) Dyspnea Amanda Scale ( 1 0-10) Exertion Amanda Scale 7 (6-20) Number of Rests 0 Taken 1st minute Oxygen Delivery Room Air Method Pulse Ox (%) 97 Pulse Rate (60-100 85 beats/min) 2nd minute Oxygen Delivery Room Air Method Pulse Ox (%) 98 Pulse Rate (60-100 99 beats/min) 3rd minute Oxygen Delivery Room Air Method Pulse Ox (%) 98 Pulse Rate (60-100 93 beats/min) 4th minute Oxygen Delivery Room Air Method Pulse Ox (%) 98 Pulse Rate (60-100 92 beats/min) 5th minute Oxygen Delivery Room Air Method Pulse Ox (%) 98 Pulse Rate (60-100 94 beats/min) Reported Symptoms Increased Work of Breathing 6th minute Oxygen Delivery Room Air Method Pulse Ox (%) 98 Pulse Rate (60-100 95 beats/min) Dyspnea Amanda Scale ( 6 0-10) Exertion Amanda Scale 12 (6-20) Number of Rests 0 Taken Reported Symptoms Increased Work of Breathing Post-test Oxygen Delivery Room Air Method Pulse Ox (%) 95 Pulse Rate (60-100 82 beats/min) Full Laps Walked 12 Partial Lap, Number 0 of Tiles Walked Total Distance 708 Walked (ft) Interpretation Interpretation: The patient ambulated 708 feet over the course of 6 minutes beginning on room air with the use of a walker. Pretesting oxygen saturation was noted to be 94% on room air. With ambulation, the ravin oxygen saturation was 97%. Although there was evidence of impaired walk distance, there was no significant exertional oxygen desaturation. Recommendations Recommendations: There is no indication for the use of supplemental oxygen at this time.
== END | disposition home or self-care (01) ==
LOC: PSN 12:53
PROVIDERS: PCP Family Medicine Geriatric Medicine; Referring Provider Nurse Practitioner Family; Visit Provider Nurse Practitioner Family
DX: R06.02 Shortness of breath (principal)
CPT/HCPCS: 94618

== ENCOUNTER → 2025-08-11 | Outpatient (CLI) | payer MEDICARE, BC, SELFPAY | END | disposition home or self-care (01) | LOC: SL 13:48 | PROVIDERS: PCP Family Medicine Geriatric Medicine; Referring Provider Nurse Practitioner Family; Visit Provider Nurse Practitioner Family | DX: G47.33 Obstructive sleep apnea (adult) (pediatric) (principal) | CPT/HCPCS: 98960; G0463 ==